=== PATIENT | male | born 1970 | race Caucasian/White ===

== ENCOUNTER 2020-01-05 16:53 | Emergency (ER) | payer OTHER, SELFPAY ==
[2020-01-05 17:39] VITALS: BP 151/90; PULSE 88; RESP 16; TEMP 36.8; O2SAT 100
[2020-01-05 17:59] VITALS: BP 151/90; PULSE 88; RESP 16; TEMP 36.8; O2SAT 100; BMI 43.7
--- NOTE | 2020-01-05 19:03 | XR_ITS ---
EXAMINATION: XR KNEE, RIGHT CLINICAL INFORMATION: Fall. COMPARISON: Right knee 05/31/2018 TECHNIQUE: Two views of the right knee. FINDINGS: No fracture. No dislocation. There is fullness in the suprapatellar area suggestive of a joint effusion. There is tricompartment degenerative change of joint narrowing and marginal bone spurs similar in severity to prior study of 05/31/2018. XR/XR knee RT 2V IMPRESSION: 1. No acute osseous abnormality. 2. Tricompartment degenerative joint disease. 3. Probable Joint effusion.
--- NOTE | 2020-01-05 19:03 | XR_ITS ---
EXAMINATION: XR ANKLE, RIGHT CLINICAL INFORMATION: Pain status post fall COMPARISON: None TECHNIQUE: AP, lateral, and mortise views of the right ankle. FINDINGS: The ankle mortise is intact. On the mortise view, there is a tiny triangular osseous fragment along the inferior aspect of the medial malleolus which may represent a tiny avulsion fracture, correlate with physical exam. No joint effusion. Small plantar calcaneal spur. XR/XR ankle RT min 3V IMPRESSION: Along the inferior aspect of the medial malleolus there is a tiny triangular osseous fragment which may be acute avulsion fragment versus a chronic change. Correlate with physical exam.
--- NOTE | 2020-01-05 19:03 | XR_ITS ---
EXAMINATION: XR KNEE, LEFT CLINICAL INFORMATION: Pain status post fall COMPARISON: 05/31/2018 TECHNIQUE: Two views of the left knee. FINDINGS: No displaced fracture. There aren't moderate to severe degenerative changes in the left knee. Severe cartilage space loss in the medial tibiofemoral compartment. Large bulky osteophytes in the patellofemoral compartment and medial compartment. There is tibial spine spurring. Suspect a suprapatellar effusion. XR/XR knee LT 2V IMPRESSION: Moderate to severe degenerative change in the left knee. No acute process.
--- NOTE | 2020-01-05 20:01 | ED.LOWEXIN ---
HPI - Extremity Injury (Lower) General Chief Complaint: Extremity Injury, Lower Stated Complaint: LEG SWELLING Time Seen by Provider: 01/05/20 19:03 Source: patient Mode of arrival: ambulatory Limitations: no limitations History of Present Illness HPI Narrative: states he had a mechanical fall about 1 week ago where he landed on both of his knees and since then he has had slightly more knee pain which he has chronic knee pain from arthritis as well he also has right ankle pain with slight swelling as well. States he has been walking on it but hurts to put weight on the right ankle. He otherwise denies any injury. States fall occurred due to a slip and fall. MD complaint: knee injury and ankle injury Onset (ago): day(s) Injury: Right: knee and ankle Place: home Severity: mild Relieving factors: immobilization Exacerbating factors: weight bearing and movement Context: fall Other symptoms: none Related Data Previous Rx's Medication Instructions Recorded lisinopril 30 mg tablet 30 mg PO DAILY 30 Days #30 tab 12/18/19 Allergies Allergy/AdvReac Type Severity Reaction Status Date / Time penicillamine Allergy Unknown Verified 10/22/19 00:00 penicillin V Allergy Unknown Verified 08/21/19 00:00 Penicillins [PENICILLINS] Allergy Unknown RASH Unverified 11/27/19 19:37 Review of Systems Review of Systems: Constitutional: No Weight loss, No Fever, No Chills, No Night Sweats, No Fatigue, No Malaise ENT/Mouth: No Hearing loss, No Ear Pain, No Nasal Congestion, No Sinus Pain, No Hoarseness, No sore throat, No Rhinorrhea, No Swallowing Difficulty Eyes: No Eye Pain, No Swelling, No Redness, No Foreign Body, No Discharge, No Vision Changes Cardiovascular: No Chest Pain, No SOB, No Dyspnea on Exertion, No Orthopnea, No Edema Respiratory: No Cough, No Sputum, No Wheezing, No Smoke Exposure, No Dyspnea Musculoskeletal: as noted Skin: No Skin Lesions, No rash Neuro: No Weakness, No Numbness, No Paresthesias, No Loss of Consciousness, No Dizziness, No Headache Psych: No Anxiety/Panic Heme/Lymph: No Bruising, No Bleeding,No Lymphadenopathy Endocrine: No Polyuria, No Polydipsia, No Temperature Intolerance Yes all other systems are reviewed and are negative PMFSH Past Medical History Attestation statement: The following information was validated with the patient. Medical History (Updated 10/26/20 @ 20:42 by Perry Alicia NP) BMI 40.0-44.9, adult Essential hypertension Morbid obesity due to excess calories Type 2 diabetes mellitus with hyperglycemia Social History Social History Smoking Status: Current some day smoker Substance Use Type: Marijuana Advance Directives: No Advance Directives Information Provided: No Physical Exam Vital Signs: Vital Signs: Vital Signs Temp Pulse Resp BP Pulse Ox 01/05/20 17:59 98.3 F 88 16 151/90 H 100 01/05/20 17:39 98.3 F 88 16 151/90 H 100 Body Mass Index 43.7 reviewed Const: General: cooperative and healthy appearing; No acute distress or intoxicated appearing Nutritional Appearance: average body habitus Orientation/consciousness: patient oriented x3 HENMT: Head: Yes normal to inspection Ears: hearing grossly normal bilaterally Eyes: General: appearance normal, both eyes and all related structures Visual Roblero: normal visual roblero by confrontation Neck: Neck: Yes normal visual inspection and No tender Thyroid: Thyroid normal Chest: Chest palpation & inspection: normal inspection of the chest Resp: Effort & Inspection: normal respiratory effort : General: Yes no CVA tenderness Back/Spine/Pelvis: Back: no CVA tenderness Skin: General skin exam: no rashes or lesions noted Neuro: General: patient oriented x3 Extrem: General: Yes normal to inspection Ankle/foot/toe images: 1. Slight tender palpation/swelling Course Course Course Narrative: has crutches at home declined agreeable to orthopedic boot will follow-up with orthopedics/ PCP for repeat x-ray of the right ankle. Discharge Plan Discharge Clinical Impression: Fall, Ankle fracture Patient Disposition: Home, Self-Care Additional Instructions: partial weight-bearing as tolerated Wear supportive boot as provided have repeat x-ray 3 primary care doctor or Orthopedics in 1 week of right ankle Follow-up with orthopedic as discussed Follow up with primary care doctor as discussed Return if any concerns or worsening symptoms Thank you Prescriptions: No Action lisinopril 30 mg tablet 30 mg PO DAILY 30 Days Qty: 30 RF: 0 Referrals: Marcelo Arroyo MD [Physician] - 1 week
== END 2020-01-05 20:56 | disposition home or self-care (01) ==
PROVIDERS: Emergency Provider Internal Medicine; PCP Internal Medicine
DX: S82.891A Other fracture of right lower leg, initial encounter for closed fracture (principal); M25.571 Pain in right ankle and joints of right foot; R60.0 Localized edema; W01.0XXA Fall on same level from slipping, tripping and stumbling without subsequent striking against object, initial encounter; Y93.9 Activity, unspecified; Y92.009 Unspecified place in unspecified non-institutional (private) residence as the place of occurrence of the external cause; Y99.9 Unspecified external cause status; Z79.899 Other long term (current) drug therapy; F17.200 Nicotine dependence, unspecified, uncomplicated; Z71.6 Tobacco abuse counseling; F12.90 Cannabis use, unspecified, uncomplicated
CPT/HCPCS: 73560; 73610; 99283

== ENCOUNTER → 2020-01-09 14:13 | Outpatient (BNVA) | payer OTHER, SELFPAY | PROVIDERS: PCP Internal Medicine; Referring Provider Internal Medicine; Visit Provider Nurse Practitioner Gerontology | DX: E11.65 Type 2 diabetes mellitus with hyperglycemia (principal); I10 Essential (primary) hypertension; E66.01 Morbid (severe) obesity due to excess calories; Z68.41 Body mass index [BMI] 40.0-44.9, adult; Z79.4 Long term (current) use of insulin | CPT/HCPCS: 99212 ==

== ENCOUNTER 2020-03-15 20:42 | Emergency (ER) | payer OTHER, SELFPAY ==
[2020-03-15 21:12] VITALS: BP 183/76; PULSE 95; RESP 18; TEMP 36.3; O2SAT 97
[2020-03-15 21:17] LABS: Glucose, Whole Blood 275 mg/dL (60-115)
[2020-03-15 21:24] VITALS: BP 183/76; PULSE 95; RESP 18; TEMP 36.3; O2SAT 97; BMI 41.8
[2020-03-15 21:39] LABS: Appearance Urine CLEAR; Color Urine YELLOW; Glucose Urine UA 500 MG/DL (NEG); Leukocyte Esterase Urine NEG (NEG); Nitrite Urine NEG (NEG); PH 7.5 (5.0-8.0); Urine Blood NEG (NEG); Urine Ketones NEG (NEG); Urine Protein NEG (NEG-TRACE)
--- NOTE | 2020-03-15 21:42 | ED_ITS ---
HPI - Psych General Chief Complaint: Psychiatric Symptoms Stated Complaint: crisis Time Seen by Provider: 03/15/20 21:24 Source: patient History of Present Illness HPI Narrative: This is a 49-year-old male who states that he has been living with his girlfriend for couple of years and she intermittently kicks him out. The last time she came out was today and he states that he does not want to live and states that he is suicidal and his plan would be to jump off of a bridge. Otherwise, he denies any, chills, GI symptoms, symptoms. Related Data Home Medications Medication Instructions Recorded Confirmed amlodipine 5 mg tablet 5 mg PO DAILY 01/09/20 03/15/20 atorvastatin 40 mg tablet 40 mg PO BEDTIME 01/09/20 03/15/20 escitalopram oxalate 20 mg tablet 20 mg PO DAILY 01/09/20 03/15/20 insulin glargine 100 unit/mL (3 30 unit SUBCUT DAILY ml 01/09/20 03/15/20 mL) subcutaneous pen lancets 28 gauge #100 ea 01/09/20 01/28/20 oxybutynin chloride 15 mg 15 mg PO DAILY 01/09/20 03/15/20 tablet,extended release 24 hr pen needle, diabetic 31 gauge x #50 ea 01/09/20 01/28/2005/25 Previous Rx's Medication Instructions Recorded blood sugar diagnostic #100 ea 01/09/20 dulaglutide 0.75 mg/0.5 mL 0.75 mg SUBCUT QWEEK #2 ml 01/09/20 subcutaneous pen injector metformin 1,000 mg tablet 1,000 mg PO BID #60 tab 01/09/20 hydroxyzine HCl 25 mg tablet 25 mg PO TID #90 tab 01/24/20 lisinopril 30 mg tablet 30 mg PO DAILY #30 tab 01/24/20 albuterol sulfate 90 mcg/actuation 2 puff INHALATION Q8H PRN 30 Days 01/28/20 aerosol inhaler #8.5 g tamsulosin 0.4 mg capsule 0.4 mg PO DAILY #30 cap 01/29/20 diclofenac sodium 1 % topical gel 2 g TOPICAL QID #100 g 02/17/20 lidocaine 5 % topical patch 2 patch TOPICAL Q12H PRN 30 Days 02/27/20 #60 ea tramadol 50 mg tablet 50 mg PO TID PRN 30 Days #90 tab 02/27/20 zolpidem 10 mg tablet 10 mg PO BEDTIME PRN 30 Days #30 02/27/20 tab Allergies Allergy/AdvReac Type Severity Reaction Status Date / Time Penicillins [PENICILLINS] Allergy Unknown RASH Verified 02/27/20 18:03 Review of Systems Review of Systems: Pertinent positives and negatives stated in HPI 10 point review of systems otherwise negative. [facility] Past Medical History Source: nursing notes reviewed Medical History Anxiety Arthritis Asthma Benign essential hypertension BPH (benign prostatic hyperplasia) Family history of thyroid disorder Insomnia Morbid obesity with BMI of 40.0-44.9, adult Overactive bladder Primary osteoarthritis of both knees Seizure Type 2 diabetes mellitus with hyperglycemia Surgical History No history of previous surgery Family History Family History Father ETOH abuse Mother Diabetes Arthritis of knee Hypertension Social History Social History Household Members: Significant Other Alcohol intake: former Smoking Status: Former smoker Smoked in Last 30 Days: No Use of substances other than those prescribed or required for medical reasons: Yes Substance Use Type: Marijuana Substance Use Frequency: Occasionally Advance Directives: No Physical Exam Vital Signs: Vital Signs: Last Vital Signs Temp 98.1 F 03/16/20 00:00 Pulse 83 03/16/20 00:00 Resp 18 03/16/20 06:00 BP 151/64 H 03/16/20 00:00 Pulse Ox 96 03/16/20 00:00 Body Mass Index 41.8 VITAL SIGNS: Reviewed. GENERAL: Well developed, well nourished, in no acute distress. LUNGS: Normal breath sounds. No adventitious sounds or accessory muscle use. SpO2<96> CARDIOVASCULAR: Regular rate and rhythm without noted murmurs, no JVD or lower extremity edema. ABDOMEN: Soft, non-tender, non-distended with bowel sounds. No rigidity. No guarding. No palpable masses or hernias noted NEUROLOGIC: Alert and oriented x 4. PSYCH: Normal affect, logical process Course Course Course Narrative: This is a 49-year-old male with history and clinical presentation consistent mild depression and thoughts suicidal ideation but felt that this might be situational. He is noted to be hyperglycemic and will evaluate for evidence of DKA or underlying infection. On review of all investigations there is no evidence of infection, DKA, or HHS. Patient is medically clear for further evaluation by the behavioral team. Behavioral health states that patient denying suicidal ideation if he is able to go to respite care. In addition, they plan to provide him with outpatient referrals to assist him in obtaining SSI. He has made no suicidal attempts in the past. Sign out to GHULAM Chauhan. MDM - Psych Restraints Face to Face Assessment: Face to Face Assessment: Current Situation: After assessment of the patient, a review of the pertinent medical record and a discussion with nursing staff, I feel the patient requires a restrain intervention. Reaction To: [] Medical Condition: [] Behavioral State: [] Continued Need: [] Lab Data Result diagrams: 03/15/20 22:38 03/15/20 22:38 Labs: Lab Results 03/15/20 03/15/20 03/15/20 Range/Units 21:08 21:19 21:33 WBC (4.8-10.8) X10*3/uL RBC (4.60-5.80) X10*6/uL Hgb (14.0-18.0) g/dl Hct (42-52) % MCV (80-98) fL MCH (27.0-33.0) pg MCHC (31.0-36.0) g/dl RDW (11.0-16.0) % Plt Count (160-400) X10*3/uL MPV (9.4-12.4) fL Immature Gran % (Auto) (0.0-0.4) % Neut % (Auto) (45-73) % Lymph % (Auto) (20-40) % [place] % (Auto) (2-11) % Eos % (Auto) (0-4) % Baso % (Auto) (0-2) % Lymph # (Auto) (1.2-4.9) X10*3/uL [place] # (Auto) (0.1-1.2) X10*3/uL Eos # (Auto) (0.0-0.4) X10*3/uL Baso # (Auto) (0.0-0.2) X10*3/uL Abs Immat Gran (auto) (0.00-0.03) X10*3/uL Absolute Neuts (auto) (2.0-8.3) X10*3/uL Absolute Nucleated RBC (0.0-0.012) X10*3/uL Nucleated RBC % (auto) (0.0-0.2) /100WBC Sodium (135-145) mmol/L Potassium (3.3-5.1) mmol/l Chloride (96-108) mmol/L Carbon Dioxide (22-29) mmol/L Anion Gap (12-20) BUN (9-16) mg/dL Creatinine (0.5-1.4) mg/dL Estim Creat Clear Calc Estimated GFR POC Glucose 275 H (60-115) mg/dL Random Glucose (60-115) mg/dL Calcium (8.4-10.2) mg/dL Total Bilirubin (0.0-1.0) mg/dL AST (5-37) U/L ALT (0-40) U/L Alkaline Phosphatase (39-117) U/L Total Protein (6.5-8.0) g/dL Albumin (3.5-5.0) g/dL Urine Color YELLOW Urine Appearance CLEAR Urine pH 7.5 (5.0-8.0) Ur Specific [place] 1.020 (1.005-1.025) Urine Protein NEG (NEG-TRACE) MG/DL Urine Glucose (UA) 500 H (NEG) MG/DL Urine Ketones NEG (NEG) MG/DL Urine Blood NEG (NEG) Urine Nitrite NEG (NEG) Ur Leukocyte Esterase NEG (NEG) Urine Opiates Screen Not Detected (Not Detect) Ur Barbiturates Screen Not Detected (Not Detect) Ur Phencyclidine Scrn Not Detected (Not Detect) Ur Amphetamines Screen Not Detected (Not Detect) U Benzodiazepines Scrn Not Detected (Not Detect) Urine Cocaine Screen Not Detected (Not Detect) U Marijuana (THC) Screen POSITIVE H (Not Detect) Acetone, Qual (Negative) COVID-19 (DG) (Negative) COVID-19 Clin Com 03/15/20 03/15/20 03/16/20 Range/Units 22:38 22:38 04:14 WBC 7.9 (4.8-10.8) X10*3/uL RBC 4.50 L (4.60-5.80) X10*6/uL Hgb 13.6 L (14.0-18.0) g/dl Hct 40.1 L (42-52) % MCV 89.1 (80-98) fL MCH 30.2 (27.0-33.0) pg MCHC 33.9 (31.0-36.0) g/dl RDW 11.9 (11.0-16.0) % Plt Count 276 (160-400) X10*3/uL MPV 10.2 (9.4-12.4) fL Immature Gran % (Auto) 0.4 (0.0-0.4) % Neut % (Auto) 81.3 H (45-73) % Lymph % (Auto) 11.9 L (20-40) % [place] % (Auto) 5.8 (2-11) % Eos % (Auto) 0.3 (0-4) % Baso % (Auto) 0.3 (0-2) % Lymph # (Auto) 0.9 L (1.2-4.9) X10*3/uL [place] # (Auto) 0.5 (0.1-1.2) X10*3/uL Eos # (Auto) 0.0 (0.0-0.4) X10*3/uL Baso # (Auto) 0.0 (0.0-0.2) X10*3/uL Abs Immat Gran (auto) 0.03 (0.00-0.03) X10*3/uL Absolute Neuts (auto) 6.4 (2.0-8.3) X10*3/uL Absolute Nucleated RBC 0.000 (0.0-0.012) X10*3/uL Nucleated RBC % (auto) 0.0 (0.0-0.2) /100WBC Sodium 135 (135-145) mmol/L Potassium 4.5 (3.3-5.1) mmol/l Chloride 101 (96-108) mmol/L Carbon Dioxide 29 (22-29) mmol/L Anion Gap 10 L (12-20) BUN 14 (9-16) mg/dL Creatinine 1.04 (0.5-1.4) mg/dL Estim Creat Clear Calc 123.7 Estimated GFR > 60 POC Glucose (60-115) mg/dL Random Glucose 270 H (60-115) mg/dL Calcium 9.2 (8.4-10.2) mg/dL Total Bilirubin 0.2 (0.0-1.0) mg/dL AST 39 H (5-37) U/L ALT 59 H (0-40) U/L Alkaline Phosphatase 84 (39-117) U/L Total Protein 6.9 (6.5-8.0) g/dL Albumin 4.0 (3.5-5.0) g/dL Urine Color Urine Appearance Urine pH (5.0-8.0) Ur Specific [place] (1.005-1.025) Urine Protein (NEG-TRACE) MG/DL Urine Glucose (UA) (NEG) MG/DL Urine Ketones (NEG) MG/DL Urine Blood (NEG) Urine Nitrite (NEG) Ur Leukocyte Esterase (NEG) Urine Opiates Screen (Not Detect) Ur Barbiturates Screen (Not Detect) Ur Phencyclidine Scrn (Not Detect) Ur Amphetamines Screen (Not Detect) U Benzodiazepines Scrn (Not Detect) Urine Cocaine Screen (Not Detect) U Marijuana (THC) Screen (Not Detect) Acetone, Qual Negative (Negative) COVID-19 (DG) Negative (Negative) COVID-19 Clin Com See Note Discharge Plan Discharge Prescriptions: No Action hydroxyzine HCl 25 mg tablet 25 mg PO TID Qty: 90 RF: 2 lisinopril 30 mg tablet 30 mg PO DAILY Qty: 30 RF: 2 tamsulosin 0.4 mg capsule 0.4 mg PO DAILY Qty: 30 RF: 3 diclofenac sodium [Arthritis Pain (diclofenac)] 1 % gel 2 g topical QID Qty: 100 RF: 3 albuterol sulfate 90 mcg/actuation HFA aerosol inhaler 2 puff inhalation Q8H PRN (Reason: bronchospasm) 30 Days Qty: 8.5 RF: 0 tramadol 50 mg tablet 50 mg PO TID PRN (Reason: pain) 30 Days Qty: 90 RF: 2 zolpidem 10 mg tablet 10 mg PO BEDTIME PRN (Reason: insomnia) 30 Days Qty: 30 RF: 2 lidocaine 5 % adhesive patch,medicated 2 patch topical Q12H PRN (Reason: pain) 30 Days Qty: 60 RF: 2 escitalopram oxalate 20 mg tablet 20 mg PO DAILY RF: 0 oxybutynin chloride 15 mg tablet extended release 24hr 15 mg PO DAILY RF: 0 (DME) lancets 28 gauge misc See Rx Instructions lancet topical TID Qty: 100 RF: 0 (DME) pen needle, diabetic 31 gauge x 3/16 needle See Rx Instructions ea subcut .MEDSUPPLY Qty: 50 RF: 0 atorvastatin 40 mg tablet 40 mg PO BEDTIME RF: 0 amlodipine 5 mg tablet 5 mg PO DAILY RF: 0 insulin glargine 100 unit/mL (3 mL) insulin pen 30 unit subcut DAILY RF: 0 dulaglutide 0.75 mg/0.5 mL pen injector 0.75 mg subcut QWEEK Qty: 2 RF: 3 (DME) FreeStyle Lite Strips Strip See Rx Instructions .ROUTE .MEDSUPPLY Qty: 100 RF: 11 metformin 1,000 mg tablet 1,000 mg PO BID Qty: 60 RF: 3
[2020-03-15 22:20] LABS: Amphetamine Screen Urine Not Detected (Not Detect); Barbiturates, Urine Not Detected (Not Detect); Benzodiazepines Screen Urine Not Detected (Not Detect); Cannabinoid Screen Urine POSITIVE (Not Detect); Cocaine Screen Urine Not Detected (Not Detect); Opiate Screen Urine Not Detected (Not Detect); Phencyclidine Screen Urine Not Detected (Not Detect)
[2020-03-15 22:51] LABS: Basophils Percent Auto 0.3 % (0-2); Eosinophils Percent Auto 0.3 % (0-4); Hematocrit 40.1 % (42-52); Hemoglobin 13.6 g/dl (14.0-18.0); Imm Gran Abs Auto 0.03 X10*3/uL (0.00-0.03); Imm Gran Pct Auto 0.4 % (0.0-0.4); Lymphocytes Absolute Auto 0.9 X10*3/uL (1.2-4.9); Lymphocytes Percent Auto 11.9 % (20-40); MANUAL DIFF FLAG NO; Mean Corpuscular HGB Conc 33.9 g/dl (31.0-36.0); Mean Corpuscular Hemoglobin 30.2 pg (27.0-33.0); Mean Corpuscular Volume 89.1 fL (80-98); Mean Platelet Volume 10.2 fL (9.4-12.4); Monocytes Absolute Auto 0.5 X10*3/uL (0.1-1.2); Monocytes Percent Auto 5.8 % (2-11); Neutrophils Absolute Auto 6.4 X10*3/uL (2.0-8.3); Neutrophils Percent Auto 81.3 % (45-73); Platelet Count 276 X10*3/uL (160-400); Red Cell Distribution Width 11.9 % (11.0-16.0); White Blood Count 7.9 X10*3/uL (4.8-10.8)
[2020-03-15 23:27] LABS: Alanine Aminotransferase 59 U/L (0-40); Alkaline Phosphatase 84 U/L (39-117); Anion Gap 10 (12-20); Aspartate Amino Transferase 39 U/L (5-37); Bilirubin Total 0.2 mg/dL (0.0-1.0); Blood Urea Nitrogen 14 mg/dL (9-16); Calcium 9.2 mg/dL (8.4-10.2); Carbon Dioxide 29 mmol/L (22-29); Chloride 101 mmol/L (96-108); Creatinine Clr Calc Pharmacy 123.7; Estimated Glomerular Filt Rate > 60; Glucose Random 270 mg/dL (60-115); Potassium 4.5 mmol/l (3.3-5.1); Sodium 135 mmol/L (135-145); Total Protein 6.9 g/dL (6.5-8.0)
--- NOTE | 2020-03-15 23:29 | PC.NURSE ---
MARIANNE faxed and called.
[2020-03-16] VITALS: BP 151/64; PULSE 83; RESP 18; TEMP 36.7; O2SAT 96
[2020-03-16 00:15] LABS: Acetone, serum QL Negative (Negative)
--- NOTE | 2020-03-16 02:22 | PC.NURSE ---
PT seen by MARIANNE. MARIANNE determined that this PT would be a good candidate for respite level of care. 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
[2020-03-16 04:35] LABS: COVID-19 Test Negative (Negative); IDNOW Serial# 9DD0AD1C
[2020-03-16 06:00] VITALS: RESP 18
--- NOTE | 2020-03-16 07:14 | PC.NURSE ---
Report recieved. PT currently sleeping, respirations even and unlabored, in no apparent distress. Pt to go to respite this morning.
[2020-03-16 09:05] LABS: Glucose, Whole Blood 245 mg/dL (60-115)
[2020-03-16 09:10] VITALS: BP 123/50; PULSE 77; RESP 18; TEMP 36.6; O2SAT 97
[2020-03-16] MEDS: Insulin Glargine,Hum.rec.anlog 100 UNIT/ML 10 ML VIAL 30 UNIT SUBCUT (09:22)
--- NOTE | 2020-03-16 09:50 | PC.NURSE ---
Per [facility] respite will not accept PT so PT will need to be re-assessed by [facility]. She also stated [place] and [place] been exposed to covid positive people.
[2020-03-16 09:55] VITALS: BP 123/50; PULSE 77
[2020-03-16] MEDS: lisinopriL 10 MG TABLET 30 MG PO (09:55)
[2020-03-16 09:56] VITALS: BP 123/50; PULSE 77
[2020-03-16] MEDS: amLODIPine Besylate 5 MG TABLET PO (09:56)
[2020-03-16] MEDS: metFORMIN HCl 1,000 MG TABLET 1000 MG PO (09:56)
[2020-03-16] MEDS: Escitalopram Oxalate 20 MG TABLET PO (09:56)
[2020-03-16] MEDS: hydrOXYzine HCL 25 MG TABLET PO (09:56)
[2020-03-16] MEDS: Tamsulosin HCL 0.4 MG CAPSULE PO (09:56)
== END 2020-03-16 15:41 | disposition home or self-care (01) ==
PROVIDERS: Emergency Provider Student in an Organized Health Care Education/Training Program
DX: F43.21 Adjustment disorder with depressed mood (principal); E11.65 Type 2 diabetes mellitus with hyperglycemia; Z20.828 Contact with and (suspected) exposure to other viral communicable diseases; I10 Essential (primary) hypertension; Z79.4 Long term (current) use of insulin; Z79.899 Other long term (current) drug therapy
CPT/HCPCS: 36415; 80053; 80307; 81003; 82009; 82947; 85025; 87635; 99285

== ENCOUNTER 2020-04-28 13:26 | Inpatient (IN) | payer OTHER, SELFPAY ==
[2020-04-28] VITALS (14 sets, daily range): BP systolic 133–197; BP diastolic 84–112; PULSE 95–176; RESP 12–20; TEMP 36.7–37.2; O2SAT 88–99; BMI 41.3
--- NOTE | 2020-04-28 | ECG_ITS ---
Test Reason : TACHYCARDIA Blood Pressure : / mmHG Vent. Rate : 159 BPM Atrial Rate : 174 BPM P-R Int : 000 ms QRS Dur : 088 ms QT Int : 294 ms P-R-T Axes : 000 070 -69 degrees QTc Int : 478 ms Atrial fibrillation with rapid ventricular response Possible Inferior infarct (cited on or before 10-NOV-2018) Abnormal ECG When compared with ECG of 28-APR-2020 13:53, Atrial fibrillation has replaced Sinus rhythm Vent. rate has increased BY [address] now depressed in Anterior leads Referred By: Alan Enriquez Electronically Signed By:Dwain Joseph
--- NOTE | ~2020-04-28 | XR_ITS ---
EXAMINATION: XR CHEST CLINICAL INFORMATION: Hyperglycemia COMPARISON: July 12, 2019 TECHNIQUE: 2 views of the chest were obtained. FINDINGS: No significant abnormality is noted involving the heart, lungs, mediastinum, bony thorax or soft tissues. XR/XR chest 2V IMPRESSION: No acute disease.
--- NOTE | 2020-04-28 13:44 | ECG_ITS ---
Test Reason : WEAKNESS Blood Pressure : / mmHG Vent. Rate : 098 BPM Atrial Rate : 098 BPM P-R Int : 136 ms QRS Dur : 098 ms QT Int : 336 ms P-R-T Axes : 009 047 -20 degrees QTc Int : 428 ms Normal sinus rhythm Cannot rule out Inferior infarct (cited on or before 10-NOV-2018) Abnormal ECG When compared with ECG of 12-JUL-2019 11:11, Sinus rhythm has replaced Atrial fibrillation ST no longer elevated in Lateral leads Referred By: Generic ED Physician Electronically Signed By:Dwain Joseph
[2020-04-28 13:59] LABS: Glucose, Whole Blood 595 mg/dL (60-115)
[2020-04-28] MEDS: 0.9 % Sodium Chloride 1,000 ML 999 ML IVCONT ×3 (14:11→17:25)
--- NOTE | 2020-04-28 14:16 | PC.NURSE ---
iv inserted, labs drawn, urine obtained, ekg performed, poc obtained, ivf hanging per order, monitor tech applied, pt nsr 90s, will continue to monitor.
[2020-04-28 14:20] LABS: Basophils Percent Auto 0.2 % (0-2); Hematocrit 43.8 % (42-52); Imm Gran Pct Auto 0.7 % (0.0-0.4); MANUAL DIFF FLAG SCAN; Mean Corpuscular HGB Conc 34.2 g/dl (31.0-36.0); Mean Corpuscular Hemoglobin 29.9 pg (27.0-33.0); Mean Corpuscular Volume 87.4 fL (80-98); Mean Platelet Volume 10.2 fL (9.4-12.4); Monocytes Absolute Auto 1.6 X10*3/uL (0.1-1.2); Monocytes Percent Auto 10.2 % (2-11); Neutrophils Absolute Auto 11.7 X10*3/uL (2.0-8.3); Neutrophils Percent Auto 75.9 % (45-73); Platelet Count 358 X10*3/uL (160-400); Red Blood Count 5.01 X10*6/uL (4.60-5.80); Red Cell Distribution Width 12.2 % (11.0-16.0); SCAN SMEAR FLAG 1; White Blood Count 15.4 X10*3/uL (4.8-10.8)
[2020-04-28 14:22] LABS: Glucose Urine UA >=1000 MG/DL (NEG); Leukocyte Esterase Urine NEG (NEG); Nitrite Urine NEG (NEG); PH 5.5 (5.0-8.0); Specific Gravity - Urine 1.015 (1.005-1.025); Urine Blood 2+ (NEG); Urine Ketones NEG (NEG); Urine Protein NEG (NEG-TRACE)
[2020-04-28 14:27] LABS: Appearance Urine CLEAR; Color Urine STRAW
[2020-04-28 14:35] LABS: RBC Urine 0-2 /HPF (0); WBC Urine 0-2 /HPF (0-4)
[2020-04-28 14:41] LABS: SLIDE REVIEW VERIFIED
[2020-04-28 14:48] LABS: Acetone, serum QL Negative (Negative); Ethanol < 10 mg/dL
[2020-04-28 14:50] LABS: Amphetamine Screen Urine Not Detected (Not Detect); Anion Gap 19 (12-20); Barbiturates, Urine Not Detected (Not Detect); Benzodiazepines Screen Urine Not Detected (Not Detect); Blood Urea Nitrogen 32 mg/dL (9-16); Calcium 9.6 mg/dL (8.4-10.2); Cannabinoid Screen Urine Not Detected (Not Detect); Carbon Dioxide 21 mmol/L (22-29); Chloride 92 mmol/L (96-108); Cocaine Screen Urine Not Detected (Not Detect); Creatinine Clr Calc Pharmacy 61.1; Estimated Glomerular Filt Rate 34; Glucose Random 607 mg/dL (60-115); Opiate Screen Urine POSITIVE (Not Detect); Phencyclidine Screen Urine Not Detected (Not Detect); Potassium 5.5 mmol/L (3.3-5.1); Sodium 126 mmol/L (135-145)
[2020-04-28 14:55] LABS: Troponin-I High Sensitivity 34.2 ng/L (<3.5-35.0)
[2020-04-28 14:56] LABS: Alanine Aminotransferase 54 U/L (0-40); Albumin Level 4.6 g/dL (3.5-5.0); Alkaline Phosphatase 101 U/L (39-117); Aspartate Amino Transferase 50 U/L (5-37); Bilirubin Direct 0.3 mg/dL (0.0-0.5); Bilirubin Total 0.8 mg/dL (0.0-1.0); Magnesium 2.4 mg/dL (1.6-2.6); Total Protein 7.8 g/dL (6.5-8.0)
[2020-04-28] MEDS: Insulin Regular, Human 100 UNIT/ML 3 ML VIAL 10 UNIT IVPUSH (15:13)
--- NOTE | 2020-04-28 15:19 | PC.NURSE ---
patient medicated per order, pt requesting food, will ask provider, vss, pt nsr on cardiac rehab nurse, will continue to monitor.
--- NOTE | 2020-04-28 15:42 | ED_ITS ---
HPI - Recheck/Abnormal Lab/Rx General Chief Complaint: General Medical <GHULAM Roa - Last Filed: 04/28/20 21:11> Stated Complaint: HIGH BLOOD SUGAR <GHULAM Roa - Last Filed: 04/28/20 21:11> Time Seen by Provider: 04/28/20 13:50 <GHULAM Roa - Last Filed: 04/28/20 21:11> Source: patient and EMS <GHULAM Roa Last Filed: 04/28/20 21:11> Mode of arrival: EMS <GHULAM Roa Last Filed: 04/28/20 21:11> Limitations: other (Poor historian and somnolence although easily arousable) <GHULAM Roa Last Filed: 04/28/20 21:11> History of Present Illness HPI narrative: 49-year-old male with a past medical history of diabetes type 2 currently on metformin b.i.d. and insulin, hypertension, seizure disorder, morbid obesity, asthma, insomnia, overactive bladder and arthritis presenting to the ED via EMS with complaints of generalized not feeling well with diaphoresis and excessive thirst today. Reports that he is currently homeless and he was waiting for a friend at the [facility] and they noticed that he was diaphoretic and c alled EMS. When EMS arrived they obtained a POC which was 503 and brought him here for further evaluation treatment. On exam patient is noted to be diaphoretic and somnolent although easily arousable. Reports that he has not slept in over 4 days and that is why he is so somnolent. Denies head injury or loss of consciousness. Denies any dizziness, headaches, nausea/vomiting, jaw pain, cough, sore throat, chest pain, shortness of breath, palpitations, paresthesias, abdominal pain, diarrhea, constipation, dysuria or hematuria or or any other symptoms complaints or concerns at this time. <GHULAM Roa - Last Filed: 04/28/20 21:11> MD complaint: abnormal lab (glucose ) <GHULAM Roa Last Filed: 04/28/20 21:11> Initial visit (ago): hour(s) (blade boner ) <GHULAM Roa Last Filed: 04/28/20 21:11> Related Data Home Medications: Home Medications Medication Instructions Recorded Confirmed amlodipine 5 mg tablet 5 mg PO DAILY 01/09/20 04/28/20 escitalopram oxalate 20 mg tablet 20 mg PO DAILY 01/09/20 04/28/20 insulin glargine 100 unit/mL (3 30 unit SUBCUT DAILY ml 01/09/20 04/28/20 mL) subcutaneous pen lancets 28 gauge #100 ea 01/09/20 01/28/20 pen needle, diabetic 31 gauge x #50 ea 01/09/20 01/28/2005/25 apixaban [Eliquis] 5 mg PO BID 04/28/20 04/28/20 buspirone 30 mg PO TID 04/28/20 04/28/20 diclofenac sodium 2 ea TOPICAL BID PRN 04/28/20 04/28/20 hydroxyzine HCl 25 mg PO TID PRN 04/28/20 04/28/20 lidocaine 2 patch TOPICAL DAILY PRN 04/28/20 04/28/20 metoprolol tartrate 50 mg PO BID 04/28/20 04/28/20 quetiapine 50 mg PO BEDTIME 04/28/20 04/28/20 Previous Rx's Medication Instructions Recorded blood sugar diagnostic #100 ea 01/09/20 dulaglutide 0.75 mg/0.5 mL 0.75 mg SUBCUT QWEEK #2 ml 01/09/20 subcutaneous pen injector metformin 1,000 mg tablet 1,000 mg PO BID #60 tab 01/09/20 lisinopril 30 mg tablet 30 mg PO DAILY #30 tab 01/24/20 tamsulosin 0.4 mg capsule 0.4 mg PO DAILY #30 cap 01/29/20 tramadol 50 mg tablet 50 mg PO TID PRN 30 Days #90 tab 02/27/20 albuterol sulfate 90 mcg/actuation 2 puff PO Q8H PRN 30 Days #8.5 g 03/19/20 aerosol inhaler zolpidem 10 mg tablet 10 mg PO BEDTIME PRN 30 Days #30 04/07/20 tab <GHULAM Roa - Last Filed: 04/28/20 21:11> Allergies/Adverse Reactions: Allergies Allergy/AdvReac Type Severity Reaction Status Date / Time Penicillins [PENICILLINS] Allergy Unknown RASH Verified 04/07/20 15:31 <GHULAM Roa - Last Filed: 04/28/20 21:11> Review of Systems Review of Systems: Constitutional : + diaphoresis, No Weight loss, No Fever, No Chills, No Night Sweats, No Fatigue, No Malaise ENT/Mouth : No Hearing loss, No Ear Pain, No Nasal Congestion, No Sinus Pain, No Hoarseness, No sore throat, No Rhinorrhea, No Swallowing Difficulty Eyes: No Eye Pain, No Swelling, No Redness, No Foreign Body, No Discharge, No Vision Changes Cardiovascular : No Chest Pain, No SOB, No Dyspnea on Exertion, No Orthopnea, No Edema, No Palpitations Respiratory : No Cough, No Sputum, No Wheezing, No Smoke Exposure, No Dyspnea Gastrointestinal : No Nausea, No Vomiting, No Diarrhea, No Constipation, No abdominal Pain, No Hematochezia, No Melena Genitourinary : + Urinary Frequency/urgency, no irregular bleeding, No Dysuria, No Hematuria, No Urinary Incontinence, No Flank Pain, No Urinary Flow Changes, No Hesitancy Musculoskeletal : No joint pain, No Myalgias, No Joint Swelling Skin : No Skin Lesions, No rash Neuro : + Gen Weakness, No Focal weakness, No Numbness, No Paresthesias, No Loss of Consciousness, No Dizziness, No Headache Psych : No Anxiety/Panic, No Depression, No SI/HI/AH/VH, No Social Issues, Heme/Lymph: No Bruising, No Bleeding,No Lymphadenopathy Endocrine : + Polyuria, + Polydipsia, No Temperature Intolerance <GHULAM Roa - Last Filed: 04/28/20 21:11> Yes all other systems are reviewed and are negative <GHULAM Roa - Last Filed: 04/28/20 21:11> [facility] Past Medical History Attestation statement: The following information was validated with the patient. <GHULAM Roa - Last Filed: 04/28/20 21:11> Medical History: Medical History Anxiety Arthritis Asthma Benign essential hypertension BPH (benign prostatic hyperplasia) Depression Diabetes Family history of thyroid disorder Insomnia Morbid obesity with BMI of 40.0-44.9, adult Overactive bladder Primary osteoarthritis of both knees Seizure Type 2 diabetes mellitus with hyperglycemia <GHULAM Roa - Last Filed: 04/28/20 21:11> Surgical History: Surgical History No history of previous surgery <GHULAM Roa - Last Filed: 04/28/20 21:11> Family History Family History: Family History Father ETOH abuse Mother Diabetes Arthritis of knee Hypertension <GHULAM Roa - Last Filed: 04/28/20 21:11> Social History Social History: Social History Household Members: Significant Other Alcohol intake: never Smoking Status: Never smoker Use of substances other than those prescribed or required for medical reasons: Yes Substance Use Type: Marijuana Last Used Substance: Days (ago) Advance Directives: No Advance Directives Information Provided: No service: No Current occupational status: unemployed <GHULAM Roa - Last Filed: 04/28/20 21:11> Physical Exam Vital Signs: Vital Signs: Last Vital Signs Temp 99.0 F 04/28/20 21:21 Pulse 176 H 04/28/20 22:24 Resp 18 04/28/20 22:24 BP 186/112 H 04/28/20 22:24 Pulse Ox 88 L 04/28/20 22:24 Body Mass Index 41.3 Vital signs have been reviewed as normal and appeared to be correct. Blood pressure hypertensive at 152/91. Heart rate tachycardic. Respiration rate normal. Temperature normal. Oxygen saturation normal. <GHULAM Roa - Last Filed: 04/28/20 21:11> Vital Signs: Last Vital Signs Temp 99.0 F 04/28/20 21:21 Pulse 176 H 04/28/20 22:24 Resp 18 04/28/20 22:24 BP 186/112 H 04/28/20 22:24 Pulse Ox 88 L 04/28/20 22:24 Body Mass Index 41.3 <Yemi Moody MD - Last Filed: 04/28/20 22:25> Appearance: Somnolence although easily arousable. Oriented X3. No acute distress. Head: Normal external exam. Normocephalic. Atraumatic. Able to rotate head bilaterally. Eyes: PERRLA. EOMI. No nystagmus noted. Conjunctiva and sclera normal. Eyelids normal. Corneal reflex normal. ENT: EAC normal. TM's Normal. Hearing normal. Pharynx normal. Uvula midline. tongue midline. Moist mucous membranes. No trismus noted. No drooling noted. No muffled voice noted. No nystagmus noted. Neck: Normal inspection. Neck supple. FROM. No adenopathy. Trachea midline. Thyroid Normal. No meningeal signs. No neck mass noted. CVS: Normal heart rate and rhythm. Heart sound normal. No murmurs noted. Pulses normal throughout. Respiratory: No respiratory distress. Painless inspiration. Breath sounds normal. No wheezes/rales/rhonchi noted. Chest nontender. No accessory muscle usage noted or decreased air movement noted. Abdomen: Soft and nontender. Bowel sounds normal in all 4 quadrants. No distention noted. No organomegaly noted. No visible injury noted. Back: No CVA tenderness. Full range of motion noted. Skin: Skin warm and dry. Normal skin color. Normal skin turgor. No rashes/lesions/lacerations noted. Extremities: No lower extremity edema. Extremities exhibit normal range of motion. Extremities nontender. Able to shrug shoulders bilaterally and keep up against resistance. Neuro: Oriented X 3. No motor deficit. No sensory deficit. Reflexes normal. Moving all extremities. No focal motor deficits. Cranial nerves II-XI intact bilaterally. Facial strength normal. Normal cognition. Speech normal. Gait normal. Strength 5/5 throughout. No pronator drift. No tremor noted. No fasciculations noted. No rigidity noted. Muscle tone normal throughout. No asterixis noted. [id number]-[id number] test normal. Heel to castro test normal. Tandem gait normal. Does not sway with eyes open. Romberg test negative. Rapid alternating movement upper extremity normal. Rapid alternating movement lower extremity normal. Hand drop from overhead Misses face. NIHSS score 0. <GHULAM Roa - Last Filed: 04/28/20 21:11> Course Course Course Narrative: 14pm - 49-year-old male with a past medical history of diabetes type 2 currently on metformin b.i.d. and insulin, hypertension, seizure disorder, morbid obesity, asthma, insomnia, overactive bladder and arthritis who is currently homeless presenting to the ED via EMS with complaints of generalized not feeling well wit h diaphoresis, excessive thirst and hyperglycemia at 05:03. - on exam patient is somnolent although easily arousable and otherwise alert and oriented x3. Not in any acute distress. Patient is hypertensive and tachycardic at 152/91 and 102 for a pulse. Otherwise all other vitals are within normal limits. Nontoxic appearing. - Concern for DKA vs HHS vs hyperglycemia vs electrolyte abnormality vs dehydration Plan: Labs, CXR, EKG, blood cultures, lactic acid. Provide a L of IV fluids and re-evaluate. <GHULAM Roa - Last Filed: 04/28/20 21:11> Reevaluation(s) Reevaluation #1: - Lab reveals leukocytosis/lactic acidosis secondary to anti diabetics (Metformin) meds as well as acute kidney injury and findings consistent with dehydration with rhabdo. I do not suspect infection at this time. - UA within normal limits no evidence of UTI. - chest x-ray within normal limits no evidence of pneumonia or any other acute processes noted. - EKG normal sinus rhythm no acute ischemic changes noted and similar when compared to prior EKGs on 07/12/2019 and 04/18/2019. - patient receiving 3 L of IV fluids, 10 mg of insulin plan is to admit for hyperglycemia/dehydration/MIRANDA. I discussed this patient with Cheryl Garduno the hospitalist and she is sepsis admission. Patient understands agrees the plan. - patient also requesting for case management/social work to help with housing when he is discharged. Therefore case management consult placed at this time. <GHULAM Roa - Last Filed: 04/28/20 21:11> Patient lunchroom monitor showed heart rate of 159 beats per minute EKG done showed AFib will give IV Cardizem 20 mg and and started on Cardizem drip hospitalist informed <Yemi Moody MD - Last Filed: 04/28/20 22:25> Time: 17:15 <GHULAM Roa - Last Filed: 04/28/20 21:11> 22:24 <Yemi Moody MD - Last Filed: 04/28/20 22:25> Reevaluation #2: - repeat chemistry all improved including sodium/BUN/creatinine/glucose and lactic acid - patient is positive for COVID. <GHULAM Roa - Last Filed: 04/28/20 21:11> Time: 20:38 <GHULAM Roa - Last Filed: 04/28/20 21:11> MDM - Recheck/Abnormal Lab/Rx Medical Records Attestation: I reviewed the patient's medical records. <GHULAM Roa - Last Filed: 04/28/20 21:11> Lab Data Attestation: I reviewed the patient's lab results. <GHULAM Roa - Last Filed: 04/28/20 21:11> Result diagrams: : 04/28/20 14:10 04/28/20 18:56 <GHULAM Roa - Last Filed: 04/28/20 21:11> Labs: Lab Results 04/28/20 04/28/20 04/28/20 Range/Units 13:51 14:10 14:10 WBC 15.4 H (4.8-10.8) X10*3/uL RBC 5.01 (4.60-5.80) X10*6/uL Hgb 15.0 (14.0-18.0) g/dl Hct 43.8 (42-52) % MCV 87.4 (80-98) fL MCH 29.9 (27.0-33.0) pg MCHC 34.2 (31.0-36.0) g/dl RDW 12.2 (11.0-16.0) % Plt Count 358 D (160-400) X10*3/uL MPV 10.2 (9.4-12.4) fL Immature Gran % (Auto) 0.7 H (0.0-0.4) % Neut % (Auto) 75.9 H (45-73) % Lymph % (Auto) 13.0 L (20-40) % Floyd % (Auto) 10.2 (2-11) % Eos % (Auto) 0.0 (0-4) % Baso % (Auto) 0.2 (0-2) % Lymph # (Auto) 2.0 (1.2-4.9) X10*3/uL Floyd # (Auto) 1.6 H (0.1-1.2) X10*3/uL Eos # (Auto) 0.0 (0.0-0.4) X10*3/uL Baso # (Auto) 0.0 (0.0-0.2) X10*3/uL Abs Immat Gran (auto) 0.10 H (0.00-0.03) X10*3/uL Absolute Neuts (auto) 11.7 H (2.0-8.3) X10*3/uL Absolute Nucleated RBC 0.000 (0.0-0.012) X10*3/uL Nucleated RBC % (auto) 0.0 (0.0-0.2) /100WBC Smear Tech's Comments VERIFIED PT (10.8-13.0) SEC INR (0.9-1.1) D-Dimer NG/ML Hold Blue Top Sodium 126 L (135-145) mmol/L Potassium 5.5 H (3.3-5.1) mmol/L Chloride 92 L (96-108) mmol/L Carbon Dioxide 21 L (22-29) mmol/L Anion Gap 19 (12-20) BUN 32 H D (9-16) mg/dL Creatinine 2.09 H (0.5-1.4) mg/dL Estim Creat Clear Calc 61.1 Estimated GFR 34 POC Glucose 595 H* (60-115) mg/dL Random Glucose 607 H* (60-115) mg/dL Lactic Acid (0.5-2.0) mmol/L Lactic Acid Fup @ 2Hr (0.5-2.0) mmol/L Calcium 9.6 (8.4-10.2) mg/dL Magnesium Total Bilirubin Direct Bilirubin AST ALT Alkaline Phosphatase Total Creatine Kinase (38-174) U/L Troponin I High Sens (<3.5-35.0) ng/L Total Protein Albumin Urine Color Urine Appearance Urine pH (5.0-8.0) Ur Specific [place] (1.005-1.025) Urine Protein (NEG-TRACE) MG/DL Urine Glucose (UA) (NEG) MG/DL Urine Ketones (NEG) MG/DL Urine Blood (NEG) Urine Nitrite (NEG) Ur Leukocyte Esterase (NEG) Urine RBC (0) /HPF Urine WBC (0-4) /HPF Ur Squamous Epith Cells /LPF Urine Bacteria /LPF Urine Opiates Screen (Not Detect) Ur Barbiturates Screen (Not Detect) Ur Phencyclidine Scrn (Not Detect) Ur Amphetamines Screen (Not Detect) U Benzodiazepines Scrn (Not Detect) Urine Cocaine Screen (Not Detect) U Marijuana (THC) Screen (Not Detect) Ethyl Alcohol mg/dL Acetone, Qual Coronavirus (PCR) (Negative) Influenza Type A (PCR) (Negative) Influenza Type B (PCR) (Negative) RSV RNA Qual (PCR) (Negative) 04/28/20 04/28/20 04/28/20 Range/Units 14:10 14:10 14:10 WBC (4.8-10.8) X10*3/uL RBC (4.60-5.80) X10*6/uL Hgb (14.0-18.0) g/dl Hct (42-52) % MCV (80-98) fL MCH (27.0-33.0) pg MCHC (31.0-36.0) g/dl RDW (11.0-16.0) % Plt Count (160-400) X10*3/uL MPV (9.4-12.4) fL Immature Gran % (Auto) (0.0-0.4) % Neut % (Auto) (45-73) % Lymph % (Auto) (20-40) % Floyd % (Auto) (2-11) % Eos % (Auto) (0-4) % Baso % (Auto) (0-2) % Lymph # (Auto) (1.2-4.9) X10*3/uL [place] # (Auto) (0.1-1.2) X10*3/uL Eos # (Auto) (0.0-0.4) X10*3/uL Baso # (Auto) (0.0-0.2) X10*3/uL Abs Immat Gran (auto) (0.00-0.03) X10*3/uL Absolute Neuts (auto) (2.0-8.3) X10*3/uL Absolute Nucleated RBC (0.0-0.012) X10*3/uL Nucleated RBC % (auto) (0.0-0.2) /100WBC Smear Tech's Comments PT (10.8-13.0) SEC INR (0.9-1.1) D-Dimer NG/ML Hold Blue Top Sodium (135-145) mmol/L Potassium (3.3-5.1) mmol/L Chloride (96-108) mmol/L Carbon Dioxide (22-29) mmol/L Anion Gap (12-20) BUN (9-16) mg/dL Creatinine (0.5-1.4) mg/dL Estim Creat Clear Calc Estimated GFR POC Glucose (60-115) mg/dL Random Glucose (60-115) mg/dL Lactic Acid (0.5-2.0) mmol/L Lactic Acid Fup @ 2Hr (0.5-2.0) mmol/L Calcium (8.4-10.2) mg/dL Magnesium Cancelled 2.4 Total Bilirubin Cancelled 0.8 Direct Bilirubin Cancelled 0.3 AST Cancelled 50 H ALT Cancelled 54 H Alkaline Phosphatase Cancelled 101 D Total Creatine Kinase 2713 H (38-174) U/L Troponin I High Sens 34.2 (<3.5-35.0) ng/L Total Protein Cancelled 7.8 Albumin Cancelled 4.6 Urine Color Urine Appearance Urine pH (5.0-8.0) Ur Specific [place] (1.005-1.025) Urine Protein (NEG-TRACE) MG/DL Urine Glucose (UA) (NEG) MG/DL Urine Ketones (NEG) MG/DL Urine Blood (NEG) Urine Nitrite (NEG) Ur Leukocyte Esterase (NEG) Urine RBC (0) /HPF Urine WBC (0-4) /HPF Ur Squamous Epith Cells /LPF Urine Bacteria /LPF Urine Opiates Screen (Not Detect) Ur Barbiturates Screen (Not Detect) Ur Phencyclidine Scrn (Not Detect) Ur Amphetamines Screen (Not Detect) U Benzodiazepines Scrn (Not Detect) Urine Cocaine Screen (Not Detect) U Marijuana (THC) Screen (Not Detect) Ethyl Alcohol mg/dL Acetone, Qual Cancelled Negative Coronavirus (PCR) (Negative) Influenza Type A (PCR) (Negative) Influenza Type B (PCR) (Negative) RSV RNA Qual (PCR) (Negative) 04/28/20 04/28/20 04/28/20 Range/Units 14:10 14:10 14:10 WBC (4.8-10.8) X10*3/uL RBC (4.60-5.80) X10*6/uL Hgb (14.0-18.0) g/dl Hct (42-52) % MCV (80-98) fL MCH (27.0-33.0) pg MCHC (31.0-36.0) g/dl RDW (11.0-16.0) % Plt Count (160-400) X10*3/uL MPV (9.4-12.4) fL Immature Gran % (Auto) (0.0-0.4) % Neut % (Auto) (45-73) % Lymph % (Auto) (20-40) % Floyd % (Auto) (2-11) % Eos % (Auto) (0-4) % Baso % (Auto) (0-2) % Lymph # (Auto) (1.2-4.9) X10*3/uL Floyd # (Auto) (0.1-1.2) X10*3/uL Eos # (Auto) (0.0-0.4) X10*3/uL Baso # (Auto) (0.0-0.2) X10*3/uL Abs Immat Gran (auto) (0.00-0.03) X10*3/uL Absolute Neuts (auto) (2.0-8.3) X10*3/uL Absolute Nucleated RBC (0.0-0.012) X10*3/uL Nucleated RBC % (auto) (0.0-0.2) /100WBC Smear Tech's Comments PT (10.8-13.0) SEC INR (0.9-1.1) D-Dimer NG/ML Hold Blue Top Sodium (135-145) mmol/L Potassium (3.3-5.1) mmol/L Chloride (96-108) mmol/L Carbon Dioxide (22-29) mmol/L Anion Gap (12-20) BUN (9-16) mg/dL Creatinine (0.5-1.4) mg/dL Estim Creat Clear Calc Estimated GFR POC Glucose (60-115) mg/dL Random Glucose (60-115) mg/dL Lactic Acid (0.5-2.0) mmol/L Lactic Acid Fup @ 2Hr (0.5-2.0) mmol/L Calcium (8.4-10.2) mg/dL Magnesium Total Bilirubin Direct Bilirubin AST ALT Alkaline Phosphatase Total Creatine Kinase (38-174) U/L Troponin I High Sens (<3.5-35.0) ng/L Total Protein Albumin Urine Color STRAW Urine Appearance CLEAR Urine pH 5.5 (5.0-8.0) Ur Specific [place] 1.015 (1.005-1.025) Urine Protein NEG (NEG-TRACE) MG/DL Urine Glucose (UA) >=1000 H (NEG) MG/DL Urine Ketones NEG (NEG) MG/DL Urine Blood 2+ H (NEG) Urine Nitrite NEG (NEG) Ur Leukocyte Esterase NEG (NEG) Urine RBC 0-2 (0) /HPF Urine WBC 0-2 (0-4) /HPF Ur Squamous Epith Cells NONE /LPF Urine Bacteria NONE /LPF Urine Opiates Screen POSITIVE H (Not Detect) Ur Barbiturates Screen Not Detected (Not Detect) Ur Phencyclidine Scrn Not Detected (Not Detect) Ur Amphetamines Screen Not Detected (Not Detect) U Benzodiazepines Scrn Not Detected (Not Detect) Urine Cocaine Screen Not Detected (Not Detect) U Marijuana (THC) Screen Not Detected (Not Detect) Ethyl Alcohol < 10 mg/dL Acetone, Qual Coronavirus (PCR) (Negative) Influenza Type A (PCR) (Negative) Influenza Type B (PCR) (Negative) RSV RNA Qual (PCR) (Negative) 04/28/20 04/28/20 04/28/20 Range/Units 15:55 15:55 15:55 WBC (4.8-10.8) X10*3/uL RBC (4.60-5.80) X10*6/uL Hgb (14.0-18.0) g/dl Hct (42-52) % MCV (80-98) fL MCH (27.0-33.0) pg MCHC (31.0-36.0) g/dl RDW (11.0-16.0) % Plt Count (160-400) X10*3/uL MPV (9.4-12.4) fL Immature Gran % (Auto) (0.0-0.4) % Neut % (Auto) (45-73) % Lymph % (Auto) (20-40) % [place] % (Auto) (2-11) % Eos % (Auto) (0-4) % Baso % (Auto) (0-2) % Lymph # (Auto) (1.2-4.9) X10*3/uL [place] # (Auto) (0.1-1.2) X10*3/uL Eos # (Auto) (0.0-0.4) X10*3/uL Baso # (Auto) (0.0-0.2) X10*3/uL Abs Immat Gran (auto) (0.00-0.03) X10*3/uL Absolute Neuts (auto) (2.0-8.3) X10*3/uL Absolute Nucleated RBC (0.0-0.012) X10*3/uL Nucleated RBC % (auto) (0.0-0.2) /100WBC Smear Tech's Comments PT (10.8-13.0) SEC INR (0.9-1.1) D-Dimer NG/ML Hold Blue Top Sodium (135-145) mmol/L Potassium (3.3-5.1) mmol/L Chloride (96-108) mmol/L Carbon Dioxide (22-29) mmol/L Anion Gap (12-20) BUN (9-16) mg/dL Creatinine (0.5-1.4) mg/dL Estim Creat Clear Calc Estimated GFR POC Glucose (60-115) mg/dL Random Glucose (60-115) mg/dL Lactic Acid 3.4 H* (0.5-2.0) mmol/L Lactic Acid Fup @ 2Hr (0.5-2.0) mmol/L Calcium (8.4-10.2) mg/dL Magnesium Total Bilirubin Direct Bilirubin AST ALT Alkaline Phosphatase Total Creatine Kinase (38-174) U/L Troponin I High Sens 33.7 (<3.5-35.0) ng/L Total Protein Albumin Urine Color Urine Appearance Urine pH (5.0-8.0) Ur Specific [place] (1.005-1.025) Urine Protein (NEG-TRACE) MG/DL Urine Glucose (UA) (NEG) MG/DL Urine Ketones (NEG) MG/DL Urine Blood (NEG) Urine Nitrite (NEG) Ur Leukocyte Esterase (NEG) Urine RBC (0) /HPF Urine WBC (0-4) /HPF Ur Squamous Epith Cells /LPF Urine Bacteria /LPF Urine Opiates Screen (Not Detect) Ur Barbiturates Screen (Not Detect) Ur Phencyclidine Scrn (Not Detect) Ur Amphetamines Screen (Not Detect) U Benzodiazepines Scrn (Not Detect) Urine Cocaine Screen (Not Detect) U Marijuana (THC) Screen (Not Detect) Ethyl Alcohol mg/dL Acetone, Qual Coronavirus (PCR) POSITIVE A (Negative) Influenza Type A (PCR) NEGATIVE (Negative) Influenza Type B (PCR) NEGATIVE (Negative) RSV RNA Qual (PCR) NEGATIVE (Negative) 04/28/20 04/28/20 04/28/20 Range/Units 17:24 18:56 18:56 WBC (4.8-10.8) X10*3/uL RBC (4.60-5.80) X10*6/uL Hgb (14.0-18.0) g/dl Hct (42-52) % MCV (80-98) fL MCH (27.0-33.0) pg MCHC (31.0-36.0) g/dl RDW (11.0-16.0) % Plt Count (160-400) X10*3/uL MPV (9.4-12.4) fL Immature Gran % (Auto) (0.0-0.4) % Neut % (Auto) (45-73) % Lymph % (Auto) (20-40) % [place] % (Auto) (2-11) % Eos % (Auto) (0-4) % Baso % (Auto) (0-2) % Lymph # (Auto) (1.2-4.9) X10*3/uL [place] # (Auto) (0.1-1.2) X10*3/uL Eos # (Auto) (0.0-0.4) X10*3/uL Baso # (Auto) (0.0-0.2) X10*3/uL Abs Immat Gran (auto) (0.00-0.03) X10*3/uL Absolute Neuts (auto) (2.0-8.3) X10*3/uL Absolute Nucleated RBC (0.0-0.012) X10*3/uL Nucleated RBC % (auto) (0.0-0.2) /100WBC Smear Tech's Comments PT (10.8-13.0) SEC INR (0.9-1.1) D-Dimer NG/ML Hold Blue Top Sodium 132 L (135-145) mmol/L Potassium 4.4 (3.3-5.1) mmol/L Chloride 99 (96-108) mmol/L Carbon Dioxide 23 (22-29) mmol/L Anion Gap 14 (12-20) BUN 25 H (9-16) mg/dL Creatinine 1.39 (0.5-1.4) mg/dL Estim Creat Clear Calc 91.8 Estimated GFR 55 POC Glucose 252 H (60-115) mg/dL Random Glucose 258 H D (60-115) mg/dL Lactic Acid (0.5-2.0) mmol/L Lactic Acid Fup @ 2Hr 1.8 (0.5-2.0) mmol/L Calcium 8.8 D (8.4-10.2) mg/dL Magnesium Total Bilirubin Direct Bilirubin AST ALT Alkaline Phosphatase Total Creatine Kinase (38-174) U/L Troponin I High Sens (<3.5-35.0) ng/L Total Protein Albumin Urine Color Urine Appearance Urine pH (5.0-8.0) Ur Specific [place] (1.005-1.025) Urine Protein (NEG-TRACE) MG/DL Urine Glucose (UA) (NEG) MG/DL Urine Ketones (NEG) MG/DL Urine Blood (NEG) Urine Nitrite (NEG) Ur Leukocyte Esterase (NEG) Urine RBC (0) /HPF Urine WBC (0-4) /HPF Ur Squamous Epith Cells /LPF Urine Bacteria /LPF Urine Opiates Screen (Not Detect) Ur Barbiturates Screen (Not Detect) Ur Phencyclidine Scrn (Not Detect) Ur Amphetamines Screen (Not Detect) U Benzodiazepines Scrn (Not Detect) Urine Cocaine Screen (Not Detect) U Marijuana (THC) Screen (Not Detect) Ethyl Alcohol mg/dL Acetone, Qual Coronavirus (PCR) (Negative) Influenza Type A (PCR) (Negative) Influenza Type B (PCR) (Negative) RSV RNA Qual (PCR) (Negative) 04/28/20 Range/Units 20:01 WBC (4.8-10.8) X10*3/uL RBC (4.60-5.80) X10*6/uL Hgb (14.0-18.0) g/dl Hct (42-52) % MCV (80-98) fL MCH (27.0-33.0) pg MCHC (31.0-36.0) g/dl RDW (11.0-16.0) % Plt Count (160-400) X10*3/uL MPV (9.4-12.4) fL Immature Gran % (Auto) (0.0-0.4) % Neut % (Auto) (45-73) % Lymph % (Auto) (20-40) % [place] % (Auto) (2-11) % Eos % (Auto) (0-4) % Baso % (Auto) (0-2) % Lymph # (Auto) (1.2-4.9) X10*3/uL [place] # (Auto) (0.1-1.2) X10*3/uL Eos # (Auto) (0.0-0.4) X10*3/uL Baso # (Auto) (0.0-0.2) X10*3/uL Abs Immat Gran (auto) (0.00-0.03) X10*3/uL Absolute Neuts (auto) (2.0-8.3) X10*3/uL Absolute Nucleated RBC (0.0-0.012) X10*3/uL Nucleated RBC % (auto) (0.0-0.2) /100WBC Smear Tech's Comments PT 12.4 (10.8-13.0) SEC INR 1.0 (0.9-1.1) D-Dimer < 200 NG/ML Hold Blue Top Cancelled Sodium (135-145) mmol/L Potassium (3.3-5.1) mmol/L Chloride (96-108) mmol/L Carbon Dioxide (22-29) mmol/L Anion Gap (12-20) BUN (9-16) mg/dL Creatinine (0.5-1.4) mg/dL Estim Creat Clear Calc Estimated GFR POC Glucose (60-115) mg/dL Random Glucose (60-115) mg/dL Lactic Acid (0.5-2.0) mmol/L Lactic Acid Fup @ 2Hr (0.5-2.0) mmol/L Calcium (8.4-10.2) mg/dL Magnesium Total Bilirubin Direct Bilirubin AST ALT Alkaline Phosphatase Total Creatine Kinase (38-174) U/L Troponin I High Sens (<3.5-35.0) ng/L Total Protein Albumin Urine Color Urine Appearance Urine pH (5.0-8.0) Ur Specific [place] (1.005-1.025) Urine Protein (NEG-TRACE) MG/DL Urine Glucose (UA) (NEG) MG/DL Urine Ketones (NEG) MG/DL Urine Blood (NEG) Urine Nitrite (NEG) Ur Leukocyte Esterase (NEG) Urine RBC (0) /HPF Urine WBC (0-4) /HPF Ur Squamous Epith Cells /LPF Urine Bacteria /LPF Urine Opiates Screen (Not Detect) Ur Barbiturates Screen (Not Detect) Ur Phencyclidine Scrn (Not Detect) Ur Amphetamines Screen (Not Detect) U Benzodiazepines Scrn (Not Detect) Urine Cocaine Screen (Not Detect) U Marijuana (THC) Screen (Not Detect) Ethyl Alcohol mg/dL Acetone, Qual Coronavirus (PCR) (Negative) Influenza Type A (PCR) (Negative) Influenza Type B (PCR) (Negative) RSV RNA Qual (PCR) (Negative) <GHULAM Roa - Last Filed: 04/28/20 21:11> Lab Results 04/28/20 04/28/20 04/28/20 Range/Units 13:51 14:10 14:10 WBC 15.4 H (4.8-10.8) X10*3/uL RBC 5.01 (4.60-5.80) X10*6/uL Hgb 15.0 (14.0-18.0) g/dl Hct 43.8 (42-52) % MCV 87.4 (80-98) fL MCH 29.9 (27.0-33.0) pg MCHC 34.2 (31.0-36.0) g/dl RDW 12.2 (11.0-16.0) % Plt Count 358 D (160-400) X10*3/uL MPV 10.2 (9.4-12.4) fL Immature Gran % (Auto) 0.7 H (0.0-0.4) % Neut % (Auto) 75.9 H (45-73) % Lymph % (Auto) 13.0 L (20-40) % [place] % (Auto) 10.2 (2-11) % Eos % (Auto) 0.0 (0-4) % Baso % (Auto) 0.2 (0-2) % Lymph # (Auto) 2.0 (1.2-4.9) X10*3/uL [place] # (Auto) 1.6 H (0.1-1.2) X10*3/uL Eos # (Auto) 0.0 (0.0-0.4) X10*3/uL Baso # (Auto) 0.0 (0.0-0.2) X10*3/uL Abs Immat Gran (auto) 0.10 H (0.00-0.03) X10*3/uL Absolute Neuts (auto) 11.7 H (2.0-8.3) X10*3/uL Absolute Nucleated RBC 0.000 (0.0-0.012) X10*3/uL Nucleated RBC % (auto) 0.0 (0.0-0.2) /100WBC Smear Tech's Comments VERIFIED PT (10.8-13.0) SEC INR (0.9-1.1) D-Dimer NG/ML Hold Blue Top Sodium 126 L (135-145) mmol/L Potassium 5.5 H (3.3-5.1) mmol/L Chloride 92 L (96-108) mmol/L Carbon Dioxide 21 L (22-29) mmol/L Anion Gap 19 (12-20) BUN 32 H D (9-16) mg/dL Creatinine 2.09 H (0.5-1.4) mg/dL Estim Creat Clear Calc 61.1 Estimated GFR 34 POC Glucose 595 H* (60-115) mg/dL Random Glucose 607 H* (60-115) mg/dL Lactic Acid (0.5-2.0) mmol/L Lactic Acid Fup @ 2Hr (0.5-2.0) mmol/L Calcium 9.6 (8.4-10.2) mg/dL Magnesium Total Bilirubin Direct Bilirubin AST ALT Alkaline Phosphatase Total Creatine Kinase (38-174) U/L Troponin I High Sens (<3.5-35.0) ng/L Total Protein Albumin Urine Color Urine Appearance Urine pH (5.0-8.0) Ur Specific [place] (1.005-1.025) Urine Protein (NEG-TRACE) MG/DL Urine Glucose (UA) (NEG) MG/DL Urine Ketones (NEG) MG/DL Urine Blood (NEG) Urine Nitrite (NEG) Ur Leukocyte Esterase (NEG) Urine RBC (0) /HPF Urine WBC (0-4) /HPF Ur Squamous Epith Cells /LPF Urine Bacteria /LPF Urine Opiates Screen (Not Detect) Ur Barbiturates Screen (Not Detect) Ur Phencyclidine Scrn (Not Detect) Ur Amphetamines Screen (Not Detect) U Benzodiazepines Scrn (Not Detect) Urine Cocaine Screen (Not Detect) U Marijuana (THC) Screen (Not Detect) Ethyl Alcohol mg/dL Acetone, Qual Coronavirus (PCR) (Negative) Influenza Type A (PCR) (Negative) Influenza Type B (PCR) (Negative) RSV RNA Qual (PCR) (Negative) 04/28/20 04/28/20 04/28/20 Range/Units 14:10 14:10 14:10 WBC (4.8-10.8) X10*3/uL RBC (4.60-5.80) X10*6/uL Hgb (14.0-18.0) g/dl Hct (42-52) % MCV (80-98) fL MCH (27.0-33.0) pg MCHC (31.0-36.0) g/dl RDW (11.0-16.0) % Plt Count (160-400) X10*3/uL MPV (9.4-12.4) fL Immature Gran % (Auto) (0.0-0.4) % Neut % (Auto) (45-73) % Lymph % (Auto) (20-40) % [place] % (Auto) (2-11) % Eos % (Auto) (0-4) % Baso % (Auto) (0-2) % Lymph # (Auto) (1.2-4.9) X10*3/uL [place] # (Auto) (0.1-1.2) X10*3/uL Eos # (Auto) (0.0-0.4) X10*3/uL Baso # (Auto) (0.0-0.2) X10*3/uL Abs Immat Gran (auto) (0.00-0.03) X10*3/uL Absolute Neuts (auto) (2.0-8.3) X10*3/uL Absolute Nucleated RBC (0.0-0.012) X10*3/uL Nucleated RBC % (auto) (0.0-0.2) /100WBC Smear Tech's Comments PT (10.8-13.0) SEC INR (0.9-1.1) D-Dimer NG/ML Hold Blue Top Sodium (135-145) mmol/L Potassium (3.3-5.1) mmol/L Chloride (96-108) mmol/L Carbon Dioxide (22-29) mmol/L Anion Gap (12-20) BUN (9-16) mg/dL Creatinine (0.5-1.4) mg/dL Estim Creat Clear Calc Estimated GFR POC Glucose (60-115) mg/dL Random Glucose (60-115) mg/dL Lactic Acid (0.5-2.0) mmol/L Lactic Acid Fup @ 2Hr (0.5-2.0) mmol/L Calcium (8.4-10.2) mg/dL Magnesium Cancelled 2.4 Total Bilirubin Cancelled 0.8 Direct Bilirubin Cancelled 0.3 AST Cancelled 50 H ALT Cancelled 54 H Alkaline Phosphatase Cancelled 101 D Total Creatine Kinase 2713 H (38-174) U/L Troponin I High Sens 34.2 (<3.5-35.0) ng/L Total Protein Cancelled 7.8 Albumin Cancelled 4.6 Urine Color Urine Appearance Urine pH (5.0-8.0) Ur Specific [place] (1.005-1.025) Urine Protein (NEG-TRACE) MG/DL Urine Glucose (UA) (NEG) MG/DL Urine Ketones (NEG) MG/DL Urine Blood (NEG) Urine Nitrite (NEG) Ur Leukocyte Esterase (NEG) Urine RBC (0) /HPF Urine WBC (0-4) /HPF Ur Squamous Epith Cells /LPF Urine Bacteria /LPF Urine Opiates Screen (Not Detect) Ur Barbiturates Screen (Not Detect) Ur Phencyclidine Scrn (Not Detect) Ur Amphetamines Screen (Not Detect) U Benzodiazepines Scrn (Not Detect) Urine Cocaine Screen (Not Detect) U Marijuana (THC) Screen (Not Detect) Ethyl Alcohol mg/dL Acetone, Qual Cancelled Negative Coronavirus (PCR) (Negative) Influenza Type A (PCR) (Negative) Influenza Type B (PCR) (Negative) RSV RNA Qual (PCR) (Negative) 04/28/20 04/28/20 04/28/20 Range/Units 14:10 14:10 14:10 WBC (4.8-10.8) X10*3/uL RBC (4.60-5.80) X10*6/uL Hgb (14.0-18.0) g/dl Hct (42-52) % MCV (80-98) fL MCH (27.0-33.0) pg MCHC (31.0-36.0) g/dl RDW (11.0-16.0) % Plt Count (160-400) X10*3/uL MPV (9.4-12.4) fL Immature Gran % (Auto) (0.0-0.4) % Neut % (Auto) (45-73) % Lymph % (Auto) (20-40) % [place] % (Auto) (2-11) % Eos % (Auto) (0-4) % Baso % (Auto) (0-2) % Lymph # (Auto) (1.2-4.9) X10*3/uL [place] # (Auto) (0.1-1.2) X10*3/uL Eos # (Auto) (0.0-0.4) X10*3/uL Baso # (Auto) (0.0-0.2) X10*3/uL Abs Immat Gran (auto) (0.00-0.03) X10*3/uL Absolute Neuts (auto) (2.0-8.3) X10*3/uL Absolute Nucleated RBC (0.0-0.012) X10*3/uL Nucleated RBC % (auto) (0.0-0.2) /100WBC Smear Tech's Comments PT (10.8-13.0) SEC INR (0.9-1.1) D-Dimer NG/ML Hold Blue Top Sodium (135-145) mmol/L Potassium (3.3-5.1) mmol/L Chloride (96-108) mmol/L Carbon Dioxide (22-29) mmol/L Anion Gap (12-20) BUN (9-16) mg/dL Creatinine (0.5-1.4) mg/dL Estim Creat Clear Calc Estimated GFR POC Glucose (60-115) mg/dL Random Glucose (60-115) mg/dL Lactic Acid (0.5-2.0) mmol/L Lactic Acid Fup @ 2Hr (0.5-2.0) mmol/L Calcium (8.4-10.2) mg/dL Magnesium Total Bilirubin Direct Bilirubin AST ALT Alkaline Phosphatase Total Creatine Kinase (38-174) U/L Troponin I High Sens (<3.5-35.0) ng/L Total Protein Albumin Urine Color STRAW Urine Appearance CLEAR Urine pH 5.5 (5.0-8.0) Ur Specific [place] 1.015 (1.005-1.025) Urine Protein NEG (NEG-TRACE) MG/DL Urine Glucose (UA) >=1000 H (NEG) MG/DL Urine Ketones NEG (NEG) MG/DL Urine Blood 2+ H (NEG) Urine Nitrite NEG (NEG) Ur Leukocyte Esterase NEG (NEG) Urine RBC 0-2 (0) /HPF Urine WBC 0-2 (0-4) /HPF Ur Squamous Epith Cells NONE /LPF Urine Bacteria NONE /LPF Urine Opiates Screen POSITIVE H (Not Detect) Ur Barbiturates Screen Not Detected (Not Detect) Ur Phencyclidine Scrn Not Detected (Not Detect) Ur Amphetamines Screen Not Detected (Not Detect) U Benzodiazepines Scrn Not Detected (Not Detect) Urine Cocaine Screen Not Detected (Not Detect) U Marijuana (THC) Screen Not Detected (Not Detect) Ethyl Alcohol < 10 mg/dL Acetone, Qual Coronavirus (PCR) (Negative) Influenza Type A (PCR) (Negative) Influenza Type B (PCR) (Negative) RSV RNA Qual (PCR) (Negative) 04/28/20 04/28/20 04/28/20 Range/Units 15:55 15:55 15:55 WBC (4.8-10.8) X10*3/uL RBC (4.60-5.80) X10*6/uL Hgb (14.0-18.0) g/dl Hct (42-52) % MCV (80-98) fL MCH (27.0-33.0) pg MCHC (31.0-36.0) g/dl RDW (11.0-16.0) % Plt Count (160-400) X10*3/uL MPV (9.4-12.4) fL Immature Gran % (Auto) (0.0-0.4) % Neut % (Auto) (45-73) % Lymph % (Auto) (20-40) % [place] % (Auto) (2-11) % Eos % (Auto) (0-4) % Baso % (Auto) (0-2) % Lymph # (Auto) (1.2-4.9) X10*3/uL [place] # (Auto) (0.1-1.2) X10*3/uL Eos # (Auto) (0.0-0.4) X10*3/uL Baso # (Auto) (0.0-0.2) X10*3/uL Abs Immat Gran (auto) (0.00-0.03) X10*3/uL Absolute Neuts (auto) (2.0-8.3) X10*3/uL Absolute Nucleated RBC (0.0-0.012) X10*3/uL Nucleated RBC % (auto) (0.0-0.2) /100WBC Smear Tech's Comments PT (10.8-13.0) SEC INR (0.9-1.1) D-Dimer NG/ML Hold Blue Top Sodium (135-145) mmol/L Potassium (3.3-5.1) mmol/L Chloride (96-108) mmol/L Carbon Dioxide (22-29) mmol/L Anion Gap (12-20) BUN (9-16) mg/dL Creatinine (0.5-1.4) mg/dL Estim Creat Clear Calc Estimated GFR POC Glucose (60-115) mg/dL Random Glucose (60-115) mg/dL Lactic Acid 3.4 H* (0.5-2.0) mmol/L Lactic Acid Fup @ 2Hr (0.5-2.0) mmol/L Calcium (8.4-10.2) mg/dL Magnesium Total Bilirubin Direct Bilirubin AST ALT Alkaline Phosphatase Total Creatine Kinase (38-174) U/L Troponin I High Sens 33.7 (<3.5-35.0) ng/L Total Protein Albumin Urine Color Urine Appearance Urine pH (5.0-8.0) Ur Specific [place] (1.005-1.025) Urine Protein (NEG-TRACE) MG/DL Urine Glucose (UA) (NEG) MG/DL Urine Ketones (NEG) MG/DL Urine Blood (NEG) Urine Nitrite (NEG) Ur Leukocyte Esterase (NEG) Urine RBC (0) /HPF Urine WBC (0-4) /HPF Ur Squamous Epith Cells /LPF Urine Bacteria /LPF Urine Opiates Screen (Not Detect) Ur Barbiturates Screen (Not Detect) Ur Phencyclidine Scrn (Not Detect) Ur Amphetamines Screen (Not Detect) U Benzodiazepines Scrn (Not Detect) Urine Cocaine Screen (Not Detect) U Marijuana (THC) Screen (Not Detect) Ethyl Alcohol mg/dL Acetone, Qual Coronavirus (PCR) POSITIVE A (Negative) Influenza Type A (PCR) NEGATIVE (Negative) Influenza Type B (PCR) NEGATIVE (Negative) RSV RNA Qual (PCR) NEGATIVE (Negative) 04/28/20 04/28/20 04/28/20 Range/Units 17:24 18:56 18:56 WBC (4.8-10.8) X10*3/uL RBC (4.60-5.80) X10*6/uL Hgb (14.0-18.0) g/dl Hct (42-52) % MCV (80-98) fL MCH (27.0-33.0) pg MCHC (31.0-36.0) g/dl RDW (11.0-16.0) % Plt Count (160-400) X10*3/uL MPV (9.4-12.4) fL Immature Gran % (Auto) (0.0-0.4) % Neut % (Auto) (45-73) % Lymph % (Auto) (20-40) % [place] % (Auto) (2-11) % Eos % (Auto) (0-4) % Baso % (Auto) (0-2) % Lymph # (Auto) (1.2-4.9) X10*3/uL [place] # (Auto) (0.1-1.2) X10*3/uL Eos # (Auto) (0.0-0.4) X10*3/uL Baso # (Auto) (0.0-0.2) X10*3/uL Abs Immat Gran (auto) (0.00-0.03) X10*3/uL Absolute Neuts (auto) (2.0-8.3) X10*3/uL Absolute Nucleated RBC (0.0-0.012) X10*3/uL Nucleated RBC % (auto) (0.0-0.2) /100WBC Smear Tech's Comments PT (10.8-13.0) SEC INR (0.9-1.1) D-Dimer NG/ML Hold Blue Top Sodium 132 L (135-145) mmol/L Potassium 4.4 (3.3-5.1) mmol/L Chloride 99 (96-108) mmol/L Carbon Dioxide 23 (22-29) mmol/L Anion Gap 14 (12-20) BUN 25 H (9-16) mg/dL Creatinine 1.39 (0.5-1.4) mg/dL Estim Creat Clear Calc 91.8 Estimated GFR 55 POC Glucose 252 H (60-115) mg/dL Random Glucose 258 H D (60-115) mg/dL Lactic Acid (0.5-2.0) mmol/L Lactic Acid Fup @ 2Hr 1.8 (0.5-2.0) mmol/L Calcium 8.8 D (8.4-10.2) mg/dL Magnesium Total Bilirubin Direct Bilirubin AST ALT Alkaline Phosphatase Total Creatine Kinase (38-174) U/L Troponin I High Sens (<3.5-35.0) ng/L Total Protein Albumin Urine Color Urine Appearance Urine pH (5.0-8.0) Ur Specific [place] (1.005-1.025) Urine Protein (NEG-TRACE) MG/DL Urine Glucose (UA) (NEG) MG/DL Urine Ketones (NEG) MG/DL Urine Blood (NEG) Urine Nitrite (NEG) Ur Leukocyte Esterase (NEG) Urine RBC (0) /HPF Urine WBC (0-4) /HPF Ur Squamous Epith Cells /LPF Urine Bacteria /LPF Urine Opiates Screen (Not Detect) Ur Barbiturates Screen (Not Detect) Ur Phencyclidine Scrn (Not Detect) Ur Amphetamines Screen (Not Detect) U Benzodiazepines Scrn (Not Detect) Urine Cocaine Screen (Not Detect) U Marijuana (THC) Screen (Not Detect) Ethyl Alcohol mg/dL Acetone, Qual Coronavirus (PCR) (Negative) Influenza Type A (PCR) (Negative) Influenza Type B (PCR) (Negative) RSV RNA Qual (PCR) (Negative) 04/28/20 Range/Units 20:01 WBC (4.8-10.8) X10*3/uL RBC (4.60-5.80) X10*6/uL Hgb (14.0-18.0) g/dl Hct (42-52) % MCV (80-98) fL MCH (27.0-33.0) pg MCHC (31.0-36.0) g/dl RDW (11.0-16.0) % Plt Count (160-400) X10*3/uL MPV (9.4-12.4) fL Immature Gran % (Auto) (0.0-0.4) % Neut % (Auto) (45-73) % Lymph % (Auto) (20-40) % [place] % (Auto) (2-11) % Eos % (Auto) (0-4) % Baso % (Auto) (0-2) % Lymph # (Auto) (1.2-4.9) X10*3/uL [place] # (Auto) (0.1-1.2) X10*3/uL Eos # (Auto) (0.0-0.4) X10*3/uL Baso # (Auto) (0.0-0.2) X10*3/uL Abs Immat Gran (auto) (0.00-0.03) X10*3/uL Absolute Neuts (auto) (2.0-8.3) X10*3/uL Absolute Nucleated RBC (0.0-0.012) X10*3/uL Nucleated RBC % (auto) (0.0-0.2) /100WBC Smear Tech's Comments PT 12.4 (10.8-13.0) SEC INR 1.0 (0.9-1.1) D-Dimer < 200 NG/ML Hold Blue Top Cancelled Sodium (135-145) mmol/L Potassium (3.3-5.1) mmol/L Chloride (96-108) mmol/L Carbon Dioxide (22-29) mmol/L Anion Gap (12-20) BUN (9-16) mg/dL Creatinine (0.5-1.4) mg/dL Estim Creat Clear Calc Estimated GFR POC Glucose (60-115) mg/dL Random Glucose (60-115) mg/dL Lactic Acid (0.5-2.0) mmol/L Lactic Acid Fup @ 2Hr (0.5-2.0) mmol/L Calcium (8.4-10.2) mg/dL Magnesium Total Bilirubin Direct Bilirubin AST ALT Alkaline Phosphatase Total Creatine Kinase (38-174) U/L Troponin I High Sens (<3.5-35.0) ng/L Total Protein Albumin Urine Color Urine Appearance Urine pH (5.0-8.0) Ur Specific [place] (1.005-1.025) Urine Protein (NEG-TRACE) MG/DL Urine Glucose (UA) (NEG) MG/DL Urine Ketones (NEG) MG/DL Urine Blood (NEG) Urine Nitrite (NEG) Ur Leukocyte Esterase (NEG) Urine RBC (0) /HPF Urine WBC (0-4) /HPF Ur Squamous Epith Cells /LPF Urine Bacteria /LPF Urine Opiates Screen (Not Detect) Ur Barbiturates Screen (Not Detect) Ur Phencyclidine Scrn (Not Detect) Ur Amphetamines Screen (Not Detect) U Benzodiazepines Scrn (Not Detect) Urine Cocaine Screen (Not Detect) U Marijuana (THC) Screen (Not Detect) Ethyl Alcohol mg/dL Acetone, Qual Coronavirus (PCR) (Negative) Influenza Type A (PCR) (Negative) Influenza Type B (PCR) (Negative) RSV RNA Qual (PCR) (Negative) <Yemi Moody MD - Last Filed: 04/28/20 22:25> Imaging Data Chest x-ray: Attestation: I personally reviewed and interpreted this imaging study as follows: <GHULAM Roa - Last Filed: 04/28/20 21:11> Radiologist's impression: FINDINGS: No significant abnormality is noted involving the heart, lungs, mediastinum, bony thorax or soft tissues. XR/XR chest 2V IMPRESSION: No acute disease. <GHULAM Roa - Last Filed: 04/28/20 21:11> ECG Data Attestation: I personally reviewed and interpreted this ECG as follows: <GHULAM Roa - Last Filed: 04/28/20 21:11> ECG interpretation date: 04/28/20 <GHULAM Roa - Last Filed: 04/28/20 21:11> ECG interpretation time: 13:53 <GHULAM Roa - Last Filed: 04/28/20 21:11> Interpretation: Normal sinus rhythm with ventricular rate of [address] changes similar compared to prior EKG on 07/12/2019 and 09/29/2019 no acute ischemic changes noted today. <GHULAM Roa - Last Filed: 04/28/20 21:11> Critical Care Time Critical Care Time Critical Care Time: Yes <GHULAM Roa - Last Filed: 04/28/20 21:11> Total Critical Care Time: 60 <GHULAM Roa - Last Filed: 04/28/20 21:11> Attestation: I personally attest to this time spent taking care of the patient <GHULAM Roa - Last Filed: 04/28/20 21:11> Discharge Plan Discharge Clinical Impression: Dehydration, Acute renal failure due to rhabdomyolysis, COVID-19 <GHULAM Roa - Last Filed: 04/28/20 21:11> Patient Disposition: Admitted As Inpatient <GHULAM Roa Last Filed: 04/28/20 21:11>
--- NOTE | 2020-04-28 16:01 | PC.NURSE ---
patient a&ox3, speaking in algerian on phone-tearful while speaking on phone, labs drawn, covid swab performed, pt given po with provider ok, will continue to monitor.
[2020-04-28 16:33] LABS: Lactic Acid 3.4 mmol/L (0.5-2.0)
[2020-04-28 16:34] LABS: Troponin-I High Sensitivity 33.7 ng/L (<3.5-35.0)
--- NOTE | 2020-04-28 17:32 | PC.NURSE ---
patient a&ox3, poc obtained, vitals stable, pt sinus tach low 100s on long term care pharmacist- occasional pvcs, ivf hung per order, will continue to monitor.
[2020-04-28 17:37] LABS: Glucose, Whole Blood 252 mg/dL (60-115)
[2020-04-28 18:02] LABS: Reflex Lactate? Lactic Acid Added
[2020-04-28 18:23] LABS: Influenza A PCR NEGATIVE (Negative); Influenza B PCR NEGATIVE (Negative); Resp Syncy Virus RNA Qual PCR NEGATIVE (Negative); SARS COV2 PCR INHOUSE POSITIVE (Negative)
--- NOTE | 2020-04-28 18:57 | PC.NURSE ---
labs drawn per order, pt currently eating dinner and watching tv, will continue to monitor.
[2020-04-28 19:27] LABS: ~Lactic Acid-LAB USE ONLY 1.8 mmol/L (0.5-2.0)
[2020-04-28 19:31] LABS: Anion Gap 14 (12-20); Blood Urea Nitrogen 25 mg/dL (9-16); Calcium 8.8 mg/dL (8.4-10.2); Carbon Dioxide 23 mmol/L (22-29); Chloride 99 mmol/L (96-108); Creatinine Clr Calc Pharmacy 91.8; Estimated Glomerular Filt Rate 55; Glucose Random 258 mg/dL (60-115); Potassium 4.4 mmol/L (3.3-5.1); Sodium 132 mmol/L (135-145)
--- NOTE | 2020-04-28 20:02 | PC.NURSE ---
patient a&ox3, lab obtained, vss, nsr 90s on telemetry monitor, pt currently watching tv, pt refuses hospital attire at this time, will continue to monitor.
[2020-04-28 20:21] LABS: Prothrombin Time 12.4 SEC (10.8-13.0)
--- NOTE | 2020-04-28 20:22 | P.HPHOSP_ITS ---
History of Present Illness Date of Service: 04/28/20 Chief Complaint: Generalized weakness 49-year-old male with a past medical history of hypertension, hyperlipidemia, diabetes, anxiety, depression, asthma, BPH, osteoarthritis, AFib on Eliquis presented to the hospital with a chief complaint of generalized weakness. Patient is a poor historian heparin most of the history obtained from the ER staff and records. Reportedly patient appeared somnolent and was sweaty while waiting for his friend at the urgent care; patient was noted to be diaphoretic and noted somnolent; subsequently sent to the hospital for further evaluation. Patient denied any chest pain palpitations lightheadedness dizziness. Denies Fever chills cough; mentions that he uses cannabis. ER course: Per ER team patient noted to have hyponatremia, hyperkalemia, MIRANDA. COVID-19 positive but not hypoxic chest x-ray showed no acute findings. Patient fingerstick glucose was elevated to 6 100s. Patient was given couple L of normal saline. Patient's sodium improved from 126-132 in the ER. Reportedly patient is also homeless-admitted to the hospital for further management. [facility] Medical History Anxiety Arthritis Asthma Benign essential hypertension BPH (benign prostatic hyperplasia) Depression Diabetes Family history of thyroid disorder Insomnia Morbid obesity with BMI of 40.0-44.9, adult Overactive bladder Primary osteoarthritis of both knees Seizure Type 2 diabetes mellitus with hyperglycemia Family History Father ETOH abuse Mother Diabetes Arthritis of knee Hypertension Surgical History No history of previous surgery Social History Household Members: Significant Other Alcohol intake: never Smoking Status: Never smoker Use of substances other than those prescribed or required for medical reasons: Yes Substance Use Type: Marijuana Last Used Substance: Days (ago) Advance Directives: No Advance Directives Information Provided: No service: No Current occupational status: unemployed Meds Allergies Allergy/AdvReac Type Severity Reaction Status Date / Time Penicillins [PENICILLINS] Allergy Unknown RASH Verified 04/07/20 15:31 Active Medications: Current Medications Generic Name Dose Route Start Last Admin Trade Name Freq PRN Reason Stop Dose Admin Acetaminophen 650 mg 04/28/20 20:15 Acetaminophen Supp 650 Mg Supp.Rect OH Q6H PRN Pain, Mild (Pain Scale 1-3) Amlodipine Besylate 5 mg 04/29/20 09:00 Amlodipine Besylate 5 Mg Tablet PO DAILY [facility] Protocol Apixaban 5 mg 04/28/20 21:00 Apixaban 5 Mg Tablet PO BID [facility] Buspirone HCl 30 mg 04/28/20 21:00 Buspirone Hcl 10 Mg Tablet PO BID [facility] Docusate Sodium 100 mg 04/28/20 20:15 Docusate Sodium 100 Mg Capsule PO DAILY PRN Constipation Escitalopram Oxalate 20 mg 04/29/20 09:00 Escitalopram Oxalate 20 Mg Tablet PO DAILY [facility] Sodium Chloride 1,000 mls @ 100 mls/hr 04/28/20 20:15 Ns IVCONT .Q10H [facility] Insulin Human Lispro 0 unit 04/28/20 21:00 Insulin Lispro 100 Unit/Ml 3 Ml Vial SUBCUT QIDACHS [facility] Metoprolol Tartrate 50 mg 04/28/20 21:00 Metoprolol Tartrate 50 Mg Tablet PO BID [facility] Protocol Pharmacy Consult 1 each 04/28/20 15:19 Consult Rx Perform Med Rec MISCELLANE ONCE PRN Consult order Quetiapine Fumarate 50 mg 04/28/20 21:00 Quetiapine Fumarate 50 Mg Tablet PO BEDTIME [facility] Sodium Chloride 3 ml 04/29/20 00:00 0.9 % Sodium Chloride Flush 3 Ml Syringe IVFLUSH QSHIFT [facility] Tamsulosin HCl 0.4 mg 04/29/20 09:00 Tamsulosin Hcl 0.4 Mg Capsule PO DAILY [facility] Zolpidem Tartrate 5 mg 04/28/20 20:15 Zolpidem Tartrate 5 Mg Tablet PO BEDTIME PRN Insomnia Home Medications Medication Instructions Recorded Confirmed Last Taken Type amlodipine 5 mg tablet 5 mg PO DAILY 01/09/20 04/28/20 Unknown History escitalopram oxalate 20 mg tablet 20 mg PO DAILY 01/09/20 04/28/20 Unknown History insulin glargine 100 unit/mL (3 30 unit SUBCUT DAILY ml 01/09/20 04/28/20 Unknown History mL) subcutaneous pen lancets 28 gauge #100 ea 01/09/20 01/28/20 Unknown History pen needle, diabetic 31 gauge x #50 ea 01/09/20 01/28/20 Unknown History 05/25 apixaban [Eliquis] 5 mg PO BID 04/28/20 04/28/20 Unknown History buspirone 30 mg PO TID 04/28/20 04/28/20 Unknown History diclofenac sodium 2 ea TOPICAL BID PRN 04/28/20 04/28/20 Unknown History hydroxyzine HCl 25 mg PO TID PRN 04/28/20 04/28/20 Unknown History lidocaine 2 patch TOPICAL DAILY PRN 04/28/20 04/28/20 Unknown History metoprolol tartrate 50 mg PO BID 04/28/20 04/28/20 Unknown History quetiapine 50 mg PO BEDTIME 04/28/20 04/28/20 Unknown History Physical Exam Vital Signs and Narrative: Vital Signs: Last Vital Signs Temp 98.2 F 04/28/20 20:02 Pulse 95 04/28/20 20:02 Resp 18 04/28/20 20:02 BP 138/85 04/28/20 20:02 Pulse Ox 97 04/28/20 20:02 Body Mass Index 41.3 Gen: Appears be in no acute distress HEENT: NCAT, Moist mucosa. Pulmonary: Vesicular breath sounds, fair air entry CVS: Normal S1-S2 Abdomen: BS+, Soft, Nontender Extremities: Warm well perfused Neuro: Alert and awake. Results Labs CBC and Chem 7: 04/28/20 14:10 04/28/20 18:56 Labs: Laboratory Results - last 24 hr 04/28/20 04/28/20 04/28/20 13:51 14:10 14:10 MCV 87.4 MCH 29.9 MCHC 34.2 RDW 12.2 Plt Count 358 D MPV 10.2 Immature Gran % (Auto) 0.7 H Neut % (Auto) 75.9 H Lymph % (Auto) 13.0 L [place] % (Auto) 10.2 Eos % (Auto) 0.0 Baso % (Auto) 0.2 Lymph # (Auto) 2.0 [place] # (Auto) 1.6 H Eos # (Auto) 0.0 Baso # (Auto) 0.0 Abs Immat Gran (auto) 0.10 H Absolute Neuts (auto) 11.7 H Absolute Nucleated RBC 0.000 Nucleated RBC % (auto) 0.0 Smear Tech's Comments VERIFIED Hold Blue Top Cancelled Anion Gap Estim Creat Clear Calc Estimated GFR POC Glucose 595 H* Random Glucose Lactic Acid Lactic Acid Fup @ 2Hr Calcium Magnesium Total Bilirubin Direct Bilirubin AST ALT Alkaline Phosphatase Total Creatine Kinase Troponin I High Sens Total Protein Albumin Urine Color Urine Appearance Urine pH Ur Specific [place] Urine Protein Urine Glucose (UA) Urine Ketones Urine Blood Urine Nitrite Ur Leukocyte Esterase Urine RBC Urine WBC Ur Squamous Epith Cells Urine Bacteria Urine Opiates Screen Ur Barbiturates Screen Ur Phencyclidine Scrn Ur Amphetamines Screen U Benzodiazepines Scrn Urine Cocaine Screen U Marijuana (THC) Screen Ethyl Alcohol Acetone, Qual Coronavirus (PCR) Influenza Type A (PCR) Influenza Type B (PCR) RSV RNA Qual (PCR) 04/28/20 04/28/20 04/28/20 14:10 14:10 14:10 MCV MCH MCHC RDW Plt Count MPV Immature Gran % (Auto) Neut % (Auto) Lymph % (Auto) [place] % (Auto) Eos % (Auto) Baso % (Auto) Lymph # (Auto) [place] # (Auto) Eos # (Auto) Baso # (Auto) Abs Immat Gran (auto) Absolute Neuts (auto) Absolute Nucleated RBC Nucleated RBC % (auto) Smear Tech's Comments Hold Blue Top Anion Gap 19 Estim Creat Clear Calc 61.1 Estimated GFR 34 POC Glucose Random Glucose 607 H* Lactic Acid Lactic Acid Fup @ 2Hr Calcium 9.6 Magnesium Cancelled Total Bilirubin Cancelled Direct Bilirubin Cancelled AST Cancelled ALT Cancelled Alkaline Phosphatase Cancelled Total Creatine Kinase Troponin I High Sens 34.2 Total Protein Cancelled Albumin Cancelled Urine Color Urine Appearance Urine pH Ur Specific [place] Urine Protein Urine Glucose (UA) Urine Ketones Urine Blood Urine Nitrite Ur Leukocyte Esterase Urine RBC Urine WBC Ur Squamous Epith Cells Urine Bacteria Urine Opiates Screen Ur Barbiturates Screen Ur Phencyclidine Scrn Ur Amphetamines Screen U Benzodiazepines Scrn Urine Cocaine Screen U Marijuana (THC) Screen Ethyl Alcohol Acetone, Qual Cancelled Coronavirus (PCR) Influenza Type A (PCR) Influenza Type B (PCR) RSV RNA Qual (PCR) 04/28/20 04/28/20 04/28/20 14:10 14:10 14:10 MCV MCH MCHC RDW Plt Count MPV Immature Gran % (Auto) Neut % (Auto) Lymph % (Auto) [place] % (Auto) Eos % (Auto) Baso % (Auto) Lymph # (Auto) [place] # (Auto) Eos # (Auto) Baso # (Auto) Abs Immat Gran (auto) Absolute Neuts (auto) Absolute Nucleated RBC Nucleated RBC % (auto) Smear Tech's Comments Hold Blue Top Anion Gap Estim Creat Clear Calc Estimated GFR POC Glucose Random Glucose Lactic Acid Lactic Acid Fup @ 2Hr Calcium Magnesium 2.4 Total Bilirubin 0.8 Direct Bilirubin 0.3 AST 50 H ALT 54 H Alkaline Phosphatase 101 D Total Creatine Kinase 2713 H Troponin I High Sens Total Protein 7.8 Albumin 4.6 Urine Color Urine Appearance Urine pH Ur Specific [place] Urine Protein Urine Glucose (UA) Urine Ketones Urine Blood Urine Nitrite Ur Leukocyte Esterase Urine RBC Urine WBC Ur Squamous Epith Cells Urine Bacteria Urine Opiates Screen POSITIVE H Ur Barbiturates Screen Not Detected Ur Phencyclidine Scrn Not Detected Ur Amphetamines Screen Not Detected U Benzodiazepines Scrn Not Detected Urine Cocaine Screen Not Detected U Marijuana (THC) Screen Not Detected Ethyl Alcohol < 10 Acetone, Qual Negative Coronavirus (PCR) Influenza Type A (PCR) Influenza Type B (PCR) RSV RNA Qual (PCR) 04/28/20 04/28/20 04/28/20 14:10 15:55 15:55 MCV MCH MCHC RDW Plt Count MPV Immature Gran % (Auto) Neut % (Auto) Lymph % (Auto) [place] % (Auto) Eos % (Auto) Baso % (Auto) Lymph # (Auto) [place] # (Auto) Eos # (Auto) Baso # (Auto) Abs Immat Gran (auto) Absolute Neuts (auto) Absolute Nucleated RBC Nucleated RBC % (auto) Smear Tech's Comments Hold Blue Top Anion Gap Estim Creat Clear Calc Estimated GFR POC Glucose Random Glucose Lactic Acid 3.4 H* Lactic Acid Fup @ 2Hr Calcium Magnesium Total Bilirubin Direct Bilirubin AST ALT Alkaline Phosphatase Total Creatine Kinase Troponin I High Sens 33.7 Total Protein Albumin Urine Color STRAW Urine Appearance CLEAR Urine pH 5.5 Ur Specific [place] 1.015 Urine Protein NEG Urine Glucose (UA) >=1000 H Urine Ketones NEG Urine Blood 2+ H Urine Nitrite NEG Ur Leukocyte Esterase NEG Urine RBC 0-2 Urine WBC 0-2 Ur Squamous Epith Cells NONE Urine Bacteria NONE Urine Opiates Screen Ur Barbiturates Screen Ur Phencyclidine Scrn Ur Amphetamines Screen U Benzodiazepines Scrn Urine Cocaine Screen U Marijuana (THC) Screen Ethyl Alcohol Acetone, Qual Coronavirus (PCR) Influenza Type A (PCR) Influenza Type B (PCR) RSV RNA Qual (PCR) 04/28/20 04/28/20 04/28/20 15:55 17:24 18:56 MCV MCH MCHC RDW Plt Count MPV Immature Gran % (Auto) Neut % (Auto) Lymph % (Auto) [place] % (Auto) Eos % (Auto) Baso % (Auto) Lymph # (Auto) [place] # (Auto) Eos # (Auto) Baso # (Auto) Abs Immat Gran (auto) Absolute Neuts (auto) Absolute Nucleated RBC Nucleated RBC % (auto) Smear Tech's Comments Hold Blue Top Anion Gap 14 Estim Creat Clear Calc 91.8 Estimated GFR 55 POC Glucose 252 H Random Glucose 258 H D Lactic Acid Lactic Acid Fup @ 2Hr Calcium 8.8 D Magnesium Total Bilirubin Direct Bilirubin AST ALT Alkaline Phosphatase Total Creatine Kinase Troponin I High Sens Total Protein Albumin Urine Color Urine Appearance Urine pH Ur Specific [place] Urine Protein Urine Glucose (UA) Urine Ketones Urine Blood Urine Nitrite Ur Leukocyte Esterase Urine RBC Urine WBC Ur Squamous Epith Cells Urine Bacteria Urine Opiates Screen Ur Barbiturates Screen Ur Phencyclidine Scrn Ur Amphetamines Screen U Benzodiazepines Scrn Urine Cocaine Screen U Marijuana (THC) Screen Ethyl Alcohol Acetone, Qual Coronavirus (PCR) POSITIVE A Influenza Type A (PCR) NEGATIVE Influenza Type B (PCR) NEGATIVE RSV RNA Qual (PCR) NEGATIVE 04/28/20 18:56 MCV MCH MCHC RDW Plt Count MPV Immature Gran % (Auto) Neut % (Auto) Lymph % (Auto) [place] % (Auto) Eos % (Auto) Baso % (Auto) Lymph # (Auto) [place] # (Auto) Eos # (Auto) Baso # (Auto) Abs Immat Gran (auto) Absolute Neuts (auto) Absolute Nucleated RBC Nucleated RBC % (auto) Smear Tech's Comments Hold Blue Top Anion Gap Estim Creat Clear Calc Estimated GFR POC Glucose Random Glucose Lactic Acid Lactic Acid Fup @ 2Hr 1.8 Calcium Magnesium Total Bilirubin Direct Bilirubin AST ALT Alkaline Phosphatase Total Creatine Kinase Troponin I High Sens Total Protein Albumin Urine Color Urine Appearance Urine pH Ur Specific [place] Urine Protein Urine Glucose (UA) Urine Ketones Urine Blood Urine Nitrite Ur Leukocyte Esterase Urine RBC Urine WBC Ur Squamous Epith Cells Urine Bacteria Urine Opiates Screen Ur Barbiturates Screen Ur Phencyclidine Scrn Ur Amphetamines Screen U Benzodiazepines Scrn Urine Cocaine Screen U Marijuana (THC) Screen Ethyl Alcohol Acetone, Qual Coronavirus (PCR) Influenza Type A (PCR) Influenza Type B (PCR) RSV RNA Qual (PCR) Imaging Radiologist's Impressions: Impressions Chest X-Ray 04/28/20 15:20 IMPRESSION: No acute disease. Assessment and Plan (1) Acute renal failure due to rhabdomyolysis: Status: Acute 49-year-old male with a past medical history of hypertension, hyperl ipidemia, diabetes, anxiety, depression, AFib on Eliquis, arthritis, polysubstance abuse presented to the hospital with a chief complaint of generalized weakness. Generalized weakness: Likely in the setting of drug use. Patient U tox positive for opiates. Patient noted to be somnolent on presentation. Gradually improving. Supportive care. Chest x-ray negative for pneumonia. Urinalysis patient is not hypoxic Negative for infection. COVID-19 positive: Patient is not hypoxic. Chest x-ray showed no acute findings. Supportive care. Isolation precautions. Hyponatremia: Pseudo hyponatremia in the setting of hyperglycemia. Improved. MIRANDA: Improved with IV fluids. Lactic acidosis: Resolved Opiate dependence: COWS protocol, ativan p.r.n.. Zofran p.r.n.. AFib with RVR: Patient became tachycardic after he went to the bathroom; as heart rate was not improving patient was started on diltiazem IV push followed by diltiazem drip. Also given p.r.n. metoprolol. Continued on home metoprolol. Cardiology consult Continued on home Eliquis Diabetes with hyperglycemia: Unclear if patient is compliant with his home medications. Existing lupus improving. Continue insulin sliding scale and Lantus. DVT prophylaxis: Patient on Eliquis Full code
[2020-04-28 20:26] LABS: D Dimer < 200 NG/ML
--- NOTE | 2020-04-28 21:45 | MHC.CM.PN ---
Addendum entered by Reyna Ford 04/28/20 22:02: Pt reported didn't want to live when he thought he was discharged. Provider spoke to CM regarding BHN consult, but order not placed. Being admitted for hyperglycemia. Original Note: CM met with pt at request of Keisha PARMAR. Pt is homeless. Admitted: hyperglycemia, COVID, suicidal ideation. Pt was weepy and requesting help with a place to stay. Understands that he will be admitted tonight to get his blood sugars under control. Pt tox screen positive for opiates. Pt admits to snorting heroin. Pt needs consult to CARE team/project coach. BHN consult placed by provider. Pt. has no family in area and his S.O. is not longer involved with him. Theodora Mike ([phone]). D/C plan is unknown at this time. Pt is homeless and may need treatment program for substance use disorder. CM to follow for d/c planning.
[2020-04-28 21:49] LABS: Glucose, Whole Blood 306 mg/dL (60-115)
[2020-04-28] MEDS: Insulin Glargine,Hum.rec.anlog 100 UNIT/ML 10 ML VIAL 10 UNIT SUBCUT (22:08)
[2020-04-28] MEDS: busPIRone HCl 10 MG TABLET 30 MG PO (22:09)
[2020-04-28] MEDS: Insulin Lispro 100 UNIT/ML 3 ML VIAL SUBCUT (22:09)
[2020-04-28] MEDS: QUEtiapine Fumarate 50 MG TABLET PO (22:10)
[2020-04-28] MEDS: Apixaban 5 MG TABLET PO (22:10)
--- NOTE | 2020-04-28 22:10 | PC.NURSE ---
MESSAGE SENT TO DR SIU REGARDING PATIENTS HR.
[2020-04-28] MEDS: 0.9 % Sodium Chloride 1,000 ML 100 ML IVCONT (22:19)
--- NOTE | 2020-04-28 22:25 | PC.NURSE ---
Pt requesting to use the bathroom, ambulating to and from the bathroom with a steady gait. Upon return from the bathroom, pt reattached to bus driver/monitor and found to be in a rapid Afib @ 170-180. Pt denies CP/SOB. Pt denies drug use while in the bathroom. Pt noted to be drowsy with snoring respirations, decreased O2 sat of 88% on RA. Pt unable to stay awake without constant prompting. O2 applied via NC @ 2 lpm. can top setter contacting hospitalist regarding pt condition. Awaiting orders.
[2020-04-28] MEDS: dilTIAZem HCL 50 MG/10 ML VIAL 20 MG IVPUSH (22:29)
[2020-04-28] MEDS: dilTIAZem HCL 125 MG in 0.9 % Sodium Chloride 100 ML 10 MG IVCONT (22:38)
--- NOTE | 2020-04-28 22:42 | PC.NURSE ---
Pt medicated with Diltiazem bolus. Diltiazem drip infusing per MAR, starting @ 10 mg/hr.
--- NOTE | 2020-04-28 22:48 | PC.NURSE ---
Pt continues denying complaints. Pt remains drowsy, unable to stay awake, diaphoretic, pupils pinpoint. IVF infusing per MAR. VSS however pt remains tachycardic and hypertensive at this time.
[2020-04-28 22:49] LABS: Glucose, Whole Blood 307 mg/dL (60-115)
--- NOTE | 2020-04-28 22:52 | PC.NURSE ---
Addendum entered by Crystal Arroyo 04/28/20 22:55: 15 mg/hr. Original Note: Diltiazem infusion increased to 15 mng/hr.
--- NOTE | 2020-04-28 22:55 | PC.NURSE ---
2100 PO Metoprolol held due to s/o of rapid Afib. 2211 Morphine due to decreased respiratory rate and decreased O2 sat upon return from the bathroom.
--- NOTE | 2020-04-28 23:04 | PC.NURSE ---
Hospitalist at bedside. This RN discussing Narcan with MD due to decreased respiratory rate and O2 sat. Per MD, no narcan until HR is within normal limits.
--- NOTE | 2020-04-28 23:10 | PC.NURSE ---
Pt maxed on Dilt drip @ 15 mg/hr, remains tachycardiac @ 130-140 bpm at this time.
--- NOTE | 2020-04-28 23:29 | PC.NURSE ---
This RN contacting hospitalist regarding persistent rapid Afib despite Dilt infusion. Plan for IV Metoprolol.
--- NOTE | 2020-04-28 23:36 | PC.NURSE ---
This RN contacting night pharmacy regarding IV Lopressor for pt that remains unverified for 20 minutes now. Pharmacy to verify order, awaiting verification.
[2020-04-28] MEDS: Metoprolol Tartrate 5 MG/5 ML VIAL IVPUSH (23:43)
--- NOTE | 2020-04-28 23:53 | PC.NURSE ---
Pt medicated with IV Lopressor per MAR.
[2020-04-29] VITALS (19 sets, daily range): BP systolic 107–135; BP diastolic 61–94; PULSE 69–125; RESP 12–20; TEMP 36.1–37.1; O2SAT 95–97
[2020-04-29] MEDS: 0.9 % Sodium Chloride Flush 3 ML SYRINGE IVFLUSH ×3 (00:13→17:15)
--- NOTE | 2020-04-29 01:05 | PC.NURSE ---
Pt resting in bed, watching TV on Dilt infusion @ 15 mg/hr, HR 113 bpm at this time. Call casas within reach, continue to monitor.
[2020-04-29] MEDS: LORazepam 0.5 MG TABLET PO ×2 (02:03→22:11)
--- NOTE | 2020-04-29 02:16 | PC.NURSE ---
Pt resting in bed, unable to sleep, requesting something for anxiety, pt medicated with Ativan for restlessness. Dilt infusing @ 15 mg/hr.
--- NOTE | 2020-04-29 04:45 | PC.NURSE ---
Dilt infusion paused at this time as HR was noted to be <90. Hospitalist aware. Pt sleeping in bed in NAD. Continue to monitor.
--- NOTE | 2020-04-29 08:44 | PC.NURSE ---
REPORT FROM YOUSIF. PT AWAITNG BED ASSIGNMENT. VITALS UPDATED. CARDIZEM CONTINUES AT 15 MG/HOUR AND NS AT 100 CC/HOUR
[2020-04-29] MEDS: amLODIPine Besylate 5 MG TABLET PO (08:53)
[2020-04-29] MEDS: Tamsulosin HCL 0.4 MG CAPSULE PO (08:53)
[2020-04-29] MEDS: Apixaban 5 MG TABLET PO ×2 (08:53→21:41)
[2020-04-29] MEDS: Metoprolol Tartrate 50 MG TABLET PO ×3 (08:54→17:16)
[2020-04-29] MEDS: Escitalopram Oxalate 20 MG TABLET PO (08:54)
[2020-04-29] MEDS: busPIRone HCl 10 MG TABLET 30 MG PO ×2 (08:54→21:41)
[2020-04-29] MEDS: Insulin Lispro 100 UNIT/ML 3 ML VIAL SUBCUT ×4 (08:55→21:52)
[2020-04-29 09:06] LABS: Glucose, Whole Blood 293 mg/dL (60-115)
[2020-04-29 09:13] LABS: MANUAL DIFF FLAG NO
[2020-04-29 09:26] LABS: Basophils Percent Auto 0.3 % (0-2); Eosinophils Absolute Auto 0.1 X10*3/uL (0.0-0.4); Eosinophils Percent Auto 0.7 % (0-4); Hematocrit 39.6 % (42-52); Hemoglobin 13.3 g/dl (14.0-18.0); Imm Gran Abs Auto 0.03 X10*3/uL (0.00-0.03); Imm Gran Pct Auto 0.4 % (0.0-0.4); Lymphocytes Absolute Auto 2.5 X10*3/uL (1.2-4.9); Lymphocytes Percent Auto 32.6 % (20-40); Mean Corpuscular HGB Conc 33.6 g/dl (31.0-36.0); Mean Corpuscular Volume 89.2 fL (80-98); Mean Platelet Volume 10.1 fL (9.4-12.4); Monocytes Absolute Auto 0.8 X10*3/uL (0.1-1.2); Monocytes Percent Auto 10.5 % (2-11); Neutrophils Absolute Auto 4.2 X10*3/uL (2.0-8.3); Neutrophils Percent Auto 55.5 % (45-73); Platelet Count 275 X10*3/uL (160-400); Red Blood Count 4.44 X10*6/uL (4.60-5.80); Red Cell Distribution Width 12.1 % (11.0-16.0); White Blood Count 7.5 X10*3/uL (4.8-10.8)
[2020-04-29 09:49] LABS: Anion Gap 10 (12-20); Blood Urea Nitrogen 17 mg/dL (9-16); Calcium 8.2 mg/dL (8.4-10.2); Carbon Dioxide 29 mmol/L (22-29); Chloride 98 mmol/L (96-108); Creatinine Clr Calc Pharmacy 119.3; Estimated Glomerular Filt Rate > 60; Glucose Random 356 mg/dL (60-115); Potassium 4.1 mmol/L (3.3-5.1); Sodium 133 mmol/L (135-145)
--- NOTE | 2020-04-29 11:51 | PM.CNCAR ---
History of Present Illness History of Present Illness Date of Service: 04/29/20 Requesting physician: Marcelo Berry Consult reason: atrial fibrillation Chief complaint: AFIB Narrative: 49-year-old gentleman with background history of hypertension, hyperlipidemia, diabetes, atrial fibrillation for which she has been on Eliquis and background of polysubstance abuse. He presented to us yesterday because of somnolence and hyperglycemia. He tested positive for COVID-19 infection. It appears he was snorting heroin which probably led to somnolence. He is saying he has been using his insulin and metformin regularly but was quite hyperglycemic when he came. Was noted to be in atrial fibrillation with rapid ventricular response. He is on Eliquis and say is that he takes it here and there and is not very compliant with medications. Denies any chest pain or shortness of breath. He has noticed to have elevated CPKs with some kidney issues and has been diagnosed with rhabdomyolysis. [facility] Past Medical History Medical History Anxiety Arthritis Asthma Benign essential hypertension BPH (benign prostatic hyperplasia) Depression Diabetes Family history of thyroid disorder Insomnia Morbid obesity with BMI of 40.0-44.9, adult Overactive bladder Primary osteoarthritis of both knees Seizure Type 2 diabetes mellitus with hyperglycemia Family History Family History Father ETOH abuse Mother Diabetes Arthritis of knee Hypertension Surgical History Surgical History No history of previous surgery Social History Social History Household Members: Significant Other Alcohol intake: never Smoking Status: Never smoker Use of substances other than those prescribed or required for medical reasons: Yes Substance Use Type: Marijuana Last Used Substance: Days (ago) Advance Directives: No Advance Directives Information Provided: No service: No Current occupational status: unemployed Meds Allergies Allergy/AdvReac Type Severity Reaction Status Date / Time Penicillins [PENICILLINS] Allergy Unknown RASH Verified 04/07/20 15:31 Active Medications: Current Medications Generic Name Dose Route Start Last Admin Trade Name Freq PRN Reason Stop Dose Admin Acetaminophen 650 mg 04/28/20 20:15 Acetaminophen Supp 650 Mg Supp.Rect [place] Q6H PRN Pain, Mild (Pain Scale 1-3) Amlodipine Besylate 5 mg 04/29/20 09:00 04/29/20 08:53 Amlodipine Besylate 5 Mg Tablet PO 5 mg DAILY SCOTTY Administration Protocol Apixaban 5 mg 04/28/20 21:00 04/29/20 08:53 Apixaban 5 Mg Tablet PO 5 mg BID SCOTTY Administration Buspirone HCl 30 mg 04/28/20 21:00 04/29/20 08:54 Buspirone Hcl 10 Mg Tablet PO 30 mg BID SCOTTY Administration Docusate Sodium 100 mg 04/28/20 20:15 Docusate Sodium 100 Mg Capsule PO DAILY PRN Constipation Escitalopram Oxalate 20 mg 04/29/20 09:00 04/29/20 08:54 Escitalopram Oxalate 20 Mg Tablet PO 20 mg DAILY SCOTTY Administration Diltiazem HCl 125 mg/ Sodium 125 mls @ 0 mls/hr 04/28/20 22:30 04/29/20 04:13 Chloride IVCONT 0 mg/hr .Q0M SCOTTY 0 mls/hr Titration Protocol Per Protocol Insulin Glargine 10 unit 04/28/20 21:00 04/28/20 22:08 Insulin Glargine,Hum.Rec.Anlog 100 Unit/Ml 10 Ml Vial SUBCUT 10 unit BEDTIME SCOTTY Administration Insulin Human Lispro 0 unit 04/28/20 21:00 04/29/20 08:55 Insulin Lispro 100 Unit/Ml 3 Ml Vial SUBCUT 6 unit QIDACHS [facility] Administration Protocol Lorazepam 0.5 mg 04/28/20 23:28 04/29/20 02:03 Lorazepam 0.5 Mg Tablet PO 0.5 mg Q8H PRN Administration anxiety/restlessness Metoprolol Tartrate 5 mg 04/28/20 23:23 04/28/20 23:43 Metoprolol Tartrate 5 Mg/5 Ml Vial IVPUSH 5 mg Q6H PRN Administration HR>130 Metoprolol Tartrate 50 mg 04/29/20 12:00 Metoprolol Tartrate 50 Mg Tablet PO RQ6H [facility] Protocol Ondansetron HCl 4 mg 04/28/20 23:27 Ondansetron Hcl 4 Mg/2 Ml Vial IVPUSH Q6H PRN Nausea and Vomiting Pharmacy Consult 1 each 04/28/20 15:19 Consult Rx Perform Med Rec MISCELLANE ONCE PRN Consult order Quetiapine Fumarate 50 mg 04/28/20 21:00 04/28/20 22:10 Quetiapine Fumarate 50 Mg Tablet PO 50 mg BEDTIME SCOTTY Administration Sodium Chloride 3 ml 04/29/20 00:00 04/29/20 08:54 0.9 % Sodium Chloride Flush 3 Ml Syringe IVFLUSH 3 ml QSHIFT SCOTTY Administration Tamsulosin HCl 0.4 mg 04/29/20 09:00 04/29/20 08:53 Tamsulosin Hcl 0.4 Mg Capsule PO 0.4 mg DAILY SCOTTY Administration Zolpidem Tartrate 5 mg 04/28/20 20:15 Zolpidem Tartrate 5 Mg Tablet PO BEDTIME PRN Insomnia Home Medications Medication Instructions Recorded Confirmed Last Taken Type amlodipine 5 mg tablet 5 mg PO DAILY 01/09/20 04/28/20 Unknown History escitalopram oxalate 20 mg tablet 20 mg PO DAILY 01/09/20 04/28/20 Unknown History insulin glargine 100 unit/mL (3 30 unit SUBCUT DAILY ml 01/09/20 04/28/20 Unknown History mL) subcutaneous pen lancets 28 gauge #100 ea 01/09/20 01/28/20 Unknown History pen needle, diabetic 31 gauge x #50 ea 01/09/20 01/28/20 Unknown History 05/25 apixaban [Eliquis] 5 mg PO BID 04/28/20 04/28/20 Unknown History buspirone 30 mg PO TID 04/28/20 04/28/20 Unknown History diclofenac sodium 2 ea TOPICAL BID PRN 04/28/20 04/28/20 Unknown History hydroxyzine HCl 25 mg PO TID PRN 04/28/20 04/28/20 Unknown History lidocaine 2 patch TOPICAL DAILY PRN 04/28/20 04/28/20 Unknown History metoprolol tartrate 50 mg PO BID 04/28/20 04/28/20 Unknown History quetiapine 50 mg PO BEDTIME 04/28/20 04/28/20 Unknown History Physical Exam Vital Signs: Vital Signs: Last Vital Signs Temp 97.8 F 04/29/20 08:43 Pulse 120 H 04/29/20 08:54 Resp 20 04/29/20 08:43 BP 133/83 04/29/20 08:54 Pulse Ox 97 04/29/20 08:43 Body Mass Index 41.3 GENERAL APPEARANCE: in no acute distress, overweight. HEENT: unremarkable. HEAD: normocephalic, atraumatic. NECK/THYROID: no carotid bruit, no jugular venous distention. SKIN: no suspicious lesions, warm and dry. HEART: no murmurs, irregular rate and rhythm, S1, S2 normal. LUNGS: clear to auscultation bilaterally. ABDOMEN: normal, bowel sounds present, soft, nontender, nondistended. EXTREMITIES: no clubbing, cyanosis, or edema. PERIPHERAL PULSES: equal. NEUROLOGIC: nonfocal, alert and oriented. PSYCH: mood/affect full range. Results Labs and Meds Result diagrams: 04/29/20 08:58 04/29/20 08:58 Lab results: Laboratory Results - last 24 hr 04/28/20 04/28/20 04/28/20 13:51 14:10 14:10 WBC 15.4 H RBC 5.01 Hgb 15.0 Hct 43.8 MCV 87.4 MCH 29.9 MCHC 34.2 RDW 12.2 Plt Count 358 D MPV 10.2 Immature Gran % (Auto) 0.7 H Neut % (Auto) 75.9 H Lymph % (Auto) 13.0 L [place] % (Auto) 10.2 Eos % (Auto) 0.0 Baso % (Auto) 0.2 Lymph # (Auto) 2.0 [place] # (Auto) 1.6 H Eos # (Auto) 0.0 Baso # (Auto) 0.0 Abs Immat Gran (auto) 0.10 H Absolute Neuts (auto) 11.7 H Absolute Nucleated RBC 0.000 Nucleated RBC % (auto) 0.0 Smear Tech's Comments VERIFIED PT INR D-Dimer Hold Blue Top Sodium 126 L Potassium 5.5 H Chloride 92 L Carbon Dioxide 21 L Anion Gap 19 BUN 32 H D Creatinine 2.09 H Estim Creat Clear Calc 61.1 Estimated GFR 34 POC Glucose 595 H* Random Glucose 607 H* Lactic Acid Lactic Acid Fup @ 2Hr Calcium 9.6 Magnesium Total Bilirubin Direct Bilirubin AST ALT Alkaline Phosphatase Total Creatine Kinase Troponin I High Sens Total Protein Albumin Urine Color Urine Appearance Urine pH Ur Specific [place] Urine Protein Urine Glucose (UA) Urine Ketones Urine Blood Urine Nitrite Ur Leukocyte Esterase Urine RBC Urine WBC Ur Squamous Epith Cells Urine Bacteria Urine Opiates Screen Ur Barbiturates Screen Ur Phencyclidine Scrn Ur Amphetamines Screen U Benzodiazepines Scrn Urine Cocaine Screen U Marijuana (THC) Screen Ethyl Alcohol Acetone, Qual Coronavirus (PCR) Influenza Type A (PCR) Influenza Type B (PCR) RSV RNA Qual (PCR) 04/28/20 04/28/20 04/28/20 14:10 14:10 14:10 WBC RBC Hgb Hct MCV MCH MCHC RDW Plt Count MPV Immature Gran % (Auto) Neut % (Auto) Lymph % (Auto) [place] % (Auto) Eos % (Auto) Baso % (Auto) Lymph # (Auto) [place] # (Auto) Eos # (Auto) Baso # (Auto) Abs Immat Gran (auto) Absolute Neuts (auto) Absolute Nucleated RBC Nucleated RBC % (auto) Smear Tech's Comments PT INR D-Dimer Hold Blue Top Sodium Potassium Chloride Carbon Dioxide Anion Gap BUN Creatinine Estim Creat Clear Calc Estimated GFR POC Glucose Random Glucose Lactic Acid Lactic Acid Fup @ 2Hr Calcium Magnesium Cancelled 2.4 Total Bilirubin Cancelled 0.8 Direct Bilirubin Cancelled 0.3 AST Cancelled 50 H ALT Cancelled 54 H Alkaline Phosphatase Cancelled 101 D Total Creatine Kinase 2713 H Troponin I High Sens 34.2 Total Protein Cancelled 7.8 Albumin Cancelled 4.6 Urine Color Urine Appearance Urine pH Ur Specific [place] Urine Protein Urine Glucose (UA) Urine Ketones Urine Blood Urine Nitrite Ur Leukocyte Esterase Urine RBC Urine WBC Ur Squamous Epith Cells Urine Bacteria Urine Opiates Screen Ur Barbiturates Screen Ur Phencyclidine Scrn Ur Amphetamines Screen U Benzodiazepines Scrn Urine Cocaine Screen U Marijuana (THC) Screen Ethyl Alcohol Acetone, Qual Cancelled Negative Coronavirus (PCR) Influenza Type A (PCR) Influenza Type B (PCR) RSV RNA Qual (PCR) 04/28/20 04/28/20 04/28/20 14:10 14:10 14:10 WBC RBC Hgb Hct MCV MCH MCHC RDW Plt Count MPV Immature Gran % (Auto) Neut % (Auto) Lymph % (Auto) [place] % (Auto) Eos % (Auto) Baso % (Auto) Lymph # (Auto) [place] # (Auto) Eos # (Auto) Baso # (Auto) Abs Immat Gran (auto) Absolute Neuts (auto) Absolute Nucleated RBC Nucleated RBC % (auto) Smear Tech's Comments PT INR D-Dimer Hold Blue Top Sodium Potassium Chloride Carbon Dioxide Anion Gap BUN Creatinine Estim Creat Clear Calc Estimated GFR POC Glucose Random Glucose Lactic Acid Lactic Acid Fup @ 2Hr Calcium Magnesium Total Bilirubin Direct Bilirubin AST ALT Alkaline Phosphatase Total Creatine Kinase Troponin I High Sens Total Protein Albumin Urine Color STRAW Urine Appearance CLEAR Urine pH 5.5 Ur Specific [place] 1.015 Urine Protein NEG Urine Glucose (UA) >=1000 H Urine Ketones NEG Urine Blood 2+ H Urine Nitrite NEG Ur Leukocyte Esterase NEG Urine RBC 0-2 Urine WBC 0-2 Ur Squamous Epith Cells NONE Urine Bacteria NONE Urine Opiates Screen POSITIVE H Ur Barbiturates Screen Not Detected Ur Phencyclidine Scrn Not Detected Ur Amphetamines Screen Not Detected U Benzodiazepines Scrn Not Detected Urine Cocaine Screen Not Detected U Marijuana (THC) Screen Not Detected Ethyl Alcohol < 10 Acetone, Qual Coronavirus (PCR) Influenza Type A (PCR) Influenza Type B (PCR) RSV RNA Qual (PCR) 04/28/20 04/28/20 04/28/20 15:55 15:55 15:55 WBC RBC Hgb Hct MCV MCH MCHC RDW Plt Count MPV Immature Gran % (Auto) Neut % (Auto) Lymph % (Auto) [place] % (Auto) Eos % (Auto) Baso % (Auto) Lymph # (Auto) [place] # (Auto) Eos # (Auto) Baso # (Auto) Abs Immat Gran (auto) Absolute Neuts (auto) Absolute Nucleated RBC Nucleated RBC % (auto) Smear Tech's Comments PT INR D-Dimer Hold Blue Top Sodium Potassium Chloride Carbon Dioxide Anion Gap BUN Creatinine Estim Creat Clear Calc Estimated GFR POC Glucose Random Glucose Lactic Acid 3.4 H* Lactic Acid Fup @ 2Hr Calcium Magnesium Total Bilirubin Direct Bilirubin AST ALT Alkaline Phosphatase Total Creatine Kinase Troponin I High Sens 33.7 Total Protein Albumin Urine Color Urine Appearance Urine pH Ur Specific [place] Urine Protein Urine Glucose (UA) Urine Ketones Urine Blood Urine Nitrite Ur Leukocyte Esterase Urine RBC Urine WBC Ur Squamous Epith Cells Urine Bacteria Urine Opiates Screen Ur Barbiturates Screen Ur Phencyclidine Scrn Ur Amphetamines Screen U Benzodiazepines Scrn Urine Cocaine Screen U Marijuana (THC) Screen Ethyl Alcohol Acetone, Qual Coronavirus (PCR) POSITIVE A Influenza Type A (PCR) NEGATIVE Influenza Type B (PCR) NEGATIVE RSV RNA Qual (PCR) NEGATIVE 04/28/20 04/28/20 04/28/20 17:24 18:56 18:56 WBC RBC Hgb Hct MCV MCH MCHC RDW Plt Count MPV Immature Gran % (Auto) Neut % (Auto) Lymph % (Auto) [place] % (Auto) Eos % (Auto) Baso % (Auto) Lymph # (Auto) [place] # (Auto) Eos # (Auto) Baso # (Auto) Abs Immat Gran (auto) Absolute Neuts (auto) Absolute Nucleated RBC Nucleated RBC % (auto) Smear Tech's Comments PT INR D-Dimer Hold Blue Top Sodium 132 L Potassium 4.4 Chloride 99 Carbon Dioxide 23 Anion Gap 14 BUN 25 H Creatinine 1.39 Estim Creat Clear Calc 91.8 Estimated GFR 55 POC Glucose 252 H Random Glucose 258 H D Lactic Acid Lactic Acid Fup @ 2Hr 1.8 Calcium 8.8 D Magnesium Total Bilirubin Direct Bilirubin AST ALT Alkaline Phosphatase Total Creatine Kinase Troponin I High Sens Total Protein Albumin Urine Color Urine Appearance Urine pH Ur Specific [place] Urine Protein Urine Glucose (UA) Urine Ketones Urine Blood Urine Nitrite Ur Leukocyte Esterase Urine RBC Urine WBC Ur Squamous Epith Cells Urine Bacteria Urine Opiates Screen Ur Barbiturates Screen Ur Phencyclidine Scrn Ur Amphetamines Screen U Benzodiazepines Scrn Urine Cocaine Screen U Marijuana (THC) Screen Ethyl Alcohol Acetone, Qual Coronavirus (PCR) Influenza Type A (PCR) Influenza Type B (PCR) RSV RNA Qual (PCR) 04/28/20 04/28/20 04/28/20 20:01 21:35 22:40 WBC RBC Hgb Hct MCV MCH MCHC RDW Plt Count MPV Immature Gran % (Auto) Neut % (Auto) Lymph % (Auto) [place] % (Auto) Eos % (Auto) Baso % (Auto) Lymph # (Auto) [place] # (Auto) Eos # (Auto) Baso # (Auto) Abs Immat Gran (auto) Absolute Neuts (auto) Absolute Nucleated RBC Nucleated RBC % (auto) Smear Tech's Comments PT 12.4 INR 1.0 D-Dimer < 200 Hold Blue Top Cancelled Sodium Potassium Chloride Carbon Dioxide Anion Gap BUN Creatinine Estim Creat Clear Calc Estimated GFR POC Glucose 306 H 307 H Random Glucose Lactic Acid Lactic Acid Fup @ 2Hr Calcium Magnesium Total Bilirubin Direct Bilirubin AST ALT Alkaline Phosphatase Total Creatine Kinase Troponin I High Sens Total Protein Albumin Urine Color Urine Appearance Urine pH Ur Specific [place] Urine Protein Urine Glucose (UA) Urine Ketones Urine Blood Urine Nitrite Ur Leukocyte Esterase Urine RBC Urine WBC Ur Squamous Epith Cells Urine Bacteria Urine Opiates Screen Ur Barbiturates Screen Ur Phencyclidine Scrn Ur Amphetamines Screen U Benzodiazepines Scrn Urine Cocaine Screen U Marijuana (THC) Screen Ethyl Alcohol Acetone, Qual Coronavirus (PCR) Influenza Type A (PCR) Influenza Type B (PCR) RSV RNA Qual (PCR) 04/29/20 04/29/20 04/29/20 08:41 08:58 08:58 WBC 7.5 RBC 4.44 L Hgb 13.3 L Hct 39.6 L MCV 89.2 MCH 30.0 MCHC 33.6 RDW 12.1 Plt Count 275 MPV 10.1 Immature Gran % (Auto) 0.4 Neut % (Auto) 55.5 Lymph % (Auto) 32.6 [place] % (Auto) 10.5 Eos % (Auto) 0.7 Baso % (Auto) 0.3 Lymph # (Auto) 2.5 [place] # (Auto) 0.8 Eos # (Auto) 0.1 Baso # (Auto) 0.0 Abs Immat Gran (auto) 0.03 Absolute Neuts (auto) 4.2 Absolute Nucleated RBC 0.000 Nucleated RBC % (auto) 0.0 Smear Tech's Comments PT INR D-Dimer Hold Blue Top Sodium 133 L Potassium 4.1 Chloride 98 Carbon Dioxide 29 Anion Gap 10 L BUN 17 H Creatinine 1.07 Estim Creat Clear Calc 119.3 Estimated GFR > 60 POC Glucose 293 H Random Glucose 356 H* Lactic Acid Lactic Acid Fup @ 2Hr Calcium 8.2 L D Magnesium Total Bilirubin Direct Bilirubin AST ALT Alkaline Phosphatase Total Creatine Kinase Troponin I High Sens Total Protein Albumin Urine Color Urine Appearance Urine pH Ur Specific [place] Urine Protein Urine Glucose (UA) Urine Ketones Urine Blood Urine Nitrite Ur Leukocyte Esterase Urine RBC Urine WBC Ur Squamous Epith Cells Urine Bacteria Urine Opiates Screen Ur Barbiturates Screen Ur Phencyclidine Scrn Ur Amphetamines Screen U Benzodiazepines Scrn Urine Cocaine Screen U Marijuana (THC) Screen Ethyl Alcohol Acetone, Qual Coronavirus (PCR) Influenza Type A (PCR) Influenza Type B (PCR) RSV RNA Qual (PCR) Imaging Radiologist's impression: Impressions Chest X-Ray 04/28/20 15:20 IMPRESSION: No acute disease. Assessment and Plan (1) COVID-19: Status: Acute (2) Acute renal failure due to rhabdomyolysis: Status: Acute (3) Atrial fibrillation: Status: Acute [age] gentleman background of polysubstance abuse who is presenting with somnolence after using heroin and hyperglycemia. He has tested positive for COVID-19 infection. He also has been noticed to have rhabdomyolysis. He is in atrial fibrillation with rapid ventricular response. He was started on Cardizem drip. He was on metoprolol and Eliquis before. Difficult to say whether he has been taking medications, he is saying he does not use Eliquis regularly. In any case right now continue Cardizem is the right thing to do. He is clinically not in heart failure. Continue Eliquis. The hope is that he will revert back to sinus rhythm. Thank you for allowing me to participate in the care of your patient. Please feel free to contact me if you have any questions.
[2020-04-29 12:59] LABS: Glucose, Whole Blood 310 mg/dL (60-115)
--- NOTE | 2020-04-29 14:26 | HO.PM.IMPN ---
Subjective Subjective Date of Service: 04/29/20 Interval History: the patient was seen and evaluated this morning Laying in bed, feels a little bit short of breath and tired but no chest pain Denies any fever, chills or chest pain No reported other overnight events. Systemic review: No fever, chills but reports increased weakness No chest pain, feels palpitation Exertion and shortness of breath or coughing No abdominal pain, nausea or vomiting No urinary symptoms No any rash or wounds Physical Exam Vital Signs: Vital Signs: Last Vital Signs Temp 97.8 F 04/29/20 08:43 Pulse 70 04/29/20 12:58 Resp 20 04/29/20 12:41 BP 107/66 04/29/20 12:58 Pulse Ox 97 04/29/20 08:43 Body Mass Index 41.3 Const: Other: Constitutional : Alert, oriented, not in distress Neck : Normal inspection, Supple Cardiovascular : Irregular irregular, S1 S2, no lower extremity edema Respiratory : Fair bilateral air entry, bilateral fine basal crackles, wheezes or rhonchi Gastrointestinal: soft, lax, Normal bowel sounds, Non tender Skin : Warm/Dry, No rash Neurological : Alert & oriented x3, No focal deficit Objective Data Current Medications Generic Name Dose Route Start Last Admin Trade Name Freq PRN Reason Stop Dose Admin Acetaminophen 650 mg 04/28/20 20:15 Acetaminophen Supp 650 Mg Supp.Rect [place] Q6H PRN Pain, Mild (Pain Scale 1-3) Amlodipine Besylate 5 mg 04/29/20 09:00 04/29/20 08:53 Amlodipine Besylate 5 Mg Tablet PO 5 mg DAILY SCOTTY Administration Protocol Apixaban 5 mg 04/28/20 21:00 04/29/20 08:53 Apixaban 5 Mg Tablet PO 5 mg BID SCOTTY Administration Buspirone HCl 30 mg 04/28/20 21:00 04/29/20 08:54 Buspirone Hcl 10 Mg Tablet PO 30 mg BID SCOTTY Administration Docusate Sodium 100 mg 04/28/20 20:15 Docusate Sodium 100 Mg Capsule PO DAILY PRN Constipation Escitalopram Oxalate 20 mg 04/29/20 09:00 04/29/20 08:54 Escitalopram Oxalate 20 Mg Tablet PO 20 mg DAILY SCOTTY Administration Diltiazem HCl 125 mg/ Sodium 125 mls @ 0 mls/hr 04/28/20 22:30 04/29/20 12:03 Chloride IVCONT 0 mg/hr .Q0M SCOTTY 0 mls/hr Titration Protocol Per Protocol Insulin Glargine 10 unit 04/28/20 21:00 04/28/20 22:08 Insulin Glargine,Hum.Rec.Anlog 100 Unit/Ml 10 Ml Vial SUBCUT 10 unit BEDTIME SCOTTY Administration Insulin Human Lispro 0 unit 04/28/20 21:00 04/29/20 12:57 Insulin Lispro 100 Unit/Ml 3 Ml Vial SUBCUT 8 unit QIDACHS SCOTTY Administration Protocol Lorazepam 0.5 mg 04/28/20 23:28 04/29/20 02:03 Lorazepam 0.5 Mg Tablet PO 0.5 mg Q8H PRN Administration anxiety/restlessness Metoprolol Tartrate 5 mg 04/28/20 23:23 04/28/20 23:43 Metoprolol Tartrate 5 Mg/5 Ml Vial IVPUSH 5 mg Q6H PRN Administration HR>130 Metoprolol Tartrate 50 mg 04/29/20 12:00 04/29/20 12:58 Metoprolol Tartrate 50 Mg Tablet PO 50 mg RQ6H SCOTTY Administration Protocol Ondansetron HCl 4 mg 04/28/20 23:27 Ondansetron Hcl 4 Mg/2 Ml Vial IVPUSH Q6H PRN Nausea and Vomiting Pharmacy Consult 1 each 04/28/20 15:19 Consult Rx Perform Med Rec MISCELLANE ONCE PRN Consult order Quetiapine Fumarate 50 mg 04/28/20 21:00 04/28/20 22:10 Quetiapine Fumarate 50 Mg Tablet PO 50 mg BEDTIME SCOTTY Administration Sodium Chloride 3 ml 04/29/20 00:00 04/29/20 08:54 0.9 % Sodium Chloride Flush 3 Ml Syringe IVFLUSH 3 ml QSHIFT SCOTTY Administration Tamsulosin HCl 0.4 mg 04/29/20 09:00 04/29/20 08:53 Tamsulosin Hcl 0.4 Mg Capsule PO 0.4 mg DAILY SCOTTY Administration Zolpidem Tartrate 5 mg 04/28/20 20:15 Zolpidem Tartrate 5 Mg Tablet PO BEDTIME PRN Insomnia Labs CBC & Chem 7: 04/29/20 08:58 04/29/20 08:58 Assessment and Plan (1) Acute renal failure due to rhabdomyolysis: Status: Acute Assessment and Plan: 49-year-old male with a past medical history of hypertension, hyperlipidemia, diabetes, anxiety, depression, AFib on Eliquis, arthritis, polysubstance abuse presented to the hospital with a chief complaint of generalized weakness. Generalized weakness In setting of COVID 19 infection, AFib with RVR Chest x-ray negative for pneumonia Control underlying causes COVID-19 positive not hypoxic. Chest x-ray showed no acute findings Supportive care. Isolation precautions. Hyponatremia Pseudo hyponatremia in the setting of hyperglycemia MIRANDA Creatinine of 1.3 at this point Improved with IV fluids. Continue IVF, monitor BMP Intake and output Lactic acidosis Resolved Opiate dependence COWS protocol, ativan p.r.n.. Zofran p.r.n.. AFib with RVR The diltiazem drip. To stoma heart rate dropped to 80s Increase metoprolol does to 50 mg q.6 Cardiology evaluation Continued on home Eliquis Diabetes with hyperglycemia Continue insulin sliding scale and Lantus. DVT prophylaxis Eliquis you do
[2020-04-29 16:57] LABS: Glucose, Whole Blood 364 mg/dL (60-115)
--- NOTE | 2020-04-29 18:14 | PC.NURSE ---
WATCHING TV W/O COMPLAINTS. AWAITING DINNER. VITALS UPDATED
--- NOTE | 2020-04-29 19:14 | PC.NURSE ---
Report attempted x 1
--- NOTE | 2020-04-29 19:32 | PC.NURSE ---
Report called to ALTAGRACIA Multani. Per Nerissa, room is not cleaned yet but she will call this RN when room is ready for pt.
--- NOTE | 2020-04-29 21:19 | PC.NURSE ---
FLOOR CALLED BACK TO LET US KNOW ROOM WAS READY AT 20:55, REPORT HAD BEEN GIVEN BY AMBROSIO FRIAS. PT READY FOR TRANSPORT.
[2020-04-29] MEDS: QUEtiapine Fumarate 50 MG TABLET PO (21:41)
[2020-04-29] MEDS: Insulin Glargine,Hum.rec.anlog 100 UNIT/ML 10 ML VIAL 10 UNIT SUBCUT (21:41)
[2020-04-29] MEDS: Zolpidem Tartrate 5 MG TABLET PO (22:11)
[2020-04-30] VITALS (9 sets, daily range): BP systolic 134–148; BP diastolic 70–88; PULSE 75–88; RESP 16–20; TEMP 36.1–37.1; O2SAT 97–98; BMI 41.3
[2020-04-30] MEDS: 0.9 % Sodium Chloride Flush 3 ML SYRINGE IVFLUSH ×3 (00:21→15:59)
[2020-04-30] MEDS: Metoprolol Tartrate 50 MG TABLET PO ×3 (00:22→11:41)
[2020-04-30 00:50] LABS: Glucose, Whole Blood 177 mg/dL (60-115)
--- NOTE | 2020-04-30 04:19 | PC.NURSE ---
CARE ASSUMED 23;15...AWAKE..ALERT..ORIENTED X3..VSS...RESPIRATIONS EASY ON ROOM AIR...OOB AD-SAUL WITH STEADY GAIT...NON-COMPLIANT WITH DIABETIC DIET RESTRICTIONS...DENIES/OFFERS NO COMPLAINTS
[2020-04-30 06:44] LABS: Anion Gap 11 (12-20); Blood Urea Nitrogen 24 mg/dL (9-16); Calcium 8.9 mg/dL (8.4-10.2); Carbon Dioxide 31 mmol/L (22-29); Chloride 98 mmol/L (96-108); Creatinine Clr Calc Pharmacy 118.2; Estimated Glomerular Filt Rate > 60; Glucose Random 277 mg/dL (60-115); Potassium 4.8 mmol/L (3.3-5.1); Sodium 135 mmol/L (135-145)
[2020-04-30 07:08] LABS: Hematocrit 39.4 % (42-52); Hemoglobin 13.1 g/dl (14.0-18.0); Mean Corpuscular HGB Conc 33.2 g/dl (31.0-36.0); Mean Corpuscular Hemoglobin 29.8 pg (27.0-33.0); Mean Corpuscular Volume 89.5 fL (80-98); Mean Platelet Volume 10.5 fL (9.4-12.4); Platelet Count 295 X10*3/uL (160-400); Red Cell Distribution Width 11.9 % (11.0-16.0); White Blood Count 8.5 X10*3/uL (4.8-10.8)
[2020-04-30 07:56] LABS: Glucose, Whole Blood 279 mg/dL (60-115)
[2020-04-30] MEDS: Insulin Lispro 100 UNIT/ML 3 ML VIAL SUBCUT ×4 (08:01→20:19)
[2020-04-30] MEDS: Escitalopram Oxalate 20 MG TABLET PO (08:02)
[2020-04-30] MEDS: Tamsulosin HCL 0.4 MG CAPSULE PO (08:02)
[2020-04-30] MEDS: busPIRone HCl 10 MG TABLET 30 MG PO ×2 (08:02→20:20)
[2020-04-30] MEDS: Apixaban 5 MG TABLET PO ×2 (08:02→20:20)
[2020-04-30] MEDS: amLODIPine Besylate 5 MG TABLET PO (08:02)
[2020-04-30 11:25] LABS: Glucose, Whole Blood 332 mg/dL (60-115)
--- NOTE | 2020-04-30 12:49 | HO.PM.IMPN ---
Subjective Subjective Date of Service: 04/30/20 Interval History: The patient was seen and evaluated this morning Laying in bed, feels a little bit short of breath and tired but no chest pain converted back to sinus rhythm Denies any fever, chills or chest pain No reported other overnight events. Systemic review: No fever, chills but reports increased weakness No chest pain, feels palpitation Exertion and shortness of breath or coughing No abdominal pain, nausea or vomiting No urinary symptoms No any rash or wounds Physical Exam Vital Signs: Vital Signs: Last Vital Signs Temp 98.7 F 04/30/20 11:28 Pulse 78 04/30/20 11:28 Resp 20 04/30/20 11:28 BP 138/70 04/30/20 11:28 Pulse Ox 97 04/30/20 11:28 Body Mass Index 41.3 Const: Other: Constitutional : Alert, oriented, not in distress Neck : Normal inspection, Supple Cardiovascular : Irregular irregular, S1 S2, no lower extremity edema Respiratory : Fair bilateral air entry, bilateral fine basal crackles, wheezes or rhonchi Gastrointestinal: soft, lax, Normal bowel sounds, Non tender Skin : Warm/Dry, No rash Neurological : Alert & oriented x3, No focal deficit Objective Data Current Medications Generic Name Dose Route Start Last Admin Trade Name Freq PRN Reason Stop Dose Admin Acetaminophen 650 mg 04/28/20 20:15 Acetaminophen Supp 650 Mg Supp.Rect OR Q6H PRN Pain, Mild (Pain Scale 1-3) Amlodipine Besylate 5 mg 04/29/20 09:00 04/30/20 08:02 Amlodipine Besylate 5 Mg Tablet PO 5 mg DAILY SCOTTY Administration Protocol Apixaban 5 mg 04/28/20 21:00 04/30/20 08:02 Apixaban 5 Mg Tablet PO 5 mg BID SCOTTY Administration Buspirone HCl 30 mg 04/28/20 21:00 04/30/20 08:02 Buspirone Hcl 10 Mg Tablet PO 30 mg BID SCOTTY Administration Docusate Sodium 100 mg 04/28/20 20:15 Docusate Sodium 100 Mg Capsule PO DAILY PRN Constipation Escitalopram Oxalate 20 mg 04/29/20 09:00 04/30/20 08:02 Escitalopram Oxalate 20 Mg Tablet PO 20 mg DAILY SCOTTY Administration Diltiazem HCl 125 mg/ Sodium 125 mls @ 0 mls/hr 04/28/20 22:30 04/29/20 15:10 Chloride IVCONT Infused .Q0M SCOTTY Titration Protocol Per Protocol Insulin Glargine 10 unit 04/28/20 21:00 04/29/20 21:41 Insulin Glargine,Hum.Rec.Anlog 100 Unit/Ml 10 Ml Vial SUBCUT 10 unit BEDTIME SCOTTY Administration Insulin Human Lispro 0 unit 04/28/20 21:00 04/30/20 11:38 Insulin Lispro 100 Unit/Ml 3 Ml Vial SUBCUT 8 unit QIDACHS SCOTTY Administration Protocol Lorazepam 0.5 mg 04/28/20 23:28 04/29/20 22:11 Lorazepam 0.5 Mg Tablet PO 0.5 mg Q8H PRN Administration anxiety/restlessness Metoprolol Tartrate 5 mg 04/28/20 23:23 04/28/20 23:43 Metoprolol Tartrate 5 Mg/5 Ml Vial IVPUSH 5 mg Q6H PRN Administration HR>130 Metoprolol Tartrate 50 mg 04/29/20 12:00 04/30/20 11:41 Metoprolol Tartrate 50 Mg Tablet PO 50 mg RQ6H SCOTTY Administration Protocol Ondansetron HCl 4 mg 04/28/20 23:27 Ondansetron Hcl 4 Mg/2 Ml Vial IVPUSH Q6H PRN Nausea and Vomiting Pharmacy Consult 1 each 04/28/20 15:19 Consult Rx Perform Med Rec MISCELLANE ONCE PRN Consult order Quetiapine Fumarate 50 mg 04/28/20 21:00 04/29/20 21:41 Quetiapine Fumarate 50 Mg Tablet PO 50 mg BEDTIME SCOTTY Administration Sodium Chloride 3 ml 04/29/20 00:00 04/30/20 08:02 0.9 % Sodium Chloride Flush 3 Ml Syringe IVFLUSH 3 ml QSHIFT SCOTTY Administration Tamsulosin HCl 0.4 mg 04/29/20 09:00 04/30/20 08:02 Tamsulosin Hcl 0.4 Mg Capsule PO 0.4 mg DAILY SCOTTY Administration Zolpidem Tartrate 5 mg 04/28/20 20:15 04/29/20 22:11 Zolpidem Tartrate 5 Mg Tablet PO 5 mg BEDTIME PRN Administration Insomnia Labs CBC & Chem 7: 04/30/20 05:49 04/30/20 05:49 Microbiology Microbiology Results: Microbiology 04/28/20 15:55 Blood - Venous Blood Culture - Preliminary No growth after 24 hours. 04/28/20 15:55 Blood - Venous Blood Culture - Preliminary No growth after 24 hours. Assessment and Plan (1) Acute renal failure due to rhabdomyolysis: Status: Acute Assessment and Plan: 49-year-old male with a past medical history of hypertension, hyperlipidemia, diabetes, anxiety, depression, AFib on Eliquis, arthritis, polysubstance abuse presented to the hospital with a chief complaint of generalized weakness. AFib with RVR converted back to sinus rhythm dc diltiazem drip Increase MEtoprolol to 100 bid continue Eliquis Cardiology input appreciated COVID-19 positive not hypoxic. Chest x-ray showed no acute findings Supportive care. Isolation precautions. MIRANDA resolved dc IVF Intake and output Hyponatremia Pseudo hyponatremia in the setting of hyperglycemia Lactic acidosis Resolved Opiate dependence COWS protocol, ativan p.r.n.. Zofran p.r.n.. Diabetes with hyperglycemia Continue insulin sliding scale and Lantus. DVT prophylaxis Eliquis Dispo: Homeless pending care team eval and placement if possible (given +ve covid)
--- NOTE | 2020-04-30 12:49 | MHC.CM.PN ---
Addendum entered by Kimber Plata RN 04/30/20 16:10: Patient called to [facility] at [phone] for quarantine placement. They have a hotel in [place] available and will provide transportation to and from hotel as well as 3 meals per day while he is there. They also have a nurse checking symptoms daily. Patient needs his belongings from friend?s house. He will call friend to bring to him his belongings today. Provided patient with housing assistance and homeless group home list for placement once quarantine is complete. Discussed with hospitalistgreg tomorrow since patient not able to go to hotel this evening. Sent message to CARE team requesting they meet with patient regarding substance abuse. Original Note: Discussed with hospitalist, patient is reday for dc. Homeless and diagnosis of substance abuse. Hospitalist will enter order for CARE consult for for assistance with group home placement and substance abuse treatment
--- NOTE | 2020-04-30 15:59 | MHC.RECOVSUP ---
Recovery Support note: Patient is a 49 year old Polish speaking male who presented to [facility] due to not feeling well. Patient tested positive for COVID while in the hospital. This sql report writer and the Recovery Support Nurse met with patient to discuss his substance use and treatment options. Patient reports he uses heroin from time to time and that he does not plan to use anymore going forward. Patient reports he has previously tried Suboxone but he was not able to tolerate the taste. Discussed the danger inherent in opiate use and patient acknowledged, again repeating that he does not plan to use anymore and that he only used when he felt depressed. Patient reports he has tried therapy and medication for his depression but nothing works. Encouraged patient to be honest with his providers that he does not find the interventions helpful so that they can try other options and for him to keep an open mind regarding treatment. Patient acknowledged. Patient was concerned regarding his homelessness and discharge plan. Patient asked about possible rehab placement and this sql report writer explained that he has already gone through the detox process while in the hospital and that he would not be able to get into a CSS with the recent COVID positive test unless he can obtain the first test from 04/15. In addition, there are no CSS beds available at this time and he would likely have to follow up with the facility after discharge for placement. Patient reports he is not comfortable going to [place] for quarantine as it is far away and he is not from this area and he has no family in this area. Explained to patient that while it may not be what he had hoped, it is still a good option to keep safe and warm and patient acknowledged. Patient reports he has a friend in [place] who talks on the radio and has connections to make moves and that he would prefer going to her after discharge. Patient reports she may be able to pick him up. Explained to patient that if he tested positive for COVID on 04/15/20 and he has not had any symptoms, that there is likely a small risk that he is still contagious and that he should still wear a mask and avoid close contact with other people and that if he does decide he does not want to go to the senior care, he would have to inform whoever he stays with of his COVID status and to take precautions. Patient acknowledged. Discussed case with patient's Kimber FLORES.
[2020-04-30 16:17] LABS: Glucose, Whole Blood 224 mg/dL (60-115)
[2020-04-30 20:18] LABS: Glucose, Whole Blood 254 mg/dL (60-115)
[2020-04-30] MEDS: QUEtiapine Fumarate 50 MG TABLET PO (20:20)
[2020-04-30] MEDS: Insulin Glargine,Hum.rec.anlog 100 UNIT/ML 10 ML VIAL 18 UNIT SUBCUT (20:20)
[2020-04-30] MEDS: Metoprolol Tartrate 50 MG TABLET 100 MG PO (20:20)
[2020-05-01] VITALS (8 sets, daily range): BP systolic 131–144; BP diastolic 61–78; PULSE 69–84; RESP 16–20; TEMP 36.1–36.8; O2SAT 95–97
[2020-05-01] MEDS: 0.9 % Sodium Chloride Flush 3 ML SYRINGE IVFLUSH ×2 (00:08→08:18)
[2020-05-01 07:54] LABS: Glucose, Whole Blood 240 mg/dL (60-115)
[2020-05-01] MEDS: Insulin Lispro 100 UNIT/ML 3 ML VIAL SUBCUT ×4 (08:17→21:09)
[2020-05-01] MEDS: Apixaban 5 MG TABLET PO ×2 (09:02→21:15)
[2020-05-01] MEDS: busPIRone HCl 10 MG TABLET 30 MG PO ×2 (09:02→21:10)
[2020-05-01] MEDS: Tamsulosin HCL 0.4 MG CAPSULE PO (09:02)
[2020-05-01] MEDS: Escitalopram Oxalate 20 MG TABLET PO (09:02)
[2020-05-01] MEDS: amLODIPine Besylate 5 MG TABLET PO (09:02)
[2020-05-01] MEDS: Metoprolol Tartrate 50 MG TABLET 100 MG PO ×2 (09:03→21:10)
[2020-05-01 11:20] LABS: Glucose, Whole Blood 290 mg/dL (60-115)
--- NOTE | 2020-05-01 15:34 | MHC.CM.PN ---
Per MD discussion regarding dc planning, (see Previous CM note for dc plan that involved a hotel in [facility] that provides a room, transportation and meals) Patient does not want to go to [place]; he wants to stay with a friend in [place]. There is a concern for this Friend's wellbeing if Patient does not reveal his Covid positive status. MARK spoke with Luis at [phone], from [facility] in [place]. Luis stated that there are Quarantine rooms (unsure of availability at this time) for people who have not been tested in the past 7 days, but with this Patient known to be positive, the [place] [facility] appears to be the correct option for dc, not appropriate fora Quarantine room in a [facility]p, knowing that the Patient is currently positive. MARK will roselia.
--- NOTE | 2020-05-01 15:49 | MHC.CM.PN ---
CM met with pt to discuss his DC plan. Pt reports a plan to go to the [facility] [address] emergency residential in [place]. Pt states he needs to go to a friends house to cotton picker his belongings before he can go. CM reminds him that he asked the [facility] [address] hotline staff member about this yesterday and they clearly informed him they would not be making any stops. Pt asks if he could DC with a plan to walk to his friends home and then have the residential staff pick him up later. CM reminds him he is COVID-19 positive and would potentially be putting others in harms way. CM explained multiple times that he cannot be discharged to a place that would potentially expose others to COVID-19. Pt asked if he could walk to his friends apartment real quick and then come back to the hospital. CM reiterated the reasons pt would not be able to walk to his friends home or be discharged without an appropriate plan. Pt reports he is going to contact the [facility] [address] hotline and see if they would be able to bring him [facility]. CM reminded pt if they were able to transport him this evening, he would still have the same barriers to getting the items he reports needing from his friends. CM explained since they likely would not be able to arrange pick upfo9r today, pt should focus on finding someone to bring the things he needs here and plan to be picked up tomorrow morning for transport to [place]. Pt reports he is going to check with them anyway and dialed the hotline. Current DC plan is for pt to go to the emergency [facility] [address] residential [facility]. [facility] will arrange transportation from the hospital to the residential.
[2020-05-01 16:27] LABS: Glucose, Whole Blood 294 mg/dL (60-115)
--- NOTE | 2020-05-01 17:18 | PC.NURSE ---
pt planned to be d/c this evening - was being picked up by a frie. Pt very anxious to leave - tele monitor off, Rn told pt she had to wait to take IV ut - pt took his own IV out in room, Iv was sitting on bedside when RN went to room to discuss d.c plans, was already out- no bleeding at this time. Md requested RN to call pt ride to ensure they were aware he had COVID as he implied he was staying with them. Pt wouldnt give RN #, stating multiple times that she knew. MD to room - discussed reasoning of wanting to talk to ride, pt said it probably wont happen, they only speak Bulgarian anyways [employer] to room to see what pt friend said - at that time pt ride on the phone stated she was unaware of the COVID and that she could no longer pick him up. Case management working with pt for a placement for pt - pt stating he needs to oyster picker belongings first- explained to pt not possible at this time as has COVID and would need to go directly to where d/c to. Pt stating he will go there in the morning now. aware. aware and ok that IV and monitor off at this time. Pt being compliant otherwise at this time.
--- NOTE | 2020-05-01 18:54 | P.PNIM_ITS ---
Subjective Subjective Date of Service: 05/01/20 Interval History: Seen in f/u for AF, covid assymptomatic, AF is controlled, Review of Systems Gen: no fever Resp: no sob, no cough CV: no chest, no FISCHER, no leg edema GI: No n/v, no abd pain Neuro: No confusion Physical Exam 2 Vital Signs: Vital Signs: Last Vital Signs Temp 97.0 F 05/01/20 11:25 Pulse 69 05/01/20 11:25 Resp 16 05/01/20 11:25 BP 144/78 H 05/01/20 11:25 Pulse Ox 97 05/01/20 11:25 Body Mass Index 41.3 Const: Other: Constitutional : Alert, oriented, not in distress Neck : Normal inspection, Supple Cardiovascular : Irregular irregular, S1 S2, no lower extremity edema Respiratory : Fair bilateral air entry, bilateral fine basal crackles, wheezes or rhonchi Gastrointestinal: soft, lax, Normal bowel sounds, Non tender Skin : Warm/Dry, No rash Neurological : Alert & oriented x3, No focal deficit Objective Data Current Medications Generic Name Dose Route Start Last Admin Trade Name Freq PRN Reason Stop Dose Admin Acetaminophen 650 mg 04/28/20 20:15 Acetaminophen Supp 650 Mg Supp.Rect SD Q6H PRN Pain, Mild (Pain Scale 1-3) Amlodipine Besylate 5 mg 04/29/20 09:00 05/01/20 09:02 Amlodipine Besylate 5 Mg Tablet PO 5 mg DAILY SCOTTY Administration Protocol Apixaban 5 mg 04/28/20 21:00 05/01/20 09:02 Apixaban 5 Mg Tablet PO 5 mg BID SCOTTY Administration Buspirone HCl 30 mg 04/28/20 21:00 05/01/20 09:02 Buspirone Hcl 10 Mg Tablet PO 30 mg BID SCOTTY Administration Docusate Sodium 100 mg 04/28/20 20:15 Docusate Sodium 100 Mg Capsule PO DAILY PRN Constipation Escitalopram Oxalate 20 mg 04/29/20 09:00 05/01/20 09:02 Escitalopram Oxalate 20 Mg Tablet PO 20 mg DAILY SCOTTY Administration Diltiazem HCl 125 mg/ Sodium 125 mls @ 0 mls/hr 04/28/20 22:30 04/29/20 15:10 Chloride IVCONT Infused .Q0M SCOTTY Titration Protocol Per Protocol Insulin Glargine 18 unit 04/30/20 21:00 04/30/20 20:20 Insulin Glargine,Hum.Rec.Anlog 100 Unit/Ml 10 Ml Vial SUBCUT 18 unit BEDTIME SCOTTY Administration Insulin Human Lispro 0 unit 04/28/20 21:00 05/01/20 16:52 Insulin Lispro 100 Unit/Ml 3 Ml Vial SUBCUT 6 unit QIDACHS SCOTTY Administration Protocol Lorazepam 0.5 mg 04/28/20 23:28 04/29/20 22:11 Lorazepam 0.5 Mg Tablet PO 0.5 mg Q8H PRN Administration anxiety/restlessness Metoprolol Tartrate 5 mg 04/28/20 23:23 04/28/20 23:43 Metoprolol Tartrate 5 Mg/5 Ml Vial IVPUSH 5 mg Q6H PRN Administration HR>130 Metoprolol Tartrate 100 mg 04/30/20 21:00 05/01/20 09:03 Metoprolol Tartrate 50 Mg Tablet PO 100 mg BID SCOTTY Administration Protocol Ondansetron HCl 4 mg 04/28/20 23:27 Ondansetron Hcl 4 Mg/2 Ml Vial IVPUSH Q6H PRN Nausea and Vomiting Pharmacy Consult 1 each 04/28/20 15:19 Consult Rx Perform Med Rec MISCELLANE ONCE PRN Consult order Quetiapine Fumarate 50 mg 04/28/20 21:00 04/30/20 20:20 Quetiapine Fumarate 50 Mg Tablet PO 50 mg BEDTIME SCOTTY Administration Sodium Chloride 3 ml 04/29/20 00:00 05/01/20 16:00 0.9 % Sodium Chloride Flush 3 Ml Syringe IVFLUSH Not [facility] Tamsulosin HCl 0.4 mg 04/29/20 09:00 05/01/20 09:02 Tamsulosin Hcl 0.4 Mg Capsule PO 0.4 mg DAILY [facility] Administration Zolpidem Tartrate 5 mg 04/28/20 20:15 04/29/20 22:11 Zolpidem Tartrate 5 Mg Tablet PO 5 mg BEDTIME PRN Administration Insomnia Labs CBC & Chem 7: 04/30/20 05:49 04/30/20 05:49 Microbiology Microbiology Results: Microbiology 04/28/20 15:55 Blood - Venous Blood Culture - Preliminary No growth after 48 hours. 04/28/20 15:55 Blood - Venous Blood Culture - Preliminary No growth after 48 hours. Assessment and Plan (1) Acute renal failure due to rhabdomyolysis: Status: Acute Assessment and Plan: 49-year-old male with a past medical history of hypertension, hyperlipidemia, diabetes, anxiety, depression, AFib on Eliquis, arthritis, polysubstance abuse presented to the hospital with a chief complaint of generalized weakness. AFib with RVR converted back to sinus rhythm dc diltiazem drip Increase MEtoprolol to 100 bid continue Eliquis Cardiology input appreciated COVID-19 positive not hypoxic. Chest x-ray showed no acute findings Supportive care. Isolation precautions. MIRANDA resolved dc IVF Intake and output Hyponatremia Pseudo hyponatremia in the setting of hyperglycemia Lactic acidosis Resolved Opiate dependence COWS protocol, ativan p.r.n.. Zofran p.r.n.. Diabetes with hyperglycemia Continue insulin sliding scale and Lantus. DVT prophylaxis Eliquis Dispo: Homeless , will be discharged to [facility] in the morning
[2020-05-01 21:10] LABS: Glucose, Whole Blood 305 mg/dL (60-115)
[2020-05-01] MEDS: Insulin Glargine,Hum.rec.anlog 100 UNIT/ML 10 ML VIAL 18 UNIT SUBCUT (21:10)
[2020-05-01] MEDS: QUEtiapine Fumarate 50 MG TABLET PO (21:10)
[2020-05-02] VITALS (7 sets, daily range): BP systolic 131–150; BP diastolic 61–90; PULSE 70–78; RESP 18–20; TEMP 36.6–36.9; O2SAT 97–98
[2020-05-02 07:40] LABS: Glucose, Whole Blood 238 mg/dL (60-115)
[2020-05-02] MEDS: Insulin Lispro 100 UNIT/ML 3 ML VIAL SUBCUT ×2 (08:01→11:55)
[2020-05-02] MEDS: amLODIPine Besylate 5 MG TABLET PO (09:00)
[2020-05-02] MEDS: busPIRone HCl 10 MG TABLET 30 MG PO (09:00)
[2020-05-02] MEDS: Apixaban 5 MG TABLET PO (09:00)
[2020-05-02] MEDS: Escitalopram Oxalate 20 MG TABLET PO (09:01)
[2020-05-02] MEDS: Metoprolol Tartrate 50 MG TABLET 100 MG PO (09:01)
[2020-05-02] MEDS: Tamsulosin HCL 0.4 MG CAPSULE PO (09:01)
[2020-05-02 11:32] LABS: Glucose, Whole Blood 283 mg/dL (60-115)
--- NOTE | 2020-05-02 12:47 | P.DS_ITS ---
DS: Providers Provider Date of Service: 07/10/20 Date of admission: 04/28/20 20:15 Primary care physician: Julio Carter MD Consults: 04/28/20 23:24 Consult to Cardiology Routine Consulting Provider: Dwain Joseph Reason for consultation: afib with rvr 04/30/20 12:48 Consult to Care Team Routine Comment: Reason for consultation: Homeless for accomadation. DS: Diagnosis Discharge Diagnosis (1) Acute renal failure due to rhabdomyolysis: Status: Resolved DS: Medications Discharge Medications Home Medications: Previous Rx's Medication Instructions Recorded Eliquis 5 mg PO BID #60 tab 05/02/20 albuterol sulfate 2 puff PO Q8H PRN 30 Days #8.5 g 05/02/20 amlodipine 5 mg PO DAILY #30 tab 05/02/20 blood sugar diagnostic [FreeStyle #100 ea 05/02/20 Lite Strips] buspirone 30 mg PO TID #30 tab 05/02/20 diclofenac sodium 2 ea TOPICAL BID PRN #30 g 05/02/20 dulaglutide 0.75 mg SUBCUT QWEEK #2 ml 05/02/20 escitalopram oxalate 20 mg PO DAILY #30 tab 05/02/20 hydroxyzine HCl 25 mg PO TID PRN #30 tab 05/02/20 insulin glargine 30 unit SUBCUT DAILY #30 ml 05/02/20 lancets #100 ea 05/02/20 lidocaine 2 patch TOPICAL DAILY PRN #30 ea 05/02/20 lisinopril 30 mg PO DAILY #30 tab 05/02/20 metformin 1,000 mg PO BID #60 tab 05/02/20 metoprolol tartrate 100 mg PO BID #60 tab 05/02/20 pen needle, diabetic #50 ea 05/02/20 quetiapine 50 mg PO BEDTIME #30 tab 05/02/20 tamsulosin 0.4 mg PO DAILY #30 cap 05/02/20 zolpidem 10 mg PO BEDTIME PRN 30 Days #30 05/02/20 tab DS: Summary Hospital Course Hospital Course: Chief Complaint: Generalized weakness 49-year-old male with a past medical history of hypertension, hyperlipidemia, diabetes, anxiety, depression, asthma, BPH, osteoarthritis, AFib on Eliquis presented to the hospital with a chief complaint of generalized weakness. Patient is a poor historian heparin most of the history obtained from the ER staff and records. Reportedly patient appeared somnolent and was sweaty while waiting for his friend at the urgent care; patient was noted to be diaphoretic and noted somnolent; subsequently sent to the hospital for further evaluation. Patient denied any chest pain palpitations lightheadedness dizziness. Denies Fever chills cough; mentions that he uses cannabis. ER course:Per ER team patient noted to have hyponatremia, hyperkalemia, MIRANDA. COVID-19 positive but not hypoxic chest x-ray showed no acute findings. Patient fingerstick glucose was elevated to 6 100s. Patient was given couple L of normal saline. Patient's sodium improved from 126-132 in the ER. Reportedly patient is also homeless-admitted to the hospital for further management. Hospital course: 49-year-old male with a past medical history of hypertension, hyperlipidemia, diabetes, anxiety, depression, AFib on Eliquis, arthritis, polysubstance abuse presented to the hospital with a chief complaint of generalized weakness. AFib with RVR--He is probably not compliant. He was on IV cardizem and has been restarted on Metoprolol with dose increased to 100 bid. To continue Eliquis 5 bid. COVID-19 positive--Assymptomatic and just needs isolation MIRANDA--Resolved with IVF Hyponatremia Pseudo hyponatremia in the setting of hyperglycemia Lactic acidosis Resolved Opiate dependence COWS protocol, ativan p.r.n.. Zofran p.r.n.. Diabetes with hyperglycemia Continue insulin sliding scale and Lantus. DVT prophylaxis Eliquis Dispo: Homeless , will be discharged to [facility] in the morning Time Spent with Patient Time attestation: Total time spent providing and/or coordinating discharge services: Discharge coordination time: Greater than 30 minutes Physical Exam Vital Signs: Vital Signs: Last Vital Signs Temp 98.2 F 05/02/20 11:00 Pulse 75 05/02/20 11:00 Resp 18 05/02/20 11:00 BP 150/90 H 05/02/20 11:00 Pulse Ox 98 05/02/20 11:00 Body Mass Index 41.3 General: AO X 3, no acute distress Resp: CTA bilateral CVS: S1,S2,RRR GI: +BS, NT, no distention Skin: No rash Neuro: motor grossly intact Psych: appropriate affect DS: Data Data Completed and Pending Labs on day of discharge: Laboratory Results - last 24 hr 05/01/20 05/01/20 05/02/20 16:22 20:58 07:30 POC Glucose 294 H 305 H 238 H 05/02/20 11:26 POC Glucose 283 H Preliminary micro results at discharge 04/28/20 15:55 Blood Culture - Preliminary Blood - Venous No growth after 48 hours. 04/28/20 15:55 Blood Culture - Preliminary Blood - Venous No growth after 48 hours. Discharge Plan Discharge Anticipated Discharge Date/Time: 05/02/20 12:06 Patient Disposition: Home, Self-Care Discharge Diagnosis: covid Referrals: Julio Caretr MD [Primary Care Provider] - Discharge Medications: New (DME) FreeStyle Lite Strips Strip See Rx Instructions .ROUTE .MEDSUPPLY Qty: 100 RF: 11 zolpidem 10 mg tablet 10 mg PO BEDTIME PRN (Reason: insomnia) 30 Days Qty: 30 RF: 0 (DME) pen needle, diabetic 31 gauge x 3/16 needle See Rx Instructions ea subcut .MEDSUPPLY Qty: 50 RF: 0 (DME) lancets 28 gauge misc See Rx Instructions lancet topical TID Qty: 100 RF: 0 Continued amlodipine 5 mg tablet 5 mg PO DAILY Qty: 30 RF: 0 tamsulosin 0.4 mg capsule 0.4 mg PO DAILY Qty: 30 RF: 3 buspirone 30 mg tablet 30 mg PO TID Qty: 30 RF: 0 metformin 1,000 mg tablet 1,000 mg PO BID Qty: 60 RF: 3 lisinopril 30 mg tablet 30 mg PO DAILY Qty: 30 RF: 2 albuterol sulfate 90 mcg/actuation HFA aerosol inhaler 2 puff PO Q8H PRN (Reason: for muscle spasm) 30 Days Qty: 8.5 RF: 0 escitalopram oxalate 20 mg tablet 20 mg PO DAILY Qty: 30 RF: 0 quetiapine 50 mg tablet 50 mg PO BEDTIME Qty: 30 RF: 0 diclofenac sodium 1 % gel 2 ea topical BID PRN (Reason: Pain) Qty: 30 RF: 0 Eliquis 5 mg tablet 5 mg PO BID Qty: 60 RF: 0 dulaglutide 0.75 mg/0.5 mL pen injector 0.75 mg subcut QWEEK Qty: 2 RF: 3 insulin glargine 100 unit/mL (3 mL) insulin pen 30 unit subcut DAILY Qty: 30 RF: 0 Changed lidocaine 5 % adhesive patch,medicated 2 patch topical DAILY PRN (Reason: pain) Qty: 30 RF: 0 metoprolol tartrate 50 mg tablet 100 mg PO BID Qty: 60 RF: 0 hydroxyzine HCl 25 mg tablet 25 mg PO TID PRN (Reason: Anxiety) Qty: 30 RF: 0 Discontinued tramadol 50 mg tablet 50 mg PO TID PRN (Reason: pain) 30 Days Qty: 90 RF: 2 No Action tramadol 50 mg tablet 50 mg PO TID PRN (Reason: pain) RF: 0 (DME) pen needle, diabetic 31 gauge x 5/16 needle See Rx Instructions ea subcut .MEDSUPPLY Qty: 1200 RF: 0 Discharge Orders: Discharge Order (Routine); Ordered 05/01/20 Ordered By: Preston Lloyd Diet: advance to usual diet Activity on Discharge: As tolerated Stand Alone Forms: Patient Portal Discharge page Care Plan Goals: recovery from covid Health Concerns: atrial fibrilation, covid Plan of Treatment: Please stay in islation per CDC guideline for at least 10 days, wear mask all the time Assessment: covid 19 Discharge Date/Time: 05/02/20 14:29
--- NOTE | 2020-05-02 14:39 | MHC.CM.PN ---
MARK confirmed this morning that pt planned to go to the [address] in [facility]. Pt reported the intake person from the [facility] response team needed to speak to CM. CM called the number provided [phone] and spoke to Sara who obtained some information and then indicated the intake nurse for the longterm would be calling and want to speak to both this sql report writer and the pts nurse before the pt would be approved. MARK later received a call from Sherry, the nurse coordinator for the longterm. She asked several questions and then reported she would need to speak to the pt and the pts nurse before they could make a final decision. She reports the pt will need all of this medications with him. MARK explained he does not have them and there is no way to get the meds to him prior to DC. Sherry explained if prescriptions were sent to the [facility], she would be able to send someone to pick them up. CM messaged hospitalist who agreed to provide needed prescriptions. Sherry called MARK again following her conversations with the pt and his nurse, and indicated the pt would be approved for longterm admission. She reports the [facility]'s Dept provides transportation and will pick the pt up. She reports being unable to provide an exact time but says it would be before 1800 hours. The officer will call when they arrive for pt to be brought down. Pt will DC today to the [address] longterm in [facility]. Transportation will be provided by the [facility].
== END 2020-05-02 14:29 | disposition home or self-care (01) | DRG 137 ==
LOC: HO.ED 20:41 → HO.EDOVER 20:57 → HO.IMC 04-29 18:53
PROVIDERS: Physician Assistant Medical; Student in an Organized Health Care Education/Training Program; Admitting Provider Hospitalist; Emergency Provider Emergency Medicine; PCP Internal Medicine; Visit Provider Internal Medicine
DX: U07.1 COVID-19 (principal); N17.9 Acute kidney failure, unspecified; E87.2 Acidosis; E66.01 Morbid (severe) obesity due to excess calories; E11.65 Type 2 diabetes mellitus with hyperglycemia; E87.1 Hypo-osmolality and hyponatremia; F11.20 Opioid dependence, uncomplicated; M62.82 Rhabdomyolysis; G40.909 Epilepsy, unspecified, not intractable, without status epilepticus; D72.829 Elevated white blood cell count, unspecified; E86.0 Dehydration; F19.10 Other psychoactive substance abuse, uncomplicated; F32.9 Major depressive disorder, single episode, unspecified; F41.9 Anxiety disorder, unspecified; E78.5 Hyperlipidemia, unspecified; N32.81 Overactive bladder; Z59.0 Homelessness; Z88.0 Allergy status to penicillin; Z68.41 Body mass index [BMI] 40.0-44.9, adult; Z79.4 Long term (current) use of insulin; Z79.01 Long term (current) use of anticoagulants; Z79.899 Other long term (current) drug therapy
CPT/HCPCS: 0241U; 36415; 71046; 80048; 80076; 80307; 80320; 81001; 82009; 82550; 82947; 83605; 83735; 84484; 85025; 85027; 85379; 85610; 87040; 93005; 96361; 96374; 96375; 99284; 99291

== ENCOUNTER 2020-05-09 14:37 | Emergency (ER) | payer OTHER, SELFPAY ==
[2020-05-09 15:24] VITALS: BP 148/82; BP 158/90; PULSE 110; PULSE 150; RESP 20; TEMP 37.2; O2SAT 95; O2SAT 98; BMI 40.7
--- NOTE | 2020-05-09 15:30 | ED.OVERDOSE ---
HPI - Overdose General Chief Complaint: Overdose Stated Complaint: od Time Seen by Provider: 05/09/20 15:07 Source: patient and EMS Mode of arrival: EMS Limitations: no limitations History of Present Illness HPI Narrative: 49 y/o male with multiple medical problems presenting via EMS after an unintentional heroin overdose. He states he sniffed 5 bags of heroin today due chronic pain issues and increased life stressors. His him 2 months ago and he was due to go over to her house to say goodbye today. He used the heroin and then went to her house. The last thing he remembers is his ex- yelling at him that he seemed off. EMS was called and he wsa given 6 mg IN Narcan. He states he uses heroin a few times a week, not daily. He did not use to try to hurt himself or attempt suicide today. He does admit to increased depression. He has both a therapist and a psychiatrist in the community and has an appointment on [facility]. Of note patient's glucose 360 for EMS. He reports compliance with his nightly Lantus but misplaced his metformin prescription. He is not complaint with diabetic diet. He denies polyuria or polydipsia. MD complaint: accidental overdose Onset (ago): hour(s) Timing confirmed by: family member Intent: other (pain, stress) How Overdose Was Discovered: family/friend present at time Context: Intentional Overdose: relationship problems, financial issues and recent loss Context: Accidental Overdose: wanted to get high Associated symptoms: depression Treatments Prior to Arrival: narcan Related Data Previous Rx's Medication Instructions Recorded Eliquis 5 mg PO BID #60 tab 05/02/20 albuterol sulfate 2 puff PO Q8H PRN 30 Days #8.5 g 05/02/20 amlodipine 5 mg PO DAILY #30 tab 05/02/20 blood sugar diagnostic [FreeStyle #100 ea 05/02/20 Lite Strips] buspirone 30 mg PO TID #30 tab 05/02/20 diclofenac sodium 2 ea TOPICAL BID PRN #30 g 05/02/20 dulaglutide 0.75 mg SUBCUT QWEEK #2 ml 05/02/20 escitalopram oxalate 20 mg PO DAILY #30 tab 05/02/20 hydroxyzine HCl 25 mg PO TID PRN #30 tab 05/02/20 insulin glargine 30 unit SUBCUT DAILY #30 ml 05/02/20 lancets #100 ea 05/02/20 lidocaine 2 patch TOPICAL DAILY PRN #30 ea 05/02/20 lisinopril 30 mg PO DAILY #30 tab 05/02/20 metformin 1,000 mg PO BID #60 tab 05/02/20 metoprolol tartrate 100 mg PO BID #60 tab 05/02/20 pen needle, diabetic #50 ea 05/02/20 quetiapine 50 mg PO BEDTIME #30 tab 05/02/20 tamsulosin 0.4 mg PO DAILY #30 cap 05/02/20 zolpidem 10 mg PO BEDTIME PRN 30 Days #30 05/02/20 tab Allergies Allergy/AdvReac Type Severity Reaction Status Date / Time Penicillins [PENICILLINS] Allergy Unknown RASH Verified 04/07/20 15:31 Review of Systems Review of Systems: Constitutional: No Fever, No Chills Cardiovascular: No Chest Pain, + SOB (when anxious), No Orthopnea, No Edema Respiratory: No Cough, No Sputum, No Wheezing, No dyspnea Gastrointestinal: No Nausea, No Vomiting, No Diarrhea, No abdominal Pain Musculoskeletal: + joint pain (chronic), No Myalgias Skin: No Skin Lesions, No rash Neuro: No Weakness, No Numbness, No Dizziness, No Headache Psych: + Anxiety/Panic, + Depression, No SI Heme/Lymph: No Bruising, No Lymphadenopathy Endocrine: No Polyuria, No Polydipsia PMFSH Past Medical History Attestation statement: The following information was validated with the patient. Medical History Anxiety Arthritis Asthma Benign essential hypertension BPH (benign prostatic hyperplasia) Depression Diabetes Family history of thyroid disorder Insomnia Morbid obesity with BMI of 40.0-44.9, adult Overactive bladder Primary osteoarthritis of both knees Seizure Type 2 diabetes mellitus with hyperglycemia Surgical History No history of previous surgery Family History Family History Father ETOH abuse Mother Diabetes Arthritis of knee Hypertension Social History Social History Household Members: Other Housing: Homeless Alcohol intake: never Smoking Status: Never smoker Substance Use Type: Heroin Advance Directives: No Advance Directives Information Provided: Yes service: No Current occupational status: unemployed Physical Exam Vital Signs: Vital Signs: Last Vital Signs Temp 99.0 F 05/09/20 15:24 Pulse 110 H 05/09/20 15:24 Resp 20 05/09/20 15:24 BP 158/90 H 05/09/20 15:24 Pulse Ox 98 05/09/20 15:24 Body Mass Index 40.7 Appearance: Alert. Oriented X3. Tearful. Eyes: Pupils equal, round and reactive to light. ENT: Pharynx normal. Neck: Normal inspection. Neck supple. CVS: Normal heart rate and rhythm. Pulses normal. Respiratory: No respiratory distress. Breath sounds normal. Abdomen: Obese, Soft and nontender. +BS x4 Skin: Skin warm and dry. Normal skin color. Normal skin turgor. No rashes. Extremities: No lower extremity edema. Neuro: Oriented X 3. Speaks in clear full sentences, ambulatory with steady gait. Course Course Course Narrative: 49 y/o male presenting after unintentional heroin OD. s/p 6 mg IN narcan. AAO x4, depressed and crying stating, I really messed up. Adamantly denying SI. Will repeat POC and monitor in the ER for 2+ hours given Narcan administration. Reevaluation(s) Reevaluation #1: POC 500's after eating a sandwich on arrival. Will get lab work up to r/o DKA. IVF started. Reevaluation #2: Labs showing glucose 612 with pseudohyponatremia. No anion gap, negative ketones. No evidence of DKA. WBC 16.5 without fever or signs of infection. Patient given IVF and 10 units SQ lispro. Will reassess POC. He continues to be awake and alert, steady on his feet. Denying SI. Glucose improved to 300s after 1L IVF. Will give another and plan for d/c once improved. MDM - Overdose Lab Data Result diagrams: 05/09/20 16:07 05/09/20 16:07 Labs: Lab Results 05/09/20 05/09/20 05/09/20 Range/Units 15:53 16:07 16:07 WBC 16.5 H (4.8-10.8) X10*3/uL RBC 4.89 (4.60-5.80) X10*6/uL Hgb 14.6 (14.0-18.0) g/dl Hct 43.4 (42-52) % MCV 88.8 (80-98) fL MCH 29.9 (27.0-33.0) pg MCHC 33.6 (31.0-36.0) g/dl RDW 12.7 (11.0-16.0) % Plt Count 241 (160-400) X10*3/uL MPV 10.3 (9.4-12.4) fL Immature Gran % (Auto) 0.7 H (0.0-0.4) % Neut % (Auto) 88.3 H (45-73) % Lymph % (Auto) 5.1 L (20-40) % Archuleta % (Auto) 5.7 (2-11) % Eos % (Auto) 0.1 (0-4) % Baso % (Auto) 0.1 (0-2) % Lymph # (Auto) 0.8 L (1.2-4.9) X10*3/uL Archuleta # (Auto) 0.9 (0.1-1.2) X10*3/uL Eos # (Auto) 0.0 (0.0-0.4) X10*3/uL Baso # (Auto) 0.0 (0.0-0.2) X10*3/uL Abs Immat Gran (auto) 0.11 H (0.00-0.03) X10*3/uL Absolute Neuts (auto) 14.6 H (2.0-8.3) X10*3/uL Absolute Nucleated RBC 0.000 (0.0-0.012) X10*3/uL Nucleated RBC % (auto) 0.0 (0.0-0.2) /100WBC Sodium 129 L (135-145) mmol/L Potassium 4.4 (3.3-5.1) mmol/L Chloride 98 (96-108) mmol/L Carbon Dioxide 19 L (22-29) mmol/L Anion Gap 16 (12-20) BUN 15 (9-16) mg/dL Creatinine 1.43 H (0.5-1.4) mg/dL Estim Creat Clear Calc 88.6 Estimated GFR 53 POC Glucose 585 H* (60-115) mg/dL Random Glucose 612 H* (60-115) mg/dL Calcium 8.5 (8.4-10.2) mg/dL Acetone, Qual Negative (Negative) Discharge Plan Discharge Clinical Impression: Hyperglycemia Accidental heroin overdose Qualifiers: Encounter type: initial encounter Qualified Code(s): T40.1X1A - Poisoning by heroin, accidental (unintentional), initial encounter Patient Disposition: Home, Self-Care Instructions: Diabetic Hyperglycemia (ED), Opioid Use Disorder (ED) Additional Instructions: DO NOT USE HEROIN - IT CAN KILL YOU Recommend detox Recommend following up with your therapist and psychologist BENITO Your glucose was elevated in the 600's. You need to restart your metformin BENITO Recommend following up with your doctor this week. Your Lantus may need to be increased. Stick to a low carb and low sugar diet Monitor your glucose before meals and before bed Prescriptions: No Action (DME) FreeStyle Lite Strips Strip See Rx Instructions .ROUTE .MEDSUPPLY Qty: 100 RF: 11 amlodipine 5 mg tablet 5 mg PO DAILY Qty: 30 RF: 0 tamsulosin 0.4 mg capsule 0.4 mg PO DAILY Qty: 30 RF: 3 buspirone 30 mg tablet 30 mg PO TID Qty: 30 RF: 0 metformin 1,000 mg tablet 1,000 mg PO BID Qty: 60 RF: 3 lidocaine 5 % adhesive patch,medicated 2 patch topical DAILY PRN (Reason: pain) Qty: 30 RF: 0 metoprolol tartrate 50 mg tablet 100 mg PO BID Qty: 60 RF: 0 lisinopril 30 mg tablet 30 mg PO DAILY Qty: 30 RF: 2 hydroxyzine HCl 25 mg tablet 25 mg PO TID PRN (Reason: Anxiety) Qty: 30 RF: 0 zolpidem 10 mg tablet 10 mg PO BEDTIME PRN (Reason: insomnia) 30 Days Qty: 30 RF: 0 albuterol sulfate 90 mcg/actuation HFA aerosol inhaler 2 puff PO Q8H PRN (Reason: for muscle spasm) 30 Days Qty: 8.5 RF: 0 escitalopram oxalate 20 mg tablet 20 mg PO DAILY Qty: 30 RF: 0 quetiapine 50 mg tablet 50 mg PO BEDTIME Qty: 30 RF: 0 (DME) pen needle, diabetic 31 gauge x 3/16 needle See Rx Instructions ea subcut .MEDSUPPLY Qty: 50 RF: 0 diclofenac sodium 1 % gel 2 ea topical BID PRN (Reason: Pain) Qty: 30 RF: 0 (DME) lancets 28 gauge misc See Rx Instructions lancet topical TID Qty: 100 RF: 0 Eliquis 5 mg tablet 5 mg PO BID Qty: 60 RF: 0 dulaglutide 0.75 mg/0.5 mL pen injector 0.75 mg subcut QWEEK Qty: 2 RF: 3 insulin glargine 100 unit/mL (3 mL) insulin pen 30 unit subcut DAILY Qty: 30 RF: 0
[2020-05-09 15:58] LABS: Glucose, Whole Blood 585 mg/dL (60-115)
[2020-05-09] MEDS: 0.9 % Sodium Chloride 1,000 ML 999 ML IVCONT ×2 (15:59→17:00)
[2020-05-09 16:11] LABS: MANUAL DIFF FLAG NO
[2020-05-09 16:14] LABS: Basophils Percent Auto 0.1 % (0-2); Eosinophils Percent Auto 0.1 % (0-4); Hematocrit 43.4 % (42-52); Hemoglobin 14.6 g/dl (14.0-18.0); Imm Gran Abs Auto 0.11 X10*3/uL (0.00-0.03); Imm Gran Pct Auto 0.7 % (0.0-0.4); Lymphocytes Absolute Auto 0.8 X10*3/uL (1.2-4.9); Lymphocytes Percent Auto 5.1 % (20-40); Mean Corpuscular HGB Conc 33.6 g/dl (31.0-36.0); Mean Corpuscular Hemoglobin 29.9 pg (27.0-33.0); Mean Corpuscular Volume 88.8 fL (80-98); Mean Platelet Volume 10.3 fL (9.4-12.4); Monocytes Absolute Auto 0.9 X10*3/uL (0.1-1.2); Monocytes Percent Auto 5.7 % (2-11); Neutrophils Absolute Auto 14.6 X10*3/uL (2.0-8.3); Neutrophils Percent Auto 88.3 % (45-73); Platelet Count 241 X10*3/uL (160-400); Red Blood Count 4.89 X10*6/uL (4.60-5.80); Red Cell Distribution Width 12.7 % (11.0-16.0); White Blood Count 16.5 X10*3/uL (4.8-10.8)
[2020-05-09] MEDS: metFORMIN HCl 1,000 MG TABLET 1000 MG PO (16:40)
[2020-05-09 16:44] LABS: Acetone, serum QL Negative (Negative)
[2020-05-09 16:51] LABS: Anion Gap 16 (12-20); Blood Urea Nitrogen 15 mg/dL (9-16); Calcium 8.5 mg/dL (8.4-10.2); Carbon Dioxide 19 mmol/L (22-29); Chloride 98 mmol/L (96-108); Creatinine Clr Calc Pharmacy 88.6; Estimated Glomerular Filt Rate 53; Glucose Random 612 mg/dL (60-115); Potassium 4.4 mmol/L (3.3-5.1); Sodium 129 mmol/L (135-145)
[2020-05-09] MEDS: Insulin Lispro 100 UNIT/ML 3 ML VIAL 10 UNIT SUBCUT (17:21)
--- NOTE | 2020-05-09 17:46 | MHC.RECOVSUP ---
? Reason for consult Overdose o Current location: ED17H o Identified substance use concern: Heroin - Overdose - Support ? Intervention: o Community resources provided o Harm reduction discussion ? Plan: to follow up with a peer recovery center in [place] ([facility]) where patient is moving to ? Additional information:Patient refuse services Stated that the overdose was a mistake and that patient will be moving to [place]. I provided patient with resources in [place].
[2020-05-09 18:02] LABS: Glucose, Whole Blood 377 mg/dL (60-115)
--- NOTE | 2020-05-09 19:39 | PC.NURSE ---
PT CONTINUES TO BE A&OX3, SPEAKING IN CLEAR FULL SENTENCES. RESP EVEN AND NONLABOURED. AMBULATING STEADILY WITH WALKER TO BATHROOM NUMEROUS TIMES. POC LOWERED, HAS EATEN DELI MEATS, JELLO.
[2020-05-09 19:43] LABS: Glucose, Whole Blood 298 mg/dL (60-115)
[2020-05-09 19:44] VITALS: BP 155/67; PULSE 103; RESP 16; TEMP 36.4; O2SAT 94
== END 2020-05-09 20:40 | disposition home or self-care (01) ==
PROVIDERS: Physician Assistant; Emergency Provider Emergency Medicine Emergency Medical Services
DX: T40.1X1A Poisoning by heroin, accidental (unintentional), initial encounter (principal); Y92.9 Unspecified place or not applicable; G89.29 Other chronic pain; E11.65 Type 2 diabetes mellitus with hyperglycemia; F11.19 Opioid abuse with unspecified opioid-induced disorder; Z63.5 Disruption of family by separation and divorce; Z71.89 Other specified counseling; Z79.899 Other long term (current) drug therapy
CPT/HCPCS: 36415; 80048; 82009; 82947; 85025; 96360; 96361; 99284

== ENCOUNTER 2020-05-10 13:31 | Emergency (ER) | payer OTHER, SELFPAY ==
[2020-05-10 13:47] VITALS: BP 142/64; BP 150/86; PULSE 120; RESP 16; TEMP 36.1; O2SAT 95; O2SAT 98; BMI 42.3
--- NOTE | 2020-05-10 13:54 | ED.GENADULT ---
HPI - General Adult General Chief complaint: ETOH/Substance Use Stated complaint: USED 1 BAG OF HEROIN 3 HOURS AGO, VITALS STABLE Time Seen by Provider: 05/10/20 13:54 Source: EMS Mode of arrival: EMS Limitations: no limitations History of Present Illness HPI narrative: 49-year-old male here complaining of feeling generally unwell after using 1 bag of heroin 2 hours prior to arrival. Tells me that he started the bag of heroin. No cocaine use. No additional substance use. Tells me he occasionally uses heroin. No SI or HI. Did not require Narcan in the field. On arrival patient is alert and oriented. No physical complaints except general malaise. Not interested in detox. Not interested in Suboxone. Related Data Previous Rx's Medication Instructions Recorded Eliquis 5 mg PO BID #60 tab 05/02/20 albuterol sulfate 2 puff PO Q8H PRN 30 Days #8.5 g 05/02/20 amlodipine 5 mg PO DAILY #30 tab 05/02/20 blood sugar diagnostic [FreeStyle #100 ea 05/02/20 Lite Strips] buspirone 30 mg PO TID #30 tab 05/02/20 diclofenac sodium 2 ea TOPICAL BID PRN #30 g 05/02/20 dulaglutide 0.75 mg SUBCUT QWEEK #2 ml 05/02/20 escitalopram oxalate 20 mg PO DAILY #30 tab 05/02/20 hydroxyzine HCl 25 mg PO TID PRN #30 tab 05/02/20 insulin glargine 30 unit SUBCUT DAILY #30 ml 05/02/20 lancets #100 ea 05/02/20 lidocaine 2 patch TOPICAL DAILY PRN #30 ea 05/02/20 lisinopril 30 mg PO DAILY #30 tab 05/02/20 metformin 1,000 mg PO BID #60 tab 05/02/20 metoprolol tartrate 100 mg PO BID #60 tab 05/02/20 pen needle, diabetic #50 ea 05/02/20 quetiapine 50 mg PO BEDTIME #30 tab 05/02/20 tamsulosin 0.4 mg PO DAILY #30 cap 05/02/20 zolpidem 10 mg PO BEDTIME PRN 30 Days #30 05/02/20 tab Allergies Allergy/AdvReac Type Severity Reaction Status Date / Time Penicillins [PENICILLINS] Allergy Unknown RASH Verified 04/07/20 15:31 Review of Systems Review of Systems: Yes all other systems are reviewed and are negative Constitutional: Constitutional: Reports no additional constitutional complaints, Denies body ache(s), Denies chills, Denies fever(s), Denies headache(s), Reports malaise and Denies weakness Eyes: Eyes: Reports no additional eye complaints and Denies change in vision ENT: Reports system reviewed and no additional complaints, except as documented, Denies dizziness, Denies headache(s), Denies nasal congestion, Denies nasal discharge and Denies neck pain Cardiovascular: Cardiovascular: Reports no additional cardiovascular complaints, Denies chest pain, Denies leg edema and Denies dyspnea Respiratory: Respiratory: Reports no additional respiratory complaints, Denies cough and Denies dyspnea Gastrointestinal: Gastrointestinal: Reports no additional gastrointestinal complaints, Denies abdominal pain, Denies diarrhea, Denies nausea and Denies vomiting Genitourinary: Genitourinary: Denies urinary incontinence Musculoskeletal: Musculoskeletal: Reports no additional musculoskeletal complaints, Denies back pain, Denies arthralgias, Denies joint swelling, Denies neck pain, Denies numbness and Denies tingling Integumentary/Breasts: Skin/Breast: Reports system reviewed and no additional complaints, except as docu and Denies rash Neurologic: Reports system reviewed and no additional complaints, except as documented, Denies Abnormal speech present, Denies dizziness, Denies headache(s), Denies numbness, Denies tingling and Denies weakness PMFSH Past Medical History Attestation statement: The following information was validated with the patient. Source: old records reviewed and nursing notes reviewed Medical History Anxiety Arthritis Asthma Benign essential hypertension BPH (benign prostatic hyperplasia) Depression Diabetes Family history of thyroid disorder Insomnia Morbid obesity with BMI of 40.0-44.9, adult Overactive bladder Primary osteoarthritis of both knees Seizure Type 2 diabetes mellitus with hyperglycemia Surgical History No history of previous surgery Family History Family History Father ETOH abuse Mother Diabetes Arthritis of knee Hypertension Social History Social History Household Members: Other Housing: Homeless Alcohol intake: never Smoking Status: Never smoker Substance Use Type: Heroin Advance Directives: No Advance Directives Information Provided: No service: No Current occupational status: unemployed Physical Exam Vital Signs: Vital Signs: Last Vital Signs Temp 97 F 05/10/20 13:47 Pulse 120 H 05/10/20 13:47 Resp 16 05/10/20 13:47 BP 150/86 H 05/10/20 13:47 Pulse Ox 95 05/10/20 13:47 Body Mass Index 42.3 Const: General: cooperative, healthy appearing, comfortable and no acute distress Orientation/consciousness: patient oriented x3 Limitations: no limitations HENMT: Head: Yes normal to inspection Ears: hearing grossly normal bilaterally General nose exam: Normal external nose present Face and sinus: Yes normal facial exam Mouth: Normal oral and palatal mucosa present Throat: Yes posterior oropharynx normal Eyes: General: appearance normal, both eyes and all related structures Pupils: Equal, round and reactive pupils present Neck: Neck: Yes normal visual inspection Chest: Chest palpation & inspection: normal inspection of the chest Resp: Effort & Inspection: normal respiratory effort Auscultation: clear to auscultation bilaterally Cardio: Rate: tachycardic Rhythm: regular rhythm Peripheral pulses: Peripheral pulses 2+ throughout GI: Inspection: Yes normal to inspection Palpation (GI): Soft to palpation and nontender Auscultation: normal bowel sounds Back/Spine/Pelvis: Thoracic/Lumbar Spine: thoracic and lumbar spine normal to inspection Skin: General skin exam: no rashes or lesions noted Neuro: General: patient oriented x3, no focal motor deficits and normal sensation to monofilament Cranial nerves: Yes Equal, round and reactive pupils present Cognition (Neuro): normal cognition Speech: No Abnormal speech present Gait exam (Neuro): Normal gait present Motor exam (neuro): 5/5 motor strength present throughout Extrem: General: Yes normal to inspection Course Course Course Narrative: 49-year-old male here with malaise after using heroin afternoon. No physical complaints besides some malaise. No SI or HI. Does not want detox or substance use assistance. No Narcan required the field. On arrival alert and oriented with some mild diaphoresis. He does have some mild tachycardia and hypertension likely secondary to substance use. Met with control and recovery combat rescue in ED. Reviewed worrisome signs/symptoms with patient and when to return to ED. Comfortable with discharge home. Discharge Plan Discharge Clinical Impression: Heroin use Patient Disposition: Home, Self-Care Instructions: Opioid Safety (ED), Opioid Use Disorder (ED) Prescriptions: No Action (DME) FreeStyle Lite Strips Strip See Rx Instructions .ROUTE .MEDSUPPLY Qty: 100 RF: 11 amlodipine 5 mg tablet 5 mg PO DAILY Qty: 30 RF: 0 tamsulosin 0.4 mg capsule 0.4 mg PO DAILY Qty: 30 RF: 3 buspirone 30 mg tablet 30 mg PO TID Qty: 30 RF: 0 metformin 1,000 mg tablet 1,000 mg PO BID Qty: 60 RF: 3 lidocaine 5 % adhesive patch,medicated 2 patch topical DAILY PRN (Reason: pain) Qty: 30 RF: 0 metoprolol tartrate 50 mg tablet 100 mg PO BID Qty: 60 RF: 0 lisinopril 30 mg tablet 30 mg PO DAILY Qty: 30 RF: 2 hydroxyzine HCl 25 mg tablet 25 mg PO TID PRN (Reason: Anxiety) Qty: 30 RF: 0 zolpidem 10 mg tablet 10 mg PO BEDTIME PRN (Reason: insomnia) 30 Days Qty: 30 RF: 0 albuterol sulfate 90 mcg/actuation HFA aerosol inhaler 2 puff PO Q8H PRN (Reason: for muscle spasm) 30 Days Qty: 8.5 RF: 0 escitalopram oxalate 20 mg tablet 20 mg PO DAILY Qty: 30 RF: 0 quetiapine 50 mg tablet 50 mg PO BEDTIME Qty: 30 RF: 0 (DME) pen needle, diabetic 31 gauge x 3/16 needle See Rx Instructions ea subcut .MEDSUPPLY Qty: 50 RF: 0 diclofenac sodium 1 % gel 2 ea topical BID PRN (Reason: Pain) Qty: 30 RF: 0 (DME) lancets 28 gauge misc See Rx Instructions lancet topical TID Qty: 100 RF: 0 Eliquis 5 mg tablet 5 mg PO BID Qty: 60 RF: 0 dulaglutide 0.75 mg/0.5 mL pen injector 0.75 mg subcut QWEEK Qty: 2 RF: 3 insulin glargine 100 unit/mL (3 mL) insulin pen 30 unit subcut DAILY Qty: 30 RF: 0 Referrals: Julio Carter MD [Primary Care Provider] - 2 days Interventions: ED Discharge Assessment Last Done: 05/10/20 15:07 Discharge Date/Time: 05/10/20 15:08
--- NOTE | 2020-05-10 14:03 | MHC.RECOVSUP ---
? Reason for consult:Continuity of care o Current location: Bed 22H o Identified substance use concern: Heroin - Overdose - Support ? Intervention: o Community resources provided o Harm reduction discussion ? Plan: o Patient to follow up with [facility] after discharge ? Additional information:Pt refuses detox or MAT.
== END 2020-05-10 15:08 | disposition home or self-care (01) ==
PROVIDERS: Emergency Provider Emergency Medicine; PCP Internal Medicine
DX: F11.90 Opioid use, unspecified, uncomplicated (principal); R00.0 Tachycardia, unspecified; I10 Essential (primary) hypertension; E11.9 Type 2 diabetes mellitus without complications; F12.90 Cannabis use, unspecified, uncomplicated; Z79.01 Long term (current) use of anticoagulants; Z79.4 Long term (current) use of insulin
CPT/HCPCS: 99283

== ENCOUNTER 2020-05-15 17:43 | Emergency (ER) | payer OTHER, SELFPAY ==
--- NOTE | ~2020-05-15 | XR_ITS ---
EXAMINATION: LEFT KNEE 4 VIEWS RIGHT KNEE 4 VIEWS CLINICAL INFORMATION: Pain and swelling COMPARISON: None TECHNIQUE: As above nonweightbearing FINDINGS: Moderate size joint effusion bilaterally. There is symmetrical moderate degenerativechanges with marginal spurring. Early narrowing of joint spaces. There is no focal bony lesion or deformity. No subluxation. XR/XR knee LT 4V IMPRESSION: Nonspecific joint effusions. Symmetrical osteoarthritis of moderate severity. No focal lesion.
--- NOTE | ~2020-05-15 | XR_ITS ---
EXAMINATION: LEFT KNEE 4 VIEWS RIGHT KNEE 4 VIEWS CLINICAL INFORMATION: Pain and swelling COMPARISON: None TECHNIQUE: As above nonweightbearing FINDINGS: Moderate size joint effusion bilaterally. There is symmetrical moderate degenerativechanges with marginal spurring. Early narrowing of joint spaces. There is no focal bony lesion or deformity. No subluxation. XR/XR knee RT 4V IMPRESSION: Nonspecific joint effusions. Symmetrical osteoarthritis of moderate severity. No focal lesion.
[2020-05-15 17:49] VITALS: BP 163/86; PULSE 98; RESP 18; TEMP 36.6; O2SAT 90; BMI 39.6
[2020-05-15 18:42] LABS: Glucose, Whole Blood 317 mg/dL (60-115)
[2020-05-15 18:52] LABS: MANUAL DIFF FLAG NO
[2020-05-15 18:54] LABS: Basophils Percent Auto 0.3 % (0-2); Eosinophils Absolute Auto 0.1 X10*3/uL (0.0-0.4); Hematocrit 40.4 % (42-52); Hemoglobin 13.3 g/dl (14.0-18.0); Imm Gran Abs Auto 0.01 X10*3/uL (0.00-0.03); Imm Gran Pct Auto 0.1 % (0.0-0.4); Lymphocytes Absolute Auto 1.4 X10*3/uL (1.2-4.9); Lymphocytes Percent Auto 19.6 % (20-40); Mean Corpuscular HGB Conc 32.9 g/dl (31.0-36.0); Mean Corpuscular Hemoglobin 30.1 pg (27.0-33.0); Mean Corpuscular Volume 91.4 fL (80-98); Monocytes Absolute Auto 0.7 X10*3/uL (0.1-1.2); Monocytes Percent Auto 9.1 % (2-11); Neutrophils Percent Auto 69.9 % (45-73); Platelet Count 255 X10*3/uL (160-400); Red Blood Count 4.42 X10*6/uL (4.60-5.80); Red Cell Distribution Width 12.7 % (11.0-16.0); White Blood Count 7.2 X10*3/uL (4.8-10.8)
[2020-05-15 19:09] LABS: Ethanol < 10 mg/dL
[2020-05-15 19:14] LABS: Glucose Urine UA >=1000 MG/DL (NEG); Leukocyte Esterase Urine NEG (NEG); Nitrite Urine NEG (NEG); Urine Blood NEG (NEG); Urine Ketones NEG (NEG); Urine Protein NEG (NEG-TRACE)
--- NOTE | 2020-05-15 19:16 | ED_ITS ---
HPI - General Adult General Chief complaint: General Medical Stated complaint: knee pain Time Seen by Provider: 05/15/20 18:06 Source: patient and EMS Mode of arrival: EMS History of Present Illness HPI narrative: 49 y/o male with multiple medical issues and active polysubstance abuse (had 2 ED visits here for OD/use this week) who presents after he was found wandering. Police were on scene. Patient admitted to smoking marijuana just [employer]ACH[employer]. He states his last IN heroin use was yesterday. He is homeless and has a lot of psychosocial stressors. He suffers from chronic pain. He had pin point pupils in triage and was falling asleep. He reports bilateral knee pain which is acute on chronic due to his known arthritis. He denies trauma, warmth or redness. He states they are chronically swollen and he has seen orthopedics in the past who will not perform knee replacement on him. MD complaint: bilateral knee pain Onset (ago): month(s) Location: lower extremity Radiation: non-radiation Severity: moderate Quality: aching Pain Consistency: constant Relieving factors: none Exacerbating factors: movement Associated symptoms: denies other symptoms Treatments prior to arrival: none Related Data Previous Rx's Medication Instructions Recorded Eliquis 5 mg PO BID #60 tab 05/02/20 albuterol sulfate 2 puff PO Q8H PRN 30 Days #8.5 g 05/02/20 amlodipine 5 mg PO DAILY #30 tab 05/02/20 blood sugar diagnostic [FreeStyle #100 ea 05/02/20 Lite Strips] buspirone 30 mg PO TID #30 tab 05/02/20 diclofenac sodium 2 ea TOPICAL BID PRN #30 g 05/02/20 dulaglutide 0.75 mg SUBCUT QWEEK #2 ml 05/02/20 escitalopram oxalate 20 mg PO DAILY #30 tab 05/02/20 hydroxyzine HCl 25 mg PO TID PRN #30 tab 05/02/20 insulin glargine 30 unit SUBCUT DAILY #30 ml 05/02/20 lancets #100 ea 05/02/20 lidocaine 2 patch TOPICAL DAILY PRN #30 ea 05/02/20 lisinopril 30 mg PO DAILY #30 tab 05/02/20 metformin 1,000 mg PO BID #60 tab 05/02/20 metoprolol tartrate 100 mg PO BID #60 tab 05/02/20 pen needle, diabetic #50 ea 05/02/20 quetiapine 50 mg PO BEDTIME #30 tab 05/02/20 tamsulosin 0.4 mg PO DAILY #30 cap 05/02/20 zolpidem 10 mg PO BEDTIME PRN 30 Days #30 05/02/20 tab Allergies Allergy/AdvReac Type Severity Reaction Status Date / Time Penicillins [PENICILLINS] Allergy Unknown RASH Verified 04/07/20 15:31 Review of Systems Review of Systems: Constitutional: No Fever, No Chills Cardiovascular: No Chest Pain, No SOB Respiratory: No Cough, No Sputum Gastrointestinal: No Nausea, No Vomiting, No Diarrhea, No abdominal Pain Musculoskeletal: + joint pain, + Myalgias Skin: No Skin Lesions, No rash Neuro: No Weakness, No Numbness, No Dizziness, No Headache Psych: No Anxiety/Panic, + Depression, No SI Heme/Lymph: No Bruising, No Lymphadenopathy Endocrine: No Polyuria, No Polydipsia PMFSH Past Medical History Attestation statement: The following information was validated with the patient. Medical History Anxiety Arthritis Asthma Benign essential hypertension BPH (benign prostatic hyperplasia) Depression Diabetes Family history of thyroid disorder Insomnia Morbid obesity with BMI of 40.0-44.9, adult Overactive bladder Primary osteoarthritis of both knees Seizure Type 2 diabetes mellitus with hyperglycemia Surgical History No history of previous surgery Family History Family History Father ETOH abuse Mother Diabetes Arthritis of knee Hypertension Social History Social History Household Members: Other Housing: Homeless Alcohol intake: current Alcohol intake frequency: a few times a month Smoking Status: Never smoker Smoked in Last 30 Days: No Use of substances other than those prescribed or required for medical reasons: Yes Substance Use Type: Heroin and Marijuana Substance Use Frequency: Chronic Longstanding Last Used Substance: Just Prior to Admission Advance Directives: No Advance Directives Information Provided: Yes service: No Current occupational status: unemployed Physical Exam Vital Signs: Vital Signs: Last Vital Signs Temp 98.3 F 05/15/20 20:28 Pulse 109 H 05/15/20 20:28 Resp 13 05/15/20 20:28 BP 169/94 H 05/15/20 20:28 Pulse Ox 98 05/15/20 20:28 Body Mass Index 39.6 Appearance: Alert. Oriented X3. No acute distress. Eyes: Pupils 3mm and reactive bilaterally. ENT: Pharynx normal. Neck: Normal inspection. Neck supple. CVS: Normal heart rate and rhythm. Pulses normal. Respiratory: No respiratory distress. Breath sounds normal. Abdomen: Obese, Softly distended and nontender. +BS x4 Skin: Skin warm and dry. Normal skin color. Normal skin turgor. No rashes. Extremities: mild bilateral knee tenderness throughout with mild swelling suprapatellar area bilaterally. no erythema, warmth, point tenderness Neuro: Oriented X 3. Conversant, non-focal. Appears under the influence of drugs Course Course Course Narrative: 49 y/o male presenting with knee pain after he was found wandering. He admits to marijuana use but denies heroin use today. Conversant and awake now, no need for narcan at this time. He admits to not taking his medications this week. Will get basic labs and POC as well as bilateral knee XR' s, ?effusions. No evidence of infection. Reevaluation(s) Reevaluation #1: POC 300's. XR's show nonspecific joint effusions, symmetrical osteoarthritis of moderate severity, no focal lesions. Will place in RENUKA wraps for comfort. Reevaluation #2: At 8:10 PM patient found in the sitting position with his head on the trash can in the bathroom. Extremely diaphoretic and lethargic. 2 security guards and nurse assisted patient into a wheelchair and he was brought into a room - patient with respiratory depression, pinpoint pupils. IN Narcan administered with good effect. Tachycardic 120s and hypertensive. Tearful and crying. All possessitions to decon and patient changed over. Will monitor respiratory status closely, may require additional Narcan. Reevaluation #3: 8:55 pm - patient sleeping but arouses to voice. no hypoxia. will continue to monitor. Signed out to Niki HERNANDEZ who will assume care. Medical Decision Making Lab Data Result diagrams: 05/15/20 18:46 05/15/20 19:18 Labs: Lab Results 05/15/20 05/15/20 05/15/20 Range/Units 18:38 18:46 18:46 WBC 7.2 (4.8-10.8) X10*3/uL RBC 4.42 L (4.60-5.80) X10*6/uL Hgb 13.3 L (14.0-18.0) g/dl Hct 40.4 L (42-52) % MCV 91.4 (80-98) fL MCH 30.1 (27.0-33.0) pg MCHC 32.9 (31.0-36.0) g/dl RDW 12.7 (11.0-16.0) % Plt Count 255 (160-400) X10*3/uL MPV 10.0 (9.4-12.4) fL Immature Gran % (Auto) 0.1 (0.0-0.4) % Neut % (Auto) 69.9 (45-73) % Lymph % (Auto) 19.6 L (20-40) % Teller % (Auto) 9.1 (2-11) % Eos % (Auto) 1.0 (0-4) % Baso % (Auto) 0.3 (0-2) % Lymph # (Auto) 1.4 (1.2-4.9) X10*3/uL Teller # (Auto) 0.7 (0.1-1.2) X10*3/uL Eos # (Auto) 0.1 (0.0-0.4) X10*3/uL Baso # (Auto) 0.0 (0.0-0.2) X10*3/uL Abs Immat Gran (auto) 0.01 (0.00-0.03) X10*3/uL Absolute Neuts (auto) 5.0 (2.0-8.3) X10*3/uL Absolute Nucleated RBC 0.000 (0.0-0.012) X10*3/uL Nucleated RBC % (auto) 0.0 (0.0-0.2) /100WBC Hold Blue Top SEE NOTE Sodium (135-145) mmol/L Potassium (3.3-5.1) mmol/L Chloride (96-108) mmol/L Carbon Dioxide (22-29) mmol/L Anion Gap (12-20) BUN (9-16) mg/dL Creatinine (0.5-1.4) mg/dL Estim Creat Clear Calc Estimated GFR POC Glucose 317 H (60-115) mg/dL Random Glucose (60-115) mg/dL Calcium (8.4-10.2) mg/dL Magnesium (1.6-2.6) mg/dL Urine Color Urine Appearance Urine pH (5.0-8.0) Ur Specific [place] (1.005-1.025) Urine Protein (NEG-TRACE) MG/DL Urine Glucose (UA) (NEG) MG/DL Urine Ketones (NEG) MG/DL Urine Blood (NEG) Urine Nitrite (NEG) Ur Leukocyte Esterase (NEG) Urine RBC (0) /HPF Urine WBC (0-4) /HPF Ur Squamous Epith Cells /LPF Urine Bacteria /LPF Urine Mucus /LPF Urine Opiates Screen (Not Detect) Ur Barbiturates Screen (Not Detect) Ur Phencyclidine Scrn (Not Detect) Ur Amphetamines Screen (Not Detect) U Benzodiazepines Scrn (Not Detect) Urine Cocaine Screen (Not Detect) U Marijuana (THC) Screen (Not Detect) Ethyl Alcohol mg/dL 05/15/20 05/15/20 05/15/20 Range/Units 18:46 18:46 18:47 WBC (4.8-10.8) X10*3/uL RBC (4.60-5.80) X10*6/uL Hgb (14.0-18.0) g/dl Hct (42-52) % MCV (80-98) fL MCH (27.0-33.0) pg MCHC (31.0-36.0) g/dl RDW (11.0-16.0) % Plt Count (160-400) X10*3/uL MPV (9.4-12.4) fL Immature Gran % (Auto) (0.0-0.4) % Neut % (Auto) (45-73) % Lymph % (Auto) (20-40) % Teller % (Auto) (2-11) % Eos % (Auto) (0-4) % Baso % (Auto) (0-2) % Lymph # (Auto) (1.2-4.9) X10*3/uL Teller # (Auto) (0.1-1.2) X10*3/uL Eos # (Auto) (0.0-0.4) X10*3/uL Baso # (Auto) (0.0-0.2) X10*3/uL Abs Immat Gran (auto) (0.00-0.03) X10*3/uL Absolute Neuts (auto) (2.0-8.3) X10*3/uL Absolute Nucleated RBC (0.0-0.012) X10*3/uL Nucleated RBC % (auto) (0.0-0.2) /100WBC Hold Blue Top Sodium (135-145) mmol/L Potassium (3.3-5.1) mmol/L Chloride (96-108) mmol/L Carbon Dioxide (22-29) mmol/L Anion Gap (12-20) BUN (9-16) mg/dL Creatinine (0.5-1.4) mg/dL Estim Creat Clear Calc Estimated GFR POC Glucose (60-115) mg/dL Random Glucose (60-115) mg/dL Calcium (8.4-10.2) mg/dL Magnesium (1.6-2.6) mg/dL Urine Color YELLOW Urine Appearance CLEAR Urine pH 6.0 (5.0-8.0) Ur Specific [place] 1.020 (1.005-1.025) Urine Protein NEG (NEG-TRACE) MG/DL Urine Glucose (UA) >=1000 H (NEG) MG/DL Urine Ketones NEG (NEG) MG/DL Urine Blood NEG (NEG) Urine Nitrite NEG (NEG) Ur Leukocyte Esterase NEG (NEG) Urine RBC 0-2 (0) /HPF Urine WBC 0-2 (0-4) /HPF Ur Squamous Epith Cells TRACE /LPF Urine Bacteria NONE /LPF Urine Mucus TRACE /LPF Urine Opiates Screen POSITIVE H (Not Detect) Ur Barbiturates Screen Not Detected (Not Detect) Ur Phencyclidine Scrn Not Detected (Not Detect) Ur Amphetamines Screen Not Detected (Not Detect) U Benzodiazepines Scrn Not Detected (Not Detect) Urine Cocaine Screen Not Detected (Not Detect) U Marijuana (THC) Screen POSITIVE H (Not Detect) Ethyl Alcohol < 10 mg/dL 03/06/21 03/06/21 Range/Units 19:18 20:16 WBC (4.8-10.8) X10*3/uL RBC (4.60-5.80) X10*6/uL Hgb (14.0-18.0) g/dl Hct (42-52) % MCV (80-98) fL MCH (27.0-33.0) pg MCHC (31.0-36.0) g/dl RDW (11.0-16.0) % Plt Count (160-400) X10*3/uL MPV (9.4-12.4) fL Immature Gran % (Auto) (0.0-0.4) % Neut % (Auto) (45-73) % Lymph % (Auto) (20-40) % Teller % (Auto) (2-11) % Eos % (Auto) (0-4) % Baso % (Auto) (0-2) % Lymph # (Auto) (1.2-4.9) X10*3/uL Teller # (Auto) (0.1-1.2) X10*3/uL Eos # (Auto) (0.0-0.4) X10*3/uL Baso # (Auto) (0.0-0.2) X10*3/uL Abs Immat Gran (auto) (0.00-0.03) X10*3/uL Absolute Neuts (auto) (2.0-8.3) X10*3/uL Absolute Nucleated RBC (0.0-0.012) X10*3/uL Nucleated RBC % (auto) (0.0-0.2) /100WBC Hold Blue Top Sodium 136 (135-145) mmol/L Potassium 4.5 (3.3-5.1) mmol/L Chloride 99 (96-108) mmol/L Carbon Dioxide 30 H (22-29) mmol/L Anion Gap 12 (12-20) BUN 10 (9-16) mg/dL Creatinine 1.03 (0.5-1.4) mg/dL Estim Creat Clear Calc 124.8 Estimated GFR > 60 POC Glucose 252 H (60-115) mg/dL Random Glucose 337 H D (60-115) mg/dL Calcium 8.9 (8.4-10.2) mg/dL Magnesium 1.9 (1.6-2.6) mg/dL Urine Color Urine Appearance Urine pH (5.0-8.0) Ur Specific [place] (1.005-1.025) Urine Protein (NEG-TRACE) MG/DL Urine Glucose (UA) (NEG) MG/DL Urine Ketones (NEG) MG/DL Urine Blood (NEG) Urine Nitrite (NEG) Ur Leukocyte Esterase (NEG) Urine RBC (0) /HPF Urine WBC (0-4) /HPF Ur Squamous Epith Cells /LPF Urine Bacteria /LPF Urine Mucus /LPF Urine Opiates Screen (Not Detect) Ur Barbiturates Screen (Not Detect) Ur Phencyclidine Scrn (Not Detect) Ur Amphetamines Screen (Not Detect) U Benzodiazepines Scrn (Not Detect) Urine Cocaine Screen (Not Detect) U Marijuana (THC) Screen (Not Detect) Ethyl Alcohol mg/dL Critical Care Time Critical Care Time Critical Care Time: Yes Total Critical Care Time: 35 Attestation: I attest to critical care time spent caring for this patient with acute heroin overdose leading to respiratory depression, requiring IN narcan and close monitoring and frequent bedside reassessments. Discharge Plan Discharge Clinical Impression: Osteoarthritis Qualifiers: Osteoarthritis location: knee Osteoarthritis type: unspecified Laterality: bilateral Qualified Code(s): M17.0 - Bilateral primary osteoarthritis of knee Heroin overdose Qualifiers: Encounter type: initial encounter Injury intent: accidental or unintentional Qualified Code(s): T40.1X1A - Poisoning by heroin, accidental (unintentional), initial encounter Patient Disposition: Home, Self-Care Instructions: Osteoarthritis (ED), Self-Care Measures with a Chronic Disease (ED), Opioid Use Disorder (ED) Additional Instructions: TAKE ALL OF YOUR MEDICATIONS PRESCRIBED. DO NOT USE HEROIN, IT CAN KILL YOU RECOMMEND DETOX Take Tylenol 975 mg every 6 hours, do not exceed 4,000 mg in 1 day. Use ice several times per day to your knees. Wear RENUKA wraps for comfort. Your x-rays show arthritis and fluid on the knee. Recommend follow up with orthopedics. Prescriptions: No Action (DME) FreeStyle Lite Strips Strip See Rx Instructions .ROUTE .MEDSUPPLY Qty: 100 RF: 11 amlodipine 5 mg tablet 5 mg PO DAILY Qty: 30 RF: 0 tamsulosin 0.4 mg capsule 0.4 mg PO DAILY Qty: 30 RF: 3 buspirone 30 mg tablet 30 mg PO TID Qty: 30 RF: 0 metformin 1,000 mg tablet 1,000 mg PO BID Qty: 60 RF: 3 lidocaine 5 % adhesive patch,medicated 2 patch topical DAILY PRN (Reason: pain) Qty: 30 RF: 0 metoprolol tartrate 50 mg tablet 100 mg PO BID Qty: 60 RF: 0 lisinopril 30 mg tablet 30 mg PO DAILY Qty: 30 RF: 2 hydroxyzine HCl 25 mg tablet 25 mg PO TID PRN (Reason: Anxiety) Qty: 30 RF: 0 zolpidem 10 mg tablet 10 mg PO BEDTIME PRN (Reason: insomnia) 30 Days Qty: 30 RF: 0 albuterol sulfate 90 mcg/actuation HFA aerosol inhaler 2 puff PO Q8H PRN (Reason: for muscle spasm) 30 Days Qty: 8.5 RF: 0 escitalopram oxalate 20 mg tablet 20 mg PO DAILY Qty: 30 RF: 0 quetiapine 50 mg tablet 50 mg PO BEDTIME Qty: 30 RF: 0 (DME) pen needle, diabetic 31 gauge x 3/16 needle See Rx Instructions ea subcut .MEDSUPPLY Qty: 50 RF: 0 diclofenac sodium 1 % gel 2 ea topical BID PRN (Reason: Pain) Qty: 30 RF: 0 (DME) lancets 28 gauge misc See Rx Instructions lancet topical TID Qty: 100 RF: 0 Eliquis 5 mg tablet 5 mg PO BID Qty: 60 RF: 0 dulaglutide 0.75 mg/0.5 mL pen injector 0.75 mg subcut QWEEK Qty: 2 RF: 3 insulin glargine 100 unit/mL (3 mL) insulin pen 30 unit subcut DAILY Qty: 30 RF: 0 Referrals: Marcelo Arroyo MD [Physician] - 2 days (osteoarthritis of bilateral knees with joint effusions)
[2020-05-15 19:17] LABS: Appearance Urine CLEAR; Color Urine YELLOW
[2020-05-15 19:23] LABS: Amphetamine Screen Urine Not Detected (Not Detect); Barbiturates, Urine Not Detected (Not Detect); Benzodiazepines Screen Urine Not Detected (Not Detect); Cannabinoid Screen Urine POSITIVE (Not Detect); Cocaine Screen Urine Not Detected (Not Detect); Opiate Screen Urine POSITIVE (Not Detect); Phencyclidine Screen Urine Not Detected (Not Detect)
[2020-05-15 19:25] LABS: Mucus Urine TRACE /LPF; RBC Urine 0-2 /HPF (0); Squamous Epithelial Cell Urine TRACE /LPF; WBC Urine 0-2 /HPF (0-4)
[2020-05-15 19:50] LABS: Anion Gap 12 (12-20); Blood Urea Nitrogen 10 mg/dL (9-16); Calcium 8.9 mg/dL (8.4-10.2); Carbon Dioxide 30 mmol/L (22-29); Chloride 99 mmol/L (96-108); Creatinine Clr Calc Pharmacy 124.8; Estimated Glomerular Filt Rate > 60; Glucose Random 337 mg/dL (60-115); Magnesium 1.9 mg/dL (1.6-2.6); Potassium 4.5 mmol/L (3.3-5.1); Sodium 136 mmol/L (135-145)
[2020-05-15 20:22] LABS: Glucose, Whole Blood 252 mg/dL (60-115)
[2020-05-15 20:28] VITALS: BP 169/94; PULSE 109; RESP 13; TEMP 36.8; O2SAT 98
--- NOTE | 2020-05-15 20:40 | PC.NURSE ---
pt was not in stretcher in the beginning of shift when this rn assess and introduce. pt was found on bathroom by clinical staff rn on the floor across from bed 19h. Moved to bed 22 for cardiac monitoring. report given to pauline.
--- NOTE | 2020-05-15 20:46 | PC.NURSE ---
THIS RN WAS WORKING WITH ANOTHER PATIENT NEAR ROOM 18H WHERE [facility] WAS LOCATED, THIS RN NOTED PT HAD BEEN GONE FROM BED FOR AN EXTENDED PERIOD OF TIME AND PT'S BELONGINGS WERE STILL ON BED, THIS RN WENT TO CLOSEST BATHROOM TO FIND THE DOOR LOCKED, THIS RN KNOCKED ON DOOR W/ NO RESPONSE, THROUGH CRACK OF DOOR THIS RN ABLE TO VISUALIZE A BODY CLEARLY NOT IN STANDING POSITION. THIS CALLED SECURITY AND WAS ABLE TO UNLOCK DOOR, PT FOUND TO SEMI FOWLERS POSITION SITTING ON FLOOR, HEAD RESTING ON EDGE OF TRASHCAN, PT NOTABLY DIAPHORETIC, RESPONSIVE TO STRONG TACTILE STIMULI. PT AWOKE, STS HE HAD JUST FALLEN ASLEEP, MULTIPLE FULL AND EMPTY HEROIN BAGS NOTED ON FLOOD NEXT TO PT WHICH HE DENIED USING. PT UNABLE TO STAND W/OUT ASSISTANCE, ONCE IN STANDING POSITION APPEARED TO BE FALLING ASLEEP AGAIN, WHEELCHAIR BROUGHT TO BATHROOM, PROVIDER DANIELITO NOTIFIED. PT BROUGHT TO RM 22 FOR CARDIAC MONITORING, 4MG IN NARCAN ADMINISTERED, PT QUICKLY BECAME AWAKE AND RESPONSIVE, CONTINUED TO DENY HEROIN USE, STS IT WAS HIS DIABETES, BLOOD GLUCOSE CHECKED FOUND TO BE 252. PT ST ON TELE, PT BEGAN YAWNING, SHIVERING, STATING HE DID NOT FEEL WELL. ALL PT'S CLOTHING REMOVED W/ SECURITY AT BEDSIDE, PT CHANGED INTO HOSPITAL ATTIRE. PT RESTING IN S/F POSITION BREATHING WITH EASE.
[2020-05-15] MEDS: Naloxone HCl Nasal 4 MG SPRAY NOSTRILALT (20:56)
[2020-05-15 21:47] VITALS: BP 150/82; PULSE 100; RESP 14; O2SAT 98
[2020-05-15 23:30] VITALS: BP 153/90; PULSE 101; RESP 12; O2SAT 97
--- NOTE | 2020-05-15 23:43 | PC.NURSE ---
Pt a&o, no sob or chest pain. pt able to answer questions appropriately. pt given something to drink and call casas within reach.
--- NOTE | 2020-05-16 00:21 | PC.NURSE ---
pt tolerating po fluids and snack. awaiting discharge aware and in agreeance with plan of care.
--- NOTE | 2020-05-16 00:22 | PC.NURSE ---
pt is clam and sleeping.
[2020-05-16 00:36] VITALS: BP 151/82; PULSE 103; RESP 17; O2SAT 98
--- NOTE | 2020-05-16 00:37 | PC.NURSE ---
pt given joie taj . vitals signs taken and call casas in reach.
[2020-05-16 04:00] VITALS: RESP 16
[2020-05-16 06:49] VITALS: BP 150/75; PULSE 91; RESP 18; TEMP 36.7; O2SAT 97
--- NOTE | 2020-05-16 07:02 | MHC.CARE ---
CARE Team spoke with patient denies SI/HI, he is homeless and seeking for skilled nursing a list of information of providers and shelters were provided for him.
[2020-05-16 07:58] LABS: Glucose, Whole Blood 352 mg/dL (60-115)
--- NOTE | 2020-05-16 08:10 | PC.NURSE ---
PT REQUESTED TO SEE CARE TEAM AGAIN. HE STATES HE IS HOMELESS AND WANTS MORE RESOURCES. SHE IS AT THE BEDSIDE OFFERING PT THE OPTIONS OF CARE.
--- NOTE | 2020-05-16 08:20 | PC.NURSE ---
CARE TEAM OFFERED PT SEVERAL OPTIONS FOR FOLLOW UP CARE INCLUDING CAB TO N FOR ASSESSMENT HE IS AGITATED AND NARROW FOCUSED ON REMAINING IN THE ED
--- NOTE | 2020-05-16 09:31 | PC.NURSE ---
Addendum entered by Rajesh Lundberg 05/16/20 09:33: HE STATES HE HAS BELONGINGS HERE IN [place] AND DOES NOT WANT TO LEAVE THEM BEHIND. HE ASKED FOR TRANSPORTATION TO LEFT HAND Original Note: PT CONTINUED TO REFUSE TRANSPORTATION TO [facility] FOR FURTHER EVALUATION OFFERED BY CARE TEAM. HE WAS PROVIDED DETOX LIST AND LONG-TERM LIST FOR POST DISCHARGE CARE PLAN.
== END 2020-05-16 09:39 | disposition home or self-care (01) ==
PROVIDERS: Physician Assistant; Emergency Provider Internal Medicine; PCP Internal Medicine
DX: M17.0 Bilateral primary osteoarthritis of knee (principal); T40.1X1A Poisoning by heroin, accidental (unintentional), initial encounter; R06.03 Acute respiratory distress; F11.10 Opioid abuse, uncomplicated; Y92.238 Other place in hospital as the place of occurrence of the external cause; I10 Essential (primary) hypertension; E11.9 Type 2 diabetes mellitus without complications; J45.909 Unspecified asthma, uncomplicated; Z91.14 Patient's other noncompliance with medication regimen; R00.0 Tachycardia, unspecified
CPT/HCPCS: 36415; 73564; 80048; 80307; 80320; 81001; 81003; 82947; 83735; 85025; 99284; 99291

== ENCOUNTER 2020-12-07 13:33 | Outpatient (REF) | payer OTHER, SELFPAY | END 2020-12-07 13:34 | disposition home or self-care (01) | LOC: HO.LAB 13:33 | PROVIDERS: PCP Internal Medicine; Visit Provider Internal Medicine | DX: Z20.822 Contact with and (suspected) exposure to COVID-19 (principal) | CPT/HCPCS: C9803; U0003; U0005 ==

== ENCOUNTER 2020-12-07 15:04 | Emergency (ER) | payer OTHER, SELFPAY ==
[2020-12-07 15:30] VITALS: BP 116/80; PULSE 86; RESP 16; TEMP 37.2; O2SAT 97; BMI 37.5
--- NOTE | 2020-12-07 16:16 | ED_ITS ---
HPI - Skin/Abscess/Foreign Bdy General Chief complaint: Skin/Abscess/Foreign Body Stated complaint: RASH Time Seen by Provider: 12/07/20 15:45 Source: patient Mode of arrival: ambulatory Limitations: no limitations History of Present Illness HPI narrative: 50-year-old male here with multiple complaints. Patient tells me that he recently is homeless and got kicked out of the house that he was living in. Because of this he lost some of his medications. He is requesting refills for his tramadol, Ambien and lidoderm patches. He tells me that he did try to call today but was on the phone for too long so decided to come here instead. Patient also complaining of a rash under his left breast. He tells me it was very itchy and after he scratched it it opened up and now he has larger rash there. No fevers or chills. When asked about his blood sugars he tells me he has not checked his blood sugar in a while and is intermittently compliant with his diabetes medications. He ran out of his strips. Patient is also complaining of rash and swelling to his penis. He tells me that he has a history of balanitis and was using a topical steroid which seemed to help and he is requesting a refill for this. Also complaining of chronic bilateral knee pain with no new injury or trauma.. Related Data Previous Rx's Medication Instructions Recorded albuterol sulfate 90 mcg/actuation 2 puff PO Q8H PRN 30 Days #8.5 g 05/02/20 aerosol inhaler amlodipine 5 mg tablet 5 mg PO DAILY #30 tab 05/02/20 apixaban 5 mg tablet (Eliquis) 5 mg PO BID #60 tab 05/02/20 buspirone 30 mg tablet 30 mg PO TID #30 tab 05/02/20 diclofenac sodium 1 % topical gel 2 ea TOPICAL BID PRN #30 g 05/02/20 escitalopram oxalate 20 mg tablet 20 mg PO DAILY #30 tab 05/02/20 hydroxyzine HCl 25 mg tablet 25 mg PO TID PRN #30 tab 05/02/20 lancets 28 gauge #100 ea 05/02/20 lidocaine 5 % topical patch 2 patch TOPICAL DAILY PRN #30 ea 05/02/20 metoprolol tartrate 50 mg tablet 100 mg PO BID #60 tab 05/02/20 quetiapine 50 mg tablet 50 mg PO BEDTIME #30 tab 05/02/20 tamsulosin 0.4 mg capsule 0.4 mg PO DAILY #30 cap 05/02/20 blood sugar diagnostic (FreeStyle #100 ea 07/16/20 Lite Strips) dulaglutide 0.75 mg/0.5 mL 0.75 mg SUBCUT QWEEK #2 ml 07/16/20 subcutaneous pen injector insulin glargine 100 unit/mL (3 30 unit SUBCUT QPM 30 Days #15 ml 07/16/20 mL) subcutaneous pen (Lantus Solostar U-100 Insulin) metformin 1,000 mg tablet 1,000 mg PO BID #60 tab 07/16/20 pen needle, diabetic 31 gauge x #50 ea 07/16/2005/25 tramadol 50 mg tablet 50 mg PO TID PRN 30 Days #90 tab 09/27/20 lisinopril 30 mg tablet 30 mg PO DAILY #30 tab 11/17/20 zolpidem 10 mg tablet 10 mg PO BEDTIME PRN 30 Days #30 11/17/20 tab blood sugar diagnostic (FreeStyle #100 ea 12/07/20 Test) clotrimazole 1 % topical cream 1 appl TOPICAL TID #30 g 12/07/20 lidocaine 5 % topical patch 1 patch TOPICAL DAILY #15 ea 12/07/20 (Lidoderm) mupirocin 2 % topical ointment 1 appl TOPICAL TID #22 g 12/07/20 triamcinolone acetonide 0.1 % 1 appl TOPICAL DAILY #30 g 12/07/20 topical ointment Allergies Allergy/AdvReac Type Severity Reaction Status Date / Time Penicillins [PENICILLINS] Allergy Unknown RASH Verified 06/16/20 11:58 Review of Systems Review of Systems: Yes all other systems are reviewed and are negative Constitutional: Constitutional: Reports no additional constitutional complaints, Denies body ache(s), Denies chills, Denies fever(s), Denies headache(s) and Denies weakness Eyes: Eyes: Reports no additional eye complaints and Denies change in vision ENT: Reports system reviewed and no additional complaints, except as documented, Denies dizziness, Denies headache(s), Denies nasal congestion, Denies nasal discharge and Denies neck pain Cardiovascular: Cardiovascular: Reports no additional cardiovascular compla ints, Denies chest pain, Denies leg edema and Denies dyspnea Respiratory: Respiratory: Reports no additional respiratory complaints, Denies cough and Denies dyspnea Gastrointestinal: Gastrointestinal: Reports no additional gastrointestinal complaints, Denies abdominal pain, Denies diarrhea, Denies nausea and Denies vomiting Genitourinary: Genitourinary: Denies urinary incontinence Musculoskeletal: Musculoskeletal: Reports no additional musculoskeletal complaints, Denies back pain, Reports arthralgias, Denies joint swelling, Denies neck pain, Denies numbness and Denies tingling Integumentary/Breasts: Skin/Breast: Reports system reviewed and no additional complaints, except as docu and Reports rash Neurologic: Reports system reviewed and no additional complaints, except as documented, Denies Abnormal speech present, Denies dizziness, Denies headache(s), Denies numbness, Denies tingling and Denies weakness PMFSH Past Medical History Attestation statement: The following information was validated with the patient. Source: old records reviewed and nursing notes reviewed Medical History Anxiety Arthritis Asthma Benign essential hypertension BPH (benign prostatic hyperplasia) Depression Diabetes Family history of thyroid disorder Insomnia Morbid obesity with BMI of 40.0-44.9, adult Overactive bladder Primary osteoarthritis of both knees Seizure Type 2 diabetes mellitus with hyperglycemia Surgical History No history of previous surgery Family History Family History Father ETOH abuse Mother Diabetes Arthritis of knee Hypertension Social History Social History Household Members: Other Household Members Other:: homeless Housing: Homeless Do you presently have visiting nurse or other home services: No Alcohol intake: current Alcohol intake frequency: a few times a month Substance Use Type: Heroin and Marijuana Advance Directives: No Advance Directives Information Provided: No service: No Current occupational status: unemployed Physical Exam Vital Signs: Vital Signs: Last Vital Signs Temp 99.0 F 12/07/20 15:30 Pulse 86 12/07/20 15:30 Resp 16 12/07/20 15:30 BP 116/80 12/07/20 15:30 Pulse Ox 97 12/07/20 15:30 Body Mass Index 37.5 Const: General: cooperative, healthy appearing, comfortable and no acute distress Orientation/consciousness: patient oriented x3 Limitations: no limitations HENMT: Head: Yes normal to inspection Ears: hearing grossly normal bilaterally and TM's normal bilaterally General nose exam: Normal external nose present Face and sinus: Yes normal facial exam Mouth: Normal oral and palatal mucosa present Throat: Yes posterior oropharynx normal, Yes tonsils normal and Yes uvula midline Eyes: General: appearance normal, both eyes and all related structures Pupils: Equal, round and reactive pupils present Neck: Neck: Yes normal visual inspection Chest: Chest palpation & inspection: normal inspection of the chest Chest/axillae images: 1. Small area of erythema and excoriation underneath breast fold Resp: Effort & Inspection: normal respiratory effort Auscultation: clear to auscultation bilaterally Cardio: Rate: regular rate Rhythm: regular rhythm Peripheral pulses: Peripheral pulses 2+ throughout GI: Inspection: Yes normal to inspection Palpation (GI): Soft to palpation and nontender Auscultation: normal bowel sounds : Other: Deferred exam Back/Spine/Pelvis: Thoracic/Lumbar Spine: thoracic and lumbar spine normal to inspection Skin: General skin exam: no rashes or lesions noted Neuro: General: patient oriented x3, no focal motor deficits and normal sensation to monofilament Cranial nerves: Yes Equal, round and reactive pupils present Cognition (Neuro): normal cognition Speech: No Abnormal speech present Gait exam (Neuro): Normal gait present Motor exam (neuro): 5/5 motor strength present throughout Extrem: General: Yes normal to inspection, Yes no pedal edema and Yes no calf tenderness Course Course Course Narrative: 50 yo male here with multiple requests after being kicked out of his place of living and losing some of his medications and diabetes supplies. Requesting refills for ambien and tramadol. I explained to the patient he needs to speak to his PCP about this and I will not be refilling these medications. He does have a PCP and he will call tomorrow. He hung up on them today due to waiting on the phone for to long. Also requesting diabetes strips for glucometer. I will send this to the pharmacy. Requesting lidoderm patches for chronic knee pain. Will give small supply. Requesting refill for topical steroid for his balanitis. Deferred exam. On review of chart patient was on triamcinolone which he tells me helps. Rash under left breast likely tinea but superimposed mild infection d/t patient itching the site. Will have patient use mixture clotrimazole and mupirocin on site. I explained to the patient at length that he needs to follow up with his PCP for his multiple complaints. Reviewed worrisome signs and symptoms of when to return to the emergency department. Comfortable discharge home. MDM - Skin/Abscess/Foreign Bdy Medical Records Attestation: I reviewed the patient's medical records. Lab Data Attestation: I reviewed the patient's lab results. Discharge Plan Discharge Clinical Impression: Tinea, Balanitis, Bilateral chronic knee pain, Diabetes Patient Disposition: Home, Self-Care Instructions: Balanitis (ED), Knee Pain (ED), Skin Yeast Infection (ED), Type 2 Diabetes Management for Adults (ED) Additional Instructions: Mix the clotrimazole and mupirocin together and apply to under the left breast area Use the triamcinolone on the genital region Follow-up with your PCP tomorrow for your additional concerns Prescriptions: New mupirocin 2 % ointment 1 appl topical TID Qty: 22 RF: 0 clotrimazole 1 % cream 1 appl topical TID Qty: 30 RF: 0 triamcinolone acetonide 0.1 % ointment 1 appl topical DAILY Qty: 30 RF: 0 lidocaine [Lidoderm] 5 % adhesive patch,medicated 1 patch topical DAILY Qty: 15 RF: 0 (DME) FreeStyle Test Strip See Rx Instructions .Route Qty: 100 RF: 0 No Action Lantus Solostar U-100 Insulin 100 unit/mL (3 mL) insulin pen 30 unit subcut QPM 30 Days Qty: 15 RF: 1 dulaglutide 0.75 mg/0.5 mL pen injector 0.75 mg subcut QWEEK Qty: 2 RF: 1 (DME) FreeStyle Lite Strips Strip See Rx Instructions .ROUTE .MEDSUPPLY Qty: 100 RF: 11 metformin 1,000 mg tablet 1,000 mg PO BID Qty: 60 RF: 1 (DME) pen needle, diabetic 31 gauge x 3/16 needle See Rx Instructions ea subcut .MEDSUPPLY Qty: 50 RF: 3 tramadol 50 mg tablet 50 mg PO TID PRN (Reason: pain) 30 Days Qty: 90 RF: 0 lisinopril 30 mg tablet 30 mg PO DAILY Qty: 30 RF: 2 zolpidem 10 mg tablet 10 mg PO BEDTIME PRN (Reason: insomnia) 30 Days Qty: 30 RF: 1 amlodipine 5 mg tablet 5 mg PO DAILY Qty: 30 RF: 0 tamsulosin 0.4 mg capsule 0.4 mg PO DAILY Qty: 30 RF: 3 buspirone 30 mg tablet 30 mg PO TID Qty: 30 RF: 0 lidocaine 5 % adhesive patch,medicated 2 patch topical DAILY PRN (Reason: pain) Qty: 30 RF: 0 metoprolol tartrate 50 mg tablet 100 mg PO BID Qty: 60 RF: 0 hydroxyzine HCl 25 mg tablet 25 mg PO TID PRN (Reason: Anxiety) Qty: 30 RF: 0 albuterol sulfate 90 mcg/actuation HFA aerosol inhaler 2 puff PO Q8H PRN (Reason: for muscle spasm) 30 Days Qty: 8.5 RF: 0 escitalopram oxalate 20 mg tablet 20 mg PO DAILY Qty: 30 RF: 0 quetiapine 50 mg tablet 50 mg PO BEDTIME Qty: 30 RF: 0 diclofenac sodium 1 % gel 2 ea topical BID PRN (Reason: Pain) Qty: 30 RF: 0 (DME) lancets 28 gauge misc See Rx Instructions lancet topical TID Qty: 100 RF: 0 Eliquis 5 mg tablet 5 mg PO BID Qty: 60 RF: 0 Referrals: Julio Carter MD [Primary Care Provider] - 2 days Interventions: ED Discharge Assessment Last Done: 12/07/20 16:03 Discharge Date/Time: 12/07/20 16:04
== END 2020-12-07 16:04 | disposition home or self-care (01) ==
PROVIDERS: Emergency Provider Emergency Medicine; PCP Internal Medicine
DX: N48.1 Balanitis (principal); B35.9 Dermatophytosis, unspecified; M25.562 Pain in left knee; M25.561 Pain in right knee; F11.90 Opioid use, unspecified, uncomplicated; E11.9 Type 2 diabetes mellitus without complications; F12.90 Cannabis use, unspecified, uncomplicated; Z79.899 Other long term (current) drug therapy
CPT/HCPCS: 99283

== ENCOUNTER 2021-03-03 00:40 | Emergency (ER) | payer OTHER, SELFPAY ==
[2021-03-03 00:53] VITALS: BP 153/83; PULSE 104; RESP 18; TEMP 36.9; O2SAT 96; BMI 40.7
[2021-03-03 02:45] LABS: MANUAL DIFF FLAG NO
[2021-03-03 02:46] LABS: Basophils Percent Auto 0.5 % (0-2); Eosinophils Absolute Auto 0.2 X10*3/uL (0.0-0.4); Eosinophils Percent Auto 2.1 % (0-4); Hemoglobin 13.4 g/dl (14.0-18.0); Imm Gran Abs Auto 0.02 X10*3/uL (0.00-0.03); Imm Gran Pct Auto 0.3 % (0.0-0.4); Lymphocytes Absolute Auto 1.8 X10*3/uL (1.2-4.9); Lymphocytes Percent Auto 22.6 % (20-40); Mean Corpuscular HGB Conc 32.7 g/dl (31.0-36.0); Mean Corpuscular Hemoglobin 29.6 pg (27.0-33.0); Mean Corpuscular Volume 90.5 fL (80.0-98.0); Mean Platelet Volume 9.4 fL (9.4-12.4); Monocytes Absolute Auto 0.6 X10*3/uL (0.1-1.2); Monocytes Percent Auto 7.2 % (2-11); Neutrophils Absolute Auto 5.2 x10*3/uL (2.0-8.3); Neutrophils Percent Auto 67.3 % (45-73); Platelet Count 310 X10*3/uL (160-400); Red Blood Count 4.53 X10*6/uL (4.60-5.80); Red Cell Distribution Width 12.2 % (11.0-16.0); White Blood Count 7.7 X10*3/uL (4.8-10.8)
--- NOTE | 2021-03-03 02:52 | ED.GENADULT ---
HPI - General Adult General Chief complaint: General Medical Stated complaint: Leg swelling Time Seen by Provider: 03/03/21 01:29 Source: patient Mode of arrival: ambulatory History of Present Illness HPI narrative: 50-year-old male with multiple medical conditions presents with complaints bilateral toe pain as well as foot and bilateral lower leg discomfort with reported redness and swelling but denies any shortness of breath, chest pain/palpitations, recent travel, fevers/chills. Related Data Previous Rx's Medication Instructions Recorded clotrimazole 1 % topical cream 1 appl TOPICAL TID #30 g 12/07/20 mupirocin 2 % topical ointment 1 appl TOPICAL TID #22 g 12/07/20 triamcinolone acetonide 0.1 % 1 appl TOPICAL DAILY #30 g 12/07/20 topical ointment albuterol sulfate 90 mcg/actuation 2 puff PO Q8H PRN 30 Days #8.5 g 12/08/20 aerosol inhaler diclofenac sodium 1 % topical gel 2 ea TOPICAL BID PRN #30 g 12/08/20 metformin 1,000 mg tablet 1,000 mg PO BID #60 tab 12/08/20 tamsulosin 0.4 mg capsule 0.4 mg PO DAILY #30 cap 12/10/20 buspirone 30 mg tablet 30 mg PO TID #90 tab 01/12/21 amlodipine 5 mg tablet 5 mg PO DAILY #30 tab 02/07/21 blood sugar diagnostic (FreeStyle #100 ea 02/07/21 Lite Strips) blood sugar diagnostic (FreeStyle #100 ea 02/07/21 Test) dulaglutide 0.75 mg/0.5 mL 0.75 mg (0.5 mL) SUBCUT QWEEK #2 ml 02/07/21 subcutaneous pen injector insulin glargine 100 unit/mL (3 30 unit (0.3 mL) SUBCUT QPM 30 02/07/21 mL) subcutaneous pen (Lantus Days #15 ml Solostar U-100 Insulin) lancets 28 gauge #100 ea 02/07/21 lidocaine 5 % topical patch 1 patch TOPICAL DAILY #15 ea 02/07/21 (Lidoderm) lisinopril 30 mg tablet 30 mg PO DAILY #30 tab 02/07/21 metoprolol tartrate 50 mg tablet 100 mg PO BID #60 tab 02/07/21 pen needle, diabetic 31 gauge x #50 ea 02/07/21 3/16 tramadol 50 mg tablet 50 mg PO TID PRN 30 Days #90 tab 02/07/21 zolpidem 10 mg tablet 10 mg PO BEDTIME PRN 30 Days #30 02/07/21 tab apixaban 5 mg tablet (Eliquis) 5 mg PO BID #60 tab 02/09/21 escitalopram oxalate 20 mg tablet 20 mg PO DAILY #30 tab 02/09/21 hydroxyzine HCl 25 mg tablet 25 mg PO TID PRN #90 tab 02/09/21 quetiapine 50 mg tablet 50 mg PO BEDTIME #30 tab 02/09/21 cetirizine 10 mg tablet 10 mg PO DAILY PRN 90 Days #90 tab 02/14/21 lidocaine 5 % topical patch 2 patch TOPICAL DAILY PRN #60 ea 02/14/21 doxycycline hyclate 100 mg tablet 100 mg PO BID 5 Days #10 tab 03/03/21 Allergies Allergy/AdvReac Type Severity Reaction Status Date / Time Penicillins [PENICILLINS] Allergy Unknown RASH Verified 02/21/21 02:22 Review of Systems Review of Systems: Pertinent positives and negatives as stated in HPI 10 point review of systems is otherwise negative. ON LICENSE OF [facility] Past Medical History Source: nursing notes reviewed Medical History Anxiety Arthritis Asthma Benign essential hypertension BPH (benign prostatic hyperplasia) Depression Diabetes Family history of thyroid disorder Insomnia Morbid obesity with BMI of 40.0-44.9, adult Overactive bladder Primary osteoarthritis of both knees Seizure Substance abuse Type 2 diabetes mellitus with hyperglycemia Surgical History No history of previous surgery Family History Family History Father ETOH abuse Mother Diabetes Arthritis of knee Hypertension Other Mental health problem Substance abuse Social History Social History Household Members: Other Household Members Other:: room Housing: Other Housing Other:: Room Do you presently have visiting nurse or other home services: No Alcohol intake: current Alcohol intake frequency: holidays/special occasions only Patient Tobacco Use Status: Former Tobacco user Second Hand Smoke Exposure: Yes Substance Use Type: Heroin and Marijuana Advance Directives: No service: No Current occupational status: unemployed Physical Exam Vital Signs: Vital Signs: Last Vital Signs Temp 98.5 F 03/03/21 00:53 Pulse 104 H 03/03/21 00:53 Resp 18 03/03/21 00:53 BP 153/83 H 03/03/21 00:53 Pulse Ox 96 03/03/21 00:53 BMI result Body Mass Index 40.7 VITAL SIGNS: Reviewed. GENERAL: Well developed, well nourished, in no acute distress. HEAD: Normocephalic/atraumatic EYES: PERRLA, EOMI LUNGS: Normal breath sounds. No adventitious sounds or accessory muscle use. SpO2<96> CARDIOVASCULAR: Regular rate and rhythm without noted murmurs, no JVD or lower extremity edema. ABDOMEN: Soft, non-tender, non-distended with bowel sounds MUSCULOSKELETAL: No tenderness, deformities, or effusions noted on gross inspection. EXTREMITIES: No cyanosis, clubbing or edema, but noted erythema to bilateral lower extremities with warmth but no induration and appears to have a component of chronicity. Toes of bilateral feet appear to have been striking the ends of his shoes but no evidence of abscess/erythema/induration and patient has onychomycosis to all toes SKIN: Inspection of the skin reveals no rashes NEUROLOGIC: Alert and oriented x 4. Strength and sensation to light touch were grossly intact x 4. Course Course Course Narrative: 50-year-old male with history and clinical presentation consistent with mild case of cellulitis, D-dimer is less than 150, otherwise review of all investigations negative for acute findings. Patient was empirically started on doxycycline, but the cephalexin was held due to patient's penicillin allergy and he was given all results and instructed to follow-up with his primary care provider. In addition, patient was instructed to get larger shoes to allow more room for his toes. Medical Decision Making Lab Data Result diagrams: 03/03/21 02:39 03/03/21 02:40 Labs: Lab Results 03/03/21 03/03/21 03/03/21 Range/Units 02:39 02:39 02:39 WBC 7.7 (4.8-10.8) X10*3/uL RBC 4.53 L (4.60-5.80) X10*6/uL Hgb 13.4 L (14.0-18.0) g/dl Hct 41.0 L (42.0-52.0) % MCV 90.5 (80.0-98.0) fL MCH 29.6 (27.0-33.0) pg MCHC 32.7 (31.0-36.0) g/dl RDW 12.2 (11.0-16.0) % Plt Count 310 (160-400) X10*3/uL MPV 9.4 (9.4-12.4) fL Immature Gran % (Auto) 0.3 (0.0-0.4) % Neut % (Auto) 67.3 (45-73) % Lymph % (Auto) 22.6 (20-40) % [place] % (Auto) 7.2 (2-11) % Eos % (Auto) 2.1 (0-4) % Baso % (Auto) 0.5 (0-2) % Lymph # (Auto) 1.8 (1.2-4.9) X10*3/uL [place] # (Auto) 0.6 (0.1-1.2) X10*3/uL Eos # (Auto) 0.2 (0.0-0.4) X10*3/uL Baso # (Auto) 0.0 (0.0-0.2) X10*3/uL Abs Immat Gran (auto) 0.02 (0.00-0.03) X10*3/uL Absolute Neuts (auto) 5.2 (2.0-8.3) x10*3/uL Absolute Nucleated RBC 0.000 (0.0-0.012) X10*3/uL Nucleated RBC % (auto) 0.0 (0.0-0.2) /100WBC D-Dimer High Sensitivty < 150 NG/ML Sodium (135-145) mmol/L Potassium (3.3-5.1) mmol/L Chloride (96-108) mmol/L Carbon Dioxide (22-29) mmol/L Anion Gap (12-20) BUN (9-16) mg/dL Creatinine (0.5-1.4) mg/dL Estim Creat Clear Calc Estimated GFR Random Glucose (60-115) mg/dL Calcium (8.4-10.2) mg/dL Total Bilirubin (0.0-1.0) mg/dL AST (5-37) U/L ALT (0-40) U/L Alkaline Phosphatase (39-117) U/L Total Protein (6.5-8.0) g/dL Albumin (3.5-5.0) g/dL Urine Color DK YELLOW Urine Appearance CLEAR Urine pH 6.0 (5.0-8.0) Ur Specific [place] >= 1.030 H (1.005-1.025) Urine Protein TRACE (NEG-TRACE) MG/DL Urine Glucose (UA) NEG (NEG) MG/DL Urine Ketones NEG (NEG) MG/DL Urine Blood NEG (NEG) Urine Nitrite NEG (NEG) Ur Leukocyte Esterase NEG (NEG) 03/03/21 Range/Units 02:40 WBC (4.8-10.8) X10*3/uL RBC (4.60-5.80) X10*6/uL Hgb (14.0-18.0) g/dl Hct (42.0-52.0) % MCV (80.0-98.0) fL MCH (27.0-33.0) pg MCHC (31.0-36.0) g/dl RDW (11.0-16.0) % Plt Count (160-400) X10*3/uL MPV (9.4-12.4) fL Immature Gran % (Auto) (0.0-0.4) % Neut % (Auto) (45-73) % Lymph % (Auto) (20-40) % [place] % (Auto) (2-11) % Eos % (Auto) (0-4) % Baso % (Auto) (0-2) % Lymph # (Auto) (1.2-4.9) X10*3/uL [place] # (Auto) (0.1-1.2) X10*3/uL Eos # (Auto) (0.0-0.4) X10*3/uL Baso # (Auto) (0.0-0.2) X10*3/uL Abs Immat Gran (auto) (0.00-0.03) X10*3/uL Absolute Neuts (auto) (2.0-8.3) x10*3/uL Absolute Nucleated RBC (0.0-0.012) X10*3/uL Nucleated RBC % (auto) (0.0-0.2) /100WBC D-Dimer High Sensitivty NG/ML Sodium 140 (135-145) mmol/L Potassium 4.0 (3.3-5.1) mmol/L Chloride 106 (96-108) mmol/L Carbon Dioxide 24 (22-29) mmol/L Anion Gap 14 (12-20) BUN 13 (9-16) mg/dL Creatinine 0.99 (0.5-1.4) mg/dL Estim Creat Clear Calc 126.6 Estimated GFR > 60 Random Glucose 205 H D (60-115) mg/dL Calcium 9.2 (8.4-10.2) mg/dL Total Bilirubin 0.3 (0.0-1.0) mg/dL AST 24 D (5-37) U/L ALT 34 (0-40) U/L Alkaline Phosphatase 75 D (39-117) U/L Total Protein 6.4 L (6.5-8.0) g/dL Albumin 3.7 (3.5-5.0) g/dL Urine Color Urine Appearance Urine pH (5.0-8.0) Ur Specific [place] (1.005-1.025) Urine Protein (NEG-TRACE) MG/DL Urine Glucose (UA) (NEG) MG/DL Urine Ketones (NEG) MG/DL Urine Blood (NEG) Urine Nitrite (NEG) Ur Leukocyte Esterase (NEG) Discharge Plan Discharge Clinical Impression: Pain of toes of both feet, Cellulitis Patient Disposition: Home, Self-Care Instructions: Cellulitis (ED), Metatarsalgia (DC) Additional Instructions: 1. Recommend [id number] Tylenol/ibuprofen as needed for pain control. 2. Resume all home medications as prescribed. 3. Recommend obtaining larger shoes to prevent toe trauma. 4. Complete the entire course of antibiotics that you have been prescribed. 5. Follow-up with your primary care provider in the next 1-2 days. Return to the ER for worsening symptoms. Prescriptions: New doxycycline hyclate 100 mg tablet 100 mg PO BID 5 Days Qty: 10 RF: 0 No Action metformin 1,000 mg tablet 1,000 mg PO BID Qty: 60 RF: 0 diclofenac sodium 1 % gel 2 ea topical BID PRN (Reason: Pain) Qty: 30 RF: 0 albuterol sulfate 90 mcg/actuation HFA aerosol inhaler 2 puff PO Q8H PRN (Reason: shortness of breath or wheezing) 30 Days Qty: 8.5 RF: 3 tamsulosin 0.4 mg capsule 0.4 mg PO DAILY Qty: 30 RF: 1 buspirone 30 mg tablet 30 mg PO TID Qty: 90 RF: 1 zolpidem 10 mg tablet 10 mg PO BEDTIME PRN (Reason: insomnia) 30 Days Qty: 30 RF: 1 tramadol 50 mg tablet 50 mg PO TID PRN (Reason: pain) 30 Days Qty: 90 RF: 0 lidocaine [Lidoderm] 5 % adhesive patch,medicated 1 patch topical DAILY Qty: 15 RF: 0 Lantus Solostar U-100 Insulin 100 unit/mL (3 mL) insulin pen 30 unit subcut QPM 30 Days Qty: 15 RF: 1 (DME) lancets 28 gauge misc See Rx Instructions lancet topical TID Qty: 100 RF: 0 lisinopril 30 mg tablet 30 mg PO DAILY Qty: 30 RF: 2 metoprolol tartrate 50 mg tablet 100 mg PO BID Qty: 60 RF: 0 dulaglutide 0.75 mg/0.5 mL pen injector 0.75 mg subcut QWEEK Qty: 2 RF: 1 amlodipine 5 mg tablet 5 mg PO DAILY Qty: 30 RF: 1 (DME) pen needle, diabetic 31 gauge x 3/16 needle See Rx Instructions ea subcut .MEDSUPPLY Qty: 50 RF: 3 (DME) FreeStyle Lite Strips Strip See Rx Instructions .ROUTE .MEDSUPPLY Qty: 100 RF: 11 (DME) FreeStyle Test Strip See Rx Instructions .Route Qty: 100 RF: 0 hydroxyzine HCl 25 mg tablet 25 mg PO TID PRN (Reason: for anxiety) Qty: 90 RF: 1 quetiapine 50 mg tablet 50 mg PO BEDTIME Qty: 30 RF: 1 Eliquis 5 mg tablet 5 mg PO BID Qty: 60 RF: 1 escitalopram oxalate 20 mg tablet 20 mg PO DAILY Qty: 30 RF: 1 mupirocin 2 % ointment 1 appl topical TID Qty: 22 RF: 0 clotrimazole 1 % cream 1 appl topical TID Qty: 30 RF: 0 triamcinolone acetonide 0.1 % ointment 1 appl topical DAILY Qty: 30 RF: 0 lidocaine 5 % adhesive patch,medicated 2 patch topical DAILY PRN (Reason: pain) Qty: 60 RF: 0 cetirizine 10 mg tablet 10 mg PO DAILY PRN (Reason: allergy symptoms) 90 Days Qty: 90 RF: 3 Referrals: Julio Carter MD [Primary Care Provider] - 2 days
[2021-03-03 03:04] LABS: Alanine Aminotransferase 34 U/L (0-40); Albumin Level 3.7 g/dL (3.5-5.0); Alkaline Phosphatase 75 U/L (39-117); Anion Gap 14 (12-20); Aspartate Amino Transferase 24 U/L (5-37); Bilirubin Total 0.3 mg/dL (0.0-1.0); Blood Urea Nitrogen 13 mg/dL (9-16); Calcium 9.2 mg/dL (8.4-10.2); Carbon Dioxide 24 mmol/L (22-29); Chloride 106 mmol/L (96-108); Creatinine Clr Calc Pharmacy 126.6; Estimated Glomerular Filt Rate > 60; Glucose Random 205 mg/dL (60-115); Sodium 140 mmol/L (135-145); Total Protein 6.4 g/dL (6.5-8.0)
[2021-03-03 03:13] LABS: Appearance Urine CLEAR; Color Urine DK YELLOW; Glucose Urine UA NEG (NEG); Leukocyte Esterase Urine NEG (NEG); Nitrite Urine NEG (NEG); Specific Gravity - Urine >= 1.030 (1.005-1.025); Urine Blood NEG (NEG); Urine Ketones NEG (NEG); Urine Protein TRACE MG/DL (NEG-TRACE)
[2021-03-03 03:18] LABS: D Dimer High Sensitivity < 150 NG/ML
== END 2021-03-03 04:29 | disposition home or self-care (01) ==
PROVIDERS: Emergency Provider Student in an Organized Health Care Education/Training Program; PCP Internal Medicine
DX: L03.116 Cellulitis of left lower limb (principal); L03.115 Cellulitis of right lower limb; M79.675 Pain in left toe(s); M79.674 Pain in right toe(s); I10 Essential (primary) hypertension; E11.9 Type 2 diabetes mellitus without complications; Z88.0 Allergy status to penicillin
CPT/HCPCS: 36415; 80053; 81003; 85025; 85379; 99283; 99284

== ENCOUNTER 2021-04-08 23:00 | Emergency (ER) | payer OTHER, SELFPAY ==
--- NOTE | ~2021-04-08 | XR_ITS ---
EXAMINATION: XR LUMBOSACRAL SPINE CLINICAL INFORMATION: Fall COMPARISON: 06/29/2018 TECHNIQUE: Three views of the lumbosacral spine. FINDINGS: No acute fracture or subluxation. Grade 1 anterolisthesis of L4 on L5 with disc space narrowing at this level. This has progressed since 2019. Remaining alignment maintained. Small multilevel endplate osteophytes. Facet arthropathy at the lower lumbar spine. The sacroiliac joints are symmetric. The visualized sacrum is intact. XR/XR lumbar spine 2-3V IMPRESSION: No acute fracture or malalignment. Degenerative changes throughout the lumbar spine. This has progressed from prior.
[2021-04-08 23:32] VITALS: BP 173/85; PULSE 105; RESP 18; TEMP 38.1; O2SAT 95; BMI 41.4
--- NOTE | 2021-04-08 23:35 | ED_ITS ---
HPI - Fall General Chief Complaint: General Medical Stated Complaint: fall Time Seen by Provider: 04/08/21 23:35 Source: patient Mode of arrival: ambulatory Limitations: no limitations History of Present Illness HPI Narrative: Patient is a 50 year old male presenting to the emergency department today with low back pain after fall. Patient states that he slipped and fell on the ice, 3 days ago. patient states were bothersome now is his back pain. Patient denies any loss of consciousness with the incident. Patient states he would like a lidocaine patch for the pain, so that he does not have to use one of his own. Patient denies any dizziness, lightheadedness, abdominal pain, nausea, vomiting, fever, chills, blurry vision, double vision, loss of vision, chest pain, difficulty breathing, shortness of breath, night sweats, pain with urination, increased urinary frequency, increased urinary urgency, blood in his urine or stool, syncope or a near syncopal episode, recent trauma or falls, bowel incontinence, bladder incontinence, bowel retention, bladder retention, or any other complaints at this time. MD complaint: fall Onset (ago): day(s) Fall from: standing Fall witnessed: no Place fall occurred: home Loss of consciousness: none Prolonged down time: no Symptoms prior to fall: none Context: tripped/slipped Location of injury: back Related Data Previous Rx's Medication Instructions Recorded clotrimazole 1 % topical cream 1 appl TOPICAL TID #30 g 12/07/20 mupirocin 2 % topical ointment 1 appl TOPICAL TID #22 g 12/07/20 triamcinolone acetonide 0.1 % 1 appl TOPICAL DAILY #30 g 12/07/20 topical ointment albuterol sulfate 90 mcg/actuation 2 puff PO Q8H PRN 30 Days #8.5 g 12/08/20 aerosol inhaler diclofenac sodium 1 % topical gel 2 ea TOPICAL BID PRN #30 g 12/08/20 metformin 1,000 mg tablet 1,000 mg PO BID #60 tab 12/08/20 tamsulosin 0.4 mg capsule 0.4 mg PO DAILY #30 cap 12/10/20 buspirone 30 mg tablet 30 mg PO TID #90 tab 01/12/21 amlodipine 5 mg tablet 5 mg PO DAILY #30 tab 02/07/21 blood sugar diagnostic (FreeStyle #100 ea 02/07/21 Lite Strips) blood sugar diagnostic (FreeStyle #100 ea 02/07/21 Test) dulaglutide 0.75 mg/0.5 mL 0.75 mg (0.5 mL) SUBCUT QWEEK #2 02/07/21 ml subcutaneous pen injector insulin glargine 100 unit/mL (3 30 unit (0.3 mL) SUBCUT QPM 30 02/07/21 mL) subcutaneous pen ( #15 ml Solostar U-100 Insulin) lancets 28 gauge #100 ea 02/07/21 lidocaine 5 % topical patch 1 patch TOPICAL DAILY #15 ea 02/07/21 (Lidoderm) lisinopril 30 mg tablet 30 mg PO DAILY #30 tab 02/07/21 metoprolol tartrate 50 mg tablet 100 mg PO BID #60 tab 02/07/21 pen needle, diabetic 31 gauge x #50 ea 02/07/21 3/16 zolpidem 10 mg tablet 10 mg PO BEDTIME PRN 30 Days #30 02/07/21 tab cetirizine 10 mg tablet 10 mg PO DAILY PRN 90 Days #90 02/14/21 tab lidocaine 5 % topical patch 2 patch TOPICAL DAILY PRN #60 ea 02/14/21 doxycycline hyclate 100 mg tablet 100 mg PO BID 5 Days #10 tab 03/03/21 tramadol 50 mg tablet 50 mg PO TID PRN 30 Days #90 tab 03/18/21 escitalopram oxalate 20 mg tablet 20 mg PO DAILY #30 tab 03/30/21 hydroxyzine HCl 25 mg tablet 25 mg PO TID PRN #90 tab 03/30/21 quetiapine 50 mg tablet 50 mg PO BEDTIME #30 tab 03/30/21 apixaban 5 mg tablet (Eliquis) 5 mg PO BID #60 tab 04/07/21 efinaconazole 10 % topical 1 appl TOPICAL BEDTIME 336 Days 04/09/21 ml solution with applicator Allergies Allergy/AdvReac Type Severity Reaction Status Date / Time Penicillins [PENICILLINS] Allergy Unknown RASH Verified 02/21/21 02:22 Review of Systems Verdana 4l Constitutional: Verdana 4d Verdana 4d Constitutional: Verdana 4d Reports no additional constitutional complaints, Denies chills, Denies fever(s) and Denies night sweats Verdana 4l Eyes: Verdana 4d Verdana 4d Eyes: Verdana 4d Reports no additional eye complaints, Denies blurry vision, Denies change in vision, Denies diplopia, Denies eye discharge, Denies loss of vision and Denies eye pain Verdana 4l ENT: Verdana 4d Denies dizziness Verdana 4l Cardiovascular: Verdana 4d Verdana 4d Cardiovascular: Verdana 4d Reports no additional cardiovascular complaints, Denies chest pain, Denies lightheadedness, Denies Loss of Consciousness and Denies dyspnea Verdana 4l Respiratory: Verdana 4d Verdana 4d Respiratory: Verdana 4d Reports no additional respiratory complaints and Denies dyspnea Verdana 4l Gastrointestinal: Verdana 4d Verdana 4d Gastrointestinal: Verdana 4d Reports no additional gastrointestinal complaints, Denies abdominal pain, Denies melena, Denies hematochezia, Denies change in bowel habits and Denies change in stool character Verdana 4l Genitourinary: Verdana 4d Verdana 4d Genitourinary: Verdana 4d Reports no additional male genitourinary complaints, Denies hematuria, Denies oliguria, Denies difficulty urinating, Denies dysuria, Denies urinary frequency, Denies urinary hesitancy, Denies urinary incontinenceincontinence and Denies urinary urgency Musculoskeletal: Musculoskeletal: Reports no additional musculoskeletal complaints, Reports back pain, Denies numbness and Denies tingling Neurologic: Denies dizziness, Denies loss of vision, Denies numbness and Denies tingling Psychiatric: Psychiatric: Reports no additional psychiatric complaints Endocrine: Endocrine: Reports no additional endocrine complaints Hematologic/Lymphatic: Hematologic/Lymphatic: Reports no additional hematologic/lymphatic complaints Allergic/Immunologic: Allergic/Immunologic: Reports no additional allergic/immunologic complaints PMFSH Past Medical History Attestation statement: The following information was validated with the patient. Source: old records reviewed Medical History Anxiety Arthritis Asthma Benign essential hypertension BPH (benign prostatic hyperplasia) Depression Diabetes Family history of thyroid disorder Insomnia Morbid obesity with BMI of 40.0-44.9, adult Overactive bladder Primary osteoarthritis of both knees Seizure Substance abuse Type 2 diabetes mellitus with hyperglycemia Surgical History No history of previous surgery Family History Family History Father ETOH abuse Mother Diabetes Arthritis of knee Hypertension Other Mental health problem Substance abuse Social History Social History Household Members: Other Household Members Other:: room Housing: Other Housing Other:: Room Do you presently have visiting nurse or other home services: No Alcohol intake: current Alcohol intake frequency: holidays/special occasions only Patient Tobacco Use Status: Former Tobacco user Second Hand Smoke Exposure: Yes Substance Use Type: Heroin and Marijuana Advance Directives: No service: No Current occupational status: unemployed Physical Exam Verdana 4l Vital Signs: Verdana 4d Verdana 4d Vital Signs: Verdana 4d Verdana 4Bd Last Vital Signs Verdana 4d Meal Attendant New 4d Meal Attendant New 4d Temp 97.9 F 04/09/21 00:31 Meal Attendant New 4d Pulse 105 H 04/08/21 23:32 Meal Attendant New 4d Resp 18 04/08/21 23:32 BP 173/85 H 04/08/21 23:32 Pulse Ox 95 04/08/21 23:32 BMI result Body Mass Index 41.4 Const: General: cooperative, no acute distress, alert and awake Nutritional Appearance: well nourished Orientation/consciousness: patient oriented x3 Limitations: no limitations HENMT: Head: Yes normal to inspection and Yes atraumatic Ears: hearing grossly normal bilaterally and external ears normal General nose exam: Normal external nose present, no nasal discharge noted and no epistaxis Face and sinus: Yes normal facial exam, No abrasion and No laceration Mouth: Normal oral and palatal mucosa present, no drooling and no muffled voice Eyes: General: appearance normal, both eyes and all related structures Periorbital: periorbital findings normal Eyelids: Yes eyelids normal Conjunctivae: conjunctivae normal Pupils: Equal, round and reactive pupils present EOM: EOMs intact bilaterally Neck: Neck: Yes normal visual inspection, Yes full ROM and Yes no lymphadenopathy Chest: Chest palpation & inspection: normal inspection of the chest Resp: Effort & Inspection: normal respiratory effort and able to speak in complete sentences GI: Inspection: Yes normal to inspection Skin: Nails: yellow and thickened Neuro: General: patient oriented x3 and moves all extremities Cranial nerves: Yes Equal, round and reactive pupils present Cognition (Neuro): normal cognition Motor exam (neuro): 5/5 motor strength present throughout Sensory Exam: Normal double simultaneous stimulation for sensation Coordination: [id number] test normal Extrem: General: Yes normal to inspection, Yes full ROM and Yes capillary refill normal Psych: Appearance: grossly normal Mental Status: mental status grossly normal Affect: normal affect Attitude: cooperative Thought process: Normal thought process present Thought content: Normal thought content present Insight: Good insight present (Psych) Course Course Course Narrative: Patient's lumbar XR was interpreted by the radiologist as negative for any acute fracture. MDM - Fall MDM Narrative Medical decision making narrative: Patient is a 50 year old male presenting to the emergency department today with back pain after a slip and fall. Patient's physical exam was unremarkable. Patient's blood work was unremarkable. Patient's lumbar x-ray showed no acute process. I explained my physical exam findings as well as all test results to the patient. I answered all questions asked by the patient. I stressed the importance of the patient taking his medication as prescribed. I stressed the importance of the patient following up with his primary care provider. I stressed the importance of the patient returning to the emergency department immediately if his symptoms were to worsen or if he were to develop any dizziness, shortness of breath, difficulty breathing, chest pain, blurry vision, loss of vision, nausea, vomiting, abdominal pain, fever, chills, back pain, or any other complaints. Patient verbalized agreement and understanding with this treatment plan and discharge. Differential Diagnosis Differential diagnosis: Likely fracture (back pain) and compression fracture Medical Records Attestation: I reviewed the patient's medical records. Lab Data Attestation: I reviewed the patient's lab results. Labs: Lab Results 04/09/21 Range/Units 00:33 COVID-19 (DG) Negative (Negative) COVID-19 Clin Com See Note Discharge Plan Discharge Clinical Impression: Back pain, Onychomycosis Patient Disposition: Home, Self-Care Instructions: Back Pain (ED) Additional Instructions: Call to discuss finding and establishing with a primary care provider. Prescriptions: New efinaconazole 10 % solution with applicator 1 appl topical BEDTIME 336 Days 0RF No Action metformin 1,000 mg tablet 1,000 mg PO BID Qty: 60 0RF diclofenac sodium 1 % gel 2 ea topical BID PRN (Reason: Pain) Qty: 30 0RF Rx Instructions: apply to bilaterial knees albuterol sulfate 90 mcg/actuation HFA aerosol inhaler 2 puff PO Q8H PRN (Reason: shortness of breath or wheezing) 30 Days Qty: 8.5 3RF tamsulosin 0.4 mg capsule 0.4 mg PO DAILY Qty: 30 1RF buspirone 30 mg tablet 30 mg PO TID Qty: 90 1RF zolpidem 10 mg tablet 10 mg PO BEDTIME PRN (Reason: insomnia) 30 Days Qty: 30 1RF lidocaine [Lidoderm] 5 % adhesive patch,medicated 1 patch topical DAILY Qty: 15 0RF Rx Instructions: leave on most painful area for up to 12 hrs Lantus Solostar U-100 Insulin 100 unit/mL (3 mL) insulin pen 30 unit subcut QPM 30 Days Qty: 15 1RF (DME) lancets 28 gauge misc See Rx Instructions lancet topical TID Qty: 100 0RF Rx Instructions: As directed lisinopril 30 mg tablet 30 mg PO DAILY Qty: 30 2RF metoprolol tartrate 50 mg tablet 100 mg PO BID Qty: 60 0RF dulaglutide 0.75 mg/0.5 mL pen injector 0.75 mg subcut QWEEK Qty: 2 1RF amlodipine 5 mg tablet 5 mg PO DAILY Qty: 30 1RF (DME) pen needle, diabetic 31 gauge x 3/16 needle See Rx Instructions ea subcut .MEDSUPPLY Qty: 50 3RF Rx Instructions: One daily (DME) FreeStyle Lite Strips Strip See Rx Instructions .ROUTE .MEDSUPPLY Qty: 100 11RF Rx Instructions: As directed three times a day (DME) FreeStyle Test Strip See Rx Instructions .Route Qty: 100 0RF Rx Instructions: TID tramadol 50 mg tablet 50 mg PO TID PRN (Reason: pain) 30 Days Qty: 90 0RF escitalopram oxalate 20 mg tablet 20 mg PO DAILY Qty: 30 1RF hydroxyzine HCl 25 mg tablet 25 mg PO TID PRN (Reason: for anxiety) Qty: 90 1RF quetiapine 50 mg tablet 50 mg PO BEDTIME Qty: 30 1RF Eliquis 5 mg tablet 5 mg PO BID Qty: 60 1RF mupirocin 2 % ointment 1 appl topical TID Qty: 22 0RF clotrimazole 1 % cream 1 appl topical TID Qty: 30 0RF triamcinolone acetonide 0.1 % ointment 1 appl topical DAILY Qty: 30 0RF doxycycline hyclate 100 mg tablet 100 mg PO BID 5 Days Qty: 10 0RF lidocaine 5 % adhesive patch,medicated 2 patch topical DAILY PRN (Reason: pain) Qty: 60 0RF Rx Instructions: leave on most painful area for up to 12 hrs. keep off for 12 hrs cetirizine 10 mg tablet 10 mg PO DAILY PRN (Reason: allergy symptoms) 90 Days Qty: 90 3RF Print Language: Setswana
[2021-04-09] MEDS: Lidocaine 4 % Patch ADH..PATCH 1 PATCH TRANSDERMA (00:30)
[2021-04-09 00:31] VITALS: TEMP 36.6
[2021-04-09 00:57] LABS: COVID-19 Test Negative (Negative)
== END 2021-04-09 01:22 | disposition home or self-care (01) ==
LOC: HO.ED 04-09 00:42
PROVIDERS: Physician Assistant Medical; Emergency Provider Emergency Medicine
DX: Z04.3 Encounter for examination and observation following other accident (principal); M54.50 Low back pain, unspecified; B35.1 Tinea unguium; Z20.822 Contact with and (suspected) exposure to COVID-19; E11.9 Type 2 diabetes mellitus without complications; Z79.4 Long term (current) use of insulin
CPT/HCPCS: 72100; 87635; 99283

== ENCOUNTER 2021-05-25 17:06 | Outpatient (RCR) | payer OTHER, SELFPAY ==
[2021-05-25 17:08] VITALS: BP 144/67; PULSE 99; O2SAT 96
--- NOTE | 2021-05-26 11:53 | MHC.PT.EP ---
[facility] [place] [facility] [place] [facility] [place] [facility] [address] Geni Borden [address] [phone] F: [phone] F: [phone] F: [phone] F: [phone] Physical Therapy Plan of Care Date of Evaluation: Date of Surgery: N/A Diagnosis: Strain of muscle, fascia and tendon of lower back Assessment: Pt is a 51yo M who presents to PT with acute on chronic low back s/p slipping on ice in March. Xrays negative for fracture. He presents to PT with current impairments in pain, decreased lumbar ROM, decreased core stab, soft tissue restrictions, and impaired gait. He is TTP throughout R lumbar PS and QL. He is limited functionally by prolonged standing, sleeping, walking, and bending. He is a fair candidate for PT 2* chronicity of low back pain, age, and comorbidities. Pt reports he is only able to attend 1x/week. He will be seen 1x/week for 4 weeks and will be reassessed at that time. Frequency and Duration: The patient will be seen 1x/week for 4 weeks Short Term Goals: Pt will be I with HEP to promote self mangement of symptoms Pt will improve B hamstring length to WFL Senior Living Goals: Pt will demonstrate full ROM throughout lumbar spine Pt will tolerate standing > 30 min with pain < 6 / 10 Treatment Plan: Modalities to reduce pain, spasms and effusion. Manual therapy to restore motion and function. Therapeutic exercise to improve strength and flexibility. Neuromuscular re-education for posture and balance. Therapeutic activities to return to functional activities of daily living. Electronically signed by: Re Pretty, PT, DPT Please sign and return to therapist. Thank you for your referral.
--- NOTE | 2021-06-10 14:00 | MHC.PT.DC ---
[facility] [place] Office [place] Office [place] Office [address] Geni Borden [address] [phone] F: [phone] F: [phone] F: [phone] F: [phone] Physical Therapy Discharge Report Diagnosis: Strain of muscle, fascia and tendon of lower back Date of Surgery: N/A Date of Evaluation: 05/25/21 Date of Discharge: 06/10/21 Treatments to Date: 1 Cancellations to Date: No Shows to Date: 2 Discharge Status: Patient Elected to Stop Discharge Summary: Pt attended initial PT evaluation and then had 2 no-shows for his next two scheduled appointments. Pt is being D/C from skilled PT per [facility] attendance policy and visit non-compliance. Pt is being D/C from skilled at this time. Pt current level of function unknown. Electronically signed by: Re Pretty, PT, DPT Please sign and return to therapist. Thank you for your referral.
== END 2021-06-10 14:00 | disposition home or self-care (01) ==
LOC: HO.PT 17:06
PROVIDERS: PCP Internal Medicine; Visit Provider Internal Medicine
DX: S39.012D Strain of muscle, fascia and tendon of lower back, subsequent encounter (principal)
CPT/HCPCS: 97162

== ENCOUNTER 2021-06-06 17:01 | Outpatient (REF) | payer OTHER, SELFPAY ==
[2021-06-06 17:17] LABS: MANUAL DIFF FLAG NO
[2021-06-06 17:53] LABS: Basophils Percent Auto 0.2 % (0-2); Eosinophils Absolute Auto 0.1 X10*3/uL (0.0-0.4); Eosinophils Percent Auto 0.6 % (0-4); Hematocrit 42.2 % (42.0-52.0); Imm Gran Abs Auto 0.04 X10*3/uL (0.00-0.03); Imm Gran Pct Auto 0.3 % (0.0-0.4); Lymphocytes Absolute Auto 2.6 X10*3/uL (1.2-4.9); Lymphocytes Percent Auto 21.7 % (20-40); Mean Corpuscular HGB Conc 33.2 g/dl (31.0-36.0); Mean Corpuscular Hemoglobin 29.3 pg (27.0-33.0); Mean Corpuscular Volume 88.3 fL (80.0-98.0); Mean Platelet Volume 10.7 fL (9.4-12.4); Monocytes Absolute Auto 0.6 X10*3/uL (0.1-1.2); Monocytes Percent Auto 5.3 % (2-11); Neutrophils Absolute Auto 8.8 x10*3/uL (2.0-8.3); Neutrophils Percent Auto 71.9 % (45-73); Platelet Count 328 X10*3/uL (160-400); Red Blood Count 4.78 X10*6/uL (4.60-5.80); Red Cell Distribution Width 12.4 % (11.0-16.0); White Blood Count 12.2 X10*3/uL (4.8-10.8)
[2021-06-06 17:57] LABS: Estimated Average Glucose 235 mg/dL; Hemoglobin A1c % 9.8 %
[2021-06-06 18:01] LABS: Appearance Urine CLEAR; Color Urine YELLOW; Glucose Urine UA >=1000 MG/DL (NEG); Leukocyte Esterase Urine NEG (NEG); Nitrite Urine NEG (NEG); PH 5.5 (5.0-8.0); Specific Gravity - Urine <= 1.005 (1.005-1.025); Urine Blood NEG (NEG); Urine Ketones NEG (NEG); Urine Protein NEG (NEG-TRACE)
[2021-06-06 18:13] LABS: RBC Urine 0 /HPF (0); WBC Urine 0-2 /HPF (0-4)
[2021-06-06 18:20] LABS: Creatinine Urine 29.36 mg/dL; Microalbumin Urine < 5.0 mg/L
[2021-06-06 18:27] LABS: Erythrocyte Sedimentation Rate 7 MM/HR (0-15)
[2021-06-06 18:34] LABS: TSH reflex Free T4 3.61 uIU/mL (0.32-4.0); Vitamin D 25-OH Total 15.2 ng/mL (>30)
== END 2021-06-06 17:02 | disposition home or self-care (01) ==
LOC: HO.LAB 17:01
PROVIDERS: PCP Internal Medicine; Visit Provider Internal Medicine
DX: I10 Essential (primary) hypertension (principal); M17.0 Bilateral primary osteoarthritis of knee; E66.01 Morbid (severe) obesity due to excess calories; E11.9 Type 2 diabetes mellitus without complications; E55.9 Vitamin D deficiency, unspecified; Z68.41 Body mass index [BMI] 40.0-44.9, adult
CPT/HCPCS: 36415; 81001; 82043; 82306; 83036; 84443; 85025; 85652

== ENCOUNTER 2021-06-20 12:03 | Outpatient (REF) | payer OTHER, SELFPAY | END 2021-06-20 12:04 | disposition home or self-care (01) | LOC: HO.HOSX 12:03 | PROVIDERS: Visit Provider Orthopaedic Surgery | DX: Z13.89 Encounter for screening for other disorder (principal) ==

== ENCOUNTER 2021-07-05 02:55 | Emergency (ER) | payer OTHER, SELFPAY ==
--- NOTE | 2021-07-05 03:32 | ED_ITS ---
HPI - Male Genitourinary General Chief complaint: General Medical Stated complaint: Genital swelling/Hand pain Time Seen by Provider: 07/05/21 03:32 Source: patient Mode of arrival: ambulatory Limitations: no limitations History of Present Illness HPI Narrative: swelling of genitalia with glucose out of control. This has been going on for weeks. Penile pain with problems with foreskin. Onset (ago): week(s) Duration: intermittent Location: penis Severity: moderate Related Data Previous Rx's Medication Instructions Recorded clotrimazole 1 % topical cream 1 appl TOPICAL TID #30 g 12/07/20 mupirocin 2 % topical ointment 1 appl TOPICAL TID #22 g 12/07/20 triamcinolone acetonide 0.1 % 1 appl TOPICAL DAILY #30 g 12/07/20 topical ointment diclofenac sodium 1 % topical gel 2 ea TOPICAL BID PRN #30 g 12/08/20 metformin 1,000 mg tablet 1,000 mg PO BID #60 tab 12/08/20 amlodipine 5 mg tablet 5 mg PO DAILY #30 tab 02/07/21 blood sugar diagnostic (FreeStyle #100 ea 02/07/21 Test) lancets 28 gauge #100 ea 02/07/21 metoprolol tartrate 50 mg tablet 100 mg PO BID #60 tab 02/07/21 pen needle, diabetic 31 gauge x #50 ea 02/07/2105/25 cetirizine 10 mg tablet 10 mg PO DAILY PRN 90 Days #90 tab 02/14/21 doxycycline hyclate 100 mg tablet 100 mg PO BID 5 Days #10 tab 03/03/21 efinaconazole 10 % topical 1 appl TOPICAL BEDTIME 336 Days ml 04/09/21 solution with applicator BACK BRACE #1 ea 04/29/21 tizanidine 4 mg tablet 4 mg PO Q8H PRN 10 Days #30 tab 04/29/21 buspirone 30 mg tablet 30 mg PO TID #90 tab 05/22/21 clobetasol 0.05 % topical ointment 1 appl TOPICAL BID 7 Days #45 g 06/08/21 lidocaine 5 % topical patch 2 patch TOPICAL DAILY PRN #60 ea 06/08/21 fluconazole 150 mg tablet 150 mg PO DAILY #1 tab 07/05/21 (Diflucan) lidocaine 5 % topical patch 1 patch TOPICAL .twice a day #60 ea 07/11/21 (Lidoderm) zolpidem 10 mg tablet 10 mg PO BEDTIME PRN 30 Days #30 07/11/21 tab escitalopram oxalate 20 mg tablet 20 mg PO DAILY #30 tab 07/13/21 insulin glargine 100 unit/mL (3 30 unit (0.3 mL) SUBCUT BEDTIME 07/15/21 mL) subcutaneous pen (Lantus #15 ml Solostar U-100 Insulin) albuterol sulfate 90 mcg/actuation 2 puff PO Q8H PRN 30 Days #8.5 g 07/25/21 aerosol inhaler hydroxyzine HCl 25 mg tablet 25 mg PO TID PRN #90 tab 07/25/21 clotrimazole 1 % topical cream 1 appl TOPICAL BID #30 g 07/27/21 tamsulosin 0.4 mg capsule 0.4 mg PO DAILY #30 cap 07/27/21 blood sugar diagnostic (FreeStyle #100 ea 07/28/21 Lite Strips) apixaban 5 mg tablet (Eliquis) 5 mg PO BID #60 tab 08/01/21 lisinopril 30 mg tablet 30 mg PO DAILY #90 tab 08/01/21 quetiapine 50 mg tablet 50 mg PO BEDTIME #30 tab 08/01/21 dulaglutide 0.75 mg/0.5 mL 0.75 mg (0.5 mL) SUBCUT QWEEK #2 ml 08/02/21 subcutaneous pen injector tramadol 50 mg tablet 50 mg PO TID PRN 30 Days #90 tab 08/09/21 Allergies Allergy/AdvReac Type Severity Reaction Status Date / Time Penicillins [PENICILLINS] Allergy Unknown RASH Verified 06/08/21 12:01 Review of Systems Constitutional: Constitutional: Reports no additional constitutional complaints Eyes: Eyes: Reports no additional eye complaints ENT: Denies dizziness Cardiovascular: Cardiovascular: Reports no additional cardiovascular complaints Respiratory: Respiratory: Reports as per HPI Gastrointestinal: Gastrointestinal: Reports no additional gastrointestinal complaints Musculoskeletal: Musculoskeletal: Reports no additional musculoskeletal complaints Integumentary/Breasts: Skin/Breast: Denies rash Neurologic: Reports system reviewed and no additional complaints, except as documented, Denies dizziness and Denies Sensory deficit (Neuro) Psychiatric: Psychiatric: Denies anxiety PMFSH Past Medical History Medical History Anxiety Arthritis Asthma Benign essential hypertension BPH (benign prostatic hyperplasia) Depression Diabetes Family history of thyroid disorder Insomnia Lumbar degenerative disc disease Morbid obesity with BMI of 40.0-44.9, adult Overactive bladder Primary osteoarthritis of both knees Seizure Substance abuse Type 2 diabetes mellitus with hyperglycemia Surgical History No history of previous surgery Family History Family History Father ETOH abuse Mother Diabetes Arthritis of knee Hypertension Other Mental health problem Substance abuse Social History Social History Household Members: Other Household Members Other:: room Housing: Other Housing Other:: Room Do you presently have visiting nurse or other home services: No Alcohol intake: unknown Patient Tobacco Use Status: Former Tobacco user Second Hand Smoke Exposure: Yes Substance Use Type: Heroin and Marijuana Advance Directives: No Advance Directives Information Provided: No service: No Current occupational status: unemployed Cognitive needs: No Hearing needs: No Vision needs: No Physical Exam Vital Signs: Vital Signs: Last Vital Signs Temp 98.1 F 07/05/21 03:58 Pulse 110 H 07/05/21 03:58 Resp 14 07/05/21 03:58 BP 157/72 H 07/05/21 03:58 Pulse Ox 97 07/05/21 03:58 BMI result Body Mass Index 43.3 Const: General: healthy appearing Nutritional Appearance: average body habitus Orientation/consciousness: oriented to person and patient oriented x3 Limitations: no limitations HEENT: Head: Yes normal to inspection Ears: external ears normal General nose exam: Normal external nose present Mouth: Normal oral and palatal mucosa present and oropharynx normal Throat: Yes posterior oropharynx normal Eyes: General: appearance normal, both eyes and all related structures Neck: Other: supple Neck: Yes normal visual inspection Chest: Chest palpation & inspection: normal inspection of the chest Resp: Auscultation: clear to auscultation bilaterally Cardio: Jugular venous distension: no JVD Rate: regular rate Rhythm: regular rhythm Heart sounds: S1 normal heart sound present and S2 normal heart sound present GI: Inspection: Yes normal to inspection Palpation (GI): Soft to palpation, nontender and No hepatosplenomegaly present Auscultation: normal bowel sounds : Other: candidiasis to foreskin and penis Skin: General skin exam: no rashes or lesions noted Neuro: General: oriented to person and patient oriented x3 Cranial nerves: Yes CN's II-XII intact bilaterally Motor exam (neuro): 5/5 motor strength present throughout Sensory Exam: No Sensory deficit (Neuro) Extrem: General: Yes normal to inspection Psych: Appearance: grossly normal Course Reevaluation(s) Reevaluation #1: Patient with diabetes and candididal balanitis will dc on diflucan x 1 in one week Time: 05:34 MDM - Male Genitourinary Lab Data Result diagrams: 07/05/21 03:48 07/05/21 03:48 Labs: Lab Results 07/05/21 07/05/21 07/05/21 Range/Units 03:48 03:48 03:48 WBC 7.3 (4.8-10.8) X10*3/uL RBC 4.46 L (4.60-5.80) X10*6/uL Hgb 13.3 L (14.0-18.0) g/dl Hct 39.9 L (42.0-52.0) % MCV 89.5 (80.0-98.0) fL MCH 29.8 (27.0-33.0) pg MCHC 33.3 (31.0-36.0) g/dl RDW 12.5 (11.0-16.0) % Plt Count 267 (160-400) X10*3/uL MPV 9.4 (9.4-12.4) fL Immature Gran % (Auto) 0.7 H (0.0-0.4) % Neut % (Auto) 64.7 (45-73) % Lymph % (Auto) 26.0 (20-40) % [place] % (Auto) 6.8 (2-11) % Eos % (Auto) 1.5 (0-4) % Baso % (Auto) 0.3 (0-2) % Lymph # (Auto) 1.9 (1.2-4.9) X10*3/uL [place] # (Auto) 0.5 (0.1-1.2) X10*3/uL Eos # (Auto) 0.1 (0.0-0.4) X10*3/uL Baso # (Auto) 0.0 (0.0-0.2) X10*3/uL Abs Immat Gran (auto) 0.05 H (0.00-0.03) X10*3/uL Absolute Neuts (auto) 4.7 (2.0-8.3) x10*3/uL Absolute Nucleated RBC 0.000 (0.0-0.012) X10*3/uL Nucleated RBC % (auto) 0.0 (0.0-0.2) /100WBC Sodium 136 (135-145) mmol/L Potassium 4.4 (3.3-5.1) mmol/L Chloride 102 (96-108) mmol/L Carbon Dioxide 29 (22-29) mmol/L Anion Gap 9 L (12-20) BUN 15 (9-16) mg/dL Creatinine 0.96 (0.5-1.4) mg/dL Estim Creat Clear Calc 133.7 Estimated GFR > 60 POC Glucose 264 H (60-115) mg/dL Random Glucose 281 H D (60-115) mg/dL Calcium 9.5 (8.4-10.2) mg/dL Urine Color Urine Appearance Urine pH (5.0-8.0) Ur Specific [place] (1.005-1.025) Urine Protein (NEG-TRACE) MG/DL Urine Glucose (UA) (NEG) MG/DL Urine Ketones (NEG) MG/DL Urine Blood (NEG) Urine Nitrite (NEG) Ur Leukocyte Esterase (NEG) Urine RBC (0) /HPF Urine WBC (0-4) /HPF Ur Squamous Epith Cells /LPF Urine Bacteria /LPF 07/05/21 Range/Units 04:43 WBC (4.8-10.8) X10*3/uL RBC (4.60-5.80) X10*6/uL Hgb (14.0-18.0) g/dl Hct (42.0-52.0) % MCV (80.0-98.0) fL MCH (27.0-33.0) pg MCHC (31.0-36.0) g/dl RDW (11.0-16.0) % Plt Count (160-400) X10*3/uL MPV (9.4-12.4) fL Immature Gran % (Auto) (0.0-0.4) % Neut % (Auto) (45-73) % Lymph % (Auto) (20-40) % [place] % (Auto) (2-11) % Eos % (Auto) (0-4) % Baso % (Auto) (0-2) % Lymph # (Auto) (1.2-4.9) X10*3/uL [place] # (Auto) (0.1-1.2) X10*3/uL Eos # (Auto) (0.0-0.4) X10*3/uL Baso # (Auto) (0.0-0.2) X10*3/uL Abs Immat Gran (auto) (0.00-0.03) X10*3/uL Absolute Neuts (auto) (2.0-8.3) x10*3/uL Absolute Nucleated RBC (0.0-0.012) X10*3/uL Nucleated RBC % (auto) (0.0-0.2) /100WBC Sodium (135-145) mmol/L Potassium (3.3-5.1) mmol/L Chloride (96-108) mmol/L Carbon Dioxide (22-29) mmol/L Anion Gap (12-20) BUN (9-16) mg/dL Creatinine (0.5-1.4) mg/dL Estim Creat Clear Calc Estimated GFR POC Glucose (60-115) mg/dL Random Glucose (60-115) mg/dL Calcium (8.4-10.2) mg/dL Urine Color YELLOW Urine Appearance CLEAR Urine pH 6.5 (5.0-8.0) Ur Specific [place] 1.020 (1.005-1.025) Urine Protein NEG (NEG-TRACE) MG/DL Urine Glucose (UA) >=1000 H (NEG) MG/DL Urine Ketones NEG (NEG) MG/DL Urine Blood NEG (NEG) Urine Nitrite NEG (NEG) Ur Leukocyte Esterase NEG (NEG) Urine RBC 0-2 (0) /HPF Urine WBC 1-4 (0-4) /HPF Ur Squamous Epith Cells 1+ /LPF Urine Bacteria 1+ /LPF Discharge Plan Discharge Clinical Impression: Balanitis, Sunitha infection Patient Disposition: Home, Self-Care Instructions: Balanitis (ED), Skin Yeast Infection (ED) Prescriptions: New fluconazole [Diflucan] 150 mg tablet 150 mg PO DAILY Qty: 1 0RF Rx Instructions: take in one week No Action metformin 1,000 mg tablet 1,000 mg PO BID Qty: 60 0RF diclofenac sodium 1 % gel 2 ea topical BID PRN (Reason: Pain) Qty: 30 0RF Rx Instructions: apply to bilaterial knees (DME) lancets 28 gauge misc See Rx Instructions lancet topical TID Qty: 100 0RF Rx Instructions: As directed metoprolol tartrate 50 mg tablet 100 mg PO BID Qty: 60 0RF amlodipine 5 mg tablet 5 mg PO DAILY Qty: 30 1RF (DME) pen needle, diabetic 31 gauge x 3/16 needle See Rx Instructions ea subcut .MEDSUPPLY Qty: 50 3RF Rx Instructions: One daily (DME) FreeStyle Test Strip See Rx Instructions .Route Qty: 100 0RF Rx Instructions: TID buspirone 30 mg tablet 30 mg PO TID Qty: 90 1RF lidocaine [Lidoderm] 5 % adhesive patch,medicated 1 patch topical .twice a day Qty: 60 0RF Rx Instructions: use one patch on affected area twice a day zolpidem 10 mg tablet 10 mg PO BEDTIME PRN (Reason: insomnia) 30 Days Qty: 30 1RF escitalopram oxalate 20 mg tablet 20 mg PO DAILY Qty: 30 1RF Lantus Solostar U-100 Insulin 100 unit/mL (3 mL) insulin pen 30 unit subcut BEDTIME Qty: 15 2RF albuterol sulfate 90 mcg/actuation HFA aerosol inhaler 2 puff PO Q8H PRN (Reason: shortness of breath or wheezing) 30 Days Qty: 8.5 3RF hydroxyzine HCl 25 mg tablet 25 mg PO TID PRN (Reason: for anxiety) Qty: 90 0RF tamsulosin 0.4 mg capsule 0.4 mg PO DAILY Qty: 30 1RF (DME) FreeStyle Lite Strips Strip See Rx Instructions .ROUTE .MEDSUPPLY Qty: 100 12RF Rx Instructions: As directed three times a day Eliquis 5 mg tablet 5 mg PO BID Qty: 60 1RF lisinopril 30 mg tablet 30 mg PO DAILY Qty: 90 0RF quetiapine 50 mg tablet 50 mg PO BEDTIME Qty: 30 1RF dulaglutide 0.75 mg/0.5 mL pen injector 0.75 mg subcut QWEEK Qty: 2 1RF tramadol 50 mg tablet 50 mg PO TID PRN (Reason: pain) 30 Days Qty: 90 0RF efinaconazole 10 % solution with applicator 1 appl topical BEDTIME 336 Days 0RF mupirocin 2 % ointment 1 appl topical TID Qty: 22 0RF clotrimazole 1 % cream 1 appl topical TID Qty: 30 0RF triamcinolone acetonide 0.1 % ointment 1 appl topical DAILY Qty: 30 0RF doxycycline hyclate 100 mg tablet 100 mg PO BID 5 Days Qty: 10 0RF clotrimazole 1 % cream 1 appl topical BID Qty: 30 3RF tizanidine 4 mg tablet 4 mg PO Q8H PRN (Reason: muscle spasticity) 10 Days Qty: 30 2RF (DME) BACK BRACE XL See Rx Instructions .Route .MEDSUPPLY Qty: 1 0RF Rx Instructions: As directed cetirizine 10 mg tablet 10 mg PO DAILY PRN (Reason: allergy symptoms) 90 Days Qty: 90 3RF clobetasol 0.05 % ointment 1 appl topical BID 7 Days Qty: 45 0RF lidocaine 5 % adhesive patch,medicated 2 patch topical DAILY PRN (Reason: pain) Qty: 60 5RF Rx Instructions: leave on most painful area for up to 12 hrs. keep off for 12 hrs Interventions: ED Discharge Assessment Last Done: 07/05/21 06:07 Discharge Date/Time: 07/05/21 06:08
[2021-07-05 03:53] LABS: Basophils Percent Auto 0.3 % (0-2); Eosinophils Absolute Auto 0.1 X10*3/uL (0.0-0.4); Eosinophils Percent Auto 1.5 % (0-4); Glucose, Whole Blood 264 mg/dL (60-115); Hematocrit 39.9 % (42.0-52.0); Hemoglobin 13.3 g/dl (14.0-18.0); Imm Gran Abs Auto 0.05 X10*3/uL (0.00-0.03); Imm Gran Pct Auto 0.7 % (0.0-0.4); Lymphocytes Absolute Auto 1.9 X10*3/uL (1.2-4.9); MANUAL DIFF FLAG NO; Mean Corpuscular HGB Conc 33.3 g/dl (31.0-36.0); Mean Corpuscular Hemoglobin 29.8 pg (27.0-33.0); Mean Corpuscular Volume 89.5 fL (80.0-98.0); Mean Platelet Volume 9.4 fL (9.4-12.4); Monocytes Absolute Auto 0.5 X10*3/uL (0.1-1.2); Monocytes Percent Auto 6.8 % (2-11); Neutrophils Absolute Auto 4.7 x10*3/uL (2.0-8.3); Neutrophils Percent Auto 64.7 % (45-73); Platelet Count 267 X10*3/uL (160-400); Red Blood Count 4.46 X10*6/uL (4.60-5.80); Red Cell Distribution Width 12.5 % (11.0-16.0); White Blood Count 7.3 X10*3/uL (4.8-10.8)
[2021-07-05] MEDS: Fluconazole 150 MG TABLET PO (03:53)
[2021-07-05 03:58] VITALS: BP 157/72; PULSE 110; RESP 14; TEMP 36.7; O2SAT 97; BMI 43.3
[2021-07-05 04:11] LABS: Anion Gap 9 (12-20); Blood Urea Nitrogen 15 mg/dL (9-16); Calcium 9.5 mg/dL (8.4-10.2); Carbon Dioxide 29 mmol/L (22-29); Chloride 102 mmol/L (96-108); Creatinine Clr Calc Pharmacy 133.7; Estimated Glomerular Filt Rate > 60; Glucose Random 281 mg/dL (60-115); Potassium 4.4 mmol/L (3.3-5.1); Sodium 136 mmol/L (135-145)
[2021-07-05] MEDS: Insulin Lispro 100 UNIT/ML 3 ML VIAL SUBCUT (04:18)
[2021-07-05 04:48] LABS: Appearance Urine CLEAR; Color Urine YELLOW; Glucose Urine UA >=1000 MG/DL (NEG); Leukocyte Esterase Urine NEG (NEG); Nitrite Urine NEG (NEG); PH 6.5 (5.0-8.0); Urine Blood NEG (NEG); Urine Ketones NEG (NEG); Urine Protein NEG (NEG-TRACE)
[2021-07-05 04:51] LABS: Bacteria Urine 1+ /LPF; RBC Urine 0-2 /HPF (0); Squamous Epithelial Cell Urine 1+ /LPF
== END 2021-07-05 06:08 | disposition home or self-care (01) ==
PROVIDERS: Emergency Provider Emergency Medicine; PCP Internal Medicine
DX: B37.42 Candidal balanitis (principal); E11.9 Type 2 diabetes mellitus without complications; I10 Essential (primary) hypertension; J45.909 Unspecified asthma, uncomplicated
CPT/HCPCS: 36415; 80048; 81001; 82947; 85025; 99284

== ENCOUNTER 2021-07-27 19:01 | Emergency (ER) | payer OTHER, SELFPAY ==
[2021-07-27 19:05] VITALS: BP 152/77; PULSE 94; RESP 18; TEMP 36.3; O2SAT 97; BMI 43.2
[2021-07-27 22:30] LABS: COVID-19 Test Negative (Negative)
[2021-07-27 22:36] LABS: IDNOW Serial# 55D5AD1C; Influenza A Negative (Negative); Influenza B2 Negative (Negative)
--- NOTE | 2021-07-27 22:57 | ED.MALEGU ---
HPI - Male Genitourinary General Chief complaint: Urogenital-Male Stated complaint: genital pain Time Seen by Provider: 07/27/21 22:56 Source: patient Mode of arrival: ambulatory Limitations: no limitations History of Present Illness HPI Narrative: Patient diabetic with frequent balanitis been here multiple times for same comes here for redness of glans for last few days POC on arrival was 260 Related Data Previous Rx's Medication Instructions Recorded clotrimazole 1 % topical cream 1 appl TOPICAL TID #30 g 12/07/20 mupirocin 2 % topical ointment 1 appl TOPICAL TID #22 g 12/07/20 triamcinolone acetonide 0.1 % 1 appl TOPICAL DAILY #30 g 12/07/20 topical ointment diclofenac sodium 1 % topical gel 2 ea TOPICAL BID PRN #30 g 12/08/20 metformin 1,000 mg tablet 1,000 mg PO BID #60 tab 12/08/20 amlodipine 5 mg tablet 5 mg PO DAILY #30 tab 02/07/21 blood sugar diagnostic (FreeStyle #100 ea 02/07/21 Test) lancets 28 gauge #100 ea 02/07/21 metoprolol tartrate 50 mg tablet 100 mg PO BID #60 tab 02/07/21 pen needle, diabetic 31 gauge x #50 ea 02/07/21 3/16 cetirizine 10 mg tablet 10 mg PO DAILY PRN 90 Days #90 tab 02/14/21 doxycycline hyclate 100 mg tablet 100 mg PO BID 5 Days #10 tab 03/03/21 efinaconazole 10 % topical 1 appl TOPICAL BEDTIME 336 Days ml 04/09/21 solution with applicator blood sugar diagnostic (FreeStyle #100 ea 04/18/21 Lite Strips) BACK BRACE #1 ea 04/29/21 tizanidine 4 mg tablet 4 mg PO Q8H PRN 10 Days #30 tab 04/29/21 dulaglutide 0.75 mg/0.5 mL 0.75 mg (0.5 mL) SUBCUT QWEEK #2 ml 05/01/21 subcutaneous pen injector lisinopril 30 mg tablet 30 mg PO DAILY #90 tab 05/03/21 buspirone 30 mg tablet 30 mg PO TID #90 tab 05/22/21 apixaban 5 mg tablet (Eliquis) 5 mg PO BID #60 tab 06/02/21 quetiapine 50 mg tablet 50 mg PO BEDTIME #30 tab 06/03/21 clobetasol 0.05 % topical ointment 1 appl TOPICAL BID 7 Days #45 g 06/08/21 lidocaine 5 % topical patch 2 patch TOPICAL DAILY PRN #60 ea 06/08/21 fluconazole 150 mg tablet 150 mg PO DAILY #1 tab 07/05/21 (Diflucan) lidocaine 5 % topical patch 1 patch TOPICAL .twice a day #60 ea 07/11/21 (Lidoderm) zolpidem 10 mg tablet 10 mg PO BEDTIME PRN 30 Days #30 07/11/21 tab escitalopram oxalate 20 mg tablet 20 mg PO DAILY #30 tab 07/13/21 insulin glargine 100 unit/mL (3 30 unit (0.3 mL) SUBCUT BEDTIME 07/15/21 mL) subcutaneous pen (Lantus #15 ml Solostar U-100 Insulin) tramadol 50 mg tablet 50 mg PO TID PRN 30 Days #90 tab 07/15/21 albuterol sulfate 90 mcg/actuation 2 puff PO Q8H PRN 30 Days #8.5 g 07/25/21 aerosol inhaler hydroxyzine HCl 25 mg tablet 25 mg PO TID PRN #90 tab 07/25/21 clotrimazole 1 % topical cream 1 appl TOPICAL BID #30 g 07/27/21 tamsulosin 0.4 mg capsule 0.4 mg PO DAILY #30 cap 07/27/21 Allergies Allergy/AdvReac Type Severity Reaction Status Date / Time Penicillins [PENICILLINS] Allergy Unknown RASH Verified 06/08/21 12:01 Review of Systems Review of Systems: Yes all other systems are reviewed and are negative PMF Past Medical History Medical History Anxiety Arthritis Asthma Benign essential hypertension BPH (benign prostatic hyperplasia) Depression Diabetes Family history of thyroid disorder Insomnia Lumbar degenerative disc disease Morbid obesity with BMI of 40.0-44.9, adult Overactive bladder Primary osteoarthritis of both knees Seizure Substance abuse Type 2 diabetes mellitus with hyperglycemia Surgical History No history of previous surgery Family History Family History Father ETOH abuse Mother Diabetes Arthritis of knee Hypertension Other Mental health problem Substance abuse Social History Social History Household Members: Other Household Members Other:: room Housing: Other Housing Other:: Room Do you presently have visiting nurse or other home services: No Alcohol intake: unknown Patient Tobacco Use Status: Former Tobacco user Second Hand Smoke Exposure: Yes Substance Use Type: Heroin and Marijuana Advance Directives: No Advance Directives Information Provided: No service: No Current occupational status: unemployed Cognitive needs: No Hearing needs: No Vision needs: No Physical Exam Vital Signs: Vital Signs: Last Vital Signs Temp 98.5 F 07/27/21 23:12 Pulse 88 07/27/21 23:12 Resp 18 07/27/21 19:05 BP 168/73 H 07/27/21 23:12 Pulse Ox 98 07/27/21 23:12 BMI result Body Mass Index 43.2 Appearance: Alert. Oriented X3. No acute distress. ENT: Pharynx normal. Oral Mucosa moist no oral thrush Neck: Normal inspection. Neck supple. CVS: Normal heart rate and rhythm. Pulses normal. Respiratory: No respiratory distress. Equal air entry bilateral, no wheezing/rales/rhonchi Abdomen: Soft and nontender. Bowel sounds are present, : Slight erythema of penis glans with whitish discharge suggestive of candidiasis Skin: Skin warm and dry. Normal skin color. Normal skin turgor. Extremities: No lower extremity edema. No calf tenderness Neuro: Oriented X 3. MDM - Male Genitourinary Lab Data Labs: Lab Results 07/27/21 07/27/21 Range/Units 21:49 21:49 COVID-19 ([facility]) Negative (Negative) COVID-19 Clin Com See Note Influenza Type A ([facility]) Negative (Negative) Influenza Type B ([facility]) Negative (Negative) Influenza A & B Note See Note Discharge Plan Discharge Clinical Impression: Balanitis Patient Disposition: Home, Self-Care Instructions: Kunal (ED) Additional Instructions: Apply ointment as prescribed and follow-up with urology Prescriptions: New clotrimazole 1 % cream 1 appl topical BID Qty: 30 3RF No Action metformin 1,000 mg tablet 1,000 mg PO BID Qty: 60 0RF diclofenac sodium 1 % gel 2 ea topical BID PRN (Reason: Pain) Qty: 30 0RF Rx Instructions: apply to bilaterial knees (DME) lancets 28 gauge misc See Rx Instructions lancet topical TID Qty: 100 0RF Rx Instructions: As directed metoprolol tartrate 50 mg tablet 100 mg PO BID Qty: 60 0RF amlodipine 5 mg tablet 5 mg PO DAILY Qty: 30 1RF (DME) pen needle, diabetic 31 gauge x 3/16 needle See Rx Instructions ea subcut .MEDSUPPLY Qty: 50 3RF Rx Instructions: One daily (DME) FreeStyle Test Strip See Rx Instructions .Route Qty: 100 0RF Rx Instructions: TID (DME) FreeStyle Lite Strips Strip See Rx Instructions .ROUTE .MEDSUPPLY Qty: 100 12RF Rx Instructions: As directed three times a day lisinopril 30 mg tablet 30 mg PO DAILY Qty: 90 0RF buspirone 30 mg tablet 30 mg PO TID Qty: 90 1RF Eliquis 5 mg tablet 5 mg PO BID Qty: 60 1RF quetiapine 50 mg tablet 50 mg PO BEDTIME Qty: 30 1RF lidocaine [Lidoderm] 5 % adhesive patch,medicated 1 patch topical .twice a day Qty: 60 0RF Rx Instructions: use one patch on affected area twice a day zolpidem 10 mg tablet 10 mg PO BEDTIME PRN (Reason: insomnia) 30 Days Qty: 30 1RF escitalopram oxalate 20 mg tablet 20 mg PO DAILY Qty: 30 1RF Lantus Solostar U-100 Insulin 100 unit/mL (3 mL) insulin pen 30 unit subcut BEDTIME Qty: 15 2RF tramadol 50 mg tablet 50 mg PO TID PRN (Reason: pain) 30 Days Qty: 90 0RF albuterol sulfate 90 mcg/actuation HFA aerosol inhaler 2 puff PO Q8H PRN (Reason: shortness of breath or wheezing) 30 Days Qty: 8.5 3RF hydroxyzine HCl 25 mg tablet 25 mg PO TID PRN (Reason: for anxiety) Qty: 90 0RF tamsulosin 0.4 mg capsule 0.4 mg PO DAILY Qty: 30 1RF efinaconazole 10 % solution with applicator 1 appl topical BEDTIME 336 Days 0RF mupirocin 2 % ointment 1 appl topical TID Qty: 22 0RF clotrimazole 1 % cream 1 appl topical TID Qty: 30 0RF triamcinolone acetonide 0.1 % ointment 1 appl topical DAILY Qty: 30 0RF doxycycline hyclate 100 mg tablet 100 mg PO BID 5 Days Qty: 10 0RF fluconazole [Diflucan] 150 mg tablet 150 mg PO DAILY Qty: 1 0RF Rx Instructions: take in one week tizanidine 4 mg tablet 4 mg PO Q8H PRN (Reason: muscle spasticity) 10 Days Qty: 30 2RF (DME) BACK BRACE XL See Rx Instructions .Route .MEDSUPPLY Qty: 1 0RF Rx Instructions: As directed dulaglutide 0.75 mg/0.5 mL pen injector 0.75 mg subcut QWEEK Qty: 2 1RF cetirizine 10 mg tablet 10 mg PO DAILY PRN (Reason: allergy symptoms) 90 Days Qty: 90 3RF clobetasol 0.05 % ointment 1 appl topical BID 7 Days Qty: 45 0RF lidocaine 5 % adhesive patch,medicated 2 patch topical DAILY PRN (Reason: pain) Qty: 60 5RF Rx Instructions: leave on most painful area for up to 12 hrs. keep off for 12 hrs Referrals: Oimd Cramer MD [Physician] - 2 weeks Interventions: ED Discharge Assessment Last Done: 07/28/21 00:09 Discharge Date/Time: 07/28/21 00:10
[2021-07-27 23:12] VITALS: BP 168/73; PULSE 88; TEMP 36.9; O2SAT 98
== END 2021-07-28 00:10 | disposition home or self-care (01) ==
PROVIDERS: Emergency Provider Internal Medicine; PCP Internal Medicine
DX: N48.1 Balanitis (principal); Z20.822 Contact with and (suspected) exposure to COVID-19; E11.9 Type 2 diabetes mellitus without complications; I10 Essential (primary) hypertension
CPT/HCPCS: 87502; 87635; 99281; 99283

== ENCOUNTER 2021-11-05 16:45 | Inpatient (IN) | payer OTHER, SELFPAY ==
[2021-11-05] VITALS (8 sets, daily range): BP systolic 116–160; BP diastolic 38–104; PULSE 104–162; RESP 15–22; TEMP 37.1; O2SAT 96–99; BMI 42.1
--- NOTE | ~2021-11-05 | XR_ITS ---
EXAMINATION: XR chest 1V CLINICAL INFORMATION: Chest pain COMPARISON: 2020 TECHNIQUE: XR chest 1V Tubes and lines: None Lungs and pleura: Both lungs are clear. Heart and mediastinum: The mediastinum is within normal limits.. Bones/soft tissue: Skeletal structures included are normal for patient's age. XR/XR chest 1V IMPRESSION: No radiographic evidence of acute cardiopulmonary disease.
--- NOTE | 2021-11-05 17:00 | ECG_ITS ---
Test Reason : CP Blood Pressure : / mmHG Vent. Rate : 158 BPM Atrial Rate : 000 BPM P-R Int : 000 ms QRS Dur : 086 ms QT Int : 294 ms P-R-T Axes : 000 065 -36 degrees QTc Int : 476 ms Atrial fibrillation with rapid ventricular response Cannot rule out Inferior infarct , age undetermined Abnormal ECG When compared with ECG of 28-APR-2020 22:15, No significant change was found Referred By: Georgina Laboy Electronically Signed By:JOSE CRUZ PONCE
--- NOTE | 2021-11-05 17:10 | ED.CHESTPAIN ---
HPI - Chest Pain General Chief Complaint: Chest Pain Stated Complaint: Right sided chest pain Related Data Previous Rx's Medication Instructions Recorded clotrimazole 1 % topical cream 1 appl topical TID #30 grams 12/07/20 mupirocin 2 % topical ointment 1 appl topical TID #22 grams 12/07/20 triamcinolone acetonide 0.1 % 1 appl topical DAILY #30 grams 12/07/20 topical ointment diclofenac sodium 1 % topical gel 2 ea topical BID PRN Pain #30 grams 12/08/20 blood sugar diagnostic (FreeStyle #100 ea 02/07/21 Test strips) lancets 28 gauge #100 ea 02/07/21 metoprolol tartrate 50 mg tablet 100 mg PO BID #60 tabs 02/07/21 pen needle, diabetic 31 gauge x #50 ea 02/07/21 3 cetirizine 10 mg tablet 10 mg PO DAILY PRN allergy 02/14/21 symptoms 90 days #90 tabs doxycycline hyclate 100 mg tablet 100 mg PO BID 5 days #10 tabs 03/03/21 efinaconazole 10 % topical 1 appl topical BEDTIME 48 weeks 04/09/21 solution with applicator BACK BRACE #1 ea 04/29/21 tizanidine 4 mg tablet 4 mg PO Q8H PRN muscle spasticity 04/29/21 10 days #30 tabs clobetasol 0.05 % topical ointment 1 appl topical BID 1 week #45 grams 06/08/21 lidocaine 5 % topical patch 2 patch topical DAILY PRN pain #60 06/08/21 ea fluconazole 150 mg tablet 150 mg PO DAILY #1 tab 07/05/21 (Diflucan) lidocaine 5 % topical patch 1 patch topical .twice a day pain 07/11/21 (Lidoderm) #60 ea insulin glargine 100 unit/mL (3 30 unit (0.3 mL) subcut BEDTIME 07/15/21 mL) subcutaneous pen (Lantus #15 mL Solostar U-100 Insulin) albuterol sulfate 90 mcg/actuation 2 puff PO Q8H PRN shortness of 07/25/21 aerosol inhaler breath or wheezing 30 days #8.5 grams clotrimazole 1 % topical cream 1 appl topical BID #30 grams 07/27/21 blood sugar diagnostic (FreeStyle #100 ea 07/28/21 Lite Strips) zolpidem 10 mg tablet 10 mg PO BEDTIME PRN insomnia 30 08/31/21 days #30 tabs metformin 1,000 mg tablet 1,000 mg PO BID #60 tabs 09/07/21 buspirone 30 mg tablet 30 mg PO TID #90 tabs 09/13/21 dulaglutide 0.75 mg/0.5 mL 0.75 mg (0.5 mL) subcut QWEEK #2 mL 09/16/21 subcutaneous pen injector tamsulosin 0.4 mg capsule 0.4 mg PO DAILY #30 caps 10/10/21 amlodipine 5 mg tablet 5 mg PO DAILY #30 tabs 10/17/21 quetiapine 50 mg tablet 50 mg PO BEDTIME #30 tabs 10/17/21 lisinopril 30 mg tablet 30 mg PO DAILY #90 tabs 10/27/21 escitalopram oxalate 20 mg tablet 20 mg PO DAILY #30 tabs 10/30/21 hydroxyzine HCl 25 mg tablet 25 mg PO TID PRN for anxiety #90 11/01/21 tabs apixaban 5 mg tablet (Eliquis) 5 mg PO BID #60 tabs 11/03/21 tramadol 50 mg tablet 50 mg PO TID PRN pain 30 days #90 11/04/21 tabs Allergies Allergy/AdvReac Type Severity Reaction Status Date / Time Penicillins [PENICILLINS] Allergy Unknown RASH Verified 11/05/21 16:55 [facility] Past Medical History Attestation statement: The following information was validated with the patient. Source: old records reviewed Medical History Anxiety Arthritis Asthma Benign essential hypertension BPH (benign prostatic hyperplasia) Depression Diabetes Family history of thyroid disorder Insomnia Lumbar degenerative disc disease Morbid obesity with BMI of 40.0-44.9, adult Overactive bladder Primary osteoarthritis of both knees Seizure Substance abuse Type 2 diabetes mellitus with hyperglycemia Surgical History No history of previous surgery Family History Family History Father ETOH abuse Mother Diabetes Arthritis of knee Hypertension Other Mental health problem Substance abuse Social History Social History Household Members: Other Household Members Other:: room Housing: Other Housing Other:: Room Do you presently have visiting nurse or other home services: No Alcohol intake: unknown Patient Tobacco Use Status: Former Tobacco user Second Hand Smoke Exposure: Yes Substance Use Type: Heroin and Marijuana service: No Current occupational status: unemployed Cognitive needs: No Hearing needs: No Vision needs: No Physical Exam Vital Signs: Vital Signs: Last Vital Signs Temp 98.7 F 11/05/21 16:55 Pulse 104 H 11/05/21 16:55 Resp 20 11/05/21 16:55 BP 153/104 H 11/05/21 16:55 Pulse Ox 96 11/05/21 16:55 O2 Del Method 11/05/21 16:55 BMI result Body Mass Index 42.1 Discharge Plan Discharge Prescriptions: No Action diclofenac sodium 1 % gel 2 ea topical BID PRN (Reason: Pain) Qty: 30 0RF Rx Instructions: apply to bilaterial knees (DME) lancets 28 gauge misc See Rx Instructions topical TID Qty: 100 0RF Rx Instructions: As directed metoprolol tartrate 50 mg tablet 100 mg PO BID Qty: 60 0RF (DME) pen needle, diabetic 31 gauge x 3/16 needle See Rx Instructions subcut .MEDSUPPLY Qty: 50 3RF Rx Instructions: One daily (DME) FreeStyle Test Strip See Rx Instructions .Route Qty: 100 0RF Rx Instructions: TID lidocaine [Lidoderm] 5 % adhesive patch,medicated 1 patch topical .twice a day Qty: 60 0RF Rx Instructions: use one patch on affected area twice a day Lantus Solostar U-100 Insulin 100 unit/mL (3 mL) insulin pen 30 unit subcut BEDTIME Qty: 15 2RF albuterol sulfate 90 mcg/actuation HFA aerosol inhaler 2 puff PO Q8H PRN (Reason: shortness of breath or wheezing) 30 Days Qty: 8.5 3RF (DME) FreeStyle Lite Strips Strip See Rx Instructions .ROUTE .MEDSUPPLY Qty: 100 12RF Rx Instructions: As directed three times a day zolpidem 10 mg tablet 10 mg PO BEDTIME PRN (Reason: insomnia) 30 Days Qty: 30 1RF metformin 1,000 mg tablet 1,000 mg PO BID Qty: 60 0RF buspirone 30 mg tablet 30 mg PO TID Qty: 90 1RF dulaglutide 0.75 mg/0.5 mL pen injector 0.75 mg subcut QWEEK Qty: 2 1RF tamsulosin 0.4 mg capsule 0.4 mg PO DAILY Qty: 30 1RF amlodipine 5 mg tablet 5 mg PO DAILY Qty: 30 1RF quetiapine 50 mg tablet 50 mg PO BEDTIME Qty: 30 0RF lisinopril 30 mg tablet 30 mg PO DAILY Qty: 90 0RF escitalopram oxalate 20 mg tablet 20 mg PO DAILY Qty: 30 1RF hydroxyzine HCl 25 mg tablet 25 mg PO TID PRN (Reason: for anxiety) Qty: 90 0RF Eliquis 5 mg tablet 5 mg PO BID Qty: 60 0RF tramadol 50 mg tablet 50 mg PO TID PRN (Reason: pain) 30 Days Qty: 90 0RF efinaconazole 10 % solution with applicator 1 appl topical BEDTIME 336 Days 0RF mupirocin 2 % ointment 1 appl topical TID Qty: 22 0RF clotrimazole 1 % cream 1 appl topical TID Qty: 30 0RF triamcinolone acetonide 0.1 % ointment 1 appl topical DAILY Qty: 30 0RF doxycycline hyclate 100 mg tablet 100 mg PO BID 5 Days Qty: 10 0RF fluconazole [Diflucan] 150 mg tablet 150 mg PO DAILY Qty: 1 0RF Rx Instructions: take in one week clotrimazole 1 % cream 1 appl topical BID Qty: 30 3RF tizanidine 4 mg tablet 4 mg PO Q8H PRN (Reason: muscle spasticity) 10 Days Qty: 30 2RF (DME) BACK BRACE XL See Rx Instructions .Route .MEDSUPPLY Qty: 1 0RF Rx Instructions: As directed cetirizine 10 mg tablet 10 mg PO DAILY PRN (Reason: allergy symptoms) 90 Days Qty: 90 3RF clobetasol 0.05 % ointment 1 appl topical BID 7 Days Qty: 45 0RF lidocaine 5 % adhesive patch,medicated 2 patch topical DAILY PRN (Reason: pain) Qty: 60 5RF Rx Instructions: leave on most painful area for up to 12 hrs. keep off for 12 hrs
--- NOTE | 2021-11-05 17:17 | ED_ITS ---
HPI - Chest Pain General Chief Complaint: Chest Pain Stated Complaint: Right sided chest pain Time Seen by Provider: 11/05/21 17:15 Source: patient Mode of arrival: ambulatory Limitations: no limitations History of Present Illness HPI narrative: Patient comes to the emergency room complaining of chest pain, palpitation or tingling of her about 4 hours. Patient complaining of palpitations, no shortness of breath, patient admits to using heroin prior to arrival and also smoking THC. Patient states he has no chest pain. Patient has history of atrial fibrillation, takes Eliquis. Patient states that for the last 10 days he has not taking any Eliquis, unclear reason. Patient states he takes too many medications and does not know which medications he has been taking, states he takes unknown medications and alternate some but he is sure that he has not had Eliquis for 10 days Related Data Previous Rx's Medication Instructions Recorded clotrimazole 1 % topical cream 1 appl topical TID #30 grams 12/07/20 mupirocin 2 % topical ointment 1 appl topical TID #22 grams 12/07/20 triamcinolone acetonide 0.1 % 1 appl topical DAILY #30 grams 12/07/20 topical ointment diclofenac sodium 1 % topical gel 2 ea topical BID PRN Pain #30 grams 12/08/20 blood sugar diagnostic (FreeStyle #100 ea 02/07/21 Test strips) lancets 28 gauge #100 ea 02/07/21 metoprolol tartrate 50 mg tablet 100 mg PO BID #60 tabs 02/07/21 pen needle, diabetic 31 gauge x #50 ea 02/07/21 3/16 cetirizine 10 mg tablet 10 mg PO DAILY PRN allergy 02/14/21 symptoms 90 days #90 tabs doxycycline hyclate 100 mg tablet 100 mg PO BID 5 days #10 tabs 03/03/21 efinaconazole 10 % topical 1 appl topical BEDTIME 48 weeks 04/09/21 solution with applicator BACK BRACE #1 ea 04/29/21 tizanidine 4 mg tablet 4 mg PO Q8H PRN muscle spasticity 04/29/21 10 days #30 tabs clobetasol 0.05 % topical ointment 1 appl topical BID 1 week #45 grams 06/08/21 lidocaine 5 % topical patch 2 patch topical DAILY PRN pain #60 06/08/21 ea fluconazole 150 mg tablet 150 mg PO DAILY #1 tab 07/05/21 (Diflucan) lidocaine 5 % topical patch 1 patch topical .twice a day pain 07/11/21 (Lidoderm) #60 ea insulin glargine 100 unit/mL (3 30 unit (0.3 mL) subcut BEDTIME 07/15/21 mL) subcutaneous pen (Lantus #15 mL Solostar U-100 Insulin) albuterol sulfate 90 mcg/actuation 2 puff PO Q8H PRN shortness of 07/25/21 aerosol inhaler breath or wheezing 30 days #8.5 grams clotrimazole 1 % topical cream 1 appl topical BID #30 grams 07/27/21 blood sugar diagnostic (FreeStyle #100 ea 07/28/21 Lite Strips) zolpidem 10 mg tablet 10 mg PO BEDTIME PRN insomnia 30 08/31/21 days #30 tabs metformin 1,000 mg tablet 1,000 mg PO BID #60 tabs 09/07/21 buspirone 30 mg tablet 30 mg PO TID #90 tabs 09/13/21 dulaglutide 0.75 mg/0.5 mL 0.75 mg (0.5 mL) subcut QWEEK #2 mL 09/16/21 subcutaneous pen injector tamsulosin 0.4 mg capsule 0.4 mg PO DAILY #30 caps 10/10/21 amlodipine 5 mg tablet 5 mg PO DAILY #30 tabs 10/17/21 quetiapine 50 mg tablet 50 mg PO BEDTIME #30 tabs 10/17/21 lisinopril 30 mg tablet 30 mg PO DAILY #90 tabs 10/27/21 escitalopram oxalate 20 mg tablet 20 mg PO DAILY #30 tabs 10/30/21 hydroxyzine HCl 25 mg tablet 25 mg PO TID PRN for anxiety #90 11/01/21 tabs apixaban 5 mg tablet (Eliquis) 5 mg PO BID #60 tabs 11/03/21 tramadol 50 mg tablet 50 mg PO TID PRN pain 30 days #90 11/04/21 tabs Allergies Allergy/AdvReac Type Severity Reaction Status Date / Time Penicillins [PENICILLINS] Allergy Unknown RASH Verified 11/05/21 16:55 Review of Systems Review of Systems: Constitutional : No Weight loss, No Fever, No Chills, No Night Sweats, No Fatigue, No Malaise ENT/Mouth : No Hearing loss, No Ear Pain, No Nasal Congestion, No Sinus Pain, No Hoarseness, No sore throat, No Rhinorrhea, No Swallowing Difficulty Eyes: No Eye Pain, No Swelling, No Redness, No Foreign Body, No Discharge, No Vision Changes Cardiovascular : Complaining of mild chest discomfort, complaining of palpitations Respiratory : No Cough, No Sputum, No Wheezing, No Smoke Exposure, No Dyspnea Gastrointestinal : No Nausea, No Vomiting, No Diarrhea, No Constipation, No abdominal Pain, No Hematochezia, No Melena Genitourinary : no irregular bleeding, No Dysuria, No Urinary Frequency, No Hematuria, No Urinary Incontinence, No Urgency, No Flank Pain, No Urinary Flow Changes, No Hesitancy Musculoskeletal : No joint pain, No Myalgias, No Joint Swelling Skin : No Skin Lesions, No rash Neuro : No Weakness, No Numbness, No Paresthesias, No Loss of Consciousness, No Dizziness, No Headache Psych : No Anxiety/Panic, No Depression, No SI/HI/AH/VH, No Social Issues, Heme/Lymph: No Bruising, No Bleeding,No Lymphadenopathy Endocrine : No Polyuria, No Polydipsia, No Temperature Intolerance PMFSH Past Medical History Medical History Anxiety Arthritis Asthma Benign essential hypertension BPH (benign prostatic hyperplasia) Depression Diabetes Family history of thyroid disorder Insomnia Lumbar degenerative disc disease Morbid obesity with BMI of 40.0-44.9, adult Overactive bladder Primary osteoarthritis of both knees Seizure Substance abuse Type 2 diabetes mellitus with hyperglycemia Surgical History No history of previous surgery Family History Family History Father ETOH abuse Mother Diabetes Arthritis of knee Hypertension Other Mental health problem Substance abuse Social History Social History Household Members: Other Household Members Other:: room Housing: Other Housing Other:: Room Do you presently have visiting nurse or other home services: No Alcohol intake: current Alcohol intake frequency: holidays/special occasions only Patient Tobacco Use Status: Never used Tobacco Second Hand Smoke Exposure: Yes Use of substances other than those prescribed or required for medical reasons: Yes Substance Use Type: Crack/Cocaine, Heroin and Marijuana Last Used Substance: Hours (ago) Advance Directives: No Advance Directives Information Provided: No service: No Current occupational status: unemployed Cognitive needs: No Hearing needs: No Vision needs: No Physical Exam Vital Signs: Vital Signs: Last Vital Signs Temp 98.7 F 11/05/21 16:55 Pulse 115 H 11/05/21 20:32 Resp 19 11/05/21 20:32 BP 120/61 11/05/21 20:32 Pulse Ox 97 11/05/21 20:32 O2 Del Method 11/05/21 20:32 BMI result Body Mass Index 42.1 Course Course Course Narrative: Patient received 20 mg of IV Cardizem, no significant improvement with a heart rate that was in the 160s, patient received a 2nd dose of 20 mg Cardizem, heart rate improved to the 120 is but shortly after that went back to the 140s. Patient received 1 additional dose of metoprolol 5 mg. Blood pressure 105 systolic, heart rate still in the 140s. Patient is now on a Cardizem drip. Patient's initial blood glucose is 524, patient received IV insulin 10 units, improved to 359. I discussed the patient with Dr. Ramos, patient being admitted. Patient states that the more in the morning, he would like to talk to the fitness coach is about starting Suboxone MDM - Chest Pain Lab Data Result diagrams: 11/05/21 17:19 11/05/21 17:19 Labs: Lab Results 11/05/21 11/05/21 11/05/21 Range/Units 17:19 17:19 17:19 WBC 12.8 H (4.8-10.8) X10*3/uL RBC 4.99 (4.60-5.80) X10*6/uL Hgb 14.7 (14.0-18.0) g/dl Hct 42.7 (42.0-52.0) % MCV 85.6 (80.0-98.0) fL MCH 29.5 (27.0-33.0) pg MCHC 34.4 (31.0-36.0) g/dl RDW 12.0 (11.0-16.0) % Plt Count 291 (160-400) X10*3/uL MPV 9.9 (9.4-12.4) fL Immature Gran % (Auto) 0.4 (0.0-0.4) % Neut % (Auto) 68.4 (45-73) % Lymph % (Auto) 22.7 (20-40) % [place] % (Auto) 7.4 (2-11) % Eos % (Auto) 0.9 (0-4) % Baso % (Auto) 0.2 (0-2) % Lymph # (Auto) 2.9 (1.2-4.9) X10*3/uL [place] # (Auto) 1.0 (0.1-1.2) X10*3/uL Eos # (Auto) 0.1 (0.0-0.4) X10*3/uL Baso # (Auto) 0.0 (0.0-0.2) X10*3/uL Abs Immat Gran (auto) 0.05 H (0.00-0.03) X10*3/uL Absolute Neuts (auto) 8.8 H (2.0-8.3) x10*3/uL Absolute Nucleated RBC 0.000 (0.0-0.012) X10*3/uL Nucleated RBC % (auto) 0.0 (0.0-0.2) /100WBC PT 10.1 (10.0-13.1) SEC INR 0.9 (0.9-1.1) APTT 28.0 (26.0-36.4) SEC Sodium 135 (135-145) mmol/L Potassium 4.9 (3.3-5.1) mmol/L Chloride 96 (96-108) mmol/L Carbon Dioxide 29 (22-29) mmol/L Anion Gap 15 (12-20) BUN 16 (9-16) mg/dL Creatinine 1.45 H (0.5-1.4) mg/dL Estim Creat Clear Calc 87.1 Estimated GFR 52 POC Glucose (60-115) mg/dL Random Glucose 524 H* (60-115) mg/dL Calcium 9.3 (8.4-10.2) mg/dL Magnesium (1.6-2.6) mg/dL Total Bilirubin (0.0-1.0) mg/dL Direct Bilirubin (0.0-0.5) mg/dL AST (5-37) U/L ALT (0-40) U/L Alkaline Phosphatase (39-117) U/L Troponin I High Sens (<3.5-35.0) ng/L B-Natriuretic Peptide (<100) pg/mL Total Protein (6.5-8.0) g/dL Albumin (3.5-5.0) g/dL Lipase (8-78) U/L Urine Color Urine Appearance Urine pH (5.0-8.0) Ur Specific [place] (1.005-1.025) Urine Protein (Neg-Trace) mg/dL Urine Glucose (UA) (Negative) mg/dL Urine Ketones (Negative) mg/dL Urine Blood (Negative) Urine Nitrite (Negative) Ur Leukocyte Esterase (Negative) Urine RBC (0-2) /HPF Urine WBC (0-5) /HPF Ur Squamous Epith Cells (0-2) /HPF Urine Bacteria (None Seen) Hyaline Casts (0-2) /LPF Urine Opiates Screen (Not Detect) Urine Fentanyl Screen (Not Detect) Ur Barbiturates Screen (Not Detect) Ur Phencyclidine Scrn (Not Detect) Ur Amphetamines Screen (Not Detect) U Benzodiazepines Scrn (Not Detect) Urine Cocaine Screen (Not Detect) U Marijuana (THC) Screen (Not Detect) COVID-19 (DG) (Negative) COVID-19 Clin Com 11/05/21 11/05/21 11/05/21 Range/Units 17:19 17:19 17:19 WBC (4.8-10.8) X10*3/uL RBC (4.60-5.80) X10*6/uL Hgb (14.0-18.0) g/dl Hct (42.0-52.0) % MCV (80.0-98.0) fL MCH (27.0-33.0) pg MCHC (31.0-36.0) g/dl RDW (11.0-16.0) % Plt Count (160-400) X10*3/uL MPV (9.4-12.4) fL Immature Gran % (Auto) (0.0-0.4) % Neut % (Auto) (45-73) % Lymph % (Auto) (20-40) % [place] % (Auto) (2-11) % Eos % (Auto) (0-4) % Baso % (Auto) (0-2) % Lymph # (Auto) (1.2-4.9) X10*3/uL [place] # (Auto) (0.1-1.2) X10*3/uL Eos # (Auto) (0.0-0.4) X10*3/uL Baso # (Auto) (0.0-0.2) X10*3/uL Abs Immat Gran (auto) (0.00-0.03) X10*3/uL Absolute Neuts (auto) (2.0-8.3) x10*3/uL Absolute Nucleated RBC (0.0-0.012) X10*3/uL Nucleated RBC % (auto) (0.0-0.2) /100WBC PT (10.0-13.1) SEC INR (0.9-1.1) APTT (26.0-36.4) SEC Sodium (135-145) mmol/L Potassium (3.3-5.1) mmol/L Chloride (96-108) mmol/L Carbon Dioxide (22-29) mmol/L Anion Gap (12-20) BUN (9-16) mg/dL Creatinine (0.5-1.4) mg/dL Estim Creat Clear Calc Estimated GFR POC Glucose (60-115) mg/dL Random Glucose (60-115) mg/dL Calcium (8.4-10.2) mg/dL Magnesium 2.0 (1.6-2.6) mg/dL Total Bilirubin 0.3 (0.0-1.0) mg/dL Direct Bilirubin < 0.2 (0.0-0.5) mg/dL AST 28 (5-37) U/L ALT 45 H (0-40) U/L Alkaline Phosphatase 131 H D (39-117) U/L Troponin I High Sens (<3.5-35.0) ng/L B-Natriuretic Peptide 13 (<100) pg/mL Total Protein 7.2 (6.5-8.0) g/dL Albumin 4.3 (3.5-5.0) g/dL Lipase 35 (8-78) U/L Urine Color Urine Appearance Urine pH (5.0-8.0) Ur Specific [place] (1.005-1.025) Urine Protein (Neg-Trace) mg/dL Urine Glucose (UA) (Negative) mg/dL Urine Ketones (Negative) mg/dL Urine Blood (Negative) Urine Nitrite (Negative) Ur Leukocyte Esterase (Negative) Urine RBC (0-2) /HPF Urine WBC (0-5) /HPF Ur Squamous Epith Cells (0-2) /HPF Urine Bacteria (None Seen) Hyaline Casts (0-2) /LPF Urine Opiates Screen (Not Detect) Urine Fentanyl Screen (Not Detect) Ur Barbiturates Screen (Not Detect) Ur Phencyclidine Scrn (Not Detect) Ur Amphetamines Screen (Not Detect) U Benzodiazepines Scrn (Not Detect) Urine Cocaine Screen (Not Detect) U Marijuana (THC) Screen (Not Detect) COVID-19 (DG) Negative (Negative) COVID-19 Clin Com See Note 11/05/21 11/05/21 11/05/21 Range/Units 17:22 17:46 17:46 WBC (4.8-10.8) X10*3/uL RBC (4.60-5.80) X10*6/uL Hgb (14.0-18.0) g/dl Hct (42.0-52.0) % MCV (80.0-98.0) fL MCH (27.0-33.0) pg MCHC (31.0-36.0) g/dl RDW (11.0-16.0) % Plt Count (160-400) X10*3/uL MPV (9.4-12.4) fL Immature Gran % (Auto) (0.0-0.4) % Neut % (Auto) (45-73) % Lymph % (Auto) (20-40) % [place] % (Auto) (2-11) % Eos % (Auto) (0-4) % Baso % (Auto) (0-2) % Lymph # (Auto) (1.2-4.9) X10*3/uL [place] # (Auto) (0.1-1.2) X10*3/uL Eos # (Auto) (0.0-0.4) X10*3/uL Baso # (Auto) (0.0-0.2) X10*3/uL Abs Immat Gran (auto) (0.00-0.03) X10*3/uL Absolute Neuts (auto) (2.0-8.3) x10*3/uL Absolute Nucleated RBC (0.0-0.012) X10*3/uL Nucleated RBC % (auto) (0.0-0.2) /100WBC PT (10.0-13.1) SEC INR (0.9-1.1) APTT (26.0-36.4) SEC Sodium (135-145) mmol/L Potassium (3.3-5.1) mmol/L Chloride (96-108) mmol/L Carbon Dioxide (22-29) mmol/L Anion Gap (12-20) BUN (9-16) mg/dL Creatinine (0.5-1.4) mg/dL Estim Creat Clear Calc Estimated GFR POC Glucose (60-115) mg/dL Random Glucose (60-115) mg/dL Calcium (8.4-10.2) mg/dL Magnesium (1.6-2.6) mg/dL Total Bilirubin (0.0-1.0) mg/dL Direct Bilirubin (0.0-0.5) mg/dL AST (5-37) U/L ALT (0-40) U/L Alkaline Phosphatase (39-117) U/L Troponin I High Sens 20.0 (<3.5-35.0) ng/L B-Natriuretic Peptide (<100) pg/mL Total Protein (6.5-8.0) g/dL Albumin (3.5-5.0) g/dL Lipase (8-78) U/L Urine Color Yellow Urine Appearance Clear Urine pH 5.5 (5.0-8.0) Ur Specific [place] >= 1.030 H (1.005-1.025) Urine Protein Negative (Neg-Trace) mg/dL Urine Glucose (UA) >=1000 H (Negative) mg/dL Urine Ketones Negative (Negative) mg/dL Urine Blood Negative (Negative) Urine Nitrite Negative (Negative) Ur Leukocyte Esterase Negative (Negative) Urine RBC 0-2 (0-2) /HPF Urine WBC 0-5 (0-5) /HPF Ur Squamous Epith Cells 0-2 (0-2) /HPF Urine Bacteria None Seen (None Seen) Hyaline Casts 0-2 (0-2) /LPF Urine Opiates Screen POSITIVE H (Not Detect) Urine Fentanyl Screen POSITIVE H (Not Detect) Ur Barbiturates Screen Not Detected (Not Detect) Ur Phencyclidine Scrn Not Detected (Not Detect) Ur Amphetamines Screen Not Detected (Not Detect) U Benzodiazepines Scrn Not Detected (Not Detect) Urine Cocaine Screen Not Detected (Not Detect) U Marijuana (THC) Screen POSITIVE H (Not Detect) COVID-19 (DG) (Negative) COVID-19 Clin Com 11/05/21 Range/Units 21:12 WBC (4.8-10.8) X10*3/uL RBC (4.60-5.80) X10*6/uL Hgb (14.0-18.0) g/dl Hct (42.0-52.0) % MCV (80.0-98.0) fL MCH (27.0-33.0) pg MCHC (31.0-36.0) g/dl RDW (11.0-16.0) % Plt Count (160-400) X10*3/uL MPV (9.4-12.4) fL Immature Gran % (Auto) (0.0-0.4) % Neut % (Auto) (45-73) % Lymph % (Auto) (20-40) % [place] % (Auto) (2-11) % Eos % (Auto) (0-4) % Baso % (Auto) (0-2) % Lymph # (Auto) (1.2-4.9) X10*3/uL [place] # (Auto) (0.1-1.2) X10*3/uL Eos # (Auto) (0.0-0.4) X10*3/uL Baso # (Auto) (0.0-0.2) X10*3/uL Abs Immat Gran (auto) (0.00-0.03) X10*3/uL Absolute Neuts (auto) (2.0-8.3) x10*3/uL Absolute Nucleated RBC (0.0-0.012) X10*3/uL Nucleated RBC % (auto) (0.0-0.2) /100WBC PT (10.0-13.1) SEC INR (0.9-1.1) APTT (26.0-36.4) SEC Sodium (135-145) mmol/L Potassium (3.3-5.1) mmol/L Chloride (96-108) mmol/L Carbon Dioxide (22-29) mmol/L Anion Gap (12-20) BUN (9-16) mg/dL Creatinine (0.5-1.4) mg/dL Estim Creat Clear Calc Estimated GFR POC Glucose 359 H* (60-115) mg/dL Random Glucose (60-115) mg/dL Calcium (8.4-10.2) mg/dL Magnesium (1.6-2.6) mg/dL Total Bilirubin (0.0-1.0) mg/dL Direct Bilirubin (0.0-0.5) mg/dL AST (5-37) U/L ALT (0-40) U/L Alkaline Phosphatase (39-117) U/L Troponin I High Sens (<3.5-35.0) ng/L B-Natriuretic Peptide (<100) pg/mL Total Protein (6.5-8.0) g/dL Albumin (3.5-5.0) g/dL Lipase (8-78) U/L Urine Color Urine Appearance Urine pH (5.0-8.0) Ur Specific [place] (1.005-1.025) Urine Protein (Neg-Trace) mg/dL Urine Glucose (UA) (Negative) mg/dL Urine Ketones (Negative) mg/dL Urine Blood (Negative) Urine Nitrite (Negative) Ur Leukocyte Esterase (Negative) Urine RBC (0-2) /HPF Urine WBC (0-5) /HPF Ur Squamous Epith Cells (0-2) /HPF Urine Bacteria (None Seen) Hyaline Casts (0-2) /LPF Urine Opiates Screen (Not Detect) Urine Fentanyl Screen (Not Detect) Ur Barbiturates Screen (Not Detect) Ur Phencyclidine Scrn (Not Detect) Ur Amphetamines Screen (Not Detect) U Benzodiazepines Scrn (Not Detect) Urine Cocaine Screen (Not Detect) U Marijuana (THC) Screen (Not Detect) COVID-19 (DG) (Negative) COVID-19 Clin Com Critical Care Time Critical Care Time Critical Care Time: Yes Total Critical Care Time: 60 Attestation: I have personally provided critical care time. Time includes review of lab data, radiology results, discussion with consultants, and monitoring for potential decompensation. Intervention performed as documented. Discharge Plan Discharge Clinical Impression: Atrial fibrillation with RVR, Substance abuse, Hyperglycemia Patient Disposition: Admitted As Inpatient Prescriptions: No Action diclofenac sodium 1 % gel 2 ea topical BID PRN (Reason: Pain) Qty: 30 0RF Rx Instructions: apply to bilaterial knees (DME) lancets 28 gauge misc See Rx Instructions topical TID Qty: 100 0RF Rx Instructions: As directed metoprolol tartrate 50 mg tablet 100 mg PO BID Qty: 60 0RF (DME) pen needle, diabetic 31 gauge x 3/16 needle See Rx Instructions subcut .MEDSUPPLY Qty: 50 3RF Rx Instructions: One daily (DME) FreeStyle Test Strip See Rx Instructions .Route Qty: 100 0RF Rx Instructions: TID lidocaine [Lidoderm] 5 % adhesive patch,medicated 1 patch topical .twice a day Qty: 60 0RF Rx Instructions: use one patch on affected area twice a day Lantus Solostar U-100 Insulin 100 unit/mL (3 mL) insulin pen 30 unit subcut BEDTIME Qty: 15 2RF albuterol sulfate 90 mcg/actuation HFA aerosol inhaler 2 puff PO Q8H PRN (Reason: shortness of breath or wheezing) 30 Days Qty: 8.5 3RF (DME) FreeStyle Lite Strips Strip See Rx Instructions .ROUTE .MEDSUPPLY Qty: 100 12RF Rx Instructions: As directed three times a day zolpidem 10 mg tablet 10 mg PO BEDTIME PRN (Reason: insomnia) 30 Days Qty: 30 1RF metformin 1,000 mg tablet 1,000 mg PO BID Qty: 60 0RF buspirone 30 mg tablet 30 mg PO TID Qty: 90 1RF dulaglutide 0.75 mg/0.5 mL pen injector 0.75 mg subcut QWEEK Qty: 2 1RF tamsulosin 0.4 mg capsule 0.4 mg PO DAILY Qty: 30 1RF amlodipine 5 mg tablet 5 mg PO DAILY Qty: 30 1RF quetiapine 50 mg tablet 50 mg PO BEDTIME Qty: 30 0RF lisinopril 30 mg tablet 30 mg PO DAILY Qty: 90 0RF escitalopram oxalate 20 mg tablet 20 mg PO DAILY Qty: 30 1RF hydroxyzine HCl 25 mg tablet 25 mg PO TID PRN (Reason: for anxiety) Qty: 90 0RF Eliquis 5 mg tablet 5 mg PO BID Qty: 60 0RF tramadol 50 mg tablet 50 mg PO TID PRN (Reason: pain) 30 Days Qty: 90 0RF efinaconazole 10 % solution with applicator 1 appl topical BEDTIME 336 Days 0RF mupirocin 2 % ointment 1 appl topical TID Qty: 22 0RF clotrimazole 1 % cream 1 appl topical TID Qty: 30 0RF triamcinolone acetonide 0.1 % ointment 1 appl topical DAILY Qty: 30 0RF doxycycline hyclate 100 mg tablet 100 mg PO BID 5 Days Qty: 10 0RF fluconazole [Diflucan] 150 mg tablet 150 mg PO DAILY Qty: 1 0RF Rx Instructions: take in one week clotrimazole 1 % cream 1 appl topical BID Qty: 30 3RF tizanidine 4 mg tablet 4 mg PO Q8H PRN (Reason: muscle spasticity) 10 Days Qty: 30 2RF (DME) BACK BRACE XL See Rx Instructions .Route .MEDSUPPLY Qty: 1 0RF Rx Instructions: As directed cetirizine 10 mg tablet 10 mg PO DAILY PRN (Reason: allergy symptoms) 90 Days Qty: 90 3RF clobetasol 0.05 % ointment 1 appl topical BID 7 Days Qty: 45 0RF lidocaine 5 % adhesive patch,medicated 2 patch topical DAILY PRN (Reason: pain) Qty: 60 5RF Rx Instructions: leave on most painful area for up to 12 hrs. keep off for 12 hrs
[2021-11-05 17:26] LABS: MANUAL DIFF FLAG NO
[2021-11-05 17:28] LABS: Basophils Percent Auto 0.2 % (0-2); Eosinophils Absolute Auto 0.1 X10*3/uL (0.0-0.4); Eosinophils Percent Auto 0.9 % (0-4); Hematocrit 42.7 % (42.0-52.0); Hemoglobin 14.7 g/dl (14.0-18.0); Imm Gran Abs Auto 0.05 X10*3/uL (0.00-0.03); Imm Gran Pct Auto 0.4 % (0.0-0.4); Lymphocytes Absolute Auto 2.9 X10*3/uL (1.2-4.9); Lymphocytes Percent Auto 22.7 % (20-40); Mean Corpuscular HGB Conc 34.4 g/dl (31.0-36.0); Mean Corpuscular Hemoglobin 29.5 pg (27.0-33.0); Mean Corpuscular Volume 85.6 fL (80.0-98.0); Mean Platelet Volume 9.9 fL (9.4-12.4); Monocytes Percent Auto 7.4 % (2-11); Neutrophils Absolute Auto 8.8 x10*3/uL (2.0-8.3); Neutrophils Percent Auto 68.4 % (45-73); Platelet Count 291 X10*3/uL (160-400); Red Blood Count 4.99 X10*6/uL (4.60-5.80); White Blood Count 12.8 X10*3/uL (4.8-10.8)
[2021-11-05] MEDS: dilTIAZem HCL 50 MG/10 ML VIAL 20 MG IVPUSH ×2 (17:30→18:10)
[2021-11-05] MEDS: 0.9 % Sodium Chloride 1,000 ML 999 ML IVCONT (17:31)
[2021-11-05 17:42] LABS: INTERNATIONAL NORM RATIO 0.9 (0.9-1.1); Prothrombin Time 10.1 SEC (10.0-13.1)
[2021-11-05 17:48] LABS: Alanine Aminotransferase 45 U/L (0-40); Albumin Level 4.3 g/dL (3.5-5.0); Alkaline Phosphatase 131 U/L (39-117); Aspartate Amino Transferase 28 U/L (5-37); Bilirubin Direct < 0.2 mg/dL (0.0-0.5); Bilirubin Total 0.3 mg/dL (0.0-1.0); Lipase 35 U/L (8-78); Total Protein 7.2 g/dL (6.5-8.0)
--- NOTE | 2021-11-05 17:48 | PC.NURSE ---
Pt came in with chest pain and feeling overwhelmingly fatigued and diaphoretic. Pt admits to have taken marijuana and heroin. HR at highest of 175. After administering diltiazem to pt, heart rate at 131 with a BP of 160/100, and RR 18.Pt is calm, watching television, and denies any chest pain.
[2021-11-05 17:55] LABS: B Type Natriuretic Peptide 13 pg/mL (<100)
[2021-11-05 17:59] LABS: Anion Gap 15 (12-20); Blood Urea Nitrogen 16 mg/dL (9-16); Calcium 9.3 mg/dL (8.4-10.2); Carbon Dioxide 29 mmol/L (22-29); Chloride 96 mmol/L (96-108); Creatinine Clr Calc Pharmacy 87.1; Estimated Glomerular Filt Rate 52; Glucose Random 524 mg/dL (60-115); Potassium 4.9 mmol/L (3.3-5.1); Sodium 135 mmol/L (135-145)
[2021-11-05 17:59] LABS: Appearance Urine Clear; Color Urine Yellow; Glucose Urine UA >=1000 mg/dL (Negative); Leukocyte Esterase Urine Negative (Negative); Nitrite Urine Negative (Negative); PH 5.5 (5.0-8.0); Specific Gravity - Urine >= 1.030 (1.005-1.025); Urine Blood Negative (Negative); Urine Ketones Negative (Negative); Urine Protein Negative (Neg-Trace)
[2021-11-05 18:04] LABS: Bacteria Urine None Seen (None Seen); Hyaline Casts Urine 0-2 /LPF (0-2); RBC Urine 0-2 /HPF (0-2); Squamous Epithelial Cell Urine 0-2 /HPF (0-2); WBC Urine 0-5 /HPF (0-5)
[2021-11-05] MEDS: Insulin Regular, Human 100 UNIT/ML 3 ML VIAL 10 UNIT IVPUSH (18:09)
[2021-11-05 18:12] LABS: COVID-19 Test Negative (Negative)
[2021-11-05 18:27] LABS: Amphetamine Screen Urine Not Detected (Not Detect); Barbiturates, Urine Not Detected (Not Detect); Benzodiazepines Screen Urine Not Detected (Not Detect); Cannabinoid Screen Urine POSITIVE (Not Detect); Cocaine Screen Urine Not Detected (Not Detect); Fentanyl, urine POSITIVE (Not Detect); Opiate Screen Urine POSITIVE (Not Detect); Phencyclidine Screen Urine Not Detected (Not Detect)
--- NOTE | 2021-11-05 20:12 | PC.NURSE ---
Pt given turkey sandwich per Pt request with diet gingerale, this RN continues to monitor, call light in reach.
[2021-11-05] MEDS: Metoprolol Tartrate 5 MG/5 ML VIAL IVPUSH (20:26)
[2021-11-05 21:17] LABS: Glucose, Whole Blood 359 mg/dL (60-115)
[2021-11-05] MEDS: dilTIAZem HCL 125 MG in 0.9 % Sodium Chloride 100 ML 10 MG IVCONT (22:25)
--- NOTE | 2021-11-05 23:49 | P.HPHOSP_ITS ---
History of Present Illness Date of Service: 11/05/21 Chief Complaint: chest pain This is a 51-year-old male with past medical history of AFib, asthma, diabetes, hypertension, anxiety, presents to the hospital with complaints of chest pain, discomfort in the chest area, patient reports symptoms started few hours prior to presentation, he was visiting his girlfriend in [facility] when he started having right-sided stabbing pain as well as a funny feeling in his chest. He denies any nausea, no vomiting, reports no headache or change in vision, no shortness of breath, no abdominal pain diarrhea. Patient reports a few days of diarrhea that started last week but resolved 2 days ago. He reports no fever or chills, no urinary symptoms and no lower extremity edema. On arrival to the ED patient was found in AFib with RVR, as well as hyperglycemic, when asked about medication compliance he reports that he has not been compliant with his Eliquis nor his metformin, he is a adamant that he has been taking the insulin. Clear that has not been taking any of his pills due to his living situation at this time. Labs are significant for WBC count of 12.8, INR of 0.9, creatinine of 1.45 with a baseline around 1, initial glucose of 500, UA negative, UDS positive for opioids, fentanyl, and marijuana. Troponin of 20, and BNP of 13 EKG shows AFib with RVR with a heart rate of 158 Multiple IV infusions of metoprolol, Cardizem with no affect, placed on Cardizem drip Review of Systems Review of Systems: Yes all other systems are reviewed and are negative [facility] Medical History Anxiety Arthritis Asthma Benign essential hypertension BPH (benign prostatic hyperplasia) Depression Diabetes Family history of thyroid disorder Insomnia Lumbar degenerative disc disease Morbid obesity with BMI of 40.0-44.9, adult Overactive bladder Primary osteoarthritis of both knees Seizure Substance abuse Type 2 diabetes mellitus with hyperglycemia Family History Father ETOH abuse Mother Diabetes Arthritis of knee Hypertension Other Mental health problem Substance abuse Surgical History No history of previous surgery Social History Household Members: Other Household Members Other:: room Housing: Other Housing Other:: Room Do you presently have visiting nurse or other home services: No Alcohol intake: current Alcohol intake frequency: holidays/special occasions o nly Patient Tobacco Use Status: Never used Tobacco Second Hand Smoke Exposure: Yes Use of substances other than those prescribed or required for medical reasons: Yes Substance Use Type: Crack/Cocaine, Heroin and Marijuana Last Used Substance: Hours (ago) Advance Directives: No Advance Directives Information Provided: No service: No Current occupational status: unemployed Cognitive needs: No Hearing needs: No Vision needs: No Meds Allergies Allergy/AdvReac Type Severity Reaction Status Date / Time Penicillins [PENICILLINS] Allergy Unknown RASH Verified 11/05/21 16:55 Active Medications: Current Medications Acetaminophen (Acetaminophen 325 Mg Tablet) 650 mg PO Q6H PRN PRN Reason: Pain, Mild (Pain Scale 1-3) Dextrose (Dextrose 50 % 25 Gm/50 Ml Syringe) 25 gm IVPUSH Q15M PRN; Protocol PRN Reason: per Hypoglycemia Standing Ord. Docusate Sodium (Docusate Sodium 100 Mg Capsule) 100 mg PO DAILY PRN PRN Reason: Constipation Glucose (Glucose Gel 15 Gm Gel..Gram.) 15 gm PO Q15M PRN; Protocol PRN Reason: per Hypoglycemia Standing Ord. Diltiazem HCl 125 mg/ Sodium (Chloride) 125 mls @ 0 mls/hr IVCONT .Q0M [facility]; Protocol Last Admin: 11/05/21 22:25 Dose: 10 mg/hr, 10 mls/hr Lactated Ringer's (Lr) 1,000 mls @ 999 mls/hr IV .Q1H1M [facility] Stop: 11/06/21 00:45 Insulin Human Lispro (Insulin Lispro 100 Unit/Ml 3 Ml Vial) 0 unit SUBCUT QIDACHS [facility]; Protocol Ondansetron HCl (Ondansetron Hcl 4 Mg/2 Ml Vial) 4 mg IVPUSH Q8H PRN PRN Reason: Nausea and Vomiting Pharmacy Consult (Consult Rx Perform Med Rec) 1 each MISCELLANE ONCE PRN PRN Reason: Consult order Sodium Chloride (0.9 % Sodium Chloride Flush 3 Ml Syringe) [address] [facility] Physical Exam Vital Signs and Narrative: Vital Signs: Last Vital Signs Temp 98.7 F 11/05/21 16:55 Pulse 115 H 11/05/21 20:32 Resp 19 11/05/21 20:32 BP 120/61 11/05/21 20:32 Pulse Ox 97 11/05/21 20:32 O2 Del Method 11/05/21 20:32 BMI result Body Mass Index 42.1 Const: General: cooperative and no acute distress Orientation/consciousness: patient oriented x3 Eyes: General: appearance normal, both eyes and all related structures Pupils: Equal, round and reactive pupils present Resp: Effort & Inspection: normal respiratory effort Auscultation: clear to auscultation bilaterally Cardio: Other: Irregular rhythm, tachycardic GI: Palpation (GI): Soft to palpation Auscultation: normal bowel sounds Skin: General skin exam: no rashes or lesions noted Neuro: General: patient oriented x3 Cranial nerves: Yes Equal, round and reactive pupils present Cognition (Neuro): normal cognition Extrem: General: Yes normal to inspection and Yes no pedal edema Results Labs CBC and Chem 7: 11/05/21 17:19 11/05/21 17:19 Labs: Laboratory Results - last 24 hr 11/05/21 11/05/21 11/05/21 17:19 17:19 17:19 MCV 85.6 MCH 29.5 MCHC 34.4 RDW 12.0 Plt Count 291 MPV 9.9 Immature Gran % (Auto) 0.4 Neut % (Auto) 68.4 Lymph % (Auto) 22.7 [place] % (Auto) 7.4 Eos % (Auto) 0.9 Baso % (Auto) 0.2 Lymph # (Auto) 2.9 [place] # (Auto) 1.0 Eos # (Auto) 0.1 Baso # (Auto) 0.0 Abs Immat Gran (auto) 0.05 H Absolute Neuts (auto) 8.8 H Absolute Nucleated RBC 0.000 Nucleated RBC % (auto) 0.0 PT 10.1 INR 0.9 APTT 28.0 Anion Gap 15 Estim Creat Clear Calc 87.1 Estimated GFR 52 POC Glucose Random Glucose 524 H* Calcium 9.3 Magnesium Total Bilirubin Direct Bilirubin AST ALT Alkaline Phosphatase B-Natriuretic Peptide Total Protein Albumin Lipase Urine Color Urine Appearance Urine pH Ur Specific [place] Urine Protein Urine Glucose (UA) Urine Ketones Urine Blood Urine Nitrite Ur Leukocyte Esterase Urine RBC Urine WBC Ur Squamous Epith Cells Urine Bacteria Hyaline Casts Urine Opiates Screen Urine Fentanyl Screen Ur Barbiturates Screen Ur Phencyclidine Scrn Ur Amphetamines Screen U Benzodiazepines Scrn Urine Cocaine Screen U Marijuana (THC) Screen COVID-19 (DG) COVID-19 Clin Com 11/05/21 11/05/21 11/05/21 17:19 17:19 17:19 MCV MCH MCHC RDW Plt Count MPV Immature Gran % (Auto) Neut % (Auto) Lymph % (Auto) [place] % (Auto) Eos % (Auto) Baso % (Auto) Lymph # (Auto) [place] # (Auto) Eos # (Auto) Baso # (Auto) Abs Immat Gran (auto) Absolute Neuts (auto) Absolute Nucleated RBC Nucleated RBC % (auto) PT INR APTT Anion Gap Estim Creat Clear Calc Estimated GFR POC Glucose Random Glucose Calcium Magnesium 2.0 Total Bilirubin 0.3 Direct Bilirubin < 0.2 AST 28 ALT 45 H Alkaline Phosphatase 131 H D B-Natriuretic Peptide 13 Total Protein 7.2 Albumin 4.3 Lipase 35 Urine Color Urine Appearance Urine pH Ur Specific [place] Urine Protein Urine Glucose (UA) Urine Ketones Urine Blood Urine Nitrite Ur Leukocyte Esterase Urine RBC Urine WBC Ur Squamous Epith Cells Urine Bacteria Hyaline Casts Urine Opiates Screen Urine Fentanyl Screen Ur Barbiturates Screen Ur Phencyclidine Scrn Ur Amphetamines Screen U Benzodiazepines Scrn Urine Cocaine Screen U Marijuana (THC) Screen COVID-19 (DG) Negative COVID-19 Clin Com See Note 11/05/21 11/05/21 11/05/21 17:46 17:46 21:12 MCV MCH MCHC RDW Plt Count MPV Immature Gran % (Auto) Neut % (Auto) Lymph % (Auto) [place] % (Auto) Eos % (Auto) Baso % (Auto) Lymph # (Auto) [place] # (Auto) Eos # (Auto) Baso # (Auto) Abs Immat Gran (auto) Absolute Neuts (auto) Absolute Nucleated RBC Nucleated RBC % (auto) PT INR APTT Anion Gap Estim Creat Clear Calc Estimated GFR POC Glucose 359 H* Random Glucose Calcium Magnesium Total Bilirubin Direct Bilirubin AST ALT Alkaline Phosphatase B-Natriuretic Peptide Total Protein Albumin Lipase Urine Color Yellow Urine Appearance Clear Urine pH 5.5 Ur Specific [place] >= 1.030 H Urine Protein Negative Urine Glucose (UA) >=1000 H Urine Ketones Negative Urine Blood Negative Urine Nitrite Negative Ur Leukocyte Esterase Negative Urine RBC 0-2 Urine WBC 0-5 Ur Squamous Epith Cells 0-2 Urine Bacteria None Seen Hyaline Casts 0-2 Urine Opiates Screen POSITIVE H Urine Fentanyl Screen POSITIVE H Ur Barbiturates Screen Not Detected Ur Phencyclidine Scrn Not Detected Ur Amphetamines Screen Not Detected U Benzodiazepines Scrn Not Detected Urine Cocaine Screen Not Detected U Marijuana (THC) Screen POSITIVE H COVID-19 (DG) COVID-19 Clin Com Imaging Radiologist's Impressions: Impressions Chest X-Ray 11/05/21 17:28 IMPRESSION: No radiographic evidence of acute cardiopulmonary disease. Assessment and Plan (1) Atrial fibrillation with RVR: Status: Acute (2) Substance abuse: Status: Acute (3) Hyperglycemia: Status: Acute (4) Noncompliance with medication regimen: Status: Acute Plan 51-year-old male with past medical history of AFib, hypertension, diabetes presents the hospital and found to have AFib with RVR # AFib with RVR - likely secondary to noncompliance - troponin 20, BNP negative - at this time will resume apixaban, metoprolol, - titrate Cardizem drip office tolerated - no evidence of infection at this time # hyperglycemia - secondary to diabetes - no DKA or HHS - noncompliant with pills including metformin - will resume his home insulin - place on low-dose sliding scale insulin - monitor glucose - diabetic diet # noncompliance of medication - this to being noncompliant with most of the pills he takes including apixaban as well as metformin - I discuss in detail the importance of taking his medication including and most importantly apixaban to reduce his chances of having a stroke and being debilitated lifelong - patient understands risk # hypertension - stable - continue home antihypertensives # chronic pain - continue home pain medications DVT prophylaxis: Apixaban Quality Stroke Does the patient have a stroke diagnosis?: No VTE Prior VTE?: No VTE Risk Level:: Medical - moderate - high VTE Device Contraindication: Treatment Not Indicated VTE Drug Contraindication: N/A - Med Ordered
[2021-11-06] VITALS (8 sets, daily range): BP systolic 111–167; BP diastolic 49–91; PULSE 67–111; RESP 14–20; TEMP 35.9–37.2; O2SAT 94–99
[2021-11-06] MEDS: Lactated Ringers 1,000 ML 999 ML IV (00:31)
[2021-11-06] MEDS: Insulin Glargine,Hum.rec.anlog 100 UNIT/ML 10 ML VIAL 30 UNIT SUBCUT ×2 (01:21→20:43)
[2021-11-06] MEDS: Apixaban 5 MG TABLET PO ×3 (01:23→20:42)
[2021-11-06 07:07] LABS: MANUAL DIFF FLAG NO
[2021-11-06 07:13] LABS: Basophils Percent Auto 0.4 % (0-2); Eosinophils Absolute Auto 0.1 X10*3/uL (0.0-0.4); Eosinophils Percent Auto 1.4 % (0-4); Hematocrit 40.2 % (42.0-52.0); Hemoglobin 13.7 g/dl (14.0-18.0); Imm Gran Abs Auto 0.04 X10*3/uL (0.00-0.03); Imm Gran Pct Auto 0.5 % (0.0-0.4); Lymphocytes Absolute Auto 2.9 X10*3/uL (1.2-4.9); Lymphocytes Percent Auto 35.9 % (20-40); Mean Corpuscular HGB Conc 34.1 g/dl (31.0-36.0); Mean Corpuscular Hemoglobin 29.5 pg (27.0-33.0); Mean Corpuscular Volume 86.6 fL (80.0-98.0); Mean Platelet Volume 10.1 fL (9.4-12.4); Monocytes Absolute Auto 0.6 X10*3/uL (0.1-1.2); Monocytes Percent Auto 7.8 % (2-11); Neutrophils Absolute Auto 4.4 x10*3/uL (2.0-8.3); Platelet Count 254 X10*3/uL (160-400); Red Blood Count 4.64 X10*6/uL (4.60-5.80); White Blood Count 8.1 X10*3/uL (4.8-10.8)
--- NOTE | 2021-11-06 07:32 | PHA.MEDREC ---
Pharmacy Consult ? Medication Reconciliation RN has completed the medication reconciliation, pharmacy reviewed.
[2021-11-06 07:37] LABS: Anion Gap 13 (12-20); Blood Urea Nitrogen 15 mg/dL (9-16); Carbon Dioxide 28 mmol/L (22-29); Chloride 99 mmol/L (96-108); Creatinine Clr Calc Pharmacy 128.9; Estimated Glomerular Filt Rate > 60; Glucose Random 342 mg/dL (60-115); Potassium 4.1 mmol/L (3.3-5.1); Sodium 136 mmol/L (135-145)
[2021-11-06 07:57] LABS: Thyroid Stimulating Hormone 1.34 uIU/mL (0.32-4.0)
[2021-11-06 07:57] LABS: Glucose, Whole Blood 359 mg/dL (60-115)
[2021-11-06 08:14] LABS: Estimated Average Glucose 237 mg/dL; Hemoglobin A1c % 9.9 %
[2021-11-06] MEDS: Insulin Lispro 100 UNIT/ML 3 ML VIAL SUBCUT ×4 (08:37→20:43)
[2021-11-06] MEDS: lisinopriL 10 MG TABLET 30 MG PO (08:51)
[2021-11-06] MEDS: 0.9 % Sodium Chloride Flush 3 ML SYRINGE IVFLUSH ×2 (08:51→15:07)
[2021-11-06] MEDS: Metoprolol Tartrate 100 MG TABLET PO ×2 (08:51→20:42)
[2021-11-06] MEDS: Tamsulosin HCL 0.4 MG CAPSULE PO (08:51)
[2021-11-06] MEDS: busPIRone HCl 10 MG TABLET 30 MG PO ×3 (08:51→20:42)
[2021-11-06] MEDS: Escitalopram Oxalate 20 MG TABLET PO (08:51)
[2021-11-06] MEDS: Clotrimazole 1 % Cream 15 GM TUBE 1 APPL TOPICAL ×3 (09:40→20:41)
--- NOTE | 2021-11-06 11:19 | P.PNIM_ITS ---
Subjective Subjective Date of Service: 11/06/21 Interval History: converted to NSR this AM, feels much better, chest pain + palpitations was scared to take various meds due to things he saw on TV- bleeding from Eliquis, etc.' interested in Suboxone Review of Systems Review of Systems: Yes all other systems are reviewed and are negative Physical Exam Vital Signs: Vital Signs: Last Vital Signs Temp 98.6 F 11/06/21 08:00 Pulse 103 H 11/06/21 08:00 Resp 20 11/06/21 08:00 BP 140/82 H 11/06/21 08:00 Pulse Ox 97 11/06/21 08:00 O2 Del Method 11/06/21 08:00 BMI result Body Mass Index 42.1 Gen: in no acute distress HEENT: sclera anicteric, moist mucus membranes Neck: supple Lungs: clear to auscultation bilaterally Heart: regular rate and rhythm, no murmurs Abd: soft, non-tender, non-distended, obese Ext: no edema Skin: warm/well-perfused Neuro: alert and oriented x3, no focal findings Psych: appropriate affect Objective Data Active Medications Acetaminophen (Acetaminophen 325 Mg Tablet) 650 mg PO Q6H PRN PRN Reason: Pain, Mild (Pain Scale 1-3) Albuterol Sulfate (Albuterol Sulfate 90 Mcg 8 Gm Inhaler) 2 puff INHALE Q8H PRN PRN Reason: shortness of breath or wheezing Apixaban (Apixaban 5 Mg Tablet) 5 mg PO BID [facility] Last Admin: 11/06/21 08:51 Dose: 5 mg Documented By: SABRINA Buspirone HCl (Buspirone Hcl 10 Mg Tablet) 30 mg PO TID [facility] Last Admin: 11/06/21 08:51 Dose: 30 mg Documented By: SABRINA Clotrimazole (Clotrimazole 1 % Cream 15 Gm Tube) 1 appl TOPICAL TID [facility]; Protocol Last Admin: 11/06/21 09:40 Dose: 1 appl Documented By: SABRINA Dextrose (Dextrose 50 % 25 Gm/50 Ml Syringe) 25 gm IVPUSH Q15M PRN; Protocol PRN Reason: per Hypoglycemia Standing Ord. Docusate Sodium (Docusate Sodium 100 Mg Capsule) 100 mg PO DAILY PRN PRN Reason: Constipation Escitalopram Oxalate (Escitalopram Oxalate 20 Mg Tablet) 20 mg PO DAILY [facility] Last Admin: 11/06/21 08:51 Dose: 20 mg Documented By: SABRINA Glucose (Glucose Gel 15 Gm Gel..Gram.) 15 gm PO Q15M PRN; Protocol PRN Reason: per Hypoglycemia Standing Ord. Hydroxyzine HCl (Hydroxyzine Hcl 25 Mg Tablet) 25 mg PO TID PRN PRN Reason: for anxiety Diltiazem HCl 125 mg/ Sodium (Chloride) 125 mls @ 0 mls/hr IVCONT .Q0M [facility]; Protocol Last Titration: 11/06/21 09:41 Dose: 0 mg/hr, 0 mls/hr Documented By: SABRINA Insulin Glargine (Insulin Glargine,Hum.Rec.Anlog 100 Unit/Ml 10 Ml Vial) 30 unit SUBCUT BEDTIME [facility] Insulin Human Lispro (Insulin Lispro 100 Unit/Ml 3 Ml Vial) 0 unit SUBCUT QIDACHS [facility]; Protocol Last Admin: 11/06/21 08:37 Dose: 10 unit Documented By: SABRINA Lidocaine (Lidocaine 4 % Patch Adh..Patch) 2 patch TRANSDERMA DAILY PRN PRN Reason: pain Lisinopril (Lisinopril 10 Mg Tablet) 30 mg PO DAILY [facility]; Protocol Last Admin: 11/06/21 08:51 Dose: 30 mg Documented By: SABRINA Loratadine (Loratadine 10 Mg Tablet) 10 mg PO DAILY PRN PRN Reason: allergy symptoms Metoprolol Tartrate (Metoprolol Tartrate 100 Mg Tablet) 100 mg PO BID [facility]; Protocol Last Admin: 11/06/21 08:51 Dose: 100 mg Documented By: SABRINA Ondansetron HCl (Ondansetron Hcl 4 Mg/2 Ml Vial) 4 mg IVPUSH Q8H PRN PRN Reason: Nausea and Vomiting Pharmacy Consult (Consult Rx Perform Med Rec) 1 each MISCELLANE ONCE PRN PRN Reason: Consult order Quetiapine Fumarate (Quetiapine Fumarate 50 Mg Tablet) 50 mg PO BEDTIME [facility] Sodium Chloride (0.9 % Sodium Chloride Flush 3 Ml Syringe) 3 ml IVFLUSH QSHIFT [facility] Last Admin: 11/06/21 08:51 Dose: 3 ml Documented By: SABRINA Tamsulosin HCl (Tamsulosin Hcl 0.4 Mg Capsule) 0.4 mg PO DAILY [facility] Last Admin: 11/06/21 08:51 Dose: 0.4 mg Documented By: SABRINA Tizanidine HCl (Tizanidine Hcl 4 Mg Tablet) 4 mg PO Q8H PRN PRN Reason: muscle spasticity Tramadol HCl (Tramadol Hcl 50 Mg Tablet) 50 mg PO TID PRN PRN Reason: Pain, Mild (Pain Scale 1-3) Zolpidem Tartrate (Zolpidem Tartrate 5 Mg Tablet) 5 mg PO BEDTIME PRN PRN Reason: insomnia Labs CBC & Chem 7: 11/06/21 06:58 11/06/21 06:58 Labs: Laboratory Results - last 24 hr 11/05/21 11/05/21 11/05/21 17:19 17:19 17:19 MCV 85.6 MCH 29.5 MCHC 34.4 RDW 12.0 Plt Count 291 MPV 9.9 Immature Gran % (Auto) 0.4 Neut % (Auto) 68.4 Lymph % (Auto) 22.7 [place] % (Auto) 7.4 Eos % (Auto) 0.9 Baso % (Auto) 0.2 Lymph # (Auto) 2.9 [place] # (Auto) 1.0 Eos # (Auto) 0.1 Baso # (Auto) 0.0 Abs Immat Gran (auto) 0.05 H Absolute Neuts (auto) 8.8 H Absolute Nucleated RBC 0.000 Nucleated RBC % (auto) 0.0 PT 10.1 INR 0.9 APTT 28.0 Anion Gap 15 Estim Creat Clear Calc 87.1 Estimated GFR 52 POC Glucose Random Glucose 524 H* Estimat Average Glucose Hemoglobin A1c % Calcium 9.3 Magnesium Total Bilirubin Direct Bilirubin AST ALT Alkaline Phosphatase B-Natriuretic Peptide Total Protein Albumin Lipase TSH Urine Color Urine Appearance Urine pH Ur Specific [place] Urine Protein Urine Glucose (UA) Urine Ketones Urine Blood Urine Nitrite Ur Leukocyte Esterase Urine RBC Urine WBC Ur Squamous Epith Cells Urine Bacteria Hyaline Casts Urine Opiates Screen Urine Fentanyl Screen Ur Barbiturates Screen Ur Phencyclidine Scrn Ur Amphetamines Screen U Benzodiazepines Scrn Urine Cocaine Screen U Marijuana (THC) Screen COVID-19 (DG) COVID-19 Clin Com 11/05/21 11/05/21 11/05/21 17:19 17:19 17:19 MCV MCH MCHC RDW Plt Count MPV Immature Gran % (Auto) Neut % (Auto) Lymph % (Auto) [place] % (Auto) Eos % (Auto) Baso % (Auto) Lymph # (Auto) [place] # (Auto) Eos # (Auto) Baso # (Auto) Abs Immat Gran (auto) Absolute Neuts (auto) Absolute Nucleated RBC Nucleated RBC % (auto) PT INR APTT Anion Gap Estim Creat Clear Calc Estimated GFR POC Glucose Random Glucose Estimat Average Glucose Hemoglobin A1c % Calcium Magnesium 2.0 Total Bilirubin 0.3 Direct Bilirubin < 0.2 AST 28 ALT 45 H Alkaline Phosphatase 131 H D B-Natriuretic Peptide 13 Total Protein 7.2 Albumin 4.3 Lipase 35 TSH Urine Color Urine Appearance Urine pH Ur Specific [place] Urine Protein Urine Glucose (UA) Urine Ketones Urine Blood Urine Nitrite Ur Leukocyte Esterase Urine RBC Urine WBC Ur Squamous Epith Cells Urine Bacteria Hyaline Casts Urine Opiates Screen Urine Fentanyl Screen Ur Barbiturates Screen Ur Phencyclidine Scrn Ur Amphetamines Screen U Benzodiazepines Scrn Urine Cocaine Screen U Marijuana (THC) Screen COVID-19 (DG) Negative COVID-19 Clin Com See Note 11/05/21 11/05/21 11/05/21 17:46 17:46 21:12 MCV MCH MCHC RDW Plt Count MPV Immature Gran % (Auto) Neut % (Auto) Lymph % (Auto) [place] % (Auto) Eos % (Auto) Baso % (Auto) Lymph # (Auto) [place] # (Auto) Eos # (Auto) Baso # (Auto) Abs Immat Gran (auto) Absolute Neuts (auto) Absolute Nucleated RBC Nucleated RBC % (auto) PT INR APTT Anion Gap Estim Creat Clear Calc Estimated GFR POC Glucose 359 H* Random Glucose Estimat Average Glucose Hemoglobin A1c % Calcium Magnesium Total Bilirubin Direct Bilirubin AST ALT Alkaline Phosphatase B-Natriuretic Peptide Total Protein Albumin Lipase TSH Urine Color Yellow Urine Appearance Clear Urine pH 5.5 Ur Specific [place] >= 1.030 H Urine Protein Negative Urine Glucose (UA) >=1000 H Urine Ketones Negative Urine Blood Negative Urine Nitrite Negative Ur Leukocyte Esterase Negative Urine RBC 0-2 Urine WBC 0-5 Ur Squamous Epith Cells 0-2 Urine Bacteria None Seen Hyaline Casts 0-2 Urine Opiates Screen POSITIVE H Urine Fentanyl Screen POSITIVE H Ur Barbiturates Screen Not Detected Ur Phencyclidine Scrn Not Detected Ur Amphetamines Screen Not Detected U Benzodiazepines Scrn Not Detected Urine Cocaine Screen Not Detected U Marijuana (THC) Screen POSITIVE H COVID-19 (DG) COVID-19 [place] Com 11/06/21 11/06/21 11/06/21 06:58 06:58 06:58 MCV 86.6 MCH 29.5 MCHC 34.1 RDW 12.0 Plt Count 254 MPV 10.1 Immature Gran % (Auto) 0.5 H Neut % (Auto) 54.0 Lymph % (Auto) 35.9 [place] % (Auto) 7.8 Eos % (Auto) 1.4 Baso % (Auto) 0.4 Lymph # (Auto) 2.9 [place] # (Auto) 0.6 Eos # (Auto) 0.1 Baso # (Auto) 0.0 Abs Immat Gran (auto) 0.04 H Absolute Neuts (auto) 4.4 Absolute Nucleated RBC 0.000 Nucleated RBC % (auto) 0.0 PT INR APTT Anion Gap 13 Estim Creat Clear Calc 128.9 Estimated GFR > 60 POC Glucose Random Glucose 342 H Estimat Average Glucose Hemoglobin A1c % Calcium 9.0 Magnesium 2.0 Total Bilirubin Direct Bilirubin AST ALT Alkaline Phosphatase B-Natriuretic Peptide Total Protein Albumin Lipase TSH 1.34 Urine Color Urine Appearance Urine pH Ur Specific [place] Urine Protein Urine Glucose (UA) Urine Ketones Urine Blood Urine Nitrite Ur Leukocyte Esterase Urine RBC Urine WBC Ur Squamous Epith Cells Urine Bacteria Hyaline Casts Urine Opiates Screen Urine Fentanyl Screen Ur Barbiturates Screen Ur Phencyclidine Scrn Ur Amphetamines Screen U Benzodiazepines Scrn Urine Cocaine Screen U Marijuana (THC) Screen COVID-19 (DG) COVID-19 [place] Com 11/06/21 11/06/21 06:58 07:47 MCV MCH MCHC RDW Plt Count MPV Immature Gran % (Auto) Neut % (Auto) Lymph % (Auto) [place] % (Auto) Eos % (Auto) Baso % (Auto) Lymph # (Auto) [place] # (Auto) Eos # (Auto) Baso # (Auto) Abs Immat Gran (auto) Absolute Neuts (auto) Absolute Nucleated RBC Nucleated RBC % (auto) PT INR APTT Anion Gap Estim Creat Clear Calc Estimated GFR POC Glucose 359 H* Random Glucose Estimat Average Glucose 237 Hemoglobin A1c % 9.9 Calcium Magnesium Total Bilirubin Direct Bilirubin AST ALT Alkaline Phosphatase B-Natriuretic Peptide Total Protein Albumin Lipase TSH Urine Color Urine Appearance Urine pH Ur Specific [place] Urine Protein Urine Glucose (UA) Urine Ketones Urine Blood Urine Nitrite Ur Leukocyte Esterase Urine RBC Urine WBC Ur Squamous Epith Cells Urine Bacteria Hyaline Casts Urine Opiates Screen Urine Fentanyl Screen Ur Barbiturates Screen Ur Phencyclidine Scrn Ur Amphetamines Screen U Benzodiazepines Scrn Urine Cocaine Screen U Marijuana (THC) Screen COVID-19 (DG) COVID-19 Clin Com Assessment and Plan (1) Atrial fibrillation with RVR: Status: Acute (2) Noncompliance with medication regimen: Status: Acute (3) Hyperglycemia: Status: Acute Plan hospital d#2 51yo M with AF, HTN, DM2, substance abuse, noncompliance admitted for AF/RVR # AF/RVR - due to noncompliance; just converted to NSR, turn off diltiazem gtt, continue metoprolol, continue apixaban, TTE # HTN - resume amlodipine, continue metoprolol + lisinopril # DM2 with hyperglycemia, A1c 9.9 - continue Lantus, increase Humalog # noncompliance - counseled # opioid use disorder - Addiction Medicine consultation # mood disorder - continue buspirone, escitalopram, hydroxyzine, quetiapine, zolpidem # VTE ppx: apixaban # dispo: possibly home tomorrow if heart rate controlled In my clinical judgment, the patient requires continued hospitalization for the following reasons: monitoring for recurrence of RVR Quality Stroke Does the patient have a stroke diagnosis?: No VTE Prior VTE?: No VTE Risk Level:: Medical - moderate - high VTE Device Contraindication: Treatment Not Indicated VTE Drug Contraindication: N/A - Med Ordered
--- NOTE | 2021-11-06 11:21 | P.CNPS_ITS ---
History of Present Illness Date of Service: 11/06/2021 Chief Complaint: A fib W RVR marijuana on opiate use Reason for Consult: Recommendations for opiate use Requesting physician: Neo Yepez Discussed with referring provider: Yes Sources of Information: patient interviewed and chart reviewed HPI Narrative: Herman is a 51-year-old, , self-employed ([place]), father of 5, possibly 7. Yesterday he states that he smokes some marijuana given to him by somebody which may have been laced with heroin or fentanyl while walking to visit his girlfriend on the behavioral health unit in this hospital. While there he started sweating and having a stabbing chest pain. He was evaluated and hospitalized on the intermediate care unit for atrial fibrillation. He does have multiple medical problems including diabetes, asthma, atrial fibrillation. He also has a psychiatric diagnosis and problems with anxiety and depression and is seen and followed at [facility]. Currently he is on BuSpar, Seroquel, Ambien. He states that he has history of marijuana use and and intermittent use of heroin. He states that when he has the money he may use a bundle every 2 or 3 days. He has been using up to recently. In 2014 while in [place] he was on Suboxone for 6 months and was able to stay opiate free. Since he moved to [place] in 2018 he has not been on Suboxone and has been using heroin intermittently and when able to financially. He does get some withdrawal symptoms when not using. He has had no hospitalizations because of this. In 2020 after a break-up with a girlfriend he was hospitalized psychiatrically for suicidal ideations. He denies any history of attempts. No other substance use or abuse. Past Psychiatric History: Outpatient and 1 inpatient hospitalization Medical Evaluation Reviewed: Yes Personal & Social History: Herman is the only child from his biological parents. His father is and his mother's living in [place]. He came to [facility] in 1996 and was in [place] until is moved to [place] in 2018. He has 5 children from 3 different women and possibly to others. Currently he lives alone and works as a [place]. Review of Systems Review of Systems Yes all other systems are reviewed and are negative [facility] Medical History Anxiety Arthritis Asthma Benign essential hypertension BPH (benign prostatic hyperplasia) Depression Diabetes Family history of thyroid disorder Insomnia Lumbar degenerative disc disease Morbid obesity with BMI of 40.0-44.9, adult Overactive bladder Primary osteoarthritis of both knees Seizure Substance abuse Type 2 diabetes mellitus with hyperglycemia Surgical History No history of previous surgery Substance History: Marijuana use daily and heroin use 1 to 3 times a week Trauma History: Denied Diagnostics Vital Signs (24Hr): Vital Signs - 24 hr 11/05/21 16:55 11/05/21 17:28 11/05/21 18:12 Temperature 98.7 F Pulse Rate 104 H 162 H 145 H Respiratory Rate 20 15 17 Blood Pressure 153/104 H 151/102 H 160/88 H Pulse Oximetry 96 99 Oxygen Delivery Method Room Air Room Air 11/05/21 18:37 11/05/21 18:41 11/05/21 18:37 Temperature Pulse Rate 143 H 135 H 143 H Respiratory Rate 22 H 16 15 Blood Pressure 134/74 116/38 L 134/74 Pulse Oximetry Oxygen Delivery Method 11/05/21 20:32 11/05/21 20:00 11/06/21 00:12 Temperature Pulse Rate 115 H 133 H 111 H Respiratory Rate 19 17 15 Blood Pressure 120/61 141/54 H 133/67 Pulse Oximetry 97 98 98 Oxygen Delivery Method Room Air Room Air Room Air 11/06/21 01:25 11/06/21 04:00 11/06/21 08:00 Temperature 97.8 F 98.6 F Pulse Rate 101 H 95 103 H Respiratory Rate 14 16 20 Blood Pressure 130/57 L 135/57 L 140/82 H Pulse Oximetry 99 98 97 Oxygen Delivery Method Room Air Room Air Room Air BMI result Body Mass Index 42.1 Labs Results: 11/06/21 06:58 11/06/21 06:58 Labs: Laboratory Results - last 48 hr 11/05/21 11/05/21 11/05/21 17:19 17:19 17:19 WBC 12.8 H RBC 4.99 Hgb 14.7 Hct 42.7 MCV 85.6 MCH 29.5 MCHC 34.4 RDW 12.0 Plt Count 291 MPV 9.9 Immature Gran % (Auto) 0.4 Neut % (Auto) 68.4 Lymph % (Auto) 22.7 Greenlee % (Auto) 7.4 Eos % (Auto) 0.9 Baso % (Auto) 0.2 Lymph # (Auto) 2.9 Greenlee # (Auto) 1.0 Eos # (Auto) 0.1 Baso # (Auto) 0.0 Abs Immat Gran (auto) 0.05 H Absolute Neuts (auto) 8.8 H Absolute Nucleated RBC 0.000 Nucleated RBC % (auto) 0.0 PT 10.1 INR 0.9 APTT 28.0 Sodium 135 Potassium 4.9 Chloride 96 Carbon Dioxide 29 Anion Gap 15 BUN 16 Creatinine 1.45 H Estim Creat Clear Calc 87.1 Estimated GFR 52 POC Glucose Random Glucose 524 H* Estimat Average Glucose Hemoglobin A1c % Calcium 9.3 Magnesium Total Bilirubin Direct Bilirubin AST ALT Alkaline Phosphatase Troponin I High Sens B-Natriuretic Peptide Total Protein Albumin Lipase TSH Urine Color Urine Appearance Urine pH Ur Specific Fernley Urine Protein Urine Glucose (UA) Urine Ketones Urine Blood Urine Nitrite Ur Leukocyte Esterase Urine RBC Urine WBC Ur Squamous Epith Cells Urine Bacteria Hyaline Casts Urine Opiates Screen Urine Fentanyl Screen Ur Barbiturates Screen Ur Phencyclidine Scrn Ur Amphetamines Screen U Benzodiazepines Scrn Urine Cocaine Screen U Marijuana (THC) Screen COVID-19 (DG) COVID-19 Clin Com 11/05/21 11/05/21 11/05/21 17:19 17:19 17:19 WBC RBC Hgb Hct MCV MCH MCHC RDW Plt Count MPV Immature Gran % (Auto) Neut % (Auto) Lymph % (Auto) Greenlee % (Auto) Eos % (Auto) Baso % (Auto) Lymph # (Auto) Greenlee # (Auto) Eos # (Auto) Baso # (Auto) Abs Immat Gran (auto) Absolute Neuts (auto) Absolute Nucleated RBC Nucleated RBC % (auto) PT INR APTT Sodium Potassium Chloride Carbon Dioxide Anion Gap BUN Creatinine Estim Creat Clear Calc Estimated GFR POC Glucose Random Glucose Estimat Average Glucose Hemoglobin A1c % Calcium Magnesium 2.0 Total Bilirubin 0.3 Direct Bilirubin < 0.2 AST 28 ALT 45 H Alkaline Phosphatase 131 H D Troponin I High Sens B-Natriuretic Peptide 13 Total Protein 7.2 Albumin 4.3 Lipase 35 TSH Urine Color Urine Appearance Urine pH Ur Specific Fernley Urine Protein Urine Glucose (UA) Urine Ketones Urine Blood Urine Nitrite Ur Leukocyte Esterase Urine RBC Urine WBC Ur Squamous Epith Cells Urine Bacteria Hyaline Casts Urine Opiates Screen Urine Fentanyl Screen Ur Barbiturates Screen Ur Phencyclidine Scrn Ur Amphetamines Screen U Benzodiazepines Scrn Urine Cocaine Screen U Marijuana (THC) Screen COVID-19 (DG) Negative COVID-19 ICONIC Com See Note 11/05/21 11/05/21 11/05/21 17:22 17:46 17:46 WBC RBC Hgb Hct MCV MCH MCHC RDW Plt Count MPV Immature Gran % (Auto) Neut % (Auto) Lymph % (Auto) Greenlee % (Auto) Eos % (Auto) Baso % (Auto) Lymph # (Auto) Greenlee # (Auto) Eos # (Auto) Baso # (Auto) Abs Immat Gran (auto) Absolute Neuts (auto) Absolute Nucleated RBC Nucleated RBC % (auto) PT INR APTT Sodium Potassium Chloride Carbon Dioxide Anion Gap BUN Creatinine Estim Creat Clear Calc Estimated GFR POC Glucose Random Glucose Estimat Average Glucose Hemoglobin A1c % Calcium Magnesium Total Bilirubin Direct Bilirubin AST ALT Alkaline Phosphatase Troponin I High Sens 20.0 B-Natriuretic Peptide Total Protein Albumin Lipase TSH Urine Color Yellow Urine Appearance Clear Urine pH 5.5 Ur Specific Fernley >= 1.030 H Urine Protein Negative Urine Glucose (UA) >=1000 H Urine Ketones Negative Urine Blood Negative Urine Nitrite Negative Ur Leukocyte Esterase Negative Urine RBC 0-2 Urine WBC 0-5 Ur Squamous Epith Cells 0-2 Urine Bacteria None Seen Hyaline Casts 0-2 Urine Opiates Screen POSITIVE H Urine Fentanyl Screen POSITIVE H Ur Barbiturates Screen Not Detected Ur Phencyclidine Scrn Not Detected Ur Amphetamines Screen Not Detected U Benzodiazepines Scrn Not Detected Urine Cocaine Screen Not Detected U Marijuana (THC) Screen POSITIVE H COVID-19 (DG) COVID-19 ICONIC Com 11/05/21 11/06/21 11/06/21 21:12 06:58 06:58 WBC 8.1 RBC 4.64 Hgb 13.7 L Hct 40.2 L MCV 86.6 MCH 29.5 MCHC 34.1 RDW 12.0 Plt Count 254 MPV 10.1 Immature Gran % (Auto) 0.5 H Neut % (Auto) 54.0 Lymph % (Auto) 35.9 Greenlee % (Auto) 7.8 Eos % (Auto) 1.4 Baso % (Auto) 0.4 Lymph # (Auto) 2.9 Greenlee # (Auto) 0.6 Eos # (Auto) 0.1 Baso # (Auto) 0.0 Abs Immat Gran (auto) 0.04 H Absolute Neuts (auto) 4.4 Absolute Nucleated RBC 0.000 Nucleated RBC % (auto) 0.0 PT INR APTT Sodium 136 Potassium 4.1 Chloride 99 Carbon Dioxide 28 Anion Gap 13 BUN 15 Creatinine 0.98 Estim Creat Clear Calc 128.9 Estimated GFR > 60 POC Glucose 359 H* Random Glucose 342 H Estimat Average Glucose Hemoglobin A1c % Calcium 9.0 Magnesium 2.0 Total Bilirubin Direct Bilirubin AST ALT Alkaline Phosphatase Troponin I High Sens B-Natriuretic Peptide Total Protein Albumin Lipase TSH Urine Color Urine Appearance Urine pH Ur Specific Fernley Urine Protein Urine Glucose (UA) Urine Ketones Urine Blood Urine Nitrite Ur Leukocyte Esterase Urine RBC Urine WBC Ur Squamous Epith Cells Urine Bacteria Hyaline Casts Urine Opiates Screen Urine Fentanyl Screen Ur Barbiturates Screen Ur Phencyclidine Scrn Ur Amphetamines Screen U Benzodiazepines Scrn Urine Cocaine Screen U Marijuana (THC) Screen COVID-19 (DG) COVID-19 ICONIC Com 11/06/21 11/06/21 11/06/21 06:58 06:58 07:47 WBC RBC Hgb Hct MCV MCH MCHC RDW Plt Count MPV Immature Gran % (Auto) Neut % (Auto) Lymph % (Auto) Greenlee % (Auto) Eos % (Auto) Baso % (Auto) Lymph # (Auto) Greenlee # (Auto) Eos # (Auto) Baso # (Auto) Abs Immat Gran (auto) Absolute Neuts (auto) Absolute Nucleated RBC Nucleated RBC % (auto) PT INR APTT Sodium Potassium Chloride Carbon Dioxide Anion Gap BUN Creatinine Estim Creat Clear Calc Estimated GFR POC Glucose 359 H* Random Glucose Estimat Average Glucose 237 Hemoglobin A1c % 9.9 Calcium Magnesium Total Bilirubin Direct Bilirubin AST ALT Alkaline Phosphatase Troponin I High Sens B-Natriuretic Peptide Total Protein Albumin Lipase TSH 1.34 Urine Color Urine Appearance Urine pH Ur Specific Fernley Urine Protein Urine Glucose (UA) Urine Ketones Urine Blood Urine Nitrite Ur Leukocyte Esterase Urine RBC Urine WBC Ur Squamous Epith Cells Urine Bacteria Hyaline Casts Urine Opiates Screen Urine Fentanyl Screen Ur Barbiturates Screen Ur Phencyclidine Scrn Ur Amphetamines Screen U Benzodiazepines Scrn Urine Cocaine Screen U Marijuana (THC) Screen COVID-19 (DG) COVID-19 Clin Com Imaging Radiology Impressions: ITS Impressions Chest X-Ray 11/05/21 17:28 IMPRESSION: No radiographic evidence of acute cardiopulmonary disease. Mental Status Exam Mental Status Exam Narrative: In today's visit he was seen in his room, sitting comfortably in a chair. Speech is normal. Moderate eye contact. Affect is appropriate and tense. Moderate anxiety present. No signs of depression. He denies any suicidal or homicidal ideations. No signs of psychosis. Cognitively is intact. Judgment is intact Medications Medications Current Medications Acetaminophen (Acetaminophen 325 Mg Tablet) 650 mg PO Q6H PRN PRN Reason: Pain, Mild (Pain Scale 1-3) Albuterol Sulfate (Albuterol Sulfate 90 Mcg 8 Gm Inhaler) 2 puff INHALE Q8H PRN PRN Reason: shortness of breath or wheezing Apixaban (Apixaban 5 Mg Tablet) 5 mg PO BID [facility] Last Admin: 11/06/21 08:51 Dose: 5 mg Buspirone HCl (Buspirone Hcl 10 Mg Tablet) 30 mg PO TID [facility] Last Admin: 11/06/21 08:51 Dose: 30 mg Clotrimazole (Clotrimazole 1 % Cream 15 Gm Tube) 1 appl TOPICAL TID [facility]; Protocol Last Admin: 11/06/21 09:40 Dose: 1 appl Dextrose (Dextrose 50 % 25 Gm/50 Ml Syringe) 25 gm IVPUSH Q15M PRN; Protocol PRN Reason: per Hypoglycemia Standing Ord. Docusate Sodium (Docusate Sodium 100 Mg Capsule) 100 mg PO DAILY PRN PRN Reason: Constipation Escitalopram Oxalate (Escitalopram Oxalate 20 Mg Tablet) 20 mg PO DAILY [facility] Last Admin: 11/06/21 08:51 Dose: 20 mg Glucose (Glucose Gel 15 Gm Gel..Gram.) 15 gm PO Q15M PRN; Protocol PRN Reason: per Hypoglycemia Standing Ord. Hydroxyzine HCl (Hydroxyzine Hcl 25 Mg Tablet) 25 mg PO TID PRN PRN Reason: for anxiety Diltiazem HCl 125 mg/ Sodium (Chloride) 125 mls @ 0 mls/hr IVCONT .Q0M [facility]; Protocol Last Titration: 11/06/21 09:41 Dose: 0 mg/hr, 0 mls/hr Insulin Glargine (Insulin Glargine,Hum.Rec.Anlog 100 Unit/Ml 10 Ml Vial) 30 unit SUBCUT BEDTIME [facility] Insulin Human Lispro (Insulin Lispro 100 Unit/Ml 3 Ml Vial) 0 unit SUBCUT QIDACHS [facility]; Protocol Last Admin: 11/06/21 08:37 Dose: 10 unit Lidocaine (Lidocaine 4 % Patch Adh..Patch) 2 patch TRANSDERMA DAILY PRN PRN Reason: pain Lisinopril (Lisinopril 10 Mg Tablet) 30 mg PO DAILY [facility]; Protocol Last Admin: 11/06/21 08:51 Dose: 30 mg Loratadine (Loratadine 10 Mg Tablet) 10 mg PO DAILY PRN PRN Reason: allergy symptoms Metoprolol Tartrate (Metoprolol Tartrate 100 Mg Tablet) 100 mg PO BID [facility]; Protocol Last Admin: 11/06/21 08:51 Dose: 100 mg Ondansetron HCl (Ondansetron Hcl 4 Mg/2 Ml Vial) 4 mg IVPUSH Q8H PRN PRN Reason: Nausea and Vomiting Pharmacy Consult (Consult Rx Perform Med Rec) 1 each MISCELLANE ONCE PRN PRN Reason: Consult order Quetiapine Fumarate (Quetiapine Fumarate 50 Mg Tablet) 50 mg PO BEDTIME [facility] Sodium Chloride (0.9 % Sodium Chloride Flush 3 Ml Syringe) 3 ml IVFLUSH QSHIFT [facility] Last Admin: 11/06/21 08:51 Dose: 3 ml Tamsulosin HCl (Tamsulosin Hcl 0.4 Mg Capsule) 0.4 mg PO DAILY [facility] Last Admin: 11/06/21 08:51 Dose: 0.4 mg Tizanidine HCl (Tizanidine Hcl 4 Mg Tablet) 4 mg PO Q8H PRN PRN Reason: muscle spasticity Tramadol HCl (Tramadol Hcl 50 Mg Tablet) 50 mg PO TID PRN PRN Reason: Pain, Mild (Pain Scale 1-3) Zolpidem Tartrate (Zolpidem Tartrate 5 Mg Tablet) 5 mg PO BEDTIME PRN PRN Reason: insomnia Allergies Allergies Allergy/AdvReac Type Severity Reaction Status Date / Time Penicillins [PENICILLINS] Allergy Unknown RASH Verified 11/05/21 16:55 Assessment & Plan Assessment & Plan (1) Substance abuse: Status: Acute Code(s): F19.10 - Other psychoactive substance abuse, uncomplicated Plan Based on the evaluation today and previous response to Suboxone I would suggest referring him to a Suboxone clinic after discharge to resume Suboxone, on which he did very well. He will continue his counseling at [facility] I spent minutes with the patient and/or on the patient floor today, great er than?50% of which was spent counseling/coordinating care. Patient educated on: diagnosis, medication risk/benefits, substance abuse and therapeutic strategies
[2021-11-06 11:50] LABS: Glucose, Whole Blood 291 mg/dL (60-115)
[2021-11-06] MEDS: amLODIPine Besylate 5 MG TABLET PO (12:30)
[2021-11-06 16:15] LABS: Glucose, Whole Blood 236 mg/dL (60-115)
[2021-11-06] MEDS: hydrOXYzine HCL 25 MG TABLET PO (17:03)
[2021-11-06] MEDS: cloNIDine HCL 0.1 MG TABLET PO ×2 (17:03→20:42)
--- NOTE | 2021-11-06 17:50 | PC.NURSE ---
Alert and oriented. Denies pain, VSS, afebrile, no acute resp. distress noted. Score 9 on the COWS. MD updated. Medicated with clonidine and atarax as ordered. Patient converted to NSR, cardizem gtt stopped per protocol. Will continue to monitor and treat per plan of care.
[2021-11-06 19:58] LABS: Glucose, Whole Blood 292 mg/dL (60-115)
[2021-11-06] MEDS: hydrOXYzine HCL 50 MG TABLET PO (20:42)
[2021-11-06] MEDS: QUEtiapine Fumarate 50 MG TABLET PO (20:42)
[2021-11-07] MEDS: 0.9 % Sodium Chloride Flush 3 ML SYRINGE IVFLUSH ×2 (00:01→07:55)
[2021-11-07 03:37] VITALS: BP 125/58; PULSE 74; RESP 16; TEMP 36.4; O2SAT 96
--- NOTE | 2021-11-07 07:00 | CA_ITS ---
Transthoracic Echocardiogram Patient (Last, First, Middle): Herman Nelson, Gender: Male Date of : 1970 Age: 51 Procedure Date: 11/07/2021 Procedure Type: Transthoracic Echocardiogram Location: [facility] [place] Height: 180.34 cm Weight: 136.99 kg BSA: 2.51 m2 Heart Rate: 75 bpm BP: 108 / 55 mmHg Agile Java Developer: SB Referring MD: Neo Yepez MD Watch Dial Maker: Mario Rivas MD Symptoms: af Study Quality: Adequate, Contrast used ECG Rhythm: Sinus Conclusions: - 1. Normal LV systolic function with mild LVH with LVEF of greater than 70% 2. Normal cardiac valvular Dopplers 3. Normal measured RV systolic pressure 4. No gross pericardial effusion Findings Procedure Information Contrast agent, definity, is being given per protocol without apparent complications. Left Ventricle Normal left ventricular cavity size. There is mildly increased left ventricular wall thickness. The left ventricular systolic function is hyperdynamic. The visually estimated ejection fraction is >70%. Spectral Doppler is indicative of a normal filling pattern. Right Ventricle Normal right ventricular cavity size. Atria The left atrium is likely dilated. There is lipomatous hypertrophy of the interatrial septum. Interatrial shunt cannot be excluded. The right atrium is normal in size. Aortic Valve The aortic valve structure and function is likely normal. There is no aortic valve stenosis. There is no aortic valve regurgitation. Mitral Valve There is mild anterior mitral leaflet thickening. There is mild mitral annular calcification. There is trace mitral valve regurgitation. There is no mitral valve stenosis. Pulmonic Valve The pulmonic valve was not well visualized. Tricuspid Valve Likely normal tricuspid valve structure and function. There is trace tricuspid valve regurgitation. The right ventricular systolic pressure is normal. The right ventricular systolic pressure is 19 mmHg. Normal right atrial pressure. There is no evidence of pulmonary hypertension. Great Vessels All visible segments of the aorta are normal in size. The pulmonary artery was not well visualized. Venous The inferior vena cava is normal in size and collapses greater than 50% with inspiration. Pericardium/Pleural There is no evidence of pericardial effusion. Prior Study Comparison No significant change compared to prior study. Right atrial pressures appear to be within normal limits on this study. Measurements 2D Linear Measurements IVSd: 1.40 0.6-0.9/0.6-1.0 cm LVIDd: 4.98 3.9-5.3/4.2-5.9 cm LVIDd Index: 1.98 2.4-3.2/2.2-3.1 cm/m2 LVIDs: 2.65 2.0-3.6 cm LVPWd: 1.30 0.7-1.1 cm LA Diam: 4.30 2.7-3.8/3.0-4.0 cm LAIDs Index: 1.71 1.5-2.3 cm/m2 LV Mass: 342.66 67-162/88-224 g LV Mass Index: 136.52 43-95/49-115 g/m2 LVOT Diam: 2.20 3.0+(-)1.3 cm 2D Systolic Function EF 4C: 75.70 >55% EF 2C: 74.60 >55% EF BiP: 74.20 >55% Mitral Valve MV Pk E: 0.99 MV PK A: 0.46 MV Decel Time: 168.00 E/A: 2.10 E'Lateral: 10.30 E'Medial: 11.20 E/E' Med: 8.90 E/E' Lat: 9.70 PHT: 49.00 MVA PHT: 4.49 Decel Meigs: 5.93 Aortic Valve AoV Pk Kane: 1.71 AoV Mn Kane: 1.21 AoV VTI: 0.29 AoV Pk Grad: 12.00 Aov Mn Grad: 7.00 LON Cont.VTI: 3.49 LVOT LVOT Pk Kane: 1.49 LVOT Mn Kane: 0.93 LVOT VTI: 0.27 LVOT Pk Grad: 9.00 LVOT Mn Grad: 4.00 LVOT Diam: 2.20 LVOT Area: 3.80 Diastolic Function MV Pk E: 0.99 MV Pk A: 0.46 E/A: 2.10 E'Medial: 11.20 E/E' Med: 8.90 E' Laterial: 10.30 E/E' Lat: 9.70 Right Ventricle TAPSE (mm): 26.00 TVS' Kane: 18.50 Tricuspid Valve TR Pk Kane: 2.02 TR Pk Grad: 16.00 RA Press: 3.00 RVSP: 19.00 Great Vessels Aorta Sinus of Valsalva: 3.00 2.0-3.5 cm Ao Asc: 2.70 2.1-3.4 cm Ao Arch: 2.40 Pulmonary Veins Pulm Vein S/D 1.40 Pulmonary Valve PV Pk Kane: 1.21 Peak PV Grad: 6.00 Updated in Other Vendor System with Status of Final Mario Rivas MD electronically signed on 11/07/2021 11:01:42 AM with status of Final
[2021-11-07 07:17] VITALS: BP 108/55; PULSE 71; RESP 20; TEMP 36.7; O2SAT 97
[2021-11-07 07:24] LABS: Glucose, Whole Blood 340 mg/dL (60-115)
[2021-11-07] MEDS: Insulin Lispro 100 UNIT/ML 3 ML VIAL SUBCUT ×2 (07:51→12:14)
[2021-11-07] MEDS: busPIRone HCl 10 MG TABLET 30 MG PO (07:52)
[2021-11-07] MEDS: Escitalopram Oxalate 20 MG TABLET PO (07:53)
[2021-11-07] MEDS: Metoprolol Tartrate 100 MG TABLET PO (07:53)
[2021-11-07] MEDS: lisinopriL 10 MG TABLET 30 MG PO (07:53)
[2021-11-07] MEDS: Apixaban 5 MG TABLET PO (07:54)
[2021-11-07] MEDS: amLODIPine Besylate 5 MG TABLET PO (07:54)
[2021-11-07] MEDS: Tamsulosin HCL 0.4 MG CAPSULE PO (07:54)
[2021-11-07 08:00] VITALS: PULSE 71
--- NOTE | 2021-11-07 09:37 | MHC.CM.PN ---
CM met with Patient at bedside and addressed WOODS with him, providing him with the yellow copy and placing the original on the chart. Patient rents a room and lives alone and he uses a cane to assist with mobility. Home/self care vs Care Team interventions r/t SA is the goal and CM has initiated and will follow for dc planning. Patient has received no Covid vax and his PCP is Dr. Julio Carter.
[2021-11-07 11:09] VITALS: BP 98/50; PULSE 71; RESP 20; TEMP 36.7; O2SAT 98
[2021-11-07 11:26] LABS: Glucose, Whole Blood 229 mg/dL (60-115)
--- NOTE | 2021-11-07 11:28 | MHC.CM.PN ---
Per ROUNDS discussion, Patient will be medically cleared for dc to home today, self care. CM will arrange [facility] [place] Patient home early afternoon.
[2021-11-07] MEDS: Clotrimazole 1 % Cream 15 GM TUBE 1 APPL TOPICAL (12:14)
--- NOTE | 2021-11-07 13:10 | PM.DS ---
DS: Providers Provider Date of Service: 11/07/21 Date of admission: 11/06/21 08:08 Primary care physician: Julio Carter MD Consults: 11/06/21 07:51 Addiction Medicine Routine Consulting Provider: Fang Iraheta Reason for consultation: fentanyl Consult to Care Team Routine Comment: Reason for consultation: fentanyl DS: Diagnosis Discharge Diagnosis (1) Substance abuse: Status: Acute DS: Summary Hospital Course Hospital Course: history of presenting illness Date of Service: 11/05/21 Chief Complaint: chest pain This is a 51-year-old male with past medical history of AFib, asthma, diabetes, hypertension, anxiety, presents to the hospital with complaints of chest pain, discomfort in the chest area, patient reports symptoms started few hours prior to presentation, he was visiting his girlfriend in [facility] when he started having right-sided stabbing pain as well as a funny feeling in his chest.? He denies any nausea, no vomiting, reports no headache or change in vision, no shortness of breath, no abdominal pain diarrhea.? Patient reports a few days of diarrhea that started last week but resolved 2 days ago.? He reports no fever or chills, no urinary symptoms and no lower extremity edema.? On arrival to the ED patient was found in AFib with RVR, as well as hyperglycemic, when asked about medication compliance he reports that he has not been compliant with his Eliquis nor his metformin, he is a adamant that he has been taking the insulin.? Clear that has not been taking any of his pills due to his living situation at this time. Labs are significant for WBC count of 12.8, INR of 0.9, creatinine of 1.45 with a baseline around 1, initial glucose of 500, UA negative, UDS positive for opioids, fentanyl, and marijuana.? Troponin of 20, and BNP of 13 EKG shows AFib with RVR with a heart rate of 158 Multiple IV infusions of metoprolol, Cardizem with no affect, placed on Cardizem drip. hospital course 51yo M with AF, HTN, DM2, substance abuse, noncompliance, admitted for AF/RVR, patient treated with IV Cardizem drip converted to normal sinus rhythm, patient remained hemodynamically stable overnight will continue metoprolol and apixaban echocardiogram showed normal filling patterns and stable EF therefore being discharged home with strong recommendation to continue home medications as prescribed. counseling done for noncompliance In regard to hypertension noted to have soft blood pressure therefore recommend to continue metoprolol and lisinopril amlodipine has been discontinued for diabetes mellitus hemoglobin A1c 9.9 recommend to follow diabetic diet increase resume home medication for active opioid use disorder Seen by Addiction Team patient will be followed by them as outpatient for Suboxone mood disorder continue buspirone, escitalopram, hydroxyzine, quetiapine, and zolpidem Time Spent with Patient Time attestation: Total time spent providing and/or coordinating discharge services: Discharge coordination time: Greater than 30 minutes Quality: Safe Use of Opioids Does Pt have an Active Cancer Diagnosis on the Problem List?: No Quality: Stroke Does the patient have a stroke diagnosis?: No Physical Exam Vital Signs: Vital Signs: Last Vital Signs Temp 98.0 F 11/07/21 11:09 Pulse 71 11/07/21 11:09 Resp 20 11/07/21 11:09 BP 98/50 L 11/07/21 11:09 Pulse Ox 98 11/07/21 11:09 O2 Del Method 11/07/21 11:09 BMI result Body Mass Index 42.1 Const: Other: Gen: in no acute distress HEENT: sclera anicteric, moist mucus membranes Neck: supple Lungs: clear to auscultation bilaterally Heart: regular rate and rhythm, no murmurs Abd: soft, non-tender, non-distended, obese Ext: no edema Skin: warm/well-perfused Neuro: alert and oriented x3, no focal findings Psych: appropriate affect DS: Data Data Completed and Pending Labs on day of discharge: Laboratory Results - last 24 hr 11/06/21 11/06/21 11/07/21 16:12 19:56 07:17 POC Glucose 236 H 292 H 340 H 11/07/21 11:12 POC Glucose 229 H Discharge Plan Discharge Patient Disposition: Home, Self-Care Discharge Diagnosis: atrial fibrillation with RVR hypertension opioid use disorder Referrals: Julio Carter MD [Primary Care Provider] - 1 Week Discharge Medications: Continued diclofenac sodium 1 % gel 2 ea topical BID PRN (Reason: Pain) Qty: 30 0RF Rx Instructions: apply to bilaterial knees (DME) lancets 28 gauge misc See Rx Instructions topical TID Qty: 100 0RF Rx Instructions: As directed metoprolol tartrate 50 mg tablet 100 mg PO BID Qty: 60 0RF (DME) pen needle, diabetic 31 gauge x 3/16 needle See Rx Instructions subcut .MEDSUPPLY Qty: 50 3RF Rx Instructions: One daily (DME) FreeStyle Test Strip See Rx Instructions .Route Qty: 100 0RF Rx Instructions: TID Lantus Solostar U-100 Insulin 100 unit/mL (3 mL) insulin pen 30 unit subcut BEDTIME Qty: 15 2RF albuterol sulfate 90 mcg/actuation HFA aerosol inhaler 2 puff PO Q8H PRN (Reason: shortness of breath or wheezing) 30 Days Qty: 8.5 3RF (DME) FreeStyle Lite Strips Strip See Rx Instructions .ROUTE .MEDSUPPLY Qty: 100 12RF Rx Instructions: As directed three times a day zolpidem 10 mg tablet 10 mg PO BEDTIME PRN (Reason: insomnia) 30 Days Qty: 30 1RF metformin 1,000 mg tablet 1,000 mg PO BID Qty: 60 0RF buspirone 30 mg tablet 30 mg PO TID Qty: 90 1RF dulaglutide 0.75 mg/0.5 mL pen injector 0.75 mg subcut QWEEK Qty: 2 1RF tamsulosin 0.4 mg capsule 0.4 mg PO DAILY Qty: 30 1RF quetiapine 50 mg tablet 50 mg PO BEDTIME Qty: 30 0RF lisinopril 30 mg tablet 30 mg PO DAILY Qty: 90 0RF escitalopram oxalate 20 mg tablet 20 mg PO DAILY Qty: 30 1RF hydroxyzine HCl 25 mg tablet 25 mg PO TID PRN (Reason: for anxiety) Qty: 90 0RF Eliquis 5 mg tablet 5 mg PO BID Qty: 60 0RF tramadol 50 mg tablet 50 mg PO TID PRN (Reason: pain) 30 Days Qty: 90 0RF efinaconazole 10 % solution with applicator 1 appl topical BEDTIME 336 Days 0RF clotrimazole 1 % cream 1 appl topical TID Qty: 30 0RF (DME) BACK BRACE XL See Rx Instructions .Route .MEDSUPPLY Qty: 1 0RF Rx Instructions: As directed cetirizine 10 mg tablet 10 mg PO DAILY PRN (Reason: allergy symptoms) 90 Days Qty: 90 3RF lidocaine 5 % adhesive patch,medicated 2 patch topical DAILY PRN (Reason: pain) Qty: 60 5RF Rx Instructions: leave on most painful area for up to 12 hrs. keep off for 12 hrs Discontinued amlodipine 5 mg tablet 5 mg PO DAILY Qty: 30 1RF Discharge Orders: Discharge Order (Routine); Ordered 11/07/21 Ordered By: Levar New Diet: Diabetic diet Activity on Discharge: As tolerated Stand Alone Forms: Patient Portal Discharge page Care Plan Goals: take all home medications as prescribed Health Concerns: uncontrolled blood sugars follow diabetic diet and continue home medication Plan of Treatment: follow-up with primary care physician in 1 week, call Cardiology for continued outpatient follow up, outpatient follow-up with Addiction Team for Suboxone Assessment: as per discharge summary
--- NOTE | 2021-11-07 13:15 | MHC.CM.PN ---
Patient will leave today at 2:45 PM, via [facility] Shuttle (last trip out). RN & MD aware and Voucher given to RN.
--- NOTE | 2021-11-07 13:18 | HO.ADDICT_ITS ---
History of Present Illness Date of Service: 11/07/2021 Chief Complaint: A fib W RVR marijuana on opiate use Reason for Consult: fentanyl +UDS Sources of Information: patient interviewed and chart reviewed [facility] Narrative: Patient is a 51 year old male currently medically admitted with AFIB with RVR. Consult requested as UDS +for fentanyl. Patient seen by this comic writer in room 472. Patient awake and alert, engaged in interview. Patient not initially forthcoming with substance use, and required multiple pr ompts and follow up questions to obtain clarity on answers to questions. He reports history of opioid use for many years. Has been prescribed suboxone in the past, most recent being 2014 per his report. Reports 2 ATS admissions in 2018 and 2020. Reports one overdose in 2018 Current use: unclear--patient initially reported using sometimes on the weekend, then reported using several days during the week as well. Last use reported as being on Sunday when he reports he unknowingly smoked it. Previous to that he reported using 10 bags throughout the day the previous Sunday. Minimizing use throughout interview. Denied any withdrawal sx during interview, ? if there was substance use prior to interview as it was noted that patients eye lids appeared heavy--patient denies this when asked directly. Patient denies any alcohol use. Denies any cocaine use. Reviewed options for addressing opioid use, patient reporting he would like to take suboxone again. Very familiar with this medication, aware of goals of treatment, side effects and dosing. Past Psychiatric History: Outpatient and 1 inpatient hospitalization Review of Systems Constitutional: Reports as per HPI and Reports no additional constitutional complaints Diagnostics Vital Signs (24Hr): Vital Signs - 24 hr 11/06/21 14:59 11/06/21 19:12 11/06/21 23:22 Temperature 99.0 F 97.1 F 97.6 F Pulse Rate 75 79 67 Respiratory Rate 18 18 16 Blood Pressure 126/73 167/91 H 111/49 L Pulse Oximetry 95 94 98 Oxygen Delivery Method Room Air Room Air Room Air 11/07/21 03:37 11/07/21 07:17 11/07/21 11:09 Temperature 97.6 F 98.1 F 98.0 F Pulse Rate 74 71 71 Respiratory Rate 16 20 20 Blood Pressure 125/58 L 108/55 L 98/50 L Pulse Oximetry 96 97 98 Oxygen Delivery Method Room Air Room Air Room Air BMI result Body Mass Index 42.1 Labs Results: 11/06/21 06:58 11/06/21 06:58 Labs: Laboratory Results - last 48 hr 11/05/21 11/05/21 11/05/21 17:19 17:19 17:19 WBC 12.8 H RBC 4.99 Hgb 14.7 Hct 42.7 MCV 85.6 MCH 29.5 MCHC 34.4 RDW 12.0 Plt Count 291 MPV 9.9 Immature Gran % (Auto) 0.4 Neut % (Auto) 68.4 Lymph % (Auto) 22.7 [place] % (Auto) 7.4 Eos % (Auto) 0.9 Baso % (Auto) 0.2 Lymph # (Auto) 2.9 [place] # (Auto) 1.0 Eos # (Auto) 0.1 Baso # (Auto) 0.0 Abs Immat Gran (auto) 0.05 H Absolute Neuts (auto) 8.8 H Absolute Nucleated RBC 0.000 Nucleated RBC % (auto) 0.0 PT 10.1 INR 0.9 APTT 28.0 Sodium 135 Potassium 4.9 Chloride 96 Carbon Dioxide 29 Anion Gap 15 BUN 16 Creatinine 1.45 H Estim Creat Clear Calc 87.1 Estimated GFR 52 POC Glucose Random Glucose 524 H* Estimat Average Glucose Hemoglobin A1c % Calcium 9.3 Magnesium Total Bilirubin Direct Bilirubin AST ALT Alkaline Phosphatase Troponin I High Sens B-Natriuretic Peptide Total Protein Albumin Lipase TSH Urine Color Urine Appearance Urine pH Ur Specific [place] Urine Protein Urine Glucose (UA) Urine Ketones Urine Blood Urine Nitrite Ur Leukocyte Esterase Urine RBC Urine WBC Ur Squamous Epith Cells Urine Bacteria Hyaline Casts Urine Opiates Screen Urine Fentanyl Screen Ur Barbiturates Screen Ur Phencyclidine Scrn Ur Amphetamines Screen U Benzodiazepines Scrn Urine Cocaine Screen U Marijuana (THC) Screen COVID-19 (DG) COVID-19 Clin Com 11/05/21 11/05/21 11/05/21 17:19 17:19 17:19 WBC RBC Hgb Hct MCV MCH MCHC RDW Plt Count MPV Immature Gran % (Auto) Neut % (Auto) Lymph % (Auto) [place] % (Auto) Eos % (Auto) Baso % (Auto) Lymph # (Auto) [place] # (Auto) Eos # (Auto) Baso # (Auto) Abs Immat Gran (auto) Absolute Neuts (auto) Absolute Nucleated RBC Nucleated RBC % (auto) PT INR APTT Sodium Potassium Chloride Carbon Dioxide Anion Gap BUN Creatinine Estim Creat Clear Calc Estimated GFR POC Glucose Random Glucose Estimat Average Glucose Hemoglobin A1c % Calcium Magnesium 2.0 Total Bilirubin 0.3 Direct Bilirubin < 0.2 AST 28 ALT 45 H Alkaline Phosphatase 131 H D Troponin I High Sens B-Natriuretic Peptide 13 Total Protein 7.2 Albumin 4.3 Lipase 35 TSH Urine Color Urine Appearance Urine pH Ur Specific [place] Urine Protein Urine Glucose (UA) Urine Ketones Urine Blood Urine Nitrite Ur Leukocyte Esterase Urine RBC Urine WBC Ur Squamous Epith Cells Urine Bacteria Hyaline Casts Urine Opiates Screen Urine Fentanyl Screen Ur Barbiturates Screen Ur Phencyclidine Scrn Ur Amphetamines Screen U Benzodiazepines Scrn Urine Cocaine Screen U Marijuana (THC) Screen COVID-19 (DG) Negative COVID-Hyperformix Com See Note 11/05/21 11/05/21 11/05/21 17:22 17:46 17:46 WBC RBC Hgb Hct MCV MCH MCHC RDW Plt Count MPV Immature Gran % (Auto) Neut % (Auto) Lymph % (Auto) [place] % (Auto) Eos % (Auto) Baso % (Auto) Lymph # (Auto) [place] # (Auto) Eos # (Auto) Baso # (Auto) Abs Immat Gran (auto) Absolute Neuts (auto) Absolute Nucleated RBC Nucleated RBC % (auto) PT INR APTT Sodium Potassium Chloride Carbon Dioxide Anion Gap BUN Creatinine Estim Creat Clear Calc Estimated GFR POC Glucose Random Glucose Estimat Average Glucose Hemoglobin A1c % Calcium Magnesium Total Bilirubin Direct Bilirubin AST ALT Alkaline Phosphatase Troponin I High Sens 20.0 B-Natriuretic Peptide Total Protein Albumin Lipase TSH Urine Color Yellow Urine Appearance Clear Urine pH 5.5 Ur Specific [place] >= 1.030 H Urine Protein Negative Urine Glucose (UA) >=1000 H Urine Ketones Negative Urine Blood Negative Urine Nitrite Negative Ur Leukocyte Esterase Negative Urine RBC 0-2 Urine WBC 0-5 Ur Squamous Epith Cells 0-2 Urine Bacteria None Seen Hyaline Casts 0-2 Urine Opiates Screen POSITIVE H Urine Fentanyl Screen POSITIVE H Ur Barbiturates Screen Not Detected Ur Phencyclidine Scrn Not Detected Ur Amphetamines Screen Not Detected U Benzodiazepines Scrn Not Detected Urine Cocaine Screen Not Detected U Marijuana (THC) Screen POSITIVE H COVID-19 (DG) COVID-19 Profig 11/05/21 11/06/21 11/06/21 21:12 06:58 06:58 WBC 8.1 RBC 4.64 Hgb 13.7 L Hct 40.2 L MCV 86.6 MCH 29.5 MCHC 34.1 RDW 12.0 Plt Count 254 MPV 10.1 Immature Gran % (Auto) 0.5 H Neut % (Auto) 54.0 Lymph % (Auto) 35.9 [place] % (Auto) 7.8 Eos % (Auto) 1.4 Baso % (Auto) 0.4 Lymph # (Auto) 2.9 [place] # (Auto) 0.6 Eos # (Auto) 0.1 Baso # (Auto) 0.0 Abs Immat Gran (auto) 0.04 H Absolute Neuts (auto) 4.4 Absolute Nucleated RBC 0.000 Nucleated RBC % (auto) 0.0 PT INR APTT Sodium 136 Potassium 4.1 Chloride 99 Carbon Dioxide 28 Anion Gap 13 BUN 15 Creatinine 0.98 Estim Creat Clear Calc 128.9 Estimated GFR > 60 POC Glucose 359 H* Random Glucose 342 H Estimat Average Glucose Hemoglobin A1c % Calcium 9.0 Magnesium 2.0 Total Bilirubin Direct Bilirubin AST ALT Alkaline Phosphatase Troponin I High Sens B-Natriuretic Peptide Total Protein Albumin Lipase TSH Urine Color Urine Appearance Urine pH Ur Specific [place] Urine Protein Urine Glucose (UA) Urine Ketones Urine Blood Urine Nitrite Ur Leukocyte Esterase Urine RBC Urine WBC Ur Squamous Epith Cells Urine Bacteria Hyaline Casts Urine Opiates Screen Urine Fentanyl Screen Ur Barbiturates Screen Ur Phencyclidine Scrn Ur Amphetamines Screen U Benzodiazepines Scrn Urine Cocaine Screen U Marijuana (THC) Screen COVID-19 (DG) COVID-19 Clin Com 11/06/21 11/06/21 11/06/21 06:58 06:58 07:47 WBC RBC Hgb Hct MCV MCH MCHC RDW Plt Count MPV Immature Gran % (Auto) Neut % (Auto) Lymph % (Auto) [place] % (Auto) Eos % (Auto) Baso % (Auto) Lymph # (Auto) [place] # (Auto) Eos # (Auto) Baso # (Auto) Abs Immat Gran (auto) Absolute Neuts (auto) Absolute Nucleated RBC Nucleated RBC % (auto) PT INR APTT Sodium Potassium Chloride Carbon Dioxide Anion Gap BUN Creatinine Estim Creat Clear Calc Estimated GFR POC Glucose 359 H* Random Glucose Estimat Average Glucose 237 Hemoglobin A1c % 9.9 Calcium Magnesium Total Bilirubin Direct Bilirubin AST ALT Alkaline Phosphatase Troponin I High Sens B-Natriuretic Peptide Total Protein Albumin Lipase TSH 1.34 Urine Color Urine Appearance Urine pH Ur Specific [place] Urine Protein Urine Glucose (UA) Urine Ketones Urine Blood Urine Nitrite Ur Leukocyte Esterase Urine RBC Urine WBC Ur Squamous Epith Cells Urine Bacteria Hyaline Casts Urine Opiates Screen Urine Fentanyl Screen Ur Barbiturates Screen Ur Phencyclidine Scrn Ur Amphetamines Screen U Benzodiazepines Scrn Urine Cocaine Screen U Marijuana (THC) Screen COVID-19 (DG) COVID-19 Clin Com 11/06/21 11/06/21 11/06/21 11:21 16:12 19:56 WBC RBC Hgb Hct MCV MCH MCHC RDW Plt Count MPV Immature Gran % (Auto) Neut % (Auto) Lymph % (Auto) [place] % (Auto) Eos % (Auto) Baso % (Auto) Lymph # (Auto) [place] # (Auto) Eos # (Auto) Baso # (Auto) Abs Immat Gran (auto) Absolute Neuts (auto) Absolute Nucleated RBC Nucleated RBC % (auto) PT INR APTT Sodium Potassium Chloride Carbon Dioxide Anion Gap BUN Creatinine Estim Creat Clear Calc Estimated GFR POC Glucose 291 H 236 H 292 H Random Glucose Estimat Average Glucose Hemoglobin A1c % Calcium Magnesium Total Bilirubin Direct Bilirubin AST ALT Alkaline Phosphatase Troponin I High Sens B-Natriuretic Peptide Total Protein Albumin Lipase TSH Urine Color Urine Appearance Urine pH Ur Specific [place] Urine Protein Urine Glucose (UA) Urine Ketones Urine Blood Urine Nitrite Ur Leukocyte Esterase Urine RBC Urine WBC Ur Squamous Epith Cells Urine Bacteria Hyaline Casts Urine Opiates Screen Urine Fentanyl Screen Ur Barbiturates Screen Ur Phencyclidine Scrn Ur Amphetamines Screen U Benzodiazepines Scrn Urine Cocaine Screen U Marijuana (THC) Screen COVID-19 (DG) COVID-19 Clin Com 11/07/21 11/07/21 07:17 11:12 WBC RBC Hgb Hct MCV MCH MCHC RDW Plt Count MPV Immature Gran % (Auto) Neut % (Auto) Lymph % (Auto) [place] % (Auto) Eos % (Auto) Baso % (Auto) Lymph # (Auto) [place] # (Auto) Eos # (Auto) Baso # (Auto) Abs Immat Gran (auto) Absolute Neuts (auto) Absolute Nucleated RBC Nucleated RBC % (auto) PT INR APTT Sodium Potassium Chloride Carbon Dioxide Anion Gap BUN Creatinine Estim Creat Clear Calc Estimated GFR POC Glucose 340 H 229 H Random Glucose Estimat Average Glucose Hemoglobin A1c % Calcium Magnesium Total Bilirubin Direct Bilirubin AST ALT Alkaline Phosphatase Troponin I High Sens B-Natriuretic Peptide Total Protein Albumin Lipase TSH Urine Color Urine Appearance Urine pH Ur Specific [place] Urine Protein Urine Glucose (UA) Urine Ketones Urine Blood Urine Nitrite Ur Leukocyte Esterase Urine RBC Urine WBC Ur Squamous Epith Cells Urine Bacteria Hyaline Casts Urine Opiates Screen Urine Fentanyl Screen Ur Barbiturates Screen Ur Phencyclidine Scrn Ur Amphetamines Screen U Benzodiazepines Scrn Urine Cocaine Screen U Marijuana (THC) Screen COVID-19 (DG) COVID-19 Clin Com Imaging Radiology Impressions: ITS Impressions Chest X-Ray 11/05/21 17:28 IMPRESSION: No radiographic evidence of acute cardiopulmonary disease. Mental Status Exam Mental Status Exam Patient Appearance: Appropriate Patient Orientation: Person, Place, Time and Situation Level of Consciousness: Awake Patient Behavior: Cooperative Thought Process: Goal Oriented Judgement: Fair (insight limited to poor ) Medications Medications Current Medications Acetaminophen (Acetaminophen 325 Mg Tablet) 650 mg PO Q6H PRN PRN Reason: Pain, Mild (Pain Scale 1-3) Albuterol Sulfate (Albuterol Sulfate 90 Mcg 8 Gm Inhaler) 2 puff INHALE Q8H PRN PRN Reason: shortness of breath or wheezing Amlodipine Besylate (Amlodipine Besylate 5 Mg Tablet) 5 mg PO DAILY [facility]; Protocol Last Admin: 11/07/21 07:54 Dose: 5 mg Apixaban (Apixaban 5 Mg Tablet) 5 mg PO BID [facility] Last Admin: 11/07/21 07:54 Dose: 5 mg Buspirone HCl (Buspirone Hcl 10 Mg Tablet) 30 mg PO TID [facility] Last Admin: 11/07/21 07:52 Dose: 30 mg Clonidine HCl (Clonidine Hcl 0.1 Mg Tablet) 0.1 mg PO Q4H PRN; Protocol PRN Reason: opioid withdrwa Last Admin: 11/06/21 20:42 Dose: 0.1 mg Clotrimazole (Clotrimazole 1 % Cream 15 Gm Tube) 1 appl TOPICAL TID [facility]; Protocol Last Admin: 11/07/21 12:14 Dose: 1 appl Dextrose (Dextrose 50 % 25 Gm/50 Ml Syringe) 25 gm IVPUSH Q15M PRN; Protocol PRN Reason: per Hypoglycemia Standing Ord. Docusate Sodium (Docusate Sodium 100 Mg Capsule) 100 mg PO DAILY PRN PRN Reason: Constipation Escitalopram Oxalate (Escitalopram Oxalate 20 Mg Tablet) 20 mg PO DAILY [facility] Last Admin: 11/07/21 07:53 Dose: 20 mg Glucose (Glucose Gel 15 Gm Gel..Gram.) 15 gm PO Q15M PRN; Protocol PRN Reason: per Hypoglycemia Standing Ord. Hydroxyzine HCl (Hydroxyzine Hcl 25 Mg Tablet) 25 mg PO TID PRN PRN Reason: for anxiety Last Admin: 11/06/21 17:03 Dose: 25 mg Hydroxyzine HCl (Hydroxyzine Hcl 50 Mg Tablet) 50 mg PO Q4H PRN PRN Reason: anxiety/agitation Last Admin: 11/06/21 20:42 Dose: 50 mg Insulin Glargine (Insulin Glargine,Hum.Rec.Anlog 100 Unit/Ml 10 Ml Vial) 30 unit SUBCUT BEDTIME [facility] Last Admin: 11/06/21 20:43 Dose: 30 unit Insulin Human Lispro (Insulin Lispro 100 Unit/Ml 3 Ml Vial) 0 unit SUBCUT QIDACHS [facility]; Protocol Last Admin: 11/07/21 12:14 Dose: 8 unit Lidocaine (Lidocaine 4 % Patch Adh..Patch) 2 patch TRANSDERMA DAILY PRN PRN Reason: pain Lisinopril (Lisinopril 10 Mg Tablet) 30 mg PO DAILY [facility]; Protocol Last Admin: 11/07/21 07:53 Dose: 30 mg Loperamide HCl (Loperamide Hcl 2 Mg Capsule) 4 mg PO Q6H PRN PRN Reason: abdomianl cramping Loratadine (Loratadine 10 Mg Tablet) 10 mg PO DAILY PRN PRN Reason: allergy symptoms Metoprolol Tartrate (Metoprolol Tartrate 100 Mg Tablet) 100 mg PO BID [facility]; Protocol Last Admin: 11/07/21 07:53 Dose: 100 mg Ondansetron HCl (Ondansetron Hcl 4 Mg/2 Ml Vial) 4 mg IVPUSH Q8H PRN PRN Reason: Nausea and Vomiting Pharmacy Consult (Consult Rx Perform Med Rec) 1 each MISCELLANE ONCE PRN PRN Reason: Consult order Prochlorperazine Maleate (Prochlorperazine Maleate 5 Mg Tablet) 10 mg PO Q4H PRN PRN Reason: nausea/vomivint Quetiapine Fumarate (Quetiapine Fumarate 50 Mg Tablet) 50 mg PO BEDTIME [facility] Last Admin: 11/06/21 20:42 Dose: 50 mg Sodium Chloride (0.9 % Sodium Chloride Flush 3 Ml Syringe) 3 ml IVFLUSH QSHIFT [facility] Last Admin: 11/07/21 07:55 Dose: 3 ml Tamsulosin HCl (Tamsulosin Hcl 0.4 Mg Capsule) 0.4 mg PO DAILY [facility] Last Admin: 11/07/21 07:54 Dose: 0.4 mg Tizanidine HCl (Tizanidine Hcl 4 Mg Tablet) 4 mg PO Q8H PRN PRN Reason: muscle spasticity Tramadol HCl (Tramadol Hcl 50 Mg Tablet) 50 mg PO TID PRN PRN Reason: Pain, Mild (Pain Scale 1-3) Zolpidem Tartrate (Zolpidem Tartrate 5 Mg Tablet) 5 mg PO BEDTIME PRN PRN Reason: insomnia Allergies Allergies Allergy/AdvReac Type Severity Reaction Status Date / Time Penicillins [PENICILLINS] Allergy Unknown RASH Verified 11/05/21 16:55 Assessment & Plan Assessment & Plan (1) Opioid use disorder: Status: Acute Code(s): F11.90 - Opioid use, unspecified, uncomplicated Assessment and Plan: * patient discharging shortly after interview. Seen by RSRN as well, offered intake appt this afternoon, patient declined requested to come in tomorrow * overdose and harm reduction discussion with patient * take home narcan ordered I spent __35____ minutes with the patient and/or on the patient floor today, greater than?50% of which was spent counseling/coordinating care. [facility] Past Medical History Medical History Anxiety Arthritis Asthma Benign essential hypertension BPH (benign prostatic hyperplasia) Depression Diabetes Family history of thyroid disorder Insomnia Lumbar degenerative disc disease Morbid obesity with BMI of 40.0-44.9, adult Overactive bladder Primary osteoarthritis of both knees Seizure Substance abuse Type 2 diabetes mellitus with hyperglycemia Family History Family History Father ETOH abuse Mother Diabetes Arthritis of knee Hypertension Other Mental health problem Substance abuse Surgical History Surgical History No history of previous surgery Social History Social History Household Members: Other Household Members Other:: room Housing: Other Housing Other:: Room Do you presently have visiting nurse or other home services: No Alcohol intake: current Alcohol intake frequency: holidays/special occasions only Patient Tobacco Use Status: Never used Tobacco Second Hand Smoke Exposure: Yes Substance Use Type: Crack/Cocaine, Heroin and Marijuana service: No Current occupational status: disabled Cognitive needs: No Hearing needs: No Vision needs: No
[2021-11-07] MEDS: Naloxone HCl Nasal TAKE HOME 4 MG SPRAY NOSTRILALT (14:44)
== END 2021-11-07 14:47 | disposition home or self-care (01) | DRG 201 ==
LOC: HO.ED 22:29 → HO.EDOVER 23:48 → HO.IMC 11-06 01:51
PROVIDERS: Family Medicine; Nurse Practitioner Family; Admitting Provider Internal Medicine; Emergency Provider Emergency Medicine; PCP Internal Medicine; Visit Provider Hospitalist
DX: I48.91 Unspecified atrial fibrillation (principal); E11.65 Type 2 diabetes mellitus with hyperglycemia; E66.01 Morbid (severe) obesity due to excess calories; G89.29 Other chronic pain; Z20.822 Contact with and (suspected) exposure to COVID-19; Z68.41 Body mass index [BMI] 40.0-44.9, adult; Z91.14 Patient's other noncompliance with medication regimen; F11.20 Opioid dependence, uncomplicated; F12.10 Cannabis abuse, uncomplicated; I10 Essential (primary) hypertension; Z88.0 Allergy status to penicillin; Z79.01 Long term (current) use of anticoagulants; Z79.4 Long term (current) use of insulin; Z79.84 Long term (current) use of oral hypoglycemic drugs; Z79.899 Other long term (current) drug therapy
CPT/HCPCS: 36415; 71045; 80048; 80076; 80307; 81001; 82947; 83036; 83690; 83735; 83880; 84443; 84484; 85025; 85610; 85730; 87635; 93005; 93306; 96365; 96375; 96376; 99285; Q9957

== ENCOUNTER 2021-11-13 01:36 | Emergency (ER) | payer OTHER, SELFPAY ==
--- NOTE | ~2021-11-13 | XR_ITS ---
EXAMINATION: XR CHEST CLINICAL INFORMATION: Chest pain COMPARISON: 11/05/2021 TECHNIQUE: Frontal view of the chest was obtained. FINDINGS: No significant abnormality is noted involving the heart, lungs, mediastinum, bony thorax or soft tissues. XR/XR chest 1V IMPRESSION: Unremarkable examination.
--- NOTE | 2021-11-13 01:41 | ECG_ITS ---
Test Reason : CP Blood Pressure : / mmHG Vent. Rate : 103 BPM Atrial Rate : 103 BPM P-R Int : 142 ms QRS Dur : 098 ms QT Int : 352 ms P-R-T Axes : 056 030 -12 degrees QTc Int : 461 ms Sinus tachycardia Inferior infarct (cited on or before 10-NOV-2018) Abnormal ECG When compared with ECG of 05-NOV-2021 17:04, Sinus rhythm has replaced Atrial fibrillation Vent. rate has decreased BY 55 BPM Serial changes of Inferior infarct Present Referred By: Generic ED Physician Electronically Signed By:JOSE CRUZ PONCE
[2021-11-13 01:56] VITALS: BP 136/69; PULSE 103; RESP 22; TEMP 37.1; O2SAT 96; BMI 42.4
[2021-11-13 01:58] LABS: MANUAL DIFF FLAG NO
[2021-11-13 01:59] LABS: Basophils Percent Auto 0.4 % (0-2); Eosinophils Absolute Auto 0.1 X10*3/uL (0.0-0.4); Eosinophils Percent Auto 0.9 % (0-4); Hematocrit 41.3 % (42.0-52.0); Hemoglobin 13.9 g/dl (14.0-18.0); Imm Gran Abs Auto 0.04 X10*3/uL (0.00-0.03); Imm Gran Pct Auto 0.4 % (0.0-0.4); Lymphocytes Absolute Auto 3.1 X10*3/uL (1.2-4.9); Lymphocytes Percent Auto 28.8 % (20-40); Mean Corpuscular HGB Conc 33.7 g/dl (31.0-36.0); Mean Corpuscular Hemoglobin 29.3 pg (27.0-33.0); Mean Corpuscular Volume 86.9 fL (80.0-98.0); Mean Platelet Volume 9.5 fL (9.4-12.4); Monocytes Percent Auto 9.3 % (2-11); Neutrophils Absolute Auto 6.6 x10*3/uL (2.0-8.3); Neutrophils Percent Auto 60.2 % (45-73); Platelet Count 290 X10*3/uL (160-400); Red Blood Count 4.75 X10*6/uL (4.60-5.80); Red Cell Distribution Width 12.1 % (11.0-16.0); White Blood Count 10.9 X10*3/uL (4.8-10.8)
[2021-11-13 02:12] LABS: Appearance Urine Clear; Color Urine Yellow; Glucose Urine UA 100 mg/dL (Negative); Leukocyte Esterase Urine Negative (Negative); Nitrite Urine Negative (Negative); Specific Gravity - Urine 1.025 (1.005-1.025); Urine Blood Negative (Negative); Urine Ketones Negative (Negative); Urine Protein Trace mg/dL (Neg-Trace)
[2021-11-13 02:17] LABS: Troponin-I High Sensitivity 6.4 ng/L (<3.5-35.0)
[2021-11-13 02:21] LABS: Anion Gap 16 (12-20); Blood Urea Nitrogen 19 mg/dL (9-16); Calcium 9.8 mg/dL (8.4-10.2); Carbon Dioxide 29 mmol/L (22-29); Chloride 100 mmol/L (96-108); Creatinine Clr Calc Pharmacy 99.8; Estimated Glomerular Filt Rate > 60; Glucose Random 240 mg/dL (60-115); Potassium 4.2 mmol/L (3.3-5.1); Sodium 141 mmol/L (135-145)
[2021-11-13 02:26] LABS: Amphetamine Screen Urine Not Detected (Not Detect); Barbiturates, Urine Not Detected (Not Detect); Benzodiazepines Screen Urine Not Detected (Not Detect); Cannabinoid Screen Urine POSITIVE (Not Detect); Cocaine Screen Urine POSITIVE (Not Detect); Fentanyl, urine POSITIVE (Not Detect); Opiate Screen Urine POSITIVE (Not Detect); Phencyclidine Screen Urine Not Detected (Not Detect)
[2021-11-13 03:05] LABS: Glucose, Whole Blood 221 mg/dL (60-115)
[2021-11-13 04:00] VITALS: BP 108/60; PULSE 87; RESP 16; TEMP 36.7; O2SAT 98
--- NOTE | 2021-11-13 07:06 | PC.NURSE ---
Pt requested water to drink and has been resting quietly. No apparent distress.
[2021-11-13 08:05] LABS: Troponin-I High Sensitivity 5.2 ng/L (<3.5-35.0)
--- NOTE | 2021-11-13 08:19 | ED_ITS ---
HPI - Chest Pain General Chief Complaint: Chest Pain Stated Complaint: chest pain, dizziness Time Seen by Provider: 11/13/21 01:51 Source: patient Mode of arrival: EMS Limitations: no limitations History of Present Illness HPI narrative: 51 yo male with hx of substance abuse, DM, chronic pain used what he thought was fentanyl yesterday (snorted) but it tasted different since then he felt off shaky and sick. He had chest pain as well. He presented with n/v/d. On my exam which was after he slept in the ED all night for about 7 hours waiting to be seen he stated he felt much better and wanted to eat. He was not aware he used cocaine. He feels fine now is asking for diflucan for chronic yeast infection and referral to suboxone clinic but does not want to go to detox. MD complaint: chest pain Onset (ago): hour(s) (24+) Timing of current episode: now resolved Prior episodes: No Onset: associated with drug use Pain location: substernal Pain radiation: left arm Severity: moderate Quality: tightness Relieving factors: nothing Exacerbating factors: stress Context: other (started after snorting heroing) Associated symptoms: nausea, vomiting and diaphoresis Treatment prior to arrival: none Related Data Previous Rx's Medication Instructions Recorded clotrimazole 1 % topical cream 1 appl topical TID #30 grams 12/07/20 diclofenac sodium 1 % topical gel 2 ea topical BID PRN Pain #30 grams 12/08/20 blood sugar diagnostic (FreeStyle #100 ea 02/07/21 Test strips) lancets 28 gauge #100 ea 02/07/21 metoprolol tartrate 50 mg tablet 100 mg PO BID #60 tabs 02/07/21 pen needle, diabetic 31 gauge x #50 ea 02/07/21 3/ cetirizine 10 mg tablet 10 mg PO DAILY PRN allergy 02/14/21 symptoms 90 days #90 tabs efinaconazole 10 % topical 1 appl topical BEDTIME 48 weeks 04/09/21 solution with applicator BACK BRACE #1 ea 04/29/21 lidocaine 5 % topical patch 2 patch topical DAILY PRN pain #60 06/08/21 ea insulin glargine 100 unit/mL (3 30 unit (0.3 mL) subcut BEDTIME 07/15/21 mL) subcutaneous pen (Lantus #15 mL Solostar U-100 Insulin) albuterol sulfate 90 mcg/actuation 2 puff PO Q8H PRN shortness of 07/25/21 aerosol inhaler breath or wheezing 30 days #8.5 grams blood sugar diagnostic (FreeStyle #100 ea 07/28/21 Lite Strips) metformin 1,000 mg tablet 1,000 mg PO BID #60 tabs 09/07/21 buspirone 30 mg tablet 30 mg PO TID #90 tabs 09/13/21 tamsulosin 0.4 mg capsule 0.4 mg PO DAILY #30 caps 10/10/21 quetiapine 50 mg tablet 50 mg PO BEDTIME #30 tabs 10/17/21 lisinopril 30 mg tablet 30 mg PO DAILY #90 tabs 10/27/21 escitalopram oxalate 20 mg tablet 20 mg PO DAILY #30 tabs 10/30/21 hydroxyzine HCl 25 mg tablet 25 mg PO TID PRN for anxiety #90 11/01/21 tabs apixaban 5 mg tablet (Eliquis) 5 mg PO BID #60 tabs 11/03/21 tramadol 50 mg tablet 50 mg PO TID PRN pain 30 days #90 11/04/21 tabs dulaglutide 0.75 mg/0.5 mL 0.75 mg (0.5 mL) subcut QWEEK #2 mL 11/07/21 subcutaneous pen injector zolpidem 10 mg tablet 10 mg PO BEDTIME PRN insomnia 30 11/07/21 days #30 tabs fluconazole 150 mg tablet 150 mg PO DAILY #1 tab 11/13/21 (Diflucan) lidocaine 5 % topical patch 1 patch topical DAILY #30 ea 11/13/21 Allergies Allergy/AdvReac Type Severity Reaction Status Date / Time Penicillins [PENICILLINS] Allergy Unknown RASH Verified 11/13/21 02:08 Review of Systems Review of Systems: Constitutional : No Weight loss, No Fever, No Chills ENT/Mouth : No sore throat, No Rhinorrhea Eyes: No Eye Pain, No Swelling Cardiovascular : pos Chest Pain, no SOB, no Dyspnea on Exertion, No Orthopnea, No Edema, No Palpitations Respiratory : No Cough, No Sputum Gastrointestinal : pos Nausea pos Vomiting, pos Diarrhea, No abdominal Pain, No Hematochezia, No Melena Genitourinary : No Dysuria, No Urinary Frequency Musculoskeletal : No joint pain, No Myalgias, No Joint Swelling Skin : No Skin Lesions, No rash Neuro : No Weakness, No Numbness, No Dizziness, No Headache Psych : pos Anxiety/Panic, No Depression Heme/Lymph: No Bruising, No Lymphadenopathy Endocrine : No Polyuria, No Polydipsia All other systems reviewed and are negative [facility] Past Medical History Attestation statement: The following information was validated with the patient. Medical History Anxiety Arthritis Asthma Benign essential hypertension BPH (benign prostatic hyperplasia) Depression Diabetes Family history of thyroid disorder Insomnia Lumbar degenerative disc disease Morbid obesity with BMI of 40.0-44.9, adult Overactive bladder Primary osteoarthritis of both knees Seizure Substance abuse Type 2 diabetes mellitus with hyperglycemia Surgical History No history of previous surgery Family History Family History Father ETOH abuse Mother Diabetes Arthritis of knee Hypertension Other Mental health problem Substance abuse Social History Social History Household Members: Other Household Members Other:: room Housing: Other Housing Other:: Room Do you presently have visiting nurse or other home services: No Alcohol intake: current Alcohol intake frequency: holidays/special occasions only Patient Tobacco Use Status: Never used Tobacco Second Hand Smoke Exposure: Yes Use of substances other than those prescribed or required for medical reasons: Yes Substance Use Type: Heroin and Marijuana Substance Use Frequency: Recent Binge Last Used Substance: Hours (ago) Advance Directives: No Advance Directives Information Provided: No service: No Current occupational status: disabled Cognitive needs: No Hearing needs: No Vision needs: No Physical Exam Vital Signs: Vital Signs: Last Vital Signs Temp 98.1 F 11/13/21 04:00 Pulse 87 11/13/21 04:00 Resp 16 11/13/21 04:00 BP 108/60 11/13/21 04:00 Pulse Ox 98 11/13/21 04:00 O2 Del Method 11/13/21 04:00 BMI result Body Mass Index 42.4 Appearance: Alert. Oriented X3. No acute distress. walking around asking f or food Eyes: Pupils equal, round and reactive to light. ENT: Pharynx normal. Neck: Normal inspection. Neck supple. CVS: Normal heart rate and rhythm. Pulses normal. Respiratory: No respiratory distress. Breath sounds normal. Abdomen: Soft and nontender. obese Skin: Skin warm and dry. Normal skin color. Normal skin turgor. Extremities: No lower extremity edema. No calf ttp Neuro: Oriented X 3. No motor deficit. No sensory deficit. MDM - Chest Pain MDM Narrative Medical decision making narrative: 51 yo male with hx of DM, substance abuse, here with c/o chest pain not feeling well that has resolved this AM. He is feeling fine now walking around asking for breakfast. He does not inject drugs this is due to cocaine abuse. Patient was not aware he was using cocaine. He plans to follow up with our suboxone clinic. At this time repeat troponin is flat. He can be discharged - does not want detox. He is asking for diflucan for chronic groin candidiasis and lidocaine patches as well as breakfast Lab Data Result diagrams: 11/13/21 01:54 11/13/21 01:54 Labs: Lab Results 11/13/21 11/13/21 11/13/21 Range/Units 01:54 01:54 01:55 WBC 10.9 H (4.8-10.8) X10*3/uL RBC 4.75 (4.60-5.80) X10*6/uL Hgb 13.9 L (14.0-18.0) g/dl Hct 41.3 L (42.0-52.0) % MCV 86.9 (80.0-98.0) fL MCH 29.3 (27.0-33.0) pg MCHC 33.7 (31.0-36.0) g/dl RDW 12.1 (11.0-16.0) % Plt Count 290 (160-400) X10*3/uL MPV 9.5 (9.4-12.4) fL Immature Gran % (Auto) 0.4 (0.0-0.4) % Neut % (Auto) 60.2 (45-73) % Lymph % (Auto) 28.8 (20-40) % [place] % (Auto) 9.3 (2-11) % Eos % (Auto) 0.9 (0-4) % Baso % (Auto) 0.4 (0-2) % Lymph # (Auto) 3.1 (1.2-4.9) X10*3/uL [place] # (Auto) 1.0 (0.1-1.2) X10*3/uL Eos # (Auto) 0.1 (0.0-0.4) X10*3/uL Baso # (Auto) 0.0 (0.0-0.2) X10*3/uL Abs Immat Gran (auto) 0.04 H (0.00-0.03) X10*3/uL Absolute Neuts (auto) 6.6 (2.0-8.3) x10*3/uL Absolute Nucleated RBC 0.000 (0.0-0.012) X10*3/uL Nucleated RBC % (auto) 0.0 (0.0-0.2) /100WBC Sodium 141 (135-145) mmol/L Potassium 4.2 (3.3-5.1) mmol/L Chloride 100 (96-108) mmol/L Carbon Dioxide 29 (22-29) mmol/L Anion Gap 16 (12-20) BUN 19 H (9-16) mg/dL Creatinine 1.27 (0.5-1.4) mg/dL Estim Creat Clear Calc 99.8 Estimated GFR > 60 POC Glucose (60-115) mg/dL Random Glucose 240 H (60-115) mg/dL Calcium 9.8 D (8.4-10.2) mg/dL Troponin I High Sens 6.4 D (<3.5-35.0) ng/L Urine Color Urine Appearance Urine pH (5.0-9.0) Ur Specific [place] (1.005-1.025) Urine Protein (Neg-Trace) mg/dL Urine Glucose (UA) (Negative) mg/dL Urine Ketones (Negative) mg/dL Urine Blood (Negative) Urine Nitrite (Negative) Ur Leukocyte Esterase (Negative) Urine Opiates Screen (Not Detect) Urine Fentanyl Screen (Not Detect) Ur Barbiturates Screen (Not Detect) Ur Phencyclidine Scrn (Not Detect) Ur Amphetamines Screen (Not Detect) U Benzodiazepines Scrn (Not Detect) Urine Cocaine Screen (Not Detect) U Marijuana (THC) Screen (Not Detect) 11/13/21 11/13/21 11/13/21 Range/Units 01:57 02:06 02:06 WBC (4.8-10.8) X10*3/uL RBC (4.60-5.80) X10*6/uL Hgb (14.0-18.0) g/dl Hct (42.0-52.0) % MCV (80.0-98.0) fL MCH (27.0-33.0) pg MCHC (31.0-36.0) g/dl RDW (11.0-16.0) % Plt Count (160-400) X10*3/uL MPV (9.4-12.4) fL Immature Gran % (Auto) (0.0-0.4) % Neut % (Auto) (45-73) % Lymph % (Auto) (20-40) % [place] % (Auto) (2-11) % Eos % (Auto) (0-4) % Baso % (Auto) (0-2) % Lymph # (Auto) (1.2-4.9) X10*3/uL [place] # (Auto) (0.1-1.2) X10*3/uL Eos # (Auto) (0.0-0.4) X10*3/uL Baso # (Auto) (0.0-0.2) X10*3/uL Abs Immat Gran (auto) (0.00-0.03) X10*3/uL Absolute Neuts (auto) (2.0-8.3) x10*3/uL Absolute Nucleated RBC (0.0-0.012) X10*3/uL Nucleated RBC % (auto) (0.0-0.2) /100WBC Sodium (135-145) mmol/L Potassium (3.3-5.1) mmol/L Chloride (96-108) mmol/L Carbon Dioxide (22-29) mmol/L Anion Gap (12-20) BUN (9-16) mg/dL Creatinine (0.5-1.4) mg/dL Estim Creat Clear Calc Estimated GFR POC Glucose 221 H (60-115) mg/dL Random Glucose (60-115) mg/dL Calcium (8.4-10.2) mg/dL Troponin I High Sens (<3.5-35.0) ng/L Urine Color Yellow Urine Appearance Clear Urine pH 6.0 (5.0-9.0) Ur Specific [place] 1.025 (1.005-1.025) Urine Protein Trace (Neg-Trace) mg/dL Urine Glucose (UA) 100 H (Negative) mg/dL Urine Ketones Negative (Negative) mg/dL Urine Blood Negative (Negative) Urine Nitrite Negative (Negative) Ur Leukocyte Esterase Negative (Negative) Urine Opiates Screen POSITIVE H (Not Detect) Urine Fentanyl Screen POSITIVE H (Not Detect) Ur Barbiturates Screen Not Detected (Not Detect) Ur Phencyclidine Scrn Not Detected (Not Detect) Ur Amphetamines Screen Not Detected (Not Detect) U Benzodiazepines Scrn Not Detected (Not Detect) Urine Cocaine Screen POSITIVE H (Not Detect) U Marijuana (THC) Screen POSITIVE H (Not Detect) 11/13/21 Range/Units 07:36 WBC (4.8-10.8) X10*3/uL RBC (4.60-5.80) X10*6/uL Hgb (14.0-18.0) g/dl Hct (42.0-52.0) % MCV (80.0-98.0) fL MCH (27.0-33.0) pg MCHC (31.0-36.0) g/dl RDW (11.0-16.0) % Plt Count (160-400) X10*3/uL MPV (9.4-12.4) fL Immature Gran % (Auto) (0.0-0.4) % Neut % (Auto) (45-73) % Lymph % (Auto) (20-40) % [place] % (Auto) (2-11) % Eos % (Auto) (0-4) % Baso % (Auto) (0-2) % Lymph # (Auto) (1.2-4.9) X10*3/uL [place] # (Auto) (0.1-1.2) X10*3/uL Eos # (Auto) (0.0-0.4) X10*3/uL Baso # (Auto) (0.0-0.2) X10*3/uL Abs Immat Gran (auto) (0.00-0.03) X10*3/uL Absolute Neuts (auto) (2.0-8.3) x10*3/uL Absolute Nucleated RBC (0.0-0.012) X10*3/uL Nucleated RBC % (auto) (0.0-0.2) /100WBC Sodium (135-145) mmol/L Potassium (3.3-5.1) mmol/L Chloride (96-108) mmol/L Carbon Dioxide (22-29) mmol/L Anion Gap (12-20) BUN (9-16) mg/dL Creatinine (0.5-1.4) mg/dL Estim Creat Clear Calc Estimated GFR POC Glucose (60-115) mg/dL Random Glucose (60-115) mg/dL Calcium (8.4-10.2) mg/dL Troponin I High Sens 5.2 (<3.5-35.0) ng/L Urine Color Urine Appearance Urine pH (5.0-9.0) Ur Specific [place] (1.005-1.025) Urine Protein (Neg-Trace) mg/dL Urine Glucose (UA) (Negative) mg/dL Urine Ketones (Negative) mg/dL Urine Blood (Negative) Urine Nitrite (Negative) Ur Leukocyte Esterase (Negative) Urine Opiates Screen (Not Detect) Urine Fentanyl Screen (Not Detect) Ur Barbiturates Screen (Not Detect) Ur Phencyclidine Scrn (Not Detect) Ur Amphetamines Screen (Not Detect) U Benzodiazepines Scrn (Not Detect) Urine Cocaine Screen (Not Detect) U Marijuana (THC) Screen (Not Detect) ECG Data ECG #1: Attestation: I personally reviewed and interpreted this ECG as follows: ECG interpretation date: 11/13/21 ECG interpretation time: 08:32 Interpretation: Rate: 103 Rhythm: sinus tachycardia Omro: normal Normal P waves. Normal VENUS. Normal QRS complex. ST T wave : no POP, inverted t waves inf leads qTC: normal prior studies: unchanged oct 2021 The study has been interpreted contemporaneously by me. . Discharge Plan Discharge Clinical Impression: Cocaine abuse, Atypical chest pain, Opiate abuse, continuous Patient Disposition: Home, Self-Care Instructions: Chest Pain (ED), Cocaine Abuse (ED), Opioid Use Disorder (ED) Additional Instructions: return to ED for any worsening symptoms or concerns follow up with the suboxone clinic here [facility] [phone] Prescriptions: New lidocaine 5 % adhesive patch,medicated 1 patch topical DAILY Qty: 30 0RF Rx Instructions: leave on most painful area for up to 12 hrs fluconazole [Diflucan] 150 mg tablet 150 mg PO DAILY Qty: 1 0RF Rx Instructions: take 11/16 No Action diclofenac sodium 1 % gel 2 ea topical BID PRN (Reason: Pain) Qty: 30 0RF Rx Instructions: apply to bilaterial knees (DME) lancets 28 gauge misc See Rx Instructions topical TID Qty: 100 0RF Rx Instructions: As directed metoprolol tartrate 50 mg tablet 100 mg PO BID Qty: 60 0RF (DME) pen needle, diabetic 31 gauge x 3/16 needle See Rx Instructions subcut .MEDSUPPLY Qty: 50 3RF Rx Instructions: One daily (DME) FreeStyle Test Strip See Rx Instructions .Route Qty: 100 0RF Rx Instructions: TID Lantus Solostar U-100 Insulin 100 unit/mL (3 mL) insulin pen 30 unit subcut BEDTIME Qty: 15 2RF albuterol sulfate 90 mcg/actuation HFA aerosol inhaler 2 puff PO Q8H PRN (Reason: shortness of breath or wheezing) 30 Days Qty: 8.5 3RF (DME) FreeStyle Lite Strips Strip See Rx Instructions .ROUTE .MEDSUPPLY Qty: 100 12RF Rx Instructions: As directed three times a day metformin 1,000 mg tablet 1,000 mg PO BID Qty: 60 0RF buspirone 30 mg tablet 30 mg PO TID Qty: 90 1RF tamsulosin 0.4 mg capsule 0.4 mg PO DAILY Qty: 30 1RF quetiapine 50 mg tablet 50 mg PO BEDTIME Qty: 30 0RF lisinopril 30 mg tablet 30 mg PO DAILY Qty: 90 0RF escitalopram oxalate 20 mg tablet 20 mg PO DAILY Qty: 30 1RF hydroxyzine HCl 25 mg tablet 25 mg PO TID PRN (Reason: for anxiety) Qty: 90 0RF Eliquis 5 mg tablet 5 mg PO BID Qty: 60 0RF tramadol 50 mg tablet 50 mg PO TID PRN (Reason: pain) 30 Days Qty: 90 0RF dulaglutide 0.75 mg/0.5 mL pen injector 0.75 mg subcut QWEEK Qty: 2 1RF zolpidem 10 mg tablet 10 mg PO BEDTIME PRN (Reason: insomnia) 30 Days Qty: 30 1RF efinaconazole 10 % solution with applicator 1 appl topical BEDTIME 336 Days 0RF clotrimazole 1 % cream 1 appl topical TID Qty: 30 0RF (DME) BACK BRACE XL See Rx Instructions .Route .MEDSUPPLY Qty: 1 0RF Rx Instructions: As directed cetirizine 10 mg tablet 10 mg PO DAILY PRN (Reason: allergy symptoms) 90 Days Qty: 90 3RF lidocaine 5 % adhesive patch,medicated 2 patch topical DAILY PRN (Reason: pain) Qty: 60 5RF Rx Instructions: leave on most painful area for up to 12 hrs. keep off for 12 hrs
[2021-11-13] MEDS: Fluconazole 150 MG TABLET PO (08:23)
== END 2021-11-13 08:52 | disposition home or self-care (01) ==
PROVIDERS: Emergency Provider Emergency Medicine
DX: F11.188 Opioid abuse with other opioid-induced disorder (principal); F14.10 Cocaine abuse, uncomplicated; R07.89 Other chest pain; R42 Dizziness and giddiness; Z79.899 Other long term (current) drug therapy
CPT/HCPCS: 36415; 71045; 80048; 80307; 81003; 82947; 84484; 85025; 93005; 99284

== ENCOUNTER 2021-12-07 18:33 | Emergency (ER) | payer OTHER, SELFPAY ==
--- NOTE | ~2021-12-07 | XR_ITS ---
EXAMINATION: XR CHEST CLINICAL INFORMATION: Edema COMPARISON: 11/13/2021 TECHNIQUE: Frontal view of the chest was obtained. FINDINGS: Normal symmetric lung volumes. No parenchymal consolidation. No pleural effusion. No pneumothorax. Cardiomediastinal silhouette and pulmonary vascularity are within normal limits. No acute osseous abnormalities. XR/XR chest 1V IMPRESSION: No acute findings.
--- NOTE | ~2021-12-07 | US_ITS ---
EXAMINATION: US VENOUS ULTRASOUND WITH DOPPLER LOWER EXTREMITY, BILATERAL CLINICAL INFORMATION: Bilateral lower extremity pain and swelling COMPARISON: None TECHNIQUE: Ultrasound of the deep veins is performed from the hip to the calf with compression sonography and color and pulse Doppler assessment. Spectral analysis with color-flow imaging is performed. FINDINGS: RIGHT: There is normal venous compression and respiratory variation and augmented flow. The visualized common femoral vein, superficial femoral vein, profunda femoral vein, popliteal vein, and the trifurcation region shows no evidence of deep venous thrombosis. Limited views of the peroneal veins secondary to body habitus. There is no significant popliteal fossa cyst. LEFT: There is normal venous compression and respiratory variation and augmented flow. The visualized common femoral vein, superficial femoral vein, profunda femoral vein, popliteal vein, and the trifurcation region shows no evidence of deep venous thrombosis. Limited views of the peroneal veins secondary to body habitus. There is no significant popliteal fossa cyst. If the patient's symptoms persist, followup ultrasound in 5 days 7 days might be of value to exclude proximal propagation from a non-visualized calf vein. US/US venous duplex LE IMPRESSION: No DVT demonstrated in either lower extremity.
[2021-12-07 21:42] VITALS: BP 132/66; PULSE 78; RESP 18; TEMP 36.1; O2SAT 98; BMI 43.9
[2021-12-07 22:17] LABS: MANUAL DIFF FLAG NO
[2021-12-07 22:18] LABS: Basophils Percent Auto 0.2 % (0-2); Eosinophils Absolute Auto 0.1 X10*3/uL (0.0-0.4); Eosinophils Percent Auto 1.1 % (0-4); Hematocrit 39.3 % (42.0-52.0); Hemoglobin 13.3 g/dl (14.0-18.0); Imm Gran Abs Auto 0.03 X10*3/uL (0.00-0.03); Imm Gran Pct Auto 0.4 % (0.0-0.4); Lymphocytes Absolute Auto 1.9 X10*3/uL (1.2-4.9); Lymphocytes Percent Auto 22.6 % (20-40); Mean Corpuscular HGB Conc 33.8 g/dl (31.0-36.0); Mean Corpuscular Volume 88.5 fL (80.0-98.0); Mean Platelet Volume 9.7 fL (9.4-12.4); Monocytes Absolute Auto 0.6 X10*3/uL (0.1-1.2); Monocytes Percent Auto 6.8 % (2-11); Neutrophils Absolute Auto 5.8 x10*3/uL (2.0-8.3); Neutrophils Percent Auto 68.9 % (45-73); Platelet Count 282 X10*3/uL (160-400); Red Blood Count 4.44 X10*6/uL (4.60-5.80); Red Cell Distribution Width 12.4 % (11.0-16.0); White Blood Count 8.4 X10*3/uL (4.8-10.8)
[2021-12-07 22:50] LABS: Alanine Aminotransferase 30 U/L (0-40); Alkaline Phosphatase 104 U/L (39-117); Anion Gap 15 (12-20); Aspartate Amino Transferase 20 U/L (5-37); Bilirubin Total < 0.2 mg/dL (0.0-1.0); Blood Urea Nitrogen 16 mg/dL (9-16); Calcium 8.9 mg/dL (8.4-10.2); Carbon Dioxide 28 mmol/L (22-29); Chloride 100 mmol/L (96-108); Creatinine Clr Calc Pharmacy 100.2; Estimated Glomerular Filt Rate 59; Glucose Random 326 mg/dL (60-115); Potassium 4.8 mmol/L (3.3-5.1); Sodium 138 mmol/L (135-145); Total Protein 6.7 g/dL (6.5-8.0)
[2021-12-08 01:18] VITALS: BP 157/66; PULSE 73; RESP 19; TEMP 37.1; O2SAT 98
--- OUTSIDE RECORDS SUMMARY | 2021-12-08 03:00 | XMS_ITS | Continuity of Care Document ---
:1970 Author Organization [facility] Address [address] [place] [address]- Care Team Providers Name Role Phone Julio Carter MD Primary Care Phys[place] [facility] [place]20 [facility] [address] [place], [place] [address] Attending Physician: Mansi Church Admitting Physician: Mansi Church Referring Physician: Admtr, Mansi Allergies, Adverse Reactions, Alerts Substance Reaction Severity Status penicillin Active Immunizations Not Given Vaccine Date Status Refusal Reason pneumococcal 23-valent vaccine 12/12/19 Not Given P atient Refuses Medications albuterol (OP) = 8.5 Gm, Inhalation, Every 6 hours, PRN Wheezing/Shortness of Breath, 0 Refills, Maintenance, 2 Start Date: 12/11/19 Status: OrderedamLODIPine 5 mg oral tablet 5 mg, 1, tablet, By Mouth, Daily, Refills 0, Maintenance, 12/11/19 22:33:00 EDT Start Date: 12/11/19 Status: Orderedaspirin 81 mg oral delayed release tablet 81 mg, 1, tablet, By Mouth, Daily, Refills 0, Maintenance, 12/11/19 22:29:00 EDT Start Date: 12/11/19 Status: Orderedatorvastatin 40 mg oral tablet 1 tablet = 40 mg, By Mouth, Daily at bedtime, 0 Refills, Maintenance, 12/11/19 22:29:00 EDT Start Date: 12/11/19 Status: OrderedBasaglar KwikPen 100 units/mL subcutaneous solution = 30 units, Subcutaneous Injection, Daily at bedtime, # 12 mL, 0 Refills, Maintenance, 07/29/20 16:26:00 EDT, Solution, [facility], Partial fill upon patient request if the prescription is for a schedule II opioid drug., 180, cm, 07/11... Start Date: 07/29/20 Status: Orderedescitalopram 20 mg oral tablet 1 tablet = 20 mg, By Mouth, Daily, 0 Refills, Maintenance, 12/11/19 22:34:00 EDT Start Date: 12/11/19 Status: OrderedInsulin Glargine = 30 units, Subcutaneous Infusion, Daily at bedtime, 0 Refills, Maintenance, 12/11/19 22:34:00 EDT Start Date: 12/11/19 Status: OrderedJanuvia 100 mg oral tablet 1 tablet = 100 mg, By Mouth, Daily, # 30 tablet, 0 Refills, Maintenance, 12/12/19 16:49:00 EDT, Tablet Start Date: 12/12/19 Status: OrderedLisinopril = 30 mg, By Mouth, Daily, 0 Refills, Maintenance, 12/11/19 22:35:00 EDT Start Date: 12/11/19 Status: OrderedMetformin = 1,000 mg, By Mouth, 2 times a day, 0 Refills, Maintenance, 12/11/19 22:35:00 EDT Start Date: 12/11/19 Status: OrderedMetoprolol Succinate ER 25 mg oral tablet, extended release 1 tablet = 25 mg, By Mouth, Daily, # 30 tablet, 0 Refills, Maintenance, 12/12/19 16:49:00 EDT, ER Tablet Start Date: 12/12/19 Status: Orderednaloxone 4 mg/0.1 mL nasal spray = 4 mg, Nares, Both, Once, 0 Refills, Maintenance, 12/11/19 22:48:00 EDT Start Date: 12/11/19 Status: Orderedtamsulosin 0.4 mg oral capsule 0.4 mg, 1, capsule, By Mouth, Daily at bedtime, Refills 0, Maintenance, 12/11/19 22:36:00 EDT Start Date: 12/11/19 Status: OrderedTrulicity Pen 0.75 mg/0.5 mL subcutaneous solution = 0.75 mg, Subcutaneous Injection, Every Sunday, 0 Refills, Maintenance, 12/11/19 22:50:00 EDT Start Date: 12/11/19 Status: Ordered
--- OUTSIDE RECORDS SUMMARY | 2021-12-08 03:00 | XMS_ITS | Continuity of Care Document ---
:1970 Author Organization [facility] Address [address] [place] [address]- Care Team Providers Name Role Phone Julio Carter MD Primary Care Physician Encounter [facility] [place] Date(s): 07/29/20 - 08/05/20 [facility] [address] [place] [address]- Encounter Diagnosis Balanoposthitis (Discharge Diagnosis) - 07/29/20 Diabetes (Discharge Diagnosis) - 07/29/20 Attending Physician: Serena Gomez MD Referring Physician: Julio Carter MD Allergies, Adverse Reactions, Alerts Substance Reaction Severity [...] Refills, Maintenance, 07/29/20 16:26:00 EDT, Solution, [facility], Partial fill upon patient request [...] 22:50:00 EDT Start Date: 12/11/19 Status: Ordered Problem List Diagnosis Diagnosis Type Effective Dates Health Status Clinical In formant Service Balanoposthitis Discharge 07/29/20 Diagnosis Diabetes Discharge 07/29/20 Diagnosis Vital Signs Most recent to oldest [Reference Range]: 1 Height 180 cm (07/29/20 4:12 PM) Oxygen Saturation [94-100 %] 100 % (07/29/20 4:12 PM) Pulse Rate [55-90 bpm] 102 bpm *H* (07/29/20 4:12 PM) Blood Pressure [90-138/55-84 mm Hg] 149/75 mm Hg *H* (07/29/20 4:12 PM) Respiratory Rate [16-30 br/min] 20 br/min (07/29/20 4:12 PM) Temperature [96.8-100.4 DegF] 97.6 DegF (07/29/20 4:12 PM) Mode of Delivery (Oxygen) Room air (07/29/20 4:12 PM) Blood pressure sites Arm, left (07/29/20 4:12 PM) Temperature Route Temporal (07/29/20 4:12 PM)
--- OUTSIDE RECORDS SUMMARY | 2021-12-08 03:00 | XMS_ITS | Continuity of Care Document ---
:1970 Author Organization [facility] Address [address] [place] [id number]- Care Team Providers Name Role Phone Julio Carter MD Primary Care Physician Encounter [facility] [place] Date(s): 12/11/19 - 12/12/[address] [address]- [facility] Encounter Diagnosis Chest pain (Final) - 12/11/19 History of diabetes mellitus (Final) - 12/11/19 Discharge Disposition: A-D/C Home Attending Physician: Anjali Freitas MDmad Admitting Physician: Linda Snyder DO Referring Physician: Not on Staff, Referring MD Allergies, Adverse Reactions, Alerts Substance Reaction [...] 12/11/19 22:29:00 EDT Start Date: 12/11/19 Status: Orderedescitalopram 20 mg oral tablet 1 [...] 22:50:00 EDT Start Date: 12/11/19 Status: Ordered Results Radiology Reports Exam Date Time Procedure Performing Provider Status 12/11/19 5:17 PM Chest 2 Views Frontal and Lat Kris Das; Au th (Verified) Notes:(Chest 2 Views Frontal and Lat) Reason For Exam: AnginaRESULT: Chest 2 Views Frontal and Lat Chest 2 Views Frontal and Lat Hx of Present Illness: sharp chest pain off and on for 2 days; Reason: Angina; Clinical Question(s):CHF COMPARISON: None. FINDINGS: LINES AND TUBES: None. LUNGS AND PLEURA: Low lung volumes with mild basilar atelectasis. Lungs are otherwise clear with no consolidation. No pleural effusion. No pneumothorax. HEART, MEDIASTINUM AND WILLIAM: Heart is normal in size. Normal mediastinal and hilar contour. BONES AND SOFT TISSUES: No acute abnormality. IMPRESSION: No acute abnormality. WSN: [id number] Ordering Physician: Devon Mattson Dictated By: Bin Solis MD Dictated Date/Time: 12/11/19 5:24 pm Reviewed By: Bin Solis MD Signed By: Bin Solis MD Signed Date/Time: 12/11/19 5:24 pm Transcribed By: NAKUL Transcribed Date/Time: 12/11/19 5:24 pm Vital Signs Most recent to oldest 1 2 3 4 [Reference Range]: Height 180 cm (12/12/19 11:36 AM) Weight 133.5 kg (12/12/19 11:36 AM) Oxygen Saturation 98 % 99 % 98 % [94-100 %] (12/12/19 11:22 AM) (12/12/19 8:21 AM) (12/12/19 4:25 AM) Pulse Rate [55-90 bpm] 69 bpm 64 bpm 64 bpm (12/12/19 11:22 AM) (12/12/19 9:19 AM) (12/12/19 8:21 AM) Blood Pressure 138/73 mm Hg 139/68 mm Hg 139/68 mm Hg 139/68 mm Hg [90-138/55-84 mm Hg] (12/12/19 11:22 AM) *H* *H* * H* (12/12/19 9:20 AM) (12/12/19 9:19 AM) (12/11 9:19 AM) Respiratory Rate [16-30 20 br/min 18 br/min 20 br/min br/min] (12/12/19 11:45 AM) (12/12/19 11:22 AM) (12/12/19 8:21 AM ) Temperature [96.8-100.4 98.4 DegF 98.2 DegF 97.7 DegF DegF] (12/12/19 11:22 AM) (12/12/19 8:21 AM) (12/12/19 4:25 AM) Mode of Delivery Room air Room air Room air (Oxygen) (12/12/19 11:22 AM) (12/12/19 8:21 AM) (12/12/19 4:25 AM) Blood pressure sites Arm, left Leg, right Arm, left (12/12/19 11:22 AM) (12/12/19 8:21 AM) (12/12/19 4:25 AM) Temperature Route Oral Oral Oral (12/12/19 11:22 AM) (12/12/19 8:21 AM) (12/12/19 4:25 AM)
[2021-12-08 03:05] LABS: Glucose, Whole Blood 263 mg/dL (60-115)
[2021-12-08 03:06] VITALS: BP 156/81; PULSE 76; RESP 20; O2SAT 99
[2021-12-08 05:55] VITALS: BP 148/63; PULSE 78; RESP 20; O2SAT 98
--- NOTE | 2021-12-08 06:38 | ED_ITS ---
HPI - Extremity Problem General Chief complaint: General Medical Stated complaint: knee pain, ankles swollen ,redness Time Seen by Provider: 12/08/21 06:38 Source: patient Mode of arrival: ambulatory Limitations: no limitations History of Present Illness HPI Narrative: 51yo male with hx of opioid use disorder, hyperglycemia, DM, BPH, depression, obesity, seizures - he also notes he used to be on eliquis but stopped taking and cannot tell me why notes he has been having worsening swelling of both legs with redness over the past couple of months - his girl told him to come get it checked out. MD Complaint: extremity pain and extremity swelling Onset (ago): month(s) (2+) Pain Consistency: constant Location: left, right and lower extremity Quality: aching Radiation: none Relieving factors: immobilization Exacerbating factors: walking Associated symptoms: other (LE edema, redness) Context: other (unsure if he had a blood clot was on eliquis) Related Data Previous Rx's Medication Instructions Recorded clotrimazole 1 % topical cream 1 appl topical TID #30 grams 12/07/20 diclofenac sodium 1 % topical gel 2 ea topical BID PRN Pain #30 grams 12/08/20 blood sugar diagnostic (FreeStyle #100 ea 02/07/21 Test strips) lancets 28 gauge #100 ea 02/07/21 metoprolol tartrate 50 mg tablet 100 mg PO BID #60 tabs 02/07/21 pen needle, diabetic 31 gauge x #50 ea 02/07/21/ cetirizine 10 mg tablet 10 mg PO DAILY PRN allergy 02/14/21 symptoms 90 days #90 tabs efinaconazole 10 % topical 1 appl topical BEDTIME 48 weeks 04/09/21 solution with applicator BACK BRACE #1 ea 04/29/21 lidocaine 5 % topical patch 2 patch topical DAILY PRN pain #60 06/08/21 ea insulin glargine 100 unit/mL (3 30 unit (0.3 mL) subcut BEDTIME 07/15/21 mL) subcutaneous pen (Lantus #15 mL Solostar U-100 Insulin) albuterol sulfate 90 mcg/actuation 2 puff PO Q8H PRN shortness of 07/25/21 aerosol inhaler breath or wheezing 30 days #8.5 grams blood sugar diagnostic (FreeStyle #100 ea 07/28/21 Lite Strips) metformin 1,000 mg tablet 1,000 mg PO BID #60 tabs 09/07/21 buspirone 30 mg tablet 30 mg PO TID #90 tabs 09/13/21 tamsulosin 0.4 mg capsule 0.4 mg PO DAILY #30 caps 10/10/21 lisinopril 30 mg tablet 30 mg PO DAILY #90 tabs 10/27/21 dulaglutide 0.75 mg/0.5 mL 0.75 mg (0.5 mL) subcut QWEEK #2 mL 11/07/21 subcutaneous pen injector zolpidem 10 mg tablet 10 mg PO BEDTIME PRN insomnia 30 11/07/21 days #30 tabs fluconazole 150 mg tablet 150 mg PO DAILY #1 tab 11/13/21 (Diflucan) lidocaine 5 % topical patch 1 patch topical DAILY #30 ea 11/13/21 tramadol 50 mg tablet 50 mg PO TID PRN pain 30 days #90 11/16/21 tabs hydroxyzine HCl 25 mg tablet 25 mg PO TID PRN for anxiety #90 11/28/21 tabs apixaban 5 mg tablet (Eliquis) 5 mg PO BID #60 tabs 12/04/21 escitalopram oxalate 20 mg tablet 20 mg PO DAILY #30 tabs 12/05/21 quetiapine 50 mg tablet 50 mg PO BEDTIME #30 tabs 12/07/21 cefuroxime axetil 500 mg tablet 500 mg PO TID 7 days #21 tabs 12/08/21 richard.stocking,knee,reg,xlrg #12 ea 12/08/21 furosemide 20 mg tablet (Lasix) 20 mg PO DAILY 4 days #4 tabs 12/08/21 Allergies Allergy/AdvReac Type Severity Reaction Status Date / Time Penicillins [PENICILLINS] Allergy Unknown RASH Verified 11/13/21 02:08 Review of Systems Review of Systems: Constitutional : No Fever, No Chills ENT/Mouth : No Ear Pain, No Hoarseness, No sore throat Eyes: No Eye Pain, No Swelling, No Redness, No Foreign Body Cardiovascular : No Chest Pain, No SOB, pos edema Respiratory : No Cough, No Dyspnea Gastrointestinal : No Nausea, No Vomiting, No Diarrhea, No abdominal Pain Genitourinary : No Dysuria, No Hematuria Musculoskeletal : positive joint pain, No Myalgias, No Joint Swelling Skin : No Skin lacerations, pos rash Neuro : No Weakness, No Numbness, No Loss of Consciousness, No Dizziness, No Headache Psych : No Anxiety/Panic, No Depression Heme/Lymph: no easy bruising, no Lymphadenopathy Endocrine : No Polyuria, No Polydipsia All other systems reviewed and are negative [facility] Past Medical History Attestation statement: The following information was validated with the patient. Medical History Anxiety Arthritis Asthma Benign essential hypertension BPH (benign prostatic hyperplasia) Depression Diabetes Family history of thyroid disorder Insomnia Lumbar degenerative disc disease Morbid obesity with BMI of 40.0-44.9, adult Overactive bladder Primary osteoarthritis of both knees Seizure Substance abuse Type 2 diabetes mellitus with hyperglycemia Surgical History No history of previous surgery Family History Family History Father ETOH abuse Mother Diabetes Arthritis of knee Hypertension Other Mental health problem Substance abuse Social History Social History Household Members: Other Household Members Other:: room Housing: Other Housing Other:: Room Do you presently have visiting nurse or other home services: No Alcohol intake: current Alcohol intake frequency: holidays/special occasions only Patient Tobacco Use Status: Never used Tobacco Second Hand Smoke Exposure: Yes Substance Use Type: Heroin and Marijuana Advance Directives: No Advance Directives Information Provided: No service: No Current occupational status: disabled Cognitive needs: No Hearing needs: No Vision needs: No Physical Exam Vital Signs: Vital Signs: Last Vital Signs Temp 98.7 F 12/08/21 01:18 Pulse 84 12/08/21 08:58 Resp 18 12/08/21 08:58 BP 158/66 H 12/08/21 08:58 Pulse Ox 98 12/08/21 08:58 O2 Del Method 12/08/21 08:58 BMI result Body Mass Index 43.9 Appearance: Alert. Oriented X3. No acute distress. Eyes: Pupils equal, round and reactive to light. ENT: Pharynx normal. Neck: Normal inspection. Neck supple. CVS: Normal heart rate and rhythm. Pulses normal. Respiratory: No respiratory distress. Breath sounds normal. Abdomen: Soft and nontender. Skin: Skin warm and dry. Normal skin color. Normal skin turgor. Extremities: 1+ pitting edeme bilateral LE redness on anterior bilateral shins mild warmth medial aspect 2+ DP pulses Neuro: Oriented X 3. No motor deficit. No sensory deficit. Course Course Course Narrative: will start on low dose lasix, cephalexin and compression stockings - trop negative, bnp negative, DVT negative, no fevers/no WBC count MDM - Extremity (Nontraumatic) MDM Narrative Medical decision making narrative: 51yo male with hx of opioid use disorder, hyperglycemia, DM, BPH, depression, obesity, seizures here with LE edema and redness - at this time will need labs, EKG, DVT study, he has no fevers or wbc count possibly able to star ton oral medications and diuretics. Lab Data Result diagrams: 12/07/21 22:12 12/07/21 22:12 Labs: Lab Results 12/07/21 12/07/21 12/08/21 Range/Units 22:12 22:12 03:00 WBC 8.4 (4.8-10.8) X10*3/uL RBC 4.44 L (4.60-5.80) X10*6/uL Hgb 13.3 L (14.0-18.0) g/dl Hct 39.3 L (42.0-52.0) % MCV 88.5 (80.0-98.0) fL MCH 30.0 (27.0-33.0) pg MCHC 33.8 (31.0-36.0) g/dl RDW 12.4 (11.0-16.0) % Plt Count 282 (160-400) X10*3/uL MPV 9.7 (9.4-12.4) fL Immature Gran % (Auto) 0.4 (0.0-0.4) % Neut % (Auto) 68.9 (45-73) % Lymph % (Auto) 22.6 (20-40) % Converse % (Auto) 6.8 (2-11) % Eos % (Auto) 1.1 (0-4) % Baso % (Auto) 0.2 (0-2) % Lymph # (Auto) 1.9 (1.2-4.9) X10*3/uL [place]verse # (Auto) 0.6 (0.1-1.2) X10*3/uL Eos # (Auto) 0.1 (0.0-0.4) X10*3/uL Baso # (Auto) 0.0 (0.0-0.2) X10*3/uL Abs Immat Gran (auto) 0.03 (0.00-0.03) X10*3/uL Absolute Neuts (auto) 5.8 (2.0-8.3) x10*3/uL Absolute Nucleated RBC 0.000 (0.0-0.012) X10*3/uL Nucleated RBC % (auto) 0.0 (0.0-0.2) /100WBC PT (10.0-13.1) SEC INR (0.9-1.1) Sodium 138 (135-145) mmol/L Potassium 4.8 (3.3-5.1) mmol/L Chloride 100 (96-108) mmol/L Carbon Dioxide 28 (22-29) mmol/L Anion Gap 15 (12-20) BUN 16 (9-16) mg/dL Creatinine 1.29 (0.5-1.4) mg/dL Estim Creat Clear Calc 100.2 Estimated GFR 59 POC Glucose 263 H (60-115) mg/dL Random Glucose 326 H D (60-115) mg/dL Lactic Acid (0.5-2.0) mmol/L Calcium 8.9 D (8.4-10.2) mg/dL Total Bilirubin < 0.2 (0.0-1.0) mg/dL AST 20 (5-37) U/L ALT 30 (0-40) U/L Alkaline Phosphatase 104 D (39-117) U/L Troponin I High Sens (<3.5-35.0) ng/L B-Natriuretic Peptide (<100) pg/mL Total Protein 6.7 (6.5-8.0) g/dL Albumin 4.0 (3.5-5.0) g/dL COVID-19 (DG) (Negative) COVID-19 Clin Com 12/08/21 12/08/21 12/08/21 Range/Units 08:08 08:08 08:08 WBC (4.8-10.8) X10*3/uL RBC (4.60-5.80) X10*6/uL Hgb (14.0-18.0) g/dl Hct (42.0-52.0) % MCV (80.0-98.0) fL MCH (27.0-33.0) pg MCHC (31.0-36.0) g/dl RDW (11.0-16.0) % Plt Count (160-400) X10*3/uL MPV (9.4-12.4) fL Immature Gran % (Auto) (0.0-0.4) % Neut % (Auto) (45-73) % Lymph % (Auto) (20-40) % Converse % (Auto) (2-11) % Eos % (Auto) (0-4) % Baso % (Auto) (0-2) % Lymph # (Auto) (1.2-4.9) X10*3/uL Converse # (Auto) (0.1-1.2) X10*3/uL Eos # (Auto) (0.0-0.4) X10*3/uL Baso # (Auto) (0.0-0.2) X10*3/uL Abs Immat Gran (auto) (0.00-0.03) X10*3/uL Absolute Neuts (auto) (2.0-8.3) x10*3/uL Absolute Nucleated RBC (0.0-0.012) X10*3/uL Nucleated RBC % (auto) (0.0-0.2) /100WBC PT 10.5 (10.0-13.1) SEC INR 0.9 (0.9-1.1) Sodium (135-145) mmol/L Potassium (3.3-5.1) mmol/L Chloride (96-108) mmol/L Carbon Dioxide (22-29) mmol/L Anion Gap (12-20) BUN (9-16) mg/dL Creatinine (0.5-1.4) mg/dL Estim Creat Clear Calc Estimated GFR POC Glucose (60-115) mg/dL Random Glucose (60-115) mg/dL Lactic Acid 1.7 (0.5-2.0) mmol/L Calcium (8.4-10.2) mg/dL Total Bilirubin (0.0-1.0) mg/dL AST (5-37) U/L ALT (0-40) U/L Alkaline Phosphatase (39-117) U/L Troponin I High Sens (<3.5-35.0) ng/L B-Natriuretic Peptide (<100) pg/mL Total Protein (6.5-8.0) g/dL Albumin (3.5-5.0) g/dL COVID-19 (DG) Negative (Negative) COVID-19 Clin Com See Note 12/08/21 12/08/21 Range/Units 08:08 09:04 WBC (4.8-10.8) X10*3/uL RBC (4.60-5.80) X10*6/uL Hgb (14.0-18.0) g/dl Hct (42.0-52.0) % MCV (80.0-98.0) fL MCH (27.0-33.0) pg MCHC (31.0-36.0) g/dl RDW (11.0-16.0) % Plt Count (160-400) X10*3/uL MPV (9.4-12.4) fL Immature Gran % (Auto) (0.0-0.4) % Neut % (Auto) (45-73) % Lymph % (Auto) (20-40) % Converse % (Auto) (2-11) % Eos % (Auto) (0-4) % Baso % (Auto) (0-2) % Lymph # (Auto) (1.2-4.9) X10*3/uL Converse # (Auto) (0.1-1.2) X10*3/uL Eos # (Auto) (0.0-0.4) X10*3/uL Baso # (Auto) (0.0-0.2) X10*3/uL Abs Immat Gran (auto) (0.00-0.03) X10*3/uL Absolute Neuts (auto) (2.0-8.3) x10*3/uL Absolute Nucleated RBC (0.0-0.012) X10*3/uL Nucleated RBC % (auto) (0.0-0.2) /100WBC PT (10.0-13.1) SEC INR (0.9-1.1) Sodium (135-145) mmol/L Potassium (3.3-5.1) mmol/L Chloride (96-108) mmol/L Carbon Dioxide (22-29) mmol/L Anion Gap (12-20) BUN (9-16) mg/dL Creatinine (0.5-1.4) mg/dL Estim Creat Clear Calc Estimated GFR POC Glucose 292 H (60-115) mg/dL Random Glucose (60-115) mg/dL Lactic Acid (0.5-2.0) mmol/L Calcium (8.4-10.2) mg/dL Total Bilirubin (0.0-1.0) mg/dL AST (5-37) U/L ALT (0-40) U/L Alkaline Phosphatase (39-117) U/L Troponin I High Sens < 3.5 (<3.5-35.0) ng/L B-Natriuretic Peptide 15 (<100) pg/mL Total Protein (6.5-8.0) g/dL Albumin (3.5-5.0) g/dL COVID-19 (DG) (Negative) COVID-19 Clin Com ECG Data Attestation EKG: I personally reviewed and interpreted this ECG as follows: ECG interpretation date: 12/08/21 ECG interpretation time: 07:57 Interpretation: Rate: 71 Rhythm: NSR [place]: normal Normal P waves. Normal VENUS. Normal QRS complex. ST T wave : inverted t waves in inf leads no POP qTC: normal prior studies: unchanged from prior The study has been interpreted contemporaneously by me. . Discharge Plan Discharge Clinical Impression: Pedal edema Cellulitis Qualifiers: Site of cellulitis: extremity Site of cellulitis of extremity: lower extremity Laterality: unspecified laterality Qualified Code(s): L03.119 - Cellulitis of unspecified part of limb Patient Disposition: Home, Self-Care Instructions: Cellulitis (ED), Leg Edema (ED) Additional Instructions: return to ED for any worsening symptoms or concerns keep legs elevated, wear soccer socks or compression stockings to help with swelling please follow up with your doctor in the next week no blood clot seen, normal liver/kidneys no signs of heart failure Prescriptions: New cefuroxime axetil 500 mg tablet 500 mg PO TID 7 Days Qty: 21 0RF furosemide [Lasix] 20 mg tablet 20 mg PO DAILY 4 Days Qty: 4 0RF (DME) richard.stocking,knee,reg,xlrg Misc See Rx Instructions .Route Qty: 12 0RF Rx Instructions: As directed No Action diclofenac sodium 1 % gel 2 ea topical BID PRN (Reason: Pain) Qty: 30 0RF Rx Instructions: apply to bilaterial knees (DME) lancets 28 gauge misc See Rx Instructions topical TID Qty: 100 0RF Rx Instructions: As directed metoprolol tartrate 50 mg tablet 100 mg PO BID Qty: 60 0RF (DME) pen needle, diabetic 31 gauge x 3/16 needle See Rx Instructions subcut .MEDSUPPLY Qty: 50 3RF Rx Instructions: One daily (DME) FreeStyle Test Strip See Rx Instructions .Route Qty: 100 0RF Rx Instructions: TID Lantus Solostar U-100 Insulin 100 unit/mL (3 mL) insulin pen 30 unit subcut BEDTIME Qty: 15 2RF albuterol sulfate 90 mcg/actuation HFA aerosol inhaler 2 puff PO Q8H PRN (Reason: shortness of breath or wheezing) 30 Days Qty: 8.5 3RF (DME) FreeStyle Lite Strips Strip See Rx Instructions .ROUTE .MEDSUPPLY Qty: 100 12RF Rx Instructions: As directed three times a day metformin 1,000 mg tablet 1,000 mg PO BID Qty: 60 0RF buspirone 30 mg tablet 30 mg PO TID Qty: 90 1RF tamsulosin 0.4 mg capsule 0.4 mg PO DAILY Qty: 30 1RF lisinopril 30 mg tablet 30 mg PO DAILY Qty: 90 0RF dulaglutide 0.75 mg/0.5 mL pen injector 0.75 mg subcut QWEEK Qty: 2 1RF zolpidem 10 mg tablet 10 mg PO BEDTIME PRN (Reason: insomnia) 30 Days Qty: 30 1RF tramadol 50 mg tablet 50 mg PO TID PRN (Reason: pain) 30 Days Qty: 90 0RF hydroxyzine HCl 25 mg tablet 25 mg PO TID PRN (Reason: for anxiety) Qty: 90 0RF Eliquis 5 mg tablet 5 mg PO BID Qty: 60 1RF escitalopram oxalate 20 mg tablet 20 mg PO DAILY Qty: 30 1RF quetiapine 50 mg tablet 50 mg PO BEDTIME Qty: 30 0RF efinaconazole 10 % solution with applicator 1 appl topical BEDTIME 336 Days 0RF clotrimazole 1 % cream 1 appl topical TID Qty: 30 0RF lidocaine 5 % adhesive patch,medicated 1 patch topical DAILY Qty: 30 0RF Rx Instructions: leave on most painful area for up to 12 hrs fluconazole [Diflucan] 150 mg tablet 150 mg PO DAILY Qty: 1 0RF Rx Instructions: take 11/16 (DME) BACK BRACE XL See Rx Instructions .Route .MEDSUPPLY Qty: 1 0RF Rx Instructions: As directed cetirizine 10 mg tablet 10 mg PO DAILY PRN (Reason: allergy symptoms) 90 Days Qty: 90 3RF lidocaine 5 % adhesive patch,medicated 2 patch topical DAILY PRN (Reason: pain) Qty: 60 5RF Rx Instructions: leave on most painful area for up to 12 hrs. keep off for 12 hrs Referrals: Julio Carter MD [Primary Care Provider] - 1 week Stand Alone Forms: Work/School Release
--- NOTE | 2021-12-08 06:48 | PC.NURSE ---
POC done 263.
--- NOTE | 2021-12-08 07:10 | ECG_ITS ---
Test Reason : LE EDEMA Blood Pressure : / mmHG Vent. Rate : 071 BPM Atrial Rate : 071 BPM P-R Int : 160 ms QRS Dur : 106 ms QT Int : 398 ms P-R-T Axes : -08 044 -18 degrees QTc Int : 432 ms Normal sinus rhythm Abnormal QRS-T angle, consider primary T wave abnormality Abnormal ECG When compared with ECG of 13-NOV-2021 01:46, Criteria for Inferior infarct are no longer Present Referred By: Chioma De León Electronically Signed By:JOSE CRUZ PONCE
[2021-12-08 08:23] LABS: INTERNATIONAL NORM RATIO 0.9 (0.9-1.1); Prothrombin Time 10.5 SEC (10.0-13.1)
[2021-12-08 08:46] LABS: COVID-19 Test Negative (Negative); IDNOW Serial# 9DB6401D
[2021-12-08 08:48] LABS: Lactic Acid 1.7 mmol/L (0.5-2.0)
[2021-12-08 08:58] VITALS: BP 158/66; PULSE 84; RESP 18; O2SAT 98
[2021-12-08 09:04] LABS: B Type Natriuretic Peptide 15 pg/mL (<100); Troponin-I High Sensitivity < 3.5 ng/L (<3.5-35.0)
[2021-12-08 09:08] LABS: Glucose, Whole Blood 292 mg/dL (60-115)
== END 2021-12-08 10:09 | disposition home or self-care (01) ==
PROVIDERS: Emergency Provider Emergency Medicine; PCP Internal Medicine
DX: R60.0 Localized edema (principal); L03.116 Cellulitis of left lower limb; L03.115 Cellulitis of right lower limb; Z20.822 Contact with and (suspected) exposure to COVID-19; M79.605 Pain in left leg; M79.604 Pain in right leg; E11.9 Type 2 diabetes mellitus without complications; I10 Essential (primary) hypertension; F11.10 Opioid abuse, uncomplicated; E66.01 Morbid (severe) obesity due to excess calories; Z68.41 Body mass index [BMI] 40.0-44.9, adult; Z79.4 Long term (current) use of insulin; Z79.899 Other long term (current) drug therapy
CPT/HCPCS: 36415; 71045; 80053; 82947; 83605; 83880; 84484; 85025; 85610; 87040; 87635; 93005; 93970; 99284

== ENCOUNTER 2021-12-20 17:56 | Emergency (ER) | payer OTHER, SELFPAY ==
[2021-12-20 17:58] VITALS: BP 199/84; PULSE 111; RESP 18; TEMP 36.7; O2SAT 97; BMI 43.6
[2021-12-20 18:35] LABS: Appearance Urine Clear; Color Urine Yellow; Glucose Urine UA >=1000 mg/dL (Negative); Leukocyte Esterase Urine Negative (Negative); Nitrite Urine Negative (Negative); PH 5.5 (5.0-9.0); Specific Gravity - Urine >= 1.030 (1.005-1.025); UMIC TRIGGER UACC YES; Urine Blood Trace (Negative); Urine Ketones Negative (Negative); Urine Protein Trace mg/dL (Neg-Trace)
[2021-12-20 18:39] LABS: Bacteria Urine None Seen (None Seen); Hyaline Casts Urine 0-2 /LPF (0-2); Squamous Epithelial Cell Urine 0-2 /HPF (0-2); WBC Urine 0-5 /HPF (0-5)
[2021-12-20 23:44] VITALS: BP 138/74; PULSE 89; RESP 18; TEMP 37; O2SAT 97
[2021-12-20 23:49] LABS: Glucose, Whole Blood 167 mg/dL (60-115)
--- NOTE | 2021-12-20 23:49 | PC.NURSE ---
Triage called patient in for re-eval. Pt A&Ox3, skin warm and dry, respirations even and unlabored without distress noted. Pt endorses continued penile pain adding that he is having difficulty pulling his foreskin back to void. Pt concerned about his blood sugar as he reports it was in the high 200s earlier today and how he has not eaten; repeat POC was 167. Pt provided with food and beverage per request as he reports not having funds to get anything from the vending machine. VSS at this time, pt aware to notify staff with any changes and/or concerns.
--- NOTE | 2021-12-21 00:30 | ED_ITS ---
HPI - Male Genitourinary General Chief complaint: Urogenital-Male Stated complaint: alex infection ? Time Seen by Provider: 12/21/21 00:01 History of Present Illness HPI Narrative: Patient is a 51-year-old male with a long history of diabetes. Long history of arthritis. Patient is worried about STDs as well. There is no penile discharge. But noticed his foreskin to be grossly swollen with a moist appearance. Patient claims it is extremely tender. Similar to previous bouts. He wants to be treated with a pill. He is from home. There is no fever no chills no cough no congestion or upper respiratory symptoms. Also complaining of chronic pain to his bilateral knee. He was given Voltaren gel previously and wants it again. Patient denies any bowel urinary incontinence denies any focal weakness. Related Data Previous Rx's Medication Instructions Recorded clotrimazole 1 % topical cream 1 appl topical TID #30 grams 12/07/20 diclofenac sodium 1 % topical gel 2 ea topical BID PRN Pain #30 grams 12/08/20 blood sugar diagnostic (FreeStyle #100 ea 02/07/21 Test strips) lancets 28 gauge #100 ea 02/07/21 metoprolol tartrate 50 mg tablet 100 mg PO BID #60 tabs 02/07/21 pen needle, diabetic 31 gauge x #50 ea 02/07/2105/25 cetirizine 10 mg tablet 10 mg PO DAILY PRN allergy 02/14/21 symptoms 90 days #90 tabs efinaconazole 10 % topical 1 appl topical BEDTIME 48 weeks 04/09/21 solution with applicator BACK BRACE #1 ea 04/29/21 lidocaine 5 % topical patch 2 patch topical DAILY PRN pain #60 06/08/21 ea insulin glargine 100 unit/mL (3 30 unit (0.3 mL) subcut BEDTIME 07/15/21 mL) subcutaneous pen (Lantus #15 mL Solostar U-100 Insulin) albuterol sulfate 90 mcg/actuation 2 puff PO Q8H PRN shortness of 07/25/21 aerosol inhaler breath or wheezing 30 days #8.5 grams blood sugar diagnostic (FreeStyle #100 ea 07/28/21 Lite Strips) metformin 1,000 mg tablet 1,000 mg PO BID #60 tabs 09/07/21 buspirone 30 mg tablet 30 mg PO TID #90 tabs 09/13/21 tamsulosin 0.4 mg capsule 0.4 mg PO DAILY #30 caps 10/10/21 lisinopril 30 mg tablet 30 mg PO DAILY #90 tabs 10/27/21 dulaglutide 0.75 mg/0.5 mL 0.75 mg (0.5 mL) subcut QWEEK #2 mL 11/07/21 subcutaneous pen injector zolpidem 10 mg tablet 10 mg PO BEDTIME PRN insomnia 30 11/07/21 days #30 tabs fluconazole 150 mg tablet 150 mg PO DAILY #1 tab 11/13/21 (Diflucan) lidocaine 5 % topical patch 1 patch topical DAILY #30 ea 11/13/21 tramadol 50 mg tablet 50 mg PO TID PRN pain 30 days #90 11/16/21 tabs hydroxyzine HCl 25 mg tablet 25 mg PO TID PRN for anxiety #90 11/28/21 tabs apixaban 5 mg tablet (Eliquis) 5 mg PO BID #60 tabs 12/04/21 escitalopram oxalate 20 mg tablet 20 mg PO DAILY #30 tabs 12/05/21 quetiapine 50 mg tablet 50 mg PO BEDTIME #30 tabs 12/07/21 cefuroxime axetil 500 mg tablet 500 mg PO TID 7 days #21 tabs 12/08/21 richard.stocking,knee,reg,xlrg #12 ea 12/08/21 furosemide 20 mg tablet (Lasix) 20 mg PO DAILY 4 days #4 tabs 12/08/21 clotrimazole 1 % topical cream 1 appl topical BID 21 weeks #15 12/21/21 grams diclofenac sodium 1 % topical gel 2 g topical QID #100 grams 12/21/21 (Voltaren Arthritis Pain) fluconazole 150 mg tablet 150 mg PO QWEEK yeast infection 2 12/21/21 (Diflucan) doses #2 tabs Allergies Allergy/AdvReac Type Severity Reaction Status Date / Time Penicillins [PENICILLINS] Allergy Unknown RASH Verified 11/13/21 02:08 Review of Systems Review of Systems: Positive pain to the penis patient is not circumcised Positive pain to bilateral knee. No bowel urinary incontinence no focal weakness. Yes all other systems are reviewed and are negative [facility] Past Medical History Attestation statement: The following information was validated with the patient. Medical History Anxiety Arthritis Asthma Benign essential hypertension BPH (benign prostatic hyperplasia) Depression Diabetes Family history of thyroid disorder Insomnia Lumbar degenerative disc disease Morbid obesity with BMI of 40.0-44.9, adult Overactive bladder Primary osteoarthritis of both knees Seizure Substance abuse Type 2 diabetes mellitus with hyperglycemia Surgical History No history of previous surgery Family History Family History Father ETOH abuse Mother Diabetes Arthritis of knee Hypertension Other Mental health problem Substance abuse Social History Social History Household Members: Other Household Members Other:: room Housing: Other Housing Other:: Room Do you presently have visiting nurse or other home services: No Alcohol intake: current Alcohol intake frequency: holidays/special occasions only Patient Tobacco Use Status: Never used Tobacco Second Hand Smoke Exposure: Yes Substance Use Type: Heroin and Marijuana Advance Directives: No Advance Directives Information Provided: No service: No Current occupational status: disabled Cognitive needs: No Hearing needs: No Vision needs: No Physical Exam Vital Signs: Vital Signs: Last Vital Signs Temp 98.6 F 12/20/21 23:44 Pulse 89 12/20/21 23:44 Resp 18 12/20/21 23:44 BP 138/74 12/20/21 23:44 Pulse Ox 97 12/20/21 23:44 O2 Del Method 12/20/21 23:44 BMI result Body Mass Index 43.6 Appearance: Alert. Oriented X3. No acute distress. Eyes: Pupils equal, round and reactive to light. ENT: Pharynx normal. Neck: Normal inspection. Neck supple. No lymph nodes noted. No crepitus CVS: Normal heart rate and rhythm. Pulses normal. Normal S1 and S2 Respiratory: No respiratory distress. Breath sounds normal. No Wheezing. No rales Abdomen: Soft and nontender. No rigidity. No distention. good BS x4 Examination of the genital area there is swelling of the foreskin. The foreskin appears to be moist. Is appear to be swollen. Mildly tender to touch. There is no discharge from the penis. There is no testicular tenderness elicited on palpation. Skin: Skin warm and dry. Normal skin color. Normal skin turgor. Extremities: No lower extremity edema. Neurovascular intact to all extremities. No Lacerations. No Rash Neuro: Oriented X 3. No motor deficit. No sensory deficit. Moving all extermities. No slurred speech MDM - Male Genitourinary MDM Narrative Medical decision making narrative: For the knee pain there is no bowel urinary incontinence is no focal weakness. Pain is chronic. Has a history of being on Voltaren gel. Will prescribe the same. In addition balantis. Will give a dose of Diflucan now and 1 dose in 1 week. Will also prescribe cream for the infection. In stable condition. Will discharge home. Medical Records Attestation: I reviewed the patient's medical records. Lab Data Attestation: I reviewed the patient's lab results. Labs: Lab Results 12/20/21 12/20/21 Range/Units 18:21 23:41 POC Glucose 167 H (60-115) mg/dL Urine Color Yellow Urine Appearance Clear Urine pH 5.5 (5.0-9.0) Ur Specific [place] >= 1.030 H (1.005-1.025) Urine Protein Trace (Neg-Trace) mg/dL Urine Glucose (UA) >=1000 H (Negative) mg/dL Urine Ketones Negative (Negative) mg/dL Urine Blood Trace H (Negative) Urine Nitrite Negative (Negative) Ur Leukocyte Esterase Negative (Negative) Urine RBC 6-10 H (0-2) /HPF Urine WBC 0-5 (0-5) /HPF Ur Squamous Epith Cells 0-2 (0-2) /HPF Urine Bacteria None Seen (None Seen) Hyaline Casts 0-2 (0-2) /LPF Discharge Plan Discharge Clinical Impression: Balanitis Patient Disposition: Home, Self-Care Instructions: Balanitis (ED) Prescriptions: New fluconazole [Diflucan] 150 mg tablet 150 mg PO QWEEK Qty: 2 0RF clotrimazole 1 % cream 1 appl topical BID 147 Days Qty: 15 0RF diclofenac sodium [Voltaren Arthritis Pain] 1 % gel 2 g topical QID Qty: 100 0RF Rx Instructions: apply to single elbow, wrist or hand; for hand includes palm/fingers/back of hand No Action diclofenac sodium 1 % gel 2 ea topical BID PRN (Reason: Pain) Qty: 30 0RF Rx Instructions: apply to bilaterial knees (DME) lancets 28 gauge misc See Rx Instructions topical TID Qty: 100 0RF Rx Instructions: As directed metoprolol tartrate 50 mg tablet 100 mg PO BID Qty: 60 0RF (DME) pen needle, diabetic 31 gauge x 3/16 needle See Rx Instructions subcut .MEDSUPPLY Qty: 50 3RF Rx Instructions: One daily (DME) FreeStyle Test Strip See Rx Instructions .Route Qty: 100 0RF Rx Instructions: TID Lantus Solostar U-100 Insulin 100 unit/mL (3 mL) insulin pen 30 unit subcut BEDTIME Qty: 15 2RF albuterol sulfate 90 mcg/actuation HFA aerosol inhaler 2 puff PO Q8H PRN (Reason: shortness of breath or wheezing) 30 Days Qty: 8.5 3RF (DME) FreeStyle Lite Strips Strip See Rx Instructions .ROUTE .MEDSUPPLY Qty: 100 12RF Rx Instructions: As directed three times a day metformin 1,000 mg tablet 1,000 mg PO BID Qty: 60 0RF buspirone 30 mg tablet 30 mg PO TID Qty: 90 1RF tamsulosin 0.4 mg capsule 0.4 mg PO DAILY Qty: 30 1RF lisinopril 30 mg tablet 30 mg PO DAILY Qty: 90 0RF dulaglutide 0.75 mg/0.5 mL pen injector 0.75 mg subcut QWEEK Qty: 2 1RF zolpidem 10 mg tablet 10 mg PO BEDTIME PRN (Reason: insomnia) 30 Days Qty: 30 1RF tramadol 50 mg tablet 50 mg PO TID PRN (Reason: pain) 30 Days Qty: 90 0RF hydroxyzine HCl 25 mg tablet 25 mg PO TID PRN (Reason: for anxiety) Qty: 90 0RF Eliquis 5 mg tablet 5 mg PO BID Qty: 60 1RF escitalopram oxalate 20 mg tablet 20 mg PO DAILY Qty: 30 1RF quetiapine 50 mg tablet 50 mg PO BEDTIME Qty: 30 0RF efinaconazole 10 % solution with applicator 1 appl topical BEDTIME 336 Days 0RF cefuroxime axetil 500 mg tablet 500 mg PO TID 7 Days Qty: 21 0RF furosemide [Lasix] 20 mg tablet 20 mg PO DAILY 4 Days Qty: 4 0RF (DME) richard.stocking,knee,reg,xlrg Misc See Rx Instructions .Route Qty: 12 0RF Rx Instructions: As directed clotrimazole 1 % cream 1 appl topical TID Qty: 30 0RF lidocaine 5 % adhesive patch,medicated 1 patch topical DAILY Qty: 30 0RF Rx Instructions: leave on most painful area for up to 12 hrs fluconazole [Diflucan] 150 mg tablet 150 mg PO DAILY Qty: 1 0RF Rx Instructions: take 11/16 (DME) BACK BRACE XL See Rx Instructions .Route .MEDSUPPLY Qty: 1 0RF Rx Instructions: As directed cetirizine 10 mg tablet 10 mg PO DAILY PRN (Reason: allergy symptoms) 90 Days Qty: 90 3RF lidocaine 5 % adhesive patch,medicated 2 patch topical DAILY PRN (Reason: pain) Qty: 60 5RF Rx Instructions: leave on most painful area for up to 12 hrs. keep off for 12 hrs Referrals: Julio Carter MD [Primary Care Provider] -
[2021-12-21 03:29] LABS: CT PCR NOT DETECTED (Not Detect.); NG PCR NOT DETECTED (Not Detect.)
== END 2021-12-21 00:56 | disposition home or self-care (01) ==
PROVIDERS: Emergency Provider Emergency Medicine Emergency Medical Services; PCP Internal Medicine
DX: N48.1 Balanitis (principal); Z79.899 Other long term (current) drug therapy; Z79.01 Long term (current) use of anticoagulants
CPT/HCPCS: 81001; 82947; 87491; 87591; 99283

== ENCOUNTER → 2022-01-13 13:09 | Outpatient (BNVA) | payer OTHER, SELFPAY | PROVIDERS: PCP Internal Medicine; Visit Provider Internal Medicine Endocrinology, Diabetes & Metabolism | DX: E11.65 Type 2 diabetes mellitus with hyperglycemia (principal); E11.01 Type 2 diabetes mellitus with hyperosmolarity with coma; I10 Essential (primary) hypertension; Z79.4 Long term (current) use of insulin | CPT/HCPCS: 82947; 83036; 96372; 99212; J1815 ==

== ENCOUNTER 2022-02-22 17:46 | Observation (INO) | payer OTHER, SELFPAY ==
[2022-02-22 18:10] VITALS: BP 177/88; PULSE 111; RESP 20; TEMP 36.6; O2SAT 95; BMI 42.1
--- NOTE | 2022-02-22 18:14 | ED_ITS ---
HPI - General Adult General Chief complaint: Skin/Abscess/Foreign Body <Niki Goodman NP - Last Filed: 02/22/22 18:18> Stated complaint: Infection?/ Knee pain/ Multiple complaints <Niki Goodman NP - Last Filed: 02/22/22 18:18> Time Seen by Provider: 02/22/22 19:56 <Niki Goodman NP - Last Filed: 02/22/22 18:18> Source: patient <Andria Aquino MD - Last Filed: 02/22/22 21:33> Mode of arrival: ambulatory <Andria Aquino MD - Last Filed: 02/22/22 21:33> Limitations: no limitations <Andria Aquino MD - Last Filed: 02/22/22 21:33> History of Present Illness HPI narrative: 51-year-old male history of poorly controlled type 2 diabetes, on Eliquis for atrial fibrillation with recurrent cellulitis and balanitis presented today with feeling generalized weakness and subjective fever been having swelling and redness to his uncircumcised penis for candidal infection. Patient also been having redness and hotness to both lower extremities around the ankle area right worse than left. <Andria Aquino MD - Last Filed: 02/22/22 21:33> Related Data Home medications: Previous Rx's Medication Instructions Recorded lancets 28 gauge #100 ea 02/07/21 metoprolol tartrate 50 mg tablet 100 mg PO BID #60 tabs 02/07/21 pen needle, diabetic 31 gauge x #50 ea 02/07/2105/25 cetirizine 10 mg tablet 10 mg PO DAILY PRN allergy 02/14/21 symptoms 90 days #90 tabs BACK BRACE #1 ea 04/29/21 albuterol sulfate 90 mcg/actuation 2 puff PO Q8H PRN shortness of 07/25/21 aerosol inhaler breath or wheezing 30 days #8.5 grams blood sugar diagnostic (FreeStyle #100 ea 07/28/21 Lite Strips) buspirone 30 mg tablet 30 mg PO TID #90 tabs 09/13/21 tamsulosin 0.4 mg capsule 0.4 mg PO DAILY #30 caps 10/10/21 escitalopram oxalate 20 mg tablet 20 mg PO DAILY #30 tabs 12/05/21 quetiapine 50 mg tablet 50 mg PO BEDTIME #30 tabs 12/07/21 clotrimazole 1 % topical cream 1 appl topical BID 21 weeks #15 12/21/21 grams diclofenac sodium 1 % topical gel 2 g topical QID #100 grams 12/21/21 (Voltaren Arthritis Pain) [email or web address],knee,reg,xlrg #12 ea 01/12/22 lidocaine 5 % topical patch 2 patch topical DAILY PRN pain #60 01/12/22 ea metformin 1,000 mg tablet 1,000 mg PO BID #60 tabs 01/12/22 blood-glucose meter (FreeStyle #1 ea 01/13/22 Edwards Lite kit) dulaglutide 1.5 mg/0.5 mL 1.5 mg (0.5 mL) subcut QWEEK #2 mL 01/13/22 subcutaneous pen injector (Trulicity) insulin glargine 100 unit/mL (3 30 unit (0.3 mL) subcut BEDTIME 01/13/22 mL) subcutaneous pen (Lantus #15 mL Solostar U-100 Insulin) lisinopril 30 mg tablet 30 mg PO DAILY #90 tabs 01/25/22 apixaban 5 mg tablet (Eliquis) 5 mg PO BID #60 tabs 01/28/22 tramadol 50 mg tablet 50 mg PO TID PRN pain 30 days #90 02/14/22 tabs zolpidem 10 mg tablet 10 mg PO BEDTIME PRN insomnia 30 02/14/22 days #30 tabs furosemide 20 mg tablet (Lasix) 20 mg PO DAILY 15 days #15 tabs 02/16/22 hydroxyzine HCl 25 mg tablet 25 mg PO TID PRN for anxiety #90 02/20/22 tabs <Niki Goodman NP - Last Filed: 02/22/22 18:18> Allergies/adverse reactions: Allergies Allergy/AdvReac Type Severity Reaction Status Date / Time Penicillins [PENICILLINS] Allergy Unknown RASH Verified 01/13/22 13:29 <Niki Goodman NP - Last Filed: 02/22/22 18:18> Review of Systems Review of Systems: All other systems are reviewed and are negative Constitutional: Reports as per HPI and Reports no additional constitutional complaints Eyes: Reports as per HPI and Reports no additional eye complaints Reports system reviewed and no additional complaints, except as documented Cardiovascular: Reports as per HPI and Reports no additional cardiovascular complaints Respiratory: Reports as per HPI and Reports no additional respiratory complaints Gastrointestinal: Reports as per HPI and Reports no additional gastrointestinal complaints Genitourinary: Reports no additional female genitourinary complaints Musculoskeletal: Reports no additional musculoskeletal complaints Skin/Breast: Reports system reviewed and no additional complaints, except as docu Psychiatric: Reports no additional psychiatric complaints Endocrine: Reports no additional endocrine complaints Hematologic/Lymphatic: Reports no additional hematologic/lymphatic complaints Allergic/Immunologic: Reports no additional allergic/immunologic complaints Reports system reviewed and no additional complaints, except as documented and Reports Abnormal speech present <Andria Aquino MD - Last Filed: 02/22/22 21:33> [facility] Past Medical History Medical History: Medical History Anxiety Arthritis Asthma Benign essential hypertension BPH (benign prostatic hyperplasia) Depression Diabetes Family history of thyroid disorder Insomnia Lumbar degenerative disc disease Morbid obesity with BMI of 40.0-44.9, adult Overactive bladder Paroxysmal atrial fibrillation with rapid ventricular response Polysubstance abuse Primary osteoarthritis of both knees Seizure Substance abuse Type 2 diabetes mellitus with hyperglycemia <Niki Goodman NP - Last Filed: 02/22/22 18:18> Surgical History: Surgical History No history of previous surgery <Niki Goodman NP - Last Filed: 02/22/22 18:18> Family History Family History: Family History Father ETOH abuse Mother Diabetes Arthritis of knee Hypertension Other Mental health problem Substance abuse <Niki Goodman NP - Last Filed: 02/22/22 18:18> Social History Social History: Social History Household Members: Other Household Members Other:: room Housing: Other Housing Other:: Room Do you presently have visiting nurse or other home services: No Alcohol intake: current Alcohol intake frequency: holidays/special occasions only Patient Tobacco Use Status: Never used Tobacco e-Cigarette/Vaping Use: Never Used Second Hand Smoke Exposure: Yes Substance Use Type: Heroin and Marijuana Advance Directives: No Advance Directives Information Provided: No service: No Current occupational status: disabled Cognitive needs: No Hearing needs: No Vision needs: No <Niki Goodman NP - Last Filed: 02/22/22 18:18> Physical Exam ED Vital Signs: Vital Signs - 24 hr 02/22/22 18:10 02/22/22 20:49 Temperature 97.8 F 98.3 F Pulse Rate 111 H 95 Respiratory Rate 20 14 Blood Pressure 177/88 H 185/72 H Pulse Oximetry 95 91 L Oxygen Delivery Method Room Air Room Air BMI result Body Mass Index 42.1 <Niki Goodman NP - Last Filed: 02/22/22 18:18> Vital Signs - 24 hr 02/22/22 18:10 02/22/22 20:49 Temperature 97.8 F 98.3 F Pulse Rate 111 H 95 Respiratory Rate 20 14 Blood Pressure 177/88 H 185/72 H Pulse Oximetry 95 91 L Oxygen Delivery Method Room Air Room Air BMI result Body Mass Index 42.1 Vital signs have been reviewed as appeared to be correct. Blood pressure normal. Heart rate elevated. Respiration rate normal. Temperature normal. Oxygen saturation normal. <Andria Aquino MD - Last Filed: 02/22/22 21:33> Appearance: Alert. Oriented X3. No acute distress. Head: Normal external exam. Normocephalic. Atraumatic. No Bañuelos signs noted. No raccoon eyes noted Eyes: PERRLA. EOMI. Conjunctiva and sclera normal. Eyelids normal. ENT: TM's Normal. Pharynx normal. Uvula midline. Moist mucous membranes. No trismus noted. No drooling noted. No muffled voice noted. Neck: Normal inspection. Neck supple. FROM. No adenopathy. Thyroid Normal. No meningeal signs. No neck mass noted. CVS: Normal heart rate and rhythm. Heart sound normal. No murmurs noted. Pulses normal throughout. Respiratory: No respiratory distress. Painless inspiration. Breath sounds normal. No wheezes/rales/rhonchi noted. Chest nontender. No accessory muscle usage noted or decreased air movement noted. Abdomen: Soft and nontender. Bowel sounds normal in all 4 quadrants. No distention noted. No organomegaly noted. No visible injury noted. exam: Uncircumcised, with redness hotness at the glans of penis area with white coating to the glans of penis. Back: No CVA tenderness. Full range of motion noted. Skin: Skin warm and dry. Normal skin color. Normal skin turgor. No rashes/lesions/lacerations noted. Extremities: No lower extremity edema. Area of redness, hotness, tenderness on the medial aspect of bilateral ankle, no apparent infection in the perineal area. Neuro: Oriented X 3. Cranial nerve exam: II-XII are grossly intact No motor deficit. No sensory deficit. Reflexes normal. <Andria Aquino MD - Last Filed: 02/22/22 21:33> Course Course Course Narrative: This is a rapid medical exam. Deferred ROS, PE, HPI to primary provider. 51yo male with hx of opioid use disorder, hyperglycemia, DM, BPH, depression, obesity, seizures, afib on eliquis here with multiple complaints here with complaints of bilateral knee pain, lower back pain, bilateral leg swelling, penis pain/redness/swelling. VSS. <Niki Goodman NP - Last Filed: 02/22/22 18:18> Reevaluation(s) Reevaluation #1: 51-year-old male with bilateral lower extremities cellulitis and candid balanitis patient meets criteria for sirs will start the patient on IV fluid and antibiotic will also start antifungal medication. Admit <Andria Auqino MD - Last Filed: 02/22/22 21:33> Time: 20:15 <Andria Aquino MD - Last Filed: 02/22/22 21:33> Medications Administered Discontinued Medications Generic Name Dose Route Start Last Admin Trade Name Freq PRN Reason Stop Dose Admin Sodium Chloride 1,000 mls @ 999 mls/hr 02/22/22 20:02 02/22/22 20:37 Ns IV 02/22/22 21:02 999 mls/hr .Q1H1M ONE Administration Doxycycline Hyclate 100 mg/ 250 mls @ 166.67 mls/hr 02/22/22 20:02 02/22/22 20:46 Sodium Chloride IV 02/22/22 21:31 166.67 mls/hr ONCE ONE Administration Nystatin 1 appl 02/22/22 20:02 02/22/22 21:26 Nystatin Cream 15 Gm Tube TOPICAL 02/22/22 20:03 1 appl ONCE ONE Administration Protocol <Niki Goodman NP - Last Filed: 02/22/22 18:18> Medications Administered Discontinued Medications Generic Name Dose Route Start Last Admin Trade Name Freq PRN Reason Stop Dose Admin Sodium Chloride 1,000 mls @ 999 mls/hr 02/22/22 20:02 02/22/22 20:37 Ns IV 02/22/22 21:02 999 mls/hr .Q1H1M ONE Administration Doxycycline Hyclate 100 mg/ 250 mls @ 166.67 mls/hr 02/22/22 20:02 02/22/22 20:46 Sodium Chloride IV 02/22/22 21:31 166.67 mls/hr ONCE ONE Administration Nystatin 1 appl 02/22/22 20:02 02/22/22 21:26 Nystatin Cream 15 Gm Tube TOPICAL 02/22/22 20:03 1 appl ONCE ONE Administration Protocol <Andria Aquino MD - Last Filed: 02/22/22 21:33> Medical Decision Making Differential Diagnosis Differential Diagnoses: The differential diagnosis associated with the presentation includes (Balanitis/cellulitis/sepsis/uncontrolled diabetes) <Andria Aquino MD - Last Filed: 02/22/22 21:33> Admission/Observation Consideration of admission/observation: Escalation of care including admission/observation considered <Andria Aquino MD - Last Filed: 02/22/22 21:33> Consult Healthcare Provider Management of the patient was discussed with: Hospitalist (juventino) <Andria Aquino MD - Last Filed: 02/22/22 21:33> Lab Data MDM Lab Attestation statement: I reviewed the patient's lab results. <Andria Aquino MD - Last Filed: 02/22/22 21:33> Result Diagrams: : 02/22/22 19:31 02/22/22 19:31 <Niki Goodman NP - Last Filed: 02/22/22 18:18> Labs: Lab Results 12/14/22 12/14/22 12/14/22 Range/Units 19:31 19:31 19:31 WBC 18.6 H (4.8-10.8) X10*3/uL RBC 4.98 (4.60-5.80) X10*6/uL Hgb 14.7 (14.0-18.0) g/dl Hct 42.7 (42.0-52.0) % MCV 85.7 (80.0-98.0) fL MCH 29.5 (27.0-33.0) pg MCHC 34.4 (31.0-36.0) g/dl RDW 11.9 (11.0-16.0) % Plt Count 316 (160-400) X10*3/uL MPV 9.5 (9.4-12.4) fL Immature Gran % (Auto) 0.4 (0.0-0.4) % Neut % (Auto) 77.9 H (45-73) % Lymph % (Auto) 15.7 L (20-40) % [place] % (Auto) 5.3 (2-11) % Eos % (Auto) 0.4 (0-4) % Baso % (Auto) 0.3 (0-2) % Lymph # (Auto) 2.9 (1.2-4.9) X10*3/uL [place] # (Auto) 1.0 (0.1-1.2) X10*3/uL Eos # (Auto) 0.1 (0.0-0.4) X10*3/uL Baso # (Auto) 0.1 (0.0-0.2) X10*3/uL Abs Immat Gran (auto) 0.07 H (0.00-0.03) X10*3/uL Absolute Neuts (auto) 14.5 H (2.0-8.3) x10*3/uL Absolute Nucleated RBC 0.000 (0.0-0.012) X10*3/uL Nucleated RBC % (auto) 0.0 (0.0-0.2) /100WBC Sodium 138 (135-145) mmol/L Potassium 4.6 (3.3-5.1) mmol/L Chloride 101 (96-108) mmol/L Carbon Dioxide 28 (22-29) mmol/L Anion Gap 14 (12-20) BUN 16 (9-16) mg/dL Creatinine 1.03 (0.5-1.4) mg/dL Estim Creat Clear Calc 122.6 Estimated GFR > 60 Random Glucose 276 H (60-115) mg/dL Lactic Acid (0.5-2.0) mmol/L Calcium 9.9 D (8.4-10.2) mg/dL Magnesium 2.0 (1.6-2.6) mg/dL Total Bilirubin 0.4 (0.0-1.0) mg/dL Direct Bilirubin 0.2 (0.0-0.5) mg/dL AST 15 (5-37) U/L ALT 24 (0-40) U/L Alkaline Phosphatase 105 (39-117) U/L B-Natriuretic Peptide 18 (<100) pg/mL Total Protein 7.2 (6.5-8.0) g/dL Albumin 4.4 (3.5-5.0) g/dL Urine Color Urine Appearance Urine pH (5.0-9.0) Ur Specific [place] (1.005-1.025) Urine Protein (Neg-Trace) mg/dL Urine Glucose (UA) (Negative) mg/dL Urine Ketones (Negative) mg/dL Urine Blood (Negative) Urine Nitrite (Negative) Ur Leukocyte Esterase (Negative) Urine RBC (0-2) /HPF Urine WBC (0-5) /HPF Ur Squamous Epith Cells (0-2) /HPF Urine Bacteria (None Seen) Hyaline Casts (0-2) /LPF Urine Opiates Screen (Not Detect) Urine Fentanyl Screen (Not Detect) Ur Barbiturates Screen (Not Detect) Ur Phencyclidine Scrn (Not Detect) Ur Amphetamines Screen (Not Detect) U Benzodiazepines Scrn (Not Detect) Urine Cocaine Screen (Not Detect) U Marijuana (THC) Screen (Not Detect) Influenza Type A (PCR) (Negative) Influenza Type B (PCR) (Negative) RSV RNA Qual (PCR) (Negative) SARS-CoV-2 RNA (RT-PCR) (Negative) 02/22/22 02/22/22 02/22/22 Range/Units 19:31 20:21 20:21 WBC (4.8-10.8) X10*3/uL RBC (4.60-5.80) X10*6/uL Hgb (14.0-18.0) g/dl Hct (42.0-52.0) % MCV (80.0-98.0) fL MCH (27.0-33.0) pg MCHC (31.0-36.0) g/dl RDW (11.0-16.0) % Plt Count (160-400) X10*3/uL MPV (9.4-12.4) fL Immature Gran % (Auto) (0.0-0.4) % Neut % (Auto) (45-73) % Lymph % (Auto) (20-40) % [place] % (Auto) (2-11) % Eos % (Auto) (0-4) % Baso % (Auto) (0-2) % Lymph # (Auto) (1.2-4.9) X10*3/uL [place] # (Auto) (0.1-1.2) X10*3/uL Eos # (Auto) (0.0-0.4) X10*3/uL Baso # (Auto) (0.0-0.2) X10*3/uL Abs Immat Gran (auto) (0.00-0.03) X10*3/uL Absolute Neuts (auto) (2.0-8.3) x10*3/uL Absolute Nucleated RBC (0.0-0.012) X10*3/uL Nucleated RBC % (auto) (0.0-0.2) /100WBC Sodium (135-145) mmol/L Potassium (3.3-5.1) mmol/L Chloride (96-108) mmol/L Carbon Dioxide (22-29) mmol/L Anion Gap (12-20) BUN (9-16) mg/dL Creatinine (0.5-1.4) mg/dL Estim Creat Clear Calc Estimated GFR Random Glucose (60-115) mg/dL Lactic Acid 1.3 (0.5-2.0) mmol/L Calcium (8.4-10.2) mg/dL Magnesium (1.6-2.6) mg/dL Total Bilirubin (0.0-1.0) mg/dL Direct Bilirubin (0.0-0.5) mg/dL AST (5-37) U/L ALT (0-40) U/L Alkaline Phosphatase (39-117) U/L B-Natriuretic Peptide (<100) pg/mL Total Protein (6.5-8.0) g/dL Albumin (3.5-5.0) g/dL Urine Color Yellow Urine Appearance Clear Urine pH 5.5 (5.0-9.0) Ur Specific [place] >= 1.030 H (1.005-1.025) Urine Protein 30 (1+) H (Neg-Trace) mg/dL Urine Glucose (UA) >=1000 H (Negative) mg/dL Urine Ketones Negative (Negative) mg/dL Urine Blood Negative (Negative) Urine Nitrite Negative (Negative) Ur Leukocyte Esterase Negative (Negative) Urine RBC 0-2 (0-2) /HPF Urine WBC 0-5 (0-5) /HPF Ur Squamous Epith Cells 0-2 (0-2) /HPF Urine Bacteria None Seen (None Seen) Hyaline Casts 0-2 (0-2) /LPF Urine Opiates Screen (Not Detect) Urine Fentanyl Screen (Not Detect) Ur Barbiturates Screen (Not Detect) Ur Phencyclidine Scrn (Not Detect) Ur Amphetamines Screen (Not Detect) U Benzodiazepines Scrn (Not Detect) Urine Cocaine Screen (Not Detect) U Marijuana (THC) Screen (Not Detect) Influenza Type A (PCR) NEGATIVE (Negative) Influenza Type B (PCR) NEGATIVE (Negative) RSV RNA Qual (PCR) NEGATIVE (Negative) SARS-CoV-2 RNA (RT-PCR) NEGATIVE (Negative) 02/22/22 Range/Units 20:34 WBC (4.8-10.8) X10*3/uL RBC (4.60-5.80) X10*6/uL Hgb (14.0-18.0) g/dl Hct (42.0-52.0) % MCV (80.0-98.0) fL MCH (27.0-33.0) pg MCHC (31.0-36.0) g/dl RDW (11.0-16.0) % Plt Count (160-400) X10*3/uL MPV (9.4-12.4) fL Immature Gran % (Auto) (0.0-0.4) % Neut % (Auto) (45-73) % Lymph % (Auto) (20-40) % [place] % (Auto) (2-11) % Eos % (Auto) (0-4) % Baso % (Auto) (0-2) % Lymph # (Auto) (1.2-4.9) X10*3/uL [place] # (Auto) (0.1-1.2) X10*3/uL Eos # (Auto) (0.0-0.4) X10*3/uL Baso # (Auto) (0.0-0.2) X10*3/uL Abs Immat Gran (auto) (0.00-0.03) X10*3/uL Absolute Neuts (auto) (2.0-8.3) x10*3/uL Absolute Nucleated RBC (0.0-0.012) X10*3/uL Nucleated RBC % (auto) (0.0-0.2) /100WBC Sodium (135-145) mmol/L Potassium (3.3-5.1) mmol/L Chloride (96-108) mmol/L Carbon Dioxide (22-29) mmol/L Anion Gap (12-20) BUN (9-16) mg/dL Creatinine (0.5-1.4) mg/dL Estim Creat Clear Calc Estimated GFR Random Glucose (60-115) mg/dL Lactic Acid (0.5-2.0) mmol/L Calcium (8.4-10.2) mg/dL Magnesium (1.6-2.6) mg/dL Total Bilirubin (0.0-1.0) mg/dL Direct Bilirubin (0.0-0.5) mg/dL AST (5-37) U/L ALT (0-40) U/L Alkaline Phosphatase (39-117) U/L B-Natriuretic Peptide (<100) pg/mL Total Protein (6.5-8.0) g/dL Albumin (3.5-5.0) g/dL Urine Color Urine Appearance Urine pH (5.0-9.0) Ur Specific [place] (1.005-1.025) Urine Protein (Neg-Trace) mg/dL Urine Glucose (UA) (Negative) mg/dL Urine Ketones (Negative) mg/dL Urine Blood (Negative) Urine Nitrite (Negative) Ur Leukocyte Esterase (Negative) Urine RBC (0-2) /HPF Urine WBC (0-5) /HPF Ur Squamous Epith Cells (0-2) /HPF Urine Bacteria (None Seen) Hyaline Casts (0-2) /LPF Urine Opiates Screen POSITIVE H (Not Detect) Urine Fentanyl Screen POSITIVE H (Not Detect) Ur Barbiturates Screen Not Detected (Not Detect) Ur Phencyclidine Scrn Not Detected (Not Detect) Ur Amphetamines Screen Not Detected (Not Detect) U Benzodiazepines Scrn Not Detected (Not Detect) Urine Cocaine Screen POSITIVE H (Not Detect) U Marijuana (THC) Screen POSITIVE H (Not Detect) Influenza Type A (PCR) (Negative) Influenza Type B (PCR) (Negative) RSV RNA Qual (PCR) (Negative) SARS-CoV-2 RNA (RT-PCR) (Negative) <Niki Goodman NP - Last Filed: 02/22/22 18:18> Lab Results 02/22/22 02/22/22 02/22/22 Range/Units 19:31 19:31 19:31 WBC 18.6 H (4.8-10.8) X10*3/uL RBC 4.98 (4.60-5.80) X10*6/uL Hgb 14.7 (14.0-18.0) g/dl Hct 42.7 (42.0-52.0) % MCV 85.7 (80.0-98.0) fL MCH 29.5 (27.0-33.0) pg MCHC 34.4 (31.0-36.0) g/dl RDW 11.9 (11.0-16.0) % Plt Count 316 (160-400) X10*3/uL MPV 9.5 (9.4-12.4) fL Immature Gran % (Auto) 0.4 (0.0-0.4) % Neut % (Auto) 77.9 H (45-73) % Lymph % (Auto) 15.7 L (20-40) % [place] % (Auto) 5.3 (2-11) % Eos % (Auto) 0.4 (0-4) % Baso % (Auto) 0.3 (0-2) % Lymph # (Auto) 2.9 (1.2-4.9) X10*3/uL [place] # (Auto) 1.0 (0.1-1.2) X10*3/uL Eos # (Auto) 0.1 (0.0-0.4) X10*3/uL Baso # (Auto) 0.1 (0.0-0.2) X10*3/uL Abs Immat Gran (auto) 0.07 H (0.00-0.03) X10*3/uL Absolute Neuts (auto) 14.5 H (2.0-8.3) x10*3/uL Absolute Nucleated RBC 0.000 (0.0-0.012) X10*3/uL Nucleated RBC % (auto) 0.0 (0.0-0.2) /100WBC Sodium 138 (135-145) mmol/L Potassium 4.6 (3.3-5.1) mmol/L Chloride 101 (96-108) mmol/L Carbon Dioxide 28 (22-29) mmol/L Anion Gap 14 (12-20) BUN 16 (9-16) mg/dL Creatinine 1.03 (0.5-1.4) mg/dL Estim Creat Clear Calc 122.6 Estimated GFR > 60 Random Glucose 276 H (60-115) mg/dL Lactic Acid (0.5-2.0) mmol/L Calcium 9.9 D (8.4-10.2) mg/dL Magnesium 2.0 (1.6-2.6) mg/dL Total Bilirubin 0.4 (0.0-1.0) mg/dL Direct Bilirubin 0.2 (0.0-0.5) mg/dL AST 15 (5-37) U/L ALT 24 (0-40) U/L Alkaline Phosphatase 105 (39-117) U/L B-Natriuretic Peptide 18 (<100) pg/mL Total Protein 7.2 (6.5-8.0) g/dL Albumin 4.4 (3.5-5.0) g/dL Urine Color Urine Appearance Urine pH (5.0-9.0) Ur Specific [place] (1.005-1.025) Urine Protein (Neg-Trace) mg/dL Urine Glucose (UA) (Negative) mg/dL Urine Ketones (Negative) mg/dL Urine Blood (Negative) Urine Nitrite (Negative) Ur Leukocyte Esterase (Negative) Urine RBC (0-2) /HPF Urine WBC (0-5) /HPF Ur Squamous Epith Cells (0-2) /HPF Urine Bacteria (None Seen) Hyaline Casts (0-2) /LPF Urine Opiates Screen (Not Detect) Urine Fentanyl Screen (Not Detect) Ur Barbiturates Screen (Not Detect) Ur Phencyclidine Scrn (Not Detect) Ur Amphetamines Screen (Not Detect) U Benzodiazepines Scrn (Not Detect) Urine Cocaine Screen (Not Detect) U Marijuana (THC) Screen (Not Detect) Influenza Type A (PCR) (Negative) Influenza Type B (PCR) (Negative) RSV RNA Qual (PCR) (Negative) SARS-CoV-2 RNA (RT-PCR) (Negative) 02/22/22 02/22/22 02/22/22 Range/Units 19:31 20:21 20:21 WBC (4.8-10.8) X10*3/uL RBC (4.60-5.80) X10*6/uL Hgb (14.0-18.0) g/dl Hct (42.0-52.0) % MCV (80.0-98.0) fL MCH (27.0-33.0) pg MCHC (31.0-36.0) g/dl RDW (11.0-16.0) % Plt Count (160-400) X10*3/uL MPV (9.4-12.4) fL Immature Gran % (Auto) (0.0-0.4) % Neut % (Auto) (45-73) % Lymph % (Auto) (20-40) % [place] % (Auto) (2-11) % Eos % (Auto) (0-4) % Baso % (Auto) (0-2) % Lymph # (Auto) (1.2-4.9) X10*3/uL [place] # (Auto) (0.1-1.2) X10*3/uL Eos # (Auto) (0.0-0.4) X10*3/uL Baso # (Auto) (0.0-0.2) X10*3/uL Abs Immat Gran (auto) (0.00-0.03) X10*3/uL Absolute Neuts (auto) (2.0-8.3) x10*3/uL Absolute Nucleated RBC (0.0-0.012) X10*3/uL Nucleated RBC % (auto) (0.0-0.2) /100WBC Sodium (135-145) mmol/L Potassium (3.3-5.1) mmol/L Chloride (96-108) mmol/L Carbon Dioxide (22-29) mmol/L Anion Gap (12-20) BUN (9-16) mg/dL Creatinine (0.5-1.4) mg/dL Estim Creat Clear Calc Estimated GFR Random Glucose (60-115) mg/dL Lactic Acid 1.3 (0.5-2.0) mmol/L Calcium (8.4-10.2) mg/dL Magnesium (1.6-2.6) mg/dL Total Bilirubin (0.0-1.0) mg/dL Direct Bilirubin (0.0-0.5) mg/dL AST (5-37) U/L ALT (0-40) U/L Alkaline Phosphatase (39-117) U/L B-Natriuretic Peptide (<100) pg/mL Total Protein (6.5-8.0) g/dL Albumin (3.5-5.0) g/dL Urine Color Yellow Urine Appearance Clear Urine pH 5.5 (5.0-9.0) Ur Specific [place] >= 1.030 H (1.005-1.025) Urine Protein 30 (1+) H (Neg-Trace) mg/dL Urine Glucose (UA) >=1000 H (Negative) mg/dL Urine Ketones Negative (Negative) mg/dL Urine Blood Negative (Negative) Urine Nitrite Negative (Negative) Ur Leukocyte Esterase Negative (Negative) Urine RBC 0-2 (0-2) /HPF Urine WBC 0-5 (0-5) /HPF Ur Squamous Epith Cells 0-2 (0-2) /HPF Urine Bacteria None Seen (None Seen) Hyaline Casts 0-2 (0-2) /LPF Urine Opiates Screen (Not Detect) Urine Fentanyl Screen (Not Detect) Ur Barbiturates Screen (Not Detect) Ur Phencyclidine Scrn (Not Detect) Ur Amphetamines Screen (Not Detect) U Benzodiazepines Scrn (Not Detect) Urine Cocaine Screen (Not Detect) U Marijuana (THC) Screen (Not Detect) Influenza Type A (PCR) NEGATIVE (Negative) Influenza Type B (PCR) NEGATIVE (Negative) RSV RNA Qual (PCR) NEGATIVE (Negative) SARS-CoV-2 RNA (RT-PCR) NEGATIVE (Negative) 02/22/22 Range/Units 20:34 WBC (4.8-10.8) X10*3/uL RBC (4.60-5.80) X10*6/uL Hgb (14.0-18.0) g/dl Hct (42.0-52.0) % MCV (80.0-98.0) fL MCH (27.0-33.0) pg MCHC (31.0-36.0) g/dl RDW (11.0-16.0) % Plt Count (160-400) X10*3/uL MPV (9.4-12.4) fL Immature Gran % (Auto) (0.0-0.4) % Neut % (Auto) (45-73) % Lymph % (Auto) (20-40) % [place] % (Auto) (2-11) % Eos % (Auto) (0-4) % Baso % (Auto) (0-2) % Lymph # (Auto) (1.2-4.9) X10*3/uL [place] # (Auto) (0.1-1.2) X10*3/uL Eos # (Auto) (0.0-0.4) X10*3/uL Baso # (Auto) (0.0-0.2) X10*3/uL Abs Immat Gran (auto) (0.00-0.03) X10*3/uL Absolute Neuts (auto) (2.0-8.3) x10*3/uL Absolute Nucleated RBC (0.0-0.012) X10*3/uL Nucleated RBC % (auto) (0.0-0.2) /100WBC Sodium (135-145) mmol/L Potassium (3.3-5.1) mmol/L Chloride (96-108) mmol/L Carbon Dioxide (22-29) mmol/L Anion Gap (12-20) BUN (9-16) mg/dL Creatinine (0.5-1.4) mg/dL Estim Creat Clear Calc Estimated GFR Random Glucose (60-115) mg/dL Lactic Acid (0.5-2.0) mmol/L Calcium (8.4-10.2) mg/dL Magnesium (1.6-2.6) mg/dL Total Bilirubin (0.0-1.0) mg/dL Direct Bilirubin (0.0-0.5) mg/dL AST (5-37) U/L ALT (0-40) U/L Alkaline Phosphatase (39-117) U/L B-Natriuretic Peptide (<100) pg/mL Total Protein (6.5-8.0) g/dL Albumin (3.5-5.0) g/dL Urine Color Urine Appearance Urine pH (5.0-9.0) Ur Specific [place] (1.005-1.025) Urine Protein (Neg-Trace) mg/dL Urine Glucose (UA) (Negative) mg/dL Urine Ketones (Negative) mg/dL Urine Blood (Negative) Urine Nitrite (Negative) Ur Leukocyte Esterase (Negative) Urine RBC (0-2) /HPF Urine WBC (0-5) /HPF Ur Squamous Epith Cells (0-2) /HPF Urine Bacteria (None Seen) Hyaline Casts (0-2) /LPF Urine Opiates Screen POSITIVE H (Not Detect) Urine Fentanyl Screen POSITIVE H (Not Detect) Ur Barbiturates Screen Not Detected (Not Detect) Ur Phencyclidine Scrn Not Detected (Not Detect) Ur Amphetamines Screen Not Detected (Not Detect) U Benzodiazepines Scrn Not Detected (Not Detect) Urine Cocaine Screen POSITIVE H (Not Detect) U Marijuana (THC) Screen POSITIVE H (Not Detect) Influenza Type A (PCR) (Negative) Influenza Type B (PCR) (Negative) RSV RNA Qual (PCR) (Negative) SARS-CoV-2 RNA (RT-PCR) (Negative) <Andria Aquino MD - Last Filed: 02/22/22 21:33> Discharge Plan Discharge Clinical Impression: SIRS (systemic inflammatory response syndrome), Bilateral cellulitis of lower leg, Balanitis <Niki Goodman NP - Last Filed: 02/22/22 18:18> Patient Disposition: Admitted As Inpatient <Niki Goodman NP - Last Filed: 02/22/22 18:18>
[2022-02-22 19:36] LABS: MANUAL DIFF FLAG NO
[2022-02-22 19:38] LABS: Basophils Absolute Auto 0.1 X10*3/uL (0.0-0.2); Basophils Percent Auto 0.3 % (0-2); Eosinophils Absolute Auto 0.1 X10*3/uL (0.0-0.4); Eosinophils Percent Auto 0.4 % (0-4); Hematocrit 42.7 % (42.0-52.0); Hemoglobin 14.7 g/dl (14.0-18.0); Imm Gran Abs Auto 0.07 X10*3/uL (0.00-0.03); Imm Gran Pct Auto 0.4 % (0.0-0.4); Lymphocytes Absolute Auto 2.9 X10*3/uL (1.2-4.9); Lymphocytes Percent Auto 15.7 % (20-40); Mean Corpuscular HGB Conc 34.4 g/dl (31.0-36.0); Mean Corpuscular Hemoglobin 29.5 pg (27.0-33.0); Mean Corpuscular Volume 85.7 fL (80.0-98.0); Mean Platelet Volume 9.5 fL (9.4-12.4); Monocytes Percent Auto 5.3 % (2-11); Neutrophils Absolute Auto 14.5 x10*3/uL (2.0-8.3); Neutrophils Percent Auto 77.9 % (45-73); Platelet Count 316 X10*3/uL (160-400); Red Blood Count 4.98 X10*6/uL (4.60-5.80); Red Cell Distribution Width 11.9 % (11.0-16.0); White Blood Count 18.6 X10*3/uL (4.8-10.8)
[2022-02-22 19:56] LABS: Alanine Aminotransferase 24 U/L (0-40); Albumin Level 4.4 g/dL (3.5-5.0); Alkaline Phosphatase 105 U/L (39-117); Anion Gap 14 (12-20); Aspartate Amino Transferase 15 U/L (5-37); Bilirubin Direct 0.2 mg/dL (0.0-0.5); Bilirubin Total 0.4 mg/dL (0.0-1.0); Blood Urea Nitrogen 16 mg/dL (9-16); Calcium 9.9 mg/dL (8.4-10.2); Carbon Dioxide 28 mmol/L (22-29); Chloride 101 mmol/L (96-108); Creatinine Clr Calc Pharmacy 122.6; Estimated Glomerular Filt Rate > 60; Glucose Random 276 mg/dL (60-115); Potassium 4.6 mmol/L (3.3-5.1); Sodium 138 mmol/L (135-145); Total Protein 7.2 g/dL (6.5-8.0)
[2022-02-22 19:59] LABS: B Type Natriuretic Peptide 18 pg/mL (<100)
[2022-02-22 20:16] LABS: Influenza A PCR NEGATIVE (Negative); Influenza B PCR NEGATIVE (Negative); Resp Syncy Virus RNA Qual PCR NEGATIVE (Negative); SARS COV2 PCR INHOUSE NEGATIVE (Negative)
[2022-02-22] MEDS: 0.9 % Sodium Chloride 1,000 ML 999 ML IV (20:37)
[2022-02-22 20:44] LABS: Appearance Urine Clear; Color Urine Yellow; Glucose Urine UA >=1000 mg/dL (Negative); Leukocyte Esterase Urine Negative (Negative); Nitrite Urine Negative (Negative); PH 5.5 (5.0-9.0); Specific Gravity - Urine >= 1.030 (1.005-1.025); UMIC TRIGGER UACC YES; Urine Blood Negative (Negative); Urine Ketones Negative (Negative); Urine Protein 30 (1+) mg/dL (Neg-Trace)
[2022-02-22] MEDS: Doxycycline Hyclate 100 MG in 0.9 % Sodium Chloride 250 ML 166.67 MG IV (20:46)
[2022-02-22 20:49] VITALS: BP 185/72; PULSE 95; RESP 14; TEMP 36.8; O2SAT 91
[2022-02-22 20:50] LABS: Bacteria Urine None Seen (None Seen); Hyaline Casts Urine 0-2 /LPF (0-2); RBC Urine 0-2 /HPF (0-2); Squamous Epithelial Cell Urine 0-2 /HPF (0-2); WBC Urine 0-5 /HPF (0-5)
[2022-02-22 21:09] LABS: Amphetamine Screen Urine Not Detected (Not Detect); Barbiturates, Urine Not Detected (Not Detect); Benzodiazepines Screen Urine Not Detected (Not Detect); Cannabinoid Screen Urine POSITIVE (Not Detect); Cocaine Screen Urine POSITIVE (Not Detect); Fentanyl, urine POSITIVE (Not Detect); Opiate Screen Urine POSITIVE (Not Detect); Phencyclidine Screen Urine Not Detected (Not Detect)
[2022-02-22 21:24] LABS: Lactic Acid 1.3 mmol/L (0.5-2.0)
[2022-02-22] MEDS: Nystatin Cream 15 GM TUBE 1 APPL TOPICAL (21:26)
[2022-02-22] MEDS: vancomycin HCL 1,500 MG in 0.9 % Sodium Chloride 500 ML 333.33 MG IV (21:52)
--- NOTE | 2022-02-22 23:02 | PC.NURSE ---
this RN is concerned that the pt may have illicit drugs in his belonging bags. Dr. Billingsley made aware, security brought to bedside to [facility] pt belongings
--- NOTE | 2022-02-23 00:22 | PM.IMHP ---
History of Present Illness Date of Service: 02/23/22 Chief Complaint: redness and pain of penis 51-year-old male with past medical history of Joey itis with recurrence, paroxysmal AFib, history of substance abuse, diabetes, BPH, asthma, HTN, depression, morbid obesity, osteoarthritis, presents the hospital with complaints of significant pain redness and swelling of his penis. Patient reports that he gets recurrent infection around that of his pain is where he becomes red, the skin starts tearing, he has significant pain when he pees and the urine touches the glans penis. Reports no fever or chills, denies any other review of system cleaning no chest pain, no shortness of breath, no palpitations no abdominal pain nausea or vomiting, no diarrhea or constipation, no urinary symptoms besides the mentioned and no lower extremity edema. on arrival to the ED patient hemodynamically stable with with a WBC count of 8.6, UA negative for acute infection, urine drug screen is positive for opioids, fentanyl, cocaine and marijuana gonorrhea negative, chlamydia negative, patient started on IV antibiotics will be admitted for further management Review of Systems Review of Systems: Yes all other systems are reviewed and are negative [facility] Medical History Anxiety Arthritis Asthma Benign essential hypertension BPH (benign prostatic hyperplasia) Depression Diabetes Family history of thyroid disorder Insomnia Lumbar degenerative disc disease Morbid obesity with BMI of 40.0-44.9, adult Overactive bladder Paroxysmal atrial fibrillation with rapid ventricular response Polysubstance abuse Primary osteoarthritis of both knees Seizure Substance abuse Type 2 diabetes mellitus with hyperglycemia Family History Father ETOH abuse Mother Diabetes Arthritis of knee Hypertension Other Mental health problem Substance abuse Surgical History No history of previous surgery Social History Household Members: Other Household Members Other:: room Housing: Other Housing Other:: Room Do you presently have visiting nurse or other home services: No Alcohol intake: current Alcohol intake frequency: holidays/special occasions only Patient Tobacco Use Status: Never used Tobacco Smoked in Last 30 Days: No e-Cigarette/Vaping Use: Never Used Second Hand Smoke Exposure: Yes Use of substances other than those prescribed or required for medical reasons: Yes Substance Use Type: Heroin and Marijuana Advance Directives: No Advance Directives Information Provided: No service: No Current occupational status: disabled Cognitive needs: No Hearing needs: No Vision needs: No Meds Allergies Allergy/AdvReac Type Severity Reaction Status Date / Time Penicillins [PENICILLINS] Allergy Unknown RASH Verified 01/13/22 13:29 Active Medications: Current Medications Acetaminophen (Acetaminophen 325 Mg Tablet) 650 mg PO Q6H PRN PRN Reason: Pain, Mild (Pain Scale 1-3) Clotrimazole (Clotrimazole 1 % Cream 15 Gm Tube) 1 appl TOPICAL BID [facility]OT[facility]; Protocol Docusate Sodium (Docusate Sodium 100 Mg Capsule) 100 mg PO DAILY PRN PRN Reason: Constipation Metronidazole (Metronidazole 500 Mg Tablet) 500 mg PO Q12H SCOT[facility] Ondansetron HCl (Ondansetron Hcl 4 Mg/2 Ml Vial) 4 mg IVPUSH Q8H PRN PRN Reason: Nausea and Vomiting Sodium Chloride (0.9 % Sodium Chloride Flush 3 Ml Syringe) 3 ml IVFLUSH QSHIFT [facility] Physical Exam Vital Signs and Narrative: Vital Signs: Last Vital Signs Temp 98.3 F 02/22/22 20:49 Pulse 95 02/22/22 20:49 Resp 14 02/22/22 20:49 BP 185/72 H 02/22/22 20:49 Pulse Ox 91 L 02/22/22 20:49 O2 Del Method 02/22/22 20:49 BMI result Body Mass Index 42.1 Const: General: cooperative and no acute distress Orientation/consciousness: patient oriented x3 Eyes: General: appearance normal, both eyes and all related structures Resp: Effort & Inspection: normal respiratory effort Auscultation: clear to auscultation bilaterally Cardio: Rate: regular rate Rhythm: regular rhythm GI: Palpation (GI): Soft to palpation Auscultation: normal bowel sounds : Other: as significant erythema, skin fissures on the glans penis, tender, warm, as well as edematous Skin: General skin exam: no rashes or lesions noted Neuro: General: patient oriented x3 Cognition (Neuro): normal cognition Extrem: General: Yes normal to inspection and Yes no pedal edema Results Labs CBC and Chem 7: 02/23/22 05:30 02/23/22 05:30 Labs: Laboratory Results - last 24 hr 02/22/22 02/22/22 02/22/22 19:31 19:31 19:31 MCV 85.7 MCH 29.5 MCHC 34.4 RDW 11.9 Plt Count 316 MPV 9.5 Immature Gran % (Auto) 0.4 Neut % (Auto) 77.9 H Lymph % (Auto) 15.7 L [place] % (Auto) 5.3 Eos % (Auto) 0.4 Baso % (Auto) 0.3 Lymph # (Auto) 2.9 [place] # (Auto) 1.0 Eos # (Auto) 0.1 Baso # (Auto) 0.1 Abs Immat Gran (auto) 0.07 H Absolute Neuts (auto) 14.5 H Absolute Nucleated RBC 0.000 Nucleated RBC % (auto) 0.0 Anion Gap 14 Estim Creat Clear Calc 122.6 Estimated GFR > 60 Random Glucose 276 H Lactic Acid Calcium 9.9 D Magnesium 2.0 Total Bilirubin 0.4 Direct Bilirubin 0.2 AST 15 ALT 24 Alkaline Phosphatase 105 B-Natriuretic Peptide 18 Total Protein 7.2 Albumin 4.4 Urine Color Urine Appearance Urine pH Ur Specific [place] Urine Protein Urine Glucose (UA) Urine Ketones Urine Blood Urine Nitrite Ur Leukocyte Esterase Urine RBC Urine WBC Ur Squamous Epith Cells Urine Bacteria Hyaline Casts Urine Opiates Screen Urine Fentanyl Screen Ur Barbiturates Screen Ur Phencyclidine Scrn Ur Amphetamines Screen U Benzodiazepines Scrn Urine Cocaine Screen U Marijuana (THC) Screen Influenza Type A (PCR) Influenza Type B (PCR) RSV RNA Qual (PCR) SARS-CoV-2 RNA (RT-PCR) 02/22/22 02/22/22 02/22/22 19:31 20:21 20:21 MCV MCH MCHC RDW Plt Count MPV Immature Gran % (Auto) Neut % (Auto) Lymph % (Auto) [place] % (Auto) Eos % (Auto) Baso % (Auto) Lymph # (Auto) [place] # (Auto) Eos # (Auto) Baso # (Auto) Abs Immat Gran (auto) Absolute Neuts (auto) Absolute Nucleated RBC Nucleated RBC % (auto) Anion Gap Estim Creat Clear Calc Estimated GFR Random Glucose Lactic Acid 1.3 Calcium Magnesium Total Bilirubin Direct Bilirubin AST ALT Alkaline Phosphatase B-Natriuretic Peptide Total Protein Albumin Urine Color Yellow Urine Appearance Clear Urine pH 5.5 Ur Specific [place] >= 1.030 H Urine Protein 30 (1+) H Urine Glucose (UA) >=1000 H Urine Ketones Negative Urine Blood Negative Urine Nitrite Negative Ur Leukocyte Esterase Negative Urine RBC 0-2 Urine WBC 0-5 Ur Squamous Epith Cells 0-2 Urine Bacteria None Seen Hyaline Casts 0-2 Urine Opiates Screen Urine Fentanyl Screen Ur Barbiturates Screen Ur Phencyclidine Scrn Ur Amphetamines Screen U Benzodiazepines Scrn Urine Cocaine Screen U Marijuana (THC) Screen Influenza Type A (PCR) NEGATIVE Influenza Type B (PCR) NEGATIVE RSV RNA Qual (PCR) NEGATIVE SARS-CoV-2 RNA (RT-PCR) NEGATIVE 02/22/22 20:34 MCV MCH MCHC RDW Plt Count MPV Immature Gran % (Auto) Neut % (Auto) Lymph % (Auto) [place] % (Auto) Eos % (Auto) Baso % (Auto) Lymph # (Auto) [place] # (Auto) Eos # (Auto) Baso # (Auto) Abs Immat Gran (auto) Absolute Neuts (auto) Absolute Nucleated RBC Nucleated RBC % (auto) Anion Gap Estim Creat Clear Calc Estimated GFR Random Glucose Lactic Acid Calcium Magnesium Total Bilirubin Direct Bilirubin AST ALT Alkaline Phosphatase B-Natriuretic Peptide Total Protein Albumin Urine Color Urine Appearance Urine pH Ur Specific [place] Urine Protein Urine Glucose (UA) Urine Ketones Urine Blood Urine Nitrite Ur Leukocyte Esterase Urine RBC Urine WBC Ur Squamous Epith Cells Urine Bacteria Hyaline Casts Urine Opiates Screen POSITIVE H Urine Fentanyl Screen POSITIVE H Ur Barbiturates Screen Not Detected Ur Phencyclidine Scrn Not Detected Ur Amphetamines Screen Not Detected U Benzodiazepines Scrn Not Detected Urine Cocaine Screen POSITIVE H U Marijuana (THC) Screen POSITIVE H Influenza Type A (PCR) Influenza Type B (PCR) RSV RNA Qual (PCR) SARS-CoV-2 RNA (RT-PCR) Assessment and Plan (1) Balanitis: Status: Acute (2) SIRS (systemic inflammatory response syndrome): Status: Acute Plan 51-year-old male with past medical history as mentioned above presents to the hospital with complaints of pain around the penis found to have acute balanitis # acute balanitis - recurrent, has had multiple episodes in the past - will treat with clotrimazole cream as well as p.o. Flagyl given his recurrence as well as the severity - patient has leukocytosis - afebrile # paroxysmal AFib - rate controlled - continue apixaban, as well as metoprolol # diabetes - continue home insulin - will add low-dose sliding scale insulin - diabetic diet # BP H - continue tamsulosin # mood disorder - continue with stabilizers DVT prophylaxis: Apixaban Time Spent With Patient Time: Total time managing care of this patient today ____ minutes. Quality Stroke Does the patient have a stroke diagnosis?: No VTE Prior VTE?: No VTE Risk Level:: Medical - low VTE Device Contraindication: Treatment Not Indicated VTE Drug Contraindication: N/A - Med Ordered
[2022-02-23] MEDS: metroNIDAZOLE 500 MG TABLET PO ×3 (01:17→17:08)
[2022-02-23 02:02] LABS: CT PCR NOT DETECTED (Not Detect.); NG PCR NOT DETECTED (Not Detect.)
--- NOTE | 2022-02-23 03:44 | PC.NURSE ---
Addendum entered by Lucy Blevins RN 02/23/22 04:24: report given to ALTAGRACIA Ruiz Original Note: pt is alert and oriented resting comfortably in bed no signs of acute distress notice breathing equally unlabored
[2022-02-23 04:14] VITALS: BP 138/63; PULSE 82; RESP 14; TEMP 36.9; O2SAT 96
--- NOTE | 2022-02-23 04:28 | PC.NURSE ---
Assumed care for pt. Pt aox4. No apparent distress noted. Pt able to ambulate with no difficulties. Reports penile pain, 12/19. Flagyl and nystatin cream previously administered as prescribed. Food and liquids provided as requested by pt. Pt awaiting bed assignment and aware of plan of care.
--- NOTE | 2022-02-23 04:58 | PC.NURSE ---
Pt noted ambulating to the restroom with no difficulty. Will continue to monitor.
[2022-02-23 05:51] LABS: Basophils Percent Auto 0.2 % (0-2); Eosinophils Absolute Auto 0.1 X10*3/uL (0.0-0.4); Eosinophils Percent Auto 1.1 % (0-4); Hematocrit 40.4 % (42.0-52.0); Hemoglobin 13.3 g/dl (14.0-18.0); Imm Gran Abs Auto 0.04 X10*3/uL (0.00-0.03); Imm Gran Pct Auto 0.3 % (0.0-0.4); Lymphocytes Absolute Auto 2.8 X10*3/uL (1.2-4.9); Lymphocytes Percent Auto 23.2 % (20-40); MANUAL DIFF FLAG NO; Mean Corpuscular HGB Conc 32.9 g/dl (31.0-36.0); Mean Corpuscular Hemoglobin 29.4 pg (27.0-33.0); Mean Corpuscular Volume 89.4 fL (80.0-98.0); Mean Platelet Volume 10.2 fL (9.4-12.4); Monocytes Absolute Auto 0.7 X10*3/uL (0.1-1.2); Monocytes Percent Auto 5.6 % (2-11); Neutrophils Absolute Auto 8.4 x10*3/uL (2.0-8.3); Neutrophils Percent Auto 69.6 % (45-73); Platelet Count 276 X10*3/uL (160-400); Red Blood Count 4.52 X10*6/uL (4.60-5.80); Red Cell Distribution Width 11.9 % (11.0-16.0)
[2022-02-23 06:11] LABS: Anion Gap 13 (12-20); Blood Urea Nitrogen 15 mg/dL (9-16); Calcium 9.3 mg/dL (8.4-10.2); Carbon Dioxide 27 mmol/L (22-29); Chloride 100 mmol/L (96-108); Creatinine Clr Calc Pharmacy 121.5; Estimated Glomerular Filt Rate > 60; Glucose Random 440 mg/dL (60-115); Potassium 4.3 mmol/L (3.3-5.1); Sodium 136 mmol/L (135-145)
--- NOTE | 2022-02-23 06:23 | PC.NURSE ---
Panchito text sent to Dr. Ramos regarding pts blood glucose level of 440. Awaiting doctors response.
[2022-02-23] MEDS: Insulin Lispro 100 UNIT/ML 3 ML VIAL SUBCUT ×4 (06:44→19:53)
--- NOTE | 2022-02-23 06:45 | PC.NURSE ---
10u of insulin administered as ordered by Dr. Medina. Pt aox4 in no apparent distress.
[2022-02-23 07:20] VITALS: BP 152/74; PULSE 98; RESP 20; TEMP 37; O2SAT 96
[2022-02-23 07:25] LABS: Glucose, Whole Blood 433 mg/dL (60-115)
[2022-02-23] MEDS: Furosemide 20 MG TABLET PO (08:24)
[2022-02-23] MEDS: busPIRone HCl 10 MG TABLET 30 MG PO ×3 (08:24→19:53)
[2022-02-23] MEDS: Escitalopram Oxalate 20 MG TABLET PO (08:24)
[2022-02-23] MEDS: Apixaban 5 MG TABLET PO ×2 (08:24→21:07)
--- NOTE | 2022-02-23 08:33 | PHA.MEDREC ---
Pharmacy Consult ? Medication Reconciliation Pharmacy has reviewed the medication reconciliation by Lucy. Spoke with patient about medications not filled recently; buspirone, escitalopram, metoprolol, quetiapine and tamsulosin. Patient reported he is taking all those medications. Reports he takes tramadol jonathan instead of PRN. Victoriano Barton
[2022-02-23] MEDS: lisinopriL 10 MG TABLET 30 MG PO (09:00)
[2022-02-23] MEDS: traMADoL HCL 50 MG TABLET PO ×3 (09:00→17:08)
[2022-02-23] MEDS: Tamsulosin HCL 0.4 MG CAPSULE PO (09:00)
[2022-02-23] MEDS: Metoprolol Tartrate 100 MG TABLET PO ×2 (09:00→19:53)
--- NOTE | 2022-02-23 10:25 | MHC.CM.PN ---
PT REPORTS HE LIVES ALONE AND RENTS A ROOM HE REPORTS HE IS INDEPENDENT WITH CARE BUT NEEDS A NITRATE OPERATOR PT REPORTS HE ALSO NEED A COMMUNITY AYDE PERSON TO ASSIST WITH COMMUNITY RESOURCES AND DR WALL PT WAS INFORMED HE SHOULD F/U WITH PCP REQUEST FOR PCP APT SENT P[T REPORTS HE IS SUPPOSED TO USE A CANE BUT LOST IT HE ALSO REPORTS CONCERN THAT HE MAY LOSE HIS HOUSING SOON HE WAS PROVIDED INFORMATION FOR [employer] PT IS NOT COVID [employer] PCP: RADHA PIKE NO HCP OBSERVATION NOTICE DELIVERED, COPY SENT TO [facility] CURRENT DC PLAN IS HOME HE WILL NEED THE SHUTTLE
[2022-02-23 11:33] VITALS: BP 124/71; PULSE 68; RESP 16; TEMP 36.8; O2SAT 98
[2022-02-23 11:41] LABS: Glucose, Whole Blood 305 mg/dL (60-115)
--- NOTE | 2022-02-23 12:12 | MHC.RECOVRN ---
Met with pt in ED11 to discuss substance use and assess for opioid withdrawal. Pt sitting on side of bed, awake, alert, easily engages in conversation. Pt reports using heroin, 2 bags-1 bundle every couple days, [place], on and off since 1996. Pt reports last use yesterday. Currently denies withdrawal symptoms. Pt has been to [facility] x 2. Pt has been incarcerated which were also significant periods of time of abstinence. Pt reports hx 2 overdoses. Pt has been on Suboxone in the past (2014) but discontinued due to taste. Pt has not been on methadone and is not interested in initiating. Pt reports having planned to begin tx at the [facility] but was unable to due to transportation. Pt is interested in initiating Suboxone now and utilizing [facility] for appts. Pt denies questions or concerns at this time. Discussed with Fang Iraheta APRN.
--- NOTE | 2022-02-23 12:17 | PM.EVENT ---
Event Note Date of Service: 02/23/22 Event Note: Chart reviewed patient examined. Agree with assessment and plan history and physical as outlined. Further plans as clinical course unfolds Time Spent With Patient Time: Total time managing care of this patient today ____ minutes.
[2022-02-23 17:01] LABS: Glucose, Whole Blood 273 mg/dL (60-115)
[2022-02-23] MEDS: 0.9 % Sodium Chloride Flush 3 ML SYRINGE IVFLUSH ×2 (17:10→19:58)
[2022-02-23 17:37] VITALS: BP 148/66; PULSE 82; RESP 17; TEMP 36.4; O2SAT 97
[2022-02-23 17:47] LABS: Glucose, Whole Blood 304 mg/dL (60-115)
[2022-02-23 19:31] VITALS: BP 165/92; PULSE 79; RESP 20; TEMP 36.1; O2SAT 96
[2022-02-23 19:37] LABS: Glucose, Whole Blood 281 mg/dL (60-115)
[2022-02-23] MEDS: Insulin Glargine,Hum.rec.anlog 100 UNIT/ML 10 ML VIAL 30 UNIT SUBCUT (19:52)
[2022-02-23] MEDS: QUEtiapine Fumarate 50 MG TABLET PO (19:53)
[2022-02-23] MEDS: Clotrimazole 1 % Cream 15 GM TUBE 1 APPL TOPICAL (21:37)
[2022-02-23 23:48] VITALS: BP 128/71; PULSE 74; RESP 14; TEMP 36.6; O2SAT 96
[2022-02-24] MEDS: metroNIDAZOLE 500 MG TABLET PO ×3 (00:02→16:31)
[2022-02-24 03:06] VITALS: BP 114/66; PULSE 74; RESP 14; TEMP 36; O2SAT 98
[2022-02-24] MEDS: traMADoL HCL 50 MG TABLET PO ×3 (05:56→17:18)
[2022-02-24 07:26] VITALS: BP 114/60; PULSE 74; RESP 19; TEMP 37.1; O2SAT 96
[2022-02-24 07:40] LABS: Glucose, Whole Blood 359 mg/dL (60-115)
[2022-02-24] MEDS: busPIRone HCl 10 MG TABLET 30 MG PO ×3 (07:45→20:48)
[2022-02-24] MEDS: Apixaban 5 MG TABLET PO ×2 (07:46→20:49)
[2022-02-24] MEDS: Insulin Lispro 100 UNIT/ML 3 ML VIAL SUBCUT ×4 (07:46→20:49)
[2022-02-24] MEDS: Tamsulosin HCL 0.4 MG CAPSULE PO (07:46)
[2022-02-24] MEDS: Escitalopram Oxalate 20 MG TABLET PO (07:46)
[2022-02-24] MEDS: Metoprolol Tartrate 100 MG TABLET PO ×2 (07:46→20:49)
[2022-02-24] MEDS: lisinopriL 10 MG TABLET 30 MG PO (07:46)
[2022-02-24] MEDS: Furosemide 20 MG TABLET PO (07:46)
[2022-02-24] MEDS: 0.9 % Sodium Chloride Flush 3 ML SYRINGE IVFLUSH ×3 (07:47→20:55)
[2022-02-24] MEDS: Clotrimazole 1 % Cream 15 GM TUBE 1 APPL TOPICAL ×2 (09:11→20:54)
--- NOTE | 2022-02-24 09:21 | MHC.RECOVRN ---
Met with pt in 372 to assess withdrawal symptoms. Pt laying in bed, eyes closed, wakes to voice. When asked about withdrawal, pt states Not yet, i'm just trying to rest. Kimber Fontaine NP aware.
--- NOTE | 2022-02-24 10:26 | P.PNIM_ITS ---
Subjective Subjective Date of Service: 02/24/22 Interval History: Admitted with balanitis/cellulitis of penis. Slowly responding to therapies Review of Systems Denies chest pain Denies shortness of breath Denies nausea vomiting diarrhea Denies fever chills Physical Exam Vital Signs: Vital Signs: Last Vital Signs Temp 98.7 F 02/24/22 07:26 Pulse 74 02/24/22 07:26 Resp 19 02/24/22 07:26 BP 114/60 02/24/22 07:26 Pulse Ox 96 02/24/22 07:26 O2 Del Method 02/24/22 07:26 BMI result Body Mass Index 42.1 Const: Other: Awake alert no acute distress Resp: Other: Clear to auscultation bilaterally no rales rhonchi or wheezes Cardio: Other: No S4; positive S1-S2; no S3 murmurs rubs or gallops : Other: Foreskin it cracked and erythematous over the glans no drainage noted Extrem: Other: No edema bilaterally Objective Data Active Medications Acetaminophen (Acetaminophen 325 Mg Tablet) 650 mg PO Q6H PRN PRN Reason: Pain, Mild (Pain Scale 1-3) Albuterol Sulfate (Albuterol Sulfate 90 Mcg 8 Gm Inhaler) 2 puff INHALE Q8H PRN PRN Reason: shortness of breath or wheezing Apixaban (Apixaban 5 Mg Tablet) 5 mg PO BID [facility] Last Admin: 02/24/22 07:46 Dose: 5 mg Documented By: YULISA Buspirone HCl (Buspirone Hcl 10 Mg Tablet) 30 mg PO TID [facility] Last Admin: 02/24/22 07:45 Dose: 30 mg Documented By: YULISA Clotrimazole (Clotrimazole 1 % Cream 15 Gm Tube) 1 appl TOPICAL BID [facility]; Protocol Last Admin: 02/24/22 09:11 Dose: 1 appl Documented By: YULISA Dextrose (Dextrose 50 % 25 Gm/50 Ml Syringe) 25 gm IVPUSH Q15M PRN; Protocol PRN Reason: per Hypoglycemia Standing Ord. Docusate Sodium (Docusate Sodium 100 Mg Capsule) 100 mg PO DAILY PRN PRN Reason: Constipation Escitalopram Oxalate (Escitalopram Oxalate 20 Mg Tablet) 20 mg PO DAILY [facility] Last Admin: 02/24/22 07:46 Dose: 20 mg Documented By: YULISA Furosemide (Furosemide 20 Mg Tablet) 20 mg PO DAILY [facility]; Protocol Last Admin: 02/24/22 07:46 Dose: 20 mg Documented By: YULISA Glucose (Glucose Gel 15 Gm Gel..Gram.) 15 gm PO Q15M PRN; Protocol PRN Reason: per Hypoglycemia Standing Ord. Hydroxyzine HCl (Hydroxyzine Hcl 25 Mg Tablet) 25 mg PO TID PRN PRN Reason: for anxiety Insulin Glargine (Insulin Glargine,Hum.Rec.Anlog 100 Unit/Ml 10 Ml Vial) 30 unit SUBCUT BEDTIME [facility] Last Admin: 02/23/22 19:52 Dose: 30 unit Documented By: BILL Insulin Human Lispro (Insulin Lispro 100 Unit/Ml 3 Ml Vial) 0 unit SUBCUT QIDACHS [facility]; Protocol Last Admin: 02/24/22 07:46 Dose: 10 unit Documented By: YULISA Comments: md man[place] Lidocaine (Lidocaine 4 % Patch Adh..Patch) 2 patch TRANSDERMA DAILY PRN PRN Reason: Pain, Severe (Pain Scale 7-10) Lisinopril (Lisinopril 10 Mg Tablet) 30 mg PO DAILY [facility]; Protocol Last Admin: 02/24/22 07:46 Dose: 30 mg Documented By: YULISA Loratadine (Loratadine 10 Mg Tablet) 10 mg PO DAILY PRN PRN Reason: allergy symptoms Methadone HCl (Methadone Hcl 20 Mg/2 Ml Oral.Conc) 10 mg PO ONCE PRN PRN Reason: opioid withdrawals Metoprolol Tartrate (Metoprolol Tartrate 100 Mg Tablet) 100 mg PO BID [facility]; Protocol Last Admin: 02/24/22 07:46 Dose: 100 mg Documented By: YULISA Metronidazole (Metronidazole 500 Mg Tablet) 500 mg PO Q8H [facility] Last Admin: 02/24/22 07:46 Dose: 500 mg Documented By: YULISA Ondansetron HCl (Ondansetron Hcl 4 Mg/2 Ml Vial) 4 mg IVPUSH Q8H PRN PRN Reason: Nausea and Vomiting Quetiapine Fumarate (Quetiapine Fumarate 50 Mg Tablet) 50 mg PO BEDTIME [facility] Last Admin: 02/23/22 19:53 Dose: 50 mg Documented By: BILL Sodium Chloride (0.9 % Sodium Chloride Flush 3 Ml Syringe) 3 ml IVFLUSH QSHIFT [facility] Last Admin: 02/24/22 07:47 Dose: 3 ml Documented By: YULISA Tamsulosin HCl (Tamsulosin Hcl 0.4 Mg Capsule) 0.4 mg PO DAILY [facility] Last Admin: 02/24/22 07:46 Dose: 0.4 mg Documented By: YULISA Tramadol HCl (Tramadol Hcl 50 Mg Tablet) 50 mg PO TID@0600,1200,1800 [facility] Last Admin: 02/24/22 05:56 Dose: 50 mg Documented By: BILL Zolpidem Tartrate (Zolpidem Tartrate 5 Mg Tablet) 5 mg PO BEDTIME PRN PRN Reason: insomnia Labs CBC & Chem 7: 02/23/22 05:30 02/23/22 05:30 Labs: Laboratory Results - last 24 hr 02/23/22 02/23/22 02/23/22 11:37 16:57 17:43 POC Glucose 305 H 273 H 304 H 02/23/22 02/24/22 19:33 07:23 POC Glucose 281 H 359 H* Microbiology Microbiology Results: Microbiology 02/22/22 20:21 Blood Culture - Preliminary Blood - Venous No growth after 24 hours. 02/22/22 20:21 Blood Culture - Preliminary Blood - Venous No growth after 24 hours. Assessment and Plan (1) Balanitis: Status: Acute (2) Paroxysmal atrial fibrillation with rapid ventricular response: Status: Acute Plan 51-year-old male with past medical history as mentioned above presents to the hospital with complaints of pain around the penis found to have acute balanitis 1.Acute balanitis - recurrent, has had multiple episodes in the past - anti fungal cream/Flagyl/IV doxycycline (cellulitis) - patient has leukocytosis - afebrile 2.Paroxysmal AFib - rate controlled - continue apixaban, as well as metoprolol 3.Diabetes - continue home insulin - will add low-dose sliding scale insulin - diabetic diet DVT prophylaxis: Apixaban Full code Patient will require ongoing hospitalization for IV antibiotics to treat balanitis/penis cellulitis Time Spent With Patient Time: Total time managing care of this patient today ____ minutes. Quality Stroke Does the patient have a stroke diagnosis?: No VTE Prior VTE?: No VTE Risk Level:: Medical - low VTE Device Contraindication: Treatment Not Indicated VTE Drug Contraindication: N/A - Med Ordered
[2022-02-24 13:17] LABS: Glucose, Whole Blood 267 mg/dL (60-115)
[2022-02-24 15:05] VITALS: BP 139/77; PULSE 82; RESP 18; TEMP 36.3; O2SAT 97
[2022-02-24 15:22] LABS: Glucose, Whole Blood 293 mg/dL (60-115)
[2022-02-24 19:20] VITALS: BP 128/80; PULSE 84; RESP 18; TEMP 36.4; O2SAT 97
[2022-02-24 19:31] LABS: Glucose, Whole Blood 283 mg/dL (60-115)
[2022-02-24] MEDS: QUEtiapine Fumarate 50 MG TABLET PO (20:48)
[2022-02-24] MEDS: Insulin Glargine,Hum.rec.anlog 100 UNIT/ML 10 ML VIAL 30 UNIT SUBCUT (20:49)
[2022-02-25] MEDS: metroNIDAZOLE 500 MG TABLET PO ×4 (00:05→23:07)
[2022-02-25 03:49] VITALS: BP 126/62; PULSE 74; RESP 14; TEMP 36.6; O2SAT 98
[2022-02-25] MEDS: traMADoL HCL 50 MG TABLET PO ×3 (06:06→16:20)
[2022-02-25 07:21] VITALS: BP 130/70; PULSE 94; RESP 17; TEMP 38.8; O2SAT 95
[2022-02-25 07:22] VITALS: BP 112/54; PULSE 75; RESP 18; TEMP 36.5; O2SAT 96
[2022-02-25 07:43] LABS: Glucose, Whole Blood 229 mg/dL (60-115)
[2022-02-25] MEDS: busPIRone HCl 10 MG TABLET 30 MG PO ×3 (07:47→19:58)
[2022-02-25] MEDS: Tamsulosin HCL 0.4 MG CAPSULE PO (07:48)
[2022-02-25] MEDS: lisinopriL 10 MG TABLET 30 MG PO (07:48)
[2022-02-25] MEDS: Escitalopram Oxalate 20 MG TABLET PO (07:48)
[2022-02-25] MEDS: Apixaban 5 MG TABLET PO ×2 (07:48→19:58)
[2022-02-25] MEDS: Metoprolol Tartrate 100 MG TABLET PO ×2 (07:48→19:58)
[2022-02-25] MEDS: Furosemide 20 MG TABLET PO (07:49)
[2022-02-25] MEDS: Clotrimazole 1 % Cream 15 GM TUBE 1 APPL TOPICAL ×2 (07:49→19:59)
[2022-02-25] MEDS: 0.9 % Sodium Chloride Flush 3 ML SYRINGE IVFLUSH ×3 (07:49→19:59)
[2022-02-25] MEDS: Insulin Lispro 100 UNIT/ML 3 ML VIAL SUBCUT ×4 (07:50→19:58)
[2022-02-25] MEDS: Doxycycline Hyclate 100 MG in 0.9 % Sodium Chloride 250 ML 166.67 MG IV (08:00)
[2022-02-25] MEDS: methADONE HCl 20 MG/2 ML ORAL.CONC 10 MG PO (08:01)
[2022-02-25 11:36] LABS: Glucose, Whole Blood 256 mg/dL (60-115)
--- NOTE | 2022-02-25 12:25 | HO.PM.IMPN ---
Subjective Subjective Date of Service: 02/25/22 Interval History: Admitted with balanitis/penile cellulitis; slowly responded to therapies Review of Systems Denies chest pain Denies shortness of breath Denies nausea vomiting diarrhea Denies fever chills Physical Exam Vital Signs: Vital Signs: Last Vital Signs Temp 97.7 F 02/25/22 07:22 Pulse 75 02/25/22 07:22 Resp 18 02/25/22 07:22 BP 112/54 L 02/25/22 07:22 Pulse Ox 96 02/25/22 07:22 O2 Del Method 02/25/22 07:22 BMI result Body Mass Index 42.1 Const: Other: Awake alert no acute distress Resp: Other: Clear to auscultation bilaterally no rales rhonchi or wheezes Cardio: Other: No S4; positive S1-S2; no S3 murmurs rubs or gallops : Other: Foreskin it cracked and erythematous over the glans no drainage noted Extrem: Other: No edema bilaterally Objective Data Active Medications Acetaminophen (Acetaminophen 325 Mg Tablet) 650 mg PO Q6H PRN PRN Reason: Pain, Mild (Pain Scale 1-3) Albuterol Sulfate (Albuterol Sulfate 90 Mcg 8 Gm Inhaler) 2 puff INHALE Q8H PRN PRN Reason: shortness of breath or wheezing Apixaban (Apixaban 5 Mg Tablet) 5 mg PO BID [facility] Last Admin: 02/25/22 07:48 Dose: 5 mg Documented By: MARTY Buspirone HCl (Buspirone Hcl 10 Mg Tablet) 30 mg PO TID [facility] Last Admin: 02/25/22 07:47 Dose: 30 mg Documented By: MARTY Clotrimazole (Clotrimazole 1 % Cream 15 Gm Tube) 1 appl TOPICAL BID [facility]; Protocol Last Admin: 02/25/22 07:49 Dose: 1 appl Documented By: MARTY Dextrose (Dextrose 50 % 25 Gm/50 Ml Syringe) 25 gm IVPUSH Q15M PRN; Protocol PRN Reason: per Hypoglycemia Standing Ord. Docusate Sodium (Docusate Sodium 100 Mg Capsule) 100 mg PO DAILY PRN PRN Reason: Constipation Escitalopram Oxalate (Escitalopram Oxalate 20 Mg Tablet) 20 mg PO DAILY [facility] Last Admin: 02/25/22 07:48 Dose: 20 mg Documented By: MARTY Furosemide (Furosemide 20 Mg Tablet) 20 mg PO DAILY [facility]; Protocol Last Admin: 02/25/22 07:49 Dose: 20 mg Documented By: MARTY Glucose (Glucose Gel 15 Gm Gel..Gram.) 15 gm PO Q15M PRN; Protocol PRN Reason: per Hypoglycemia Standing Ord. Hydroxyzine HCl (Hydroxyzine Hcl 25 Mg Tablet) 25 mg PO TID PRN PRN Reason: for anxiety Doxycycline Hyclate 100 mg/ (Sodium Chloride) 250 mls @ 166.67 mls/hr IV Q12H [facility] Last Infusion: 02/25/22 09:50 Dose: 0 mls/hr Documented By: MARTY Insulin Glargine (Insulin Glargine,Hum.Rec.Anlog 100 Unit/Ml 10 Ml Vial) 30 unit SUBCUT BEDTIME [facility] Last Admin: 02/24/22 20:49 Dose: 30 unit Documented By: BILL Insulin Human Lispro (Insulin Lispro 100 Unit/Ml 3 Ml Vial) 0 unit SUBCUT QIDACHS [facility]; Protocol Last Admin: 02/25/22 11:56 Dose: 6 unit Documented By: MARTY Lidocaine (Lidocaine 4 % Patch Adh..Patch) 2 patch TRANSDERMA DAILY PRN PRN Reason: Pain, Severe (Pain Scale 7-10) Lisinopril (Lisinopril 10 Mg Tablet) 30 mg PO DAILY [facility]; Protocol Last Admin: 02/25/22 07:48 Dose: 30 mg Documented By: MARTY Loratadine (Loratadine 10 Mg Tablet) 10 mg PO DAILY PRN PRN Reason: allergy symptoms Methadone HCl (Methadone Hcl 20 Mg/2 Ml Oral.Conc) 10 mg PO ONCE PRN PRN Reason: opioid withdrawals Last Admin: 02/25/22 08:01 Dose: 10 mg Documented By: MARTY Metoprolol Tartrate (Metoprolol Tartrate 100 Mg Tablet) 100 mg PO BID [facility]; Protocol Last Admin: 02/25/22 07:48 Dose: 100 mg Documented By: MARTY Metronidazole (Metronidazole 500 Mg Tablet) 500 mg PO Q8H [facility] Last Admin: 02/25/22 07:48 Dose: 500 mg Documented By: MARTY Ondansetron HCl (Ondansetron Hcl 4 Mg/2 Ml Vial) 4 mg IVPUSH Q8H PRN PRN Reason: Nausea and Vomiting Quetiapine Fumarate (Quetiapine Fumarate 50 Mg Tablet) 50 mg PO BEDTIME [facility] Last Admin: 02/24/22 20:48 Dose: 50 mg Documented By: BILL Sodium Chloride (0.9 % Sodium Chloride Flush 3 Ml Syringe) 3 ml IVFLUSH QSHIFT [facility] Last Admin: 02/25/22 07:49 Dose: 3 ml Documented By: MARTY Tamsulosin HCl (Tamsulosin Hcl 0.4 Mg Capsule) 0.4 mg PO DAILY [facility] Last Admin: 02/25/22 07:48 Dose: 0.4 mg Documented By: MARTY Tramadol HCl (Tramadol Hcl 50 Mg Tablet) 50 mg PO TID@0600,1200,1800 [facility] Last Admin: 02/25/22 11:56 Dose: 50 mg Documented By: MARTY Zolpidem Tartrate (Zolpidem Tartrate 5 Mg Tablet) 5 mg PO BEDTIME PRN PRN Reason: insomnia Labs CBC & Chem 7: 02/23/22 05:30 02/23/22 05:30 Labs: Laboratory Results - last 24 hr 02/24/22 02/24/22 02/24/22 11:32 15:09 19:23 POC Glucose 267 H 293 H 283 H 02/25/22 02/25/22 07:24 11:13 POC Glucose 229 H 256 H Microbiology Microbiology Results: Microbiology 02/22/22 20:21 Blood Culture - Preliminary Blood - Venous No growth after 48 hours. 02/22/22 20:21 Blood Culture - Preliminary Blood - Venous No growth after 48 hours. Assessment and Plan (1) Balanitis: Status: Acute (2) Paroxysmal atrial fibrillation with rapid ventricular response: Status: Acute (3) Type 2 diabetes mellitus with hyperglycemia: Status: Acute Plan 51-year-old male with past medical history as mentioned above presents to the hospital with complaints of pain around the penis found to have acute balanitis 1.Acute balanitis - recurrent, has had multiple episodes in the past - anti fungal cream/Flagyl/IV doxycycline (cellulitis) - 2.Paroxysmal AFib - rate controlled - continue apixaban, as well as metoprolol 3.Diabetes - continue home insulin - will add low-dose sliding scale insulin - diabetic diet DVT prophylaxis: Apixaban Full code Patient will require ongoing hospitalization for IV antibiotics to treat balanitis/penis cellulitis Time Spent With Patient Time: Total time managing care of this patient today ____ minutes. Quality Stroke Does the patient have a stroke diagnosis?: No VTE Prior VTE?: No VTE Risk Level:: Medical - low VTE Device Contraindication: Treatment Not Indicated VTE Drug Contraindication: N/A - Med Ordered
[2022-02-25 16:00] VITALS: BP 158/91; PULSE 77; RESP 16; TEMP 36.8; O2SAT 96
[2022-02-25 16:16] LABS: Glucose, Whole Blood 224 mg/dL (60-115)
[2022-02-25] MEDS: Doxycycline Hyclate 100 MG in 0.9 % Sodium Chloride 250 ML 166.7 MG IV (17:27)
[2022-02-25 19:48] LABS: Glucose, Whole Blood 264 mg/dL (60-115)
[2022-02-25] MEDS: QUEtiapine Fumarate 50 MG TABLET PO (19:58)
[2022-02-25] MEDS: Insulin Glargine,Hum.rec.anlog 100 UNIT/ML 10 ML VIAL 30 UNIT SUBCUT (19:59)
[2022-02-25 20:00] VITALS: BP 130/69; PULSE 81; RESP 16; TEMP 37; O2SAT 97
[2022-02-26 03:10] VITALS: BP 164/83; PULSE 79; RESP 16; TEMP 36.4; O2SAT 97
[2022-02-26] MEDS: traMADoL HCL 50 MG TABLET PO ×3 (06:21→20:20)
[2022-02-26 07:08] VITALS: BP 135/80; PULSE 78; RESP 19; TEMP 36.7; O2SAT 92
[2022-02-26 07:16] LABS: Glucose, Whole Blood 290 mg/dL (60-115)
[2022-02-26 07:39] LABS: MANUAL DIFF FLAG NO
[2022-02-26 07:43] LABS: Basophils Percent Auto 0.3 % (0-2); Eosinophils Absolute Auto 0.1 X10*3/uL (0.0-0.4); Hematocrit 45.6 % (42.0-52.0); Hemoglobin 15.3 g/dl (14.0-18.0); Imm Gran Pct Auto 1.1 % (0.0-0.4); Lymphocytes Absolute Auto 2.6 X10*3/uL (1.2-4.9); Lymphocytes Percent Auto 28.1 % (20-40); Mean Corpuscular HGB Conc 33.6 g/dl (31.0-36.0); Mean Corpuscular Hemoglobin 29.2 pg (27.0-33.0); Mean Platelet Volume 9.4 fL (9.4-12.4); Monocytes Absolute Auto 0.6 X10*3/uL (0.1-1.2); Monocytes Percent Auto 6.6 % (2-11); Neutrophils Absolute Auto 5.7 x10*3/uL (2.0-8.3); Neutrophils Percent Auto 62.9 % (45-73); Platelet Count 326 X10*3/uL (160-400); Red Blood Count 5.24 X10*6/uL (4.60-5.80); Red Cell Distribution Width 11.8 % (11.0-16.0); White Blood Count 9.1 X10*3/uL (4.8-10.8)
[2022-02-26] MEDS: 0.9 % Sodium Chloride Flush 3 ML SYRINGE IVFLUSH (08:15)
[2022-02-26] MEDS: Doxycycline Hyclate 100 MG in 0.9 % Sodium Chloride 250 ML 166.67 MG IV (08:15)
[2022-02-26] MEDS: Insulin Lispro 100 UNIT/ML 3 ML VIAL SUBCUT ×4 (08:15→20:17)
[2022-02-26] MEDS: lisinopriL 10 MG TABLET 30 MG PO (08:16)
[2022-02-26] MEDS: Metoprolol Tartrate 100 MG TABLET PO ×2 (08:16→20:16)
[2022-02-26] MEDS: Escitalopram Oxalate 20 MG TABLET PO (08:16)
[2022-02-26] MEDS: Tamsulosin HCL 0.4 MG CAPSULE PO (08:16)
[2022-02-26] MEDS: Furosemide 20 MG TABLET PO (08:16)
[2022-02-26] MEDS: metroNIDAZOLE 500 MG TABLET PO ×2 (08:16→17:07)
[2022-02-26] MEDS: busPIRone HCl 10 MG TABLET 30 MG PO ×2 (08:17→20:16)
[2022-02-26] MEDS: Clotrimazole 1 % Cream 15 GM TUBE 1 APPL TOPICAL ×2 (08:17→20:17)
[2022-02-26] MEDS: Apixaban 5 MG TABLET PO ×2 (08:17→20:17)
--- NOTE | 2022-02-26 10:40 | P.PNIM_ITS ---
Subjective Subjective Date of Service: 02/26/22 Interval History: Admitted with balanitis/cellulitis of penis. Slowly improving. No acute issues overnight Review of Systems Denies chest pain Denies shortness of breath Denies nausea vomiting diarrhea Denies fever chills Physical Exam Vital Signs: Vital Signs: Last Vital Signs Temp 98.1 F 02/26/22 07:08 Pulse 78 02/26/22 07:08 Resp 19 02/26/22 07:08 BP 135/80 02/26/22 07:08 Pulse Ox 92 02/26/22 07:08 O2 Del Method 02/26/22 07:08 BMI result Body Mass Index 42.1 Const: Other: Awake alert no acute distress Resp: Other: Clear to auscultation bilaterally no rales rhonchi or wheezes Cardio: Other: No S4; positive S1-S2; no S3 murmurs rubs or gallops : Other: Foreskin it cracked and erythematous over the glans no drainage noted Extrem: Other: No edema bilaterally Objective Data Active Medications Acetaminophen (Acetaminophen 325 Mg Tablet) 650 mg PO Q6H PRN PRN Reason: Pain, Mild (Pain Scale 1-3) Albuterol Sulfate (Albuterol Sulfate 90 Mcg 8 Gm Inhaler) 2 puff INHALE Q8H PRN PRN Reason: shortness of breath or wheezing Apixaban (Apixaban 5 Mg Tablet) 5 mg PO BID [facility] Last Admin: 02/26/22 08:17 Dose: 5 mg Documented By: SABRINA Buspirone HCl (Buspirone Hcl 10 Mg Tablet) 30 mg PO TID [facility] Last Admin: 02/26/22 08:17 Dose: 30 mg Documented By: SABRINA Clotrimazole (Clotrimazole 1 % Cream 15 Gm Tube) 1 appl TOPICAL BID [facility]; Protocol Last Admin: 02/26/22 08:17 Dose: 1 appl Documented By: SABRINA Dextrose (Dextrose 50 % 25 Gm/50 Ml Syringe) 25 gm IVPUSH Q15M PRN; Protocol PRN Reason: per Hypoglycemia Standing Ord. Docusate Sodium (Docusate Sodium 100 Mg Capsule) 100 mg PO DAILY PRN PRN Reason: Constipation Escitalopram Oxalate (Escitalopram Oxalate 20 Mg Tablet) 20 mg PO DAILY [facility] Last Admin: 02/26/22 08:16 Dose: 20 mg Documented By: SABRINA Furosemide (Furosemide 20 Mg Tablet) 20 mg PO DAILY [facility]; Protocol Last Admin: 02/26/22 08:16 Dose: 20 mg Documented By: SABRINA Glucose (Glucose Gel 15 Gm Gel..Gram.) 15 gm PO Q15M PRN; Protocol PRN Reason: per Hypoglycemia Standing Ord. Hydroxyzine HCl (Hydroxyzine Hcl 25 Mg Tablet) 25 mg PO TID PRN PRN Reason: for anxiety Doxycycline Hyclate 100 mg/ (Sodium Chloride) 250 mls @ 166.67 mls/hr IV Q12H [facility] Last Infusion: 02/26/22 10:13 Dose: 0 mls/hr Documented By: SABRINA Insulin Glargine (Insulin Glargine,Hum.Rec.Anlog 100 Unit/Ml 10 Ml Vial) 30 unit SUBCUT BEDTIME [facility] Last Admin: 02/25/22 19:59 Dose: 30 unit Documented By: HILARIA Insulin Human Lispro (Insulin Lispro 100 Unit/Ml 3 Ml Vial) 0 unit SUBCUT QIDACHS [facility]; Protocol Last Admin: 02/26/22 08:15 Dose: 6 unit Documented By: SABRINA Lidocaine (Lidocaine 4 % Patch Adh..Patch) 2 patch TRANSDERMA DAILY PRN PRN Reason: Pain, Severe (Pain Scale 7-10) Lisinopril (Lisinopril 10 Mg Tablet) 30 mg PO DAILY [facility]; Protocol Last Admin: 02/26/22 08:16 Dose: 30 mg Documented By: SABRINA Loratadine (Loratadine 10 Mg Tablet) 10 mg PO DAILY PRN PRN Reason: allergy symptoms Methadone HCl (Methadone Hcl 20 Mg/2 Ml Oral.Conc) 10 mg PO ONCE PRN PRN Reason: opioid withdrawals Last Admin: 02/25/22 08:01 Dose: 10 mg Documented By: MARTY Metoprolol Tartrate (Metoprolol Tartrate 100 Mg Tablet) 100 mg PO BID [facility]; Protocol Last Admin: 02/26/22 08:16 Dose: 100 mg Documented By: ASBRINA Metronidazole (Metronidazole 500 Mg Tablet) 500 mg PO Q8H [facility] Last Admin: 02/26/22 08:16 Dose: 500 mg Documented By: SABRINA Ondansetron HCl (Ondansetron Hcl 4 Mg/2 Ml Vial) 4 mg IVPUSH Q8H PRN PRN Reason: Nausea and Vomiting Quetiapine Fumarate (Quetiapine Fumarate 50 Mg Tablet) 50 mg PO BEDTIME [facility] Last Admin: 02/25/22 19:58 Dose: 50 mg Documented By: HILARIA Sodium Chloride (0.9 % Sodium Chloride Flush 3 Ml Syringe) 3 ml IVFLUSH QSHIFT [facility] Last Admin: 02/26/22 08:15 Dose: 3 ml Documented By: SABRINA Tamsulosin HCl (Tamsulosin Hcl 0.4 Mg Capsule) 0.4 mg PO DAILY [facility] Last Admin: 02/26/22 08:16 Dose: 0.4 mg Documented By: SABRINA Tramadol HCl (Tramadol Hcl 50 Mg Tablet) 50 mg PO TID@0600,1200,1800 [facility] Last Admin: 02/26/22 06:21 Dose: 50 mg Documented By: HILARIA Zolpidem Tartrate (Zolpidem Tartrate 5 Mg Tablet) 5 mg PO BEDTIME PRN PRN Reason: insomnia Labs CBC & Chem 7: 02/26/22 07:29 02/23/22 05:30 Labs: Laboratory Results - last 24 hr 02/25/22 02/25/22 02/25/22 11:13 16:12 19:22 MCV MCH MCHC RDW Plt Count MPV Immature Gran % (Auto) Neut % (Auto) Lymph % (Auto) [place] % (Auto) Eos % (Auto) Baso % (Auto) Lymph # (Auto) [place] # (Auto) Eos # (Auto) Baso # (Auto) Abs Immat Gran (auto) Absolute Neuts (auto) Absolute Nucleated RBC Nucleated RBC % (auto) POC Glucose 256 H 224 H 264 H 02/26/22 02/26/22 07:07 07:29 MCV 87.0 MCH 29.2 MCHC 33.6 RDW 11.8 Plt Count 326 MPV 9.4 Immature Gran % (Auto) 1.1 H Neut % (Auto) 62.9 Lymph % (Auto) 28.1 [place] % (Auto) 6.6 Eos % (Auto) 1.0 Baso % (Auto) 0.3 Lymph # (Auto) 2.6 [place] # (Auto) 0.6 Eos # (Auto) 0.1 Baso # (Auto) 0.0 Abs Immat Gran (auto) 0.10 H Absolute Neuts (auto) 5.7 Absolute Nucleated RBC 0.000 Nucleated RBC % (auto) 0.0 POC Glucose 290 H Assessment and Plan (1) Balanitis: Status: Acute (2) Type 2 diabetes mellitus with hyperglycemia: Status: Acute Plan 51-year-old male with past medical history as mentioned above presents to the hospital with complaints of pain around the penis found to have acute balanitis 1.Acute balanitis - recurrent, has had multiple episodes in the past... Slowly improving - anti fungal cream/Flagyl/IV doxycycline (cellulitis) - 2.Paroxysmal AFib - rate controlled - continue apixaban, as well as metoprolol 3.Diabetes - continue home insulin - will add low-dose sliding scale insulin - diabetic diet DVT prophylaxis: Apixaban Full code Patient will require ongoing hospitalization for IV antibiotics to treat balanitis/penis cellulitis Time Spent With Patient Time: Total time managing care of this patient today ____ minutes. Quality Stroke Does the patient have a stroke diagnosis?: No VTE Prior VTE?: No VTE Risk Level:: Medical - low VTE Device Contraindication: Treatment Not Indicated VTE Drug Contraindication: N/A - Med Ordered
[2022-02-26 11:26] LABS: Glucose, Whole Blood 339 mg/dL (60-115)
[2022-02-26 15:49] VITALS: BP 141/86; PULSE 83; RESP 20; TEMP 36.3; O2SAT 97
[2022-02-26 16:26] LABS: Glucose, Whole Blood 221 mg/dL (60-115)
[2022-02-26 20:00] VITALS: BP 137/74; PULSE 82; RESP 21; TEMP 37.2; O2SAT 97
[2022-02-26 20:13] LABS: Glucose, Whole Blood 282 mg/dL (60-115)
[2022-02-26] MEDS: Insulin Glargine,Hum.rec.anlog 100 UNIT/ML 10 ML VIAL 30 UNIT SUBCUT (20:17)
[2022-02-26] MEDS: QUEtiapine Fumarate 50 MG TABLET PO (20:17)
--- NOTE | 2022-02-26 22:35 | MHC.PIE ---
p; pt pulled out iv, refusing iv incertions per previous rn i; dr jauregui notified e; will cont to monitor
[2022-02-27 03:31] VITALS: BP 136/62; PULSE 83; RESP 20; TEMP 37.1; O2SAT 98
[2022-02-27 07:47] LABS: Glucose, Whole Blood 264 mg/dL (60-115)
[2022-02-27 08:00] VITALS: BP 158/94; PULSE 83; RESP 18; TEMP 36.3; O2SAT 97
[2022-02-27] MEDS: Insulin Lispro 100 UNIT/ML 3 ML VIAL SUBCUT ×2 (08:13→12:06)
[2022-02-27] MEDS: Doxycycline Monohydrate 100 MG CAPSULE PO (08:14)
[2022-02-27] MEDS: Metoprolol Tartrate 100 MG TABLET PO (08:15)
[2022-02-27] MEDS: metroNIDAZOLE 500 MG TABLET PO (08:15)
[2022-02-27] MEDS: lisinopriL 10 MG TABLET 30 MG PO (08:15)
--- NOTE | 2022-02-27 10:10 | PM.DS ---
DS: Providers Provider Date of Service: 02/27/22 Date of admission: 02/23/22 00:16 Date of discharge: 02/27/22 Primary care physician: Julio Carter MD DS: Diagnosis Discharge Diagnosis (1) Balanitis: Status: Acute (2) Type 2 diabetes mellitus with hyperglycemia: Status: Acute DS: Summary Hospital Course Hospital Course: 51-year-old male with past medical history of Joey itis with recurrence, paroxysmal AFib, history of substance abuse, diabetes, BPH, asthma, HTN, depression, morbid obesity, osteoarthritis, presents the hospital with complaints of significant pain redness and swelling of his penis.? Patient reports that he gets recurrent infection around that of his pain is where he becomes red, the skin starts tearing, he has significant pain when he pees and the urine touches the glans penis.? Reports no fever or chills, denies any other review of system cleaning no chest pain, no shortness of breath, no palpitations no abdominal pain nausea or vomiting, no diarrhea or constipation, no urinary symptoms besides the mentioned and no lower extremity edema.? ?on arrival to the ED patient hemodynamically stable with? with a WBC count of 8.6, UA negative for acute infection, urine drug screen is positive for opioids, fentanyl, cocaine and marijuana gonorrhea negative, chlamydia negative, Hospital Course Patient admitted started on doxycycline and Flagyl and slowly progressed over the next several days. At this point in time he has improved to the point where he can retract his foreskin and urinate without difficulty. He will be discharged home to complete a course of doxycycline and Flagyl and can follow-up with his PCP Time Spent with Patient Time attestation: Total time managing care of this patient today ____ minutes. Discharge coordination time: Greater than 30 minutes Quality: Safe Use of Opioids Does Pt have an Active Cancer Diagnosis on the Problem List?: No Quality: Stroke Does the patient have a stroke diagnosis?: No Physical Exam Vital Signs: Vital Signs: Last Vital Signs Temp 97.3 F 02/27/22 08:00 Pulse 83 02/27/22 08:00 Resp 18 02/27/22 08:00 BP 158/94 H 02/27/22 08:00 Pulse Ox 97 02/27/22 08:00 O2 Del Method 02/27/22 08:00 BMI result Body Mass Index 42.1 Const: Other: Awake alert no acute distress Resp: Other: Clear to auscultation bilaterally no rales rhonchi or wheezes Cardio: Other: No S4; positive S1-S2; no S3 murmurs rubs or gallops : Other: Foreskin it cracked and erythematous over the glans no drainage noted Extrem: Other: No edema bilaterally DS: Data Data Completed and Pending Labs on day of discharge: Laboratory Results - last 24 hr 02/26/22 02/26/22 02/26/22 11:09 16:15 20:10 POC Glucose 339 H 221 H 282 H 02/27/22 07:38 POC Glucose 264 H Preliminary micro results at discharge 02/22/22 20:21 Blood Culture - Preliminary Blood - Venous No growth after 48 hours. 02/22/22 20:21 Blood Culture - Preliminary Blood - Venous No growth after 48 hours. Discharge Plan Discharge Patient Disposition: Home, Self-Care Discharge Diagnosis: Balanitis Referrals: Julio Carter MD [Primary Care Provider] - 02/28/22 2:15 pm (you have a follow up appointment with pcp. call office if you need to reschedule ) Discharge Medications: New metronidazole 500 mg Tablet 500 mg PO Q8H Qty: 15 0RF doxycycline hyclate 100 mg tablet 100 mg PO BID Qty: 10 0RF Continued (DME) lancets 28 gauge misc See Rx Instructions topical TID Qty: 100 0RF Rx Instructions: As directed metoprolol tartrate 50 mg tablet 100 mg PO BID Qty: 60 0RF (DME) pen needle, diabetic 31 gauge x 3/16 needle See Rx Instructions subcut .MEDSUPPLY Qty: 50 3RF Rx Instructions: One daily albuterol sulfate 90 mcg/actuation HFA aerosol inhaler 2 puff PO Q8H PRN (Reason: shortness of breath or wheezing) 30 Days Qty: 8.5 3RF (DME) FreeStyle Lite Strips Strip See Rx Instructions .ROUTE .MEDSUPPLY Qty: 100 12RF Rx Instructions: As directed three times a day buspirone 30 mg tablet 30 mg PO TID Qty: 90 1RF tamsulosin 0.4 mg capsule 0.4 mg PO DAILY Qty: 30 1RF Label Comments: pt takes it sometimes escitalopram oxalate 20 mg tablet 20 mg PO DAILY Qty: 30 1RF quetiapine 50 mg tablet 50 mg PO BEDTIME Qty: 30 0RF lisinopril 30 mg tablet 30 mg PO DAILY Qty: 90 0RF zolpidem 10 mg tablet 10 mg PO BEDTIME PRN (Reason: insomnia) 30 Days Qty: 30 1RF furosemide [Lasix] 20 mg tablet 20 mg PO DAILY 15 Days Qty: 15 0RF Rx Instructions: pt report he takes it sometimes hydroxyzine HCl 25 mg tablet 25 mg PO TID PRN (Reason: for anxiety) Qty: 90 0RF Eliquis 5 mg tablet 5 mg PO BID 30 Days Qty: 60 2RF tramadol 50 mg tablet 50 mg PO TID PRN (Reason: pain) 30 Days Qty: 90 0RF clotrimazole 1 % cream 1 appl topical BID 147 Days Qty: 15 0RF diclofenac sodium [Voltaren Arthritis Pain] 1 % gel 2 g topical QID Qty: 100 0RF Rx Instructions: apply to single elbow, wrist or hand; for hand includes palm/fingers/back of hand tramadol 50 mg tablet 1 tab PO TID (DME) richard.[email or web address],knee,reg,xlrg Misc See Rx Instructions .Route Qty: 12 0RF Rx Instructions: As directed lidocaine 5 % adhesive patch,medicated 2 patch topical DAILY PRN (Reason: pain) Qty: 60 5RF Rx Instructions: leave on most painful area for up to 12 hrs. keep off for 12 hrs metformin 1,000 mg tablet 1,000 mg PO BID Qty: 60 3RF cetirizine 10 mg tablet 10 mg PO DAILY PRN (Reason: allergy symptoms) 90 Days Qty: 90 3RF (DME) blood-glucose meter [FreeStyle [place] Lite] Kit See Rx Instructions .Route Qty: 1 0RF Rx Instructions: As directed checks 4X day insulin glargine [Lantus Solostar U-100 Insulin] 100 unit/mL (3 mL) insulin pen 30 unit subcut BEDTIME Qty: 15 6RF Trulicity 1.5 mg/0.5 mL pen injector 1.5 mg subcut QWEEK Qty: 2 5RF Discharge Orders: Discharge Order (Routine); Ordered 02/27/22 Ordered By: Luis Mora Diet: Advance to usual diet Activity on Discharge: As tolerated Stand Alone Forms: Patient Portal Discharge page Care Plan Goals: Complete course of Flagyl 3 times a day for 5 days along with doxycycline twice a day for 5 days. No alcohol with Flagyl Health Concerns: Follow-up with PCP 2 weeks Plan of Treatment: Continue creams as ordered Assessment: See discharge summary
--- NOTE | 2022-02-27 10:19 | MHC.CM.PN ---
Addendum entered by Elise White 02/27/22 11:19: TRANSPORT ARRANGED VIA C SHUTTLE FOR 1330 HOURS Original Note: PT WILL DC HOME TODAY WITH NO SERVICES SHUTTLE TRANSPORT WILL BE ARRANGED
--- NOTE | 2022-02-27 10:27 | MHC.RECOVRN ---
Met with pt to f/u regarding withdrawal symptoms. Pt states This is the only time I haven't gotten sick. Pt received one 10 mg prn methadone on 02/25 am, no other medications for withdrawal. Pt reports feeling much better and will dc home today.
[2022-02-27 11:23] LABS: Glucose, Whole Blood 266 mg/dL (60-115)
== END 2022-02-27 13:05 | disposition home or self-care (01) ==
LOC: HO.ED 20:19 → HO.EDOVER 02-23 00:30 → HO.S3 02-23 16:45
PROVIDERS: Nurse Practitioner Family; Admitting Provider Internal Medicine; Emergency Provider Emergency Medicine; PCP Internal Medicine; Visit Provider Hospitalist
DX: N48.1 Balanitis (principal); R65.10 Systemic inflammatory response syndrome (SIRS) of non-infectious origin without acute organ dysfunction; E11.65 Type 2 diabetes mellitus with hyperglycemia; L03.116 Cellulitis of left lower limb; L03.115 Cellulitis of right lower limb; M25.562 Pain in left knee; M25.561 Pain in right knee; M54.50 Low back pain, unspecified; Z20.822 Contact with and (suspected) exposure to COVID-19; F11.20 Opioid dependence, uncomplicated; I10 Essential (primary) hypertension; I48.0 Paroxysmal atrial fibrillation; F19.10 Other psychoactive substance abuse, uncomplicated; E66.9 Obesity, unspecified; Z68.41 Body mass index [BMI] 40.0-44.9, adult; Z79.4 Long term (current) use of insulin; Z79.899 Other long term (current) drug therapy; Z79.01 Long term (current) use of anticoagulants
CPT/HCPCS: 0241U; 36415; 80048; 80076; 80307; 81001; 82947; 83605; 83735; 83880; 85025; 87040; 87491; 87591; 96365; 96366; 96367; 99218; 99285; J3370

== ENCOUNTER 2022-03-07 15:54 | Inpatient (IN) | payer OTHER, SELFPAY ==
[2022-03-07] VITALS (11 sets, daily range): BP systolic 109–152; BP diastolic 56–114; PULSE 105–180; RESP 16–25; TEMP 36.9–37.1; O2SAT 98–99; BMI 41.8
--- NOTE | ~2022-03-07 | XR_ITS ---
EXAMINATION: XR CHEST CLINICAL INFORMATION: Shortness of breath. Tachycardia. COMPARISON: Chest x-ray 12/08/2021 TECHNIQUE: Frontal portable view of the chest was obtained. 4:09 PM FINDINGS: No significant abnormality is noted involving the heart, lungs, mediastinum, bony thorax or soft tissues. XR/XR chest 1V IMPRESSION: Unremarkable examination.
--- NOTE | 2022-03-07 16:05 | ECG_ITS ---
Test Reason : HIGH HR Blood Pressure : / mmHG Vent. Rate : 176 BPM Atrial Rate : 176 BPM P-R Int : 098 ms QRS Dur : 086 ms QT Int : 288 ms P-R-T Axes : 000 067 -68 degrees QTc Int : 492 ms Possible aflultter with 2:[address] conduction [address]T Marked ST abnormality, possible inferior subendocardial injury Abnormal ECG When compared to the previous EKG of Supraventricular tachycardia / atrial flutter has replaced Normal sinus rhythm Referred By: Pete Jones Electronically Signed By:SAMIRA TAYLOR MD
--- NOTE | 2022-03-07 16:07 | ED.ARRPALP ---
HPI - Arrhythmia/Palpitations General Chief Complaint: Arrhythmia/Palpitations Stated Complaint: FAST HR 180,ADENOSINE GIVEN W/NO SUCCESS PER EMS Time Seen by Provider: 03/07/22 16:03 Source: patient and EMS Mode of arrival: EMS Limitations: no limitations History of Present Illness HPI narrative: 51-year-old male who presents emergency department complaining of weakness and palpitations. Patient states he started to feel bad yesterday (2 days prior to coming to emergency department). Patient states that he was feeling weak. He states he could feel like his heart was beating fast beating hard. He denied fever, chills, rhinorrhea, sore throat, cough, shortness of breath or dyspnea on exertion. Patient states he did use 2 bags of heroin intranasally on 03/05/2022 ( 3 days priorl). The patient was found to be in an SVT with a rate of 180. the paramedics gave a adenosine 6 mg, 12 mg and 12 mg and reports that the patient's rate slow down but the patient did not break. The patient did demonstrate flutter waves which is consistent with atrial flutter. In reviewing the patient's records, he does have a history of atrial fibrillation / flutter with rapid RVR. . The patient states that he is supposed to take medications, including metoprolol and Eliquis but he is not compliant with his medications. Related Data Home Medications Medication Instructions Recorded Confirmed diclofenac sodium 1 % topical gel 2 g topical QID PRN Pain 03/07/22 03/07/22 (Voltaren Arthritis Pain) Previous Rx's Medication Instructions Recorded lancets 28 gauge #100 ea 02/07/21 metoprolol tartrate 50 mg tablet 100 mg PO BID #60 tabs 02/07/21 pen needle, diabetic 31 gauge x #50 ea 02/07/2105/25 cetirizine 10 mg tablet 10 mg PO DAILY PRN allergy 02/14/21 symptoms 90 days #90 tabs albuterol sulfate 90 mcg/actuation 2 puff PO Q8H PRN shortness of 07/25/21 aerosol inhaler breath or wheezing 30 days #8.5 grams blood sugar diagnostic (FreeStyle #100 ea 07/28/21 Lite Strips) buspirone 30 mg tablet 30 mg PO TID #90 tabs 09/13/21 tamsulosin 0.4 mg capsule 0.4 mg PO DAILY #30 caps 10/10/21 escitalopram oxalate 20 mg tablet 20 mg PO DAILY #30 tabs 12/05/21 quetiapine 50 mg tablet 50 mg PO BEDTIME #30 tabs 12/07/21 [email or web address],reg,xlrg #12 ea 01/12/22 lidocaine 5 % topical patch 2 patch topical DAILY PRN pain #60 01/12/22 ea metformin 1,000 mg tablet 1,000 mg PO BID #60 tabs 01/12/22 blood-glucose meter (FreeStyle #1 ea 01/13/22 [place] Lite kit) dulaglutide 1.5 mg/0.5 mL 1.5 mg (0.5 mL) subcut QWEEK #2 mL 01/13/22 subcutaneous pen injector (Trulicity) insulin glargine 100 unit/mL (3 30 unit (0.3 mL) subcut BEDTIME 01/13/22 mL) subcutaneous pen (Lantus #15 mL Solostar U-100 Insulin) lisinopril 30 mg tablet 30 mg PO DAILY #90 tabs 01/25/22 zolpidem 10 mg tablet 10 mg PO BEDTIME PRN insomnia 30 02/14/22 days #30 tabs hydroxyzine HCl 25 mg tablet 25 mg PO TID PRN for anxiety #90 02/20/22 tabs apixaban 5 mg tablet (Eliquis) 5 mg PO BID 30 days #60 tabs 02/24/22 tramadol 50 mg tablet 50 mg PO TID PRN pain 30 days #90 02/24/22 tabs furosemide 20 mg tablet (Lasix) 20 mg PO DAILY 15 days #15 tabs 03/01/22 Allergies Allergy/AdvReac Type Severity Reaction Status Date / Time Penicillins [PENICILLINS] Allergy Unknown RASH Verified 01/13/22 13:29 Review of Systems Review of Systems: Yes all other systems are reviewed and are negative [facility] Past Medical History [facility] Narrative: social history: The patient denies tobacco use. He occasionally drinks alcohol. He does use intranasal opiates and last used intranasal heroin 3 days prior Medical History Anxiety Arthritis Asthma Benign essential hypertension BPH (benign prostatic hyperplasia) Depression Diabetes Family history of thyroid disorder Insomnia Lumbar degenerative disc disease Morbid obesity with BMI of 40.0-44.9, adult Overactive bladder Paroxysmal atrial fibrillation with rapid ventricular response Polysubstance abuse Primary osteoarthritis of both knees Seizure Substance abuse Type 2 diabetes mellitus with hyperglycemia Surgical History No history of previous surgery Family History Family History Father ETOH abuse Mother Diabetes Arthritis of knee Hypertension Other Mental health problem Substance abuse Social History Social History Household Members: None Household Members Other:: room Housing: House Housing Other:: Room Do you presently have visiting nurse or other home services: No Alcohol intake: current Alcohol intake frequency: does not drink Patient Tobacco Use Status: Never used Tobacco Smoked in Last 30 Days: No e-Cigarette/Vaping Use: Never Used Second Hand Smoke Exposure: Yes Use of substances other than those prescribed or required for medical reasons: Yes Substance Use Type: Heroin Substance Use Frequency: Weekly Last Used Substance: Days (ago) Advance Directives: No Advance Directives Information Provided: No service: No Current occupational status: unemployed and disabled Cognitive needs: No Hearing needs: No Vision needs: No Physical Exam Vital Signs: Vital Signs: Last Vital Signs Temp 98.4 F 03/07/22 22:24 Pulse 130 H 03/07/22 22:24 Resp 16 03/07/22 22:24 BP 109/56 L 03/07/22 22:24 Pulse Ox 98 03/07/22 22:24 O2 Del Method 03/07/22 22:24 BMI result Body Mass Index 41.8 Const: General: cooperative and no acute distress Orientation/consciousness: oriented to person and oriented to place Limitations: no limitations HEENT: Head: Yes normal to inspection, Yes normocephalic and Yes atraumatic Ears: external ears normal General nose exam: Normal external nose present Face and sinus: Yes normal facial exam Mouth: Normal oral and palatal mucosa present Throat: Yes posterior oropharynx normal Eyes: General: appearance normal, both eyes and all related structures Pupils: Equal, round and reactive pupils present Neck: Neck: Yes normal visual inspection, Yes no lymphadenopathy, Yes trachea midline and Yes supple Chest: Chest palpation & inspection: normal inspection of the chest and normal palpation of entire chest wall Resp: Effort & Inspection: normal respiratory effort and able to speak in complete sentences Auscultation: clear to auscultation bilaterally Cardio: Rate: regular rate and tachycardic Rhythm: abnormal rhythm irregularly irregular Heart sounds: S1 normal heart sound present, S2 normal heart sound present and no murmurs GI: Inspection: Yes normal to inspection Palpation (GI): Soft to palpation, nontender and no guarding Auscultation: normal bowel sounds : General: Yes no CVA tenderness Back/Spine/Pelvis: Back: no CVA tenderness Skin: General skin exam: no rashes or lesions noted Neuro: General: oriented to person and oriented to place Cranial nerves: Yes CN's II-XII intact bilaterally and Yes Equal, round and reactive pupils present Cognition (Neuro): normal cognition Motor exam (neuro): 5/5 motor strength present throughout Extrem: General: Yes normal to inspection Psych: Appearance: grossly normal Speech and movement: Normal speech and movement present Affect: normal affect Attitude: cooperative Thought process: Normal thought process present Thought content: Normal thought content present Course Course Course Narrative: 51-year-old male who presents emergency department for evaluation of weakness, palpitations, past heart x2 days. Patient also reports using intranasal heroin 3 days prior. patient has a known history of atrial fibrillation but has been noncompliant with his medications. He also has diabetes but he states he has been compliant with his diabetes medications. Patient was found to be in an SVT with heart rate of 180 and was given 3 doses of adenosine by the paramedics she revealed that he was in atrial flutter. 1847:Laboratory evaluation: WBC elevated 12,200. sodium low 132. Glucose elevated at 381. High sensitive troponin I detectable but not elevated at 14.4, will be repeated at 19:30 hours. BNP elevated 248. TSH was normal. COVID-19, influenza and RSV were negative. Radiology evaluation: Chest x-ray was negative. High the patient's required repeat boluses of diltiazem with some improvement of his rate. The patient was started on a diltiazem drip. I will discuss admission with the covering hospitalist. I will also discuss the patient with oral anti coagulants versus Lovenox subQ. 2252 : patient remained in atrial flutter with a rapid ventricular response. Patient was treated with digoxin 250 mcg x2, metoprolol 5 mg IV x1 with no improvement of his rate. Patient was given an amiodarone bolus 150 mg IV over 10 minutes and started on amiodarone drip with improvement of his rate. Patient was given Lovenox 135 mg subcutaneously ( 1 milligram/kilogram). His point of care glucose came back greater than 500 but the patient has been drinking cranberry juice. I ordered a 2 L of normal saline IV and regular insulin 10 units IV. I did discuss this treatment with the covering hospitalist, Dr. Ramos. Medications Administered Discontinued Medications Generic Name Dose Route Start Last Admin Trade Name Freq PRN Reason Stop Dose Admin Digoxin 0.25 mg 03/07/22 21:04 03/07/22 21:24 Digoxin 0.5 Mg/2 Ml Ampul IVPUSH 03/07/22 21:05 0.25 mg ONCE STA Administration Digoxin 0.25 mg 03/07/22 21:45 03/07/22 21:50 Digoxin 0.5 Mg/2 Ml Ampul IVPUSH 03/07/22 21:46 0.25 mg ONCE ONE Administration Diltiazem HCl 20 mg 03/07/22 16:05 03/07/22 16:14 Diltiazem Hcl 50 Mg/10 Ml Vial IVPUSH 03/07/22 16:06 20 mg STAT STA Administration Diltiazem HCl 25 mg 03/07/22 16:29 03/07/22 16:41 Diltiazem Hcl 50 Mg/10 Ml Vial IVPUSH 03/07/22 16:30 25 mg STAT STA Administration Diltiazem HCl 25 mg 03/07/22 18:01 03/07/22 18:36 Diltiazem Hcl 50 Mg/10 Ml Vial IVPUSH 03/07/22 18:02 25 mg STAT STA Administration Diltiazem HCl 25 mg 03/07/22 18:50 03/07/22 19:35 Diltiazem Hcl 50 Mg/10 Ml Vial IVPUSH 03/07/22 18:51 25 mg STAT STA Administration Sodium Chloride 1,000 mls @ 999 mls/hr 03/07/22 16:05 03/07/22 17:46 Ns IV 03/07/22 17:05 Infused .Q1H1M STA Infusion Diltiazem HCl 125 mg/ Sodium 125 mls @ 0 mls/hr 03/07/22 18:15 03/07/22 18:36 Chloride IVCONT 10 mg/hr .Q0M SCOTTY 10 mls/hr Administration Protocol Per Protocol Amiodarone HCl 150 mg in 100 mls @ 600 mls/hr 03/07/22 22:09 03/07/22 22:18 Nexterone IV 03/07/22 22:18 600 mls/hr ONCE ONE Administration Metoprolol Tartrate 5 mg 03/07/22 22:04 03/07/22 22:17 Metoprolol Tartrate 5 Mg/5 Ml Vial IVPUSH 03/07/22 22:05 5 mg ONCE STA Administration Medical Decision Making Lab Data Result Diagrams: 03/07/22 16:25 03/07/22 16:25 Labs: Lab Results 03/07/22 03/07/22 03/07/22 Range/Units 16:25 16:25 16:25 WBC 12.2 H (4.8-10.8) X10*3/uL RBC 5.75 (4.60-5.80) X10*6/uL Hgb 16.8 (14.0-18.0) g/dl Hct 48.5 (42.0-52.0) % MCV 84.3 (80.0-98.0) fL MCH 29.2 (27.0-33.0) pg MCHC 34.6 (31.0-36.0) g/dl RDW 11.9 (11.0-16.0) % Plt Count 359 (160-400) X10*3/uL MPV 10.1 (9.4-12.4) fL Immature Gran % (Auto) 1.1 H (0.0-0.4) % Neut % (Auto) 80.5 H (45-73) % Lymph % (Auto) 13.3 L (20-40) % [place] % (Auto) 4.8 (2-11) % Eos % (Auto) 0.1 (0-4) % Baso % (Auto) 0.2 (0-2) % Lymph # (Auto) 1.6 (1.2-4.9) X10*3/uL [place] # (Auto) 0.6 (0.1-1.2) X10*3/uL Eos # (Auto) 0.0 (0.0-0.4) X10*3/uL Baso # (Auto) 0.0 (0.0-0.2) X10*3/uL Abs Immat Gran (auto) 0.14 H (0.00-0.03) X10*3/uL Absolute Neuts (auto) 9.8 H (2.0-8.3) x10*3/uL Absolute Nucleated RBC 0.000 (0.0-0.012) X10*3/uL Nucleated RBC % (auto) 0.0 (0.0-0.2) /100WBC PT 10.7 (10.0-13.1) SEC INR 0.9 (0.9-1.1) APTT 27.8 (26.0-36.4) SEC Sodium 132 L (135-145) mmol/L Potassium 4.9 (3.3-5.1) mmol/L Chloride 98 (96-108) mmol/L Carbon Dioxide 24 (22-29) mmol/L Anion Gap 15 (12-20) BUN 15 (9-16) mg/dL Creatinine 1.29 (0.5-1.4) mg/dL Estim Creat Clear Calc 97.5 Estimated GFR 59 Random Glucose 381 H* (60-115) mg/dL Calcium 9.6 (8.4-10.2) mg/dL Total Bilirubin 0.6 (0.0-1.0) mg/dL AST 24 (5-37) U/L ALT 33 (0-40) U/L Alkaline Phosphatase 110 (39-117) U/L Troponin I High Sens (<3.5-35.0) ng/L B-Natriuretic Peptide (<100) pg/mL Total Protein 7.6 (6.5-8.0) g/dL Albumin 3.8 (3.5-5.0) g/dL Lipase 44 (8-78) U/L TSH 0.97 (0.32-4.0) uIU/mL Urine Opiates Screen (Not Detect) Urine Fentanyl Screen (Not Detect) Ur Barbiturates Screen (Not Detect) Ur Phencyclidine Scrn (Not Detect) Ur Amphetamines Screen (Not Detect) U Benzodiazepines Scrn (Not Detect) Urine Cocaine Screen (Not Detect) U Marijuana (THC) Screen (Not Detect) Influenza Type A (PCR) (Negative) Influenza Type B (PCR) (Negative) RSV RNA Qual (PCR) (Negative) SARS-CoV-2 RNA (RT-PCR) (Negative) 03/07/22 03/07/22 03/07/22 Range/Units 16:25 16:25 16:25 WBC (4.8-10.8) X10*3/uL RBC (4.60-5.80) X10*6/uL Hgb (14.0-18.0) g/dl Hct (42.0-52.0) % MCV (80.0-98.0) fL MCH (27.0-33.0) pg MCHC (31.0-36.0) g/dl RDW (11.0-16.0) % Plt Count (160-400) X10*3/uL MPV (9.4-12.4) fL Immature Gran % (Auto) (0.0-0.4) % Neut % (Auto) (45-73) % Lymph % (Auto) (20-40) % [place] % (Auto) (2-11) % Eos % (Auto) (0-4) % Baso % (Auto) (0-2) % Lymph # (Auto) (1.2-4.9) X10*3/uL [place] # (Auto) (0.1-1.2) X10*3/uL Eos # (Auto) (0.0-0.4) X10*3/uL Baso # (Auto) (0.0-0.2) X10*3/uL Abs Immat Gran (auto) (0.00-0.03) X10*3/uL Absolute Neuts (auto) (2.0-8.3) x10*3/uL Absolute Nucleated RBC (0.0-0.012) X10*3/uL Nucleated RBC % (auto) (0.0-0.2) /100WBC PT (10.0-13.1) SEC INR (0.9-1.1) APTT (26.0-36.4) SEC Sodium (135-145) mmol/L Potassium (3.3-5.1) mmol/L Chloride (96-108) mmol/L Carbon Dioxide (22-29) mmol/L Anion Gap (12-20) BUN (9-16) mg/dL Creatinine (0.5-1.4) mg/dL Estim Creat Clear Calc Estimated GFR Random Glucose (60-115) mg/dL Calcium (8.4-10.2) mg/dL Total Bilirubin (0.0-1.0) mg/dL AST (5-37) U/L ALT (0-40) U/L Alkaline Phosphatase (39-117) U/L Troponin I High Sens 14.4 (<3.5-35.0) ng/L B-Natriuretic Peptide 248 H (<100) pg/mL Total Protein (6.5-8.0) g/dL Albumin (3.5-5.0) g/dL Lipase (8-78) U/L TSH (0.32-4.0) uIU/mL Urine Opiates Screen (Not Detect) Urine Fentanyl Screen (Not Detect) Ur Barbiturates Screen (Not Detect) Ur Phencyclidine Scrn (Not Detect) Ur Amphetamines Screen (Not Detect) U Benzodiazepines Scrn (Not Detect) Urine Cocaine Screen (Not Detect) U Marijuana (THC) Screen (Not Detect) Influenza Type A (PCR) NEGATIVE (Negative) Influenza Type B (PCR) NEGATIVE (Negative) RSV RNA Qual (PCR) NEGATIVE (Negative) SARS-CoV-2 RNA (RT-PCR) NEGATIVE (Negative) 03/07/22 03/07/22 Range/Units 16:46 19:32 WBC (4.8-10.8) X10*3/uL RBC (4.60-5.80) X10*6/uL Hgb (14.0-18.0) g/dl Hct (42.0-52.0) % MCV (80.0-98.0) fL MCH (27.0-33.0) pg MCHC (31.0-36.0) g/dl RDW (11.0-16.0) % Plt Count (160-400) X10*3/uL MPV (9.4-12.4) fL Immature Gran % (Auto) (0.0-0.4) % Neut % (Auto) (45-73) % Lymph % (Auto) (20-40) % [place] % (Auto) (2-11) % Eos % (Auto) (0-4) % Baso % (Auto) (0-2) % Lymph # (Auto) (1.2-4.9) X10*3/uL [place] # (Auto) (0.1-1.2) X10*3/uL Eos # (Auto) (0.0-0.4) X10*3/uL Baso # (Auto) (0.0-0.2) X10*3/uL Abs Immat Gran (auto) (0.00-0.03) X10*3/uL Absolute Neuts (auto) (2.0-8.3) x10*3/uL Absolute Nucleated RBC (0.0-0.012) X10*3/uL Nucleated RBC % (auto) (0.0-0.2) /100WBC PT (10.0-13.1) SEC INR (0.9-1.1) APTT (26.0-36.4) SEC Sodium (135-145) mmol/L Potassium (3.3-5.1) mmol/L Chloride (96-108) mmol/L Carbon Dioxide (22-29) mmol/L Anion Gap (12-20) BUN (9-16) mg/dL Creatinine (0.5-1.4) mg/dL Estim Creat Clear Calc Estimated GFR Random Glucose (60-115) mg/dL Calcium (8.4-10.2) mg/dL Total Bilirubin (0.0-1.0) mg/dL AST (5-37) U/L ALT (0-40) U/L Alkaline Phosphatase (39-117) U/L Troponin I High Sens 22.3 D (<3.5-35.0) ng/L B-Natriuretic Peptide (<100) pg/mL Total Protein (6.5-8.0) g/dL Albumin (3.5-5.0) g/dL Lipase (8-78) U/L TSH (0.32-4.0) uIU/mL Urine Opiates Screen Not Detected (Not Detect) Urine Fentanyl Screen POSITIVE H (Not Detect) Ur Barbiturates Screen Not Detected (Not Detect) Ur Phencyclidine Scrn Not Detected (Not Detect) Ur Amphetamines Screen Not Detected (Not Detect) U Benzodiazepines Scrn Not Detected (Not Detect) Urine Cocaine Screen Not Detected (Not Detect) U Marijuana (THC) Screen Not Detected (Not Detect) Influenza Type A (PCR) (Negative) Influenza Type B (PCR) (Negative) RSV RNA Qual (PCR) (Negative) SARS-CoV-2 RNA (RT-PCR) (Negative) Critical Care Time Critical Care Time Critical Care Time: Yes Total Critical Care Time: 75 Attestation: Critical Care: The patient was critically ill with a high probability of imminent or life threatening deterioration. I spent greater than 30 minutes of discontinuous time evaluating the patient,delivering critical care at the bedside, discussing and evaluating pertinent data with consultants. Critical care time does not include time spent performing separately billable procedures or teaching. Total time spent performing critical care was 75 minutes. Discharge Plan Discharge Clinical Impression: Atrial flutter with rapid ventricular response, Opiate use, Medically noncompliant, Acute hyperglycemia Patient Disposition: Admitted As Inpatient
[2022-03-07] MEDS: dilTIAZem HCL 50 MG/10 ML VIAL 20 MG IVPUSH (16:14)
[2022-03-07] MEDS: 0.9 % Sodium Chloride 1,000 ML 999 ML IV ×2 (16:16→23:20)
[2022-03-07 16:31] LABS: MANUAL DIFF FLAG NO
--- NOTE | 2022-03-07 16:33 | PC.NURSE ---
Pt reports dizziness today, found to be in SVT on EMS arrival. HR 180s on arrival to ED, a flutter noted on EMS EKG when HR slowed briefly. Pt has H/O, not compliant with home meds or blood thinners. Pt denies SOB or fatigue, reports dizziness only. Medicated as charted. HR 140s at this time. Fluids infusing. Blood drawn/sent. Breathing even/unlabored. Skin pwd. Pacer pads inplace for precaution.
[2022-03-07 16:34] LABS: Basophils Percent Auto 0.2 % (0-2); Eosinophils Percent Auto 0.1 % (0-4); Hematocrit 48.5 % (42.0-52.0); Hemoglobin 16.8 g/dl (14.0-18.0); Imm Gran Abs Auto 0.14 X10*3/uL (0.00-0.03); Imm Gran Pct Auto 1.1 % (0.0-0.4); Lymphocytes Absolute Auto 1.6 X10*3/uL (1.2-4.9); Lymphocytes Percent Auto 13.3 % (20-40); Mean Corpuscular HGB Conc 34.6 g/dl (31.0-36.0); Mean Corpuscular Hemoglobin 29.2 pg (27.0-33.0); Mean Corpuscular Volume 84.3 fL (80.0-98.0); Mean Platelet Volume 10.1 fL (9.4-12.4); Monocytes Absolute Auto 0.6 X10*3/uL (0.1-1.2); Monocytes Percent Auto 4.8 % (2-11); Neutrophils Absolute Auto 9.8 x10*3/uL (2.0-8.3); Neutrophils Percent Auto 80.5 % (45-73); Platelet Count 359 X10*3/uL (160-400); Red Blood Count 5.75 X10*6/uL (4.60-5.80); Red Cell Distribution Width 11.9 % (11.0-16.0); White Blood Count 12.2 X10*3/uL (4.8-10.8)
[2022-03-07 16:38] LABS: INTERNATIONAL NORM RATIO 0.9 (0.9-1.1); Prothrombin Time 10.7 SEC (10.0-13.1)
[2022-03-07 16:41] LABS: Partial Thromboplastin Time 27.8 SEC (26.0-36.4)
[2022-03-07] MEDS: dilTIAZem HCL 50 MG/10 ML VIAL 25 MG IVPUSH ×3 (16:41→19:35)
[2022-03-07 17:01] LABS: B Type Natriuretic Peptide 248 pg/mL (<100)
[2022-03-07 17:03] LABS: Troponin-I High Sensitivity 14.4 ng/L (<3.5-35.0)
[2022-03-07 17:05] LABS: Amphetamine Screen Urine Not Detected (Not Detect); Barbiturates, Urine Not Detected (Not Detect); Benzodiazepines Screen Urine Not Detected (Not Detect); Cannabinoid Screen Urine Not Detected (Not Detect); Cocaine Screen Urine Not Detected (Not Detect); Fentanyl, urine POSITIVE (Not Detect); Opiate Screen Urine Not Detected (Not Detect); Phencyclidine Screen Urine Not Detected (Not Detect)
[2022-03-07 17:17] LABS: Influenza A PCR NEGATIVE (Negative); Influenza B PCR NEGATIVE (Negative); Resp Syncy Virus RNA Qual PCR NEGATIVE (Negative); SARS COV2 PCR INHOUSE NEGATIVE (Negative)
[2022-03-07 17:28] LABS: Alanine Aminotransferase 33 U/L (0-40); Albumin Level 3.8 g/dL (3.5-5.0); Alkaline Phosphatase 110 U/L (39-117); Anion Gap 15 (12-20); Aspartate Amino Transferase 24 U/L (5-37); Bilirubin Total 0.6 mg/dL (0.0-1.0); Blood Urea Nitrogen 15 mg/dL (9-16); Calcium 9.6 mg/dL (8.4-10.2); Carbon Dioxide 24 mmol/L (22-29); Chloride 98 mmol/L (96-108); Creatinine Clr Calc Pharmacy 97.5; Estimated Glomerular Filt Rate 59; Glucose Random 381 mg/dL (60-115); Lipase 44 U/L (8-78); Potassium 4.9 mmol/L (3.3-5.1); Sodium 132 mmol/L (135-145); TSH reflex Free T4 0.97 uIU/mL (0.32-4.0); Total Protein 7.6 g/dL (6.5-8.0)
--- NOTE | 2022-03-07 18:20 | PC.NURSE ---
HR has trended back to 170-180s after pt yelling for food. Dr Karen mancilla.
[2022-03-07] MEDS: dilTIAZem HCL 125 MG in 0.9 % Sodium Chloride 100 ML 10 MG IVCONT (18:36)
--- NOTE | 2022-03-07 19:45 | PHA.MEDREC ---
Pharmacy Consult ? Medication Reconciliation Pharmacy has completed the medication reconciliation.
[2022-03-07 20:23] LABS: Troponin-I High Sensitivity 22.3 ng/L (<3.5-35.0)
[2022-03-07] MEDS: Digoxin 0.5 MG/2 ML AMPUL 0.25 MG IVPUSH ×2 (21:24→21:50)
--- NOTE | 2022-03-07 21:39 | PM.IMHP ---
History of Present Illness Date of Service: 03/07/22 Chief Complaint: tachycardia,weakness 51-year-old male with past medical history of paroxysmal AFib, not on anticoagulation due to history of nasal bleed, opioid use disorder, diabetes, asthma, history of seizures, HTN, anxiety presents to the hospital with complaints of weakness and palpitations. Patient also reports that he has had high glucose readings for the past 2 days therefore she decided to come to the hospital. He reports that he used inter nasal heroin 2 days ago, denies using cocaine, reports no alcohol use. Patient reports tachycardia, with no dizziness, no shortness of breath, no chest pain, no fever or chills, no abdominal pain nausea or vomiting, no diarrhea constipation, no urinary symptoms and no lower extremity edema. On arrival to the ED patient found to have heart rate in the 140s to 170s. Patient started on Cardizem drip with minimal affect, discussed with Cardiology who recommended p.r.n. digoxin versus metoprolol, this was tried but patient did not respond continued to have tachycardia, Cardizem drip postop, patient was loaded with amiodarone and started on the amiodarone drip with control of heart rate. Labs are found to be significant for WBC count of 12.2, glucose of 381, BNP of 248, UDS positive for fentanyl, viral serology negative. Chest x-ray negative Review of Systems Review of Systems: Yes all other systems are reviewed and are negative [facility] Medical History Anxiety Arthritis Asthma Benign essential hypertension BPH (benign prostatic hyperplasia) Depression Diabetes Family history of thyroid disorder Insomnia Lumbar degenerative disc disease Morbid obesity with BMI of 40.0-44.9, adult Overactive bladder Paroxysmal atrial fibrillation with rapid ventricular response Polysubstance abuse Primary osteoarthritis of both knees Seizure Substance abuse Type 2 diabetes mellitus with hyperglycemia Family History Father ETOH abuse Mother Diabetes Arthritis of knee Hypertension Other Mental health problem Substance abuse Surgical History No history of previous surgery Social History Household Members: None Household Members Other:: room Housing: House Housing Other:: Room Do you presently have visiting nurse or other home services: No Alcohol intake: current Alcohol intake frequency: does not drink Patient Tobacco Use Status: Never used Tobacco Smoked in Last 30 Days: No e-Cigarette/Vaping Use: Never Used Second Hand Smoke Exposure: Yes Use of substances other than those prescribed or required for medical reasons: Yes Substance Use Type: Heroin Substance Use Frequency: Weekly Last Used Substance: Days (ago) Advance Directives: No Advance Directives Information Provided: No service: No Current occupational status: unemployed and disabled Cognitive needs: No Hearing needs: No Vision needs: No Meds Allergies Allergy/AdvReac Type Severity Reaction Status Date / Time Penicillins [PENICILLINS] Allergy Unknown RASH Verified 01/13/22 13:29 Active Medications: Current Medications Diltiazem HCl 125 mg/ Sodium (Chloride) 125 mls @ 0 mls/hr IVCONT .Q0M SCOTTY; Protocol Last Admin: 03/07/22 18:36 Dose: 10 mg/hr, 10 mls/hr Home Medications Medication Instructions Recorded Confirmed Last Taken Type diclofenac sodium 1 % topical gel 2 g topical QID PRN Pain 03/07/22 03/07/22 Unknown History (Voltaren Arthritis Pain) Physical Exam Vital Signs and Narrative: Vital Signs: Last Vital Signs Temp 98.6 F 03/07/22 20:46 Pulse 173 H 03/07/22 20:46 Resp 18 03/07/22 20:46 BP 137/113 H 03/07/22 20:46 Pulse Ox 98 03/07/22 20:46 O2 Del Method 03/07/22 20:46 BMI result Body Mass Index 41.8 Const: General: cooperative and no acute distress Orientation/consciousness: patient oriented x3 Eyes: General: appearance normal, both eyes and all related structures Pupils: Equal, round and reactive pupils present Resp: Effort & Inspection: normal respiratory effort Auscultation: clear to auscultation bilaterally Cardio: Other: Tachycardia, irregular rhythm GI: Palpation (GI): Soft to palpation Auscultation: normal bowel sounds Skin: General skin exam: no rashes or lesions noted Neuro: General: patient oriented x3 Cranial nerves: Yes Equal, round and reactive pupils present Cognition (Neuro): normal cognition Extrem: General: Yes normal to inspection and Yes no pedal edema Results Labs CBC and Chem 7: 03/07/22 16:25 03/07/22 16:25 Labs: Laboratory Results - last 24 hr 03/07/22 03/07/22 03/07/22 16:25 16:25 16:25 MCV 84.3 MCH 29.2 MCHC 34.6 RDW 11.9 Plt Count 359 MPV 10.1 Immature Gran % (Auto) 1.1 H Neut % (Auto) 80.5 H Lymph % (Auto) 13.3 L [place] % (Auto) 4.8 Eos % (Auto) 0.1 Baso % (Auto) 0.2 Lymph # (Auto) 1.6 [place] # (Auto) 0.6 Eos # (Auto) 0.0 Baso # (Auto) 0.0 Abs Immat Gran (auto) 0.14 H Absolute Neuts (auto) 9.8 H Absolute Nucleated RBC 0.000 Nucleated RBC % (auto) 0.0 PT 10.7 INR 0.9 APTT 27.8 Anion Gap 15 Estim Creat Clear Calc 97.5 Estimated GFR 59 Random Glucose 381 H* Calcium 9.6 Total Bilirubin 0.6 AST 24 ALT 33 Alkaline Phosphatase 110 Troponin I High Sens B-Natriuretic Peptide Total Protein 7.6 Albumin 3.8 Lipase 44 TSH 0.97 Urine Opiates Screen Urine Fentanyl Screen Ur Barbiturates Screen Ur Phencyclidine Scrn Ur Amphetamines Screen U Benzodiazepines Scrn Urine Cocaine Screen U Marijuana (THC) Screen Influenza Type A (PCR) Influenza Type B (PCR) RSV RNA Qual (PCR) SARS-CoV-2 RNA (RT-PCR) 03/07/22 03/07/22 03/07/22 16:25 16:25 16:25 MCV MCH MCHC RDW Plt Count MPV Immature Gran % (Auto) Neut % (Auto) Lymph % (Auto) [place] % (Auto) Eos % (Auto) Baso % (Auto) Lymph # (Auto) [place] # (Auto) Eos # (Auto) Baso # (Auto) Abs Immat Gran (auto) Absolute Neuts (auto) Absolute Nucleated RBC Nucleated RBC % (auto) PT INR APTT Anion Gap Estim Creat Clear Calc Estimated GFR Random Glucose Calcium Total Bilirubin AST ALT Alkaline Phosphatase Troponin I High Sens 14.4 B-Natriuretic Peptide 248 H Total Protein Albumin Lipase TSH Urine Opiates Screen Urine Fentanyl Screen Ur Barbiturates Screen Ur Phencyclidine Scrn Ur Amphetamines Screen U Benzodiazepines Scrn Urine Cocaine Screen U Marijuana (THC) Screen Influenza Type A (PCR) NEGATIVE Influenza Type B (PCR) NEGATIVE RSV RNA Qual (PCR) NEGATIVE SARS-CoV-2 RNA (RT-PCR) NEGATIVE 03/07/22 03/07/22 16:46 19:32 MCV MCH MCHC RDW Plt Count MPV Immature Gran % (Auto) Neut % (Auto) Lymph % (Auto) [place] % (Auto) Eos % (Auto) Baso % (Auto) Lymph # (Auto) [place] # (Auto) Eos # (Auto) Baso # (Auto) Abs Immat Gran (auto) Absolute Neuts (auto) Absolute Nucleated RBC Nucleated RBC % (auto) PT INR APTT Anion Gap Estim Creat Clear Calc Estimated GFR Random Glucose Calcium Total Bilirubin AST ALT Alkaline Phosphatase Troponin I High Sens 22.3 D B-Natriuretic Peptide Total Protein Albumin Lipase TSH Urine Opiates Screen Not Detected Urine Fentanyl Screen POSITIVE H Ur Barbiturates Screen Not Detected Ur Phencyclidine Scrn Not Detected Ur Amphetamines Screen Not Detected U Benzodiazepines Scrn Not Detected Urine Cocaine Screen Not Detected U Marijuana (THC) Screen Not Detected Influenza Type A (PCR) Influenza Type B (PCR) RSV RNA Qual (PCR) SARS-CoV-2 RNA (RT-PCR) Imaging Radiologist's Impressions: Impressions Chest X-Ray 03/07/22 16:13 IMPRESSION: Unremarkable examination. Assessment and Plan (1) Atrial flutter with rapid ventricular response: Status: Acute (2) Opiate use: Status: Acute (3) Medically noncompliant: Status: Acute (4) Hyperglycemia: Status: Acute Plan 51-year-old male with past medical history of paroxysmal AFib noncompliant with his medications including his anticoagulation, with previous similar episodes a presentation to the hospital presents the hospital with weakness, palpitation found to have tachycardia in the form of AFib with RVR # AFib with RVR - likely secondary to noncompliance, no evidence of acute infection at this time - resistant to Cardizem, as well as metoprolol IV pushes, started on amiodarone - resume Eliquis for anticoagulation - cardiology consulted # opioid use - patient with history of opioid use disorder - most recently abused heroin - monitor for withdrawals # hyperglycemia - secondary to poorly controlled diabetes - will resume his home insulin - add low-dose iron scale insulin - diabetic diet # hypertension - stable - continue home antihypertensive DVT prophylaxis: Eliquis Given patient's AFib with RVR, requiring amiodarone drip patient require minimum 2 nights inpatient hospital stay for further management and monitoring Time Spent With Patient Time: Total time managing care of this patient today ____ minutes. Quality Stroke Does the patient have a stroke diagnosis?: No VTE Prior VTE?: No VTE Risk Level:: Medical - low VTE Device Contraindication: Treatment Not Indicated VTE Drug Contraindication: N/A - Med Ordered
--- NOTE | 2022-03-07 21:45 | PC.NURSE ---
Pts hr 180's. Flutter noted on the monitor. Dr. Jones notified. New orders for digoxin and beta blockers.
--- NOTE | 2022-03-07 21:52 | PC.NURSE ---
Pt aox3. A-flutter on monitor with HR 176. Digoxin administered as ordered. Pt aware of plan of care.
[2022-03-07] MEDS: Metoprolol Tartrate 5 MG/5 ML VIAL IVPUSH (22:17)
[2022-03-07] MEDS: Amiodarone/Dextrose 150 MG/100 ML PLAST..BAG 600 MG IV (22:18)
--- NOTE | 2022-03-07 22:27 | PC.NURSE ---
Pt medicated as ordered with Metoprolol and Amiodarone. A-flutters on monitor with HR 130's. POC 516. aware.
[2022-03-07 22:32] LABS: Glucose, Whole Blood 516 mg/dL (60-115)
[2022-03-07] MEDS: Amiodarone HCL 900 MG in 0.9 % Sodium Chloride 500 ML 34.53 MG IVCONT (23:15)
[2022-03-07] MEDS: Insulin Regular, Human 100 UNIT/ML 3 ML VIAL 10 UNIT IVPUSH (23:26)
[2022-03-08] VITALS (7 sets, daily range): BP systolic 128–185; BP diastolic 65–108; PULSE 81–92; RESP 18–23; TEMP 36.3–37.3; O2SAT 96–100; BMI 39.3
[2022-03-08 00:27] LABS: Prothrombin Time 11.4 SEC (10.0-13.1)
[2022-03-08 00:35] LABS: Glucose, Whole Blood 409 mg/dL (60-115)
[2022-03-08] MEDS: Enoxaparin Sodium 40 MG/0.4 ML SYRINGE SUBCUT (00:44)
[2022-03-08] MEDS: Enoxaparin Sodium 100 MG/ML SYRINGE SUBCUT (00:44)
--- NOTE | 2022-03-08 00:49 | PC.NURSE ---
Pt aox3, resting/sleeping at the bedside. Amiodarone running at 34.53ml/hr on L AC. NSR on monitor with HR 90. Breaths are even and unlabored with RR 16. No apparent distress noted. Pt waiting for a bed and aware of plan of care.
[2022-03-08 07:08] LABS: Glucose, Whole Blood 316 mg/dL (60-115)
[2022-03-08] MEDS: Insulin Lispro 100 UNIT/ML 3 ML VIAL SUBCUT ×4 (07:37→20:50)
--- NOTE | 2022-03-08 07:43 | PC.NURSE ---
pt recieved in bed, alert and oriented. complains of numb left foot x 4 days. Foot is warm, with good distal pulses. Insulin administered for POC 316 to LUE. Pt remains in NSR 90s on amiodarone drip. Denies any SOB, GI complaints. States has alex infection to genital area. Skin otherwise intact. Plan is admission, will continue to monitor.
--- NOTE | 2022-03-08 08:19 | MHC.EDTECH ---
EKG was done
[2022-03-08] MEDS: Tamsulosin HCL 0.4 MG CAPSULE PO (08:57)
[2022-03-08] MEDS: Apixaban 5 MG TABLET PO ×2 (08:57→20:51)
[2022-03-08] MEDS: Furosemide 20 MG TABLET PO (08:57)
[2022-03-08] MEDS: Escitalopram Oxalate 20 MG TABLET PO (08:57)
[2022-03-08] MEDS: busPIRone HCl 10 MG TABLET 30 MG PO ×3 (08:57→20:51)
[2022-03-08] MEDS: Metoprolol Tartrate 100 MG TABLET PO (08:57)
[2022-03-08] MEDS: Insulin Glargine,Hum.rec.anlog 100 UNIT/ML 10 ML VIAL 10 UNIT SUBCUT (08:58)
--- NOTE | 2022-03-08 10:04 | P.CONCA_ITS ---
History of Present Illness History of Present Illness Date of Service: 03/08/22 Requesting physician: Pete Jones Consult reason: atrial fibrillation Chief complaint: A fib w RSV Narrative: I was consulted to see Herman in cardiology consultation today for atrial flutter with rapid ventricular response. Herman with prior history of diabetes uncontrolled, hypertension, drug abuse, noncompliant with medications in the past has has prior history of atrial fibrillation rapid ventricular response symptomatic. Was prescribed in the past Eliquis for oral anticoagulation to prevent stroke but stopped by himself about a year ago, he says because of nosebleeds. He came in yesterday with after having rapid heart rate not feeling well. In the ER was noted to have narrow complex tachycardia up to 180 beats per minute which initially appeared to be either SVT and was given adenosine. After slowing was noted to be in atrial flutter. Initially not responsive to multiple Cardizem boluses. Subsequently started on Cardizem drip and was given digoxin. He subsequently converted to sinus rhythm. Cardioversion was not attempted as he has not been taking his oral anticoagulation the past. He feels better now from cardiac perspective. Denies any chest pain, shortness of breath, palpitation at this point time. No lightheadedness. However he complains of fungal infection in his penis and having difficulty with urination. Denies any fever or chills. Cocaine was negative on the U tox. Positive for fentanyl. Review of Systems Constitutional: Constitutional: Reports no additional constitutional complaints Eyes: Eyes: Reports no additional eye complaints Cardiovascular: Cardiovascular: Denies chest pain, Denies lightheadedness, Denies Loss of Consciousness, Reports palpitations and Denies dyspnea Respiratory: Respiratory: Reports no additional respiratory complaints and Denies dyspnea Gastrointestinal: Gastrointestinal: Reports no additional gastrointestinal complaints Genitourinary: Genitourinary: Reports genital pain and Reports dysuria Musculoskeletal: Musculoskeletal: Reports no additional musculoskeletal complaints Integumentary/Breasts: Skin/Breast: Reports system reviewed and no additional complaints, except as docu Neurologic: Reports system reviewed and no additional complaints, except as documented Psychiatric: Psychiatric: Reports no additional psychiatric complaints Endocrine: Endocrine: Reports no additional endocrine complaints and Reports palpitations Hematologic/Lymphatic: Hematologic/Lymphatic: Reports no additional hematologic/lymphatic complaints Allergic/Immunologic: Allergic/Immunologic: Reports no additional allergic/immunologic complaints PMFSH Past Medical History Medical History Anxiety Arthritis Asthma Benign essential hypertension BPH (benign prostatic hyperplasia) Depression Diabetes Family history of thyroid disorder Insomnia Lumbar degenerative disc disease Morbid obesity with BMI of 40.0-44.9, adult Overactive bladder Paroxysmal atrial fibrillation with rapid ventricular response Polysubstance abuse Primary osteoarthritis of both knees Seizure Substance abuse Type 2 diabetes mellitus with hyperglycemia Family History Family History Father ETOH abuse Mother Diabetes Arthritis of knee Hypertension Other Mental health problem Substance abuse Surgical History Surgical History No history of previous surgery Social History Social History Household Members: None Household Members Other:: room Housing: House Housing Other:: Room Do you presently have visiting nurse or other home services: No Alcohol intake: current Alcohol intake frequency: does not drink Patient Tobacco Use Status: Never used Tobacco Smoked in Last 30 Days: No e-Cigarette/Vaping Use: Never Used Second Hand Smoke Exposure: Yes Use of substances other than those prescribed or required for medical reasons: Yes Substance Use Type: Heroin Substance Use Frequency: Weekly Last Used Substance: Days (ago) Advance Directives: No Advance Directives Information Provided: No service: No Current occupational status: unemployed and disabled Cognitive needs: No Hearing needs: No Vision needs: No Meds Allergies Allergy/AdvReac Type Severity Reaction Status Date / Time Penicillins [PENICILLINS] Allergy Unknown RASH Verified 01/13/22 13:29 Active Medications: Current Medications Acetaminophen (Acetaminophen 325 Mg Tablet) 650 mg PO Q6H PRN PRN Reason: Pain, Mild (Pain Scale 1-3) Albuterol Sulfate (Albuterol Sulfate 90 Mcg 8 Gm Inhaler) 2 puff INHALE Q8H PRN PRN Reason: shortness of breath or wheezing Apixaban (Apixaban 5 Mg Tablet) 5 mg PO BID [facility] Last Admin: 03/08/22 08:57 Dose: 5 mg Buspirone HCl (Buspirone Hcl 10 Mg Tablet) 30 mg PO TID [facility] Last Admin: 03/08/22 08:57 Dose: 30 mg Dextrose (Dextrose 50 % 25 Gm/50 Ml Syringe) 25 gm IVPUSH Q15M PRN; Protocol PRN Reason: per Hypoglycemia Standing Ord. Docusate Sodium (Docusate Sodium 100 Mg Capsule) 100 mg PO DAILY PRN PRN Reason: Constipation Enoxaparin Sodium (Enoxaparin Sodium 40 Mg/0.4 Ml Syringe) 40 mg SUBCUT ONCE [facility] Last Admin: 03/08/22 00:44 Dose: 40 mg Escitalopram Oxalate (Escitalopram Oxalate 20 Mg Tablet) 20 mg PO DAILY [facility] Last Admin: 03/08/22 08:57 Dose: 20 mg Furosemide (Furosemide 20 Mg Tablet) 20 mg PO DAILY [facility]; Protocol Last Admin: 03/08/22 08:57 Dose: 20 mg Glucose (Glucose Gel 15 Gm Gel..Gram.) 15 gm PO Q15M PRN; Protocol PRN Reason: per Hypoglycemia Standing Ord. Hydroxyzine HCl (Hydroxyzine Hcl 25 Mg Tablet) 25 mg PO TID PRN PRN Reason: for anxiety Amiodarone HCl 900 mg/ Sodium (Chloride) 518 mls @ 34.533 mls/hr IVCONT .Q15H1M [facility]; Protocol Last Admin: 03/07/22 23:15 Dose: 1 mg/min, 34.53 mls/hr Insulin Glargine (Insulin Glargine,Hum.Rec.Anlog 100 Unit/Ml 10 Ml Vial) 30 unit SUBCUT BEDTIME [facility] Insulin Glargine (Insulin Glargine,Hum.Rec.Anlog 100 Unit/Ml 10 Ml Vial) 10 unit SUBCUT DAILY [facility] Last Admin: 03/08/22 08:58 Dose: 10 unit Insulin Human Lispro (Insulin Lispro 100 Unit/Ml 3 Ml Vial) 0 unit SUBCUT QIDACHS [facility]; Protocol Last Admin: 03/08/22 07:37 Dose: 8 unit Lidocaine (Lidocaine 4 % Patch Adh..Patch) 2 patch TRANSDERMA DAILY PRN PRN Reason: Pain, Severe (Pain Scale 7-10) Loratadine (Loratadine 10 Mg Tablet) 10 mg PO DAILY PRN PRN Reason: allergy symptoms Metoprolol Tartrate (Metoprolol Tartrate 100 Mg Tablet) 100 mg PO BID [facility]; Protocol Last Admin: 03/08/22 08:57 Dose: 100 mg Ondansetron HCl (Ondansetron Hcl 4 Mg/2 Ml Vial) 4 mg IVPUSH Q8H PRN PRN Reason: Nausea and Vomiting Quetiapine Fumarate (Quetiapine Fumarate 50 Mg Tablet) 50 mg PO BEDTIME SCOTTY Sodium Chloride (0.9 % Sodium Chloride Flush 3 Ml Syringe) 3 ml IVFLUSH QSHIFT [facility] Last Admin: 03/08/22 00:47 Dose: Not Given Tamsulosin HCl (Tamsulosin Hcl 0.4 Mg Capsule) 0.4 mg PO DAILY [facility] Last Admin: 03/08/22 08:57 Dose: 0.4 mg Tramadol HCl (Tramadol Hcl 50 Mg Tablet) 50 mg PO TID PRN PRN Reason: Pain, Severe (Pain Scale 7-10) Zolpidem Tartrate (Zolpidem Tartrate 5 Mg Tablet) 10 mg PO BEDTIME PRN PRN Reason: insomnia Home Medications Medication Instructions Recorded Confirmed Last Taken Type diclofenac sodium 1 % topical gel 2 g topical QID PRN Pain 03/07/22 03/07/22 Unknown History (Voltaren Arthritis Pain) Physical Exam Vital Signs: Vital Signs: Last Vital Signs Temp 98.1 F 03/08/22 09:37 Pulse 83 03/08/22 09:37 Resp 20 03/08/22 09:37 BP 154/91 H 03/08/22 09:37 Pulse Ox 98 03/08/22 09:37 O2 Del Method 03/08/22 09:37 BMI result Body Mass Index 41.8 Const: General: cooperative, comfortable, no acute distress, alert and awake Nutritional Appearance: obese Orientation/consciousness: patient oriented x3 Limitations: no limitations HEENT: Head: Yes normocephalic and Yes atraumatic Neck: Neck: Yes trachea midline, Yes supple and Yes no JVD Chest: Chest palpation & inspection: normal inspection of the chest Resp: Effort & Inspection: normal respiratory effort Auscultation: clear to auscultation bilaterally Cardio: Jugular venous distension: no JVD Palpation: normal PMI Rate: regular rate Rhythm: regular rhythm Heart sounds: S1 normal heart sound present, S2 normal heart sound present, no click, no gallops, no murmurs and no rubs GI: Inspection: Yes obesity Auscultation: normal bowel sounds Skin: General skin exam: no rashes or lesions noted Neuro: General: patient oriented x3 and no focal motor deficits Extrem: General: Yes no clubbing, cyanosis or edema Psych: Appearance: grossly normal Objective Labs and Meds Result diagrams: 03/07/22 16:25 03/07/22 16:25 Lab results: Laboratory Results - last 24 hr 03/07/22 03/07/22 03/07/22 16:25 16:25 16:25 WBC 12.2 H RBC 5.75 Hgb 16.8 Hct 48.5 MCV 84.3 MCH 29.2 MCHC 34.6 RDW 11.9 Plt Count 359 MPV 10.1 Immature Gran % (Auto) 1.1 H Neut % (Auto) 80.5 H Lymph % (Auto) 13.3 L Mcmullen % (Auto) 4.8 Eos % (Auto) 0.1 Baso % (Auto) 0.2 Lymph # (Auto) 1.6 Mcmullen # (Auto) 0.6 Eos # (Auto) 0.0 Baso # (Auto) 0.0 Abs Immat Gran (auto) 0.14 H Absolute Neuts (auto) 9.8 H Absolute Nucleated RBC 0.000 Nucleated RBC % (auto) 0.0 PT 10.7 INR 0.9 APTT 27.8 Sodium 132 L Potassium 4.9 Chloride 98 Carbon Dioxide 24 Anion Gap 15 BUN 15 Creatinine 1.29 Estim Creat Clear Calc 97.5 Estimated GFR 59 POC Glucose Random Glucose 381 H* Calcium 9.6 Total Bilirubin 0.6 AST 24 ALT 33 Alkaline Phosphatase 110 Troponin I High Sens B-Natriuretic Peptide Total Protein 7.6 Albumin 3.8 Lipase 44 TSH 0.97 Urine Opiates Screen Urine Fentanyl Screen Ur Barbiturates Screen Ur Phencyclidine Scrn Ur Amphetamines Screen U Benzodiazepines Scrn Urine Cocaine Screen U Marijuana (THC) Screen Influenza Type A (PCR) Influenza Type B (PCR) RSV RNA Qual (PCR) SARS-CoV-2 RNA (RT-PCR) 03/07/22 03/07/22 03/07/22 16:25 16:25 16:25 WBC RBC Hgb Hct MCV MCH MCHC RDW Plt Count MPV Immature Gran % (Auto) Neut % (Auto) Lymph % (Auto) Mcmullen % (Auto) Eos % (Auto) Baso % (Auto) Lymph # (Auto) Mcmullen # (Auto) Eos # (Auto) Baso # (Auto) Abs Immat Gran (auto) Absolute Neuts (auto) Absolute Nucleated RBC Nucleated RBC % (auto) PT INR APTT Sodium Potassium Chloride Carbon Dioxide Anion Gap BUN Creatinine Estim Creat Clear Calc Estimated GFR POC Glucose Random Glucose Calcium Total Bilirubin AST ALT Alkaline Phosphatase Troponin I High Sens 14.4 B-Natriuretic Peptide 248 H Total Protein Albumin Lipase TSH Urine Opiates Screen Urine Fentanyl Screen Ur Barbiturates Screen Ur Phencyclidine Scrn Ur Amphetamines Screen U Benzodiazepines Scrn Urine Cocaine Screen U Marijuana (THC) Screen Influenza Type A (PCR) NEGATIVE Influenza Type B (PCR) NEGATIVE RSV RNA Qual (PCR) NEGATIVE SARS-CoV-2 RNA (RT-PCR) NEGATIVE 03/07/22 03/07/22 03/07/22 16:46 19:32 22:22 WBC RBC Hgb Hct MCV MCH MCHC RDW Plt Count MPV Immature Gran % (Auto) Neut % (Auto) Lymph % (Auto) Mcmullen % (Auto) Eos % (Auto) Baso % (Auto) Lymph # (Auto) Mcmullen # (Auto) Eos # (Auto) Baso # (Auto) Abs Immat Gran (auto) Absolute Neuts (auto) Absolute Nucleated RBC Nucleated RBC % (auto) PT INR APTT Sodium Potassium Chloride Carbon Dioxide Anion Gap BUN Creatinine Estim Creat Clear Calc Estimated GFR POC Glucose 516 H* Random Glucose Calcium Total Bilirubin AST ALT Alkaline Phosphatase Troponin I High Sens 22.3 D B-Natriuretic Peptide Total Protein Albumin Lipase TSH Urine Opiates Screen Not Detected Urine Fentanyl Screen POSITIVE H Ur Barbiturates Screen Not Detected Ur Phencyclidine Scrn Not Detected Ur Amphetamines Screen Not Detected U Benzodiazepines Scrn Not Detected Urine Cocaine Screen Not Detected U Marijuana (THC) Screen Not Detected Influenza Type A (PCR) Influenza Type B (PCR) RSV RNA Qual (PCR) SARS-CoV-2 RNA (RT-PCR) 03/07/22 03/08/22 03/08/22 23:48 00:30 07:02 WBC RBC Hgb Hct MCV MCH MCHC RDW Plt Count MPV Immature Gran % (Auto) Neut % (Auto) Lymph % (Auto) Mcmullen % (Auto) Eos % (Auto) Baso % (Auto) Lymph # (Auto) Mcmullen # (Auto) Eos # (Auto) Baso # (Auto) Abs Immat Gran (auto) Absolute Neuts (auto) Absolute Nucleated RBC Nucleated RBC % (auto) PT 11.4 INR 1.0 APTT Sodium Potassium Chloride Carbon Dioxide Anion Gap BUN Creatinine Estim Creat Clear Calc Estimated GFR POC Glucose 409 H* 316 H Random Glucose Calcium Total Bilirubin AST ALT Alkaline Phosphatase Troponin I High Sens B-Natriuretic Peptide Total Protein Albumin Lipase TSH Urine Opiates Screen Urine Fentanyl Screen Ur Barbiturates Screen Ur Phencyclidine Scrn Ur Amphetamines Screen U Benzodiazepines Scrn Urine Cocaine Screen U Marijuana (THC) Screen Influenza Type A (PCR) Influenza Type B (PCR) RSV RNA Qual (PCR) SARS-CoV-2 RNA (RT-PCR) EKG done yesterday showed a complex tachycardia atrial flutter with 2 is to 1 conduction versus SVT with ST T wave changes related to rate Imaging Radiologist's impression: Impressions Chest X-Ray 03/07/22 16:13 IMPRESSION: Unremarkable examination. Assessment and Plan (1) Atrial flutter with rapid ventricular response: Status: Acute Patient present with symptomatic atrial flutter with rapid ventricular response leading to hospitalization converted with rate control to sinus rhythm. He has a similar history in the past. Noncompliant to medications. I had a very long discussion with him what compliance and need for taking his medication to prevent worse clinical outcome such as stroke. CHADSVASc score of at least 2. Will start him on Eliquis 5 mg b.i.d. and importance of compliance with oral anticoagulation was discussed. Avoidance of all stimulants as well as drug abuse was discussed with him. He understands. Also needs better blood pressure control. Start him on Toprol XL 15 Cardizem CD 1 80 mg daily. This is both for treatment of atrial fibrillation as well as control of his blood pressure. If blood pressure remains elevated consider adding angiotensin receptor blockers to his regimen. Better control of diabetes was discussed also consider workup for sleep apnea as outpatient. From cardiac perspective patient can be discharged home. Will follow-up as outpatient if he complies. Thank you for allowing us to partake in his care Time Spent With Patient Time: Total time managing care of this patient today ____ minutes. Procedures Date of Service Date of Service: 03/08/22
--- NOTE | 2022-03-08 10:37 | P.PNIM_ITS ---
Subjective Subjective Date of Service: 03/08/22 Interval History: afib, possible balanitis Review of Systems Some whitish coating material in the opening or face of penis and some whitish fixation. Has some pain and swelling around penis(glans area) Denies any chest pain or fever or chills or cough or phlegm Physical Exam Vital Signs: Vital Signs: Last Vital Signs Temp 98.1 F 03/08/22 09:37 Pulse 83 03/08/22 09:37 Resp 20 03/08/22 09:37 BP 154/91 H 03/08/22 09:37 Pulse Ox 98 03/08/22 09:37 O2 Del Method 03/08/22 09:37 BMI result Body Mass Index 41.8 Appearance: Alert.? Oriented X3.? not in distress.? cvs: rrr, [id number] , no murmur res: clear to auscultation ,no rhonchii or wheezing abd: no rebound or guarding ,nt, bs present. ext pulses present , no cyanosis Gu-whitish coating in the front pain is or if face, also has home itis situation and some swelling of the glands area. neuro: axo3 , nonfocal. Objective Data Active Medications Acetaminophen (Acetaminophen 325 Mg Tablet) 650 mg PO Q6H PRN PRN Reason: Pain, Mild (Pain Scale 1-3) Albuterol Sulfate (Albuterol Sulfate 90 Mcg 8 Gm Inhaler) 2 puff INHALE Q8H PRN PRN Reason: shortness of breath or wheezing Apixaban (Apixaban 5 Mg Tablet) 5 mg PO BID [facility] Last Admin: 03/08/22 08:57 Dose: 5 mg Documented By: ARNOLD Buspirone HCl (Buspirone Hcl 10 Mg Tablet) 30 mg PO TID [facility] Last Admin: 03/08/22 08:57 Dose: 30 mg Documented By: ARNOLD Dextrose (Dextrose 50 % 25 Gm/50 Ml Syringe) 25 gm IVPUSH Q15M PRN; Protocol PRN Reason: per Hypoglycemia Standing Ord. Docusate Sodium (Docusate Sodium 100 Mg Capsule) 100 mg PO DAILY PRN PRN Reason: Constipation Enoxaparin Sodium (Enoxaparin Sodium 40 Mg/0.4 Ml Syringe) 40 mg SUBCUT ONCE [facility] Last Admin: 03/08/22 00:44 Dose: 40 mg Documented By: DREAD Escitalopram Oxalate (Escitalopram Oxalate 20 Mg Tablet) 20 mg PO DAILY [facility] Last Admin: 03/08/22 08:57 Dose: 20 mg Documented By: ARNOLD Furosemide (Furosemide 20 Mg Tablet) 20 mg PO DAILY [facility]; Protocol Last Admin: 03/08/22 08:57 Dose: 20 mg Documented By: ARNOLD Glucose (Glucose Gel 15 Gm Gel..Gram.) 15 gm PO Q15M PRN; Protocol PRN Reason: per Hypoglycemia Standing Ord. Hydroxyzine HCl (Hydroxyzine Hcl 25 Mg Tablet) 25 mg PO TID PRN PRN Reason: for anxiety Amiodarone HCl 900 mg/ Sodium (Chloride) 518 mls @ 34.533 mls/hr IVCONT .Q15H1M [facility]; Protocol Last Admin: 03/07/22 23:15 Dose: 1 mg/min, 34.53 mls/hr Documented By: DREAD Insulin Glargine (Insulin Glargine,Hum.Rec.Anlog 100 Unit/Ml 10 Ml Vial) 30 unit SUBCUT BEDTIME [facility] Insulin Glargine (Insulin Glargine,Hum.Rec.Anlog 100 Unit/Ml 10 Ml Vial) 10 unit SUBCUT DAILY [facility] Last Admin: 03/08/22 08:58 Dose: 10 unit Documented By: ARNOLD Insulin Human Lispro (Insulin Lispro 100 Unit/Ml 3 Ml Vial) 0 unit SUBCUT Q IDACHS [facility]; Protocol Last Admin: 03/08/22 07:37 Dose: 8 unit Documented By: ARNOLD Comments: poc 316 Lidocaine (Lidocaine 4 % Patch Adh..Patch) 2 patch TRANSDERMA DAILY PRN PRN Reason: Pain, Severe (Pain Scale 7-10) Loratadine (Loratadine 10 Mg Tablet) 10 mg PO DAILY PRN PRN Reason: allergy symptoms Metoprolol Tartrate (Metoprolol Tartrate 100 Mg Tablet) 100 mg PO BID [facility]; Protocol Last Admin: 03/08/22 08:57 Dose: 100 mg Documented By: ARNOLD Ondansetron HCl (Ondansetron Hcl 4 Mg/2 Ml Vial) 4 mg IVPUSH Q8H PRN PRN Reason: Nausea and Vomiting Quetiapine Fumarate (Quetiapine Fumarate 50 Mg Tablet) 50 mg PO BEDTIME [facility] Sodium Chloride (0.9 % Sodium Chloride Flush 3 Ml Syringe) 3 ml IVFLUSH QSHIFT [facility] Last Admin: 03/08/22 00:47 Dose: Not Given Documented By: DREAD Non-Admin Reason: IV Running Tamsulosin HCl (Tamsulosin Hcl 0.4 Mg Capsule) 0.4 mg PO DAILY [facility] Last Admin: 03/08/22 08:57 Dose: 0.4 mg Documented By: ARNOLD Tramadol HCl (Tramadol Hcl 50 Mg Tablet) 50 mg PO TID PRN PRN Reason: Pain, Severe (Pain Scale 7-10) Zolpidem Tartrate (Zolpidem Tartrate 5 Mg Tablet) 10 mg PO BEDTIME PRN PRN Reason: insomnia Labs CBC & Chem 7: 03/08/22 12:33 03/08/22 12:33 Labs: Laboratory Results - last 24 hr 03/07/22 03/07/22 03/07/22 16:25 16:25 16:25 MCV 84.3 MCH 29.2 MCHC 34.6 RDW 11.9 Plt Count 359 MPV 10.1 Immature Gran % (Auto) 1.1 H Neut % (Auto) 80.5 H Lymph % (Auto) 13.[address] [place] % (Auto) 4.8 Eos % (Auto) 0.1 Baso % (Auto) 0.2 Lymph # (Auto) 1.6 [place] # (Auto) 0.6 Eos # (Auto) 0.0 Baso # (Auto) 0.0 Abs Immat Gran (auto) 0.14 H Absolute Neuts (auto) 9.8 H Absolute Nucleated RBC 0.000 Nucleated RBC % (auto) 0.0 PT 10.7 INR 0.9 APTT 27.8 Anion Gap 15 Estim Creat Clear Calc 97.5 Estimated GFR 59 POC Glucose Random Glucose 381 H* Calcium 9.6 Total Bilirubin 0.6 AST 24 ALT 33 Alkaline Phosphatase 110 Troponin I High Sens B-Natriuretic Peptide Total Protein 7.6 Albumin 3.8 Lipase 44 TSH 0.97 Urine Opiates Screen Urine Fentanyl Screen Ur Barbiturates Screen Ur Phencyclidine Scrn Ur Amphetamines Screen U Benzodiazepines Scrn Urine Cocaine Screen U Marijuana (THC) Screen Influenza Type A (PCR) Influenza Type B (PCR) RSV RNA Qual (PCR) SARS-CoV-2 RNA (RT-PCR) 03/07/22 03/07/22 03/07/22 16:25 16:25 16:25 MCV MCH MCHC RDW Plt Count MPV Immature Gran % (Auto) Neut % (Auto) Lymph % (Auto) [place] % (Auto) Eos % (Auto) Baso % (Auto) Lymph # (Auto) [place] # (Auto) Eos # (Auto) Baso # (Auto) Abs Immat Gran (auto) Absolute Neuts (auto) Absolute Nucleated RBC Nucleated RBC % (auto) PT INR APTT Anion Gap Estim Creat Clear Calc Estimated GFR POC Glucose Random Glucose Calcium Total Bilirubin AST ALT Alkaline Phosphatase Troponin I High Sens 14.4 B-Natriuretic Peptide 248 H Total Protein Albumin Lipase TSH Urine Opiates Screen Urine Fentanyl Screen Ur Barbiturates Screen Ur Phencyclidine Scrn Ur Amphetamines Screen U Benzodiazepines Scrn Urine Cocaine Screen U Marijuana (THC) Screen Influenza Type A (PCR) NEGATIVE Influenza Type B (PCR) NEGATIVE RSV RNA Qual (PCR) NEGATIVE SARS-CoV-2 RNA (RT-PCR) NEGATIVE 03/07/22 03/07/22 03/07/22 16:46 19:32 22:22 MCV MCH MCHC RDW Plt Count MPV Immature Gran % (Auto) Neut % (Auto) Lymph % (Auto) [place] % (Auto) Eos % (Auto) Baso % (Auto) Lymph # (Auto) [place] # (Auto) Eos # (Auto) Baso # (Auto) Abs Immat Gran (auto) Absolute Neuts (auto) Absolute Nucleated RBC Nucleated RBC % (auto) PT INR APTT Anion Gap Estim Creat Clear Calc Estimated GFR POC Glucose 516 H* Random Glucose Calcium Total Bilirubin AST ALT Alkaline Phosphatase Troponin I High Sens 22.3 D B-Natriuretic Peptide Total Protein Albumin Lipase TSH Urine Opiates Screen Not Detected Urine Fentanyl Screen POSITIVE H Ur Barbiturates Screen Not Detected Ur Phencyclidine Scrn Not Detected Ur Amphetamines Screen Not Detected U Benzodiazepines Scrn Not Detected Urine Cocaine Screen Not Detected U Marijuana (THC) Screen Not Detected Influenza Type A (PCR) Influenza Type B (PCR) RSV RNA Qual (PCR) SARS-CoV-2 RNA (RT-PCR) 03/07/22 03/08/22 03/08/22 23:48 00:30 07:02 MCV MCH MCHC RDW Plt Count MPV Immature Gran % (Auto) Neut % (Auto) Lymph % (Auto) [place] % (Auto) Eos % (Auto) Baso % (Auto) Lymph # (Auto) [place] # (Auto) Eos # (Auto) Baso # (Auto) Abs Immat Gran (auto) Absolute Neuts (auto) Absolute Nucleated RBC Nucleated RBC % (auto) PT 11.4 INR 1.0 APTT Anion Gap Estim Creat Clear Calc Estimated GFR POC Glucose 409 H* 316 H Random Glucose Calcium Total Bilirubin AST ALT Alkaline Phosphatase Troponin I High Sens B-Natriuretic Peptide Total Protein Albumin Lipase TSH Urine Opiates Screen Urine Fentanyl Screen Ur Barbiturates Screen Ur Phencyclidine Scrn Ur Amphetamines Screen U Benzodiazepines Scrn Urine Cocaine Screen U Marijuana (THC) Screen Influenza Type A (PCR) Influenza Type B (PCR) RSV RNA Qual (PCR) SARS-CoV-2 RNA (RT-PCR) Assessment and Plan (1) Atrial flutter with rapid ventricular response: Status: Acute (2) Hyperglycemia: Status: Acute (3) Balanitis: Status: Acute (4) Pseudohyponatremia: Status: Acute (5) Morbid obesity: Status: Acute Plan 51-year-old male with past medical history of paroxysmal AFib noncompliant with his medications including his anticoagulation, with previous similar episodes a presentation to the hospital presents the hospital with weakness, palpitation found to have tachycardia in the form of AFib with RVR # AFib with RVR - likely secondary to noncompliance, no evidence of acute infection at this time - resistant to Cardizem, as well as metoprolol IV pushes, iv amiodarone - resume Eliquis for anticoagulation-switched to po cardizem,metorprolol - cardiology consulted-changes made as above. # opioid use - patient with history of opioid use disorder - most recently abused heroin - monitor for withdrawals #dm with hyperglycemia - secondary to poorly controlled diabetes - will resume his home insulin-adjusted lantus to 40 u qhs and adjusted sliding scale diabetic diet Hba1c levels in am # hypertension - stable - continue home antihypertensive Balanitis: ?fungal infection added gonorrhae and chlyamdia testing and culture,ua added fluconazole also urology eval Morbid obesity: Encouraged for losing weight DVT prophylaxis:? Eliquis Given patient's AFib with RVR-with med adjustment monitering ,Balanitis-possible fungal infection on iv fluconazole -further testing and urology eval pendin Time Spent With Patient Time: Total time managing care of this patient today ____ minutes. Quality Stroke Does the patient have a stroke diagnosis?: No VTE Prior VTE?: No VTE Risk Level:: Medical - low VTE Device Contraindication: Treatment Not Indicated VTE Drug Contraindication: N/A - Med Ordered
[2022-03-08] MEDS: dilTIAZem HCL CD 180 MG CAP.ER.24H PO (11:03)
[2022-03-08] MEDS: Metoprolol Succinate ER 50 MG TAB.ER.24H PO (11:04)
[2022-03-08 12:55] LABS: Hematocrit 42.1 % (42.0-52.0); Hemoglobin 14.1 g/dl (14.0-18.0); Mean Corpuscular HGB Conc 33.5 g/dl (31.0-36.0); Mean Corpuscular Hemoglobin 28.7 pg (27.0-33.0); Mean Corpuscular Volume 85.6 fL (80.0-98.0); Mean Platelet Volume 10.2 fL (9.4-12.4); Platelet Count 335 X10*3/uL (160-400); Red Blood Count 4.92 X10*6/uL (4.60-5.80); Red Cell Distribution Width 11.9 % (11.0-16.0); White Blood Count 12.6 X10*3/uL (4.8-10.8)
[2022-03-08 13:01] LABS: INTERNATIONAL NORM RATIO 1.1 (0.9-1.1); Prothrombin Time 12.3 SEC (10.0-13.1)
--- NOTE | 2022-03-08 13:09 | MHC.CM.PN ---
Attempted to meet with patient in regards to discharge planning. Patient currently sleeping. No family present. Will attempt to meet again. Continue to monitor for d/c needs.
[2022-03-08 13:18] LABS: Glucose, Whole Blood 404 mg/dL (60-115)
[2022-03-08 13:38] LABS: Alanine Aminotransferase 29 U/L (0-40); Albumin Level 3.4 g/dL (3.5-5.0); Alkaline Phosphatase 88 U/L (39-117); Anion Gap 11 (12-20); Aspartate Amino Transferase 24 U/L (5-37); Bilirubin Total 0.4 mg/dL (0.0-1.0); Blood Urea Nitrogen 13 mg/dL (9-16); Calcium 8.9 mg/dL (8.4-10.2); Carbon Dioxide 22 mmol/L (22-29); Chloride 100 mmol/L (96-108); Creatinine Clr Calc Pharmacy 109.4; Estimated Glomerular Filt Rate > 60; Glucose Random 463 mg/dL (60-115); Potassium 4.4 mmol/L (3.3-5.1); Sodium 129 mmol/L (135-145); Total Protein 5.8 g/dL (6.5-8.0)
[2022-03-08] MEDS: Fluconazole in NaCl,Iso-Osm 100 MG in Container,Empty 0 ML 50 MG IV (14:59)
--- NOTE | 2022-03-08 16:59 | PC.NURSE ---
RN-RN report given to [facility]
[2022-03-08] MEDS: 0.9 % Sodium Chloride Flush 3 ML SYRINGE IVFLUSH (17:16)
[2022-03-08 17:45] LABS: Glucose, Whole Blood 316 mg/dL (60-115)
[2022-03-08 19:32] LABS: Appearance Urine Clear; Color Urine Yellow; Glucose Urine UA >=1000 mg/dL (Negative); Leukocyte Esterase Urine Small (1+) (Negative); Nitrite Urine Negative (Negative); PH 5.5 (5.0-9.0); Specific Gravity - Urine >= 1.030 (1.005-1.025); UMIC TRIGGER UA YES; Urine Blood Negative (Negative); Urine Ketones Negative (Negative); Urine Protein Negative (Neg-Trace)
[2022-03-08 19:37] LABS: Bacteria Urine None Seen (None Seen); Hyaline Casts Urine 0-2 /LPF (0-2); RBC Urine 0-2 /HPF (0-2); Squamous Epithelial Cell Urine 0-2 /HPF (0-2); WBC Urine 21-50 /HPF (0-5)
[2022-03-08 20:17] LABS: Glucose, Whole Blood 524 mg/dL (60-115)
[2022-03-08] MEDS: Insulin Lispro 100 UNIT/ML 3 ML VIAL 15 UNIT SUBCUT (20:48)
[2022-03-08] MEDS: QUEtiapine Fumarate 50 MG TABLET PO (20:51)
[2022-03-08] MEDS: Insulin Glargine,Hum.rec.anlog 100 UNIT/ML 10 ML VIAL 40 UNIT SUBCUT (20:51)
[2022-03-09] VITALS (7 sets, daily range): BP systolic 135–189; BP diastolic 60–84; PULSE 81–103; RESP 18–20; TEMP 36.4–37.6; O2SAT 93–98
[2022-03-09] MEDS: 0.9 % Sodium Chloride Flush 3 ML SYRINGE IVFLUSH ×4 (00:06→19:54)
[2022-03-09 02:01] LABS: CT PCR NOT DETECTED (Not Detect.); NG PCR NOT DETECTED (Not Detect.)
[2022-03-09 07:35] LABS: Glucose, Whole Blood 272 mg/dL (60-115)
[2022-03-09] MEDS: Insulin Glargine,Hum.rec.anlog 100 UNIT/ML 10 ML VIAL 10 UNIT SUBCUT (08:35)
[2022-03-09] MEDS: Apixaban 5 MG TABLET PO ×2 (08:36→19:50)
[2022-03-09] MEDS: Furosemide 20 MG TABLET PO (08:36)
[2022-03-09] MEDS: dilTIAZem HCL CD 180 MG CAP.ER.24H PO (08:36)
[2022-03-09] MEDS: busPIRone HCl 10 MG TABLET 30 MG PO ×3 (08:36→19:49)
[2022-03-09] MEDS: Escitalopram Oxalate 20 MG TABLET PO (08:36)
[2022-03-09] MEDS: Insulin Lispro 100 UNIT/ML 3 ML VIAL SUBCUT ×4 (08:36→19:51)
[2022-03-09] MEDS: Metoprolol Succinate ER 100 MG TAB.ER.24H PO (08:37)
[2022-03-09] MEDS: traMADoL HCL 50 MG TABLET PO (08:42)
[2022-03-09] MEDS: Tamsulosin HCL 0.4 MG CAPSULE PO (08:53)
--- NOTE | 2022-03-09 08:59 | MHC.CM.PN ---
[facility] DELIVERED PT LIVES IN A ROOMING HOUSE. NO SERVICES OR DME PRIOR TO ADMISSION. INDEPENDENT AT BASELINE. NO HCP BUT WILL CONSIDER DOING ONE WHILE HERE. NO COVID VAX. PCP DR. PIKE DP: HOME, NO SERVICES ANTICIPATED. PT REQUESTS [facility] [place] [facility]UTTLE FOR TRANSPORT HOME. CM WILL CONTINUE TO FOLLOW FOR CHANGE IN PLAN.
[2022-03-09 09:09] LABS: Estimated Average Glucose 355 mg/dL
[2022-03-09 11:29] LABS: Glucose, Whole Blood 383 mg/dL (60-115)
--- NOTE | 2022-03-09 13:03 | P.CNUR_ITS ---
History of Present Illness Consult details Consult date: 03/09/22 Narrative: CC: Balanitis with phimosis 51-year-old male Poorly controlled diabetic Initial presentation to hospital with palpitations and weakness HbA1c 14, point of care sugars in 300-500 range Phimosis Inability to retract foreskin Question of balanitis Has been placed on topical antifungal Requires circumcision Cannot be performed until HbA1c under 8 Patient informed that needs to controlled diabetes before procedure can be performed on foreskin Review of Systems Constitutional: Constitutional: Reports as per HPI and Reports no additional constitutional complaints Cardiovascular: Cardiovascular: Reports as per HPI and Reports no additional cardiovascular complaints Respiratory: Respiratory: Reports as per HPI and Reports no additional respiratory complaints Gastrointestinal: Gastrointestinal: Reports as per HPI and Reports no arnaud tional gastrointestinal complaints Genitourinary: Genitourinary: Reports as per HPI Musculoskeletal: Musculoskeletal: Reports no additional musculoskeletal complaints and Reports as per HPI Neurologic: Reports system reviewed and no additional complaints, except as documented and Reports as per HPI PMFSH Past Medical History Medical History Anxiety Arthritis Asthma Benign essential hypertension BPH (benign prostatic hyperplasia) Depression Diabetes Family history of thyroid disorder Insomnia Lumbar degenerative disc disease Morbid obesity with BMI of 40.0-44.9, adult Overactive bladder Paroxysmal atrial fibrillation with rapid ventricular response Polysubstance abuse Primary osteoarthritis of both knees Seizure Substance abuse Type 2 diabetes mellitus with hyperglycemia Family History Family History Father ETOH abuse Mother Diabetes Arthritis of knee Hypertension Other Mental health problem Substance abuse Surgical History Surgical History No history of previous surgery Social History Social History Household Members: Family Household Members Other:: room Housing: House Housing Other:: Room Do you presently have visiting nurse or other home services: No Alcohol intake: current Alcohol intake frequency: does not drink Patient Tobacco Use Status: Never used Tobacco e-Cigarette/Vaping Use: Never Used Second Hand Smoke Exposure: No Substance Use Type: Heroin service: No Current occupational status: unemployed and disabled Cognitive needs: No Hearing needs: No Vision needs: No Meds Allergies Allergy/AdvReac Type Severity Reaction Status Date / Time Penicillins [PENICILLINS] Allergy Unknown RASH Verified 01/13/22 13:29 Active Medications: Current Medications Acetaminophen (Acetaminophen 325 Mg Tablet) 650 mg PO Q6H PRN PRN Reason: Pain, Mild (Pain Scale 1-3) Albuterol Sulfate (Albuterol Sulfate 90 Mcg 8 Gm Inhaler) 2 puff INHALE Q8H PRN PRN Reason: shortness of breath or wheezing Apixaban (Apixaban 5 Mg Tablet) 5 mg PO BID [facility] Last Admin: 03/09/22 08:36 Dose: 5 mg Buspirone HCl (Buspirone Hcl 10 Mg Tablet) 30 mg PO TID [facility] Last Admin: 03/09/22 08:36 Dose: 30 mg Dextrose (Dextrose 50 % 25 Gm/50 Ml Syringe) 25 gm IVPUSH Q15M PRN; Protocol PRN Reason: per Hypoglycemia Standing Ord. Diltiazem HCl (Diltiazem Hcl Cd 180 Mg Cap.Er.24h) 180 mg PO DAILY [facility]; Protocol Last Admin: 03/09/22 08:36 Dose: 180 mg Docusate Sodium (Docusate Sodium 100 Mg Capsule) 100 mg PO DAILY PRN PRN Reason: Constipation Enoxaparin Sodium (Enoxaparin Sodium 40 Mg/0.4 Ml Syringe) 40 mg SUBCUT ONCE [facility] Last Admin: 03/08/22 00:44 Dose: 40 mg Escitalopram Oxalate (Escitalopram Oxalate 20 Mg Tablet) 20 mg PO DAILY [facility] Last Admin: 03/09/22 08:36 Dose: 20 mg Furosemide (Furosemide 20 Mg Tablet) 20 mg PO DAILY [facility]; Protocol Last Admin: 03/09/22 08:36 Dose: 20 mg Glucose (Glucose Gel 15 Gm Gel..Gram.) 15 gm PO Q15M PRN; Protocol PRN Reason: per Hypoglycemia Standing Ord. Hydroxyzine HCl (Hydroxyzine Hcl 25 Mg Tablet) 25 mg PO TID PRN PRN Reason: for anxiety Fluconazole 100 mg/ IV (Miscellaneous Supplies) 50 mls @ 50 mls/hr IV Q24H [facility] Last Infusion: 03/08/22 17:11 Dose: Infused Insulin Glargine (Insulin Glargine,Hum.Rec.Anlog 100 Unit/Ml 10 Ml Vial) 10 unit SUBCUT DAILY [facility] Last Admin: 03/09/22 08:35 Dose: 10 unit Insulin Glargine (Insulin Glargine,Hum.Rec.Anlog 100 Unit/Ml 10 Ml Vial) 40 unit SUBCUT BEDTIME [facility] Last Admin: 03/08/22 20:51 Dose: 40 unit Insulin Human Lispro (Insulin Lispro 100 Unit/Ml 3 Ml Vial) 0 unit SUBCUT QIDACHS [facility]; Protocol Last Admin: 03/09/22 12:04 Dose: 14 unit Lidocaine (Lidocaine 4 % Patch Adh..Patch) 2 patch TRANSDERMA DAILY PRN PRN Reason: Pain, Severe (Pain Scale 7-10) Loratadine (Loratadine 10 Mg Tablet) 10 mg PO DAILY PRN PRN Reason: allergy symptoms Metoprolol Succinate (Metoprolol Succinate Er 100 Mg Tab.Er.24h) 100 mg PO DAILY [facility]; Protocol Last Admin: 03/09/22 08:37 Dose: 100 mg Ondansetron HCl (Ondansetron Hcl 4 Mg/2 Ml Vial) 4 mg IVPUSH Q8H PRN PRN Reason: Nausea and Vomiting Quetiapine Fumarate (Quetiapine Fumarate 50 Mg Tablet) 50 mg PO BEDTIME [facility] Last Admin: 03/08/22 20:51 Dose: 50 mg Sodium Chloride (0.9 % Sodium Chloride Flush 3 Ml Syringe) 3 ml IVFLUSH QSHIFT [facility] Last Admin: 03/09/22 08:37 Dose: 3 ml Tamsulosin HCl (Tamsulosin Hcl 0.4 Mg Capsule) 0.4 mg PO DAILY [facility] Last Admin: 03/09/22 08:53 Dose: 0.4 mg Tramadol HCl (Tramadol Hcl 50 Mg Tablet) 50 mg PO TID PRN PRN Reason: Pain, Severe (Pain Scale 7-10) Last Admin: 03/09/22 08:42 Dose: 50 mg Zolpidem Tartrate (Zolpidem Tartrate 5 Mg Tablet) 10 mg PO BEDTIME PRN PRN Reason: insomnia Home Medications Medication Instructions Recorded Confirmed Last Taken Type diclofenac sodium 1 % topical gel 2 g topical QID PRN Pain 03/07/22 03/07/22 Unknown History (Voltaren Arthritis Pain) Physical Exam Vital Signs: Vital Signs: Last Vital Signs Temp 97.9 F 03/09/22 11:44 Pulse 85 03/09/22 11:44 Resp 19 03/09/22 11:44 BP 148/74 H 03/09/22 11:44 Pulse Ox 98 03/09/22 11:44 O2 Del Method 03/09/22 11:44 BMI result Body Mass Index 39.3 Const: General: cooperative, healthy appearing, comfortable and no acute distress Orientation/consciousness: patient oriented x3 HEENT: Face and sinus: Yes normal facial exam Mouth: moist mucous membranes Neck: Neck: Yes normal visual inspection, Yes full ROM and Yes trachea midline Chest: Chest palpation & inspection: normal inspection of the chest Resp: Effort & Inspection: normal respiratory effort, able to speak in complete sentences and no respiratory distress GI: Inspection: Yes normal to inspection Back/Spine/Pelvis: Cervical Spine: normal cervical lordosis Thoracic/Lumbar Spine: thoracic and lumbar spine normal to inspection Skin: General skin exam: no rashes or lesions noted Neuro: General: patient oriented x3, tone normal and moves all extremities Extrem: General: Yes normal to inspection and Yes capillary refill normal Results Labs Result diagrams: 03/08/22 12:33 03/08/22 12:33 Labs: Abnormal lab results 03/08/22 03/08/22 03/08/22 Range/Units 12:33 13:14 17:41 Sodium 129 L (135-145) mmol/L Anion Gap 11 L (12-20) POC Glucose 404 H* 316 H (60-115) mg/dL Random Glucose 463 H* (60-115) mg/dL Total Protein 5.8 L (6.5-8.0) g/dL Albumin 3.4 L (3.5-5.0) g/dL Ur Specific [place] (1.005-1.025) Urine Glucose (UA) (Negative) mg/dL Ur Leukocyte Esterase (Negative) Urine WBC (0-5) /HPF 03/08/22 03/08/22 03/09/22 Range/Units 18:44 20:09 07:15 Sodium (135-145) mmol/L Anion Gap (12-20) POC Glucose 524 H* 272 H (60-115) mg/dL Random Glucose (60-115) mg/dL Total Protein (6.5-8.0) g/dL Albumin (3.5-5.0) g/dL Ur Specific [place] >= 1.030 H (1.005-1.025) Urine Glucose (UA) >=1000 H (Negative) mg/dL Ur Leukocyte Esterase Small (1+) H (Negative) Urine WBC 21-50 H (0-5) /HPF 03/09/22 Range/Units 10:58 Sodium (135-145) mmol/L Anion Gap (12-20) POC Glucose 383 H* (60-115) mg/dL Random Glucose (60-115) mg/dL Total Protein (6.5-8.0) g/dL Albumin (3.5-5.0) g/dL Ur Specific [place] (1.005-1.025) Urine Glucose (UA) (Negative) mg/dL Ur Leukocyte Esterase (Negative) Urine WBC (0-5) /HPF BMP 03/08/22 03/08/22 12:33 12:33 Sodium 129 L Cancelled Potassium 4.4 Cancelled Chloride 100 Cancelled Carbon Dioxide 22 Cancelled BUN 13 Cancelled Creatinine 1.15 Cancelled Calcium 8.9 D Cancelled Liver Function 03/08/22 Range/Units 12:33 Total Bilirubin 0.4 (0.0-1.0) mg/dL AST 24 (5-37) U/L ALT 29 (0-40) U/L Alkaline Phosphatase 88 (39-117) U/L Albumin 3.4 L (3.5-5.0) g/dL Urine 03/08/22 Range/Units 18:44 Urine Color Yellow Urine Appearance Clear Urine pH 5.5 (5.0-9.0) Ur Specific [place] >= 1.030 H (1.005-1.025) Urine Protein Negative (Neg-Trace) mg/dL Urine Glucose (UA) >=1000 H (Negative) mg/dL All other labs normal. Assessment and Plan (1) Phimosis: Status: Acute Plan Conservative management with topical anti fungal Outpatient follow-up once HbA1c control Time Spent With Patient Time: Total time managing care of this patient today ____ minutes. Procedures Date of Service Date of Service: 03/09/22
--- NOTE | 2022-03-09 14:26 | P.PNIM_ITS ---
Subjective Subjective Date of Service: 03/09/22 Interval History: afib, possible balanitis,dm with hyperglycemia Review of Systems Some whitish coating material in the opening or face of penis and some whitish fixation. Has some pain and swelling around penis(glans area) Denies any chest pain or fever or chills or cough or phleg Physical Exam Vital Signs: Vital Signs: Last Vital Signs Temp 97.9 F 03/09/22 11:44 Pulse 85 03/09/22 11:44 Resp 19 03/09/22 11:44 BP 148/74 H 03/09/22 11:44 Pulse Ox 98 03/09/22 11:44 O2 Del Method 03/09/22 11:44 BMI result Body Mass Index 39.3 Appearance: Alert.? Oriented X3.? not in distress.? cvs: rrr, [id number] , no murmur res: clear to auscultation ,no rhonchii or wheezing abd: no rebound or guarding ,nt, bs present. ext pulses present , no cyanosis Gu-whitish coating in the front pain penis, also has home itis situation and some swelling of the glands area. neuro: axo3 , nonfocal. ? Objective Data Active Medications Acetaminophen (Acetaminophen 325 Mg Tablet) 650 mg PO Q6H PRN PRN Reason: Pain, Mild (Pain Scale 1-3) Albuterol Sulfate (Albuterol Sulfate 90 Mcg 8 Gm Inhaler) 2 puff INHALE Q8H PRN PRN Reason: shortness of breath or wheezing Apixaban (Apixaban 5 Mg Tablet) 5 mg PO BID [facility] Last Admin: 03/09/22 08:36 Dose: 5 mg Documented By: REGINA Buspirone HCl (Buspirone Hcl 10 Mg Tablet) 30 mg PO TID [facility] Last Admin: 03/09/22 08:36 Dose: 30 mg Documented By: REGINA Dextrose (Dextrose 50 % 25 Gm/50 Ml Syringe) 25 gm IVPUSH Q15M PRN; Protocol PRN Reason: per Hypoglycemia Standing Ord. Diltiazem HCl (Diltiazem Hcl Cd 180 Mg Cap.Er.24h) 180 mg PO DAILY [facility]; Protocol Last Admin: 03/09/22 08:36 Dose: 180 mg Documented By: BROCandie Docusate Sodium (Docusate Sodium 100 Mg Capsule) 100 mg PO DAILY PRN PRN Reason: Constipation Enoxaparin Sodium (Enoxaparin Sodium 40 Mg/0.4 Ml Syringe) 40 mg SUBCUT ONCE [facility] Last Admin: 03/08/22 00:44 Dose: 40 mg Documented By: DREAD Escitalopram Oxalate (Escitalopram Oxalate 20 Mg Tablet) 20 mg PO DAILY [facility] Last Admin: 03/09/22 08:36 Dose: 20 mg Documented By: REGINA Furosemide (Furosemide 20 Mg Tablet) 20 mg PO DAILY [facility]; Protocol Last Admin: 03/09/22 08:36 Dose: 20 mg Documented By: REGINA Glucose (Glucose Gel 15 Gm Gel..Gram.) 15 gm PO Q15M PRN; Protocol PRN Reason: per Hypoglycemia Standing Ord. Hydroxyzine HCl (Hydroxyzine Hcl 25 Mg Tablet) 25 mg PO TID PRN PRN Reason: for anxiety Fluconazole 100 mg/ IV (Miscellaneous Supplies) 50 mls @ 50 mls/hr IV Q24H [facility] Last Infusion: 03/08/22 17:11 Dose: 0 mls/hr Documented By: MADDENCherelle Insulin Glargine (Insulin Glargine,Hum.Rec.Anlog 100 Unit/Ml 10 Ml Vial) 45 unit SUBCUT BEDTIME [facility] Insulin Glargine (Insulin Glargine,Hum.Rec.Anlog 100 Unit/Ml 10 Ml Vial) 15 unit SUBCUT DAILY [facility] Insulin Human Lispro (Insulin Lispro 100 Unit/Ml 3 Ml Vial) 0 unit SUBCUT QIDACHS [facility]; Protocol Last Admin: 03/09/22 12:04 Dose: 14 unit Documented By: REGINA Lidocaine (Lidocaine 4 % Patch Adh..Patch) 2 patch TRANSDERMA DAILY PRN PRN Reason: Pain, Severe (Pain Scale 7-10) Loratadine (Loratadine 10 Mg Tablet) 10 mg PO DAILY PRN PRN Reason: allergy symptoms Metoprolol Succinate (Metoprolol Succinate Er 100 Mg Tab.Er.24h) 100 mg PO DAILY [facility]; Protocol Last Admin: 03/09/22 08:37 Dose: 100 mg Documented By: REGINA Ondansetron HCl (Ondansetron Hcl 4 Mg/2 Ml Vial) 4 mg IVPUSH Q8H PRN PRN Reason: Nausea and Vomiting Quetiapine Fumarate (Quetiapine Fumarate 50 Mg Tablet) 50 mg PO BEDTIME [facility] Last Admin: 03/08/22 20:51 Dose: 50 mg Documented By: JELLY Sodium Chloride (0.9 % Sodium Chloride Flush 3 Ml Syringe) 3 ml IVFLUSH QSHIFT [facility] Last Admin: 03/09/22 08:37 Dose: 3 ml Documented By: REGINA Tamsulosin HCl (Tamsulosin Hcl 0.4 Mg Capsule) 0.4 mg PO DAILY [facility] Last Admin: 03/09/22 08:53 Dose: 0.4 mg Documented By: REGINA Tramadol HCl (Tramadol Hcl 50 Mg Tablet) 50 mg PO TID PRN PRN Reason: Pain, Severe (Pain Scale 7-10) Last Admin: 03/09/22 08:42 Dose: 50 mg Documented By: REGINA Zolpidem Tartrate (Zolpidem Tartrate 5 Mg Tablet) 10 mg PO BEDTIME PRN PRN Reason: insomnia Labs CBC & Chem 7: 03/08/22 12:33 03/08/22 12:33 Labs: Laboratory Results - last 24 hr 03/08/22 03/08/22 03/08/22 17:41 18:44 20:09 POC Glucose 316 H Estimat Average Glucose Hemoglobin A1c % Urine Color Yellow Urine Appearance Clear Urine pH 5.5 Ur Specific [place] >= 1.030 H Urine Protein Negative Urine Glucose (UA) >=1000 H Urine Ketones Negative Urine Blood Negative Urine Nitrite Negative Ur Leukocyte Esterase Small (1+) H Urine RBC 0-2 Urine WBC 21-50 H Ur Squamous Epith Cells 0-2 Urine Bacteria None Seen Hyaline Casts 0-2 Chlam trachomat DNA PCR NOT DETECTED N.gonorrhoeae DNA (PCR) NOT DETECTED 03/08/22 03/09/22 03/09/22 20:09 07:15 08:31 POC Glucose 524 H* 272 H Estimat Average Glucose 355 Hemoglobin A1c % 14.0 Urine Color Urine Appearance Urine pH Ur Specific [place] Urine Protein Urine Glucose (UA) Urine Ketones Urine Blood Urine Nitrite Ur Leukocyte Esterase Urine RBC Urine WBC Ur Squamous Epith Cells Urine Bacteria Hyaline Casts Chlam trachomat DNA PCR N.gonorrhoeae DNA (PCR) 03/09/22 10:58 POC Glucose 383 H* Estimat Average Glucose Hemoglobin A1c % Urine Color Urine Appearance Urine pH Ur Specific [place] Urine Protein Urine Glucose (UA) Urine Ketones Urine Blood Urine Nitrite Ur Leukocyte Esterase Urine RBC Urine WBC Ur Squamous Epith Cells Urine Bacteria Hyaline Casts Chlam trachomat DNA PCR N.gonorrhoeae DNA (PCR) Microbiology Microbiology Results: Microbiology 03/08/22 19:12 Gram Stain - Final Penis Assessment and Plan (1) Atrial flutter with rapid ventricular response: Status: Acute (2) Hyperglycemia: Status: Acute (3) Balanitis: Status: Acute (4) Pseudohyponatremia: Status: Acute (5) Morbid obesity: Status: Acute Plan 51-year-old male with past medical history of paroxysmal AFib noncompliant with his medications including his anticoagulation, with previous similar episodes a presentation to the hospital presents the hospital with weakness, palpitation found to have tachycardia in the form of AFib with RVR # AFib with RVR - likely secondary to noncompliance, no evidence of acute infection at this time - resistant to Cardizem, as well as metoprolol IV pushes, iv amiodarone - resume Eliquis for anticoagulation-switched to po cardizem,metorprolol - cardiology consulted-changes made as above. # opioid use - patient with history of opioid use disorder - most recently abused heroin - monitor for withdrawals #dm with hyperglycemia - secondary to poorly controlled diabetes - will resume his home insulin-adjusted lantus to 45 u qhs and adjusted sliding scale,added metformin diabetic diet Hba1c levels 14. # hypertension - stable - continue home antihypertensive Balanitis: ?fungal infection added gonorrhae and chlyamdia testing and culture,ua added fluconazole also urology eval Morbid obesity: Encouraged for losing weight DVT prophylaxis:? Eliquis Given patient's AFib with RVR-with med adjustment monitering ,Balanitis-possible fungal infection on iv fluconazole -further testing and urology eval pendin, dm with hyperglycemia Time Spent With Patient Time: Total time managing care of this patient today ____ minutes. Quality Stroke Does the patient have a stroke diagnosis?: No VTE Prior VTE?: No VTE Risk Level:: Medical - low VTE Device Contraindication: Treatment Not Indicated VTE Drug Contraindication: N/A - Med Ordered
[2022-03-09 15:26] LABS: Glucose, Whole Blood 391 mg/dL (60-115)
[2022-03-09] MEDS: Fluconazole in NaCl,Iso-Osm 100 MG in Container,Empty 0 ML 50 MG IV (16:39)
[2022-03-09] MEDS: metFORMIN HCl 500 MG TABLET PO (16:39)
[2022-03-09 19:27] LABS: Glucose, Whole Blood 553 mg/dL (60-115)
[2022-03-09] MEDS: Insulin Glargine,Hum.rec.anlog 100 UNIT/ML 10 ML VIAL 45 UNIT SUBCUT (19:50)
[2022-03-09] MEDS: QUEtiapine Fumarate 50 MG TABLET PO (19:50)
[2022-03-10 03:34] VITALS: BP 163/84; PULSE 93; RESP 20; TEMP 36.8; O2SAT 98
[2022-03-10 07:17] VITALS: BP 143/78; PULSE 88; RESP 20; TEMP 36.5; O2SAT 98
[2022-03-10 07:31] LABS: Glucose, Whole Blood 294 mg/dL (60-115)
[2022-03-10] MEDS: Insulin Glargine,Hum.rec.anlog 100 UNIT/ML 10 ML VIAL 20 UNIT SUBCUT (08:21)
[2022-03-10] MEDS: Insulin Lispro 100 UNIT/ML 3 ML VIAL SUBCUT ×4 (08:21→20:39)
[2022-03-10] MEDS: busPIRone HCl 10 MG TABLET 30 MG PO ×3 (08:22→20:38)
[2022-03-10] MEDS: Furosemide 20 MG TABLET PO (08:23)
[2022-03-10] MEDS: Metoprolol Succinate ER 100 MG TAB.ER.24H PO (08:23)
[2022-03-10] MEDS: metFORMIN HCl 500 MG TABLET PO ×2 (08:23→16:52)
[2022-03-10] MEDS: Escitalopram Oxalate 20 MG TABLET PO (08:23)
[2022-03-10] MEDS: dilTIAZem HCL CD 180 MG CAP.ER.24H PO (08:23)
[2022-03-10] MEDS: Apixaban 5 MG TABLET PO ×2 (08:23→20:38)
[2022-03-10] MEDS: Tamsulosin HCL 0.4 MG CAPSULE PO (08:23)
[2022-03-10] MEDS: traMADoL HCL 50 MG TABLET PO (08:30)
[2022-03-10] MEDS: 0.9 % Sodium Chloride Flush 3 ML SYRINGE IVFLUSH ×3 (08:33→20:38)
[2022-03-10 11:28] LABS: Glucose, Whole Blood 387 mg/dL (60-115)
[2022-03-10 11:34] VITALS: BP 145/75; PULSE 88; RESP 20; TEMP 36.3; O2SAT 98
--- NOTE | 2022-03-10 13:06 | P.PNIM_ITS ---
Subjective Subjective Date of Service: 03/10/22 Interval History: dm with hyperglycemia , penile ? fungal infection Review of Systems Denies any chest pain or shortness of breath or abdominal pain or fever or chills or cough or phlegm. Physical Exam Vital Signs: Vital Signs: Last Vital Signs Temp 97.4 F 03/10/22 11:34 Pulse 88 03/10/22 11:34 Resp 20 03/10/22 11:34 BP 145/75 H 03/10/22 11:34 Pulse Ox 98 03/10/22 11:34 O2 Del Method 03/10/22 11:34 BMI result Body Mass Index 39.3 Appearance: Alert.? Oriented X3.? not in distress.? cvs: rrr, [id number] , no murmur res: clear to auscultation ,no rhonchii or wheezing abd: no rebound or guarding ,nt, bs present. ext pulses present , no cyanosis Gu-whitish coating in the front pain penis, also has home itis situation and some swelling of the glands area. neuro: axo3 , nonfocal. Objective Data Active Medications Acetaminophen (Acetaminophen 325 Mg Tablet) 650 mg PO Q6H PRN PRN Reason: Pain, Mild (Pain Scale 1-3) Albuterol Sulfate (Albuterol Sulfate 90 Mcg 8 Gm Inhaler) 2 puff INHALE Q8H PRN PRN Reason: shortness of breath or wheezing Apixaban (Apixaban 5 Mg Tablet) 5 mg PO BID [facility] Last Admin: 03/10/22 08:23 Dose: 5 mg Documented By: REGINA Buspirone HCl (Buspirone Hcl 10 Mg Tablet) 30 mg PO TID [facility] Last Admin: 03/10/22 08:22 Dose: 30 mg Documented By: REGINA Clotrimazole (Clotrimazole 1 % Cream 15 Gm Tube) 1 appl TOPICAL BID [facility]; Protocol Dextrose (Dextrose 50 % 25 Gm/50 Ml Syringe) 25 gm IVPUSH Q15M PRN; Protocol PRN Reason: per Hypoglycemia Standing Ord. Diltiazem HCl (Diltiazem Hcl Cd 180 Mg Cap.Er.24h) 180 mg PO DAILY [facility]; Protocol Last Admin: 03/10/22 08:23 Dose: 180 mg Documented By: BROCandie Docusate Sodium (Docusate Sodium 100 Mg Capsule) 100 mg PO DAILY PRN PRN Reason: Constipation Enoxaparin Sodium (Enoxaparin Sodium 40 Mg/0.4 Ml Syringe) 40 mg SUBCUT ONCE [facility] Last Admin: 03/08/22 00:44 Dose: 40 mg Documented By: DREAD Escitalopram Oxalate (Escitalopram Oxalate 20 Mg Tablet) 20 mg PO DAILY [facility] Last Admin: 03/10/22 08:23 Dose: 20 mg Documented By: REGINA Furosemide (Furosemide 20 Mg Tablet) 20 mg PO DAILY [facility]; Protocol Last Admin: 03/10/22 08:23 Dose: 20 mg Documented By: REGINA Glucose (Glucose Gel 15 Gm Gel..Gram.) 15 gm PO Q15M PRN; Protocol PRN Reason: per Hypoglycemia Standing Ord. Hydroxyzine HCl (Hydroxyzine Hcl 25 Mg Tablet) 25 mg PO TID PRN PRN Reason: for anxiety Fluconazole 100 mg/ IV (Miscellaneous Supplies) 50 mls @ 50 mls/hr IV Q24H [facility] Last Infusion: 03/09/22 18:55 Dose: 0 mls/hr Documented By: REGINA Insulin Glargine (Insulin Glargine,Hum.Rec.Anlog 100 Unit/Ml 10 Ml Vial) 45 unit SUBCUT BEDTIME [facility] Last Admin: 03/09/22 19:50 Dose: 45 unit Documented By: LIZ Insulin Glargine (Insulin Glargine,Hum.Rec.Anlog 100 Unit/Ml 10 Ml Vial) 20 unit SUBCUT DAILY [facility] Last Admin: 03/10/22 08:21 Dose: 20 unit Documented By: REGINA Insulin Human Lispro (Insulin Lispro 100 Unit/Ml 3 Ml Vial) 0 unit SUBCUT QIDACHS [facility]; Protocol Last Admin: 03/10/22 11:52 Dose: 16 unit Documented By: REGINA Lidocaine (Lidocaine 4 % Patch Adh..Patch) 2 patch TRANSDERMA DAILY PRN PRN Reason: Pain, Severe (Pain Scale 7-10) Loratadine (Loratadine 10 Mg Tablet) 10 mg PO DAILY PRN PRN Reason: allergy symptoms Metformin HCl (Metformin Hcl 500 Mg Tablet) 500 mg PO BIDWM [facility] Last Admin: 03/10/22 08:23 Dose: 500 mg Documented By: REGINA Metoprolol Succinate (Metoprolol Succinate Er 100 Mg Tab.Er.24h) 100 mg PO DAILY [facility]; Protocol Last Admin: 03/10/22 08:23 Dose: 100 mg Documented By: REGINA Ondansetron HCl (Ondansetron Hcl 4 Mg/2 Ml Vial) 4 mg IVPUSH Q8H PRN PRN Reason: Nausea and Vomiting Quetiapine Fumarate (Quetiapine Fumarate 50 Mg Tablet) 50 mg PO BEDTIME [facility] Last Admin: 03/09/22 19:50 Dose: 50 mg Documented By: LIZ Sodium Chloride (0.9 % Sodium Chloride Flush 3 Ml Syringe) 3 ml IVFLUSH QSHIFT [facility] Last Admin: 03/10/22 08:33 Dose: 3 ml Documented By: REGINA Tamsulosin HCl (Tamsulosin Hcl 0.4 Mg Capsule) 0.4 mg PO DAILY [facility] Last Admin: 03/10/22 08:23 Dose: 0.4 mg Documented By: REGINA Tramadol HCl (Tramadol Hcl 50 Mg Tablet) 50 mg PO TID PRN PRN Reason: Pain, Severe (Pain Scale 7-10) Last Admin: 03/10/22 08:30 Dose: 50 mg Documented By: REGINA Zolpidem Tartrate (Zolpidem Tartrate 5 Mg Tablet) 10 mg PO BEDTIME PRN PRN Reason: insomnia Labs CBC & Chem 7: 03/08/22 12:33 03/08/22 12:33 Labs: Laboratory Results - last 24 hr 03/09/22 03/09/22 03/10/22 15:16 19:08 07:21 POC Glucose 391 H* 553 H* 294 H 03/10/22 11:21 POC Glucose 387 H* Microbiology Microbiology Results: Microbiology 03/08/22 19:12 Fungal Identification - Preliminary Penis Yeast 03/08/22 19:12 Gram Stain - Final Penis Routine Culture - Preliminary Culture in progress. Assessment and Plan (1) Atrial flutter with rapid ventricular response: Status: Acute (2) Hyperglycemia: Status: Acute (3) Balanitis: Status: Acute (4) Pseudohyponatremia: Status: Acute (5) Morbid obesity: Status: Acute Plan 51-year-old male with past medical history of paroxysmal AFib noncompliant with his medications including his anticoagulation, with previous similar episodes a presentation to the hospital presents the hospital with weakness, palpitation found to have tachycardia in the form of AFib with RVR # AFib with RVR - likely secondary to noncompliance, no evidence of acute infection at this time - resistant to Cardizem, as well as metoprolol IV pushes, iv amiodarone - resume Eliquis for anticoagulation-switched to po cardizem,metorprolol - cardiology consulted-changes made as above. # opioid use - patient with history of opioid use disorder - most recently abused heroin - monitor for withdrawals #dm with hyperglycemia-runnin 400's - secondary to poorly controlled diabetes - will resume his home insulin-adjusted lantus to 45 u qhs,added lantus 20 units . and adjusted sliding scale,added metformin diabetic diet Hba1c levels 14. # hypertension - stable - continue home antihypertensive Balanitis: ?fungal infection gonorrhae and chlyamdia testing neg penile culture -growin yeast added fluconazole ,also added topical antifungals urology eval Morbid obesity: Encouraged for losing weight DVT prophylaxis:? Eliquis Balanitis-possible fungal infection on iv fluconazole -further testing and urology eval pendin, dm with hyperglycemia-need insulin adjustment ,renal function and electrolytes . Time Spent With Patient Time: Total time managing care of this patient today ____ minutes. Quality Stroke Does the patient have a stroke diagnosis?: No VTE Prior VTE?: No VTE Risk Level:: Medical - low VTE Device Contraindication: Treatment Not Indicated VTE Drug Contraindication: N/A - Med Ordered
--- NOTE | 2022-03-10 14:20 | MHC.CM.PN ---
PER MD ROUNDS, PT NOT MEDICALLY CLEARED FOR DC (HIGH BLOOD SUGARS, POSSIBLE BALANITIS, MONITOR LABS) CM WILL CONTINUE TO FOLLOW.
[2022-03-10] MEDS: Fluconazole in NaCl,Iso-Osm 100 MG in Container,Empty 0 ML 50 MG IV (15:43)
[2022-03-10 16:00] VITALS: BP 117/65; PULSE 83; RESP 17; TEMP 36.7; O2SAT 97
[2022-03-10 16:33] LABS: Glucose, Whole Blood 314 mg/dL (60-115)
[2022-03-10 19:34] VITALS: BP 137/84; PULSE 87; RESP 16; TEMP 36.4; O2SAT 98
[2022-03-10 20:28] LABS: Glucose, Whole Blood 389 mg/dL (60-115)
[2022-03-10] MEDS: QUEtiapine Fumarate 50 MG TABLET PO (20:38)
[2022-03-10] MEDS: Insulin Glargine,Hum.rec.anlog 100 UNIT/ML 10 ML VIAL 45 UNIT SUBCUT (20:39)
[2022-03-10] MEDS: Clotrimazole 1 % Cream 15 GM TUBE 1 APPL TOPICAL (20:43)
[2022-03-11] VITALS: BP 141/91; PULSE 85; RESP 16; TEMP 36.6; O2SAT 98
[2022-03-11 07:21] VITALS: BP 157/80; PULSE 88; RESP 20; TEMP 36.5; O2SAT 98
[2022-03-11 07:22] LABS: Glucose, Whole Blood 316 mg/dL (60-115)
[2022-03-11] MEDS: Insulin Lispro 100 UNIT/ML 3 ML VIAL SUBCUT ×4 (08:02→20:30)
[2022-03-11] MEDS: Apixaban 5 MG TABLET PO ×2 (08:03→20:29)
[2022-03-11] MEDS: metFORMIN HCl 500 MG TABLET PO ×2 (08:03→16:28)
[2022-03-11] MEDS: Tamsulosin HCL 0.4 MG CAPSULE PO (08:03)
[2022-03-11] MEDS: busPIRone HCl 10 MG TABLET 30 MG PO ×3 (08:03→20:29)
[2022-03-11] MEDS: Insulin Glargine,Hum.rec.anlog 100 UNIT/ML 10 ML VIAL 20 UNIT SUBCUT (08:03)
[2022-03-11] MEDS: Furosemide 20 MG TABLET PO (08:03)
[2022-03-11] MEDS: dilTIAZem HCL CD 180 MG CAP.ER.24H PO (08:04)
[2022-03-11] MEDS: 0.9 % Sodium Chloride Flush 3 ML SYRINGE IVFLUSH ×3 (08:04→20:31)
[2022-03-11] MEDS: Metoprolol Succinate ER 100 MG TAB.ER.24H PO (08:04)
[2022-03-11] MEDS: Escitalopram Oxalate 20 MG TABLET PO (08:04)
[2022-03-11] MEDS: Clotrimazole 1 % Cream 15 GM TUBE 1 APPL TOPICAL ×2 (09:58→20:32)
[2022-03-11 11:24] VITALS: BP 139/87; PULSE 86; RESP 20; TEMP 36.6; O2SAT 97
[2022-03-11 11:29] LABS: Glucose, Whole Blood 336 mg/dL (60-115)
[2022-03-11] MEDS: Fluconazole in NaCl,Iso-Osm 100 MG in Container,Empty 0 ML 50 MG IV (14:57)
--- NOTE | 2022-03-11 15:04 | HO.PM.IMPN ---
Subjective Subjective Date of Service: 03/11/22 Interval History: dm with hyperglycemia , penile ? fungal infection Review of Systems still has penile pain, still significantly hyperglycemic. Denies any chest pain or shortness of breath or abdominal pain or fever or chills. Physical Exam Vital Signs: Vital Signs: Last Vital Signs Temp 97.8 F 03/11/22 11:24 Pulse 86 03/11/22 11:24 Resp 20 03/11/22 11:24 BP 139/87 03/11/22 11:24 Pulse Ox 97 03/11/22 11:24 O2 Del Method 03/11/22 11:24 BMI result Body Mass Index 39.3 Appearance: Alert.? Oriented X3.? not in distress.? cvs: [id number], [id number] , no murmur res: clear to auscultation ,no rhonchii or wheezing abd: no rebound or guarding ,nt, bs present. ext pulses present , no cyanosis Gu-whitish coating in the front pain penis, also has home itis situation and some swelling of the glands area. neuro: axo3 , nonfocal. Objective Data Active Medications Acetaminophen (Acetaminophen 325 Mg Tablet) 650 mg PO Q6H PRN PRN Reason: Pain, Mild (Pain Scale 1-3) Albuterol Sulfate (Albuterol Sulfate 90 Mcg 8 Gm Inhaler) 2 puff INHALE Q8H PRN PRN Reason: shortness of breath or wheezing Apixaban (Apixaban 5 Mg Tablet) 5 mg PO BID [facility] Last Admin: 03/11/22 08:03 Dose: 5 mg Documented By: TOMY Buspirone HCl (Buspirone Hcl 10 Mg Tablet) 30 mg PO TID [facility] Last Admin: 03/11/22 14:57 Dose: 30 mg Documented By: TOMY Clotrimazole (Clotrimazole 1 % Cream 15 Gm Tube) 1 appl TOPICAL BID [facility]; Protocol Last Admin: 03/11/22 09:58 Dose: 1 appl Documented By: TOMY Dextrose (Dextrose 50 % 25 Gm/50 Ml Syringe) 25 gm IVPUSH Q15M PRN; Protocol PRN Reason: per Hypoglycemia Standing Ord. Diltiazem HCl (Diltiazem Hcl Cd 180 Mg Cap.Er.24h) 180 mg PO DAILY [facility]; Protocol Last Admin: 03/11/22 08:04 Dose: 180 mg Documented By: TOMY Docusate Sodium (Docusate Sodium 100 Mg Capsule) 100 mg PO DAILY PRN PRN Reason: Constipation Enoxaparin Sodium (Enoxaparin Sodium 40 Mg/0.4 Ml Syringe) 40 mg SUBCUT ONCE [facility] Last Admin: 03/08/22 00:44 Dose: 40 mg Documented By: DREAD Escitalopram Oxalate (Escitalopram Oxalate 20 Mg Tablet) 20 mg PO DAILY [facility] Last Admin: 03/11/22 08:04 Dose: 20 mg Documented By: TOMY Furosemide (Furosemide 20 Mg Tablet) 20 mg PO DAILY [facility]; Protocol Last Admin: 03/11/22 08:03 Dose: 20 mg Documented By: TOMY Glucose (Glucose Gel 15 Gm Gel..Gram.) 15 gm PO Q15M PRN; Protocol PRN Reason: per Hypoglycemia Standing Ord. Hydroxyzine HCl (Hydroxyzine Hcl 25 Mg Tablet) 25 mg PO TID PRN PRN Reason: for anxiety Fluconazole 100 mg/ IV (Miscellaneous Supplies) 50 mls @ 50 mls/hr IV Q24H [facility] Last Admin: 03/11/22 14:57 Dose: 50 mls/hr Documented By: TOMY Insulin Glargine (Insulin Glargine,Hum.Rec.Anlog 100 Unit/Ml 10 Ml Vial) 25 unit SUBCUT DAILY [facility] Insulin Glargine (Insulin Glargine,Hum.Rec.Anlog 100 Unit/Ml 10 Ml Vial) 50 unit SUBCUT BEDTIME [facility] Insulin Human Lispro (Insulin Lispro 100 Unit/Ml 3 Ml Vial) 0 unit SUBCUT QIDACHS [facility]; Protocol Last Admin: 03/11/22 11:41 Dose: 12 unit Documented By: TOMY Lidocaine (Lidocaine 4 % Patch Adh..Patch) 2 patch TRANSDERMA DAILY PRN PRN Reason: Pain, Severe (Pain Scale 7-10) Loratadine (Loratadine 10 Mg Tablet) 10 mg PO DAILY PRN PRN Reason: allergy symptoms Metformin HCl (Metformin Hcl 500 Mg Tablet) 500 mg PO BIDWM [facility] Last Admin: 03/11/22 08:03 Dose: 500 mg Documented By: TOMY Metoprolol Succinate (Metoprolol Succinate Er 100 Mg Tab.Er.24h) 100 mg PO DAILY [facility]; Protocol Last Admin: 03/11/22 08:04 Dose: 100 mg Documented By: TOMY Ondansetron HCl (Ondansetron Hcl 4 Mg/2 Ml Vial) 4 mg IVPUSH Q8H PRN PRN Reason: Nausea and Vomiting Quetiapine Fumarate (Quetiapine Fumarate 50 Mg Tablet) 50 mg PO BEDTIME [facility] Last Admin: 03/10/22 20:38 Dose: 50 mg Documented By: LIZ Sodium Chloride (0.9 % Sodium Chloride Flush 3 Ml Syringe) 3 ml IVFLUSH QSHIFT [facility] Last Admin: 03/11/22 15:00 Dose: 3 ml Documented By: TOMY Tamsulosin HCl (Tamsulosin Hcl 0.4 Mg Capsule) 0.4 mg PO DAILY [facility] Last Admin: 03/11/22 08:03 Dose: 0.4 mg Documented By: TOMY Tramadol HCl (Tramadol Hcl 50 Mg Tablet) 50 mg PO TID PRN PRN Reason: Pain, Severe (Pain Scale 7-10) Last Admin: 03/10/22 08:30 Dose: 50 mg Documented By: DOBROCandie Zolpidem Tartrate (Zolpidem Tartrate 5 Mg Tablet) 10 mg PO BEDTIME PRN PRN Reason: insomnia Labs CBC & Chem 7: 03/08/22 12:33 03/08/22 12:33 Labs: Laboratory Results - last 24 hr 03/10/22 03/10/22 03/11/22 16:19 20:16 07:19 POC Glucose 314 H 389 H* 316 H 03/11/22 11:26 POC Glucose 336 H Microbiology Microbiology Results: Microbiology 03/08/22 19:12 Gram Stain - Final Penis Routine Culture - Final Strep agalactiae (Grp B) 03/08/22 19:12 Fungal Identification - Preliminary Penis Sunitha albicans Assessment and Plan (1) Atrial flutter with rapid ventricular response: Status: Acute (2) Hyperglycemia: Status: Acute (3) Balanitis: Status: Acute (4) Pseudohyponatremia: Status: Acute (5) Morbid obesity: Status: Acute Plan 51-year-old male with past medical history of paroxysmal AFib noncompliant with his medications including his anticoagulation, with previous similar episodes a presentation to the hospital presents the hospital with weakness, palpitation found to have tachycardia in the form of AFib with RVR # AFib with RVR - likely secondary to noncompliance, no evidence of acute infection at this time - resistant to Cardizem, as well as metoprolol IV pushes, iv amiodarone - resume Eliquis for anticoagulation-switched to po cardizem,metorprolol - cardiology consulted-changes made as above. # opioid use - patient with history of opioid use disorder - most recently abused heroin - monitor for withdrawals #dm with hyperglycemia-runnin 300-400 - secondary to poorly controlled diabetes adjusted lantus to 50 u qhs,added lantus 25 units . continue adjusted sliding scale, metformin diabetic diet Hba1c levels 14. # hypertension - stable - continue home antihypertensive Balanitis: ?fungal infection gonorrhae and chlyamdia testing neg penile culture -growin yeast added fluconazole ,also added topical antifungals urology eval-noted -topical/iv antifungal. ? if may benefit from circumcision. Morbid obesity: Encouraged for losing weight DVT prophylaxis:? Eliquis Balanitis-possible fungal infection on iv fluconazole -further testing and urology eval pendin, dm with hyperglycemia-need insulin adjustment ,renal function and electrolytes . Time Spent With Patient Time: Total time managing care of this patient today ____ minutes. Quality Stroke Does the patient have a stroke diagnosis?: No VTE Prior VTE?: No VTE Risk Level:: Medical - low VTE Device Contraindication: Treatment Not Indicated VTE Drug Contraindication: N/A - Med Ordered
[2022-03-11 15:09] VITALS: BP 128/74; PULSE 84; RESP 18; TEMP 36.7; O2SAT 97
[2022-03-11 15:49] LABS: Glucose, Whole Blood 331 mg/dL (60-115)
[2022-03-11 20:00] VITALS: BP 133/79; PULSE 86; RESP 16; TEMP 36.4; O2SAT 95
[2022-03-11 20:18] LABS: Glucose, Whole Blood 313 mg/dL (60-115)
[2022-03-11] MEDS: QUEtiapine Fumarate 50 MG TABLET PO (20:29)
[2022-03-11] MEDS: Insulin Glargine,Hum.rec.anlog 100 UNIT/ML 10 ML VIAL 50 UNIT SUBCUT (20:30)
[2022-03-11 23:57] VITALS: BP 142/79; PULSE 90; RESP 20; TEMP 36.8; O2SAT 98
[2022-03-12 03:50] VITALS: BP 130/61; PULSE 82; RESP 20; TEMP 37; O2SAT 96
[2022-03-12 07:16] LABS: Hematocrit 50.2 % (42.0-52.0); Hemoglobin 16.6 g/dl (14.0-18.0); Mean Corpuscular HGB Conc 33.1 g/dl (31.0-36.0); Mean Corpuscular Hemoglobin 28.7 pg (27.0-33.0); Mean Corpuscular Volume 86.7 fL (80.0-98.0); Platelet Count 436 X10*3/uL (160-400); Red Blood Count 5.79 X10*6/uL (4.60-5.80); Red Cell Distribution Width 12.5 % (11.0-16.0); White Blood Count 14.4 X10*3/uL (4.8-10.8)
[2022-03-12 07:23] VITALS: BP 138/60; PULSE 82; RESP 20; TEMP 36.9; O2SAT 96
[2022-03-12 07:43] LABS: Glucose, Whole Blood 418 mg/dL (60-115)
[2022-03-12] MEDS: Insulin Lispro 100 UNIT/ML 3 ML VIAL SUBCUT ×3 (08:07→11:36)
[2022-03-12] MEDS: metFORMIN HCl 500 MG TABLET PO (08:08)
[2022-03-12] MEDS: dilTIAZem HCL CD 180 MG CAP.ER.24H PO (08:08)
[2022-03-12] MEDS: Apixaban 5 MG TABLET PO (08:08)
[2022-03-12] MEDS: Escitalopram Oxalate 20 MG TABLET PO (08:08)
[2022-03-12] MEDS: Metoprolol Succinate ER 100 MG TAB.ER.24H PO (08:08)
[2022-03-12] MEDS: busPIRone HCl 10 MG TABLET 30 MG PO (08:08)
[2022-03-12] MEDS: 0.9 % Sodium Chloride Flush 3 ML SYRINGE IVFLUSH (08:09)
[2022-03-12] MEDS: Tamsulosin HCL 0.4 MG CAPSULE PO (08:09)
[2022-03-12] MEDS: Clotrimazole 1 % Cream 15 GM TUBE 1 APPL TOPICAL (08:09)
[2022-03-12] MEDS: Insulin Glargine,Hum.rec.anlog 100 UNIT/ML 10 ML VIAL 25 UNIT SUBCUT (08:11)
[2022-03-12] MEDS: metFORMIN HCl 1,000 MG TABLET 1000 MG PO (09:29)
[2022-03-12 09:35] LABS: Glucose, Whole Blood 410 mg/dL (60-115)
[2022-03-12 11:24] VITALS: BP 141/76; PULSE 88; RESP 16; TEMP 36.7; O2SAT 94
[2022-03-12 11:32] LABS: Glucose, Whole Blood 343 mg/dL (60-115)
[2022-03-12] MEDS: Doxycycline Monohydrate 100 MG CAPSULE PO (14:12)
--- NOTE | 2022-03-12 14:22 | PM.DS ---
DS: Providers Provider Date of Service: 03/12/22 Date of admission: 03/08/22 10:03 Date of discharge: 03/12/22 Primary care physician: Julio Carter MD Consults: 03/07/22 20:24 Consult to Cardiology Stat Consulting Provider: Mario Rivas Reason for consultation: atrial flutter with RVR Has provider been notified: Yes 03/08/22 13:44 Consult to Urology Routine Consulting Provider: Omid Cramer Reason for consultation: ballanitis/alex Has provider been notified: No DS: Diagnosis Discharge Diagnosis (1) Atrial flutter with rapid ventricular response: Status: Acute (2) Hyperglycemia: Status: Acute (3) Balanitis: Status: Acute (4) Pseudohyponatremia: Status: Acute (5) Morbid obesity: Status: Acute DS: Summary Hospital Course Hospital Course: 51-year-old male with past medical history of paroxysmal AFib, not on anticoagulation due to history of nasal bleed, opioid use disorder, diabetes, asthma, history of seizures, HTN, anxiety presents to the hospital with complaints of weakness and palpitations.? Patient also reports that he has had high glucose readings for the past 2 days therefore she decided to come to the hospital.? He reports that he used inter nasal heroin 2 days ago, denies using cocaine, reports no alcohol use.? Patient reports tachycardia, with no dizziness, no shortness of breath, no chest pain, no fever or chills, no abdominal pain nausea or vomiting, no diarrhea constipation, no urinary symptoms and no lower extremity edema.? On arrival to the ED patient found to have heart rate in the 140s to 170s.? Patient started on Cardizem drip with minimal affect, discussed with Cardiology who recommended p.r.n. digoxin versus metoprolol, this was tried but patient did not respond continued to have tachycardia, Cardizem drip postop, patient was loaded with amiodarone and started on the amiodarone drip with control of heart rate.? Labs are found to be significant for WBC count of 12.2, glucose of 381, BNP of 248, UDS positive for fentanyl, viral serology negative. Chest x-ray negative. Hospital course: Patient was admitted for AFib with RVR: Treated with IV metoprolol as well as amiodarone: Heart rate seems to improved-seen by Cardiology recommended to start p.o. Cardizem and metoprolol . Balanitis: Pain iron is culture and fungal culture reviewed: Discussed with infectious disease-going home with fluconazole and doxycycline. In addition antifungal topical cream also added at per urology: Patient says that the symptoms are improving. If patient has recurrent situation may consider outpatient follow-up with Urology. Diabetes with hyperglycemia: Patient claims that his sugars are better controlled at home, hemoglobin A1c was 14: Lantus adjusted, continue home regimen, monitor fingersticks closely. Further management outpatient with PCP, recommended to consider outpatient endocrinology evaluation. History of opioid use: Patient was strongly advised to abstain from opiates. Obesity: Encouraged to lose weight. Above management discussed with the patient in detail length including diabetic education and good diabetic control, consider outpatient endocrinology evaluation, follow-up with Urology out patiently. Assessment and plan coordination time spent 50 minute. Time Spent with Patient Time attestation: Total time managing care of this patient today ____ minutes. Discharge coordination time: Greater than 30 minutes Quality: Safe Use of Opioids Does Pt have an Active Cancer Diagnosis on the Problem List?: No Quality: Stroke Does the patient have a stroke diagnosis?: No Physical Exam Vital Signs: Vital Signs: Last Vital Signs Temp 98.0 F 03/12/22 11:24 Pulse 88 03/12/22 11:24 Resp 16 03/12/22 11:24 BP 141/76 H 03/12/22 11:24 Pulse Ox 94 03/12/22 11:24 O2 Del Method 03/12/22 11:24 BMI result Body Mass Index 39.3 Appearance: Alert.? Oriented X3.? not in distress.? cvs: rrr, [id number] , no murmur res: clear to auscultation ,no rhonchii or wheezing abd: no rebound or guarding ,nt, bs present. ext pulses present , no cyanosis Gu-foreskin is little tract but otherwise no erythema or discharge currently. neuro: axo3 , nonfocal. DS: Data Data Completed and Pending Labs on day of discharge: Laboratory Results - last 24 hr 03/11/22 03/11/22 03/12/22 15:12 20:14 06:16 WBC 14.4 H RBC 5.79 Hgb 16.6 Hct 50.2 MCV 86.7 MCH 28.7 MCHC 33.1 RDW 12.5 Plt Count 436 H D MPV 10.0 Absolute Nucleated RBC 0.000 Nucleated RBC % (auto) 0.0 POC Glucose 331 H 313 H 03/12/22 03/12/22 03/12/22 07:22 09:28 11:23 WBC RBC Hgb Hct MCV MCH MCHC RDW Plt Count MPV Absolute Nucleated RBC Nucleated RBC % (auto) POC Glucose 418 H* 410 H* 343 H Preliminary micro results at discharge 03/08/22 19:12 Fungal Identification - Preliminary Penis Alex albicans Imaging Chest x-ray: Radiologist's impression: ITS Impressions Chest X-Ray 03/07/22 16:13 IMPRESSION: Unremarkable examination. Discharge Plan Discharge Anticipated Discharge Date/Time: 03/12/22 12:49 Patient Disposition: Home, Self-Care Discharge Diagnosis: dm with hyperglycemia, balanitis ,dm with hyperglycemia Referrals: Julio Carter MD [Primary Care Provider] - 1 Week Discharge Medications: New fluconazole [Diflucan] 100 mg tablet 100 mg PO DAILY Qty: 5 0RF doxycycline hyclate 100 mg tablet 100 mg PO BID Qty: 19 0RF diltiazem HCl [Cardizem CD] 180 mg Capsule,Extended Release 24hr 180 mg PO DAILY Qty: 30 0RF Protocol: Hold for SBP/HR < HOLD for SBP < : 90 HOLD for HR < : 60 metoprolol succinate 100 mg Tablet Extended Release 24 Hr 100 mg PO DAILY Qty: 30 0RF Protocol: Hold for SBP/HR < HOLD for SBP < : 90 HOLD for HR < : 60 clotrimazole 1 % Cream 1 appl topical BID Qty: 1 0RF Protocol: Apply to: Apply to: penile area Continued (DME) lancets 28 gauge misc See Rx Instructions topical TID Qty: 100 0RF Rx Instructions: As directed (DME) pen needle, diabetic 31 gauge x 3/16 needle See Rx Instructions subcut .MEDSUPPLY Qty: 50 3RF Rx Instructions: One daily albuterol sulfate 90 mcg/actuation HFA aerosol inhaler 2 puff PO Q8H PRN (Reason: shortness of breath or wheezing) 30 Days Qty: 8.5 3RF (DME) FreeStyle Lite Strips Strip See Rx Instructions .ROUTE .MEDSUPPLY Qty: 100 12RF Rx Instructions: As directed three times a day buspirone 30 mg tablet 30 mg PO TID Qty: 90 1RF tamsulosin 0.4 mg capsule 0.4 mg PO DAILY Qty: 30 1RF Label Comments: pt takes it sometimes escitalopram oxalate 20 mg tablet 20 mg PO DAILY Qty: 30 1RF quetiapine 50 mg tablet 50 mg PO BEDTIME Qty: 30 0RF lisinopril 30 mg tablet 30 mg PO DAILY Qty: 90 0RF zolpidem 10 mg tablet 10 mg PO BEDTIME PRN (Reason: insomnia) 30 Days Qty: 30 1RF hydroxyzine HCl 25 mg tablet 25 mg PO TID PRN (Reason: for anxiety) Qty: 90 0RF Eliquis 5 mg tablet 5 mg PO BID 30 Days Qty: 60 2RF tramadol 50 mg tablet 50 mg PO TID PRN (Reason: pain) 30 Days Qty: 90 0RF furosemide [Lasix] 20 mg tablet 20 mg PO DAILY 15 Days Qty: 15 0RF Rx Instructions: pt report he takes it sometimes diclofenac sodium [Voltaren Arthritis Pain] 1 % gel 2 g topical QID PRN (Reason: Pain) Rx Instructions: apply to single elbow, wrist or hand; for hand includes palm/fingers/back of hand (DME) richard.stocking,knee,reg,xlrg Misc See Rx Instructions .Route Qty: 12 0RF Rx Instructions: As directed lidocaine 5 % adhesive patch,medicated 2 patch topical DAILY PRN (Reason: pain) Qty: 60 5RF Rx Instructions: leave on most painful area for up to 12 hrs. keep off for 12 hrs metformin 1,000 mg tablet 1,000 mg PO BID Qty: 60 3RF cetirizine 10 mg tablet 10 mg PO DAILY PRN (Reason: allergy symptoms) 90 Days Qty: 90 3RF (DME) blood-glucose meter [FreeStyle [place] Lite] Kit See Rx Instructions .Route Qty: 1 0RF Rx Instructions: As directed checks 4X day Trulicity 1.5 mg/0.5 mL pen injector 1.5 mg subcut QWEEK Qty: 2 5RF Changed insulin glargine 100 unit/mL (3 mL) insulin pen 50 unit subcut BEDTIME Qty: 15 6RF Discontinued metoprolol tartrate 50 mg tablet 100 mg PO BID Qty: 60 0RF Discharge Orders: Discharge Order (Routine); Ordered 03/12/22 Ordered By: Kassie Jerry Diet: Advance to usual diet Activity on Discharge: As tolerated Stand Alone Forms: Patient Portal Discharge page Care Plan Goals: Patient was admitted for AFib with RVR: Treated with IV metoprolol as well as amiodarone: Heart rate seems to improved-seen by Cardiology recommended to start p.o. Cardizem and metoprolol . Balanitis: Pain iron is culture and fungal culture reviewed: Discussed with infectious disease-going home with fluconazole and doxycycline. In addition antifungal topical cream also added at per urology: Patient says that the symptoms are improving. If patient has recurrent situation may consider outpatient follow-up with Urology. Diabetes with hyperglycemia: Patient claims that his sugars are better controlled at home, hemoglobin A1c was 14: Lantus adjusted, continue home regimen, monitor fingersticks closely. Further management outpatient with PCP, recommended to consider outpatient endocrinology evaluation. History of opioid use: Patient was strongly advised to abstain from opiates. Health Concerns: As above. Plan of Treatment: As above. Assessment: As above.
--- NOTE | 2022-03-12 14:48 | MHC.CM.PN ---
met with pt per dr olmstead request confirming that pt is not home bound thereforte doies not qualify for vna pt making own arrangements for ride home
== END 2022-03-12 15:45 | disposition home or self-care (01) | DRG 201 ==
LOC: HO.ED 18:58 → HO.EDOVER 21:42 → HO.IMC 03-08 16:35
PROVIDERS: Admitting Provider Internal Medicine; Emergency Provider Emergency Medicine Emergency Medical Services; PCP Internal Medicine; Visit Provider Internal Medicine
DX: I48.0 Paroxysmal atrial fibrillation (principal); B37.42 Candidal balanitis; E11.65 Type 2 diabetes mellitus with hyperglycemia; F11.10 Opioid abuse, uncomplicated; E66.01 Morbid (severe) obesity due to excess calories; N47.1 Phimosis; Z20.822 Contact with and (suspected) exposure to COVID-19; Z68.41 Body mass index [BMI] 40.0-44.9, adult; Z91.14 Patient's other noncompliance with medication regimen; Z79.4 Long term (current) use of insulin; Z79.01 Long term (current) use of anticoagulants; Z79.84 Long term (current) use of oral hypoglycemic drugs; Z79.899 Other long term (current) drug therapy
CPT/HCPCS: 0241U; 36415; 71045; 80048; 80053; 80307; 81001; 82947; 83036; 83690; 83880; 84443; 84484; 85025; 85027; 85610; 85730; 87070; 87102; 87106; 87147; 87205; 87491; 87591; 93005; 99285; J0282; J1160; J1450; J1650

== ENCOUNTER → 2022-04-20 14:26 | Outpatient (BNVA) | payer OTHER, SELFPAY | PROVIDERS: PCP Internal Medicine; Visit Provider Internal Medicine Endocrinology, Diabetes & Metabolism | DX: E11.65 Type 2 diabetes mellitus with hyperglycemia (principal); E11.01 Type 2 diabetes mellitus with hyperosmolarity with coma; E66.01 Morbid (severe) obesity due to excess calories; Z68.41 Body mass index [BMI] 40.0-44.9, adult; Z79.4 Long term (current) use of insulin | CPT/HCPCS: 82947; 99212 ==

== ENCOUNTER 2022-05-12 14:26 | Outpatient (REF) | payer OTHER, SELFPAY ==
[2022-05-12 15:02] LABS: MANUAL DIFF FLAG NO
[2022-05-12 15:38] LABS: Basophils Percent Auto 0.6 % (0-2); Eosinophils Absolute Auto 0.1 X10*3/uL (0.0-0.4); Eosinophils Percent Auto 0.9 % (0-4); Hematocrit 41.7 % (42.0-52.0); Hemoglobin 13.5 g/dl (14.0-18.0); Imm Gran Abs Auto 0.02 X10*3/uL (0.00-0.03); Imm Gran Pct Auto 0.3 % (0.0-0.4); Lymphocytes Absolute Auto 1.7 X10*3/uL (1.2-4.9); Mean Corpuscular HGB Conc 32.4 g/dl (31.0-36.0); Mean Corpuscular Volume 89.7 fL (80.0-98.0); Mean Platelet Volume 10.1 fL (9.4-12.4); Monocytes Absolute Auto 0.5 X10*3/uL (0.1-1.2); Neutrophils Absolute Auto 4.1 x10*3/uL (2.0-8.3); Neutrophils Percent Auto 64.2 % (45-73); Platelet Count 310 X10*3/uL (160-400); Red Blood Count 4.65 X10*6/uL (4.60-5.80); Red Cell Distribution Width 12.6 % (11.0-16.0); White Blood Count 6.4 X10*3/uL (4.8-10.8)
[2022-05-12 15:52] LABS: Estimated Average Glucose 263 mg/dL; Hemoglobin A1c % 10.8 %
[2022-05-12 16:06] LABS: Appearance Urine Clear; Color Urine Yellow; Glucose Urine UA >=1000 mg/dL (Negative); Leukocyte Esterase Urine Negative (Negative); Nitrite Urine Negative (Negative); Specific Gravity - Urine >= 1.030 (1.005-1.025); UMIC TRIGGER UACC YES; Urine Blood Negative (Negative); Urine Ketones Negative (Negative); Urine Protein Negative (Neg-Trace)
[2022-05-12 16:16] LABS: Bacteria Urine None Seen (None Seen); Hyaline Casts Urine 0-2 /LPF (0-2); RBC Urine 0-2 /HPF (0-2); Squamous Epithelial Cell Urine 0-2 /HPF (0-2); WBC Urine 0-5 /HPF (0-5)
[2022-05-12 16:16] LABS: Alanine Aminotransferase 71 U/L (0-40); Albumin Level 4.1 g/dL (3.5-5.0); Alkaline Phosphatase 123 U/L (39-117); Anion Gap 12 (12-20); Aspartate Amino Transferase 30 U/L (5-37); Bilirubin Total 0.6 mg/dL (0.0-1.0); Blood Urea Nitrogen 14 mg/dL (9-16); Calcium 9.4 mg/dL (8.4-10.2); Carbon Dioxide 28 mmol/L (22-29); Chloride 103 mmol/L (96-108); Cholesterol 160 mg/dL; Estimated Glomerular Filt Rate > 60; Glucose Fasting 265 mg/dL (60-99); HDL Cholesterol 52 mg/dL; LDL Cholesterol Calculated 92 mg/dl; Potassium 4.6 mmol/L (3.3-5.1); Sodium 138 mmol/L (135-145); Total Protein 7.1 g/dL (6.5-8.0); Triglycerides 84 mg/dL
[2022-05-12 16:22] LABS: TSH reflex Free T4 1.94 uIU/mL (0.32-4.0); Vitamin D 25-OH Total 16.8 ng/mL (>30)
[2022-05-12 16:48] LABS: Creatinine Urine 104.98 mg/dL
== END 2022-05-12 14:27 | disposition home or self-care (01) ==
LOC: HO.LAB 14:26
PROVIDERS: PCP Internal Medicine; Visit Provider Internal Medicine
DX: E55.9 Vitamin D deficiency, unspecified (principal); E11.9 Type 2 diabetes mellitus without complications; E78.00 Pure hypercholesterolemia, unspecified; I10 Essential (primary) hypertension
CPT/HCPCS: 36415; 80053; 80061; 81001; 81003; 82043; 82306; 83036; 84443; 85025

== ENCOUNTER 2022-08-16 16:52 | Outpatient (REF) | payer OTHER, SELFPAY ==
[2022-08-16 17:34] LABS: MANUAL DIFF FLAG NO
[2022-08-16 17:38] LABS: Basophils Percent Auto 0.2 % (0-2); Eosinophils Absolute Auto 0.1 X10*3/uL (0.0-0.4); Eosinophils Percent Auto 0.7 % (0-4); Hematocrit 38.1 % (42.0-52.0); Hemoglobin 12.8 g/dl (14.0-18.0); Imm Gran Abs Auto 0.03 X10*3/uL (0.00-0.03); Imm Gran Pct Auto 0.3 % (0.0-0.4); Lymphocytes Absolute Auto 1.9 X10*3/uL (1.2-4.9); Lymphocytes Percent Auto 19.4 % (20-40); Mean Corpuscular HGB Conc 33.6 g/dl (31.0-36.0); Mean Corpuscular Hemoglobin 29.6 pg (27.0-33.0); Mean Platelet Volume 9.5 fL (9.4-12.4); Monocytes Absolute Auto 0.8 X10*3/uL (0.1-1.2); Monocytes Percent Auto 8.3 % (2-11); Neutrophils Absolute Auto 6.8 x10*3/uL (2.0-8.3); Neutrophils Percent Auto 71.1 % (45-73); Platelet Count 286 X10*3/uL (160-400); Red Blood Count 4.33 X10*6/uL (4.60-5.80); Red Cell Distribution Width 13.2 % (11.0-16.0); White Blood Count 9.5 X10*3/uL (4.8-10.8)
[2022-08-16 18:11] LABS: Creatinine Urine 192.91 mg/dL; Microalbum/Creatinine Ratio Ur 23.8 ug/mg cr
[2022-08-16 18:22] LABS: Appearance Urine Clear; Color Urine Yellow; Glucose Urine UA 500 mg/dL (Negative); Leukocyte Esterase Urine Negative (Negative); Nitrite Urine Negative (Negative); Specific Gravity - Urine >= 1.030 (1.005-1.025); Urine Blood Negative (Negative); Urine Ketones Negative (Negative); Urine Protein Trace mg/dL (Neg-Trace)
[2022-08-16 18:50] LABS: Alanine Aminotransferase 55 U/L (0-40); Alkaline Phosphatase 105 U/L (39-117); Anion Gap 11 (12-20); Aspartate Amino Transferase 27 U/L (5-37); Bilirubin Total 0.6 mg/dL (0.0-1.0); Blood Urea Nitrogen 9 mg/dL (9-16); Calcium 9.6 mg/dL (8.4-10.2); Carbon Dioxide 29 mmol/L (22-29); Chloride 102 mmol/L (96-108); Cholesterol 185 mg/dL; Estimated Glomerular Filt Rate > 60; Glucose Fasting 217 mg/dL (60-99); HDL Cholesterol 52 mg/dL; LDL Cholesterol Calculated 105 mg/dl; Potassium 4.4 mmol/L (3.3-5.1); Sodium 138 mmol/L (135-145); Total Protein 6.8 g/dL (6.5-8.0); Triglycerides 144 mg/dL
[2022-08-16 18:51] LABS: B Type Natriuretic Peptide 35 pg/mL (<100)
[2022-08-16 19:00] LABS: TSH reflex Free T4 2.49 uIU/mL (0.32-4.0); Vitamin D 25-OH Total 21.1 ng/mL (>30)
[2022-08-17 05:27] LABS: Hemoglobin A1c % > 14.0 %
== END 2022-08-16 16:53 | disposition home or self-care (01) ==
LOC: HO.LAB 16:52
PROVIDERS: PCP Internal Medicine; Visit Provider Internal Medicine
DX: I11.0 Hypertensive heart disease with heart failure (principal); I50.9 Heart failure, unspecified; E55.9 Vitamin D deficiency, unspecified; R30.0 Dysuria; E11.9 Type 2 diabetes mellitus without complications; E78.00 Pure hypercholesterolemia, unspecified
CPT/HCPCS: 36415; 80053; 80061; 81003; 82043; 82306; 83036; 83880; 84443; 85025

== ENCOUNTER 2022-09-25 15:11 | Outpatient (AMB) | payer OTHER, SELFPAY ==
--- NOTE | 2022-09-25 15:25 | MHC.AMDMED ---
Intake Intake Visit Reasons: DM Wine Sales Representative Required: No Accompanied by: Self / Same As Patient Allergies Penicillins [PENICILLINS] Allergy (Unknown, Verified 08/16/22 16:15) RASH HPI Comprehensive Diabetes Asmnt Most Recent Diabetes Results: Microalb/Creat Ratio 23.8 ug/mg cr 08/16/22 Cholesterol 185 mg/dL 08/16/22 HDL Cholesterol 52 mg/dL 08/16/22 Triglycerides 144 mg/dL 08/16/22 Creatinine 0.88 mg/dL (0.5-1.4) 08/16/22 Blood Urea Nitrogen 9 mg/dL (9-16) 08/16/22 Sodium 138 mmol/L (135-145) 08/16/22 Potassium 4.4 mmol/L (3.3-5.1) 08/16/22 Chloride 102 mmol/L (96-108) 08/16/22 Carbon Dioxide 29 mmol/L (22-29) 08/16/22 Calcium 9.6 mg/dL (8.4-10.2) 08/16/22 AST 27 U/L (5-37) 08/16/22 ALT 55 U/L (0-40) H 08/16/22 Total Protein 6.8 g/dL (6.5-8.0) 08/16/22 Albumin 4.0 g/dL (3.5-5.0) 08/16/22 [facility] Medical History Anxiety Arthritis Asthma Benign essential hypertension BPH (benign prostatic hyperplasia) Depression Diabetes Family history of thyroid disorder Insomnia Lumbar degenerative disc disease Morbid obesity with BMI of 40.0-44.9, adult Overactive bladder Paroxysmal atrial fibrillation with rapid ventricular response Polysubstance abuse Primary osteoarthritis of both knees Seizure Substance abuse Type 2 diabetes mellitus with hyperglycemia Surgical History No history of previous surgery Family History Father ETOH abuse Mother Diabetes Arthritis of knee Hypertension Other Mental health problem Substance abuse Social History Household Members: Family Household Members Other:: room Housing: House Housing Other:: Room Do you presently have visiting nurse or other home services: No Alcohol intake: current Alcohol intake frequency: does not drink Patient Tobacco Use Status: Never used Tobacco e-Cigarette/Vaping Use: Never Used Second Hand Smoke Exposure: No Substance Use Type: Heroin service: No Current occupational status: unemployed and disabled Cognitive needs: No Hearing needs: No Vision needs: No Assessment & Plan Assessment & Plan (1) Type 2 diabetes mellitus with hyperglycemia: Comment: Admitted for [facility] in July 2019 Code(s): E11.65 - Type 2 diabetes mellitus with hyperglycemia Qualifiers: Diabetes mellitus correction insulin use: without radial arm saw operator use Qualified Code(s): E11.65 - Type 2 diabetes mellitus with hyperglycemia Plan: Diabetes self-management education and support participation record Assessment/scale: 1= needs instructed? 2= needs review? 3= comprehend keep point? 4= demonstrates understanding/ competent? NC= Not Covered Topics Learning Objective: Initial visit Initial or post srvc Initial or post srvc Initial or post srvc Initial or post srvc Initial or post srvc Post srvc Comments Pre Edu-assessment/plan Outcome or reassess Outcome or reassess Outcome or reassess Outcome or reassess Outcome or reassess Outcome or reassess Diabetes pathophysiology 1 Healthy eating 1 Being active 1 Taking medication Monitoring glucose 1 Acute complication Chronic complicated 1 Lifestyle and healthy coping Diabetes distress in support ?Diabetes pathophysiology: ?Defined diabetes med identify own type of diabetes; list 3 options for treating diabetes Healthy eating: ?Described effect of type, amount and ?timing of food on blood glucose; list 3 methods for planning meal Being active: ?State effect of exercise on blood glucose level Taking medication: ?State effect of diabetes medications on diabetes; name diabetes medications taking, action and side effects Monitoring glucose: ?Identify recommended blood glucose targets and personal target Acute complication: ?List symptoms and treatment of hyper and hypoglycemia, DKA, sick day guidelines and guidelines for severe weather or situations of crisis and diabetes supply manage Chronic complication: ?To find the relationship of blood glucose levels to long-term complications of diabetes in screening and preventative measures Lifestyle and healthy coping: ?Described lifestyle and healthy coping strategies to rule out diabetes self-management Diabetes to stress and support: ?Recognize Diabetes to stress and be able to identified support options Learning objectives: The patient was provided with verbal and written education on the following topics as outlined below. The patient met all learning objectives and was able to verbalize understanding and provide teach back of education topics discussed . The patient was provided with the opportunity to ask questions and all questions were answered. Patient Assessment Assess patient education level/literacy/barriers Patient questions/concerns, patient reports he was diagnosed with diabetes in 2018, did not bring meter to today's visit Last A1c 08/16/2022 14% Discussed with patient using snap benefits with HIP program. Instructed patient he can use hip benefit at [employer], on Saturdays between 10 30 in 14:00 at [employer] Patient is currently taking Lantus 50 units daily Trulicity 1.5 mg weekly Metformin 1000 mg b.i.d. What is Diabetes? Pathophysiology How the body produces and uses insulin Identify type of DM Risk factors Signs of Diabetes Brief overview of Diabetes Management Monitoring blood sugar Following a meal plan Regular exercise Maintaining a healthy weight Taking medication as needed Members of the care team (PCP, RN, MA, RD, CDE, rn access) Blood glucose monitoring When/how often to test Target blood sugar ranges Patient did not bring meter to today's visit, discussed with patient use CGM, patient is not interested at this time Introduction to Nutrition Importance of healthy diet in managing DM Diet is personalized to individual preference Review patient?s regular diet/food preferences Who prepares meals/does food shopping/ Dining out?/ Barriers? How diet effects glucose Eating 3 balanced meals a day with small, healthy snacks between meals Review food groups Carbohydrates: What is a carbohydrate/Which food/food groups are considered carbohydrates Effect of carbohydrates on blood glucose Portion sizes Reading food labels Basic carb counting (if applicable per nursing assessment) Plate method Meal planning Recommendations: Follow plate method, consistent carbs and read nutritional labels. Smart Goal: Educational Materials: The patient was provided with the following written educational materials: Planning Healthy Meals Handout Patient Response to instructions: Comprehension of Instructions: Fair Readiness to make changes: Contemplation How confident they feel about making changes: Positive Patient Instructions: Incluir actividad diaria regular. ADA recomienda 30 minutos de ejercicio 5 d?as a la semana. P?rdida de peso, hable con el PCP o el cardi?logo antes de comenzar un nuevo plan. Mida el nivel de az?car en la gwendolyn seg?n las indicaciones; Ayuno y comida m?s reny de 2hpp. Observe las tendencias en los resultados. Utilice los resultados y eval?e c?mo los alimentos, la actividad f?crys y los medicamentos afectan los resultados de az?car en la gwendolyn. Lleve el gluc?metro o CGM a la pr?xima visita. Conocer los medicamentos para la diabetes, davies acci?n, los efectos secundarios, la eficacia, la toxicidad, la dosis prescrita, el momento y la frecuencia de administraci?n apropiados, el efecto de las dosis olvidadas y retrasadas y las instrucciones de almacenamiento, viaje y seguridad. Coding Level of Care Code Est Pt Level 1 (48410) Diagnoses Type 2 diabetes mellitus with hyperglycemia E11.65 Diabetes mellitus radial arm saw operator insulin use: without correction use
== END 2022-09-25 15:57 | disposition home or self-care (01) ==
PROVIDERS: PCP Internal Medicine; Visit Provider Registered Nurse Diabetes Educator
DX: E11.65 Type 2 diabetes mellitus with hyperglycemia (principal)

== ENCOUNTER → 2022-09-25 15:11 | Outpatient (BNVA) | payer OTHER, SELFPAY | PROVIDERS: Visit Provider Registered Nurse Diabetes Educator | DX: E11.65 Type 2 diabetes mellitus with hyperglycemia (principal) | CPT/HCPCS: 99211 ==

== ENCOUNTER 2022-12-15 15:35 | Outpatient (AMB) | payer OTHER, SELFPAY ==
[2022-12-15 15:47] VITALS: BP 162/80; PULSE 102; O2SAT 97; BMI 42.3
--- NOTE | 2022-12-15 15:47 | MHC.PC.OV ---
Vital Signs 12/15/22 15:47 Height 5 ft 11 in Weight 303 lb BMI 42.3 BP 162/80 H Blood Pressure Location Lt brachial Position Sitting Pulse 102 H Pulse Source Pulse Oximeter Pulse Oximetry (%) 97 Oxygen Delivery Method Room Air Intake Visit Reasons: DM, edema Firer Retort Required: No Accompanied by: Self / Same As Patient Allergies Penicillins [PENICILLINS] Allergy (Unknown, Verified 12/15/22 16:19) RASH Medication List - Last Reconciled 12/15/22 by Julio Carter MD albuterol sulfate 90 mcg/actuation (Ventolin HFA) 2 puffs PO Q8H PRN amlodipine 5 mg PO DAILY apixaban (Eliquis) 5 mg PO BID 30 days blood sugar diagnostic (FreeStyle Lite Strips) DIRECTED THREE TIMES A DAY blood-glucose meter (FreeStyle [place] Lite kit) As directed checks 4X day buspirone 30 mg PO TID cetirizine 10 mg PO DAILY PRN 90 days clotrimazole 1% 1 appl See Protocol topical BID [email or web address] As directed diclofenac sodium 1% (Voltaren Arthritis Pain) 2 grams topical QID PRN diltiazem HCl (Cardizem CD) 180 mg See Protocol PO DAILY doxycycline monohydrate 100 mg PO BID 10 days dulaglutide (Trulicity) 1.5 mg (0.5 mL) subcut QWEEK escitalopram oxalate 20 mg PO DAILY fluconazole (Diflucan) 100 mg PO DAILY furosemide (Lasix) 20 mg PO DAILY 15 days hydroxyzine HCl 25 mg PO TID PRN insulin glargine 50 units (0.5 mL) subcut BEDTIME lancets As directed lidocaine 5% 2 patches topical DAILY PRN lisinopril 30 mg PO DAILY metformin 1,000 mg PO BID metoprolol succinate ER 100 mg See Protocol PO DAILY pen needle, diabetic (BD Ultra-Fine Mini Pen Needle) USE DIRECTED ONCE DAILY pen needle, diabetic (BD Ultra-Fine Mini Pen Needle) USE DIRECTED ONCE DAILY quetiapine 50 mg PO BEDTIME tamsulosin 0.4 mg PO DAILY tramadol 50 mg PO TID PRN 30 days zolpidem 10 mg PO BEDTIME PRN 30 days Tobacco use date assessed: 12/15/22 Dental Screening Dental Screen Date: 12/15/22 Did you have a dental visit in the last 12 months?: Yes Did you have a dental problem in the last 6 months where you did not have access to dental care?: No Was dental information given to patient?: Patient has dentist HPI DM, edema HPI Details Patient comes in today for his follow up visit Admits that he has not taken his blood pressure medications for the past couple of days - cannot really say or explain why he has not taken his medications States that he thinks one of them ( the pink one ) needs to be refilled States that he has been experiencing a lot of pain over one of his right lower molars and is currently waiting for his dentist to schedule him for a dental extraction, hopefully soon Would like to see if he can get something for this in the meantime He denies any fever; has noticed some on and off headaches lately but denies any dizziness Denies any chest pains; still has on and off SOB and FISCHER - mild/chronic No nausea/vomiting, no abdominal pain No change in bowel habits noted PFSH Medical History Polysubstance abuse Paroxysmal atrial fibrillation with rapid ventricular response Lumbar degenerative disc disease Substance abuse Diabetes Depression Overactive bladder Arthritis BPH (benign prostatic hyperplasia) Asthma Seizure Morbid obesity with BMI of 40.0-44.9, adult Benign essential hypertension Insomnia Primary osteoarthritis of both knees Anxiety Family history of thyroid disorder Type 2 diabetes mellitus with hyperglycemia Surgical History No history of previous surgery Family History Father ETOH abuse Mother Diabetes Arthritis of knee Hypertension Other Mental health problem Substance abuse Social History Household Members: Family Household Members Other:: room Housing: House Housing Other:: Room Do you presently have visiting nurse or other home services: No Alcohol intake: current Alcohol intake frequency: does not drink Patient Tobacco Use Status: Never used Tobacco e-Cigarette/Vaping Use: Never Used Second Hand Smoke Exposure: No Substance Use Type: Heroin service: No Current occupational status: unemployed and disabled Cognitive needs: No Hearing needs: No Vision needs: No Questionnaire PHQ-9 Over the last 2 weeks, how often have you been bothered by any of the following problems? 1. Little interest or pleasure in doing things: several days 2. Feeling down, depressed, or hopeless: several days 3. Trouble falling or staying asleep, or sleeping too much: several days 4. Feeling tired or having little energy: several days 5. Poor appetite or overeating: several days 6. Feeling bad about yourself - or that you are a failure or have let yourself or your family down: several days 7. Trouble concentrating on things, such as reading the newspaper or watching television: not at all 8. Moving or speaking so slowly that other people could have noticed. Or the opposite - being so fidgety or restless that you have been moving around a lot more than usual: not at all 9. Thoughts that you would be better off or of hurting yourself in some way: not at all Total score: 6 Depression Screening Interpretation: Positive Depression Screening Follow-up: Existing condition and In treatment Depression Screening Done: Yes 79114 - PHQ-9 Billing: Yes Source: Developed by Drs. Michael Mcmanus, Penelope Pope, oCrnell Snyder and colleagues, with an educational natty from [employer]. Thrive Questionnaire Date Thrive assessed: 12/15/22 I am a: Patient What is your living situation today?: I have a steady place to live Within the past 12 months, did the food you bought not last and you didn't have the money to get more?: Never true Within the past 12 months, did you worry whether your food would run out before you got money to buy more?: Never true Do you have trouble paying for medicines?: No Do you have trouble getting transportation to medical appointments?: No Do you have trouble paying your heating and electricity bill?: No Do you have trouble taking care of your child, family member or friend?: No Do you have trouble with day-to-day activities such as bathing, preparing meals, shopping, managing finances, etc.?: No Are you currently unemployed and looking for a job?: No Are you interested in more education?: No Please select the resources that you would like help with: None Currently or been in a relationship where the following occur: no concerns reported AUDIT C Alcohol Use Questionnaire (AUDIT-C) 1. How often do you have a drink containing alcohol?: Monthly or less 2. How many drinks containing alcohol do you have on a typical day when you are drinking?: 1 or 2 3. How often do you have six or more drinks on one occasion?: Never Total Score: 1 Score Reviewed/Action Taken: Yes TODD-7 AMB Questionnaire TODD-7 Date TODD - 7 assessed: 12/15/22 Feeling nervous, anxious, or on edge: 0 = Not at all Not being able to stop or control worryin = Not at all Worrying too much about different things: 0 = Not at all Trouble relaxin = Not at all Being so restless that it is hard to sit still: 0 = Not at all Becoming easily annoyed or irritable: 0 = Not at all Feeling afraid as if something awful might happen: 0 = Not at all Total TODD-7 score (0-4 normal; 5-9 mild; 10-14 moderate; 15-21 severe): 0 Source: Developed by Drs. Michael Mcmanus, Penelope Pope, Cornell Snyder and colleagues, with an educational natty from [employer]. Review of Systems Const Denies chills, Reports fatigue, Denies fever(s) and Reports headache(s) (occasional lately) ENT Reports dental pain (over one of his right lower molars - thinks he has a tooth infection), Denies dysphagia, Denies dizziness, Denies otalgia, Reports headache(s) (occasional lately), Denies nasal congestion, Denies odynophagia and Denies sore throat Card Denies chest pain, Reports pedal edema (bilateral), Reports leg edema (bilateral), Denies palpitations and Reports dyspnea on exertion (mild) Resp Denies chest congestion, Denies cough, Reports dyspnea on exertion (mild) and Denies wheezing GI Denies abdominal pain, Denies constipation, Denies dysphagia, Denies heartburn, Denies diarrhea, Denies nausea, Denies odynophagia and Denies vomiting Reports difficulty urinating (unable to completely retract his foreskin), Denies dysuria, Denies nocturia and Denies urinary frequency Musc Reports back pain Skin/Breast Reports erythema (over the distal lower legs bilaterally) Neuro Denies dizziness and Reports headache(s) (occasional lately) Endo Reports fatigue and Denies palpitations Jose/Lymph Details: increasing swelling of both lower legs and feet Aller/Immun Denies wheezing Physical exam (Primary Care) Vital Signs: Last Vital Signs Pulse 102 H 12/15/22 15:47 BP 162/80 H 12/15/22 15:47 Pulse Ox 97 12/15/22 15:47 Oxygen Delivery Method Room Air 12/15/22 15:47 BMI result Body Mass Index 42.3 Tobacco/Smoking Status: Tobacco use Status Tobacco use date assessed 12/15/22 12/15/22 15:55 Patient Tobacco Use Status Never used Tobacco 12/15/22 15:55 e-Cigarette/Vaping Use Never Used 12/15/22 15:55 PHQ-9: PHQ-9 Score PHQ-9: Total score 6 12/15/22 16:39 Depression Screening Interpretation: Positive Depression Screening Follow-up: Existing condition and In treatment Thrive Assessment: Date of Thrive Assessment Date Thrive assessed 12/15/22 12/15/22 15:55 Currently or been in a relationship where the following occur: no concerns reported Const General: no acute distress and alert HENMT Other: (+) tenderness over the right lower jaw, involving the gum around one of his right lower molar Ears: TM's normal bilaterally and EAC's normal Teeth and gingiva: abnormal tooth and associated gingiva Throat: Yes posterior oropharynx normal and Yes tonsils normal (no TP congestion) Neck Neck: Yes no lymphadenopathy and Yes supple Resp Auscultation: clear to auscultation bilaterally, no rales and no wheezes Cardio Rate: regular rate Rhythm: regular rhythm Heart sounds: no murmurs GI Palpation (GI): Soft to palpation and nontender Penis: uncircumcised, non retractile foreskin and phimosis Scrotum: no scrotal swelling Testes: no testicular swelling Back/Spine/Pelvis Thoracic/Lumbar Spine: lumbar spinal tenderness Skin Other: (+) erythema of the distal half of both lower legs; skin over the erythema is slightly warm to touch Rashes: no rashes Extrem General: Yes edema (2+ bipedal edema) Assessment and Plan Assessment & Plan (1) Benign essential hypertension: Code(s): I10 - Essential (primary) hypertension Plan: Patient is cautioned that his blood pressure is currently very high and is advised that irregardless of how many blood pressure medications we put him on, they are not going to help IF he does not take his medications as prescribed regularly Have advised him to start back on his BP medications [facility] Reinforced low sodium diet - goal is systolic BP of at least 120 to 130 mm or less Continue Lisinopril 30 mg QD; he is also on Furosemide 20 mg QD (for his edema) and Metoprolol 100 mg BID and Diltiazem CD 180 mg QD (for atrial fibrillation) and advised that all of these should also help lower his BP but he has to be taking them everyday As he currently does not even know the name of his meds that he is running out of and not taking, will go ahead and refill all of his BP meds today and advised him to picker and sorter load and unload his meds at his pharmacy [facility] (2) Type 2 diabetes mellitus with hyperglycemia: Comment: Admitted for HNKC in July 2019 Code(s): E11.65 - Type 2 diabetes mellitus with hyperglycemia Qualifiers: Diabetes mellitus custodial insulin use: without custodial use Qualified Code(s): E11.65 - Type 2 diabetes mellitus with hyperglycemia Plan: Will have patient again get some follow up labs done [facility]; will include HgbA1c to reassess his current diabetes control HgbA1c was >14.0% when last checked in August 2022; reminded that his HgbA1c goal is at least <7.0% and that at his current numbers, he is completely out of control and he risk having a repeat of his HNKC and hospitalization that he had back in 2019 Reinforced diabetic diet Continue Lantus 50 units daily at bedtime, Trulicity 1.5 mg SQ once a week and Metformin 1000 mg BID Was seen by Dr. Shaver a few months ago and was referred for diabetic teaching first but patient missed his appointment back then; it also looks like he missed a couple of appts with Dr. Shaver over the past few months and have cautioned him that if he gets discharged for noncompliance, there is absolutely nothing anyone else can do to help him since he does not appear interested in helping himself, and that referring him to endocrinology outside of [place] will be longer to schedule and harder for him to get to, considering his past issues with transportation He is reminded that he has an appointment coming up in a couple of weeks on 12/26/22 with the diabetes coordinator and should ask her to get him rescheduled with Dr. Shaver as well [facility] (3) Paroxysmal atrial fibrillation with rapid ventricular response: Code(s): I48.0 - Paroxysmal atrial fibrillation Plan: Currently remains in sinus rhythm - states that he's had no recurrence of his symptoms since his brief hospitalization in October 2021, which was most likely triggered by his multiple drug use at the time Continue Metoprolol 100 mg BID and Diltiazem CD 180 mg QD Continue Eliquis 5 mg BID for thromboembolism prophylaxis Has been advised to see Cardiology as an outpatient for follow-up and has been referred multiple times but he has not yet seen cardiology Patient keeps citing transportation as the main issue for him but he has been advised that [employer] provides transportation as he just has to call them to schedule picker and sorter load and unload ahead of time - he has been advised of this in the past but he either has completely no interest or motivation at all to get these done - unclear at this point what can be done with him as he has been completely non-compliant at all with everything that we have asked him to do except for when something is actually bothering him like his phimosis issue recently (4) Phimosis: Code(s): N47.1 - Phimosis Plan: He has been referred to and is reminded of his appointment with urology for this in a few weeks (5) Lymphedema: Code(s): I89.0 - Lymphedema, not elsewhere classified Plan: Is reminded to try to keep his leg elevated as often as he can to help minimize his edema, and that losing weight will help with his swelling although at this time, there appears to be no realistic expectations for this to happen (6) Seizure: Code(s): R56.9 - Unspecified convulsions Plan: No seizure recurrence since his hospitalization back in July 2019 - was most likely brought on by his hyperosmolar coma EEG done at [facility] in July 2019 showed borderline abnormal results and recommended a 24 hour ambulatory EEG for further evaluation Follow up with neurology as scheduled/as needed - it also appears that he has not seen neurology at all in the past couple of years (7) Dental abscess: Code(s): K04.7 - Periapical abscess without sinus Plan: States that he is currently waiting for his dentist to schedule him an appointment for dental extraction Have advised patient that even if his dentist can get him in soon, they are not going to be able to do anything for him IF his blood pressure is uncontrolled so he should make an effort to start back on his BP meds and take them regularly as prescribed Will start him empirically for now on Bactrim DS 1 tablet BID x 7 days Reminded that he already has his Tramadol to take for pain and we are not going to start him on anything stronger than that; he can additionally take some Tylenol 500 mg up to 4 times a day for pain (8) Lumbar degenerative disc disease: Code(s): M51.36 - Other intervertebral disc degeneration, lumbar region Plan: Reinforced activity and weight-lifting restrictions Continue Tramadol 50 mg TID and Lidocaine patches 5% apply 2 patches QD PRN for pain Have offered to refer him to pain management for his back pain and knee pain in the past but patient declined He has also been advised a few times in the past when he asked for Rx that we will not start him on anything other than what he is currently on for pain, especially any opioid Rx, due to his known history of polysubstance abuse (9) Primary osteoarthritis of both knees: Code(s): M17.0 - Bilateral primary osteoarthritis of knee Plan: Continue Tramadol 50 mg TID PRN, Voltaren gel 1% apply PRN and Lidocaine 5% patches 2 patches QD PRN Has received cortisone injections into his knees from [facility] in the past with only slight relief Has apparently not followed up with orthopedics or with rheumatology in a while now - encouraged to call and reschedule his appointments with these specialists [facility] (10) Asthma: Code(s): J45.909 - Unspecified asthma, uncomplicated Qualifiers: Asthma severity: mild Asthma persistence: intermittent Asthma complication type: uncomplicated Qualified Code(s): J45.20 - Mild intermittent asthma, uncomplicated Plan: Stable - continue Albuterol HFA 2 inhalations every 6 hours as needed (11) BPH (benign prostatic hyperplasia): Code(s): N40.0 - Benign prostatic hyperplasia without lower urinary tract symptoms Qualifiers: Lower urinary tract symptom presence: symptoms present Lower urinary tract symptom detail: urinary frequency Qualified Code(s): N40.1 - Benign prostatic hyperplasia with lower urinary tract symptoms; R35.0 - Frequency of micturition Plan: Continue Tamsulosin 0.4 mg QD (12) Polysubstance abuse: Code(s): F19.10 - Other psychoactive substance abuse, uncomplicated Plan: Admitted previously to using some heroin but his UDS tested positive for opiates, fentanyl, cocaine and marijuana multiple times last year, most recently in February 2022 Did indicate that he want to see addiction medicine at the time but no appointment has been scheduled yet; he was referred to Addiction Medicine for further management but he has not scheduled any appointments so far He has been advised that we are also not going to continue refilling his Tramadol if he continues with his recreational drug use - claims that he has been clean for months now (13) Insomnia: Code(s): G47.00 - Insomnia, unspecified Qualifiers: Insomnia type: unspecified Qualified Code(s): G47.00 - Insomnia, unspecified Plan: Sleep hygiene reinforced Continue Zolpidem 10 mg QD PRN (14) Anxiety: Code(s): F41.9 - Anxiety disorder, unspecified Plan: Continue Buspirone 30 mg TID, Escitalopram 20 mg QD and Hydroxyzine 25 mg TID PRN Follow up with psychiatry as scheduled Is again unclear as to how compliant he is with these when he does not even take his blood pressure medications regularly and cannot even name his medications (15) Depression: Code(s): F32.9 - Major depressive disorder, single episode, unspecified Qualifiers: Depression Type: major depressive disorder Major depression recurrence: recurrent Active/Remission status: currently active Major depression episode severity: unspecified Qualified Code(s): F33.9 - Major depressive disorder, recurrent, unspecified Plan: Continue Escitalopram 20 mg QD and Quetiapine 50 mg Q HS Follow up with psychiatry as scheduled (16) Morbid obesity with BMI of 40.0-44.9, adult: Code(s): E66.01 - Morbid (severe) obesity due to excess calories; Z68.41 - Body mass index [BMI] 40.0-44.9, adult Plan: Reinforced diet; exercise and weight loss are unrealistic expectations with this patient given his overall situation and motivation Plan Follow up in 3 months Orders: Orders Comprehensive Independence. Panel Fast 12/15/22 E78.00 - Pure hypercholesterolemia, unspecified Lipid Panel 12/15/22 E78.00 - Pure hypercholesterolemia, unspecified Microalbumin, Random (w Creat) 12/15/22 E11.9 - Type 2 diabetes mellitus without complications UA CC w/rflx Micro + Cult 12/15/22 R30.0 - Dysuria Complete Blood Count Auto Diff 12/15/22 I10 - Essential (primary) hypertension Hemoglobin A1c 12/15/22 E11.9 - Type 2 diabetes mellitus without complications Vitamin D 25-OH Total 12/15/22 E55.9 - Vitamin D deficiency, unspecified TSH reflex Free T4 12/15/22 E78.00 - Pure hypercholesterolemia, unspecified Medications: New sulfamethoxazole-trimethoprim 800-160 mg (Bactrim DS) 1 tab PO BID 7 days 14 tabs 0RF blood pressure monitor As directed 1 ea 0RF I10 - Essential (primary) hypertension Changed From amlodipine 5 mg PO DAILY To amlodipine 5 mg PO DAILY 30 days 30 tabs 3RF Refilled lisinopril 30 mg PO DAILY 90 tabs 1RF diltiazem HCl (Cardizem CD) 180 mg See Protocol PO DAILY 30 caps 3RF metoprolol succinate ER 100 mg See Protocol PO DAILY 30 tabs 3RF Coding Level of Care Code Est Pt Level 4 (14898) Diagnoses Benign essential hypertension I10 Type 2 diabetes mellitus with hyperglycemia, without long-term current use of insulin E11.65 Diabetes mellitus oil heaterman insulin use: without oil heaterman use Paroxysmal atrial fibrillation with rapid ventricular response I48.0 Phimosis N47.1 Lymphedema I89.0 Seizure R56.9 Dental abscess K04.7 Lumbar degenerative disc disease M51.36 Primary osteoarthritis of both knees M17.0 Mild intermittent asthma without complication J45.20 Asthma severity: mild Asthma persistence: intermittent Asthma complication type: uncomplicated Benign prostatic hyperplasia with urinary frequency N40.1; R35.0 Lower urinary tract symptom presence: symptoms present Lower urinary tract symptom detail: urinary frequency Polysubstance abuse F19.10 Insomnia, unspecified type G47.00 Insomnia type: unspecified Anxiety F41.9 Episode of recurrent major depressive disorder, unspecified depression episode severity F33.9 Depression Type: major depressive disorder Major depression recurrence: recurrent Active/Remission status: currently active Major depression episode severity: unspecified Morbid obesity with BMI of 40.0-44.9, adult E66.01; Z68.41
== END 2022-12-15 16:31 | disposition home or self-care (01) ==
PROVIDERS: PCP Internal Medicine; Visit Provider Internal Medicine
DX: E11.65 Type 2 diabetes mellitus with hyperglycemia (principal); I48.0 Paroxysmal atrial fibrillation; I10 Essential (primary) hypertension; F33.9 Major depressive disorder, recurrent, unspecified
CPT/HCPCS: 99214

== ENCOUNTER 2023-01-22 19:55 | Inpatient (IN) | payer OTHER, SELFPAY ==
--- NOTE | ~2023-01-22 | US_ITS ---
EXAMINATION: US VENOUS ULTRASOUND WITH DOPPLER LOWER EXTREMITY, BILATERAL CLINICAL INFORMATION: Bilateral lower extremity swelling. COMPARISON: None available. TECHNIQUE: Ultrasound of the deep veins is performed from the hip to the calf with compression sonography and color and pulse Doppler assessment. Spectral analysis with color-flow imaging is performed. FINDINGS: RIGHT: There is normal venous compression and respiratory variation and augmented flow. The visualized common femoral vein, superficial femoral vein, profunda femoral vein, popliteal vein, and the trifurcation region shows no evidence of deep venous thrombosis. There is no significant popliteal fossa cyst. Prominent right inguinal lymph nodes are noted. LEFT: There is normal venous compression and respiratory variation and augmented flow. The visualized common femoral vein, superficial femoral vein, profunda femoral vein, popliteal vein, and the trifurcation region shows no evidence of deep venous thrombosis. There is no significant popliteal fossa cyst. Prominent left inguinal lymph nodes are noted. If the patient's symptoms persist, followup ultrasound in 5 days 7 days might be of value to exclude proximal propagation from a non-visualized calf vein. US/US venous duplex LE BI IMPRESSION: No DVT demonstrated in the bilateral lower extremities.
--- NOTE | ~2023-01-22 | XR_ITS ---
EXAMINATION: BILATERAL KNEES, BILATERAL ANKLES CLINICAL INFORMATION: Pain after a fall COMPARISON: Bilateral knees 05/15/2020, right ankle 01/05/2020 TECHNIQUE: 4 views each knee, 3 views each ankle FINDINGS: Right knee: Tricompartmental degenerative changes are present with most narrowing seen in the medial and patellofemoral compartment. A small joint effusion is present. No chondrocalcinosis No fractures or dislocations seen. Left knee: Tricompartmental degenerative changes are seen most marked in the lateral and patellofemoral compartment. Rounded bony density seen just above and lateral to the patella could represent a intra-articular osseous loose body. No chondrocalcinosis. A tiny joint effusion is present. No fractures or dislocations. Right ankle: There is bilateral soft tissue swelling. The ankle mortise appears stable. Tiny bony density seen at the tip of the medial malleolus does not appear acute. Mild degenerative change seen at the talonavicular joint. No acute fracture. Left ankle: There is bilateral soft tissue swelling. No fractures or dislocations. The ankle mortise appears stable. XR/XR knee RT 3V IMPRESSION: 1. No evidence of an acute traumatic osseous injury. 2. Bilateral tricompartmental degenerative changes in the knees. 3. Bilateral soft tissue swelling both ankles.
--- NOTE | ~2023-01-22 | XR_ITS ---
EXAMINATION: BILATERAL KNEES, BILATERAL ANKLES CLINICAL INFORMATION: Pain after a fall COMPARISON: Bilateral knees 05/15/2020, right ankle 01/05/2020 TECHNIQUE: 4 views each knee, 3 views each ankle FINDINGS: Right knee: Tricompartmental degenerative changes are present with most narrowing seen in the medial and patellofemoral compartment. A small joint effusion is present. No chondrocalcinosis No fractures or dislocations seen. Left knee: Tricompartmental degenerative changes are seen most marked in the lateral and patellofemoral compartment. Rounded bony density seen just above and lateral to the patella could represent a intra-articular osseous loose body. No chondrocalcinosis. A tiny joint effusion is present. No fractures or dislocations. Right ankle: There is bilateral soft tissue swelling. The ankle mortise appears stable. Tiny bony density seen at the tip of the medial malleolus does not appear acute. Mild degenerative change seen at the talonavicular joint. No acute fracture. Left ankle: There is bilateral soft tissue swelling. No fractures or dislocations. The ankle mortise appears stable. XR/XR ankle RT min 3V IMPRESSION: 1. No evidence of an acute traumatic osseous injury. 2. Bilateral tricompartmental degenerative changes in the knees. 3. Bilateral soft tissue swelling both ankles.
--- NOTE | ~2023-01-22 | XR_ITS ---
EXAMINATION: BILATERAL KNEES, BILATERAL ANKLES CLINICAL INFORMATION: Pain after a fall COMPARISON: Bilateral knees 05/15/2020, right ankle 01/05/2020 TECHNIQUE: 4 views each knee, 3 views each ankle FINDINGS: Right knee: Tricompartmental degenerative changes are present with most narrowing seen in the medial and patellofemoral compartment. A small joint effusion is present. No chondrocalcinosis No fractures or dislocations seen. Left knee: Tricompartmental degenerative changes are seen most marked in the lateral and patellofemoral compartment. Rounded bony density seen just above and lateral to the patella could represent a intra-articular osseous loose body. No chondrocalcinosis. A tiny joint effusion is present. No fractures or dislocations. Right ankle: There is bilateral soft tissue swelling. The ankle mortise appears stable. Tiny bony density seen at the tip of the medial malleolus does not appear acute. Mild degenerative change seen at the talonavicular joint. No acute fracture. Left ankle: There is bilateral soft tissue swelling. No fractures or dislocations. The ankle mortise appears stable. XR/XR knee LT 3V IMPRESSION: 1. No evidence of an acute traumatic osseous injury. 2. Bilateral tricompartmental degenerative changes in the knees. 3. Bilateral soft tissue swelling both ankles.
--- NOTE | ~2023-01-22 | XR_ITS ---
EXAMINATION: BILATERAL KNEES, BILATERAL ANKLES CLINICAL INFORMATION: Pain after a fall COMPARISON: Bilateral knees 05/15/2020, right ankle 01/05/2020 TECHNIQUE: 4 views each knee, 3 views each ankle FINDINGS: Right knee: Tricompartmental degenerative changes are present with most narrowing seen in the medial and patellofemoral compartment. A small joint effusion is present. No chondrocalcinosis No fractures or dislocations seen. Left knee: Tricompartmental degenerative changes are seen most marked in the lateral and patellofemoral compartment. Rounded bony density seen just above and lateral to the patella could represent a intra-articular osseous loose body. No chondrocalcinosis. A tiny joint effusion is present. No fractures or dislocations. Right ankle: There is bilateral soft tissue swelling. The ankle mortise appears stable. Tiny bony density seen at the tip of the medial malleolus does not appear acute. Mild degenerative change seen at the talonavicular joint. No acute fracture. Left ankle: There is bilateral soft tissue swelling. No fractures or dislocations. The ankle mortise appears stable. XR/XR ankle LT min 3V IMPRESSION: 1. No evidence of an acute traumatic osseous injury. 2. Bilateral tricompartmental degenerative changes in the knees. 3. Bilateral soft tissue swelling both ankles.
[2023-01-22 20:04] VITALS: BP 179/70; BP 180/80; PULSE 117; PULSE 94; RESP 18; TEMP 38.2; O2SAT 96; O2SAT 97; BMI 47.8
--- NOTE | 2023-01-22 20:13 | ED.GENADULT ---
HPI - General Adult General Chief complaint: Extremity Injury, Lower Stated complaint: BILATERAL ANKLE PAIN Time Seen by Provider: 01/22/23 22:48 Source: patient Mode of arrival: ambulatory Limitations: no limitations History of Present Illness HPI narrative: 52-year-old male history of diabetes presents to ED for bilateral knee and bilateral leg pain patient states he fell onto his knees and legs today. Patient denies hitting head or loss of consciousness. Patient states also increased swelling of bilateral lower extremities. Patient states no chest pain or shortness of breath. Patient denies any loss of consciousness Related Data Previous Rx's Medication Instructions Recorded lancets 28 gauge #100 ea 02/07/21 buspirone 30 mg tablet 30 mg PO TID #90 tabs 09/13/21 escitalopram oxalate 20 mg tablet 20 mg PO DAILY #30 tabs 12/05/21 [email or web address],xlrg #12 ea 01/12/22 blood-glucose meter (FreeStyle #1 ea 01/13/22 Corona Lite kit) albuterol sulfate 90 mcg/actuation 2 puff PO Q8H PRN for wheezing #18 03/26/22 aerosol inhaler (Ventolin HFA) ea insulin glargine 100 unit/mL (3 50 unit (0.5 mL) subcut BEDTIME 04/21/22 mL) subcutaneous pen #15 mL metformin 1,000 mg tablet 1,000 mg PO BID #180 tabs 07/10/22 blood sugar diagnostic (FreeStyle #100 strips 07/16/22 Lite Strips) pen needle, diabetic 31 gauge x ##50 08/15/2205/25 (BD Ultra-Fine Mini Pen Needle) apixaban 5 mg tablet (Eliquis) 5 mg PO BID 30 days #60 tabs 12/06/22 dulaglutide 1.5 mg/0.5 mL 1.5 mg (0.5 mL) subcut QWEEK #2 mL 12/06/22 subcutaneous pen injector ([facility]) lidocaine 5 % topical patch 2 patch topical DAILY PRN pain #60 12/06/22 ea pen needle, diabetic 31 gauge x #100 ea 12/06/22 3/16 (BD Ultra-Fine Mini Pen Needle) zolpidem 10 mg tablet 10 mg PO BEDTIME PRN insomnia 30 12/06/22 days #30 tabs amlodipine 5 mg tablet 5 mg PO DAILY 30 days #30 tabs 12/15/22 blood pressure monitor #1 ea 12/15/22 diltiazem HCl 180 mg 180 mg PO DAILY #30 caps 12/15/22 capsule,extended release 24 hr (Cardizem CD) lisinopril 30 mg tablet 30 mg PO DAILY #90 tabs 12/15/22 metoprolol succinate 100 mg 100 mg PO DAILY #30 tabs 12/15/22 tablet,extended release 24 hr tramadol 50 mg tablet 50 mg PO TID PRN pain 30 days #90 01/03/23 tabs diclofenac sodium 1 % topical gel 2 g topical QID PRN Pain #100 grams 01/08/23 (Voltaren Arthritis Pain) Allergies Allergy/AdvReac Type Severity Reaction Status Date / Time Penicillins [PENICILLINS] Allergy Unknown RASH Verified 12/15/22 16:19 Review of Systems Review of Systems: bilateral lower extremity pain bilateral knee pain. Fall Yes all other systems are reviewed and are negative PMFSH Past Medical History Medical History Polysubstance abuse Paroxysmal atrial fibrillation with rapid ventricular response Lumbar degenerative disc disease Substance abuse Diabetes Depression Overactive bladder Arthritis BPH (benign prostatic hyperplasia) Asthma Seizure Morbid obesity with BMI of 40.0-44.9, adult Benign essential hypertension Insomnia Primary osteoarthritis of both knees Anxiety Family history of thyroid disorder Type 2 diabetes mellitus with hyperglycemia Surgical History No history of previous surgery Family History Family History Father ETOH abuse Mother Diabetes Arthritis of knee Hypertension Other Mental health problem Substance abuse Social History Social History Household Members: Family Household Members Other:: room Housing: House Housing Other:: Room Do you presently have visiting nurse or other home services: No Alcohol intake: never Patient Tobacco Use Status: Never used Tobacco Smoked in Last 30 Days: No e-Cigarette/Vaping Use: Never Used Second Hand Smoke Exposure: No Use of substances other than those prescribed or required for medical reasons: No Substance Use Type: Heroin Any prior treatment program specific to substance use: No Advance Directives: Yes Advance Directives on File: Yes Advance Directives Date on File: 02/23/22 Nutrition Risks: No Nutritional Risk service: No Current occupational status: unemployed and disabled Cognitive needs: No Hearing needs: No Vision needs: No Physical Exam ED Vital Signs: Vital Signs - 24 hr 01/23/23 03:14 Temperature 100.3 F Pulse Rate 102 H Respiratory Rate 18 Blood Pressure 144/72 H Pulse Oximetry 96 Oxygen Delivery Method Room Air BMI result Body Mass Index 47.8 Const General: cooperative, healthy appearing, comfortable, no acute distress, well developed, alert, awake and Physically active Orientation/consciousness: oriented to person, oriented to place, oriented to time and patient oriented x3 HENMT Head: Yes normal to inspection, Yes No palpable skull fracture present, Yes normocephalic and Yes atraumatic Eyes General: appearance normal, both eyes and all related structures Neck Neck: Yes normal visual inspection, Yes full ROM, Yes no lymphadenopathy, Yes no meningeal signs, Yes trachea midline, Yes supple, No anterior neck swelling and No tender Chest Chest palpation & inspection: normal inspection of the chest and normal palpation of entire chest wall Resp Effort & Inspection: normal respiratory effort and able to speak in complete sentences Auscultation: clear to auscultation bilaterally Cardio Jugular venous distension: no JVD Heart sounds: S1 normal heart sound present and S2 normal heart sound present GI Inspection: Yes normal to inspection and No abdominal wall ecchymosis Palpation (GI): Soft to palpation, not firm, nontender, no guarding and not rigid General: Yes no CVA tenderness Back/Spine/Pelvis Back: no CVA tenderness and No back tenderness Skin General skin exam: no rashes or lesions noted, elasticity normal and turgor normal Neuro General: oriented to person, oriented to place, oriented to time, patient oriented x3, gait normal, tone normal, moves all extremities, Normal light touch and pain sensation, no meningeal signs, no focal motor deficits, CN's II-XI intact bilaterally and normal sensation to monofilament Extrem Other: positive for bilateral lower extremity warmth tenderness, and pitting edema on palpation Psych Appearance: grossly normal, well kempt and not disheveled Course Course Course Narrative: RME performed by Randi Florence PA-C. Patient is a 52 year old assigned male at presenting to the emergency department with bilateral ankle and bilateral knee pain. Patient states that a few days ago he tripped and hurt both ankles and both knees. EMS gave the patient 1,000mg of tylenol. Imaging ordered. Patient placed back in the waiting room pending room availability and results. Medications Administered Generic Name Dose Route Start Last Admin Trade Name Freq PRN Reason Stop Dose Admin Acetaminophen 650 mg 01/23/23 03:33 01/23/23 14:40 Acetaminophen 325 Mg Tablet PO 650 mg Q6H PRN Administration Pain, Mild (Pain Scale 1-3) Vancomycin HCl 1,250 mg/ 250 mls @ 166.667 mls/hr 01/23/23 13:00 01/23/23 16:02 Sodium Chloride IV Infused Q12H SCOTTY Infusion Insulin Glargine 40 unit 01/23/23 03:35 01/23/23 03:59 Insulin Glargine,Hum.Rec.Anlog 100 Unit/Ml 10 Ml Vial SUBCUT 40 unit BEDTIME SCOTTY Administration Insulin Human Lispro 0 unit 01/23/23 07:30 01/23/23 17:32 Insulin Lispro 100 Unit/Ml 3 Ml Vial SUBCUT 8 unit QIDACHS [facility] Administration Protocol Sodium Chloride 3 ml 01/23/23 08:00 01/23/23 17:34 0.9 % Sodium Chloride Flush 3 Ml Syringe IVFLUSH 3 ml QSHIFT [facility] Administration Discontinued Medications Generic Name Dose Route Start Last Admin Trade Name Freq PRN Reason Stop Dose Admin Sodium Chloride 1,000 mls @ 999 mls/hr 01/23/23 00:19 01/23/23 07:10 Ns IV 01/23/23 01:19 Infused .Q1H1M STA Infusion Vancomycin HCl 2,000 mg in 500 mls @ 250 mls/hr 01/23/23 00:19 01/23/23 07:10 Vancomycin/Ns IV 01/23/23 02:18 Infused ONCE ONE Infusion Quetiapine Fumarate 50 mg 01/23/23 03:42 01/23/23 03:59 Quetiapine Fumarate 50 Mg Tablet PO 01/23/23 03:43 50 mg ONCE ONE Administration Medical Decision Making Medical Decision Making MDM Narrative: 52-year-old male history of diabetes, substance abuse, and depression presents to ED for fall reading is bilateral knee and leg. Patient denies any head injury or loss of consciousness. Patient states no chest pain or abdominal pain. Patient states fall occurred today. Upon vital signs. Patient found to be febrile tachycardic. On examination of lower extremities bilateral legs are red warm to touch with pitting edema. Indicates cellulitis. Antibiotics IV fluids blood culture lactic ordered. Spoke with [facility] and patient to be admitted for cellulitits. Accepted by Dr. Burger Differential Diagnosis Differential Diagnoses: The differential diagnosis associated with the presentation includes (cellulitis, DVT, osteomylitlis, ) Consult Healthcare Provider Management of the patient was discussed with: Hospitalist (Dr. Burger) Lab Data MDM Lab Attestation statement: I reviewed the patient's lab results. 01/23/23 05:05 01/23/23 05:05 Labs: Lab Results 01/23/23 01/23/23 Range/Units 01:02 03:01 WBC 15.6 H (4.8-10.8) X10*3/uL RBC 4.34 L (4.60-5.80) X10*6/uL Hgb 12.7 L (14.0-18.0) g/dl Hct 37.8 L (42.0-52.0) % MCV 87.1 (80.0-98.0) fL MCH 29.3 (27.0-33.0) pg MCHC 33.6 (31.0-36.0) g/dl RDW 12.6 (11.0-16.0) % Plt Count 252 (160-400) X10*3/uL MPV 10.5 (9.4-12.4) fL Immature Gran % (Auto) 0.4 (0.0-0.4) % Neut % (Auto) 79.0 H (45-73) % Lymph % (Auto) 12.1 L (20-40) % [place] % (Auto) 7.9 (2-11) % Eos % (Auto) 0.4 (0-4) % Baso % (Auto) 0.2 (0-2) % Lymph # (Auto) 1.9 (1.2-4.9) X10*3/uL [place] # (Auto) 1.2 (0.1-1.2) X10*3/uL Eos # (Auto) 0.1 (0.0-0.4) X10*3/uL Baso # (Auto) 0.0 (0.0-0.2) X10*3/uL Abs Immat Gran (auto) 0.07 H (0.00-0.03) X10*3/uL Absolute Neuts (auto) 12.3 H (2.0-8.3) x10*3/uL Absolute Nucleated RBC 0.000 (0.0-0.012) X10*3/uL Nucleated RBC % (auto) 0.0 (0.0-0.2) /100WBC ESR 54 H (0-15) MM/HR Sodium 137 (135-145) mmol/L Potassium 3.8 (3.3-5.1) mmol/L Chloride 103 (96-108) mmol/L Carbon Dioxide 26 (22-29) mmol/L Anion Gap 12 (12-20) BUN 11 (9-16) mg/dL Creatinine 0.95 (0.5-1.4) mg/dL Estim Creat Clear Calc 129.1 Estimated GFR > 60 Random Glucose 283 H (60-115) mg/dL Lactic Acid 1.6 (0.5-2.0) mmol/L Calcium 9.0 D (8.4-10.2) mg/dL Total Bilirubin 0.4 (0.0-1.0) mg/dL AST 16 (5-37) U/L ALT 14 (0-40) U/L Alkaline Phosphatase 84 (39-117) U/L C-Reactive Protein 25.55 H (< or = 0.50) mg/dL Total Protein 7.0 (6.5-8.0) g/dL Albumin 3.7 (3.5-5.0) g/dL Influenza Type A (PCR) NEGATIVE (Negative) Influenza Type B (PCR) NEGATIVE (Negative) RSV RNA Qual (PCR) NEGATIVE (Negative) SARS-CoV-2 RNA (RT-PCR) NEGATIVE (Negative) Independent Interpretation I performed an independent interpretation of an: Plain X-Ray Radiology Impression Discussion of test interpretation with radiology: I have reviewed the radiologist's reading. External Record Review External record reviewed: Other (Prior visits) Prescription Management I considered prescription management with: Antibiotic Chronic Conditions Patient?s care impacted by: Diabetes Discharge Plan Discharge Clinical Impression: Cellulitis Patient Disposition: Admitted As Inpatient
[2023-01-23] VITALS (9 sets, daily range): BP systolic 119–168; BP diastolic 69–76; PULSE 96–102; RESP 14–20; TEMP 37.2–37.9; O2SAT 95–100; BMI 47.8
[2023-01-23 01:08] LABS: MANUAL DIFF FLAG NO
[2023-01-23 01:09] LABS: Basophils Percent Auto 0.2 % (0-2); Eosinophils Absolute Auto 0.1 X10*3/uL (0.0-0.4); Eosinophils Percent Auto 0.4 % (0-4); Hematocrit 37.8 % (42.0-52.0); Hemoglobin 12.7 g/dl (14.0-18.0); Imm Gran Abs Auto 0.07 X10*3/uL (0.00-0.03); Imm Gran Pct Auto 0.4 % (0.0-0.4); Lymphocytes Absolute Auto 1.9 X10*3/uL (1.2-4.9); Lymphocytes Percent Auto 12.1 % (20-40); Mean Corpuscular HGB Conc 33.6 g/dl (31.0-36.0); Mean Corpuscular Hemoglobin 29.3 pg (27.0-33.0); Mean Corpuscular Volume 87.1 fL (80.0-98.0); Mean Platelet Volume 10.5 fL (9.4-12.4); Monocytes Absolute Auto 1.2 X10*3/uL (0.1-1.2); Monocytes Percent Auto 7.9 % (2-11); Neutrophils Absolute Auto 12.3 x10*3/uL (2.0-8.3); Platelet Count 252 X10*3/uL (160-400); Red Blood Count 4.34 X10*6/uL (4.60-5.80); Red Cell Distribution Width 12.6 % (11.0-16.0); White Blood Count 15.6 X10*3/uL (4.8-10.8)
[2023-01-23] MEDS: vancomycin/NS 2,000 MG/500 ML PLAST..BAG 250 MG IV (01:12)
[2023-01-23] MEDS: 0.9 % Sodium Chloride 1,000 ML 999 ML IV (01:12)
[2023-01-23 01:41] LABS: Erythrocyte Sedimentation Rate 54 MM/HR (0-15)
[2023-01-23 03:18] LABS: Lactic Acid 1.6 mmol/L (0.5-2.0)
[2023-01-23 03:23] LABS: Alanine Aminotransferase 14 U/L (0-40); Albumin Level 3.7 g/dL (3.5-5.0); Alkaline Phosphatase 84 U/L (39-117); Anion Gap 12 (12-20); Aspartate Amino Transferase 16 U/L (5-37); Bilirubin Total 0.4 mg/dL (0.0-1.0); Blood Urea Nitrogen 11 mg/dL (9-16); C Reactive Protein 25.55 mg/dL (< or = 0.50); Carbon Dioxide 26 mmol/L (22-29); Chloride 103 mmol/L (96-108); Creatinine Clr Calc Pharmacy 129.1; Estimated Glomerular Filt Rate > 60; Glucose Random 283 mg/dL (60-115); Potassium 3.8 mmol/L (3.3-5.1); Sodium 137 mmol/L (135-145)
--- NOTE | 2023-01-23 03:35 | PM.IMHP ---
History of Present Illness Date of Service: 01/23/23 Chief Complaint: Extremity infection This is a 52-year-old male with pertinent history of paroxysmal atrial fibrillation on Eliquis, essential hypertension, insulin-dependent diabetes mellitus, mood disorder who presents to the emergency department for evaluation of bilateral leg pain, warmth, swelling and redness. Patient states he had a mechanical fall about 2 days prior to presentation. He hurt both his ankles. Since the fall, patient states his legs have been progressively swollen, red and warm. He has been having pain with ambulation. Also admits fevers and chills. Does have a history of cellulitis. No chest discomfort, palpitations, cough, shortness of breath, nausea, vomiting, changes in urinary or bowel habits. Patient admits that he is not compliant with his home p.o. medications In the emergency department, patient was found to be septic and initiated on empiric IV antibiotics Review of Systems Constitutional: Constitutional: Reports chills, Reports fatigue, Reports fever(s) and Reports lethargy Cardiovascular: Cardiovascular: Reports no additional cardiovascular complaints Respiratory: Respiratory: Reports no additional respiratory complaints Gastrointestinal: Gastrointestinal: Reports no additional gastrointestinal complaints Genitourinary: Genitourinary: Reports no additional male genitourinary complaints Endocrine: Endocrine: Reports fatigue PMFSH Medical History Polysubstance abuse Paroxysmal atrial fibrillation with rapid ventricular response Lumbar degenerative disc disease Substance abuse Diabetes Depression Overactive bladder Arthritis BPH (benign prostatic hyperplasia) Asthma Seizure Morbid obesity with BMI of 40.0-44.9, adult Benign essential hypertension Insomnia Primary osteoarthritis of both knees Anxiety Family history of thyroid disorder Type 2 diabetes mellitus with hyperglycemia Family History Father ETOH abuse Mother Diabetes Arthritis of knee Hypertension Other Mental health problem Substance abuse Surgical History No history of previous surgery Social History Household Members: Family Household Members Other:: room Housing: House Housing Other:: Room Do you presently have visiting nurse or other home services: No Alcohol intake: current Alcohol intake frequency: does not drink Patient Tobacco Use Status: Never used Tobacco e-Cigarette/Vaping Use: Never Used Second Hand Smoke Exposure: No Substance Use Type: Heroin Advance Directives: Yes Advance Directives on File: Yes Advance Directives Date on File: 02/23/22 service: No Current occupational status: unemployed and disabled Cognitive needs: No Hearing needs: No Vision needs: No Meds Allergies Allergy/AdvReac Type Severity Reaction Status Date / Time Penicillins [PENICILLINS] Allergy Unknown RASH Verified 12/15/22 16:19 Active Medications: Current Medications Pharmacy Consult (Consult Rx Vancomycin Dosing) 1 each MISCELLANE DAILY PRN PRN Reason: Consult order Sodium Chloride (0.9 % Sodium Chloride Flush 3 Ml Syringe) 3 ml IVFLUSH QSHIFT [facility] Physical Exam Vital Signs and Narrative: Vital Signs: Last Vital Signs Temp 100.3 F 01/23/23 03:14 Pulse 102 H 01/23/23 03:14 Resp 18 01/23/23 03:14 BP 144/72 H 01/23/23 03:14 Pulse Ox 96 01/23/23 03:14 O2 Del Method Room Air 01/23/23 03:14 BMI result Body Mass Index 47.8 Middle-aged male lying in bed in no distress Neck supple, no JVD Irregularly irregular, S1-S2 heard Regular breath sounds bilaterally, no wheezing or crackles appreciated Abdomen soft nontender, no guarding, no rigidity Patient is awake, alert and oriented to self, place, time and person ; no focal motor deficit Musculoskeletal: Bilateral lower extremities with swelling, erythema and warmth Psych: Normal mood No pedal edema Results Labs 01/23/23 01:02 01/23/23 03:01 Labs: Laboratory Results - last 24 hr 01/23/23 01/23/23 01:02 03:01 MCV 87.1 MCH 29.3 MCHC 33.6 RDW 12.6 Plt Count 252 MPV 10.5 Immature Gran % (Auto) 0.4 Neut % (Auto) 79.0 H Lymph % (Auto) 12.1 L Hickman % (Auto) 7.9 Eos % (Auto) 0.4 Baso % (Auto) 0.2 Lymph # (Auto) 1.9 Hickman # (Auto) 1.2 Eos # (Auto) 0.1 Baso # (Auto) 0.0 Abs Immat Gran (auto) 0.07 H Absolute Neuts (auto) 12.3 H Absolute Nucleated RBC 0.000 Nucleated RBC % (auto) 0.0 ESR 54 H Anion Gap 12 Estim Creat Clear Calc 129.1 Estimated GFR > 60 Random Glucose 283 H Lactic Acid 1.6 Calcium 9.0 D Total Bilirubin 0.4 AST 16 ALT 14 Alkaline Phosphatase 84 C-Reactive Protein 25.55 H Total Protein 7.0 Albumin 3.7 Imaging Radiologist's Impressions: Impressions Ankle X-Ray 01/22/23 21:05 IMPRESSION: 1. No evidence of an acute traumatic osseous injury. 2. Bilateral tricompartmental degenerative changes in the knees. 3. Bilateral soft tissue swelling both ankles. Ankle X-Ray 01/22/23 21:05 IMPRESSION: 1. No evidence of an acute traumatic osseous injury. 2. Bilateral tricompartmental degenerative changes in the knees. 3. Bilateral soft tissue swelling both ankles. Knee X-Ray 01/22/23 21:05 IMPRESSION: 1. No evidence of an acute traumatic osseous injury. 2. Bilateral tricompartmental degenerative changes in the knees. 3. Bilateral soft tissue swelling both ankles. Knee X-Ray 01/22/23 21:05 IMPRESSION: 1. No evidence of an acute traumatic osseous injury. 2. Bilateral tricompartmental degenerative changes in the knees. 3. Bilateral soft tissue swelling both ankles. Venous Duplex 01/23/23 02:45 IMPRESSION: No DVT demonstrated in the bilateral lower extremities. Assessment and Plan (1) Cellulitis: Status: Acute Plan This is a 52-year-old male with pertinent history of paroxysmal atrial fibrillation on Eliquis, essential hypertension, insulin-dependent diabetes mellitus, mood disorder who presents to the emergency department for evaluation of bilateral leg pain, warmth, swelling and redness. #. Sepsis due to lower extremity cellulitis: Resuscitated with IV crystalloids. Initiating empiric IV antibiotics. Lactic acid and blood culture obtained #. Insulin-dependent diabetes mellitus with hyperglycemia: Initiating basal plus insulin regimen #. Paroxysmal atrial fibrillation: On Eliquis. Rate controlled the ER. #. Essential hypertension: Continue home antihypertensives #. Mood disorder: Continue home mood stabilizers #. History of poly substance use disorder: UDS pending Med rec pending DVT prophylaxis: Eliquis Admit as inpatient and will require two night minimum hospital stay for IV antibiotics (as above), which is not possible in a lesser acute setting. Quality Stroke Does the patient have a stroke diagnosis?: No VTE Prior VTE?: No VTE Risk Level:: Medical - moderate - high VTE Device Contraindication: Treatment Not Indicated VTE Drug Contraindication: N/A - Med Ordered
[2023-01-23 03:44] LABS: Influenza A PCR NEGATIVE (Negative); Influenza B PCR NEGATIVE (Negative); Resp Syncy Virus RNA Qual PCR NEGATIVE (Negative); SARS COV2 PCR INHOUSE NEGATIVE (Negative)
[2023-01-23] MEDS: Insulin Glargine,Hum.rec.anlog 100 UNIT/ML 10 ML VIAL 40 UNIT SUBCUT ×2 (03:59→21:40)
[2023-01-23] MEDS: QUEtiapine Fumarate 50 MG TABLET PO (03:59)
[2023-01-23 05:29] LABS: Amphetamine Screen Urine Not Detected (Not Detect); Barbiturates, Urine Not Detected (Not Detect); Benzodiazepines Screen Urine Not Detected (Not Detect); Cannabinoid Screen Urine POSITIVE (Not Detect); Cocaine Screen Urine Not Detected (Not Detect); Fentanyl, urine POSITIVE (Not Detect); Opiate Screen Urine POSITIVE (Not Detect); Phencyclidine Screen Urine Not Detected (Not Detect)
[2023-01-23 06:05] LABS: MANUAL DIFF FLAG NO
[2023-01-23 06:09] LABS: Basophils Percent Auto 0.2 % (0-2); Eosinophils Absolute Auto 0.1 X10*3/uL (0.0-0.4); Eosinophils Percent Auto 0.7 % (0-4); Hematocrit 32.7 % (42.0-52.0); Hemoglobin 10.9 g/dl (14.0-18.0); Imm Gran Abs Auto 0.05 X10*3/uL (0.00-0.03); Imm Gran Pct Auto 0.4 % (0.0-0.4); Lymphocytes Absolute Auto 1.4 X10*3/uL (1.2-4.9); Lymphocytes Percent Auto 11.8 % (20-40); Mean Corpuscular HGB Conc 33.3 g/dl (31.0-36.0); Mean Corpuscular Hemoglobin 29.5 pg (27.0-33.0); Mean Corpuscular Volume 88.6 fL (80.0-98.0); Mean Platelet Volume 11.1 fL (9.4-12.4); Monocytes Absolute Auto 0.9 X10*3/uL (0.1-1.2); Monocytes Percent Auto 7.9 % (2-11); Neutrophils Absolute Auto 9.2 x10*3/uL (2.0-8.3); Platelet Count 212 X10*3/uL (160-400); Red Blood Count 3.69 X10*6/uL (4.60-5.80); Red Cell Distribution Width 12.7 % (11.0-16.0); White Blood Count 11.6 X10*3/uL (4.8-10.8)
[2023-01-23 06:22] LABS: Anion Gap 11 (12-20); Blood Urea Nitrogen 11 mg/dL (9-16); Calcium 8.5 mg/dL (8.4-10.2); Carbon Dioxide 26 mmol/L (22-29); Chloride 103 mmol/L (96-108); Creatinine Clr Calc Pharmacy 123.8; Estimated Glomerular Filt Rate > 60; Glucose Random 327 mg/dL (60-115); Potassium 3.6 mmol/L (3.3-5.1); Sodium 136 mmol/L (135-145)
[2023-01-23 07:07] LABS: Glucose, Whole Blood 249 mg/dL (60-115)
[2023-01-23] MEDS: Insulin Lispro 100 UNIT/ML 3 ML VIAL SUBCUT ×4 (07:09→21:40)
[2023-01-23] MEDS: 0.9 % Sodium Chloride Flush 3 ML SYRINGE IVFLUSH ×3 (07:10→21:41)
--- NOTE | 2023-01-23 07:15 | PC.NURSE ---
pt is quite drowsy but awakens quickly, respirations even and unlabored, pt's pupils pin point, pt does admit to using heroin and marijuana but last use was on Sunday, pt bilateral lower extremities extremely swollen/red/glossy in appearance and tender swelling and redness almost all the way up to the knees, pain at 10/10. vs stable
--- NOTE | 2023-01-23 07:24 | PHA.PROG ---
Admission Date/Time: January 23, 2023 03:33 Indication: SEPSIS Weight in k.7 kg Adjusted body weight in K.12 [place] body weight in K.4 Obesity Dosing Indication % IBW: 47.8 Serum Creatinine - Last 168 Hours 01/23/23 01/23/23 03:01 05:05 Creatinine 0.95 0.99 Estimated CrCl and GFR - Last 168 Hours 01/23/23 01/23/23 03:01 05:05 Estim Creat Clear Calc 129.1 123.8 Estimated GFR > 60 > 60 Vancomycin Loading Dose: 2000 MG Current Vancomycin Dosing Regimen: 1250 Q12H Vancomycin Monitoring using AUC goal of 400 - 600 range with trough as surrogate marker: 477/14.2 Date and Time for next Vancomycin Level to be drawn: 01/24/23 @1100 Pharmacist Comments on Vancomycin Plan: PT IS MORBIDLY OBESE. USED REGULAR ADULT MODIFIED GOTI MODEL FOR INITIAL DOSING. CHANGE TO OBESE MODEL IN INSIGHT ONCE FIRST TROUGH COMES IN. Vancomycin dosing will take advantage of [facility] as a clinical decision support tool that uses Bayesian modeling to calculate individual patient's pharmacokinetic parameters and forecast the patient's drug concentration time course with the target goal AUC 24 range of 400 - 600 mg/L/hr.
--- NOTE | 2023-01-23 07:35 | PHA.MEDREC ---
Pharmacy Consult ? Medication Reconciliation Pharmacy has reviewed the medication reconciliation.
[2023-01-23 11:00] LABS: Glucose, Whole Blood 324 mg/dL (60-115)
--- NOTE | 2023-01-23 12:57 | PM.EVENT ---
Event Note Date of Service: 01/23/23 Event Note: This is a 52-year-old male with pertinent history of paroxysmal atrial fibrillation on Eliquis, essential hypertension, insulin-dependent diabetes mellitus, mood disorder who presents to the emergency department for evaluation of bilateral leg pain, warmth, swelling and redness. Sepsis due to lower extremity cellulitis Resuscitated with IV crystalloids. continue vancomycin ID consult pending neg venous doppler for DVT bilat Insulin-dependent diabetes mellitus with hyperglycemia ss, ada diet Paroxysmal atrial fibrillation On Eliquis. Rate controlled Essential hypertension Continue home antihypertensives Mood disorder Continue home mood stabilizers History of poly substance use disorder UDS pending DVT prophylaxis: Tamia Attending Dr. Mares Admit as inpatient and will require two night minimum hospital stay for IV antibiotics (as above), which is not possible in a lesser acute setting. Time Spent With Patient Time: Total time managing care of this patient today ____ minutes.
[2023-01-23] MEDS: vancomycin HCL 1,250 MG in 0.9 % Sodium Chloride 250 ML 166.67 MG IV (14:25)
[2023-01-23] MEDS: Acetaminophen 325 MG TABLET 650 MG PO ×2 (14:40→21:45)
--- NOTE | 2023-01-23 14:57 | MHC.CM.PN ---
Met with patient in regards to discharge planning. Patient rents a room, ambulates with a cane and had no services prior to coming to the hospital. No services anticiapted to be needed because patient is not homebound. PCP verified. Copy of HCP verified to be on file. Patient has not received any Covid vaccines. Patient may need the C shuttle at d/c. Continue to monitor for d/c needs.
--- NOTE | 2023-01-23 15:29 | MHC.EDTECH ---
Emptied patients urinal and brought a pudding and milk.
[2023-01-23 16:51] LABS: Glucose, Whole Blood 327 mg/dL (60-115)
[2023-01-23 18:57] LABS: Glucose, Whole Blood 307 mg/dL (60-115)
--- NOTE | 2023-01-23 19:33 | PC.NURSE ---
pt brought over from ED. it was reported from ED RN that pt consumed dinner. pt immediately asking for other pt's left overs to eat. pt was told no and it was also noted the pt's blood sugar to be elevated in the 300s at change of shift. will notify provider. pt also went over to OF Bed 9 while this RN was washing up OF Bed 8 and asked both the pt and the sitter for money. pt currently resting in bed watching tv. rr even/unlabored. plan of care ongoing. report given to ALTAGRACIA Ruiz.
[2023-01-23 21:04] LABS: Glucose, Whole Blood 315 mg/dL (60-115)
[2023-01-23] MEDS: Melatonin 3 MG TABLET 6 MG PO (21:41)
[2023-01-24] MEDS: vancomycin HCL 1,250 MG in 0.9 % Sodium Chloride 250 ML 166.67 MG IV (00:16)
[2023-01-24 00:30] LABS: Glucose, Whole Blood 253 mg/dL (60-115)
--- NOTE | 2023-01-24 03:43 | PC.NURSE ---
pt came up from ED overflow with starving. he requested many sandwiches and juices. provided one at a time. chicken sandwich with diet joie taj at 21:00 and turkey sandwich with water at 00:30. the POC was 315 at 21:00, 253 at 00:25. given insulin and lantus per MAR. throughout the night, afew times urinated in the urinal. most night slept. provided once tylenol 650 mg. per hourly rounding, pt comfortably sleeping. will cont. to monitor to any changes.
[2023-01-24 04:00] VITALS: BP 127/82; PULSE 95; RESP 16; TEMP 36.1; O2SAT 98
[2023-01-24 06:30] LABS: Creatinine Clr Calc Pharmacy 140.9; Estimated Glomerular Filt Rate > 60
[2023-01-24 07:31] LABS: Estimated Average Glucose 217 mg/dL; Hemoglobin A1c % 9.2 % (<6.0)
[2023-01-24 07:37] VITALS: BP 131/69; PULSE 86; RESP 17; TEMP 36; O2SAT 98
[2023-01-24 07:39] LABS: Glucose, Whole Blood 259 mg/dL (60-115)
[2023-01-24] MEDS: busPIRone HCl 10 MG TABLET 30 MG PO ×3 (08:05→22:49)
[2023-01-24] MEDS: lisinopriL 10 MG TABLET 30 MG PO (08:05)
[2023-01-24] MEDS: Apixaban 5 MG TABLET PO ×2 (08:06→22:50)
[2023-01-24] MEDS: Metoprolol Succinate ER 100 MG TAB.ER.24H PO (08:06)
[2023-01-24] MEDS: Escitalopram Oxalate 20 MG TABLET PO (08:06)
[2023-01-24] MEDS: Insulin Lispro 100 UNIT/ML 3 ML VIAL SUBCUT ×7 (08:06→22:52)
[2023-01-24] MEDS: amLODIPine Besylate 5 MG TABLET PO (08:06)
[2023-01-24] MEDS: dilTIAZem HCL CD 180 MG CAP.ER.24H PO (08:06)
[2023-01-24] MEDS: 0.9 % Sodium Chloride Flush 3 ML SYRINGE IVFLUSH ×3 (08:07→22:59)
--- NOTE | 2023-01-24 10:22 | HO.PM.IMPN ---
Subjective Subjective Date of Service: 01/24/23 Review of Systems Follow-up lower extremity cellulitis Patient feeling better but still with swelling Out of bed ambulating with walker Physical Exam Vital Signs: Vital Signs: Last Vital Signs Temp 96.8 F 01/24/23 07:37 Pulse 86 01/24/23 07:37 Resp 17 01/24/23 07:37 BP 131/69 01/24/23 07:37 Pulse Ox 98 01/24/23 07:37 O2 Del Method Room Air 01/24/23 07:37 BMI result Body Mass Index 47.8 Appearing in no acute distress lung sounds are clear to auscultation heart regular rate rhythm, clear S1, S2 positive bowel sounds, abdomen is soft, nontender neuro patient is alert x3, no focal deficits Bilateral lower extremity erythema, improving with edema 01/24/23 01/23/23 Objective Data Active Medications Acetaminophen (Acetaminophen 325 Mg Tablet) 650 mg PO Q6H PRN PRN Reason: Pain, Mild (Pain Scale 1-3) Last Admin: 01/23/23 21:45 Dose: 650 mg Documented By: BILL Albuterol Sulfate (Albuterol Sulfate 90 Mcg 8 Gm Inhaler) 2 puff INHALE Q8H PRN PRN Reason: for wheezing Amlodipine Besylate (Amlodipine Besylate 5 Mg Tablet) 5 mg PO DAILY [facility]; Protocol Last Admin: 01/24/23 08:06 Dose: 5 mg Documented By: DESIREE Apixaban (Apixaban 5 Mg Tablet) 5 mg PO BID [facility] Last Admin: 01/24/23 08:06 Dose: 5 mg Documented By: DESIREE Buspirone HCl (Buspirone Hcl 10 Mg Tablet) 30 mg PO TID [facility] Last Admin: 01/24/23 08:05 Dose: 30 mg Documented By: DESIREE Dextrose (Dextrose 50 % 25 Gm/50 Ml Syringe) 25 gm IVPUSH Q15M PRN; Protocol PRN Reason: per Hypoglycemia Standing Ord. Diltiazem HCl (Diltiazem Hcl Cd 180 Mg Cap.Er.24h) 180 mg PO DAILY [facility]; Protocol Last Admin: 01/24/23 08:06 Dose: 180 mg Documented By: DESIREE Escitalopram Oxalate (Escitalopram Oxalate 20 Mg Tablet) 20 mg PO DAILY [facility] Last Admin: 01/24/23 08:06 Dose: 20 mg Documented By: DESIREE Glucose (Glucose Gel 15 Gm Gel..Gram.) 15 gm PO Q15M PRN; Protocol PRN Reason: per Hypoglycemia Standing Ord. Vancomycin HCl 1,250 mg/ (Sodium Chloride) 250 mls @ 166.667 mls/hr IV Q12H [facility] Last Infusion: 01/24/23 01:50 Dose: Infused Documented By: BILL Insulin Glargine (Insulin Glargine,Hum.Rec.Anlog 100 Unit/Ml 10 Ml Vial) 40 unit SUBCUT BEDTIME [facility] Last Admin: 01/23/23 21:40 Dose: 40 unit Documented By: BILL Insulin Glargine (Insulin Glargine,Hum.Rec.Anlog 100 Unit/Ml 10 Ml Vial) 50 unit SUBCUT BEDTIME [facility] Insulin Human Lispro (Insulin Lispro 100 Unit/Ml 3 Ml Vial) 0 unit SUBCUT QIDACHS [facility]; Protocol Last Admin: 01/24/23 08:06 Dose: 6 unit Documented By: DESIREE Lisinopril (Lisinopril 10 Mg Tablet) 30 mg PO DAILY [facility]; Protocol Last Admin: 01/24/23 08:05 Dose: 30 mg Documented By: DESIREE Melatonin (Melatonin 3 Mg Tablet) 6 mg PO BEDTIME PRN PRN Reason: Insomnia Last Admin: 01/23/23 21:41 Dose: 6 mg Documented By: BILL Metoprolol Succinate (Metoprolol Succinate Er 100 Mg Tab.Er.24h) 100 mg PO DAILY [facility]; Protocol Last Admin: 01/24/23 08:06 Dose: 100 mg Documented By: DESIREE Ondansetron HCl (Ondansetron Hcl 4 Mg/2 Ml Vial) 4 mg IVPUSH Q8H PRN PRN Reason: Nausea and Vomiting Pharmacy Consult (Consult Rx Vancomycin Dosing) 1 each MISCELLANE DAILY PRN PRN Reason: Consult order Sodium Chloride (0.9 % Sodium Chloride Flush 3 Ml Syringe) 3 ml IVFLUSH QSHIFT [facility] Last Admin: 01/24/23 08:07 Dose: 3 ml Documented By: DESIREE Zolpidem Tartrate (Zolpidem Tartrate 5 Mg Tablet) 10 mg PO BEDTIME PRN PRN Reason: insomnia Labs 01/23/23 05:05 01/24/23 05:02 Labs: Laboratory Results - last 24 hr 01/23/23 01/23/23 01/23/23 10:54 16:47 18:54 Estim Creat Clear Calc Estimated GFR POC Glucose 324 H 327 H 307 H Estimat Average Glucose Hemoglobin A1c % 01/23/23 01/24/23 01/24/23 20:58 00:25 05:02 Estim Creat Clear Calc 140.9 Estimated GFR > 60 POC Glucose 315 H 253 H Estimat Average Glucose 217 Hemoglobin A1c % 9.2 H 01/24/23 07:33 Estim Creat Clear Calc Estimated GFR POC Glucose 259 H Estimat Average Glucose Hemoglobin A1c % Microbiology Microbiology Results: Microbiology 01/23/23 01:02 Blood Culture - Preliminary Blood - Venous No growth after 24 hours. 01/23/23 01:02 Blood Culture - Preliminary Blood - Venous No growth after 24 hours. Assessment and Plan (1) Cellulitis: Status: Acute Plan This is a 52-year-old male with pertinent history of paroxysmal atrial fibrillation on Eliquis, essential hypertension, insulin-dependent diabetes mellitus, mood disorder who presents to the emergency department for evaluation of bilateral leg pain, warmth, swelling and redness. Sepsis due to lower extremity cellulitis sepsis resolved continue vancomycin ID consult pending neg venous doppler for DVT bilat Cedric wraps for edema Blood cultures negative after 24 hours Insulin-dependent diabetes mellitus with hyperglycemia ss, ada diet Paroxysmal atrial fibrillation On Eliquis. Rate controlled Essential hypertension Continue home antihypertensives Mood disorder Continue home mood stabilizers History of poly substance use disorder opiates, fentanyl and marijuana positive DVT prophylaxis: Tamia Attending Dr. Mares Disposition. Discharge home when medically clear, with oral antibiotics continued hospital stay for IV antibiotics (as above), which is not possible in a lesser acute setting. Quality Stroke Does the patient have a stroke diagnosis?: No VTE Prior VTE?: No VTE Risk Level:: Medical - moderate - high VTE Device Contraindication: Treatment Not Indicated VTE Drug Contraindication: N/A - Med Ordered
[2023-01-24 10:46] LABS: Vancomycin Trough 4.6 mcg/mL (10.0-20.0)
--- NOTE | 2023-01-24 11:24 | HE.PHANOTE ---
RE: TOMASO On 01/24/23, trough came back as 4.6. With indication of sepsis, higher trough and AUC are desired. Dose is now increased to 1750mg q8h with predicted AUC of 521 and trough of 15. The concern of dose dumping was considered. Random trough was put in for 01/25/23 @1100, will evaluate for safety and efficacy and adjust dose accordingly.
[2023-01-24 11:26] LABS: Glucose, Whole Blood 425 mg/dL (60-115)
[2023-01-24] MEDS: vancomycin HCL 1,000 MG, vancomycin HCL 750 MG in 0.9 % Sodium Chloride 500 ML 267.5 MG IV ×2 (13:59→22:56)
[2023-01-24 15:36] VITALS: BP 107/55; PULSE 70; RESP 17; TEMP 37; O2SAT 98
--- NOTE | 2023-01-24 15:57 | W.PM.IDCN ---
History of Present Illness Data of Consult Service Date: 01/24/23 Requesting physician: Cheryl Garduno Primary Care Provider: MD TATI Sparks Reason for consult: leg inflammation He presents with redness bilateral legs redness after fall last week He has no other concerns Review of Systems Review of Systems: Yes all other systems are reviewed and are negative PMFSH Past Medical History Medical History Polysubstance abuse Paroxysmal atrial fibrillation with rapid ventricular response Lumbar degenerative disc disease Substance abuse Diabetes Depression Overactive bladder Arthritis BPH (benign prostatic hyperplasia) Asthma Seizure Morbid obesity with BMI of 40.0-44.9, adult Benign essential hypertension Insomnia Primary osteoarthritis of both knees Anxiety Family history of thyroid disorder Type 2 diabetes mellitus with hyperglycemia Family History Family History Father ETOH abuse Mother Diabetes Arthritis of knee Hypertension Other Mental health problem Substance abuse Family history: reviewed and not pertinent Surgical History Surgical History No history of previous surgery Social History Social History Household Members: Other Household Members Other:: 2 Housing: House Housing Other:: Room Do you presently have visiting nurse or other home services: No Alcohol intake: never Patient Tobacco Use Status: Never used Tobacco e-Cigarette/Vaping Use: Never Used Second Hand Smoke Exposure: No Substance Use Type: Heroin and Marijuana Advance Directives Date on File: 02/23/22 service: No Current occupational status: unemployed and disabled Cognitive needs: No Hearing needs: No Vision needs: No Meds Allergies Allergy/AdvReac Type Severity Reaction Status Date / Time Penicillins [PENICILLINS] Allergy Unknown RASH Verified 12/15/22 16:19 Active Medications: Current Medications Acetaminophen (Acetaminophen 325 Mg Tablet) 650 mg PO Q6H PRN PRN Reason: Pain, Mild (Pain Scale 1-3) Last Admin: 01/23/23 21:45 Dose: 650 mg Albuterol Sulfate (Albuterol Sulfate 90 Mcg 8 Gm Inhaler) 2 puff INHALE Q8H PRN PRN Reason: for wheezing Amlodipine Besylate (Amlodipine Besylate 5 Mg Tablet) 5 mg PO DAILY [facility]; Protocol Last Admin: 01/24/23 08:06 Dose: 5 mg Apixaban (Apixaban 5 Mg Tablet) 5 mg PO BID [facility] Last Admin: 01/24/23 08:06 Dose: 5 mg Buspirone HCl (Buspirone Hcl 10 Mg Tablet) 30 mg PO TID [facility] Last Admin: 01/24/23 14:09 Dose: 30 mg Dextrose (Dextrose 50 % 25 Gm/50 Ml Syringe) 25 gm IVPUSH Q15M PRN; Protocol PRN Reason: per Hypoglycemia Standing Ord. Diltiazem HCl (Diltiazem Hcl Cd 180 Mg Cap.Er.24h) 180 mg PO DAILY [facility]; Protocol Last Admin: 01/24/23 08:06 Dose: 180 mg Escitalopram Oxalate (Escitalopram Oxalate 20 Mg Tablet) 20 mg PO DAILY [facility] Last Admin: 01/24/23 08:06 Dose: 20 mg Glucose (Glucose Gel 15 Gm Gel..Gram.) 15 gm PO Q15M PRN; Protocol PRN Reason: per Hypoglycemia Standing Ord. Vancomycin HCl 1,000 mg/Vancomycin HCl 750 mg/ Sodium Chloride 535 mls @ 267.5 mls/hr IV Q8H [facility] Last Admin: 01/24/23 13:59 Dose: 267.5 mls/hr Insulin Glargine (Insulin Glargine,Hum.Rec.Anlog 100 Unit/Ml 10 Ml Vial) 40 unit SUBCUT BEDTIME [facility] Last Admin: 01/23/23 21:40 Dose: 40 unit Insulin Glargine (Insulin Glargine,Hum.Rec.Anlog 100 Unit/Ml 10 Ml Vial) 50 unit SUBCUT BEDTIME [facility] Insulin Human Lispro (Insulin Lispro 100 Unit/Ml 3 Ml Vial) 0 unit SUBCUT QIDACHS [facility]; Protocol Last Admin: 01/24/23 12:00 Dose: 10 unit Insulin Human Lispro (Insulin Lispro 100 Unit/Ml 3 Ml Vial) 5 unit SUBCUT QIDACHS [facility] Lisinopril (Lisinopril 10 Mg Tablet) 30 mg PO DAILY [facility]; Protocol Last Admin: 01/24/23 08:05 Dose: 30 mg Melatonin (Melatonin 3 Mg Tablet) 6 mg PO BEDTIME PRN PRN Reason: Insomnia Last Admin: 01/23/23 21:41 Dose: 6 mg Metoprolol Succinate (Metoprolol Succinate Er 100 Mg Tab.Er.24h) 100 mg PO DAILY [facility]; Protocol Last Admin: 01/24/23 08:06 Dose: 100 mg Ondansetron HCl (Ondansetron Hcl 4 Mg/2 Ml Vial) 4 mg IVPUSH Q8H PRN PRN Reason: Nausea and Vomiting Pharmacy Consult (Consult Rx Vancomycin Dosing) 1 each MISCELLANE DAILY PRN PRN Reason: Consult order Sodium Chloride (0.9 % Sodium Chloride Flush 3 Ml Syringe) 3 ml IVFLUSH QSHIFT [facility] Last Admin: 01/24/23 08:07 Dose: 3 ml Zolpidem Tartrate (Zolpidem Tartrate 5 Mg Tablet) 10 mg PO BEDTIME PRN PRN Reason: insomnia Physical Exam Vital Signs: Vital Signs: Last Vital Signs Temp 98.6 F 01/24/23 15:36 Pulse 70 01/24/23 15:36 Resp 17 01/24/23 15:36 BP 107/55 L 01/24/23 15:36 Pulse Ox 98 01/24/23 15:36 O2 Del Method Room Air 01/24/23 15:36 BMI result Body Mass Index 47.8 Const: General: cooperative HEENT: Head: Yes normal to inspection Face and sinus: Yes normal facial exam Mouth: Normal oral and palatal mucosa present Teeth and gingiva: dentition normal Eyes: General: appearance normal, both eyes and all related structures Pupils: Equal, round and reactive pupils present Resp: Effort & Inspection: normal respiratory effort Cardio: Rate: regular rate Rhythm: regular rhythm GI: Palpation (GI): Soft to palpation and nontender : General: Yes no CVA tenderness Back/Spine/Pelvis: Back: no CVA tenderness Skin: General skin exam: no rashes or lesions noted Neuro: General: moves all extremities Cranial nerves: Yes Equal, round and reactive pupils present Extrem: Other: erythema bilateral legs Psych: Appearance: grossly normal Results Labs 01/23/23 05:05 01/24/23 05:02 Labs: BMP 01/24/23 05:02 Creatinine 0.87 Microbiology Microbiology Results: Microbiology 01/23/23 01:02 Blood - Venous Blood Culture - Preliminary No growth after 24 hours. 01/23/23 01:02 Blood - Venous Blood Culture - Preliminary No growth after 24 hours. Assessment and Plan (1) Cellulitis: Status: Acute He has more venous stasis changes as bilateral leg redness There are no signs of OM Plan Would give po Doxycycline for 14 days 100 mg bid. Return if worsens.
[2023-01-24 16:27] LABS: Glucose, Whole Blood 239 mg/dL (60-115)
--- NOTE | 2023-01-24 16:55 | P.CDIM_ITS ---
PROVIDER RESPONSE TEXT: To clarify, the appropriate diagnosis supported by the clinical indicators: Clinically unable to determine (explain): unknown if related QUERY TEXT: PHYSICIAN'S DOCUMENTATION REQUEST Date of Query: 01/24/2023 10:07 AM EST Patient Name: Herman Nelson Admit Date: 01/23/2023 Dear Cheryl Garduno, A review of the medical record indicates additional documentation may be needed. Please review below and update the documentation accordingly. Clinical Indicators: Sepsis due to lower extremity cellulitis. Bilateral leg pain, warmth, swelling, redness. Insulin dependent Diabetes mellitus (subcutaneous pen 50 units Insulin glargine at home nighttime) Resuscitated with IV cystalloids. IV antibiotics, initiating basal plus Insulin regimen Please clarify the relationship between these conditions: Cellulitis is related to / associated with / due to Diabetes mellitus Cellulitis is not related to / associated with / due to the Diabetes mellitus Other (explain) Clinically unable to determine (explain) Thank you, Alexa Sosa, CCS, CDIS Use of terms such as suspected, likely, concern for, or probable (associated with a specific diagnosi s that is being evaluated, monitored, or treated as if it exists) are acceptable and can be coded in the inpatient se tting, when documented at the time of discharge. Please use your independent medical judgment in providing your response. THIS QUERY IS PART OF THE PERMANENT MEDICAL RECORD
[2023-01-24 19:42] VITALS: BP 120/55; PULSE 84; RESP 18; TEMP 36.6; O2SAT 98
[2023-01-24 21:25] LABS: Glucose, Whole Blood 323 mg/dL (60-115)
[2023-01-24] MEDS: Insulin Glargine,Hum.rec.anlog 100 UNIT/ML 10 ML VIAL 40 UNIT SUBCUT (22:51)
[2023-01-25 04:00] VITALS: BP 119/56; PULSE 71; RESP 16; TEMP 36.4; O2SAT 99
[2023-01-25] MEDS: vancomycin HCL 1,000 MG, vancomycin HCL 750 MG in 0.9 % Sodium Chloride 500 ML 267.5 MG IV (06:14)
[2023-01-25 06:27] LABS: Creatinine Clr Calc Pharmacy 149.5; Estimated Glomerular Filt Rate > 60
[2023-01-25 07:17] VITALS: BP 132/69; PULSE 75; RESP 17; TEMP 36.1; O2SAT 98
[2023-01-25 07:42] LABS: Glucose, Whole Blood 217 mg/dL (60-115)
[2023-01-25] MEDS: Apixaban 5 MG TABLET PO (07:54)
[2023-01-25] MEDS: Metoprolol Succinate ER 100 MG TAB.ER.24H PO (07:54)
[2023-01-25] MEDS: Insulin Lispro 100 UNIT/ML 3 ML VIAL SUBCUT ×4 (07:54→11:37)
[2023-01-25] MEDS: lisinopriL 10 MG TABLET 30 MG PO (07:54)
[2023-01-25] MEDS: Escitalopram Oxalate 20 MG TABLET PO (07:54)
[2023-01-25] MEDS: 0.9 % Sodium Chloride Flush 3 ML SYRINGE IVFLUSH (07:55)
[2023-01-25] MEDS: busPIRone HCl 10 MG TABLET 30 MG PO (07:55)
[2023-01-25] MEDS: dilTIAZem HCL CD 180 MG CAP.ER.24H PO (07:55)
[2023-01-25] MEDS: amLODIPine Besylate 5 MG TABLET PO (07:55)
[2023-01-25 11:22] LABS: Glucose, Whole Blood 257 mg/dL (60-115)
--- NOTE | 2023-01-25 11:56 | PM.DS ---
DS: Providers Provider Date of Service: 01/25/23 Date of admission: 01/23/23 03:33 Date of discharge: 01/25/23 Primary care physician: Julio Carter MD Consults: 01/23/23 13:08 Consult to Infectious Diseases Routine Consulting Provider: [facility] [place] Infectious Disease Reason for consultation: cellulitis bilateral LE Attending physician on discharge: Kunal Mares Discharging clinician: Shaista Santos DS: Diagnosis Discharge Diagnosis (1) Cellulitis: Status: Acute DS: Summary Hospital Course Hospital Course: From H&P on day of admission This is a 52-year-old male with pertinent history of paroxysmal atrial fibrillation on Eliquis, essential hypertension, insulin-dependent diabetes mellitus, mood disorder who presents to the emergency department for evaluation of bilateral leg pain, warmth, swelling and redness. Patient states he had a mechanical fall about 2 days prior to presentation. He hurt both his ankles. Since the fall, patient states his legs have been progressively swollen, red and warm. He has been having pain with ambulation. Also admits fevers and chills. Does have a history of cellulitis. No chest discomfort, palpitations, cough, shortness of breath, nausea, vomiting, changes in urinary or bowel habits. Patient admits that he is not compliant with his home p.o. medications In the emergency department, patient was found to be septic and initiated on empiric IV antibiotics Sepsis due to bilateral lower extremity cellulitis related to chronic venous stasis and diabetes. Patient was admitted and started on IV antibiotics, sepsis resolved. Bilateral doppler US of lower extremities were negative for DVT. He was seen in consultation by infectious disease who recommended 14 days of doxycycline. Leg edema may be related to high salt intake as he reports eating ramen daily for several days leading up to hospitalization. His legs were wrapped with Renuka wraps. Erythema and edema have improved. Blood cultures negative after 24 hours. Recommend to watch salt intake, keep legs elevated when at rest and continue to wrap legs. Outpatient follow up with PCP recommended. Time Attestation Discharge coordination time: Greater than 30 minutes Quality: Safe Use of Opioids Does Pt have an Active Cancer Diagnosis on the Problem List?: No Quality: Stroke Does the patient have a stroke diagnosis?: No Physical Exam Vital Signs: Vital Signs: Last Vital Signs Temp 97.0 F 01/25/23 07:17 Pulse 75 01/25/23 07:17 Resp 17 01/25/23 07:17 BP 132/69 01/25/23 07:17 Pulse Ox 98 01/25/23 07:17 O2 Del Method Room Air 01/25/23 07:17 BMI result Body Mass Index 47.8 Const: General: cooperative, comfortable, well developed, alert and awake Nutritional Appearance: obese Orientation/consciousness: patient oriented x3 Resp: Effort & Inspection: normal respiratory effort, able to speak in complete sentences, no respiratory distress and no use of accessory muscles Cardio: Rate: regular rate Heart sounds: S1 normal heart sound present and S2 normal heart sound present GI: Inspection: No distended Palpation (GI): Soft to palpation and nontender Neuro: General: patient oriented x3, moves all extremities and CN's II-XI intact bilaterally Extrem: Other: b/l lower extremities with improvement of edema and erythema. no tenderness to palpation DS: Data Data Completed and Pending Labs on day of discharge: Laboratory Results - last 24 hr 01/24/23 01/24/23 01/25/23 16:16 21:21 05:40 Creatinine 0.82 Estim Creat Clear Calc 149.5 Estimated GFR > 60 POC Glucose 239 H 323 H 01/25/23 01/25/23 07:23 11:11 Creatinine Estim Creat Clear Calc Estimated GFR POC Glucose 217 H 257 H Preliminary micro results at discharge 01/23/23 01:02 Blood Culture - Preliminary Blood - Venous No growth after 48 hours. 01/23/23 01:02 Blood Culture - Preliminary Blood - Venous No growth after 48 hours. Discharge Plan Discharge Anticipated Discharge Date/Time: 01/25/23 12:33 Patient Disposition: Home, Self-Care Discharge Diagnosis: bilateral leg cellulitis chronic venous stasis Referrals: Julio Carter MD [Primary Care Provider] - 1 Week Discharge Medications: New doxycycline hyclate 100 mg tablet 100 mg PO BID 14 Days Qty: 28 0RF Continued buspirone 30 mg tablet 30 mg PO TID Qty: 90 1RF escitalopram oxalate 20 mg tablet 20 mg PO DAILY Qty: 30 1RF albuterol sulfate [Ventolin HFA] 90 mcg/actuation HFA aerosol inhaler 2 puff PO Q8H PRN (Reason: for wheezing) Qty: 18 3RF insulin glargine 100 unit/mL (3 mL) insulin pen 50 unit subcut BEDTIME Qty: 15 6RF metformin 1,000 mg tablet 1,000 mg PO BID Qty: 180 3RF Eliquis 5 mg tablet 5 mg PO BID 30 Days Qty: 60 2RF Trulicity 1.5 mg/0.5 mL pen injector 1.5 mg subcut QWEEK Qty: 2 5RF lidocaine 5 % adhesive patch,medicated 2 patch topical DAILY PRN (Reason: pain) Qty: 60 5RF Rx Instructions: leave on most painful area for up to 12 hrs. keep off for 12 hrs zolpidem 10 mg tablet 10 mg PO BEDTIME PRN (Reason: insomnia) 30 Days Qty: 30 1RF tramadol 50 mg tablet 50 mg PO TID PRN (Reason: pain) 30 Days Qty: 90 0RF diclofenac sodium [Voltaren Arthritis Pain] 1 % gel 2 g topical QID PRN (Reason: Pain) Qty: 100 0RF Rx Instructions: apply to single elbow, wrist or hand; for hand includes palm/fingers/back of hand amlodipine 5 mg tablet 5 mg PO DAILY 30 Days Qty: 30 3RF metoprolol succinate 100 mg tablet extended release 24 hr 100 mg PO DAILY Qty: 30 3RF Protocol: Hold for SBP/HR < HOLD for SBP < : 90 HOLD for HR < : 60 lisinopril 30 mg tablet 30 mg PO DAILY Qty: 90 1RF diltiazem HCl [Cardizem CD] 180 mg capsule,extended release 24hr 180 mg PO DAILY Qty: 30 3RF Protocol: Hold for SBP/HR < HOLD for SBP < : 90 HOLD for HR < : 60 No Action (DME) lancets 28 gauge misc See Rx Instructions topical TID Qty: 100 0RF Rx Instructions: As directed (DME) FreeStyle Lite Strips Strip See Rx Instructions .ROUTE .COMPLEX Qty: 100 12RF Dose Instruction: DIRECTED THREE TIMES A DAY Rx Instructions: DIRECTED THREE TIMES A DAY (DME) pen needle, diabetic [BD Ultra-Fine Mini Pen Needle] 31 gauge x 3/16 needle See Rx Instructions .ROUTE .COMPLEX Qty: 50 3RF Dose Instruction: USE DIRECTED ONCE DAILY Rx Instructions: USE DIRECTED ONCE DAILY (DME) pen needle, diabetic [BD Ultra-Fine Mini Pen Needle] 31 gauge x 3/16 needle See Rx Instructions .ROUTE .COMPLEX Qty: 100 3RF Dose Instruction: USE DIRECTED ONCE DAILY Rx Instructions: USE DIRECTED ONCE DAILY (DME) richard.stocking,knee,reg,xlrg Misc See Rx Instructions .Route Qty: 12 0RF Rx Instructions: As directed (DME) blood pressure monitor Kit See Rx Instructions .Route Qty: 1 0RF Rx Instructions: As directed (DME) blood-glucose meter [FreeStyle [place] Lite] Kit See Rx Instructions .Route Qty: 1 0RF Rx Instructions: As directed checks 4X day Discharge Orders: Discharge Order (Routine); Ordered 01/25/23 Ordered By: Shaista Santos Activity on Discharge: As tolerated Stand Alone Forms: Patient Portal Discharge page Care Plan Goals: see below Health Concerns: bilateral leg cellulitis bilateral leg swelling chronic venous stasis Plan of Treatment: complete course of antibiotics as prescribed - 14 days of doxycycline keep legs elevated when at rest continue to wrap legs with RENUKA wraps if you have swelling recommend to follow a low salt diet call to schedule a follow up appointment with PCP Assessment: see discharge summary
--- NOTE | 2023-01-25 13:37 | MHC.CM.PN ---
DP: PT HAS BEEN MEDICALLY CLEARED FOR DC HOME, NO SERVICES. PT HAS OWN RIDE HOME.
== END 2023-01-25 14:21 | disposition home or self-care (01) | DRG 720 ==
LOC: HO.ED 01-23 03:14 → HO.EDOVER 01-23 03:37 → HO.S3 01-23 19:37
PROVIDERS: Nurse Practitioner Acute Care; Physician Assistant; Admitting Provider Student in an Organized Health Care Education/Training Program; Emergency Provider Internal Medicine; PCP Internal Medicine; Visit Provider Physician Assistant Medical
DX: A41.9 Sepsis, unspecified organism (principal); E11.628 Type 2 diabetes mellitus with other skin complications; L03.115 Cellulitis of right lower limb; E11.65 Type 2 diabetes mellitus with hyperglycemia; F39 Unspecified mood [affective] disorder; I87.323 Chronic venous hypertension (idiopathic) with inflammation of bilateral lower extremity; I10 Essential (primary) hypertension; F19.10 Other psychoactive substance abuse, uncomplicated; Z20.822 Contact with and (suspected) exposure to COVID-19; Z88.0 Allergy status to penicillin; Z79.01 Long term (current) use of anticoagulants; Z79.84 Long term (current) use of oral hypoglycemic drugs; Z79.899 Other long term (current) drug therapy; L03.116 Cellulitis of left lower limb
CPT/HCPCS: 0241U; 36415; 73562; 73610; 80048; 80053; 80202; 80307; 82565; 82947; 83036; 83605; 85025; 85652; 86140; 87040; 93970; 99285; J3370; J3371

== ENCOUNTER → 2023-01-23 03:33 | Outpatient (BNV) | payer OTHER, SELFPAY | PROVIDERS: Admitting Provider Student in an Organized Health Care Education/Training Program; Emergency Provider Internal Medicine; PCP Internal Medicine; Visit Provider Internal Medicine | DX: L03.90 Cellulitis, unspecified (principal) | CPT/HCPCS: 99222 ==

== ENCOUNTER → 2023-01-23 03:33 | Outpatient (BNV) | payer OTHER, SELFPAY | PROVIDERS: Admitting Provider Student in an Organized Health Care Education/Training Program; Emergency Provider Internal Medicine; PCP Internal Medicine; Visit Provider Student in an Organized Health Care Education/Training Program | DX: L03.115 Cellulitis of right lower limb (principal); L03.116 Cellulitis of left lower limb | CPT/HCPCS: 99222; 99232; 99239; 99499 ==

== ENCOUNTER 2023-01-29 14:03 | Outpatient (AMB) | payer OTHER, SELFPAY ==
--- NOTE | 2023-01-29 14:14 | A.OFFVIS_ITS ---
Intake Intake Visit Reasons: phimosis Intake Note: New Patient is Present for Phimosis (Previously seen Dr Cramer) Urology Medication: None Antibiotic Allergies: Pencillins Blood Thinners: Eliquis PVR: 0 Complaints: Patient states that he needs a circumcision and due to not having o ne he keeps getting yeast infections. He is aware that His sugar levels are not controlled. States his sugar level this morning was 275. He said that he does understand and was told previously that due to his uncontrolled diabetes he will not heal correctly. Allergies Penicillins [PENICILLINS] Allergy (Unknown, Verified 12/15/22 16:19) RASH HPI HPI Comments History of Present Illness Details Herman is here with complaints of irritation of foreskin, CoMorbidities DM. Obesity He denies hematuria. H/o polysubstance abuse exam- c/w balanitis Plan- pt states he is not interested in circumcision at this time Lotrisone cream prescribed [facility] Medical History Polysubstance abuse Paroxysmal atrial fibrillation with rapid ventricular response Lumbar degenerative disc disease Substance abuse Diabetes Depression Overactive bladder Arthritis BPH (benign prostatic hyperplasia) Asthma Seizure Morbid obesity with BMI of 40.0-44.9, adult Benign essential hypertension Insomnia Primary osteoarthritis of both knees Anxiety Family history of thyroid disorder Type 2 diabetes mellitus with hyperglycemia Surgical History No history of previous surgery Family History Father ETOH abuse Mother Diabetes Arthritis of knee Hypertension Other Mental health problem Substance abuse Social History Household Members: Other Household Members Other:: 2 Housing: House Housing Other:: Room Do you presently have visiting nurse or other home services: No Alcohol intake: never Comment: refused bed alarm Patient Tobacco Use Status: Never used Tobacco e-Cigarette/Vaping Use: Never Used Second Hand Smoke Exposure: No Substance Use Type: Heroin and Marijuana Advance Directives Date on File: 02/23/22 service: No Current occupational status: unemployed and disabled Cognitive needs: No Hearing needs: No Vision needs: No Review of Systems Const All systems reviewed & are unremarkable except as noted in HPI and below Reports no additional complaints Eyes Reports no additional complaints ENT Reports no additional complaints Card Denies dyspnea Resp Denies cough and Denies dyspnea GI Reports no additional complaints Musc Reports no additional complaints Skin/Breast Denies rash and Denies unusual bruising Neuro Reports no additional complaints Psych Reports no additional complaints Endo Reports no additional complaints Jose/Lymph Reports no additional complaints Aller/Immun Reports no additional complaints Physical Exam Const General: healthy appearing, no acute distress and well developed Nutritional Appearance: overweight Orientation/consciousness: patient oriented x3 HEENT Head: Yes normocephalic and Yes atraumatic Eyes Conjunctivae: conjunctivae normal Neck Neck: Yes normal visual inspection Chest Chest palpation & inspection: normal inspection of the chest Resp Effort & Inspection: normal respiratory effort Cardio Rate: regular rate GI Inspection: Yes normal to inspection Palpation (GI): Soft to palpation Penis: uncircumcised and erythematous Scrotum: scrotum normal Skin General skin exam: no rashes or lesions noted Neuro General: patient oriented x3 Extrem General: No pedal edema Psych Appearance: grossly normal Affect: normal affect Office Procedures Post Void Residual Post Residual Void Post Void Residual (PVR): 0 [id number] Void Residual by ultrasound Results AMB Urinalysis, Automated UA Leukoctes 0 Marlee/uL Last Edit by Valentine Pate [facility] on 01/29/23 14:39 UA Nitrite Negative Last Edit by Valentine Pate [facility] on 01/29/23 14:39 UA Urobilinogen 0.2 mg/dL Last Edit by Valentine Pate [facility] on 01/29/23 14:3 9 UA Protein 15 mg/dL Last Edit by Valentine Pate [facility] on 01/29/23 14:39 UA pH 6.5 Last Edit by Valentine Pate [facility] on 01/29/23 14:39 UA Blood 0 Krunal/uL Last Edit by Valentine Pate [facility] on 01/29/23 14:39 UA Specific Neligh 1.015 Last Edit by Valentine Pate [facility] on 01/29/23 14: 39 UA Ketone Negative Last Edit by Valentine Pate [facility] on 01/29/23 14:39 UA Bilirubin 0 mg/dL Last Edit by Valentine Pate [facility] on 01/29/23 14:39 UA Glucose 500 mg/dL Last Edit by CHINA Gilbert on 01/29/23 14:39 Results Reviewed Results Reviewed: Laboratory Last Values Urine pH (Auto) 6.5 01/29/23 14:38 Specific Neligh (Auto) 1.015 01/29/23 14:38 Urine Protein (Auto) 15 mg/dL 01/29/23 14:38 Glucose (UA)(Auto) 500 mg/dL 01/29/23 14:38 Urine Ketones (Auto) Negative 01/29/23 14:38 Urine Blood (Auto) 0 Krunal/uL 01/29/23 14:38 Urine Nitrite (Auto) Negative 01/29/23 14:38 Urine Bilirubin (Auto) 0 mg/dL 01/29/23 14:38 Urine Urobilinogen (Auto) 0.2 mg/dL 01/29/23 14:38 Leukocyte Esterase (Auto) 0 Marlee/uL 01/29/23 14:38 Assessment & Plan Assessment & Plan (1) Balanitis: Code(s): N48.1 - Balanitis (2) Phimosis: Code(s): N47.1 - Phimosis Plan clotrimazole-betamethasone 1-0.05 % apply to affected area bid for 7 days then bid Orders: Orders AMB Urinalysis Automated 01/29/23 Z13.9 - Encounter for screening, unspecified AMB Post Void Residual by ultrasound 01/29/23 N40.1 - Benign prostatic hyperplasia with lower urinary tract symptoms, R35.0 - Frequency of micturition Medications: New clotrimazole-betamethasone 1-0.05 % apply to affected area bid for 7 days then bid 1 appl topical BID PRN 45 grams 1RF balanitis Coding Level of Care Code New Pt Level 3 (47009) Diagnoses Balanitis N48.1 Phimosis N47.1 CPT Codes Post Residual Void - PVR CPT Code: 10396-Hiir Void Residual by ultrasound ([id number])
== END 2023-01-29 15:24 | disposition home or self-care (01) ==
PROVIDERS: PCP Internal Medicine; Visit Provider Urology
DX: N48.1 Balanitis (principal); N47.1 Phimosis
CPT/HCPCS: 99203

== ENCOUNTER → 2023-01-29 14:03 | Outpatient (BNVA) | payer OTHER, SELFPAY | PROVIDERS: PCP Internal Medicine; Visit Provider Urology | DX: N48.1 Balanitis (principal); N47.1 Phimosis | CPT/HCPCS: 51798; 81003; 99202 ==

== ENCOUNTER 2023-03-08 14:04 | Outpatient (AMB) | payer OTHER, SELFPAY ==
--- NOTE | 2023-03-08 14:20 | MHC.AMDMED ---
Intake Intake Visit Reasons: DM/CONIFRMED Guideman Required: No Accompanied by: Self / Same As Patient Allergies Penicillins [PENICILLINS] Allergy (Unknown, Verified 12/15/22 16:19) RASH HPI Comprehensive Diabetes Asmnt Most Recent Diabetes Results: Hemoglobin A1c 8.4 % 10/01/19 Microalb/Creat Ratio 23.8 ug/mg cr 08/16/22 Cholesterol 185 mg/dL 08/16/22 HDL Cholesterol 52 mg/dL 08/16/22 Triglycerides 144 mg/dL 08/16/22 Creatinine 0.82 mg/dL (0.5-1.4) 01/25/23 Blood Urea Nitrogen 11 mg/dL (9-16) 01/23/23 Sodium 136 mmol/L (135-145) 01/23/23 Potassium 3.6 mmol/L (3.3-5.1) 01/23/23 Chloride 103 mmol/L (96-108) 01/23/23 Carbon Dioxide 26 mmol/L (22-29) 01/23/23 Calcium 8.5 mg/dL (8.4-10.2) 01/23/23 AST 16 U/L (5-37) 01/23/23 ALT 14 U/L (0-40) 01/23/23 Total Protein 7.0 g/dL (6.5-8.0) 01/23/23 Albumin 3.7 g/dL (3.5-5.0) 01/23/23 [facility] Medical History Polysubstance abuse Paroxysmal atrial fibrillation with rapid ventricular response Lumbar degenerative disc disease Substance abuse Diabetes Depression Overactive bladder Arthritis BPH (benign prostatic hyperplasia) Asthma Seizure Morbid obesity with BMI of 40.0-44.9, adult Benign essential hypertension Insomnia Primary osteoarthritis of both knees Anxiety Family history of thyroid disorder Type 2 diabetes mellitus with hyperglycemia Surgical History No history of previous surgery Family History Father ETOH abuse Mother Diabetes Arthritis of knee Hypertension Other Mental health problem Substance abuse Social History Household Members: Other Household Members Other:: 2 Housing: House Housing Other:: Room Do you presently have visiting nurse or other home services: No Alcohol intake: never Comment: refused bed alarm Patient Tobacco Use Status: Never used Tobacco e-Cigarette/Vaping Use: Never Used Second Hand Smoke Exposure: No Substance Use Type: Heroin and Marijuana Advance Directives Date on File: 02/23/22 service: No Current occupational status: unemployed and disabled Cognitive needs: No Hearing needs: No Vision needs: No Assessment & Plan Assessment & Plan (1) Type 2 diabetes mellitus with hyperglycemia: Comment: Admitted for [facility] in July 2019 Code(s): E11.65 - Type 2 diabetes mellitus with hyperglycemia Qualifiers: Diabetes mellitus remote computer terminal operator insulin use: without remote computer terminal operator use Qualified Code(s): E11.65 - Type 2 diabetes mellitus with hyperglycemia Plan: Diabetes self-management education and support participation record Assessment/scale: 1= needs instructed? 2= needs review? 3= comprehend keep point? 4= demonstrates understanding/ competent? NC= Not Covered Topics Learning Objective: Initial visit Initial or post srvc Initial or post srvc Initial or post srvc Initial or post srvc Initial or post srvc Post srvc Comments Pre Edu-assessment/plan Outcome or reassess Outcome or reassess Outcome or reassess Outcome or reassess Outcome or reassess Outcome or reassess Diabetes pathophysiology 1 2 Healthy eating 1 2 Being active 1 2 Taking medication 1 Monitoring glucose 1 2 Acute complication 1 Chronic complicated 1 Lifestyle and healthy coping 1 Diabetes distress in support 1 ?Diabetes pathophysiology: ?Defined diabetes med identify own type of diabetes; list 3 options for treating diabetes Healthy eating: ?Described effect of type, amount and ?timing of food on blood glucose; list 3 methods for planning meal Being active: ?State effect of exercise on blood glucose level Taking medication: ?State effect of diabetes medications on diabetes; name diabetes medications taking, action and side effects Monitoring glucose: ?Identify recommended blood glucose targets and personal target Acute complication: ?List symptoms and treatment of hyper and hypoglycemia, DKA, sick day guidelines and guidelines for severe weather or situations of crisis and diabetes supply manage Chronic complication: ?To find the relationship of blood glucose levels to long-term complications of diabetes in screening and preventative measures Lifestyle and healthy coping: ?Described lifestyle and healthy coping strategies to rule out diabetes self-management Diabetes to stress and support: ?Recognize Diabetes to stress and be able to identified support options Learning objectives: The patient was provided with verbal and written education on the following topics as outlined below. Assess patient education level/literacy/barriers Patient questions/concerns, patient is overdue for A1c. PCP placed A1c orders in December 2022 patient has not had labs drawn. Patient is currently taking Trulicity 1.5 mg Metformin 1000 mg b.i.d. Lantus 30 units daily Patient denies missing diabetes medication, patient also denies missing blood pressure medications which was mentioned in PCPs last note Patient did not bring meter to today's visit Patient came to diabetes visit snacking on cookies and gummy bears, explained to patient the effects that does snacks will have on his glucose. During visit patient's it appeared to be having difficulty staying awake. The patient met all learning objectives and was able to verbalize understanding and provide teach back of education topics discussed . The patient was provided with the opportunity to ask questions and all questions were answered. Topics covered in today?s session included: Medications (If applicable) Name of medication? Dosing/administration instructions? Mechanism of action? Potential side effects? Potential adverse reaction and appropriate treatment? Review onset, peak, duration Assess for concerns re: insurance coverage, cost, barriers to compliance Insulin/Injectables (If applicable) Storage/care of insulin?? Injection sites? Site rotation? Onset, peak, duration Drawing up insulin? Injecting insulin/other injectables? Sharps disposal Continuous blood glucose monitoring (if applicable) Hypoglycemia and Hyperglycemia Signs and symptoms? Causes?? Treatment? Preventing hypoglycemia? When to seek medical attention Blood glucose targets and how you feel when your blood glucose is in and out of your target ranges. Monitoring and knowing your A1C. What can make blood glucose go up and down and preventing high and low blood glucose. Review of blood sugar targets in expected goal range and outside of expected goal range. Problem solving and preventing hyper/hypoglycemia. Sick day management of diabetes. Using blood sugar results in decision making process in managing diabetes. ?Patient was receptive to information provided and participated in the discussion. Asked?appropriate questions and demonstrated good understanding of the topics discussed.? ? Educational Materials: The patient was provided with the following written educational materials: Target Goal handout New Smart Goal: Get Alc drawn before next visit Patient Response to instructions: Comprehension of Instructions: poor Readiness to make changes:? pre contemplation How confident they feel about making changes:poor Patient Instructions: Bring you meter to every visit Follow up with Diabetes Education nurse in 1 month Coding Level of Care Code Est Pt Level 1 (99541) Diagnoses Type 2 diabetes mellitus with hyperglycemia, without long-term current use of insulin E11.65 Diabetes mellitus remote computer terminal operator insulin use: without fci use
== END 2023-03-08 14:51 | disposition home or self-care (01) ==
PROVIDERS: PCP Internal Medicine; Visit Provider Registered Nurse Diabetes Educator
DX: E11.65 Type 2 diabetes mellitus with hyperglycemia (principal)

== ENCOUNTER 2023-03-08 14:04 | Outpatient (REF) | payer OTHER, SELFPAY ==
[2023-03-08 15:26] LABS: MANUAL DIFF FLAG NO
[2023-03-08 15:41] LABS: Basophils Percent Auto 0.2 % (0-2); Eosinophils Percent Auto 0.2 % (0-4); Hematocrit 45.3 % (42.0-52.0); Hemoglobin 15.1 g/dl (14.0-18.0); Imm Gran Abs Auto 0.04 X10*3/uL (0.00-0.03); Imm Gran Pct Auto 0.4 % (0.0-0.4); Lymphocytes Absolute Auto 1.7 X10*3/uL (1.2-4.9); Lymphocytes Percent Auto 15.9 % (20-40); Mean Corpuscular HGB Conc 33.3 g/dl (31.0-36.0); Mean Corpuscular Hemoglobin 29.3 pg (27.0-33.0); Mean Platelet Volume 9.9 fL (9.4-12.4); Monocytes Absolute Auto 0.4 X10*3/uL (0.1-1.2); Monocytes Percent Auto 3.8 % (2-11); Neutrophils Absolute Auto 8.5 x10*3/uL (2.0-8.3); Neutrophils Percent Auto 79.5 % (45-73); Platelet Count 326 X10*3/uL (160-400); Red Blood Count 5.15 X10*6/uL (4.60-5.80); Red Cell Distribution Width 12.6 % (11.0-16.0); White Blood Count 10.6 X10*3/uL (4.8-10.8)
[2023-03-08 15:53] LABS: Estimated Average Glucose 194 mg/dL; Hemoglobin A1c % 8.4 % (<6.0)
[2023-03-08 16:32] LABS: Vitamin D 25-OH Total 15.8 ng/mL (>30)
[2023-03-08 17:21] LABS: Appearance Urine Clear; Color Urine Yellow; Glucose Urine UA 500 mg/dL (Negative); Leukocyte Esterase Urine Negative (Negative); Nitrite Urine Negative (Negative); PH 5.5 (5.0-9.0); Specific Gravity - Urine >= 1.030 (1.005-1.025); UMIC TRIGGER UACC YES; Urine Blood Negative (Negative); Urine Ketones Trace mg/dL (Negative); Urine Protein 100 (2+) mg/dL (Neg-Trace)
[2023-03-08 17:31] LABS: Microalbum/Creatinine Ratio Ur 57.5 ug/mg cr (<30)
[2023-03-08 17:34] LABS: Bacteria Urine None Seen (None Seen); RBC Urine 0-2 /HPF (0-2); Squamous Epithelial Cell Urine 0-2 /HPF (0-2); WBC Urine 0-5 /HPF (0-5)
== END 2023-03-08 14:05 | disposition home or self-care (01) ==
LOC: HO.LAB 14:04
PROVIDERS: Absent Provider Internal Medicine; PCP Internal Medicine; Visit Provider Registered Nurse Diabetes Educator
DX: E78.00 Pure hypercholesterolemia, unspecified (principal); I10 Essential (primary) hypertension; E55.9 Vitamin D deficiency, unspecified; E11.65 Type 2 diabetes mellitus with hyperglycemia; Z71.89 Other specified counseling
CPT/HCPCS: 36415; 81001; 82043; 82306; 82570; 83036; 84443; 85025; 99211

== ENCOUNTER 2023-03-19 14:10 | Outpatient (AMB) | payer OTHER, SELFPAY ==
--- NOTE | 2023-03-19 14:19 | MHC.PC.OV ---
Vital Signs 03/19/23 14:20 Height 5 ft 8 in Weight 295 lb BMI 44.8 BP 122/68 Blood Pressure Location Lt brachial Position Sitting Pulse 90 Pulse Source Pulse Oximeter Pulse Oximetry (%) 97 Oxygen Delivery Method Room Air Intake Visit Reasons: HTN, DM Flight Physician Required: No Accompanied by: Self / Same As Patient Allergies Penicillins [PENICILLINS] Allergy (Unknown, Verified 03/19/23 17:07) RASH Medication List - Last Reconciled 03/19/23 by Julio Carter MD albuterol sulfate 90 mcg/actuation (Ventolin HFA) 2 puffs PO Q8H PRN amlodipine 5 mg PO DAILY 30 days apixaban (Eliquis) 5 mg PO BID 30 days blood pressure monitor As directed blood sugar diagnostic (FreeStyle Lite Strips) DIRECTED THREE TIMES A DAY blood-glucose meter (FreeStyle [place] Lite kit) As directed checks 4X day buspirone 30 mg PO TID clotrimazole-betamethasone 1-0.05 % 1 appl topical BID PRN [email or web address] As directed diclofenac sodium 1% (Voltaren Arthritis Pain) 2 grams topical QID PRN diltiazem HCl (Cardizem CD) 180 mg See Protocol PO DAILY dulaglutide (Trulicity) 1.5 mg (0.5 mL) subcut QWEEK escitalopram oxalate 20 mg PO DAILY insulin glargine (Lantus Solostar U-100 Insulin) 30 units (0.3 mL) subcut BEDTIME lancets (FreeStyle Lancets) As directed checks 4 X/day lancets As directed lidocaine 5% 2 patches topical DAILY PRN lisinopril 30 mg PO DAILY metformin 1,000 mg PO BID metoprolol succinate ER 100 mg See Protocol PO DAILY pen needle, diabetic (BD Ultra-Fine Mini Pen Needle) USE DIRECTED ONCE DAILY pen needle, diabetic (BD Ultra-Fine Mini Pen Needle) USE DIRECTED ONCE DAILY tramadol 50 mg PO TID PRN 30 days zolpidem 10 mg PO BEDTIME PRN 30 days Tobacco use date assessed: 03/19/23 Dental Screening Dental Screen Date: 03/19/23 Did you have a dental visit in the last 12 months?: Yes Did you have a dental problem in the last 6 months where you did not have access to dental care?: No Was dental information given to patient?: Patient has dentist HPI HTN, DM HPI Details Patient comes in today for his follow up visit States that he feels okay He denies any headaches or dizziness Denies any chest pains, no increased SOB No nausea/vomiting, no abdominal pain No change in bowel habits noted Needs a few of his Rx refilled Adds that he has been having problems with ED for a while now and is requesting for some Rx to help with this - has taken Viagra in the past States that he had some labs done a couple of weeks ago but these were non-fasting labs [facility] Medical History (Updated 03/20/23 @ 04:46 by Julio Carter MD) Erectile dysfunction Polysubstance abuse Paroxysmal atrial fibrillation with rapid ventricular response Lumbar degenerative disc disease Substance abuse Diabetes Depression Overactive bladder Arthritis BPH (benign prostatic hyperplasia) Asthma Seizure Morbid obesity with BMI of 40.0-44.9, adult Benign essential hypertension Insomnia Primary osteoarthritis of both knees Anxiety Family history of thyroid disorder Type 2 diabetes mellitus with hyperglycemia Surgical History No history of previous surgery Family History Father ETOH abuse Mother Diabetes Arthritis of knee Hypertension Other Mental health problem Substance abuse Social History Household Members: Other Household Members Other:: 2 Housing: House Housing Other:: Room Do you presently have visiting nurse or other home services: No Alcohol intake: never Comment: refused bed alarm Patient Tobacco Use Status: Never used Tobacco e-Cigarette/Vaping Use: Never Used Second Hand Smoke Exposure: No Substance Use Type: Heroin and Marijuana Advance Directives Date on File: 02/23/22 service: No Current occupational status: unemployed and disabled Cognitive needs: No Hearing needs: No Vision needs: No Questionnaire PHQ-9 Over the last 2 weeks, how often have you been bothered by any of the following problems? 1. Little interest or pleasure in doing things: several days 2. Feeling down, depressed, or hopeless: several days 3. Trouble falling or staying asleep, or sleeping too much: several days 4. Feeling tired or having little energy: several days 5. Poor appetite or overeating: several days 6. Feeling bad about yourself - or that you are a failure or have let yourself or your family down: several days 7. Trouble concentrating on things, such as reading the newspaper or watching television: not at all 8. Moving or speaking so slowly that other people could have noticed. Or the opposite - being so fidgety or restless that you have been moving around a lot more than usual: not at all 9. Thoughts that you would be better off or of hurting yourself in some way: not at all Total score: 6 Depression Screening Interpretation: Positive Depression Screening Follow-up: Existing condition and In treatment Depression Screening Done: Yes 30519 - PHQ-9 Billing: Yes Source: Developed by Drs. Michael Mcmanus, Penelope Pope, Cornell Snyder and colleagues, with an educational natty from [employer]. Thrive Questionnaire Date Thrive assessed: 03/19/23 I am a: Patient What is your living situation today?: I have a steady place to live Within the past 12 months, did the food you bought not last and you didn't have the money to get more?: Never true Within the past 12 months, did you worry whether your food would run out before you got money to buy more?: Never true Do you have trouble paying for medicines?: No Do you have trouble getting transportation to medical appointments?: No Do you have trouble paying your heating and electricity bill?: No Do you have trouble taking care of your child, family member or friend?: No Do you have trouble with day-to-day activities such as bathing, preparing meals, shopping, managing finances, etc.?: No Are you currently unemployed and looking for a job?: No Are you interested in more education?: No Please select the resources that you would like help with: None Currently or been in a relationship where the following occur: no concerns reported AUDIT C Alcohol Use Questionnaire (AUDIT-C) 1. How often do you have a drink containing alcohol?: Monthly or less 2. How many drinks containing alcohol do you have on a typical day when you are drinking?: 1 or 2 3. How often do you have six or more drinks on one occasion?: Never Total Score: 1 Score Reviewed/Action Taken: Yes TODD-7 AMB Questionnaire TODD-7 Date TODD - 7 assessed: 03/19/23 Feeling nervous, anxious, or on edge: 0 = Not at all Not being able to stop or control worryin = Not at all Worrying too much about different things: 0 = Not at all Trouble relaxin = Not at all Being so restless that it is hard to sit still: 0 = Not at all Becoming easily annoyed or irritable: 0 = Not at all Feeling afraid as if something awful might happen: 0 = Not at all Total TODD-7 score (0-4 normal; 5-9 mild; 10-14 moderate; 15-21 severe): 0 Source: Developed by Drs. Michael Mcmanus, Penelope Pope, Cornell Snyder and colleagues, with an educational natty from [employer]. Review of Systems Const Denies chills, Reports fatigue, Denies fever(s) and Denies headache(s) ENT Denies dysphagia, Denies dizziness, Denies otalgia, Denies headache(s), Denies nasal congestion, Denies odynophagia and Denies sore throat Card Denies chest pain, Reports pedal edema (bilateral, recurrent), Reports leg edema (bilateral, recurrent), Denies palpitations and Reports dyspnea on exertion (mild) Resp Denies cough, Reports dyspnea on exertion (mild) and Denies wheezing GI Denies abdominal pain, Denies constipation, Denies dysphagia, Denies heartburn, Denies diarrhea, Denies nausea, Denies odynophagia and Denies vomiting Denies difficulty urinating, Reports erectile dysfunction, Denies dysuria, Denies nocturia and Denies urinary frequency Musc Reports back pain Skin/Breast Denies rash Neuro Denies dizziness and Denies headache(s) Endo Reports fatigue and Denies palpitations Jose/Lymph Details: increasing swelling of both lower legs and feet Aller/Immun Denies wheezing Physical exam (Primary Care) Vital Signs: Last Vital Signs Pulse 90 03/19/23 14:20 BP 122/68 03/19/23 14:20 Pulse Ox 97 03/19/23 14:20 Oxygen Delivery Method Room Air 03/19/23 14:20 BMI result Body Mass Index 44.8 Tobacco/Smoking Status: Tobacco use Status Tobacco use date assessed 03/19/23 03/19/23 14:21 Patient Tobacco Use Status Never used Tobacco 03/19/23 14:21 e-Cigarette/Vaping Use Never Used 03/19/23 14:21 PHQ-9: PHQ-9 Score PHQ-9: Total score 6 03/19/23 17:15 Depression Screening Interpretation: Positive Depression Screening Follow-up: Existing condition and In treatment Thrive Assessment: Date of Thrive Assessment Date Thrive assessed 03/19/23 03/19/23 14:21 Currently or been in a relationship where the following occur: no concerns reported Const General: no acute distress and alert HENMT Ears: TM's normal bilaterally and EAC's normal Throat: Yes posterior oropharynx normal and Yes tonsils normal (no TP congestion) Neck Neck: Yes no lymphadenopathy and Yes supple Resp Auscultation: clear to auscultation bilaterally, no rales and no wheezes Cardio Rate: regular rate Rhythm: regular rhythm Heart sounds: no murmurs GI Palpation (GI): Soft to palpation and nontender Auscultation: normal bowel sounds Back/Spine/Pelvis Thoracic/Lumbar Spine: lumbar spinal tenderness Skin Other: (+) mild erythema of the distal half of both lower legs Rashes: no rashes Extrem General: No clubbing and Yes edema (2+ bipedal edema) Results Reviewed Results Reviewed: Laboratory Tests 03/08/23 03/08/23 15:25 15:30 WBC 10.6 Hgb 15.1 D Hct 45.3 D Plt Count 326 D 25-OH Vitamin D Total 15.8 L TSH 1.90 Ur Specific [place] >= 1.030 H Urine Protein 100 (2+) H Urine Glucose (UA) 500 H Urine Blood Negative Urine Nitrite Negative Ur Leukocyte Esterase Negative Microalb/Creat Ratio 57.5 H Assessment and Plan Assessment & Plan (1) Benign essential hypertension: Code(s): I10 - Essential (primary) hypertension Plan: Reinforced low sodium diet - goal is systolic BP of at least 120 to 130 mm or less Continue Lisinopril 30 mg QD and Amlodipine 5 mg QD He is also on Metoprolol ER 100 mg QD and Diltiazem CD 180 mg QD for atrial fibrillation but these should also help/impact his blood pressure (2) Type 2 diabetes mellitus with hyperglycemia: Comment: Admitted for [facility] in July 2019 Code(s): E11.65 - Type 2 diabetes mellitus with hyperglycemia Qualifiers: Diabetes mellitus provisioning analyst insulin use: without residential use Qualified Code(s): E11.65 - Type 2 diabetes mellitus with hyperglycemia Plan: HgbA1c was at 8.4% when last checked a couple of weeks ago on 03/08/2023 (HgbA1c was at 9.2% back in January 2023 and >14.0% in August 2022) - goal is at least <7.0% Reinforced diabetic diet Continue Lantus 30 units daily at bedtime and Metformin 1000 mg BID; will increase his Trulicity now from 1.5 mg to 3 mg SQ once a week He was seen for diabetic teaching recently and will continue to follow up with diabetes educators, aromatherapist and with endocrinology (Dr. Shaver) as scehduled (3) Paroxysmal atrial fibrillation with rapid ventricular response: Code(s): I48.0 - Paroxysmal atrial fibrillation Plan: Patient currently remains in sinus rhythm - states that he's had no recurrence of his symptoms since his brief hospitalization in October 2021, which was most likely triggered by his multiple drug use at the time Continue Metoprolol 100 mg BID and Diltiazem CD 180 mg QD Continue Eliquis 5 mg BID for thromboembolism prophylaxis Follow up with cardiology as scheduled (4) Lymphedema: Code(s): I89.0 - Lymphedema, not elsewhere classified Plan: Patient is again reminded to try to keep his legs elevated as often as he can to help minimize his edema Losing weight should also help with his swelling although at this time, there appears to be no realistic expectation for this to happen (5) Seizure: Code(s): R56.9 - Unspecified convulsions Plan: No seizure recurrence since his hospitalization back in July 2019 - was most likely brought on by his hyperosmolar coma EEG done at [facility] in July 2019 showed borderline abnormal results and recommended a 24 hour ambulatory EEG for further evaluation Follow up with neurology as scheduled/as needed - it also appears that he has not seen neurology at all in the past couple of years (6) Lumbar degenerative disc disease: Code(s): M51.36 - Other intervertebral disc degeneration, lumbar region Plan: Reinforced activity and weight-lifting restrictions Continue Tramadol 50 mg TID and Lidocaine patches 5% apply 2 patches QD PRN for pain Have offered to refer him to pain management for his back pain and knee pain in the past but patient declined He has also been advised a few times in the past when he asked for Rx that we will not start him on anything other than what he is currently on for pain, especially any opioid Rx, due to his known history of polysubstance abuse (7) Primary osteoarthritis of both knees: Code(s): M17.0 - Bilateral primary osteoarthritis of knee Plan: Continue Tramadol 50 mg TID PRN, Voltaren gel 1% apply PRN and Lidocaine 5% patches 2 patches QD PRN Has received cortisone injections into his knees from [facility] in the past with only slight relief Has apparently not followed up with orthopedics or with rheumatology in a while now and he is encouraged to try to schedule his follow ups with them [facility] (8) Asthma: Code(s): J45.909 - Unspecified asthma, uncomplicated Qualifiers: Asthma severity: mild Asthma persistence: intermittent Asthma complication type: uncomplicated Qualified Code(s): J45.20 - Mild intermittent asthma, uncomplicated Plan: Stable - continue Albuterol HFA 2 inhalations every 6 hours as needed (9) BPH (benign prostatic hyperplasia): Code(s): N40.0 - Benign prostatic hyperplasia without lower urinary tract symptoms Qualifiers: Lower urinary tract symptom presence: symptoms present Lower urinary tract symptom detail: urinary frequency Qualified Code(s): N40.1 - Benign prostatic hyperplasia with lower urinary tract symptoms; R35.0 - Frequency of micturition Plan: Continue Tamsulosin 0.4 mg QD (10) Erectile dysfunction: Code(s): N52.9 - Male erectile dysfunction, unspecified Qualifiers: Erectile dysfunction type: unspecified Qualified Code(s): N52.9 - Male erectile dysfunction, unspecified Plan: Per request, will start him on Sildenafil 50 mg PRN (11) Polysubstance abuse: Code(s): F19.10 - Other psychoactive substance abuse, uncomplicated Plan: Admitted previously to using some heroin but his UDS tested positive for opiates, fentanyl, cocaine and marijuana multiple times last year, most recently in January 2023 - UDS was again positive for opiates, fentanyl and marijuana He was referred to Addiction Medicine for further management at his last visit He has been advised that we are also not going to continue refilling his Tramadol Rx if he continues with his recreational drug use (12) Insomnia: Code(s): G47.00 - Insomnia, unspecified Qualifiers: Insomnia type: unspecified Qualified Code(s): G47.00 - Insomnia, unspecified Plan: Sleep hygiene reinforced Continue Zolpidem 10 mg QD PRN (13) Anxiety: Code(s): F41.9 - Anxiety disorder, unspecified Plan: Continue Buspirone 30 mg TID, Escitalopram 20 mg QD and Hydroxyzine 25 mg TID PRN Follow up with psychiatry as scheduled (14) Depression: Code(s): F32.9 - Major depressive disorder, single episode, unspecified Qualifiers: Depression Type: major depressive disorder Major depression recurrence: recurrent Active/Remission status: currently active Major depression episode severity: unspecified Qualified Code(s): F33.9 - Major depressive disorder, recurrent, unspecified Plan: Continue Escitalopram 20 mg QD and Quetiapine 50 mg Q HS Follow up with psychiatry as scheduled (15) Morbid obesity with BMI of 40.0-44.9, adult: Code(s): E66.01 - Morbid (severe) obesity due to excess calories; Z68.41 - Body mass index [BMI] 40.0-44.9, adult Plan: Reinforced diet; exercise and weight loss are unrealistic expectations with this patient given his overall situation and motivation Plan Follow up in 3 months Orders: Orders Hemoglobin A1c 3 Months E11.9 - Type 2 diabetes mellitus without complications Comprehensive [place]. Panel Fast 3 Months E78.00 - Pure hypercholesterolemia, unspecified TSH reflex Free T4 3 Months E78.00 - Pure hypercholesterolemia, unspecified UA CC w/rflx Micro + Cult 3 Months R30.0 - Dysuria Vitamin D 25-OH Total 3 Months E55.9 - Vitamin D deficiency, unspecified Complete Blood Count Auto Diff 3 Months I10 - Essential (primary) hypertension Lipid Panel 3 Months E78.00 - Pure hypercholesterolemia, unspecified Microalbumin, Random (w Creat) 3 Months E11.9 - Type 2 diabetes mellitus without complications Vitamin B12 and Folate 3 Months E53.8 - Deficiency of other specified B group vitamins Medications: New sildenafil administer 30 minutes to 4 hours before activity 50 mg PO DAILY PRN 10 tabs 0RF sexual activity Changed From dulaglutide (Trulicity) 1.5 mg (0.5 mL) subcut QWEEK 2 mL 5RF To dulaglutide 3 mg (0.5 mL) subcut QWEEK 2 mL 5RF Refilled apixaban (Eliquis) 5 mg PO BID 30 days 60 tabs 2RF lisinopril 30 mg PO DAILY 90 tabs 1RF amlodipine 5 mg PO DAILY 30 days 30 tabs 3RF metoprolol succinate ER 100 mg See Protocol PO DAILY 30 tabs 3RF Coding Level of Care Code Est Pt Level 4 (75502) Diagnoses Benign essential hypertension I10 Type 2 diabetes mellitus with hyperglycemia, without long-term current use of insulin E11.65 Diabetes mellitus residential insulin use: without residential use Paroxysmal atrial fibrillation with rapid ventricular response I48.0 Lymphedema I89.0 Seizure R56.9 Lumbar degenerative disc disease M51.36 Primary osteoarthritis of both knees M17.0 Mild intermittent asthma without complication J45.20 Asthma severity: mild Asthma persistence: intermittent Asthma complication type: uncomplicated Benign prostatic hyperplasia with urinary frequency N40.1; R35.0 Lower urinary tract symptom presence: symptoms present Lower urinary tract symptom detail: urinary frequency Erectile dysfunction, unspecified erectile dysfunction type N52.9 Erectile dysfunction type: unspecified Polysubstance abuse F19.10 Insomnia, unspecified type G47.00 Insomnia type: unspecified Anxiety F41.9 Episode of recurrent major depressive disorder, unspecified depression episode severity F33.9 Depression Type: major depressive disorder Major depression recurrence: recurrent Active/Remission status: currently active Major depression episode severity: unspecified Morbid obesity with BMI of 40.0-44.9, adult E66.01; Z68.41
[2023-03-19 14:20] VITALS: BP 122/68; PULSE 90; O2SAT 97; BMI 44.8
== END 2023-03-19 17:15 | disposition home or self-care (01) ==
PROVIDERS: PCP Internal Medicine; Visit Provider Internal Medicine
DX: E11.65 Type 2 diabetes mellitus with hyperglycemia (principal); I48.0 Paroxysmal atrial fibrillation; R56.9 Unspecified convulsions; F19.10 Other psychoactive substance abuse, uncomplicated; F33.9 Major depressive disorder, recurrent, unspecified; E66.01 Morbid (severe) obesity due to excess calories; Z68.41 Body mass index [BMI] 40.0-44.9, adult; I10 Essential (primary) hypertension; M51.36 Other intervertebral disc degeneration, lumbar region; I89.0 Lymphedema, not elsewhere classified; M17.0 Bilateral primary osteoarthritis of knee; J45.20 Mild intermittent asthma, uncomplicated
CPT/HCPCS: 99214

== ENCOUNTER 2023-04-09 14:07 | Outpatient (AMB) | payer OTHER, SELFPAY ==
--- NOTE | 2023-04-09 14:21 | A.OFFVIS_ITS ---
Intake Intake Visit Reasons: DM/CONFIRMED Behavioral Intervention Specialist Required: No Allergies Penicillins [PENICILLINS] Allergy (Unknown, Verified 03/19/23 17:07) RASH HPI Comprehensive Diabetes Asmnt Most Recent Diabetes Results: Hemoglobin A1c 8.4 % 10/01/19 Microalb/Creat Ratio 57.5 ug/mg cr (<30) H 03/08/23 Cholesterol 185 mg/dL 08/16/22 HDL Cholesterol 52 mg/dL 08/16/22 Triglycerides 144 mg/dL 08/16/22 Creatinine 0.82 mg/dL (0.5-1.4) 01/25/23 Blood Urea Nitrogen 11 mg/dL (9-16) 01/23/23 Sodium 136 mmol/L (135-145) 01/23/23 Potassium 3.6 mmol/L (3.3-5.1) 01/23/23 Chloride 103 mmol/L (96-108) 01/23/23 Carbon Dioxide 26 mmol/L (22-29) 01/23/23 Calcium 8.5 mg/dL (8.4-10.2) 01/23/23 AST 16 U/L (5-37) 01/23/23 ALT 14 U/L (0-40) 01/23/23 Total Protein 7.0 g/dL (6.5-8.0) 01/23/23 Albumin 3.7 g/dL (3.5-5.0) 01/23/23 [facility] Medical History (Updated 03/20/23 @ 04:46 by Julio Carter MD) Erectile dysfunction Polysubstance abuse Paroxysmal atrial fibrillation with rapid ventricular response Lumbar degenerative disc disease Substance abuse Diabetes Depression Overactive bladder Arthritis BPH (benign prostatic hyperplasia) Asthma Seizure Morbid obesity with BMI of 40.0-44.9, adult Benign essential hypertension Insomnia Primary osteoarthritis of both knees Anxiety Family history of thyroid disorder Type 2 diabetes mellitus with hyperglycemia Surgical History No history of previous surgery Family History Father ETOH abuse Mother Diabetes Arthritis of knee Hypertension Other Mental health problem Substance abuse Social History Household Members: Other Household Members Other:: 2 Housing: House Housing Other:: Room Do you presently have visiting nurse or other home services: No Alcohol intake: never Comment: refused bed alarm Patient Tobacco Use Status: Never used Tobacco e-Cigarette/Vaping Use: Never Used Second Hand Smoke Exposure: No Substance Use Type: Heroin and Marijuana Advance Directives Date on File: 02/23/22 service: No Current occupational status: unemployed and disabled Cognitive needs: No Hearing needs: No Vision needs: No Assessment & Plan Assessment & Plan (1) Diabetes: Code(s): E11.9 - Type 2 diabetes mellitus without complications Plan: Learning objectives: The patient was provided with verbal and written education on the following topics as outlined below. Assess patient education level/literacy/barriers Patient questions/concerns, there is a discrepancy in Lantus dose, patient does not know whether to take 30 units or 50 units. Reviewed provider notes, PCP has discrepancy in dose message sent to PCP to clarify. Were unable to review patient's blood glucose meter due to incorrect date and time. The patient met all learning objectives and was able to verbalize understanding and provide teach back of education topics discussed . The patient was provided with the opportunity to ask questions and all questions were answered. Topics covered in today?s session included: Medications (If applicable) * Name of medication? * Dosing/administration instructions? * Mechanism of action? * Potential side effects? * Potential adverse reaction and appropriate treatment? * Review onset, peak, duration Assess for concerns re: insurance coverage, cost, barriers to compliance Insulin/Injectables (If applicable) * Storage/care of insulin?? * Injection sites? * Site rotation? * Onset, peak, duration * Drawing up insulin? * Injecting insulin/other injectables? * Sharps disposal Continuous blood glucose monitoring (if applicable) Hypoglycemia and Hyperglycemia * Signs and symptoms? * Causes?? * Treatment? * Preventing hypoglycemia? * When to seek medical attention * Blood glucose targets and how you feel when your blood glucose is in and out of your target ranges. * Monitoring and knowing your A1C. * What can make blood glucose go up and down and preventing high and low blood glucose. * Review of blood sugar targets in expected goal range and outside of expected g oal range. * Problem solving and preventing hyper/hypoglycemia. * Sick day management of diabetes. * Using blood sugar results in decision making process in managing diabetes. ?Patient was receptive to information provided and participated in the discussion. Asked?appropriate questions and demonstrated good understanding of the topics discussed.? ? Comprehension of Instructions: Fair Readiness to make changes:? Contemplation How confident they feel about making changes: Poor Patient Instructions: I will contact patient when receive clarification on Lantus order Patient will follow-up with fur scraper in 1 month Coding Level of Care Code Est Pt Level 1 (07183) Diagnoses Diabetes E11.9
== END 2023-04-09 14:51 | disposition home or self-care (01) ==
PROVIDERS: PCP Internal Medicine; Visit Provider Registered Nurse Diabetes Educator
DX: E11.9 Type 2 diabetes mellitus without complications (principal)

== ENCOUNTER → 2023-04-09 14:07 | Outpatient (BNVA) | payer OTHER, SELFPAY | PROVIDERS: PCP Internal Medicine; Visit Provider Registered Nurse Diabetes Educator | DX: E11.9 Type 2 diabetes mellitus without complications (principal) | CPT/HCPCS: 99211 ==

== ENCOUNTER 2023-05-10 14:58 | Outpatient (AMB) | payer OTHER, SELFPAY ==
--- NOTE | 2023-05-10 15:14 | A.OFFVIS_ITS ---
Intake Intake Visit Reasons: DM Allergies Penicillins [PENICILLINS] Allergy (Unknown, Verified 03/19/23 17:07) RASH HPI Comprehensive Diabetes Asmnt Most Recent Diabetes Results: Hemoglobin A1c 8.4 % 10/01/19 Microalb/Creat Ratio 57.5 ug/mg cr (<30) H 03/08/23 Cholesterol 185 mg/dL 08/16/22 HDL Cholesterol 52 mg/dL 08/16/22 Triglycerides 144 mg/dL 08/16/22 Creatinine 0.82 mg/dL (0.5-1.4) 01/25/23 Blood Urea Nitrogen 11 mg/dL (9-16) 01/23/23 Sodium 136 mmol/L (135-145) 01/23/23 Potassium 3.6 mmol/L (3.3-5.1) 01/23/23 Chloride 103 mmol/L (96-108) 01/23/23 Carbon Dioxide 26 mmol/L (22-29) 01/23/23 Calcium 8.5 mg/dL (8.4-10.2) 01/23/23 AST 16 U/L (5-37) 01/23/23 ALT 14 U/L (0-40) 01/23/23 Total Protein 7.0 g/dL (6.5-8.0) 01/23/23 Albumin 3.7 g/dL (3.5-5.0) 01/23/23 [facility] Medical History (Updated 03/20/23 @ 04:46 by Julio Carter MD) Erectile dysfunction Polysubstance abuse Paroxysmal atrial fibrillation with rapid ventricular response Lumbar degenerative disc disease Substance abuse Diabetes Depression Overactive bladder Arthritis BPH (benign prostatic hyperplasia) Asthma Seizure Morbid obesity with BMI of 40.0-44.9, adult Benign essential hypertension Insomnia Primary osteoarthritis of both knees Anxiety Family history of thyroid disorder Type 2 diabetes mellitus with hyperglycemia Surgical History No history of previous surgery Family History Father ETOH abuse Mother Diabetes Arthritis of knee Hypertension Other Mental health problem Substance abuse Social History Household Members: Other Household Members Other:: 2 Housing: House Housing Other:: Room Do you presently have visiting nurse or other home services: No Alcohol intake: never Comment: refused bed alarm Patient Tobacco Use Status: Never used Tobacco e-Cigarette/Vaping Use: Never Used Second Hand Smoke Exposure: No Substance Use Type: Heroin and Marijuana Advance Directives Date on File: 02/23/22 service: No Current occupational status: unemployed and disabled Cognitive needs: No Hearing needs: No Vision needs: No Assessment & Plan Assessment & Plan (1) Type 2 diabetes mellitus with hyperglycemia: Comment: Admitted for [facility] in July 2019 Code(s): E11.65 - Type 2 diabetes mellitus with hyperglycemia Qualifiers: Diabetes mellitus terminal worker insulin use: without terminal worker use Qualified Code(s): E11.65 - Type 2 diabetes mellitus with hyperglycemia Plan: Diabetes self-management education and support participation record Assessment/scale: 1= needs instructed? 2= needs review? 3= comprehend keep point? 4= demonstrates understanding/ competent? NC= Not Covered Topics Learning Objective: Initial visit Initial or post srvc Initial or post srvc Initial or post srvc Initial or post srvc Initial or post srvc Post srvc Comments Pre Edu-assessment/plan Outcome or reassess Outcome or reassess Outcome or reassess Outcome or reassess Outcome or reassess Outcome or reassess Diabetes pathophysiology 1 2 Healthy eating 1 2 Being active 1 2 Taking medication 1 Monitoring glucose 1 2 3 Acute complication 1 2 Chronic complicated 1 2 Lifestyle and healthy coping 1 2 Diabetes distress in support 1 2 ?Diabetes pathophysiology: ?Defined diabetes med identify own type of diabetes; list 3 options for treating diabetes Healthy eating: ?Described effect of type, amount and ?timing of food on blood glucose; list 3 methods for planning meal Being active: ?State effect of exercise on blood glucose level Taking medication: ?State effect of diabetes medications on diabetes; name diabetes medications taking, action and side effects Monitoring glucose: ?Identify recommended blood glucose targets and personal target Acute complication: ?List symptoms and treatment of hyper and hypoglycemia, DKA, sick day guidelines and guidelines for severe weather or situations of crisis and diabetes supply manage Chronic complication: ?To find the relationship of blood glucose levels to long- term complications of diabetes in screening and preventative measures Lifestyle and healthy coping: ?Described lifestyle and healthy coping strategies to rule out diabetes self-management Diabetes to stress and support: ?Recognize Diabetes to stress and be able to identified support options Learning objectives: The patient was provided with verbal and written education on the following topics as outlined below. The patient met all learning objectives and was able to verbalize understanding and provide teach back of education topics discussed . The patient was provided with the opportunity to ask questions and all questions were answered. Patient Assessment Assess patient education level/literacy/barriers Patient questions/concerns, patient reports he is taking Lantus 50 units daily. Patient is not interested continuous glucose sensor. Patient brought meter to visit, but there were no glucose numbers on meter. Patient is overdue for eye exam, he also requested information regarding podiatry Patient given list insulation worker furnace installer's and podiatrists in the [facility] Medications (If applicable) * Name of medication * Dosing/administration instructions * Mechanism of action * Potential side effects * Potential adverse reaction and appropriate treatment * Review onset, peak, duration Assess for concerns re: insurance coverage, cost, barriers to compliance Insulin/Injectables (If applicable) * Storage/care of insulin * Injection sites * Site rotation * Onset, peak, duration * Drawing up insulin * Injecting insulin/other injectables * Sharps disposal Continuous blood glucose monitoring (if applicable) Hypoglycemia and Hyperglycemia * Signs and symptoms * Causes * Treatment * Preventing hypoglycemia * When to seek medical attention Medical alert bracelet Lifestyle * Work * Travel * Stress management * Problem solving Know your goals * A1C * Blood sugar targets * Blood pressure * Cholesterol/LDL Urine microalbumin New Goal:? Schedule diabetes eye appointment Educational Materials: The patient was provided with the following written educational materials: ADCES 7 self-care behaviors reducing risks handout Patient Response to instructions: Comprehension of Instructions: fair Readiness to make changes: Contemplation How confident they feel about making changes: poor Patient Instructions: Include regular daily activity. ADA recommends 30 minutes of exercise 5 days a week. Weight loss talk to PCP or Metal Window Screen Assembler before starting new plan. Test blood sugar as directed; Fasting and 2hpp largest meal. Watch trends in results. Utilize results and to assess how food, physical activity and medications affect blood sugar results. Bring glucometer or CGM to next visit. Be knowledgeable about diabetes medication, its action, side effects, efficacy, toxicity, prescribed dosage, appropriate timing and frequency of administration, effect of missed and delayed doses and instructions for storage, travel and safety. Problem solving techniques to monitor hypo/hyperglycemia episodes and treatments. Reduce risk reduction behaviors, smoking cessation, regular eye, foot and dental examinations. Patient instructed to follow-up with Diabetes Education nurse in 3 months Coding Level of Care Code Est Pt Level 1 (01622) Diagnoses Type 2 diabetes mellitus with hyperglycemia, without long-term current use of insulin E11.65 Diabetes mellitus correction insulin use: without correction use
== END 2023-05-10 15:38 | disposition home or self-care (01) ==
PROVIDERS: PCP Internal Medicine; Visit Provider Registered Nurse Diabetes Educator
DX: E11.65 Type 2 diabetes mellitus with hyperglycemia (principal)

== ENCOUNTER → 2023-05-10 14:58 | Outpatient (BNVA) | payer OTHER, SELFPAY | PROVIDERS: PCP Internal Medicine; Visit Provider Registered Nurse Diabetes Educator | DX: E11.65 Type 2 diabetes mellitus with hyperglycemia (principal); Z79.4 Long term (current) use of insulin | CPT/HCPCS: 99211 ==

== ENCOUNTER 2023-06-12 16:11 | Inpatient (IN) | payer OTHER, SELFPAY ==
[2023-06-12 16:21] VITALS: BP 150/98; BP 153/92; PULSE 92; PULSE 96; RESP 16; TEMP 36.6; O2SAT 100; O2SAT 97; BMI 33.0
[2023-06-12 16:41] VITALS: RESP 16
[2023-06-12 16:56] LABS: MANUAL DIFF FLAG NO
[2023-06-12 16:58] LABS: Basophils Percent Auto 0.1 % (0-2); Eosinophils Percent Auto 0.2 % (0-4); Hematocrit 47.3 % (42.0-52.0); Hemoglobin 16.3 g/dl (14.0-18.0); Imm Gran Abs Auto 0.04 X10*3/uL (0.00-0.03); Imm Gran Pct Auto 0.4 % (0.0-0.4); Lymphocytes Absolute Auto 1.4 X10*3/uL (1.2-4.9); Mean Corpuscular HGB Conc 34.5 g/dl (31.0-36.0); Mean Corpuscular Hemoglobin 29.3 pg (27.0-33.0); Mean Corpuscular Volume 85.1 fL (80.0-98.0); Mean Platelet Volume 9.9 fL (9.4-12.4); Monocytes Absolute Auto 0.5 X10*3/uL (0.1-1.2); Monocytes Percent Auto 4.3 % (2-11); Neutrophils Absolute Auto 8.7 x10*3/uL (2.0-8.3); Platelet Count 334 X10*3/uL (160-400); Red Blood Count 5.56 X10*6/uL (4.60-5.80); Red Cell Distribution Width 12.6 % (11.0-16.0); White Blood Count 10.6 X10*3/uL (4.8-10.8)
[2023-06-12 17:02] LABS: Appearance Urine Clear; Color Urine Yellow; Glucose Urine UA >=1000 mg/dL (Negative); Leukocyte Esterase Urine Negative (Negative); Nitrite Urine Negative (Negative); PH 5.5 (5.0-9.0); Specific Gravity - Urine >= 1.030 (1.005-1.025); UMIC TRIGGER UACC YES; Urine Blood Negative (Negative); Urine Ketones Negative (Negative); Urine Protein Negative (Neg-Trace)
[2023-06-12 17:07] LABS: Amphetamine Screen Urine Not Detected (Not Detect); Barbiturates, Urine Not Detected (Not Detect); Benzodiazepines Screen Urine Not Detected (Not Detect); Cannabinoid Screen Urine POSITIVE (Not Detect); Cocaine Screen Urine POSITIVE (Not Detect); Fentanyl, urine POSITIVE (Not Detect); Opiate Screen Urine POSITIVE (Not Detect); Phencyclidine Screen Urine Not Detected (Not Detect)
[2023-06-12 17:20] LABS: COVID-19 Test Negative (Negative); IDNOW Serial# 152EDE1D
--- NOTE | 2023-06-12 17:27 | ED_ITS ---
HPI - Psych General Chief Complaint: Psychiatric Symptoms Stated Complaint: crisis, audible hallucinations Time Seen by Provider: 06/12/23 16:16 History of Present Illness HPI Narrative: Patient is a 53-year-old male has a history of bipolar is currently on BuSpar. Claims compliance with medications. Patient used cocaine, heroin, marijuana then have hallucination telling him to jump off the bridge. Patient did not act on these messages. Was sent to the emergency department for further evaluation. He stated that he does not want to kill himself. He use all 3 drugs throughout the day today. Related Data Home Medications Medication Instructions Recorded Confirmed buspirone 30 mg tablet 30 mg PO BID 06/12/23 06/12/23 dulaglutide 3 mg/0.5 mL 3 mg subcut QWEEK 06/12/23 06/12/23 subcutaneous pen injector Previous Rx's Medication Instructions Recorded escitalopram oxalate 20 mg tablet 20 mg PO DAILY #30 tabs 12/05/21 lidocaine 5 % topical patch 2 patch topical DAILY PRN pain #60 01/29/23 ea apixaban 5 mg tablet (Eliquis) 5 mg PO BID 30 days #60 tabs 03/19/23 lisinopril 30 mg tablet 30 mg PO DAILY #90 tabs 03/19/23 albuterol sulfate 90 mcg/actuation 2 puff PO Q8H PRN for wheezing #18 05/04/23 aerosol inhaler (Ventolin HFA) ea tramadol 50 mg tablet 50 mg PO TID PRN pain 30 days #90 06/04/23 tabs zolpidem 10 mg tablet 10 mg PO BEDTIME PRN insomnia 30 06/04/23 days #30 tabs Allergies Allergy/AdvReac Type Severity Reaction Status Date / Time Penicillins [PENICILLINS] Allergy Unknown RASH Verified 06/12/23 17:27 Review of Systems 2 Review of Systems: No fever no chills no chest pain or shortness of breath Yes all other systems are reviewed and are negative [facility] Past Medical History Attestation statement: The following information was validated with the patient. Medical History Erectile dysfunction Polysubstance abuse Paroxysmal atrial fibrillation with rapid ventricular response Lumbar degenerative disc disease Substance abuse Diabetes Depression Overactive bladder Arthritis BPH (benign prostatic hyperplasia) Asthma Seizure Morbid obesity with BMI of 40.0-44.9, adult Benign essential hypertension Insomnia Primary osteoarthritis of both knees Anxiety Family history of thyroid disorder Type 2 diabetes mellitus with hyperglycemia Surgical History No history of previous surgery Family History Family History Father ETOH abuse Mother Diabetes Arthritis of knee Hypertension Other Mental health problem Substance abuse Social History Social History Household Members: Other Household Members Other:: 2 Housing: House Housing Other:: Room Do you presently have visiting nurse or other home services: No Alcohol intake: current Alcohol intake frequency: a few times a month Comment: refused bed alarm Patient Tobacco Use Status: Never used Tobacco Smoked in Last 30 Days: Yes e-Cigarette/Vaping Use: Never Used Second Hand Smoke Exposure: No Use of substances other than those prescribed or required for medical reasons: Yes Substance Use Type: Heroin Substance Use Frequency Other:: once every few months Last Used Substance: Days (ago) Any prior treatment program specific to substance use: No Advance Directives: Yes Advance Directives on File: Yes Advance Directives Date on File: 02/23/22 service: No Current occupational status: unemployed and disabled Cognitive needs: No Hearing needs: No Vision needs: No Physical Exam 2 Vital Signs: Vital Signs: Last Vital Signs Temp 97.9 F 06/12/23 16:21 Pulse 92 06/12/23 16:21 Resp 16 06/12/23 16:41 BP 153/92 H 06/12/23 16:21 Pulse Ox 97 06/12/23 16:21 O2 Del Method Room Air 06/12/23 16:21 BMI result Body Mass Index 33.0 Appearance: Alert. Oriented X3. No acute distress. Eyes: Pupils equal, round and reactive to light. ENT: Pharynx normal. Neck: Normal inspection. Neck supple. No lymph nodes noted. No crepitus CVS: Normal heart rate and rhythm. Pulses normal. Normal S1 and S2 Respiratory: No respiratory distress. Breath sounds normal. No Wheezing. No rales Abdomen: Soft and nontender. No rigidity. No distention. good BS x4 Skin: Skin warm and dry. Normal skin color. Normal skin turgor. Extremities: No lower extremity edema. Neurovascular intact to all extremities. No Lacerations. No Rash Neuro: Oriented X 3. No motor deficit. No sensory deficit. Moving all extermities. No slurred speech. Cranial nerves grossly intact Medications Administered Generic Name Dose Route Start Last Admin Trade Name Freq PRN Reason Stop Dose Admin Apixaban 5 mg 06/12/23 21:00 06/12/23 21:41 Apixaban 5 Mg Tablet PO 5 mg BID SCOTTY Administration Buspirone HCl 30 mg 06/12/23 21:00 06/12/23 21:41 Buspirone Hcl 10 Mg Tablet PO 30 mg BID SCOTTY Administration Lidocaine 2 patch 06/12/23 21:32 06/12/23 21:41 Lidocaine 4 % Patch Adh..Patch TRANSDERMA 2 patch DAILY PRN Administration pain Zolpidem Tartrate 10 mg 06/12/23 20:45 06/12/23 21:42 Zolpidem Tartrate 5 Mg Tablet PO 10 mg BEDTIME PRN Administration insomnia Discontinued Medications Generic Name Dose Route Start Last Admin Trade Name Freq PRN Reason Stop Dose Admin Insulin Human Lispro 5 unit 06/12/23 17:36 06/12/23 18:46 Insulin Lispro 100 Unit/Ml 3 Ml Vial SUBCUT 06/12/23 17:37 5 unit ONCE ONE Administration Insulin Human Lispro 5 unit 06/12/23 21:16 06/12/23 21:27 Insulin Lispro 100 Unit/Ml 3 Ml Vial SUBCUT 06/12/23 21:17 5 unit ONCE ONE Administration Insulin Human Lispro 5 unit 06/12/23 21:25 06/12/23 21:27 Insulin Lispro 100 Unit/Ml 3 Ml Vial SUBCUT 06/12/23 21:26 5 unit ONCE ONE Administration Medical Decision Making Medical Decision Making [facility] Narrative: Patient is 53 years old presented today with having suicidal ideation after using multiple recreational drugs having a history of bipolar. Will get crisis evaluate patient. Positive polysubstance abuse. Patient's sugar has been elevated. Will give doses lispro insulin. After the 1st dose patient unfortunately had some dinner that included joie taj. It was subsequently recorded is over 300 again. Given additional insulin. Sugars down again. Will monitor carefully. No distress. Differential Diagnosis Differential Diagnoses: The differential diagnosis associated with the presentation includes Polysubstance abuse, diabetes Admission/Observation Consideration of admission/observation: Escalation of care including admission/observation considered Consult Healthcare Provider Management of the patient was discussed with: Behavioral Health Provider (Crisis consulted) Lab Data MDM Lab Attestation statement: I reviewed the patient's lab results. 06/12/23 16:47 06/12/23 16:47 Labs: Lab Results 06/12/23 06/12/23 06/12/23 Range/Units 16:47 21:07 21:11 WBC 10.6 (4.8-10.8) X10*3/uL RBC 5.56 (4.60-5.80) X10*6/uL Hgb 16.3 (14.0-18.0) g/dl Hct 47.3 (42.0-52.0) % MCV 85.1 (80.0-98.0) fL MCH 29.3 (27.0-33.0) pg MCHC 34.5 (31.0-36.0) g/dl RDW 12.6 (11.0-16.0) % Plt Count 334 (160-400) X10*3/uL MPV 9.9 (9.4-12.4) fL Immature Gran % (Auto) 0.4 (0.0-0.4) % Neut % (Auto) 82.0 H (45-73) % Lymph % (Auto) 13.0 L (20-40) % [place] % (Auto) 4.3 (2-11) % Eos % (Auto) 0.2 (0-4) % Baso % (Auto) 0.1 (0-2) % Lymph # (Auto) 1.4 (1.2-4.9) X10*3/uL [place] # (Auto) 0.5 (0.1-1.2) X10*3/uL Eos # (Auto) 0.0 (0.0-0.4) X10*3/uL Baso # (Auto) 0.0 (0.0-0.2) X10*3/uL Abs Immat Gran (auto) 0.04 H (0.00-0.03) X10*3/uL Absolute Neuts (auto) 8.7 H (2.0-8.3) x10*3/uL Absolute Nucleated RBC 0.000 (0.0-0.012) X10*3/uL Nucleated RBC % (auto) 0.0 (0.0-0.2) /100WBC Sodium 137 (135-145) mmol/L Potassium 4.3 (3.3-5.1) mmol/L Chloride 105 (96-108) mmol/L Carbon Dioxide 24 (22-29) mmol/L Anion Gap 12 (12-20) BUN 18 H (9-16) mg/dL Creatinine 1.31 (0.5-1.4) mg/dL Estim Creat Clear Calc 73.5 Estimated GFR 58 POC Glucose 449 H* 432 H* (60-115) mg/dL Random Glucose 377 H* (60-115) mg/dL Calcium 9.9 D (8.4-10.2) mg/dL Total Bilirubin 0.5 (0.0-1.0) mg/dL AST 30 (5-37) U/L ALT 56 H (0-40) U/L Alkaline Phosphatase 114 (39-117) U/L Total Protein 8.0 (6.5-8.0) g/dL Albumin 4.3 (3.5-5.0) g/dL Urine Color Yellow Urine Appearance Clear Urine pH 5.5 (5.0-9.0) Ur Specific Sheldon >= 1.030 H (1.005-1.025) Urine Protein Negative (Neg-Trace) mg/dL Urine Glucose (UA) >=1000 H (Negative) mg/dL Urine Ketones Negative (Negative) mg/dL Urine Blood Negative (Negative) Urine Nitrite Negative (Negative) Ur Leukocyte Esterase Negative (Negative) Urine RBC 0-2 (0-2) /HPF Urine WBC 0-5 (0-5) /HPF Ur Squamous Epith Cells 0-2 (0-2) /HPF Urine Bacteria None Seen (None Seen) Hyaline Casts 0-2 (0-2) /LPF Urine Opiates Screen POSITIVE H (Not Detect) Urine Fentanyl Screen POSITIVE H (Not Detect) Ur Barbiturates Screen Not Detected (Not Detect) Ur Phencyclidine Scrn Not Detected (Not Detect) Ur Amphetamines Screen Not Detected (Not Detect) U Benzodiazepines Scrn Not Detected (Not Detect) Urine Cocaine Screen POSITIVE H (Not Detect) U Marijuana (THC) Screen POSITIVE H (Not Detect) Ethyl Alcohol < 10 mg/dL COVID-19 (DG) Negative (Negative) COVID-19 Clin Com See Note 06/12/23 Range/Units 22:11 WBC (4.8-10.8) X10*3/uL RBC (4.60-5.80) X10*6/uL Hgb (14.0-18.0) g/dl Hct (42.0-52.0) % MCV (80.0-98.0) fL MCH (27.0-33.0) pg MCHC (31.0-36.0) g/dl RDW (11.0-16.0) % Plt Count (160-400) X10*3/uL MPV (9.4-12.4) fL Immature Gran % (Auto) (0.0-0.4) % Neut % (Auto) (45-73) % Lymph % (Auto) (20-40) % Jun[place] % (Auto) (2-11) % Eos % (Auto) (0-4) % Baso % (Auto) (0-2) % Lymph # (Auto) (1.2-4.9) X10*3/uL [place] # (Auto) (0.1-1.2) X10*3/uL Eos # (Auto) (0.0-0.4) X10*3/uL Baso # (Auto) (0.0-0.2) X10*3/uL Abs Immat Gran (auto) (0.00-0.03) X10*3/uL Absolute Neuts (auto) (2.0-8.3) x10*3/uL Absolute Nucleated RBC (0.0-0.012) X10*3/uL Nucleated RBC % (auto) (0.0-0.2) /100WBC Sodium (135-145) mmol/L Potassium (3.3-5.1) mmol/L Chloride (96-108) mmol/L Carbon Dioxide (22-29) mmol/L Anion Gap (12-20) BUN (9-16) mg/dL Creatinine (0.5-1.4) mg/dL Estim Creat Clear Calc Estimated GFR POC Glucose 381 H* (60-115) mg/dL Random Glucose (60-115) mg/dL Calcium (8.4-10.2) mg/dL Total Bilirubin (0.0-1.0) mg/dL AST (5-37) U/L ALT (0-40) U/L Alkaline Phosphatase (39-117) U/L Total Protein (6.5-8.0) g/dL Albumin (3.5-5.0) g/dL Urine Color Urine Appearance Urine pH (5.0-9.0) Ur Specific Sheldon (1.005-1.025) Urine Protein (Neg-Trace) mg/dL Urine Glucose (UA) (Negative) mg/dL Urine Ketones (Negative) mg/dL Urine Blood (Negative) Urine Nitrite (Negative) Ur Leukocyte Esterase (Negative) Urine RBC (0-2) /HPF Urine WBC (0-5) /HPF Ur Squamous Epith Cells (0-2) /HPF Urine Bacteria (None Seen) Hyaline Casts (0-2) /LPF Urine Opiates Screen (Not Detect) Urine Fentanyl Screen (Not Detect) Ur Barbiturates Screen (Not Detect) Ur Phencyclidine Scrn (Not Detect) Ur Amphetamines Screen (Not Detect) U Benzodiazepines Scrn (Not Detect) Urine Cocaine Screen (Not Detect) U Marijuana (THC) Screen (Not Detect) Ethyl Alcohol mg/dL COVID-19 (DG) (Negative) COVID-19 Clin Com Independent Historian Clinical information obtained from an independent historian. History obtained from or confirmed by: EMS External Record Review External record reviewed: Inpatient record and Prior outpatient labs Chronic Conditions Patient?s care impacted by: Diabetes Social Determinants Patient?s care significantly limited by Social Determinants of Health including: Alcoholism and drug addiction in family Discharge Plan Discharge Clinical Impression: Polysubstance abuse Patient Disposition: Still a Patient Prescriptions: No Action escitalopram oxalate 20 mg tablet 20 mg PO DAILY Qty: 30 1RF lidocaine 5 % adhesive patch,medicated 2 patch topical DAILY PRN (Reason: pain) Qty: 60 5RF Rx Instructions: leave on most painful area for up to 12 hrs. keep off for 12 hrs albuterol sulfate [Ventolin HFA] 90 mcg/actuation HFA aerosol inhaler 2 puff PO Q8H PRN (Reason: for wheezing) Qty: 18 3RF tramadol 50 mg tablet 50 mg PO TID PRN (Reason: pain) 30 Days Qty: 90 0RF zolpidem 10 mg tablet 10 mg PO BEDTIME PRN (Reason: insomnia) 30 Days Qty: 30 1RF buspirone 30 mg tablet 30 mg PO BID Trulicity 3 mg/0.5 mL pen injector 3 mg subcut QWEEK Rx Instructions: QMONDAY Eliquis 5 mg tablet 5 mg PO BID 30 Days Qty: 60 2RF Rx Instructions: x30 dats lisinopril 30 mg tablet 30 mg PO DAILY Qty: 90 1RF Interventions: Maybee-Suicide Risk Severity Scale Last Done: 06/12/23 16:37
[2023-06-12 17:30] LABS: Alanine Aminotransferase 56 U/L (0-40); Albumin Level 4.3 g/dL (3.5-5.0); Alkaline Phosphatase 114 U/L (39-117); Anion Gap 12 (12-20); Aspartate Amino Transferase 30 U/L (5-37); Bilirubin Total 0.5 mg/dL (0.0-1.0); Blood Urea Nitrogen 18 mg/dL (9-16); Calcium 9.9 mg/dL (8.4-10.2); Carbon Dioxide 24 mmol/L (22-29); Chloride 105 mmol/L (96-108); Creatinine Clr Calc Pharmacy 73.5; Estimated Glomerular Filt Rate 58; Ethanol < 10 mg/dL; Glucose Random 377 mg/dL (60-115); Potassium 4.3 mmol/L (3.3-5.1); Sodium 137 mmol/L (135-145)
[2023-06-12 17:43] LABS: Bacteria Urine None Seen (None Seen); Hyaline Casts Urine 0-2 /LPF (0-2); RBC Urine 0-2 /HPF (0-2); Squamous Epithelial Cell Urine 0-2 /HPF (0-2); WBC Urine 0-5 /HPF (0-5)
[2023-06-12] MEDS: Insulin Lispro 100 UNIT/ML 3 ML VIAL SUBCUT ×3 (18:46→21:27)
[2023-06-12 21:15] LABS: Glucose, Whole Blood 432 mg/dL (60-115)
[2023-06-12 21:15] LABS: Glucose, Whole Blood 449 mg/dL (60-115)
[2023-06-12] MEDS: Apixaban 5 MG TABLET PO (21:41)
[2023-06-12] MEDS: Lidocaine 4 % Patch ADH..PATCH 2 PATCH TRANSDERMA (21:41)
[2023-06-12] MEDS: busPIRone HCl 10 MG TABLET 30 MG PO (21:41)
[2023-06-12] MEDS: Zolpidem Tartrate 5 MG TABLET 10 MG PO (21:42)
[2023-06-12 22:20] LABS: Glucose, Whole Blood 381 mg/dL (60-115)
--- NOTE | 2023-06-13 | ECG_ITS ---
Test Reason : QTC Interval Blood Pressure : / mmHG Vent. Rate : 089 BPM Atrial Rate : 089 BPM P-R Int : 164 ms QRS Dur : 114 ms QT Int : 372 ms P-R-T Axes : 065 059 -21 degrees QTc Int : 452 ms Normal sinus rhythm with sinus arrhythmia T wave abnormality, consider inferior ischemia Abnormal ECG When compared with ECG of 07-MAR-2022 15:59, Vent. rate has decreased BY [address] no longer depressed in Inferior leads ST no longer depressed in Anterolateral leads T wave inversion no longer evident in Anterolateral leads Referred By: Yasir Pagan Electronically Signed By:SAMIRA TAYLOR MD
[2023-06-13 00:23] LABS: Glucose, Whole Blood 294 mg/dL (60-115)
[2023-06-13 00:23] LABS: Glucose, Whole Blood 270 mg/dL (60-115)
[2023-06-13 01:24] LABS: Glucose, Whole Blood 251 mg/dL (60-115)
[2023-06-13 06:26] VITALS: BP 148/82; PULSE 84; RESP 18; TEMP 36.9; O2SAT 98
[2023-06-13 06:26] LABS: Glucose, Whole Blood 270 mg/dL (60-115)
--- NOTE | 2023-06-13 06:41 | PC.NURSE ---
Addendum entered by Lona Scruggs 06/13/23 06:43: Pt also noted that he does take lantus qbedtime although no recent order and it appears pt had other medication refilled. PT adamant with script so added to his med rec. Original Note: Late entry. PT found to be hyperglycemic, notified [facility]. administered medications as per may. PT report his poc is never under 180 and refused q1 poc checks after midnight. Pt on trulicity at home but has not refilled script so he does not have access to have it brought in. Per Dr. Springer Plan to is to check pt QACHS, and to provide insulin coverage as needed but is not putting in sliding scale insulin. PT endorsing si thought states he feels like he doesnt want to live. Notes that 14 year old daughter has been depressed and this is caused him anxiety and depression. . Awaiting care team consult
--- NOTE | 2023-06-13 06:50 | PC.NURSE ---
incidentally noticed that care team consult was not ordered for pt. Placed order as per protocol
[2023-06-13] MEDS: Insulin Lispro 100 UNIT/ML 3 ML VIAL SUBCUT ×3 (07:17→20:53)
[2023-06-13 08:29] VITALS: BP 171/89; PULSE 92; RESP 20; TEMP 37.3; O2SAT 97
[2023-06-13] MEDS: busPIRone HCl 10 MG TABLET 30 MG PO (08:30)
[2023-06-13] MEDS: Escitalopram Oxalate 20 MG TABLET PO (08:30)
[2023-06-13] MEDS: lisinopriL 10 MG TABLET 30 MG PO (08:30)
[2023-06-13] MEDS: Apixaban 5 MG TABLET PO (08:31)
[2023-06-13] MEDS: LORazepam 1 MG TABLET 2 MG PO (11:38)
--- NOTE | 2023-06-13 11:44 | PC.NURSE ---
pt has been pacing around pod, reports claustrophobia and anxiety. Randi PARMAR Ordered ativan, given per order
[2023-06-13 13:10] LABS: Glucose, Whole Blood 324 mg/dL (60-115)
[2023-06-13] MEDS: Insulin Lispro 100 UNIT/ML 3 ML VIAL 8 UNIT SUBCUT (13:52)
[2023-06-13 14:20] VITALS: BP 124/64; PULSE 103; RESP 20; TEMP 36.6; O2SAT 97
[2023-06-13 14:30] VITALS: BP 143/94; PULSE 102; RESP 20; TEMP 36.8; O2SAT 97
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
[2023-06-13 17:49] LABS: Glucose, Whole Blood 429 mg/dL (60-115)
[2023-06-13 19:27] VITALS: BMI 44.5
[2023-06-13 20:25] VITALS: BP 145/71; PULSE 109; RESP 18; TEMP 36.8; O2SAT 96
[2023-06-13] MEDS: Insulin Glargine,Hum.rec.anlog 100 UNIT/ML 10 ML VIAL 50 UNIT SUBCUT (20:52)
[2023-06-13] MEDS: Zolpidem Tartrate 5 MG TABLET 10 MG PO (20:54)
[2023-06-13 21:11] LABS: Glucose, Whole Blood 402 mg/dL (60-115)
[2023-06-14 06:00] VITALS: BP 168/82; PULSE 93; RESP 16; TEMP 36.9; O2SAT 96
[2023-06-14 08:28] LABS: Glucose, Whole Blood 369 mg/dL (60-115)
[2023-06-14] MEDS: Insulin Lispro 100 UNIT/ML 3 ML VIAL SUBCUT ×4 (08:40→20:47)
[2023-06-14] MEDS: Apixaban 5 MG TABLET PO (08:50)
[2023-06-14] MEDS: lisinopriL 10 MG TABLET 30 MG PO (08:50)
[2023-06-14] MEDS: Escitalopram Oxalate 20 MG TABLET PO (08:50)
[2023-06-14 09:06] LABS: Ammonia 25 umol/L (13-55)
[2023-06-14 09:17] LABS: Alanine Aminotransferase 47 U/L (0-40); Albumin Level 4.2 g/dL (3.5-5.0); Alkaline Phosphatase 109 U/L (39-117); Anion Gap 12 (12-20); Aspartate Amino Transferase 25 U/L (5-37); Bilirubin Total 0.6 mg/dL (0.0-1.0); Blood Urea Nitrogen 16 mg/dL (9-16); Calcium 10.1 mg/dL (8.4-10.2); Carbon Dioxide 25 mmol/L (22-29); Chloride 103 mmol/L (96-108); Cholesterol 185 mg/dL (<200); Creatinine Clr Calc Pharmacy 110.5; Estimated Glomerular Filt Rate > 60; HDL Cholesterol 42 mg/dL (>40); LDL Cholesterol Calculated 99 mg/dL (<100); Potassium 4.5 mmol/L (3.3-5.1); Sodium 135 mmol/L (135-145); Total Protein 7.7 g/dL (6.5-8.0); Triglycerides 223 mg/dL (<150)
[2023-06-14 09:19] LABS: Glucose Fasting 386 mg/dL (60-99)
--- NOTE | 2023-06-14 10:46 | MHC.RECOVRN ---
T/W attempted to meet with pt to provide ACS eval along with assessment of W/D and need for tx. Pt was resting in bed comfortably. When I introduced myself he replied it has already been 3 days . I informed him that there were other services we could discuss outside of W/D if he felt he no longer needed that. He requested I return in the afternoon. Report to pt's nurse Cr.
[2023-06-14] MEDS: Ondansetron ODT 4 MG TAB.RAPDIS TRANSLINGU (11:21)
[2023-06-14] MEDS: risperiDONE 1 MG TABLET PO ×2 (11:21→20:55)
[2023-06-14] MEDS: traMADoL HCL 50 MG TABLET PO (11:21)
[2023-06-14 11:23] VITALS: BP 138/88; PULSE 97; RESP 18; TEMP 36.9; O2SAT 96
--- NOTE | 2023-06-14 12:47 | HO.PSYADMNOT ---
HPI Date of Service: 06/14/23 Chief Complaint: Crisis Sources of Information: patient interviewed, chart reviewed and crisis/core team assessment reviewed HPI Subjective Notes: [place] Warning and Conditional Voluntary Narrative: Patient is a 53 year old male with reported hx of Bipolar d/o, opiate use d/o and cocaine use d/o who was assessed by crisis d/t suicidal ideation with no plan secondary to increased life stressors. Per crisis report, pt endorsed increased panic, vague suicidal ideation and auditory hallucinations. Patient reported his ex- recently , which has taken a toll on him and his daughter. He reported feeling anxious and depressed d/t his daughter recently endorsing SI following the of her mother. Patient has outpatient providers through [facility]. UTOX positive for opiates, fentanyl, cocaine and marijuana. During admission assessment, patient presents calm and cooperative. He reports feeling depressed and anxious today; pt stated, I came to the hospital because I'm having bad thoughts of suicide. I'm having too many problems. My ex- , I'm having financial problems and I think it's going to be the end of the world because of the eclipse . Pt reports suicidal ideation with plan to jump off the bridge ; pt denies any hx of SIB/SA. Pt reports auditory hallucinations that are telling him to harm himself; pt stated, I sometimes get voices that come and go for the past couple years . Pt denies HI/VH. Pt reports he has been using heroin (10 bags) and cocaine (unspecified amount), whenever I have money . Pt reports he would like help in getting rid of the voices and the racing thoughts . Pt reports being medication compliant; he denies any hx of antipsychotics or mood stabilizers. Addiction consult placed; pt reports he doesn't want to be on methadone because I'll be fine in a day or two . Past Psychiatric History: hx of inpatient hospitalization: [facility] (2019) pt denies any hx of CSS or PHP. Prescriber: Dr. Bhakti Kenny- [facility] Pt denies hx of SIB/SA. Medical Evaluation Reviewed: Hospitalist Coral Pending [facility] Medical History (Updated 06/14/23 @ 15:31 by Goldie Putnam NP) Cocaine abuse Erectile dysfunction Polysubstance abuse Paroxysmal atrial fibrillation with rapid ventricular response Lumbar degenerative disc disease Substance abuse Diabetes Depression Overactive bladder Arthritis BPH (benign prostatic hyperplasia) Asthma Seizure Morbid obesity with BMI of 40.0-44.9, adult Benign essential hypertension Insomnia Primary osteoarthritis of both knees Anxiety Family history of thyroid disorder Type 2 diabetes mellitus with hyperglycemia Surgical History No history of previous surgery Family History: unknown Social History: Rents a room in [place], , 5 children (all but 1 are adults, the minor lives with another sibling), unemployed. Substance History: UTOX positive for cocaine, opiates, fentanyl and marijuana. Pt reports using 10 bags of heroin whenever I have money . Trauma History: yes Diagnostics Vital Signs (24Hr): Vital Signs - 24 hr 06/13/23 14:20 06/13/23 14:30 06/13/23 20:25 Temperature 98 F 98.2 F 98.2 F Pulse Rate 103 H 102 H 109 H Respiratory Rate 20 20 18 Blood Pressure 124/64 143/94 H 145/71 H Pulse Oximetry 97 97 96 Oxygen Delivery Method Room Air Room Air Room Air 06/14/23 06:00 06/14/23 11:23 Temperature 98.4 F 98.4 F Pulse Rate 93 97 Respiratory Rate 16 18 Blood Pressure 168/82 H 138/88 Pulse Oximetry 96 96 Oxygen Delivery Method Room Air Room Air BMI result Body Mass Index 44.5 Labs 06/12/23 16:47 06/14/23 08:47 Labs: Laboratory Results - last 48 hr 06/12/23 06/12/23 06/12/23 16:47 21:07 21:11 WBC 10.6 RBC 5.56 Hgb 16.3 Hct 47.3 MCV 85.1 MCH 29.3 MCHC 34.5 RDW 12.6 Plt Count 334 MPV 9.9 Immature Gran % (Auto) 0.4 Neut % (Auto) 82.0 H Lymph % (Auto) 13.0 L Quay % (Auto) 4.3 Eos % (Auto) 0.2 Baso % (Auto) 0.1 Lymph # (Auto) 1.4 Quay # (Auto) 0.5 Eos # (Auto) 0.0 Baso # (Auto) 0.0 Abs Immat Gran (auto) 0.04 H Absolute Neuts (auto) 8.7 H Absolute Nucleated RBC 0.000 Nucleated RBC % (auto) 0.0 Sodium 137 Potassium 4.3 Chloride 105 Carbon Dioxide 24 Anion Gap 12 BUN 18 H Creatinine 1.31 Estim Creat Clear Calc 73.5 Estimated GFR 58 POC Glucose 449 H* 432 H* Random Glucose 377 H* Fasting Glucose Calcium 9.9 D Total Bilirubin 0.5 AST 30 ALT 56 H Alkaline Phosphatase 114 Ammonia Total Protein 8.0 Albumin 4.3 Triglycerides Cholesterol LDL Cholesterol, Calc HDL Cholesterol Urine Color Yellow Urine Appearance Clear Urine pH 5.5 Ur Specific Stafford >= 1.030 H Urine Protein Negative Urine Glucose (UA) >=1000 H Urine Ketones Negative Urine Blood Negative Urine Nitrite Negative Ur Leukocyte Esterase Negative Urine RBC 0-2 Urine WBC 0-5 Ur Squamous Epith Cells 0-2 Urine Bacteria None Seen Hyaline Casts 0-2 Urine Opiates Screen POSITIVE H Urine Fentanyl Screen POSITIVE H Ur Barbiturates Screen Not Detected Ur Phencyclidine Scrn Not Detected Ur Amphetamines Screen Not Detected U Benzodiazepines Scrn Not Detected Urine Cocaine Screen POSITIVE H U Marijuana (THC) Screen POSITIVE H Ethyl Alcohol < 10 COVID-19 (DG) Negative COVID-19 [employer] See Note 06/12/23 06/12/23 06/13/23 22:11 23:14 00:17 WBC RBC Hgb Hct MCV MCH MCHC RDW Plt Count MPV Immature Gran % (Auto) Neut % (Auto) Lymph % (Auto) Quay % (Auto) Eos % (Auto) Baso % (Auto) Lymph # (Auto) Quay # (Auto) Eos # (Auto) Baso # (Auto) Abs Immat Gran (auto) Absolute Neuts (auto) Absolute Nucleated RBC Nucleated RBC % (auto) Sodium Potassium Chloride Carbon Dioxide Anion Gap BUN Creatinine Estim Creat Clear Calc Estimated GFR POC Glucose 381 H* 294 H 270 H Random Glucose Fasting Glucose Calcium Total Bilirubin AST ALT Alkaline Phosphatase Ammonia Total Protein Albumin Triglycerides Cholesterol LDL Cholesterol, Calc HDL Cholesterol Urine Color Urine Appearance Urine pH Ur Specific [place] Urine Protein Urine Glucose (UA) Urine Ketones Urine Blood Urine Nitrite Ur Leukocyte Esterase Urine RBC Urine WBC Ur Squamous Epith Cells Urine Bacteria Hyaline Casts Urine Opiates Screen Urine Fentanyl Screen Ur Barbiturates Screen Ur Phencyclidine Scrn Ur Amphetamines Screen U Benzodiazepines Scrn Urine Cocaine Screen U Marijuana (THC) Screen Ethyl Alcohol COVID-19 (DG) COVID-19 [employer] 04/06/0206/13/23 06/13/23 01:20 06:22 13:03 WBC RBC Hgb Hct MCV MCH MCHC RDW Plt Count MPV Immature Gran % (Auto) Neut % (Auto) Lymph % (Auto) Quay % (Auto) Eos % (Auto) Baso % (Auto) Lymph # (Auto) Quay # (Auto) Eos # (Auto) Baso # (Auto) Abs Immat Gran (auto) Absolute Neuts (auto) Absolute Nucleated RBC Nucleated RBC % (auto) Sodium Potassium Chloride Carbon Dioxide Anion Gap BUN Creatinine Estim Creat Clear Calc Estimated GFR POC Glucose 251 H 270 H 324 H Random Glucose Fasting Glucose Calcium Total Bilirubin AST ALT Alkaline Phosphatase Ammonia Total Protein Albumin Triglycerides Cholesterol LDL Cholesterol, Calc HDL Cholesterol Urine Color Urine Appearance Urine pH Ur Specific Stafford Urine Protein Urine Glucose (UA) Urine Ketones Urine Blood Urine Nitrite Ur Leukocyte Esterase Urine RBC Urine WBC Ur Squamous Epith Cells Urine Bacteria Hyaline Casts Urine Opiates Screen Urine Fentanyl Screen Ur Barbiturates Screen Ur Phencyclidine Scrn Ur Amphetamines Screen U Benzodiazepines Scrn Urine Cocaine Screen U Marijuana (THC) Screen Ethyl Alcohol COVID-19 (DG) COVIDShopping Buddy 06/13/23 06/13/23 06/14/23 17:44 20:51 08:23 WBC RBC Hgb Hct MCV MCH MCHC RDW Plt Count MPV Immature Gran % (Auto) Neut % (Auto) Lymph % (Auto) Quay % (Auto) Eos % (Auto) Baso % (Auto) Lymph # (Auto) Quay # (Auto) Eos # (Auto) Baso # (Auto) Abs Immat Gran (auto) Absolute Neuts (auto) Absolute Nucleated RBC Nucleated RBC % (auto) Sodium Potassium Chloride Carbon Dioxide Anion Gap BUN Creatinine Estim Creat Clear Calc Estimated GFR POC Glucose 429 H* 402 H* 369 H* Random Glucose Fasting Glucose Calcium Total Bilirubin AST ALT Alkaline Phosphatase Ammonia Total Protein Albumin Triglycerides Cholesterol LDL Cholesterol, Calc HDL Cholesterol Urine Color Urine Appearance Urine pH Ur Specific [place] Urine Protein Urine Glucose (UA) Urine Ketones Urine Blood Urine Nitrite Ur Leukocyte Esterase Urine RBC Urine WBC Ur Squamous Epith Cells Urine Bacteria Hyaline Casts Urine Opiates Screen Urine Fentanyl Screen Ur Barbiturates Screen Ur Phencyclidine Scrn Ur Amphetamines Screen U Benzodiazepines Scrn Urine Cocaine Screen U Marijuana (THC) Screen Ethyl Alcohol COVID-19 (DG) COVIDShopping Buddy 06/14/23 08:47 WBC RBC Hgb Hct MCV MCH MCHC RDW Plt Count MPV Immature Gran % (Auto) Neut % (Auto) Lymph % (Auto) Quay % (Auto) Eos % (Auto) Baso % (Auto) Lymph # (Auto) Quay # (Auto) Eos # (Auto) Baso # (Auto) Abs Immat Gran (auto) Absolute Neuts (auto) Absolute Nucleated RBC Nucleated RBC % (auto) Sodium 135 Potassium 4.5 Chloride 103 Carbon Dioxide 25 Anion Gap 12 BUN 16 Creatinine 1.02 Estim Creat Clear Calc 110.5 Estimated GFR > 60 POC Glucose Random Glucose Fasting Glucose 386 H* Calcium 10.1 Total Bilirubin 0.6 AST 25 ALT 47 H Alkaline Phosphatase 109 Ammonia 25 Total Protein 7.7 Albumin 4.2 Triglycerides 223 H Cholesterol 185 LDL Cholesterol, Calc 99 HDL Cholesterol 42 Urine Color Urine Appearance Urine pH Ur Specific [place] Urine Protein Urine Glucose (UA) Urine Ketones Urine Blood Urine Nitrite Ur Leukocyte Esterase Urine RBC Urine WBC Ur Squamous Epith Cells Urine Bacteria Hyaline Casts Urine Opiates Screen Urine Fentanyl Screen Ur Barbiturates Screen Ur Phencyclidine Scrn Ur Amphetamines Screen U Benzodiazepines Scrn Urine Cocaine Screen U Marijuana (THC) Screen Ethyl Alcohol COVID-19 (DG) COVID-19 Clin Com Meds/Allergies Meds Home Medications ?Medication ?Instructions ?Recorded ?Confirmed ?Type buspirone 30 mg tablet 30 mg PO BID 06/12/23 06/12/23 History dulaglutide 3 mg/0.5 mL 3 mg subcut QWEEK 06/12/23 06/12/23 History subcutaneous pen injector insulin glargine-yfgn 100 unit/mL 50 unit subcut BEDTIME 06/13/23 06/13/23 History (3 mL) subcutaneous pen Allergies Allergies Allergy/AdvReac Type Severity Reaction Status Date / Time Penicillins [PENICILLINS] Allergy Unknown RASH Verified 06/12/23 17:27 Mental Status Exam Mental Status Exam Narrative: Pt is alert and oriented; behavior is cooperative and calm; dressed in hospital attire; mood is described as depressed and anxious ; eye contact appropriate; Speech is normal rate, volume and prosody and not pressured; thought process is organized and goal directed; paranoid; Pt reports suicidal ideation with plan to jump off bridge. +AH telling him to harm himself. denies HI/VH. Assessment & Plan Assessment & Plan (1) MDD (major depressive disorder), recurrent, severe, with psychosis: Status: Acute Code(s): F33.3 - Major depressive disorder, recurrent, severe with psychotic symptoms (2) PTSD (post-traumatic stress disorder): Status: Acute Code(s): F43.10 - Post-traumatic stress disorder, unspecified (3) Opioid use disorder: Status: Acute Code(s): F11.90 - Opioid use, unspecified, uncomplicated (4) Cocaine abuse: Status: Inactive Code(s): F14.10 - Cocaine abuse, uncomplicated Plan Patient is a 53 year old male with reported hx of Bipolar d/o, opiate use d/o and cocaine use d/o who was assessed by crisis d/t suicidal ideation with no plan secondary to increased life stressors. Plan: CV 15 minute safety checks continue home medications addiction medicine consult obtain collateral Start: risperidal 1mg PO BID;risk/benefits discussed Patient educated on: diagnosis, medication risk/benefits and substance abuse Informed Consent: understands and further education needed Reason for continued inpatient stay Substantial Risk for: harm to self and med/psych decompensation Statement Statement: I have reviewed the history and physical and performed a pertinent examination on my patient. No changes have occurred unless specified. If the History and Physical was not performed prior to admission, the Hospitalist's service will be consulted for completing the admission physical. Time Spent With Patient Time: Total time managing care of this patient today _60___ minutes.
[2023-06-14 13:32] LABS: Glucose, Whole Blood 435 mg/dL (60-115)
[2023-06-14] MEDS: cloNIDine HCL 0.1 MG TABLET PO (15:36)
[2023-06-14 15:38] VITALS: BP 142/86; PULSE 88
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
[2023-06-14 17:23] LABS: Glucose, Whole Blood 401 mg/dL (60-115)
[2023-06-14 20:10] VITALS: BP 150/72; PULSE 96; RESP 18; TEMP 36.9; O2SAT 96
[2023-06-14] MEDS: Insulin Glargine,Hum.rec.anlog 100 UNIT/ML 10 ML VIAL 50 UNIT SUBCUT (20:46)
[2023-06-14] MEDS: Zolpidem Tartrate 5 MG TABLET 10 MG PO (20:48)
[2023-06-14 21:07] LABS: Glucose, Whole Blood 483 mg/dL (60-115)
[2023-06-15] MEDS: hydrOXYzine HCL 25 MG TABLET PO (02:29)
[2023-06-15] MEDS: cloNIDine HCL 0.1 MG TABLET PO (02:29)
[2023-06-15 06:00] VITALS: BP 150/90; PULSE 102; RESP 16; TEMP 37.2; O2SAT 97
[2023-06-15 08:43] LABS: Glucose, Whole Blood 452 mg/dL (60-115)
[2023-06-15] MEDS: Insulin Lispro 100 UNIT/ML 3 ML VIAL SUBCUT ×3 (09:11→21:38)
[2023-06-15] MEDS: Apixaban 5 MG TABLET PO (09:12)
[2023-06-15] MEDS: risperiDONE 1 MG TABLET PO ×2 (09:12→21:38)
[2023-06-15] MEDS: lisinopriL 10 MG TABLET 30 MG PO (09:12)
[2023-06-15] MEDS: Escitalopram Oxalate 20 MG TABLET PO (09:12)
[2023-06-15] MEDS: busPIRone HCl 10 MG TABLET 30 MG PO (09:12)
--- NOTE | 2023-06-15 09:22 | HO.PSYCHPN ---
Subjective Subjective Date of Service: 06/15/23 Reason For Visit: Crisis Subjective Notes: Conditional Voluntary Interim History: Reviewed with Dr. Brumfield. keeping to self. Pt reports feeling okay today; pt stated, I think I'm done withdrawing because the last time I used was on Sunday. I'm still worried about what will happen with the eclipse because I go to a [employer] [facility] and they say a lot of things are going to happen . Pt reports having suicidal ideation that comes and goes because I don't know what will happen during the eclipse . Pt reports he is no longer having auditory hallucinations. pt denies HI/VH/AH. Medication Compliance: Yes Side effects from medications: No Attending Groups: No Review of Systems Constitutional: Reports as per HPI Eyes: Reports as per HPI Reports as per HPI Cardiovascular: Reports as per HPI Respiratory: Reports as per HPI Gastrointestinal: Reports as per HPI Genitourinary: Reports as per HPI Musculoskeletal: Reports as per HPI Skin/Breast: Reports as per HPI Reports as per HPI Psychiatric: Reports as per HPI Endocrine: Reports as per HPI Hematologic/Lymphatic: Reports as per HPI Allergic/Immunologic: Reports as per HPI Mental Status Exam Mental Status Exam Narrative: Pt is alert and oriented; behavior is cooperative and calm; dressed in hospital attire; mood is described as depressed and anxious ; eye contact appropriate; Speech is normal rate, volume and prosody and not pressured; thought process is organized and goal directed; paranoid; Pt reports suicidal ideation with plan to jump off bridge. denies HI/VH/AH. Diagnostics Vital Signs (24Hr): Vital Signs - 24 hr 06/14/23 11:23 06/14/23 15:38 06/14/23 20:10 Temperature 98.4 F 98.5 F Pulse Rate 97 88 96 Respiratory Rate 18 18 Blood Pressure 138/88 142/86 H 150/72 H Pulse Oximetry 96 96 Oxygen Delivery Method Room Air Room Air 06/15/23 06:00 Temperature 98.9 F Pulse Rate 102 H Respiratory Rate 16 Blood Pressure 150/90 H Pulse Oximetry 97 Oxygen Delivery Method Room Air BMI result Body Mass Index 44.5 Labs 06/12/23 16:47 06/14/23 08:47 Labs: Laboratory Results - last 48 hr 06/13/23 06/13/23 06/13/23 13:03 17:44 20:51 Sodium Potassium Chloride Carbon Dioxide Anion Gap BUN Creatinine Estim Creat Clear Calc Estimated GFR POC Glucose 324 H 429 H* 402 H* Fasting Glucose Calcium Total Bilirubin AST ALT Alkaline Phosphatase Ammonia Total Protein Albumin Triglycerides Cholesterol LDL Cholesterol, Calc HDL Cholesterol 06/14/23 06/14/23 06/14/23 08:23 08:47 13:29 Sodium 135 Potassium 4.5 Chloride 103 Carbon Dioxide 25 Anion Gap 12 BUN 16 Creatinine 1.02 Estim Creat Clear Calc 110.5 Estimated GFR > 60 POC Glucose 369 H* 435 H* Fasting Glucose 386 H* Calcium 10.1 Total Bilirubin 0.6 AST 25 ALT 47 H Alkaline Phosphatase 109 Ammonia 25 Total Protein 7.7 Albumin 4.2 Triglycerides 223 H Cholesterol 185 LDL Cholesterol, Calc 99 HDL Cholesterol 42 06/14/23 06/14/23 06/15/23 17:17 20:51 08:38 Sodium Potassium Chloride Carbon Dioxide Anion Gap BUN Creatinine Estim Creat Clear Calc Estimated GFR POC Glucose 401 H* 483 H* 452 H* Fasting Glucose Calcium Total Bilirubin AST ALT Alkaline Phosphatase Ammonia Total Protein Albumin Triglycerides Cholesterol LDL Cholesterol, Calc HDL Cholesterol Medications Medications Current Medications Acetaminophen (Acetaminophen 325 Mg Tablet) 650 mg PO Q6H PRN PRN Reason: Headache/Pain Mild Scale (1-3) Al Hydroxide/Mg Hydroxide (Magnesium Hydrox/Alum Hydrox 30 Ml Oral.Susp) 30 ml PO Q6H PRN PRN Reason: Heartburn/Nausea Albuterol Sulfate (Albuterol Sulfate 90 Mcg 8 Gm Inhaler) 2 puff INHALE Q8H PRN PRN Reason: for wheezing Apixaban (Apixaban 5 Mg Tablet) 5 mg PO BID [facility] Last Admin: 06/15/23 09:12 Dose: 5 mg Buspirone HCl (Buspirone Hcl 10 Mg Tablet) 30 mg PO BID [facility] Last Admin: 06/15/23 09:12 Dose: 30 mg Clonidine HCl (Clonidine Hcl 0.1 Mg Tablet) 0.1 mg PO TID PRN; Protocol PRN Reason: anxiety/restlessness Last Admin: 06/15/23 02:29 Dose: 0.1 mg Escitalopram Oxalate (Escitalopram Oxalate 20 Mg Tablet) 20 mg PO DAILY [facility] Last Admin: 06/15/23 09:12 Dose: 20 mg Hydroxyzine HCl (Hydroxyzine Hcl 25 Mg Tablet) 25 mg PO Q6H PRN PRN Reason: Anxiety Last Admin: 06/15/23 02:29 Dose: 25 mg Insulin Glargine (Insulin Glargine,Hum.Rec.Anlog 100 Unit/Ml 10 Ml Vial) 50 unit SUBCUT BEDTIME SCOTTY Last Admin: 06/14/23 20:46 Dose: 50 unit Insulin Human Lispro (Insulin Lispro 100 Unit/Ml 3 Ml Vial) 0 unit SUBCUT QIDACHS [facility]; Protocol Last Admin: 06/15/23 09:11 Dose: 10 unit Lidocaine (Lidocaine 4 % Patch Adh..Patch) 2 patch TRANSDERMA DAILY PRN PRN Reason: pain Last Admin: 06/12/23 21:41 Dose: 2 patch Lisinopril (Lisinopril 10 Mg Tablet) 30 mg PO DAILY [facility]; Protocol Last Admin: 06/15/23 09:12 Dose: 30 mg Magnesium Hydroxide (Milk Of Magnesia 30 Ml Oral.Susp) 30 ml PO DAILY PRN PRN Reason: Constipation Non-Formulary Medication (Dulaglutide) 3 mg SUBCUT QWEEK SCOTTY Ondansetron HCl (Ondansetron Odt 4 Mg Tab.Rapdis) 4 mg TRANSLINGU Q8H PRN PRN Reason: Nausea and Vomiting Last Admin: 06/14/23 11:21 Dose: 4 mg Risperidone (Risperidone 1 Mg Tablet) 1 mg PO BID SCOTTY Last Admin: 06/15/23 09:12 Dose: 1 mg Tramadol HCl (Tramadol Hcl 50 Mg Tablet) 50 mg PO TID PRN PRN Reason: Pain, Severe (Pain Scale 7-10) Last Admin: 06/14/23 11:21 Dose: 50 mg Trazodone HCl (Trazodone Hcl 50 Mg Tablet) 50 mg PO BEDTIME MRX1 PRN PRN Reason: Insomnia Zolpidem Tartrate (Zolpidem Tartrate 5 Mg Tablet) 10 mg PO BEDTIME PRN PRN Reason: insomnia Last Admin: 06/14/23 20:48 Dose: 10 mg Allergies Allergies Allergy/AdvReac Type Severity Reaction Status Date / Time Penicillins [PENICILLINS] Allergy Unknown RASH Verified 06/12/23 17:27 Assessment & Plan Assessment & Plan (1) MDD (major depressive disorder), recurrent, severe, with psychosis: Status: Acute Code(s): F33.3 - Major depressive disorder, recurrent, severe with psychotic symptoms (2) PTSD (post-traumatic stress disorder): Status: Acute Code(s): F43.10 - Post-traumatic stress disorder, unspecified (3) Opioid use disorder: Status: Acute Code(s): F11.90 - Opioid use, unspecified, uncomplicated (4) Cocaine abuse: Status: Inactive Code(s): F14.10 - Cocaine abuse, uncomplicated Plan Patient is a 53 year old male with reported hx of Bipolar d/o, opiate use d/o and cocaine use d/o who was assessed by crisis d/t suicidal ideation with no plan secondary to increased life stressors. Plan: CV 15 minute safety checks continue home medications addiction medicine consult obtain collateral Start: risperidal 1mg PO BID;risk/benefits discussed 06/14: keeping to self. Pt reports feeling okay today; pt stated, I think I'm done withdrawing because the last time I used was on Sunday. I'm still worried about what will happen with the eclipse because I go to [facility] [employer] [facility] and they say a lot of things are going to happen . Pt reports having suicidal ideation that comes and goes because I don't know what will happen during the eclipse . Pt reports he is no longer having auditory hallucinations. pt denies HI/VH/AH. Patient educated on: diagnosis, medication risk/benefits and substance abuse Informed Consent: understands Reason for continued inpatient stay Substantial Risk for: harm to self and med/psych decompensation Time Spent With Patient Time: Total time managing care of this patient today _20___ minutes.
[2023-06-15 12:41] LABS: Glucose, Whole Blood 409 mg/dL (60-115)
[2023-06-15 17:21] LABS: Glucose, Whole Blood 514 mg/dL (60-115)
[2023-06-15] MEDS: Insulin Lispro 100 UNIT/ML 3 ML VIAL 15 UNIT SUBCUT (17:49)
--- NOTE | 2023-06-15 18:08 | PM.EVENT ---
Documented by User: Arabella Guido APRN 06/15/23 18:09 Event Note Date of Service: 06/15/23 Event Note: POC 514 after pt reportedly had a snack and before dinner. Pt is on sliding scale. Lispro 15u X1 with recheck of scan at 2000 Time Spent With Patient Time: Total time managing care of this patient today ____ minutes. Documented by User: Chris Brumfield MD 06/16/23 21:13 Event Note Date of Service: 06/16/23
[2023-06-15 20:10] VITALS: BP 140/70; PULSE 110; RESP 18; TEMP 36.8; O2SAT 97
[2023-06-15 21:15] LABS: Glucose, Whole Blood 408 mg/dL (60-115)
[2023-06-15] MEDS: Insulin Glargine,Hum.rec.anlog 100 UNIT/ML 10 ML VIAL 50 UNIT SUBCUT (21:37)
[2023-06-15] MEDS: Lidocaine 4 % Patch ADH..PATCH 2 PATCH TRANSDERMA (21:40)
[2023-06-16 07:45] VITALS: BP 147/81; PULSE 101; RESP 16; TEMP 36.9; O2SAT 97
[2023-06-16 08:48] LABS: Glucose, Whole Blood 435 mg/dL (60-115)
[2023-06-16] MEDS: Insulin Lispro 100 UNIT/ML 3 ML VIAL SUBCUT ×7 (08:58→23:10)
--- NOTE | 2023-06-16 11:33 | P.PNPSI_ITS ---
Subjective Subjective Date of Service: 06/16/23 Reason For Visit: Crisis Subjective Notes: Conditional Voluntary Interim History: met with patient. Discussed with Nursing. Seen in the milieu engaging well with others. Noted significantly elevated blood sugars and patient's reluctance to manage diet were around same. Overall reports that his mood is okay. Sleep was broken last night. Reports trazodone causes sedation. Reports Seroquel is helpful at 50 mg. aware of potential issues with blood sugars, but also risks and balance of low-dose, verses poor sleep and impact on mental state taken into account. No SI. No agitation or psychosis. Medication Compliance: Yes Side effects from medications: No Attending Groups: Intermittent Review of Systems Elevated blood sugars, is accepting insulin, but not adherent to diet Review of Systems Review of Systems nothing acute Mental Status Exam Mental Status Exam Narrative: pleasant. Engaged. Casually dressed and presented. Organized. Utilizes walking frame when needed. Less depressed. No SI or HI. No psychosis. insight and judgment fair around Mental Health, but less so around blood sugar management Diagnostics Vital Signs (24Hr): Vital Signs - 24 hr 06/15/23 20:10 06/16/23 07:45 Temperature 98.2 F 98.5 F Pulse Rate 110 H 101 H Respiratory Rate 18 16 Blood Pressure 140/70 H 147/81 H Pulse Oximetry 97 97 Oxygen Delivery Method Room Air Room Air BMI result Body Mass Index 44.5 Labs 06/12/23 16:47 06/14/23 08:47 Labs: Laboratory Results - last 48 hr 06/14/23 06/14/23 06/14/23 13:29 17:17 20:51 POC Glucose 435 H* 401 H* 483 H* 06/15/23 06/15/23 06/15/23 08:38 12:36 17:18 POC Glucose 452 H* 409 H* 514 H* 06/15/23 06/16/23 21:10 08:43 POC Glucose 408 H* 435 H* Medications Medications Current Medications Acetaminophen (Acetaminophen 325 Mg Tablet) 650 mg PO Q6H PRN PRN Reason: Headache/Pain Mild Scale (1-3) Al Hydroxide/Mg Hydroxide (Magnesium Hydrox/Alum Hydrox 30 Ml Oral.Susp) 30 ml PO Q6H PRN PRN Reason: Heartburn/Nausea Albuterol Sulfate (Albuterol Sulfate 90 Mcg 8 Gm Inhaler) 2 puff INHALE Q8H PRN PRN Reason: for wheezing Apixaban (Apixaban 5 Mg Tablet) 5 mg PO BID [facility] Last Admin: 06/16/23 09:01 Dose: Not Given Buspirone HCl (Buspirone Hcl 10 Mg Tablet) 30 mg PO BID [facility] Last Admin: 06/16/23 09:01 Dose: Not Given Clonidine HCl (Clonidine Hcl 0.1 Mg Tablet) 0.1 mg PO TID PRN; Protocol PRN Reason: anxiety/restlessness Last Admin: 06/15/23 02:29 Dose: 0.1 mg Escitalopram Oxalate (Escitalopram Oxalate 20 Mg Tablet) 20 mg PO DAILY [facility] Last Admin: 06/16/23 09:01 Dose: Not Given Hydroxyzine HCl (Hydroxyzine Hcl 25 Mg Tablet) 25 mg PO Q6H PRN PRN Reason: Anxiety Last Admin: 06/15/23 02:29 Dose: 25 mg Insulin Glargine (Insulin Glargine,Hum.Rec.Anlog 100 Unit/Ml 10 Ml Vial) 50 unit SUBCUT BEDTIME [facility] Last Admin: 06/15/23 21:37 Dose: 50 unit Insulin Human Lispro (Insulin Lispro 100 Unit/Ml 3 Ml Vial) 0 unit SUBCUT QIDACHS [facility]; Protocol Last Admin: 06/16/23 08:58 Dose: 10 unit Lidocaine (Lidocaine 4 % Patch Adh..Patch) 2 patch TRANSDERMA DAILY PRN PRN Reason: pain Last Admin: 06/15/23 21:40 Dose: 2 patch Lidocaine (Lidocaine 4 % Patch Adh..Patch) 1 patch TRANSDERMA BID [facility]; Protocol Last Admin: 06/16/23 09:01 Dose: Not Given Lisinopril (Lisinopril 10 Mg Tablet) 30 mg PO DAILY [facility]; Protocol Last Admin: 06/16/23 09:02 Dose: Not Given Magnesium Hydroxide (Milk Of Magnesia 30 Ml Oral.Susp) 30 ml PO DAILY PRN PRN Reason: Constipation Non-Formulary Medication (Dulaglutide) 3 mg SUBCUT QWEEK [facility] Ondansetron HCl (Ondansetron Odt 4 Mg Tab.Rapdis) 4 mg TRANSLINGU Q8H PRN PRN Reason: Nausea and Vomiting Last Admin: 06/14/23 11:21 Dose: 4 mg Risperidone (Risperidone 1 Mg Tablet) 1 mg PO BID [facility] Last Admin: 06/16/23 09:02 Dose: Not Given Tramadol HCl (Tramadol Hcl 50 Mg Tablet) 50 mg PO TID PRN PRN Reason: Pain, Severe (Pain Scale 7-10) Last Admin: 06/14/23 11:21 Dose: 50 mg Trazodone HCl (Trazodone Hcl 50 Mg Tablet) 50 mg PO BEDTIME MRX1 PRN PRN Reason: Insomnia Zolpidem Tartrate (Zolpidem Tartrate 5 Mg Tablet) 10 mg PO BEDTIME PRN PRN Reason: insomnia Last Admin: 06/14/23 20:48 Dose: 10 mg Allergies Allergies Allergy/AdvReac Type Severity Reaction Status Date / Time Penicillins [PENICILLINS] Allergy Unknown RASH Verified 06/12/23 17:27 Assessment & Plan Assessment & Plan (1) MDD (major depressive disorder), recurrent, severe, with psychosis: Status: Acute Code(s): F33.3 - Major depressive disorder, recurrent, severe with psychotic symptoms (2) PTSD (post-traumatic stress disorder): Status: Acute Code(s): F43.10 - Post-traumatic stress disorder, unspecified (3) Opioid use disorder: Status: Acute Code(s): F11.90 - Opioid use, unspecified, uncomplicated Plan Patient is a 53 year old male with reported hx of Bipolar d/o, opiate use d/o and cocaine use d/o who was assessed by crisis d/t suicidal ideation with no plan secondary to increased life stressors. Plan: CV 15 minute safety checks continue home medications addiction medicine consult obtain collateral Start: risperidal 1mg PO BID;risk/benefits discussed 06/14: keeping to self. Pt reports feeling okay today; pt stated, I think I'm done withdrawing because the last time I used was on Sunday. I'm still worried about what will happen with the eclipse because I go to a [employer] [facility] and they say a lot of things are going to happen . Pt reports having suicidal ideation that comes and goes because I don't know what will happen during the eclipse . Pt reports he is no longer having auditory hallucinations. pt denies HI/VH/AH. 06/15: insomnia- Reports Seroquel is helpful at 50 mg. aware of potential issues with blood sugars, but also risks and balance of low-dose, verses poor sleep and impact on mental state taken into account Reason for continued inpatient stay Substantial Risk for: inability to function and rapid decompensation Time Spent With Patient Time: Total time managing care of this patient today ____ minutes.
[2023-06-16 12:39] LABS: Glucose, Whole Blood 532 mg/dL (60-115)
[2023-06-16] MEDS: Loperamide HCl 2 MG CAPSULE 4 MG PO (12:50)
[2023-06-16 14:02] LABS: Glucose, Whole Blood 540 mg/dL (60-115)
[2023-06-16 17:46] LABS: Glucose, Whole Blood 369 mg/dL (60-115)
[2023-06-16 20:00] VITALS: BP 170/84; PULSE 104; RESP 16; TEMP 36.8; O2SAT 99
[2023-06-16 20:50] LABS: Glucose, Whole Blood 490 mg/dL (60-115)
[2023-06-16 21:00] VITALS: BP 148/88
[2023-06-16] MEDS: Insulin Glargine,Hum.rec.anlog 100 UNIT/ML 10 ML VIAL 60 UNIT SUBCUT (21:59)
[2023-06-16] MEDS: Lidocaine 4 % Patch ADH..PATCH 2 PATCH TRANSDERMA (22:01)
[2023-06-16] MEDS: QUEtiapine Fumarate 50 MG TABLET PO (23:07)
[2023-06-17 07:50] VITALS: BP 170/87; PULSE 98; RESP 18; TEMP 36.9; O2SAT 99
[2023-06-17 08:31] LABS: Glucose, Whole Blood 335 mg/dL (60-115)
[2023-06-17] MEDS: Insulin Lispro 100 UNIT/ML 3 ML VIAL SUBCUT ×4 (08:49→20:55)
[2023-06-17] MEDS: lisinopriL 10 MG TABLET 30 MG PO (08:54)
[2023-06-17] MEDS: Loperamide HCl 2 MG CAPSULE 4 MG PO (08:54)
--- NOTE | 2023-06-17 12:08 | P.PNPSI_ITS ---
Subjective Subjective Date of Service: 06/17/23 Reason For Visit: Crisis Interim History: met with patient. Discussed with Nursing. Ongoing significantly elevated blood sugars and patient's reluctance to manage diet were around same. no significant changes from yesterday. Mood stable. Sleep good with low-dose Seroquel. No SI. No agitation or psychosis. Hopeful that he can be discharged by the end of this coming week. Medication Compliance: Intermittent Side effects from medications: No Attending Groups: No Review of Systems Acute medical concerns: No chronically elevated blood sugar levels with poor compliance around diet Review of Systems Review of Systems nothing acute Mental Status Exam Mental Status Exam Narrative: pleasant. Engaged. Casually dressed and presented. Organized. Utilizes walking frame when needed. Brighter affect. No SI or HI. No psychosis. insight and judgment fair around Mental Health, but less so around blood sugar management Diagnostics Vital Signs (24Hr): Vital Signs - 24 hr 06/16/23 20:00 06/16/23 21:00 06/17/23 07:50 Temperature 98.3 F 98.4 F Pulse Rate 104 H 98 Respiratory Rate 16 18 Blood Pressure 170/84 H 148/88 H 170/87 H Pulse Oximetry 99 99 Oxygen Delivery Method Room Air Room Air BMI result Body Mass Index 44.5 Labs 06/12/23 16:47 06/14/23 08:47 Labs: Laboratory Results - last 48 hr 06/15/23 06/15/23 06/15/23 12:36 17:18 21:10 POC Glucose 409 H* 514 H* 408 H* 06/16/23 06/16/23 06/16/23 08:43 12:35 13:57 POC Glucose 435 H* 532 H* 540 H* 06/16/23 06/16/23 06/17/23 17:40 20:46 08:26 POC Glucose 369 H* 490 H* 335 H Medications Medications Current Medications Acetaminophen (Acetaminophen 325 Mg Tablet) 650 mg PO Q6H PRN PRN Reason: Headache/Pain Mild Scale (1-3) Al Hydroxide/Mg Hydroxide (Magnesium Hydrox/Alum Hydrox 30 Ml Oral.Susp) 30 ml PO Q6H PRN PRN Reason: Heartburn/Nausea Albuterol Sulfate (Albuterol Sulfate 90 Mcg 8 Gm Inhaler) 2 puff INHALE Q8H PRN PRN Reason: for wheezing Apixaban (Apixaban 5 Mg Tablet) 5 mg PO BID [facility] Last Admin: 06/17/23 08:28 Dose: Not Given Buspirone HCl (Buspirone Hcl 10 Mg Tablet) 30 mg PO BID [facility] Last Admin: 06/17/23 08:28 Dose: Not Given Clonidine HCl (Clonidine Hcl 0.1 Mg Tablet) 0.1 mg PO TID PRN; Protocol PRN Reason: anxiety/restlessness Last Admin: 06/15/23 02:29 Dose: 0.1 mg Escitalopram Oxalate (Escitalopram Oxalate 20 Mg Tablet) 20 mg PO DAILY [facility] Last Admin: 06/17/23 08:28 Dose: Not Given Hydroxyzine HCl (Hydroxyzine Hcl 25 Mg Tablet) 25 mg PO Q6H PRN PRN Reason: Anxiety Last Admin: 06/15/23 02:29 Dose: 25 mg Insulin Glargine (Insulin Glargine,Hum.Rec.Anlog 100 Unit/Ml 10 Ml Vial) 60 unit SUBCUT BEDTIME [facility] Last Admin: 06/16/23 21:59 Dose: 60 unit Insulin Human Lispro (Insulin Lispro 100 Unit/Ml 3 Ml Vial) 0 unit SUBCUT QIDACHS [facility]; Protocol Last Admin: 06/17/23 08:49 Dose: 10 unit Lidocaine (Lidocaine 4 % Patch Adh..Patch) 2 patch TRANSDERMA DAILY PRN PRN Reason: pain Last Admin: 06/16/23 22:01 Dose: 2 patch Lidocaine (Lidocaine 4 % Patch Adh..Patch) 1 patch TRANSDERMA BID [facility]; Protocol Last Admin: 06/17/23 08:28 Dose: Not Given Lisinopril (Lisinopril 10 Mg Tablet) 30 mg PO DAILY [facility]; Protocol Last Admin: 06/17/23 08:54 Dose: 30 mg Loperamide HCl (Loperamide Hcl 2 Mg Capsule) 4 mg PO Q4H PRN PRN Reason: Diarrhea Last Admin: 06/17/23 08:54 Dose: 4 mg Magnesium Hydroxide (Milk Of Magnesia 30 Ml Oral.Susp) 30 ml PO DAILY PRN PRN Reason: Constipation Non-Formulary Medication (Dulaglutide) 3 mg SUBCUT QWEEK [facility] Ondansetron HCl (Ondansetron Odt 4 Mg Tab.Rapdis) 4 mg TRANSLINGU Q8H PRN PRN Reason: Nausea and Vomiting Last Admin: 06/14/23 11:21 Dose: 4 mg Quetiapine Fumarate (Quetiapine Fumarate 50 Mg Tablet) 50 mg PO BEDTIME [facility] Last Admin: 06/16/23 23:07 Dose: 50 mg Risperidone (Risperidone 1 Mg Tablet) 1 mg PO BID [facility] Last Admin: 06/17/23 08:29 Dose: Not Given Tramadol HCl (Tramadol Hcl 50 Mg Tablet) 50 mg PO TID PRN PRN Reason: Pain, Severe (Pain Scale 7-10) Last Admin: 06/14/23 11:21 Dose: 50 mg Trazodone HCl (Trazodone Hcl 50 Mg Tablet) 50 mg PO BEDTIME MRX1 PRN PRN Reason: Insomnia Zolpidem Tartrate (Zolpidem Tartrate 5 Mg Tablet) 10 mg PO BEDTIME PRN PRN Reason: insomnia Last Admin: 06/14/23 20:48 Dose: 10 mg Allergies Allergies Allergy/AdvReac Type Severity Reaction Status Date / Time Penicillins [PENICILLINS] Allergy Unknown RASH Verified 06/12/23 17:27 Assessment & Plan Assessment & Plan (1) MDD (major depressive disorder), recurrent, severe, with psychosis: Status: Acute Code(s): F33.3 - Major depressive disorder, recurrent, severe with psychotic symptoms (2) PTSD (post-traumatic stress disorder): Status: Acute Code(s): F43.10 - Post-traumatic stress disorder, unspecified (3) Opioid use disorder: Status: Acute Code(s): F11.90 - Opioid use, unspecified, uncomplicated Plan Patient is a 53 year old male with reported hx of Bipolar d/o, opiate use d/o and cocaine use d/o who was assessed by crisis d/t suicidal ideation with no plan secondary to increased life stressors. Plan: CV 15 minute safety checks continue home medications addiction medicine consult obtain collateral Start: risperidal 1mg PO BID;risk/benefits discussed 06/14: keeping to self. Pt reports feeling okay today; pt stated, I think I'm done withdrawing because the last time I used was on Sunday. I'm still worried about what will happen with the eclipse because I go to a [employer] [facility] and they say a lot of things are going to happen . Pt reports having suicidal ideation that comes and goes because I don't know what will happen during the eclipse . Pt reports he is no longer having auditory hallucinations. pt denies HI/VH/AH. 06/15: insomnia- Reports Seroquel is helpful at 50 mg. aware of potential issues with blood sugars, but also risks and balance of low-dose, verses poor sleep and impact on mental state taken into account 06/16: no changes Reason for continued inpatient stay Substantial Risk for: rapid decompensation Time Spent With Patient Time: Total time managing care of this patient today ____ minutes.
[2023-06-17 12:21] LABS: Glucose, Whole Blood 372 mg/dL (60-115)
[2023-06-17 17:41] LABS: Glucose, Whole Blood 403 mg/dL (60-115)
[2023-06-17 19:40] VITALS: BP 163/89; PULSE 102; RESP 18; TEMP 36.8; O2SAT 97
[2023-06-17 20:37] LABS: Glucose, Whole Blood 389 mg/dL (60-115)
[2023-06-17] MEDS: Insulin Glargine,Hum.rec.anlog 100 UNIT/ML 10 ML VIAL 60 UNIT SUBCUT (20:54)
[2023-06-17] MEDS: QUEtiapine Fumarate 50 MG TABLET PO (22:34)
[2023-06-18] MEDS: Lidocaine 4 % Patch ADH..PATCH 2 PATCH TRANSDERMA (00:17)
[2023-06-18 06:00] VITALS: BP 145/87; PULSE 102; RESP 16; TEMP 37.1; O2SAT 97
[2023-06-18 08:07] LABS: Glucose, Whole Blood 379 mg/dL (60-115)
--- NOTE | 2023-06-18 08:52 | HO.PSYCHPN ---
Subjective Subjective Date of Service: 06/18/23 Reason For Visit: Crisis Subjective Notes: Conditional Voluntary Interim History: Reviewed with Dr. Brumfeild. Social with peers. Pt reports feeling good today; Pt reports he continues anxious regarding solar eclipse today d/t his yazidism beliefs. denies SI/HI/VH/AH. He would like to be discharged home soon. Ongoing significantly elevated blood sugars; pt educated regarding diet and blood sugar management. Medication Compliance: Intermittent Side effects from medications: No Attending Groups: Intermittent Review of Systems Constitutional: Reports as per HPI Eyes: Reports as per HPI Reports as per HPI Cardiovascular: Reports as per HPI Respiratory: Reports as per HPI Gastrointestinal: Reports as per HPI Genitourinary: Reports as per HPI Musculoskeletal: Reports as per HPI Skin/Breast: Reports as per HPI Reports as per HPI Psychiatric: Reports as per HPI Endocrine: Reports as per HPI Hematologic/Lymphatic: Reports as per HPI Allergic/Immunologic: Reports as per HPI Mental Status Exam Mental Status Exam Narrative: Pt is alert and oriented; behavior is cooperative, friendly and calm; dressed in casual attire; mood is described as good ; eye contact appropriate; Speech is normal rate, volume and prosody and not pressured; thought process is organized; Thought content is on discharge; denies SI/HI/VH/AH. Pt reports he continues anxious regarding solar eclipse today d/t his yazidism beliefs. Diagnostics Vital Signs (24Hr): Vital Signs - 24 hr 06/17/23 19:40 06/18/23 06:00 Temperature 98.2 F 98.7 F Pulse Rate 102 H 102 H Respiratory Rate 18 16 Blood Pressure 163/89 H 145/87 H Pulse Oximetry 97 97 Oxygen Delivery Method Room Air Room Air BMI result Body Mass Index 44.5 Labs 06/12/23 16:47 06/14/23 08:47 Labs: Laboratory Results - last 48 hr 06/16/23 06/16/23 06/16/23 12:35 13:57 17:40 POC Glucose 532 H* 540 H* 369 H* 06/16/23 06/17/23 06/17/23 20:46 08:26 12:17 POC Glucose 490 H* 335 H 372 H* 06/17/23 06/17/23 06/18/23 17:37 20:33 08:02 POC Glucose 403 H* 389 H* 379 H* Medications Medications Current Medications Acetaminophen (Acetaminophen 325 Mg Tablet) 650 mg PO Q6H PRN PRN Reason: Headache/Pain Mild Scale (1-3) Al Hydroxide/Mg Hydroxide (Magnesium Hydrox/Alum Hydrox 30 Ml Oral.Susp) 30 ml PO Q6H PRN PRN Reason: Heartburn/Nausea Albuterol Sulfate (Albuterol Sulfate 90 Mcg 8 Gm Inhaler) 2 puff INHALE Q8H PRN PRN Reason: for wheezing Apixaban (Apixaban 5 Mg Tablet) 5 mg PO BID [facility] Last Admin: 06/17/23 22:36 Dose: Not Given Buspirone HCl (Buspirone Hcl 10 Mg Tablet) 30 mg PO BID [facility] Last Admin: 06/17/23 22:40 Dose: Not Given Clonidine HCl (Clonidine Hcl 0.1 Mg Tablet) 0.1 mg PO TID PRN; Protocol PRN Reason: anxiety/restlessness Last Admin: 06/15/23 02:29 Dose: 0.1 mg Escitalopram Oxalate (Escitalopram Oxalate 20 Mg Tablet) 20 mg PO DAILY [facility] Last Admin: 06/17/23 08:28 Dose: Not Given Hydroxyzine HCl (Hydroxyzine Hcl 25 Mg Tablet) 25 mg PO Q6H PRN PRN Reason: Anxiety Last Admin: 06/15/23 02:29 Dose: 25 mg Insulin Glargine (Insulin Glargine,Hum.Rec.Anlog 100 Unit/Ml 10 Ml Vial) 60 unit SUBCUT BEDTIME [facility] Last Admin: 06/17/23 20:54 Dose: 60 unit Insulin Human Lispro (Insulin Lispro 100 Unit/Ml 3 Ml Vial) 0 unit SUBCUT QIDACHS [facility]; Protocol Last Admin: 06/17/23 20:55 Dose: 12 unit Lidocaine (Lidocaine 4 % Patch Adh..Patch) 2 patch TRANSDERMA DAILY PRN PRN Reason: pain Last Admin: 06/18/23 00:17 Dose: 2 patch Lidocaine (Lidocaine 4 % Patch Adh..Patch) 1 patch TRANSDERMA BID [facility]; Protocol Last Admin: 06/18/23 00:30 Dose: Not Given Lisinopril (Lisinopril 10 Mg Tablet) 30 mg PO DAILY [facility]; Protocol Last Admin: 06/17/23 08:54 Dose: 30 mg Loperamide HCl (Loperamide Hcl 2 Mg Capsule) 4 mg PO Q4H PRN PRN Reason: Diarrhea Last Admin: 06/17/23 08:54 Dose: 4 mg Magnesium Hydroxide (Milk Of Magnesia 30 Ml Oral.Susp) 30 ml PO DAILY PRN PRN Reason: Constipation Non-Formulary Medication (Dulaglutide) 3 mg SUBCUT QWEEK [facility] Ondansetron HCl (Ondansetron Odt 4 Mg Tab.Rapdis) 4 mg TRANSLINGU Q8H PRN PRN Reason: Nausea and Vomiting Last Admin: 06/14/23 11:21 Dose: 4 mg Quetiapine Fumarate (Quetiapine Fumarate 50 Mg Tablet) 50 mg PO BEDTIME [facility] Last Admin: 06/17/23 22:34 Dose: 50 mg Risperidone (Risperidone 1 Mg Tablet) 1 mg PO BID [facility] Last Admin: 06/17/23 22:42 Dose: Not Given Tramadol HCl (Tramadol Hcl 50 Mg Tablet) 50 mg PO TID PRN PRN Reason: Pain, Severe (Pain Scale 7-10) Last Admin: 06/14/23 11:21 Dose: 50 mg Trazodone HCl (Trazodone Hcl 50 Mg Tablet) 50 mg PO BEDTIME MRX1 PRN PRN Reason: Insomnia Zolpidem Tartrate (Zolpidem Tartrate 5 Mg Tablet) 10 mg PO BEDTIME PRN PRN Reason: insomnia Last Admin: 06/14/23 20:48 Dose: 10 mg Allergies Allergies Allergy/AdvReac Type Severity Reaction Status Date / Time Penicillins [PENICILLINS] Allergy Unknown RASH Verified 06/12/23 17:27 Assessment & Plan Assessment & Plan (1) MDD (major depressive disorder), recurrent, severe, with psychosis: Status: Acute Code(s): F33.3 - Major depressive disorder, recurrent, severe with psychotic symptoms (2) PTSD (post-traumatic stress disorder): Status: Acute Code(s): F43.10 - Post-traumatic stress disorder, unspecified (3) Opioid use disorder: Status: Acute Code(s): F11.90 - Opioid use, unspecified, uncomplicated Plan Patient is a 53 year old male with reported hx of Bipolar d/o, opiate use d/o and cocaine use d/o who was assessed by crisis d/t suicidal ideation with no plan secondary to increased life stressors. Plan: CV 15 minute safety checks continue home medications addiction medicine consult obtain collateral Start: risperidal 1mg PO BID;risk/benefits discussed 06/14: keeping to self. Pt reports feeling okay today; pt stated, I think I'm done withdrawing because the last time I used was on Sunday. I'm still worried about what will happen with the eclipse because I go to a [employer] and they say a lot of things are going to happen . Pt reports having suicidal ideation that comes and goes because I don't know what will happen during the eclipse . Pt reports he is no longer having auditory hallucinations. pt denies HI/VH/AH. 06/15: insomnia- Reports Seroquel is helpful at 50 mg. aware of potential issues with blood sugars, but also risks and balance of low-dose, verses poor sleep and impact on mental state taken into account 06/16: no changes 06/17: Social with peers. Pt reports feeling good today; Pt reports he continues anxious regarding solar eclipse today d/t his yazidism beliefs. denies SI/HI/VH/AH. He would like to be discharged home soon. Medication compliant intermittently. Ongoing significantly elevated blood sugars; pt educated regarding diet and blood sugar management. Patient educated on: diagnosis, medication risk/benefits, substance abuse and medical condition Informed Consent: understands Reason for continued inpatient stay Substantial Risk for: med/psych decompensation Time Spent With Patient Time: Total time managing care of this patient today _30___ minutes.
[2023-06-18] MEDS: Insulin Lispro 100 UNIT/ML 3 ML VIAL SUBCUT ×5 (09:08→22:58)
[2023-06-18 10:17] LABS: Glucose, Whole Blood 470 mg/dL (60-115)
[2023-06-18] MEDS: Insulin Glargine,Hum.rec.anlog 100 UNIT/ML 10 ML VIAL 10 UNIT SUBCUT (10:38)
[2023-06-18 11:56] LABS: Glucose, Whole Blood 344 mg/dL (60-115)
[2023-06-18 12:58] VITALS: BP 145/87; PULSE 102; O2SAT 97
[2023-06-18] MEDS: metFORMIN HCl ER 500 MG TAB.ER.24H PO ×2 (13:35→18:08)
[2023-06-18 14:47] LABS: Anion Gap 14 (12-20); Blood Urea Nitrogen 21 mg/dL (9-16); Calcium 9.5 mg/dL (8.4-10.2); Carbon Dioxide 23 mmol/L (22-29); Chloride 100 mmol/L (96-108); Creatinine Clr Calc Pharmacy 102.4; Estimated Glomerular Filt Rate > 60; Glucose Random 489 mg/dL (60-115); Potassium 4.4 mmol/L (3.3-5.1); Sodium 133 mmol/L (135-145)
--- NOTE | 2023-06-18 14:57 | PM.EVENT ---
Event Note Date of Service: 06/18/23 Event Note: Pt with uncontrolled type 2 diabetes. Hospitalist service notified this morning of uncontrolled glucose levels. Since admission 06/11, glucose levels have been elevated above 300 nearly consistently. BMP checked this am with glucose 489. AG closed at 14. No acidosis. Has a pseudohyponatremia of 133. No acidosis or DKA. Hgb A1c is pending. Plan: Continue increased dose lantus 60 units nightly Give 10 units admelog now Add 5 units standing lispo QIDACHS AND continue SSI Add metformin 500mg ER BID Encourage diabetic diet and diabetic snacking Will continue following Time Spent With Patient Time: Total time managing care of this patient today ____ minutes.
[2023-06-18] MEDS: Insulin Lispro 100 UNIT/ML 3 ML VIAL 10 UNIT SUBCUT ×3 (15:05→22:57)
[2023-06-18 16:16] LABS: Glucose, Whole Blood 371 mg/dL (60-115)
[2023-06-18 20:20] VITALS: BP 150/78; PULSE 107; RESP 18; TEMP 37.3; O2SAT 97
[2023-06-18] MEDS: hydrOXYzine HCL 25 MG TABLET PO (20:35)
[2023-06-18 21:29] LABS: Glucose, Whole Blood 275 mg/dL (60-115)
[2023-06-18] MEDS: Insulin Glargine,Hum.rec.anlog 100 UNIT/ML 10 ML VIAL 60 UNIT SUBCUT (22:57)
[2023-06-18] MEDS: QUEtiapine Fumarate 50 MG TABLET PO (22:59)
[2023-06-19 06:00] VITALS: BP 164/105; PULSE 99; RESP 24; TEMP 36.4; O2SAT 96
--- NOTE | 2023-06-19 09:18 | HO.PSYCHPN ---
Subjective Subjective Date of Service: 06/19/23 Reason For Visit: Crisis Subjective Notes: Conditional Voluntary Interim History: Reviewed with Dr. Brumfield. Pt reports feeling good today; pt stated, being here helped me clear my thoughts. I'm glad nothing happened during the eclipse . denies SI/HI/VH/AH. Pt reports he is looking forward to returning home. Plan to discharge on . Medication Compliance: Yes Side effects from medications: No Attending Groups: Intermittent Review of Systems Constitutional: Reports as per HPI Eyes: Reports as per HPI Reports as per HPI Cardiovascular: Reports as per HPI Respiratory: Reports as per HPI Gastrointestinal: Reports as per HPI Genitourinary: Reports as per HPI Musculoskeletal: Reports as per HPI Skin/Breast: Reports as per HPI Reports as per HPI Psychiatric: Reports as per HPI Endocrine: Reports as per HPI Hematologic/Lymphatic: Reports as per HPI Allergic/Immunologic: Reports as per HPI Mental Status Exam Mental Status Exam Narrative: Pt is alert and oriented; behavior is cooperative, friendly and calm; dressed in casual attire; mood is described as good ; eye contact appropriate; Speech is normal rate, volume and prosody and not pressured; thought process is organized; Thought content is on discharge; denies SI/HI/VH/AH. Diagnostics Vital Signs (24Hr): Vital Signs - 24 hr 06/18/23 12:58 06/18/23 20:20 06/19/23 06:00 Temperature 99.1 F 97.6 F Pulse Rate 102 H 107 H 99 Respiratory Rate 18 24 H Blood Pressure 145/87 H 150/78 H 164/105 H Pulse Oximetry 97 97 96 Oxygen Delivery Method Room Air Room Air BMI result Body Mass Index 44.5 Labs 06/12/23 16:47 06/18/23 13:51 Labs: Laboratory Results - last 48 hr 06/17/23 06/17/23 06/17/23 12:17 17:37 20:33 Sodium Potassium Chloride Carbon Dioxide Anion Gap BUN Creatinine Estim Creat Clear Calc Estimated GFR POC Glucose 372 H* 403 H* 389 H* Random Glucose Calcium 06/18/23 06/18/23 06/18/23 08:02 10:13 11:52 Sodium Potassium Chloride Carbon Dioxide Anion Gap BUN Creatinine Estim Creat Clear Calc Estimated GFR POC Glucose 379 H* 470 H* 344 H Random Glucose Calcium 06/18/23 06/18/23 06/18/23 13:51 16:12 21:24 Sodium 133 L Potassium 4.4 Chloride 100 Carbon Dioxide 23 Anion Gap 14 BUN 21 H Creatinine 1.10 Estim Creat Clear Calc 102.4 Estimated GFR > 60 POC Glucose 371 H* 275 H Random Glucose 489 H* Calcium 9.5 Medications Medications Current Medications Acetaminophen (Acetaminophen 325 Mg Tablet) 650 mg PO Q6H PRN PRN Reason: Headache/Pain Mild Scale (1-3) Al Hydroxide/Mg Hydroxide (Magnesium Hydrox/Alum Hydrox 30 Ml Oral.Susp) 30 ml PO Q6H PRN PRN Reason: Heartburn/Nausea Albuterol Sulfate (Albuterol Sulfate 90 Mcg 8 Gm Inhaler) 2 puff INHALE Q8H PRN PRN Reason: for wheezing Apixaban (Apixaban 5 Mg Tablet) 5 mg PO BID [facility] Last Admin: 06/19/23 09:16 Dose: Not Given Buspirone HCl (Buspirone Hcl 10 Mg Tablet) 30 mg PO BID [facility] Last Admin: 06/19/23 09:16 Dose: Not Given Clonidine HCl (Clonidine Hcl 0.1 Mg Tablet) 0.1 mg PO TID PRN; Protocol PRN Reason: anxiety/restlessness Last Admin: 06/15/23 02:29 Dose: 0.1 mg Escitalopram Oxalate (Escitalopram Oxalate 20 Mg Tablet) 20 mg PO DAILY [facility] Last Admin: 06/19/23 09:16 Dose: Not Given Hydroxyzine HCl (Hydroxyzine Hcl 25 Mg Tablet) 25 mg PO Q6H PRN PRN Reason: Anxiety Last Admin: 06/18/23 20:35 Dose: 25 mg Insulin Glargine (Insulin Glargine,Hum.Rec.Anlog 100 Unit/Ml 10 Ml Vial) 60 unit SUBCUT BEDTIME [facility] Last Admin: 06/18/23 22:57 Dose: 60 unit Insulin Human Lispro (Insulin Lispro 100 Unit/Ml 3 Ml Vial) 0 unit SUBCUT QIDACHS [facility]; Protocol Last Admin: 06/19/23 09:15 Dose: Not Given Insulin Human Lispro (Insulin Lispro 100 Unit/Ml 3 Ml Vial) 10 unit SUBCUT QIDACHS [facility] Last Admin: 06/19/23 09:16 Dose: Not Given Lidocaine (Lidocaine 4 % Patch Adh..Patch) 2 patch TRANSDERMA DAILY PRN PRN Reason: pain Last Admin: 06/18/23 00:17 Dose: 2 patch Lidocaine (Lidocaine 4 % Patch Adh..Patch) 1 patch TRANSDERMA BID [facility]; Protocol Last Admin: 06/19/23 09:16 Dose: Not Given Lisinopril (Lisinopril 10 Mg Tablet) 30 mg PO DAILY [facility]; Protocol Last Admin: 06/19/23 09:16 Dose: Not Given Loperamide HCl (Loperamide Hcl 2 Mg Capsule) 4 mg PO Q4H PRN PRN Reason: Diarrhea Last Admin: 06/17/23 08:54 Dose: 4 mg Magnesium Hydroxide (Milk Of Magnesia 30 Ml Oral.Susp) 30 ml PO DAILY PRN PRN Reason: Constipation Metformin HCl (Metformin Hcl Er 500 Mg Tab.Er.24h) 500 mg PO BIDWM [facility] Last Admin: 06/19/23 09:16 Dose: Not Given Ondansetron HCl (Ondansetron Odt 4 Mg Tab.Rapdis) 4 mg TRANSLINGU Q8H PRN PRN Reason: Nausea and Vomiting Last Admin: 06/14/23 11:21 Dose: 4 mg Quetiapine Fumarate (Quetiapine Fumarate 50 Mg Tablet) 50 mg PO BEDTIME [facility] Last Admin: 06/18/23 22:59 Dose: 50 mg Risperidone (Risperidone 1 Mg Tablet) 1 mg PO BID [facility] Last Admin: 06/19/23 09:16 Dose: Not Given Tramadol HCl (Tramadol Hcl 50 Mg Tablet) 50 mg PO TID PRN PRN Reason: Pain, Severe (Pain Scale 7-10) Last Admin: 06/14/23 11:21 Dose: 50 mg Trazodone HCl (Trazodone Hcl 50 Mg Tablet) 50 mg PO BEDTIME MRX1 PRN PRN Reason: Insomnia Zolpidem Tartrate (Zolpidem Tartrate 5 Mg Tablet) 10 mg PO BEDTIME PRN PRN Reason: insomnia Last Admin: 06/14/23 20:48 Dose: 10 mg Allergies Allergies Allergy/AdvReac Type Severity Reaction Status Date / Time Penicillins [PENICILLINS] Allergy Unknown RASH Verified 06/12/23 17:27 Assessment & Plan Assessment & Plan (1) MDD (major depressive disorder), recurrent, severe, with psychosis: Status: Acute Code(s): F33.3 - Major depressive disorder, recurrent, severe with psychotic symptoms (2) PTSD (post-traumatic stress disorder): Status: Acute Code(s): F43.10 - Post-traumatic stress disorder, unspecified (3) Opioid use disorder: Status: Acute Code(s): F11.90 - Opioid use, unspecified, uncomplicated Plan Patient is a 53 year old male with reported hx of Bipolar d/o, opiate use d/o and cocaine use d/o who was assessed by crisis d/t suicidal ideation with no plan secondary to increased life stressors. Plan: CV 15 minute safety checks continue home medications addiction medicine consult obtain collateral Start: risperidal 1mg PO BID;risk/benefits discussed 06/14: keeping to self. Pt reports feeling okay today; pt stated, I think I'm done withdrawing because the last time I used was on Sunday. I'm still worried about what will happen with the eclipse because I go to a [employer] and they say a lot of things are going to happen . Pt reports having suicidal ideation that comes and goes because I don't know what will happen during the eclipse . Pt reports he is no longer having auditory hallucinations. pt denies HI/VH/AH. 06/15: insomnia- Reports Seroquel is helpful at 50 mg. aware of potential issues with blood sugars, but also risks and balance of low-dose, verses poor sleep and impact on mental state taken into account 06/16: no changes 06/17: Social with peers. Pt reports feeling good today; Pt reports he continues anxious regarding solar eclipse today d/t his restorationist beliefs. denies SI/HI/VH/AH. He would like to be discharged home soon. Medication compliant intermittently. Ongoing significantly elevated blood sugars; pt educated regarding diet and blood sugar management. 06/18: Pt reports feeling good today; pt stated, being here helped me clear my thoughts. I'm glad nothing happened during the eclipse . denies SI/HI/VH/AH. Pt reports he is looking forward to returning home. Plan to discharge on . Patient educated on: diagnosis, medication risk/benefits and therapeutic strategies Informed Consent: understands Reason for continued inpatient stay Substantial Risk for: med/psych decompensation Time Spent With Patient Time: Total time managing care of this patient today _20___ minutes.
[2023-06-19 09:21] LABS: Glucose, Whole Blood 367 mg/dL (60-115)
--- NOTE | 2023-06-19 09:25 | PC.NURSE ---
Pt blood glucose is 367 and he refused all of his morning medications, including insulin. All of the aforementioned information was reported to Ernestina Putnam NP, via [employer].
[2023-06-19 12:47] LABS: Glucose, Whole Blood 336 mg/dL (60-115)
[2023-06-19] MEDS: Insulin Lispro 100 UNIT/ML 3 ML VIAL SUBCUT ×3 (12:54→21:04)
[2023-06-19] MEDS: Insulin Lispro 100 UNIT/ML 3 ML VIAL 10 UNIT SUBCUT ×3 (12:54→21:04)
[2023-06-19 17:53] LABS: Glucose, Whole Blood 314 mg/dL (60-115)
[2023-06-19] MEDS: metFORMIN HCl ER 500 MG TAB.ER.24H PO (18:14)
[2023-06-19] MEDS: hydrOXYzine HCL 25 MG TABLET PO (19:30)
[2023-06-19] MEDS: cloNIDine HCL 0.1 MG TABLET PO (19:30)
[2023-06-19 20:44] LABS: Glucose, Whole Blood 468 mg/dL (60-115)
[2023-06-19 21:00] VITALS: BP 159/79; PULSE 106; RESP 20; TEMP 36.8; O2SAT 98
[2023-06-19] MEDS: Insulin Glargine,Hum.rec.anlog 100 UNIT/ML 10 ML VIAL 60 UNIT SUBCUT (21:02)
[2023-06-19] MEDS: busPIRone HCl 10 MG TABLET 30 MG PO (22:36)
[2023-06-19] MEDS: QUEtiapine Fumarate 50 MG TABLET PO (22:36)
[2023-06-19] MEDS: risperiDONE 1 MG TABLET PO (22:37)
[2023-06-20 06:00] VITALS: BP 144/72; PULSE 91; RESP 16; TEMP 36.5; O2SAT 97
--- NOTE | 2023-06-20 06:48 | PC.NURSE ---
Herman was upset with his roommate this am at 0630. Patient upset that patient could not sleep because his roommate was making noise throughout the night. Herman postured toward his roommate when his roommate replied with a negative comment. Patient was able to remain in behavioral control. Patient was placed in the anteroom for safety and to get some sleep. Patient placed on 5 minute checks.
[2023-06-20] MEDS: Loperamide HCl 2 MG CAPSULE 4 MG PO (07:09)
--- NOTE | 2023-06-20 07:55 | HO.PSYCHPN ---
Subjective Subjective Date of Service: 06/20/23 Reason For Visit: Crisis Subjective Notes: Conditional Voluntary Interim History: Reviewed with Dr. Brumfield. Pt reports feeling good today; pt stated, I'm feeling a lot better than when I came in here. Yesterday I had a visit with my girlfriend. It was nice. We're going to keep going to buddhism and gym together to help me stay sober . denies SI/HI/VH/AH. Medication Compliance: Yes Side effects from medications: No Attending Groups: Intermittent Review of Systems Constitutional: Reports as per HPI Eyes: Reports as per HPI Reports as per HPI Cardiovascular: Reports as per HPI Respiratory: Reports as per HPI Gastrointestinal: Reports as per HPI Genitourinary: Reports as per HPI Musculoskeletal: Reports as per HPI Skin/Breast: Reports as per HPI Reports as per HPI Psychiatric: Reports as per HPI Endocrine: Reports as per HPI Hematologic/Lymphatic: Reports as per HPI Allergic/Immunologic: Reports as per HPI Mental Status Exam Mental Status Exam Narrative: Pt is alert and oriented; behavior is cooperative, friendly and calm; dressed in casual attire; mood is described as good ; eye contact appropriate; Speech is normal rate, volume and prosody and not pressured; thought process is organized; Thought content is on discharge; denies SI/HI/VH/AH. Diagnostics Vital Signs (24Hr): Vital Signs - 24 hr 06/19/23 21:00 06/20/23 06:00 Temperature 98.3 F 97.7 F Pulse Rate 106 H 91 Respiratory Rate 20 16 Blood Pressure 159/79 H 144/72 H Pulse Oximetry 98 97 Oxygen Delivery Method Room Air Room Air BMI result Body Mass Index 44.5 Labs 06/12/23 16:47 06/18/23 13:51 Labs: Laboratory Results - last 48 hr 06/18/23 06/18/23 06/18/23 08:02 10:13 11:52 Sodium Potassium Chloride Carbon Dioxide Anion Gap BUN Creatinine Estim Creat Clear Calc Estimated GFR POC Glucose 379 H* 470 H* 344 H Random Glucose Calcium 06/18/23 06/18/23 06/18/23 13:51 16:12 21:24 Sodium 133 L Potassium 4.4 Chloride 100 Carbon Dioxide 23 Anion Gap 14 BUN 21 H Creatinine 1.10 Estim Creat Clear Calc 102.4 Estimated GFR > 60 POC Glucose 371 H* 275 H Random Glucose 489 H* Calcium 9.5 06/19/23 06/19/23 06/19/23 09:16 12:44 17:48 Sodium Potassium Chloride Carbon Dioxide Anion Gap BUN Creatinine Estim Creat Clear Calc Estimated GFR POC Glucose 367 H* 336 H 314 H Random Glucose Calcium 06/19/23 20:39 Sodium Potassium Chloride Carbon Dioxide Anion Gap BUN Creatinine Estim Creat Clear Calc Estimated GFR POC Glucose 468 H* Random Glucose Calcium Medications Medications Current Medications Acetaminophen (Acetaminophen 325 Mg Tablet) 650 mg PO Q6H PRN PRN Reason: Headache/Pain Mild Scale (1-3) Al Hydroxide/Mg Hydroxide (Magnesium Hydrox/Alum Hydrox 30 Ml Oral.Susp) 30 ml PO Q6H PRN PRN Reason: Heartburn/Nausea Albuterol Sulfate (Albuterol Sulfate 90 Mcg 8 Gm Inhaler) 2 puff INHALE Q8H PRN PRN Reason: for wheezing Apixaban (Apixaban 5 Mg Tablet) 5 mg PO BID [facility] Last Admin: 06/19/23 22:36 Dose: Not Given Buspirone HCl (Buspirone Hcl 10 Mg Tablet) 30 mg PO BID [facility] Last Admin: 06/19/23 22:36 Dose: 30 mg Clonidine HCl (Clonidine Hcl 0.1 Mg Tablet) 0.1 mg PO TID PRN; Protocol PRN Reason: anxiety/restlessness Last Admin: 06/19/23 19:30 Dose: 0.1 mg Escitalopram Oxalate (Escitalopram Oxalate 20 Mg Tablet) 20 mg PO DAILY [facility] Last Admin: 06/19/23 09:16 Dose: Not Given Hydroxyzine HCl (Hydroxyzine Hcl 25 Mg Tablet) 25 mg PO Q6H PRN PRN Reason: Anxiety Last Admin: 06/19/23 19:30 Dose: 25 mg Insulin Glargine (Insulin Glargine,Hum.Rec.Anlog 100 Unit/Ml 10 Ml Vial) 60 unit SUBCUT BEDTIME [facility] Last Admin: 06/19/23 21:02 Dose: 60 unit Insulin Glargine (Insulin Glargine,Hum.Rec.Anlog 100 Unit/Ml 10 Ml Vial) 20 unit SUBCUT DAILY [facility] Insulin Human Lispro (Insulin Lispro 100 Unit/Ml 3 Ml Vial) 0 unit SUBCUT QIDACHS [facility]; Protocol Last Admin: 06/19/23 21:04 Dose: 16 unit Insulin Human Lispro (Insulin Lispro 100 Unit/Ml 3 Ml Vial) 10 unit SUBCUT QIDACHS [facility] Last Admin: 06/19/23 21:04 Dose: 10 unit Lidocaine (Lidocaine 4 % Patch Adh..Patch) 2 patch TRANSDERMA DAILY PRN PRN Reason: pain Last Admin: 06/18/23 00:17 Dose: 2 patch Lidocaine (Lidocaine 4 % Patch Adh..Patch) 1 patch TRANSDERMA BID [facility]; Protocol Last Admin: 06/19/23 22:38 Dose: Not Given Lisinopril (Lisinopril 10 Mg Tablet) 30 mg PO DAILY [facility]; Protocol Last Admin: 06/19/23 09:16 Dose: Not Given Loperamide HCl (Loperamide Hcl 2 Mg Capsule) 4 mg PO Q4H PRN PRN Reason: Diarrhea Last Admin: 06/20/23 07:09 Dose: 4 mg Magnesium Hydroxide (Milk Of Magnesia 30 Ml Oral.Susp) 30 ml PO DAILY PRN PRN Reason: Constipation Metformin HCl (Metformin Hcl Er 500 Mg Tab.Er.24h) 1,000 mg PO BIDWM [facility] Ondansetron HCl (Ondansetron Odt 4 Mg Tab.Rapdis) 4 mg TRANSLINGU Q8H PRN PRN Reason: Nausea and Vomiting Last Admin: 06/14/23 11:21 Dose: 4 mg Quetiapine Fumarate (Quetiapine Fumarate 50 Mg Tablet) 50 mg PO BEDTIME [facility] Last Admin: 06/19/23 22:36 Dose: 50 mg Risperidone (Risperidone 1 Mg Tablet) 1 mg PO BID [facility] Last Admin: 06/19/23 22:37 Dose: 1 mg Tramadol HCl (Tramadol Hcl 50 Mg Tablet) 50 mg PO TID PRN PRN Reason: Pain, Severe (Pain Scale 7-10) Last Admin: 06/14/23 11:21 Dose: 50 mg Trazodone HCl (Trazodone Hcl 50 Mg Tablet) 50 mg PO BEDTIME MRX1 PRN PRN Reason: Insomnia Zolpidem Tartrate (Zolpidem Tartrate 5 Mg Tablet) 10 mg PO BEDTIME PRN PRN Reason: insomnia Last Admin: 06/14/23 20:48 Dose: 10 mg Allergies Allergies Allergy/AdvReac Type Severity Reaction Status Date / Time Penicillins [PENICILLINS] Allergy Unknown RASH Verified 06/12/23 17:27 Assessment & Plan Assessment & Plan (1) MDD (major depressive disorder), recurrent, severe, with psychosis: Status: Acute Code(s): F33.3 - Major depressive disorder, recurrent, severe with psychotic symptoms (2) PTSD (post-traumatic stress disorder): Status: Acute Code(s): F43.10 - Post-traumatic stress disorder, unspecified (3) Opioid use disorder: Status: Acute Code(s): F11.90 - Opioid use, unspecified, uncomplicated Plan Patient is a 53 year old male with reported hx of Bipolar d/o, opiate use d/o and cocaine use d/o who was assessed by crisis d/t suicidal ideation with no plan secondary to increased life stressors. Plan: CV 15 minute safety checks continue home medications addiction medicine consult obtain collateral Start: risperidal 1mg PO BID;risk/benefits discussed 06/14: keeping to self. Pt reports feeling okay today; pt stated, I think I'm done withdrawing because the last time I used was on Sunday. I'm still worried about what will happen with the eclipse because I go to a [employer] bud[employer] and they say a lot of things are going to happen . Pt reports having suicidal ideation that comes and goes because I don't know what will happen during the eclipse . Pt reports he is no longer having auditory hallucinations. pt denies HI/VH/AH. 06/15: insomnia- Reports Seroquel is helpful at 50 mg. aware of potential issues with blood sugars, but also risks and balance of low-dose, verses poor sleep and impact on mental state taken into account 06/16: no changes 06/17: Social with peers. Pt reports feeling good today; Pt reports he continues anxious regarding solar eclipse today d/t his [employer]al beliefs. denies SI/HI/VH/AH. He would like to be discharged home soon. Medication compliant intermittently. Ongoing significantly elevated blood sugars; pt educated regarding diet and blood sugar management. 06/18: Pt reports feeling good today; pt stated, being here helped me clear my thoughts. I'm glad nothing happened during the eclipse . denies SI/HI/VH/AH. Pt reports he is looking forward to returning home. Plan to discharge on . 06/19: Pt reports feeling good today; pt stated, I'm feeling a lot better than when I came in here. Yesterday I had a visit with my girlfriend. It was nice. We're going to keep going to buddhism and gym together to help me stay sober . denies SI/HI/VH/AH. Patient educated on: diagnosis, medication risk/benefits, substance abuse and therapeutic strategies Informed Consent: understands Reason for continued inpatient stay Substantial Risk for: stable for discharge Time Spent With Patient Time: Total time managing care of this patient today 20____ minutes.
[2023-06-20 08:18] LABS: Glucose, Whole Blood 282 mg/dL (60-115)
[2023-06-20] MEDS: Insulin Lispro 100 UNIT/ML 3 ML VIAL SUBCUT ×4 (08:26→21:11)
[2023-06-20] MEDS: Insulin Lispro 100 UNIT/ML 3 ML VIAL 10 UNIT SUBCUT ×3 (08:26→17:58)
[2023-06-20] MEDS: Insulin Glargine,Hum.rec.anlog 100 UNIT/ML 10 ML VIAL 20 UNIT SUBCUT (08:26)
[2023-06-20 12:26] LABS: Glucose, Whole Blood 366 mg/dL (60-115)
[2023-06-20 17:38] LABS: Glucose, Whole Blood 332 mg/dL (60-115)
[2023-06-20] MEDS: metFORMIN HCl ER 500 MG TAB.ER.24H 1000 MG PO (17:57)
[2023-06-20 19:50] VITALS: BP 137/93; PULSE 82; RESP 20; TEMP 36.4; O2SAT 97
[2023-06-20 20:58] LABS: Glucose, Whole Blood 373 mg/dL (60-115)
[2023-06-20] MEDS: traMADoL HCL 50 MG TABLET PO (20:58)
[2023-06-20] MEDS: QUEtiapine Fumarate 50 MG TABLET PO (20:58)
[2023-06-20] MEDS: Insulin Glargine,Hum.rec.anlog 100 UNIT/ML 10 ML VIAL 60 UNIT SUBCUT (21:09)
[2023-06-20] MEDS: Lidocaine 4 % Patch ADH..PATCH 2 PATCH TRANSDERMA (21:20)
[2023-06-21 08:08] LABS: Glucose, Whole Blood 447 mg/dL (60-115)
[2023-06-21 08:44] VITALS: BP 136/94; PULSE 107; RESP 18; TEMP 36.4; O2SAT 97
[2023-06-21] MEDS: Insulin Glargine,Hum.rec.anlog 100 UNIT/ML 10 ML VIAL 24 UNIT SUBCUT (09:05)
[2023-06-21] MEDS: Insulin Lispro 100 UNIT/ML 3 ML VIAL 12 UNIT SUBCUT ×2 (09:07→12:18)
[2023-06-21] MEDS: Insulin Lispro 100 UNIT/ML 3 ML VIAL SUBCUT ×2 (09:08→12:17)
[2023-06-21] MEDS: metFORMIN HCl ER 500 MG TAB.ER.24H 1000 MG PO (09:09)
[2023-06-21 09:16] LABS: Venous Blood Gas Refer to POC result
[2023-06-21 09:16] LABS: VBG Base Excess 0.9 mmol/L; VBG HCO3 27 mmol/L (22-26); VBG pCO2 48 mmHg; VBG pH 7.35 (7.32-7.43); VBG pO2 38 mmHg
[2023-06-21 09:27] LABS: Beta-Hydroxybutyrate 0.13 mmol/L (0.02-0.27)
[2023-06-21 09:30] LABS: Anion Gap 11 (12-20); Blood Urea Nitrogen 26 mg/dL (9-16); Calcium 9.7 mg/dL (8.4-10.2); Carbon Dioxide 27 mmol/L (22-29); Chloride 103 mmol/L (96-108); Creatinine Clr Calc Pharmacy 83.4; Estimated Glomerular Filt Rate 56; Glucose Random 372 mg/dL (60-115); Potassium 4.7 mmol/L (3.3-5.1); Sodium 136 mmol/L (135-145)
--- NOTE | 2023-06-21 09:33 | P.DS_ITS ---
DS: Providers Provider Date of Service: 06/21/23 Date of admission: 06/13/23 12:49 Date of discharge: 06/21/23 Primary care physician: Julio Carter MD Admitting clinician: Goldie Putnam Attending physician on admission: Chris Brumfield Consults: 06/13/23 15:22 Addiction Medicine Routine Consulting Provider: Addiction Covering Reason for consultation: withdrawal opioids, fentanyl, and cocaine 06/18/23 17:49 Consult to Hospitalist Routine Comment: Consulting Provider: Hospitalist Reason For Exam: hyperglycemia Attending physician on discharge: Chris Brumfield Discharging clinician: Goldie Putnam DS: Diagnosis Discharge Diagnosis (1) MDD (major depressive disorder), recurrent, severe, with psychosis: Status: Acute (2) PTSD (post-traumatic stress disorder): Status: Acute (3) Opioid use disorder: Status: Acute DS: Medications Discharge Medications Home Medications: Home Medications ?Medication ?Instructions ?Recorded ?Confirmed buspirone 30 mg tablet 30 mg PO BID 06/12/23 06/12/23 dulaglutide 3 mg/0.5 mL 3 mg subcut QWEEK 06/12/23 06/12/23 subcutaneous pen injector insulin glargine-yfgn 100 unit/mL 50 unit subcut BEDTIME 06/13/23 06/13/23 (3 mL) subcutaneous pen Previous Rx's ?Medication ?Instructions ?Recorded escitalopram oxalate 20 mg tablet 20 mg PO DAILY #30 tabs 12/05/21 lidocaine 5 % topical patch 2 patch topical DAILY PRN pain #60 01/29/23 ea apixaban 5 mg tablet (Eliquis) 5 mg PO BID 30 days #60 tabs 03/19/23 lisinopril 30 mg tablet 30 mg PO DAILY #90 tabs 03/19/23 albuterol sulfate 90 mcg/actuation 2 puff PO Q8H PRN for wheezing #18 05/04/23 aerosol inhaler (Ventolin HFA) ea tramadol 50 mg tablet 50 mg PO TID PRN pain 30 days #90 06/04/23 tabs zolpidem 10 mg tablet 10 mg PO BEDTIME PRN insomnia 30 06/04/23 days #30 tabs Mental Status Exam Mental Status Exam Narrative: Pt is alert and oriented; behavior is cooperative, friendly and calm; dressed in casual attire; mood is described as good ; eye contact appropriate; Speech is normal rate, volume and prosody and not pressured; thought process is organized; Thought content is on discharge; denies SI/HI/VH/AH. Data Data Completed and Pending Completed studies during hospitalization [Text1]: 06/14/23 06/14/23 06/14/23 13:29 17:17 20:51 Hold Purple Top VBG pH VBG pCO2 VBG pO2 VBG HCO3 VBG O2 Saturation VBG Base Excess Sodium Potassium Chloride Carbon Dioxide Anion Gap BUN Creatinine Estim Creat Clear Calc Estimated GFR POC Glucose 435 H* 401 H* 483 H* Random Glucose Calcium Beta-Hydroxybutyrate 06/15/23 06/15/23 06/15/23 08:38 12:36 17:18 Hold Purple Top VBG pH VBG pCO2 VBG pO2 VBG HCO3 VBG O2 Saturation VBG Base Excess Sodium Potassium Chloride Carbon Dioxide Anion Gap BUN Creatinine Estim Creat Clear Calc Estimated GFR POC Glucose 452 H* 409 H* 514 H* Random Glucose Calcium Beta-Hydroxybutyrate 06/15/23 06/16/23 06/16/23 21:10 08:43 12:35 Hold Purple Top VBG pH VBG pCO2 VBG pO2 VBG HCO3 VBG O2 Saturation VBG Base Excess Sodium Potassium Chloride Carbon Dioxide Anion Gap BUN Creatinine Estim Creat Clear Calc Estimated GFR POC Glucose 408 H* 435 H* 532 H* Random Glucose Calcium Beta-Hydroxybutyrate 06/16/23 06/16/23 06/16/23 13:57 17:40 20:46 Hold Purple Top VBG pH VBG pCO2 VBG pO2 VBG HCO3 VBG O2 Saturation VBG Base Excess Sodium Potassium Chloride Carbon Dioxide Anion Gap BUN Creatinine Estim Creat Clear Calc Estimated GFR POC Glucose 540 H* 369 H* 490 H* Random Glucose Calcium Beta-Hydroxybutyrate 06/17/23 06/17/23 06/17/23 08:26 12:17 17:37 Hold Purple Top VBG pH VBG pCO2 VBG pO2 VBG HCO3 VBG O2 Saturation VBG Base Excess Sodium Potassium Chloride Carbon Dioxide Anion Gap BUN Creatinine Estim Creat Clear Calc Estimated GFR POC Glucose 335 H 372 H* 403 H* Random Glucose Calcium Beta-Hydroxybutyrate 06/17/23 06/18/23 06/18/23 20:33 08:02 10:13 Hold Purple Top VBG pH VBG pCO2 VBG pO2 VBG HCO3 VBG O2 Saturation VBG Base Excess Sodium Potassium Chloride Carbon Dioxide Anion Gap BUN Creatinine Estim Creat Clear Calc Estimated GFR POC Glucose 389 H* 379 H* 470 H* Random Glucose Calcium Beta-Hydroxybutyrate 06/18/23 06/18/23 06/18/23 11:52 13:51 16:12 Hold Purple Top VBG pH VBG pCO2 VBG pO2 VBG HCO3 VBG O2 Saturation VBG Base Excess Sodium 133 L Potassium 4.4 Chloride 100 Carbon Dioxide 23 Anion Gap 14 BUN 21 H Creatinine 1.10 Estim Creat Clear Calc 102.4 Estimated GFR > 60 POC Glucose 344 H 371 H* Random Glucose 489 H* Calcium 9.5 Beta-Hydroxybutyrate 06/18/23 06/19/23 06/19/23 21:24 09:16 12:44 Hold Purple Top VBG pH VBG pCO2 VBG pO2 VBG HCO3 VBG O2 Saturation VBG Base Excess Sodium Potassium Chloride Carbon Dioxide Anion Gap BUN Creatinine Estim Creat Clear Calc Estimated GFR POC Glucose 275 H 367 H* 336 H Random Glucose Calcium Beta-Hydroxybutyrate 06/19/23 06/19/23 06/20/23 17:48 20:39 08:00 Hold Purple Top VBG pH VBG pCO2 VBG pO2 VBG HCO3 VBG O2 Saturation VBG Base Excess Sodium Potassium Chloride Carbon Dioxide Anion Gap BUN Creatinine Estim Creat Clear Calc Estimated GFR POC Glucose 314 H 468 H* 282 H Random Glucose Calcium Beta-Hydroxybutyrate 06/20/23 06/20/23 06/20/23 12:22 17:27 20:47 Hold Purple Top VBG pH VBG pCO2 VBG pO2 VBG HCO3 VBG O2 Saturation VBG Base Excess Sodium Potassium Chloride Carbon Dioxide Anion Gap BUN Creatinine Estim Creat Clear Calc Estimated GFR POC Glucose 366 H* 332 H 373 H* Random Glucose Calcium Beta-Hydroxybutyrate 06/21/23 06/21/23 06/21/23 08:02 09:02 09:10 Hold Purple Top SEE NOTE VBG pH 7.35 VBG pCO2 48 VBG pO2 38 VBG HCO3 27 H VBG O2 Saturation 54.0 VBG Base Excess 0.9 Sodium 136 Potassium 4.7 Chloride 103 Carbon Dioxide 27 Anion Gap 11 L BUN 26 H Creatinine 1.35 Estim Creat Clear Calc 83.4 Estimated GFR 56 POC Glucose 447 H* Random Glucose 372 H* Calcium 9.7 Beta-Hydroxybutyrate 0.13 DS: Summary Hospital Course Hospital Course: Patient is a 53 year old male with reported hx of Bipolar d/o, opiate use d/o and cocaine use d/o who was assessed by crisis d/t suicidal ideation with no plan secondary to increased life stressors. Per crisis report, pt endorsed increased panic, vague suicidal ideation and auditory hallucinations. Patient reported his ex- recently , which has taken a toll on him and his daughter. He reported feeling anxious and depressed d/t his daughter recently endorsing SI following the of her mother. Patient has outpatient providers through [facility]. UTOX positive for opiates, fentanyl, cocaine and marijuana. During admission assessment, patient presents calm and cooperative. He reports feeling depressed and anxious today; pt stated, I came to the hospital because I'm having bad thoughts of suicide. I'm having too many problems. My ex- , I'm having financial problems and I think it's going to be the end of the world because of the eclipse . Pt reports suicidal ideation with plan to jump off the bridge ; pt denies any hx of SIB/SA. Pt reports auditory hallucinations that are telling him to harm himself; pt stated, I sometimes get voices that come and go for the past couple years . Pt denies HI/VH. Pt reports he has been using heroin (10 bags) and cocaine (unspecified amount), whenever I have money . Pt reports he would like help in getting rid of the voices and the racing thoughts . Pt reports being medication compliant; he denies any hx of antipsychotics or mood stabilizers. Addiction consult placed; pt reports he doesn't want to be on methadone because I'll be fine in a day or two . During hospital course, CV 15 minute safety checks continue home medications addiction medicine consult obtain collateral Start: risperidal 1mg PO BID;risk/benefits discussed keeping to self. Pt reports feeling okay today; pt stated, I think I'm done withdrawing because the last time I used was on Sunday. I'm still worried about what will happen with the eclipse because I go to a [employer] and they say a lot of things are going to happen . Pt reports having suicidal ideation that comes and goes because I don't know what will happen during the eclipse . Pt reports he is no longer having auditory hallucinations. pt denies HI/VH/AH. insomnia- Reports Seroquel is helpful at 50 mg. aware of potential issues with blood sugars, but also risks and balance of low-dose, verses poor sleep and impact on mental state taken into account Social with peers. Pt reports feeling good today; Pt reports he continues anxious regarding solar eclipse today d/t his church beliefs. denies SI/HI/VH/AH. He would like to be discharged home soon. Medication compliant intermittently. Ongoing significantly elevated blood sugars; pt educated regarding diet and blood sugar management. Pt reports feeling good today; pt stated, being here helped me clear my thoughts. I'm glad nothing happened during the eclipse . denies SI/HI/VH/AH. Pt reports he is looking forward to returning home. Plan to discharge on . Pt reports feeling good today; pt stated, I'm feeling a lot better than when I came in here. Yesterday I had a visit with my girlfriend. It was nice. We're going to keep going to [employer] and gym together to help me stay sober . Pt reports he plans on following up with his outpatient providers. denies SI/HI/VH/AH. Time spent discussing smoking cessation with patient: 3 to 10 minutes Status at Discharge Cognitive/behavioral status at discharge: Patient was interviewed prior to discharge and found to be fully oriented and without any SI or HI. Patient has insight and demonstrates good judgment in terms of wanting to pursue treatment. Patient has a safety plan that includes presenting to the closest ER or calling 911 if feeling unsafe. Functional status at discharge: independent ambulation Overall status at discharge: patient is back to baseline Time Spent with Patient Time attestation: Total time managing care of this patient today _30___ minutes. Time spent: Less than 30 minutes Discharge Plan Discharge Anticipated Discharge Date/Time: 06/21/23 11:30 Patient Disposition: Home, Self-Care Discharge Diagnosis: MDD, PTSD, Opioid use d/o, cocaine use d/o. Referrals: Therapy: Darwin Zhao ([facility]) [Other] - 07/03/23 3:00 pm (Telehealth ) Psych: Bhakti Kenny ([facility]) [Other] - 07/11/23 4:00 pm (Telehealth) CSP Referral: [facility] ([facility]) [Other] - 1 Week (Once assigned a worker, the worker will call you to schedule an appointment. If you have not heard from the worker by 06/26, please call [facility] at the above number to follow up) Julio Carter MD [Primary Care Provider] - 1 Week (PCP Dr. Carter office will contact patient with follow up appt.) Discharge Medications: Continued escitalopram oxalate 20 mg tablet 20 mg PO DAILY Qty: 30 1RF lidocaine 5 % adhesive patch,medicated 2 patch topical DAILY PRN (Reason: pain) Qty: 60 5RF Rx Instructions: leave on most painful area for up to 12 hrs. keep off for 12 hrs albuterol sulfate [Ventolin HFA] 90 mcg/actuation HFA aerosol inhaler 2 puff PO Q8H PRN (Reason: for wheezing) Qty: 18 3RF tramadol 50 mg tablet 50 mg PO TID PRN (Reason: pain) 30 Days Qty: 90 0RF zolpidem 10 mg tablet 10 mg PO BEDTIME PRN (Reason: insomnia) 30 Days Qty: 30 1RF buspirone 30 mg tablet 30 mg PO BID dulaglutide 3 mg/0.5 mL pen injector 3 mg subcut QWEEK Rx Instructions: QMONDAY insulin glargine-yfgn 100 unit/mL (3 mL) insulin pen 50 unit subcut BEDTIME Eliquis 5 mg tablet 5 mg PO BID 30 Days Qty: 60 2RF Rx Instructions: x30 dats lisinopril 30 mg tablet 30 mg PO DAILY Qty: 90 1RF Discharge Orders: Discharge Order (Routine); Ordered 06/21/23 Ordered By: Goldie Putnam Diet: Regular diet Activity on Discharge: As tolerated Stand Alone Forms: Patient Portal Discharge page, Community Support Print Language: Bengali Care Plan Goals: Maintain mood and safe behaviors Take medications as prescribed Continue to pursue sobriety Practice coping skills Continue with outpatient providers and reach out to them as needed Health Concerns: Mood stability and behaviors Sobriety Follow up with outpatient providers regarding blood sugars and diabetes. Plan of Treatment: Follow up with your PCP, psychiatric provider and other outpatient providers regarding above concerns Take medications as prescribed Assessment: Patient was interviewed prior to discharge and found to be fully oriented and without any SI or HI. Patient has insight and demonstrates good judgment in terms of wanting to pursue treatment. Patient has a safety plan that includes presenting to the closest ER or calling 911 if feeling unsafe. Discharge Date/Time: 06/21/23 12:30
[2023-06-21] MEDS: Naloxone HCl Nasal TAKE HOME 4 MG SPRAY 8 MG NOSTRILALT (12:01)
[2023-06-21 12:14] LABS: Glucose, Whole Blood 313 mg/dL (60-115)
== END 2023-06-21 12:30 | disposition home or self-care (01) | DRG 751 ==
LOC: HO.ED 06-13 00:15 → HO.PADLT16 06-13 12:56
PROVIDERS: Family Medicine; Physician Assistant; Admitting Provider Registered Nurse; Emergency Provider Emergency Medicine Emergency Medical Services; PCP Internal Medicine; Responsible Provider Registered Nurse; Visit Provider Psychiatry & Neurology Psychiatry
DX: F33.3 Major depressive disorder, recurrent, severe with psychotic symptoms (principal); R45.851 Suicidal ideations; F43.10 Post-traumatic stress disorder, unspecified; F14.10 Cocaine abuse, uncomplicated; F11.90 Opioid use, unspecified, uncomplicated; F19.10 Other psychoactive substance abuse, uncomplicated; Z20.822 Contact with and (suspected) exposure to COVID-19; Z79.01 Long term (current) use of anticoagulants; Z79.4 Long term (current) use of insulin; Z79.85 Long-term (current) use of injectable non-insulin antidiabetic drugs; Z79.899 Other long term (current) drug therapy
CPT/HCPCS: 36415; 80048; 80053; 80061; 80307; 81001; 81003; 82010; 82140; 82803; 82947; 85025; 87635; 93005; 97116; 97162; 99285

== ENCOUNTER → 2023-06-13 08:10 | Outpatient (BNV) | payer OTHER, SELFPAY | PROVIDERS: Emergency Provider Emergency Medicine Emergency Medical Services; PCP Internal Medicine; Visit Provider Internal Medicine Cardiovascular Disease | DX: R94.31 Abnormal electrocardiogram [ECG] [EKG] (principal) | CPT/HCPCS: 93010 ==

== ENCOUNTER → 2023-06-13 12:49 | Outpatient (BNV) | payer OTHER, SELFPAY | PROVIDERS: Admitting Provider Registered Nurse; Emergency Provider Emergency Medicine Emergency Medical Services; PCP Internal Medicine; Responsible Provider Registered Nurse; Visit Provider Registered Nurse | DX: F33.3 Major depressive disorder, recurrent, severe with psychotic symptoms (principal); F43.11 Post-traumatic stress disorder, acute; F11.90 Opioid use, unspecified, uncomplicated | CPT/HCPCS: 90792; 99231; 99232; 99238; 99499 ==

== ENCOUNTER 2023-06-27 14:03 | Emergency (ER) | payer OTHER, SELFPAY ==
[2023-06-27 14:24] VITALS: BP 129/52; PULSE 110; RESP 14; TEMP 37.4; O2SAT 94; BMI 45.6
--- NOTE | 2023-06-27 14:26 | ED.GENADULT ---
HPI - General Adult General Chief complaint: Extremity Problem Stated complaint: knee problems? inflammed leg Time Seen by Provider: 06/27/23 14:41 Source: patient Mode of arrival: ambulatory Limitations: no limitations History of Present Illness HPI narrative: Patient comes to the emergency room complaining of bilateral lower extremity erythema and swelling. Patient states that the swelling has been present for 3+ years. However, patient noted that the erythema has been getting worse over the last few years. Patient denies fever or chills. No lower extremity pain, patient takes Eliquis for DVTs. Patient admits that prior to arrival patient used what he thought was heroin, but suspects that there was something else in it. Patient denies chest pain or shortness of breath. Related Data Home Medications ?Medication ?Instructions ?Recorded ?Confirmed buspirone 30 mg tablet 30 mg PO BID 06/12/23 06/12/23 dulaglutide 3 mg/0.5 mL 3 mg subcut QWEEK 06/12/23 06/12/23 subcutaneous pen injector insulin glargine-yfgn 100 unit/mL 50 unit subcut BEDTIME 06/13/23 06/13/23 (3 mL) subcutaneous pen Previous Rx's ?Medication ?Instructions ?Recorded escitalopram oxalate 20 mg tablet 20 mg PO DAILY #30 tabs 12/05/21 lidocaine 5 % topical patch 2 patch topical DAILY PRN pain #60 01/29/23 ea apixaban 5 mg tablet (Eliquis) 5 mg PO BID 30 days #60 tabs 03/19/23 lisinopril 30 mg tablet 30 mg PO DAILY #90 tabs 03/19/23 albuterol sulfate 90 mcg/actuation 2 puff PO Q8H PRN for wheezing #18 05/04/23 aerosol inhaler (Ventolin HFA) ea zolpidem 10 mg tablet 10 mg PO BEDTIME PRN insomnia 30 06/04/23 days #30 tabs tramadol 50 mg tablet 50 mg PO TID PRN pain 30 days #90 06/22/23 tabs Allergies Allergy/AdvReac Type Severity Reaction Status Date / Time Penicillins [PENICILLINS] Allergy Unknown RASH Verified 06/27/23 14:33 Review of Systems Review of Systems: Constitutional : No Weight loss, No Fever, No Chills, No Night Sweats, No Fatigue, No Malaise ENT/Mouth : No Hearing loss, No Ear Pain, No Nasal Congestion, No Sinus Pain, No Hoarseness, No sore throat, No Rhinorrhea, No Swallowing Difficulty Eyes: No Eye Pain, No Swelling, No Redness, No Foreign Body, No Discharge, No Vision Changes Cardiovascular : No Chest Pain, No SOB, No Dyspnea on Exertion, No Orthopnea, No Edema, No Palpitations Respiratory : No Cough, No Sputum, No Wheezing, No Smoke Exposure, No Dyspnea Gastrointestinal : No Nausea, No Vomiting, No Diarrhea, No Constipation, No abdominal Pain, No Hematochezia, No Melena Genitourinary : no irregular bleeding, No Dysuria, No Urinary Frequency, No Hematuria, No Urinary Incontinence, No Urgency, No Flank Pain, No Urinary Flow Changes, No Hesitancy Musculoskeletal : No joint pain, No Myalgias, No Joint Swelling Skin : Bilateral lower extremity acute on chronic erythema Neuro : No Weakness, No Numbness, No Paresthesias, No Loss of Consciousness, No Dizziness, No Headache Psych : No Anxiety/Panic, No Depression, No SI/HI/AH/VH, No Social Issues, Heme/Lymph: No Bruising, No Bleeding,No Lymphadenopathy Endocrine : No Polyuria, No Polydipsia, No Temperature Intolerance PMFSH Past Medical History Medical History Cocaine abuse Erectile dysfunction Polysubstance abuse Paroxysmal atrial fibrillation with rapid ventricular response Lumbar degenerative disc disease Substance abuse Diabetes Depression Overactive bladder Arthritis BPH (benign prostatic hyperplasia) Asthma Seizure Morbid obesity with BMI of 40.0-44.9, adult Benign essential hypertension Insomnia Primary osteoarthritis of both knees Anxiety Family history of thyroid disorder Type 2 diabetes mellitus with hyperglycemia Surgical History No history of previous surgery Family History Family History Father ETOH abuse Mother Diabetes Arthritis of knee Hypertension Other Mental health problem Substance abuse Social History Social History Household Members: None Household Members Other:: 2 Housing: Apartment Housing Other:: rents a room Do you presently have visiting nurse or other home services: No Alcohol intake: current Alcohol intake frequency: a few times a month Comment: refused bed alarm Patient Tobacco Use Status: Never used Tobacco e-Cigarette/Vaping Use: Never Used Second Hand Smoke Exposure: No Substance Use Type: Crack/Cocaine, Heroin and Marijuana Advance Directives: Yes Advance Directives on File: Yes Advance Directives Date on File: 02/23/22 service: No Current occupational status: unemployed and disabled Sexual orientation: Straight/Heterosexual Cognitive needs: No Hearing needs: No Vision needs: No Physical Exam ED Vital Signs: Vital Signs - 24 hr 06/27/23 14:24 Temperature 99.4 F Pulse Rate 110 H Respiratory Rate 14 Blood Pressure 129/52 L Pulse Oximetry 94 Oxygen Delivery Method Room Air BMI result Body Mass Index 45.6 Const Other: Appearance: Alert. Oriented X3. No acute distress. Eyes: Pupils equal, round and reactive to light. ENT: Pharynx normal. Neck: Normal inspection. Neck supple. No lymph nodes noted. No crepitus CVS: Normal heart rate and rhythm. Pulses normal. Normal S1 and S2 Respiratory: No respiratory distress. Breath sounds normal. No Wheezing. No rales Abdomen: Soft and nontender. No rigidity. No distention. Skin: Skin warm and clammy. Normal skin color. Normal skin turgor. Extremities: Bilateral lower extremity nonpitting edema, chronic venous stasis, erythema, see pictures below Neuro: Oriented X 3. No motor deficit. No sensory deficit. Moving all extremities. No slurred speech. CN 2 through 12 grossly intact Psych: calm, cooperative, normal affect Course Course Course Narrative: RME:?53 yo male hx of bipolar disorder, PTSD, polysubstance use, MDD, T2DM, morbid obesity, OA of both knees, depression, HTN, asthma, afib w/ RVR, lymphedema here w/ swelling to both lower legs. history limited due to patient's mental status. admits to smoking marijuana before arrival. denying other ilicit substances. acutely intoxicated on unknown substance. unable to answer questions appropriately. drowsy in triage. nodding off. erythema and edema noted to bilateral lower extremities. exam limited in triage as pt is completely dressed. Full HPI, ROS and PE to be performed by the primary ED provider. Medical Decision Making Medical Decision Making MDM Narrative: My interpretation of labs: White blood cell count slightly elevated, lactic acid normal. Patient's glucose elevated -patient received IV fluids and insulin for hyperglycemia -patient has significant erythema of the lower extremities bilaterally. -patient unlikely to benefit of only p.o. antibiotics, IV antibiotics would be best for the patient. -I discussed the patient with Dr. Mora, patient being admitted -patient does not have calf pain. Patient has had ultrasounds in the past for similar looking extremities, ultrasound for DVTs have been negative - Differential Diagnosis Differential Diagnoses: The differential diagnosis associated with the presentation includes (Cellulitis, hyperglycemia) Admission/Observation Consideration of admission/observation: Escalation of care including admission/observation considered Consult Healthcare Provider Management of the patient was discussed with: Hospitalist Lab Data [facility] Lab Attestation statement: I reviewed the patient's lab results. 06/27/23 15:40 06/27/23 15:40 Labs: Lab Results 06/27/23 06/27/23 Range/Units 15:40 15:41 WBC 12.2 H (4.8-10.8) X10*3/uL RBC 4.09 L D (4.60-5.80) X10*6/uL Hgb 12.3 L D (14.0-18.0) g/dl Hct 35.5 L D (42.0-52.0) % MCV 86.8 (80.0-98.0) fL MCH 30.1 (27.0-33.0) pg MCHC 34.6 (31.0-36.0) g/dl RDW 12.5 (11.0-16.0) % Plt Count 228 D (160-400) X10*3/uL MPV 10.1 (9.4-12.4) fL Immature Gran % (Auto) 0.3 (0.0-0.4) % Neut % (Auto) 86.0 H (45-73) % Lymph % (Auto) 7.4 L (20-40) % [place] % (Auto) 5.9 (2-11) % Eos % (Auto) 0.2 (0-4) % Baso % (Auto) 0.2 (0-2) % Lymph # (Auto) 0.9 L (1.2-4.9) X10*3/uL [place] # (Auto) 0.7 (0.1-1.2) X10*3/uL Eos # (Auto) 0.0 (0.0-0.4) X10*3/uL Baso # (Auto) 0.0 (0.0-0.2) X10*3/uL Abs Immat Gran (auto) 0.04 H (0.00-0.03) X10*3/uL Absolute Neuts (auto) 10.5 H (2.0-8.3) x10*3/uL Absolute Nucleated RBC 0.000 (0.0-0.012) X10*3/uL Nucleated RBC % (auto) 0.0 (0.0-0.2) /100WBC PT 12.7 (11.1-13.3) SEC INR 1.0 (0.9-1.1) Sodium 133 L (135-145) mmol/L Potassium 4.2 (3.3-5.1) mmol/L Chloride 100 (96-108) mmol/L Carbon Dioxide 27 (22-29) mmol/L Anion Gap 10 L (12-20) BUN 13 (9-16) mg/dL Creatinine 1.12 (0.5-1.4) mg/dL Estim Creat Clear Calc 105.3 Estimated GFR > 60 Random Glucose 424 H* (60-115) mg/dL Lactic Acid 1.2 (0.5-2.0) mmol/L Calcium 9.8 (8.4-10.2) mg/dL Magnesium 2.0 (1.6-2.6) mg/dL Total Bilirubin 0.5 (0.0-1.0) mg/dL AST 22 (5-37) U/L ALT 25 (0-40) U/L Alkaline Phosphatase 94 (39-117) U/L Total Creatine Kinase 213 H (38-174) U/L B-Natriuretic Peptide 68 (<100) pg/mL Total Protein 7.3 (6.5-8.0) g/dL Albumin 3.6 (3.5-5.0) g/dL Lipase 16 (8-78) U/L Ethyl Alcohol < 10 mg/dL Critical Care Time Critical Care Time Critical Care Time: Yes Total Critical Care Time: 60 Attestation: I have personally provided critical care time. Time includes review of lab data, radiology results, discussion with consultants, and monitoring for potential decompensation. Intervention performed as documented. Discharge Plan Discharge Clinical Impression: Bilateral cellulitis of lower leg, Acute hyperglycemia Patient Disposition: Admitted As Inpatient Prescriptions: No Action escitalopram oxalate 20 mg tablet 20 mg PO DAILY Qty: 30 1RF lidocaine 5 % adhesive patch,medicated 2 patch topical DAILY PRN (Reason: pain) Qty: 60 5RF Rx Instructions: leave on most painful area for up to 12 hrs. keep off for 12 hrs albuterol sulfate [Ventolin HFA] 90 mcg/actuation HFA aerosol inhaler 2 puff PO Q8H PRN (Reason: for wheezing) Qty: 18 3RF zolpidem 10 mg tablet 10 mg PO BEDTIME PRN (Reason: insomnia) 30 Days Qty: 30 1RF tramadol 50 mg tablet 50 mg PO TID PRN (Reason: pain) 30 Days Qty: 90 0RF buspirone 30 mg tablet 30 mg PO BID dulaglutide 3 mg/0.5 mL pen injector 3 mg subcut QWEEK Rx Instructions: QMONDAY insulin glargine-yfgn 100 unit/mL (3 mL) insulin pen 50 unit subcut BEDTIME Eliquis 5 mg tablet 5 mg PO BID 30 Days Qty: 60 2RF Rx Instructions: x30 dats lisinopril 30 mg tablet 30 mg PO DAILY Qty: 90 1RF Print Language: Ukrainian
[2023-06-27 15:53] LABS: MANUAL DIFF FLAG NO
[2023-06-27 15:55] LABS: Basophils Percent Auto 0.2 % (0-2); Eosinophils Percent Auto 0.2 % (0-4); Hematocrit 35.5 % (42.0-52.0); Hemoglobin 12.3 g/dl (14.0-18.0); Imm Gran Abs Auto 0.04 X10*3/uL (0.00-0.03); Imm Gran Pct Auto 0.3 % (0.0-0.4); Lymphocytes Absolute Auto 0.9 X10*3/uL (1.2-4.9); Lymphocytes Percent Auto 7.4 % (20-40); Mean Corpuscular HGB Conc 34.6 g/dl (31.0-36.0); Mean Corpuscular Hemoglobin 30.1 pg (27.0-33.0); Mean Corpuscular Volume 86.8 fL (80.0-98.0); Mean Platelet Volume 10.1 fL (9.4-12.4); Monocytes Absolute Auto 0.7 X10*3/uL (0.1-1.2); Monocytes Percent Auto 5.9 % (2-11); Neutrophils Absolute Auto 10.5 x10*3/uL (2.0-8.3); Platelet Count 228 X10*3/uL (160-400); Red Blood Count 4.09 X10*6/uL (4.60-5.80); Red Cell Distribution Width 12.5 % (11.0-16.0); White Blood Count 12.2 X10*3/uL (4.8-10.8)
[2023-06-27 16:04] LABS: Prothrombin Time 12.7 SEC (11.1-13.3)
[2023-06-27 16:09] LABS: Lactic Acid 1.2 mmol/L (0.5-2.0)
[2023-06-27 16:16] LABS: B Type Natriuretic Peptide 68 pg/mL (<100)
[2023-06-27 16:28] LABS: Alanine Aminotransferase 25 U/L (0-40); Albumin Level 3.6 g/dL (3.5-5.0); Alkaline Phosphatase 94 U/L (39-117); Anion Gap 10 (12-20); Aspartate Amino Transferase 22 U/L (5-37); Bilirubin Total 0.5 mg/dL (0.0-1.0); Blood Urea Nitrogen 13 mg/dL (9-16); Calcium 9.8 mg/dL (8.4-10.2); Carbon Dioxide 27 mmol/L (22-29); Chloride 100 mmol/L (96-108); Creatinine Clr Calc Pharmacy 105.3; Estimated Glomerular Filt Rate > 60; Ethanol < 10 mg/dL; Glucose Random 424 mg/dL (60-115); Lipase 16 U/L (8-78); Potassium 4.2 mmol/L (3.3-5.1); Sodium 133 mmol/L (135-145); Total Protein 7.3 g/dL (6.5-8.0)
[2023-06-27] MEDS: vancomycin/NS 2,000 MG/500 ML PLAST..BAG 250 MG IV (18:03)
--- NOTE | 2023-06-27 18:17 | P.HPHOSP_ITS ---
History of Present Illness Date of Service: 06/27/23 Chief Complaint: bilat leg pain 53-year-old male with known history of venous stasis cellulitis presents with approximately 4 days of worsening redness and warmth of both his legs. States prior to this he was not having such pain when he walked. He denies fever chills. He also notes that he used opiates prior to coming in; initially thought to be an overdose. Review of Systems 2 Review of Systems: Denies chest pain Denies shortness of breath Denies nausea vomiting diarrhea Denies fever chills [facility] Medical History Cocaine abuse Erectile dysfunction Polysubstance abuse Paroxysmal atrial fibrillation with rapid ventricular response Lumbar degenerative disc disease Substance abuse Diabetes Depression Overactive bladder Arthritis BPH (benign prostatic hyperplasia) Asthma Seizure Morbid obesity with BMI of 40.0-44.9, adult Benign essential hypertension Insomnia Primary osteoarthritis of both knees Anxiety Family history of thyroid disorder Type 2 diabetes mellitus with hyperglycemia Family History Father ETOH abuse Mother Diabetes Arthritis of knee Hypertension Other Mental health problem Substance abuse Surgical History No history of previous surgery Social History Household Members: None Household Members Other:: 2 Housing: Apartment Housing Other:: rents a room Do you presently have visiting nurse or other home services: No Alcohol intake: current Alcohol intake frequency: a few times a month Comment: refused bed alarm Patient Tobacco Use Status: Never used Tobacco e-Cigarette/Vaping Use: Never Used Second Hand Smoke Exposure: No Substance Use Type: Crack/Cocaine, Heroin and Marijuana Advance Directives: Yes Advance Directives on File: Yes Advance Directives Date on File: 02/23/22 service: No Current occupational status: unemployed and disabled Sexual orientation: Straight/Heterosexual Cognitive needs: No Hearing needs: No Vision needs: No Meds Allergies Allergy/AdvReac Type Severity Reaction Status Date / Time Penicillins [PENICILLINS] Allergy Unknown RASH Verified 06/27/23 14:33 Active Medications: Current Medications Amlodipine Besylate (Amlodipine Besylate 5 Mg Tablet) 5 mg PO DAILY SCOTTY; Protocol Apixaban (Apixaban 5 Mg Tablet) 5 mg PO BID [facility] Diltiazem HCl (Diltiazem Hcl Cd 180 Mg Cap.Er.24h) 180 mg PO DAILY [facility]; Protocol Glucose (Glucose Gel 15 Gm Gel..Gram.) 15 gm PO Q15M PRN; Protocol PRN Reason: per Hypoglycemia Standing Ord. Vancomycin HCl (Vancomycin/Ns) 2,000 mg in 500 mls @ 250 mls/hr IV ONCE ONE Stop: 06/27/23 18:42 Last Admin: 06/27/23 18:03 Dose: 250 mls/hr Doxycycline Hyclate 100 mg/ (Sodium Chloride) 250 mls @ 166.67 mls/hr IV ONCE ONE Stop: 06/27/23 18:42 Doxycycline Hyclate 100 mg/ (Sodium Chloride) 250 mls @ 166.67 mls/hr IV Q12H [facility] Dextrose (D10) 250 mls @ 750 mls/hr IV Q15M PRN; Protocol PRN Reason: per Hypoglycemia Standing Ord. Vancomycin HCl 1,000 mg/ (Sodium Chloride) 270 mls @ 270 mls/hr IV Q12H [facility] Insulin Glargine (Insulin Glargine,Hum.Rec.Anlog 100 Unit/Ml 10 Ml Vial) 50 unit SUBCUT BEDTIME [facility] Insulin Human Lispro (Insulin Lispro 100 Unit/Ml 3 Ml Vial) 0 unit SUBCUT QIDACHS [facility]; Protocol Metformin HCl (Metformin Hcl 1,000 Mg Tablet) 1,000 mg PO BIDWM [facility] Pharmacy Consult (Consult Rx Vancomycin Dosing) 1 each MISCELLANE DAILY PRN PRN Reason: Consult order Sodium Chloride (0.9 % Sodium Chloride Flush 3 Ml Syringe) 3 ml IVFLUSH QSHIFT [facility] Home Medications ?Medication ?Instructions ?Recorded ?Confirmed ?Last Taken ?Type buspirone 30 mg tablet 30 mg PO BID 06/12/23 06/12/23 Unknown History dulaglutide 3 mg/0.5 mL 3 mg subcut QWEEK 06/12/23 06/12/23 06/04/23 08:00 History subcutaneous pen injector insulin glargine-yfgn 100 unit/mL 50 unit subcut BEDTIME 06/13/23 06/13/23 Unknown History (3 mL) subcutaneous pen amlodipine 5 mg tablet 5 mg PO DAILY 06/27/23 Unknown History diclofenac sodium 1 % topical gel topical 06/27/23 Unknown History diltiazem HCl 180 mg 180 mg PO DAILY 06/27/23 Unknown History capsule,extended release 24 hr insulin glargine 100 unit/mL (3 30 unit subcut 06/27/23 Unknown History mL) subcutaneous pen (Lantus Solostar U-100 Insulin) metformin 1,000 mg tablet 1,000 mg PO BID 06/27/23 Unknown History metoprolol succinate 100 mg 100 mg PO DAILY 06/27/23 Unknown History tablet,extended release 24 hr Physical Exam 2 Vital Signs and Narrative: Vital Signs: Last Vital Signs Temp 99.4 F 06/27/23 14:24 Pulse 110 H 06/27/23 14:24 Resp 14 06/27/23 14:24 BP 129/52 L 06/27/23 14:24 Pulse Ox 94 06/27/23 14:24 O2 Del Method Room Air 06/27/23 14:24 BMI result Body Mass Index 45.6 Const: Other: Awake alert oriented x3 no acute distress Resp: Other: Clear to auscultation bilaterally no rales rhonchi or wheezes Cardio: Other: No S4; positive S1-S2; no S3 murmurs rubs or gallops GI: Other: Soft nontender nondistended normoactive bowel sounds Extrem: Other: Bilateral lower extremity edema with erythema from tibial plateau distally. Warm to touch Results Labs 06/27/23 15:40 06/27/23 15:40 Labs: Laboratory Results - last 24 hr 06/27/23 06/27/23 15:40 15:41 MCV 86.8 MCH 30.1 MCHC 34.6 RDW 12.5 Plt Count 228 D MPV 10.1 Immature Gran % (Auto) 0.3 Neut % (Auto) 86.0 H Lymph % (Auto) 7.4 L [place] % (Auto) 5.9 Eos % (Auto) 0.2 Baso % (Auto) 0.2 Lymph # (Auto) 0.9 L [place] # (Auto) 0.7 Eos # (Auto) 0.0 Baso # (Auto) 0.0 Abs Immat Gran (auto) 0.04 H Absolute Neuts (auto) 10.5 H Absolute Nucleated RBC 0.000 Nucleated RBC % (auto) 0.0 PT 12.7 INR 1.0 Anion Gap 10 L Estim Creat Clear Calc 105.3 Estimated GFR > 60 Random Glucose 424 H* Lactic Acid 1.2 Calcium 9.8 Magnesium 2.0 Total Bilirubin 0.5 AST 22 ALT 25 Alkaline Phosphatase 94 Total Creatine Kinase 213 H B-Natriuretic Peptide 68 Total Protein 7.3 Albumin 3.6 Lipase 16 Ethyl Alcohol < 10 Assessment and Plan (1) Bilateral cellulitis of lower leg: Status: Acute (2) Type 2 diabetes mellitus with hyperglycemia: Qualifiers: Diabetes mellitus [employer] insulin use: without [employer] use Q ualified Code(s): E11.65 - Type 2 diabetes mellitus with hyperglycemia Status: Acute (3) Paroxysmal atrial fibrillation: Status: Acute Plan 53-year-old male with history of chronic venous stasis disease presents with 4 days of worsening pain erythema now on warmth consistent with cellulitis. 1. Venous stasis cellulitis bilateral lower extremities -vancomycin/doxycycline (1) -encourage elevation -await cultures 2. Diabetes type 2 insulin-dependent -acceptable control on current therapies -lispro correctional scale -adjust as indicated 3. Paroxysmal atrial fibrillation -continue Eliquis 5 mg b.i.d. -continue current therapies as ordered -adjust as indicated Full code Eliquis Patient requires at least 2 midnights of inpatient stay going forward for IV antibiotics to treat lower extremity cellulitis. This can not be achieved a lesser acute setting Quality Stroke Does the patient have a stroke diagnosis?: No VTE Prior VTE?: No VTE Risk Level:: Medical - moderate - high VTE Device Contraindication: Treatment Not Indicated VTE Drug Contraindication: N/A - Med Ordered
[2023-06-27 18:55] LABS: Glucose, Whole Blood 312 mg/dL (60-115)
[2023-06-27 19:07] LABS: Amphetamine Screen Urine Not Detected (Not Detect); Barbiturates, Urine Not Detected (Not Detect); Benzodiazepines Screen Urine Not Detected (Not Detect); Buprenorphine Scr Not Detected (Not Detect); Cannabinoid Screen Urine POSITIVE (Not Detect); Cocaine Screen Urine Not Detected (Not Detect); Fentanyl, urine POSITIVE (Not Detect); Methadone Screen, Urine Not Detected (Not Detect); Opiate Screen Urine POSITIVE (Not Detect); Oxycodone Screen Urine Not Detected (Not Detect); Phencyclidine Screen Urine Not Detected (Not Detect)
--- NOTE | 2023-06-27 19:45 | PHA.MEDREC ---
Pharmacy Consult ? Medication Reconciliation Pharmacy has completed the medication reconciliation with patient, also spoke to patient's pharmacy to confirm last pecan picker dates. Pt confirmed he was switched from lantus solostar to the cheaper version and confirmed 50 units.
[2023-06-27 20:06] VITALS: BP 127/44; PULSE 107; RESP 18; TEMP 38.5; O2SAT 94
[2023-06-27] MEDS: Insulin Glargine,Hum.rec.anlog 100 UNIT/ML 10 ML VIAL 50 UNIT SUBCUT (20:28)
[2023-06-27] MEDS: Doxycycline Hyclate 100 MG in 0.9 % Sodium Chloride 250 ML 166.67 MG IV (20:28)
[2023-06-27] MEDS: Apixaban 5 MG TABLET PO (20:28)
[2023-06-27] MEDS: Acetaminophen 325 MG TABLET 650 MG PO (20:28)
[2023-06-27 20:40] LABS: Glucose, Whole Blood 428 mg/dL (60-115)
--- NOTE | 2023-06-27 21:00 | PC.NURSE ---
POC 428. [place] text sent to Dr. Qureshi. New orders to give Insulin Lispro 10u.
--- NOTE | 2023-06-27 21:50 | PC.NURSE ---
Called pharmacy regarding missing insulin Lispro in the pyxis.
--- NOTE | 2023-06-27 21:52 | MHC.EDTECH ---
belongings in [place]
[2023-06-27] MEDS: Insulin Lispro 100 UNIT/ML 3 ML VIAL SUBCUT (22:36)
[2023-06-27 22:38] VITALS: TEMP 37.3
--- NOTE | 2023-06-28 01:50 | PC.NURSE ---
Pt refusing to stay. Pt spoke with hospitalist and has signed out ama. Pt walked over to security to obtained belongings.
--- NOTE | 2023-06-28 07:20 | PM.EVENT ---
Event Note Date of Service: 06/30/23 Event Note: 1:10 AM patient decided to leave AMA and signed paperwork. Time Spent With Patient Time: Total time managing care of this patient today ____ minutes.
== END 2023-06-28 01:50 | disposition left against medical advice (07) | DRG 383 ==
LOC: HO.ED 17:57 → HO.EDOVER 06-28 03:56
PROVIDERS: Physician Assistant Medical; Emergency Provider Emergency Medicine; PCP Internal Medicine; Visit Provider Hospitalist
DX: L03.116 Cellulitis of left lower limb (principal); L03.115 Cellulitis of right lower limb; E11.9 Type 2 diabetes mellitus without complications; E66.01 Morbid (severe) obesity due to excess calories; I48.0 Paroxysmal atrial fibrillation; F43.10 Post-traumatic stress disorder, unspecified; R06.02 Shortness of breath; Z68.42 Body mass index [BMI] 45.0-49.9, adult; Z79.01 Long term (current) use of anticoagulants; Z79.85 Long-term (current) use of injectable non-insulin antidiabetic drugs; Z79.899 Other long term (current) drug therapy; Z79.4 Long term (current) use of insulin
CPT/HCPCS: 36415; 80053; 80307; 82550; 82947; 83605; 83690; 83735; 83880; 85025; 85610; 87040; 99284; J3370

== ENCOUNTER → 2023-06-27 17:20 | Outpatient (BNV) | payer OTHER, SELFPAY | PROVIDERS: Admitting Provider Hospitalist; Emergency Provider Emergency Medicine; PCP Internal Medicine; Visit Provider Hospitalist | DX: L03.116 Cellulitis of left lower limb (principal); L03.115 Cellulitis of right lower limb; E11.65 Type 2 diabetes mellitus with hyperglycemia; I48.0 Paroxysmal atrial fibrillation | CPT/HCPCS: 99223; 99499 ==

== ENCOUNTER 2023-06-28 16:15 | Inpatient (IN) | payer OTHER, SELFPAY ==
[2023-06-28 17:13] VITALS: BP 150/79; PULSE 108; RESP 18; TEMP 37.4; O2SAT 98; BMI 39.3
--- NOTE | 2023-06-28 17:13 | ED_ITS ---
HPI - General Adult General Chief complaint: Skin/Abscess/Foreign Body Stated complaint: bilateral leg swelling pain seen 06/26 Time Seen by Provider: 06/28/23 22:36 Source: patient Mode of arrival: ambulatory Limitations: no limitations History of Present Illness HPI narrative: patient comes to the emergency room complaining of worsening bilateral lower extremity erythema and pain. Patient was admitted yesterday and this morning he left against medical advice. Patient is back, requesting to be admitted and willing to stay for the whole treatment. Related Data Home Medications ?Medication ?Instructions ?Recorded ?Confirmed buspirone 30 mg tablet 30 mg PO BID 06/12/23 06/27/23 dulaglutide 3 mg/0.5 mL 3 mg subcut QWEEK 06/12/23 06/27/23 subcutaneous pen injector insulin glargine-yfgn 100 unit/mL 50 unit subcut BEDTIME 06/13/23 06/27/23 (3 mL) subcutaneous pen amlodipine 5 mg tablet 5 mg PO DAILY 06/27/23 06/27/23 diclofenac sodium 1 % topical gel 4 g topical QID PRN knee pain 06/27/23 06/27/23 diltiazem HCl 180 mg 180 mg PO DAILY 06/27/23 06/27/23 capsule,extended release 24 hr metoprolol succinate 100 mg 100 mg PO DAILY 06/27/23 06/27/23 tablet,extended release 24 hr Previous Rx's ?Medication ?Instructions ?Recorded escitalopram oxalate 20 mg tablet 20 mg PO DAILY #30 tabs 12/05/21 lidocaine 5 % topical patch 2 patch topical DAILY PRN pain #60 01/29/23 ea apixaban 5 mg tablet (Eliquis) 5 mg PO BID 30 days #60 tabs 03/19/23 lisinopril 30 mg tablet 30 mg PO DAILY #90 tabs 03/19/23 albuterol sulfate 90 mcg/actuation 2 puff PO Q8H PRN for wheezing #18 05/04/23 aerosol inhaler (Ventolin HFA) ea zolpidem 10 mg tablet 10 mg PO BEDTIME PRN insomnia 30 06/04/23 days #30 tabs tramadol 50 mg tablet 50 mg PO TID PRN pain 30 days #90 06/22/23 tabs metformin 1,000 mg tablet 1,000 mg PO BID #180 tabs 06/28/23 Allergies Allergy/AdvReac Type Severity Reaction Status Date / Time Penicillins [PENICILLINS] Allergy Unknown RASH Verified 06/28/23 17:14 Review of Systems Review of Systems: Constitutional : No Weight loss, No Fever, No Chills, No Night Sweats, No Fatigue, No Malaise ENT/Mouth : No Hearing loss, No Ear Pain, No Nasal Congestion, No Sinus Pain, No Hoarseness, No sore throat, No Rhinorrhea, No Swallowing Difficulty Eyes: No Eye Pain, No Swelling, No Redness, No Foreign Body, No Discharge, No Vision Changes Cardiovascular : No Chest Pain, No SOB, No Dyspnea on Exertion, No Orthopnea, No Edema, No Palpitations Respiratory : No Cough, No Sputum, No Wheezing, No Smoke Exposure, No Dyspnea Gastrointestinal : No Nausea, No Vomiting, No Diarrhea, No Constipation, No abdominal Pain, No Hematochezia, No Melena Genitourinary : no irregular bleeding, No Dysuria, No Urinary Frequency, No Hematuria, No Urinary Incontinence, No Urgency, No Flank Pain, No Urinary Flow Changes, No Hesitancy Musculoskeletal : No joint pain, No Myalgias, No Joint Swelling Skin : Bilateral lower extremity erythema and swelling Neuro : No Weakness, No Numbness, No Paresthesias, No Loss of Consciousness, No Dizziness, No Headache Psych : No Anxiety/Panic, No Depression, No SI/HI/AH/VH, No Social Issues, Heme/Lymph: No Bruising, No Bleeding,No Lymphadenopathy Endocrine : No Polyuria, No Polydipsia, No Temperature Intolerance PMFSH Past Medical History Medical History Cocaine abuse Erectile dysfunction Polysubstance abuse Paroxysmal atrial fibrillation with rapid ventricular response Lumbar degenerative disc disease Substance abuse Diabetes Depression Overactive bladder Arthritis BPH (benign prostatic hyperplasia) Asthma Seizure Morbid obesity with BMI of 40.0-44.9, adult Benign essential hypertension Insomnia Primary osteoarthritis of both knees Anxiety Family history of thyroid disorder Type 2 diabetes mellitus with hyperglycemia Surgical History No history of previous surgery Family History Family History Father ETOH abuse Mother Diabetes Arthritis of knee Hypertension Other Mental health problem Substance abuse Social History Social History Household Members: None Household Members Other:: 2 Housing: Apartment Housing Other:: rents a room Do you presently have visiting nurse or other home services: No Alcohol intake: current Alcohol intake frequency: does not drink Comment: refused bed alarm Patient Tobacco Use Status: Never used Tobacco Smoked in Last 30 Days: No e-Cigarette/Vaping Use: Never Used Second Hand Smoke Exposure: No Use of substances other than those prescribed or required for medical reasons: Yes Substance Use Type: Heroin Substance Use Frequency: Occasionally Last Used Substance: Days (ago) Any prior treatment program specific to substance use: No Advance Directives: Yes Advance Directives on File: Yes Advance Directives Date on File: 02/23/22 service: No Current occupational status: unemployed and disabled Sexual orientation: Straight/Heterosexual Cognitive needs: No Hearing needs: No Vision needs: No Physical Exam ED Vital Signs: Vital Signs - 24 hr 06/28/23 17:13 06/28/23 21:26 Temperature 99.4 F 98.3 F Pulse Rate 108 H 99 Respiratory Rate 18 16 Blood Pressure 150/79 H 141/65 H Pulse Oximetry 98 97 Oxygen Delivery Method Room Air Room Air BMI result Body Mass Index 39.3 Const Other: Appearance: Alert. Oriented X3. No acute distress. Eyes: Pupils equal, round and reactive to light. ENT: Pharynx normal. Neck: Normal inspection. Neck supple. No lymph nodes noted. No crepitus CVS: Normal heart rate and rhythm. Pulses normal. Normal S1 and S2 Respiratory: No respiratory distress. Breath sounds normal. No Wheezing. No rales Abdomen: Soft and nontender. No rigidity. No distention. Skin: Skin warm and dry. Normal skin color. Normal skin turgor. Extremities: +1 nonpitting edema bilaterally , bilateral lower extremity erythema on top of chronic venous stasis, pain to palpation, warm extremities. Neuro: Oriented X 3. No motor deficit. No sensory deficit. Moving all extremities. No slurred speech. CN 2 through 12 grossly intact Psych: calm, cooperative, normal affect Course Course Course Narrative: This is an RME: Additional HPI, ROS, PE not included below will be deferred to primary provider. 53 yo m presents with b/l leg rash. Was seen yesterday and left AMA. Difficulty walking due to pain. States he left because he had to sleep. Recent drug use yesterday. Medical Decision Making Medical Decision Making [facility] Narrative: - all of patient's labs pending. Patient willing to be readmitted - I discussed the patient with Dr. Qureshi from the Medicine team, patient being readmitted Differential Diagnosis Differential Diagnoses: The differential diagnosis associated with the presentation includes ( cellulitis) Lab Data [facility] Lab Attestation statement: I reviewed the patient's lab results. Labs: Lab Results 06/28/23 Range/Units 21:48 POC Glucose 404 H* (60-115) mg/dL Critical Care Time Critical Care Time Critical Care Time: Yes Total Critical Care Time: 35 Attestation: I have personally provided critical care time. Time includes review of lab data, radiology results, discussion with consultants, and monitoring for potential decompensation. Intervention performed as documented. Discharge Plan Discharge Clinical Impression: Bilateral lower leg cellulitis Patient Disposition: Admitted As Inpatient Prescriptions: No Action escitalopram oxalate 20 mg tablet 20 mg PO DAILY Qty: 30 1RF lidocaine 5 % adhesive patch,medicated 2 patch topical DAILY PRN (Reason: pain) Qty: 60 5RF Rx Instructions: leave on most painful area for up to 12 hrs. keep off for 12 hrs albuterol sulfate [Ventolin HFA] 90 mcg/actuation HFA aerosol inhaler 2 puff PO Q8H PRN (Reason: for wheezing) Qty: 18 3RF zolpidem 10 mg tablet 10 mg PO BEDTIME PRN (Reason: insomnia) 30 Days Qty: 30 1RF tramadol 50 mg tablet 50 mg PO TID PRN (Reason: pain) 30 Days Qty: 90 0RF metformin 1,000 mg tablet 1,000 mg PO BID Qty: 180 3RF buspirone 30 mg tablet 30 mg PO BID dulaglutide 3 mg/0.5 mL pen injector 3 mg subcut QWEEK Rx Instructions: QMONDAY insulin glargine-yfgn 100 unit/mL (3 mL) insulin pen 50 unit subcut BEDTIME diltiazem HCl 180 mg capsule,extended release 24hr 180 mg PO DAILY metoprolol succinate 100 mg tablet extended release 24 hr 100 mg PO DAILY amlodipine 5 mg tablet 5 mg PO DAILY diclofenac sodium 1 % gel 4 g TOPICAL QID PRN (Reason: knee pain) Eliquis 5 mg tablet 5 mg PO BID 30 Days Qty: 60 2RF Rx Instructions: x30 dats lisinopril 30 mg tablet 30 mg PO DAILY Qty: 90 1RF Print Language: Slovak
[2023-06-28 21:26] VITALS: BP 141/65; PULSE 99; RESP 16; TEMP 36.8; O2SAT 97
[2023-06-28 21:52] LABS: Glucose, Whole Blood 404 mg/dL (60-115)
[2023-06-28 22:49] VITALS: BP 166/88; PULSE 102; RESP 16; TEMP 37.2; O2SAT 96
[2023-06-28 23:08] LABS: MANUAL DIFF FLAG NO
[2023-06-28 23:09] LABS: Basophils Percent Auto 0.1 % (0-2); Eosinophils Absolute Auto 0.1 X10*3/uL (0.0-0.4); Eosinophils Percent Auto 0.9 % (0-4); Hematocrit 35.8 % (42.0-52.0); Hemoglobin 11.6 g/dl (14.0-18.0); Imm Gran Abs Auto 0.03 X10*3/uL (0.00-0.03); Imm Gran Pct Auto 0.4 % (0.0-0.4); Lymphocytes Absolute Auto 1.6 X10*3/uL (1.2-4.9); Mean Corpuscular HGB Conc 32.4 g/dl (31.0-36.0); Mean Corpuscular Hemoglobin 29.4 pg (27.0-33.0); Mean Corpuscular Volume 90.9 fL (80.0-98.0); Mean Platelet Volume 10.1 fL (9.4-12.4); Monocytes Absolute Auto 0.8 X10*3/uL (0.1-1.2); Monocytes Percent Auto 10.2 % (2-11); Neutrophils Percent Auto 67.4 % (45-73); Platelet Count 258 X10*3/uL (160-400); Red Blood Count 3.94 X10*6/uL (4.60-5.80); Red Cell Distribution Width 12.8 % (11.0-16.0); White Blood Count 7.4 X10*3/uL (4.8-10.8)
[2023-06-28 23:17] LABS: Lactic Acid 1.1 mmol/L (0.5-2.0)
[2023-06-28] MEDS: Piperacillin Sodium/Tazobactam 3.375 GM in 0.9 % Sodium Chloride 50 ML IV (23:18)
--- NOTE | 2023-06-28 23:22 | P.HPHOSP_ITS ---
History of Present Illness Date of Service: 06/28/23 Attending physician on admission: Lamar Brownlee Chief Complaint: Legs swelling Herman Garduno is a very pleasant 53 years old man with past medical history significant for lower extremities venous stasis, type 2 diabetes mellitus on insulin, paroxysmal atrial fibrillation on Eliquis, depression/bipolar disorder, insomnia and essential hypertension presents to the emergency department complaining of several day history worsening edema to the lower extremity associated with redness. She did report fever but denies chills. Did not report headache, palpitations or dizziness. He also denied any acute cardiopulmonary, gastrointestinal or genitourinary symptoms. He admits occasional use of cocaine and marijuana. Denied alcohol abuse or tobacco smoking. He was hospitalized yesterday with diagnosis of lower extremity cellulitis but decided to leave AMA as he was waiting for a long time in the emergency department. He also wanted to sleep in his own bed. He was treated with vancomycin and doxycycline in the emergency department. In the ED, he was found to have stable vital signs. Last blood pressure 166/86 and there is mild tachycardia. Yesterday he has a spike of fever, 101.3. O2 sats are normal on RA. We will workup today showed resolution leukocytosis. There is no lactic acidosis. LFTs are normal. There is anemia of 11.6. Platelets are normal. There is marked hyperglycemia, last blood glucose is 390. Creatinine is 1.02 BUN 19. CO2 is elevated. Urine drug screen yesterday showed positive for opiates, fentanyl and marijuana. ED tx: Zosyn 3.375 g IV, vancomycin 2 g IV Review of Systems 2 Review of Systems: All 12 systems were reviewed and normal except as noted in HPI. [facility] Medical History Cocaine abuse Erectile dysfunction Polysubstance abuse Paroxysmal atrial fibrillation with rapid ventricular response Lumbar degenerative disc disease Substance abuse Diabetes Depression Overactive bladder Arthritis BPH (benign prostatic hyperplasia) Asthma Seizure Morbid obesity with BMI of 40.0-44.9, adult Benign essential hypertension Insomnia Primary osteoarthritis of both knees Anxiety Family history of thyroid disorder Type 2 diabetes mellitus with hyperglycemia Family History Father ETOH abuse Mother Diabetes Arthritis of knee Hypertension Other Mental health problem Substance abuse Surgical History No history of previous surgery Social History Household Members: None Household Members Other:: 2 Housing: Apartment Housing Other:: rents a room Do you presently have visiting nurse or other home services: No Alcohol intake: current Alcohol intake frequency: does not drink Comment: refused bed alarm Patient Tobacco Use Status: Never used Tobacco Smoked in Last 30 Days: No e-Cigarette/Vaping Use: Never Used Second Hand Smoke Exposure: No Use of substances other than those prescribed or required for medical reasons: Yes Substance Use Type: Heroin Substance Use Frequency: Occasionally Last Used Substance: Days (ago) Any prior treatment program specific to substance use: No Advance Directives: Yes Advance Directives on File: Yes Advance Directives Date on File: 02/23/22 Nutrition Risks: No Nutritional Risk service: No Current occupational status: unemployed and disabled Sexual orientation: Straight/Heterosexual Cognitive needs: No Hearing needs: No Vision needs: No Meds Allergies Allergy/AdvReac Type Severity Reaction Status Date / Time Penicillins [PENICILLINS] Allergy Unknown RASH Verified 06/28/23 17:14 Active Medications: Current Medications Acetaminophen (Acetaminophen 325 Mg Tablet) 975 mg PO Q6H PRN PRN Reason: mild pain and fever Albuterol Sulfate (Albuterol Sulfate 90 Mcg 8 Gm Inhaler) 2 puff INHALE Q4H PRN PRN Reason: wheezing and/or shortness of breath Apixaban (Apixaban 5 Mg Tablet) 5 mg PO BID [facility] Buspirone HCl (Buspirone Hcl 10 Mg Tablet) 30 mg PO BID [facility] Diltiazem HCl (Diltiazem Hcl Cd 180 Mg Cap.Er.24h) 180 mg PO DAILY [facility]; Protocol Escitalopram Oxalate (Escitalopram Oxalate 20 Mg Tablet) 20 mg PO DAILY [facility] Glucose (Glucose Gel 15 Gm Gel..Gram.) 15 gm PO Q15M PRN; Protocol PRN Reason: per Hypoglycemia Standing Ord. Vancomycin HCl (Vancomycin/Ns) 2,000 mg in 500 mls @ 250 mls/hr IV ONCE ONE Stop: 06/29/23 00:37 Dextrose (D10) 250 mls @ 750 mls/hr IV Q15M PRN; Protocol PRN Reason: per Hypoglycemia Standing Ord. Ceftriaxone Sodium 1 gm/ (Sodium Chloride) 50 mls @ 100 mls/hr IV Q24H [facility] Insulin Glargine (Insulin Glargine,Hum.Rec.Anlog 100 Unit/Ml 10 Ml Vial) 50 unit SUBCUT BEDTIME [facility] Insulin Human Lispro (Insulin Lispro 100 Unit/Ml 3 Ml Vial) 0 unit SUBCUT QIDACHS [facility]; Protocol Metformin HCl (Metformin Hcl 1,000 Mg Tablet) 1,000 mg PO BIDWM [facility] Metoprolol Succinate (Metoprolol Succinate Er 100 Mg Tab.Er.24h) 100 mg PO DAILY [facility]; Protocol Oxycodone HCl (Oxycodone Hcl Immed Release 5 Mg Tablet) 5 mg PO Q6H PRN PRN Reason: Pain, Severe (Pain Scale 7-10) Pharmacy Consult (Consult Rx Vancomycin Dosing) 1 each MISCELLANE DAILY PRN PRN Reason: Consult order Sodium Chloride (0.9 % Sodium Chloride Flush 3 Ml Syringe) [facility] Medications ?Medication ?Instructions ?Recorded ?Confirmed ?Last Taken ?Type buspirone 30 mg tablet 30 mg PO BID 06/12/23 06/28/23 Unknown History dulaglutide 3 mg/0.5 mL 3 mg subcut QWEEK 06/12/23 06/27/23 06/04/23 08:00 History subcutaneous pen injector insulin glargine-yfgn 100 unit/mL 50 unit subcut BEDTIME 06/13/23 06/27/23 Unknown History (3 mL) subcutaneous pen amlodipine 5 mg tablet 5 mg PO DAILY 06/27/23 06/27/23 Unknown History diclofenac sodium 1 % topical gel 4 g topical QID PRN knee pain 06/27/23 06/27/23 Unknown History diltiazem HCl 180 mg 180 mg PO DAILY 06/27/23 06/28/23 Unknown History capsule,extended release 24 hr metoprolol succinate 100 mg 100 mg PO DAILY 06/27/23 06/27/23 Unknown History tablet,extended release 24 hr albuterol sulfate 90 mcg/actuation 2 puff inhalation Q4-6H PRN 06/28/23 06/28/23 Unknown History aerosol inhaler (Ventolin HFA) wheezing and/or shortness of breath dulaglutide 3 mg/0.5 mL 3 mg subcut QWEEK 06/28/23 06/28/23 Unknown History subcutaneous pen injector (Trulicity) escitalopram oxalate 20 mg tablet 20 mg PO DAILY 06/28/23 06/28/23 Unknown History insulin glargine 100 unit/mL (3 30 unit subcut 06/28/23 Unknown History mL) subcutaneous pen (Lantus Solostar U-100 Insulin) metformin 1,000 mg tablet 1,000 mg PO BID 06/28/23 06/28/23 Unknown History metoprolol succinate 100 mg 100 mg PO DAILY 06/28/23 06/28/23 Unknown History tablet,extended release 24 hr zolpidem 10 mg tablet 10 mg PO insomnia 06/28/23 Unknown History Physical Exam 2 Vital Signs and Narrative: Vital Signs: Last Vital Signs Temp 98.9 F 06/28/23 22:49 Pulse 102 H 06/28/23 22:49 Resp 16 06/28/23 22:49 BP 166/88 H 06/28/23 22:49 Pulse Ox 96 06/28/23 22:49 O2 Del Method Room Air 06/28/23 22:49 BMI result Body Mass Index 39.3 Constitutional - Awake and Alert, No apparent distress. Cooperative. Obese. Afebrile. HEENT - Pupils equally round. Normal sclerae. Heart - S1S2, RRR. Lungs - Normal lung expansion, Normal respiratory effort, No respiratory distress, CTA bilaterally Gastrointestinal - NT / ND; +BS; No rebound or guarding Extremities - bilateral lower extremity edema, marked redness or hyperpigmentation. No discharges. Musculoskeletal - Normal inspection, normal ROM Skin - Warm/Dry. No pallor. No jaundice. Neurological - Alert & oriented x3. No focal weakness. Normal speech. Psychological - Appropriate affect Results Labs 06/28/23 23:02 06/28/23 23:02 Labs: Laboratory Results - last 24 hr 06/28/23 06/28/23 21:48 23:02 MCV 90.9 MCH 29.4 MCHC 32.4 RDW 12.8 Plt Count 258 MPV 10.1 Immature Gran % (Auto) 0.4 Neut % (Auto) 67.4 Lymph % (Auto) 21.0 [place] % (Auto) 10.2 Eos % (Auto) 0.9 Baso % (Auto) 0.1 Lymph # (Auto) 1.6 [place] # (Auto) 0.8 Eos # (Auto) 0.1 Baso # (Auto) 0.0 Abs Immat Gran (auto) 0.03 Absolute Neuts (auto) 5.0 Absolute Nucleated RBC 0.000 Nucleated RBC % (auto) 0.0 POC Glucose 404 H* Lactic Acid 1.1 Assessment and Plan (1) Bilateral lower leg cellulitis: Status: Acute (2) Morbid obesity: Status: Acute (3) Substance abuse: Status: Acute (4) Type 2 diabetes mellitus with hyperglycemia: Qualifiers: Diabetes mellitus terminal superintendent insulin use: without mcfp use Q ualified Code(s): E11.65 - Type 2 diabetes mellitus with hyperglycemia Status: Acute (5) Essential hypertension: Status: Acute Plan Herman Garduno is a 53 years old man admitted with * Bilateral lower extremity cellulitis in the setting of underlying venous stasis. SIRS criteria, but no severe sepsis. Recent LE venous US (June 23) - No DVT. Admit to hospitalist service. Continue empiric IV antibiotic therapy with Zosyn (pt is allergic to penicillin however, tolerating it well) and vancomycin. Blood cultures obtained -will follow results. * Type 2 diabetes mellitus, uncontrolled. IV fluids. Lantus and insulin sliding scale. Continue to monitor glucose before meals at bedtime. * Paroxysmal atrial fibrillation, rate-controlled. Continue metoprolol, diltiazem and Eliquis. * Depression/bipolar disorder. Continue buspirone and escitalopram. * Essential hypertension. Continue metoprolol and diltiazem. * Chronic anemia. Continue to monitor. * Obesity. BMI 39.3 kg/m2. Weight loss. * History of polysubstance abuse. Urine drug screen: Fentanyl, marijuana, opiates. He admitted recent use of cocaine. DVT prophylaxis: Eliquis Code status: Full Patient will need hospitalization for at least 2 midnights for bilateral lower extremity cellulitis (immunocompromised patient -type 2 DM) with IV antibiotic therapy. Quality Stroke Does the patient have a stroke diagnosis?: No VTE Prior VTE?: No VTE Risk Level:: Medical - moderate - high VTE Device Contraindication: Treatment Not Indicated VTE Drug Contraindication: N/A - Med Ordered
[2023-06-28 23:28] LABS: Alanine Aminotransferase 30 U/L (0-40); Albumin Level 3.4 g/dL (3.5-5.0); Alkaline Phosphatase 86 U/L (39-117); Anion Gap 14 (12-20); Aspartate Amino Transferase 30 U/L (5-37); Bilirubin Direct 0.1 mg/dL (0.0-0.5); Bilirubin Total 0.3 mg/dL (0.0-1.0); Blood Urea Nitrogen 19 mg/dL (9-16); Calcium 9.4 mg/dL (8.4-10.2); Carbon Dioxide 30 mmol/L (22-29); Chloride 98 mmol/L (96-108); Creatinine Clr Calc Pharmacy 116.6; Estimated Glomerular Filt Rate > 60; Glucose Random 390 mg/dL (60-115); Potassium 4.6 mmol/L (3.3-5.1); Sodium 137 mmol/L (135-145); Total Protein 7.1 g/dL (6.5-8.0)
[2023-06-28] MEDS: vancomycin/NS 2,000 MG/500 ML PLAST..BAG 250 MG IV (23:55)
[2023-06-28] MEDS: Apixaban 5 MG TABLET PO (23:56)
[2023-06-28] MEDS: busPIRone HCl 10 MG TABLET 30 MG PO (23:56)
[2023-06-28] MEDS: Insulin Lispro 100 UNIT/ML 3 ML VIAL SUBCUT (23:57)
[2023-06-28] MEDS: Insulin Glargine,Hum.rec.anlog 100 UNIT/ML 10 ML VIAL 50 UNIT SUBCUT (23:57)
[2023-06-28] MEDS: 0.9 % Sodium Chloride Flush 3 ML SYRINGE IVFLUSH (23:58)
[2023-06-29] VITALS (7 sets, daily range): BP systolic 143–173; BP diastolic 71–86; PULSE 81–98; RESP 16–20; TEMP 36.4–37.1; O2SAT 97–100; BMI 39.2
[2023-06-29] MEDS: 0.9 % Sodium Chloride 1,000 ML 999 ML IV (01:08)
[2023-06-29 02:00] LABS: Glucose, Whole Blood 257 mg/dL (60-115)
--- NOTE | 2023-06-29 03:45 | PC.NURSE ---
Pt aox4 reporting lower extremity pain. Pt repositioned to elevate lower extremities.
[2023-06-29 05:27] LABS: MANUAL DIFF FLAG NO
[2023-06-29 05:30] LABS: Basophils Percent Auto 0.1 % (0-2); Eosinophils Absolute Auto 0.2 X10*3/uL (0.0-0.4); Eosinophils Percent Auto 2.1 % (0-4); Hematocrit 32.8 % (42.0-52.0); Hemoglobin 10.7 g/dl (14.0-18.0); Imm Gran Abs Auto 0.03 X10*3/uL (0.00-0.03); Imm Gran Pct Auto 0.4 % (0.0-0.4); Lymphocytes Absolute Auto 1.7 X10*3/uL (1.2-4.9); Lymphocytes Percent Auto 24.3 % (20-40); Mean Corpuscular HGB Conc 32.6 g/dl (31.0-36.0); Mean Corpuscular Hemoglobin 29.6 pg (27.0-33.0); Mean Corpuscular Volume 90.9 fL (80.0-98.0); Mean Platelet Volume 9.8 fL (9.4-12.4); Monocytes Absolute Auto 0.8 X10*3/uL (0.1-1.2); Monocytes Percent Auto 11.5 % (2-11); Neutrophils Absolute Auto 4.4 x10*3/uL (2.0-8.3); Neutrophils Percent Auto 61.6 % (45-73); Platelet Count 230 X10*3/uL (160-400); Red Blood Count 3.61 X10*6/uL (4.60-5.80); Red Cell Distribution Width 12.7 % (11.0-16.0); White Blood Count 7.2 X10*3/uL (4.8-10.8)
[2023-06-29 05:42] LABS: Anion Gap 9 (12-20); Blood Urea Nitrogen 17 mg/dL (9-16); Calcium 8.9 mg/dL (8.4-10.2); Carbon Dioxide 29 mmol/L (22-29); Chloride 105 mmol/L (96-108); Creatinine Clr Calc Pharmacy 141.6; Estimated Glomerular Filt Rate > 60; Glucose Random 243 mg/dL (60-115); Potassium 3.8 mmol/L (3.3-5.1); Sodium 139 mmol/L (135-145)
[2023-06-29] MEDS: Insulin Lispro 100 UNIT/ML 3 ML VIAL SUBCUT ×4 (07:19→22:25)
[2023-06-29 07:20] LABS: Glucose, Whole Blood 212 mg/dL (60-115)
--- NOTE | 2023-06-29 07:37 | PHA.PROG ---
Admission Date/Time: June 28, 2023 22:43 Indication: Skin Weight in k.732 kg Adjusted body weight in K.273 Obesity Dosing Indication % IBW: OBESE Serum Creatinine - Last 168 Hours 06/28/23 06/29/23 23:02 05:11 Creatinine 1.02 0.84 Estimated CrCl and GFR - Last 168 Hours 06/28/23 06/29/23 23:02 05:11 Estim Creat Clear Calc 116.6 141.6 Estimated GFR > 60 > 60 Vancomycin Loading Dose: [id number] Current Vancomycin Dosing Regimen: 1250 Q12H Vancomycin Monitoring using AUC goal of 400 - 600 range with trough as surrogate marker: 458 Date and Time for next Vancomycin Level to be drawn: 06/29 @1000 Pharmacist Comments on Vancomycin Plan: Vancomycin dosing will take advantage of [employer] as a clinical decision support tool that uses Bayesian modeling to calculate individual patient's pharmacokinetic parameters and forecast the patient's drug concentration time course with the target goal AUC 24 range of 400 - 600 mg/L/hr.
[2023-06-29] MEDS: Apixaban 5 MG TABLET PO ×2 (08:31→22:25)
[2023-06-29] MEDS: Metoprolol Succinate ER 100 MG TAB.ER.24H PO (08:31)
[2023-06-29] MEDS: dilTIAZem HCL CD 180 MG CAP.ER.24H PO (08:31)
[2023-06-29] MEDS: Escitalopram Oxalate 20 MG TABLET PO (08:31)
[2023-06-29] MEDS: metFORMIN HCl 1,000 MG TABLET 1000 MG PO ×2 (08:31→16:55)
[2023-06-29] MEDS: Piperacillin Sodium/Tazobactam 3.375 GM in 0.9 % Sodium Chloride 50 ML IV ×3 (08:32→22:27)
--- NOTE | 2023-06-29 09:30 | PC.NURSE ---
patient is awake and alert x4, patient was moved into ED 16 from [facility] to get some rest and cofmort. patient medicated per MAR refused his buspirone. patient has iv access, skin dry and intact, bilat lower leg cellulitis patient lower legs are red, warm and swollen.
[2023-06-29] MEDS: vancomycin HCL 1,250 MG in 0.9 % Sodium Chloride 250 ML 166.67 MG IV (11:47)
[2023-06-29 13:24] LABS: Glucose, Whole Blood 238 mg/dL (60-115)
--- NOTE | 2023-06-29 14:12 | MHC.CM.PN ---
pt lives wirhth son and s/o has own ride home is independent dc plan home no serves
--- NOTE | 2023-06-29 14:48 | P.PNIM_ITS ---
Subjective Subjective Date of Service: 06/29/23 Interval History: No acute issues overnight. Remains tolerant of therapies Review of Systems Denies chest pain Denies shortness of breath Denies nausea vomiting diarrhea Denies fever chills Physical Exam 2 Vital Signs: Vital Signs: Last Vital Signs Temp 98.6 F 06/29/23 11:20 Pulse 82 06/29/23 11:20 Resp 17 06/29/23 11:20 BP 151/77 H 06/29/23 11:20 Pulse Ox 98 06/29/23 11:20 O2 Del Method Room Air 06/29/23 11:20 BMI result Body Mass Index 39.3 Const: Other: Awake alert no acute distress Resp: Other: Clear to auscultation bilaterally. No rales rhonchi or wheezes Cardio: Other: No S4; positive S1-S2; no S3 murmurs rubs or gallops GI: Other: Soft nontender nondistended normoactive bowel sounds Extrem: Other: No edema bilaterally Objective Data Active Medications Acetaminophen (Acetaminophen 325 Mg Tablet) 975 mg PO Q6H PRN PRN Reason: mild pain and fever Albuterol Sulfate (Albuterol Sulfate 90 Mcg 8 Gm Inhaler) 2 puff INHALE Q4H PRN PRN Reason: wheezing and/or shortness of breath Apixaban (Apixaban 5 Mg Tablet) 5 mg PO BID [facility] Last Admin: 06/29/23 08:31 Dose: 5 mg Documented By: SAM Buspirone HCl (Buspirone Hcl 10 Mg Tablet) 30 mg PO BID [facility] Last Admin: 06/29/23 08:47 Dose: Not Given Documented By: SAM Non-Admin Reason: Patient Refused Diltiazem HCl (Diltiazem Hcl Cd 180 Mg Cap.Er.24h) 180 mg PO DAILY [facility]; Protocol Last Admin: 06/29/23 08:31 Dose: 180 mg Documented By: SAM Escitalopram Oxalate (Escitalopram Oxalate 20 Mg Tablet) 20 mg PO DAILY [facility] Last Admin: 06/29/23 08:31 Dose: 20 mg Documented By: SAM Glucose (Glucose Gel 15 Gm Gel..Gram.) 15 gm PO Q15M PRN; Protocol PRN Reason: per Hypoglycemia Standing Ord. Dextrose (D10) 250 mls @ 750 mls/hr IV Q15M PRN; Protocol PRN Reason: per Hypoglycemia Standing Ord. Piperacillin Sod/Tazobactam (Sod 3.375 gm/ Sodium Chloride) 50 mls @ 100 mls/hr IV Q6H [facility] Last Infusion: 06/29/23 09:15 Dose: Infused Documented By: SAM Vancomycin HCl 1,250 mg/ (Sodium Chloride) 250 mls @ 166.667 mls/hr IV Q12H [facility] Last Infusion: 06/29/23 13:42 Dose: Infused Documented By: SAM Insulin Glargine (Insulin Glargine,Hum.Rec.Anlog 100 Unit/Ml 10 Ml Vial) 50 unit SUBCUT BEDTIME [facility] Last Admin: 06/28/23 23:57 Dose: 50 unit Documented By: DREAD Insulin Human Lispro (Insulin Lispro 100 Unit/Ml 3 Ml Vial) 0 unit SUBCUT QIDACHS [facility]; Protocol Last Admin: 06/29/23 13:32 Dose: 6 unit Documented By: SAM Metformin HCl (Metformin Hcl 1,000 Mg Tablet) 1,000 mg PO BIDWM [facility] Last Admin: 06/29/23 08:31 Dose: 1,000 mg Documented By: SAM Metoprolol Succinate (Metoprolol Succinate Er 100 Mg Tab.Er.24h) 100 mg PO DAILY [facility]; Protocol Last Admin: 06/29/23 08:31 Dose: 100 mg Documented By: SAM Oxycodone HCl (Oxycodone Hcl Immed Release 5 Mg Tablet) 5 mg PO Q6H PRN PRN Reason: Pain, Severe (Pain Scale 7-10) Pharmacy Consult (Consult Rx Vancomycin Dosing) 1 each MISCELLANE DAILY PRN PRN Reason: Consult order Sodium Chloride (0.9 % Sodium Chloride Flush 3 Ml Syringe) 3 ml IVFLUSH QSHIFT [facility] Last Admin: 06/29/23 08:47 Dose: Not Given Documented By: SAM Non-Admin Reason: IV Running Labs 06/29/23 05:11 06/29/23 05:11 Labs: Laboratory Results - last 24 hr 06/28/23 06/28/23 06/29/23 21:48 23:02 01:55 MCV 90.9 MCH 29.4 MCHC 32.4 RDW 12.8 Plt Count 258 MPV 10.1 Immature Gran % (Auto) 0.4 Neut % (Auto) 67.4 Lymph % (Auto) 21.0 [place] % (Auto) 10.2 Eos % (Auto) 0.9 Baso % (Auto) 0.1 Lymph # (Auto) 1.6 [place] # (Auto) 0.8 Eos # (Auto) 0.1 Baso # (Auto) 0.0 Abs Immat Gran (auto) 0.03 Absolute Neuts (auto) 5.0 Absolute Nucleated RBC 0.000 Nucleated RBC % (auto) 0.0 Anion Gap 14 Estim Creat Clear Calc 116.6 Estimated GFR > 60 POC Glucose 404 H* 257 H Random Glucose 390 H* Lactic Acid 1.1 Calcium 9.4 Total Bilirubin 0.3 Direct Bilirubin 0.1 AST 30 ALT 30 Alkaline Phosphatase 86 Total Protein 7.1 Albumin 3.4 L 06/29/23 06/29/23 06/29/23 05:11 07:14 13:20 MCV 90.9 MCH 29.6 MCHC 32.6 RDW 12.7 Plt Count 230 MPV 9.8 Immature Gran % (Auto) 0.4 Neut % (Auto) 61.6 Lymph % (Auto) 24.3 [place] % (Auto) 11.5 H Eos % (Auto) 2.1 Baso % (Auto) 0.1 Lymph # (Auto) 1.7 [place] # (Auto) 0.8 Eos # (Auto) 0.2 Baso # (Auto) 0.0 Abs Immat Gran (auto) 0.03 Absolute Neuts (auto) 4.4 Absolute Nucleated RBC 0.000 Nucleated RBC % (auto) 0.0 Anion Gap 9 L Estim Creat Clear Calc 141.6 Estimated GFR > 60 POC Glucose 212 H 238 H Random Glucose 243 H Lactic Acid Calcium 8.9 Total Bilirubin Direct Bilirubin AST ALT Alkaline Phosphatase Total Protein Albumin Assessment and Plan (1) Bilateral lower leg cellulitis: Status: Acute Plan 53-year-old male with history of chronic venous stasis disease presents with 4 days of worsening pain erythema now on warmth consistent with cellulitis; was admitted for 17 however signed out AMA. Returned overnight with same 1. Venous stasis cellulitis bilateral lower extremities -vancomycin/zosyn (1) -encourage elevation -await cultures 2. Diabetes type 2 insulin-dependent -acceptable control on current therapies -lispro correctional scale -adjust as indicated 3. Paroxysmal atrial fibrillation -continue Eliquis 5 mg b.i.d. -continue current therapies as ordered -adjust as indicated Full code Eliquis Patient requires ongoing hospitalization for IV antibiotics to treat recurrent cellulitis Quality Stroke Does the patient have a stroke diagnosis?: No VTE Prior VTE?: No VTE Risk Level:: Medical - moderate - high VTE Device Contraindication: Treatment Not Indicated VTE Drug Contraindication: N/A - Med Ordered
[2023-06-29] MEDS: 0.9 % Sodium Chloride Flush 3 ML SYRINGE IVFLUSH ×2 (16:14→22:25)
[2023-06-29 16:28] LABS: Glucose, Whole Blood 176 mg/dL (60-115)
[2023-06-29] MEDS: Acetaminophen 325 MG TABLET 975 MG PO (17:22)
[2023-06-29 20:51] LABS: Glucose, Whole Blood 174 mg/dL (60-115)
[2023-06-29] MEDS: oxyCODONE HCl Immed Release 5 MG TABLET PO (22:25)
[2023-06-29] MEDS: Insulin Glargine,Hum.rec.anlog 100 UNIT/ML 10 ML VIAL 50 UNIT SUBCUT (22:26)
[2023-06-30] MEDS: vancomycin HCL 1,250 MG in 0.9 % Sodium Chloride 250 ML 166.7 MG IV (01:22)
[2023-06-30 01:33] LABS: Glucose, Whole Blood 159 mg/dL (60-115)
[2023-06-30 03:05] VITALS: BP 123/60; PULSE 81; RESP 18; TEMP 36.4; O2SAT 98
[2023-06-30] MEDS: oxyCODONE HCl Immed Release 5 MG TABLET PO ×2 (04:20→19:32)
[2023-06-30] MEDS: Piperacillin Sodium/Tazobactam 3.375 GM in 0.9 % Sodium Chloride 50 ML IV ×4 (06:38→23:35)
[2023-06-30 07:17] LABS: Creatinine Clr Calc Pharmacy 158.5; Estimated Glomerular Filt Rate > 60
[2023-06-30 07:33] LABS: Glucose, Whole Blood 142 mg/dL (60-115)
[2023-06-30 07:36] VITALS: BP 119/59; PULSE 82; RESP 18; TEMP 36.3; O2SAT 97
[2023-06-30 08:04] VITALS: BP 119/59; PULSE 82
[2023-06-30] MEDS: dilTIAZem HCL CD 180 MG CAP.ER.24H PO (08:04)
[2023-06-30] MEDS: Metoprolol Succinate ER 100 MG TAB.ER.24H PO (08:04)
[2023-06-30] MEDS: Escitalopram Oxalate 20 MG TABLET PO (08:04)
[2023-06-30] MEDS: Apixaban 5 MG TABLET PO ×2 (08:04→19:24)
[2023-06-30] MEDS: metFORMIN HCl 1,000 MG TABLET 1000 MG PO ×2 (08:05→17:00)
[2023-06-30] MEDS: 0.9 % Sodium Chloride Flush 3 ML SYRINGE IVFLUSH ×3 (08:05→19:23)
[2023-06-30 10:41] LABS: Vancomycin Random 6.9 mcg/mL (15-20)
--- NOTE | 2023-06-30 10:56 | HE.PHANOTE ---
CONCETTA Increased dose to 1250 mg Q8H per subtherapeutic trough of 6.9. Next trough to be drawn on 06/30 @1000. Predicted AUC 430, predicted trough 11.9.
[2023-06-30 11:01] LABS: Glucose, Whole Blood 237 mg/dL (60-115)
[2023-06-30] MEDS: Insulin Lispro 100 UNIT/ML 3 ML VIAL SUBCUT ×3 (11:56→20:07)
[2023-06-30] MEDS: vancomycin HCL 1,250 MG in 0.9 % Sodium Chloride 250 ML 166.67 MG IV ×2 (11:57→19:22)
--- NOTE | 2023-06-30 13:46 | HO.PM.IMPN ---
Subjective Subjective Date of Service: 06/30/23 Interval History: Leg slowly improving. Less pain per patient; less warmth Review of Systems Denies chest pain Denies shortness of breath Denies nausea vomiting diarrhea Denies fever chills Physical Exam Vital Signs: Vital Signs: Last Vital Signs Temp 97.4 F 06/30/23 07:36 Pulse 82 06/30/23 08:04 Resp 18 06/30/23 07:36 BP 119/59 L 06/30/23 08:04 Pulse Ox 97 06/30/23 07:36 O2 Del Method Room Air 06/30/23 07:36 BMI result Body Mass Index 39.2 Const: Other: Awake alert no acute distress Resp: Other: Clear to auscultation bilaterally. No rales rhonchi or wheezes Cardio: Other: No S4; positive S1-S2; no S3 murmurs rubs or gallops GI: Other: Soft nontender nondistended normoactive bowel sounds Extrem: Other: No edema bilaterally Objective Data Active Medications Acetaminophen (Acetaminophen 325 Mg Tablet) 975 mg PO Q6H PRN PRN Reason: mild pain and fever Last Admin: 06/29/23 17:22 Dose: 975 mg Documented By: JASON Albuterol Sulfate (Albuterol Sulfate 90 Mcg 8 Gm Inhaler) 2 puff INHALE Q4H PRN PRN Reason: wheezing and/or shortness of breath Apixaban (Apixaban 5 Mg Tablet) 5 mg PO BID [facility] Last Admin: 06/30/23 08:04 Dose: 5 mg Documented By: ADELIA Buspirone HCl (Buspirone Hcl 10 Mg Tablet) 30 mg PO BID [facility] Last Admin: 06/30/23 08:05 Dose: Not Given Documented By: ADELIA Non-Admin Reason: Patient Refused Diltiazem HCl (Diltiazem Hcl Cd 180 Mg Cap.Er.24h) 180 mg PO DAILY [facility]; Protocol Last Admin: 06/30/23 08:04 Dose: 180 mg Documented By: ADELIA Escitalopram Oxalate (Escitalopram Oxalate 20 Mg Tablet) 20 mg PO DAILY [facility] Last Admin: 06/30/23 08:04 Dose: 20 mg Documented By: ADELIA Glucose (Glucose Gel 15 Gm Gel..Gram.) 15 gm PO Q15M PRN; Protocol PRN Reason: per Hypoglycemia Standing Ord. Dextrose (D10) 250 mls @ 750 mls/hr IV Q15M PRN; Protocol PRN Reason: per Hypoglycemia Standing Ord. Piperacillin Sod/Tazobactam (Sod 3.375 gm/ Sodium Chloride) 50 mls @ 100 mls/hr IV Q6H [facility] Last Infusion: 06/30/23 11:48 Dose: Infused Documented By: ADELIA Vancomycin HCl 1,250 mg/ (Sodium Chloride) 250 mls @ 166.667 mls/hr IV Q8H [facility] Last Admin: 06/30/23 11:57 Dose: 166.67 mls/hr Documented By: ADELIA Insulin Glargine (Insulin Glargine,Hum.Rec.Anlog 100 Unit/Ml 10 Ml Vial) 50 unit SUBCUT BEDTIME [facility] Last Admin: 06/29/23 22:26 Dose: 50 unit Documented By: BRADLEY Insulin Human Lispro (Insulin Lispro 100 Unit/Ml 3 Ml Vial) 0 unit SUBCUT QIDACHS [facility]; Protocol Last Admin: 06/30/23 11:56 Dose: 6 unit Documented By: ADELIA Metformin HCl (Metformin Hcl 1,000 Mg Tablet) 1,000 mg PO BIDWM [facility] Last Admin: 06/30/23 08:05 Dose: 1,000 mg Documented By: ADELIA Metoprolol Succinate (Metoprolol Succinate Er 100 Mg Tab.Er.24h) 100 mg PO DAILY [facility]; Protocol Last Admin: 06/30/23 08:04 Dose: 100 mg Documented By: ADELIA Oxycodone HCl (Oxycodone Hcl Immed Release 5 Mg Tablet) 5 mg PO Q6H PRN PRN Reason: Pain, Severe (Pain Scale 7-10) Last Admin: 06/30/23 04:20 Dose: 5 mg Documented By: BRADLEY Pharmacy Consult (Consult Rx Vancomycin Dosing) 1 each MISCELLANE DAILY PRN PRN Reason: Consult order Sodium Chloride (0.9 % Sodium Chloride Flush 3 Ml Syringe) 3 ml IVFLUSH QSHIFT [facility] Last Admin: 06/30/23 08:05 Dose: 3 ml Documented By: ADELIA Labs 06/29/23 05:11 06/30/23 05:27 Labs: Laboratory Results - last 24 hr 0406/29/23 06/30/23 16:24 20:20 01:29 Hold Purple Top Estim Creat Clear Calc Estimated GFR POC Glucose 176 H 174 H 159 H Random Vancomycin 06/30/23 06/30/23 06/30/23 05:27 07:30 10:06 Hold Purple Top SEE NOTE Estim Creat Clear Calc 158.5 Estimated GFR > 60 POC Glucose 142 H Random Vancomycin 6.9 L 06/30/23 10:56 Hold Purple Top Estim Creat Clear Calc Estimated GFR POC Glucose 237 H Random Vancomycin Microbiology Microbiology Results: Microbiology 06/28/23 23:02 Blood Culture - Preliminary Blood - Venous No growth after 24 hours. 06/28/23 23:02 Blood Culture - Preliminary Blood - Venous No growth after 24 hours. Assessment and Plan (1) Bilateral lower leg cellulitis: Status: Acute (2) Paroxysmal atrial fibrillation: Status: Acute Plan 53-year-old male with history of chronic venous stasis disease presents with 4 days of worsening pain erythema now on warmth consistent with cellulitis; was admitted for 17 however signed out AMA. Returned overnight with same... Slowly improving 1. Venous stasis cellulitis bilateral lower extremities -vancomycin/zosyn (2) -encourage elevation -await cultures 2. Diabetes type 2 insulin-dependent -acceptable control on current therapies -lispro correctional scale -adjust as indicated 3. Paroxysmal atrial fibrillation -continue Eliquis 5 mg b.i.d. -continue current therapies as ordered -adjust as indicated Full code Eliquis Patient requires ongoing hospitalization for IV antibiotics to treat recurrent cellulitis Quality Stroke Does the patient have a stroke diagnosis?: No VTE Prior VTE?: No VTE Risk Level:: Medical - moderate - high VTE Device Contraindication: Treatment Not Indicated VTE Drug Contraindication: N/A - Med Ordered
[2023-06-30 15:33] VITALS: BP 135/62; PULSE 85; RESP 18; TEMP 36.4; O2SAT 96
[2023-06-30 16:12] LABS: Glucose, Whole Blood 180 mg/dL (60-115)
[2023-06-30 19:12] VITALS: BP 140/65; PULSE 82; RESP 18; TEMP 36.8; O2SAT 98
[2023-06-30] MEDS: Insulin Glargine,Hum.rec.anlog 100 UNIT/ML 10 ML VIAL 50 UNIT SUBCUT (20:07)
[2023-06-30 20:11] LABS: Glucose, Whole Blood 177 mg/dL (60-115)
[2023-06-30] MEDS: Loperamide HCl 2 MG CAPSULE PO (21:50)
--- NOTE | 2023-07-01 01:18 | PC.NURSE ---
Pt seen on bed at the start of shift, c/o abdl cramps and loose stool x1, asking if any med for that, Dr. Qureshi was made aware, Immodium 1 cap ordered and given, so far no loose stool after med.
[2023-07-01 04:00] VITALS: BP 140/63; PULSE 76; RESP 18; TEMP 36.3; O2SAT 96
[2023-07-01] MEDS: vancomycin HCL 1,250 MG in 0.9 % Sodium Chloride 250 ML 166.67 MG IV (04:00)
[2023-07-01] MEDS: Piperacillin Sodium/Tazobactam 3.375 GM in 0.9 % Sodium Chloride 50 ML IV (05:49)
[2023-07-01 06:47] LABS: Creatinine Clr Calc Pharmacy 152.4; Estimated Glomerular Filt Rate > 60
[2023-07-01 07:43] LABS: Glucose, Whole Blood 121 mg/dL (60-115)
[2023-07-01 07:50] VITALS: BP 169/67; PULSE 81; RESP 16; TEMP 36; O2SAT 97
[2023-07-01 08:02] VITALS: BP 169/67; PULSE 81
[2023-07-01] MEDS: dilTIAZem HCL CD 180 MG CAP.ER.24H PO (08:02)
[2023-07-01 08:03] VITALS: BP 169/67; PULSE 81
[2023-07-01] MEDS: metFORMIN HCl 1,000 MG TABLET 1000 MG PO (08:03)
[2023-07-01] MEDS: 0.9 % Sodium Chloride Flush 3 ML SYRINGE IVFLUSH (08:03)
[2023-07-01] MEDS: Metoprolol Succinate ER 100 MG TAB.ER.24H PO (08:03)
[2023-07-01] MEDS: Escitalopram Oxalate 20 MG TABLET PO (08:03)
[2023-07-01] MEDS: Apixaban 5 MG TABLET PO (08:03)
[2023-07-01 11:12] LABS: Glucose, Whole Blood 252 mg/dL (60-115)
--- NOTE | 2023-07-01 11:31 | P.DS_ITS ---
DS: Providers Provider Date of Service: 07/01/23 Date of admission: 06/28/23 22:43 Date of discharge: 07/01/23 Primary care physician: Julio Carter MD DS: Diagnosis Discharge Diagnosis (1) Bilateral lower leg cellulitis: Status: Acute (2) Paroxysmal atrial fibrillation: Status: Acute DS: Summary Hospital Course Hospital Course: Herman Garduno is a very pleasant 53 years old man with past medical history significant for lower extremities venous stasis, type 2 diabetes mellitus on insulin, paroxysmal atrial fibrillation on Eliquis, depression/bipolar disorder, insomnia and essential hypertension presents to the emergency department complaining of several day history worsening edema to the lower extremity associated with redness. She did report fever but denies chills. Did not report headache, palpitations or dizziness. He also denied any acute cardiopulmonary, gastrointestinal or genitourinary symptoms. He admits occasional use of cocaine and marijuana. Denied alcohol abuse or tobacco smoking. He was hospitalized yesterday with diagnosis of lower extremity cellulitis but decided to leave AMA as he was waiting for a long time in the emergency department. He also wanted to sleep in his own bed. He was treated with vancomycin and doxycycline in the emergency department. In the ED, he was found to have stable vital signs. Last blood pressure 166/86 and there is mild tachycardia. Yesterday he has a spike of fever, 101.3. O2 sats are normal on RA. We will workup today showed resolution leukocytosis. There is no lactic acidosis. LFTs are normal. There is anemia of 11.6. Platelets are normal. There is marked hyperglycemia, last blood glucose is 390. Creatinine is 1.02 BUN 19. CO2 is elevated. Urine drug screen yesterday showed positive for opiates, fentanyl and marijuana. Hospital Course Patient was admitted to the general medical floor maintained on Zosyn and vancomycin without issue. Over the next 48 hours he progressed to the point of being able to ambulate with minimal pain and redness and warmth had resolved. At this point in time he is medically acceptable for discharge home with follow up with PCP Time Attestation Discharge Coordination Time (in mins): 35 Quality: Safe Use of Opioids Does Pt have an Active Cancer Diagnosis on the Problem List?: No Quality: Stroke Does the patient have a stroke diagnosis?: No Physical Exam Vital Signs: Vital Signs: Last Vital Signs Temp 96.8 F 07/01/23 07:50 Pulse 81 07/01/23 08:03 Resp 16 07/01/23 07:50 BP 169/67 H 07/01/23 08:03 Pulse Ox 97 07/01/23 07:50 O2 Del Method Room Air 07/01/23 07:50 BMI result Body Mass Index 39.2 Const: Other: Awake alert no acute distress Resp: Other: Clear to auscultation bilaterally. No rales rhonchi or wheezes Cardio: Other: No S4; positive S1-S2; no S3 murmurs rubs or gallops GI: Other: Soft nontender nondistended normoactive bowel sounds Extrem: Other: No edema bilaterally DS: Data Data Completed and Pending Labs on day of discharge: Laboratory Results - last 24 hr 06/30/23 06/30/23 07/01/23 16:03 19:55 05:38 Hold Purple Top SEE NOTE Creatinine 0.78 Estim Creat Clear Calc 152.4 Estimated GFR > 60 POC Glucose 180 H 177 H 07/01/23 07/01/23 07:38 11:09 Hold Purple Top Creatinine Estim Creat Clear Calc Estimated GFR POC Glucose 121 H 252 H Preliminary micro results at discharge 06/28/23 23:02 Blood Culture - Preliminary Blood - Venous No growth after 48 hours. 06/28/23 23:02 Blood Culture - Preliminary Blood - Venous No growth after 48 hours. Discharge Plan Discharge Anticipated Discharge Date/Time: 07/01/23 11:26 Patient Disposition: Home, Self-Care Discharge Diagnosis: Bilateral lower extremity cellulitis Referrals: Julio Carter MD [Primary Care Provider] - 1 Week Discharge Medications: New oxycodone 5 mg Tablet 5 mg PO Q6H PRN (Reason: Pain, Severe (Pain Scale 7-10)) Qty: 20 0RF Rx Instructions: Partial Fill upon patient request. doxycycline hyclate 100 mg tablet 100 mg PO BID Qty: 14 0RF Continued buspirone 30 mg tablet 30 mg PO BID diltiazem HCl 180 mg capsule,extended release 24hr 180 mg PO DAILY amlodipine 5 mg tablet 5 mg PO DAILY escitalopram oxalate 20 mg tablet 20 mg PO DAILY metformin 1,000 mg tablet 1,000 mg PO BID metoprolol succinate 100 mg tablet extended release 24 hr 100 mg PO DAILY Trulicity 3 mg/0.5 mL pen injector 3 mg subcut QWEEK albuterol sulfate [Ventolin HFA] 90 mcg/actuation HFA aerosol inhaler 2 puff inhalation Q4-6H PRN (Reason: wheezing and/or shortness of breath) zolpidem 10 mg tablet 10 mg PO BEDTIME insulin glargine [Lantus Solostar U-100 Insulin] 100 unit/mL (3 mL) insulin pen 30 unit subcut DAILY Eliquis 5 mg tablet 5 mg PO BID 30 Days Qty: 60 2RF Rx Instructions: x30 dats lisinopril 30 mg tablet 30 mg PO DAILY Qty: 90 1RF Discharge Orders: Discharge Order (Routine); Ordered 07/01/23 Ordered By: Luis Mora Diet: Advance to usual diet Activity on Discharge: As tolerated Stand Alone Forms: Patient Portal Discharge page Print Language: [place] Care Plan Goals: Continue all medicines as taken prior to hospital Health Concerns: Complete course of doxycycline 1 pill twice a day for 7 days. Oxycodone has been sent to your pharmacy to use as needed for pain Plan of Treatment: Follow-up with your PCP next available appointment Assessment: See discharge summary
[2023-07-01] MEDS: Insulin Lispro 100 UNIT/ML 3 ML VIAL SUBCUT (11:32)
[2023-07-01] MEDS: oxyCODONE HCl Immed Release 5 MG TABLET PO (11:35)
--- NOTE | 2023-07-01 11:40 | MHC.CM.PN ---
PATIENT IS DC HOME - NO SERVICES. RN AWARE OF PLAN.
== END 2023-07-01 12:33 | disposition home or self-care (01) | DRG 383 ==
LOC: HO.ED 22:42 → HO.EDOVER 22:47 → HO.S3 06-29 14:31
PROVIDERS: Admitting Provider Internal Medicine; Emergency Provider Emergency Medicine; PCP Internal Medicine; Visit Provider Hospitalist
DX: L03.116 Cellulitis of left lower limb (principal); D64.9 Anemia, unspecified; F31.9 Bipolar disorder, unspecified; F19.10 Other psychoactive substance abuse, uncomplicated; E11.65 Type 2 diabetes mellitus with hyperglycemia; I48.0 Paroxysmal atrial fibrillation; L03.115 Cellulitis of right lower limb; I87.8 Other specified disorders of veins; Z79.4 Long term (current) use of insulin; Z79.01 Long term (current) use of anticoagulants; Z79.84 Long term (current) use of oral hypoglycemic drugs; Z79.85 Long-term (current) use of injectable non-insulin antidiabetic drugs; Z79.899 Other long term (current) drug therapy
CPT/HCPCS: 36415; 80048; 80076; 80202; 82565; 82947; 83605; 85025; 87040; 99285; J0696; J2543; J3370; J3371

== ENCOUNTER → 2023-06-28 22:43 | Outpatient (BNV) | payer OTHER, SELFPAY | PROVIDERS: Admitting Provider Internal Medicine; Emergency Provider Emergency Medicine; PCP Internal Medicine; Visit Provider Internal Medicine | DX: L03.116 Cellulitis of left lower limb (principal); L03.115 Cellulitis of right lower limb; I48.0 Paroxysmal atrial fibrillation | CPT/HCPCS: 99232; 99233; 99239 ==

== ENCOUNTER 2023-07-30 15:06 | Outpatient (AMB) | payer OTHER, SELFPAY ==
--- NOTE | 2023-07-30 15:25 | A.OFFVIS_ITS ---
Intake Visit Reasons: 6m follow up Intake Note: Patient is Present for a 6mo follow-up on [facility] Medication: None Antibiotic Allergies: Pencillins Blood Thinners: Eliquis Dust Operator Required: No Accompanied by: Self / Same As Patient Allergies Penicillins [PENICILLINS] Allergy (Unknown, Verified 07/30/23 15:26) RASH Medication List - Last Reconciled 07/30/23 by Peyman Bhatti MD albuterol sulfate 90 mcg/actuation (Ventolin HFA) 2 puffs inhalation Q4-6H PRN amlodipine 5 mg PO DAILY apixaban (Eliquis) 5 mg PO BID 30 days blood sugar diagnostic (FreeStyle Lite Strips) DIRECTED THREE TIMES A DAY buspirone 30 mg PO BID clotrimazole-betamethasone 1-0.05 % 1 appl topical BID PRN diltiazem HCl CD 180 mg PO DAILY doxycycline hyclate 100 mg PO BID dulaglutide (Trulicity) 3 mg subcut QWEEK escitalopram oxalate 20 mg PO DAILY insulin glargine (Lantus Solostar U-100 Insulin) 30 units subcut DAILY lisinopril 30 mg PO DAILY metformin 1,000 mg PO BID metoprolol succinate ER 100 mg PO DAILY oxycodone 5 mg PO Q6H PRN zolpidem 10 mg PO BEDTIME HPI Comments Details: 07/30/23--Herman is here for 6 month fu, he states the the cream is working well and he does not need a circumcision. He denies FH prostate cancer, discussed PSA screening, Cont Lotrisone cream prn for balanitis. Review of chart: 01/29/23--Herman is here with complaints of irritation of foreskin, CoMorbidities DM. Obesity He denies hematuria. H/o polysubstance abuse exam- c/w balanitis Plan- pt states he is not interested in circumcision at this time Lotrisone cream prescribed [facility] Medical History Paroxysmal atrial fibrillation Morbid obesity Substance abuse Essential hypertension Cocaine abuse Erectile dysfunction Polysubstance abuse Paroxysmal atrial fibrillation with rapid ventricular response Lumbar degenerative disc disease Substance abuse Diabetes Depression Overactive bladder Arthritis BPH (benign prostatic hyperplasia) Asthma Seizure Morbid obesity with BMI of 40.0-44.9, adult Benign essential hypertension Insomnia Primary osteoarthritis of both knees Anxiety Family history of thyroid disorder Type 2 diabetes mellitus with hyperglycemia Surgical History No history of previous surgery Family History Father ETOH abuse Mother Diabetes Arthritis of knee Hypertension Other Mental health problem Substance abuse Social History Household Members: None Household Members Other:: 2 Housing: Apartment Housing Other:: rents a room Do you presently have visiting nurse or other home services: No Alcohol intake: current Alcohol intake frequency: does not drink Comment: refused bed alarm Patient Tobacco Use Status: Never used Tobacco e-Cigarette/Vaping Use: Never Used Second Hand Smoke Exposure: No Substance Use Type: Marijuana Advance Directives Date on File: 02/23/22 service: No Current occupational status: unemployed and disabled Sexual orientation: Straight/Heterosexual Cognitive needs: No Hearing needs: No Vision needs: No Results AMB Urinalysis, Automated UA Leukoctes 0 Marlee/uL Last Edit by CHINA Woo on 07/30/23 15:29 UA Nitrite Negative Last Edit by CHINA Woo on 07/30/23 15:29 UA Urobilinogen 0.2 mg/dL Last Edit by CHINA Woo on 07/30/23 15:2 9 UA Protein 0 mg/dL Last Edit by CHINA Woo on 07/30/23 15:29 UA pH 7.0 Last Edit by CHINA Woo on 07/30/23 15:29 UA Blood 0 Krunal/uL Last Edit by CHINA Woo on 07/30/23 15:29 UA Specific [place]at[place] 1.010 Last Edit by CHINA Woo on 07/30/23 15: 29 UA Ketone Negative Last Edit by CHINA Woo on 07/30/23 15:29 UA Bilirubin 0 mg/dL Last Edit by CHINA Woo on 07/30/23 15:29 UA Glucose 1000 mg/dL Last Edit by CHINA Woo on 07/30/23 15:29 3+ Levar Yang 07/30/23 15:29 Results Reviewed Results Reviewed: Laboratory Last Values Urine pH (Auto) 7.0 07/30/23 15: Specific [place]at[place] (Auto) 1.010 07/30/23 15:26 Urine Protein (Auto) 0 mg/dL 07/30/23 15:26 Glucose (UA)(Auto) 1000 mg/dL 07/30/23 15:26 Urine Ketones (Auto) Negative 07/30/23 15:26 Urine Blood (Auto) 0 Krunal/uL 07/30/23 15:26 Urine Nitrite (Auto) Negative 07/30/23 15:26 Urine Bilirubin (Auto) 0 mg/dL 07/30/23 15:26 Urine Urobilinogen (Auto) 0.2 mg/dL 07/30/23 15:26 Leukocyte Esterase (Auto) 0 Marlee/uL 07/30/23 15:26 Assessment & Plan Assessment & Plan (1) Balanitis: Code(s): N48.1 - Balanitis Category: Medical (2) Screening PSA (prostate specific antigen): Code(s): Z12.5 - Encounter for screening for malignant neoplasm of prostate Category: Medical (3) Redundant foreskin: Code(s): N47.8 - Other disorders of prepuce Category: Medical Plan clotrimazole-betamethasone 1-0.05 % apply to affected area bid for 7 days then bid PSA screening Orders: Orders 2 AMB Urinalysis Automated 07/30/23 Z13.9 - Encounter for screening, unspecified Medications: Refilled 2 clotrimazole-betamethasone 1-0.05 % apply to affected area bid for 7 days then bid 1 appl topical BID PRN 45 grams 2RF balanitis Patient Instructions: The patient had an opportunity to ask questions regarding treatment plan. The patient expressed understanding and agreement with the above treatment plan. The patient is aware they should contact our office by phone for worsening of their current condition or the appearance of new symptoms. Compliance is encouraged with any medications and followup testing that is ordered. It is a privilege to be allowed the opportunity to participate in the urologic care of your patient. If you have any questions or concerns regarding treatment for the above conditions please do not hesitate to contact me. The office telephone contact is [phone]. This note is constructed in part using voice recognition software. While every effort has been made to ensure accuracy fuel technician errors may have been included. Yours sincerely, Peyman Bhatti MD Coding Level of Care Code Est Pt Level 3 (48814) Diagnoses Balanitis N48.1 Screening PSA (prostate specific antigen) Z12.5 Redundant foreskin N47.8
== END 2023-07-30 15:59 | disposition home or self-care (01) ==
PROVIDERS: PCP Internal Medicine; Visit Provider Urology
DX: N48.1 Balanitis (principal); Z12.5 Encounter for screening for malignant neoplasm of prostate; N47.8 Other disorders of prepuce
CPT/HCPCS: 99213

== ENCOUNTER → 2023-07-30 15:06 | Outpatient (BNVA) | payer OTHER, SELFPAY | PROVIDERS: PCP Internal Medicine; Visit Provider Urology | DX: N48.1 Balanitis (principal); N47.8 Other disorders of prepuce; Z12.5 Encounter for screening for malignant neoplasm of prostate; Z79.01 Long term (current) use of anticoagulants | CPT/HCPCS: 81003; 99212 ==

== ENCOUNTER 2023-08-08 15:12 | Outpatient (AMB) | payer OTHER, SELFPAY ==
--- NOTE | 2023-08-08 15:34 | MHC.AMDMED ---
Intake Intake Visit Reasons: DM 30 min/CONFIRMED Cost Estimating Engineer Required: No Accompanied by: Self / Same As Patient Allergies Penicillins [PENICILLINS] Allergy (Unknown, Verified 07/30/23 15:26) RASH HPI Comprehensive Diabetes Asmnt Most Recent Diabetes Results: Hemoglobin A1c 8.4 % 10/01/19 Microalb/Creat Ratio 57.5 ug/mg cr (<30) H 03/08/23 Cholesterol 185 mg/dL (<200) 06/14/23 HDL Cholesterol 42 mg/dL (>40) 06/14/23 Triglycerides 223 mg/dL (<150) H 06/14/23 Creatinine 0.78 mg/dL (0.5-1.4) 07/01/23 Blood Urea Nitrogen 17 mg/dL (9-16) H 06/29/23 Sodium 139 mmol/L (135-145) 06/29/23 Potassium 3.8 mmol/L (3.3-5.1) 06/29/23 Chloride 105 mmol/L (96-108) 06/29/23 Carbon Dioxide 29 mmol/L (22-29) 06/29/23 Calcium 8.9 mg/dL (8.4-10.2) 06/29/23 AST 30 U/L (5-37) 06/28/23 ALT 30 U/L (0-40) 06/28/23 Total Protein 7.1 g/dL (6.5-8.0) 06/28/23 Albumin 3.4 g/dL (3.5-5.0) L 06/28/23 PFSH Medical History Paroxysmal atrial fibrillation Morbid obesity Substance abuse Essential hypertension Cocaine abuse Erectile dysfunction Polysubstance abuse Paroxysmal atrial fibrillation with rapid ventricular response Lumbar degenerative disc disease Substance abuse Diabetes Depression Overactive bladder Arthritis BPH (benign prostatic hyperplasia) Asthma Seizure Morbid obesity with BMI of 40.0-44.9, adult Benign essential hypertension Insomnia Primary osteoarthritis of both knees Anxiety Family history of thyroid disorder Type 2 diabetes mellitus with hyperglycemia Surgical History No history of previous surgery Family History Father ETOH abuse Mother Diabetes Arthritis of knee Hypertension Other Mental health problem Substance abuse Social History Household Members: None Household Members Other:: 2 Housing: Apartment Housing Other:: rents a room Do you presently have visiting nurse or other home services: No Alcohol intake: current Alcohol intake frequency: does not drink Comment: refused bed alarm Patient Tobacco Use Status: Never used Tobacco e-Cigarette/Vaping Use: Never Used Second Hand Smoke Exposure: No Substance Use Type: Marijuana Advance Directives Date on File: 02/23/22 service: No Current occupational status: unemployed and disabled Sexual orientation: Straight/Heterosexual Cognitive needs: No Hearing needs: No Vision needs: No Assessment & Plan Assessment & Plan (1) Diabetes: Code(s): E11.9 - Type 2 diabetes mellitus without complications Plan: Learning objectives: The patient was provided with verbal and written education on the following topics as outlined below. The patient met all learning objectives and was able to verbalize understanding and provide teach back of education topics discussed . The patient was provided with the opportunity to ask questions and all questions were answered. Patient Assessment Assess patient education level/literacy/barriers, patient is currently on snap benefits, his neighbor takes him shopping. Discussed with patient Healthy incentive program that provides patient an extra 40 dollars a month for fruit and vegetables Gave patient location of [place] and date and times of [place] [facility] [place] Patient questions/concerns, patient did not bring meter to today's visit reports last time he was in the hospital it was lost. Patient has not seen Dr. Shaver since April 2022, patient has appointment with Dr. Shaver coming up on 08/16/2023 Patient reports he does not remember the last time he had an eye exam, discussed with patient the importance of seeing an agricultural technical officer every year to be screened for retinopathy. List of ophthalmologists in the area given to patient at today's visit. Medications (If applicable) Name of medication Dosing/administration instructions Mechanism of action Potential side effects Potential adverse reaction and appropriate treatment Review onset, peak, duration Assess for concerns re: insurance coverage, cost, barriers to compliance Insulin/Injectables (If applicable) Storage/care of insulin Injection sites Site rotation Onset, peak, duration Drawing up insulin Injecting insulin/other injectables Sharps disposal Continuous blood glucose monitoring (if applicable) Know your goals New Goal:? Patient will have A1c drawn at next appointment with Dr. Shaver on 08/16/2023 Patient Response to instructions: Comprehension of Instructions: poor Readiness to make changes: Contemplation How confident they feel about making changes: Poor Portions of this note were created using voice recognition software, please excuse any words or phrases that may have been misinterpreted. Patient Instructions: Include regular daily activity. ADA recommends 30 minutes of exercise 5 days a week. Weight loss talk to PCP or Printing Machine Mechanic before starting new plan. Test blood sugar as directed; Fasting and 2hpp largest meal. Watch trends in results. Utilize results and to assess how food, physical activity and medications affect blood sugar results. Bring glucometer or CGM to next visit. Be knowledgeable about diabetes medication, its action, side effects, efficacy, toxicity, prescribed dosage, appropriate timing and frequency of administration, effect of missed and delayed doses and instructions for storage, travel and safety. Problem solving techniques to monitor hypo/hyperglycemia episodes and treatments. Reduce risk reduction behaviors, smoking cessation, regular eye, foot and dental examinations. Patient will follow-up with Diabetes Education nurse in 6 weeks' Coding Level of Care Code Est Pt Level 1 (31939) Diagnoses Diabetes E11.9
== END 2023-08-08 15:38 | disposition home or self-care (01) ==
PROVIDERS: PCP Internal Medicine; Visit Provider Registered Nurse Diabetes Educator
DX: E11.9 Type 2 diabetes mellitus without complications (principal)

== ENCOUNTER → 2023-08-08 15:12 | Outpatient (BNVA) | payer OTHER, SELFPAY | PROVIDERS: PCP Internal Medicine; Visit Provider Registered Nurse Diabetes Educator | DX: E11.9 Type 2 diabetes mellitus without complications (principal) | CPT/HCPCS: 99211 ==

== ENCOUNTER 2023-08-16 13:59 | Outpatient (AMB) | payer OTHER, SELFPAY ==
[2023-08-16 14:07] VITALS: BP 134/82; PULSE 70; BMI 41.1
--- NOTE | 2023-08-16 14:07 | A.OFFVIS_ITS ---
Vital Signs 08/16/23 14:07 Height 5 ft 11 in Weight 294 lb 15.656 oz BMI 41.1 BP 134/82 Blood Pressure Location Lt brachial Position Sitting Pulse 70 Pulse Source Pulse Oximeter Intake Visit Reasons: f/u Type 2 DM-confirmed Intake Note: Patient presents today to follow up on D2MT. Last Diabetic Eye exam: 3 year ago Last Podiatry Visit: Doesn't have one Random Glucose: 178 mg/dl HgA1c: 11.0% Clinical Nurse Specialist Required: No Accompanied by: Self / Same As Patient Allergies Penicillins [PENICILLINS] Allergy (Unknown, Verified 08/16/23 14:13) RASH Medication List - Last Reconciled 08/16/23 by Michael Shaver MD albuterol sulfate 90 mcg/actuation (Ventolin HFA) 2 puffs inhalation Q4-6H PRN amlodipine 5 mg PO DAILY apixaban (Eliquis) 5 mg PO BID 30 days blood sugar diagnostic (FreeStyle Lite Strips) DIRECTED THREE TIMES A DAY blood-glucose meter (FreeStyle Lite Meter kit) As directed buspirone 30 mg PO BID clotrimazole-betamethasone 1-0.05 % 1 appl topical BID PRN diltiazem HCl CD 180 mg PO DAILY doxycycline hyclate 100 mg PO BID dulaglutide (Trulicity) 1.5 mg (0.5 mL) subcut QWEEK escitalopram oxalate 20 mg PO DAILY insulin glargine (Lantus Solostar U-100 Insulin) 30 units subcut DAILY lisinopril 30 mg PO DAILY metformin 1,000 mg PO BID metoprolol succinate ER 100 mg PO DAILY oxycodone 5 mg PO Q6H PRN semaglutide (Ozempic) 1 mg (0.75 mL) subcut QWEEK 4 weeks tramadol 50 mg PO TID PRN 30 days zolpidem 10 mg PO BEDTIME PRN HPI Comments Details: Patient is 53 yo male with DM type 2 diagnosed 2014 who presents for management of diabetes. Last year had signed up for bariatric program but missed a class and was not able to continue. Was hoping to start this year but with covid has not been able to and is frustrated. Past medical history: DM2, HTN, history of non-ketodic hyperosmolar coma in 07/2019 Micro and macrovascular complications: none known Diabetes medications: Trulicity 1.5 mg/dl, metformin 1000mg BID , Glargine 50 units HS Symptoms reported: + numbness, tingling, cramping in lower extremities Hypoglycemia: denies Blood glucose monitoring: Unfortunately, patient did not bring glucometer, log book to follow-up appointment Last ophthalmology evaluation: 3 yrs ago no retinopathy. Laboratory Tests 10/01/19 10/01/19 10/01/19 10:16 10:25 10:25 Creatinine 1.03 Est GFR (Non-Af Amer) > 60 Hemoglobin A1c 8.4 Triglycerides 238 D LDL Cholesterol, Calc 86 HDL Cholesterol 37 D Total PSA TSH 3rd Generation 2.35 FSH Luteinizing Hormone Prolactin Total Testosterone Free Testosterone Bioavail Testosterone Sex Hormone Bind Glob Microalb/Creat Ratio 15.0 10/01/19 10/01/19 10:25 10:25 Creatinine Est GFR (Non-Af Amer) Hemoglobin A1c Triglycerides LDL Cholesterol, Calc HDL Cholesterol Total PSA 0.79 TSH 3rd Generation FSH 9.5 H Luteinizing Hormone 6.1 Prolactin 16.1 Total Testosterone 335, TNP Free Testosterone 72.9, 73.0 Bioavail Testosterone 137.2 Sex Hormone Bind Glob 17, TNP Microalb/Creat Ratio PFSH Medical History Paroxysmal atrial fibrillation Morbid obesity Substance abuse Essential hypertension Cocaine abuse Erectile dysfunction Polysubstance abuse Paroxysmal atrial fibrillation with rapid ventricular response Lumbar degenerative disc disease Substance abuse Diabetes Depression Overactive bladder Arthritis BPH (benign prostatic hyperplasia) Asthma Seizure Morbid obesity with BMI of 40.0-44.9, adult Benign essential hypertension Insomnia Primary osteoarthritis of both knees Anxiety Family history of thyroid disorder Type 2 diabetes mellitus with hyperglycemia Surgical History No history of previous surgery Family History Father ETOH abuse Mother Diabetes Arthritis of knee Hypertension Other Mental health problem Substance abuse Social History Household Members: None Household Members Other:: 2 Housing: Apartment Housing Other:: rents a room Do you presently have visiting nurse or other home services: No Alcohol intake: current Alcohol intake frequency: does not drink Comment: refused bed alarm Patient Tobacco Use Status: Never used Tobacco e-Cigarette/Vaping Use: Never Used Second Hand Smoke Exposure: No Substance Use Type: Marijuana Advance Directives Date on File: 02/23/22 service: No Current occupational status: unemployed and disabled Sexual orientation: Straight/Heterosexual Cognitive needs: No Hearing needs: No Vision needs: No Physical Exam Vital Signs: Last Vital Signs Pulse 70 08/16/23 14:07 BP 134/82 08/16/23 14:07 BMI result Body Mass Index 41.1 Absence of Cushingoid features. Absence of acromegalic features. Neck exam reveals nl size thyroid about 15 gms. No thyroid nodules palpable. No carotid bruits present. Lungs CTA. Heart S1 S2, Reg R/R. No M/R/ G. Skin exam reveals absence of vitiligo or acanthosis nigricans. Abdominal exam reveals Soft NT/ND with NA BS. No organomegaly present. Neck Other: . Extrem Other: Visual exam of foot performed. No ulcerations or open lesions. No onchomycosis, no callouses.Pulses 2 + distally Sensation intact to monofilament exam. Vibratory sensation sensed is decreased with 128 Hz tuning fork. Thre is 2+ edemal B/L Results AMB Hemoglobin A1c AMB Hemoglobin A1c 11.0 % Last Edit by CHINA Kaplan on 08/16/23 14:33 Results Reviewed Results Reviewed: Laboratory Last Values Glucose (Clinic) 178 mg/dL (60-115) H 08/16/23 14:16 Assessment & Plan Assessment & Plan (1) Type 2 diabetes mellitus with hyperglycemia: Comment: Admitted for [facility] in July 2019 Code(s): E11.65 - Type 2 diabetes mellitus with hyperglycemia Category: Medical Qualifiers: Diabetes mellitus rn long term care insulin use: without rn long term care use Qualified Code(s): E11.65 - Type 2 diabetes mellitus with hyperglycemia Plan: This is a 53-year-old male with a history of type 2 diabetes being treated with metformin, Trulicity and basal insulin with poor glycemic control and no known microvascular or macrovascular complication. Plan is to have the patient check his point cares pre and post meals. I had him meet with the special education paraeducator today to initiate Dexcom G7. I was unable to make changes to his regimen due to lack of data. . I also explained the relationship poor glycemic control to development of complications. . He was also told to go for his lipid profile ordered by the primary care provider. Orders: Orders AMB Hemoglobin A1c Today R73.9 - Hyperglycemia, unspecified, Z13.9 - Encounter for screening, unspecified Coding Level of Care Code Est Pt Level 4 (50966) Diagnoses Type 2 diabetes mellitus with hyperglycemia, without long-term current use of insulin E11.65 Diabetes mellitus rn long term care insulin use: without rn long term care use
[2023-08-16 14:20] LABS: Glucose, Whole Blood 178 mg/dL (60-115)
== END 2023-08-16 14:56 | disposition home or self-care (01) ==
PROVIDERS: PCP Internal Medicine; Visit Provider Internal Medicine Endocrinology, Diabetes & Metabolism
DX: Z13.9 Encounter for screening, unspecified (principal); R73.9 Hyperglycemia, unspecified; E11.65 Type 2 diabetes mellitus with hyperglycemia
CPT/HCPCS: 99214

== ENCOUNTER 2023-08-16 13:59 | Outpatient (REF) | payer OTHER, SELFPAY ==
[2023-08-16 15:24] LABS: MANUAL DIFF FLAG NO
[2023-08-16 16:16] LABS: Basophils Percent Auto 0.3 % (0-2); Eosinophils Absolute Auto 0.1 X10*3/uL (0.0-0.4); Eosinophils Percent Auto 0.7 % (0-4); Hematocrit 44.7 % (42.0-52.0); Hemoglobin 14.8 g/dl (14.0-18.0); Imm Gran Abs Auto 0.02 X10*3/uL (0.00-0.03); Imm Gran Pct Auto 0.3 % (0.0-0.4); Lymphocytes Absolute Auto 1.3 X10*3/uL (1.2-4.9); Lymphocytes Percent Auto 18.4 % (20-40); Mean Corpuscular HGB Conc 33.1 g/dl (31.0-36.0); Mean Corpuscular Hemoglobin 29.4 pg (27.0-33.0); Mean Corpuscular Volume 88.7 fL (80.0-98.0); Mean Platelet Volume 10.8 fL (9.4-12.4); Monocytes Absolute Auto 0.5 X10*3/uL (0.1-1.2); Monocytes Percent Auto 6.5 % (2-11); Neutrophils Absolute Auto 5.3 x10*3/uL (2.0-8.3); Neutrophils Percent Auto 73.8 % (45-73); Platelet Count 271 X10*3/uL (160-400); Red Blood Count 5.04 X10*6/uL (4.60-5.80); Red Cell Distribution Width 12.6 % (11.0-16.0); White Blood Count 7.2 X10*3/uL (4.8-10.8)
[2023-08-16 16:33] LABS: Appearance Urine Clear; Color Urine Yellow; Glucose Urine UA Negative (Negative); Leukocyte Esterase Urine Negative (Negative); Nitrite Urine Negative (Negative); Specific Gravity - Urine 1.025 (1.005-1.025); Urine Blood Negative (Negative); Urine Ketones Negative (Negative); Urine Protein Trace mg/dL (Neg-Trace)
[2023-08-16 16:37] LABS: Alanine Aminotransferase 14 U/L (0-40); Albumin Level 4.3 g/dL (3.5-5.0); Alkaline Phosphatase 107 U/L (39-117); Anion Gap 10 (12-20); Aspartate Amino Transferase 21 U/L (5-37); Bilirubin Total 0.7 mg/dL (0.0-1.0); Blood Urea Nitrogen 11 mg/dL (9-16); Calcium 9.8 mg/dL (8.4-10.2); Carbon Dioxide 27 mmol/L (22-29); Chloride 108 mmol/L (96-108); Cholesterol 150 mg/dL (<200); Estimated Glomerular Filt Rate > 60; Glucose Fasting 152 mg/dL (60-99); HDL Cholesterol 48 mg/dL (>40); LDL Cholesterol Calculated 84 mg/dL (<100); Potassium 4.3 mmol/L (3.3-5.1); Sodium 141 mmol/L (135-145); Total Protein 7.6 g/dL (6.5-8.0); Triglycerides 93 mg/dL (<150)
[2023-08-16 16:42] LABS: Creatinine Urine 180.21 mg/dL; Microalbum/Creatinine Ratio Ur 25.5 ug/mg cr (<30)
[2023-08-16 16:42] LABS: Estimated Average Glucose 237 mg/dL; Hemoglobin A1c % 9.9 % (<6.0)
[2023-08-16 16:57] LABS: TSH reflex Free T4 1.79 uIU/mL (0.32-4.0); Vitamin D 25-OH Total 25.4 ng/mL (>30)
[2023-08-16 17:09] LABS: Folate 11.3 ng/mL (> or = 4.0); Vitamin B12 626 pg/mL (200-900)
== END 2023-08-16 14:00 | disposition home or self-care (01) ==
LOC: HO.LAB 13:59
PROVIDERS: Urology; Absent Provider Internal Medicine; PCP Internal Medicine; Visit Provider Internal Medicine Endocrinology, Diabetes & Metabolism
DX: E11.65 Type 2 diabetes mellitus with hyperglycemia (principal); E78.00 Pure hypercholesterolemia, unspecified; R30.0 Dysuria; E55.9 Vitamin D deficiency, unspecified; E53.8 Deficiency of other specified B group vitamins; I10 Essential (primary) hypertension; Z12.5 Encounter for screening for malignant neoplasm of prostate; Z71.89 Other specified counseling
CPT/HCPCS: 36415; 80053; 80061; 81003; 82043; 82306; 82570; 82607; 82746; 82947; 83036; 84153; 84443; 85025; 99211; 99212

== ENCOUNTER 2023-08-16 14:56 | Outpatient (AMB) | payer OTHER, SELFPAY ==
--- NOTE | 2023-08-16 15:46 | MHC.AMDMED ---
Intake Intake Visit Reasons: Type 2 DM Accounts Payable Clerk Required: No Accompanied by: Self / Same As Patient Allergies Penicillins [PENICILLINS] Allergy (Unknown, Verified 08/16/23 14:13) RASH HPI Comprehensive Diabetes Asmnt Most Recent Diabetes Results: Cholesterol 185 mg/dL (<200) 06/14/23 HDL Cholesterol 42 mg/dL (>40) 06/14/23 Triglycerides 223 mg/dL (<150) H 06/14/23 Creatinine 0.78 mg/dL (0.5-1.4) 07/01/23 Blood Urea Nitrogen 17 mg/dL (9-16) H 06/29/23 Sodium 139 mmol/L (135-145) 06/29/23 Potassium 3.8 mmol/L (3.3-5.1) 06/29/23 Chloride 105 mmol/L (96-108) 06/29/23 Carbon Dioxide 29 mmol/L (22-29) 06/29/23 Calcium 8.9 mg/dL (8.4-10.2) 06/29/23 AST 30 U/L (5-37) 06/28/23 ALT 30 U/L (0-40) 06/28/23 Total Protein 7.1 g/dL (6.5-8.0) 06/28/23 Albumin 3.4 g/dL (3.5-5.0) L 06/28/23 REPLACED BY [facility] Medical History Paroxysmal atrial fibrillation Morbid obesity Substance abuse Essential hypertension Cocaine abuse Erectile dysfunction Polysubstance abuse Paroxysmal atrial fibrillation with rapid ventricular response Lumbar degenerative disc disease Substance abuse Diabetes Depression Overactive bladder Arthritis BPH (benign prostatic hyperplasia) Asthma Seizure Morbid obesity with BMI of 40.0-44.9, adult Benign essential hypertension Insomnia Primary osteoarthritis of both knees Anxiety Family history of thyroid disorder Type 2 diabetes mellitus with hyperglycemia Surgical History No history of previous surgery Family History Father ETOH abuse Mother Diabetes Arthritis of knee Hypertension Other Mental health problem Substance abuse Social History Household Members: None Household Members Other:: 2 Housing: Apartment Housing Other:: rents a room Do you presently have visiting nurse or other home services: No Alcohol intake: current Alcohol intake frequency: does not drink Comment: refused bed alarm Patient Tobacco Use Status: Never used Tobacco e-Cigarette/Vaping Use: Never Used Second Hand Smoke Exposure: No Substance Use Type: Marijuana Advance Directives Date on File: 02/23/22 service: No Current occupational status: unemployed and disabled Sexual orientation: Straight/Heterosexual Cognitive needs: No Hearing needs: No Vision needs: No Assessment & Plan Assessment & Plan (1) Diabetes: Code(s): E11.9 - Type 2 diabetes mellitus without complications Plan: Patient at visit to set up an insert Dexcom G7 Instructed patient sensors water proof you can shower, or swim do not submerge sensor in water for over 30 minutes Is sensor falls off cannot put back in you need to replace sensor, customer service number given to patient for sensor replacement Sensor placed on the R arm Patient left visit with sensor in warmup Reviewed how to interpret trend arrows Reminded patient that to check finger sticks if symptoms do not match sensor reading. Discussed lag time between finger stick and sensor data.? Instructed patient she should always keep blood glucometer for backup testing if needed Reviewed delay of CGM from fingersticks Reminded pt that if symptoms do not match sensor still needs to check fingersticks. Portions of this note were created using voice recognition software, please excuse any words or phrases that may have been misinterpreted. Coding Level of Care Code Est Pt Level 1 (65196) Diagnoses Diabetes E11.9 Results AMB Hemoglobin A1c AMB Hemoglobin A1c 11.0 % Last Edit by CHINA Kaplan on 08/16/23 14:33
== END 2023-08-16 14:57 | disposition home or self-care (01) ==
LOC: HO.ENCR 14:56
PROVIDERS: PCP Internal Medicine; Visit Provider Registered Nurse Diabetes Educator
DX: E11.9 Type 2 diabetes mellitus without complications (principal)

== ENCOUNTER 2023-08-24 16:08 | Outpatient (AMB) | payer OTHER, SELFPAY ==
--- NOTE | 2023-08-24 16:23 | A.OFFPC_ITS ---
Vital Signs 08/24/23 16:41 Height 5 ft 11 in Weight 299 lb 4 oz BMI 41.7 BP 160/86 H Blood Pressure Location Lt brachial Position Sitting Pulse 102 H Pulse Source Pulse Oximeter Pulse Oximetry (%) 98 Oxygen Delivery Method Room Air Intake Visit Reasons: ED FUP - NEEDS A1C Forklift Supervisor Required: No Accompanied by: Self / Same As Patient Allergies Penicillins [PENICILLINS] Allergy (Unknown, Verified 08/24/23 17:03) RASH Medication List - Last Reconciled 08/24/23 by Julio Carter MD albuterol sulfate 90 mcg/actuation (Ventolin HFA) 2 puffs inhalation Q4-6H PRN amlodipine 5 mg PO DAILY apixaban (Eliquis) 5 mg PO BID 30 days blood sugar diagnostic (FreeStyle Lite Strips) DIRECTED THREE TIMES A DAY blood-glucose meter (FreeStyle Lite Meter kit) As directed buspirone 30 mg PO BID clotrimazole-betamethasone 1-0.05 % 1 appl topical BID PRN clotrimazole-betamethasone 1-0.05 % 1 appl topical BID PRN diltiazem HCl CD 180 mg PO DAILY doxycycline hyclate 100 mg PO BID dulaglutide (Trulicity) 1.5 mg (0.5 mL) subcut QWEEK escitalopram oxalate 20 mg PO DAILY insulin glargine (Lantus Solostar U-100 Insulin) 30 units subcut DAILY lidocaine 5% 2 patches topical DAILY lisinopril 30 mg PO DAILY metformin 1,000 mg PO BID metoprolol succinate ER 100 mg PO DAILY oxycodone 5 mg PO Q6H PRN tramadol 50 mg PO TID PRN 30 days zolpidem 10 mg PO BEDTIME PRN Tobacco use date assessed: 03/19/23 Dental Screening Dental Screen Date: 03/19/23 HPI ED FUP - NEEDS A1C HPI Details Patient comes in today for his follow up visit States that he currently feels okay He has not been back since March 2023 - states that he spent some time in the hospital here at [facility] a couple of months ago for cellulitis of his legs and also separately at the psychiatry unit for increasing depression and relapse of his drug use - was experiencing increasing withdrawal symptoms at the time He presently denies any headaches or dizziness Denies any chest pains, no increased SOB No nausea/vomiting, no abdominal pain No change in bowel habits noted He is now following up with Dr. Shaver and with a diabetic field artillery operations specialist for his diabetes Needs a few of his Rx refilled He would also like to get a referral to see ophthalmology for his eye exam and podiatry for his foot exam as he is a diabetic He had his follow up labs done last week - to discuss his results [facility] Medical History (Updated 08/24/23 @ 17:10 by Julio Carter MD) Type 2 diabetes mellitus with hyperglycemia Paroxysmal atrial fibrillation Morbid obesity Substance abuse Essential hypertension Cocaine abuse Erectile dysfunction Polysubstance abuse Paroxysmal atrial fibrillation with rapid ventricular response Lumbar degenerative disc disease Substance abuse Diabetes Depression Overactive bladder Arthritis BPH (benign prostatic hyperplasia) Asthma Seizure Morbid obesity with BMI of 40.0-44.9, adult Benign essential hypertension Insomnia Primary osteoarthritis of both knees Anxiety Family history of thyroid disorder Surgical History No history of previous surgery Family History Father ETOH abuse Mother Diabetes Arthritis of knee Hypertension Other Mental health problem Substance abuse Social History Household Members: None Household Members Other:: 2 Housing: Apartment Housing Other:: rents a room Do you presently have visiting nurse or other home services: No Alcohol intake: current Alcohol intake frequency: does not drink Comment: refused bed alarm Patient Tobacco Use Status: Never used Tobacco e-Cigarette/Vaping Use: Never Used Second Hand Smoke Exposure: No Substance Use Type: Marijuana Advance Directives Date on File: 02/23/22 service: No Current occupational status: unemployed and disabled Sexual orientation: Straight/Heterosexual Cognitive needs: No Hearing needs: No Vision needs: No Questionnaire Thrive Questionnaire Date Thrive assessed: 06/29/23 TODD-7 AMB Questionnaire TODD-7 Date TODD - 7 assessed: 03/19/23 Source: Developed by Drs. Michael Mcmanus, Penelope Pope, Cornell Snyder and colleagues, with an educational natty from [employer] Review of Systems Const Denies chills, Reports fatigue, Denies fever(s) and Denies headache(s) Eyes Reports blurry vision ENT Denies dysphagia, Denies dizziness, Denies otalgia, Denies headache(s), Denies neck pain, Denies odynophagia and Denies sore throat Card Denies chest pain, Reports pedal edema (bilateral, on and off), Reports leg edema (bilateral, on and off), Denies palpitations and Reports dyspnea on exertion (mild) Resp Denies cough, Reports dyspnea on exertion (mild) and Denies wheezing GI Denies abdominal pain, Denies constipation, Denies dysphagia, Denies heartburn, Denies diarrhea, Denies nausea, Denies odynophagia and Denies vomiting Denies difficulty urinating, Reports erectile dysfunction, Denies dysuria, Denies nocturia and Denies urinary frequency Musc Reports back pain and Denies neck pain Skin/Breast Denies rash Neuro Denies dizziness and Denies headache(s) Endo Reports fatigue and Denies palpitations Jose/Lymph Details: increasing swelling of both lower legs and feet Aller/Immun Denies wheezing Physical exam (Primary Care) Vital Signs: Last Vital Signs Pulse 102 H 08/24/23 16:41 BP 160/86 H 08/24/23 16:41 Pulse Ox 98 08/24/23 16:41 Oxygen Delivery Method Room Air 08/24/23 16:41 BMI result Body Mass Index 41.7 Tobacco/Smoking Status: Tobacco use Status Tobacco use date assessed 03/19/23 08/24/23 16:23 Patient Tobacco Use Status Never used Tobacco 08/24/23 16:23 e-Cigarette/Vaping Use Never Used 08/24/23 16:23 Thrive Assessment: Date of Thrive Assessment Date Thrive assessed 06/29/23 08/24/23 16:23 Const General: no acute distress and alert HENMT Ears: TM's normal bilaterally and EAC's normal Throat: Yes posterior oropharynx normal and Yes tonsils normal (no TP congestion) Neck Neck: Yes no lymphadenopathy and Yes supple Thyroid: Thyroid normal Resp Auscultation: clear to auscultation bilaterally, no rales and no wheezes Cardio Rate: regular rate Rhythm: regular rhythm Heart sounds: no murmurs GI Palpation (GI): Soft to palpation and nontender Auscultation: normal bowel sounds General: Yes no CVA tenderness Back/Spine/Pelvis Back: no CVA tenderness Thoracic/Lumbar Spine: lumbar spinal tenderness Skin Other: (+) mild erythema of the distal half of both lower legs Rashes: no rashes Extrem General: No clubbing and Yes edema (2+ bipedal edema) Results Reviewed Results Reviewed: Laboratory Tests 08/16/23 08/16/23 08/16/23 14:16 14:18 15:23 WBC 7.2 Hgb 14.8 D Hct 44.7 D Plt Count 271 Sodium 141 Potassium 4.3 Creatinine 0.81 Estimated GFR > 60 Glucose (Clinic) 178 H Fasting Glucose 152 H Hgb A1c (Clinic) 11.0 H Hemoglobin A1c % 9.9 H Calcium 9.8 D AST 21 ALT 14 Triglycerides 93 Cholesterol 150 LDL Cholesterol, Calc 84 HDL Cholesterol 48 Total PSA 0.50 Vitamin B12 626 25-OH Vitamin D Total 25.4 L TSH 1.79 Urine pH Ur Specific [place] Urine Protein Urine Glucose (UA) Urine Blood Urine Nitrite Ur Leukocyte Esterase Microalb/Creat Ratio 08/16/23 16:15 WBC Hgb Hct Plt Count Sodium Potassium Creatinine Estimated GFR Glucose (Clinic) Fasting Glucose Hgb A1c (Clinic) Hemoglobin A1c % Calcium AST ALT Triglycerides Cholesterol LDL Cholesterol, Calc HDL Cholesterol Total PSA Vitamin B12 25-OH Vitamin D Total TSH Urine pH 7.0 Ur Specific [place] 1.025 Urine Protein Trace Urine Glucose (UA) Negative Urine Blood Negative Urine Nitrite Negative Ur Leukocyte Esterase Negative Microalb/Creat Ratio 25.5 Assessment and Plan Assessment & Plan (1) Benign essential hypertension: Code(s): I10 - Essential (primary) hypertension Plan: Reinforced low sodium diet - goal is systolic BP of at least 120 to 130 mm or less Continue Lisinopril 30 mg QD and Amlodipine 5 mg QD He is also on Metoprolol ER 100 mg QD and Diltiazem CD 180 mg QD for atrial fibrillation but these should also help/impact his blood pressure (2) Type 2 diabetes mellitus with hyperglycemia: Comment: Admitted for [facility] in July 2019 Code(s): E11.65 - Type 2 diabetes mellitus with hyperglycemia Qualifiers: Diabetes mellitus terminal make up operator insulin use: without half-way use Sriram lified Code(s): E11.65 - Type 2 diabetes mellitus with hyperglycemia Plan: His HgbA1c was at 9.9% on his labs done last week but was at 11.0% when checked at the endocrinology office on the same day last week (it was previously at 8.4% back on 03/08/2023, at 9.2% back in January 2023 and >14.0% in August 2022) - goal is at least <7.0% Reinforced diabetic diet Continue Lantus 30 units daily at bedtime, Metformin 1000 mg BID and Trulicity 1.5 mg SQ once a week (we tried increasing this to 3 mg back in March 2023 but it looks like he never changed his dose since) He was seen for diabetic teaching recently and will continue to follow up with diabetes educators, crew member and with endocrinology (Dr. Shaver) as scheduled - has appt with diabetic field artillery operations specialist again next Sunday Podiatry and Ophthalmology referral are placed, per request (3) Paroxysmal atrial fibrillation with rapid ventricular response: Code(s): I48.0 - Paroxysmal atrial fibrillation Plan: Patient currently remains in sinus rhythm - states that he's had no recurrence of his symptoms since his hospitalization in October 2021, which was most likely triggered by his multiple drug use at the time Continue Metoprolol 100 mg BID and Diltiazem CD 180 mg QD Continue Eliquis 5 mg BID for thromboembolism prophylaxis Follow up with cardiology as scheduled (4) Lymphedema: Code(s): I89.0 - Lymphedema, not elsewhere classified Plan: Patient is again reminded to try to keep his legs elevated as often as he can to help minimize his edema He was hospitalized for a period of time a couple of months ago (June 2023) for cellulitis of the lower extremities, which is now resolved Losing weight should also help with his swelling although at this time, there appears to be no realistic expectation for this to happen (5) Seizure: Code(s): R56.9 - Unspecified convulsions Plan: No seizure recurrence since his hospitalization back in July 2019 - this was most likely brought on by his hyperosmolar coma EEG done at [facility] in July 2019 showed borderline abnormal results and recommended a 24 hour ambulatory EEG for further evaluation Follow up with neurology as scheduled/as needed - it also appears that he has not seen neurology at all in the past couple of years (6) Lumbar degenerative disc disease: Code(s): M51.36 - Other intervertebral disc degeneration, lumbar region Plan: Reinforced activity and weight-lifting restrictions Continue Tramadol 50 mg TID and Lidocaine patches 5% apply 2 patches QD PRN for pain Have offered to refer him to pain management for his back pain and knee pain in the past but patient declined He has also been advised a few times in the past when he asked for Rx that we will not start him on anything other than what he is currently on for pain, especially any opioid Rx, due to his known history of polysubstance abuse (7) Primary osteoarthritis of both knees: Code(s): M17.0 - Bilateral primary osteoarthritis of knee Plan: Continue Tramadol 50 mg TID PRN, Voltaren gel 1% apply PRN and Lidocaine 5% patches 2 patches QD PRN He has received cortisone injections into his knees from [facility] in the past with only slight relief Has apparently not followed up with orthopedics or with rheumatology in a while now and he is encouraged to try to schedule his follow ups with them [facility] He is currently requesting for Rx for a Rollator to help with his mobility - Rx printed and handed to patient (8) Asthma: Code(s): J45.909 - Unspecified asthma, uncomplicated Qualifiers: Asthma severity: mild Asthma persistence: intermittent Asthma complication type: uncomplicated Qualified Code(s): J45.20 - Mild intermittent asthma, uncomplicated Plan: Stable - continue Albuterol HFA 2 inhalations every 6 hours as needed (9) BPH (benign prostatic hyperplasia): Code(s): N40.0 - Benign prostatic hyperplasia without lower urinary tract symptoms Qualifiers: Lower urinary tract symptom presence: symptoms present Lower urinary tract symptom detail: urinary frequency Qualified Code(s): N40.1 - Benign prostatic hyperplasia with lower urinary tract symptoms; R35.0 - Frequency of micturition Plan: Continue Tamsulosin 0.4 mg QD (10) Polysubstance abuse: Code(s): F19.10 - Other psychoactive substance abuse, uncomplicated Plan: Admitted previously to using some heroin but his UDS tested positive for opiates, fentanyl, cocaine and marijuana multiple times last year, most recently in June 2023, when his UDS was again positive for opiates, fentanyl and marijuana He was referred to Addiction Medicine for further management at his last visit He has been advised again that we are not going to continue refilling his Tramadol Rx if he continues with his recreational drug use (11) Insomnia: Code(s): G47.00 - Insomnia, unspecified Qualifiers: Insomnia type: unspecified Qualified Code(s): G47.00 - Insomnia, unspecified Plan: Sleep hygiene reinforced Continue Zolpidem 10 mg QD PRN (12) Anxiety: Code(s): F41.9 - Anxiety disorder, unspecified Plan: Continue Buspirone 30 mg BID and Escitalopram 20 mg QD Follow up with psychiatry as scheduled (13) Depression: Code(s): F32.9 - Major depressive disorder, single episode, unspecified Qualifiers: Depression Type: major depressive disorder Major depression recurrence: recurrent Active/Remission status: currently active Major depression episode severity: unspecified Qualified Code(s): F33.9 - Major depressive disorder, recurrent, unspecified Plan: Continue Escitalopram 20 mg QD Follow up with psychiatry as scheduled (14) Morbid obesity with BMI of 40.0-44.9, adult: Code(s): E66.01 - Morbid (severe) obesity due to excess calories; Z68.41 - Body mass index [BMI] 40.0-44.9, adult Plan: Reinforced diet; exercise and weight loss are unrealistic expectations with this patient given his overall situation and motivation Plan Follow up in 3 months Orders: Referrals Podiatry Referral E11.65 - Type 2 diabetes mellitus with hyperglycemia Ophthalmology Referral E11.65 - Type 2 diabetes mellitus with hyperglycemia Medications: New [ROLLATOR] As directed 1 ea 0RF E66.01 - Morbid (severe) obesity due to excess calories, M17.0 - Bilateral primary osteoarthritis of knee, M51.36 - Other intervertebral disc degeneration, lumbar region, Z68.41 - Body mass index [BMI] 40.0-44.9, adult Refilled tramadol 50 mg PO TID 30 days PRN 90 tabs 0RF pain clotrimazole-betamethasone 1-0.05 % apply to affected area bid for 7 days then bid 1 appl topical BID PRN 45 grams 2RF balanitis zolpidem 10 mg PO BEDTIME PRN 30 tabs 0RF insomnia Discontinued oxycodone Partial Fill upon patient request. Discontinued Reason: Patient Completed Course 5 mg PO Q6H PRN 20 tabs 0RF Pain, Severe (Pain Scale 7-10) Coding Level of Care Code Est Pt Level 4 (78778) Complex EM visit Add On G2211 Diagnoses Benign essential hypertension I10 Type 2 diabetes mellitus with hyperglycemia, without long-term current use of insulin E11.65 Diabetes mellitus terminal make up operator insulin use: without terminal make up operator use Paroxysmal atrial fibrillation with rapid ventricular response I48.0 Lymphedema I89.0 Seizure R56.9 Lumbar degenerative disc disease M51.36 Primary osteoarthritis of both knees M17.0 Mild intermittent asthma without complication J45.20 Asthma severity: mild Asthma persistence: intermittent Asthma complication type: uncomplicated Benign prostatic hyperplasia with urinary frequency N40.1; R35.0 Lower urinary tract symptom presence: symptoms present Lower urinary tract symptom detail: urinary frequency Polysubstance abuse F19.10 Insomnia, unspecified type G47.00 Insomnia type: unspecified Anxiety F41.9 Episode of recurrent major depressive disorder, unspecified depression episode severity F33.9 Depression Type: major depressive disorder Major depression recurrence: recurrent Active/Remission status: currently active Major depression episode severity: unspecified Morbid obesity with BMI of 40.0-44.9, adult E66.01; Z68.41
[2023-08-24 16:41] VITALS: BP 160/86; PULSE 102; O2SAT 98; BMI 41.7
== END 2023-08-24 17:12 | disposition home or self-care (01) ==
PROVIDERS: PCP Internal Medicine; Visit Provider Internal Medicine
DX: E11.65 Type 2 diabetes mellitus with hyperglycemia (principal); I48.0 Paroxysmal atrial fibrillation; R56.9 Unspecified convulsions; F33.9 Major depressive disorder, recurrent, unspecified; F19.10 Other psychoactive substance abuse, uncomplicated; Z68.41 Body mass index [BMI] 40.0-44.9, adult; E66.01 Morbid (severe) obesity due to excess calories; I10 Essential (primary) hypertension; M51.36 Other intervertebral disc degeneration, lumbar region; I89.0 Lymphedema, not elsewhere classified; M17.0 Bilateral primary osteoarthritis of knee; J45.20 Mild intermittent asthma, uncomplicated
CPT/HCPCS: 99214; G2211

== ENCOUNTER 2023-08-27 13:03 | Outpatient (AMB) | payer OTHER, SELFPAY ==
--- NOTE | 2023-08-27 13:38 | A.OFFVIS_ITS ---
Intake Intake Visit Reasons: T2DM/CONFIRMED Machine Cementer Required: No Accompanied by: Self / Same As Patient Allergies Penicillins [PENICILLINS] Allergy (Unknown, Verified 08/24/23 17:03) RASH HPI Comprehensive Diabetes Asmnt Most Recent Diabetes Results: Microalb/Creat Ratio 25.5 ug/mg cr (<30) 08/16/23 Cholesterol 150 mg/dL (<200) 08/16/23 HDL Cholesterol 48 mg/dL (>40) 08/16/23 Triglycerides 93 mg/dL (<150) 08/16/23 Creatinine 0.81 mg/dL (0.5-1.4) 08/16/23 Blood Urea Nitrogen 11 mg/dL (9-16) 08/16/23 Sodium 141 mmol/L (135-145) 08/16/23 Potassium 4.3 mmol/L (3.3-5.1) 08/16/23 Chloride 108 mmol/L (96-108) 08/16/23 Carbon Dioxide 27 mmol/L (22-29) 08/16/23 Calcium 9.8 mg/dL (8.4-10.2) 08/16/23 AST 21 U/L (5-37) 08/16/23 ALT 14 U/L (0-40) 08/16/23 Total Protein 7.6 g/dL (6.5-8.0) 08/16/23 Albumin 4.3 g/dL (3.5-5.0) 08/16/23 [facility] Medical History (Updated 08/24/23 @ 17:10 by Julio Carter MD) Type 2 diabetes mellitus with hyperglycemia Paroxysmal atrial fibrillation Morbid obesity Substance abuse Essential hypertension Cocaine abuse Erectile dysfunction Polysubstance abuse Paroxysmal atrial fibrillation with rapid ventricular response Lumbar degenerative disc disease Substance abuse Diabetes Depression Overactive bladder Arthritis BPH (benign prostatic hyperplasia) Asthma Seizure Morbid obesity with BMI of 40.0-44.9, adult Benign essential hypertension Insomnia Primary osteoarthritis of both knees Anxiety Family history of thyroid disorder Surgical History No history of previous surgery Family History Father ETOH abuse Mother Diabetes Arthritis of knee Hypertension Other Mental health problem Substance abuse Social History Household Members: None Household Members Other:: 2 Housing: Apartment Housing Other:: rents a room Do you presently have visiting nurse or other home services: No Alcohol intake: current Alcohol intake frequency: does not drink Comment: refused bed alarm Patient Tobacco Use Status: Never used Tobacco e-Cigarette/Vaping Use: Never Used Second Hand Smoke Exposure: No Substance Use Type: Marijuana Advance Directives Date on File: 02/23/22 service: No Current occupational status: unemployed and disabled Sexual orientation: Straight/Heterosexual Cognitive needs: No Hearing needs: No Vision needs: No Assessment & Plan Assessment & Plan (1) Type 2 diabetes mellitus with hyperglycemia: Comment: Admitted for [facility] in July 2019 Code(s): E11.65 - Type 2 diabetes mellitus with hyperglycemia Qualifiers: Diabetes mellitus shelter insulin use: without extermination inspector use Qualified Code(s): E11.65 - Type 2 diabetes mellitus with hyperglycemia Plan: Patient at visit to set up an reinsertion for Dexcom G7 sensor Instructed patient sensors water proof you can shower, or swim do not submerge sensor in water for over 30 minutes Is sensor falls off cannot put back in you need to replace sensor, customer service number given to patient for sensor replacement Patient only had 12 hours worth of data on sensor that was inserted at last visit. Reviewed with patient options such as kinesthesia tape, or stronger overlay patch for Dexcom sensor to stay adhered. New Sensor placed on the back of R arm Patient left visit with sensor in warmup Reviewed how to interpret trend arrows Reminded patient that to check finger sticks if symptoms do not match sensor reading. Discussed lag time between finger stick and sensor data.? Instructed patient she should always keep blood glucometer for backup testing if needed Reviewed delay of CGM from fingersticks Reminded pt that if symptoms do not match sensor still needs to check fingersticks. Patient has agreed to start using Dexcom G7 sensor, message will be sent to Dr. Shaver to send prescription to patient's pharmacy Portions of this note were created using voice recognition software, please excuse any words or phrases that may have been misinterpreted. Coding Level of Care Code Est Pt Level 1 (27193) Diagnoses Type 2 diabetes mellitus with hyperglycemia, without long-term current use of insulin E11.65 Diabetes mellitus shelter insulin use: without shelter use
== END 2023-08-27 13:45 | disposition home or self-care (01) ==
PROVIDERS: PCP Internal Medicine; Visit Provider Registered Nurse Diabetes Educator
DX: E11.65 Type 2 diabetes mellitus with hyperglycemia (principal)

== ENCOUNTER → 2023-08-27 13:03 | Outpatient (BNVA) | payer OTHER, SELFPAY | PROVIDERS: PCP Internal Medicine; Visit Provider Registered Nurse Diabetes Educator | DX: E11.65 Type 2 diabetes mellitus with hyperglycemia (principal) | CPT/HCPCS: 99211 ==

== ENCOUNTER 2023-09-06 12:06 | Outpatient (AMB) | payer OTHER, SELFPAY ==
--- NOTE | 2023-09-06 12:16 | MHC.AMDMED ---
Intake Intake Visit Reasons: T2DM Bat Person Required: No Accompanied by: Self / Same As Patient Allergies Penicillins [PENICILLINS] Allergy (Unknown, Verified 08/24/23 17:03) RASH HPI Comprehensive Diabetes Asmnt Most Recent Diabetes Results: Microalb/Creat Ratio 25.5 ug/mg cr (<30) 08/16/23 Cholesterol 150 mg/dL (<200) 08/16/23 HDL Cholesterol 48 mg/dL (>40) 08/16/23 Triglycerides 93 mg/dL (<150) 08/16/23 Creatinine 0.81 mg/dL (0.5-1.4) 08/16/23 Blood Urea Nitrogen 11 mg/dL (9-16) 08/16/23 Sodium 141 mmol/L (135-145) 08/16/23 Potassium 4.3 mmol/L (3.3-5.1) 08/16/23 Chloride 108 mmol/L (96-108) 08/16/23 Carbon Dioxide 27 mmol/L (22-29) 08/16/23 Calcium 9.8 mg/dL (8.4-10.2) 08/16/23 AST 21 U/L (5-37) 08/16/23 ALT 14 U/L (0-40) 08/16/23 Total Protein 7.6 g/dL (6.5-8.0) 08/16/23 Albumin 4.3 g/dL (3.5-5.0) 08/16/23 [facility] Medical History (Updated 08/24/23 @ 17:10 by Julio Carter MD) Type 2 diabetes mellitus with hyperglycemia Paroxysmal atrial fibrillation Morbid obesity Substance abuse Essential hypertension Cocaine abuse Erectile dysfunction Polysubstance abuse Paroxysmal atrial fibrillation with rapid ventricular response Lumbar degenerative disc disease Substance abuse Diabetes Depression Overactive bladder Arthritis BPH (benign prostatic hyperplasia) Asthma Seizure Morbid obesity with BMI of 40.0-44.9, adult Benign essential hypertension Insomnia Primary osteoarthritis of both knees Anxiety Family history of thyroid disorder Surgical History No history of previous surgery Family History Father ETOH abuse Mother Diabetes Arthritis of knee Hypertension Other Mental health problem Substance abuse Social History Household Members: None Household Members Other:: 2 Housing: Apartment Housing Other:: rents a room Do you presently have visiting nurse or other home services: No Alcohol intake: current Alcohol intake frequency: does not drink Comment: refused bed alarm Patient Tobacco Use Status: Never used Tobacco e-Cigarette/Vaping Use: Never Used Second Hand Smoke Exposure: No Substance Use Type: Marijuana Advance Directives Date on File: 02/23/22 service: No Current occupational status: unemployed and disabled Sexual orientation: Straight/Heterosexual Cognitive needs: No Hearing needs: No Vision needs: No Assessment & Plan Assessment & Plan (1) Type 2 diabetes mellitus with hyperglycemia: Comment: Admitted for [facility] in July 2019 Code(s): E11.65 - Type 2 diabetes mellitus with hyperglycemia Qualifiers: Diabetes mellitus processing technician insulin use: without skilled nursing use Qualified Code(s): E11.65 - Type 2 diabetes mellitus with hyperglycemia Plan: Patient did not bring meter or sensor information to today's visit Called patient's pharmacy to see if he can bead picker Dexcom G7 sensors which he was approved for on 08/29/2023 patient will bead picker Dexcom G7 sensors, patient feels he can independently insert sensor and sensor code. Then he will return in 2 weeks for review of glucose data Coding Level of Care Code Est Pt Level 1 (59152) Diagnoses Type 2 diabetes mellitus with hyperglycemia, without long-term current use of insulin E11.65 Diabetes mellitus skilled nursing insulin use: without processing technician use
== END 2023-09-06 12:18 | disposition home or self-care (01) ==
PROVIDERS: PCP Internal Medicine; Visit Provider Registered Nurse Diabetes Educator
DX: E11.65 Type 2 diabetes mellitus with hyperglycemia (principal)

== ENCOUNTER → 2023-09-06 12:06 | Outpatient (BNVA) | payer OTHER, SELFPAY | PROVIDERS: PCP Internal Medicine; Visit Provider Registered Nurse Diabetes Educator | DX: E11.65 Type 2 diabetes mellitus with hyperglycemia (principal) | CPT/HCPCS: 99211 ==

== ENCOUNTER 2023-09-18 12:19 | Outpatient (AMB) | payer OTHER, SELFPAY ==
--- NOTE | 2023-09-18 12:45 | A.OFFVIS_ITS ---
Intake Intake Visit Reasons: 30 min-confirmed Project Accountant Required: No Accompanied by: Self / Same As Patient Allergies Penicillins [PENICILLINS] Allergy (Unknown, Verified 08/24/23 17:03) RASH HPI Comprehensive Diabetes Asmnt Most Recent Diabetes Results: Microalb/Creat Ratio 25.5 ug/mg cr (<30) 08/16/23 Cholesterol 150 mg/dL (<200) 08/16/23 HDL Cholesterol 48 mg/dL (>40) 08/16/23 Triglycerides 93 mg/dL (<150) 08/16/23 Creatinine 0.81 mg/dL (0.5-1.4) 08/16/23 Blood Urea Nitrogen 11 mg/dL (9-16) 08/16/23 Sodium 141 mmol/L (135-145) 08/16/23 Potassium 4.3 mmol/L (3.3-5.1) 08/16/23 Chloride 108 mmol/L (96-108) 08/16/23 Carbon Dioxide 27 mmol/L (22-29) 08/16/23 Calcium 9.8 mg/dL (8.4-10.2) 08/16/23 AST 21 U/L (5-37) 08/16/23 ALT 14 U/L (0-40) 08/16/23 Total Protein 7.6 g/dL (6.5-8.0) 08/16/23 Albumin 4.3 g/dL (3.5-5.0) 08/16/23 [facility] Medical History (Updated 08/24/23 @ 17:10 by Julio Carter MD) Type 2 diabetes mellitus with hyperglycemia Paroxysmal atrial fibrillation Morbid obesity Substance abuse Essential hypertension Cocaine abuse Erectile dysfunction Polysubstance abuse Paroxysmal atrial fibrillation with rapid ventricular response Lumbar degenerative disc disease Substance abuse Diabetes Depression Overactive bladder Arthritis BPH (benign prostatic hyperplasia) Asthma Seizure Morbid obesity with BMI of 40.0-44.9, adult Benign essential hypertension Insomnia Primary osteoarthritis of both knees Anxiety Family history of thyroid disorder Surgical History No history of previous surgery Family History Father ETOH abuse Mother Diabetes Arthritis of knee Hypertension Other Mental health problem Substance abuse Social History Household Members: None Household Members Other:: 2 Housing: Apartment Housing Other:: rents a room Do you presently have visiting nurse or other home services: No Alcohol intake: current Alcohol intake frequency: does not drink Comment: refused bed alarm Patient Tobacco Use Status: Never used Tobacco e-Cigarette/Vaping Use: Never Used Second Hand Smoke Exposure: No Substance Use Type: Marijuana Advance Directives Date on File: 02/23/22 service: No Current occupational status: unemployed and disabled Sexual orientation: Straight/Heterosexual Cognitive needs: No Hearing needs: No Vision needs: No Assessment & Plan Assessment & Plan (1) Type 2 diabetes mellitus with hyperglycemia: Comment: Admitted for [facility] in July 2019 Code(s): E11.65 - Type 2 diabetes mellitus with hyperglycemia Qualifiers: Diabetes mellitus technician terminal and repeater insulin use: without technician terminal and repeater use Qualified Code(s): E11.65 - Type 2 diabetes mellitus with hyperglycemia Plan: Patient at visit for follow-up blood glucose check, and diabetes education Patient reports blood sugars below: Date Breakfast/Fasting Pre-Lunch Pre-Supper Bedtime Notes 09/17 48 Patient reported he had fight with his girlfriend and ate 11 donuts 09/16 216 / 247 /6 226 09/13 197 The patient met all learning objectives and was able to verbalize understanding and provide teach back of education topics discussed . The patient was provided with the opportunity to ask questions and all questions were answered. Topics covered in today?s session included: Medications (If applicable) * Name of medication? * Dosing/administration instructions? * Mechanism of action? * Potential side effects? * Potential adverse reaction and appropriate treatment? * Review onset, peak, duration Assess for concerns re: insurance coverage, cost, barriers to compliance Insulin/Injectables (If applicable) * Storage/care of insulin?? * Injection sites? * Site rotation? * Onset, peak, duration * Drawing up insulin? * Injecting insulin/other injectables? * Sharps disposalContinuous blood glucose monitoring (if applicable) Plan/Goal: Patient will insert Dexcom G6 sensor follow-up with natural resources extension educator in 2 weeks Portions of this note were created using voice recognition software, please excuse any words or phrases that may have been misinterpreted. Patient Instructions: Follow-up with natural resources extension educator in 2 weeks Coding Level of Care Code Est Pt Level 1 (18000) Diagnoses Type 2 diabetes mellitus with hyperglycemia, without long-term current use of insulin E11.65 Diabetes mellitus technician terminal and repeater insulin use: without halfway use
== END 2023-09-18 13:10 | disposition home or self-care (01) ==
PROVIDERS: PCP Internal Medicine; Visit Provider Registered Nurse Diabetes Educator
DX: E11.65 Type 2 diabetes mellitus with hyperglycemia (principal)

== ENCOUNTER → 2023-09-18 12:19 | Outpatient (BNVA) | payer OTHER, SELFPAY | PROVIDERS: PCP Internal Medicine; Visit Provider Registered Nurse Diabetes Educator | DX: E11.65 Type 2 diabetes mellitus with hyperglycemia (principal) | CPT/HCPCS: 99211 ==

== ENCOUNTER 2023-10-31 14:02 | Outpatient (AMB) | payer OTHER, SELFPAY ==
--- NOTE | 2023-10-31 14:09 | MHC.AMDMED ---
Intake Intake Visit Reasons: 60 min-confirmed Ring Stamper Required: No Accompanied by: Self / Same As Patient Allergies Penicillins [PENICILLINS] Allergy (Unknown, Verified 08/24/23 17:03) RASH HPI Comprehensive Diabetes Asmnt Most Recent Diabetes Results: Hemoglobin A1c 8.4 % 10/01/19 Microalb/Creat Ratio 25.5 ug/mg cr (<30) 08/16/23 Cholesterol 150 mg/dL (<200) 08/16/23 HDL Cholesterol 48 mg/dL (>40) 08/16/23 Triglycerides 93 mg/dL (<150) 08/16/23 Creatinine 0.81 mg/dL (0.5-1.4) 08/16/23 Blood Urea Nitrogen 11 mg/dL (9-16) 08/16/23 Sodium 141 mmol/L (135-145) 08/16/23 Potassium 4.3 mmol/L (3.3-5.1) 08/16/23 Chloride 108 mmol/L (96-108) 08/16/23 Carbon Dioxide 27 mmol/L (22-29) 08/16/23 Calcium 9.8 mg/dL (8.4-10.2) 08/16/23 AST 21 U/L (5-37) 08/16/23 ALT 14 U/L (0-40) 08/16/23 Total Protein 7.6 g/dL (6.5-8.0) 08/16/23 Albumin 4.3 g/dL (3.5-5.0) 08/16/23 [facility] Medical History (Updated 08/24/23 @ 17:10 by Julio Carter MD) Type 2 diabetes mellitus with hyperglycemia Paroxysmal atrial fibrillation Morbid obesity Substance abuse Essential hypertension Cocaine abuse Erectile dysfunction Polysubstance abuse Paroxysmal atrial fibrillation with rapid ventricular response Lumbar degenerative disc disease Substance abuse Diabetes Depression Overactive bladder Arthritis BPH (benign prostatic hyperplasia) Asthma Seizure Morbid obesity with BMI of 40.0-44.9, adult Benign essential hypertension Insomnia Primary osteoarthritis of both knees Anxiety Family history of thyroid disorder Surgical History No history of previous surgery Family History Father ETOH abuse Mother Diabetes Arthritis of knee Hypertension Other Mental health problem Substance abuse Social History Household Members: None Household Members Other:: 2 Housing: Apartment Housing Other:: rents a room Do you presently have visiting nurse or other home services: No Alcohol intake: current Alcohol intake frequency: does not drink Comment: refused bed alarm Patient Tobacco Use Status: Never used Tobacco e-Cigarette/Vaping Use: Never Used Second Hand Smoke Exposure: No Substance Use Type: Marijuana Advance Directives Date on File: 02/23/22 service: No Current occupational status: unemployed and disabled Sexual orientation: Straight/Heterosexual Cognitive needs: No Hearing needs: No Vision needs: No Assessment & Plan Assessment & Plan (1) Type 2 diabetes mellitus with hyperglycemia: Comment: Admitted for [facility] in July 2019 Code(s): E11.65 - Type 2 diabetes mellitus with hyperglycemia Qualifiers: Diabetes mellitus termite treater insulin use: without termite treater use Qualified Code(s): E11.65 - Type 2 diabetes mellitus with hyperglycemia Plan: Patient at visit for follow-up blood glucose check, and diabetes education Patient reports blood sugars below: Date Breakfast/Fasting Pre-Lunch Pre-Supper Bedtime Notes 10/30 465 449 10/28 430 488 Patient reports that his girlfriend was cleaning his room and throughout his Dexcom [id number] and his breeding manager. At today's visit I told patient I will give him 1 more Dexcom G7 breeding manager, and some sample sensors let from now on he needs to make sure he keeps track of the sensors he picks up at the pharmacy. In addition patient has requested a prescription for Ozempic [address] of his Trulicity 1.5 mg Message sent to Dr. Shaver to advise if he is willing to switch patient back to Ozempic 1 mg Frankly, discussed with patient how his high blood sugars could be putting him in danger of DKA or HHNK. Does important that he continue only take his medication as prescribed And monitor his blood glucose more frequently Reviewed with patient foods that contain carbohydrates Patient instructed to set up Dexcom G7 sensor Follow-up with lay up operator in 1 month Portions of this note were created using voice recognition software, please excuse any words or phrases that may have been misinterpreted. Medications: Discontinued dulaglutide (Trulicity) Discontinued Reason: Doctor's Order 1.5 mg (0.5 mL) subcut QWEEK 2 mL 4RF Coding Level of Care Code Est Pt Level 1 (83001) Diagnoses Type 2 diabetes mellitus with hyperglycemia, without long-term current use of insulin E11.65 Diabetes mellitus snf insulin use: without snf use
== END 2023-10-31 14:45 | disposition home or self-care (01) ==
PROVIDERS: PCP Internal Medicine; Visit Provider Registered Nurse Diabetes Educator
DX: E11.65 Type 2 diabetes mellitus with hyperglycemia (principal)

== ENCOUNTER → 2023-10-31 14:02 | Outpatient (BNVA) | payer OTHER, SELFPAY | PROVIDERS: PCP Internal Medicine; Visit Provider Registered Nurse Diabetes Educator | DX: E11.65 Type 2 diabetes mellitus with hyperglycemia (principal) | CPT/HCPCS: 99211 ==

== ENCOUNTER 2023-12-11 13:46 | Outpatient (AMB) | payer OTHER, SELFPAY ==
[2023-12-11 13:51] VITALS: BP 152/78; PULSE 112; O2SAT 96; BMI 43.3
--- NOTE | 2023-12-11 13:51 | MHC.PC.OV ---
Vital Signs 12/11/23 13:51 Height 5 ft 11 in Weight 310 lb 4 oz BMI 43.3 BP 152/78 H Blood Pressure Location Lt brachial Position Sitting Pulse 112 H Pulse Source Pulse Oximeter Pulse Oximetry (%) 96 Oxygen Delivery Method Room Air Intake Visit Reasons: DM Survey And Mapping Technician Required: No Accompanied by: Self / Same As Patient Allergies Penicillins [PENICILLINS] Allergy (Unknown, Verified 12/17/23 00:18) RASH Medication List - Last Reconciled 12/17/23 by Julio Carter MD albuterol sulfate 90 mcg/actuation (Ventolin HFA) 2 puffs inhalation Q4-6H PRN amlodipine 5 mg PO DAILY apixaban (Eliquis) 5 mg PO BID 30 days blood-glucose meter,continuous ([employer] G7 Automotive Painter) As directed blood-glucose sensor ([employer] G7 Sensor device) As directed change every 10 days buspirone 30 mg PO BID clotrimazole-betamethasone 1-0.05 % 1 appl topical BID PRN diltiazem HCl CD 180 mg PO DAILY doxycycline hyclate 100 mg PO BID escitalopram oxalate 20 mg PO DAILY insulin glargine (Lantus Solostar U-100 Insulin) 50 units (0.5 mL) subcut DAILY 30 days lidocaine 5% 2 patches topical DAILY lisinopril 30 mg PO DAILY metformin 1,000 mg PO BID metoprolol succinate ER 100 mg PO DAILY pen needle, diabetic (BD Ultra-Fine Mini Pen Needle) USE DIRECTED ONCE DAILY [ROLLATOR As directed] semaglutide (Ozempic) 1 mg (0.75 mL) subcut QWEEK sodium chloride 0.65% (Saline Nasal) 2 sprays intranasal QID PRN tramadol 50 mg PO TID PRN 30 days zolpidem 10 mg PO BEDTIME PRN Tobacco use date assessed: 12/11/23 Dental Screening Dental Screen Date: 12/11/23 Did you have a dental visit in the last 12 months?: Yes Did you have a dental problem in the last 6 months where you did not have access to dental care?: No Was dental information given to patient?: Patient has dentist HPI DM HPI Details Patient comes in today for his follow up visit States that he currently feels okay except for increased dryness in his nasal mucosa lately, which he states can get very irritated He denies any headaches or dizziness Denies any chest pains, no increased SOB No nausea/vomiting, no abdominal pain No change in bowel habits noted Needs his Tramadol Rx refilled He has no follow up labs done recently [facility] Medical History Type 2 diabetes mellitus with hyperglycemia Paroxysmal atrial fibrillation Morbid obesity Substance abuse Essential hypertension Cocaine abuse Erectile dysfunction Polysubstance abuse Paroxysmal atrial fibrillation with rapid ventricular response Lumbar degenerative disc disease Substance abuse Diabetes Depression Overactive bladder Arthritis BPH (benign prostatic hyperplasia) Asthma Seizure Morbid obesity with BMI of 40.0-44.9, adult Benign essential hypertension Insomnia Primary osteoarthritis of both knees Anxiety Family history of thyroid disorder Surgical History No history of previous surgery Family History Father ETOH abuse Mother Diabetes Arthritis of knee Hypertension Other Mental health problem Substance abuse Social History Household Members: None Household Members Other:: 2 Housing: Apartment Housing Other:: rents a room Do you presently have visiting nurse or other home services: No Alcohol intake: current Alcohol intake frequency: does not drink Comment: refused bed alarm Patient Tobacco Use Status: Never used Tobacco e-Cigarette/Vaping Use: Never Used Second Hand Smoke Exposure: No Substance Use Type: Marijuana Advance Directives Date on File: 02/23/22 service: No Current occupational status: unemployed and disabled Sexual orientation: Straight/Heterosexual Cognitive needs: No Hearing needs: No Vision needs: No Questionnaire PHQ-9 Over the last 2 weeks, how often have you been bothered by any of the following problems? 1. Little interest or pleasure in doing things: several days 2. Feeling down, depressed, or hopeless: several days 3. Trouble falling or staying asleep, or sleeping too much: several days 4. Feeling tired or having little energy: several days 5. Poor appetite or overeating: several days 6. Feeling bad about yourself - or that you are a failure or have let yourself or your family down: several days 7. Trouble concentrating on things, such as reading the newspaper or watching television: not at all 8. Moving or speaking so slowly that other people could have noticed. Or the opposite - being so fidgety or restless that you have been moving around a lot more than usual: not at all 9. Thoughts that you would be better off or of hurting yourself in some way: not at all Total score: 6 Depression Screening Interpretation: Positive Depression Screening Follow-up: Existing condition and In treatment Depression Screening Done: Yes 07812 - PHQ-9 Billing: Yes Source: Developed by Drs. Michael Mcmanus, Penelope Pope, Cornell Snyder and colleagues, with an educational natty from [employer]. Thrive Questionnaire Date Thrive assessed: 12/11/23 I am a: Patient What is your living situation today?: I have a steady place to live Within the past 12 months, did the food you bought not last and you didn't have the money to get more?: Never true Within the past 12 months, did you worry whether your food would run out before you got money to buy more?: Never true Do you have trouble paying for medicines?: No Do you have trouble getting transportation to medical appointments?: No Do you have trouble paying your heating and electricity bill?: No Do you have trouble taking care of your child, family member or friend?: No Do you have trouble with day-to-day activities such as bathing, preparing meals, shopping, managing finances, etc.?: No Are you currently unemployed and looking for a job?: No Are you interested in more education?: No Please select the resources that you would like help with: None Currently or been in a relationship where the following occur: No concerns reported THRIVE Score: 0 AUDIT C Alcohol Use Questionnaire (AUDIT-C) 1. How often do you have a drink containing alcohol?: Monthly or less 2. How many drinks containing alcohol do you have on a typical day when you are drinking?: 1 or 2 3. How often do you have six or more drinks on one occasion?: Never Total Score: 1 Score Reviewed/Action Taken: Yes TODD-7 AMB Questionnaire TODD-7 Date TODD - 7 assessed: 12/11/23 Feeling nervous, anxious, or on edge: 0 = Not at all Not being able to stop or control worryin = Not at all Worrying too much about different things: 0 = Not at all Trouble relaxin = Not at all Being so restless that it is hard to sit still: 0 = Not at all Becoming easily annoyed or irritable: 0 = Not at all Feeling afraid as if something awful might happen: 0 = Not at all Total TODD-7 score (0-4 normal; 5-9 mild; 10-14 moderate; 15-21 severe): 0 Source: Developed by Drs. Michael Mcmanus, Penelope Pope, Cornell Snyder and colleagues, with an educational natty from [employer]. Review of Systems Const Denies chills, Reports fatigue, Denies fever(s) and Denies headache(s) Eyes Reports blurry vision ENT Denies dysphagia, Denies dizziness, Denies otalgia, Denies headache(s), Denies neck pain, Denies odynophagia and Denies sore throat Card Denies chest pain, Reports pedal edema (bilateral, on and off), Reports leg edema (bilateral, on and off), Denies palpitations and Reports dyspnea on exertion (mild) Resp Denies cough, Reports dyspnea on exertion (mild) and Denies wheezing GI Denies abdominal pain, Denies constipation, Denies dysphagia, Denies heartburn, Denies diarrhea, Denies nausea, Denies odynophagia and Denies vomiting Denies difficulty urinating, Reports erectile dysfunction, Denies dysuria, Denies nocturia and Denies urinary frequency Musc Reports back pain and Denies neck pain Skin/Breast Denies rash Neuro Denies dizziness and Denies headache(s) Endo Reports fatigue and Denies palpitations Jose/Lymph Details: increasing swelling of both lower legs and feet Aller/Immun Denies wheezing Physical exam (Primary Care) Vital Signs: Last Vital Signs Pulse 112 H 12/11/23 13:51 BP 152/78 H 12/11/23 13:51 Pulse Ox 96 12/11/23 13:51 Oxygen Delivery Method Room Air 12/11/23 13:51 BMI result Body Mass Index 43.3 Tobacco/Smoking Status: Tobacco use Status Tobacco use date assessed 12/11/23 12/11/23 13:53 Patient Tobacco Use Status Never used Tobacco 12/11/23 13:53 e-Cigarette/Vaping Use Never Used 12/11/23 13:53 PHQ-9: PHQ-9 Score PHQ-9: Total score 6 12/11/23 14:32 Depression Screening Interpretation: Positive Depression Screening Follow-up: Existing condition and In treatment Thrive Assessment: Date of Thrive Assessment Date Thrive assessed 12/11/23 12/11/23 13:53 Currently or been in a relationship where the following occur: No concerns reported Const General: no acute distress and alert HENMT Ears: TM's normal bilaterally and EAC's normal Throat: Yes posterior oropharynx normal and Yes tonsils normal (no TP congestion) Neck Neck: Yes no lymphadenopathy and Yes supple Thyroid: Thyroid normal Resp Auscultation: clear to auscultation bilaterally, no rales and no wheezes Cardio Rate: regular rate Rhythm: regular rhythm Heart sounds: no murmurs GI Palpation (GI): Soft to palpation and nontender Auscultation: normal bowel sounds General: Yes no CVA tenderness Back/Spine/Pelvis Back: no CVA tenderness Thoracic/Lumbar Spine: lumbar spinal tenderness Skin Other: (+) mild erythema of the distal half of both lower legs Rashes: no rashes Extrem General: No clubbing and Yes edema (2+ bipedal edema) Office Procedures Flu Questionnaire Does the patient have a severe egg allergy?: No Does the patient have severe life threatening allergies?: No Does the patient have a fever or illness today?: No Has the patient ever had Guillain-[place] Syndrome?: No Has the patient ever had any past reaction to a flu shot?: No Results AMB Hemoglobin A1c AMB Hemoglobin A1c 12.4 % Last Edit by CHINA Pollard on 12/11/23 14:06 Immunizations Fluarix Triv [id number] (PF) 45 mcg (15 mcg x 3)/0.5 mL IM syringe Performing Provider: Julio Carter MD [facility] Documented (not given) by: CHINA Pollard on 12/11/23 14:02 Reason Not Given: Patient Refused Results Reviewed Results Reviewed: Laboratory Last Values Hgb A1c (Clinic) 12.4 % (4.0-6.0) H 12/11/23 13:54 Coding Level of Care Code Est Pt Level 4 (98080) Diagnoses Type 2 diabetes mellitus with hyperglycemia, without long-term current use of insulin E11.65 Diabetes mellitus longterm insulin use: without bed bug exterminator use Benign essential hypertension I10 Paroxysmal atrial fibrillation with rapid ventricular response I48.0 Lymphedema I89.0 Seizure R56.9 Mild intermittent asthma without complication J45.20 Asthma severity: mild Asthma persistence: intermittent Asthma complication type: uncomplicated Degeneration of intervertebral disc of lumbar region with discogenic back pain M51.360 Disc-related pain type: discogenic back pain only Primary osteoarthritis of both knees M17.0 Benign prostatic hyperplasia with urinary frequency N40.1; R35.0 Lower urinary tract symptom presence: symptoms present Lower urinary tract symptom detail: urinary frequency Polysubstance abuse F19.10 Insomnia, unspecified type G47.00 Insomnia type: unspecified Anxiety F41.9 Episode of recurrent major depressive disorder, unspecified depression episode severity F33.9 Depression Type: major depressive disorder Major depression recurrence: recurrent Active/Remission status: currently active Major depression episode severity: unspecified Morbid obesity with BMI of 40.0-44.9, adult E66.01; Z68.41 Assessment & Plan Assessment & Plan (1) Type 2 diabetes mellitus with hyperglycemia: Comment: Admitted for [facility] in July 2019 Code(s): E11.65 - Type 2 diabetes mellitus with hyperglycemia Category: Medical Qualifiers: Diabetes mellitus longterm insulin use: without bed bug exterminator use Qualified Code(s): E11.65 - Type 2 diabetes mellitus with hyperglycemia Plan: His in-office HgbA1c today is at 12.4% (HgbA1c was at 9.9% back in August 2023) - goal is at least <7.0% Will have patient get some follow up labs done BENITO Reinforced diabetic diet Continue Lantus 30 units daily at bedtime, Metformin 1000 mg BID and Trulicity 1.5 mg SQ once a week He is being seen regularly now for diabetic teaching and he will continue to follow up with diabetes educators, dual hose cementer and with endocrinology (Dr. Shaver) as scheduled - has endocrinology appt on 01/18/2024 (2) Benign essential hypertension: Code(s): I10 - Essential (primary) hypertension Category: Medical Plan: Reinforced low sodium diet - goal is systolic BP of at least 120 to 130 mm or less Continue Lisinopril 30 mg QD and Amlodipine 5 mg QD He is also on Metoprolol ER 100 mg QD and Diltiazem CD 180 mg QD for atrial fibrillation but these should also help/impact his blood pressure (3) Paroxysmal atrial fibrillation with rapid ventricular response: Code(s): I48.0 - Paroxysmal atrial fibrillation Category: Medical Plan: Patient currently remains in sinus rhythm - states that he's had no recurrence of his symptoms since his hospitalization in October 2021, which was most likely triggered by his multiple drug use at the time Continue Metoprolol 100 mg BID and Diltiazem CD 180 mg QD Continue Eliquis 5 mg BID for thromboembolism prophylaxis Follow up with cardiology as scheduled (4) Lymphedema: Code(s): I89.0 - Lymphedema, not elsewhere classified Category: Medical Plan: Patient is again reminded to try to keep his legs elevated as often as he can to help minimize his edema He was hospitalized for a period of time back in June 2023 for cellulitis of the lower extremities Losing weight should also help with his swelling although at this time, there appears to be no realistic expectation for this to happen (5) Seizure: Code(s): R56.9 - Unspecified convulsions Category: Medical Plan: No seizure recurrence since his hospitalization back in July 2019 - this was most likely brought on by his hyperosmolar coma EEG done at [facility] in July 2019 showed borderline abnormal results and recommended a 24 hour ambulatory EEG for further evaluation Follow up with neurology as scheduled/as needed - it also appears that he has not seen neurology at all in the past couple of years (6) Asthma: Code(s): J45.909 - Unspecified asthma, uncomplicated Category: Medical Qualifiers: Asthma severity: mild Asthma persistence: intermittent Asthma complication type: uncomplicated Qualified Code(s): J45.20 - Mild intermittent asthma, uncomplicated Plan: Stable - continue Albuterol HFA 2 inhalations every 6 hours as needed (7) Lumbar degenerative disc disease: Code(s): M51.36 - Other intervertebral disc degeneration, lumbar region Category: Medical Qualifiers: Disc-related pain type: discogenic back pain only Qualified Code(s): M51.360 - Other intervertebral disc degeneration, lumbar region with discogenic back pain only Plan: Reinforced activity and weight-lifting restrictions Continue Tramadol 50 mg TID and Lidocaine patches 5% apply 2 patches QD PRN for pain Have offered to refer him to pain management for his back pain and knee pain in the past but patient declined He has also been advised a few times in the past when he asked for Rx that we will not start him on anything other than what he is currently on for pain, especially any opioid Rx, due to his known history of polysubstance abuse (8) Primary osteoarthritis of both knees: Code(s): M17.0 - Bilateral primary osteoarthritis of knee Category: Medical Plan: Continue Tramadol 50 mg TID PRN, Voltaren gel 1% apply PRN and Lidocaine 5% patches 2 patches QD PRN He has received cortisone injections into his knees from [facility] in the past with only slight relief Has apparently not followed up with orthopedics or with rheumatology in a while now and he is encouraged to try to schedule his follow ups with them BENIT[facility] He is currently requesting for Rx for a Rollator to help with his mobility - Rx printed and handed to patient (9) BPH (benign prostatic hyperplasia): Code(s): N40.0 - Benign prostatic hyperplasia without lower urinary tract symptoms Category: Medical Qualifiers: Lower urinary tract symptom presence: symptoms present Lower urinary tract symptom detail: urinary frequency Qualified Code(s): N40.1 - Benign prostatic hyperplasia with lower urinary tract symptoms; R35.0 - Frequency of micturition Plan: Continue Tamsulosin 0.4 mg QD (10) Polysubstance abuse: Code(s): F19.10 - Other psychoactive substance abuse, uncomplicated Category: Medical Plan: He was admitted previously to using some heroin but his UDS tested positive for opiates, fentanyl, cocaine and marijuana multiple times last year, most recently in June 2023, when his UDS was again positive for opiates, fentanyl and marijuana He was referred to Addiction Medicine for further management at his last visit He has been advised again that we are not going to continue refilling his Tramadol Rx if he continues with his recreational drug use (11) Insomnia: Code(s): G47.00 - Insomnia, unspecified Category: Medical Qualifiers: Insomnia type: unspecified Qualified Code(s): G47.00 - Insomnia, unspecified Plan: Sleep hygiene reinforced Continue Zolpidem 10 mg QD PRN (12) Anxiety: Code(s): F41.9 - Anxiety disorder, unspecified Category: Medical Plan: Continue Buspirone 30 mg BID and Escitalopram 20 mg QD Follow up with psychiatry as scheduled (13) Depression: Code(s): F32.9 - Major depressive disorder, single episode, unspecified Category: Medical Qualifiers: Depression Type: major depressive disorder Major depression recurrence: recurrent Active/Remission status: currently active Major depression episode severity: unspecified Qualified Code(s): F33.9 - Major depressive disorder, recurrent, unspecified Plan: Continue Escitalopram 20 mg QD Follow up with psychiatry as scheduled (14) Morbid obesity with BMI of 40.0-44.9, adult: Code(s): E66.01 - Morbid (severe) obesity due to excess calories; Z68.41 - Body mass index [BMI] 40.0-44.9, adult Category: Medical Plan: Reinforced diet; exercise and weight loss are unrealistic expectations with this patient given his overall situation and motivation Plan Follow up in 3 months Orders: Orders AMB Hemoglobin A1c 12/11/23 Z13.9 - Encounter for screening, unspecified Complete Blood Count Auto Diff 12/11/23 D64.9 - Anemia, unspecified Comprehensive [place]. Panel Fast 12/11/23 E78.00 - Pure hypercholesterolemia, unspecified Lipid Panel 12/11/23 E78.00 - Pure hypercholesterolemia, unspecified Comprehensive [place]. Panel Fast 3 Months E78.00 - Pure hypercholesterolemia, unspecified UA CC w/rflx Micro + Cult 3 Months R30.0 - Dysuria Vitamin D 25-OH Total 3 Months E55.9 - Vitamin D deficiency, unspecified Influenza [id number] Immunization 12/11/23 Z23 - Encounter for immunization Complete Blood Count Auto Diff 3 Months D64.9 - Anemia, unspecified Lipid Panel 3 Months E78.00 - Pure hypercholesterolemia, unspecified Hemoglobin A1c 3 Months E11.9 - Type 2 diabetes mellitus without complications Microalbumin, Random (w Creat) 3 Months E11.9 - Type 2 diabetes mellitus without complications TSH reflex Free T4 3 Months E78.00 - Pure hypercholesterolemia, unspecified Medications: New sodium chloride 0.65% (Saline Nasal) 2 sprays intranasal QID PRN 44 mL 5RF dry nasal passages Refilled tramadol 50 mg PO TID 30 days PRN 90 tabs 0RF pain [ROLLATOR] As directed 1 ea 0RF E66.01 - Morbid (severe) obesity due to excess calories, M17.0 - Bilateral primary osteoarthritis of knee, M51.36 - Other intervertebral disc degeneration, lumbar region, Z68.41 - Body mass index [BMI] 40.0-44.9, adult
== END 2023-12-11 14:44 | disposition home or self-care (01) ==
PROVIDERS: PCP Internal Medicine; Visit Provider Internal Medicine
DX: E11.65 Type 2 diabetes mellitus with hyperglycemia (principal); I48.0 Paroxysmal atrial fibrillation; R56.9 Unspecified convulsions; F19.10 Other psychoactive substance abuse, uncomplicated; F33.9 Major depressive disorder, recurrent, unspecified; Z68.41 Body mass index [BMI] 40.0-44.9, adult; E66.813 Obesity, class 3; I10 Essential (primary) hypertension; I89.0 Lymphedema, not elsewhere classified; J45.20 Mild intermittent asthma, uncomplicated; M51.360 Other intervertebral disc degeneration, lumbar region with discogenic back pain only; M17.0 Bilateral primary osteoarthritis of knee

== ENCOUNTER → 2023-12-11 13:46 | Outpatient (BNVA) | payer OTHER, SELFPAY | PROVIDERS: PCP Internal Medicine; Visit Provider Internal Medicine | DX: Z23 Encounter for immunization (principal); E11.65 Type 2 diabetes mellitus with hyperglycemia; E78.00 Pure hypercholesterolemia, unspecified; D64.9 Anemia, unspecified; E55.9 Vitamin D deficiency, unspecified; R30.0 Dysuria | CPT/HCPCS: 83036; 90471; 99212 ==

== ENCOUNTER 2024-01-21 21:24 | Emergency (ER) | payer OTHER, SELFPAY ==
--- NOTE | 2024-01-21 22:20 | PC.NURSE ---
Pt called for triage with no answer x 3 @ 0982
== END 2024-01-21 22:21 | disposition left against medical advice (07) ==
PROVIDERS: Emergency Provider Emergency Medicine; PCP Internal Medicine
DX: M25.571 Pain in right ankle and joints of right foot (principal)

== ENCOUNTER 2024-01-21 22:43 | Inpatient (IN) | payer OTHER, SELFPAY ==
--- NOTE | 2024-01-21 | ECG_ITS ---
Test Reason : tachycardia Blood Pressure : / mmHG Vent. Rate : 151 BPM Atrial Rate : 302 BPM P-R Int : 000 ms QRS Dur : 090 ms QT Int : 260 ms P-R-T Axes : -59 121 215 degrees QTc Int : 412 ms Atrial flutter with 2:1 A-V conduction Lateral infarct , age undetermined Abnormal ECG When compared with ECG of 13-JUN-2023 08:10, Lateral infarct present, atrial flutter present Referred By: Generic ED Physician Electronically Signed By:Dwain Joseph
--- NOTE | ~2024-01-21 | XR_ITS ---
EXAMINATION: XR CHEST CLINICAL INFORMATION: Cough. COMPARISON: Chest Radiograph 03/07/2022. TECHNIQUE: Frontal view of the chest was obtained. FINDINGS: Normal appearance of the cardiomediastinal structures. Pleura normal pattern of pulmonary vasculature. No focal pulmonary consolidation. XR/XR chest 1V IMPRESSION: No acute cardiopulmonary abnormalities. Electronically signed by: Yayo Tellez MD 01/22/2024 01:29 AM [facility]
--- NOTE | ~2024-01-21 | XR_ITS ---
EXAMINATION: XR ANKLE, RIGHT CLINICAL INFORMATION: Pain. Fall. COMPARISON: Craniocaudal radiographs 01/22/2023. TECHNIQUE: AP, lateral, and mortise views of the right ankle. FINDINGS: The talar dome is intact. A 2 mm well-corticated ossific body is present adjacent to the medial malleolus similar findings present on 01/22/2023. Soft tissue prominence is present adjacent to the lateral malleolus. Chronic enthesopathic changes are noted along the medial malleolus similar findings present on 01/22/2023. Subtalar joints are grossly normal in appearance. No ankle effusion visualized. XR/XR ankle RT min 3V IMPRESSION: *Soft tissue prominence adjacent to the lateral malleolus which may represent acute soft tissue inflammatory changes. *No acute fractures or subluxations identified. *Chronic 2 mm ossific body adjacent to the medial malleolus unchanged compared with 01/22/2023 which may represent the sequela of remote injury. Electronically signed by: Yayo Tellez MD 01/22/2024 01:28 AM [facility]
[2024-01-21 22:44] VITALS: BP 128/76; PULSE 152; RESP 18; TEMP 36.8; O2SAT 96; BMI 44.5
[2024-01-21 23:12] LABS: Appearance Urine Clear; Color Urine Yellow; Glucose Urine UA >=1000 mg/dL (Negative); Leukocyte Esterase Urine Negative (Negative); Nitrite Urine Negative (Negative); Specific Gravity - Urine >= 1.030 (1.005-1.025); UMIC TRIGGER UACC YES; Urine Blood Negative (Negative); Urine Ketones Negative (Negative); Urine Protein Negative (Neg-Trace)
[2024-01-21 23:26] LABS: Bacteria Urine None Seen (None Seen); Hyaline Casts Urine 0-2 /LPF (0-2); RBC Urine 0-2 /HPF (0-2); Squamous Epithelial Cell Urine 0-2 /HPF (0-2); WBC Urine 0-5 /HPF (0-5)
--- NOTE | 2024-01-21 23:31 | ED_ITS ---
HPI - General Adult General Chief complaint: General Medical Stated complaint: multiple complaints Time Seen by Provider: 01/21/24 23:18 Source: patient, EMS and old records reviewed Mode of arrival: EMS Limitations: no limitations History of Present Illness ED Provider: BYRON DUFFY narrative: 53 yo male with PMH of PTSD, polysubstance abuse, DM2, aflutter on eliquis, seizures, anxiety who has multiple complaints 1. R ankle bothering him and rolling for 1 month - caused him to fall yesterday 2. sore throat for one day denies fevers or travel 3. Small bump felt L inner thigh but no other GI or symptoms no testicle pain 4 Drug use states his HR is so high in 150s because he smoked a lot of THC before arrival denies cocaine abuse - denies CP/SOB MD complaint: multiple complaints Onset (ago): day(s) (1) Location: mouth, right and lower extremity Radiation: non-radiation Severity: mild Quality: dull Pain Consistency: intermittent Relieving factors: none Exacerbating factors: other (walking and swallowing) Associated symptoms: denies other symptoms Treatments prior to arrival: none Related Data Home Medications ?Medication ?Instructions ?Recorded ?Confirmed buspirone 30 mg tablet 30 mg PO BID 06/12/23 12/17/23 amlodipine 5 mg tablet 5 mg PO DAILY 06/27/23 12/17/23 escitalopram oxalate 20 mg tablet 20 mg PO DAILY 06/28/23 12/17/23 metformin 1,000 mg tablet 1,000 mg PO BID 06/28/23 12/17/23 metoprolol succinate 100 mg 100 mg PO DAILY 06/28/23 12/17/23 tablet,extended release 24 hr Previous Rx's ?Medication ?Instructions ?Recorded lisinopril 30 mg tablet 30 mg PO DAILY #90 tabs 03/19/23 doxycycline hyclate 100 mg tablet 100 mg PO BID #14 tabs 07/01/23 clotrimazole-betamethasone 1 1 appl topical BID PRN balanitis 08/24/23 %-0.05 % topical cream #45 grams blood-glucose meter,continuous #1 ea 08/27/23 (Dexcom G7 Electric Repair Supervisor) pen needle, diabetic 31 gauge x #100 ea 09/18/2305/25 (BD Ultra-Fine Mini Pen Needle) insulin glargine 100 unit/mL (3 50 unit (0.5 mL) subcut DAILY 30 10/22/23 mL) subcutaneous pen (Lantus days #15 mL Solostar U-100 Insulin) semaglutide 1 mg/dose (4 mg/3 mL) 1 mg (0.75 mL) subcut QWEEK #3 mL 10/31/23 subcutaneous pen injector (Ozempic) lidocaine 5 % topical patch 2 patch topical DAILY #30 ea 11/15/23 albuterol sulfate 90 mcg/actuation 2 puff inhalation Q4-6H PRN 11/22/23 aerosol inhaler (Ventolin HFA) wheezing and/or shortness of breath #8.5 grams ROLLATOR #1 ea 12/11/23 sodium chloride 0.65 % nasal spray 2 spray intranasal QID PRN dry 12/11/23 aerosol (Saline Nasal) nasal passages #44 mL diltiazem HCl 180 mg 180 mg PO DAILY #90 caps 12/31/23 capsule,extended release 24 hr apixaban 5 mg tablet (Eliquis) 5 mg PO BID 30 days #60 tabs 01/14/24 blood-glucose sensor (Dexcom G7 #3 ea 01/14/24 Sensor device) tramadol 50 mg tablet 50 mg PO TID PRN pain 30 days #90 01/14/24 tabs zolpidem 10 mg tablet 10 mg PO BEDTIME PRN insomnia #30 01/14/24 tabs Allergies Allergy/AdvReac Type Severity Reaction Status Date / Time Penicillins [PENICILLINS] Allergy Unknown RASH Verified 01/21/24 22:49 Review of Systems 2 Review of Systems: Constitutional : No Fever, No Chills ENT/Mouth : No Ear Pain, No Hoarseness, pos sore throat Eyes: No Eye Pain, No Swelling, No Redness, No Foreign Body Cardiovascular : No Chest Pain, No SOB Respiratory : No Cough, No Dyspnea Gastrointestinal : No Nausea, No Vomiting, No Diarrhea, No abdominal Pain Genitourinary : No Dysuria, No Hematuria Musculoskeletal : positive joint pain, No Myalgias, No Joint Swelling Skin : No Skin lacerations, No rash Neuro : No Weakness, No Numbness, No Loss of Consciousness, No Dizziness, No Headache Psych : No Anxiety/Panic, No Depression Heme/Lymph: no easy bruising, no Lymphadenopathy Endocrine : No Polyuria, No Polydipsia All other systems reviewed and are negative [facility] Past Medical History Attestation statement: The following information was validated with the patient. Source: old records reviewed Medical History Type 2 diabetes mellitus with hyperglycemia Paroxysmal atrial fibrillation Morbid obesity Substance abuse Essential hypertension Cocaine abuse Erectile dysfunction Polysubstance abuse Paroxysmal atrial fibrillation with rapid ventricular response Lumbar degenerative disc disease Substance abuse Diabetes Depression Overactive bladder Arthritis BPH (benign prostatic hyperplasia) Asthma Seizure Morbid obesity with BMI of 40.0-44.9, adult Benign essential hypertension Insomnia Primary osteoarthritis of both knees Anxiety Family history of thyroid disorder Surgical History No history of previous surgery Family History Family History Father ETOH abuse Mother Diabetes Arthritis of knee Hypertension Other Mental health problem Substance abuse Social History Social History Household Members: None Household Members Other:: 2 Housing: Apartment Housing Other:: rents a room Do you presently have visiting nurse or other home services: No Alcohol intake: current Alcohol intake frequency: holidays/special occasions only Comment: refused bed alarm Patient Tobacco Use Status: Never used Tobacco Smoked in Last 30 Days: No e-Cigarette/Vaping Use: Never Used Second Hand Smoke Exposure: No Use of substances other than those prescribed or required for medical reasons: Yes Substance Use Type: Marijuana Substance Use Frequency: Daily Advance Directives: Yes Advance Directives on File: Yes Advance Directives Date on File: 02/23/22 Do you have a plan to hurt others: No Plan service: No Current occupational status: unemployed and disabled Sexual orientation: Straight/Heterosexual Cognitive needs: No Hearing needs: No Vision needs: No Physical Exam ED Vital Signs: Vital Signs - 24 hr 01/21/24 22:44 01/22/24 00:04 01/22/24 00:06 Temperature 98.2 F Pulse Rate 152 H 154 H 154 H Respiratory Rate 18 18 Blood Pressure 128/76 129/73 Pulse Oximetry 96 97 Oxygen Delivery Method Room Air 01/22/24 00:21 01/22/24 00:42 Temperature Pulse Rate 142 H 140 H Respiratory Rate Blood Pressure 121/75 Pulse Oximetry Oxygen Delivery Method BMI result Body Mass Index 44.5 Appearance: Alert. Oriented X3. No acute distress. Eyes: Pupils equal, round and reactive to light. ENT: Pharynx red with mild tonsilar swelling no exudates noted Neck: Normal inspection. Neck supple. CVS: tachycardic heart rate and rhythm. Pulses normal. Respiratory: No respiratory distress. Breath sounds normal. Abdomen: Soft and non-tender. : L inner thigh small less than 1cm ahrd lump felt but no fluctuance, ttp, redness, drainage there is no extension to scrotum or perineal area, no crepitus noted it appears old Skin: Skin warm and dry. Normal skin color. Normal skin turgor. Extremities: No lower extremity edema. dark hyperpigmented skin changes both shins but no signs of cellulitis Neuro: Oriented X 3. No motor deficit. No sensory deficit. Course Course Course Narrative: repeat IV dilt x 1 on IV dilt gtt not in DKA Medications Administered Generic Name Dose Route Start Last Admin Trade Name Freq PRN Reason Stop Dose Admin Diltiazem HCl 125 mg/ Sodium 125 mls @ 0 mls/hr 01/22/24 00:30 01/22/24 00:42 Chloride IVCONT 10 mg/hr .Q0M SCOTTY 10 mls/hr Administration Protocol Per Protocol Discontinued Medications Generic Name Dose Route Start Last Admin Trade Name Freq PRN Reason Stop Dose Admin Acetaminophen 650 mg 01/21/24 23:29 01/22/24 00:06 Acetaminophen 325 Mg Tablet PO 01/21/24 23:30 650 mg ONCE ONE Administration Diltiazem HCl 10 mg 01/21/24 23:40 01/22/24 00:04 Diltiazem Hcl 50 Mg/10 Ml Vial IVPUSH 01/21/24 23:41 10 mg STAT STA Administration Diltiazem HCl 10 mg 01/22/24 00:15 01/22/24 00:21 Diltiazem Hcl 50 Mg/10 Ml Vial IVPUSH 01/22/24 00:16 10 mg STAT STA Administration Insulin Human Regular 10 unit 01/22/24 00:15 01/22/24 00:40 Insulin Regular, Human 100 Unit/Ml 10 Ml Vial IVPUSH 01/22/24 00:16 10 unit ONCE ONE Administration Medical Decision Making Medical Decision Making MDM Narrative: 53 yo male with PMH of PTSD, polysubstance abuse, DM2, aflutter on eliquis, seizures, anxiety here with c/o R ankle giving out x 1 month. He has no signs of infection. He also has tachycardia and is positive for cocaine denies CP/SOB suspect aflutter in setting of drug use - he states he takes his medications, IV dilt ordered, he also c/o sore throat - viral panel and strep swabs ordered. Lump in L thigh area does not appear infected or consistent with abscess - no concern for fourniers. He admits to drinking juice and eating sugar SWIMMER expect hyperglycemia Differential Diagnosis Differential Diagnoses: The differential diagnosis associated with the presentation includes strep throat, drug use, aflutter, ankle strain Admission/Observation Consideration of admission/observation: Escalation of care including admission/observation considered admit given aflutter and dilt gtt Consult Healthcare Provider Management of the patient was discussed with: Hospitalist (will admit) Lab Data MDM Lab Attestation statement: I reviewed the patient's lab results. 01/21/24 23:46 01/21/24 23:46 Labs: Lab Results 01/21/24 01/21/24 Range/Units 23:05 23:46 WBC 8.7 (4.8-10.8) X10*3/uL RBC 4.47 L (4.60-5.80) X10*6/uL Hgb 13.6 L (14.0-18.0) g/dl Hct 39.1 L (42.0-52.0) % MCV 87.5 (80.0-98.0) fL MCH 30.4 (27.0-33.0) pg MCHC 34.8 (31.0-36.0) g/dl RDW 12.0 (11.0-16.0) % Plt Count 251 (160-400) X10*3/uL MPV 10.3 (9.4-12.4) fL Immature Gran % (Auto) 0.6 H (0.0-0.4) % Neut % (Auto) 71.2 (45-73) % Lymph % (Auto) 21.5 (20-40) % [place] % (Auto) 5.5 (2-11) % Eos % (Auto) 0.9 (0-4) % Baso % (Auto) 0.3 (0-2) % Lymph # (Auto) 1.9 (1.2-4.9) X10*3/uL [place] # (Auto) 0.5 (0.1-1.2) X10*3/uL Eos # (Auto) 0.1 (0.0-0.4) X10*3/uL Baso # (Auto) 0.0 (0.0-0.2) X10*3/uL Abs Immat Gran (auto) 0.05 H (0.00-0.03) X10*3/uL Absolute Neuts (auto) 6.2 (2.0-8.3) x10*3/uL Absolute Nucleated RBC 0.000 (0.0-0.012) X10*3/uL Nucleated RBC % (auto) 0.0 (0.0-0.2) /100WBC Sodium 131 L (135-145) mmol/L Potassium 4.6 (3.3-5.1) mmol/L Chloride 96 (96-108) mmol/L Carbon Dioxide 23 (22-29) mmol/L Anion Gap 17 (12-20) BUN 24 H (9-16) mg/dL Creatinine 1.39 (0.5-1.4) mg/dL Estim Creat Clear Calc 88.9 Estimated GFR 54 Random Glucose 729 H* (60-115) mg/dL Calcium 9.3 (8.4-10.2) mg/dL Total Bilirubin 0.2 (0.0-1.0) mg/dL AST 37 (5-37) U/L ALT 86 H (0-40) U/L Alkaline Phosphatase 126 H (39-117) U/L Troponin I High Sens 11.0 D (<3.5-35.0) ng/L B-Natriuretic Peptide 11 (<100) pg/mL Total Protein 6.8 (6.5-8.0) g/dL Albumin 3.7 (3.5-5.0) g/dL Urine Color Yellow Urine Appearance Clear Urine pH 6.0 (5.0-9.0) Ur Specific [place] >= 1.030 H (1.005-1.025) Urine Protein Negative (Neg-Trace) mg/dL Urine Glucose (UA) >=1000 H (Negative) mg/dL Urine Ketones Negative (Negative) mg/dL Urine Blood Negative (Negative) Urine Nitrite Negative (Negative) Ur Leukocyte Esterase Negative (Negative) Urine RBC 0-2 (0-2) /HPF Urine WBC 0-5 (0-5) /HPF Ur Squamous Epith Cells 0-2 (0-2) /HPF Urine Bacteria None Seen (None Seen) Hyaline Casts 0-2 (0-2) /LPF Urine Opiates Screen POSITIVE H (Not Detect) Ur Buprenorphine Scrn Not Detected (Not Detect) ng/mL Ur Oxycodone Screen Not Detected (Not Detect) ng/mL Urine Methadone Screen Not Detected (Not Detect) ng/mL Urine Fentanyl Screen POSITIVE H (Not Detect) Ur Barbiturates Screen Not Detected (Not Detect) Ur Phencyclidine Scrn Not Detected (Not Detect) Ur Amphetamines Screen Not Detected (Not Detect) U Benzodiazepines Scrn Not Detected (Not Detect) Urine Cocaine Screen POSITIVE H (Not Detect) U Marijuana (THC) Screen POSITIVE H (Not Detect) Influenza Type A (PCR) NEGATIVE (Negative) Influenza Type B (PCR) NEGATIVE (Negative) RSV RNA Qual (PCR) NEGATIVE (Negative) SARS-CoV-2 RNA (RT-PCR) NEGATIVE (Negative) S. pyogenes GrpA [place] Negative (Negative) Independent Interpretation I performed an independent interpretation of an: EKG and Plain X-Ray (no ankle fracture) Interpretation: Rate: 151 Rhythm: aflutter 2:1 [place]: normal Normal QRS complex. ST T wave : no POP, artifact noted qTC: 412 prior studies: in aflutter The study has been interpreted contemporaneously by me. . Radiology Impression Discussion of test interpretation with radiology: I have reviewed the radiologist's reading. Independent Historian Clinical information obtained from an independent historian. History obtained from or confirmed by: EMS External Record Review External record reviewed: Inpatient record and Outpatient record Critical Care Time Critical Care Time Critical Care Time: Yes Total Critical Care Time: 45 Attestation: review of records, repeat IV dilt, dilt gtt I attest to this time spent taking care of the patient Discharge Plan Discharge Clinical Impression: Polysubstance abuse, Atrial flutter, Acute hyperglycemia Patient Disposition: Admitted As Inpatient Prescriptions: No Action (DME) Dexcom G7 Electric Repair Supervisor Misc See Rx Instructions .Route Qty: 1 0RF Rx Instructions: As directed (DME) pen needle, diabetic [BD Ultra-Fine Mini Pen Needle] 31 gauge x 3/16 needle See Rx Instructions .ROUTE .COMPLEX Qty: 100 3RF Dose Instruction: USE DIRECTED ONCE DAILY Rx Instructions: USE DIRECTED ONCE DAILY insulin glargine [Lantus Solostar U-100 Insulin] 100 unit/mL (3 mL) insulin pen 50 unit subcut DAILY 30 Days Qty: 15 1RF Ozempic 1 mg/dose (4 mg/3 mL) pen injector 1 mg subcut QWEEK Qty: 3 4RF lidocaine 5 % adhesive patch,medicated 2 patch topical DAILY Qty: 30 1RF albuterol sulfate [Ventolin HFA] 90 mcg/actuation HFA aerosol inhaler 2 puff inhalation Q4-6H PRN (Reason: wheezing and/or shortness of breath) Qty: 8.5 2RF diltiazem HCl 180 mg capsule,extended release 24hr 180 mg PO DAILY Qty: 90 1RF Eliquis 5 mg tablet 5 mg PO BID 30 Days Qty: 60 2RF Rx Instructions: x30 dats (DME) [employer] G7 Sensor Device See Rx Instructions .Route Qty: 3 4RF Rx Instructions: As directed change every 10 days zolpidem 10 mg tablet 10 mg PO BEDTIME PRN (Reason: insomnia) Qty: 30 1RF tramadol 50 mg tablet 50 mg PO TID PRN (Reason: pain) 30 Days Qty: 90 0RF buspirone 30 mg tablet 30 mg PO BID amlodipine 5 mg tablet 5 mg PO DAILY escitalopram oxalate 20 mg tablet 20 mg PO DAILY metformin 1,000 mg tablet 1,000 mg PO BID metoprolol succinate 100 mg tablet extended release 24 hr 100 mg PO DAILY doxycycline hyclate 100 mg tablet 100 mg PO BID Qty: 14 0RF lisinopril 30 mg tablet 30 mg PO DAILY Qty: 90 1RF clotrimazole-betamethasone 1-0.05 % cream 1 appl topical BID PRN (Reason: balanitis) Qty: 45 2RF Rx Instructions: apply to affected area bid for 7 days then bid (DME) ROLLATOR See Rx Instructions .Route .MEDSUPPLY Qty: 1 0RF Rx Instructions: As directed Saline Nasal 0.65 % aerosol,spray 2 spray intranasal QID PRN (Reason: dry nasal passages) Qty: 44 5RF Print Language: Khmer
[2024-01-21 23:36] LABS: Amphetamine Screen Urine Not Detected (Not Detect); Barbiturates, Urine Not Detected (Not Detect); Benzodiazepines Screen Urine Not Detected (Not Detect); Buprenorphine Scr Not Detected (Not Detect); Cannabinoid Screen Urine POSITIVE (Not Detect); Cocaine Screen Urine POSITIVE (Not Detect); Fentanyl, urine POSITIVE (Not Detect); Methadone Screen, Urine Not Detected (Not Detect); Opiate Screen Urine POSITIVE (Not Detect); Oxycodone Screen Urine Not Detected (Not Detect); Phencyclidine Screen Urine Not Detected (Not Detect)
[2024-01-21 23:53] LABS: Basophils Percent Auto 0.3 % (0-2); Eosinophils Absolute Auto 0.1 X10*3/uL (0.0-0.4); Eosinophils Percent Auto 0.9 % (0-4); Hematocrit 39.1 % (42.0-52.0); Hemoglobin 13.6 g/dl (14.0-18.0); Imm Gran Abs Auto 0.05 X10*3/uL (0.00-0.03); Imm Gran Pct Auto 0.6 % (0.0-0.4); Lymphocytes Absolute Auto 1.9 X10*3/uL (1.2-4.9); Lymphocytes Percent Auto 21.5 % (20-40); MANUAL DIFF FLAG NO; Mean Corpuscular HGB Conc 34.8 g/dl (31.0-36.0); Mean Corpuscular Hemoglobin 30.4 pg (27.0-33.0); Mean Corpuscular Volume 87.5 fL (80.0-98.0); Mean Platelet Volume 10.3 fL (9.4-12.4); Monocytes Absolute Auto 0.5 X10*3/uL (0.1-1.2); Monocytes Percent Auto 5.5 % (2-11); Neutrophils Absolute Auto 6.2 x10*3/uL (2.0-8.3); Neutrophils Percent Auto 71.2 % (45-73); Platelet Count 251 X10*3/uL (160-400); Red Blood Count 4.47 X10*6/uL (4.60-5.80); White Blood Count 8.7 X10*3/uL (4.8-10.8)
[2024-01-22] VITALS (11 sets, daily range): BP systolic 113–155; BP diastolic 52–93; PULSE 94–154; RESP 12–24; TEMP 36.5–36.8; O2SAT 96–99; BMI 44.5
[2024-01-22] MEDS: dilTIAZem HCL 50 MG/10 ML VIAL 10 MG IVPUSH ×2 (00:04→00:21)
[2024-01-22] MEDS: Acetaminophen 325 MG TABLET 650 MG PO (00:06)
[2024-01-22 00:10] LABS: IDNOW Serial# 08D9AD1C; Strep A Nucleic Acid Negative (Negative)
--- NOTE | 2024-01-22 00:10 | PC.NURSE ---
20 G IV line established in R AC, patient medicated per MAY. Patient denies chest pain/SOB at present. Cardiac monitoring per MD order, hr 419-152, sinus tachy. Call casas within patient's reach, plan of care ongoing.
[2024-01-22 00:16] LABS: Alanine Aminotransferase 86 U/L (0-40); Albumin Level 3.7 g/dL (3.5-5.0); Alkaline Phosphatase 126 U/L (39-117); Anion Gap 17 (12-20); Aspartate Amino Transferase 37 U/L (5-37); Bilirubin Total 0.2 mg/dL (0.0-1.0); Blood Urea Nitrogen 24 mg/dL (9-16); Calcium 9.3 mg/dL (8.4-10.2); Carbon Dioxide 23 mmol/L (22-29); Chloride 96 mmol/L (96-108); Creatinine Clr Calc Pharmacy 88.9; Estimated Glomerular Filt Rate 54; Glucose Random 729 mg/dL (60-115); Potassium 4.6 mmol/L (3.3-5.1); Sodium 131 mmol/L (135-145); Total Protein 6.8 g/dL (6.5-8.0)
[2024-01-22 00:21] LABS: B Type Natriuretic Peptide 11 pg/mL (<100)
[2024-01-22 00:39] LABS: Influenza A PCR NEGATIVE (Negative); Influenza B PCR NEGATIVE (Negative); Resp Syncy Virus RNA Qual PCR NEGATIVE (Negative); SARS COV2 PCR INHOUSE NEGATIVE (Negative)
[2024-01-22] MEDS: Insulin Regular, Human 100 UNIT/ML 10 ML VIAL 10 UNIT IVPUSH (00:40)
[2024-01-22] MEDS: dilTIAZem HCL 125 MG in 0.9 % Sodium Chloride 100 ML 10 MG IVCONT ×2 (00:42→11:42)
--- NOTE | 2024-01-22 00:55 | P.HPHOSP_ITS ---
History of Present Illness Date of Service: 01/22/24 Chief Complaint: Feeling unwell This is a 53-year-old male with pertinent history of polysubstance use disorder, insulin-dependent diabetes mellitus, paroxysmal atrial fibrillation on Eliquis, bipolar disorder, hypertension who presents to the emergency department for evaluation of feeling unwell. Patient has multiple complaints at the time of presentation. States he has bilateral ankle discomfort and had a fall due to the same. Unclear if ankle pain started before or after the fall. Also has been having sore throat that started 2 days prior to presentation. Patient admits that he has not been taking his medications and admits to using drugs prior to ER visit. Denies fever, chills, palpitations, chest pain, shortness of breath, abdominal pain, changes in urinary or bowel habits. In the emergency department, patient was found to be in a flutter with RVR and initiated on IV diltiazem drip. Also blood sugar found to be in the 700s and given IV insulin. Review of Systems 2 Constitutional: Constitutional: Reports fatigue and Reports malaise Cardiovascular: Cardiovascular: Reports no additional cardiovascular complaints Respiratory: Respiratory: Reports no additional respiratory complaints Gastrointestinal: Gastrointestinal: Reports no additional gastrointestinal complaints Genitourinary: Genitourinary: Reports no additional male genitourinary complaints Endocrine: Endocrine: Reports fatigue PMFSH Medical History Type 2 diabetes mellitus with hyperglycemia Paroxysmal atrial fibrillation Morbid obesity Substance abuse Essential hypertension Cocaine abuse Erectile dysfunction Polysubstance abuse Paroxysmal atrial fibrillation with rapid ventricular response Lumbar degenerative disc disease Substance abuse Diabetes Depression Overactive bladder Arthritis BPH (benign prostatic hyperplasia) Asthma Seizure Morbid obesity with BMI of 40.0-44.9, adult Benign essential hypertension Insomnia Primary osteoarthritis of both knees Anxiety Family history of thyroid disorder Family History Father ETOH abuse Mother Diabetes Arthritis of knee Hypertension Other Mental health problem Substance abuse Surgical History No history of previous surgery Social History Household Members: None Household Members Other:: 2 Housing: Apartment Housing Other:: rents a room Do you presently have visiting nurse or other home services: No Alcohol intake: current Alcohol intake frequency: holidays/special occasions only Comment: refused bed alarm Patient Tobacco Use Status: Never used Tobacco Smoked in Last 30 Days: No e-Cigarette/Vaping Use: Never Used Second Hand Smoke Exposure: No Use of substances other than those prescribed or required for medical reasons: Yes Substance Use Type: Marijuana Substance Use Frequency: Daily Advance Directives: Yes Advance Directives on File: Yes Advance Directives Date on File: 02/23/22 Do you have a plan to hurt others: No Plan service: No Current occupational status: unemployed and disabled Sexual orientation: Straight/Heterosexual Cognitive needs: No Hearing needs: No Vision needs: No Meds Allergies Allergy/AdvReac Type Severity Reaction Status Date / Time Penicillins [PENICILLINS] Allergy Unknown RASH Verified 01/21/24 22:49 Active Medications: Current Medications Glucose (Glucose Gel 15 Gm Gel..Gram.) 15 gm PO Q15M PRN; Protocol PRN Reason: per Hypoglycemia Standing Ord. Diltiazem HCl 125 mg/ Sodium (Chloride) 125 mls @ 0 mls/hr IVCONT .Q0M [facility], [facility]; Protocol Last Admin: 01/22/24 00:42 Dose: 10 mg/hr, 10 mls/hr Dextrose (D10) 250 mls @ 750 mls/hr IV Q15M PRN; Protocol PRN Reason: per Hypoglycemia Standing Ord. Insulin Glargine (Insulin Glargine,Hum.Rec.Anlog 100 Unit/Ml 10 Ml Vial) 28 unit SUBCUT ONCE ONE Stop: 01/22/24 00:48 Insulin Human Lispro (Insulin Lispro 100 Unit/Ml 3 Ml Vial) 0 unit SUBCUT Q4H [facility]; Protocol Home Medications ?Medication ?Instructions ?Recorded ?Confirmed ?Last Taken ?Type buspirone 30 mg tablet 30 mg PO BID 06/12/23 12/17/23 Unknown History amlodipine 5 mg tablet 5 mg PO DAILY 06/27/23 12/17/23 Unknown History escitalopram oxalate 20 mg tablet 20 mg PO DAILY 06/28/23 12/17/23 Unknown History metformin 1,000 mg tablet 1,000 mg PO BID 06/28/23 12/17/23 Unknown History metoprolol succinate 100 mg 100 mg PO DAILY 06/28/23 12/17/23 Unknown History tablet,extended release 24 hr Physical Exam 2 Vital Signs and Narrative: Vital Signs: Last Vital Signs Temp 98.2 F 01/21/24 22:44 Pulse 140 H 01/22/24 00:42 Resp 18 01/22/24 00:06 BP 121/75 01/22/24 00:42 Pulse Ox 97 01/22/24 00:06 O2 Del Method Room Air 01/21/24 22:44 BMI result Body Mass Index 44.5 Middle-aged male lying in bed in no distress Neck supple, no JVD Regular rate and rhythm, S1-S2 heard Regular breath sounds bilaterally, no wheezing or crackles appreciated Abdomen soft nontender, no guarding, no rigidity Patient is awake, alert and oriented to self, place, time and person ; no focal motor deficit Psych: Normal mood No pedal edema, no ankle tenderness Results Labs 01/21/24 23:46 01/21/24 23:46 Labs: Laboratory Results - last 24 hr 01/21/24 01/21/24 23:05 23:46 MCV 87.5 MCH 30.4 MCHC 34.8 RDW 12.0 Plt Count 251 MPV 10.3 Immature Gran % (Auto) 0.6 H Neut % (Auto) 71.2 Lymph % (Auto) 21.5 [place] % (Auto) 5.5 Eos % (Auto) 0.9 Baso % (Auto) 0.3 Lymph # (Auto) 1.9 [place] # (Auto) 0.5 Eos # (Auto) 0.1 Baso # (Auto) 0.0 Abs Immat Gran (auto) 0.05 H Absolute Neuts (auto) 6.2 Absolute Nucleated RBC 0.000 Nucleated RBC % (auto) 0.0 Anion Gap 17 Estim Creat Clear Calc 88.9 Estimated GFR 54 Random Glucose 729 H* Calcium 9.3 Total Bilirubin 0.2 AST 37 ALT 86 H Alkaline Phosphatase 126 H Troponin I High Sens 11.0 D B-Natriuretic Peptide 11 Total Protein 6.8 Albumin 3.7 Urine Color Yellow Urine Appearance Clear Urine pH 6.0 Ur Specific [place] >= 1.030 H Urine Protein Negative Urine Glucose (UA) >=1000 H Urine Ketones Negative Urine Blood Negative Urine Nitrite Negative Ur Leukocyte Esterase Negative Urine RBC 0-2 Urine WBC 0-5 Ur Squamous Epith Cells 0-2 Urine Bacteria None Seen Hyaline Casts 0-2 Urine Opiates Screen POSITIVE H Ur Buprenorphine Scrn Not Detected Ur Oxycodone Screen Not Detected Urine Methadone Screen Not Detected Urine Fentanyl Screen POSITIVE H Ur Barbiturates Screen Not Detected Ur Phencyclidine Scrn Not Detected Ur Amphetamines Screen Not Detected U Benzodiazepines Scrn Not Detected Urine Cocaine Screen POSITIVE H U Marijuana (THC) Screen POSITIVE H Influenza Type A (PCR) NEGATIVE Influenza Type B (PCR) NEGATIVE RSV RNA Qual (PCR) NEGATIVE SARS-CoV-2 RNA (RT-PCR) NEGATIVE S. pyogenes GrpA [place] Negative Assessment and Plan (1) Atrial flutter with rapid ventricular response: Status: Acute (2) Acute hyperglycemia: Status: Acute Plan This is a 53-year-old male with pertinent history of polysubstance use disorder, insulin-dependent diabetes mellitus, paroxysmal atrial fibrillation on Eliquis, bipolar disorder, hypertension who presents to the emergency department for evaluation of feeling unwell. #. Atrial flutter with RVR: Likely in the setting of polysubstance drug use and medication noncompliance. Will admit patient with cardiac monitoring. Initiated on IV diltiazem drip in the ER. Will resume home Eliquis and home rate-controlling agents #. Uncontrolled Insulin-dependent diabetes mellitus with hyperglycemia: Due to medication noncompliance. Initiated basal plus insulin regimen #. Pharyngitis, viral: Group a strep negative. Supportive treatment #. Bilateral ankle discomfort: Ankle imaging pending #. Obesity: Counseled regarding diet and exercise #. Hypertension: Continue home antihypertensives #. Mood disorder: Continue home mood stabilizers #. Polysubstance use disorder: UDS positive for cocaine, fentanyl, opiates and marijuana. Consulted Addiction Team Med rec pending DVT prophylaxis: Tamia Full code Admit as inpatient and will require two night minimum hospital stay for monitoring of heart rate, blood glucose (as above), which is not possible in a lesser acute setting. Specialist consult pending Quality Stroke Does the patient have a stroke diagnosis?: No VTE Prior VTE?: No VTE Risk Level:: Medical - moderate - high VTE Device Contraindication: Treatment Not Indicated VTE Drug Contraindication: N/A - Med Ordered
[2024-01-22] MEDS: Insulin Glargine,Hum.rec.anlog 100 UNIT/ML 10 ML VIAL 28 UNIT SUBCUT (02:04)
[2024-01-22] MEDS: Insulin Lispro 100 UNIT/ML 3 ML VIAL SUBCUT ×6 (02:05→20:14)
[2024-01-22] MEDS: Lactated Ringers 1,000 ML 999 ML IV (02:25)
--- NOTE | 2024-01-22 02:56 | PC.NURSE ---
Dr Burger notified of hr running 120-138 on Cardiazem drip at 15 mg/hr, no new orders at this time.
[2024-01-22 04:57] LABS: Hematocrit 38.1 % (42.0-52.0); Mean Corpuscular HGB Conc 34.1 g/dl (31.0-36.0); Mean Corpuscular Hemoglobin 29.9 pg (27.0-33.0); Mean Corpuscular Volume 87.6 fL (80.0-98.0); Mean Platelet Volume 10.2 fL (9.4-12.4); Platelet Count 239 X10*3/uL (160-400); Red Blood Count 4.35 X10*6/uL (4.60-5.80); Red Cell Distribution Width 11.9 % (11.0-16.0); White Blood Count 9.5 X10*3/uL (4.8-10.8)
[2024-01-22 05:00] LABS: Glucose, Whole Blood 281 mg/dL (60-115)
--- NOTE | 2024-01-22 05:10 | PC.NURSE ---
HR 99-110, diltiazem drip titrated to 10 mg/hr.
[2024-01-22 05:16] LABS: Anion Gap 13 (12-20); Blood Urea Nitrogen 23 mg/dL (9-16); Calcium 9.4 mg/dL (8.4-10.2); Carbon Dioxide 26 mmol/L (22-29); Chloride 100 mmol/L (96-108); Creatinine Clr Calc Pharmacy 131.5; Estimated Glomerular Filt Rate > 60; Glucose Random 298 mg/dL (60-115); Potassium 3.5 mmol/L (3.3-5.1); Sodium 135 mmol/L (135-145)
[2024-01-22 05:55] LABS: Glucose, Whole Blood 282 mg/dL (60-115)
[2024-01-22 07:22] LABS: Hemoglobin A1C 579.5865 umol/L; Hemoglobin A1c % > 14.0 % (<6.0); Total Hemoglobin (HGBA1C) 3485.0424 umol/L
[2024-01-22 07:42] LABS: Glucose, Whole Blood 271 mg/dL (60-115)
[2024-01-22] MEDS: Apixaban 5 MG TABLET PO ×2 (07:59→19:38)
[2024-01-22] MEDS: 0.9 % Sodium Chloride Flush 3 ML SYRINGE IVFLUSH ×3 (08:00→19:38)
--- NOTE | 2024-01-22 09:29 | PHA.MEDREC ---
Addendum entered by Daksha Meredith RPh 01/22/24 09:40: Reviewed by [facility] Original Note: Pharmacy Consult ? Medication Reconciliation Pharmacy has completed the medication reconciliation. Spoke to patient to confirm med list. patient states he is no longer on Diltiazem 180 mg. patient confirmed Lantus is 50 units daily, claim history has 30 units at bedtime. Ozempic 1 mg is every Sunday, last dose 01/21/24.
--- NOTE | 2024-01-22 10:30 | PC.NURSE ---
MD New contacted, pt rate controlled on diltiazem at 10mg/hr but does not have any oral rate control meds orders. Stated she will be down to see patient.
--- NOTE | 2024-01-22 11:29 | MHC.RECOVRN ---
Met with pt in ED7 after Addiction Medicine consult received for polysubstance use. Pt had presented to the ED for multiple complaints including abscess between L leg/testicle, pain in R jaw (had extraction in Apr), throat sore, abdominal pain, R ankle pain, and heart rate in the 150s. Upon evaluation, pt admitted for atrial flutter with RVR. Pt sitting in bed, awake, alert, easily engages in conversation. Pt reports heroin/fentanyl use, IN, 3-4x weekly, 10 bags each day. Pt reports cocaine use once in awhile, denies recent use, believes it was in the heroin/fentanyl he had used. Pt reports he has been using in this pattern for years, will sometimes go three days in between opioid use. Pt reports he feels withdrawal sometimes. Denies withdrawal symptoms currently. States I don't use like that so it doesn't really happen to me. Pt reports history of 2 overdoses. Reports mom is currently in the hospital in [place]. Pt reports his mom is a source of support. Reports recent relationship break up. Discussed recovery resources and supports, pt is interested in [facility]. Has never been but would like to see what they're all about. Discussed some of the things [facility] offers. Pt is not interested in [facility]. Reports hx Suboxone, dislikes the taste. Pt encouraged to notify RN if withdrawal symptoms emerge. Denies questions or concerns at this time. Discussed with Fang Iraheta APRN.
[2024-01-22] MEDS: Metoprolol Succinate ER 100 MG TAB.ER.24H PO (11:38)
--- NOTE | 2024-01-22 11:55 | MHC.CM.PN ---
Pt. lives in a rented room, HCP on file and confirmed: Theodora PCP confirmed: Julio Youngblood. For DME, pt has a cane and is getting a walker. DCP is home, self care. Pt. will need assistance with transport home. CM to follow for DC needs.
[2024-01-22 12:41] LABS: Glucose, Whole Blood 356 mg/dL (60-115)
--- NOTE | 2024-01-22 12:43 | PC.NURSE ---
Patient's POC 356, due for 10 units per sliding scale. Dr. New made aware, okay'd 10 units no additional ordered.
--- NOTE | 2024-01-22 13:13 | PM.CNCAR ---
History of Present Illness History of Present Illness Date of Service: 01/22/24 Requesting physician: Levar New Chief complaint: Atrial flutter Narrative: [age] year gentleman with past medical history significant for diabetes, polysubstance abuse and history of atrial fibrillation for which he has been on Eliquis. He is presenting with right foot pain and was noticed to be in atrial flutter. Heart rates are little difficult to control and he is currently on metoprolol succinate 100 mg daily and apparently was on Cardizem drip also. He is denying any significant symptoms otherwise. No chest pain or shortness of breath. He is noncompliant with medicines and has not been taking Eliquis in the last week and missed some doses. [facility] Past Medical History Medical History Type 2 diabetes mellitus with hyperglycemia Paroxysmal atrial fibrillation Morbid obesity Substance abuse Essential hypertension Cocaine abuse Erectile dysfunction Polysubstance abuse Paroxysmal atrial fibrillation with rapid ventricular response Lumbar degenerative disc disease Substance abuse Diabetes Depression Overactive bladder Arthritis BPH (benign prostatic hyperplasia) Asthma Seizure Morbid obesity with BMI of 40.0-44.9, adult Benign essential hypertension Insomnia Primary osteoarthritis of both knees Anxiety Family history of thyroid disorder Family History Family History Father ETOH abuse Mother Diabetes Arthritis of knee Hypertension Other Mental health problem Substance abuse Surgical History Surgical History No history of previous surgery Social History Social History Household Members: None Household Members Other:: 2 Housing: Apartment Housing Other:: rents a room Do you presently have visiting nurse or other home services: No Alcohol intake: current Alcohol intake frequency: holidays/special occasions only Comment: refused bed alarm Patient Tobacco Use Status: Never used Tobacco Smoked in Last 30 Days: No e-Cigarette/Vaping Use: Never Used Second Hand Smoke Exposure: No Use of substances other than those prescribed or required for medical reasons: Yes Substance Use Type: Marijuana Substance Use Frequency: Daily Advance Directives: Yes Advance Directives on File: Yes Advance Directives Date on File: 02/23/22 Do you have a plan to hurt others: No Plan Nutrition Risks: No Nutritional Risk service: No Current occupational status: unemployed and disabled Sexual orientation: Straight/Heterosexual Cognitive needs: No Hearing needs: No Vision needs: No Meds Allergies Allergy/AdvReac Type Severity Reaction Status Date / Time Penicillins [PENICILLINS] Allergy Unknown RASH Verified 01/21/24 22:49 Active Medications: Current Medications Acetaminophen (Acetaminophen 325 Mg Tablet) 650 mg PO Q6H PRN PRN Reason: Pain, Mild (Pain Scale 1-3), fever or headache Albuterol Sulfate (Albuterol Sulfate 90 Mcg 8 Gm Inhaler) 2 puff INHALE Q4H PRN PRN Reason: wheezing and/or shortness of breath Apixaban (Apixaban 5 Mg Tablet) 5 mg PO BID [facility] Last Admin: 01/22/24 07:59 Dose: 5 mg Benzocaine (Throat Lozenge, Medicated Lozenge) 1 lozenge MUCOUS MEM Q2H PRN PRN Reason: Sore Throat Buspirone HCl (Buspirone Hcl 10 Mg Tablet) 30 mg PO BID [facility] Calcium Carbonate (Calcium Carbonate 750 Mg Tab.Chew) 750 mg PO Q4H PRN PRN Reason: Heartburn Clotrimazole (Clotrimazole 1 % Cream 15 Gm Tube) 1 appl TOPICAL BID PRN PRN Reason: balanitis Escitalopram Oxalate (Escitalopram Oxalate 20 Mg Tablet) 20 mg PO DAILY [facility] Glucose (Glucose Gel 15 Gm Gel..Gram.) 15 gm PO Q15M PRN; Protocol PRN Reason: per Hypoglycemia Standing Ord. Dextrose (D10) 250 mls @ 750 mls/hr IV Q15M PRN; Protocol PRN Reason: per Hypoglycemia Standing Ord. Insulin Glargine (Insulin Glargine,Hum.Rec.Anlog 100 Unit/Ml 10 Ml Vial) 50 unit SUBCUT DAILY [facility] Insulin Human Lispro (Insulin Lispro 100 Unit/Ml 3 Ml Vial) 0 unit SUBCUT Q4H [facility]; Protocol Last Admin: 01/22/24 12:43 Dose: 10 unit Magnesium Hydroxide (Milk Of Magnesia 30 Ml Oral.Susp) 30 ml PO DAILY PRN PRN Reason: Constipation Melatonin (Melatonin 3 Mg Tablet) 6 mg PO BEDTIME PRN PRN Reason: Insomnia Metoprolol Succinate (Metoprolol Succinate Er 100 Mg Tab.Er.24h) 100 mg PO DAILY [facility]; Protocol Last Admin: 01/22/24 11:38 Dose: 100 mg Multi-Ingred Medicated Throat Jackson (Throat [place], Medicated 177 Ml Bottle) 1 spray MUCOUS MEM Q2H PRN PRN Reason: Sore Throat Mupirocin (Mupirocin 2 % Oint 22 Gm Tube) 1 appl TOPICAL TID SCOTTY; Protocol Last Admin: 01/22/24 11:44 Dose: Not Given Ondansetron HCl (Ondansetron Hcl 4 Mg/2 Ml Vial) 4 mg IVPUSH Q8H PRN PRN Reason: Nausea and Vomiting Sodium Chloride (0.9 % Sodium Chloride Flush 3 Ml Syringe) 3 ml IVFLUSH QSHIFT SCOTTY Last Admin: 01/22/24 08:00 Dose: 3 ml Sodium Chloride (Sodium Chloride 0.65 % Nasal 44 Ml Sprbtl) 2 spray NOSTRIL-B QID PRN PRN Reason: dry nasal passages Triamcinolone Acetonide (Triamcinolone Acet 0.5 % Cream 15 Gm Tube) 1 appl TOPICAL BID PRN PRN Reason: BALANITIS Zolpidem Tartrate (Zolpidem Tartrate 5 Mg Tablet) 10 mg PO BEDTIME PRN PRN Reason: insomnia Home Medications ?Medication ?Instructions ?Recorded ?Confirmed ?Last Taken ?Type buspirone 30 mg tablet 30 mg PO BID 06/12/23 01/22/24 01/21/24 History escitalopram oxalate 20 mg tablet 20 mg PO DAILY 06/28/23 01/22/24 01/21/24 History metformin 1,000 mg tablet 1,000 mg PO BID 06/28/23 01/22/24 01/21/24 History metoprolol succinate 100 mg 100 mg PO DAILY 06/28/23 01/22/24 01/21/24 History tablet,extended release 24 hr semaglutide 1 mg/dose (4 mg/3 mL) 1 mg subcut MO 01/22/24 01/22/24 01/21/24 History subcutaneous pen injector (Ozempic) Physical Exam Vital Signs: Vital Signs: Last Vital Signs Temp 98.0 F 01/22/24 07:48 Pulse 125 H 01/22/24 11:38 Resp 12 01/22/24 07:48 BP 114/80 01/22/24 11:38 Pulse Ox 99 01/22/24 07:48 O2 Del Method Room Air 01/22/24 07:48 BMI result Body Mass Index 44.5 GENERAL APPEARANCE: in no acute distress, pleasant. NECK: no carotid bruit, no jugular venous distention. SKIN: no suspicious lesions, warm and dry. HEART: no murmurs, irregular rate and rhythm. Tachycardic. LUNGS: clear to auscultation bilaterally. ABDOMEN: soft, nontender. EXTREMITIES: no edema. PERIPHERAL PULSES: equal. NEUROLOGIC: No gross deficits, AAO X 3 Objective Labs and Meds 01/22/24 04:45 01/22/24 04:45 Lab results: Laboratory Results - last 24 hr 01/21/24 01/21/24 01/22/24 23:05 23:46 01:44 WBC 8.7 RBC 4.47 L Hgb 13.6 L Hct 39.1 L MCV 87.5 MCH 30.4 MCHC 34.8 RDW 12.0 Plt Count 251 MPV 10.3 Immature Gran % (Auto) 0.6 H Neut % (Auto) 71.2 Lymph % (Auto) 21.5 [place] % (Auto) 5.5 Eos % (Auto) 0.9 Baso % (Auto) 0.3 Lymph # (Auto) 1.9 [place] # (Auto) 0.5 Eos # (Auto) 0.1 Baso # (Auto) 0.0 Abs Immat Gran (auto) 0.05 H Absolute Neuts (auto) 6.2 Absolute Nucleated RBC 0.000 Nucleated RBC % (auto) 0.0 Sodium 131 L Potassium 4.6 Chloride 96 Carbon Dioxide 23 Anion Gap 17 BUN 24 H Creatinine 1.39 Estim Creat Clear Calc 88.9 Estimated GFR 54 POC Glucose 282 H Random Glucose 729 H* Estimat Average Glucose Hemoglobin A1c % Calcium 9.3 Total Bilirubin 0.2 AST 37 ALT 86 H Alkaline Phosphatase 126 H Troponin I High Sens 11.0 D B-Natriuretic Peptide 11 Total Protein 6.8 Albumin 3.7 Urine Color Yellow Urine Appearance Clear Urine pH 6.0 Ur Specific [place] >= 1.030 H Urine Protein Negative Urine Glucose (UA) >=1000 H Urine Ketones Negative Urine Blood Negative Urine Nitrite Negative Ur Leukocyte Esterase Negative Urine RBC 0-2 Urine WBC 0-5 Ur Squamous Epith Cells 0-2 Urine Bacteria None Seen Hyaline Casts 0-2 Urine Opiates Screen POSITIVE H Ur Buprenorphine Scrn Not Detected Ur Oxycodone Screen Not Detected Urine Methadone Screen Not Detected Urine Fentanyl Screen POSITIVE H Ur Barbiturates Screen Not Detected Ur Phencyclidine Scrn Not Detected Ur Amphetamines Screen Not Detected U Benzodiazepines Scrn Not Detected Urine Cocaine Screen POSITIVE H U Marijuana (THC) Screen POSITIVE H Influenza Type A (PCR) NEGATIVE Influenza Type B (PCR) NEGATIVE RSV RNA Qual (PCR) NEGATIVE SARS-CoV-2 RNA (RT-PCR) NEGATIVE S. pyogenes GrpA [place] Negative 01/22/24 01/22/24 01/22/24 04:45 04:54 07:39 WBC 9.5 RBC 4.35 L Hgb 13.0 L Hct 38.1 L MCV 87.6 MCH 29.9 MCHC 34.1 RDW 11.9 Plt Count 239 MPV 10.2 Immature Gran % (Auto) Neut % (Auto) Lymph % (Auto) [place] % (Auto) Eos % (Auto) Baso % (Auto) Lymph # (Auto) [place] # (Auto) Eos # (Auto) Baso # (Auto) Abs Immat Gran (auto) Absolute Neuts (auto) Absolute Nucleated RBC 0.000 Nucleated RBC % (auto) 0.0 Sodium 135 Potassium 3.5 D Chloride 100 Carbon Dioxide 26 Anion Gap 13 BUN 23 H Creatinine 0.94 Estim Creat Clear Calc 131.5 Estimated GFR > 60 POC Glucose 281 H 271 H Random Glucose 298 H Estimat Average Glucose TNP Hemoglobin A1c % > 14.0 H Calcium 9.4 Total Bilirubin AST ALT Alkaline Phosphatase Troponin I High Sens B-Natriuretic Peptide Total Protein Albumin Urine Color Urine Appearance Urine pH Ur Specific [place] Urine Protein Urine Glucose (UA) Urine Ketones Urine Blood Urine Nitrite Ur Leukocyte Esterase Urine RBC Urine WBC Ur Squamous Epith Cells Urine Bacteria Hyaline Casts Urine Opiates Screen Ur Buprenorphine Scrn Ur Oxycodone Screen Urine Methadone Screen Urine Fentanyl Screen Ur Barbiturates Screen Ur Phencyclidine Scrn Ur Amphetamines Screen U Benzodiazepines Scrn Urine Cocaine Screen U Marijuana (THC) Screen Influenza Type A (PCR) Influenza Type B (PCR) RSV RNA Qual (PCR) SARS-CoV-2 RNA (RT-PCR) S. pyogenes GrpA [place] 01/22/24 12:34 WBC RBC Hgb Hct MCV MCH MCHC RDW Plt Count MPV Immature Gran % (Auto) Neut % (Auto) Lymph % (Auto) [place] % (Auto) Eos % (Auto) Baso % (Auto) Lymph # (Auto) [place] # (Auto) Eos # (Auto) Baso # (Auto) Abs Immat Gran (auto) Absolute Neuts (auto) Absolute Nucleated RBC Nucleated RBC % (auto) Sodium Potassium Chloride Carbon Dioxide Anion Gap BUN Creatinine Estim Creat Clear Calc Estimated GFR POC Glucose 356 H* Random Glucose Estimat Average Glucose Hemoglobin A1c % Calcium Total Bilirubin AST ALT Alkaline Phosphatase Troponin I High Sens B-Natriuretic Peptide Total Protein Albumin Urine Color Urine Appearance Urine pH Ur Specific [place] Urine Protein Urine Glucose (UA) Urine Ketones Urine Blood Urine Nitrite Ur Leukocyte Esterase Urine RBC Urine WBC Ur Squamous Epith Cells Urine Bacteria Hyaline Casts Urine Opiates Screen Ur Buprenorphine Scrn Ur Oxycodone Screen Urine Methadone Screen Urine Fentanyl Screen Ur Barbiturates Screen Ur Phencyclidine Scrn Ur Amphetamines Screen U Benzodiazepines Scrn Urine Cocaine Screen U Marijuana (THC) Screen Influenza Type A (PCR) Influenza Type B (PCR) RSV RNA Qual (PCR) SARS-CoV-2 RNA (RT-PCR) S. pyogenes GrpA [place] Imaging Radiologist's impression: Impressions Ankle X-Ray 01/22/24 00:00 IMPRESSION: *Soft tissue prominence adjacent to the lateral malleolus which may represent acute soft tissue inflammatory changes. *No acute fractures or subluxations identified. *Chronic 2 mm ossific body adjacent to the medial malleolus unchanged compared with 01/22/2023 which may represent the sequela of remote injury. Electronically signed by: Yayo Tellez MD 01/22/2024 01:28 AM [email or web address] RP Chest X-Ray 01/22/24 00:00 IMPRESSION: No acute cardiopulmonary abnormalities. Electronically signed by: Yayo Tellez MD 01/22/2024 01:29 AM [email or web address] Assessment and Plan (1) Atrial flutter with rapid ventricular response: Status: Acute Plan [age] year gentleman background history of atrial fibrillation on apixaban presenting with right foot pain due to injury and atrial flutter. He is positive for multiple drugs on drug screen including cocaine. We discussed about abstinence from drugs. On metoprolol succinate 100 mg daily. Add Cardizem 120 mg daily. Continue apixaban 5 mg twice a day. Strategy will be rate controlled due to noncompliance issues. And his heart rate improves he can be discharged back home and can follow with his hollow ware maker as outpatient. Thank you for allowing me to participate in the care of your patient. Please feel free to contact me if you have any questions. Procedures Date of Service Date of Service: 01/22/24
[2024-01-22] MEDS: dilTIAZem HCL CD 120 MG CAP.ER.DEG PO (13:30)
--- NOTE | 2024-01-22 16:12 | P.EN_ITS ---
Event Note Date of Service: 01/22/24 Event Note: atrial flutter with rapid heart rate At present feeling better denies chest pain, no shortness of breath or palpitations Assessment plan 53-year-old male with pertinent history of polysubstance use disorder, insulin- dependent diabetes mellitus, paroxysmal atrial fibrillation on Eliquis, bipolar disorder, hypertension presented to ED for not feeling well. #. Atrial flutter with RVR: Likely in the setting of polysubstance drug use and medication noncompliance. Will resume metoprolol XL 100 mg daily, continue Eliquis 5 mg b.i.d. Strongly recommend compliance with home medication Seen by cardiology they recommended Cardizem CD 120 mg daily #. Uncontrolled Insulin-dependent diabetes mellitus with hyperglycemia: Due to medication noncompliance. Continue insulin sliding scale and Lantus 50 units #. Pharyngitis, viral: Group a strep negative. Supportive treatment #. Bilateral ankle discomfort: Ankle x-ray showed no acute fractures or subluxation, soft tissue prominence adjacent to lateral malleolus likely due to acute soft tissue inflammatory changes. #. Class 3 Obesity: Counseled regarding diet and exercise #. Hypertension: Continue home antihypertensives #. Mood disorder: Continue home medications. #. Polysubstance use disorder: UDS positive for cocaine, fentanyl, opiates and marijuana. Addiction Team consult DVT prophylaxis: Tamia Full code Admit as inpatient and will require two night minimum hospital stay for monitoring of heart rate, blood glucose (as above), which is not possible in a lesser acute setting. Specialist consult pending Time Spent With Patient Time: Total time managing care of this patient today ____ minutes.
[2024-01-22] MEDS: Mupirocin 2 % Oint 22 GM TUBE 1 APPL TOPICAL ×2 (16:13→20:14)
[2024-01-22 16:36] LABS: Glucose, Whole Blood 378 mg/dL (60-115)
[2024-01-22 19:59] LABS: Glucose, Whole Blood 275 mg/dL (60-115)
[2024-01-23 00:43] LABS: Glucose, Whole Blood 235 mg/dL (60-115)
[2024-01-23] MEDS: Insulin Lispro 100 UNIT/ML 3 ML VIAL SUBCUT ×4 (00:48→14:08)
[2024-01-23 04:00] VITALS: BP 110/62; PULSE 66; RESP 22; TEMP 36.2; O2SAT 98
[2024-01-23 05:16] LABS: Glucose, Whole Blood 214 mg/dL (60-115)
[2024-01-23 06:58] VITALS: BP 148/99; PULSE 71; RESP 18; TEMP 36.7; O2SAT 99
[2024-01-23 07:48] LABS: Glucose, Whole Blood 190 mg/dL (60-115)
[2024-01-23] MEDS: Metoprolol Succinate ER 100 MG TAB.ER.24H PO (09:21)
[2024-01-23] MEDS: dilTIAZem HCL CD 120 MG CAP.ER.DEG PO (09:21)
[2024-01-23] MEDS: Insulin Glargine,Hum.rec.anlog 100 UNIT/ML 10 ML VIAL 50 UNIT SUBCUT (09:23)
[2024-01-23] MEDS: Mupirocin 2 % Oint 22 GM TUBE 1 APPL TOPICAL (09:24)
[2024-01-23] MEDS: 0.9 % Sodium Chloride Flush 3 ML SYRINGE IVFLUSH (09:26)
--- NOTE | 2024-01-23 10:15 | P.PNADD_ITS ---
Subjective Subjective Date of Service: 01/23/24 Reason For Visit: Atrial flutter Interim History: Patient medically admitted with aflutter with RVR UDS +at time of admission for fentnayl and cocaine Seen by acid wash operator on 01/21 and at that time patient not reporting or displaying any withdrawal sx. Seen this morning (01/22) in follow up by t/w and patient was noted to be restless, anxious and reporting nausea. He reports using 10 bags of fentanyl daily IN along with cocaine. Last use prior to presenting to ED. Discussed medications for OUD, and patient requesting methadone. Declines Buprenorphine-- I've read too many bad things about it . Denies any history of being methadone He states he does not wish to remain on methadone jail. Encouraged patient to discuss this OTP in the community Discussed current chronic and acute health issues and impact from ongoing use. Discussed risks associated with adulterants in drug supply Review of Systems Acute medical concerns: Yes Review of Systems Constitutional: Reports as per HPI, Reports body ache(s), Reports chills, Reports fatigue and Reports malaise Endocrine: Reports fatigue Mental Status Exam Mental Status Exam Level of Consciousness: Awake, Appropriate, Restless and Alert Patient Behavior: Appropriate and Anxious Mood Description: Anxious Diagnostics Vital Signs (24Hr): Vital Signs - 24 hr 01/22/24 11:38 01/22/24 13:15 01/22/24 16:00 Temperature 98.3 F 97.7 F Pulse Rate 125 H 108 H 99 Respiratory Rate 16 12 Blood Pressure 114/80 126/73 113/75 Pulse Oximetry 96 96 Oxygen Delivery Method Room Air Room Air 01/22/24 20:00 01/22/24 23:18 01/23/24 04:00 Temperature 97.9 F 97.8 F 97.2 F Pulse Rate 110 H 94 66 Respiratory Rate 24 H 21 H 22 H Blood Pressure 155/93 H 123/69 110/62 Pulse Oximetry 96 98 98 Oxygen Delivery Method Room Air Room Air Room Air 01/23/24 06:58 Temperature 98.0 F Pulse Rate 71 Respiratory Rate 18 Blood Pressure 148/99 H Pulse Oximetry 99 Oxygen Delivery Method Room Air BMI result Body Mass Index 44.5 Labs 01/22/24 04:45 01/22/24 04:45 Labs: Laboratory Results - last 48 hr 01/21/24 01/21/24 01/22/24 23:05 23:46 01:44 WBC 8.7 RBC 4.47 L Hgb 13.6 L Hct 39.1 L MCV 87.5 MCH 30.4 MCHC 34.8 RDW 12.0 Plt Count 251 MPV 10.3 Immature Gran % (Auto) 0.6 H Neut % (Auto) 71.2 Lymph % (Auto) 21.5 Brown % (Auto) 5.5 Eos % (Auto) 0.9 Baso % (Auto) 0.3 Lymph # (Auto) 1.9 Brown # (Auto) 0.5 Eos # (Auto) 0.1 Baso # (Auto) 0.0 Abs Immat Gran (auto) 0.05 H Absolute Neuts (auto) 6.2 Absolute Nucleated RBC 0.000 Nucleated RBC % (auto) 0.0 Sodium 131 L Potassium 4.6 Chloride 96 Carbon Dioxide 23 Anion Gap 17 BUN 24 H Creatinine 1.39 Estim Creat Clear Calc 88.9 Estimated GFR 54 POC Glucose 282 H Random Glucose 729 H* Estimat Average Glucose Hemoglobin A1c % Calcium 9.3 Total Bilirubin 0.2 AST 37 ALT 86 H Alkaline Phosphatase 126 H Troponin I High Sens 11.0 D B-Natriuretic Peptide 11 Total Protein 6.8 Albumin 3.7 Urine Color Yellow Urine Appearance Clear Urine pH 6.0 Ur Specific [place] >= 1.030 H Urine Protein Negative Urine Glucose (UA) >=1000 H Urine Ketones Negative Urine Blood Negative Urine Nitrite Negative Ur Leukocyte Esterase Negative Urine RBC 0-2 Urine WBC 0-5 Ur Squamous Epith Cells 0-2 Urine Bacteria None Seen Hyaline Casts 0-2 Urine Opiates Screen POSITIVE H Ur Buprenorphine Scrn Not Detected Ur Oxycodone Screen Not Detected Urine Methadone Screen Not Detected Urine Fentanyl Screen POSITIVE H Ur Barbiturates Screen Not Detected Ur Phencyclidine Scrn Not Detected Ur Amphetamines Screen Not Detected U Benzodiazepines Scrn Not Detected Urine Cocaine Screen POSITIVE H U Marijuana (THC) Screen POSITIVE H Influenza Type A (PCR) NEGATIVE Influenza Type B (PCR) NEGATIVE RSV RNA Qual (PCR) NEGATIVE SARS-CoV-2 RNA (RT-PCR) NEGATIVE S. pyogenes GrpA [place] Negative 01/22/24 01/22/24 01/22/24 04:45 04:54 07:39 WBC 9.5 RBC 4.35 L Hgb 13.0 L Hct 38.1 L MCV 87.6 MCH 29.9 MCHC 34.1 RDW 11.9 Plt Count 239 MPV 10.2 Immature Gran % (Auto) Neut % (Auto) Lymph % (Auto) Brown % (Auto) Eos % (Auto) Baso % (Auto) Lymph # (Auto) Brown # (Auto) Eos # (Auto) Baso # (Auto) Abs Immat Gran (auto) Absolute Neuts (auto) Absolute Nucleated RBC 0.000 Nucleated RBC % (auto) 0.0 Sodium 135 Potassium 3.5 D Chloride 100 Carbon Dioxide 26 Anion Gap 13 BUN 23 H Creatinine 0.94 Estim Creat Clear Calc 131.5 Estimated GFR > 60 POC Glucose 281 H 271 H Random Glucose 298 H Estimat Average Glucose TNP Hemoglobin A1c % > 14.0 H Calcium 9.4 Total Bilirubin AST ALT Alkaline Phosphatase Troponin I High Sens B-Natriuretic Peptide Total Protein Albumin Urine Color Urine Appearance Urine pH Ur Specific [place] Urine Protein Urine Glucose (UA) Urine Ketones Urine Blood Urine Nitrite Ur Leukocyte Esterase Urine RBC Urine WBC Ur Squamous Epith Cells Urine Bacteria Hyaline Casts Urine Opiates Screen Ur Buprenorphine Scrn Ur Oxycodone Screen Urine Methadone Screen Urine Fentanyl Screen Ur Barbiturates Screen Ur Phencyclidine Scrn Ur Amphetamines Screen U Benzodiazepines Scrn Urine Cocaine Screen U Marijuana (THC) Screen Influenza Type A (PCR) Influenza Type B (PCR) RSV RNA Qual (PCR) SARS-CoV-2 RNA (RT-PCR) S. pyogenes GrpA [place] 01/22/24 01/22/24 01/22/24 12:34 16:23 19:56 WBC RBC Hgb Hct MCV MCH MCHC RDW Plt Count MPV Immature Gran % (Auto) Neut % (Auto) Lymph % (Auto) Brown % (Auto) Eos % (Auto) Baso % (Auto) Lymph # (Auto) Brown # (Auto) Eos # (Auto) Baso # (Auto) Abs Immat Gran (auto) Absolute Neuts (auto) Absolute Nucleated RBC Nucleated RBC % (auto) Sodium Potassium Chloride Carbon Dioxide Anion Gap BUN Creatinine Estim Creat Clear Calc Estimated GFR POC Glucose 356 H* 378 H* 275 H Random Glucose Estimat Average Glucose Hemoglobin A1c % Calcium Total Bilirubin AST ALT Alkaline Phosphatase Troponin I High Sens B-Natriuretic Peptide Total Protein Albumin Urine Color Urine Appearance Urine pH Ur Specific [place] Urine Protein Urine Glucose (UA) Urine Ketones Urine Blood Urine Nitrite Ur Leukocyte Esterase Urine RBC Urine WBC Ur Squamous Epith Cells Urine Bacteria Hyaline Casts Urine Opiates Screen Ur Buprenorphine Scrn Ur Oxycodone Screen Urine Methadone Screen Urine Fentanyl Screen Ur Barbiturates Screen Ur Phencyclidine Scrn Ur Amphetamines Screen U Benzodiazepines Scrn Urine Cocaine Screen U Marijuana (THC) Screen Influenza Type A (PCR) Influenza Type B (PCR) RSV RNA Qual (PCR) SARS-CoV-2 RNA (RT-PCR) S. pyogenes GrpA [place] 01/23/24 01/23/24 01/23/24 00:39 05:11 07:02 WBC RBC Hgb Hct MCV MCH MCHC RDW Plt Count MPV Immature Gran % (Auto) Neut % (Auto) Lymph % (Auto) Brown % (Auto) Eos % (Auto) Baso % (Auto) Lymph # (Auto) Brown # (Auto) Eos # (Auto) Baso # (Auto) Abs Immat Gran (auto) Absolute Neuts (auto) Absolute Nucleated RBC Nucleated RBC % (auto) Sodium Potassium Chloride Carbon Dioxide Anion Gap BUN Creatinine Estim Creat Clear Calc Estimated GFR POC Glucose 235 H 214 H 190 H Random Glucose Estimat Average Glucose Hemoglobin A1c % Calcium Total Bilirubin AST ALT Alkaline Phosphatase Troponin I High Sens B-Natriuretic Peptide Total Protein Albumin Urine Color Urine Appearance Urine pH Ur Specific [place] Urine Protein Urine Glucose (UA) Urine Ketones Urine Blood Urine Nitrite Ur Leukocyte Esterase Urine RBC Urine WBC Ur Squamous Epith Cells Urine Bacteria Hyaline Casts Urine Opiates Screen Ur Buprenorphine Scrn Ur Oxycodone Screen Urine Methadone Screen Urine Fentanyl Screen Ur Barbiturates Screen Ur Phencyclidine Scrn Ur Amphetamines Screen U Benzodiazepines Scrn Urine Cocaine Screen U Marijuana (THC) Screen Influenza Type A (PCR) Influenza Type B (PCR) RSV RNA Qual (PCR) SARS-CoV-2 RNA (RT-PCR) S. pyogenes GrpA [place] Imaging Radiology Impressions: ITS Impressions Ankle X-Ray 01/22/24 00:00 IMPRESSION: *Soft tissue prominence adjacent to the lateral malleolus which may represent acute soft tissue inflammatory changes. *No acute fractures or subluxations identified. *Chronic 2 mm ossific body adjacent to the medial malleolus unchanged compared with 01/22/2023 which may represent the sequela of remote injury. Electronically signed by: Yayo Tellez MD 01/22/2024 01:28 AM [facility] Chest X-Ray 01/22/24 00:00 IMPRESSION: No acute cardiopulmonary abnormalities. Electronically signed by: Yayo Tellez MD 01/22/2024 01:29 AM [facility] Medications Medications Current Medications Acetaminophen (Acetaminophen 325 Mg Tablet) 650 mg PO Q6H PRN PRN Reason: Pain, Mild (Pain Scale 1-3), fever or headache Albuterol Sulfate (Albuterol Sulfate 90 Mcg 8 Gm Inhaler) 2 puff INHALE Q4H PRN PRN Reason: wheezing and/or shortness of breath Apixaban (Apixaban 5 Mg Tablet) 5 mg PO BID [facility] Last Admin: 01/23/24 09:26 Dose: Not Given Benzocaine (Throat Lozenge, Medicated Lozenge) 1 lozenge MUCOUS MEM Q2H PRN PRN Reason: Sore Throat Buspirone HCl (Buspirone Hcl 10 Mg Tablet) 30 mg PO BID [facility] Last Admin: 01/23/24 09:26 Dose: Not Given Calcium Carbonate (Calcium Carbonate 750 Mg Tab.Chew) 750 mg PO Q4H PRN PRN Reason: Heartburn Clotrimazole (Clotrimazole 1 % Cream 15 Gm Tube) 1 appl TOPICAL BID PRN PRN Reason: balanitis Diltiazem HCl (Diltiazem Hcl Cd 120 Mg Cap.Er.Deg) 120 mg PO DAILY [facility]; Protocol Last Admin: 01/23/24 09:21 Dose: 120 mg Escitalopram Oxalate (Escitalopram Oxalate 20 Mg Tablet) 20 mg PO DAILY [facility] Last Admin: 01/23/24 09:26 Dose: Not Given Glucose (Glucose Gel 15 Gm Gel..Gram.) 15 gm PO Q15M PRN; Protocol PRN Reason: per Hypoglycemia Standing Ord. Dextrose (D10) 250 mls @ 750 mls/hr IV Q15M PRN; Protocol PRN Reason: per Hypoglycemia Standing Ord. Insulin Glargine (Insulin Glargine,Hum.Rec.Anlog 100 Unit/Ml 10 Ml Vial) 50 unit SUBCUT DAILY [facility] Last Admin: 01/23/24 09:23 Dose: 50 unit Insulin Human Lispro (Insulin Lispro 100 Unit/Ml 3 Ml Vial) 0 unit SUBCUT Q4H [facility]; Protocol Last Admin: 01/23/24 09:26 Dose: 4 unit Magnesium Hydroxide (Milk Of Magnesia 30 Ml Oral.Susp) 30 ml PO DAILY PRN PRN Reason: Constipation Melatonin (Melatonin 3 Mg Tablet) 6 mg PO BEDTIME PRN PRN Reason: Insomnia Metoprolol Succinate (Metoprolol Succinate Er 100 Mg Tab.Er.24h) 100 mg PO DAILY [facility]; Protocol Last Admin: 01/23/24 09:21 Dose: 100 mg Multi-Ingred Medicated Throat [place] (Throat [place], Medicated 177 Ml Bottle) 1 spray MUCOUS MEM Q2H PRN PRN Reason: Sore Throat Mupirocin (Mupirocin 2 % Oint 22 Gm Tube) 1 appl TOPICAL TID [facility]; Protocol Last Admin: 01/23/24 09:24 Dose: 1 appl Ondansetron HCl (Ondansetron Hcl 4 Mg/2 Ml Vial) 4 mg IVPUSH Q8H PRN PRN Reason: Nausea and Vomiting Sodium Chloride (0.9 % Sodium Chloride Flush 3 Ml Syringe) 3 ml IVFLUSH QSHIFT [place]OT[place] Last Admin: 01/23/24 09:26 Dose: 3 ml Sodium Chloride (Sodium Chloride 0.65 % Nasal 44 Ml Sprbtl) 2 spray NOSTRIL-B QID PRN PRN Reason: dry nasal passages Triamcinolone Acetonide (Triamcinolone Acet 0.5 % Cream 15 Gm Tube) 1 appl TOPICAL BID PRN PRN Reason: BALANITIS Zolpidem Tartrate (Zolpidem Tartrate 5 Mg Tablet) 10 mg PO BEDTIME PRN PRN Reason: insomnia Allergies Allergies Allergy/AdvReac Type Severity Reaction Status Date / Time Penicillins [PENICILLINS] Allergy Unknown RASH Verified 01/21/24 22:49 Assessment & Plan Assessment & Plan (1) Opioid use disorder: Status: Acute Code(s): F11.90 - Opioid use, unspecified, uncomplicated Assessment and Plan: * methadone 20mg X1--will add additional 10mg if warranted after administration * oxycodone 5-10mg q4-6H PRN may be added if needed to manage withdrawal sx while methadone is being titrated * acid wash operator to send referral to [facility]. --patient aware that he has to present to to continue methadone treatment * risk reduction discussion and overdose prevention discussion Total time managing care of this patient today __30__ minutes.
[2024-01-23] MEDS: Throat Lozenge, Medicated LOZENGE 1 LOZENGE MUCOUS MEM (10:36)
[2024-01-23] MEDS: methADONE HCl 20 MG/2 ML ORAL.CONC PO (10:36)
[2024-01-23 11:13] VITALS: BP 134/79; PULSE 126; RESP 20; TEMP 36.9; O2SAT 97
[2024-01-23 11:31] LABS: Glucose, Whole Blood 339 mg/dL (60-115)
--- NOTE | 2024-01-23 11:58 | PM.PNCARD ---
Subjective Subjective Date of Service: 01/23/24 Interval history: Seen examined at bedside. He is going through heroin withdrawal. He is tachycardic. Physical Exam Vital Signs: Last Vital Signs Temp 98.5 F 01/23/24 11:13 Pulse 126 H 01/23/24 11:13 Resp 20 01/23/24 11:13 BP 134/79 01/23/24 11:13 Pulse Ox 97 01/23/24 11:13 O2 Del Method Room Air 01/23/24 11:13 BMI result Body Mass Index 44.5 GENERAL APPEARANCE: Anxious appearing. Going through withdrawal. NECK: no carotid bruit, no jugular venous distention. SKIN: no suspicious lesions, warm and dry. HEART: no murmurs, irregular rate and rhythm. Tachycardic. LUNGS: clear to auscultation bilaterally. ABDOMEN: soft, nontender. EXTREMITIES: no edema. PERIPHERAL PULSES: equal. NEUROLOGIC: No gross deficits, AAO X 3 Objective Labs and Meds 01/22/24 04:45 01/22/24 04:45 Lab results: Laboratory Results - last 24 hr 01/22/24 01/22/24 01/22/24 12:34 16:23 19:56 POC Glucose 356 H* 378 H* 275 H 01/23/24 01/23/24 01/23/24 00:39 05:11 07:02 POC Glucose 235 H 214 H 190 H 01/23/24 11:18 POC Glucose 339 H Progress Note: A&P Assessment and plan (1) Atrial flutter with rapid ventricular response: Status: Acute Plan Atrial flutter in a 53-year-old gentleman with polysubstance abuse. Heart rates were better controlled for this morning he is going through heroin withdrawal and he is tachycardic. He has been started on methadone. Continue Toprol-XL and diltiazem at the same dose. As methadone fixes his heroin withdrawal, we will reassess the heart rate and titrate medicines if required. He has been on Eliquis 5 mg twice a day for anticoagulation in the past for atrial fibrillation. This should be continued. Thank you for allowing me to participate in the care of your patient. Please feel free to contact me if you have any questions. Time Spent With Patient Time: Total time managing care of this patient today ____ minutes. Progress Note: Quality Stroke Does the patient have a stroke diagnosis?: No Procedures Date of Service Date of Service: 01/23/24
--- NOTE | 2024-01-23 13:45 | P.PNIM_ITS ---
Subjective Subjective Date of Service: 01/23/24 Interval History: Complaining of sweating, nauseous, feels like withdrawing, denies palpitation but noted to be in atrial flutter in 120 to 130s, denies chest pain, no lightheadedness or dizziness, no acute events overnight. Review of Systems All other symptoms reviewed and are negative. Physical Exam 2 Vital Signs: Vital Signs: Last Vital Signs Temp 98.5 F 01/23/24 11:13 Pulse 126 H 01/23/24 11:13 Resp 20 01/23/24 11:13 BP 134/79 01/23/24 11:13 Pulse Ox 97 01/23/24 11:13 O2 Del Method Room Air 01/23/24 11:13 BMI result Body Mass Index 44.5 Const: Other: General awake alert x3, restless, flushed, in no acute distress. Anicteric sclera Neck supple no JVD. CVS iregular rate rhythm, Respiratory lungs clear to auscultation, no respiratory distress Gastrointestinal abdomen soft, nontender, bowel sounds audible, no guarding , no rigidity. Extremities no edema. Neuro non focal . Skin flushed Psych anxious Objective Data Active Medications Acetaminophen (Acetaminophen 325 Mg Tablet) 650 mg PO Q6H PRN PRN Reason: Pain, Mild (Pain Scale 1-3), fever or headache Albuterol Sulfate (Albuterol Sulfate 90 Mcg 8 Gm Inhaler) 2 puff INHALE Q4H PRN PRN Reason: wheezing and/or shortness of breath Apixaban (Apixaban 5 Mg Tablet) 5 mg PO BID [facility] Last Admin: 01/23/24 09:26 Dose: Not Given Documented By: GIGI Non-Admin Reason: Patient Refused Benzocaine (Throat Lozenge, Medicated Lozenge) 1 lozenge MUCOUS MEM Q2H PRN PRN Reason: Sore Throat Last Admin: 01/23/24 10:36 Dose: 1 lozenge Documented By: GIGI Buspirone HCl (Buspirone Hcl 10 Mg Tablet) 30 mg PO BID [facility] Last Admin: 01/23/24 09:26 Dose: Not Given Documented By: GIGI Non-Admin Reason: Patient Refused Calcium Carbonate (Calcium Carbonate 750 Mg Tab.Chew) 750 mg PO Q4H PRN PRN Reason: Heartburn Clotrimazole (Clotrimazole 1 % Cream 15 Gm Tube) 1 appl TOPICAL BID PRN PRN Reason: balanitis Diltiazem HCl (Diltiazem Hcl Cd 120 Mg Cap.Er.Deg) 120 mg PO DAILY [facility]; Protocol Last Admin: 01/23/24 09:21 Dose: 120 mg Documented By: GIGI Escitalopram Oxalate (Escitalopram Oxalate 20 Mg Tablet) 20 mg PO DAILY [facility] Last Admin: 01/23/24 09:26 Dose: Not Given Documented By: GIGI Non-Admin Reason: Patient Refused Glucose (Glucose Gel 15 Gm Gel..Gram.) 15 gm PO Q15M PRN; Protocol PRN Reason: per Hypoglycemia Standing Ord. Dextrose (D10) 250 mls @ 750 mls/hr IV Q15M PRN; Protocol PRN Reason: per Hypoglycemia Standing Ord. Insulin Glargine (Insulin Glargine,Hum.Rec.Anlog 100 Unit/Ml 10 Ml Vial) 50 unit SUBCUT DAILY [facility] Last Admin: 01/23/24 09:23 Dose: 50 unit Documented By: GIGI Insulin Human Lispro (Insulin Lispro 100 Unit/Ml 3 Ml Vial) 0 unit SUBCUT Q4H [facility]; Protocol Last Admin: 01/23/24 09:26 Dose: 4 unit Documented By: GIGI Magnesium Hydroxide (Milk Of Magnesia 30 Ml Oral.Susp) 30 ml PO DAILY PRN PRN Reason: Constipation Melatonin (Melatonin 3 Mg Tablet) 6 mg PO BEDTIME PRN PRN Reason: Insomnia Metoprolol Succinate (Metoprolol Succinate Er 100 Mg Tab.Er.24h) 100 mg PO DAILY [facility]; Protocol Last Admin: 01/23/24 09:21 Dose: 100 mg Documented By: GIGI Multi-Ingred Medicated Throat [place] (Throat [place], Medicated 177 Ml Bottle) 1 spray MUCOUS MEM Q2H PRN PRN Reason: Sore Throat Mupirocin (Mupirocin 2 % Oint 22 Gm Tube) 1 appl TOPICAL TID [facility]; Protocol Last Admin: 01/23/24 09:24 Dose: 1 appl Documented By: GIGI Ondansetron HCl (Ondansetron Hcl 4 Mg/2 Ml Vial) 4 mg IVPUSH Q8H PRN PRN Reason: Nausea and Vomiting Sodium Chloride (0.9 % Sodium Chloride Flush 3 Ml Syringe) 3 ml IVFLUSH QSHIFT [place]OT[place] Last Admin: 01/23/24 09:26 Dose: 3 ml Documented By: GIGI Sodium Chloride (Sodium Chloride 0.65 % Nasal 44 Ml Sprbtl) 2 spray NOSTRIL-B QID PRN PRN Reason: dry nasal passages Triamcinolone Acetonide (Triamcinolone Acet 0.5 % Cream 15 Gm Tube) 1 appl TOPICAL BID PRN PRN Reason: BALANITIS Zolpidem Tartrate (Zolpidem Tartrate 5 Mg Tablet) 10 mg PO BEDTIME PRN PRN Reason: insomnia Labs 01/22/24 04:45 01/22/24 04:45 Labs: Laboratory Results - last 24 hr 01/22/24 01/22/24 01/23/24 16:23 19:56 00:39 POC Glucose 378 H* 275 H 235 H 01/23/24 01/23/24 01/23/24 05:11 07:02 11:18 POC Glucose 214 H 190 H 339 H Assessment and Plan (1) Atrial flutter with rapid ventricular response: Status: Acute (2) Acute hyperglycemia: Status: Acute (3) Polysubstance abuse: Status: Acute Plan 53-year-old male with pertinent history of polysubstance use disorder, insulin- dependent diabetes mellitus, paroxysmal atrial fibrillation on Eliquis, bipolar disorder, hypertension presented to ED for not feeling well. #. Atrial flutter with RVR: Likely in the setting of polysubstance drug use and medication noncompliance. Continue metoprolol XL 100 mg daily, diltiazem CD 120 mg daily and Eliquis 5 mg b.i.d. Noted to be in atrial flutter with RVR likely due to opiate withdrawal Seen by Cardiology they recommend to continue above treatment and follow closely post withdrawal to see if any further med adjustment needed #. Uncontrolled Insulin-dependent diabetes mellitus with hyperglycemia: Due to medication noncompliance. Blood sugar in 200-300 range, hold metformin and Ozempic, Continue insulin sliding scale and Lantus 50 units Will adjust ISS. #. Pharyngitis, viral: Group a strep negative. Supportive treatment #. Bilateral ankle discomfort: Ankle x-ray showed no acute fractures or subluxation, soft tissue prominence adjacent to lateral malleolus likely due to acute soft tissue inflammatory changes. #. Class 3 Obesity: Counseled regarding diet and exercise #. Hypertension: Continue metoprolol and started on Cardizem, will hold lisinopril #. Mood disorder: Continue home medications. #. Polysubstance use disorder: UDS positive for cocaine, fentanyl, opiates and marijuana. Seen by Addiction Team started on methadone, since noted to be withdrawing from opiates with nausea anxiety and tachycardia DVT prophylaxis: Eliquis Full code Patient will require continued inpatient hospital stay for monitoring of heart rate, blood glucose (as above), and opiate withdrawal which is not possible in a lesser acute setting. Quality Stroke Does the patient have a stroke diagnosis?: No VTE Prior VTE?: No VTE Risk Level:: Medical - moderate - high VTE Device Contraindication: Treatment Not Indicated VTE Drug Contraindication: N/A - Med Ordered
[2024-01-23] MEDS: methADONE HCl 20 MG/2 ML ORAL.CONC 10 MG PO (14:08)
--- NOTE | 2024-01-23 14:29 | MHC.RECOVRN ---
Met with pt in 487 after receiving 20 mg methadone earlier today. Pt laying in bed, awake, alert, easily engages in conversation. Pt reports feeling tired and hungry. In regards to methadone, pt feels maybe a little better, unable to elaborate. Pt reports his stomach is in knots, unsure if it is hunger or upset. Pt does not appear restless or diaphoretic. Denies questions or concerns for t/w. Discussed with Fang Iraheta APRN. Plan to administer additional methadone.
--- NOTE | 2024-01-23 15:15 | MHC.CM.PN ---
Pt has been medically cleared for DC. Plan is self care, and for pt to follow up at [facility] for Methadone.
--- NOTE | 2024-01-23 15:30 | P.DS_ITS ---
DS: Providers Provider Date of Service: 01/23/24 Date of admission: 01/22/24 00:54 Date of discharge: 01/23/24 Primary care physician: Julio Carter MD Consults: 01/22/24 00:48 Addiction Medicine Routine Consulting Provider: Addiction Covering Reason for consultation: polysusbtance use disorder Consult to Cardiology Routine Consulting Provider: [facility] Reason for consultation: atrial flutter with rvr Has provider been notified: Yes DS: Diagnosis Discharge Diagnosis (1) Opioid use disorder: Status: Acute DS: Summary Hospital Course Hospital Course: Date of Service: 01/22/24 Chief Complaint: Feeling unwell This is a 53-year-old male with pertinent history of polysubstance use disorder, insulin-dependent diabetes mellitus, paroxysmal atrial fibrillation on Eliquis, bipolar disorder, hypertension who presents to the emergency department for evaluation of feeling unwell. Patient has multiple complaints at the time of presentation. States he has bilateral ankle discomfort and had a fall due to the same. Unclear if ankle pain started before or after the fall. Also has been having sore throat that started 2 days prior to presentation. Patient admits that he has not been taking his medications and admits to using drugs prior to ER visit. Denies fever, chills, palpitations, chest pain, shortness of breath, abdominal pain, changes in urinary or bowel habits. In the emergency department, patient was found to be in a flutter with RVR and initiated on IV diltiazem drip. Also blood sugar found to be in the 700s and given IV insulin. Hospital course 53-year-old male with pertinent history of polysubstance use disorder, insulin- dependent diabetes mellitus, paroxysmal atrial fibrillation on Eliquis, bipolar disorder, hypertension presented to ED for not feeling well. #. Atrial flutter with RVR: Likely in the setting of polysubstance drug use and medication noncompliance, treated with metoprolol XL 100 mg daily and diltiazem 120 mg daily, Eliquis was continued patient Heart rate improved but noted to have recurrent episode of atrial flutter with rapid ventricular rate patient was noted to be withdrawing from opiates with flushing, nausea, anxiety seen by Addiction Team started on methadone patient started feeling better and then decided to leave hospital against medical is twice due to family emergency patient made aware of risk of worsening tachycardia syncope chest pain and possible He showed understanding of complications but still wishes to leave therefore will discharge on metoprolol XL 100 mg dose of Cardizem CD 240 mg sent to pharmacy he is recommended to continue Eliquis and show compliance with home medications, he is recommended to follow-up at outpatient clinic for continued use of methadone and strongly recommended to avoid illicit drug use. Patient was evaluated by Addiction Team as has been given Outpatient Clinic follow-up for methadone. #. Uncontrolled Insulin-dependent diabetes mellitus with hyperglycemia: Due to medication noncompliance. Blood sugar in 200-300 range, recommend to continue home medications and follow diabetic diet #. Pharyngitis, viral: Group a strep negative, recommend lozenges. #. Bilateral ankle discomfort: Ankle x-ray showed no acute fractures or subluxation, soft tissue prominence adjacent to lateral malleolus likely due to acute soft tissue inflammatory changes. #. Class 3 Obesity: Counseled regarding diet and exercise #. Hypertension: Continue metoprolol and started on Cardizem, recommend to di scontinue lisinopril #. Mood disorder: Continue home medications. #. Polysubstance use disorder: UDS positive for cocaine, fentanyl, opiates and marijuana. Seen by Addiction Team started on methadone, recommend outpatient follow-up at methadone clinic Time Attestation Discharge Coordination Time (in mins): 40 Quality: Safe Use of Opioids Does Pt have an Active Cancer Diagnosis on the Problem List?: No Quality: Stroke Does the patient have a stroke diagnosis?: No Physical Exam Vital Signs: Vital Signs: Last Vital Signs Temp 98.5 F 01/23/24 11:13 Pulse 126 H 01/23/24 11:13 Resp 20 01/23/24 11:13 BP 134/79 01/23/24 11:13 Pulse Ox 97 01/23/24 11:13 O2 Del Method Room Air 01/23/24 11:13 BMI result Body Mass Index 44.5 Const: Other: General awake alert x3, in no acute distress. Anicteric sclera Neck supple no JVD. CVS tachy iregular rate rhythm, Respiratory lungs clear to auscultation, no respiratory distress Gastrointestinal abdomen soft, non tender, bowel sounds audible, no guarding , no rigidity. Extremities no edema. Neuro non focal . Skin warm and dry Psych appropriate affect DS: Data Data Completed and Pending Labs on day of discharge: Laboratory Results - last 24 hr 01/22/24 01/22/24 01/23/24 16:23 19:56 00:39 POC Glucose 378 H* 275 H 235 H 01/23/24 01/23/24 01/23/24 05:11 07:02 11:18 POC Glucose 214 H 190 H 339 H Discharge Plan Discharge Anticipated Discharge Date/Time: 01/23/24 15:05 Patient Disposition: Left Against Medical Advice Discharge Diagnosis: Atrial flutter with RVR Opiate use disorder with withdrawal Referrals: Julio Carter MD [Primary Care Provider] - 1 Week Discharge Medications: New diltiazem HCl [Cardizem CD] 240 mg capsule,extended release 24hr 240 mg PO DAILY Qty: 30 0RF Continued (DME) Dexcom G7 Still Operator Whiskey Misc See Rx Instructions .Route Qty: 1 0RF Rx Instructions: As directed (DME) pen needle, diabetic [BD Ultra-Fine Mini Pen Needle] 31 gauge x 3/16 needle See Rx Instructions .ROUTE .COMPLEX Qty: 100 3RF Dose Instruction: USE DIRECTED ONCE DAILY Rx Instructions: USE DIRECTED ONCE DAILY insulin glargine [Lantus Solostar U-100 Insulin] 100 unit/mL (3 mL) insulin pen 50 unit subcut DAILY 30 Days Qty: 15 1RF lidocaine 5 % adhesive patch,medicated 2 patch topical DAILY Qty: 30 1RF albuterol sulfate [Ventolin HFA] 90 mcg/actuation HFA aerosol inhaler 2 puff inhalation Q4-6H PRN (Reason: wheezing and/or shortness of breath) Qty: 8.5 2RF Eliquis 5 mg tablet 5 mg PO BID 30 Days Qty: 60 2RF Rx Instructions: x30 dats (DME) Dexcom G7 Sensor Device See Rx Instructions .Route Qty: 3 4RF Rx Instructions: As directed change every 10 days zolpidem 10 mg tablet 10 mg PO BEDTIME PRN (Reason: insomnia) Qty: 30 1RF tramadol 50 mg tablet 50 mg PO TID PRN (Reason: pain) 30 Days Qty: 90 0RF buspirone 30 mg tablet 30 mg PO BID Ozempic 1 mg/dose (4 mg/3 mL) pen injector 1 mg subcut MO escitalopram oxalate 20 mg tablet 20 mg PO DAILY metformin 1,000 mg tablet 1,000 mg PO BID metoprolol succinate 100 mg tablet extended release 24 hr 100 mg PO DAILY clotrimazole-betamethasone 1-0.05 % cream 1 appl topical BID PRN (Reason: balanitis) Qty: 45 2RF Rx Instructions: apply to affected area bid for 7 days then bid (DME) ROLLATOR See Rx Instructions .Route .MEDSUPPLY Qty: 1 0RF Rx Instructions: As directed Saline Nasal 0.65 % aerosol,spray 2 spray intranasal QID PRN (Reason: dry nasal passages) Qty: 44 5RF Discontinued lisinopril 30 mg tablet 30 mg PO DAILY Qty: 90 1RF Discharge Orders: Discharge Order (Routine); Ordered 01/23/24 Ordered By: Levar New Diet: Low fat, low cholesterol Activity on Discharge: As tolerated Stand Alone Forms: Patient Portal Discharge page Print Language: Russian Care Plan Goals: Leaving against medical advice due to family emergency patient aware of risk of worsening tachycardia, syncope, fall and heart attack, he shows understanding of his condition Strongly recommend follow-up outpatient for methadone as discussed with Addiction Team Continue metoprolol 100 mg daily Take Cardizem CD 240mg daily Returned to check with symptoms of lightheadedness dizziness palpitations chest pain or passing out. Health Concerns: Diabetes mellitus recommend to follow diabetic diet and take all medications on time as prescribed Plan of Treatment: Outpatient follow-up with Cardiology Dr. Joseph call for appointment Assessment: As above
[2024-01-23] MEDS: Metoprolol Tartrate 25 MG TABLET PO (15:33)
== END 2024-01-23 15:30 | disposition left against medical advice (07) | DRG 201 ==
LOC: HO.ED 01-22 00:48 → HO.EDOVER 01-22 00:58 → HO.IMC 01-22 13:47
PROVIDERS: Admitting Provider Student in an Organized Health Care Education/Training Program; Emergency Provider Emergency Medicine; PCP Internal Medicine; Visit Provider Hospitalist
DX: I48.92 Unspecified atrial flutter (principal); E11.65 Type 2 diabetes mellitus with hyperglycemia; J02.8 Acute pharyngitis due to other specified organisms; F19.10 Other psychoactive substance abuse, uncomplicated; E66.813 Obesity, class 3; Z68.41 Body mass index [BMI] 40.0-44.9, adult; Z71.3 Dietary counseling and surveillance; F11.93 Opioid use, unspecified with withdrawal; M25.572 Pain in left ankle and joints of left foot; M25.571 Pain in right ankle and joints of right foot; I10 Essential (primary) hypertension; F31.9 Bipolar disorder, unspecified; F43.10 Post-traumatic stress disorder, unspecified; Z20.822 Contact with and (suspected) exposure to COVID-19; Z91.148 Patient's other noncompliance with medication regimen for other reason; Z88.0 Allergy status to penicillin; Z79.01 Long term (current) use of anticoagulants; Z79.84 Long term (current) use of oral hypoglycemic drugs; Z79.899 Other long term (current) drug therapy
CPT/HCPCS: 0241U; 36415; 71045; 73610; 80048; 80053; 80307; 81001; 82947; 83036; 83880; 84484; 85025; 85027; 87651; 93005; 99285; J7120

== ENCOUNTER → 2024-01-21 22:54 | Outpatient (BNV) | payer OTHER, SELFPAY | PROVIDERS: Admitting Provider Student in an Organized Health Care Education/Training Program; Emergency Provider Emergency Medicine; PCP Internal Medicine; Visit Provider Internal Medicine Cardiovascular Disease | DX: R94.31 Abnormal electrocardiogram [ECG] [EKG] (principal) | CPT/HCPCS: 93010 ==

== ENCOUNTER → 2024-01-22 00:54 | Outpatient (BNV) | payer OTHER, SELFPAY | PROVIDERS: Admitting Provider Student in an Organized Health Care Education/Training Program; Emergency Provider Emergency Medicine; PCP Internal Medicine; Visit Provider Nurse Practitioner Psychiatric/Mental Health | DX: F11.90 Opioid use, unspecified, uncomplicated (principal) | CPT/HCPCS: 99232 ==

== ENCOUNTER → 2024-01-22 00:54 | Outpatient (BNV) | payer OTHER, SELFPAY | PROVIDERS: Admitting Provider Student in an Organized Health Care Education/Training Program; Emergency Provider Emergency Medicine; PCP Internal Medicine; Visit Provider Student in an Organized Health Care Education/Training Program | DX: I48.92 Unspecified atrial flutter (principal); E11.65 Type 2 diabetes mellitus with hyperglycemia; F19.10 Other psychoactive substance abuse, uncomplicated; F11.90 Opioid use, unspecified, uncomplicated | CPT/HCPCS: 99223; 99239; 99499 ==

== ENCOUNTER → 2024-01-22 00:54 | Outpatient (BNV) | payer OTHER, SELFPAY | PROVIDERS: Admitting Provider Student in an Organized Health Care Education/Training Program; Emergency Provider Emergency Medicine; PCP Internal Medicine; Visit Provider Internal Medicine Cardiovascular Disease | DX: I48.92 Unspecified atrial flutter (principal) | CPT/HCPCS: 99223; 99233 ==

== ENCOUNTER 2024-01-29 13:00 | Outpatient (AMB) | payer OTHER, SELFPAY ==
--- NOTE | 2024-01-29 13:35 | MHC.AMDMED ---
Intake Intake Visit Reasons: 60 min-confirmed Allergies Penicillins [PENICILLINS] Allergy (Unknown, Verified 01/21/24 22:49) RASH HPI Comprehensive Diabetes Asmnt Most Recent Diabetes Results: Hemoglobin A1c 8.4 % 10/01/19 Microalb/Creat Ratio 25.5 ug/mg cr (<30) 08/16/23 Cholesterol 150 mg/dL (<200) 08/16/23 HDL Cholesterol 48 mg/dL (>40) 08/16/23 Triglycerides 93 mg/dL (<150) 08/16/23 Creatinine 0.94 mg/dL (0.5-1.4) 01/22/24 Blood Urea Nitrogen 23 mg/dL (9-16) H 01/22/24 Sodium 135 mmol/L (135-145) 01/22/24 Potassium 3.5 mmol/L (3.3-5.1) 01/22/24 Chloride 100 mmol/L (96-108) 01/22/24 Carbon Dioxide 26 mmol/L (22-29) 01/22/24 Calcium 9.4 mg/dL (8.4-10.2) 01/22/24 AST 37 U/L (5-37) 01/21/24 ALT 86 U/L (0-40) H 01/21/24 Total Protein 6.8 g/dL (6.5-8.0) 01/21/24 Albumin 3.7 g/dL (3.5-5.0) 01/21/24 [facility] Medical History Type 2 diabetes mellitus with hyperglycemia Paroxysmal atrial fibrillation Morbid obesity Substance abuse Essential hypertension Cocaine abuse Erectile dysfunction Polysubstance abuse Paroxysmal atrial fibrillation with rapid ventricular response Lumbar degenerative disc disease Substance abuse Diabetes Depression Overactive bladder Arthritis BPH (benign prostatic hyperplasia) Asthma Seizure Morbid obesity with BMI of 40.0-44.9, adult Benign essential hypertension Insomnia Primary osteoarthritis of both knees Anxiety Family history of thyroid disorder Surgical History No history of previous surgery Family History Father ETOH abuse Mother Diabetes Arthritis of knee Hypertension Other Mental health problem Substance abuse Social History Household Members: None Household Members Other:: rents a room in a house Housing: House Housing Other:: rents a room Alcohol intake: current Alcohol intake frequency: holidays/special occasions only Comment: refused bed alarm Patient Tobacco Use Status: Never used Tobacco e-Cigarette/Vaping Use: Never Used Second Hand Smoke Exposure: No Substance Use Type: Marijuana Advance Directives Date on File: 02/23/22 service: No Current occupational status: unemployed and disabled Sexual orientation: Straight/Heterosexual Cognitive needs: No Hearing needs: No Vision needs: No Assessment & Plan Assessment & Plan (1) Type 2 diabetes mellitus with hyperglycemia: Comment: Admitted for [facility] in July 2019 Code(s): E11.65 - Type 2 diabetes mellitus with hyperglycemia Qualifiers: Diabetes mellitus intermediate insulin use: without intermediate use Qualified Code(s): E11.65 - Type 2 diabetes mellitus with hyperglycemia Plan: Patient at visit to set up an insert [id number], setup G7 sonny on Pt's phone Dexcom User Name:[email or web address] Password:[email or web address] Instructed patient sensors water proof you can shower, or swim do not submerge sensor in water for over 30 minutes Is sensor falls off cannot put back in you need to replace sensor, customer service number given to patient for sensor replacement Sensor placed on the Back of R arm Patient left visit with sensor in warmup Reviewed how to interpret trend arrows Reminded patient that to check finger sticks if symptoms do not match sensor reading. Discussed lag time between finger stick and sensor data.? Instructed patient she should always keep blood glucometer for backup testing if needed Reviewed delay of CGM from fingersticks Reminded pt that if symptoms do not match sensor still needs to check fingersticks. Patient will return in 10 days for Dexcom review Portions of this note were created using voice recognition software, please excuse any words or phrases that may have been misinterpreted. Patient Instructions: Patient instruction: CGM provides information on blood glucose control throughout the day, including hyperglycemia and hypoglycemia. ? Continue to monitor blood glucose as instructed. Follow nutrition guidelines provided. Report any discomfort promptly to health care provider. ?Stay well-hydrated. You can bathe ,shower, swim and exercise while wearing the glucose sensor. Do not submerge glucose sensor in water for more than 30 minutes. Instrucciones para el paciente: CGM proporciona informaci?n sobre el control de la glucosa en gwendolyn a lo alia del d?a, incluidas la hiperglucemia y la hipoglucemia. Contin?e controlando la glucosa en gwendolyn seg?n las instrucciones. Siga las pautas de nutrici?n proporcionadas. Informe cualquier molestia de inmediato al proveedor de atenci?n m?dica. Mantente americo hidratado. Puede ba?arse, ducharse, nadar y hacer ejercicio mientras usa el sensor de glucosa. No sumerja el sensor de glucosa en agua carmen m?s de 30 minutos. Retire el sensor para deepali resonancia magn?ayan o deepali tomograf?a computarizada. Evite la m?quina de osbaldo X en los aeropuertos: retire el sensor o solicite la varita Coding Level of Care Code Est Pt Level 1 (61563) Diagnoses Type 2 diabetes mellitus with hyperglycemia, without long-term current use of insulin E11.65 Diabetes mellitus intermediate insulin use: without termination clerk use
== END 2024-01-29 13:44 | disposition home or self-care (01) ==
PROVIDERS: PCP Internal Medicine; Visit Provider Registered Nurse Diabetes Educator
DX: E11.65 Type 2 diabetes mellitus with hyperglycemia (principal)

== ENCOUNTER → 2024-01-29 13:00 | Outpatient (BNVA) | payer OTHER, SELFPAY | PROVIDERS: PCP Internal Medicine; Visit Provider Registered Nurse Diabetes Educator | DX: E11.65 Type 2 diabetes mellitus with hyperglycemia (principal) | CPT/HCPCS: 99211 ==

== ENCOUNTER 2024-02-15 14:13 | Outpatient (AMB) | payer OTHER, SELFPAY ==
--- NOTE | 2024-02-15 14:21 | MHC.OFFVIS ---
Vital Signs 02/15/24 14:27 02/15/24 15:28 02/15/24 15:42 Height 5 ft 10 in Weight 307 lb 15.772 oz BMI 44.2 BP 112/92 H Blood Pressure Location Lt brachial Position Sitting Pulse 148 H 150 H Pulse Source Pulse Oximeter Pulse Oximetry (%) 99 Intake Visit Reasons: T2DM/CONF Intake Note: Patient present today to follow up on Type 2 Diabetes Mellitus. Patient reports he is feeling anxious today due to not being able to find his ID. Last Diabetic Eye exam: Due Last Podiatry Visit: Does not see a Official Greeter Random Glucose: 340 mg/dl HgA1C: >14.0% 01/22/24 Ditch Rider Required: No Accompanied by: Self / Same As Patient Allergies Penicillins [PENICILLINS] Allergy (Unknown, Verified 02/15/24 14:29) RASH HPI Comments Details: This is a 53-year-old male with a past medical history of polysubstance abuse, uncontrolled type 2 diabetes, depression, atrial flutter with RVR, PTSD presenting for diabetic management. The patient's heart rate today is 148 in his blood pressure is 122/92. In reviewing it is chart it looks like he was admitted to the hospital January 20 to January 22 for atrial flutter with RVR and severe hyperglycemia due to noncompliance with medication regimen. POC today is three hundred forty. It also looks like he left early against medical advice. He was discharged on diltiazem 240 mg. He is not sure he has been taking it. He says he is taking metoprolol succinate ER 100 mg daily. Patient reports he has been under a lot of stress. He smoked marijuana today, but he denies drug or alcohol use since leaving the hospital other than this. In the hospital notes it looks like he was withdrawing from opioids and saw addiction Medicine. He reports yesterday he was dizzy and had to sit down, but today he denies dizziness, near-syncope, chest pain, shortness of breath or feeling palpitations. He is anticoagulated on Eliquis. He has not had follow up with Cardiology or primary care since discharge from the hospital. He admits to some swelling in his legs that looks a little worse today than yesterday, but he says this is chronic. Patient endorses compliance with Ozempic 1 mg weekly, Metformin 1000 mg BID and Lantus 50 units nightly since being in the hospital. His hemoglobin A1c was over 14% 01/22/2024. Patient uses CGM, but he says he deleted the sonny office phone so he has not been using it. We reviewed his glucometer download which shows persistent hyperglycemia. ROS: Constitutional: No fevers or chills. Eyes: No vision changes, blurry vision, double vision Respiratory: No shortness of breath, cough or sputum production. Cardiovascular: No chest pain, chest pressure, palpitations. See HPI. Gastrointestinal: No nausea, vomiting, diarrhea and abdominal pain. Endorses occasional constipation. Neurologic: No headache, seizure, syncope, see HPI. No difficulty speaking. Denies weakness in extremities. Endocrine: Endorses polyuria and polydipsia. Psychiatric: Endorses depression and anxiety. Denies SI/HI. Physical exam: Constitutional: Alert, in no distress. Eyes: Pupils are equal, round and reactive to light Neck: Supple, Full range of motion. No lymphadenopathy. Respiratory: Clear to auscultation. Cardiovascular: Tachycardic. Regular rhythm. No murmur. Neurologic: No focal neurological deficits. Moves all extremities spontaneously. Normal speech. Skin: Diaphoretic Extremities: Warm and well perfused. 1+ bilateral lower extremity edema. Psychiatric: Very anxious [facility] Medical History (Updated 02/15/24 @ 15:45 by GHULAM Jean) Tachycardia Type 2 diabetes mellitus with hyperglycemia Paroxysmal atrial fibrillation Morbid obesity Substance abuse Essential hypertension Cocaine abuse Erectile dysfunction Polysubstance abuse Paroxysmal atrial fibrillation with rapid ventricular response Lumbar degenerative disc disease Substance abuse Diabetes Depression Overactive bladder Arthritis BPH (benign prostatic hyperplasia) Asthma Seizure Morbid obesity with BMI of 40.0-44.9, adult Benign essential hypertension Insomnia Primary osteoarthritis of both knees Anxiety Family history of thyroid disorder Surgical History No history of previous surgery Family History Father ETOH abuse Mother Diabetes Arthritis of knee Hypertension Other Mental health problem Substance abuse Social History Household Members: None Household Members Other:: rents a room in a house Housing: House Housing Other:: rents a room Alcohol intake: current Alcohol intake frequency: holidays/special occasions only Comment: refused bed alarm Patient Tobacco Use Status: Never used Tobacco e-Cigarette/Vaping Use: Never Used Second Hand Smoke Exposure: No Substance Use Type: Marijuana Advance Directives Date on File: 02/23/22 service: No Current occupational status: unemployed and disabled Sexual orientation: Straight/Heterosexual Cognitive needs: No Hearing needs: No Vision needs: No Physical Exam Vital Signs: Last Vital Signs Pulse 148 H 02/15/24 14:27 BP 112/92 H 02/15/24 14:27 BMI result Body Mass Index 44.2 Results Reviewed Results Reviewed: Laboratory Last Values Glucose (Clinic) 340 mg/dL (60-115) H 02/15/24 14:38 Laboratory Tests 08/16/23 08/16/23 01/22/24 15:23 16:15 04:45 Creatinine 0.94 Estimated GFR > 60 Triglycerides 93 LDL Cholesterol, Calc 84 HDL Cholesterol 48 Urine Creatinine 180.21 Urine Microalbumin 46.0 Microalb/Creat Ratio 25.5 Assessment & Plan Assessment & Plan (1) Type 2 diabetes mellitus with hyperglycemia: Comment: Admitted for [facility] in July 2019 Code(s): E11.65 - Type 2 diabetes mellitus with hyperglycemia Category: Medical Qualifiers: Diabetes mellitus correction insulin use: without equipment operator intermodal yard use Qualified Code(s): E11.65 - Type 2 diabetes mellitus with hyperglycemia (2) Atrial flutter with rapid ventricular response: Code(s): I48.92 - Unspecified atrial flutter Category: Medical (3) Tachycardia: Code(s): R00.0 - Tachycardia, unspecified Category: Medical Plan In summary this is a 53-year-old male with a complex past medical history who presents today for diabetic management who has tachycardia today. Explained to patient he is likely back in atrial flutter or atrial fibrillation with RVR and possibilities of other arrhythmias with the patient and potential causes for these symptoms. Patient says he does not have symptoms related to it today but yesterday was dizzy and had to sit down due to dizziness. Advised patient he needs to return to the ED. He refused for the office to call 911 for transport multiple times. He refused to be taken over to the ED by staff. Patient insistent he is going to go home 1st and gather his things because he knows he will be admitted again. I strongly advised against this explaining that he could decompensate after leaving the office, fall and harm himself and/or lose consciousness and . Reviewed risk of morbidity and mortality multiple times with him. He continued to refuse going to the ED until he goes home 1st to get his belongings. Patient stated ?I know my body, and I will call 911 if I need to do that. ? Advised him to increase Lantus to 60 units daily and continue Ozempic 1 mg weekly and metformin 1000 mg twice a day. Recommended short term follow up in office in 2 weeks. He has an appointment with the community nutrition educator next week. Medications: Changed From insulin glargine (Lantus Solostar U-100 Insulin) 50 units (0.5 mL) subcut DAILY 30 days 15 mL 1RF To insulin glargine (Lantus Solostar U-100 Insulin) 60 units (0.6 mL) subcut DAILY 30 days 30 mL 3RF Coding Level of Care Code Est Pt Level 5 (23348) Complex EM visit Add On G2211 Diagnoses Type 2 diabetes mellitus with hyperglycemia, without long-term current use of insulin E11.65 Diabetes mellitus equipment operator intermodal yard insulin use: without equipment operator intermodal yard use Atrial flutter with rapid ventricular response I48.92 Tachycardia R00.0 Time Spent (min) 60 Comment Chart review, direct patient care, completing documentation
[2024-02-15 14:27] VITALS: BP 112/92; PULSE 148; BMI 44.2
[2024-02-15 14:43] LABS: Glucose, Whole Blood 340 mg/dL (60-115)
[2024-02-15 15:28] VITALS: PULSE 150
[2024-02-15 15:42] VITALS: O2SAT 99
== END 2024-02-15 15:45 | disposition home or self-care (01) ==
PROVIDERS: PCP Internal Medicine; Visit Provider Physician Assistant Medical
DX: I48.92 Unspecified atrial flutter (principal); E11.65 Type 2 diabetes mellitus with hyperglycemia; R00.0 Tachycardia, unspecified

== ENCOUNTER → 2024-02-15 14:13 | Outpatient (BNVA) | payer OTHER, SELFPAY | PROVIDERS: PCP Internal Medicine; Visit Provider Physician Assistant Medical | DX: E11.65 Type 2 diabetes mellitus with hyperglycemia (principal); I48.92 Unspecified atrial flutter; R00.0 Tachycardia, unspecified; Z79.4 Long term (current) use of insulin | CPT/HCPCS: 82947; 99212 ==

== ENCOUNTER 2024-02-18 13:11 | Inpatient (IN) | payer OTHER, SELFPAY ==
--- NOTE | ~2024-02-18 | XR_ITS ---
EXAMINATION: XR CHEST 2:16 PM CLINICAL INFORMATION: chest pain COMPARISON: 01/22/2024 TECHNIQUE: Frontal view of the chest was obtained. FINDINGS: There are low lung volumes. The cardiac silhouette is magnified by the AP position. The lungs are grossly clear. XR/XR chest 1V IMPRESSION: Grossly clear portable AP chest x-ray. Electronically signed by: Jason Radford MD 02/18/2024 02:46 PM [facility] [place]
--- NOTE | 2024-02-18 13:18 | ECG_ITS ---
Test Reason : chest pain Blood Pressure : / mmHG Vent. Rate : 099 BPM Atrial Rate : 099 BPM P-R Int : 156 ms QRS Dur : 102 ms QT Int : 362 ms P-R-T Axes : 067 069 -17 degrees QTc Int : 464 ms Sinus rhythm with Premature atrial complexes T wave abnormality, consider inferior ischemia Prolonged QT Abnormal ECG When compared with ECG of 21-JAN-2024 22:54, Significant changes have occurred Referred By: Curtis Covington Electronically Signed By:SAMIRA TAYLOR MD
[2024-02-18 13:20] VITALS: BP 111/83; BP 119/68; PULSE 118; PULSE 97; RESP 22; TEMP 36.7; O2SAT 96; O2SAT 98; BMI 46.4
[2024-02-18] MEDS: Amiodarone HCL 900 MG in 0.9 % Sodium Chloride 500 ML 34.53 MG IVCONT (13:41)
[2024-02-18 13:42] LABS: MANUAL DIFF FLAG NO
[2024-02-18 13:44] LABS: Basophils Percent Auto 0.4 % (0-2); Eosinophils Absolute Auto 0.1 X10*3/uL (0.0-0.4); Eosinophils Percent Auto 0.9 % (0-4); Hemoglobin 13.6 g/dl (14.0-18.0); Imm Gran Abs Auto 0.04 X10*3/uL (0.00-0.03); Imm Gran Pct Auto 0.5 % (0.0-0.4); Lymphocytes Absolute Auto 1.4 X10*3/uL (1.2-4.9); Lymphocytes Percent Auto 16.9 % (20-40); Mean Corpuscular HGB Conc 33.2 g/dl (31.0-36.0); Mean Corpuscular Hemoglobin 30.4 pg (27.0-33.0); Mean Corpuscular Volume 91.5 fL (80.0-98.0); Monocytes Absolute Auto 0.5 X10*3/uL (0.1-1.2); Monocytes Percent Auto 5.5 % (2-11); Neutrophils Absolute Auto 6.4 x10*3/uL (2.0-8.3); Neutrophils Percent Auto 75.8 % (45-73); Platelet Count 279 X10*3/uL (160-400); Red Blood Count 4.48 X10*6/uL (4.60-5.80); Red Cell Distribution Width 12.3 % (11.0-16.0); White Blood Count 8.5 X10*3/uL (4.8-10.8)
--- NOTE | 2024-02-18 13:46 | ED.ARRPALP ---
HPI - Arrhythmia/Palpitations General Chief Complaint: Arrhythmia/Palpitations Stated Complaint: RESP DISTRESS,VTACH [id number] NOW PER EMS Time Seen by Provider: 02/18/24 13:38 Source: EMS Mode of arrival: EMS History of Present Illness HPI narrative: Pt state was feeling dizzy with near syncopal symptoms flagged an ambulance ,he was in V tach was defibrillated to NSR got 150 of amiodarone prehospital now in sinus rythm . He has hx of DM and substance abuse MD complaint: palpitations Onset (ago): hour(s) (1) Duration: now resolved Severity: severe Context: occurred during rest Arrhythmia history: atrial fibrillation Associated symptoms: shortness of breath Treatments prior to arrival: other (amiodarone and cardioversion) Related Data Home Medications ?Medication ?Instructions ?Recorded ?Confirmed buspirone 30 mg tablet 30 mg PO BID 06/12/23 01/22/24 escitalopram oxalate 20 mg tablet 20 mg PO DAILY 06/28/23 01/22/24 metformin 1,000 mg tablet 1,000 mg PO BID 06/28/23 01/22/24 metoprolol succinate 100 mg 100 mg PO DAILY 06/28/23 01/22/24 tablet,extended release 24 hr semaglutide 1 mg/dose (4 mg/3 mL) 1 mg subcut MO 01/22/24 01/22/24 subcutaneous pen injector (Ozempic) blood sugar diagnostic (FreeStyle #10 ea 02/15/24 Lite Strips) Previous Rx's ?Medication ?Instructions ?Recorded clotrimazole-betamethasone 1 1 appl topical BID PRN balanitis 08/24/23 %-0.05 % topical cream #45 grams blood-glucose meter,continuous #1 ea 08/27/23 (Dexcom G7 Consumer Loan Manager) pen needle, diabetic 31 gauge x #100 ea 09/18/23 3/16 (BD Ultra-Fine Mini Pen Needle) lidocaine 5 % topical patch 2 patch topical DAILY #30 ea 11/15/23 albuterol sulfate 90 mcg/actuation 2 puff inhalation Q4-6H PRN 11/22/23 aerosol inhaler (Ventolin HFA) wheezing and/or shortness of breath #8.5 grams ROLLATOR #1 ea 12/11/23 sodium chloride 0.65 % nasal spray 2 spray intranasal QID PRN dry 12/11/23 aerosol (Saline Nasal) nasal passages #44 mL apixaban 5 mg tablet (Eliquis) 5 mg PO BID 30 days #60 tabs 01/14/24 blood-glucose sensor (Dexcom G7 #3 ea 01/14/24 Sensor device) zolpidem 10 mg tablet 10 mg PO BEDTIME PRN insomnia #30 01/14/24 tabs diltiazem HCl 240 mg 240 mg PO DAILY #30 caps 01/23/24 capsule,extended release 24 hr (Cardizem CD) insulin glargine 100 unit/mL (3 60 unit (0.6 mL) subcut DAILY 30 02/15/24 mL) subcutaneous pen (Lantus days #30 mL Solostar U-100 Insulin) tramadol 50 mg tablet 50 mg PO TID PRN pain 30 days #90 02/18/24 tabs Allergies Allergy/AdvReac Type Severity Reaction Status Date / Time Penicillins [PENICILLINS] Allergy Unknown RASH Verified 02/18/24 13:23 Review of Systems Constitutional: Constitutional: Reports no additional constitutional complaints Cardiovascular: Cardiovascular: Reports as per [facility] Past Medical History Attestation statement: The following information was validated with the patient. Source: unable to obtain Medical History Tachycardia Type 2 diabetes mellitus with hyperglycemia Paroxysmal atrial fibrillation Morbid obesity Substance abuse Essential hypertension Cocaine abuse Erectile dysfunction Polysubstance abuse Paroxysmal atrial fibrillation with rapid ventricular response Lumbar degenerative disc disease Substance abuse Diabetes Depression Overactive bladder Arthritis BPH (benign prostatic hyperplasia) Asthma Seizure Morbid obesity with BMI of 40.0-44.9, adult Benign essential hypertension Insomnia Primary osteoarthritis of both knees Anxiety Family history of thyroid disorder Surgical History No history of previous surgery Family History Family History Father ETOH abuse Mother Diabetes Arthritis of knee Hypertension Other Mental health problem Substance abuse Social History Social History Household Members: None Household Members Other:: rents a room in a house Housing: House Housing Other:: rents a room Alcohol intake: current Alcohol intake frequency: does not drink Comment: refused bed alarm Patient Tobacco Use Status: Never used Tobacco Smoked in Last 30 Days: No e-Cigarette/Vaping Use: Never Used Second Hand Smoke Exposure: No Use of substances other than those prescribed or required for medical reasons: Yes Substance Use Type: Heroin Substance Use Frequency: Daily Advance Directives: Yes Advance Directives on File: Yes Advance Directives Date on File: 02/23/22 service: No Current occupational status: unemployed and disabled Sexual orientation: Straight/Heterosexual Cognitive needs: No Hearing needs: No Vision needs: No Physical Exam Vital Signs: Vital Signs: Last Vital Signs Temp 98.0 F 02/18/24 13:20 Pulse 102 H 02/18/24 14:05 Resp 22 H 02/18/24 14:05 BP 102/67 02/18/24 14:05 Pulse Ox 96 02/18/24 14:05 O2 Del Method Room Air 02/18/24 14:05 Oxygen Flow Rate 2 02/18/24 13:20 BMI result Body Mass Index 46.4 Const: General: comfortable and no acute distress Nutritional Appearance: well nourished HEENT: Head: Yes normal to inspection Face and sinus: Yes normal facial exam Neck: Neck: Yes normal visual inspection Chest: Chest palpation & inspection: normal inspection of the chest Resp: Effort & Inspection: normal respiratory effort Cardio: Jugular venous distension: no JVD Rate: regular rate Rhythm: regular rhythm GI: Inspection: Yes normal to inspection Palpation (GI): Soft to palpation, not firm, nontender and no guarding Auscultation: normal bowel sounds Skin: General skin exam: no rashes or lesions noted Lesions: no lesions Rashes: no rashes Extrem: General: Yes normal to inspection and Yes full ROM Course Reevaluation(s) Reevaluation #1: case d/w syrup shed supervisor Dr Rivas will see pt in ED,per syrup shed supervisor does not need to be transferred to [facility].Can be admited to [facility] [place] [facility] Time: 15:02 Reevaluation #2: Spoke with Dr Gunter hospitalist can not accept pt till seen by syrup shed supervisor Time: 15:03 Reevaluation #3: seen by syrup shed supervisor in ED he thinks that rhythm was aflutter with aberrancy Time: 16:09 Medications Administered Generic Name Dose Route Start Last Admin Trade Name Freq PRN Reason Stop Dose Admin Amiodarone HCl 900 mg/ Sodium 518 mls @ 34.533 mls/hr 02/18/24 13:30 02/18/24 13:41 Chloride IVCONT 1 mg/min .Q15H1M SCOTTY 34.53 mls/hr Administration Protocol 1 MG/MIN Discontinued Medications Generic Name Dose Route Start Last Admin Trade Name Freq PRN Reason Stop Dose Admin Insulin Human Lispro 10 unit 02/18/24 14:10 02/18/24 14:25 Insulin Lispro 100 Unit/Ml 3 Ml Vial SUBCUT 02/18/24 14:11 10 unit ONCE ONE Administration Medical Decision Making Medical Decision Making [facility] Narrative: patient presented via V-tach he was cardioverted in the field, will check labs EKG Differential Diagnosis Differential Diagnoses: The differential diagnosis associated with the presentation includes hypokalemia / hypomagnesemia/ marisol Admission/Observation Consideration of admission/observation: Escalation of care including admission/observation considered Consult Healthcare Provider Management of the patient was discussed with: Airplane Dispatcher Forensic Economist Dr Rivas Lab Data MDM Lab Attestation statement: I reviewed the patient's lab results. 02/18/24 13:38 02/18/24 13:38 Labs: Lab Results 02/18/24 02/18/24 02/18/24 Range/Units 13:38 13:57 15:30 WBC 8.5 (4.8-10.8) X10*3/uL RBC 4.48 L (4.60-5.80) X10*6/uL Hgb 13.6 L (14.0-18.0) g/dl Hct 41.0 L (42.0-52.0) % MCV 91.5 (80.0-98.0) fL MCH 30.4 (27.0-33.0) pg MCHC 33.2 (31.0-36.0) g/dl RDW 12.3 (11.0-16.0) % Plt Count 279 (160-400) X10*3/uL MPV 10.0 (9.4-12.4) fL Immature Gran % (Auto) 0.5 H (0.0-0.4) % Neut % (Auto) 75.8 H (45-73) % Lymph % (Auto) 16.9 L (20-40) % [place] % (Auto) 5.5 (2-11) % Eos % (Auto) 0.9 (0-4) % Baso % (Auto) 0.4 (0-2) % Lymph # (Auto) 1.4 (1.2-4.9) X10*3/uL [place] # (Auto) 0.5 (0.1-1.2) X10*3/uL Eos # (Auto) 0.1 (0.0-0.4) X10*3/uL Baso # (Auto) 0.0 (0.0-0.2) X10*3/uL Abs Immat Gran (auto) 0.04 H (0.00-0.03) X10*3/uL Absolute Neuts (auto) 6.4 (2.0-8.3) x10*3/uL Absolute Nucleated RBC 0.000 (0.0-0.012) X10*3/uL Nucleated RBC % (auto) 0.0 (0.0-0.2) /100WBC Sodium 133 L (135-145) mmol/L Potassium 4.0 (3.3-5.1) mmol/L Chloride 103 (96-108) mmol/L Carbon Dioxide 23 (22-29) mmol/L Anion Gap 11 L (12-20) BUN 12 (9-16) mg/dL Creatinine 0.86 (0.5-1.4) mg/dL Estim Creat Clear Calc 151.7 Estimated GFR > 60 POC Glucose 347 H (60-115) mg/dL Random Glucose 436 H* (60-115) mg/dL Calcium 9.0 (8.4-10.2) mg/dL Magnesium 1.9 (1.6-2.6) mg/dL Total Bilirubin 0.6 (0.0-1.0) mg/dL AST 134 H (5-37) U/L ALT 134 H (0-40) U/L Alkaline Phosphatase 115 (39-117) U/L Troponin I High Sens < 2.7 D (<3.5-35.0) ng/L Total Protein 6.4 L (6.5-8.0) g/dL Albumin 3.6 (3.5-5.0) g/dL Urine Opiates Screen POSITIVE H (Not Detect) Ur Buprenorphine Scrn Not Detected (Not Detect) ng/mL Ur Oxycodone Screen Not Detected (Not Detect) ng/mL Urine Methadone Screen Not Detected (Not Detect) ng/mL Urine Fentanyl Screen POSITIVE H (Not Detect) Ur Barbiturates Screen Not Detected (Not Detect) Ur Phencyclidine Scrn Not Detected (Not Detect) Ur Amphetamines Screen Not Detected (Not Detect) U Benzodiazepines Scrn Not Detected (Not Detect) Urine Cocaine Screen Not Detected (Not Detect) U Marijuana (THC) Screen POSITIVE H (Not Detect) Independent Interpretation I performed an independent interpretation of an: EKG Interpretation: NSR 99 no ischemia Radiology Impression Discussion of test interpretation with radiology: I have reviewed the radiologist's reading. Radiologist Impression: I reviewed interpreted the chest x-ray as an not acute disease Independent Historian Clinical information obtained from an independent historian. History obtained from or confirmed by: EMS EMS External Record Review External record reviewed: Inpatient record Chronic Conditions Patient?s care impacted by: Diabetes Social Determinants drug abuse Critical Care Time Critical Care Time Critical Care Time: Yes Total Critical Care Time: 60 Attestation: vtach ,iv amiodarone Discharge Plan Discharge Clinical Impression: Near syncope, Atrial flutter with rapid ventricular response Patient Disposition: Admitted As Inpatient Print Language: Israeli
[2024-02-18 14:05] VITALS: BP 102/67; PULSE 102; RESP 22; O2SAT 96
[2024-02-18 14:07] LABS: Alanine Aminotransferase 134 U/L (0-40); Albumin Level 3.6 g/dL (3.5-5.0); Alkaline Phosphatase 115 U/L (39-117); Anion Gap 11 (12-20); Aspartate Amino Transferase 134 U/L (5-37); Bilirubin Total 0.6 mg/dL (0.0-1.0); Blood Urea Nitrogen 12 mg/dL (9-16); Carbon Dioxide 23 mmol/L (22-29); Chloride 103 mmol/L (96-108); Creatinine Clr Calc Pharmacy 151.7; Estimated Glomerular Filt Rate > 60; Magnesium 1.9 mg/dL (1.6-2.6); Sodium 133 mmol/L (135-145); Total Protein 6.4 g/dL (6.5-8.0)
--- NOTE | 2024-02-18 14:08 | PC.NURSE ---
Amio gtt started at 1mg/min per protocol. Pt denies any associated sx at this time. Breathing even and unlabored. Skin pink warm and dry. NSR on tele at times tachy in low 100s. Pt declines second IV access at this time, will re attempt. Pt on pacer pads for precaution. VSS
[2024-02-18 14:10] LABS: Glucose Random 436 mg/dL (60-115)
[2024-02-18 14:14] LABS: Troponin-I High Sensitivity < 2.7 ng/L (<3.5-35.0)
[2024-02-18 14:18] LABS: Amphetamine Screen Urine Not Detected (Not Detect); Barbiturates, Urine Not Detected (Not Detect); Benzodiazepines Screen Urine Not Detected (Not Detect); Buprenorphine Scr Not Detected (Not Detect); Cannabinoid Screen Urine POSITIVE (Not Detect); Cocaine Screen Urine Not Detected (Not Detect); Fentanyl, urine POSITIVE (Not Detect); Methadone Screen, Urine Not Detected (Not Detect); Opiate Screen Urine POSITIVE (Not Detect); Oxycodone Screen Urine Not Detected (Not Detect); Phencyclidine Screen Urine Not Detected (Not Detect)
[2024-02-18] MEDS: Insulin Lispro 100 UNIT/ML 3 ML VIAL 10 UNIT SUBCUT (14:25)
[2024-02-18 15:34] LABS: Glucose, Whole Blood 347 mg/dL (60-115)
--- NOTE | 2024-02-18 16:10 | PM.CNCAR ---
History of Present Illness History of Present Illness Date of Service: 02/18/24 Requesting physician: Curtis Covington Consult reason: other (Wide complex tachycardia) Chief complaint: RESP DISTRESS,VTACH 280-300,118 NOW PER EMS Narrative: I was consulted to see Herman in cardiology consultation today for wide complex tachycardia treated in the feel with synchronized cardioversion. Patient was 53-year-old male with prior history of diabetes, not well controlled, PTSD, hypertension, obesity, atrial flutter with rapid ventricular response, admitted in January with not feeling well and at that time was noted to be atrial flutter with rapid ventricular response. Treated with Cardizem and metoprolol subsequently discharged home. No echocardiogram has seen in the system no ischemic workup. Patient says since then he has been taking his medication but does not recall the names. Although he recalls taking Eliquis twice a day. He has prior history of polysubstance abuse although currently says he is not using cocaine but using marijuana. He was because of his psychiatric illness put on methadone which she is currently taking. Today he was coming into the clinic and was not feeling well, feeling lightheaded and felt like he was not going to make it and felt very short of breath he then flat down the EMS who got to him and noted him to be in wide complex tachycardia going at about 280 beats per minute. He was subsequently given synchronized cardioversion in the ambulance without sedation. Converted back to sinus rhythm and immediately started feeling well. It was a single lead rhythm strip and therefore unclear whether this represents VT or atrial flutter with aberrancy. He says that he has been taking all his medication although does not know his medications. No changes in health. He said over the last couple months he has been feeling lightheaded and dizzy. No obvious chest pain. Syncopal episode although he felt near syncopal today. Review of Systems Constitutional: Constitutional: Reports no additional constitutional complaints Cardiovascular: Cardiovascular: Denies chest pain, Reports lightheadedness, Denies palpitations, Reports dyspnea and Reports dyspnea on exertion Respiratory: Respiratory: Reports no additional respiratory complaints, Reports dyspnea and Reports dyspnea on exertion Genitourinary: Genitourinary: Reports no additional male genitourinary complaints Musculoskeletal: Musculoskeletal: Reports no additional musculoskeletal complaints Neurologic: Reports system reviewed and no additional complaints, except as documented Psychiatric: Psychiatric: Reports no additional psychiatric complaints Endocrine: Endocrine: Reports no additional endocrine complaints and Denies palpitations PMFSH Past Medical History Medical History Tachycardia Type 2 diabetes mellitus with hyperglycemia Paroxysmal atrial fibrillation Morbid obesity Substance abuse Essential hypertension Cocaine abuse Erectile dysfunction Polysubstance abuse Paroxysmal atrial fibrillation with rapid ventricular response Lumbar degenerative disc disease Substance abuse Diabetes Depression Overactive bladder Arthritis BPH (benign prostatic hyperplasia) Asthma Seizure Morbid obesity with BMI of 40.0-44.9, adult Benign essential hypertension Insomnia Primary osteoarthritis of both knees Anxiety Family history of thyroid disorder Family History Family History Father ETOH abuse Mother Diabetes Arthritis of knee Hypertension Other Mental health problem Substance abuse Surgical History Surgical History No history of previous surgery Social History Social History Household Members: None Household Members Other:: rents a room in a house Housing: House Housing Other:: rents a room Alcohol intake: current Alcohol intake frequency: does not drink Comment: refused bed alarm Patient Tobacco Use Status: Never used Tobacco Smoked in Last 30 Days: No e-Cigarette/Vaping Use: Never Used Second Hand Smoke Exposure: No Use of substances other than those prescribed or required for medical reasons: Yes Substance Use Type: Heroin Substance Use Frequency: Daily Advance Directives: Yes Advance Directives on File: Yes Advance Directives Date on File: 02/23/22 service: No Current occupational status: unemployed and disabled Sexual orientation: Straight/Heterosexual Cognitive needs: No Hearing needs: No Vision needs: No Meds Allergies Allergy/AdvReac Type Severity Reaction Status Date / Time Penicillins [PENICILLINS] Allergy Unknown RASH Verified 02/18/24 13:23 Active Medications: Current Medications Amiodarone HCl 900 mg/ Sodium (Chloride) 518 mls @ 34.533 mls/hr IVCONT .Q15H1M [facility]; Protocol Last Admin: 02/18/24 13:41 Dose: 1 mg/min, 34.53 mls/hr Home Medications ?Medication ?Instructions ?Recorded ?Confirmed ?Last Taken ?Type buspirone 30 mg tablet 30 mg PO BID 06/12/23 01/22/24 01/21/24 History escitalopram oxalate 20 mg tablet 20 mg PO DAILY 06/28/23 01/22/24 01/21/24 History metformin 1,000 mg tablet 1,000 mg PO BID 06/28/23 01/22/24 01/21/24 History metoprolol succinate 100 mg 100 mg PO DAILY 06/28/23 01/22/24 01/21/24 History tablet,extended release 24 hr semaglutide 1 mg/dose (4 mg/3 mL) 1 mg subcut MO 01/22/24 01/22/24 01/21/24 History subcutaneous pen injector (Ozempic) blood sugar diagnostic (FreeStyle #10 ea 02/15/24 Unknown History Lite Strips) Physical Exam Vital Signs: Vital Signs: Last Vital Signs Temp 98.0 F 02/18/24 13:20 Pulse 102 H 02/18/24 14:05 Resp 22 H 02/18/24 14:05 BP 102/67 02/18/24 14:05 Pulse Ox 96 02/18/24 14:05 O2 Del Method Room Air 02/18/24 14:05 Oxygen Flow Rate 2 02/18/24 13:20 BMI result Body Mass Index 46.4 Const: General: cooperative, comfortable, no acute distress, alert and awake Nutritional Appearance: obese Orientation/consciousness: patient oriented x3 Limitations: no limitations HEENT: Head: Yes normocephalic and Yes atraumatic Neck: Neck: Yes trachea midline, Yes supple and Yes no JVD Resp: Effort & Inspection: normal respiratory effort Auscultation: clear to auscultation bilaterally Cardio: Jugular venous distension: no JVD Palpation: normal PMI Rate: regular rate Rhythm: regular rhythm Heart sounds: S1 normal heart sound present, S2 normal heart sound present, no click, no gallops, no murmurs and no rubs GI: Inspection: Yes obesity Auscultation: normal bowel sounds Skin: General skin exam: no rashes or lesions noted Neuro: General: patient oriented x3 and no focal motor deficits Extrem: General: Yes no clubbing, cyanosis or edema Psych: Appearance: grossly normal Objective Labs and Meds 02/18/24 13:38 02/18/24 13:38 Lab results: Laboratory Results - last 24 hr 02/18/24 02/18/24 02/18/24 13:38 13:57 15:30 WBC 8.5 RBC 4.48 L Hgb 13.6 L Hct 41.0 L MCV 91.5 MCH 30.4 MCHC 33.2 RDW 12.3 Plt Count 279 MPV 10.0 Immature Gran % (Auto) 0.5 H Neut % (Auto) 75.8 H Lymph % (Auto) 16.9 L [place] % (Auto) 5.5 Eos % (Auto) 0.9 Baso % (Auto) 0.4 Lymph # (Auto) 1.4 [place] # (Auto) 0.5 Eos # (Auto) 0.1 Baso # (Auto) 0.0 Abs Immat Gran (auto) 0.04 H Absolute Neuts (auto) 6.4 Absolute Nucleated RBC 0.000 Nucleated RBC % (auto) 0.0 Sodium 133 L Potassium 4.0 Chloride 103 Carbon Dioxide 23 Anion Gap 11 L BUN 12 Creatinine 0.86 Estim Creat Clear Calc 151.7 Estimated GFR > 60 POC Glucose 347 H Random Glucose 436 H* Calcium 9.0 Magnesium 1.9 Total Bilirubin 0.6 AST 134 H ALT 134 H Alkaline Phosphatase 115 Troponin I High Sens < 2.7 D Total Protein 6.4 L Albumin 3.6 Urine Opiates Screen POSITIVE H Ur Buprenorphine Scrn Not Detected Ur Oxycodone Screen Not Detected Urine Methadone Screen Not Detected Urine Fentanyl Screen POSITIVE H Ur Barbiturates Screen Not Detected Ur Phencyclidine Scrn Not Detected Ur Amphetamines Screen Not Detected U Benzodiazepines Scrn Not Detected Urine Cocaine Screen Not Detected U Marijuana (THC) Screen POSITIVE H Imaging Radiologist's impression: Impressions Chest X-Ray 02/18/24 14:20 IMPRESSION: Grossly clear portable AP chest x-ray. Electronically signed by: Jason Radford MD 02/18/2024 02:46 PM [facility] Assessment and Plan (1) Wide-complex tachycardia: Status: Acute Wide [facility] symptoms of near-syncope with fast heart rate and shortness of breath with synchronized cardioversion converted quickly to sinus rhythm. Clinically doing well. No ischemic symptoms prior to that and subsequent EKG does not show any acute ischemia with troponin being within normal limits. Wide complex tachycardia could represent monomorphic ventricular tachycardia versus atrial flutter with rapid ventricular response with aberrancy. Unclear based on a single lead EKG. At this point time I would continue with amiodarone drip. Patient can be admitted to cardiac telemetry IMC floor. Patient is not having any acute ischemia at this point time. Will need however workup for structural heart disease as an inpatient. This was discussed with him. Importance of compliance with treatment plan was discussed. Request an echocardiogram to assess for LV systolic and diastolic function. I would also suggest him to undergo a myocardial perfusion imaging while inpatient. Continue aggressive risk factor modification. Importance of lifestyle modification was discussed. Diabetes and blood pressure management as per the hospitalist team. Will continue metoprolol therapy and hold off on Cardizem therapy for now. Continue full oral anticoagulation with Eliquis. Will follow with you Procedures Date of Service Date of Service: 02/18/24
--- NOTE | 2024-02-18 16:29 | PM.IMHP ---
History of Present Illness Date of Service: 02/18/24 Chief Complaint: presyncope 53M PMH pafib, dm, morbid obesity, polysubstance dependence, mood idosrder, HTN, presented with presyncope. Patient states he was walking uphill outside and started becoming short of breath, diaphoretic, dizzy felt like he was going to pass out raised his hand for help and some called EMS. EMS arrived and found patient to be in wide complex tachycardia and shocked patient who converted to sinus rhythm. Patient never lost consciousness. Feels close to baseline now. In ED was initiated on amiodarone drip. Review of Systems Review of Systems: Yes all other systems are reviewed and are negative [facility] Medical History Tachycardia Type 2 diabetes mellitus with hyperglycemia Paroxysmal atrial fibrillation Morbid obesity Substance abuse Essential hypertension Cocaine abuse Erectile dysfunction Polysubstance abuse Paroxysmal atrial fibrillation with rapid ventricular response Lumbar degenerative disc disease Substance abuse Diabetes Depression Overactive bladder Arthritis BPH (benign prostatic hyperplasia) Asthma Seizure Morbid obesity with BMI of 40.0-44.9, adult Benign essential hypertension Insomnia Primary osteoarthritis of both knees Anxiety Family history of thyroid disorder Family History Father ETOH abuse Mother Diabetes Arthritis of knee Hypertension Other Mental health problem Substance abuse Surgical History No history of previous surgery Social History Household Members: None Household Members Other:: rents a room in a house Housing: House Housing Other:: rents a room Alcohol intake: current Alcohol intake frequency: does not drink Comment: refused bed alarm Patient Tobacco Use Status: Never used Tobacco Smoked in Last 30 Days: No e-Cigarette/Vaping Use: Never Used Second Hand Smoke Exposure: No Use of substances other than those prescribed or required for medical reasons: Yes Substance Use Type: Heroin Substance Use Frequency: Daily Advance Directives: Yes Advance Directives on File: Yes Advance Directives Date on File: 02/23/22 service: No Current occupational status: unemployed and disabled Sexual orientation: Straight/Heterosexual Cognitive needs: No Hearing needs: No Vision needs: No Meds Allergies Allergy/AdvReac Type Severity Reaction Status Date / Time Penicillins [PENICILLINS] Allergy Unknown RASH Verified 02/18/24 13:23 Active Medications: Current Medications Amiodarone HCl 900 mg/ Sodium (Chloride) 518 mls @ 34.533 mls/hr IVCONT .Q15H1M SCOTTY; Protocol Last Admin: 02/18/24 13:41 Dose: 1 mg/min, 34.53 mls/hr Home Medications ?Medication ?Instructions ?Recorded ?Confirmed ?Last Taken ?Type buspirone 30 mg tablet 30 mg PO BID 06/12/23 02/18/24 02/17/24 History escitalopram oxalate 20 mg tablet 20 mg PO DAILY 06/28/23 02/18/24 02/17/24 History metformin 1,000 mg tablet 1,000 mg PO BID 06/28/23 02/18/24 02/17/24 History semaglutide 1 mg/dose (4 mg/3 mL) 1 mg subcut PINTO 01/22/24 02/18/24 02/17/24 History subcutaneous pen injector (Ozempic) blood sugar diagnostic (FreeStyle #10 ea 02/15/24 Unknown History Lite Strips) insulin glargine 100 unit/mL (3 60 unit subcut BEDTIME 02/18/24 02/18/24 02/17/24 History mL) subcutaneous pen (Lantus Solostar U-100 Insulin) lidocaine 5 % topical patch 2 patch topical DAILY PRN Pain 02/18/24 02/18/24 Unknown History Physical Exam Vital Signs and Narrative: Vital Signs: Last Vital Signs Temp 98.0 F 02/18/24 13:20 Pulse 102 H 02/18/24 14:05 Resp 22 H 02/18/24 14:05 BP 102/67 02/18/24 14:05 Pulse Ox 96 02/18/24 14:05 O2 Del Method Room Air 02/18/24 14:05 Oxygen Flow Rate 2 02/18/24 13:20 BMI result Body Mass Index 46.4 General: AO X 3, no acute distress Resp: CTA bilateral, no accessory muscles used CVS: S1,S2,RRR GI: soft, non tender, non distended Neuro: motor grossly intact, alert Psych: appropriate affect, appropriate insight Results Labs 02/18/24 13:38 02/18/24 13:38 Labs: Laboratory Results - last 24 hr 02/18/24 02/18/24 02/18/24 13:38 13:57 15:30 MCV 91.5 MCH 30.4 MCHC 33.2 RDW 12.3 Plt Count 279 MPV 10.0 Immature Gran % (Auto) 0.5 H Neut % (Auto) 75.8 H Lymph % (Auto) 16.9 L [place] % (Auto) 5.5 Eos % (Auto) 0.9 Baso % (Auto) 0.4 Lymph # (Auto) 1.4 [place] # (Auto) 0.5 Eos # (Auto) 0.1 Baso # (Auto) 0.0 Abs Immat Gran (auto) 0.04 H Absolute Neuts (auto) 6.4 Absolute Nucleated RBC 0.000 Nucleated RBC % (auto) 0.0 Anion Gap 11 L Estim Creat Clear Calc 151.7 Estimated GFR > 60 POC Glucose 347 H Random Glucose 436 H* Calcium 9.0 Magnesium 1.9 Total Bilirubin 0.6 AST 134 H ALT 134 H Alkaline Phosphatase 115 Troponin I High Sens < 2.7 D Total Protein 6.4 L Albumin 3.6 Urine Opiates Screen POSITIVE H Ur Buprenorphine Scrn Not Detected Ur Oxycodone Screen Not Detected Urine Methadone Screen Not Detected Urine Fentanyl Screen POSITIVE H Ur Barbiturates Screen Not Detected Ur Phencyclidine Scrn Not Detected Ur Amphetamines Screen Not Detected U Benzodiazepines Scrn Not Detected Urine Cocaine Screen Not Detected U Marijuana (THC) Screen POSITIVE H Imaging Radiologist's Impressions: Impressions Chest X-Ray 02/18/24 14:20 IMPRESSION: Grossly clear portable AP chest x-ray. Electronically signed by: Jason Radford MD 02/18/2024 02:46 PM [facility] [place] Assessment and Plan (1) Wide-complex tachycardia: Status: Acute Plan 53M PMH pafib, dm, morbid obesity, polysubstance dependence, mood idosrder, HTN, presented with presyncope Presyncope due to wide complex tachycardia Cardiology appreciated, monomorphic VT versus AFib with aberrancy Continue amiodarone, Eliquis, check echo Diabetes with hyperglycemia Basal bolus insulin Morbid obesity Weight loss recommended Mood disorder buspirone DVT prophylaxis with Eliquis Full Code Patient with possible high-risk arrhythmia therefore expected require at least 2 midnights inpatient Quality Stroke Does the patient have a stroke diagnosis?: No VTE Prior VTE?: No VTE Risk Level:: Medical - moderate - high VTE Device Contraindication: Treatment Not Indicated VTE Drug Contraindication: N/A - Med Ordered
[2024-02-18 16:43] VITALS: BP 117/74; PULSE 86; RESP 14; O2SAT 96
[2024-02-18 17:23] LABS: Glucose, Whole Blood 346 mg/dL (60-115)
--- NOTE | 2024-02-18 17:31 | PHA.MEDREC ---
Addendum entered by Danna Houston shahla 02/18/24 17:47: REVIEWED Original Note: Pharmacy Consult ? Medication Reconciliation Pharmacy has completed the medication reconciliation. Spoke with patient to confirm medications. He confirmed his Eliquis 5mg tab 1 BID. He confirmed he is taking the Insulin Lispro and confirmed he is injecting 60 units at bedtime. He confirmed he is still using Ozempic once a week and confirmed he takes it on Sundays and confirmed he took it Friday 02/16. He confirmed he took all his medications yesterday.
[2024-02-18] MEDS: Insulin Lispro 100 UNIT/ML 3 ML VIAL SUBCUT ×2 (17:56→22:22)
[2024-02-18 18:00] VITALS: BP 141/72; PULSE 85; RESP 14; O2SAT 98
[2024-02-18 20:19] VITALS: BP 126/73; PULSE 79; RESP 15; TEMP 36.4; O2SAT 97
[2024-02-18 21:57] LABS: Glucose, Whole Blood 275 mg/dL (60-115)
[2024-02-18] MEDS: Apixaban 5 MG TABLET PO (22:21)
[2024-02-18] MEDS: Insulin Glargine,Hum.rec.anlog 100 UNIT/ML 10 ML VIAL 30 UNIT SUBCUT (22:22)
--- NOTE | 2024-02-19 | ECG_ITS ---
Test Reason : On amiodarone Blood Pressure : / mmHG Vent. Rate : 073 BPM Atrial Rate : 073 BPM P-R Int : 170 ms QRS Dur : 100 ms QT Int : 406 ms P-R-T Axes : 063 054 -09 degrees QTc Int : 447 ms Normal sinus rhythm Abnormal QRS-T angle, consider primary T wave abnormality Abnormal ECG When compared with ECG of 18-FEB-2024 13:25, Premature atrial complexes are no longer Present Referred By: Mario Rivas Electronically Signed By:MARIO RIVAS MD
[2024-02-19 05:02] LABS: Glucose, Whole Blood 169 mg/dL (60-115)
--- NOTE | 2024-02-19 07:00 | CA_ITS ---
Transthoracic Echocardiogram Patient (Last, First, Middle): Herman Nelson, Gender: Male Date of : 1970 Age: 53 Procedure Date: 02/19/2024 Procedure Type: Transthoracic Echocardiogram Location: [facility] [place] Height: 180.34 cm Weight: 139.26 kg BSA: 2.53 m2 Heart Rate: bpm BP: 126 / 73 mmHg Civil Service Worker: Referring MD: Kaden Gunter MD Clamp Remover: Mario Rivas MD Symptoms: wide complex tach Study Quality: Fair, Contrast used ECG Rhythm: Sinus Conclusions: - 1. Normal LV ejection fraction 55-60% with mild LVH with pseudonormal filling pattern 2. Mildly dilated right ventricle 3. Mildly dilated left atrium 4. Normal cardiac valvular Dopplers 5. Normal RV systolic pressure with elevated right atrial pressures Findings Procedure Information Contrast agent, definity, is being given per protocol without apparent complications. Left Ventricle Normal left ventricular size and systolic function. There is mildly increased left ventricular wall thickness. The visually estimated ejection fraction is between 55-60%. Spectral Doppler is indicative of a pseudonormal filling pattern. E/E prime ratio is between 8 and 15 consistent with indeterminate filling pressures. Right Ventricle Mildly increased right ventricular cavity size. There is normal right ventricular systolic function. Atria The left atrium is mildly dilated. Interatrial shunt cannot be excluded. The right atrium was not well visualized. Aortic Valve The aortic valve was not well visualized. There is no aortic valve stenosis. There is no aortic valve regurgitation. Mitral Valve Likely normal mitral valve structure and function. There is trace mitral valve regurgitation. There is no mitral valve stenosis. Pulmonic Valve The pulmonic valve was not well visualized. Tricuspid Valve Likely normal tricuspid valve structure and function. There is mild tricuspid valve regurgitation. The right ventricular systolic pressure is 28 mmHg. Mildly elevated right atrial pressure. There is no evidence of pulmonary hypertension. Great Vessels The aorta was not well visualized. The pulmonary artery was not well visualized. There is no dilatation of the ascending aorta. Venous The inferior vena cava is moderately dilated and collapses less than 50% with inspiration. Pericardium/Pleural The pericardium was not well visualized. Measurements 2D Linear Measurements IVSd: 1.32 0.6-0.9/0.6-1.0 cm LVIDd: 5.19 3.9-5.3/4.2-5.9 cm LVIDd Index: 2.05 2.4-3.2/2.2-3.1 cm/m2 LVIDs: 3.37 2.0-3.6 cm LVPWd: 1.33 0.7-1.1 cm Ao Root: 2.90 2.1-3.5 cm LA Diam: 4.60 2.7-3.8/3.0-4.0 cm LAIDs Index: 1.82 1.5-2.3 cm/m2 LV Mass: 355.78 67-162/88-224 g LV Mass Index: 140.62 43-95/49-115 g/m2 LVOT Diam: 2.50 3.0+(-)1.3 cm Mitral Valve MV Pk E: 1.10 MV PK A: 0.44 MV Decel Time: 135.00 E/A: 2.50 E'Lateral: 12.00 E'Medial: 10.70 E/E' Med: 10.30 E/E' Lat: 9.20 PHT: 40.00 MVA PHT: 5.50 Decel [place]: 8.14 Aortic Valve AoV Pk Kane: 1.32 AoV Mn Kane: 0.84 AoV VTI: 0.28 AoV Pk Grad: 7.00 Aov Mn Grad: 4.00 LON Cont.VTI: 2.40 LVOT LVOT Pk Kane: 0.69 LVOT Mn Kane: 0.46 LVOT VTI: 0.14 LVOT Pk Grad: 2.00 LVOT Mn Grad: 1.00 LVOT Diam: 2.50 LVOT Area: 4.91 Diastolic Function MV Pk E: 1.10 MV Pk A: 0.44 E/A: 2.50 E'Medial: 10.70 E/E' Med: 10.30 E' Laterial: 12.00 E/E' Lat: 9.20 Right Ventricle TAPSE (mm): 27.00 TVS' Kane: 11.00 Tricuspid Valve TR Pk Kane: 2.24 TR Pk Grad: 20.00 RA Press: 8.00 RVSP: 28.00 Great Vessels Aorta Ao Root-2D: 2.90 2.0-3.7 cm Ao Asc: 2.90 2.1-3.4 cm Pulmonary Valve PV Pk Kane: 1.05 Peak PV Grad: 4.00 Updated in Other Vendor System with Status of Final Mario Rivas MD electronically signed on 02/19/2024 12:20:50 PM with status of Final
[2024-02-19 08:00] VITALS: BP 140/86; PULSE 69; RESP 20; TEMP 36.4; O2SAT 95
[2024-02-19 08:01] LABS: Hematocrit 41.5 % (42.0-52.0); Hemoglobin 13.7 g/dl (14.0-18.0); Mean Corpuscular Hemoglobin 30.3 pg (27.0-33.0); Mean Corpuscular Volume 91.8 fL (80.0-98.0); Mean Platelet Volume 10.5 fL (9.4-12.4); Platelet Count 255 X10*3/uL (160-400); Red Blood Count 4.52 X10*6/uL (4.60-5.80); Red Cell Distribution Width 12.6 % (11.0-16.0); White Blood Count 8.6 X10*3/uL (4.8-10.8)
[2024-02-19 08:11] LABS: Glucose, Whole Blood 254 mg/dL (60-115)
[2024-02-19 08:29] LABS: Anion Gap 13 (12-20); Blood Urea Nitrogen 17 mg/dL (9-16); Calcium 8.9 mg/dL (8.4-10.2); Carbon Dioxide 24 mmol/L (22-29); Chloride 103 mmol/L (96-108); Creatinine Clr Calc Pharmacy 130.5; Estimated Glomerular Filt Rate > 60; Glucose Random 223 mg/dL (60-115); Potassium 3.9 mmol/L (3.3-5.1); Sodium 136 mmol/L (135-145)
[2024-02-19] MEDS: Insulin Lispro 100 UNIT/ML 3 ML VIAL SUBCUT ×4 (08:59→20:17)
[2024-02-19] MEDS: 0.9 % Sodium Chloride Flush 3 ML SYRINGE IVFLUSH ×3 (09:00→20:17)
[2024-02-19] MEDS: Apixaban 5 MG TABLET PO ×2 (09:02→20:16)
[2024-02-19] MEDS: busPIRone HCl 10 MG TABLET 30 MG PO (09:02)
[2024-02-19] MEDS: Escitalopram Oxalate 20 MG TABLET PO (09:02)
[2024-02-19] MEDS: Insulin Glargine,Hum.rec.anlog 100 UNIT/ML 10 ML VIAL 30 UNIT SUBCUT ×2 (09:09→20:16)
--- NOTE | 2024-02-19 09:35 | PM.PNCARD ---
Subjective Subjective Date of Service: 02/19/24 Principal diagnosis: Wide complex tachycardia Interval history: Patient was feeling well. No overt cardiac symptoms. Rhythm has remained stable with no overnight arrhythmias on amiodarone drip. Blood pressure remains elevated. Patient admits today that he did use some heroin yesterday could have been mixed with other substances that he does not know. U tox was negative for cocaine but not evaluating all stimulants Review of Systems Review of Systems Yes all other systems are reviewed and are negative Physical Exam Vital Signs: Last Vital Signs Temp 97.6 F 02/19/24 08:00 Pulse 69 02/19/24 08:00 Resp 20 02/19/24 08:00 BP 140/86 H 02/19/24 08:00 Pulse Ox 95 02/19/24 08:00 O2 Del Method Room Air 02/19/24 08:00 Oxygen Flow Rate 2 02/18/24 13:20 BMI result Body Mass Index 46.4 Const General: cooperative, comfortable, no acute distress, alert and awake Nutritional Appearance: obese Orientation/consciousness: patient oriented x3 Limitations: no limitations HEENT Head: Yes normocephalic and Yes atraumatic Neck Neck: Yes trachea midline, Yes supple and Yes no JVD Resp Effort & Inspection: normal respiratory effort Auscultation: clear to auscultation bilaterally Cardio Jugular venous distension: no JVD Palpation: normal PMI Rate: regular rate Rhythm: regular rhythm Heart sounds: S1 normal heart sound present, S2 normal heart sound present, no click, no gallops, no murmurs and no rubs GI Inspection: Yes obesity Auscultation: normal bowel sounds Skin General skin exam: no rashes or lesions noted Neuro General: patient oriented x3 and no focal motor deficits Extrem General: Yes no clubbing, cyanosis or edema Psych Appearance: grossly normal Objective Labs and Meds 02/19/24 07:15 02/19/24 07:15 Lab results: Laboratory Results - last 24 hr 02/18/24 02/18/24 02/18/24 13:38 13:57 15:30 WBC 8.5 RBC 4.48 L Hgb 13.6 L Hct 41.0 L MCV 91.5 MCH 30.4 MCHC 33.2 RDW 12.3 Plt Count 279 MPV 10.0 Immature Gran % (Auto) 0.5 H Neut % (Auto) 75.8 H Lymph % (Auto) 16.9 L [place] % (Auto) 5.5 Eos % (Auto) 0.9 Baso % (Auto) 0.4 Lymph # (Auto) 1.4 [place] # (Auto) 0.5 Eos # (Auto) 0.1 Baso # (Auto) 0.0 Abs Immat Gran (auto) 0.04 H Absolute Neuts (auto) 6.4 Absolute Nucleated RBC 0.000 Nucleated RBC % (auto) 0.0 Sodium 133 L Potassium 4.0 Chloride 103 Carbon Dioxide 23 Anion Gap 11 L BUN 12 Creatinine 0.86 Estim Creat Clear Calc 151.7 Estimated GFR > 60 POC Glucose 347 H Random Glucose 436 H* Calcium 9.0 Magnesium 1.9 Total Bilirubin 0.6 AST 134 H ALT 134 H Alkaline Phosphatase 115 Troponin I High Sens < 2.7 D Total Protein 6.4 L Albumin 3.6 Urine Opiates Screen POSITIVE H Ur Buprenorphine Scrn Not Detected Ur Oxycodone Screen Not Detected Urine Methadone Screen Not Detected Urine Fentanyl Screen POSITIVE H Ur Barbiturates Screen Not Detected Ur Phencyclidine Scrn Not Detected Ur Amphetamines Screen Not Detected U Benzodiazepines Scrn Not Detected Urine Cocaine Screen Not Detected U Marijuana (THC) Screen POSITIVE H 02/18/24 02/18/24 02/19/24 17:18 21:51 04:52 WBC RBC Hgb Hct MCV MCH MCHC RDW Plt Count MPV Immature Gran % (Auto) Neut % (Auto) Lymph % (Auto) [place] % (Auto) Eos % (Auto) Baso % (Auto) Lymph # (Auto) [place] # (Auto) Eos # (Auto) Baso # (Auto) Abs Immat Gran (auto) Absolute Neuts (auto) Absolute Nucleated RBC Nucleated RBC % (auto) Sodium Potassium Chloride Carbon Dioxide Anion Gap BUN Creatinine Estim Creat Clear Calc Estimated GFR POC Glucose 346 H 275 H 169 H Random Glucose Calcium Magnesium Total Bilirubin AST ALT Alkaline Phosphatase Troponin I High Sens Total Protein Albumin Urine Opiates Screen Ur Buprenorphine Scrn Ur Oxycodone Screen Urine Methadone Screen Urine Fentanyl Screen Ur Barbiturates Screen Ur Phencyclidine Scrn Ur Amphetamines Screen U Benzodiazepines Scrn Urine Cocaine Screen U Marijuana (THC) Screen 02/19/24 02/19/24 07:15 07:47 WBC 8.6 RBC 4.52 L Hgb 13.7 L Hct 41.5 L MCV 91.8 MCH 30.3 MCHC 33.0 RDW 12.6 Plt Count 255 MPV 10.5 Immature Gran % (Auto) Neut % (Auto) Lymph % (Auto) [place] % (Auto) Eos % (Auto) Baso % (Auto) Lymph # (Auto) [place] # (Auto) Eos # (Auto) Baso # (Auto) Abs Immat Gran (auto) Absolute Neuts (auto) Absolute Nucleated RBC 0.000 Nucleated RBC % (auto) 0.0 Sodium 136 Potassium 3.9 Chloride 103 Carbon Dioxide 24 Anion Gap 13 BUN 17 H Creatinine 1.00 Estim Creat Clear Calc 130.5 Estimated GFR > 60 POC Glucose 254 H Random Glucose 223 H Calcium 8.9 Magnesium 2.0 Total Bilirubin AST ALT Alkaline Phosphatase Troponin I High Sens Total Protein Albumin Urine Opiates Screen Ur Buprenorphine Scrn Ur Oxycodone Screen Urine Methadone Screen Urine Fentanyl Screen Ur Barbiturates Screen Ur Phencyclidine Scrn Ur Amphetamines Screen U Benzodiazepines Scrn Urine Cocaine Screen U Marijuana (THC) Screen Imaging Radiologist's impression: Impressions Chest X-Ray 02/18/24 14:20 IMPRESSION: Grossly clear portable AP chest x-ray. Electronically signed by: Jason Radford MD 02/18/2024 02:46 PM [facility] Progress Note: A&P Assessment and plan (1) Wide-complex tachycardia: Status: Acute Assessment and Plan: Wide complex tachycardia in this middle-aged man after using heroin question mixed with another stimulant unclear based on 1 lead strip could be atrial flutter with aberrant conduction versus monomorphic ventricular tachycardia. This was life-threatening require immediate synchronized cardioversion in field. That led to imaging it resolution of rhythm. Since yesterday on amiodarone he has not had any recurrent arrhythmias. Needs further evaluation of structural heart disease. Echocardiogram and myocardial perfusion imaging will be done over the next 2 days. This was discussed with the patient. I would switch him to p.o. amiodarone loading today. Need to preserve all his rhythm strips from the EMS as well as this may be important in pursuing further treatment including ablation. I would also request an addiction counseling given his use of drugs and he was willing to give up drug abuse. Would also start him on metoprolol 25 mg b.i.d.. Further treatment based on the findings of the test results. Twelve lead EKG today Will follow with you. Time Spent With Patient Time: Total time managing care of this patient today ____ minutes. Progress Note: Quality Stroke Does the patient have a stroke diagnosis?: No Procedures Date of Service Date of Service: 02/19/24
--- NOTE | 2024-02-19 11:18 | MHC.RECOVRN ---
Attempted to meet with pt in 469 after receiving Addiction Consult for substance use. Pt had presented to the ED after flagging down EMS. Pt had been SOB, diaphoretic, pale and was found to be in Vtach with pulse rate 290-300. Was shocked x1 and converted. Pt admitted with wide-complex tachycardia. Pt currently being brought downstairs for imaging. Does not appear in distress, denies current withdrawal symptoms. Pt reports using substances IN and they get stuck in my mucous and I blow it right out. Pt reports he is unsure how much he is actually using due to this and reports he will likely not feel withdrawal symptoms. Pt denies questions or concerns at this time. Will follow up later today.
[2024-02-19] MEDS: Metoprolol Tartrate 25 MG TABLET PO ×2 (11:40→20:16)
[2024-02-19] MEDS: Amiodarone HCL 200 MG TABLET 400 MG PO ×2 (11:40→20:16)
[2024-02-19] MEDS: ALPRAZolam 0.5 MG TABLET PO (11:52)
[2024-02-19 12:06] LABS: Glucose, Whole Blood 252 mg/dL (60-115)
--- NOTE | 2024-02-19 13:08 | HO.PM.IMPN ---
Subjective Subjective Date of Service: 02/19/24 Interval History: presyncope. Review of Systems denies any chest pain or sob Physical Exam Vital Signs: Vital Signs: Last Vital Signs Temp 97.6 F 02/19/24 08:00 Pulse 69 02/19/24 08:00 Resp 20 02/19/24 08:00 BP 140/86 H 02/19/24 08:00 Pulse Ox 95 02/19/24 08:00 O2 Del Method Room Air 02/19/24 08:00 Oxygen Flow Rate 2 02/18/24 13:20 BMI result Body Mass Index 46.4 General: AO X 3. Resp: CTA bilateral. CVS: S1,S2,RRR GI: soft, non tender, non distended Neuro: motor grossly intact, alert Psych: appropriate affect, appropriate insight Objective Data Active Medications Acetaminophen (Acetaminophen 325 Mg Tablet) 650 mg PO Q6H PRN PRN Reason: Pain, Mild (Pain Scale 1-3), fever or headache Albuterol Sulfate (Albuterol Sulfate 90 Mcg 8 Gm Inhaler) 2 puff INHALE Q4H PRN PRN Reason: wheezing and/or shortness of breath Amiodarone HCl (Amiodarone Hcl 200 Mg Tablet) 400 mg PO BID [facility] Last Admin: 02/19/24 11:40 Dose: 400 mg Documented By: JELLY Apixaban (Apixaban 5 Mg Tablet) 5 mg PO BID [facility] Last Admin: 02/19/24 09:02 Dose: 5 mg Documented By: JELLY Buspirone HCl (Buspirone Hcl 10 Mg Tablet) 30 mg PO BID [facility] Last Admin: 02/19/24 09:02 Dose: 30 mg Documented By: JELLY Calcium Carbonate (Calcium Carbonate 750 Mg Tab.Chew) 750 mg PO Q4H PRN PRN Reason: Heartburn Escitalopram Oxalate (Escitalopram Oxalate 20 Mg Tablet) 20 mg PO DAILY [facility] Last Admin: 02/19/24 09:02 Dose: 20 mg Documented By: JELLY Glucose (Glucose Gel 15 Gm Gel..Gram.) 15 gm PO Q15M PRN; Protocol PRN Reason: per Hypoglycemia Standing Ord. Dextrose (D10) 250 mls @ 750 mls/hr IV Q15M PRN; Protocol PRN Reason: per Hypoglycemia Standing Ord. Insulin Glargine (Insulin Glargine,Hum.Rec.Anlog 100 Unit/Ml 10 Ml Vial) 30 unit SUBCUT BID [facility] Last Admin: 02/19/24 09:09 Dose: 30 unit Documented By: JELLY Insulin Human Lispro (Insulin Lispro 100 Unit/Ml 3 Ml Vial) 0 unit SUBCUT QIDACHS [facility]; Protocol Last Admin: 02/19/24 12:08 Dose: 6 unit Documented By: JELLY Magnesium Hydroxide (Milk Of Magnesia 30 Ml Oral.Susp) 30 ml PO DAILY PRN PRN Reason: Constipation Melatonin (Melatonin 3 Mg Tablet) 6 mg PO BEDTIME PRN PRN Reason: Insomnia Metoprolol Tartrate (Metoprolol Tartrate 25 Mg Tablet) 25 mg PO BID [facility]; Protocol Last Admin: 02/19/24 11:40 Dose: 25 mg Documented By: JELLY Sodium Chloride (0.9 % Sodium Chloride Flush 3 Ml Syringe) [facility] Last Admin: 02/19/24 09:00 Dose: 3 ml Documented By: JELLY Tramadol HCl (Tramadol Hcl 50 Mg Tablet) 50 mg PO TID PRN PRN Reason: Pain, Moderate(Pain Scale 4-6) Zolpidem Tartrate (Zolpidem Tartrate 5 Mg Tablet) 10 mg PO BEDTIME PRN PRN Reason: insomnia Labs 02/19/24 07:15 02/19/24 07:15 Labs: Laboratory Results - last 24 hr 02/18/24 02/18/24 02/18/24 13:38 13:57 15:30 MCV 91.5 MCH 30.4 MCHC 33.2 RDW 12.3 Plt Count 279 MPV 10.0 Immature Gran % (Auto) 0.5 H Neut % (Auto) 75.8 H Lymph % (Auto) 16.9 L Gem % (Auto) 5.5 Eos % (Auto) 0.9 Baso % (Auto) 0.4 Lymph # (Auto) 1.4 Gem # (Auto) 0.5 Eos # (Auto) 0.1 Baso # (Auto) 0.0 Abs Immat Gran (auto) 0.04 H Absolute Neuts (auto) 6.4 Absolute Nucleated RBC 0.000 Nucleated RBC % (auto) 0.0 Anion Gap 11 L Estim Creat Clear Calc 151.7 Estimated GFR > 60 POC Glucose 347 H Random Glucose 436 H* Calcium 9.0 Magnesium 1.9 Total Bilirubin 0.6 AST 134 H ALT 134 H Alkaline Phosphatase 115 Troponin I High Sens < 2.7 D Total Protein 6.4 L Albumin 3.6 Urine Opiates Screen POSITIVE H Ur Buprenorphine Scrn Not Detected Ur Oxycodone Screen Not Detected Urine Methadone Screen Not Detected Urine Fentanyl Screen POSITIVE H Ur Barbiturates Screen Not Detected Ur Phencyclidine Scrn Not Detected Ur Amphetamines Screen Not Detected U Benzodiazepines Scrn Not Detected Urine Cocaine Screen Not Detected U Marijuana (THC) Screen POSITIVE H 02/18/24 02/18/24 02/19/24 17:18 21:51 04:52 MCV MCH MCHC RDW Plt Count MPV Immature Gran % (Auto) Neut % (Auto) Lymph % (Auto) Gem % (Auto) Eos % (Auto) Baso % (Auto) Lymph # (Auto) Gem # (Auto) Eos # (Auto) Baso # (Auto) Abs Immat Gran (auto) Absolute Neuts (auto) Absolute Nucleated RBC Nucleated RBC % (auto) Anion Gap Estim Creat Clear Calc Estimated GFR POC Glucose 346 H 275 H 169 H Random Glucose Calcium Magnesium Total Bilirubin AST ALT Alkaline Phosphatase Troponin I High Sens Total Protein Albumin Urine Opiates Screen Ur Buprenorphine Scrn Ur Oxycodone Screen Urine Methadone Screen Urine Fentanyl Screen Ur Barbiturates Screen Ur Phencyclidine Scrn Ur Amphetamines Screen U Benzodiazepines Scrn Urine Cocaine Screen U Marijuana (THC) Screen 02/19/24 02/19/24 02/19/24 07:15 07:47 12:02 MCV 91.8 MCH 30.3 MCHC 33.0 RDW 12.6 Plt Count 255 MPV 10.5 Immature Gran % (Auto) Neut % (Auto) Lymph % (Auto) Gem % (Auto) Eos % (Auto) Baso % (Auto) Lymph # (Auto) Gem # (Auto) Eos # (Auto) Baso # (Auto) Abs Immat Gran (auto) Absolute Neuts (auto) Absolute Nucleated RBC 0.000 Nucleated RBC % (auto) 0.0 Anion Gap 13 Estim Creat Clear Calc 130.5 Estimated GFR > 60 POC Glucose 254 H 252 H Random Glucose 223 H Calcium 8.9 Magnesium 2.0 Total Bilirubin AST ALT Alkaline Phosphatase Troponin I High Sens Total Protein Albumin Urine Opiates Screen Ur Buprenorphine Scrn Ur Oxycodone Screen Urine Methadone Screen Urine Fentanyl Screen Ur Barbiturates Screen Ur Phencyclidine Scrn Ur Amphetamines Screen U Benzodiazepines Scrn Urine Cocaine Screen U Marijuana (THC) Screen Assessment and Plan (1) Wide-complex tachycardia: Status: Acute (2) Atrial flutter with rapid ventricular response: Status: Acute Assessment and Plan: 53M PMH pafib, dm, morbid obesity, polysubstance dependence, mood idosrder, HTN, presented with presyncope Presyncope due to wide complex tachycardia Cardiology appreciated, monomorphic VT versus AFib with aberrancy switched to amiodarone, Eliquis, check echo Diabetes with hyperglycemia Basal bolus insulin Morbid obesity Weight loss recommended Mood disorder buspirone DVT prophylaxis with Eliquis Full Code ongoing possible atrial flutter with aberrant conduction versus monomorphic ventricular tachycardia- need tele monitering and further stress test for eval inpatient. Quality Stroke Does the patient have a stroke diagnosis?: No VTE Prior VTE?: No VTE Risk Level:: Medical - moderate - high VTE Device Contraindication: Treatment Not Indicated VTE Drug Contraindication: N/A - Med Ordered
--- NOTE | 2024-02-19 13:10 | MHC.CM.PN ---
Pt self-care, lives at home in a rented room with roommates. Pt uses a cane. Pt will need assistance with transportation home at discharge. HCP on file and verified. PCP: Dr. Julio Carter
[2024-02-19 15:25] VITALS: BP 156/94; PULSE 70; RESP 20; TEMP 36.4; O2SAT 98
[2024-02-19 16:36] LABS: Glucose, Whole Blood 262 mg/dL (60-115)
--- NOTE | 2024-02-19 16:57 | HO.ADDICTPRO ---
Subjective Subjective Date of Service: 02/19/24 Reason For Visit: Wide Complex Tach Interim History: Patient medically admitted admitted with wide complex tachycardia History of OUD, known to t/w and ACS via previous medical admissions Seen by ict help desk officer earlier in the day and note reviewed Patient reports btwn 5-10 bags of fentanyl IN daily -denies any IVDU He reports using prior to cardiac episode Discussed most recent admission where OUD was treated with methadone and patient had planned to continue treatment in the community --he reports feeling like MOUD is trading one opiate for another Education provided on medication and impact on opiate use, including reducing risk of overdose and overall use He states that he does not wish to remain on MOUD, recognizes the risks with ongoing use, including He has limited supports, but states that he is planning to visit [facility], the [facility], after discharge Denies any withdrawal sx when seen by this health science writer and none were observed. He appeared comfortable and towards end of interview was preparing to eat dinner Review of Systems Constitutional: Reports as per HPI and Reports no additional constitutional complaints Mental Status Exam Mental Status Exam Patient Appearance: Appropriate Patient Orientation: Person, Place, Time and Situation Level of Consciousness: Awake, Appropriate and Alert Patient Behavior: Appropriate and Talkative Mood Description: Calm Speech Pattern: Clear Thought Process: Intact Judgement: Fair Diagnostics Vital Signs (24Hr): Vital Signs - 24 hr 02/18/24 18:00 02/18/24 20:19 02/19/24 08:00 Temperature 97.6 F 97.6 F Pulse Rate 85 79 69 Respiratory Rate 14 15 20 Blood Pressure 141/72 H 126/73 140/86 H Pulse Oximetry 98 97 95 Oxygen Delivery Method Room Air Room Air Room Air 02/19/24 15:25 Temperature 97.6 F Pulse Rate 70 Respiratory Rate 20 Blood Pressure 156/94 H Pulse Oximetry 98 Oxygen Delivery Method Room Air BMI result Body Mass Index 46.4 Labs 02/19/24 07:15 02/19/24 07:15 Labs: Laboratory Results - last 48 hr 02/18/24 02/18/24 02/18/24 13:38 13:57 15:30 WBC 8.5 RBC 4.48 L Hgb 13.6 L Hct 41.0 L MCV 91.5 MCH 30.4 MCHC 33.2 RDW 12.3 Plt Count 279 MPV 10.0 Immature Gran % (Auto) 0.5 H Neut % (Auto) 75.8 H Lymph % (Auto) 16.9 L Dolores % (Auto) 5.5 Eos % (Auto) 0.9 Baso % (Auto) 0.4 Lymph # (Auto) 1.4 Dolores # (Auto) 0.5 Eos # (Auto) 0.1 Baso # (Auto) 0.0 Abs Immat Gran (auto) 0.04 H Absolute Neuts (auto) 6.4 Absolute Nucleated RBC 0.000 Nucleated RBC % (auto) 0.0 Sodium 133 L Potassium 4.0 Chloride 103 Carbon Dioxide 23 Anion Gap 11 L BUN 12 Creatinine 0.86 Estim Creat Clear Calc 151.7 Estimated GFR > 60 POC Glucose 347 H Random Glucose 436 H* Calcium 9.0 Magnesium 1.9 Total Bilirubin 0.6 AST 134 H ALT 134 H Alkaline Phosphatase 115 Troponin I High Sens < 2.7 D Total Protein 6.4 L Albumin 3.6 Urine Opiates Screen POSITIVE H Ur Buprenorphine Scrn Not Detected Ur Oxycodone Screen Not Detected Urine Methadone Screen Not Detected Urine Fentanyl Screen POSITIVE H Ur Barbiturates Screen Not Detected Ur Phencyclidine Scrn Not Detected Ur Amphetamines Screen Not Detected U Benzodiazepines Scrn Not Detected Urine Cocaine Screen Not Detected U Marijuana (THC) Screen POSITIVE H 02/18/24 02/18/24 02/19/24 17:18 21:51 04:52 WBC RBC Hgb Hct MCV MCH MCHC RDW Plt Count MPV Immature Gran % (Auto) Neut % (Auto) Lymph % (Auto) Dolores % (Auto) Eos % (Auto) Baso % (Auto) Lymph # (Auto) Dolores # (Auto) Eos # (Auto) Baso # (Auto) Abs Immat Gran (auto) Absolute Neuts (auto) Absolute Nucleated RBC Nucleated RBC % (auto) Sodium Potassium Chloride Carbon Dioxide Anion Gap BUN Creatinine Estim Creat Clear Calc Estimated GFR POC Glucose 346 H 275 H 169 H Random Glucose Calcium Magnesium Total Bilirubin AST ALT Alkaline Phosphatase Troponin I High Sens Total Protein Albumin Urine Opiates Screen Ur Buprenorphine Scrn Ur Oxycodone Screen Urine Methadone Screen Urine Fentanyl Screen Ur Barbiturates Screen Ur Phencyclidine Scrn Ur Amphetamines Screen U Benzodiazepines Scrn Urine Cocaine Screen U Marijuana (THC) Screen 02/19/24 02/19/24 02/19/24 07:15 07:47 12:02 WBC 8.6 RBC 4.52 L Hgb 13.7 L Hct 41.5 L MCV 91.8 MCH 30.3 MCHC 33.0 RDW 12.6 Plt Count 255 MPV 10.5 Immature Gran % (Auto) Neut % (Auto) Lymph % (Auto) Dolores % (Auto) Eos % (Auto) Baso % (Auto) Lymph # (Auto) Dolores # (Auto) Eos # (Auto) Baso # (Auto) Abs Immat Gran (auto) Absolute Neuts (auto) Absolute Nucleated RBC 0.000 Nucleated RBC % (auto) 0.0 Sodium 136 Potassium 3.9 Chloride 103 Carbon Dioxide 24 Anion Gap 13 BUN 17 H Creatinine 1.00 Estim Creat Clear Calc 130.5 Estimated GFR > 60 POC Glucose 254 H 252 H Random Glucose 223 H Calcium 8.9 Magnesium 2.0 Total Bilirubin AST ALT Alkaline Phosphatase Troponin I High Sens Total Protein Albumin Urine Opiates Screen Ur Buprenorphine Scrn Ur Oxycodone Screen Urine Methadone Screen Urine Fentanyl Screen Ur Barbiturates Screen Ur Phencyclidine Scrn Ur Amphetamines Screen U Benzodiazepines Scrn Urine Cocaine Screen U Marijuana (THC) Screen 02/19/24 16:33 WBC RBC Hgb Hct MCV MCH MCHC RDW Plt Count MPV Immature Gran % (Auto) Neut % (Auto) Lymph % (Auto) Dolores % (Auto) Eos % (Auto) Baso % (Auto) Lymph # (Auto) Dolores # (Auto) Eos # (Auto) Baso # (Auto) Abs Immat Gran (auto) Absolute Neuts (auto) Absolute Nucleated RBC Nucleated RBC % (auto) Sodium Potassium Chloride Carbon Dioxide Anion Gap BUN Creatinine Estim Creat Clear Calc Estimated GFR POC Glucose 262 H Random Glucose Calcium Magnesium Total Bilirubin AST ALT Alkaline Phosphatase Troponin I High Sens Total Protein Albumin Urine Opiates Screen Ur Buprenorphine Scrn Ur Oxycodone Screen Urine Methadone Screen Urine Fentanyl Screen Ur Barbiturates Screen Ur Phencyclidine Scrn Ur Amphetamines Screen U Benzodiazepines Scrn Urine Cocaine Screen U Marijuana (THC) Screen Imaging Radiology Impressions: ITS Impressions Chest X-Ray 02/18/24 14:20 IMPRESSION: Grossly clear portable AP chest x-ray. Electronically signed by: Jason Radford MD 02/18/2024 02:46 PM [facility] Medications Medications Current Medications Acetaminophen (Acetaminophen 325 Mg Tablet) 650 mg PO Q6H PRN PRN Reason: Pain, Mild (Pain Scale 1-3), fever or headache Albuterol Sulfate (Albuterol Sulfate 90 Mcg 8 Gm Inhaler) 2 puff INHALE Q4H PRN PRN Reason: wheezing and/or shortness of breath Amiodarone HCl (Amiodarone Hcl 200 Mg Tablet) 400 mg PO BID [facility] Last Admin: 02/19/24 11:40 Dose: 400 mg Apixaban (Apixaban 5 Mg Tablet) 5 mg PO BID [facility] Last Admin: 02/19/24 09:02 Dose: 5 mg Buspirone HCl (Buspirone Hcl 10 Mg Tablet) 30 mg PO BID [facility] Last Admin: 02/19/24 09:02 Dose: 30 mg Calcium Carbonate (Calcium Carbonate 750 Mg Tab.Chew) 750 mg PO Q4H PRN PRN Reason: Heartburn Escitalopram Oxalate (Escitalopram Oxalate 20 Mg Tablet) 20 mg PO DAILY [facility] Last Admin: 02/19/24 09:02 Dose: 20 mg Glucose (Glucose Gel 15 Gm Gel..Gram.) 15 gm PO Q15M PRN; Protocol PRN Reason: per Hypoglycemia Standing Ord. Dextrose (D10) 250 mls @ 750 mls/hr IV Q15M PRN; Protocol PRN Reason: per Hypoglycemia Standing Ord. Insulin Glargine (Insulin Glargine,Hum.Rec.Anlog 100 Unit/Ml 10 Ml Vial) 30 unit SUBCUT BID [facility] Last Admin: 02/19/24 09:09 Dose: 30 unit Insulin Human Lispro (Insulin Lispro 100 Unit/Ml 3 Ml Vial) 0 unit SUBCUT QIDACHS [facility]; Protocol Last Admin: 02/19/24 12:08 Dose: 6 unit Magnesium Hydroxide (Milk Of Magnesia 30 Ml Oral.Susp) 30 ml PO DAILY PRN PRN Reason: Constipation Melatonin (Melatonin 3 Mg Tablet) 6 mg PO BEDTIME PRN PRN Reason: Insomnia Methadone HCl (Methadone Hcl 20 Mg/2 Ml Oral.Conc) 10 mg PO Q3H PRN PRN Reason: Opiate Withdrawal Metoprolol Tartrate (Metoprolol Tartrate 25 Mg Tablet) 25 mg PO BID [facility]; Protocol Last Admin: 02/19/24 11:40 Dose: 25 mg Sodium Chloride (0.9 % Sodium Chloride Flush 3 Ml Syringe) 3 ml IVFLUSH QSHIFT [facility] Last Admin: 02/19/24 09:00 Dose: 3 ml Tramadol HCl (Tramadol Hcl 50 Mg Tablet) 50 mg PO TID PRN PRN Reason: Pain, Moderate(Pain Scale 4-6) Zolpidem Tartrate (Zolpidem Tartrate 5 Mg Tablet) 10 mg PO BEDTIME PRN PRN Reason: insomnia Allergies Allergies Allergy/AdvReac Type Severity Reaction Status Date / Time Penicillins [PENICILLINS] Allergy Unknown RASH Verified 02/18/24 13:23 Assessment & Plan Assessment & Plan (1) Opioid use disorder: Status: Acute Code(s): F11.90 - Opioid use, unspecified, uncomplicated Assessment and Plan: not yet experiencing withdrawal sx--methadone 10mg Q3H PRN, max 3 doses \ will follow up in AM as patient is still unsure regarding ongoing treatment with MOUD Total time managing care of this patient today ___ minutes.
[2024-02-19 19:34] VITALS: BP 139/82; PULSE 74; RESP 16; TEMP 37.1; O2SAT 98
[2024-02-19 20:09] LABS: Glucose, Whole Blood 309 mg/dL (60-115)
[2024-02-19 23:45] VITALS: BP 126/76; PULSE 70; RESP 16; TEMP 36.9; O2SAT 94
[2024-02-20 03:31] VITALS: BP 130/73; PULSE 76; RESP 16; TEMP 36.3; O2SAT 94
[2024-02-20 03:40] VITALS: RESP 16; O2SAT 100
[2024-02-20 07:30] VITALS: BP 130/76; PULSE 71; RESP 16; TEMP 36.9; O2SAT 97
[2024-02-20 07:50] LABS: Glucose, Whole Blood 175 mg/dL (60-115)
[2024-02-20] MEDS: Insulin Lispro 100 UNIT/ML 3 ML VIAL SUBCUT ×4 (08:08→20:33)
[2024-02-20] MEDS: Insulin Glargine,Hum.rec.anlog 100 UNIT/ML 10 ML VIAL 30 UNIT SUBCUT ×2 (08:08→20:32)
[2024-02-20] MEDS: methADONE HCl 20 MG/2 ML ORAL.CONC 10 MG PO ×3 (08:08→20:33)
[2024-02-20] MEDS: 0.9 % Sodium Chloride Flush 3 ML SYRINGE IVFLUSH ×2 (08:09→20:34)
[2024-02-20] MEDS: Amiodarone HCL 200 MG TABLET 400 MG PO (08:19)
[2024-02-20] MEDS: Apixaban 5 MG TABLET PO (08:20)
[2024-02-20] MEDS: Metoprolol Tartrate 25 MG TABLET PO (08:20)
[2024-02-20] MEDS: Escitalopram Oxalate 20 MG TABLET PO (08:20)
--- NOTE | 2024-02-20 09:39 | PM.PNCARD ---
Subjective Subjective Date of Service: 02/20/24 Principal diagnosis: Wide complex tachycardia Interval history: Patient with no overnight arrhythmias. No other cardiovascular symptoms. He denied to undergo nuclear imaging as he was significantly claustrophobic because of the machine. He had echocardiogram yesterday which showed preserved LV systolic function with pseudonormal filling pattern with mildly dilated left atrium. Review of Systems Review of Systems Yes all other systems are reviewed and are negative Physical Exam Vital Signs: Last Vital Signs Temp 98.4 F 02/20/24 07:30 Pulse 71 02/20/24 07:30 Resp 16 02/20/24 07:30 BP 130/76 02/20/24 07:30 Pulse Ox 97 02/20/24 07:30 O2 Del Method Room Air 02/20/24 07:30 Oxygen Flow Rate 2 02/18/24 13:20 BMI result Body Mass Index 46.4 Const General: cooperative, comfortable, no acute distress, alert and awake Nutritional Appearance: obese Orientation/consciousness: patient oriented x3 Limitations: no limitations HEENT Head: Yes normocephalic and Yes atraumatic Neck Neck: Yes trachea midline, Yes supple and Yes no JVD Resp Effort & Inspection: normal respiratory effort Auscultation: clear to auscultation bilaterally Cardio Jugular venous distension: no JVD Palpation: normal PMI Rate: regular rate Rhythm: regular rhythm Heart sounds: S1 normal heart sound present, S2 normal heart sound present, no click, no gallops, no murmurs and no rubs GI Inspection: Yes obesity Auscultation: normal bowel sounds Skin General skin exam: no rashes or lesions noted Neuro General: patient oriented x3 and no focal motor deficits Extrem General: Yes no clubbing, cyanosis or edema Psych Appearance: grossly normal Objective Labs and Meds 02/19/24 07:15 02/19/24 07:15 Lab results: Laboratory Results - last 24 hr 02/19/24 02/19/24 02/19/24 12:02 16:33 20:06 POC Glucose 252 H 262 H 309 H 02/20/24 07:30 POC Glucose 175 H Progress Note: A&P Assessment and plan (1) Wide-complex tachycardia: Status: Acute Assessment and Plan: By complex tachycardia in this middle-aged man most likely atrial flutter with rapid conduction with aberrancy. Monomorphic VT can not be ruled out entirely. Echocardiogram shows preserved LV ejection fraction. Will pursue ischemic workup with a dobutamine stress echocardiogram tomorrow. Hold metoprolol overnight. Continue amiodarone to suppress his arrhythmias at this point time. If stress testing is within normal limits will potentially discharge him for an outpatient workup for cardiac MRI. Complete cessation of drug abuse including use of stimulants was discussed with him. Will eventually need EP consultation to consider ablation. Continue full oral anticoagulation. Will follow with you Time Spent With Patient Time: Total time managing care of this patient today ____ minutes. Progress Note: Quality Stroke Does the patient have a stroke diagnosis?: No Procedures Date of Service Date of Service: 02/20/24
--- NOTE | 2024-02-20 10:46 | MHC.CM.PN ---
EMR REVIEWED, PER CARDIO PLAN FOR STRESS TEST TOMORROW 02/20, PLAN REMAINS HOME W/ASSISTANCE W/TRANSPORT, CM WILL CONT TO FOLLOW DC NEEDS.
[2024-02-20 11:02] LABS: Glucose, Whole Blood 245 mg/dL (60-115)
[2024-02-20 11:30] VITALS: BP 153/79; PULSE 71; RESP 16; TEMP 36.6; O2SAT 98
--- NOTE | 2024-02-20 11:44 | MHC.RECOVRN ---
Met with pt to follow up after receiving 10 mg methadone this morning. Pt sitting in bed, awake, alert, easily engages in conversation. Pt reprots prior to methadone administration he was vomiting due to withdrawal. Vomiting has since stopped. Pt reports slight upset stomach and body aches. Would like to continue with prn methadone. Denies other questions or concerns. Spoke with RN, additional methadone will be administered. Discussed with Fang Iraheta APRN.
--- NOTE | 2024-02-20 13:23 | P.PNIM_ITS ---
Subjective Subjective Date of Service: 02/20/24 Interval History: vomiting x1 , anxious. Review of Systems denies any chest pain or sob Physical Exam 2 Vital Signs: Vital Signs: Last Vital Signs Temp 97.8 F 02/20/24 11:30 Pulse 71 02/20/24 11:30 Resp 16 02/20/24 11:30 BP 153/79 H 02/20/24 11:30 Pulse Ox 98 02/20/24 11:30 O2 Del Method Room Air 02/20/24 11:30 Oxygen Flow Rate 2 02/18/24 13:20 BMI result Body Mass Index 46.4 General: AO X 3. Resp: CTA bilateral. CVS: S1,S2,RRR GI: soft, non tender, non distended Neuro: motor grossly intact, alert Psych: appropriate affect, appropriate insight Objective Data Active Medications Acetaminophen (Acetaminophen 325 Mg Tablet) 650 mg PO Q6H PRN PRN Reason: Pain, Mild (Pain Scale 1-3), fever or headache Albuterol Sulfate (Albuterol Sulfate 90 Mcg 8 Gm Inhaler) 2 puff INHALE Q4H PRN PRN Reason: wheezing and/or shortness of breath Amiodarone HCl (Amiodarone Hcl 200 Mg Tablet) 400 mg PO BID [facility] Last Admin: 02/20/24 08:19 Dose: 400 mg Documented By: MICHEL Apixaban (Apixaban 5 Mg Tablet) 5 mg PO BID [facility] Last Admin: 02/20/24 08:20 Dose: 5 mg Documented By: MICHEL Buspirone HCl (Buspirone Hcl 10 Mg Tablet) 30 mg PO BID [facility] Last Admin: 02/20/24 08:19 Dose: Not Given Documented By: MICHEL Non-Admin Reason: Patient Refused Calcium Carbonate (Calcium Carbonate 750 Mg Tab.Chew) 750 mg PO Q4H PRN PRN Reason: Heartburn Escitalopram Oxalate (Escitalopram Oxalate 20 Mg Tablet) 20 mg PO DAILY [facility] Last Admin: 02/20/24 08:20 Dose: 20 mg Documented By: MICHEL Glucose (Glucose Gel 15 Gm Gel..Gram.) 15 gm PO Q15M PRN; Protocol PRN Reason: per Hypoglycemia Standing Ord. Dextrose (D10) 250 mls @ 750 mls/hr IV Q15M PRN; Protocol PRN Reason: per Hypoglycemia Standing Ord. Insulin Glargine (Insulin Glargine,Hum.Rec.Anlog 100 Unit/Ml 10 Ml Vial) 30 unit SUBCUT BID [facility] Last Admin: 02/20/24 08:08 Dose: 30 unit Documented By: MICHEL Insulin Human Lispro (Insulin Lispro 100 Unit/Ml 3 Ml Vial) 0 unit SUBCUT QIDACHS [facility]; Protocol Last Admin: 02/20/24 11:50 Dose: 4 unit Documented By: MICHEL Magnesium Hydroxide (Milk Of Magnesia 30 Ml Oral.Susp) 30 ml PO DAILY PRN PRN Reason: Constipation Melatonin (Melatonin 3 Mg Tablet) 6 mg PO BEDTIME PRN PRN Reason: Insomnia Methadone HCl (Methadone Hcl 20 Mg/2 Ml Oral.Conc) 10 mg PO Q3H PRN PRN Reason: Opiate Withdrawal Last Admin: 02/20/24 11:50 Dose: 10 mg Documented By: MICHEL Co-signed By: KALYAN Metoprolol Tartrate (Metoprolol Tartrate 25 Mg Tablet) 25 mg PO BID [facility]; Protocol Last Admin: 02/20/24 08:20 Dose: 25 mg Documented By: MICHEL Sodium Chloride (0.9 % Sodium Chloride Flush 3 Ml Syringe) [facility] Last Admin: 02/20/24 08:09 Dose: 3 ml Documented By: MICHEL Tramadol HCl (Tramadol Hcl 50 Mg Tablet) 50 mg PO TID PRN PRN Reason: Pain, Moderate(Pain Scale 4-6) Zolpidem Tartrate (Zolpidem Tartrate 5 Mg Tablet) 10 mg PO BEDTIME PRN PRN Reason: insomnia Labs 02/19/24 07:15 02/19/24 07:15 Labs: Laboratory Results - last 24 hr 02/19/24 02/19/24 02/20/24 16:33 20:06 07:30 POC Glucose 262 H 309 H 175 H 02/20/24 10:57 POC Glucose 245 H Assessment and Plan (1) Wide-complex tachycardia: Status: Acute (2) Atrial flutter with rapid ventricular response: Status: Acute Assessment and Plan: 53M PMH pafib, dm, morbid obesity, polysubstance dependence, mood idosrder, HTN, presented with presyncope Presyncope due to wide complex tachycardia Cardiology appreciated-likely AFib with aberrancy Monomorphic VT can not be ruled out entirely. echo-preserved LV ejection fraction. continue amiodarone, Eliquis,hold metoprolol overnight in anticipation of stress test in am(Will pursue ischemic workup with a dobutamine stress echocardiogram tomorrow). Diabetes with hyperglycemia Basal bolus insulin Morbid obesity Weight loss recommended Mood disorder buspirone drug use:Complete cessation of drug abuse including use of stimulants was discussed with him. addiction team nancy, currently methodone 10 mg po q3h prn DVT prophylaxis with Eliquis Full Code ongoing possible atrial flutter with aberrant conduction - need tele monitering and further stress test for eval inpatient. Quality Stroke Does the patient have a stroke diagnosis?: No VTE Prior VTE?: No VTE Risk Level:: Medical - moderate - high VTE Device Contraindication: Treatment Not Indicated VTE Drug Contraindication: N/A - Med Ordered
[2024-02-20 15:42] VITALS: BP 149/75; PULSE 71; RESP 20; TEMP 36.9; O2SAT 97
[2024-02-20 16:05] LABS: Glucose, Whole Blood 234 mg/dL (60-115)
--- NOTE | 2024-02-20 16:33 | P.PNADD_ITS ---
Subjective Subjective Date of Service: 02/20/24 Reason For Visit: Wide Complex Tach Interim History: Patient seen in follow up for OUD At time of interview, patient had received (2) 10mg doses of methadone He appeared calm and comfortable He denied any withdrawal sx and requested to stay on this dose He verbalized that he does not wish to continue methadone outpt at this time Review of Systems Constitutional: Reports as per HPI Mental Status Exam Mental Status Exam Patient Appearance: Appropriate Level of Consciousness: Awake, Appropriate and Alert Patient Behavior: Appropriate Mood Description: Calm Affect Description: Calm Speech Pattern: Clear Diagnostics Vital Signs (24Hr): Vital Signs - 24 hr 02/19/24 19:34 02/19/24 23:45 02/20/24 03:31 Temperature 98.7 F 98.5 F 97.4 F Pulse Rate 74 70 76 Respiratory Rate 16 16 16 Blood Pressure 139/82 126/76 130/73 Pulse Oximetry 98 94 94 Oxygen Delivery Method Room Air Room Air Room Air 02/20/24 03:40 02/20/24 07:30 02/20/24 11:30 Temperature 98.4 F 97.8 F Pulse Rate 71 71 Respiratory Rate 16 16 16 Blood Pressure 130/76 153/79 H Pulse Oximetry 100 97 98 Oxygen Delivery Method Room Air Room Air Room Air 02/20/24 15:42 Temperature 98.5 F Pulse Rate 71 Respiratory Rate 20 Blood Pressure 149/75 H Pulse Oximetry 97 Oxygen Delivery Method Room Air BMI result Body Mass Index 46.4 Labs 02/19/24 07:15 02/19/24 07:15 Labs: Laboratory Results - last 48 hr 02/18/24 02/18/24 02/19/24 17:18 21:51 04:52 WBC RBC Hgb Hct MCV MCH MCHC RDW Plt Count MPV Absolute Nucleated RBC Nucleated RBC % (auto) Sodium Potassium Chloride Carbon Dioxide Anion Gap BUN Creatinine Estim Creat Clear Calc Estimated GFR POC Glucose 346 H 275 H 169 H Random Glucose Calcium Magnesium 02/19/24 02/19/24 02/19/24 07:15 07:47 12:02 WBC 8.6 RBC 4.52 L Hgb 13.7 L Hct 41.5 L MCV 91.8 MCH 30.3 MCHC 33.0 RDW 12.6 Plt Count 255 MPV 10.5 Absolute Nucleated RBC 0.000 Nucleated RBC % (auto) 0.0 Sodium 136 Potassium 3.9 Chloride 103 Carbon Dioxide 24 Anion Gap 13 BUN 17 H Creatinine 1.00 Estim Creat Clear Calc 130.5 Estimated GFR > 60 POC Glucose 254 H 252 H Random Glucose 223 H Calcium 8.9 Magnesium 2.0 02/19/24 02/19/24 02/20/24 16:33 20:06 07:30 WBC RBC Hgb Hct MCV MCH MCHC RDW Plt Count MPV Absolute Nucleated RBC Nucleated RBC % (auto) Sodium Potassium Chloride Carbon Dioxide Anion Gap BUN Creatinine Estim Creat Clear Calc Estimated GFR POC Glucose 262 H 309 H 175 H Random Glucose Calcium Magnesium 02/20/24 02/20/24 10:57 15:57 WBC RBC Hgb Hct MCV MCH MCHC RDW Plt Count MPV Absolute Nucleated RBC Nucleated RBC % (auto) Sodium Potassium Chloride Carbon Dioxide Anion Gap BUN Creatinine Estim Creat Clear Calc Estimated GFR POC Glucose 245 H 234 H Random Glucose Calcium Magnesium Imaging Radiology Impressions: ITS Impressions Chest X-Ray 02/18/24 14:20 IMPRESSION: Grossly clear portable AP chest x-ray. Electronically signed by: Jason Radford MD 02/18/2024 02:46 PM [facility] Medications Medications Current Medications Acetaminophen (Acetaminophen 325 Mg Tablet) 650 mg PO Q6H PRN PRN Reason: Pain, Mild (Pain Scale 1-3), fever or headache Albuterol Sulfate (Albuterol Sulfate 90 Mcg 8 Gm Inhaler) 2 puff INHALE Q4H PRN PRN Reason: wheezing and/or shortness of breath Amiodarone HCl (Amiodarone Hcl 200 Mg Tablet) 400 mg PO BID [facility] Last Admin: 02/20/24 08:19 Dose: 400 mg Apixaban (Apixaban 5 Mg Tablet) 5 mg PO BID [facility] Last Admin: 02/20/24 08:20 Dose: 5 mg Buspirone HCl (Buspirone Hcl 10 Mg Tablet) 30 mg PO BID [facility] Last Admin: 02/20/24 08:19 Dose: Not Given Calcium Carbonate (Calcium Carbonate 750 Mg Tab.Chew) 750 mg PO Q4H PRN PRN Reason: Heartburn Escitalopram Oxalate (Escitalopram Oxalate 20 Mg Tablet) 20 mg PO DAILY [facility] Last Admin: 02/20/24 08:20 Dose: 20 mg Glucose (Glucose Gel 15 Gm Gel..Gram.) 15 gm PO Q15M PRN; Protocol PRN Reason: per Hypoglycemia Standing Ord. Dextrose (D10) 250 mls @ 750 mls/hr IV Q15M PRN; Protocol PRN Reason: per Hypoglycemia Standing Ord. Insulin Glargine (Insulin Glargine,Hum.Rec.Anlog 100 Unit/Ml 10 Ml Vial) 30 unit SUBCUT BID [facility] Last Admin: 02/20/24 08:08 Dose: 30 unit Insulin Human Lispro (Insulin Lispro 100 Unit/Ml 3 Ml Vial) 0 unit SUBCUT QIDACHS [facility]; Protocol Last Admin: 02/20/24 16:12 Dose: 4 unit Magnesium Hydroxide (Milk Of Magnesia 30 Ml Oral.Susp) 30 ml PO DAILY PRN PRN Reason: Constipation Melatonin (Melatonin 3 Mg Tablet) 6 mg PO BEDTIME PRN PRN Reason: Insomnia Methadone HCl (Methadone Hcl 20 Mg/2 Ml Oral.Conc) 10 mg PO Q3H PRN PRN Reason: Opiate Withdrawal Last Admin: 02/20/24 11:50 Dose: 10 mg Methadone HCl (Methadone Hcl 20 Mg/2 Ml Oral.Conc) 20 mg PO DAILY@0800 [facility] Metoprolol Tartrate (Metoprolol Tartrate 25 Mg Tablet) 25 mg PO BID [facility]; Protocol Last Admin: 02/20/24 08:20 Dose: 25 mg Sodium Chloride (0.9 % Sodium Chloride Flush 3 Ml Syringe) 3 ml IVFLUSH QSHIFT [facility] Last Admin: 02/20/24 15:22 Dose: Not Given Tramadol HCl (Tramadol Hcl 50 Mg Tablet) 50 mg PO TID PRN PRN Reason: Pain, Moderate(Pain Scale 4-6) Zolpidem Tartrate (Zolpidem Tartrate 5 Mg Tablet) 10 mg PO BEDTIME PRN PRN Reason: insomnia Allergies Allergies Allergy/AdvReac Type Severity Reaction Status Date / Time Penicillins [PENICILLINS] Allergy Unknown RASH Verified 02/18/24 13:23 Assessment & Plan Assessment & Plan (1) Opioid use disorder: Status: Acute Code(s): F11.90 - Opioid use, unspecified, uncomplicated Assessment and Plan: * methadone 20mg QD * patient currently stating that he does not wish to continue with methadone dose titration or oupt referrals * mental health assistant to check in in AM Total time managing care of this patient today __15__ minutes.
[2024-02-20 19:46] VITALS: BP 172/92; PULSE 76; RESP 16; TEMP 36.7; O2SAT 97
[2024-02-20 20:26] LABS: Glucose, Whole Blood 225 mg/dL (60-115)
[2024-02-21] VITALS: BP 157/82; PULSE 78; RESP 20; TEMP 36.1; O2SAT 97
--- NOTE | 2024-02-21 | ECG_ITS ---
Test Reason : ?rythem check Blood Pressure : / mmHG Vent. Rate : 085 BPM Atrial Rate : 085 BPM P-R Int : 170 ms QRS Dur : 100 ms QT Int : 394 ms P-R-T Axes : 075 074 -14 degrees QTc Int : 468 ms Normal sinus rhythm Abnormal QRS-T angle, consider primary T wave abnormality Abnormal ECG When compared with ECG of 19-FEB-2024 09:28, No significant change was found Referred By: Kassie Jerry Electronically Signed By:SAMIRA TAYLOR MD
[2024-02-21 03:48] VITALS: BP 166/85; PULSE 77; RESP 20; TEMP 36.9; O2SAT 96
[2024-02-21] MEDS: ondansetron HCL 4 MG/2 ML VIAL IVPUSH (06:09)
[2024-02-21 07:30] LABS: Glucose, Whole Blood 152 mg/dL (60-115)
--- NOTE | 2024-02-21 09:54 | PM.PNCARD ---
Subjective Subjective Date of Service: 02/21/24 Principal diagnosis: Wide complex tachycardia Interval history: Patient having no arrhythmias overnight. Hemodynamically stable. Having issues as he did not sleep well due to the bed. Review of Systems Review of Systems Yes all other systems are reviewed and are negative Physical Exam Vital Signs: Last Vital Signs Temp 98.4 F 02/21/24 03:48 Pulse 77 02/21/24 03:48 Resp 20 02/21/24 03:48 BP 166/85 H 02/21/24 03:48 Pulse Ox 96 02/21/24 03:48 O2 Del Method Room Air 02/21/24 03:48 Oxygen Flow Rate 2 02/18/24 13:20 BMI result Body Mass Index 46.4 Const General: cooperative, comfortable, no acute distress, alert and awake Nutritional Appearance: obese Orientation/consciousness: patient oriented x3 Limitations: no limitations HEENT Head: Yes normocephalic and Yes atraumatic Neck Neck: Yes trachea midline, Yes supple and Yes no JVD Resp Effort & Inspection: normal respiratory effort Auscultation: clear to auscultation bilaterally Cardio Jugular venous distension: no JVD Palpation: normal PMI Rate: regular rate Rhythm: regular rhythm Heart sounds: S1 normal heart sound present, S2 normal heart sound present, no click, no gallops, no murmurs and no rubs GI Inspection: Yes obesity Auscultation: normal bowel sounds Skin General skin exam: no rashes or lesions noted Neuro General: patient oriented x3 and no focal motor deficits Extrem General: Yes no clubbing, cyanosis or edema Psych Appearance: grossly normal Objective Labs and Meds 02/19/24 07:15 02/19/24 07:15 Lab results: Laboratory Results - last 24 hr 02/20/24 02/20/24 02/20/24 10:57 15:57 20:22 POC Glucose 245 H 234 H 225 H 02/21/24 07:06 POC Glucose 152 H Progress Note: A&P Assessment and plan (1) Wide-complex tachycardia: Status: Acute Assessment and Plan: Wide complex tachycardia to me appears to be most likely atrial flutter with aberrant conduction although monomorphic VT can not be ruled out. Echocardiogram shows normal LV ejection fraction. Will rule out myocardial ischemia. I think he will benefit from possible ablation therapy as outpatient for his atrial flutter. He is strongly recommended to avoid all drugs including stimulants and cocaine. Continue amiodarone therapy for now. Continue full oral anticoagulation with Eliquis. Once stress test is within normal limits will most likely plan for discharge. Will follow-up as outpatient. Time Spent With Patient Time: Total time managing care of this patient today ____ minutes. Progress Note: Quality Stroke Does the patient have a stroke diagnosis?: No Procedures Date of Service Date of Service: 02/21/24
--- NOTE | 2024-02-21 10:52 | MHC.RECOVSUP ---
Steel Inspector Note Attempted to see patient, but he claimed he had not gotten much sleep and was expecting staff to come in for testing soon. Asked me to come back another time after a brief conversation.
--- NOTE | 2024-02-21 11:30 | CA_ITS ---
Acquisition Time: 2024-02-21 10:43:02 Total Exercise Time: 00:17:12 Test Indications: Screening for CAD Medications: SEE EMAR Protocol: DOBUTAMINE Max HR: 184 BPM 108% of Pred: 169 BPM Max BP: 180/076 mmHG Max Work Load: 1.0 METS Pharmacological stress test with Dobutamine infusion to max of 30mcq/kg/min achieving 75% MPHR, with complaints of 10/10 chest pain that improved gradually in recovery, with frequent PACs and PVCs, then bursts of AF RVR, then wide complex tachycardias rate 180s, followed by Afib RVR rate 140s-160s, with normotensive response. Nondiagnostic EKG for ischemia due to baseline abnormlaities. In recovery, treated with IV Metoprolol 5 mg x2, HR remained elevated in 130s. Dr Rivas evaluated pt and ordered IV bolus Amiodarone 150mg. Pt stable with no chest pain, BP in normal range, HR still in the 120s. Echo images were obtained by tech at rest, low dose, peak, and post infusion. Definity contrast used. Following completion of Amiodarone bolus, he was reevaluated and note to still have afib RVR rates 120-140. He was assisted onto transport [facility] and moved to his room on [facility]. Report was called to hospitalist Dr Jerry with recommendation for Diltiazem drip. Pts nurse was notified of the events that occurred during his stress test. Full events reviewed with Dr Rivas. Referred By: Mario Rivas Overread By: ISELA ULLOA
--- NOTE | 2024-02-21 11:57 | MHC.RECOVRN ---
Attempted to meet with pt. Pt not available due to being off the floor for testing.
[2024-02-21 12:00] VITALS: BP 145/76; PULSE 80; RESP 20; TEMP 36.7; O2SAT 95
--- NOTE | 2024-02-21 13:01 | HO.PM.IMPN ---
Subjective Subjective Date of Service: 02/21/24 Interval History: paf with rvr Review of Systems went for stress test -he had a lot of rythem changes had some wide complex tachycardia and then went into afib with rapid RVR denies nay chest pain or sob. Physical Exam Vital Signs: Vital Signs: Last Vital Signs Temp 98.4 F 02/21/24 03:48 Pulse 77 02/21/24 03:48 Resp 20 02/21/24 03:48 BP 166/85 H 02/21/24 03:48 Pulse Ox 96 02/21/24 03:48 O2 Del Method Room Air 02/21/24 03:48 Oxygen Flow Rate 2 02/18/24 13:20 BMI result Body Mass Index 46.4 General: AO X 3. Resp: CTA bilateral. CVS: irrgeular rythem,S1,S2 GI: soft, non tender, non distended Neuro: motor grossly intact, alert Psych: appropriate affect, appropriate insight Objective Data Active Medications Acetaminophen (Acetaminophen 325 Mg Tablet) 650 mg PO Q6H PRN PRN Reason: Pain, Mild (Pain Scale 1-3), fever or headache Albuterol Sulfate (Albuterol Sulfate 90 Mcg 8 Gm Inhaler) 2 puff INHALE Q4H PRN PRN Reason: wheezing and/or shortness of breath Amiodarone HCl (Amiodarone Hcl 200 Mg Tablet) 400 mg PO BID [facility] Last Admin: 02/21/24 08:11 Dose: Not Given Documented By: RAQUEL Non-Admin Reason: Patient Refused Apixaban (Apixaban 5 Mg Tablet) 5 mg PO BID [facility] Last Admin: 02/21/24 08:11 Dose: Not Given Documented By: RAQUEL Non-Admin Reason: Patient Refused Buspirone HCl (Buspirone Hcl 10 Mg Tablet) 30 mg PO BID [facility] Last Admin: 02/21/24 08:12 Dose: Not Given Documented By: RAQUEL Non-Admin Reason: Patient Refused Calcium Carbonate (Calcium Carbonate 750 Mg Tab.Chew) 750 mg PO Q4H PRN PRN Reason: Heartburn Escitalopram Oxalate (Escitalopram Oxalate 20 Mg Tablet) 20 mg PO DAILY [facility] Last Admin: 02/21/24 08:12 Dose: Not Given Documented By: RAQUEL Non-Admin Reason: Patient Refused Glucose (Glucose Gel 15 Gm Gel..Gram.) 15 gm PO Q15M PRN; Protocol PRN Reason: per Hypoglycemia Standing Ord. Dextrose (D10) 250 mls @ 750 mls/hr IV Q15M PRN; Protocol PRN Reason: per Hypoglycemia Standing Ord. Diltiazem HCl 125 mg/ Sodium (Chloride) 125 mls @ 0 mls/hr IVCONT .Q0M [facility]; Protocol Insulin Glargine (Insulin Glargine,Hum.Rec.Anlog 100 Unit/Ml 10 Ml Vial) 30 unit SUBCUT BID [facility] Last Admin: 02/21/24 08:12 Dose: Not Given Documented By: RAQUEL Non-Admin Reason: Patient Refused Insulin Human Lispro (Insulin Lispro 100 Unit/Ml 3 Ml Vial) 0 unit SUBCUT QIDACHS [facility]; Protocol Last Admin: 02/21/24 08:11 Dose: Not Given Documented By: RAQUEL Non-Admin Reason: Patient Refused Magnesium Hydroxide (Milk Of Magnesia 30 Ml Oral.Susp) 30 ml PO DAILY PRN PRN Reason: Constipation Melatonin (Melatonin 3 Mg Tablet) 6 mg PO BEDTIME PRN PRN Reason: Insomnia Methadone HCl (Methadone Hcl 20 Mg/2 Ml Oral.Conc) 20 mg PO DAILY@0800 [facility] Last Admin: 02/21/24 08:11 Dose: Not Given Documented By: RAQUEL Non-Admin Reason: Patient Refused Metoprolol Tartrate (Metoprolol Tartrate 25 Mg Tablet) 25 mg PO BID [facility]; Protocol Ondansetron HCl (Ondansetron Hcl 4 Mg/2 Ml Vial) 4 mg IVPUSH Q6H PRN PRN Reason: Nausea and Vomiting Last Admin: 02/21/24 06:09 Dose: 4 mg Documented By: CALVIN Sodium Chloride (0.9 % Sodium Chloride Flush 3 Ml Syringe) 3 ml IVFLUSH QSHIFT [facility] Last Admin: 02/21/24 08:11 Dose: Not Given Documented By: RAQUEL Non-Admin Reason: Patient Refused Tramadol HCl (Tramadol Hcl 50 Mg Tablet) 50 mg PO TID PRN PRN Reason: Pain, Moderate(Pain Scale 4-6) Zolpidem Tartrate (Zolpidem Tartrate 5 Mg Tablet) 10 mg PO BEDTIME PRN PRN Reason: insomnia Labs 12/10/24 07:15 02/19/24 07:15 Labs: Laboratory Results - last 24 hr 02/20/24 02/20/24 02/21/24 15:57 20:22 07:06 POC Glucose 234 H 225 H 152 H Assessment and Plan (1) Wide-complex tachycardia: Status: Acute (2) Atrial flutter with rapid ventricular response: Status: Acute Assessment and Plan: 53M PMH pafib, dm, morbid obesity, polysubstance dependence, mood idosrder, HTN, presented with presyncope Presyncope due to wide complex tachycardia intialy:AFib with aberrancyvs Monomorphic VT can not be ruled out entirely. echo-preserved LV ejection fraction. went for stress test today-found to have afib/rvr -was given metoprolol 5mg IV x2 and a loading 150mg bolus of amidorone. cardiology rec-start diltiazem drip and conitnue amiodarone and metorpolol. Diabetes with hyperglycemia Basal bolus insulin Morbid obesity Weight loss recommended Mood disorder buspirone drug use:Complete cessation of drug abuse including use of stimulants was discussed with him. addiction team nancy, currently methodone 10 mg po q3h prn DVT prophylaxis with Eliquis Full Code ongoing possible atrial flutter with aberrant conduction - need tele monitering and further stress test for eval inpatient. Quality Stroke Does the patient have a stroke diagnosis?: No VTE Prior VTE?: No VTE Risk Level:: Medical - moderate - high VTE Device Contraindication: Treatment Not Indicated VTE Drug Contraindication: N/A - Med Ordered
[2024-02-21 13:15] LABS: Glucose, Whole Blood 262 mg/dL (60-115)
[2024-02-21] MEDS: Insulin Lispro 100 UNIT/ML 3 ML VIAL SUBCUT (13:22)
[2024-02-21] MEDS: methADONE HCl 20 MG/2 ML ORAL.CONC PO (13:47)
--- NOTE | 2024-02-21 15:17 | MHC.RECOVRN ---
Met with pt in 469 to follow up and provide support. Pt conducting self directed discharge. Pt tearful, reporting he just wants to go home. Discussed risks with leaving the hospital, including , pt verbalizes understanding. Pt would like to continue methadone after discharge with [facility]. Denies other questions or concerns for t/w. Referral sent to [facility].
--- NOTE | 2024-02-21 15:30 | P.DS_ITS ---
DS: Providers Provider Date of Service: 02/21/24 Date of admission: 02/18/24 16:28 Date of discharge: 02/21/24 Primary care physician: Julio Carter MD Consults: 02/18/24 13:22 Consult to Cardiology Stat Consulting Provider: [facility] Reason for consultation: Dakota Woodward Has provider been notified: No 02/19/24 09:38 Addiction Medicine Routine Consulting Provider: Addiction Covering Reason for consultation: Drug use Attending physician on discharge: Kassie Jerry Discharging clinician: Kassie Jerry DS: Diagnosis Discharge Diagnosis (1) Wide-complex tachycardia: Status: Acute (2) Atrial flutter with rapid ventricular response: Status: Acute DS: Summary Hospital Course Hospital Course: HPI:53M PMH pafib, dm, morbid obesity, polysubstance dependence, mood idosrder, HTN, presented with presyncope. Patient states he was walking uphill outside and started becoming short of breath, diaphoretic, dizzy felt like he was going to pass out raised his hand for help and some called EMS. EMS arrived and found patient to be in wide complex tachycardia and shocked patient who converted to sinus rhythm. Patient never lost consciousness. Feels close to baseline now. In ED was initiated on amiodarone drip. hospital course: Patient was admitted for wide complex tachycardia which was thought to be AFib with aberrancy vs monomorphic ventricular tachycardia can not be ruled out entirely- patient was started amiodarone drip and also received metoprolol, echo was done-preserved LV ejection fraction. Patient was also seen by Cardiology and followed during this admission-patient went to stress test today-where patient went into AFib with RVR(received beta-haydee and amiodarone IV)-patient converted to sinus rhythm after that, Cardiology strongly recommended to monitor on tele for few hours but patient does not want to stay. He says I just want to go home. Risk of leaving against medical advice discussed with him in detail including life-threatening arrhythmias and even . He understand and could replicate back. Patient was strongly advised to go to nearest emergency room for further management. In addition patient was given amiodarone and metoprolol prescription, continue Eliquis. cardiology may arrange their own appointment. plan: Time Attestation Discharge Coordination Time (in mins): 40min Quality: Safe Use of Opioids Does Pt have an Active Cancer Diagnosis on the Problem List?: No Quality: Stroke Does the patient have a stroke diagnosis?: No Physical Exam Vital Signs: Vital Signs: Last Vital Signs Temp 98.0 F 02/21/24 12:00 Pulse 80 02/21/24 12:00 Resp 20 02/21/24 12:00 BP 145/76 H 02/21/24 12:00 Pulse Ox 95 02/21/24 12:00 O2 Del Method Room Air 02/21/24 12:00 Oxygen Flow Rate 2 02/18/24 13:20 BMI result Body Mass Index 46.4 refused . DS: Data Data Completed and Pending Labs on day of discharge: Laboratory Results - last 24 hr 02/20/24 02/20/24 02/21/24 15:57 20:22 07:06 POC Glucose 234 H 225 H 152 H 02/21/24 13:09 POC Glucose 262 H Discharge Plan Discharge Anticipated Discharge Date/Time: 02/21/24 15:19 Patient Disposition: Left Against Medical Advice Discharge Diagnosis: wide complex tachycardia Referrals: Julio Carter MD [Primary Care Provider] - 1 Week Discharge Medications: New amiodarone 200 mg Tablet 400 mg PO BID Qty: 120 0RF Rx Instructions: take amiodarone 400 mg(2 tabs) po bid ( until 03/04/24) ,then switch to amiodarone 200mg (1 tab)daily on 03/05/24 . metoprolol tartrate 25 mg tablet 25 mg PO BID Qty: 120 0RF methadone [Methadose] 10 mg/mL Concentrate 20 mg PO DAILY@0800 Qty: 1 0RF Rx Instructions: Partial Fill upon patient request. Continued (DME) Dexcom G7 Shipping Room Helper Misc See Rx Instructions .Route Qty: 1 0RF Rx Instructions: As directed (DME) pen needle, diabetic [BD Ultra-Fine Mini Pen Needle] 31 gauge x 3/16 needle See Rx Instructions .ROUTE .COMPLEX Qty: 100 3RF Dose Instruction: USE DIRECTED ONCE DAILY Rx Instructions: USE DIRECTED ONCE DAILY albuterol sulfate [Ventolin HFA] 90 mcg/actuation HFA aerosol inhaler 2 puff inhalation Q4-6H PRN (Reason: wheezing and/or shortness of breath) Qty: 8.5 2RF Eliquis 5 mg tablet 5 mg PO BID 30 Days Qty: 60 2RF Rx Instructions: x30 dats (DME) Dexcom G7 Sensor Device See Rx Instructions .Route Qty: 3 4RF Rx Instructions: As directed change every 10 days zolpidem 10 mg tablet 10 mg PO BEDTIME PRN (Reason: insomnia) Qty: 30 1RF tramadol 50 mg tablet 50 mg PO TID PRN (Reason: pain) 30 Days Qty: 90 0RF buspirone 30 mg tablet 30 mg PO BID Ozempic 1 mg/dose (4 mg/3 mL) pen injector 1 mg subcut PINTO lidocaine 5 % adhesive patch,medicated 2 patch topical DAILY PRN (Reason: Pain) insulin glargine [Lantus Solostar U-100 Insulin] 100 unit/mL (3 mL) insulin pen 60 unit subcut BEDTIME escitalopram oxalate 20 mg tablet 20 mg PO DAILY metformin 1,000 mg tablet 1,000 mg PO BID clotrimazole-betamethasone 1-0.05 % cream 1 appl topical BID PRN (Reason: balanitis) Qty: 45 2RF Rx Instructions: apply to affected area bid for 7 days then bid (DME) ROLLATOR See Rx Instructions .Route .MEDSUPPLY Qty: 1 0RF Rx Instructions: As directed Saline Nasal 0.65 % aerosol,spray 2 spray intranasal QID PRN (Reason: dry nasal passages) Qty: 44 5RF (DME) FreeStyle Lite Strips Strip See Rx Instructions .ROUTE TID Qty: 10 Rx Instructions: As directed Discontinued diltiazem HCl [Cardizem CD] 240 mg capsule,extended release 24hr 240 mg PO DAILY Qty: 30 0RF Discharge Orders: Discharge Order (Routine); Ordered 02/21/24 Ordered By: Kassie Jerry Diet: Advance to usual diet Activity on Discharge: As tolerated Stand Alone Forms: Patient Portal Discharge page Print Language: Singaporean Care Plan Goals: Patient was admitted for wide complex tachycardia which was thought to be AFib with aberrancy vs monomorphic ventricular tachycardia can not be ruled out entirely- patient was started amiodarone drip and also received metoprolol, echo was done-preserved LV ejection fraction. Patient was also seen by Cardiology and followed during this admission-patient went to stress test today-where patient went into AFib with RVR(received beta-haydee and amiodarone IV)-patient converted to sinus rhythm after that, Cardiology strongly recommended to monitor on tele for few hours but patient does not want to stay. He says I just want to go home. Risk of leaving against medical advice discussed with him in detail including life-threatening arrhythmias and even . He understand and could replicate back. Patient was strongly advised to go to nearest emergency room for further management. In addition patient was given amiodarone and metoprolol prescription, continue Eliquis. cardiology may arrange their own appointment. Health Concerns: as above. Plan of Treatment: Patient was strongly advised to abstain from recreational drug use. patient says he is to follow with [facility] tomorrow. Amiodarone 400 mg b.i.d. until 03/04/24 , return switched to amiodarone 200 mg daily on03/05/24. Metoprolol 25 mg b.i.d. Assessment: as above.
== END 2024-02-21 15:59 | disposition left against medical advice (07) | DRG 201 ==
LOC: HO.ED 16:08 → HO.EDOVER 16:41 → HO.IMC 02-19 02:21
PROVIDERS: Admitting Provider Internal Medicine; Emergency Provider Emergency Medicine; PCP Internal Medicine; Visit Provider Internal Medicine
DX: I47.20 Ventricular tachycardia, unspecified (principal); I48.92 Unspecified atrial flutter; E11.65 Type 2 diabetes mellitus with hyperglycemia; E66.01 Morbid (severe) obesity due to excess calories; I48.0 Paroxysmal atrial fibrillation; F19.20 Other psychoactive substance dependence, uncomplicated; F39 Unspecified mood [affective] disorder; Z68.42 Body mass index [BMI] 45.0-49.9, adult; Z79.4 Long term (current) use of insulin; Z79.01 Long term (current) use of anticoagulants; Z79.85 Long-term (current) use of injectable non-insulin antidiabetic drugs; Z79.899 Other long term (current) drug therapy
CPT/HCPCS: 36415; 71045; 80048; 80053; 80307; 82947; 83735; 84484; 85025; 85027; 93005; 93306; 93351; 99285; J0282; J1250; J2405; Q9957; S9485

== ENCOUNTER → 2024-02-18 13:59 | Outpatient (BNV) | payer OTHER, SELFPAY | PROVIDERS: Emergency Provider Emergency Medicine; PCP Internal Medicine; Visit Provider Internal Medicine Cardiovascular Disease | DX: R00.0 Tachycardia, unspecified (principal) | CPT/HCPCS: 99222; 99233 ==

== ENCOUNTER 2024-02-18 16:28 | Outpatient (BNV) | payer OTHER, SELFPAY | END 2024-02-21 13:35 | PROVIDERS: Admitting Provider Internal Medicine; Emergency Provider Emergency Medicine; PCP Internal Medicine; Visit Provider Internal Medicine Cardiovascular Disease | DX: R94.31 Abnormal electrocardiogram [ECG] [EKG] (principal) | CPT/HCPCS: 93010 ==

== ENCOUNTER 2024-02-18 16:28 | Outpatient (BNV) | payer OTHER, SELFPAY | END 2024-02-19 07:00 | PROVIDERS: Admitting Provider Internal Medicine; Emergency Provider Emergency Medicine; PCP Internal Medicine; Visit Provider Internal Medicine Cardiovascular Disease | DX: I36.1 Nonrheumatic tricuspid (valve) insufficiency (principal) | CPT/HCPCS: 93010; 93306 ==

== ENCOUNTER → 2024-02-18 16:28 | Outpatient (BNV) | payer OTHER, SELFPAY | PROVIDERS: Admitting Provider Internal Medicine; Emergency Provider Emergency Medicine; PCP Internal Medicine; Visit Provider Internal Medicine | DX: R00.0 Tachycardia, unspecified (principal); I48.92 Unspecified atrial flutter | CPT/HCPCS: 99223; 99232 ==

== ENCOUNTER → 2024-02-18 16:28 | Outpatient (BNV) | payer OTHER, SELFPAY | PROVIDERS: Admitting Provider Internal Medicine; Emergency Provider Emergency Medicine; PCP Internal Medicine; Visit Provider Nurse Practitioner Psychiatric/Mental Health | DX: F11.90 Opioid use, unspecified, uncomplicated (principal) | CPT/HCPCS: 99231; 99232 ==

== ENCOUNTER 2024-02-29 14:00 | Outpatient (AMB) | payer OTHER, SELFPAY ==
--- NOTE | 2024-02-29 14:02 | MHC.OFFVIS ---
Vital Signs 02/29/24 14:06 Height 5 ft 10 in Weight 304 lb 14.389 oz BMI 43.7 BP 128/70 Blood Pressure Location Rt brachial Position Sitting Pulse 91 Pulse Source Pulse Oximeter Intake Visit Reasons: T2DM/CONF Intake Note: Patient present today to follow up on Type 2 Diabetes Mellitus. Last Diabetic Eye exam: Due Last Podiatry Visit: Does not see a Single Pointed Operator Random Glucose: 387 mg/dl HgA1C: >14.0% 01/22/24 Fuel Management Handler Required: No Accompanied by: Self / Same As Patient Allergies Penicillins [PENICILLINS] Allergy (Unknown, Verified 02/29/24 14:09) RASH HPI Comments Details: This is a 53-year-old male with a past medical history of polysubstance abuse, uncontrolled type 2 diabetes, depression, atrial flutter with RVR, PTSD presenting for diabetic management. The last time the patient was here he refused to go to the ED for tachycardia. The patient had a near syncopal episode the following Sunday while trying to get to his appointment with the nursing educator. He was defibrillated in the field by EMS for possible V-tach versus atrial fibrillation with RVR and aberrant conduction. Patient says he has been compliant with medications since then. Patient says he is not going to addiction medicine/methadone clinic. He is using heroin. Patient endorses compliance with Ozempic 1 mg weekly, Metformin 1000 mg BID and Lantus 60 units nightly since being in the hospital. His hemoglobin A1c was over 14% 01/22/2024. Patient lost his CGM reader, deleted the sonny office phone, and he misplaced his sensors for the month. We reviewed his glucometer download, but there is a paucity of data. All readings are high. Denies hypoglycemia. Endorses polyuria, polydipsia and dry lips with high sugars. He is overdue for an eye exam. ROS: Constitutional: No fevers or chills. Eyes: No vision changes, blurry vision, double vision Respiratory: No shortness of breath, cough or sputum production. Cardiovascular: No chest pain, chest pressure, palpitations. Endocrine: Endorses polyuria and polydipsia. Psychiatric: Endorses depression and anxiety. Denies SI/HI. Physical exam: Constitutional: Alert, in no distress. Respiratory: Clear to auscultation. Cardiovascular: S1 S2 regular. No murmurs. Extremities: Warm and well perfused. No clubbing, cyanosis or edema. 1+ lower extremity edema bilaterally. Psychiatric: Normal mood and affect [facility] Medical History (Updated 02/29/24 @ 14:51 by GHULAM Jean) Uncontrolled type 2 diabetes mellitus with hyperglycemia Tachycardia Type 2 diabetes mellitus with hyperglycemia Paroxysmal atrial fibrillation Morbid obesity Substance abuse Essential hypertension Cocaine abuse Erectile dysfunction Polysubstance abuse Paroxysmal atrial fibrillation with rapid ventricular response Lumbar degenerative disc disease Substance abuse Diabetes Depression Overactive bladder Arthritis BPH (benign prostatic hyperplasia) Asthma Seizure Morbid obesity with BMI of 40.0-44.9, adult Benign essential hypertension Insomnia Primary osteoarthritis of both knees Anxiety Family history of thyroid disorder Surgical History No history of previous surgery Family History Father ETOH abuse Mother Diabetes Arthritis of knee Hypertension Other Mental health problem Substance abuse Social History Household Members: Friend(s) Household Members Other:: rents a room in a house Housing: House Housing Other:: rents a room Alcohol intake: current Alcohol intake frequency: does not drink Comment: patient refused Patient Tobacco Use Status: Never used Tobacco e-Cigarette/Vaping Use: Never Used Second Hand Smoke Exposure: No Substance Use Type: Marijuana and Opiates Advance Directives Date on File: 02/23/22 service: No Current occupational status: unemployed and disabled Sexual orientation: Straight/Heterosexual Cognitive needs: No Hearing needs: No Vision needs: No Physical Exam Vital Signs: Last Vital Signs Pulse 91 02/29/24 14:06 BP 128/70 02/29/24 14:06 BMI result Body Mass Index 43.7 Results Reviewed Results Reviewed: Laboratory Last Values Glucose (Clinic) 387 mg/dL (60-115) H* 02/29/24 14:15 Assessment & Plan Assessment & Plan (1) Uncontrolled type 2 diabetes mellitus with hyperglycemia: Code(s): E11.65 - Type 2 diabetes mellitus with hyperglycemia Category: Medical Plan In summary this is a 53-year-old male with uncontrolled type 2 diabetes. Treatment complicated by polysubstance abuse and noncompliance. Increase Ozempic to 2 mg once weekly. Continue metformin 1000 mg twice a day. Continue Lantus 60 units daily. Reassess insulin requirement once more data is available from CGM. Provided patient was sample reader and sensors today. I started the discussion about prandial insulin, but patient says he will not be compliant with this. Referred for diabetic eye exam. Patient followed by nursing educator. Follow up in 2 weeks. Medications: New semaglutide (Ozempic) 2 mg (0.75 mL) subcut QWEEK 3 mL 5RF Coding Level of Care Code Est Pt Level 4 (38819) Complex EM visit Add On G2211 Diagnoses Uncontrolled type 2 diabetes mellitus with hyperglycemia E11.65
[2024-02-29 14:06] VITALS: BP 128/70; PULSE 91; BMI 43.7
[2024-02-29 14:20] LABS: Glucose, Whole Blood 387 mg/dL (60-115)
== END 2024-02-29 14:48 | disposition home or self-care (01) ==
PROVIDERS: PCP Internal Medicine; Visit Provider Physician Assistant Medical
DX: E11.65 Type 2 diabetes mellitus with hyperglycemia (principal)

== ENCOUNTER → 2024-02-29 14:00 | Outpatient (BNVA) | payer OTHER, SELFPAY | PROVIDERS: PCP Internal Medicine; Visit Provider Physician Assistant Medical | DX: E11.65 Type 2 diabetes mellitus with hyperglycemia (principal) | CPT/HCPCS: 82947; 99212 ==

== ENCOUNTER 2024-03-13 13:34 | Outpatient (AMB) | payer OTHER, SELFPAY ==
[2024-03-13 13:44] VITALS: BP 118/60; PULSE 97; BMI 43.0
--- NOTE | 2024-03-13 13:44 | MHC.OFFVIS ---
Vital Signs 03/13/24 13:44 Height 5 ft 10 in Weight 299 lb 13.259 oz BMI 43.0 BP 118/60 Blood Pressure Location Lt brachial Position Sitting Pulse 97 Pulse Source Monitor Intake Visit Reasons: f/[place]- [facility] [place] Allergies Penicillins [PENICILLINS] Allergy (Unknown, Verified 03/13/24 14:36) RASH Medication List - Last Reconciled 03/13/24 by Duc Hays NP albuterol sulfate 90 mcg/actuation (Ventolin HFA) 2 puffs inhalation Q4-6H PRN amiodarone 400 mg (2 x 200 mg) PO BID apixaban (Eliquis) 5 mg PO BID 30 days blood sugar diagnostic (FreeStyle Lite Strips) As directed blood-glucose meter,continuous (DexPairy G7 Extension Forester) As directed blood-glucose sensor (Dexcom G7 Sensor device) As directed change every 10 days buspirone 30 mg PO BID clotrimazole-betamethasone 1-0.05 % 1 appl topical BID PRN diltiazem HCl CD (Cardizem CD) 240 mg PO DAILY escitalopram oxalate 20 mg PO DAILY insulin glargine (Lantus Solostar U-100 Insulin) 60 units (0.6 mL) subcut BEDTIME lidocaine 5% 2 patches topical DAILY PRN metformin 1,000 mg PO BID methadone (Methadose) 20 mg (2 mL) PO DAILY@0800 metoprolol tartrate 25 mg PO BID pen needle, diabetic (BD Ultra-Fine Mini Pen Needle) USE DIRECTED ONCE DAILY [ROLLATOR As directed] semaglutide (Ozempic) 2 mg (0.75 mL) subcut QWEEK sodium chloride 0.65% (Saline Nasal) 2 sprays intranasal QID PRN tramadol 50 mg PO TID PRN 30 days zolpidem 10 mg PO BEDTIME PRN HPI Comments Details: This is a 53-year-old male patient presenting for hospital discharge follow-up. He has history of diabetes, obesity, atrial flutter with RVR on Eliquis, and polysubstance abuse. Patient was previously seen in the hospital for A flutter with RVR was treated with Cardizem and metoprolol and was discharged home. Patient was admitted this time for the same issue but this time patient experienced lightheadedness, shortness of breath and overall not feeling well prompting him to fly down EMS. EMS noted a wide complex tachycardia to 80 beats per minute (unclear due to single lead EKG). Patient underwent synchronized cardioversion without sedation in the ambulance and was successfully converted back to sinus rhythm. During his hospital stay, patient was started on amiodarone drip which was later transitioned to oral amiodarone. Patient ended up leaving against medical advice, states he was uncomfortable with the hospital with his back issues and was anxious. Patient states he has been compliant on his medication regimen. Patient is a little teary today, as he just learned from his sister that his mother has been hospitalized due to heart attack. Otherwise, today the patient denies any cardiac symptoms including chest pain, palpitations, shortness of breath, lightheadedness, presyncope, or syncope. [facility] Medical History Uncontrolled type 2 diabetes mellitus with hyperglycemia Tachycardia Type 2 diabetes mellitus with hyperglycemia Paroxysmal atrial fibrillation Morbid obesity Substance abuse Essential hypertension Cocaine abuse Erectile dysfunction Polysubstance abuse Paroxysmal atrial fibrillation with rapid ventricular response Lumbar degenerative disc disease Substance abuse Diabetes Depression Overactive bladder Arthritis BPH (benign prostatic hyperplasia) Asthma Seizure Morbid obesity with BMI of 40.0-44.9, adult Benign essential hypertension Insomnia Primary osteoarthritis of both knees Anxiety Family history of thyroid disorder Surgical History No history of previous surgery Family History Father ETOH abuse Mother Diabetes Arthritis of knee Hypertension Other Mental health problem Substance abuse Social History Household Members: Friend(s) Household Members Other:: rents a room in a house Housing: House Housing Other:: rents a room Alcohol intake: current Alcohol intake frequency: does not drink Comment: patient refused Patient Tobacco Use Status: Never used Tobacco e-Cigarette/Vaping Use: Never Used Second Hand Smoke Exposure: No Substance Use Type: Marijuana and Opiates Advance Directives Date on File: 02/23/22 service: No Current occupational status: unemployed and disabled Sexual orientation: Straight/Heterosexual Cognitive needs: No Hearing needs: No Vision needs: No Review of Systems Const Denies weakness ENT Denies dizziness Card Denies chest pain, Denies chest pain with activity, Denies syncope, Denies rapid heart rate, Denies pedal edema, Denies edema, Denies leg edema, Denies lightheadedness, Denies palpitations, Denies dyspnea, Denies dyspnea on exertion and Denies orthopnea Resp Denies cough, Denies dyspnea and Denies dyspnea on exertion GI Denies hematochezia and Denies change in stool character Musc Denies abnormal gait, Denies muscle cramps, Denies muscle weakness, Denies numbness, Denies radiating pain into limb and Denies tingling Neuro Denies abnormal gait, Denies dizziness, Denies syncope, Denies numbness, Denies tingling and Denies weakness Endo Denies palpitations Physical Exam Vital Signs: Last Vital Signs Pulse 97 03/13/24 13:44 BP 118/60 03/13/24 13:44 BMI result Body Mass Index 43.0 Const General: cooperative, healthy appearing, comfortable and no acute distress Orientation/consciousness: patient oriented x3 HEENT Head: Yes normal to inspection Neck Neck: Yes normal visual inspection, Yes trachea midline and Yes supple Chest Chest palpation & inspection: normal inspection of the chest Resp Effort & Inspection: normal respiratory effort Auscultation: clear to auscultation bilaterally, no crackles, no rales, no rhonchi and no wheezes Cardio Jugular venous distension: no JVD Palpation: normal PMI Rate: regular rate Rhythm: regular rhythm Heart sounds: S1 normal heart sound present, S2 normal heart sound present, no click, no gallops, no murmurs and no rubs Peripheral pulses: Peripheral pulses 2+ throughout GI Inspection: Yes normal to inspection Palpation (GI): Soft to palpation Auscultation: normal bowel sounds Skin General skin exam: no rashes or lesions noted Neuro General: patient oriented x3 Extrem General: Yes normal to inspection, No no pedal edema and No calf tenderness Psych Appearance: grossly normal Mental Status: mental status grossly normal Speech and movement: Normal speech and movement present Affect: Sad affect present Office Procedures EKG Details: EKG today shows underlying normal sinus rhythm 97 beats per minute, rightward axis, nonspecific ST-T wave abnormalities normal ME, normal QTC at 477 milliseconds. [id number], Complete Assessment & Plan Assessment & Plan (1) Paroxysmal atrial fibrillation with rapid ventricular response: Code(s): I48.0 - Paroxysmal atrial fibrillation Category: Medical (2) Hospital discharge follow-up: Code(s): Z09 - Encounter for follow-up examination after completed treatment for conditions other than malignant neoplasm Plan EKG today was normal sinus rhythm. 02/19/2024- echo showed normal EF 55-60% with mild LVH with pseudo normal filling pattern, mildly dilator RV, mildly dilated LA, normal RV systolic pressure with elevated right atrial pressures, normal cardiac valvular Dopplers. 02/21/2024- dobutamine stress ECHO, eventful. During the test patient chest pain, had bursts of AFib with RVR, then wide complex tachycardia rate of 180s then followed by AFib RVR in the 160s, had to be treated with IV metoprolol 5 mg x2 with no effect, required IV bolus amiodarone 150 mg. However, stress echo was negative for ischemia. Patient converted back to sinus rhythm but decided to leave against medical advice. Discussed the importance of adhering to Amiodarone and Metoprolol therapy. We will get a Holter to assess for any potential episodes of arrhythmia. Continue with Eliquis 5 mg b.i.d.. Discussed benefits from possible ablation therapy for his a flutter, agreeable to see an EP. Explained in detail the procedure, its risks and benefits. All questions answered. Referral placed to [facility] [place] [facility]. Recommended heart healthy diet, exercise, weight management, smoking cessation, and to absolutely avoid using any street drugs including cocaine or heroin. Verbalizes understanding. We will follow-up in 4 months. In the interim, patient will call us with any concerns. Orders: Orders AMB EKG-In Office Today I48.0 - Paroxysmal atrial fibrillation ECG 3 day holter monitor Today I48.0 - Paroxysmal atrial fibrillation Referrals Cardiac Electrophysiology Referral I48.92 - Unspecified atrial flutter, R00.0 - Tachycardia, unspecified Coding Level of Care Code Est Pt Level 4 (90667) Diagnoses Paroxysmal atrial fibrillation with rapid ventricular response I48.0 Hospital discharge follow-up Z09 CPT Codes EKG - CPT: 98221-[id number], Complete ([id number]) Time Spent (min) 31 Comment Time spent in reviewing the chart, test results, assessment, counseling and documentation.
== END 2024-03-13 14:36 | disposition home or self-care (01) ==
PROVIDERS: PCP Internal Medicine
DX: I48.0 Paroxysmal atrial fibrillation (principal); Z09 Encounter for follow-up examination after completed treatment for conditions other than malignant neoplasm
CPT/HCPCS: 93010; 99214

== ENCOUNTER 2024-03-13 15:32 | Outpatient (REF) | payer OTHER, SELFPAY ==
[2024-03-13 15:50] LABS: MANUAL DIFF FLAG NO
[2024-03-13 16:20] LABS: Basophils Percent Auto 0.3 % (0-2); Eosinophils Absolute Auto 0.1 X10*3/uL (0.0-0.4); Eosinophils Percent Auto 1.5 % (0-4); Hematocrit 43.4 % (42.0-52.0); Hemoglobin 14.3 g/dl (14.0-18.0); Imm Gran Abs Auto 0.01 X10*3/uL (0.00-0.03); Imm Gran Pct Auto 0.1 % (0.0-0.4); Lymphocytes Absolute Auto 1.5 X10*3/uL (1.2-4.9); Lymphocytes Percent Auto 22.5 % (20-40); Mean Corpuscular HGB Conc 32.9 g/dl (31.0-36.0); Mean Corpuscular Volume 91.2 fL (80.0-98.0); Mean Platelet Volume 10.6 fL (9.4-12.4); Monocytes Absolute Auto 0.4 X10*3/uL (0.1-1.2); Monocytes Percent Auto 5.4 % (2-11); Neutrophils Absolute Auto 4.8 x10*3/uL (2.0-8.3); Neutrophils Percent Auto 70.2 % (45-73); Platelet Count 300 X10*3/uL (160-400); Red Blood Count 4.76 X10*6/uL (4.60-5.80); Red Cell Distribution Width 12.2 % (11.0-16.0); White Blood Count 6.9 X10*3/uL (4.8-10.8)
[2024-03-13 16:29] LABS: Estimated Average Glucose 352 mg/dL; Hemoglobin A1C 475.8681 umol/L; Hemoglobin A1c % 13.9 % (<6.0); Total Hemoglobin (HGBA1C) 3711.4266 umol/L
[2024-03-13 16:41] LABS: Appearance Urine Clear; Color Urine Yellow; Glucose Urine UA >=1000 mg/dL (Negative); Leukocyte Esterase Urine Negative (Negative); Nitrite Urine Negative (Negative); PH 5.5 (5.0-9.0); Specific Gravity - Urine >= 1.030 (1.005-1.025); UMIC TRIGGER UACC YES; Urine Blood Negative (Negative); Urine Ketones Negative (Negative); Urine Protein Negative (Neg-Trace)
[2024-03-13 16:46] LABS: Bacteria Urine None Seen (None Seen); Hyaline Casts Urine 0-2 /LPF (0-2); RBC Urine 0-2 /HPF (0-2); Squamous Epithelial Cell Urine 0-2 /HPF (0-2); WBC Urine 0-5 /HPF (0-5)
[2024-03-13 16:58] LABS: Alanine Aminotransferase 35 U/L (0-40); Alkaline Phosphatase 99 U/L (39-117); Anion Gap 11 (12-20); Aspartate Amino Transferase 24 U/L (5-37); Bilirubin Total 0.5 mg/dL (0.0-1.0); Blood Urea Nitrogen 18 mg/dL (9-16); Carbon Dioxide 28 mmol/L (22-29); Chloride 104 mmol/L (96-108); Cholesterol 150 mg/dL (<200); Estimated Glomerular Filt Rate > 60; Glucose Fasting 311 mg/dL (60-99); HDL Cholesterol 41 mg/dL (>40); LDL Cholesterol Calculated 69 mg/dL (<100); Potassium 4.4 mmol/L (3.3-5.1); Sodium 139 mmol/L (135-145); Total Protein 7.1 g/dL (6.5-8.0); Triglycerides 200 mg/dL (<150)
[2024-03-13 17:01] LABS: Creatinine Urine 103.05 mg/dL; Microalbum/Creatinine Ratio Ur 26.2 ug/mg cr (<30)
[2024-03-13 17:14] LABS: TSH reflex Free T4 1.14 uIU/mL (0.32-4.0); Vitamin D 25-OH Total 18.7 ng/mL (>30)
== END 2024-03-13 15:33 | disposition home or self-care (01) ==
LOC: HO.LAB 15:32
PROVIDERS: PCP Internal Medicine; Visit Provider Internal Medicine
DX: E78.00 Pure hypercholesterolemia, unspecified (principal); E55.9 Vitamin D deficiency, unspecified; D64.9 Anemia, unspecified; E11.9 Type 2 diabetes mellitus without complications; I48.0 Paroxysmal atrial fibrillation; Z09 Encounter for follow-up examination after completed treatment for conditions other than malignant neoplasm
CPT/HCPCS: 36415; 80053; 80061; 81001; 82043; 82306; 82570; 83036; 84443; 85025; 93005; 99212

== ENCOUNTER 2024-03-25 12:29 | Outpatient (AMB) | payer OTHER, SELFPAY ==
--- NOTE | 2024-03-25 13:07 | A.OFFVIS_ITS ---
Vital Signs 03/25/24 13:41 Height 5 ft 10 in Weight 300 lb BMI 43.0 BP 132/74 Blood Pressure Location Lt brachial Position Sitting Pulse 93 Pulse Source Pulse Oximeter Intake Visit Reasons: DM Intake Note: Patient present today to follow up on Type 2 Diabetes Mellitus. Last Diabetic Eye exam: Due Last Podiatry Visit: Does not see a Sterilisation Technician Random Glucose: 287 mg/dl HgA1C: 13.9% 03/13/2024 Internal Medicine Doctor Required: No Accompanied by: Self / Same As Patient Allergies Penicillins [PENICILLINS] Allergy (Unknown, Verified 03/25/24 13:41) RASH HPI Comments Details: This is a 53-year-old male with a past medical history of polysubstance abuse, uncontrolled type 2 diabetes, depression, atrial flutter with RVR, PTSD presenting for diabetic management. His diabetic management has been complicated by polysubstance abuse and recent hospitalizations. He had a recent appointment with Cardiology and was referred to EP. He denies palpitations, chest pain and shortness of breath. Patient reports that his mother is currently hospitalized following a heart attack. Patient admits to some noncompliance with his medications. He did not take metformin or Lantus last night. He is prescribed Ozempic 1 mg weekly, Metformin 1000 mg BID and Lantus 60 units nightly. I provided patient with Dexcom G7 sensors less than a month ago. He is requesting additional samples again today. We also confirmed with the pharmacy that he picked up his sensors 2 days ago. Patient says that he missed placed some or that his sister accidentally took them in a bag. He does not have a glucometer with him today. Endorses polyuria, polydipsia and dry lips with high sugars. Denies hypoglycemia. He is overdue for an eye exam. ROS: Constitutional: No fevers or chills. Eyes: No vision changes, blurry vision, double vision Respiratory: No shortness of breath, cough or sputum production. Cardiovascular: No chest pain, chest pressure, palpitations. Endocrine: Endorses polyuria and polydipsia. Psychiatric: Endorses depression and anxiety. Denies SI/HI. Physical exam: Constitutional: Alert, in no distress. Respiratory: Clear to auscultation. Cardiovascular: S1 S2 regular. No murmurs. Extremities: Warm and well perfused. No clubbing, cyanosis or edema. 1+ lower extremity edema bilaterally. Psychiatric: Normal mood and affect [facility] Medical History Uncontrolled type 2 diabetes mellitus with hyperglycemia Tachycardia Type 2 diabetes mellitus with hyperglycemia Paroxysmal atrial fibrillation Morbid obesity Substance abuse Essential hypertension Cocaine abuse Erectile dysfunction Polysubstance abuse Paroxysmal atrial fibrillation with rapid ventricular response Lumbar degenerative disc disease Substance abuse Diabetes Depression Overactive bladder Arthritis BPH (benign prostatic hyperplasia) Asthma Seizure Morbid obesity with BMI of 40.0-44.9, adult Benign essential hypertension Insomnia Primary osteoarthritis of both knees Anxiety Family history of thyroid disorder Surgical History No history of previous surgery Family History Father ETOH abuse Mother Diabetes Arthritis of knee Hypertension Other Mental health problem Substance abuse Social History Household Members: Friend(s) Household Members Other:: rents a room in a house Housing: House Housing Other:: rents a room Alcohol intake: current Alcohol intake frequency: does not drink Comment: patient refused Patient Tobacco Use Status: Never used Tobacco e-Cigarette/Vaping Use: Never Used Second Hand Smoke Exposure: No Substance Use Type: Marijuana and Opiates Advance Directives Date on File: 02/23/22 service: No Current occupational status: unemployed and disabled Sexual orientation: Straight/Heterosexual Cognitive needs: No Hearing needs: No Vision needs: No Physical Exam Vital Signs: Last Vital Signs Pulse 93 03/25/24 13:41 BP 132/74 03/25/24 13:41 BMI result Body Mass Index 43.0 Results Reviewed Results Reviewed: Laboratory Last Values Glucose (Clinic) 287 mg/dL (60-115) H 03/25/24 13:53 Assessment & Plan Assessment & Plan (1) Uncontrolled type 2 diabetes mellitus with hyperglycemia: Code(s): E11.65 - Type 2 diabetes mellitus with hyperglycemia Category: Medical Plan In summary this is a 53-year-old male with uncontrolled type 2 diabetes. Treatment complicated by polysubstance abuse and noncompliance. Continue Ozempic 2 mg once weekly. Continue metformin 1000 mg twice a day. Continue Lantus 60 units daily. I explained that we need him to bring his glucometer and check his blood sugars in order to make adjustments to his medication regimen. We also need to see how his blood sugars are when he is compliant with his medications. I explained that I am not able to provide him with additional samples today. He has been given samples by the office on multiple occasions, and despite this the last Dexcom download available was at the beginning of the summer in 2023. I have a concern that he is not the one using the sensors. He has been referred for a diabetic eye exam. Patient followed by inclusion paraeducator. Follow up in 2 weeks. Medications: New blood-glucose meter (FreeStyle Lite Meter kit) Use as directed to check glucose twice daily. 1 ea 0RF E11.9 - Type 2 diabetes mellitus without complications, Z79.4 - assisted (current) use of insulin Coding Level of Care Code Est Pt Level 4 (18191) Complex EM visit Add On G2211 Diagnoses Uncontrolled type 2 diabetes mellitus with hyperglycemia E11.65
[2024-03-25 13:41] VITALS: BP 132/74; PULSE 93; BMI 43.0
[2024-03-25 13:59] LABS: Glucose, Whole Blood 287 mg/dL (60-115)
== END 2024-03-25 14:47 | disposition home or self-care (01) ==
PROVIDERS: PCP Internal Medicine; Visit Provider Physician Assistant Medical
DX: E11.65 Type 2 diabetes mellitus with hyperglycemia (principal)

== ENCOUNTER 2024-03-25 12:29 | Outpatient (AMB) | payer OTHER, SELFPAY ==
--- NOTE | 2024-03-25 12:49 | A.OFFVIS_ITS ---
Intake Intake Visit Reasons: DM Swimming Pool Attendant Required: No Accompanied by: Self / Same As Patient Allergies Penicillins [PENICILLINS] Allergy (Unknown, Verified 03/13/24 14:36) RASH HPI Comprehensive Diabetes Asmnt Most Recent Diabetes Results: Hemoglobin A1c 8.4 % 10/01/19 Microalb/Creat Ratio 26.2 ug/mg cr (<30) 03/13/24 Cholesterol 150 mg/dL (<200) 03/13/24 HDL Cholesterol 41 mg/dL (>40) 03/13/24 Triglycerides 200 mg/dL (<150) H 03/13/24 Creatinine 1.07 mg/dL (0.5-1.4) 03/13/24 Blood Urea Nitrogen 18 mg/dL (9-16) H 03/13/24 Sodium 139 mmol/L (135-145) 03/13/24 Potassium 4.4 mmol/L (3.3-5.1) 03/13/24 Chloride 104 mmol/L (96-108) 03/13/24 Carbon Dioxide 28 mmol/L (22-29) 03/13/24 Calcium 9.0 mg/dL (8.4-10.2) 03/13/24 AST 24 U/L (5-37) 03/13/24 ALT 35 U/L (0-40) 03/13/24 Total Protein 7.1 g/dL (6.5-8.0) 03/13/24 Albumin 4.0 g/dL (3.5-5.0) 03/13/24 [facility] Medical History Uncontrolled type 2 diabetes mellitus with hyperglycemia Tachycardia Type 2 diabetes mellitus with hyperglycemia Paroxysmal atrial fibrillation Morbid obesity Substance abuse Essential hypertension Cocaine abuse Erectile dysfunction Polysubstance abuse Paroxysmal atrial fibrillation with rapid ventricular response Lumbar degenerative disc disease Substance abuse Diabetes Depression Overactive bladder Arthritis BPH (benign prostatic hyperplasia) Asthma Seizure Morbid obesity with BMI of 40.0-44.9, adult Benign essential hypertension Insomnia Primary osteoarthritis of both knees Anxiety Family history of thyroid disorder Surgical History No history of previous surgery Family History Father ETOH abuse Mother Diabetes Arthritis of knee Hypertension Other Mental health problem Substance abuse Social History Household Members: Friend(s) Household Members Other:: rents a room in a house Housing: House Housing Other:: rents a room Alcohol intake: current Alcohol intake frequency: does not drink Comment: patient refused Patient Tobacco Use Status: Never used Tobacco e-Cigarette/Vaping Use: Never Used Second Hand Smoke Exposure: No Substance Use Type: Marijuana and Opiates Advance Directives Date on File: 02/23/22 service: No Current occupational status: unemployed and disabled Sexual orientation: Straight/Heterosexual Cognitive needs: No Hearing needs: No Vision needs: No Assessment & Plan Assessment & Plan (1) Type 2 diabetes mellitus with hyperglycemia: Comment: Admitted for [facility] in July 2019 Code(s): E11.65 - Type 2 diabetes mellitus with hyperglycemia Qualifiers: Diabetes mellitus senior care insulin use: without senior care use Qualified Code(s): E11.65 - Type 2 diabetes mellitus with hyperglycemia Plan: Personal Continuous Glucose Monitor: Patients CGM information reviewed, Pt uses Dexcom G7 Pt did not take Metformin or Lantus last night Has no glucose data at today's visit Inserted Dexcom G7 sensor at today's visit, patient has follow-up with PA at 14:00 today Patient's last A1c 13.9% Discussed with patient the importance of taking medications, and controlling glucose. High glucose levels can cause damage to the blood vessels in your body Patient reports he is upset today because his mother has been hospitalized after having an [place] Patient able to insert sensor independently at home without issue.? Portions of this note were created using voice recognition software, please excuse any words or phrases that may have been misinterpreted. Patient Instructions: Follow up with DM educator in 10 days Coding Level of Care Code Est Pt Level 1 (13698) Diagnoses Type 2 diabetes mellitus with hyperglycemia, without long-term current use of insulin E11.65 Diabetes mellitus senior care insulin use: without laborer marine terminal use
== END 2024-03-25 14:47 | disposition home or self-care (01) ==
PROVIDERS: PCP Internal Medicine; Visit Provider Registered Nurse Diabetes Educator
DX: E11.65 Type 2 diabetes mellitus with hyperglycemia (principal)

== ENCOUNTER → 2024-03-25 12:29 | Outpatient (BNVA) | payer OTHER, SELFPAY | PROVIDERS: PCP Internal Medicine; Visit Provider Physician Assistant Medical | DX: E11.65 Type 2 diabetes mellitus with hyperglycemia (principal); Z79.4 Long term (current) use of insulin | CPT/HCPCS: 82947; 99211; 99212 ==

== ENCOUNTER 2024-03-31 13:47 | Outpatient (AMB) | payer OTHER, SELFPAY ==
[2024-03-31 14:07] VITALS: BP 120/82; PULSE 95; O2SAT 96; BMI 43.2
--- NOTE | 2024-03-31 14:07 | MHC.PC.OV ---
Vital Signs 03/31/24 14:07 Height 5 ft 10 in Weight 301 lb BMI 43.2 BP 120/82 Blood Pressure Location Lt brachial Position Sitting Pulse 95 Pulse Source Pulse Oximeter Pulse Oximetry (%) 96 Oxygen Delivery Method Room Air Intake Visit Reasons: 3 Months f/u Child Welfare Specialist Required: No Accompanied by: Self / Same As Patient Allergies Penicillins [PENICILLINS] Allergy (Unknown, Verified 03/31/24 14:43) RASH Medication List - Last Reconciled 03/31/24 by Julio Carter MD albuterol sulfate 90 mcg/actuation (Ventolin HFA) 2 puffs inhalation Q4-6H PRN amiodarone 400 mg (2 x 200 mg) PO BID apixaban (Eliquis) 5 mg PO BID 30 days blood sugar diagnostic (FreeStyle Lite Strips) As directed blood-glucose meter (FreeStyle Lite Meter kit) Use as directed to check glucose twice daily. blood-glucose meter,continuous ([employer] G7 Senior Technical Editor) As directed blood-glucose sensor (DexTaKaDu G7 Sensor device) As directed change every 10 days buspirone 30 mg PO BID clotrimazole-betamethasone 1-0.05 % 1 appl topical BID PRN diltiazem HCl CD (Cardizem CD) 240 mg PO DAILY escitalopram oxalate 20 mg PO DAILY insulin glargine (Lantus Solostar U-100 Insulin) 60 units (0.6 mL) subcut BEDTIME lidocaine 5% 2 patches topical DAILY PRN metformin 1,000 mg PO BID methadone (Methadose) 20 mg (2 mL) PO DAILY@0800 metoprolol tartrate 25 mg PO BID pen needle, diabetic (BD Ultra-Fine Mini Pen Needle) USE DIRECTED ONCE DAILY [ROLLATOR As directed] semaglutide (Ozempic) 2 mg (0.75 mL) subcut QWEEK sodium chloride 0.65% (Saline Nasal) 2 sprays intranasal QID PRN tramadol 50 mg PO TID PRN 30 days zolpidem 10 mg PO BEDTIME PRN Tobacco use date assessed: 03/31/24 Dental Screening Dental Screen Date: 03/31/24 Did you have a dental visit in the last 12 months?: Yes Did you have a dental problem in the last 6 months where you did not have access to dental care?: No Was dental information given to patient?: Patient has dentist HPI 3 Months f/u HPI Details Patient comes in today for his follow-up visit States that he feels okay He denies any headaches or dizziness Denies any chest pains, no increased shortness of breath No nausea/vomiting, no abdominal pain No change in bowel habits noted Needs a couple of his Rx refilled He had his follow-up labs done a couple of weeks ago - to discuss his results [facility] Medical History Uncontrolled type 2 diabetes mellitus with hyperglycemia Tachycardia Type 2 diabetes mellitus with hyperglycemia Paroxysmal atrial fibrillation Morbid obesity Substance abuse Essential hypertension Cocaine abuse Erectile dysfunction Polysubstance abuse Paroxysmal atrial fibrillation with rapid ventricular response Lumbar degenerative disc disease Substance abuse Diabetes Depression Overactive bladder Arthritis BPH (benign prostatic hyperplasia) Asthma Seizure Morbid obesity with BMI of 40.0-44.9, adult Benign essential hypertension Insomnia Primary osteoarthritis of both knees Anxiety Family history of thyroid disorder Surgical History No history of previous surgery Family History Father ETOH abuse Mother Diabetes Arthritis of knee Hypertension Other Mental health problem Substance abuse Social History Household Members: Friend(s) Household Members Other:: rents a room in a house Housing: House Housing Other:: rents a room Alcohol intake: current Alcohol intake frequency: does not drink Comment: patient refused Patient Tobacco Use Status: Never used Tobacco e-Cigarette/Vaping Use: Never Used Second Hand Smoke Exposure: No Substance Use Type: Marijuana and Opiates Advance Directives Date on File: 02/23/22 service: No Current occupational status: unemployed and disabled Sexual orientation: Straight/Heterosexual Cognitive needs: No Hearing needs: No Vision needs: No Questionnaire PHQ-9 Over the last 2 weeks, how often have you been bothered by any of the following problems? 1. Little interest or pleasure in doing things: several days 2. Feeling down, depressed, or hopeless: several days 3. Trouble falling or staying asleep, or sleeping too much: several days 4. Feeling tired or having little energy: several days 5. Poor appetite or overeating: several days 6. Feeling bad about yourself - or that you are a failure or have let yourself or your family down: several days 7. Trouble concentrating on things, such as reading the newspaper or watching television: not at all 8. Moving or speaking so slowly that other people could have noticed. Or the opposite - being so fidgety or restless that you have been moving around a lot more than usual: not at all 9. Thoughts that you would be better off or of hurting yourself in some way: not at all Total score: 6 Depression Screening Interpretation: Positive Depression Screening Follow-up: Existing condition and In treatment Depression Screening Done: Yes 90949 - PHQ-9 Billing: Yes Source: Developed by Drs. Michael Mcmanus, Penelope Pope, Cornell Snyder and colleagues, with an educational natty from [employer]. Thrive Questionnaire Date Thrive assessed: 03/31/24 I am a: Patient What is your living situation today?: I have a steady place to live Within the past 12 months, did the food you bought not last and you didn't have the money to get more?: Never true Within the past 12 months, did you worry whether your food would run out before you got money to buy more?: Never true Do you have trouble paying for medicines?: No Do you have trouble getting transportation to medical appointments?: No Do you have trouble paying your heating and electricity bill?: No Do you have trouble taking care of your child, family member or friend?: No Do you have trouble with day-to-day activities such as bathing, preparing meals, shopping, managing finances, etc.?: No Are you currently unemployed and looking for a job?: No Are you interested in more education?: No Please select the resources that you would like help with: None Currently or been in a relationship where the following occur: No concerns reported THRIVE Score: 0 AUDIT C Alcohol Use Questionnaire (AUDIT-C) 1. How often do you have a drink containing alcohol?: Monthly or less 2. How many drinks containing alcohol do you have on a typical day when you are drinking?: 1 or 2 3. How often do you have six or more drinks on one occasion?: Never Total Score: 1 Score Reviewed/Action Taken: Yes TODD-7 AMB Questionnaire TODD-7 Date TODD - 7 assessed: 03/31/24 Feeling nervous, anxious, or on edge: 0 = Not at all Not being able to stop or control worryin = Not at all Worrying too much about different things: 0 = Not at all Trouble relaxin = Not at all Being so restless that it is hard to sit still: 0 = Not at all Becoming easily annoyed or irritable: 0 = Not at all Feeling afraid as if something awful might happen: 0 = Not at all Total TODD-7 score (0-4 normal; 5-9 mild; 10-14 moderate; 15-21 severe): 0 Source: Developed by Drs. Michael Mcmanus, Penelope Pope, Cornell Snyder and colleagues, with an educational natty from [employer]. Review of Systems Const Denies chills, Reports fatigue, Denies fever(s) and Denies headache(s) ENT Denies dysphagia, Denies dizziness, Denies otalgia, Denies headache(s), Denies neck pain, Denies odynophagia and Denies sore throat Card Denies chest pain, Reports pedal edema (bilateral, on and off), Reports leg edema (bilateral, on and off), Denies palpitations and Reports dyspnea on exertion (mild) Resp Denies cough, Reports dyspnea on exertion (mild) and Denies wheezing GI Denies abdominal pain, Denies constipation, Denies dysphagia, Denies heartburn, Denies diarrhea, Denies nausea, Denies odynophagia and Denies vomiting Denies difficulty urinating, Reports erectile dysfunction, Denies dysuria, Denies nocturia and Denies urinary frequency Musc Reports back pain and Denies neck pain Skin/Breast Denies rash Neuro Denies dizziness and Denies headache(s) Endo Reports fatigue and Denies palpitations Jose/Lymph Details: increasing swelling of both lower legs and feet Aller/Immun Denies wheezing Physical exam (Primary Care) Vital Signs: Last Vital Signs Pulse 95 03/31/24 14:07 BP 120/82 03/31/24 14:07 Pulse Ox 96 03/31/24 14:07 Oxygen Delivery Method Room Air 03/31/24 14:07 BMI result Body Mass Index 43.2 Tobacco/Smoking Status: Tobacco use Status Tobacco use date assessed 03/31/24 03/31/24 14:14 Patient Tobacco Use Status Never used Tobacco 03/31/24 14:09 e-Cigarette/Vaping Use Never Used 03/31/24 14:09 PHQ-9: PHQ-9 Score PHQ-9: Total score 6 03/31/24 14:43 Depression Screening Interpretation: Positive Depression Screening Follow-up: Existing condition and In treatment Thrive Assessment: Date of Thrive Assessment Date Thrive assessed 03/31/24 03/31/24 14:14 Currently or been in a relationship where the following occur: No concerns reported Const General: no acute distress and alert HENMT Ears: TM's normal bilaterally and EAC's normal Throat: Yes posterior oropharynx normal and Yes tonsils normal (no TP congestion) Neck Neck: Yes no lymphadenopathy and Yes supple Thyroid: Thyroid normal Resp Auscultation: clear to auscultation bilaterally, no rales and no wheezes Cardio Rate: regular rate Rhythm: regular rhythm Heart sounds: no murmurs GI Palpation (GI): Soft to palpation and nontender Auscultation: normal bowel sounds General: Yes no CVA tenderness Back/Spine/Pelvis Back: no CVA tenderness Thoracic/Lumbar Spine: lumbar spinal tenderness Skin Other: (+) mild erythema of the distal half of both lower legs Rashes: no rashes Extrem General: No clubbing and Yes edema (2+ bipedal edema) Results Reviewed Results Reviewed: Laboratory Tests 03/13/24 03/13/24 15:41 15:49 WBC 6.9 Hgb 14.3 Hct 43.4 Plt Count 300 Sodium 139 Potassium 4.4 Creatinine 1.07 Estimated GFR > 60 Fasting Glucose 311 H Hemoglobin A1c % 13.9 H Calcium 9.0 AST 24 ALT 35 Triglycerides 200 H Cholesterol 150 LDL Cholesterol, Calc 69 HDL Cholesterol 41 25-OH Vitamin D Total 18.7 L TSH 1.14 Urine pH 5.5 Ur Specific [place] >= 1.030 H Urine Protein Negative Urine Glucose (UA) >=1000 H Urine Blood Negative Urine Nitrite Negative Ur Leukocyte Esterase Negative Microalb/Creat Ratio 26.2 Coding Level of Care Code Est Pt Level 4 (82731) Diagnoses Type 2 diabetes mellitus with hyperglycemia, without long-term current use of insulin E11.65 Diabetes mellitus penitentiary insulin use: without termite helper use Benign essential hypertension I10 Paroxysmal atrial fibrillation with rapid ventricular response I48.0 Lymphedema I89.0 Seizure R56.9 Mild intermittent asthma without complication J45.20 Asthma severity: mild Asthma persistence: intermittent Asthma complication type: uncomplicated Degeneration of intervertebral disc of lumbar region with discogenic back pain M51.360 Disc-related pain type: discogenic back pain only Primary osteoarthritis of both knees M17.0 Benign prostatic hyperplasia with urinary frequency N40.1; R35.0 Lower urinary tract symptom presence: symptoms present Lower urinary tract symptom detail: urinary frequency Polysubstance abuse F19.10 Insomnia, unspecified type G47.00 Insomnia type: unspecified Anxiety F41.9 Episode of recurrent major depressive disorder, unspecified depression episode severity F33.9 Depression Type: major depressive disorder Major depression recurrence: recurrent Active/Remission status: currently active Major depression episode severity: unspecified Morbid obesity with BMI of 40.0-44.9, adult E66.01; Z68.41 Additional Codes PHQ-9 - 45091 - PHQ-9 Billing: Yes ([id number]) Assessment & Plan Assessment & Plan (1) Type 2 diabetes mellitus with hyperglycemia: Comment: Admitted for [facility] in July 2019 Code(s): E11.65 - Type 2 diabetes mellitus with hyperglycemia Category: Medical Qualifiers: Diabetes mellitus penitentiary insulin use: without penitentiary use Qualified Code(s): E11.65 - Type 2 diabetes mellitus with hyperglycemia Plan: His HgbA1c was at 13.9% on his labs done a couple of weeks ago (in-office HgbA1c was at 12.4% back in December 2023) - goal is at least <7.0% Reinforced diabetic diet Continue Lantus 60 units daily at bedtime, Metformin 1000 mg BID and Ozempic 2 mg SQ once a week He is being seen regularly now for diabetic teaching and he will continue to follow up with diabetes educators, process specialist and with endocrinology (Dr. Shaver) as scheduled (2) Benign essential hypertension: Code(s): I10 - Essential (primary) hypertension Category: Medical Plan: Reinforced low sodium diet - goal is systolic BP of at least 120 to 130 mm or less Continue Lisinopril 30 mg QD and Amlodipine 5 mg QD He is also on Metoprolol ER 100 mg QD and Diltiazem CD 180 mg QD for atrial fibrillation but these should also help/impact his blood pressure (3) Paroxysmal atrial fibrillation with rapid ventricular response: Code(s): I48.0 - Paroxysmal atrial fibrillation Category: Medical Plan: Patient currently remains in sinus rhythm - states that he's had no recurrence of his symptoms since his hospitalization in October 2021, which was most likely triggered by his multiple drug use at the time Continue Metoprolol 100 mg BID and Diltiazem CD 180 mg QD Continue Eliquis 5 mg BID for thromboembolism prophylaxis Follow up with cardiology as scheduled (4) Lymphedema: Code(s): I89.0 - Lymphedema, not elsewhere classified Category: Medical Plan: Patient is again reminded to try to keep his legs elevated as often as he can to help minimize his edema He was hospitalized for a period of time back in June 2023 for cellulitis of the lower extremities Losing weight should also help with his swelling although at this time, there appears to be no realistic expectation for this to happen (5) Seizure: Code(s): R56.9 - Unspecified convulsions Category: Medical Plan: No seizure recurrence since his hospitalization back in July 2019 - this was most likely brought on by his hyperosmolar coma EEG done at [facility] in July 2019 showed borderline abnormal results and recommended a 24 hour ambulatory EEG for further evaluation Follow up with neurology as scheduled/as needed - it also appears that he has not seen neurology at all in the past couple of years (6) Asthma: Code(s): J45.909 - Unspecified asthma, uncomplicated Category: Medical Qualifiers: Asthma severity: mild Asthma persistence: intermittent Asthma complication type: uncomplicated Qualified Code(s): J45.20 - Mild intermittent asthma, uncomplicated Plan: Stable - continue Albuterol HFA 2 inhalations every 6 hours as needed (7) Lumbar degenerative disc disease: Code(s): M51.36 - Other intervertebral disc degeneration, lumbar region Category: Medical Qualifiers: Disc-related pain type: discogenic back pain only Qualified Code(s): M51.360 - Other intervertebral disc degeneration, lumbar region with discogenic back pain only Plan: Reinforced activity and weight-lifting restrictions Continue Tramadol 50 mg TID and Lidocaine patches 5% apply 2 patches QD PRN for pain Have offered to refer him to pain management for his back pain and knee pain in the past but patient declined He has also been advised a few times in the past when he asked for Rx that we will not start him on anything other than what he is currently on for pain, especially any opioid Rx, due to his known history of polysubstance abuse (8) Primary osteoarthritis of both knees: Code(s): M17.0 - Bilateral primary osteoarthritis of knee Category: Medical Plan: Continue Tramadol 50 mg TID PRN, Voltaren gel 1% apply PRN and Lidocaine 5% patches 2 patches QD PRN He has received cortisone injections into his knees from [facility] in the past with only slight relief Has apparently not followed up with orthopedics or with rheumatology in a while now and he is encouraged to try to schedule his follow ups with them [facility] He is currently requesting for Rx for a Rollator to help with his mobility - Rx printed and handed to patient (9) BPH (benign prostatic hyperplasia): Code(s): N40.0 - Benign prostatic hyperplasia without lower urinary tract symptoms Category: Medical Qualifiers: Lower urinary tract symptom presence: symptoms present Lower urinary tract symptom detail: urinary frequency Qualified Code(s): N40.1 - Benign prostatic hyperplasia with lower urinary tract symptoms; R35.0 - Frequency of micturition Plan: Continue Tamsulosin 0.4 mg QD (10) Polysubstance abuse: Code(s): F19.10 - Other psychoactive substance abuse, uncomplicated Category: Medical Plan: He was admitted previously to using some heroin but his UDS tested positive for opiates, fentanyl, cocaine and marijuana multiple times last year, most recently in June 2023, when his UDS was again positive for opiates, fentanyl and marijuana He was referred to Addiction Medicine for further management at his last visit He has been advised again that we are not going to continue refilling his Tramadol Rx if he continues with his recreational drug use (11) Insomnia: Code(s): G47.00 - Insomnia, unspecified Category: Medical Qualifiers: Insomnia type: unspecified Qualified Code(s): G47.00 - Insomnia, unspecified Plan: Sleep hygiene reinforced Continue Zolpidem 10 mg QD PRN (12) Anxiety: Code(s): F41.9 - Anxiety disorder, unspecified Category: Medical Plan: Continue Buspirone 30 mg BID and Escitalopram 20 mg QD Follow up with psychiatry as scheduled (13) Depression: Code(s): F32.9 - Major depressive disorder, single episode, unspecified Category: Medical Qualifiers: Depression Type: major depressive disorder Major depression recurrence: recurrent Active/Remission status: currently active Major depression episode severity: unspecified Qualified Code(s): F33.9 - Major depressive disorder, recurrent, unspecified Plan: Continue Escitalopram 20 mg QD Follow up with psychiatry as scheduled (14) Morbid obesity with BMI of 40.0-44.9, adult: Code(s): E66.01 - Morbid (severe) obesity due to excess calories; Z68.41 - Body mass index [BMI] 40.0-44.9, adult Category: Medical Plan: Reinforced diet; exercise and weight loss are unrealistic expectations with this patient given his overall situation and motivation Plan Follow up in 3 months Orders: Orders Comprehensive [place]. Panel Fast 3 Months E78.00 - Pure hypercholesterolemia, unspecified UA CC w/rflx Micro + Cult 3 Months R30.0 - Dysuria Vitamin D 25-OH Total 3 Months E55.9 - Vitamin D deficiency, unspecified Hemoglobin A1c 3 Months E11.9 - Type 2 diabetes mellitus without complications Complete Blood Count Auto Diff 3 Months D64.9 - Anemia, unspecified Lipid Panel 3 Months E78.00 - Pure hypercholesterolemia, unspecified Microalbumin, Random (w Creat) 3 Months E11.9 - Type 2 diabetes mellitus without complications TSH reflex Free T4 3 Months E78.00 - Pure hypercholesterolemia, unspecified Vitamin B12 and Folate 3 Months E53.8 - Deficiency of other specified B group vitamins Medications: Changed From albuterol sulfate 90 mcg/actuation 2 puffs inhalation Q4-6H PRN 8.5 grams 2RF wheezing and/or shortness of breath J45.20 - Mild intermittent asthma, uncomplicated To Ventolin HFA 90 mcg/actuation (albuterol sulfate) 2 puffs inhalation Q4-6H PRN 18 grams 5RF wheezing and/or shortness of breath NS J45.20 - Mild intermittent asthma, uncomplicated From lidocaine 5% 2 patches topical DAILY PRN Pain To lidocaine 5% 2 patches topical DAILY 30 days PRN 60 ea 0RF Pain
== END 2024-03-31 14:54 | disposition home or self-care (01) ==
PROVIDERS: PCP Internal Medicine; Visit Provider Internal Medicine
DX: E11.65 Type 2 diabetes mellitus with hyperglycemia (principal); I48.0 Paroxysmal atrial fibrillation; R56.9 Unspecified convulsions; F19.10 Other psychoactive substance abuse, uncomplicated; F33.9 Major depressive disorder, recurrent, unspecified; E66.01 Morbid (severe) obesity due to excess calories; Z68.41 Body mass index [BMI] 40.0-44.9, adult; I10 Essential (primary) hypertension; I89.0 Lymphedema, not elsewhere classified; J45.20 Mild intermittent asthma, uncomplicated; M51.360 Other intervertebral disc degeneration, lumbar region with discogenic back pain only; M17.0 Bilateral primary osteoarthritis of knee

== ENCOUNTER → 2024-03-31 13:47 | Outpatient (BNVA) | payer OTHER, SELFPAY | PROVIDERS: PCP Internal Medicine; Visit Provider Internal Medicine | DX: E11.65 Type 2 diabetes mellitus with hyperglycemia (principal); I10 Essential (primary) hypertension; I48.0 Paroxysmal atrial fibrillation; I89.0 Lymphedema, not elsewhere classified; R56.9 Unspecified convulsions; J45.20 Mild intermittent asthma, uncomplicated; M51.360 Other intervertebral disc degeneration, lumbar region with discogenic back pain only; M17.0 Bilateral primary osteoarthritis of knee; N40.1 Benign prostatic hyperplasia with lower urinary tract symptoms; R35.0 Frequency of micturition; F19.10 Other psychoactive substance abuse, uncomplicated; F41.9 Anxiety disorder, unspecified; F33.9 Major depressive disorder, recurrent, unspecified; E66.01 Morbid (severe) obesity due to excess calories; Z68.41 Body mass index [BMI] 40.0-44.9, adult; Z71.3 Dietary counseling and surveillance | CPT/HCPCS: 96127; 99212 ==

== ENCOUNTER 2024-04-03 12:32 | Outpatient (AMB) | payer OTHER, SELFPAY ==
--- NOTE | 2024-04-03 12:52 | A.OFFVIS_ITS ---
Intake Intake Visit Reasons: 30 min Allergies Penicillins [PENICILLINS] Allergy (Unknown, Verified 03/31/24 14:43) RASH HPI Comprehensive Diabetes Asmnt Most Recent Diabetes Results: Hemoglobin A1c 8.4 % 10/01/19 Microalb/Creat Ratio 26.2 ug/mg cr (<30) 03/13/24 Cholesterol 150 mg/dL (<200) 03/13/24 HDL Cholesterol 41 mg/dL (>40) 03/13/24 Triglycerides 200 mg/dL (<150) H 03/13/24 Creatinine 1.07 mg/dL (0.5-1.4) 03/13/24 Blood Urea Nitrogen 18 mg/dL (9-16) H 03/13/24 Sodium 139 mmol/L (135-145) 03/13/24 Potassium 4.4 mmol/L (3.3-5.1) 03/13/24 Chloride 104 mmol/L (96-108) 03/13/24 Carbon Dioxide 28 mmol/L (22-29) 03/13/24 Calcium 9.0 mg/dL (8.4-10.2) 03/13/24 AST 24 U/L (5-37) 03/13/24 ALT 35 U/L (0-40) 03/13/24 Total Protein 7.1 g/dL (6.5-8.0) 03/13/24 Albumin 4.0 g/dL (3.5-5.0) 03/13/24 [facility] Medical History Uncontrolled type 2 diabetes mellitus with hyperglycemia Tachycardia Type 2 diabetes mellitus with hyperglycemia Paroxysmal atrial fibrillation Morbid obesity Substance abuse Essential hypertension Cocaine abuse Erectile dysfunction Polysubstance abuse Paroxysmal atrial fibrillation with rapid ventricular response Lumbar degenerative disc disease Substance abuse Diabetes Depression Overactive bladder Arthritis BPH (benign prostatic hyperplasia) Asthma Seizure Morbid obesity with BMI of 40.0-44.9, adult Benign essential hypertension Insomnia Primary osteoarthritis of both knees Anxiety Family history of thyroid disorder Surgical History No history of previous surgery Family History Father ETOH abuse Mother Diabetes Arthritis of knee Hypertension Other Mental health problem Substance abuse Social History Household Members: Friend(s) Household Members Other:: rents a room in a house Housing: House Housing Other:: rents a room Alcohol intake: current Alcohol intake frequency: does not drink Comment: patient refused Patient Tobacco Use Status: Never used Tobacco e-Cigarette/Vaping Use: Never Used Second Hand Smoke Exposure: No Substance Use Type: Marijuana and Opiates Advance Directives Date on File: 02/23/22 service: No Current occupational status: unemployed and disabled Sexual orientation: Straight/Heterosexual Cognitive needs: No Hearing needs: No Vision needs: No Assessment & Plan Assessment & Plan (1) Type 2 diabetes mellitus with hyperglycemia: Comment: Admitted for [facility] in July 2019 Code(s): E11.65 - Type 2 diabetes mellitus with hyperglycemia Qualifiers: Diabetes mellitus assisted insulin use: without assisted use Qualified Code(s): E11.65 - Type 2 diabetes mellitus with hyperglycemia Plan: Personal Continuous Glucose Monitor: Patients CGM information reviewed, Pt uses [employer] G7 with otr flatbed driver Patient had approximately 16 hours worth of data, on March 27 and - average glucose 368 mg/dL Sensor data: Hypoglycemia: ? 0% Hyperglycemia:? 100% Time in Range:? 0% Patient also brought blood glucose meter. Patient testing sporadically throughout the day, numbers range from 205 mg/dL to HI Reinforced the importance controlling carbohydrates at mealtime, patient reports he eats 3-4 cups of rice with meals. Suggested to patient to try and reduce portion to 2 cups over the next 2 weeks. In addition recommended patient increase Lantus from 60 units daily to 70 units daily, continue other diabetes medications as prescribed Patient agreed to plan Patient able to insert sensor independently at office visit without issue.? Portions of this note were created using voice recognition software, please excuse any words or phrases that may have been misinterpreted. Patient Instructions: Start Lantus 70 units tonight Follow up with PA in 2 weeks With Guest Relations Associate in 1 month Coding Level of Care Code Est Pt Level 1 (75421) Diagnoses Type 2 diabetes mellitus with hyperglycemia, without long-term current use of insulin E11.65 Diabetes mellitus city driver insulin use: without city driver use
--- OUTSIDE RECORDS SUMMARY | 2024-04-03 14:52 | XMS_ITS | Clinical Summary ---
Author Organization [employer] [facility] Address [address] [place] [address] Care Team Providers Care Miter Grinder Operator Name Role Phone Unavailable Primary Care Provider Unavailabl e Allergies Active Allergy Reactions Criticality Noted Date Comments Penicillins Rash Low 06/22/2022 Medications apixaban (Eliquis) 5 MG tablet Take 5 mg by mouth 2 times daily. 04/06/2020 Active albuterol 108 (90 Base) MCG/ACT inhaler Inhale 2 puffs every 6 (six) hours if needed. 04/06/2020 Active amLODIPine (Norvasc) 5 MG tablet Take 5 mg by mouth in the morning. 04/06/2020 Active Active Problems Problem Noted Date Diagnosed Date Periodontal disease 06/22/2022 Social History Tobacco Use Types Packs/Day Years Used Date Smoking Tobacco: Former Cigarettes Smokeless Tobacco: Never Tobacco Cessation:Counseling Given: Not Answered Alcohol Use Standard Drinks/Week Comments Not Currently 0 (1 standard drink = 0.6 oz pur e alcohol) Sex and Gender Information Value Date Recorded Sex Assigned at Male 01/09/2022 10:37 AM EDT Legal Sex Male 10:37 AM EDT Gender Identity Male 01/09/2022 10:37 AM EDT Sexual Orientation Straight 01/09/2022 10 :37 AM EDT Last Filed Vital Signs Vital Sign Reading Time Taken Comments Blood Pressure 138/82 03/23/2023 2:58 PM EST Pulse 125 04/28/2020 12:02 AM EST Temperature - - Respiratory Rate - - Oxygen Saturation - - Inhaled Oxygen Concentration - - Weight 135 kg (296 lb 12.7 oz) 04/28/2020 12:02 AM EST Height 180.3 cm (5' 11 ) 04/28/2020 12:02 AM EST Body Mass Index 41.39 04/28/2020 12:02 AM EST Plan of Treatment Health Maintenance Due Date Last Done Comments CT Colonography 1972 Colonoscopy 1972 Colorectal Cancer Screening 1972 Dental Oral Exam 1972 Dental Prophylaxis 1972 Dental X-Ray: Bitewings 1972 Dental X-Ray: Full Mouth 1972 Depression Screening 1972 FIT DNA/Cologuard 1972 FIT 1972 FOBT 1972 HIV Screening 1972 Lipid Panel 1972 SDOH Screening 1972 Sigmoidoscopy 1972 Pneumococcal Vaccine: Pediat rics (0 to 5 Years) and At-Risk Patients (6 to 64 Years) (1 of 2 - PCV) 1978 Alcohol/Substance Use Screening 1984 Family Planning (PISQ) 05/27/1987 Hepatitis C Screening 1990 DTaP/Tdap/Td Vaccines (1 - Tdap) 05/27/1991 Hepatitis B Vaccines (1 of 3 - 19+ 3-dose series) 05/27/1991 Zoster Vaccines (1 of 2) 2022 COVID-19 Vaccine (1 - 2023-2 5 season) 2023 Influenza Vaccine (#1) 2023 Tobacco Screening 03/23/2024 03/23/2023 RSV Patients and Pa tients Aged 60 years or older (1 - 1-dose 75+ series) 05/27/2047 HIB Vaccines Aged Out No longer eligi ble based on patient's age to complete this topic HPV Vaccines Aged Out No longer eligi ble based on patient's age to complete this topic Hepatitis A Vaccines Aged Out No long er eligible based on patient's age to complete this topic IPV Vaccines Aged Out No longer eligi ble based on patient's age to complete this topic Meningococcal Vaccine Aged Out No robert ni eligible based on patient's age to complete this topic RSV under 20 months Aged Out No longe r eligible based on patient's age to complete this topic Rotavirus Vaccines Aged Out No longer eligible based on patient's age to complete this topic Insurance [place] AD[place] * Guarantor: Herman Mcintosh Account Type Relation to Patient Date of Phone Billing Address Personal/Family Self [facility] [place] [id number] * Guarantor: Herman Mcintosh Account Type Relation to Patient Date of Phone Billing Address Personal/Family Self [facility] [place] [id number] * Guarantor: Herman Mcintosh Account Type Relation to Patient Date of Phone Billing Address Personal/Family Self [facility] [place] [address] * Guarantor: Herman Mcintosh Account Type Relation to Patient Date of Phone Billing Address Personal/Family Self [facility] [place] [address]
--- OUTSIDE RECORDS SUMMARY | 2024-04-03 14:52 | XMS_ITS | Clinical Summary ---
Author Organization [facility] Address [address] [place] [address] Care Team Providers Care Tight Barrel Inspector Name Role Phone Unavailable Primary Care Provider Unavailabl e Social History Tobacco Use Types Packs/Day Years Used Date Smoking Tobacco: Never Assessed Sex and Gender Information Value Date Recorded Sex Assigned at Not on file Gender Identity Not on file Sexual Orientation Not on file Plan of Treatment Health Maintenance Due Date Last Done Comments DTaP,Tdap,and Td Vaccines (1 - Tdap) 05/27/1991 Hepatitis B Vaccines (1 of 3 - 19+ 3-dose series) 05/27/1991 Zoster Vaccines (1 of 2) 2022 COVID-19 Vaccine ( - 2023-2 5 season) 2023 Influenza Vaccine (#1) 2023 HIB Vaccines Aged Out No longer eligi [...] on patient's age to complete this topic MMR Vaccines Aged Out No longer eligi ble based on patient's age to complete this topic Meningococcal ACWY Vaccine Aged Out N o longer eligible based on patient's age to complete this topic Pneumococcal Vaccine: Pediat rics (0 to 5 Years) and At-Risk Patients (6 to 64 Years) Aged Out No longer eligible b ased on patient's age to complete this topic RSV Immunization Patients Un vinicius 20 months Aged Out No longer eligible b ased on patient's age to complete this topic Varicella Vaccines Aged Out No longer eligible based on patient's age to complete this topic
--- OUTSIDE RECORDS SUMMARY | 2024-04-03 14:52 | XMS_ITS | Clinical Summary ---
Author Organization [facility] Address [address] [place] [id number] Care Team Providers Care Radiation Protection Engineer Name Role Phone Julio Carter MD Primary Care Provider [phone] Allergies No known active allergies Medications Medication Sig Dispensed Refills Start Date End Date Status insulin glargine, BASAGLAR KWIKPEN, 100 UNIT/ML pen injectionIndication s:Type 2 diabetes mellitus without complication, with long-term current use of insulin ([facility]) Inject 30 Units under the skin nightly. 15 mL 04/06/2020 Active metFORMIN (GLUCOPHAGE) 1000 MG tabletIndications:T ype 2 diabetes mellitus without complication, with long-term current use of insulin ([facility]) Take 1 tablet (1,000 mg total) by mouth 2 (two) times a day. 60 tablet 04/06/2020 Active Trulicity 0.75 MG/0.5ML subcutaneous injectionIndication s:Type 2 diabetes mellitus without complication, with long-term current use of insulin ([facility]) Inject 0.75 mg under the skin once a week. Every sunday 2 mL 04/06/2020 Active amLODIPine (NORVASC) 5 MG tabletIndications:T ype 2 diabetes mellitus without complication, with long-term current use of insulin ([facility]),Essential hypertension Take 1 tablet (5 mg total) by mouth daily. 30 tablet 04/06/2020 Active lisinopril (PRINIVIL,ZeSTRIL) 30 MG tabletIndications:T ype 2 diabetes mellitus without complication, with long-term current use of insulin ([facility]),Essential hypertension Take 1 tablet (30 mg total) by mouth daily. 30 tablet 04/06/2020 Active metoPROLOL TARTRATE (LOPRESSOR) 50 MG tabletIndications:P aroxysmal atrial fibrillation (HCC),Type 2 diabetes mellitus without complication, with long-term current use of insulin ([facility]),Essential hypertension Take 1 tablet (50 mg total) by mouth every 12 (twelve) hours around the clock. 60 tablet 04/06/2020 Active busPIRone (BUSPAR) 30 MG tabletIndications:S uicidal behavior without attempted self-injury,Type 2 diabetes mellitus without complication, with long-term current use of insulin ([facility]) Take 1 tablet (30 mg total) by mouth 3 (three) times a day. 90 tablet 04/06/2020 Active traMADol (ULTRAM) 50 MG tabletIndications:T ype 2 diabetes mellitus without complication, with long-term current use of insulin ([facility]) Take 1 tablet (50 mg total) by mouth 3 (three) times a day as needed for moderate pain or severe pain. For pain 15 tablet 04/06/2020 Active albuterol (PROVENTIL HFA; VENTOLIN HFA) 108 (90 Base) MCG/ACT inhalerIndications: Type 2 diabetes mellitus without complication, with long-term current use of insulin ([facility]) Inhale 2 puffs 4 times daily (every 6 hours) as needed for wheezing or shortness of breath. 1 Inhaler 04/06/2020 Active hydrOXYzine HCl (ATARAX) 25 MG tabletIndications:T ype 2 diabetes mellitus without complication, with long-term current use of insulin ([facility]) Take 1 tablet (25 mg total) by mouth 3 (three) times a day as needed for itching or anxiety. 30 tablet 04/06/2020 Active escitalopram (LEXAPRO) 20 MG tabletIndications:T ype 2 diabetes mellitus without complication, with long-term current use of insulin ([facility]) Take 1 tablet (20 mg total) by mouth daily. 30 tablet 04/06/2020 Active apixaban (ELIQUIS) 5 MG tabletIndications:P aroxysmal atrial fibrillation (HCC),Type 2 diabetes mellitus without complication, with long-term current use of insulin ([facility]) Take 1 tablet (5 mg total) by mouth every 12 (twelve) hours around the clock. 60 tablet 04/06/2020 Active ALPRAZolam (XANAX) 2 MG tabletIndications:S uicidal behavior without attempted self-injury,Type 2 diabetes mellitus without complication, with long-term current use of insulin ([facility]) Take 1 tablet (2 mg total) by mouth nightly as needed for anxiety. 5 tablet 04/06/2020 Active lidocaine (LIDODERM) 5 % patchIndications:Ty pe 2 diabetes mellitus without complication, with long-term current use of insulin ([facility]) Place 1 patch on the skin daily. Apply patch and leave on for 12 hours then remove. Patch may remain on skin for 12 hours per day. 30 patch 04/06/2020 Active diclofenac (VOLTAREN) 1 % gelIndications:Type 2 diabetes mellitus without complication, with long-term current use of insulin ([facility]) Apply 2 g topically 2 (two) times a day as needed for pain or muscle/joint pain. 100 g 04/06/2020 Active FREESTYLE LITE stripIndications:Ty pe 2 diabetes mellitus without complication, with long-term current use of insulin ([facility]) 100 test strips by Other (specify) route 3 (three) times a day before meals. Use as instructed 100 test strip 04/06/2020 Active tamsulosin (FLOMAX) 0.4 MG capsuleIndications: Type 2 diabetes mellitus without complication, with long-term current use of insulin ([facility]) Take 1 capsule (0.4 mg total) by mouth daily. 30 capsule 04/06/2020 Active B-D ULTRAFINE III SHORT PEN 31G X 8 MM MiscIndications:Typ e 2 diabetes mellitus without complication, with long-term current use of insulin ([facility]) Check blood glucose at least 3 times daily and once in the morning fasting. For diabetes mellitus ICD E 11.9 50 pen needle 04/06/2020 Active Insulin Pen Needle 31G X 8 MM MiscIndications:Typ e 2 diabetes mellitus without complication, with long-term current use of insulin ([facility]) Check blood glucose at least 3 times daily and once in the morning fasting. For diabetes mellitus ICD E 11.9 50 pen needle 04/06/2020 Active Blood Glucose Monitoring Suppl (FreeStyle Lite) DeviceIndications:T ype 2 diabetes mellitus without complication, with long-term current use of insulin ([facility]) Check blood glucose at least 3 times daily and once in the morning fasting. For diabetes mellitus ICD E 11.9 1 Device 04/06/2020 Active FREESTYLE LITE stripIndications:Ty pe 2 diabetes mellitus without complication, with long-term current use of insulin ([facility]) Check blood glucose at least 3 times daily and once in the morning fasting. For diabetes mellitus ICD E 11.9 100 test strip 04/06/2020 Active FreeStyle Lancets lancetIndications:T ype 2 diabetes mellitus without complication, with long-term current use of insulin ([facility]) Check blood glucose at least 3 times daily and once in the morning fasting. For diabetes mellitus ICD E 11.9 100 lancet 04/06/2020 Active QUEtiapine (SEROquel) 50 MG tabletIndications:S uicidal behavior without attempted self-injury,Depress ion, unspecified depression type Take 1 tablet (50 mg total) by mouth nightly. 30 tablet 04/06/2020 Active Active Problems Problem Noted Date Diagnosed Date LOC (loss of consciousness) 04/02/2020 Substance abuse 04/02/2020 Depression 04/02/2020 Suicidal behavior without attempted self-injury 04/02/2020 Type 2 diabetes mellitus wit hout complication, with long-term current use of insulin 04/02/2020 Essential hypertension 04/02/2020 Asthma 04/02/2020 Family History Medical History Relation Name Comments Stroke Father Anxiety disorder Mother Depression Mother Thyroid disease Mother Relation Name Status Comments Father Mother Social History Tobacco Use Types Packs/Day Years Used Date Smoking Tobacco: Never Smokeless Tobacco: Never Alcohol Use Standard Drinks/Week Comments Yes 0 (1 standard drink = 0.6 oz pur e alcohol) AUDIT-C Answer Date Recorded Q1: How often do you have a drink containing alc ohol? 2-4 times a month 04/02/2020 Q2: How many drinks containi ng alcohol do you have on a typical day when you are drinking? 1 or 2 04/02/2020 Q3: How often do you have si x or more drinks on one occasion? Not asked 04/02/2020 Sex and Gender Information Value Date Recorded Sex Assigned at Not on file Gender Identity Not on file Sexual Orientation Not on file Last Filed Vital Signs Vital Sign Reading Time Taken Comments Blood Pressure 157/76 04/07/2020 8:07 AM EST Pulse 73 04/07/2020 8:07 AM EST Temperature 36.3 ??C (97.3 ??F) 04/07/2020 2:30 AM ES T Respiratory Rate 18 04/07/2020 2:30 AM EST Oxygen Saturation 96% 04/07/2020 2:30 AM EST Inhaled Oxygen Concentration - - Weight 139 kg (307 lb) 04/06/2020 8:47 AM EST Height 180.3 cm (5' 11 ) 04/02/2020 10:00 PM EST Body Mass Index 42.82 04/02/2020 10:00 PM EST Plan of Treatment Health Maintenance Due Date Last Done Comments Hepatitis C Virus Screening 1972 Pneumococcal Vaccine: Pediat dixie (0-5 Years) and At-Risk Patients (6 to 49 Years) (1 of 2 - PCV) 1978 Foot Exam 1982 Hemoglobin A1C 1982 Lipid Panel 1982 Ophthalmology Exam 1982 HIV Screening 1985 Microalbumin/Creatinine Rati o Urine 1990 DTaP/Tdap/Td Vaccines (1 - Tdap) 05/27/1991 Hepatitis B Vaccines (1 of 3 - 19+ 3-dose series) 05/27/1991 Pneumococcal Vaccines 50+ (1 of 2 - PCV) 05/27/1991 Colonoscopy 2017 Creatinine with GFR 04/07/2021 04/07/2020, 04/06/2020, 04/05/2020, Additional history exists Zoster (Shingles) Vaccine (1 of 2) 2022 Influenza Vaccine 10/11/2023 COVID-19 Vaccine ( - 2023-2 5 season) 2023 Procedures Procedure Name Priority Date/Time Associated Diagnosis Comments BASIC METABOLIC PANEL Routine 04/07/2020 6:28 AM EST from Last 3 Months or Most Recently Relevant to Health Maintenance Results * (ABNORMAL) Basic Metabolic Panel (04/07/2020 6:28 AM EST) Glucose 192(H) 65 - 99 mg/dL [facility] Comment:Fasting: <100 mg/dL, Non-Fasting: <200 mg/dL (ADA 2005) Blood Urea Nitrogen (BUN) 15 8 - 21 mg/dL [facility] Creatinine 1.1 0.5 - 1.3 mg/dL [facility] eGFR >60 >59 [facility] Comment:MDRD in mL/min/1.73 sq meters. GFR - >60 >59 [facility] Comment:MDRD in mL/min/1.73 sq meters. Sodium 138 136 - 145 mmol/L [facility] Potassium 3.9 3.4 - 5.3 mmol/L [facility] Chloride 101 98 - 107 mmol/L [facility] CO2 27 22 - 33 mmol/L [facility] Anion Gap 10 7 - 17 [facility] Calcium 9.8 8.7 - 10.5 mg/dL [facility] BUN/Creatinine Ratio 14 10.0 - 25.0 Ratio [facility] Blood specimen (specimen) Heel structure / Unknown 04/07/2020 6:28 AM EST 04/07/2020 7:13 AM EST Jc Ayers MD LAB BLOOD ORDERABLES [facility] from Last 3 Months or Most Recently Relevant to Health Maintenance Advance Directives * Full Code (Latest Code Status on File) Date Activated Date Inactivated Comments 04/02/2020 7:54 PM Healthcare Agents on File Name Relationship Healthcare Agent Relationshi p Communication Fang Garduno Parent 4. Next of Kin ( Spouse, Adult Child, Parent, Adult Sibling, Grandparent) Care Teams Radiation Protection Engineer Relationship Specialty Start Date End Date Julio Carter MD [address] [place] [address] [address] [place] [address] PCP - General Internal Medicine 04/02/20
--- OUTSIDE RECORDS SUMMARY | 2024-04-03 14:52 | XMS_ITS | Encounter Summary ---
Author Organization [employer] Address [address] [facility] [address] [place] [address] Care Team Providers Care Hand Embroiderer Name Role Phone Unavailable Primary Care Provider Unavailabl e Reason for Visit * Reason Onset Date Comments medication 07/12/2022 Appointment 07/12/2022 Encounter Details Date Type Department Care Team ([facility] st Contact Info) Description 07/12/2022 Telephone [facility] [address] [place] [address] Storm Maciel DDS [address] [place] [address] medication; Appointment Social History Tobacco Use Types Packs/Day Years Used Date Smoking Tobacco: Former Cigarettes Smokeless Tobacco: Never Alcohol Use Standard Drinks/Week Comments Not Currently 0 (1 standard drink = 0.6 oz pur e alcohol) Sex and Gender Information Value Date Recorded Sex Assigned at Male 01/09/2022 10:37 AM EDT Legal Sex Male 10:37 AM EDT Gender Identity Male 01/09/2022 10:37 AM EDT Sexual Orientation Straight 01/09/2022 10 :37 AM EDT COVID-19 Exposure Response Date Recorded In the last 10 days, have yo u been in contact with someone who was confirmed or suspected to have Coronavirus/COVID-19? No / Unsure 06/22/2022 11:40 AM EDT documented as of this encounter Miscellaneous Notes * Telephone Encounter - Sharda Kellogg - 07/12/2022 4:17 PM EDT Patient came in 06/22 and states that medication scripted he jsut started taking it because he had misplaced them and just found them. He is having continued increasing pain and not having any relief. I do not see what was scripted on my end. He stated he is going to call back tomorrow morning to see if he can come back in. He states that anbesol and oragel are also not working. DR documented in this encounter Plan of Treatment Not on file documented as of this encounter Visit Diagnoses Not on filedocumented in this encounter
== END 2024-04-03 12:56 | disposition home or self-care (01) ==
PROVIDERS: PCP Internal Medicine; Visit Provider Registered Nurse Diabetes Educator
DX: E11.65 Type 2 diabetes mellitus with hyperglycemia (principal)

== ENCOUNTER → 2024-04-03 12:32 | Outpatient (BNVA) | payer OTHER, SELFPAY | PROVIDERS: PCP Internal Medicine; Visit Provider Registered Nurse Diabetes Educator | DX: E11.65 Type 2 diabetes mellitus with hyperglycemia (principal) | CPT/HCPCS: 99211 ==

== ENCOUNTER 2024-04-15 13:28 | Outpatient (AMB) | payer OTHER, SELFPAY ==
[2024-04-15 13:39] VITALS: BP 166/82; PULSE 73; O2SAT 94; BMI 44.5
--- NOTE | 2024-04-15 13:39 | A.OFFVIS_ITS ---
Vital Signs 04/15/24 13:39 Height 5 ft 10 in Weight 309 lb 15.519 oz BMI 44.5 BP 166/82 H Blood Pressure Location Lt brachial Position Sitting Pulse 73 Pulse Source Pulse Oximeter Pulse Oximetry (%) 94 Oxygen Delivery Method Room Air Intake Visit Reasons: Type II diabetes Intake Note: Patient present today to follow up on Type 2 Diabetes Mellitus. Last Diabetic Eye exam: Over 4 years ago Last Podiatry Visit: Does not see a Tafe Registrar Random Glucose: 200 mg/dl HgA1C: 13.9% 03/13/2024 Airfield Operations Specialist Required: No Accompanied by: Self / Same As Patient Allergies Penicillins [PENICILLINS] Allergy (Unknown, Verified 04/15/24 13:45) RASH Medication List - Last Reconciled 04/15/24 by GHULAM Jean amiodarone 400 mg (2 x 200 mg) PO BID apixaban (Eliquis) 5 mg PO BID 30 days blood sugar diagnostic (FreeStyle Lite Strips) As directed blood-glucose meter (FreeStyle Lite Meter kit) Use as directed to check glucose twice daily. blood-glucose meter,continuous (Dexcom G7 Internal Grinder Tender) As directed blood-glucose sensor (Dexcom G7 Sensor device) As directed change every 10 days buspirone 30 mg PO BID clotrimazole-betamethasone 1-0.05 % 1 appl topical BID PRN diltiazem HCl CD (Cardizem CD) 240 mg PO DAILY escitalopram oxalate 20 mg PO DAILY insulin degludec (Tresiba FlexTouch U-200 insulin) 80 units (0.4 mL) subcut BEDTIME lidocaine 5% 2 patches topical DAILY PRN 30 days metformin ER 2,000 mg (4 x 500 mg) PO DAILY methadone (Methadose) 20 mg (2 mL) PO DAILY@0800 metoprolol tartrate 25 mg PO BID pen needle, diabetic (BD Ultra-Fine Mini Pen Needle) USE DIRECTED ONCE DAILY [ROLLATOR As directed] semaglutide (Ozempic) 2 mg (0.75 mL) subcut QWEEK sodium chloride 0.65% (Saline Nasal) 2 sprays intranasal QID PRN tramadol 50 mg PO TID PRN 30 days Ventolin HFA 90 mcg/actuation (albuterol sulfate) 2 puffs inhalation Q4-6H PRN NS zolpidem 10 mg PO BEDTIME PRN HPI Comments Details: This is a 53-year-old male with a past medical history of polysubstance abuse, uncontrolled type 2 diabetes, depression, atrial flutter with RVR, PTSD presenting for diabetic management. His diabetic management has been complicated by polysubstance abuse and recent hospitalizations. He had a recent appointment with Cardiology and was referred to EP. He denies palpitations, chest pain and shortness of breath. Hemoglobin A1c 13.9% 03/13/2024. Reviewed Dexcom download GMI 9.6% Standard deviation 70 mg/dL Average glucose 262 17% in range High 22% 61% very high 0% hypoglycemia. He has a pattern of daytime and nighttime hyperglycemia. Patient admits to some noncompliance with his medications. He is only taking 1 dose of metformin 1000 mg a day. He is prescribed Ozempic 2 mg weekly, Metformin 1000 mg BID and Lantus 70 units nightly (increased at diabetic education appointment). . SGLT2 not prescribed-history of balanitis Endorses polyuria, polydipsia and dry lips with high sugars. Denies hypoglycemia. The patient's blood pressure is elevated today. He denies dizziness, vision changes, headache. He says he did not take diltiazem or metoprolol today. ROS: Constitutional: No fevers or chills. Eyes: No vision changes, blurry vision, double vision Respiratory: No shortness of breath, cough or sputum production. Cardiovascular: No chest pain, chest pressure, palpitations. Endocrine: See HPI Psychiatric: Endorses depression and anxiety. Denies SI/HI. Physical exam: Constitutional: Alert, in no distress. Respiratory: Clear to auscultation. Cardiovascular: S1 S2 regular. No murmurs. Extremities: Warm and well perfused. No clubbing, cyanosis or edema. 1+ lower extremity edema bilaterally. Psychiatric: Normal mood and affect [facility] Medical History Uncontrolled type 2 diabetes mellitus with hyperglycemia Tachycardia Type 2 diabetes mellitus with hyperglycemia Paroxysmal atrial fibrillation Morbid obesity Substance abuse Essential hypertension Cocaine abuse Erectile dysfunction Polysubstance abuse Paroxysmal atrial fibrillation with rapid ventricular response Lumbar degenerative disc disease Substance abuse Diabetes Depression Overactive bladder Arthritis BPH (benign prostatic hyperplasia) Asthma Seizure Morbid obesity with BMI of 40.0-44.9, adult Benign essential hypertension Insomnia Primary osteoarthritis of both knees Anxiety Family history of thyroid disorder Surgical History No history of previous surgery Family History Father ETOH abuse Mother Diabetes Arthritis of knee Hypertension Other Mental health problem Substance abuse Social History Household Members: Friend(s) Household Members Other:: rents a room in a house Housing: House Housing Other:: rents a room Alcohol intake: current Alcohol intake frequency: does not drink Comment: patient refused Patient Tobacco Use Status: Never used Tobacco e-Cigarette/Vaping Use: Never Used Second Hand Smoke Exposure: No Substance Use Type: Marijuana and Opiates Advance Directives Date on File: 02/23/22 service: No Current occupational status: unemployed and disabled Sexual orientation: Straight/Heterosexual Cognitive needs: No Hearing needs: No Vision needs: No Physical Exam Vital Signs: Last Vital Signs Pulse 73 04/15/24 13:39 BP 166/82 H 04/15/24 13:39 Pulse Ox 94 04/15/24 13:39 Oxygen Delivery Method Room Air 04/15/24 13:39 BMI result Body Mass Index 44.5 Office Procedures Glucose Monitoring Details Details: See HPI 21553 - Glucose monitoring, continuous-physician I&R Procedure code (CPT) selection complete Results Reviewed Results Reviewed: Laboratory Last Values Glucose (Clinic) 200 mg/dL (60-115) H 04/15/24 13:46 Laboratory Tests 03/13/24 03/13/24 15:41 15:49 Creatinine 1.07 Estimated GFR > 60 Hemoglobin A1c % 13.9 H AST 24 ALT 35 Triglycerides 200 H Cholesterol 150 LDL Cholesterol, Calc 69 HDL Cholesterol 41 TSH 1.14 Urine Creatinine 103.05 Urine Microalbumin 27.0 Microalb/Creat Ratio 26.2 Assessment & Plan Assessment & Plan (1) Uncontrolled type 2 diabetes mellitus with hyperglycemia: Code(s): E11.65 - Type 2 diabetes mellitus with hyperglycemia Category: Medical Plan In summary this is a 53-year-old male with uncontrolled type 2 diabetes. Treatment complicated by polysubstance abuse and noncompliance. Continue Ozempic 2 mg once weekly. Switch metformin to extended release and take 2000 mg once daily to improve compliance. Switch Lantus to Tresiba and increase to 80 units nightly. We discussed that he may need prandial insulin to get his diabetes under control, but he is resistant to the idea of taking multiple injections per day, and I do worry about his compliance with this. Re-evaluate at next visit. Dexcom data does show glucose readings are improving, and he is compliant with glucose monitoring now. Continue to bring CGM to all appointments. He has a backup fingerstick glucometer. If you experience low blood sugar, treat this by eating a chewable fruit candy like skittles or jelly beans (about 8 pieces), 4 ounces (1/2 cup) of fruit juice (not diet), 1 tablespoon of honey or 4 glucose tablets. If your blood sugar is under 55, take double the amount of one of the above. Recheck your blood sugar in 15 minutes. He has been referred for a diabetic eye exam. Patient followed by prosthodontist/educator. Follow up in 4 weeks for type 2 diabetes. Orders: Orders AMB Glucose Monitoring Today E11.9 - Type 2 diabetes mellitus without complications Medications: New insulin degludec (Tresiba FlexTouch U-200 insulin) Replaces Lantus 70 units daily. 80 units (0.4 mL) subcut BEDTIME 9 mL 8RF metformin ER Replaces Metformin 1000 mg twice daily. 2,000 mg (4 x 500 mg) PO DAILY 360 tabs 1RF Patient Instructions: Continue Ozempic 2 mg weekly. Stop Lantus and switch to Tresiba and increase to 80 units nightly. Switch Metformin to extended release and take 2000 mg (4 tablets) once daily. If you experience low blood sugar, treat this by eating a chewable fruit candy like skittles or jelly beans (about 8 pieces), 4 ounces (1/2 cup) of fruit juice (not diet), 1 tablespoon of honey or 4 glucose tablets. If your blood sugar is under 55, take double the amount of one of the above. Recheck your blood sugar in 15 minutes. Coding Level of Care Code Est Pt Level 4 (32451) Diagnoses Uncontrolled type 2 diabetes mellitus with hyperglycemia E11.65 CPT Codes Details - CPT: 63145 - Glucose monitoring, continuous-physician I&R ([id number])
--- OUTSIDE RECORDS SUMMARY | 2024-04-15 13:42 | XMS_ITS | Clinical Summary ---
Author Organization [facility] Address [address] [place] [id number] Care Team Providers Care Prepress Supervisor Name Role Phone Julio Carter MD Primary Care Provider [phone] Allergies No known active allergies Medications Medication Sig Dispensed Refills Start Date End Date Status insulin glargine, BASAGLAR KWIKPEN, 100 UNIT/ML pen injectionIndication s:Type 2 diabetes mellitus without complication, with long-term current use of insulin ([facility]) Inject 30 Units under the skin nightly. 15 mL 04/06/2020 Active metFORMIN (GLUCOPHAGE) 1000 MG tabletIndications:T ype 2 diabetes mellitus without complication, with long-term current use of insulin ([facility]) Take 1 tablet (1,000 mg total) by mouth 2 (two) times a day. 60 tablet 04/06/2020 Active Trulicity 0.75 MG/0.5ML subcutaneous injectionIndication s:Type 2 diabetes mellitus without complication, with long-term current use of insulin ([facility]) Inject 0.75 mg under the skin once a week. Every sunday 2 mL 04/06/2020 Active amLODIPine (NORVASC) 5 MG tabletIndications:T ype 2 diabetes mellitus without complication, with long-term current use of insulin ([facility]),Essential hypertension Take 1 tablet (5 mg total) by mouth daily. 30 tablet 04/06/2020 Active lisinopril (PRINIVIL,ZeSTRIL) 30 MG tabletIndications:T ype 2 diabetes mellitus without complication, with long-term current use of insulin ([facility]),Essential hypertension Take 1 tablet (30 mg total) by mouth daily. 30 tablet 04/06/2020 Active metoPROLOL TARTRATE (LOPRESSOR) 50 MG tabletIndications:P aroxysmal atrial fibrillation (HCC),Type 2 diabetes mellitus without complication, with long-term current use of insulin ([facility]),Essential hypertension Take 1 tablet (50 mg total) by mouth every 12 (twelve) hours around the clock. 60 tablet 04/06/2020 Active busPIRone (BUSPAR) 30 MG tabletIndications:S uicidal behavior without attempted self-injury,Type 2 diabetes mellitus without complication, with long-term current use of insulin ([facility]) Take 1 tablet (30 mg total) by mouth 3 (three) times a day. 90 tablet 04/06/2020 Active traMADol (ULTRAM) 50 MG tabletIndications:T ype 2 diabetes mellitus without complication, with long-term current use of insulin ([facility]) Take 1 tablet (50 mg total) by mouth 3 (three) times a day as needed for moderate pain or severe pain. For pain 15 tablet 04/06/2020 Active albuterol (PROVENTIL HFA; VENTOLIN HFA) 108 (90 Base) MCG/ACT inhalerIndications: Type 2 diabetes mellitus without complication, with long-term current use of insulin ([facility]) Inhale 2 puffs 4 times daily (every 6 hours) as needed for wheezing or shortness of breath. 1 Inhaler 04/06/2020 Active hydrOXYzine HCl (ATARAX) 25 MG tabletIndications:T ype 2 diabetes mellitus without complication, with long-term current use of insulin ([facility]) Take 1 tablet (25 mg total) by mouth 3 (three) times a day as needed for itching or anxiety. 30 tablet 04/06/2020 Active escitalopram (LEXAPRO) 20 MG tabletIndications:T ype 2 diabetes mellitus without complication, with long-term current use of insulin ([facility]) Take 1 tablet (20 mg total) by mouth daily. 30 tablet 04/06/2020 Active apixaban (ELIQUIS) 5 MG tabletIndications:P aroxysmal atrial fibrillation (HCC),Type 2 diabetes mellitus without complication, with long-term current use of insulin ([facility]) Take 1 tablet (5 mg total) by mouth every 12 (twelve) hours around the clock. 60 tablet 04/06/2020 Active ALPRAZolam (XANAX) 2 MG tabletIndications:S uicidal behavior without attempted self-injury,Type 2 diabetes mellitus without complication, with long-term current use of insulin ([facility]) Take 1 tablet (2 mg total) by mouth nightly as needed for anxiety. 5 tablet 04/06/2020 Active lidocaine (LIDODERM) 5 % patchIndications:Ty pe 2 diabetes mellitus without complication, with long-term current use of insulin ([facility]) Place 1 patch on the skin daily. Apply patch and leave on for 12 hours then remove. Patch may remain on skin for 12 hours per day. 30 patch 04/06/2020 Active diclofenac (VOLTAREN) 1 % gelIndications:Type 2 diabetes mellitus without complication, with long-term current use of insulin ([facility]) Apply 2 g topically 2 (two) times a day as needed for pain or muscle/joint pain. 100 g 04/06/2020 Active FREESTYLE LITE stripIndications:Ty pe 2 diabetes mellitus without complication, with long-term current use of insulin ([facility]) 100 test strips by Other (specify) route 3 (three) times a day before meals. Use as instructed 100 test strip 04/06/2020 Active tamsulosin (FLOMAX) 0.4 MG capsuleIndications: Type 2 diabetes mellitus without complication, with long-term current use of insulin ([facility]) Take 1 capsule (0.4 mg total) by mouth daily. 30 capsule 04/06/2020 Active B-D ULTRAFINE III SHORT PEN 31G X 8 MM MiscIndications:Typ e 2 diabetes mellitus without complication, with long-term current use of insulin ([facility]) Check blood glucose at least 3 times daily and once in the morning fasting. For diabetes mellitus ICD E 11.9 50 pen needle 04/06/2020 Active Insulin Pen Needle 31G X 8 MM MiscIndications:Typ e 2 diabetes mellitus without complication, with long-term current use of insulin ([facility]) Check blood glucose at least 3 times daily and once in the morning fasting. For diabetes mellitus ICD E 11.9 50 pen needle 04/06/2020 Active Blood Glucose Monitoring Suppl (FreeStyle Lite) DeviceIndications:T ype 2 diabetes mellitus without complication, with long-term current use of insulin ([facility]) Check blood glucose at least 3 times daily and once in the morning fasting. For diabetes mellitus ICD E 11.9 1 Device 04/06/2020 Active FREESTYLE LITE stripIndications:Ty pe 2 diabetes mellitus without complication, with long-term current use of insulin ([facility]) Check blood glucose at least 3 times daily and once in the morning fasting. For diabetes mellitus ICD E 11.9 100 test strip 04/06/2020 Active FreeStyle Lancets lancetIndications:T ype 2 diabetes mellitus without complication, with long-term current use of insulin ([facility]) Check blood glucose at least 3 times [...] Child, Parent, Adult Sibling, Grandparent) Care Teams Prepress Supervisor Relationship Specialty Start Date End Date Julio Carter MD [address] [place] [address] [address] [place] [address] PCP - General Internal Medicine 04/02/20
--- OUTSIDE RECORDS SUMMARY | 2024-04-15 13:42 | XMS_ITS | Encounter Summary ---
Author Organization [employer] Address [address] [place] [address] Care Team Providers Care Bevel Gear Generator Operator Name Role Phone Unavailable Primary Care Provider Unavailabl e Reason for Visit * Reason Onset Date Comments medication 07/12/2022 Appointment 07/12/2022 Encounter Details Date Type Department Care Team ([facility] st Contact Info) Description 07/12/2022 Telephone [facility] ADULT DENTAL [address] [place] [address] Storm Maciel DDS [address] [place] [address] medication; Appointment Social History Tobacco Use Types [...]
--- OUTSIDE RECORDS SUMMARY | 2024-04-15 13:42 | XMS_ITS | Clinical Summary ---
Author Organization [employer] [facility] Address [address] [facility] [address] [place] [address] Care Team Providers Care Button Decorating Machine Operator Name Role Phone Unavailable Primary Care [...] 5 Years) and At-Risk Patients (6 to 49) Years) (1 of 2 - PCV) 1978 Alcohol/Substance Use Screening 1984 Family Planning (PISQ) 05/27/1987 Hepatitis C Screening 1990 DTaP/Tdap/Td Vaccines (1 - Tdap) 05/27/1991 Hepatitis B Vaccines (1 of 3 - 19+ 3-dose series) 05/27/1991 Pneumococcal Vaccine: 50+ Ye ars (1 of 2 - PCV) 05/27/1991 Zoster Vaccines (1 of 2) 2022 [...] patient's age to complete this topic Insurance Kerm[place] [id number] [place] * Guarantor: Herman Mcintosh Account Type Relation to Patient Date of Phone Billing Address Personal/[place] [address] * Guarantor: Herman Mcintosh Account Type Relation to Patient Date of Phone Billing Address Personal/[place] [address] * Guarantor: Herman Mcintosh Account Type Relation to Patient Date of Phone Billing Address Personal/[place] [address] * Guarantor: Herman Mcintosh Account Type Relation to Patient Date of Phone Billing Address Personal/[place] [address]
--- OUTSIDE RECORDS SUMMARY | 2024-04-15 13:42 | XMS_ITS | Clinical Summary ---
Author Organization [facility] Address [address] [place] [address] Care Team Providers Care Back Feeder Plywood Layup Line Name Role Phone Unavailable Primary Care Provider [...]
[2024-04-15 13:50] LABS: Glucose, Whole Blood 200 mg/dL (60-115)
== END 2024-04-15 14:26 | disposition home or self-care (01) ==
PROVIDERS: PCP Internal Medicine; Visit Provider Physician Assistant Medical
DX: E11.65 Type 2 diabetes mellitus with hyperglycemia (principal)

== ENCOUNTER → 2024-04-15 13:28 | Outpatient (BNVA) | payer OTHER, SELFPAY | PROVIDERS: PCP Internal Medicine; Visit Provider Physician Assistant Medical | DX: E11.65 Type 2 diabetes mellitus with hyperglycemia (principal); Z79.4 Long term (current) use of insulin | CPT/HCPCS: 82947; 99212 ==

== ENCOUNTER → 2024-04-21 12:14 | Outpatient (REF) | payer OTHER, SELFPAY | LOC: HO.CARD 12:14 | PROVIDERS: PCP Internal Medicine | DX: I48.0 Paroxysmal atrial fibrillation (principal) | CPT/HCPCS: 93242 ==

== ENCOUNTER → 2024-04-21 12:39 | Outpatient (BNV) | payer OTHER, SELFPAY | PROVIDERS: PCP Internal Medicine; Visit Provider Internal Medicine | DX: I47.10 Supraventricular tachycardia, unspecified (principal) | CPT/HCPCS: 93244 ==

== ENCOUNTER 2024-05-01 16:13 | Outpatient (REF) | payer OTHER, SELFPAY ==
--- OUTSIDE RECORDS SUMMARY | 2024-05-01 16:49 | XMS_ITS | Encounter Summary ---
Author Organization [employer] Address [address] [place] [address] Care Team Providers Care Mysql Developer Name Role Phone Unavailable Primary Care Provider Unavailabl e Reason for Visit * Reason Onset Date Comments medication 07/12/2022 Appointment 07/12/2022 Encounter Details Date Type Department Care Team ([facility] st Contact Info) Description 07/12/2022 Telephone [facility] ADULT D[facility]AL [address] [place] [address] Storm Maciel DDS [address] [place] [address] medication; Appointment Social History Tobacco Use Types [...]
--- OUTSIDE RECORDS SUMMARY | 2024-05-01 16:49 | XMS_ITS | Clinical Summary ---
Author Organization [facility] Address [address] [place] [address] Care Team Providers Care Shipping Weigher Name Role Phone Unavailable Primary Care Provider Unavailabl e Social History Tobacco Use Types Packs/Day Years Used Date Smoking Tobacco: Never Assessed Sex and Gender Information Value Date Recorded Sex Assigned at Not on file Legal Sex Male 5:41 AM EST Gender Identity Not on file Sexual Orientation Not on file Plan of Treatment Health Maintenance Due Date Last Done Comments DTaP,Tdap,and Td Vaccines (1 - Tdap) 05/27/1991 Hepatitis B Vaccines (1 of 3 - 19+ 3-dose series) 05/27/1991 Pneumococcal Vaccine: 50+ Ye ars (1 of 1 - PCV) 2022 Zoster Vaccines (1 of 2) 2022 COVID-19 [...] patient's age to complete this topic Meningococcal B Vacine Aged Out No lo nger eligible based on patient's age to complete [...]
--- OUTSIDE RECORDS SUMMARY | 2024-05-01 16:49 | XMS_ITS | Clinical Summary ---
Author Organization [facility] Address [address] [place] [address] Care Team Providers Care Church Communications Administrator Name Role Phone Unavailable Primary Care Provider [...] complete this topic Insurance [place] [id number] [place] * Guarantor: Herman Mcintosh Account Type Relation to Patient Date of Phone Billing Address Personal/[place] [address] * Guarantor: Herman Mcintosh Account Type Relation to Patient Date of Phone Billing Address Personal/[place] [address] * Guarantor: Herman Mcintosh Account Type Relation to Patient Date of Phone Billing Address Personal/[place] [address] * Guarantor: Herman Mcintosh Account Type Relation to Patient Date of Phone Billing Address Personal/[place] [address]
--- OUTSIDE RECORDS SUMMARY | 2024-05-01 16:49 | XMS_ITS | Clinical Summary ---
Author Organization [facility] Address [address] [place] [address] Care Team Providers Care Implementation Engineer Name Role Phone Julio Carter MD Primary Care Provider [phone]- [phone] Allergies No known active allergies Medications Medication Sig Dispensed Refills Start Date End Date Status insulin glargine, BASAGLAR KWIKPEN, 100 UNIT/ML pen injectionIndication s:Type 2 diabetes mellitus without complication, with long-term current use of insulin ([facility]) Inject 30 Units under the skin nightly. 15 mL 04/06/2020 Active metFORMIN (GLUCOPHAGE) 1000 MG tabletIndications:T ype 2 diabetes mellitus without complication, with long-term current use of insulin ([facility]) Take 1 tablet (1,000 mg total) by mouth 2 (two) times a day. 60 tablet 04/06/2020 Active Trulicity 0.75 MG/0.5ML subcutaneous injectionIndication s:Type 2 diabetes mellitus without complication, with long-term current use of insulin ([facility]) Inject 0.75 mg under the skin once a week. Every sunday 2 mL 04/06/2020 Active amLODIPine (NORVASC) 5 MG tabletIndications:T ype 2 diabetes mellitus without complication, with long-term current use of insulin ([facility]),Essential hypertension Take 1 tablet (5 mg total) by mouth daily. 30 tablet 04/06/2020 Active lisinopril (PRINIVIL,ZeSTRIL) 30 MG tabletIndications:T ype 2 diabetes mellitus without complication, with long-term current use of insulin ([facility]),Essential hypertension Take 1 tablet (30 mg total) by mouth daily. 30 tablet 04/06/2020 Active metoPROLOL TARTRATE (LOPRESSOR) 50 MG tabletIndications:P aroxysmal atrial fibrillation (HCC),Type 2 diabetes mellitus without complication, with long-term current use of insulin ([facility]),Essential hypertension Take 1 tablet (50 mg total) by mouth every 12 (twelve) hours around the clock. 60 tablet 04/06/2020 Active busPIRone (BUSPAR) 30 MG tabletIndications:S uicidal behavior without attempted self-injury,Type 2 diabetes mellitus without complication, with long-term current use of insulin ([facility]) Take 1 tablet (30 mg total) by mouth 3 (three) times a day. 90 tablet 04/06/2020 Active traMADol (ULTRAM) 50 MG tabletIndications:T ype 2 diabetes mellitus without complication, with long-term current use of insulin ([facility]) Take 1 tablet (50 mg total) by mouth 3 (three) times a day as needed for moderate pain or severe pain. For pain 15 tablet 04/06/2020 Active albuterol (PROVENTIL HFA; VENTOLIN HFA) 108 (90 Base) MCG/ACT inhalerIndications: Type 2 diabetes mellitus without complication, with long-term current use of insulin ([facility]) Inhale 2 puffs 4 times daily (every 6 hours) as needed for wheezing or shortness of breath. 1 Inhaler 04/06/2020 Active hydrOXYzine HCl (ATARAX) 25 MG tabletIndications:T ype 2 diabetes mellitus without complication, with long-term current use of insulin ([facility]) Take 1 tablet (25 mg total) by mouth 3 (three) times a day as needed for itching or anxiety. 30 tablet 04/06/2020 Active escitalopram (LEXAPRO) 20 MG tabletIndications:T ype 2 diabetes mellitus without complication, with long-term current use of insulin ([facility]) Take 1 tablet (20 mg total) by mouth daily. 30 tablet 04/06/2020 Active apixaban (ELIQUIS) 5 MG tabletIndications:P aroxysmal atrial fibrillation (HCC),Type 2 diabetes mellitus without complication, with long-term current use of insulin ([facility]) Take 1 tablet (5 mg total) by mouth every 12 (twelve) hours around the clock. 60 tablet 04/06/2020 Active ALPRAZolam (XANAX) 2 MG tabletIndications:S uicidal behavior without attempted self-injury,Type 2 diabetes mellitus without complication, with long-term current use of insulin ([facility]) Take 1 tablet (2 mg total) by mouth nightly as needed for anxiety. 5 tablet 04/06/2020 Active lidocaine (LIDODERM) 5 % patchIndications:Ty pe 2 diabetes mellitus without complication, with long-term current use of insulin ([facility]) Place 1 patch on the skin daily. Apply patch and leave on for 12 hours then remove. Patch may remain on skin for 12 hours per day. 30 patch 04/06/2020 Active diclofenac (VOLTAREN) 1 % gelIndications:Type 2 diabetes mellitus without complication, with long-term current use of insulin ([facility]) Apply 2 g topically 2 (two) times a day as needed for pain or muscle/joint pain. 100 g 04/06/2020 Active FREESTYLE LITE stripIndications:Ty pe 2 diabetes mellitus without complication, with long-term current use of insulin ([facility]) 100 test strips by Other (specify) route 3 (three) times a day before meals. Use as instructed 100 test strip 04/06/2020 Active tamsulosin (FLOMAX) 0.4 MG capsuleIndications: Type 2 diabetes mellitus without complication, with long-term current use of insulin ([facility]) Take 1 capsule (0.4 mg total) by mouth daily. 30 capsule 04/06/2020 Active B-D ULTRAFINE III SHORT PEN 31G X 8 MM MiscIndications:Typ e 2 diabetes mellitus without complication, with long-term current use of insulin ([facility]) Check blood glucose at least 3 times daily and once in the morning fasting. For diabetes mellitus ICD E 11.9 50 pen needle 04/06/2020 Active Insulin Pen Needle 31G X 8 MM MiscIndications:Typ e 2 diabetes mellitus without complication, with long-term current use of insulin ([facility]) Check blood glucose at least 3 times daily and once in the morning fasting. For diabetes mellitus ICD E 11.9 50 pen needle 04/06/2020 Active Blood Glucose Monitoring Suppl (FreeStyle Lite) DeviceIndications:T ype 2 diabetes mellitus without complication, with long-term current use of insulin ([facility]) Check blood glucose at least 3 times daily and once in the morning fasting. For diabetes mellitus ICD E 11.9 1 Device 04/06/2020 Active FREESTYLE LITE stripIndications:Ty pe 2 diabetes mellitus without complication, with long-term current use of insulin ([facility]) Check blood glucose at least 3 times daily and once in the morning fasting. For diabetes mellitus ICD E 11.9 100 test strip 04/06/2020 Active FreeStyle Lancets lancetIndications:T ype 2 diabetes mellitus without complication, with long-term current use of insulin ([facility]) Check blood glucose at least 3 times [...] Done Comments Hepatitis C Virus Screening 1972 Foot Exam 1982 Hemoglobin A1C 1982 Lipid [...] 2) 2022 Influenza Vaccine 10/11/2023 COVID-19 Vaccine (1 - 2023-2 5 season) 2023 Procedures Procedure [...] Child, Parent, Adult Sibling, Grandparent) Care Teams Implementation Engineer Relationship Specialty Start Date End Date Julio Carter MD [address] [place] [address] [address] [place] [address] PCP - General Internal Medicine 04/02/20
[2024-05-01 18:00] LABS: PSA,Total (Free>4and<10) 0.39 ng/mL (0.00-4.00); Prostate Specific Antigen 0.39 ng/mL (<0.05-4.0)
== END 2024-05-01 16:14 | disposition home or self-care (01) ==
LOC: HO.LAB 16:13
PROVIDERS: PCP Internal Medicine; Visit Provider Urology
DX: Z12.5 Encounter for screening for malignant neoplasm of prostate (principal)
CPT/HCPCS: 36415; 84153

== ENCOUNTER 2024-05-05 13:07 | Outpatient (AMB) | payer OTHER, SELFPAY ==
--- NOTE | 2024-05-05 13:30 | MHC.AMDMED ---
Intake Intake Visit Reasons: DM Paper And Prints Restorer Required: No Accompanied by: Self / Same As Patient Allergies Penicillins [PENICILLINS] Allergy (Unknown, Verified 04/15/24 13:45) RASH HPI Comprehensive Diabetes Asmnt Most Recent Diabetes Results: No Data to Display [facility] Medical History Uncontrolled type 2 diabetes mellitus with hyperglycemia Tachycardia Type 2 diabetes mellitus with hyperglycemia Paroxysmal atrial fibrillation Morbid obesity Substance abuse Essential hypertension Cocaine abuse Erectile dysfunction Polysubstance abuse Paroxysmal atrial fibrillation with rapid ventricular response Lumbar degenerative disc disease Substance abuse Diabetes Depression Overactive bladder Arthritis BPH (benign prostatic hyperplasia) Asthma Seizure Morbid obesity with BMI of 40.0-44.9, adult Benign essential hypertension Insomnia Primary osteoarthritis of both knees Anxiety Family history of thyroid disorder Surgical History No history of previous surgery Family History Father ETOH abuse Mother Diabetes Arthritis of knee Hypertension Other Mental health problem Substance abuse Social History Household Members: Friend(s) Household Members Other:: rents a room in a house Housing: House Housing Other:: rents a room Alcohol intake: current Alcohol intake frequency: does not drink Comment: patient refused Patient Tobacco Use Status: Never used Tobacco e-Cigarette/Vaping Use: Never Used Second Hand Smoke Exposure: No Substance Use Type: Marijuana and Opiates Advance Directives Date on File: 02/23/22 service: No Current occupational status: unemployed and disabled Sexual orientation: Straight/Heterosexual Cognitive needs: No Hearing needs: No Vision needs: No Assessment & Plan Assessment & Plan (1) Type 2 diabetes mellitus with hyperglycemia: Comment: Admitted for [facility] in July 2019 Code(s): E11.65 - Type 2 diabetes mellitus with hyperglycemia Qualifiers: Diabetes mellitus termite renewal inspector insulin use: without termite renewal inspector use Qualified Code(s): E11.65 - Type 2 diabetes mellitus with hyperglycemia Plan: Patient at visit for follow-up blood glucose check, and diabetes education Patient not currently wearing sensor, reports he can not find his Dexcom reader but he has sensors at home. We did download Dexcom G7 sonny on his phone. Instructed patient if he needs assistance setting up Dexcom G7 sensor with phone sonny to reschedule a point Patient reports blood sugars below: Date Breakfast/Fasting Pre-Lunch Pre-Supper Bedtime Notes 05/22 116 05/23 319 05/04 148 275 Patient not wearing sensor at today's visit. Very limited glucose data on 2 meters that patient brought in to download. Patient did report he is joined the [facility], he is using pool for physical activity. Asked if he could wear Dexcom G7 sensors in swimming pool. It is okay to wear sensor in pool although it should not be submerged more than 30 minutes at a time Patient instructed to set up Dexcom G7 sonny on smart phone with Dexcom G7 sensor Follow-up as needed Portions of this note were created using voice recognition software, please excuse any words or phrases that may have been misinterpreted. Patient Instructions: Call to set up appointment if you need assistance in setting up Dexcom G7 sonny Coding Level of Care Code Est Pt Level 1 (20472) Diagnoses Type 2 diabetes mellitus with hyperglycemia, without long-term current use of insulin E11.65 Diabetes mellitus custodial insulin use: without termite renewal inspector use
--- OUTSIDE RECORDS SUMMARY | 2024-05-05 14:57 | XMS_ITS | Clinical Summary ---
Author Organization [facility] ity Address [address] [place] [address] Care Team Providers Care Seaman Name Role Phone Unavailable Primary Care Provider [...]
--- OUTSIDE RECORDS SUMMARY | 2024-05-05 14:57 | XMS_ITS | Clinical Summary ---
Author Organization [facility] Address [address] [place] [address] Care Team Providers Care Special Events Driver Name Role Phone Unavailable Primary Care Provider [...] complete this topic Insurance Kermit KRIST[place] [id number] [place] AD[place] * Guarantor: Herman Mcintosh Account Type Relation to Patient Date of Phone Billing Address Personal/[place] [address] * Guarantor: Herman Mcintosh Account Type Relation to Patient Date of Phone Billing Address Personal/[place] [address] * Guarantor: Herman Mcintosh Account Type Relation to Patient Date of Phone Billing Address [place] [address] * Guarantor: Herman Mcintosh Account Type Relation to Patient Date of Phone Billing Address Personal/[place] [address]
--- OUTSIDE RECORDS SUMMARY | 2024-05-05 14:57 | XMS_ITS | Encounter Summary ---
Author Organization [facility] Address [address] [place] [address] Care Team Providers Care Dialysis Rn Name Role Phone Unavailable Primary Care Provider Unavailabl e Reason for Visit * Reason Onset Date Comments medication 07/12/2022 Appointment 07/12/2022 Encounter Details Date Type Department Care Team ([facility] st Contact Info) Description 07/12/2022 Telephone [facility] [address] [place] [address] Storm Maciel DDS [address] [place] [address] medication; Appointment Social History Tobacco Use Types [...]
--- OUTSIDE RECORDS SUMMARY | 2024-05-05 14:57 | XMS_ITS | Clinical Summary ---
Author Organization [facility] Address [address] [place] [address] Care Team Providers Care Cherry Sorter Name Role Phone Julio Carter MD Primary Care Provider +1- [phone] Allergies No known active allergies Medications Medication Sig Dispensed Refills Start Date End Date Status insulin glargine, BASAGLAR KWIKPEN, 100 UNIT/ML pen injectionIndication s:Type 2 diabetes mellitus without complication, with long-term current use of insulin ([facility]) Inject 30 Units under the skin nightly. 15 mL 04/06/2020 Active metFORMIN (GLUCOPHAGE) 1000 MG tabletIndications:T ype 2 diabetes mellitus without complication, with long-term current use of insulin ([facility]) Take 1 tablet (1,000 mg total) by mouth 2 (two) times a day. 60 tablet 04/06/2020 Active Trulicity 0.75 MG/0.5ML subcutaneous injectionIndication s:Type 2 diabetes mellitus without complication, with long-term current use of insulin ([facility]) Inject 0.75 mg under the skin once a week. Every sunday 2 mL 04/06/2020 Active amLODIPine (NORVASC) 5 MG tabletIndications:T ype 2 diabetes mellitus without complication, with long-term current use of insulin ([facility]),Essential hypertension Take 1 tablet (5 mg total) by mouth daily. 30 tablet 04/06/2020 Active lisinopril (PRINIVIL,ZeSTRIL) 30 MG tabletIndications:T ype 2 diabetes mellitus without complication, with long-term current use of insulin ([facility]),Essential hypertension Take 1 tablet (30 mg total) by mouth daily. 30 tablet 04/06/2020 Active metoPROLOL TARTRATE (LOPRESSOR) 50 MG tabletIndications:P aroxysmal atrial fibrillation (HCC),Type 2 diabetes mellitus without complication, with long-term current use of insulin ([facility]),Essential hypertension Take 1 tablet (50 mg total) by mouth every 12 (twelve) hours around the clock. 60 tablet 04/06/2020 Active busPIRone (BUSPAR) 30 MG tabletIndications:S uicidal behavior without attempted self-injury,Type 2 diabetes mellitus without complication, with long-term current use of insulin ([facility]) Take 1 tablet (30 mg total) by mouth 3 (three) times a day. 90 tablet 04/06/2020 Active traMADol (ULTRAM) 50 MG tabletIndications:T ype 2 diabetes mellitus without complication, with long-term current use of insulin ([facility]) Take 1 tablet (50 mg total) by mouth 3 (three) times a day as needed for moderate pain or severe pain. For pain 15 tablet 04/06/2020 Active albuterol (PROVENTIL HFA; VENTOLIN HFA) 108 (90 Base) MCG/ACT inhalerIndications: Type 2 diabetes mellitus without complication, with long-term current use of insulin ([facility]) Inhale 2 puffs 4 times daily (every 6 hours) as needed for wheezing or shortness of breath. 1 Inhaler 04/06/2020 Active hydrOXYzine HCl (ATARAX) 25 MG tabletIndications:T ype 2 diabetes mellitus without complication, with long-term current use of insulin ([facility]) Take 1 tablet (25 mg total) by mouth 3 (three) times a day as needed for itching or anxiety. 30 tablet 04/06/2020 Active escitalopram (LEXAPRO) 20 MG tabletIndications:T ype 2 diabetes mellitus without complication, with long-term current use of insulin ([facility]) Take 1 tablet (20 mg total) by mouth daily. 30 tablet 04/06/2020 Active apixaban (ELIQUIS) 5 MG tabletIndications:P aroxysmal atrial fibrillation (HCC),Type 2 diabetes mellitus without complication, with long-term current use of insulin ([facility]) Take 1 tablet (5 mg total) by mouth every 12 (twelve) hours around the clock. 60 tablet 04/06/2020 Active ALPRAZolam (XANAX) 2 MG tabletIndications:S uicidal behavior without attempted self-injury,Type 2 diabetes mellitus without complication, with long-term current use of insulin ([facility]) Take 1 tablet (2 mg total) by mouth nightly as needed for anxiety. 5 tablet 04/06/2020 Active lidocaine (LIDODERM) 5 % patchIndications:Ty pe 2 diabetes mellitus without complication, with long-term current use of insulin ([facility]) Place 1 patch on the skin daily. Apply patch and leave on for 12 hours then remove. Patch may remain on skin for 12 hours per day. 30 patch 04/06/2020 Active diclofenac (VOLTAREN) 1 % gelIndications:Type 2 diabetes mellitus without complication, with long-term current use of insulin ([facility]) Apply 2 g topically 2 (two) times a day as needed for pain or muscle/joint pain. 100 g 04/06/2020 Active FREESTYLE LITE stripIndications:Ty pe 2 diabetes mellitus without complication, with long-term current use of insulin ([facility]) 100 test strips by Other (specify) route 3 (three) times a day before meals. Use as instructed 100 test strip 04/06/2020 Active tamsulosin (FLOMAX) 0.4 MG capsuleIndications: Type 2 diabetes mellitus without complication, with long-term current use of insulin ([facility]) Take 1 capsule (0.4 mg total) by mouth daily. 30 capsule 04/06/2020 Active B-D ULTRAFINE III SHORT PEN 31G X 8 MM MiscIndications:Typ e 2 diabetes mellitus without complication, with long-term current use of insulin ([facility]) Check blood glucose at least 3 times daily and once in the morning fasting. For diabetes mellitus ICD E 11.9 50 pen needle 04/06/2020 Active Insulin Pen Needle 31G X 8 MM MiscIndications:Typ e 2 diabetes mellitus without complication, with long-term current use of insulin ([facility]) Check blood glucose at least 3 times daily and once in the morning fasting. For diabetes mellitus ICD E 11.9 50 pen needle 04/06/2020 Active Blood Glucose Monitoring Suppl (FreeStyle Lite) DeviceIndications:T ype 2 diabetes mellitus without complication, with long-term current use of insulin ([facility]) Check blood glucose at least 3 times daily and once in the morning fasting. For diabetes mellitus ICD E 11.9 1 Device 04/06/2020 Active FREESTYLE LITE stripIndications:Ty pe 2 diabetes mellitus without complication, with long-term current use of insulin ([facility]) Check blood glucose at least 3 times daily and once in the morning fasting. For diabetes mellitus ICD E 11.9 100 test strip 04/06/2020 Active FreeStyle Lancets lancetIndications:T ype 2 diabetes mellitus without complication, with long-term current use of insulin ([facility]) Check blood glucose at least [...] Child, Parent, Adult Sibling, Grandparent) Care Teams Cherry Sorter Relationship Specialty Start Date End Date Julio Carter MD [address] [place] [address] [address] [place] [address] PCP - General Internal Medicine 04/02/20
== END 2024-05-05 13:35 | disposition home or self-care (01) ==
PROVIDERS: PCP Internal Medicine; Visit Provider Registered Nurse Diabetes Educator
DX: E11.65 Type 2 diabetes mellitus with hyperglycemia (principal)

== ENCOUNTER → 2024-05-05 13:07 | Outpatient (BNVA) | payer OTHER, SELFPAY | PROVIDERS: PCP Internal Medicine; Visit Provider Registered Nurse Diabetes Educator | DX: E11.65 Type 2 diabetes mellitus with hyperglycemia (principal) | CPT/HCPCS: 99211 ==

== ENCOUNTER 2024-05-30 13:59 | Outpatient (AMB) | payer OTHER, SELFPAY ==
--- NOTE | 2024-05-30 14:12 | MHC.OFFVIS ---
Vital Signs 05/30/24 14:15 Height 5 ft 10 in Weight 314 lb 2.539 oz BMI 45.1 BP 126/70 Blood Pressure Location Rt brachial Position Sitting Pulse 81 Pulse Source Pulse Oximeter Pulse Oximetry (%) 98 Oxygen Delivery Method Room Air Intake Visit Reasons: T2DM Intake Note: Patient present today to follow up on Type 2 Diabetes Mellitus. Last Diabetic Eye exam: Due, pending appointment Last Podiatry Visit: Does not see a Healthcare Administrator Random Glucose: 250 mg/dl HgA1C: 13.9% 03/13/2024 Heavy Equipment Engine Mechanic Required: No Accompanied by: Self / Same As Patient Allergies Penicillins [PENICILLINS] Allergy (Unknown, Verified 05/30/24 14:16) RASH HPI Comments Details: This is a 54-year-old male with a past medical history of polysubstance abuse, uncontrolled type 2 diabetes, depression, atrial flutter with RVR, PTSD presenting for diabetic management. His diabetic management has been complicated by polysubstance abuse. Hemoglobin A1c 13.9% 03/13/2024. He forgot his meter today. He wasn't taking Ozempic for the past month. He just restarted it. He is not taking Metformin consistently. He is taking Tresiba 80 units nightly. Past medications: Januvia ineffective Lantus discontinued SGLT2 not prescribed-history of balanitis Endorses polyuria, polydipsia and dry lips with high sugars. Denies hypoglycemia. ROS: Constitutional: No fevers or chills. Eyes: No vision changes, blurry vision, double vision Respiratory: No shortness of breath, cough or sputum production. Cardiovascular: No chest pain, chest pressure, palpitations. Endocrine: See HPI Psychiatric: Endorses depression and anxiety. Denies SI/HI. Physical exam: Constitutional: Alert, in no distress. Respiratory: Clear to auscultation. Cardiovascular: S1 S2 regular. No murmurs. Extremities: Warm and well perfused. No clubbing, cyanosis or edema. 1+ lower extremity edema bilaterally. Psychiatric: Normal mood and affect [facility] Medical History Uncontrolled type 2 diabetes mellitus with hyperglycemia Tachycardia Type 2 diabetes mellitus with hyperglycemia Paroxysmal atrial fibrillation Morbid obesity Substance abuse Essential hypertension Cocaine abuse Erectile dysfunction Polysubstance abuse Paroxysmal atrial fibrillation with rapid ventricular response Lumbar degenerative disc disease Substance abuse Diabetes Depression Overactive bladder Arthritis BPH (benign prostatic hyperplasia) Asthma Seizure Morbid obesity with BMI of 40.0-44.9, adult Benign essential hypertension Insomnia Primary osteoarthritis of both knees Anxiety Family history of thyroid disorder Surgical History No history of previous surgery Family History Father ETOH abuse Mother Diabetes Arthritis of knee Hypertension Other Mental health problem Substance abuse Social History Household Members: Friend(s) Household Members Other:: rents a room in a house Housing: House Housing Other:: rents a room Alcohol intake: current Alcohol intake frequency: does not drink Comment: patient refused Patient Tobacco Use Status: Never used Tobacco e-Cigarette/Vaping Use: Never Used Second Hand Smoke Exposure: No Substance Use Type: Marijuana and Opiates Advance Directives Date on File: 02/23/22 service: No Current occupational status: unemployed and disabled Sexual orientation: Straight/Heterosexual Cognitive needs: No Hearing needs: No Vision needs: No Physical Exam Vital Signs: Last Vital Signs Pulse 81 05/30/24 14:15 BP 126/70 05/30/24 14:15 Pulse Ox 98 05/30/24 14:15 Oxygen Delivery Method Room Air 05/30/24 14:15 BMI result Body Mass Index 45.1 Results Reviewed Results Reviewed: Laboratory Tests 03/13/24 03/13/24 15:41 15:49 Creatinine 1.07 Estimated GFR > 60 Hemoglobin A1c % 13.9 H AST 24 ALT 35 Triglycerides 200 H Cholesterol 150 LDL Cholesterol, Calc 69 HDL Cholesterol 41 TSH 1.14 Urine Creatinine 103.05 Urine Microalbumin 27.0 Microalb/Creat Ratio 26.2 Assessment & Plan Assessment & Plan (1) Uncontrolled type 2 diabetes mellitus with hyperglycemia: Code(s): E11.65 - Type 2 diabetes mellitus with hyperglycemia Category: Medical Plan In summary this is a 54-year-old male with uncontrolled type 2 diabetes. Treatment complicated by polysubstance abuse and noncompliance. Continue Ozempic 2 mg once weekly. He just restarted this. Reviewed the importance of medication compliance with the patient. He agreed to take metformin extended release 2000 mg once daily. Continue Tresiba 80 units nightly. We discussed that he may need prandial insulin to get his diabetes under control, but he is resistant to the idea of taking multiple injections per day, and I do worry about his compliance with this. Re-evaluate at next visit. No data to review today so I reminded him to bring his sensor to the next appointment so we can make further decisions about his make medication regimen. If you experience low blood sugar, treat this by eating a chewable fruit candy like skittles or jelly beans (about 8 pieces), 4 ounces (1/2 cup) of fruit juice (not diet), 1 tablespoon of honey or 4 glucose tablets. If your blood sugar is under 55, take double the amount of one of the above. Recheck your blood sugar in 15 minutes. Patient followed by healthcare educator. Follow up in 2 weeks for type 2 diabetes. Coding Level of Care Code Est Pt Level 4 (65840) Complex EM visit Add On G2211 Diagnoses Uncontrolled type 2 diabetes mellitus with hyperglycemia E11.65
[2024-05-30 14:15] VITALS: BP 126/70; PULSE 81; O2SAT 98; BMI 45.1
[2024-05-30 14:47] LABS: Glucose, Whole Blood 250 mg/dL (60-115)
--- OUTSIDE RECORDS SUMMARY | 2024-05-30 16:17 | XMS_ITS | Encounter Summary ---
Author Organization [employer] Address [address] [place] [address] Care Team Providers Care Manager Internal Name Role Phone Unavailable Primary Care Provider Unavailabl e Reason for Visit * Reason Onset Date Comments medication 07/12/2022 Appointment 07/12/2022 Encounter Details Date Type Department Care Team ([facility] st Contact Info) Description 07/12/2022 Telephone [facility] ADULT [facility] [address] [place] [address] Storm Maciel DDS [address] [place] [address] medication; Appointment Social History Tobacco Use Types [...]
--- OUTSIDE RECORDS SUMMARY | 2024-05-30 16:17 | XMS_ITS | Clinical Summary ---
Author Organization [facility] ity Address [address] [place] [address] Care Team Providers Care Chief Safety Officer Name Role Phone Unavailable Primary Care Provider [...]
--- OUTSIDE RECORDS SUMMARY | 2024-05-30 16:17 | XMS_ITS | Clinical Summary ---
Author Organization [facility] Address [address] [place] [id number] Care Team Providers Care Experimental Preflight Mechanic Name Role Phone Julio Carter MD Primary Care Provider [phone] Allergies No known active allergies Medications Medication Sig Dispensed Refills Start Date End Date Status insulin glargine, BASAGLAR KWIKPEN, 100 UNIT/ML pen injectionIndication s:Type 2 diabetes mellitus without complication, with long-term current use of insulin ([facility]) Inject 30 Units under the skin nightly. 15 mL 04/06/2020 Active metFORMIN (GLUCOPHAGE) 1000 MG tabletIndications:T ype 2 diabetes mellitus without complication, with long-term current use of insulin ([facility]) Take 1 tablet (1,000 mg total) by mouth 2 (two) times a day. 60 tablet 04/06/2020 Active Trulicity 0.75 MG/0.5ML subcutaneous injectionIndication s:Type 2 diabetes mellitus without complication, with long-term current use of insulin ([facility]) Inject 0.75 mg under the skin once a week. Every sunday 2 mL 04/06/2020 Active amLODIPine (NORVASC) 5 MG tabletIndications:T ype 2 diabetes mellitus without complication, with long-term current use of insulin ([facility]),Essential hypertension Take 1 tablet (5 mg total) by mouth daily. 30 tablet 04/06/2020 Active lisinopril (PRINIVIL,ZeSTRIL) 30 MG tabletIndications:T ype 2 diabetes mellitus without complication, with long-term current use of insulin ([facility]),Essential hypertension Take 1 tablet (30 mg total) by mouth daily. 30 tablet 04/06/2020 Active metoPROLOL TARTRATE (LOPRESSOR) 50 MG tabletIndications:P aroxysmal atrial fibrillation (HCC),Type 2 diabetes mellitus without complication, with long-term current use of insulin ([facility]),Essential hypertension Take 1 tablet (50 mg total) by mouth every 12 (twelve) hours around the clock. 60 tablet 04/06/2020 Active busPIRone (BUSPAR) 30 MG tabletIndications:S uicidal behavior without attempted self-injury,Type 2 diabetes mellitus without complication, with long-term current use of insulin ([facility]) Take 1 tablet (30 mg total) by mouth 3 (three) times a day. 90 tablet 04/06/2020 Active traMADol (ULTRAM) 50 MG tabletIndications:T ype 2 diabetes mellitus without complication, with long-term current use of insulin ([facility]) Take 1 tablet (50 mg total) by mouth 3 (three) times a day as needed for moderate pain or severe pain. For pain 15 tablet 04/06/2020 Active albuterol (PROVENTIL HFA; VENTOLIN HFA) 108 (90 Base) MCG/ACT inhalerIndications: Type 2 diabetes mellitus without complication, with long-term current use of insulin ([facility]) Inhale 2 puffs 4 times daily (every 6 hours) as needed for wheezing or shortness of breath. 1 Inhaler 04/06/2020 Active hydrOXYzine HCl (ATARAX) 25 MG tabletIndications:T ype 2 diabetes mellitus without complication, with long-term current use of insulin ([facility]) Take 1 tablet (25 mg total) by mouth 3 (three) times a day as needed for itching or anxiety. 30 tablet 04/06/2020 Active escitalopram (LEXAPRO) 20 MG tabletIndications:T ype 2 diabetes mellitus without complication, with long-term current use of insulin ([facility]) Take 1 tablet (20 mg total) by mouth daily. 30 tablet 04/06/2020 Active apixaban (ELIQUIS) 5 MG tabletIndications:P aroxysmal atrial fibrillation (HCC),Type 2 diabetes mellitus without complication, with long-term current use of insulin ([facility]) Take 1 tablet (5 mg total) by mouth every 12 (twelve) hours around the clock. 60 tablet 04/06/2020 Active ALPRAZolam (XANAX) 2 MG tabletIndications:S uicidal behavior without attempted self-injury,Type 2 diabetes mellitus without complication, with long-term current use of insulin ([facility]) Take 1 tablet (2 mg total) by mouth nightly as needed for anxiety. 5 tablet 04/06/2020 Active lidocaine (LIDODERM) 5 % patchIndications:Ty pe 2 diabetes mellitus without complication, with long-term current use of insulin ([facility]) Place 1 patch on the skin daily. Apply patch and leave on for 12 hours then remove. Patch may remain on skin for 12 hours per day. 30 patch 04/06/2020 Active diclofenac (VOLTAREN) 1 % gelIndications:Type 2 diabetes mellitus without complication, with long-term current use of insulin ([facility]) Apply 2 g topically 2 (two) times a day as needed for pain or muscle/joint pain. 100 g 04/06/2020 Active FREESTYLE LITE stripIndications:Ty pe 2 diabetes mellitus without complication, with long-term current use of insulin ([facility]) 100 test strips by Other (specify) route 3 (three) times a day before meals. Use as instructed 100 test strip 04/06/2020 Active tamsulosin (FLOMAX) 0.4 MG capsuleIndications: Type 2 diabetes mellitus without complication, with long-term current use of insulin ([facility]) Take 1 capsule (0.4 mg total) by mouth daily. 30 capsule 04/06/2020 Active B-D ULTRAFINE III SHORT PEN 31G X 8 MM MiscIndications:Typ e 2 diabetes mellitus without complication, with long-term current use of insulin ([facility]) Check blood glucose at least 3 times daily and once in the morning fasting. For diabetes mellitus ICD E 11.9 50 pen needle 04/06/2020 Active Insulin Pen Needle 31G X 8 MM MiscIndications:Typ e 2 diabetes mellitus without complication, with long-term current use of insulin ([facility]) Check blood glucose at least 3 times daily and once in the morning fasting. For diabetes mellitus ICD E 11.9 50 pen needle 04/06/2020 Active Blood Glucose Monitoring Suppl (FreeStyle Lite) DeviceIndications:T ype 2 diabetes mellitus without complication, with long-term current use of insulin ([facility]) Check blood glucose at least 3 times daily and once in the morning fasting. For diabetes mellitus ICD E 11.9 1 Device 04/06/2020 Active FREESTYLE LITE stripIndications:Ty pe 2 diabetes mellitus without complication, with long-term current use of insulin ([facility]) Check blood glucose at least 3 times daily and once in the morning fasting. For diabetes mellitus ICD E 11.9 100 test strip 04/06/2020 Active FreeStyle Lancets lancetIndications:T ype 2 diabetes mellitus without complication, with long-term current use of insulin ([facility]) Check blood glucose at least 3 times [...] Child, Parent, Adult Sibling, Grandparent) Care Teams Experimental Preflight Mechanic Relationship Specialty Start Date End Date Julio Carter MD [address] [place] [address] [address] [place] [address] PCP - General Internal Medicine 04/02/20
--- OUTSIDE RECORDS SUMMARY | 2024-05-30 16:17 | XMS_ITS | Clinical Summary ---
Author Organization [facility] Address [address] [place] [address] Care Team Providers Care Private Wealth Advisor Name Role Phone Unavailable Primary Care Provider [...] Panel 1972 SDOH Screening 1972 Sigmoidoscopy 1972 Alcohol/Substance Use Screening 1984 Family Planning (PISQ) [...] Date of Phone Billing Address Personal/[place] [address] * Guarantor: Herman Mcintosh Account Type Relation to Patient Date of Phone Billing Address [place] [address] * Guarantor: Herman Mcintosh Account Type Relation to Patient Date of Phone Billing Address Personal/[place] [address]
== END 2024-05-30 14:43 | disposition home or self-care (01) ==
LOC: HO.ENCR 13:59
PROVIDERS: PCP Internal Medicine; Visit Provider Physician Assistant Medical
DX: E11.65 Type 2 diabetes mellitus with hyperglycemia (principal)

== ENCOUNTER → 2024-05-30 13:59 | Outpatient (BNVA) | payer OTHER, SELFPAY | PROVIDERS: PCP Internal Medicine; Visit Provider Physician Assistant Medical | DX: E11.65 Type 2 diabetes mellitus with hyperglycemia (principal); Z79.4 Long term (current) use of insulin | CPT/HCPCS: 82947; 99212 ==

== ENCOUNTER 2024-06-06 15:53 | Outpatient (AMB) | payer OTHER, SELFPAY ==
--- NOTE | 2024-06-06 14:38 | MHC.OFFVIS ---
Intake Visit Reasons: 9m/PSA Intake Note: Patient presents today for 9m/PSA Urology Medication:none Blood Thinner:Apixaban Antibiotic Allergies:none Allergies Penicillins [PENICILLINS] Allergy (Unknown, Verified 07/11/24 13:38) RASH Medication List - Last Reconciled 06/06/24 by Peyman Bhatti MD amiodarone 400 mg (2 x 200 mg) PO BID apixaban (Eliquis) 5 mg PO BID 30 days blood sugar diagnostic (FreeStyle Lite Strips) As directed blood-glucose meter (FreeStyle Lite Meter kit) Use as directed to check glucose twice daily. blood-glucose meter,continuous ([employer] G7 Alterations Workroom Clerk) As directed blood-glucose sensor ([employer] G7 Sensor device) As directed change every 10 days buspirone 30 mg PO BID clotrimazole-betamethasone 1-0.05 % 1 appl topical BID PRN diltiazem HCl CD (Cardizem CD) 240 mg PO DAILY escitalopram oxalate 20 mg PO DAILY insulin degludec (Tresiba FlexTouch U-200 insulin) 80 units (0.4 mL) subcut BEDTIME lidocaine 5% 2 patches topical DAILY PRN 30 days metformin ER 2,000 mg (4 x 500 mg) PO DAILY methadone (Methadose) 20 mg (2 mL) PO DAILY@0800 metoprolol tartrate 25 mg PO BID pen needle, diabetic (BD Ultra-Fine Mini Pen Needle) USE DIRECTED ONCE DAILY [ROLLATOR As directed] semaglutide (Ozempic) 2 mg (0.75 mL) subcut QWEEK sodium chloride 0.65% (Saline Nasal) 2 sprays intranasal QID PRN tramadol 50 mg PO TID PRN 30 days Ventolin HFA 90 mcg/actuation (albuterol sulfate) 2 puffs inhalation Q4-6H PRN NS zolpidem 10 mg PO BEDTIME PRN HPI Comments Details: 06/06/24--Herman is a 54 year old male h/o DM, Obesity, has been treated for balanitis; is being evaluated with telehealth to discuss PSA screening results. He denies obstructive voiding symptoms. Will monitor PSA annually. PSA -- 05/01/24--0.39 ng/mL 07/30/23--Herman is here for 6 month fu, he states the the cream is working well and he does not need a circumcision. He denies FH prostate cancer, discussed PSA screening, Cont Lotrisone cream prn for balanitis. 01/29/23--Herman is here with complaints of irritation of foreskin, CoMorbidities DM. Obesity He denies hematuria. H/o polysubstance abuse exam- c/w balanitis Plan- pt states he is not interested in circumcision at this time Lotrisone cream prescribed PFS Medical History Uncontrolled type 2 diabetes mellitus with hyperglycemia Tachycardia Type 2 diabetes mellitus with hyperglycemia Paroxysmal atrial fibrillation Morbid obesity Substance abuse Essential hypertension Cocaine abuse Erectile dysfunction Polysubstance abuse Paroxysmal atrial fibrillation with rapid ventricular response Lumbar degenerative disc disease Substance abuse Diabetes Depression Overactive bladder Arthritis BPH (benign prostatic hyperplasia) Asthma Seizure Morbid obesity with BMI of 40.0-44.9, adult Benign essential hypertension Insomnia Primary osteoarthritis of both knees Anxiety Family history of thyroid disorder Surgical History No history of previous surgery Family History Father ETOH abuse Mother Diabetes Arthritis of knee Hypertension Other Mental health problem Substance abuse Social History Household Members: Friend(s) Household Members Other:: rents a room in a house Housing: House Housing Other:: rents a room Alcohol intake: current Alcohol intake frequency: does not drink Comment: patient refused Patient Tobacco Use Status: Never used Tobacco e-Cigarette/Vaping Use: Never Used Second Hand Smoke Exposure: No Substance Use Type: Marijuana and Opiates Advance Directives Date on File: 02/23/22 service: No Current occupational status: unemployed and disabled Sexual orientation: Straight/Heterosexual Cognitive needs: No Hearing needs: No Vision needs: No Review of Systems Const All systems reviewed & are unremarkable except as noted in HPI and below Reports no additional complaints Eyes Reports no additional complaints ENT Reports no additional complaints Card Reports no additional complaints Resp Reports no additional complaints GI Reports no additional complaints Reports as per HPI Musc Reports no additional complaints Skin/Breast Reports system reviewed and no additional complaints, except as documented Neuro Reports no additional complaints Psych Reports no additional complaints Endo Reports no additional complaints Jose/Lymph Reports no additional complaints Aller/Immun Reports no additional complaints Telehealth Telehealth Telehealth Platform: Telephone Location of provider rendering services: practice address Location of patient: address on file Patient Identification confirmed using: Name, : Yes Telehealth method: voice only Patient verbally consented to treatment: Yes Patient verbally consented to billing insurance company: Yes Patient informed of any privacy concerns related to visit: Yes Minutes spent on Phone/Video with Pt.: 13 Assessment & Plan Assessment & Plan (1) Screening PSA (prostate specific antigen): Code(s): Z12.5 - Encounter for screening for malignant neoplasm of prostate Category: Medical (2) Balanitis: Code(s): N48.1 - Balanitis Category: Medical (3) Diabetes: Code(s): E11.9 - Type 2 diabetes mellitus without complications Category: Medical Plan Lotrisone cream prn. PSA screening annually. Orders: Orders PSA,Total (Free>4and<10) 05/01/24 Z12.5 - Encounter for screening for malignant neoplasm of prostate Medications: Refilled clotrimazole-betamethasone 1-0.05 % apply to affected area bid for 7 days then bid 1 appl topical BID PRN 45 grams 3RF balanitis Patient Instructions: The patient had an opportunity to ask questions regarding treatment plan. The patient expressed understanding and agreement with the above treatment plan. The patient is aware they should contact our office by phone for worsening of their current condition or the appearance of new symptoms. Compliance is encouraged with any medications and followup testing that is ordered. It is a privilege to be allowed the opportunity to participate in the urologic care of your patient. If you have any questions or concerns regarding treatment for the above conditions please do not hesitate to contact me. The office telephone contact is [phone]. This note is constructed in part using voice recognition software. While every effort has been made to ensure accuracy calibrator barometers errors may have been included. Yours sincerely, Peyman Bhatti MD Coding Level of Care Code Tele Est Pt Level 3 (93205) Diagnoses Screening PSA (prostate specific antigen) Z12.5 Balanitis N48.1 Diabetes E11.9
== END 2024-06-06 16:40 | disposition home or self-care (01) ==
LOC: HO.HUSH 15:53
PROVIDERS: PCP Internal Medicine; Visit Provider Urology
DX: N48.1 Balanitis (principal); E11.9 Type 2 diabetes mellitus without complications; Z12.5 Encounter for screening for malignant neoplasm of prostate
CPT/HCPCS: 99213

== ENCOUNTER 2024-06-10 14:09 | Outpatient (AMB) | payer OTHER, SELFPAY ==
--- NOTE | 2024-06-10 14:13 | A.OFFVIS_ITS ---
Vital Signs 06/10/24 14:16 Height 5 ft 10 in Weight 313 lb 7.957 oz BMI 45.0 BP 138/82 Blood Pressure Location Lt brachial Position Sitting Pulse 93 Pulse Source Monitor Intake Visit Reasons: r/s 05/16/24 followup Intake Note: r/s 05/16 Drafter Required: No Accompanied by: Self / Same As Patient Allergies Penicillins [PENICILLINS] Allergy (Unknown, Verified 06/06/24 15:53) RASH Medication List - Last Reconciled 06/10/24 by Duc Hays NP amiodarone 400 mg (2 x 200 mg) PO BID apixaban (Eliquis) 5 mg PO BID 30 days blood sugar diagnostic (FreeStyle Lite Strips) As directed blood-glucose meter (FreeStyle Lite Meter kit) Use as directed to check glucose twice daily. blood-glucose meter,continuous (Dexcom G7 Studio Operations Engineer In Charge) As directed blood-glucose sensor (Dexcom G7 Sensor device) As directed change every 10 days buspirone 30 mg PO BID clotrimazole-betamethasone 1-0.05 % 1 appl topical BID PRN diltiazem HCl CD (Cardizem CD) 240 mg PO DAILY escitalopram oxalate 20 mg PO DAILY insulin degludec (Tresiba FlexTouch U-200 insulin) 80 units (0.4 mL) subcut BEDTIME lidocaine 5% 2 patches topical DAILY PRN 30 days metformin ER 2,000 mg (4 x 500 mg) PO DAILY methadone (Methadose) 20 mg (2 mL) PO DAILY@0800 metoprolol tartrate 25 mg PO BID pen needle, diabetic (BD Ultra-Fine Mini Pen Needle) USE DIRECTED ONCE DAILY [ROLLATOR As directed] semaglutide (Ozempic) 2 mg (0.75 mL) subcut QWEEK sodium chloride 0.65% (Saline Nasal) 2 sprays intranasal QID PRN tramadol 50 mg PO TID PRN 30 days Ventolin HFA 90 mcg/actuation (albuterol sulfate) 2 puffs inhalation Q4-6H PRN NS zolpidem 10 mg PO BEDTIME PRN HPI Comments Details: This is a 53-year-old male patient with a history of diabetes, obesity, atrial flutter with RVR, and polysubstance abuse presenting for a follow-up visit. Patient was previously hospitalized for atrial flutter with RVR and underwent synchronized cardioversion in the ambulance without sedation, successfully converting back to sinus rhythm. During his hospital stay he was started on amiodarone therapy and during his follow-up visit in the office, he was referred to an EP for possible ablation. However, the EP recommended against ablation, suggesting early intervention if any more arrhythmias occur. Today, the patient denies any cardiac symptoms, including exertional chest pain, shortness of breath, palpitations, dizziness, orthopnea, PND, leg edema, presyncope, or syncope. Patient reports being compliant with all his medications and does note that there are times when he does miss 1 dose here and there. Patient's primary complaint today is knee pain from arthritis for which he plans to follow up with his PCP. Patient otherwise is denying any use of street drugs including cocaine or heroin. He does note that he is still smoking marijuana. [facility] Medical History Uncontrolled type 2 diabetes mellitus with hyperglycemia Tachycardia Type 2 diabetes mellitus with hyperglycemia Paroxysmal atrial fibrillation Morbid obesity Substance abuse Essential hypertension Cocaine abuse Erectile dysfunction Polysubstance abuse Paroxysmal atrial fibrillation with rapid ventricular response Lumbar degenerative disc disease Substance abuse Diabetes Depression Overactive bladder Arthritis BPH (benign prostatic hyperplasia) Asthma Seizure Morbid obesity with BMI of 40.0-44.9, adult Benign essential hypertension Insomnia Primary osteoarthritis of both knees Anxiety Family history of thyroid disorder Surgical History No history of previous surgery Family History Father ETOH abuse Mother Diabetes Arthritis of knee Hypertension Other Mental health problem Substance abuse Social History Household Members: Friend(s) Household Members Other:: rents a room in a house Housing: House Housing Other:: rents a room Alcohol intake: current Alcohol intake frequency: does not drink Comment: patient refused Patient Tobacco Use Status: Never used Tobacco e-Cigarette/Vaping Use: Never Used Second Hand Smoke Exposure: No Substance Use Type: Marijuana and Opiates Advance Directives Date on File: 02/23/22 service: No Current occupational status: unemployed and disabled Sexual orientation: Straight/Heterosexual Cognitive needs: No Hearing needs: No Vision needs: No Review of Systems Const Denies chills, Denies fatigue, Denies fever(s), Denies frequent falls, Denies weakness, Denies weight gain and Denies weight loss ENT Denies dizziness Card Denies chest pain, Denies leg edema, Denies lightheadedness, Denies palpitations, Denies dyspnea and Denies dyspnea on exertion Resp Denies cough, Denies dyspnea and Denies dyspnea on exertion GI Denies hematochezia Musc Denies abnormal gait, Denies muscle weakness, Denies numbness, Denies radiating pain into limb and Denies tingling Neuro Denies abnormal gait, Denies dizziness, Denies frequent falls, Denies numbness, Denies tingling and Denies weakness Endo Denies fatigue and Denies palpitations Physical Exam Vital Signs: Last Vital Signs Pulse 93 06/10/24 14:16 BP 140/72 H 06/10/24 14:16 BMI result Body Mass Index 45.0 Const General: cooperative, healthy appearing, comfortable and no acute distress Orientation/consciousness: patient oriented x3 HEENT Head: Yes normal to inspection Neck Neck: Yes normal visual inspection, Yes trachea midline and Yes supple Chest Chest palpation & inspection: normal inspection of the chest Resp Effort & Inspection: normal respiratory effort Auscultation: clear to auscultation bilaterally, no crackles, no rales, no rhonchi and no wheezes Cardio Jugular venous distension: no JVD Palpation: normal PMI Rate: regular rate Rhythm: regular rhythm Heart sounds: S1 normal heart sound present, S2 normal heart sound present, no click, no gallops, no murmurs and no rubs Peripheral pulses: Peripheral pulses 2+ throughout GI Inspection: Yes normal to inspection Palpation (GI): Soft to palpation Auscultation: normal bowel sounds Skin General skin exam: no rashes or lesions noted Neuro General: patient oriented x3 Extrem General: Yes normal to inspection, No no pedal edema and No calf tenderness Psych Appearance: grossly normal Mental Status: mental status grossly normal Speech and movement: Normal speech and movement present Office Procedures EKG Details: EKG today showed underlying normal sinus rhythm, rate 93 beats per minute, possible right ventricular hypertrophy, T-wave inversion inferiorly, [place], [place] [id number], Complete Assessment & Plan Assessment & Plan (1) Paroxysmal atrial fibrillation with rapid ventricular response: Code(s): I48.0 - Paroxysmal atrial fibrillation Category: Medical (2) Abnormal EKG: Code(s): R94.31 - Abnormal electrocardiogram [ECG] [EKG] Category: Medical Plan EKG today was normal sinus rhythm with some T inversions inferiorly. We will proceed with a myocardial perfusion study with Lexiscan to evaluate this. Patient is unable to walk on a treadmill due to his arthritis in his knees. 02/19/2024- echo showed normal EF 55-60% with mild LVH with pseudo normal filling pattern, mildly dilator RV, mildly dilated LA, normal RV systolic pressure with elevated right atrial pressures, normal cardiac valvular Dopplers. 02/21/2024- dobutamine stress ECHO, eventful. During the test patient chest pain, had bursts of AFib with RVR, then wide complex tachycardia rate of 180s then followed by AFib RVR in the 160s, had to be treated with IV metoprolol 5 mg x2 with no effect, required IV bolus amiodarone 150 mg. However, stress echo was negative for ischemia. Patient converted back to sinus rhythm but decided to leave against medical advice. 04/21/2024-patient underwent a Holter study that showed sinus rhythm with average rate of 89 beats per minute, rare supraventricular ectopy with brief runs, rare ventricular ectopy. Patient saw the EP at [facility] who at this point recommended against ablation. They do note that in case of any other arrhythmias occurring again, patient can be seen again. Discussed the importance of adhering to Amiodarone and Metoprolol therapy. Continue with Eliquis 5 mg b.i.d. Blood pressure today is mildly elevated initially however upon recheck blood pressure is within normal range. Advised monitoring his blood pressures at home and keeping a log of it. Ideally, blood pressure goal less than 130/80. Most recent LDL at 69 within goal. Ideally, LDL goal less than 70. Continue aggressive diabetes management with A1c goal less than 7. Recommended heart healthy diet, exercise, weight management, smoking cessation, and to absolutely avoid using any street drugs including cocaine or heroin. Verbalizes understanding. We will follow-up in 3 months. In the interim, patient will call us with any concerns. This note was generated using voice recognition software. While every effort has been made to ensure accuracy and proper marine electronics technician, there may be occasional errors that could affect the content or meaning of the described symptoms. Orders: Orders AMB EKG-In Office Today I48.3 - Typical atrial flutter CA lexiscan stress w kimber Today R94.31 - Abnormal electrocardiogram [ECG] [EKG] NM cardiolite stress test Today R94.31 - Abnormal electrocardiogram [ECG] [EKG] Coding Level of Care Code Est Pt Level 4 (90030) Complex EM visit Add On G2211 Diagnoses Paroxysmal atrial fibrillation with rapid ventricular response I48.0 Abnormal EKG R94.31 CPT Codes EKG - CPT: 14032-[id number], Complete ([id number]) Time Spent (min) 34 Comment Time spent in reviewing the chart, test results, assessment, counseling and documentation.
[2024-06-10 14:16] VITALS: BP 138/82; PULSE 93; BMI 45.0
--- OUTSIDE RECORDS SUMMARY | 2024-06-10 16:56 | XMS_ITS | Clinical Summary ---
Author Organization [employer] [facility] Address [address] [place] [address] Care Team Providers Care Billing Typist Name Role Phone Unavailable Primary Care Provider [...]
--- OUTSIDE RECORDS SUMMARY | 2024-06-10 16:56 | XMS_ITS | Encounter Summary ---
Author Organization [employer] Address [address] [place] [address] Care Team Providers Care Production Packager Name Role Phone Unavailable Primary Care Provider Unavailabl e Reason for Visit * Reason Onset Date Comments medication 07/12/2022 Appointment 07/12/2022 Encounter Details Date Type Department Care Team ([facility] st Contact Info) Description 07/12/2022 Telephone [facility] [address] [place] [address] Storm Maciel DDS [address] [place] [address] medication; Appointment Social History Tobacco Use Types [...]
--- OUTSIDE RECORDS SUMMARY | 2024-06-10 16:56 | XMS_ITS | Clinical Summary ---
Author Organization [facility] Address [address] [place] [address] Care Team Providers Care Bankruptcy Assistant Name Role Phone Julio Carter MD Primary Care Provider [phone] Allergies No known active allergies Medications Medication Sig Dispensed Refills Start Date End Date Status insulin glargine, BASAGLAR KWIKPEN, 100 UNIT/ML pen injectionIndication s:Type 2 diabetes mellitus without complication, with long-term current use of insulin ([facility]) Inject 30 Units under the skin nightly. 15 mL 04/06/2020 Active metFORMIN (GLUCOPHAGE) 1000 MG tabletIndications:T ype 2 diabetes mellitus without complication, with long-term current use of insulin ([facility]) Take 1 tablet (1,000 mg total) by mouth 2 (two) times a day. 60 tablet 04/06/2020 Active Trulicity 0.75 MG/0.5ML subcutaneous injectionIndication s:Type 2 diabetes mellitus without complication, with long-term current use of insulin ([facility]) Inject 0.75 mg under the skin once a week. Every sunday 2 mL 04/06/2020 Active amLODIPine (NORVASC) 5 MG tabletIndications:T ype 2 diabetes mellitus without complication, with long-term current use of insulin ([facility]),Essential hypertension Take 1 tablet (5 mg total) by mouth daily. 30 tablet 04/06/2020 Active lisinopril (PRINIVIL,ZeSTRIL) 30 MG tabletIndications:T ype 2 diabetes mellitus without complication, with long-term current use of insulin ([facility]),Essential hypertension Take 1 tablet (30 mg total) by mouth daily. 30 tablet 04/06/2020 Active metoPROLOL TARTRATE (LOPRESSOR) 50 MG tabletIndications:P aroxysmal atrial fibrillation (HCC),Type 2 diabetes mellitus without complication, with long-term current use of insulin ([facility]),Essential hypertension Take 1 tablet (50 mg total) by mouth every 12 (twelve) hours around the clock. 60 tablet 04/06/2020 Active busPIRone (BUSPAR) 30 MG tabletIndications:S uicidal behavior without attempted self-injury,Type 2 diabetes mellitus without complication, with long-term current use of insulin ([facility]) Take 1 tablet (30 mg total) by mouth 3 (three) times a day. 90 tablet 04/06/2020 Active traMADol (ULTRAM) 50 MG tabletIndications:T ype 2 diabetes mellitus without complication, with long-term current use of insulin ([facility]) Take 1 tablet (50 mg total) by mouth 3 (three) times a day as needed for moderate pain or severe pain. For pain 15 tablet 04/06/2020 Active albuterol (PROVENTIL HFA; VENTOLIN HFA) 108 (90 Base) MCG/ACT inhalerIndications: Type 2 diabetes mellitus without complication, with long-term current use of insulin ([facility]) Inhale 2 puffs 4 times daily (every 6 hours) as needed for wheezing or shortness of breath. 1 Inhaler 04/06/2020 Active hydrOXYzine HCl (ATARAX) 25 MG tabletIndications:T ype 2 diabetes mellitus without complication, with long-term current use of insulin ([facility]) Take 1 tablet (25 mg total) by mouth 3 (three) times a day as needed for itching or anxiety. 30 tablet 04/06/2020 Active escitalopram (LEXAPRO) 20 MG tabletIndications:T ype 2 diabetes mellitus without complication, with long-term current use of insulin ([facility]) Take 1 tablet (20 mg total) by mouth daily. 30 tablet 04/06/2020 Active apixaban (ELIQUIS) 5 MG tabletIndications:P aroxysmal atrial fibrillation (HCC),Type 2 diabetes mellitus without complication, with long-term current use of insulin ([facility]) Take 1 tablet (5 mg total) by mouth every 12 (twelve) hours around the clock. 60 tablet 04/06/2020 Active ALPRAZolam (XANAX) 2 MG tabletIndications:S uicidal behavior without attempted self-injury,Type 2 diabetes mellitus without complication, with long-term current use of insulin ([facility]) Take 1 tablet (2 mg total) by mouth nightly as needed for anxiety. 5 tablet 04/06/2020 Active lidocaine (LIDODERM) 5 % patchIndications:Ty pe 2 diabetes mellitus without complication, with long-term current use of insulin ([facility]) Place 1 patch on the skin daily. Apply patch and leave on for 12 hours then remove. Patch may remain on skin for 12 hours per day. 30 patch 04/06/2020 Active diclofenac (VOLTAREN) 1 % gelIndications:Type 2 diabetes mellitus without complication, with long-term current use of insulin ([facility]) Apply 2 g topically 2 (two) times a day as needed for pain or muscle/joint pain. 100 g 04/06/2020 Active FREESTYLE LITE stripIndications:Ty pe 2 diabetes mellitus without complication, with long-term current use of insulin ([facility]) 100 test strips by Other (specify) route 3 (three) times a day before meals. Use as instructed 100 test strip 04/06/2020 Active tamsulosin (FLOMAX) 0.4 MG capsuleIndications: Type 2 diabetes mellitus without complication, with long-term current use of insulin ([facility]) Take 1 capsule (0.4 mg total) by mouth daily. 30 capsule 04/06/2020 Active B-D ULTRAFINE III SHORT PEN 31G X 8 MM MiscIndications:Typ e 2 diabetes mellitus without complication, with long-term current use of insulin ([facility]) Check blood glucose at least 3 times daily and once in the morning fasting. For diabetes mellitus ICD E 11.9 50 pen needle 04/06/2020 Active Insulin Pen Needle 31G X 8 MM MiscIndications:Typ e 2 diabetes mellitus without complication, with long-term current use of insulin ([facility]) Check blood glucose at least 3 times daily and once in the morning fasting. For diabetes mellitus ICD E 11.9 50 pen needle 04/06/2020 Active Blood Glucose Monitoring Suppl (FreeStyle Lite) DeviceIndications:T ype 2 diabetes mellitus without complication, with long-term current use of insulin ([facility]) Check blood glucose at least 3 times daily and once in the morning fasting. For diabetes mellitus ICD E 11.9 1 Device 04/06/2020 Active FREESTYLE LITE stripIndications:Ty pe 2 diabetes mellitus without complication, with long-term current use of insulin ([facility]) Check blood glucose at least 3 times daily and once in the morning fasting. For diabetes mellitus ICD E 11.9 100 test strip 04/06/2020 Active FreeStyle Lancets lancetIndications:T ype 2 diabetes mellitus without complication, with long-term current use of insulin ([facility]) Check blood glucose at least 3 times [...] Child, Parent, Adult Sibling, Grandparent) Care Teams Bankruptcy Assistant Relationship Specialty Start Date End Date Julio Carter MD [address] [place] [address] [address] [place] [address] PCP - General Internal Medicine 04/02/20
--- OUTSIDE RECORDS SUMMARY | 2024-06-10 16:56 | XMS_ITS | Clinical Summary ---
Author Organization [facility] ity Address [address] [place] [address] Care Team Providers Care Weight Control Engineer Name Role Phone Unavailable Primary Care Provider [...]
== END 2024-06-10 14:46 | disposition home or self-care (01) ==
LOC: HO.HCS 14:10
PROVIDERS: PCP Internal Medicine
DX: I48.0 Paroxysmal atrial fibrillation (principal); R94.31 Abnormal electrocardiogram [ECG] [EKG]
CPT/HCPCS: 93010; 99214; G2211

== ENCOUNTER → 2024-06-10 14:09 | Outpatient (BNVA) | payer OTHER, SELFPAY | PROVIDERS: PCP Internal Medicine | DX: I48.0 Paroxysmal atrial fibrillation (principal); R94.31 Abnormal electrocardiogram [ECG] [EKG] | CPT/HCPCS: 93005; 99212 ==

== ENCOUNTER 2024-06-13 14:01 | Outpatient (AMB) | payer OTHER, SELFPAY ==
--- NOTE | 2024-06-13 14:10 | A.OFFVIS_ITS ---
Vital Signs 06/13/24 14:15 Height 5 ft 10 in Weight 313 lb BMI 44.9 BP 152/84 H Blood Pressure Location Rt brachial Position Sitting Pulse 88 Pulse Source Pulse Oximeter Pulse Oximetry (%) 98 Oxygen Delivery Method Room Air Intake Visit Reasons: Type II diabetes Intake Note: Patient present today to follow up on Type 2 Diabetes Mellitus. Last Diabetic Eye exam: DUE Last Podiatry Visit: Does not see a Electro Mechanical Solar Technician Random Glucose: 191 mg/dl HgA1C: DUE Real Estate Assessor Required: No Accompanied by: Self / Same As Patient Allergies Penicillins [PENICILLINS] Allergy (Unknown, Verified 06/13/24 14:16) RASH HPI Comments Details: This is a 54-year-old male with a past medical history of polysubstance abuse, uncontrolled type 2 diabetes, depression, atrial flutter with RVR, PTSD presenting for diabetic management. His diabetic management has been complicated by polysubstance abuse. Patient attempted to leave the office before he was roomed today. administrative office assistant brought him in and checked POC which is 191. Hemoglobin A1c 13.9% 03/13/2024. He does not have his glucometer today. Patient says he is taking Ozempic 2 mg weekly, Tresiba 80 units nightly and metformin ER 2000 mg daily. He has struggled with compliance. Past medications: Januvia ineffective Lantus discontinued SGLT2 not prescribed-history of balanitis Endorses polyuria, polydipsia and dry lips with high sugars. Denies any hypoglycemic events. Patient repeatedly states that he wants to leave today because his phone is broken and he needs to get over to the store to get it fixed. He feels extremely anxious about it. Patient says he wishes to leave immediately when I entered the room. ROS: Constitutional: No fevers or chills. Eyes: No vision changes, blurry vision, double vision Respiratory: No shortness of breath, cough or sputum production. Cardiovascular: No chest pain, chest pressure, palpitations. Endocrine: See HPI Psychiatric: Endorses depression and anxiety. Denies SI/HI. Patient declined to be examined today. Constitutional: Alert oriented. Neurologic: No focal neurological deficits. Ambulating normally. Answers questions appropriately. No slurred speech. Psychiatric: Agitated. Skin: Appears diaphoretic [facility] Medical History Uncontrolled type 2 diabetes mellitus with hyperglycemia Tachycardia Type 2 diabetes mellitus with hyperglycemia Paroxysmal atrial fibrillation Morbid obesity Substance abuse Essential hypertension Cocaine abuse Erectile dysfunction Polysubstance abuse Paroxysmal atrial fibrillation with rapid ventricular response Lumbar degenerative disc disease Substance abuse Diabetes Depression Overactive bladder Arthritis BPH (benign prostatic hyperplasia) Asthma Seizure Morbid obesity with BMI of 40.0-44.9, adult Benign essential hypertension Insomnia Primary osteoarthritis of both knees Anxiety Family history of thyroid disorder Surgical History No history of previous surgery Family History Father ETOH abuse Mother Diabetes Arthritis of knee Hypertension Other Mental health problem Substance abuse Social History Household Members: Friend(s) Household Members Other:: rents a room in a house Housing: House Housing Other:: rents a room Alcohol intake: current Alcohol intake frequency: does not drink Comment: patient refused Patient Tobacco Use Status: Never used Tobacco e-Cigarette/Vaping Use: Never Used Second Hand Smoke Exposure: No Substance Use Type: Marijuana and Opiates Advance Directives Date on File: 02/23/22 service: No Current occupational status: unemployed and disabled Sexual orientation: Straight/Heterosexual Cognitive needs: No Hearing needs: No Vision needs: No Results Reviewed Results Reviewed: Laboratory Tests 03/13/24 03/13/24 15:41 15:49 Creatinine 1.07 Estimated GFR > 60 Hemoglobin A1c % 13.9 H AST 24 ALT 35 Triglycerides 200 H Cholesterol 150 LDL Cholesterol, Calc 69 HDL Cholesterol 41 TSH 1.14 Urine Creatinine 103.05 Urine Microalbumin 27.0 Microalb/Creat Ratio 26.2 Assessment & Plan Assessment & Plan (1) Uncontrolled type 2 diabetes mellitus with hyperglycemia: Code(s): E11.65 - Type 2 diabetes mellitus with hyperglycemia Category: Medical Plan In summary this is a 54-year-old male with uncontrolled type 2 diabetes. Treatment complicated by polysubstance abuse and noncompliance. Patient takes the bus and walks to appointments. Advised him that he made it all the way here so we should do the appointment today, but he declined further examination and diabetic management today. I am concerned about recent substance abuse today given agitation. His blood pressure is moderately elevated which is likely secondary to anxiety and agitation. Continue Ozempic 2 mg once weekly. Continue metformin extended release 2000 mg once daily. Continue Tresiba 80 units nightly. Reminded him to bring his CGM or glucometer to the next appointment. Follow up in 1 week for type 2 diabetes. Coding Level of Care Code Est Pt Level 4 (32914) Complex EM visit Add On G2211 Diagnoses Uncontrolled type 2 diabetes mellitus with hyperglycemia E11.65
[2024-06-13 14:15] VITALS: BP 152/84; PULSE 88; O2SAT 98; BMI 44.9
[2024-06-13 14:24] LABS: Glucose, Whole Blood 191 mg/dL (60-115)
--- OUTSIDE RECORDS SUMMARY | 2024-06-13 15:48 | XMS_ITS | Clinical Summary ---
Author Organization [facility] ity Address [address] [place] [address] Care Team Providers Care Copy Writer Name Role Phone Unavailable Primary Care Provider [...]
--- OUTSIDE RECORDS SUMMARY | 2024-06-13 15:48 | XMS_ITS | Clinical Summary ---
Author Organization [facility] Address [address] [place] [address] Care Team Providers Care Explosive Ordnance Disposal Specialist Name Role Phone Unavailable Primary Care Provider [...]
--- OUTSIDE RECORDS SUMMARY | 2024-06-13 15:48 | XMS_ITS | Encounter Summary ---
Author Organization [employer] Address [address] [place] [address] Care Team Providers Care Supervisor Landscape Name Role Phone Unavailable Primary Care Provider Unavailabl e Reason for Visit * Reason Onset Date Comments medication 07/12/2022 Appointment 07/12/2022 Encounter Details Date Type Department Care Team ([facility] st Contact Info) Description 07/12/2022 Telephone [facility] [address] [place] [address] Storm Maciel DDS [address] [place] [address] medication; Appointment Social History Tobacco Use Types [...]
--- OUTSIDE RECORDS SUMMARY | 2024-06-13 15:48 | XMS_ITS | Clinical Summary ---
Author Organization [facility] Address [address] [place] [address] Care Team Providers Care Tooth Cutter Clutch Name Role Phone Julio Carter MD Primary Care Provider [phone]- [phone] Allergies No known active allergies Medications Medication Sig Dispensed Refills Start Date End Date Status insulin glargine, BASAGLAR KWIKPEN, 100 UNIT/ML pen injectionIndication s:Type 2 diabetes mellitus without complication, with long-term current use of insulin ([facility]) Inject 30 Units under the skin nightly. 15 mL 04/06/2020 Active metFORMIN (GLUCOPHAGE) 1000 MG tabletIndications:T ype 2 diabetes mellitus without complication, with long-term current use of insulin ([facility]) Take 1 tablet (1,000 mg total) by mouth 2 (two) times a day. 60 tablet 04/06/2020 Active Trulicity 0.75 MG/0.5ML subcutaneous injectionIndication s:Type 2 diabetes mellitus without complication, with long-term current use of insulin ([facility]) Inject 0.75 mg under the skin once a week. Every sunday 2 mL 04/06/2020 Active amLODIPine (NORVASC) 5 MG tabletIndications:T ype 2 diabetes mellitus without complication, with long-term current use of insulin ([facility]),Essential hypertension Take 1 tablet (5 mg total) by mouth daily. 30 tablet 04/06/2020 Active lisinopril (PRINIVIL,ZeSTRIL) 30 MG tabletIndications:T ype 2 diabetes mellitus without complication, with long-term current use of insulin ([facility]),Essential hypertension Take 1 tablet (30 mg total) by mouth daily. 30 tablet 04/06/2020 Active metoPROLOL TARTRATE (LOPRESSOR) 50 MG tabletIndications:P aroxysmal atrial fibrillation (HCC),Type 2 diabetes mellitus without complication, with long-term current use of insulin ([facility]),Essential hypertension Take 1 tablet (50 mg total) by mouth every 12 (twelve) hours around the clock. 60 tablet 04/06/2020 Active busPIRone (BUSPAR) 30 MG tabletIndications:S uicidal behavior without attempted self-injury,Type 2 diabetes mellitus without complication, with long-term current use of insulin ([facility]) Take 1 tablet (30 mg total) by mouth 3 (three) times a day. 90 tablet 04/06/2020 Active traMADol (ULTRAM) 50 MG tabletIndications:T ype 2 diabetes mellitus without complication, with long-term current use of insulin ([facility]) Take 1 tablet (50 mg total) by mouth 3 (three) times a day as needed for moderate pain or severe pain. For pain 15 tablet 04/06/2020 Active albuterol (PROVENTIL HFA; VENTOLIN HFA) 108 (90 Base) MCG/ACT inhalerIndications: Type 2 diabetes mellitus without complication, with long-term current use of insulin ([facility]) Inhale 2 puffs 4 times daily (every 6 hours) as needed for wheezing or shortness of breath. 1 Inhaler 04/06/2020 Active hydrOXYzine HCl (ATARAX) 25 MG tabletIndications:T ype 2 diabetes mellitus without complication, with long-term current use of insulin ([facility]) Take 1 tablet (25 mg total) by mouth 3 (three) times a day as needed for itching or anxiety. 30 tablet 04/06/2020 Active escitalopram (LEXAPRO) 20 MG tabletIndications:T ype 2 diabetes mellitus without complication, with long-term current use of insulin ([facility]) Take 1 tablet (20 mg total) by mouth daily. 30 tablet 04/06/2020 Active apixaban (ELIQUIS) 5 MG tabletIndications:P aroxysmal atrial fibrillation (HCC),Type 2 diabetes mellitus without complication, with long-term current use of insulin ([facility]) Take 1 tablet (5 mg total) by mouth every 12 (twelve) hours around the clock. 60 tablet 04/06/2020 Active ALPRAZolam (XANAX) 2 MG tabletIndications:S uicidal behavior without attempted self-injury,Type 2 diabetes mellitus without complication, with long-term current use of insulin ([facility]) Take 1 tablet (2 mg total) by mouth nightly as needed for anxiety. 5 tablet 04/06/2020 Active lidocaine (LIDODERM) 5 % patchIndications:Ty pe 2 diabetes mellitus without complication, with long-term current use of insulin ([facility]) Place 1 patch on the skin daily. Apply patch and leave on for 12 hours then remove. Patch may remain on skin for 12 hours per day. 30 patch 04/06/2020 Active diclofenac (VOLTAREN) 1 % gelIndications:Type 2 diabetes mellitus without complication, with long-term current use of insulin ([facility]) Apply 2 g topically 2 (two) times a day as needed for pain or muscle/joint pain. 100 g 04/06/2020 Active FREESTYLE LITE stripIndications:Ty pe 2 diabetes mellitus without complication, with long-term current use of insulin ([facility]) 100 test strips by Other (specify) route 3 (three) times a day before meals. Use as instructed 100 test strip 04/06/2020 Active tamsulosin (FLOMAX) 0.4 MG capsuleIndications: Type 2 diabetes mellitus without complication, with long-term current use of insulin ([facility]) Take 1 capsule (0.4 mg total) by mouth daily. 30 capsule 04/06/2020 Active B-D ULTRAFINE III SHORT PEN 31G X 8 MM MiscIndications:Typ e 2 diabetes mellitus without complication, with long-term current use of insulin ([facility]) Check blood glucose at least 3 times daily and once in the morning fasting. For diabetes mellitus ICD E 11.9 50 pen needle 04/06/2020 Active Insulin Pen Needle 31G X 8 MM MiscIndications:Typ e 2 diabetes mellitus without complication, with long-term current use of insulin ([facility]) Check blood glucose at least 3 times daily and once in the morning fasting. For diabetes mellitus ICD E 11.9 50 pen needle 04/06/2020 Active Blood Glucose Monitoring Suppl (FreeStyle Lite) DeviceIndications:T ype 2 diabetes mellitus without complication, with long-term current use of insulin ([facility]) Check blood glucose at least 3 times daily and once in the morning fasting. For diabetes mellitus ICD E 11.9 1 Device 04/06/2020 Active FREESTYLE LITE stripIndications:Ty pe 2 diabetes mellitus without complication, with long-term current use of insulin ([facility]) Check blood glucose at least 3 times daily and once in the morning fasting. For diabetes mellitus ICD E 11.9 100 test strip 04/06/2020 Active FreeStyle Lancets lancetIndications:T ype 2 diabetes mellitus without complication, with long-term current use of insulin ([facility]) Check blood glucose at least 3 times [...] Child, Parent, Adult Sibling, Grandparent) Care Teams Tooth Cutter Clutch Relationship Specialty Start Date End Date Julio Carter MD [address] [place] [address] [address] [place] [address] PCP - General Internal Medicine 04/02/20
== END 2024-06-13 14:36 | disposition home or self-care (01) ==
LOC: HO.ENCR 14:01
PROVIDERS: PCP Internal Medicine; Visit Provider Physician Assistant Medical
DX: E11.65 Type 2 diabetes mellitus with hyperglycemia (principal)

== ENCOUNTER → 2024-06-13 14:01 | Outpatient (BNVA) | payer OTHER, SELFPAY | PROVIDERS: PCP Internal Medicine; Visit Provider Physician Assistant Medical | DX: E11.65 Type 2 diabetes mellitus with hyperglycemia (principal) | CPT/HCPCS: 82947; 83036; 99212 ==

== ENCOUNTER 2024-06-20 13:01 | Outpatient (AMB) | payer OTHER, SELFPAY ==
--- NOTE | 2024-06-20 13:10 | A.OFFVIS_ITS ---
Vital Signs 06/20/24 13:15 Height 5 ft 10 in Weight 318 lb 5.56 oz BMI 45.7 BP 130/72 Blood Pressure Location Rt brachial Position Sitting Pulse 85 Pulse Source Pulse Oximeter Pulse Oximetry (%) 98 Oxygen Delivery Method Room Air Intake Visit Reasons: T2DM Intake Note: Patient present today to follow up on Type 2 Diabetes Mellitus. Last Diabetic Eye exam: Due Last Podiatry Visit: Does not see a Process Analyst Random Glucose: 235 mg/dl HgA1C: 10.3% 06/13/2024 District Wildlife Manager Required: No Accompanied by: Self / Same As Patient Allergies Penicillins [PENICILLINS] Allergy (Unknown, Verified 06/20/24 13:16) RASH HPI Comments Details: This is a 54-year-old male with a past medical history of polysubstance abuse, uncontrolled type 2 diabetes, depression, atrial flutter with RVR, PTSD presenting for diabetic management. His diabetic management has been complicated by polysubstance abuse. He is doing a lot better than last week. Hemoglobin A1c 13.9% 03/13/2024. He does not have his glucometer today. He has the Dexcom G7, but he lost the electronic components assembler. The sonny would not download to his phone today. I sent a new electronic components assembler to the pharmacy, but he is also going to make a follow up with the assistant golf coach next week to attempt the phone set up again if he is unable to get the electronic components assembler. The patient says he is using a glucometer, but he does not have with him today. He says his sugars have been in the 200s. Patient says he is taking Ozempic 2 mg weekly, Tresiba 80 units nightly and metformin ER 2000 mg daily. He was previously on Januvia, and he said he did not have side effects, and he wants to try to take it again. Patient says he was really not compliant with the in the past when it was ineffective. He has struggled with compliance. Past medications: Lantus discontinued SGLT2 not prescribed-history of balanitis Endorses polyuria, polydipsia Denies any hypoglycemic events. ROS: Constitutional: No fevers or chills. Eyes: No vision changes, blurry vision, double vision Respiratory: No shortness of breath, cough or sputum production. Cardiovascular: No chest pain, chest pressure, palpitations. Endocrine: See HPI Psychiatric: Endorses depression and anxiety. Denies SI/HI. Patient declined to be examined today. Constitutional: Alert oriented. Neck: No lymphadenopathy Cardiovascular: Regular rate and rhythm, normal S1-S2 Lungs: Clear to auscultation Neurologic: No focal neurological deficits. Ambulating normally. Answers questions appropriately. No slurred speech. Psychiatric: Calm and cooperative Skin: Warm and dry [facility] Medical History Uncontrolled type 2 diabetes mellitus with hyperglycemia Tachycardia Type 2 diabetes mellitus with hyperglycemia Paroxysmal atrial fibrillation Morbid obesity Substance abuse Essential hypertension Cocaine abuse Erectile dysfunction Polysubstance abuse Paroxysmal atrial fibrillation with rapid ventricular response Lumbar degenerative disc disease Substance abuse Diabetes Depression Overactive bladder Arthritis BPH (benign prostatic hyperplasia) Asthma Seizure Morbid obesity with BMI of 40.0-44.9, adult Benign essential hypertension Insomnia Primary osteoarthritis of both knees Anxiety Family history of thyroid disorder Surgical History No history of previous surgery Family History Father ETOH abuse Mother Diabetes Arthritis of knee Hypertension Other Mental health problem Substance abuse Social History Household Members: Friend(s) Household Members Other:: rents a room in a house Housing: House Housing Other:: rents a room Alcohol intake: current Alcohol intake frequency: does not drink Comment: patient refused Patient Tobacco Use Status: Never used Tobacco e-Cigarette/Vaping Use: Never Used Second Hand Smoke Exposure: No Substance Use Type: Marijuana and Opiates Advance Directives Date on File: 02/23/22 service: No Current occupational status: unemployed and disabled Sexual orientation: Straight/Heterosexual Cognitive needs: No Hearing needs: No Vision needs: No Physical Exam Vital Signs: Last Vital Signs Pulse 85 06/20/24 13:15 BP 130/72 06/20/24 13:15 Pulse Ox 98 06/20/24 13:15 Oxygen Delivery Method Room Air 06/20/24 13:15 BMI result Body Mass Index 45.7 Results Reviewed Results Reviewed: Laboratory Tests 03/13/24 03/13/24 15:41 15:49 Creatinine 1.07 Estimated GFR > 60 Hemoglobin A1c % 13.9 H AST 24 ALT 35 Triglycerides 200 H Cholesterol 150 LDL Cholesterol, Calc 69 HDL Cholesterol 41 TSH 1.14 Urine Creatinine 103.05 Urine Microalbumin 27.0 Microalb/Creat Ratio 26.2 Assessment & Plan Assessment & Plan (1) Uncontrolled type 2 diabetes mellitus with hyperglycemia: Code(s): E11.65 - Type 2 diabetes mellitus with hyperglycemia Category: Medical Plan In summary this is a 54-year-old male with uncontrolled type 2 diabetes. Treatment complicated by polysubstance abuse and noncompliance. Continue Ozempic 2 mg once weekly. Continue metformin extended release 2000 mg once daily. Increase Tresiba to 86 units nightly. Start Januvia 50 mg daily. He declines starting prandial insulin. Reviewed treatment of hypo and hyperglycemia. He has glucose tablets. G7 sonny would not download to the phone today. He is going to try to download it at home. He will make a follow up with the assistant golf coach in a week. I sent a new electronic components assembler to see if this will be covered by insurance. He has sensors. Reminded him to bring his CGM or glucometer to all appointments. Follow up in 3 weeks for type 2 diabetes. Medications: New blood-glucose,electronic components assembler,cont (Dexcom G7 Web Communications Specialist) As directed 1 ea 0RF sitagliptin phosphate (Januvia) 50 mg PO DAILY 90 tabs 0RF Changed From insulin degludec (Tresiba FlexTouch U-200 insulin) Replaces Lantus 70 units daily. 80 units (0.4 mL) subcut BEDTIME 9 mL 8RF To insulin degludec (Tresiba FlexTouch U-200 insulin) 86 units (0.43 mL) subcut BEDTIME 18 mL 5RF Patient Instructions: Increase Tresiba to 86 units daily. Start Januvia 50 mg daily Conitnue Ozempic 2 mg weekly Continue metformin extended release 2000 mg daily. If you experience low blood sugar, treat this by eating a chewable fruit candy like skittles or jelly beans (about 8 pieces), 4 ounces (1/2 cup) of fruit juice (not diet), 1 tablespoon of honey or 4 glucose tablets. If your blood sugar is under 50, take double the amount of one of the above. Recheck your blood sugar in 15 minutes. Coding Level of Care Code Est Pt Level 4 (03425) Complex EM visit Add On G2211 Diagnoses Uncontrolled type 2 diabetes mellitus with hyperglycemia E11.65
[2024-06-20 13:15] VITALS: BP 130/72; PULSE 85; O2SAT 98; BMI 45.7
[2024-06-20 13:25] LABS: Glucose, Whole Blood 235 mg/dL (60-115)
--- OUTSIDE RECORDS SUMMARY | 2024-06-20 13:32 | XMS_ITS | Clinical Summary ---
Author Organization [facility] Address [address] [place] [address] Care Team Providers Care Ordnance Artificer Helper Name Role Phone Julio Carter MD Primary Care Provider +1- [phone] Allergies No known active allergies Medications Medication Sig Dispensed Refills Start Date End Date Status insulin glargine, BASAGLAR KWIKPEN, 100 UNIT/ML pen injectionIndication s:Type 2 diabetes mellitus without complication, with long-term current use of insulin ([facility]) Inject 30 Units under the skin nightly. 15 mL 04/06/2020 Active metFORMIN (GLUCOPHAGE) 1000 MG tabletIndications:T ype 2 diabetes mellitus without complication, with long-term current use of insulin ([facility]) Take 1 tablet (1,000 mg total) by mouth 2 (two) times a day. 60 tablet 04/06/2020 Active Trulicity 0.75 MG/0.5ML subcutaneous injectionIndication s:Type 2 diabetes mellitus without complication, with long-term current use of insulin ([facility]) Inject 0.75 mg under the skin once a week. Every sunday 2 mL 04/06/2020 Active amLODIPine (NORVASC) 5 MG tabletIndications:T ype 2 diabetes mellitus without complication, with long-term current use of insulin ([facility]),Essential hypertension Take 1 tablet (5 mg total) by mouth daily. 30 tablet 04/06/2020 Active lisinopril (PRINIVIL,ZeSTRIL) 30 MG tabletIndications:T ype 2 diabetes mellitus without complication, with long-term current use of insulin ([facility]),Essential hypertension Take 1 tablet (30 mg total) by mouth daily. 30 tablet 04/06/2020 Active metoPROLOL TARTRATE (LOPRESSOR) 50 MG tabletIndications:P aroxysmal atrial fibrillation (HCC),Type 2 diabetes mellitus without complication, with long-term current use of insulin ([facility]),Essential hypertension Take 1 tablet (50 mg total) by mouth every 12 (twelve) hours around the clock. 60 tablet 04/06/2020 Active busPIRone (BUSPAR) 30 MG tabletIndications:S uicidal behavior without attempted self-injury,Type 2 diabetes mellitus without complication, with long-term current use of insulin ([facility]) Take 1 tablet (30 mg total) by mouth 3 (three) times a day. 90 tablet 04/06/2020 Active traMADol (ULTRAM) 50 MG tabletIndications:T ype 2 diabetes mellitus without complication, with long-term current use of insulin ([facility]) Take 1 tablet (50 mg total) by mouth 3 (three) times a day as needed for moderate pain or severe pain. For pain 15 tablet 04/06/2020 Active albuterol (PROVENTIL HFA; VENTOLIN HFA) 108 (90 Base) MCG/ACT inhalerIndications: Type 2 diabetes mellitus without complication, with long-term current use of insulin ([facility]) Inhale 2 puffs 4 times daily (every 6 hours) as needed for wheezing or shortness of breath. 1 Inhaler 04/06/2020 Active hydrOXYzine HCl (ATARAX) 25 MG tabletIndications:T ype 2 diabetes mellitus without complication, with long-term current use of insulin ([facility]) Take 1 tablet (25 mg total) by mouth 3 (three) times a day as needed for itching or anxiety. 30 tablet 04/06/2020 Active escitalopram (LEXAPRO) 20 MG tabletIndications:T ype 2 diabetes mellitus without complication, with long-term current use of insulin ([facility]) Take 1 tablet (20 mg total) by mouth daily. 30 tablet 04/06/2020 Active apixaban (ELIQUIS) 5 MG tabletIndications:P aroxysmal atrial fibrillation (HCC),Type 2 diabetes mellitus without complication, with long-term current use of insulin ([facility]) Take 1 tablet (5 mg total) by mouth every 12 (twelve) hours around the clock. 60 tablet 04/06/2020 Active ALPRAZolam (XANAX) 2 MG tabletIndications:S uicidal behavior without attempted self-injury,Type 2 diabetes mellitus without complication, with long-term current use of insulin ([facility]) Take 1 tablet (2 mg total) by mouth nightly as needed for anxiety. 5 tablet 04/06/2020 Active lidocaine (LIDODERM) 5 % patchIndications:Ty pe 2 diabetes mellitus without complication, with long-term current use of insulin ([facility]) Place 1 patch on the skin daily. Apply patch and leave on for 12 hours then remove. Patch may remain on skin for 12 hours per day. 30 patch 04/06/2020 Active diclofenac (VOLTAREN) 1 % gelIndications:Type 2 diabetes mellitus without complication, with long-term current use of insulin ([facility]) Apply 2 g topically 2 (two) times a day as needed for pain or muscle/joint pain. 100 g 04/06/2020 Active FREESTYLE LITE stripIndications:Ty pe 2 diabetes mellitus without complication, with long-term current use of insulin ([facility]) 100 test strips by Other (specify) route 3 (three) times a day before meals. Use as instructed 100 test strip 04/06/2020 Active tamsulosin (FLOMAX) 0.4 MG capsuleIndications: Type 2 diabetes mellitus without complication, with long-term current use of insulin ([facility]) Take 1 capsule (0.4 mg total) by mouth daily. 30 capsule 04/06/2020 Active B-D ULTRAFINE III SHORT PEN 31G X 8 MM MiscIndications:Typ e 2 diabetes mellitus without complication, with long-term current use of insulin ([facility]) Check blood glucose at least 3 times daily and once in the morning fasting. For diabetes mellitus ICD E 11.9 50 pen needle 04/06/2020 Active Insulin Pen Needle 31G X 8 MM MiscIndications:Typ e 2 diabetes mellitus without complication, with long-term current use of insulin ([facility]) Check blood glucose at least 3 times daily and once in the morning fasting. For diabetes mellitus ICD E 11.9 50 pen needle 04/06/2020 Active Blood Glucose Monitoring Suppl (FreeStyle Lite) DeviceIndications:T ype 2 diabetes mellitus without complication, with long-term current use of insulin ([facility]) Check blood glucose at least 3 times daily and once in the morning fasting. For diabetes mellitus ICD E 11.9 1 Device 04/06/2020 Active FREESTYLE LITE stripIndications:Ty pe 2 diabetes mellitus without complication, with long-term current use of insulin ([facility]) Check blood glucose at least 3 times daily and once in the morning fasting. For diabetes mellitus ICD E 11.9 100 test strip 04/06/2020 Active FreeStyle Lancets lancetIndications:T ype 2 diabetes mellitus without complication, with long-term current use of insulin ([facility]) Check blood glucose at least 3 [...] Child, Parent, Adult Sibling, Grandparent) Care Teams Ordnance Artificer Helper Relationship Specialty Start Date End Date Julio Carter MD [address] [place] [address] [address] [place] [address] PCP - General Internal Medicine 04/02/20
--- OUTSIDE RECORDS SUMMARY | 2024-06-20 13:32 | XMS_ITS | Clinical Summary ---
Author Organization [facility] Address [address] [place] [address] Care Team Providers Care Entomology Teacher Name Role Phone Unavailable Primary Care Provider [...] - 2023-2 5 season) 2023 Influenza Vaccine (Season Ended) 2024 HIB Vaccines Aged Out No longer eligi [...] age to complete this topic Meningococcal B Vaccine Aged Out No l onger eligible based on patient's age to complete [...]
== END 2024-06-20 13:46 | disposition home or self-care (01) ==
LOC: HO.ENCR 13:02
PROVIDERS: PCP Internal Medicine; Visit Provider Physician Assistant Medical
DX: E11.65 Type 2 diabetes mellitus with hyperglycemia (principal)

== ENCOUNTER → 2024-06-20 13:01 | Outpatient (BNVA) | payer OTHER, SELFPAY | PROVIDERS: PCP Internal Medicine; Visit Provider Physician Assistant Medical | DX: E11.65 Type 2 diabetes mellitus with hyperglycemia (principal); Z79.4 Long term (current) use of insulin; Z51.81 Encounter for therapeutic drug level monitoring | CPT/HCPCS: 82947; 99212 ==

== ENCOUNTER 2024-06-25 17:30 | Emergency (ER) | payer OTHER, SELFPAY ==
--- NOTE | ~2024-06-25 | CT_ITS ---
CLINICAL HISTORY: preseptal cellulitis right eye CT maxillofacial with contrast Comparison: None Findings: Right periorbital soft tissue swelling. No intraconal or extraconal fat stranding. Intact globes. The appropriately located lenses. Normal optic nerves and extraocular muscles No acute fracture or dislocation. No acute intracranial findings. Trace mucosal thickening at the frontoethmoidal outflow tracts and in the right maxillary sinus without fluid or foamy secretions. There are few right mastoid air cells which are opacified which could be secondary to an effusion. Mastoiditis is considered less likely. Otherwise clear paranasal sinuses and mastoid air cells. Clear middle ear cavities. Unremarkable soft tissues. Impression: Right preseptal cellulitis. No orbital cellulitis. This document has been electronically signed by: Alis Salazar MD on 06/25/2024 20:44:09
[2024-06-25 17:47] VITALS: BP 147/74; PULSE 85; RESP 18; TEMP 36.3; O2SAT 96; BMI 44.9
--- NOTE | 2024-06-25 17:48 | ED.EYEPROB ---
HPI - Eye Problem General Chief complaint: Eye Problems Stated complaint: Rash on R eye Time Seen by Provider: 06/25/24 18:13 Source: patient Limitations: no limitations History of Present Illness ED Provider: Renetta Martins PA-C HPI Narrative: 54-year-old male with a history of diabetes, hypertension, AFib on apixaban, morbid obesity, substance abuse, anxiety, depression who presents with right eye pain and swelling x3 days. Patient states he developed a tender lesion along the lower lid margin. He attempted to squeeze the lesion. He subsequently developed swelling of the lower lid, the has expanded over the upper cheek now with overlying erythema and ocular discharge. Denies fever. Denies pain with the extraocular eye movements. Related Data Home Medications ?Medication ?Instructions ?Recorded ?Confirmed buspirone 30 mg tablet 30 mg PO BID 06/12/23 06/10/24 escitalopram oxalate 20 mg tablet 20 mg PO DAILY 06/28/23 06/10/24 blood sugar diagnostic (FreeStyle #10 ea 02/15/24 06/10/24 Lite Strips) Previous Rx's ?Medication ?Instructions ?Recorded blood-glucose,repairer pump,cont #1 ea 08/27/23 (Dexcom G7 Veneer Glue Spreader) pen needle, diabetic 31 gauge x #100 ea 09/18/2305/25 (BD Ultra-Fine Mini Pen Needle) ROLLATOR #1 ea 12/11/23 sodium chloride 0.65 % nasal spray 2 spray intranasal QID PRN dry 12/11/23 aerosol (Saline Nasal) nasal passages #44 mL diltiazem HCl 240 mg 240 mg PO DAILY #30 caps 01/23/24 capsule,extended release 24 hr (Cardizem CD) amiodarone 200 mg tablet 400 mg (2 x 200 mg) PO BID #120 02/21/24 tabs methadone 10 mg/mL oral 20 mg (2 mL) PO DAILY@0800 #1 mL 02/21/24 concentrate (Methadose) metoprolol tartrate 25 mg tablet 25 mg PO BID #120 tabs 02/21/24 semaglutide 2 mg/dose (8 mg/3 mL) 2 mg (0.75 mL) subcut QWEEK #3 mL 02/29/24 subcutaneous pen injector (Ozempic) blood-glucose meter (FreeStyle #1 ea 03/25/24 Lite Meter kit) Ventolin HFA 90 mcg/actuation 2 puff inhalation Q4-6H PRN 03/31/24 aerosol inhaler (albuterol sulfate) wheezing and/or shortness of breath #18 grams apixaban 5 mg tablet (Eliquis) 5 mg PO BID 30 days #60 tabs 04/09/24 metformin 500 mg tablet,extended 2,000 mg (4 x 500 mg) PO DAILY 04/15/24 release 24 hr #360 tabs blood-glucose sensor (Dexcom G7 #3 ea 04/16/24 Sensor device) clotrimazole-betamethasone 1 1 appl topical BID PRN balanitis 06/06/24 %-0.05 % topical cream #45 grams lidocaine 5 % topical patch 2 patch topical DAILY PRN Pain 30 06/06/24 days #60 ea tramadol 50 mg tablet 50 mg PO TID PRN pain 30 days #90 06/13/24 tabs zolpidem 10 mg tablet 10 mg PO BEDTIME PRN insomnia #30 06/13/24 tabs blood-glucose,repairer pump,cont #1 ea 06/20/24 (Dexcom G7 Veneer Glue Spreader) insulin degludec 200 unit/mL (3 86 unit (0.43 mL) subcut BEDTIME 06/20/24 mL) subcutaneous pen (Tresiba #18 mL FlexTouch U-200 insulin) sitagliptin phosphate 50 mg tablet 50 mg PO DAILY #90 tabs 06/20/24 (Januvia) ciprofloxacin HCl 0.3 % eye See Rx Instructions ophthalmic 06/25/24 ointment (eye) .COMPLEX #3.5 grams clindamycin HCl 150 mg capsule 450 mg (3 x 150 mg) PO TID #90 caps 06/25/24 Allergies Allergy/AdvReac Type Severity Reaction Status Date / Time Penicillins [PENICILLINS] Allergy Unknown RASH Verified 06/25/24 17:47 Review of Systems Review of Systems: Yes all other systems are reviewed and are negative Constitutional: Constitutional: Denies fatigue and Denies fever(s) Eyes: Eyes: Denies change in vision and Reports eye pain Cardiovascular: Cardiovascular: Denies chest pain and Denies dyspnea Respiratory: Respiratory: Denies cough and Denies dyspnea Gastrointestinal: Gastrointestinal: Denies nausea and Denies vomiting Endocrine: Endocrine: Denies fatigue PMFSH Past Medical History Attestation statement: The following information was validated with the patient. Medical History Uncontrolled type 2 diabetes mellitus with hyperglycemia Tachycardia Type 2 diabetes mellitus with hyperglycemia Paroxysmal atrial fibrillation Morbid obesity Substance abuse Essential hypertension Cocaine abuse Erectile dysfunction Polysubstance abuse Paroxysmal atrial fibrillation with rapid ventricular response Lumbar degenerative disc disease Substance abuse Diabetes Depression Overactive bladder Arthritis BPH (benign prostatic hyperplasia) Asthma Seizure Morbid obesity with BMI of 40.0-44.9, adult Benign essential hypertension Insomnia Primary osteoarthritis of both knees Anxiety Family history of thyroid disorder Surgical History No history of previous surgery Family History Family History Father ETOH abuse Mother Diabetes Arthritis of knee Hypertension Other Mental health problem Substance abuse Social History Social History Household Members: Friend(s) Household Members Other:: rents a room in a house Housing: House Housing Other:: rents a room Alcohol intake: current Alcohol intake frequency: does not drink Comment: patient refused Patient Tobacco Use Status: Never used Tobacco e-Cigarette/Vaping Use: Never Used Second Hand Smoke Exposure: No Substance Use Type: Marijuana and Opiates Advance Directives: Yes Advance Directives on File: Yes Advance Directives Date on File: 02/23/22 service: No Current occupational status: unemployed and disabled Sexual orientation: Straight/Heterosexual Cognitive needs: No Hearing needs: No Vision needs: No Physical Exam Vital Signs: Vital Signs: Last Vital Signs Temp 97.3 F 06/25/24 17:47 Pulse 84 06/25/24 18:24 Resp 18 06/25/24 18:24 BP 151/75 H 06/25/24 18:24 Pulse Ox 96 06/25/24 18:24 O2 Del Method Room Air 06/25/24 18:24 BMI result Body Mass Index 44.9 Const: Other: Alert Orientation/consciousness: patient oriented x3 Eyes: Other: Presumed hordeolum noted along inferior right lid margin adjacent to the medial canthus, the lower lid is erythematous and edematous, the swelling and erythema spans over upper cheek, no pain of the eye with a extraocular eye movements and they are intact Resp: Effort & Inspection: normal respiratory effort Cardio: Other: Normal peripheral perfusion Skin: Other: Warm dry no rash Neuro: General: patient oriented x3, gait normal, no focal motor deficits and CN's II-XI intact bilaterally Psych: Other: Cooperative Course Course Course Narrative: This is an RME: Additional HPI, ROS, PE not included below will be deferred to primary provider. RME assessment and note performed by: Unique Hernández PA-C This is a 54-year-old male who presents to the ER with complaints of right eye irritation. Pt had a pimple on his lower lid and tried to pop it. Then got marijuana otf in his right eye. Reports some blurred vision. Plan: Needs visual acuity test, as well as fluorescein stain. Medications Administered Discontinued Medications Generic Name Dose Route Start Last Admin Trade Name Freq PRN Reason Stop Dose Admin Fluorescein Sodium 1 strip 06/25/24 17:59 06/25/24 18:08 Fluorescein Sodium Strip EYE-LEFT 06/25/24 18:00 1 strip ONCE ONE Administration Iohexol 100 ml 06/25/24 20:02 06/25/24 20:02 Iohexol 350 Mg/Ml 100 Ml Infus..Btl IV 06/25/24 20:03 85 ml ONCE ONE Administration Tetracaine HCl 1 drop 06/25/24 17:59 06/25/24 18:08 Tetracaine Hcl/Pf 0.5% Oph Alysia 4 Ml Drops EYE-LEFT 06/25/24 18:00 1 drop ONCE ONE Administration Medical Decision Making Medical Decision Making [facility] Narrative: 54-year-old male with a history of diabetes, hypertension, AFib on apixaban, morbid obesity, substance abuse, anxiety, depression who presents with right eye pain and swelling x3 days. Patient states he developed a tender lesion along the lower lid margin. He attempted to squeeze the lesion. He subsequently developed swelling of the lower lid, the has expanded over the upper cheek now with overlying erythema and ocular discharge. Denies fever. Denies pain with the extraocular eye movements. Problem: Diabetes, substance abuse History: Per patient I have considered the following differential diagnoses: She lays down, hordeolum, blepharitis, preseptal cellulitis, Plan: We will be scanning of the patient, my concern of course is for preseptal cellulitis, screening labs are in process, we will add blood cultures if need be. I have independently reviewed the following tests: Labs: No leukocytosis, not anemic, no electrolyte abnormality noted CT max face:indings: Right periorbital soft tissue swelling. No intraconal or extraconal fat stranding. Intact globes. The appropriately located lenses. Normal optic nerves and extraocular muscles No acute fracture or dislocation. No acute intracranial findings. Trace mucosal thickening at the frontoethmoidal outflow tracts and in the right maxillary sinus without fluid or foamy secretions. There are few right mastoid air cells which are opacified which could be secondary to an effusion. Mastoiditis is considered less likely. Otherwise clear paranasal sinuses and mastoid air cells. Clear middle ear cavities. Unremarkable soft tissues. Impression: Right preseptal cellulitis. No orbital cellulitis. Lab Data 06/25/24 19:04 06/25/24 19:04 Labs: Lab Results 06/25/24 Range/Units 19:04 WBC 8.1 (4.8-10.8) X10*3/uL RBC 4.96 (4.60-5.80) X10*6/uL Hgb 14.7 (14.0-18.0) g/dl Hct 43.6 (42.0-52.0) % MCV 87.9 (80.0-98.0) fL MCH 29.6 (27.0-33.0) pg MCHC 33.7 (31.0-36.0) g/dl RDW 12.7 (11.0-16.0) % Plt Count 253 (160-400) X10*3/uL MPV 9.8 (9.4-12.4) fL Immature Gran % (Auto) 0.4 (0.0-0.4) % Neut % (Auto) 66.4 (45-73) % Lymph % (Auto) 25.1 (20-40) % Casey % (Auto) 6.2 (2-11) % Eos % (Auto) 1.5 (0-4) % Baso % (Auto) 0.4 (0-2) % Lymph # (Auto) 2.0 (1.2-4.9) X10*3/uL Casey # (Auto) 0.5 (0.1-1.2) X10*3/uL Eos # (Auto) 0.1 (0.0-0.4) X10*3/uL Baso # (Auto) 0.0 (0.0-0.2) X10*3/uL Abs Immat Gran (auto) 0.03 (0.00-0.03) X10*3/uL Absolute Neuts (auto) 5.4 (2.0-8.3) x10*3/uL Absolute Nucleated RBC 0.000 (0.0-0.012) X10*3/uL Nucleated RBC % (auto) 0.0 (0.0-0.2) /100WBC Sodium 138 (135-145) mmol/L Potassium 4.2 (3.3-5.1) mmol/L Chloride 106 (96-108) mmol/L Carbon Dioxide 26 (22-29) mmol/L Anion Gap 10 L (12-20) BUN 16 (9-16) mg/dL Creatinine 1.00 (0.5-1.4) mg/dL Estim Creat Clear Calc 126.6 Estimated GFR > 60 Random Glucose 262 H (60-115) mg/dL Calcium 9.1 (8.4-10.2) mg/dL Magnesium 1.9 (1.6-2.6) mg/dL Total Bilirubin 0.2 (0.0-1.0) mg/dL AST 24 (5-37) U/L ALT 28 (0-40) U/L Alkaline Phosphatase 99 (39-117) U/L Total Protein 7.3 (6.5-8.0) g/dL Albumin 4.1 (3.5-5.0) g/dL Discharge Plan Discharge Clinical Impression: Hordeolum externum of right lower eyelid, Preseptal cellulitis of right eye Patient Disposition: Home, Self-Care Instructions: Stye (ED), Periorbital Cellulitis in Adults (ED) Additional Instructions: You were found to have cellulitis that is surrounding the tissues of your eye. See home care instructions. Leave the stye alone, do not try to pick at it or squeeze it. That is what caused your cellulitis. You can apply warm compresses to the site. Use the ciprofloxacin eye drops as directed. Take the clindamycin as directed. You need to use a probiotic with the antibiotic, to help prevent diarrhea. Be sure to follow up with your primary care provider in 1 week. Prescriptions: New ciprofloxacin HCl 0.3 % ointment See Rx Instructions .ROUTE .COMPLEX Qty: 3.5 0RF Rx Instructions: apply 1/2 inch ribbon into affected eye(s) 3 times daily for 2 days; then twice daily for 5 days clindamycin HCl 150 mg capsule 450 mg PO TID Qty: 90 0RF No Action (DME) Dexcom G7 Veneer Glue Spreader Misc See Rx Instructions .Route Qty: 1 0RF Rx Instructions: As directed (DME) pen needle, diabetic [BD Ultra-Fine Mini Pen Needle] 31 gauge x 3/16 needle See Rx Instructions .ROUTE .COMPLEX Qty: 100 3RF Dose Instruction: USE DIRECTED ONCE DAILY Rx Instructions: USE DIRECTED ONCE DAILY Eliquis 5 mg tablet 5 mg PO BID 30 Days Qty: 60 2RF Rx Instructions: x30 dats (DME) Dexcom G7 Sensor Device See Rx Instructions .Route Qty: 3 4RF Rx Instructions: As directed change every 10 days lidocaine 5 % adhesive patch,medicated 2 patch topical DAILY PRN (Reason: Pain) 30 Days Qty: 60 0RF tramadol 50 mg tablet 50 mg PO TID PRN (Reason: pain) 30 Days Qty: 90 0RF zolpidem 10 mg tablet 10 mg PO BEDTIME PRN (Reason: insomnia) Qty: 30 0RF buspirone 30 mg tablet 30 mg PO BID diltiazem HCl [Cardizem CD] 240 mg capsule,extended release 24hr 240 mg PO DAILY Qty: 30 0RF amiodarone 200 mg Tablet 400 mg PO BID Qty: 120 0RF Rx Instructions: take amiodarone 400 mg(2 tabs) po bid ( until 03/04/24) ,then switch to amiodarone 200mg (1 tab)daily on 03/05/24 . metoprolol tartrate 25 mg tablet 25 mg PO BID Qty: 120 0RF methadone [Methadose] 10 mg/mL Concentrate 20 mg PO DAILY@0800 Qty: 1 0RF Rx Instructions: Partial Fill upon patient request. escitalopram oxalate 20 mg tablet 20 mg PO DAILY clotrimazole-betamethasone 1-0.05 % cream 1 appl topical BID PRN (Reason: balanitis) Qty: 45 3RF Rx Instructions: apply to affected area bid for 7 days then bid (DME) ROLLATOR See Rx Instructions .Route .MEDSUPPLY Qty: 1 0RF Rx Instructions: As directed Saline Nasal 0.65 % aerosol,spray 2 spray intranasal QID PRN (Reason: dry nasal passages) Qty: 44 5RF (DME) blood-glucose meter [FreeStyle Lite Meter] Kit See Rx Instructions .ROUTE .MEDSUPPLY Qty: 1 0RF Rx Instructions: Use as directed to check glucose twice daily. metformin 500 mg tablet extended release 24 hr 2,000 mg PO DAILY Qty: 360 1RF Rx Instructions: Replaces Metformin 1000 mg twice daily. (DME) Dexcom G7 Veneer Glue Spreader Misc See Rx Instructions .ROUTE .MEDSUPPLY Qty: 1 0RF Rx Instructions: As directed insulin degludec [Tresiba FlexTouch U-200] 200 unit/mL (3 mL) insulin pen 86 unit subcut BEDTIME Qty: 18 5RF Januvia 50 mg tablet 50 mg PO DAILY Qty: 90 0RF (DME) FreeStyle Lite Strips Strip See Rx Instructions .ROUTE TID Qty: 10 Rx Instructions: As directed Ozempic 2 mg/dose (8 mg/3 mL) pen injector 2 mg subcut QWEEK Qty: 3 5RF albuterol sulfate [Ventolin HFA] 90 mcg/actuation HFA aerosol inhaler 2 puff inhalation Q4-6H PRN (Reason: wheezing and/or shortness of breath) Qty: 18 5RF Print Language: Guinean
[2024-06-25] MEDS: Tetracaine HCl/PF 0.5% Oph Sol 4 ML DROPS 1 DROP EYE-LEFT (18:08)
[2024-06-25] MEDS: Fluorescein Sodium STRIP 1 STRIP EYE-LEFT (18:08)
[2024-06-25 18:24] VITALS: BP 151/75; PULSE 84; RESP 18; O2SAT 96
--- OUTSIDE RECORDS SUMMARY | 2024-06-25 18:30 | XMS_ITS | Encounter Summary ---
Author Organization [employer] Address [address] [place] [address] Care Team Providers Care Antique Repairer Name Role Phone Unavailable Primary Care Provider Unavailabl e Reason for Visit * Reason Onset Date Comments medication 07/12/2022 Appointment 07/12/2022 Encounter Details Date Type Department Care Team ([facility] st Contact Info) Description 07/12/2022 Telephone [facility] [address] [place] [address] Stomr Maciel DDS [address] [place] [address] medication; Appointment Social History Tobacco Use Types [...]
--- OUTSIDE RECORDS SUMMARY | 2024-06-25 18:30 | XMS_ITS | Clinical Summary ---
Author Organization [facility] ity Address [address] [place] [address] Care Team Providers Care Liquid Fertilizer Servicer Name Role Phone Unavailable Primary Care Provider [...]
--- OUTSIDE RECORDS SUMMARY | 2024-06-25 18:30 | XMS_ITS | Clinical Summary ---
Author Organization [facility] Address [address] [place] [id number] Care Team Providers Care Psych Specialist Name Role Phone Julio Carter MD Primary Care Provider [phone] Allergies No known active allergies Medications insulin glargine, BASAGLAR KWIKPEN, 100 UNIT/ML pen injectionIndicati ons:Type 2 diabetes mellitus without complication, with long-term current use of insulin ([facility]) Inject 30 Units under the skin nightly. 15 mL 1 Active metFORMIN (GLUCOPHAGE) 1000 MG tabletIndications :Type 2 diabetes mellitus without complication, with long-term current use of insulin (HCC) Take 1 tablet (1,000 mg total) by mouth 2 (two) times a day. 60 tablet 1 Active Trulicity 0.75 MG/0.5ML subcutaneous injectionIndicati ons:Type 2 diabetes mellitus without complication, with long-term current use of insulin ([facility]) Inject 0.75 mg under the skin once a week. Every sunday 2 mL 1 Active amLODIPine (NORVASC) 5 MG tabletIndications :Type 2 diabetes mellitus without complication, with long-term current use of insulin ([facility]),Essential hypertension Take 1 tablet (5 mg total) by mouth daily. 30 tablet 1 Active lisinopril (PRINIVIL,ZeSTRIL ) 30 MG tabletIndications :Type 2 diabetes mellitus without complication, with long-term current use of insulin ([facility]),Essential hypertension Take 1 tablet (30 mg total) by mouth daily. 30 tablet 1 Active metoPROLOL TARTRATE (LOPRESSOR) 50 MG tabletIndications :Paroxysmal atrial fibrillation (HCC),Type 2 diabetes mellitus without complication, with long-term current use of insulin ([facility]),Essential hypertension Take 1 tablet (50 mg total) by mouth every 12 (twelve) hours around the clock. 60 tablet 1 Active busPIRone (BUSPAR) 30 MG tabletIndications :Suicidal behavior without attempted self-injury,Type 2 diabetes mellitus without complication, with long-term current use of insulin ([facility]) Take 1 tablet (30 mg total) by mouth 3 (three) times a day. 90 tablet 1 Active traMADol (ULTRAM) 50 MG tabletIndications :Type 2 diabetes mellitus without complication, with long-term current use of insulin ([facility]) Take 1 tablet (50 mg total) by mouth 3 (three) times a day as needed for moderate pain or severe pain. For pain 15 tablet 1 Active albuterol (PROVENTIL HFA; VENTOLIN HFA) 108 (90 Base) MCG/ACT inhalerIndication s:Type 2 diabetes mellitus without complication, with long-term current use of insulin ([facility]) Inhale 2 puffs 4 times daily (every 6 hours) as needed for wheezing or shortness of breath. 1 Inhaler 1 Active hydrOXYzine HCl (ATARAX) 25 MG tabletIndications :Type 2 diabetes mellitus without complication, with long-term current use of insulin ([facility]) Take 1 tablet (25 mg total) by mouth 3 (three) times a day as needed for itching or anxiety. 30 tablet 1 Active escitalopram (LEXAPRO) 20 MG tabletIndications :Type 2 diabetes mellitus without complication, with long-term current use of insulin ([facility]) Take 1 tablet (20 mg total) by mouth daily. 30 tablet 1 Active apixaban (ELIQUIS) 5 MG tabletIndications :Paroxysmal atrial fibrillation (HCC),Type 2 diabetes mellitus without complication, with long-term current use of insulin ([facility]) Take 1 tablet (5 mg total) by mouth every 12 (twelve) hours around the clock. 60 tablet 1 Active ALPRAZolam (XANAX) 2 MG tabletIndications :Suicidal behavior without attempted self-injury,Type 2 diabetes mellitus without complication, with long-term current use of insulin ([facility]) Take 1 tablet (2 mg total) by mouth nightly as needed for anxiety. 5 tablet 1 Active lidocaine (LIDODERM) 5 % patchIndications: Type 2 diabetes mellitus without complication, with long-term current use of insulin ([facility]) Place 1 patch on the skin daily. Apply patch and leave on for 12 hours then remove. Patch may remain on skin for 12 hours per day. 30 patch 1 Active diclofenac (VOLTAREN) 1 % gelIndications:Ty pe 2 diabetes mellitus without complication, with long-term current use of insulin ([facility]) Apply 2 g topically 2 (two) times a day as needed for pain or muscle/joint pain. 100 g 1 Active FREESTYLE LITE stripIndications: Type 2 diabetes mellitus without complication, with long-term current use of insulin ([facility]) 100 test strips by Other (specify) route 3 (three) times a day before meals. Use as instructed 100 test strip 1 Active tamsulosin (FLOMAX) 0.4 MG capsuleIndication s:Type 2 diabetes mellitus without complication, with long-term current use of insulin ([facility]) Take 1 capsule (0.4 mg total) by mouth daily. 30 capsule 1 Active B-D ULTRAFINE III SHORT PEN 31G X 8 MM MiscIndications:T ype 2 diabetes mellitus without complication, with long-term current use of insulin ([facility]) Check blood glucose at least 3 times daily and once in the morning fasting. For diabetes mellitus ICD E 11.9 50 pen needle 1 Active Insulin Pen Needle 31G X 8 MM MiscIndications:T ype 2 diabetes mellitus without complication, with long-term current use of insulin ([facility]) Check blood glucose at least 3 times daily and once in the morning fasting. For diabetes mellitus ICD E 11.9 50 pen needle 1 Active Blood Glucose Monitoring Suppl (FreeStyle Lite) DeviceIndications :Type 2 diabetes mellitus without complication, with long-term current use of insulin ([facility]) Check blood glucose at least 3 times daily and once in the morning fasting. For diabetes mellitus ICD E 11.9 1 Device 1 Active FREESTYLE LITE stripIndications: Type 2 diabetes mellitus without complication, with long-term current use of insulin ([facility]) Check blood glucose at least 3 times daily and once in the morning fasting. For diabetes mellitus ICD E 11.9 100 test strip 1 Active FreeStyle Lancets lancetIndications :Type 2 diabetes mellitus without complication, with long-term current use of insulin ([facility]) Check blood glucose at least 3 times daily and once in the morning fasting. For diabetes mellitus ICD E 11.9 100 lancet 1 Active QUEtiapine (SEROquel) 50 MG tabletIndications :Suicidal behavior without attempted self-injury,Depre ssion, unspecified depression type Take 1 tablet (50 mg total) by mouth nightly. 30 tablet 1 Active Active Problems Problem Noted Date Diagnosed [...] at Not on file Legal Sex Male 3:09 PM EST Gender Identity Not on file Sexual [...] 6:28 AM EST 04/07/2020 7:13 AM EST us Jc Ayers MD LAB BLOOD ORDERABLES Final Resul t HOSPITAL LAB from Last 3 Months or Most Recently Relevant to Health Maintenance Insurance MEDICAID OUT OF STATE [facility] Advance Directives * Full Code (Latest Code Status on File) Date Activated Date Inactivated Comments 04/02/2020 7:54 PM Healthcare Agents on File Name Relationship Healthcare Agent Relationshi p Communication Fang Shaan Parent 4. Next of Kin ( Spouse, Adult Child, Parent, Adult Sibling, Grandparent) Care Teams Psych Specialist Relationship Specialty Start Date End Date Julio Carter MD [address] [place] [address] [address] [place] [address] PCP - General Internal Medicine 04/02/20
--- OUTSIDE RECORDS SUMMARY | 2024-06-25 18:30 | XMS_ITS | Clinical Summary ---
Author Organization [facility] Address [address] [place] [address] Care Team Providers Care Executive Vice President And Chief Financial Officer Name Role Phone Unavailable Primary Care [...]
[2024-06-25 19:11] LABS: MANUAL DIFF FLAG NO
[2024-06-25 19:14] LABS: Basophils Percent Auto 0.4 % (0-2); Eosinophils Absolute Auto 0.1 X10*3/uL (0.0-0.4); Eosinophils Percent Auto 1.5 % (0-4); Hematocrit 43.6 % (42.0-52.0); Hemoglobin 14.7 g/dl (14.0-18.0); Imm Gran Abs Auto 0.03 X10*3/uL (0.00-0.03); Imm Gran Pct Auto 0.4 % (0.0-0.4); Lymphocytes Percent Auto 25.1 % (20-40); Mean Corpuscular HGB Conc 33.7 g/dl (31.0-36.0); Mean Corpuscular Hemoglobin 29.6 pg (27.0-33.0); Mean Corpuscular Volume 87.9 fL (80.0-98.0); Mean Platelet Volume 9.8 fL (9.4-12.4); Monocytes Absolute Auto 0.5 X10*3/uL (0.1-1.2); Monocytes Percent Auto 6.2 % (2-11); Neutrophils Absolute Auto 5.4 x10*3/uL (2.0-8.3); Neutrophils Percent Auto 66.4 % (45-73); Platelet Count 253 X10*3/uL (160-400); Red Blood Count 4.96 X10*6/uL (4.60-5.80); Red Cell Distribution Width 12.7 % (11.0-16.0); White Blood Count 8.1 X10*3/uL (4.8-10.8)
[2024-06-25 19:29] LABS: Alanine Aminotransferase 28 U/L (0-40); Albumin Level 4.1 g/dL (3.5-5.0); Alkaline Phosphatase 99 U/L (39-117); Anion Gap 10 (12-20); Aspartate Amino Transferase 24 U/L (5-37); Bilirubin Total 0.2 mg/dL (0.0-1.0); Blood Urea Nitrogen 16 mg/dL (9-16); Calcium 9.1 mg/dL (8.4-10.2); Carbon Dioxide 26 mmol/L (22-29); Chloride 106 mmol/L (96-108); Creatinine Clr Calc Pharmacy 126.6; Estimated Glomerular Filt Rate > 60; Glucose Random 262 mg/dL (60-115); Magnesium 1.9 mg/dL (1.6-2.6); Potassium 4.2 mmol/L (3.3-5.1); Sodium 138 mmol/L (135-145); Total Protein 7.3 g/dL (6.5-8.0)
[2024-06-25] MEDS: iohexoL 350 MG/ML 100 ML INFUS..BTL IV (20:02)
--- NOTE | 2024-06-25 21:28 | PC.NURSE ---
Pt a&ox4, no signs of distress. Pt ambulates with a steady gait Plan of care on going.
[2024-06-25 21:54] VITALS: BP 147/85; PULSE 73; RESP 16; TEMP 36.8; O2SAT 98
[2024-06-25] MEDS: Clindamycin HCL 150 MG CAPSULE 450 MG PO (21:54)
[2024-06-25 22:02] VITALS: BP 147/85; PULSE 73; RESP 16; TEMP 36.8; O2SAT 98
== END 2024-06-25 22:02 | disposition home or self-care (01) ==
PROVIDERS: Physician Assistant Medical; Emergency Provider Emergency Medicine; PCP Internal Medicine
DX: H00.012 Hordeolum externum right lower eyelid (principal); L03.213 Periorbital cellulitis; H57.11 Ocular pain, right eye; Z79.899 Other long term (current) drug therapy
CPT/HCPCS: 36415; 70487; 80053; 83735; 85025; 99283; 99284; Q9967

== ENCOUNTER → 2024-06-25 18:37 | Outpatient (BNV) | payer OTHER, SELFPAY | PROVIDERS: Emergency Provider Emergency Medicine; PCP Internal Medicine; Visit Provider Radiology Diagnostic Radiology | DX: L03.213 Periorbital cellulitis (principal) | CPT/HCPCS: 70487 ==

== ENCOUNTER 2024-07-02 11:20 | Outpatient (AMB) | payer OTHER, SELFPAY ==
[2024-07-02 12:33] VITALS: BP 128/62; PULSE 93; O2SAT 96; BMI 44.2
--- NOTE | 2024-07-02 12:33 | A.OFFPC_ITS ---
Vital Signs 07/02/24 12:33 Height 5 ft 11 in Weight 317 lb BMI 44.2 BP 128/62 Blood Pressure Location Lt brachial Position Sitting Pulse 93 Pulse Source Pulse Oximeter Pulse Oximetry (%) 96 Oxygen Delivery Method Room Air Intake Visit Reasons: 3 Month F/U Radio Message Router Required: No Accompanied by: Self / Same As Patient Allergies Penicillins [PENICILLINS] Allergy (Unknown, Verified 07/02/24 12:48) RASH Medication List - Last Reconciled 07/02/24 by Julio Carter MD amiodarone 400 mg (2 x 200 mg) PO BID apixaban (Eliquis) 5 mg PO BID 30 days blood sugar diagnostic (FreeStyle Lite Strips) As directed blood-glucose meter (FreeStyle Lite Meter kit) Use as directed to check glucose twice daily. blood-glucose sensor (Dexcom G7 Sensor device) As directed change every 10 days blood-glucose,public events facilities rental manager,cont (Dexcom G7 Flexible Babysitter) As directed blood-glucose,public events facilities rental manager,cont (Dexcom G7 Flexible Babysitter) As directed buspirone 30 mg PO BID ciprofloxacin HCl 0.3% apply 1/2 inch ribbon into affected eye(s) 3 times daily for 2 days; then twice daily for 5 days clindamycin HCl 450 mg (3 x 150 mg) PO TID clotrimazole-betamethasone 1-0.05 % 1 appl topical BID PRN diltiazem HCl CD (Cardizem CD) 240 mg PO DAILY escitalopram oxalate 20 mg PO DAILY insulin degludec (Tresiba FlexTouch U-200 insulin) 86 units (0.43 mL) subcut BEDTIME lidocaine 5% 2 patches topical DAILY PRN 30 days metformin ER 2,000 mg (4 x 500 mg) PO DAILY methadone (Methadose) 20 mg (2 mL) PO DAILY@0800 metoprolol tartrate 25 mg PO BID pen needle, diabetic (BD Ultra-Fine Mini Pen Needle) USE DIRECTED ONCE DAILY [ROLLATOR As directed] semaglutide (Ozempic) 2 mg (0.75 mL) subcut QWEEK sitagliptin phosphate (Januvia) 50 mg PO DAILY sodium chloride 0.65% (Saline Nasal) 2 sprays intranasal QID PRN tramadol 50 mg PO TID PRN 30 days Ventolin HFA 90 mcg/actuation (albuterol sulfate) 2 puffs inhalation Q4-6H PRN NS zolpidem 10 mg PO BEDTIME PRN Tobacco use date assessed: 07/02/24 Dental Screening Dental Screen Date: 07/02/24 Did you have a dental visit in the last 12 months?: Yes Did you have a dental problem in the last 6 months where you did not have access to dental care?: No Was dental information given to patient?: Patient has dentist HPI 3 Month F/U HPI Details Patient comes in today for his follow-up visit States that he feels okay He denies any headaches or dizziness Denies any chest pains, no increased shortness of breath No nausea/vomiting, no abdominal pain No change in bowel habits noted Needs his Sildenafil Rx refilled He had his follow-up labs done last week - to discuss his results [facility] Medical History Uncontrolled type 2 diabetes mellitus with hyperglycemia Tachycardia Type 2 diabetes mellitus with hyperglycemia Paroxysmal atrial fibrillation Morbid obesity Substance abuse Essential hypertension Cocaine abuse Erectile dysfunction Polysubstance abuse Paroxysmal atrial fibrillation with rapid ventricular response Lumbar degenerative disc disease Substance abuse Diabetes Depression Overactive bladder Arthritis BPH (benign prostatic hyperplasia) Asthma Seizure Morbid obesity with BMI of 40.0-44.9, adult Benign essential hypertension Insomnia Primary osteoarthritis of both knees Anxiety Family history of thyroid disorder Surgical History No history of previous surgery Family History Father ETOH abuse Mother Diabetes Arthritis of knee Hypertension Other Mental health problem Substance abuse Social History Household Members: Friend(s) Household Members Other:: rents a room in a house Housing: House Housing Other:: rents a room Alcohol intake: current Alcohol intake frequency: does not drink Comment: patient refused Patient Tobacco Use Status: Never used Tobacco e-Cigarette/Vaping Use: Never Used Second Hand Smoke Exposure: No Substance Use Type: Marijuana and Opiates Advance Directives Date on File: 02/23/22 service: No Current occupational status: unemployed and disabled Sexual orientation: Straight/Heterosexual Cognitive needs: No Hearing needs: No Vision needs: No Questionnaire PHQ-9 Over the last 2 weeks, how often have you been bothered by any of the following problems? 1. Little interest or pleasure in doing things: several days 2. Feeling down, depressed, or hopeless: several days 3. Trouble falling or staying asleep, or sleeping too much: several days 4. Feeling tired or having little energy: several days 5. Poor appetite or overeating: several days 6. Feeling bad about yourself - or that you are a failure or have let yourself or your family down: several days 7. Trouble concentrating on things, such as reading the newspaper or watching television: not at all 8. Moving or speaking so slowly that other people could have noticed. Or the opposite - being so fidgety or restless that you have been moving around a lot more than usual: not at all 9. Thoughts that you would be better off or of hurting yourself in some way: not at all Total score: 6 Depression Screening Interpretation: Positive Depression Screening Follow-up: Existing condition and In treatment Depression Screening Done: Yes 83784 - PHQ-9 Billing: Yes Source: Developed by Drs. Michael Mcmanus, Penelope Pope, Cornell Snyder and colleagues, with an educational natty from [employer]. Thrive Questionnaire Date Thrive assessed: 07/02/24 I am a: Patient What is your living situation today?: I have a steady place to live Within the past 12 months, did the food you bought not last and you didn't have the money to get more?: Never true Within the past 12 months, did you worry whether your food would run out before you got money to buy more?: Never true Do you have trouble paying for medicines?: No Do you have trouble getting transportation to medical appointments?: No Do you have trouble paying your heating and electricity bill?: No Do you have trouble taking care of your child, family member or friend?: No Do you have trouble with day-to-day activities such as bathing, preparing meals, shopping, managing finances, etc.?: No Are you currently unemployed and looking for a job?: No Are you interested in more education?: No Please select the resources that you would like help with: None Currently or been in a relationship where the following occur: No concerns reported THRIVE Score: 0 AUDIT C Alcohol Use Questionnaire (AUDIT-C) 1. How often do you have a drink containing alcohol?: Monthly or less 2. How many drinks containing alcohol do you have on a typical day when you are drinking?: 1 or 2 3. How often do you have six or more drinks on one occasion?: Never Total Score: 1 Score Reviewed/Action Taken: Yes TODD-7 AMB Questionnaire TODD-7 Date TODD - 7 assessed: 07/02/24 Feeling nervous, anxious, or on edge: 0 = Not at all Not being able to stop or control worryin = Not at all Worrying too much about different things: 0 = Not at all Trouble relaxin = Not at all Being so restless that it is hard to sit still: 0 = Not at all Becoming easily annoyed or irritable: 0 = Not at all Feeling afraid as if something awful might happen: 0 = Not at all Total TODD-7 score (0-4 normal; 5-9 mild; 10-14 moderate; 15-21 severe): 0 Source: Developed by Drs. Michael Mcmanus, Penelope Pope, Cornell Snyder and colleagues, with an educational natty from [employer]. Review of Systems Const Denies chills, Reports fatigue, Denies fever(s) and Denies headache(s) ENT Denies dysphagia, Denies dizziness, Denies otalgia, Denies headache(s), Denies neck pain, Denies odynophagia and Denies sore throat Card Denies chest pain, Reports pedal edema (bilateral, on and off), Reports leg edema (bilateral, on and off), Denies palpitations and Reports dyspnea on exertion (mild) Resp Denies cough, Reports dyspnea on exertion (mild) and Denies wheezing GI Denies abdominal pain, Denies constipation, Denies dysphagia, Denies heartburn, Denies diarrhea, Denies nausea, Denies odynophagia and Denies vomiting Denies difficulty urinating, Reports erectile dysfunction, Denies dysuria, Denies nocturia and Denies urinary frequency Musc Reports back pain and Denies neck pain Skin/Breast Denies rash Neuro Denies dizziness and Denies headache(s) Endo Reports fatigue and Denies palpitations Jose/Lymph Details: increasing swelling of both lower legs and feet Aller/Immun Denies wheezing Physical exam (Primary Care) Vital Signs: Last Vital Signs Pulse 93 07/02/24 12:33 BP 128/62 07/02/24 12:33 Pulse Ox 96 07/02/24 12:33 Oxygen Delivery Method Room Air 07/02/24 12:33 BMI result Body Mass Index 44.2 Tobacco/Smoking Status: Tobacco use Status Tobacco use date assessed 07/02/24 07/02/24 12:41 Patient Tobacco Use Status Never used Tobacco 07/02/24 12:41 e-Cigarette/Vaping Use Never Used 07/02/24 12:41 PHQ-9: PHQ-9 Score PHQ-9: Total score 6 07/02/24 12:48 Depression Screening Interpretation: Positive Depression Screening Follow-up: Existing condition and In treatment Thrive Assessment: Date of Thrive Assessment Date Thrive assessed 07/02/24 07/02/24 12:41 Currently or been in a relationship where the following occur: No concerns reported Const General: no acute distress and alert HENMT Ears: TM's normal bilaterally and EAC's normal Throat: Yes posterior oropharynx normal and Yes tonsils normal (no TP congestion) Neck Neck: Yes no lymphadenopathy and Yes supple Thyroid: Thyroid normal Resp Auscultation: clear to auscultation bilaterally, no rales and no wheezes Cardio Rate: regular rate Rhythm: regular rhythm Heart sounds: no murmurs GI Palpation (GI): Soft to palpation and nontender Auscultation: normal bowel sounds General: Yes no CVA tenderness Back/Spine/Pelvis Back: no CVA tenderness Thoracic/Lumbar Spine: lumbar spinal tenderness Skin Other: (+) mild erythema of the distal half of both lower legs Rashes: no rashes Extrem General: No clubbing and Yes edema (2+ bipedal edema) Results Reviewed Results Reviewed: Laboratory Tests 03/13/24 03/13/24 06/13/24 15:41 15:49 14:42 WBC Hgb Hct Plt Count Sodium Potassium Creatinine Estimated GFR Glucose (Clinic) Random Glucose Hgb A1c (Clinic) 10.3 H Calcium Magnesium AST ALT Triglycerides 200 H Cholesterol 150 LDL Cholesterol, Calc 69 HDL Cholesterol 41 Urine Protein Negative Microalb/Creat Ratio 26.2 06/20/24 06/25/24 13:20 19:04 WBC 8.1 Hgb 14.7 Hct 43.6 Plt Count 253 Sodium 138 Potassium 4.2 Creatinine 1.00 Estimated GFR > 60 Glucose (Clinic) 235 H Random Glucose 262 H Hgb A1c (Clinic) Calcium 9.1 Magnesium 1.9 AST 24 ALT 28 Triglycerides Cholesterol LDL Cholesterol, Calc HDL Cholesterol Urine Protein Microalb/Creat Ratio Coding Level of Care Code Est Pt Level 4 (16213) Complex EM visit Add On G2211 Diagnoses Type 2 diabetes mellitus with hyperglycemia, without long-term current use of insulin E11.65 Diabetes mellitus remote computer terminal operator insulin use: without remote computer terminal operator use Benign essential hypertension I10 Paroxysmal atrial fibrillation with rapid ventricular response I48.0 Lymphedema I89.0 Seizure R56.9 Mild intermittent asthma without complication J45.20 Asthma severity: mild Asthma persistence: intermittent Asthma complication type: uncomplicated Degeneration of intervertebral disc of lumbar region with discogenic back pain M51.360 Disc-related pain type: discogenic back pain only Primary osteoarthritis of both knees M17.0 Benign prostatic hyperplasia with urinary frequency N40.1; R35.0 Lower urinary tract symptom presence: symptoms present Lower urinary tract symptom detail: urinary frequency Polysubstance abuse F19.10 Erectile dysfunction, unspecified erectile dysfunction type N52.9 Erectile dysfunction type: unspecified Insomnia, unspecified type G47.00 Insomnia type: unspecified Anxiety F41.9 Episode of recurrent major depressive disorder, unspecified depression episode severity F33.9 Depression Type: major depressive disorder Major depression recurrence: recurrent Active/Remission status: currently active Major depression episode severity: unspecified Morbid obesity with BMI of 40.0-44.9, adult E66.01; Z68.41 Additional Codes PHQ-9 - 84057 - PHQ-9 Billing: Yes ([id number]) Assessment & Plan Assessment & Plan (1) Type 2 diabetes mellitus with hyperglycemia: Comment: Admitted for [facility] in July 2019 Code(s): E11.65 - Type 2 diabetes mellitus with hyperglycemia Category: Medical Qualifiers: Diabetes mellitus remote computer terminal operator insulin use: without mcfp use Qualified Code(s): E11.65 - Type 2 diabetes mellitus with hyperglycemia Plan: His HgbA1c was at 10.3% when checked by endocrinology in the office a couple of weeks ago (HgbA1c was previously at 13.9% a few months ago) - goal is at least <7.0% Reinforced diabetic diet Continue Tresiba 86 units QD, Metformin 1000 mg BID, Ozempic 2 mg SQ once a week and Januvia 50 mg QD He is now seeing the diabetes educators, stamp clerk and with endocrinology (Dr. Shaver) regularly - to follow up with them as scheduled (2) Benign essential hypertension: Code(s): I10 - Essential (primary) hypertension Category: Medical Plan: Reinforced low sodium diet - goal is systolic BP of at least 120 to 130 mm or less Continue Lisinopril 30 mg QD and Amlodipine 5 mg QD He is also on Metoprolol ER 100 mg QD and Diltiazem CD 180 mg QD for atrial fibrillation but these should also help/impact his blood pressure (3) Paroxysmal atrial fibrillation with rapid ventricular response: Code(s): I48.0 - Paroxysmal atrial fibrillation Category: Medical Plan: Patient currently remains in sinus rhythm - states that he's had no recurrence of his symptoms since his hospitalization in October 2021, which was most likely triggered by his multiple drug use at the time Continue Metoprolol 100 mg BID and Diltiazem CD 180 mg QD Continue Eliquis 5 mg BID for thromboembolism prophylaxis Follow up with cardiology as scheduled (4) Lymphedema: Code(s): I89.0 - Lymphedema, not elsewhere classified Category: Medical Plan: Patient is again reminded to try to keep his legs elevated as often as he can to help minimize his edema He was hospitalized for a period of time back in June 2023 for cellulitis of the lower extremities Losing weight should also help with his swelling although at this time, there appears to be no realistic expectation for this to happen (5) Seizure: Code(s): R56.9 - Unspecified convulsions Category: Medical Plan: No seizure recurrence since his hospitalization back in July 2019 - this was most likely brought on by his hyperosmolar coma EEG done at [facility] in July 2019 showed borderline abnormal results and recommended a 24 hour ambulatory EEG for further evaluation Follow up with neurology as scheduled/as needed - it also appears that he has not seen neurology at all in the past couple of years (6) Asthma: Code(s): J45.909 - Unspecified asthma, uncomplicated Category: Medical Qualifiers: Asthma severity: mild Asthma persistence: intermittent Asthma complication type: uncomplicated Qualified Code(s): J45.20 - Mild intermittent asthma, uncomplicated Plan: Stable - continue Albuterol HFA 2 inhalations every 6 hours as needed (7) Lumbar degenerative disc disease: Code(s): M51.36 - Other intervertebral disc degeneration, lumbar region Category: Medical Qualifiers: Disc-related pain type: discogenic back pain only Qualified Code(s): M51.360 - Other intervertebral disc degeneration, lumbar region with discogenic back pain only Plan: Reinforced activity and weight-lifting restrictions Continue Tramadol 50 mg TID and Lidocaine patches 5% apply 2 patches QD PRN for pain Have offered to refer him to pain management for his back pain and knee pain in the past but patient declined He has also been advised a few times in the past when he asked for Rx that we will not start him on anything other than what he is currently on for pain, especially any opioid Rx, due to his known history of polysubstance abuse (8) Primary osteoarthritis of both knees: Code(s): M17.0 - Bilateral primary osteoarthritis of knee Category: Medical Plan: Continue Tramadol 50 mg TID PRN, Voltaren gel 1% apply PRN and Lidocaine 5% patches 2 patches QD PRN He has received cortisone injections into his knees from [facility] in the past with only slight relief Has apparently not followed up with orthopedics or with rheumatology in a while now and he is encouraged to try to schedule his follow ups with them [facility] (9) BPH (benign prostatic hyperplasia): Code(s): N40.0 - Benign prostatic hyperplasia without lower urinary tract symptoms Category: Medical Qualifiers: Lower urinary tract symptom presence: symptoms present Lower urinary tract symptom detail: urinary frequency Qualified Code(s): N40.1 - Benign prostatic hyperplasia with lower urinary tract symptoms; R35.0 - Frequency of micturition Plan: Continue Tamsulosin 0.4 mg QD (10) Polysubstance abuse: Code(s): F19.10 - Other psychoactive substance abuse, uncomplicated Category: Medical Plan: He was admitted previously to using some heroin but his UDS tested positive for opiates, fentanyl, cocaine and marijuana multiple times last year, most recently in June 2023, when his UDS was again positive for opiates, fentanyl and marijuana He was referred to Addiction Medicine for further management at his last visit He has been advised again that we are not going to continue refilling his Tramadol Rx if he continues with his recreational drug use (11) Erectile dysfunction: Code(s): N52.9 - Male erectile dysfunction, unspecified Category: Medical Qualifiers: Erectile dysfunction type: unspecified Qualified Code(s): N52.9 - Male erectile dysfunction, unspecified Plan: Continue Sildenafil 50 mg QD PRN - Rx refilled (12) Insomnia: Code(s): G47.00 - Insomnia, unspecified Category: Medical Qualifiers: Insomnia type: unspecified Qualified Code(s): G47.00 - Insomnia, unspecified Plan: Sleep hygiene reinforced Continue Zolpidem 10 mg QD PRN (13) Anxiety: Code(s): F41.9 - Anxiety disorder, unspecified Category: Medical Plan: Continue Buspirone 30 mg BID and Escitalopram 20 mg QD Follow up with psychiatry as scheduled (14) Depression: Code(s): F32.9 - Major depressive disorder, single episode, unspecified Category: Medical Qualifiers: Depression Type: major depressive disorder Major depression recurrence: recurrent Active/Remission status: currently active Major depression episode severity: unspecified Qualified Code(s): F33.9 - Major depressive disorder, recurrent, unspecified Plan: Continue Escitalopram 20 mg QD Follow up with psychiatry as scheduled (15) Morbid obesity with BMI of 40.0-44.9, adult: Code(s): E66.01 - Morbid (severe) obesity due to excess calories; Z68.41 - Body mass index [BMI] 40.0-44.9, adult Category: Medical Plan: Reinforced diet; exercise and weight loss are unrealistic expectations with this patient given his overall situation and motivation Plan Follow up in 3 months Orders: Orders Complete Blood Count Auto Diff 3 Months D64.9 - Anemia, unspecified Lipid Panel 3 Months E78.00 - Pure hypercholesterolemia, unspecified Hemoglobin A1c 3 Months E11.9 - Type 2 diabetes mellitus without complications TSH reflex Free T4 3 Months E78.00 - Pure hypercholesterolemia, unspecified Vitamin B12 and Folate 3 Months E53.8 - Deficiency of other specified B group vitamins Comprehensive [place]. Panel Fast 3 Months E78.00 - Pure hypercholesterolemia, unspecified Microalbumin, Random (w Creat) 3 Months E11.9 - Type 2 diabetes mellitus without complications UA CC w/rflx Micro + Cult 3 Months R30.0 - Dysuria Vitamin D 25-OH Total 3 Months E55.9 - Vitamin D deficiency, unspecified Medications: Refilled sildenafil administer 30 minutes to 4 hours before activity 50 mg PO DAILY PRN 10 tabs 0RF sexual activity
--- OUTSIDE RECORDS SUMMARY | 2024-07-02 13:42 | XMS_ITS | Clinical Summary ---
Author Organization [facility] Address [address] [place] [address] Care Team Providers Care Manufactured Buildings Repairer Name Role Phone Julio Carter MD Primary Care Provider [phone] Allergies No known active allergies Medications insulin glargine, BASAGLAR KWIKPEN, 100 UNIT/ML pen injectionIndicati ons:Type 2 diabetes mellitus without complication, with long-term current use of insulin ([facility]) Inject 30 Units under the [...] long-term current use of insulin ([facility]) Inject 0.75 mg under the skin once a week. Every sunday 2 mL 1 Active amLODIPine (NORVASC) 5 MG tabletIndications :Type 2 diabetes mellitus without complication, with long-term current use of insulin ([facility]),Essential hypertension Take 1 tablet (5 mg total) by mouth daily. 30 tablet 1 Active lisinopril (PRINIVIL,ZeSTRIL ) 30 MG tabletIndications :Type 2 diabetes mellitus without complication, with long-term current use of insulin ([facility]),Essential hypertension Take 1 tablet (30 mg total) by mouth daily. 30 tablet 1 Active metoPROLOL TARTRATE (LOPRESSOR) 50 MG tabletIndications :Paroxysmal atrial fibrillation (HCC),Type 2 diabetes mellitus without complication, with long-term current use of insulin ([facility]),Essential hypertension Take 1 tablet (50 mg total) by mouth every 12 (twelve) hours around the clock. 60 tablet 1 Active busPIRone (BUSPAR) 30 MG tabletIndications :Suicidal behavior without attempted self-injury,Type 2 diabetes mellitus without complication, with long-term current use of insulin ([facility]) Take 1 tablet (30 mg total) by mouth 3 (three) times a day. 90 tablet 1 Active traMADol (ULTRAM) 50 MG tabletIndications :Type 2 diabetes mellitus without complication, with long-term current use of insulin ([facility]) Take 1 tablet (50 mg total) by mouth 3 (three) times a day as needed for moderate pain or severe pain. For pain 15 tablet 1 Active albuterol (PROVENTIL HFA; VENTOLIN HFA) 108 (90 Base) MCG/ACT inhalerIndication s:Type 2 diabetes mellitus without complication, with long-term current use of insulin ([facility]) Inhale 2 puffs 4 times daily (every 6 hours) as needed for wheezing or shortness of breath. 1 Inhaler 1 Active hydrOXYzine HCl (ATARAX) 25 MG tabletIndications :Type 2 diabetes mellitus without complication, with long-term current use of insulin ([facility]) Take 1 tablet (25 mg total) by mouth 3 (three) times a day as needed for itching or anxiety. 30 tablet 1 Active escitalopram (LEXAPRO) 20 MG tabletIndications :Type 2 diabetes mellitus without complication, with long-term current use of insulin ([facility]) Take 1 tablet (20 mg total) by mouth daily. 30 tablet 1 Active apixaban (ELIQUIS) 5 MG tabletIndications :Paroxysmal atrial fibrillation (HCC),Type 2 diabetes mellitus without complication, with long-term current use of insulin ([facility]) Take 1 tablet (5 mg total) by mouth every 12 (twelve) hours around the clock. 60 tablet 1 Active ALPRAZolam (XANAX) 2 MG tabletIndications :Suicidal behavior without attempted self-injury,Type 2 diabetes mellitus without complication, with long-term current use of insulin ([facility]) Take 1 tablet (2 mg total) by mouth nightly as needed for anxiety. 5 tablet 1 Active lidocaine (LIDODERM) 5 % patchIndications: Type 2 diabetes mellitus without complication, with long-term current use of insulin ([facility]) Place 1 patch on the skin daily. Apply patch and leave on for 12 hours then remove. Patch may remain on skin for 12 hours per day. 30 patch 1 Active diclofenac (VOLTAREN) 1 % gelIndications:Ty pe 2 diabetes mellitus without complication, with long-term current use of insulin ([facility]) Apply 2 g topically 2 (two) times a day as needed for pain or muscle/joint pain. 100 g 1 Active FREESTYLE LITE stripIndications: Type 2 diabetes mellitus without complication, with long-term current use of insulin ([facility]) 100 test strips by Other (specify) route 3 (three) times a day before meals. Use as instructed 100 test strip 1 Active tamsulosin (FLOMAX) 0.4 MG capsuleIndication s:Type 2 diabetes mellitus without complication, with long-term current use of insulin ([facility]) Take 1 capsule (0.4 mg total) by mouth daily. 30 capsule 1 Active B-D ULTRAFINE III SHORT PEN 31G X 8 MM MiscIndications:T ype 2 diabetes mellitus without complication, with long-term current use of insulin ([facility]) Check blood glucose at least 3 times daily and once in the morning fasting. For diabetes mellitus ICD E 11.9 50 pen needle 1 Active Insulin Pen Needle 31G X 8 MM MiscIndications:T ype 2 diabetes mellitus without complication, with long-term current use of insulin ([facility]) Check blood glucose at least 3 times daily and once in the morning fasting. For diabetes mellitus ICD E 11.9 50 pen needle 1 Active Blood Glucose Monitoring Suppl (FreeStyle Lite) DeviceIndications :Type 2 diabetes mellitus without complication, with long-term current use of insulin ([facility]) Check blood glucose at least 3 times daily and once in the morning fasting. For diabetes mellitus ICD E 11.9 1 Device 1 Active FREESTYLE LITE stripIndications: Type 2 diabetes mellitus without complication, with long-term current use of insulin ([facility]) Check blood glucose at least 3 times daily and once in the morning fasting. For diabetes mellitus ICD E 11.9 100 test strip 1 Active FreeStyle Lancets lancetIndications :Type 2 diabetes mellitus without complication, with long-term current use of insulin ([facility]) Check blood glucose at least [...] Health Maintenance Insurance MEDICAID OUT OF STATE [facility] Advance Directives * Full Code (Latest Code Status on File) Date Activated Date Inactivated Comments 04/02/2020 7:54 PM Healthcare Agents on File Name Relationship Healthcare Agent Relationshi p Communication Fang Shaan Parent 4. Next of Kin ( Spouse, Adult Child, Parent, Adult Sibling, Grandparent) Care Teams Manufactured Buildings Repairer Relationship Specialty Start Date End Date Julio Carter MD [address] [place] [address] [address] [place] [address] PCP - General Internal Medicine 04/02/20
--- OUTSIDE RECORDS SUMMARY | 2024-07-02 13:42 | XMS_ITS | Encounter Summary ---
Author Organization [employer] Address [address] [place] [address] Care Team Providers Care Supervisor Scrap Preparation Name Role Phone Unavailable Primary Care Provider Unavailabl e Reason for Visit * Reason Onset Date Comments medication 07/12/2022 Appointment 07/12/2022 Encounter Details Date Type Department Care Team ([facility] st Contact Info) Description 07/12/2022 Telephone [facility] [address] [place] [address] Storm Maciel DDS [address] [place] [address] medication; Appointment Social History Tobacco Use Types [...]
--- OUTSIDE RECORDS SUMMARY | 2024-07-02 13:42 | XMS_ITS | Clinical Summary ---
Author Organization [facility] Address [address] [place] [address] Care Team Providers Care Physicians Assistant Name Role Phone Unavailable Primary Care Provider [...]
--- OUTSIDE RECORDS SUMMARY | 2024-07-02 13:42 | XMS_ITS | Clinical Summary ---
Author Organization [facility] Address [address] [facility] [address] [place] [address] Care Team Providers Care Procurement Manager Name Role Phone Unavailable Primary Care Provider [...]
== END 2024-07-02 13:31 | disposition home or self-care (01) ==
LOC: HO.HMCH 11:21
PROVIDERS: PCP Internal Medicine; Visit Provider Internal Medicine
DX: E11.65 Type 2 diabetes mellitus with hyperglycemia (principal); I10 Essential (primary) hypertension; I48.0 Paroxysmal atrial fibrillation; I89.0 Lymphedema, not elsewhere classified; R56.9 Unspecified convulsions; J45.20 Mild intermittent asthma, uncomplicated; M51.360 Other intervertebral disc degeneration, lumbar region with discogenic back pain only; M17.0 Bilateral primary osteoarthritis of knee; F19.10 Other psychoactive substance abuse, uncomplicated; E66.01 Morbid (severe) obesity due to excess calories; F33.9 Major depressive disorder, recurrent, unspecified; Z68.41 Body mass index [BMI] 40.0-44.9, adult; N40.1 Benign prostatic hyperplasia with lower urinary tract symptoms; R35.0 Frequency of micturition; N52.9 Male erectile dysfunction, unspecified; G47.00 Insomnia, unspecified; F41.9 Anxiety disorder, unspecified

== ENCOUNTER → 2024-07-02 11:20 | Outpatient (BNVA) | payer OTHER, SELFPAY | PROVIDERS: PCP Internal Medicine; Visit Provider Internal Medicine | DX: E11.65 Type 2 diabetes mellitus with hyperglycemia (principal); I10 Essential (primary) hypertension; I48.0 Paroxysmal atrial fibrillation; I89.0 Lymphedema, not elsewhere classified; R56.9 Unspecified convulsions; J45.20 Mild intermittent asthma, uncomplicated; M51.360 Other intervertebral disc degeneration, lumbar region with discogenic back pain only; M17.0 Bilateral primary osteoarthritis of knee; N40.1 Benign prostatic hyperplasia with lower urinary tract symptoms; R35.0 Frequency of micturition; F19.10 Other psychoactive substance abuse, uncomplicated; N52.9 Male erectile dysfunction, unspecified; G47.00 Insomnia, unspecified; F41.9 Anxiety disorder, unspecified; F33.9 Major depressive disorder, recurrent, unspecified; E66.01 Morbid (severe) obesity due to excess calories; Z68.41 Body mass index [BMI] 40.0-44.9, adult; Z79.01 Long term (current) use of anticoagulants; Z79.4 Long term (current) use of insulin; Z79.84 Long term (current) use of oral hypoglycemic drugs; Z79.899 Other long term (current) drug therapy | CPT/HCPCS: 96127; 99212 ==

== ENCOUNTER 2024-07-11 13:31 | Outpatient (AMB) | payer OTHER, SELFPAY ==
--- NOTE | 2024-07-11 13:33 | A.OFFVIS_ITS ---
Vital Signs 07/11/24 13:38 Height 5 ft 11 in Weight 315 lb 11.231 oz BMI 44.0 BP 140/72 H Blood Pressure Location Rt brachial Position Sitting Pulse 103 H Pulse Source Pulse Oximeter Pulse Oximetry (%) 98 Oxygen Delivery Method Room Air Intake Visit Reasons: T2DM Intake Note: Patient present today to follow up on Type 2 Diabetes Mellitus. Last Diabetic Eye exam: Due Last Podiatry Visit: Does not see a Method Consultant Random Glucose: 336 mg/dl HgA1C: 10.3% 06/13/2024 Janitorial Cleaner Required: No Accompanied by: Self / Same As Patient Allergies Penicillins [PENICILLINS] Allergy (Unknown, Verified 07/11/24 13:38) RASH Medication List - Last Reconciled 07/11/24 by GHULAM Jean amiodarone 400 mg (2 x 200 mg) PO BID apixaban (Eliquis) 5 mg PO BID 30 days blood sugar diagnostic (FreeStyle Lite Strips) As directed blood-glucose meter (FreeStyle Lite Meter kit) Use as directed to check glucose twice daily. blood-glucose sensor (Dexcom G7 Sensor device) As directed change every 10 days blood-glucose,polishing wheel setter,cont (Dexcom G7 Veneer Taping Machine Offbearer) As directed blood-glucose,polishing wheel setter,cont (Dexcom G7 Veneer Taping Machine Offbearer) As directed buspirone 30 mg PO BID ciprofloxacin HCl 0.3% apply 1/2 inch ribbon into affected eye(s) 3 times daily for 2 days; then twice daily for 5 days clindamycin HCl 450 mg (3 x 150 mg) PO TID clotrimazole-betamethasone 1-0.05 % 1 appl topical BID PRN diltiazem HCl CD (Cardizem CD) 240 mg PO DAILY escitalopram oxalate 20 mg PO DAILY insulin degludec (Tresiba FlexTouch U-200 insulin) 90 units subcut BEDTIME insulin lispro (Humalog KwikPen (U-100) Insulin) 4 units (0.04 mL) subcut TID lidocaine 5% 2 patches topical DAILY PRN 30 days metformin ER 2,000 mg (4 x 500 mg) PO DAILY methadone (Methadose) 20 mg (2 mL) PO DAILY@0800 metoprolol tartrate 25 mg PO BID pen needle, diabetic (BD Ultra-Fine Mini Pen Needle) USE DIRECTED ONCE DAILY [ROLLATOR As directed] semaglutide (Ozempic) 2 mg (0.75 mL) subcut QWEEK sildenafil 50 mg PO DAILY PRN sitagliptin phosphate (Januvia) 100 mg PO DAILY sodium chloride 0.65% (Saline Nasal) 2 sprays intranasal QID PRN tramadol 50 mg PO TID PRN 30 days Ventolin HFA 90 mcg/actuation (albuterol sulfate) 2 puffs inhalation Q4-6H PRN NS zolpidem 10 mg PO BEDTIME PRN HPI Comments Details: This is a 54-year-old male with a past medical history of polysubstance abuse, uncontrolled type 2 diabetes, depression, atrial flutter with RVR, PTSD presenting for diabetic management. His diabetic management has been complicated by polysubstance abuse. Hemoglobin A1c 10.3% 06/13/2024. Hemoglobin A1c 13.9% 03/13/2024. Reviewed Dexcom download Average glucose 295 GMI 10.4% Coefficient variation 19.2% 78% very high 21% high 1% in range 0% hypoglycemia Patient has 24 hour hyperglycemia which worsens in the evening and overnight. Patient says he is taking Ozempic 2 mg weekly, Tresiba 86 units nightly and metformin ER 2000 mg daily and Januvia 50 mg. Past medications: Lantus discontinued SGLT2 not prescribed-history of balanitis Endorses polyuria, polydipsia Denies any hypoglycemic events. ROS: Constitutional: No fevers or chills. Eyes: No vision changes, blurry vision, double vision Respiratory: No shortness of breath, cough or sputum production. Cardiovascular: No chest pain, chest pressure, palpitations. Endocrine: See HPI Psychiatric: Endorses depression and anxiety. Denies SI/HI. Physical exam: Constitutional: Alert, in no distress. Neck: Supple, Full range of motion. No lymphadenopathy. No palpable thyroid masses. Respiratory: Clear to auscultation. Cardiovascular: S1 S2 regular. No murmurs. Psychiatric: Normal mood and affect [facility] Medical History Uncontrolled type 2 diabetes mellitus with hyperglycemia Tachycardia Type 2 diabetes mellitus with hyperglycemia Paroxysmal atrial fibrillation Morbid obesity Substance abuse Essential hypertension Cocaine abuse Erectile dysfunction Polysubstance abuse Paroxysmal atrial fibrillation with rapid ventricular response Lumbar degenerative disc disease Substance abuse Diabetes Depression Overactive bladder Arthritis BPH (benign prostatic hyperplasia) Asthma Seizure Morbid obesity with BMI of 40.0-44.9, adult Benign essential hypertension Insomnia Primary osteoarthritis of both knees Anxiety Family history of thyroid disorder Surgical History No history of previous surgery Family History Father ETOH abuse Mother Diabetes Arthritis of knee Hypertension Other Mental health problem Substance abuse Social History Household Members: Friend(s) Household Members Other:: rents a room in a house Housing: House Housing Other:: rents a room Alcohol intake: current Alcohol intake frequency: does not drink Comment: patient refused Patient Tobacco Use Status: Never used Tobacco e-Cigarette/Vaping Use: Never Used Second Hand Smoke Exposure: No Substance Use Type: Marijuana and Opiates Advance Directives Date on File: 02/23/22 service: No Current occupational status: unemployed and disabled Sexual orientation: Straight/Heterosexual Cognitive needs: No Hearing needs: No Vision needs: No Physical Exam Vital Signs: Last Vital Signs Pulse 103 H 07/11/24 13:38 BP 140/72 H 07/11/24 13:38 Pulse Ox 98 07/11/24 13:38 Oxygen Delivery Method Room Air 07/11/24 13:38 BMI result Body Mass Index 44.0 Office Procedures Glucose Monitoring Details Details: See HPI 36752 - Glucose monitoring, continuous-physician I&R Procedure code (CPT) selection complete Results Reviewed Results Reviewed: Laboratory Tests 08/16/23 03/13/24 03/13/24 15:23 15:41 15:49 Plt Count Creatinine Estimated GFR Hgb A1c (Clinic) AST ALT Triglycerides 200 H Cholesterol 150 LDL Cholesterol, Calc 69 HDL Cholesterol 41 Vitamin B12 626 TSH 1.14 Urine Creatinine 103.05 Urine Microalbumin 27.0 Microalb/Creat Ratio 26.2 06/13/24 06/25/24 14:42 19:04 Plt Count 253 Creatinine 1.00 Estimated GFR > 60 Hgb A1c (Clinic) 10.3 H AST 24 ALT 28 Triglycerides Cholesterol LDL Cholesterol, Calc HDL Cholesterol Vitamin B12 TSH Urine Creatinine Urine Microalbumin Microalb/Creat Ratio Assessment & Plan Assessment & Plan (1) Uncontrolled type 2 diabetes mellitus with hyperglycemia: Code(s): E11.65 - Type 2 diabetes mellitus with hyperglycemia Category: Medical Plan In summary this is a 54-year-old male with uncontrolled type 2 diabetes. Treatment complicated by polysubstance abuse and noncompliance. Increase Tresiba to 90 units daily Start Humalog (short acting insulin) 4 units three times daily 15 MINUTES before meals Increase Januvia to 100 mg daily Continue Ozempic 2 mg weekly Continue Metformin extended release 2000 mg daily If you experience low blood sugar, treat this by eating a chewable fruit candy like skittles or jelly beans (about 8 pieces), 4 ounces (1/2 cup) of fruit juice (not diet), 1 tablespoon of honey or 4 glucose tablets. If your blood sugar is under 55, take double the amount of one of the above. Recheck your blood sugar in 15 minutes. Reminded him to bring his CGM or glucometer to all appointments. Follow up in 4 weeks for Type II diabetes. Orders: Orders AMB Glucose Monitoring Today E11.9 - Type 2 diabetes mellitus without complications Medications: New sitagliptin phosphate (Januvia) 100 mg PO DAILY 90 tabs 3RF insulin lispro (Humalog KwikPen (U-100) Insulin) Administer three times daily 15 minutes before meals 4 units (0.04 mL) subcut TID 15 mL 3RF Changed From insulin degludec (Tresiba FlexTouch U-200 insulin) 86 units (0.43 mL) subcut BEDTIME 18 mL 5RF To insulin degludec (Tresiba FlexTouch U-200 insulin) 90 units subcut BEDTIME Discontinued sitagliptin phosphate (Januvia) Discontinued Reason: Doctor's Order 50 mg PO DAILY 90 tabs 0RF Patient Instructions: Increase Tresiba to 90 units daily Start Humalog (short acting insulin) 4 units three times daily 15 MINUTES before meals Increase Januvia to 100 mg daily Continue Ozempic 2 mg weekly Continue Metformin extended release 2000 mg daily If you experience low blood sugar, treat this by eating a chewable fruit candy like skittles or jelly beans (about 8 pieces), 4 ounces (1/2 cup) of fruit juice (not diet), 1 tablespoon of honey or 4 glucose tablets. If your blood sugar is under 55, take double the amount of one of the above. Recheck your blood sugar in 15 minutes. Coding Level of Care Code Est Pt Level 4 (76968) Diagnoses Uncontrolled type 2 diabetes mellitus with hyperglycemia E11.65 CPT Codes Details - CPT: 08343 - Glucose monitoring, continuous-physician I&R ([id number])
[2024-07-11 13:38] VITALS: BP 140/72; PULSE 103; O2SAT 98; BMI 44.0
--- OUTSIDE RECORDS SUMMARY | 2024-07-11 13:46 | XMS_ITS | Clinical Summary ---
Author Organization [facility] Address [address] [place] [address] Care Team Providers Care Practicing Urologist Name Role Phone Julio Carter MD Primary Care Provider [phone] Allergies No known active allergies Medications insulin glargine, BASAGLAR KWIKPEN, 100 UNIT/ML pen injectionIndicati ons:Type 2 diabetes mellitus without complication, with long-term current use of insulin ([facility]) Inject 30 Units under the skin nightly. 15 mL 1 Active metFORMIN (GLUCOPHAGE) 1000 MG tabletIndications :Type 2 diabetes mellitus without complication, with long-term current use of insulin (HCC) Take 1 tablet (1,000 mg total) by mouth 2 (two) times a day. 60 tablet 1 Active Trulicity 0.75 MG/0.5ML subcutaneous injectionIndicati ons:Type 2 diabetes mellitus without complication, with long-term current use of insulin ([facility]) Inject 0.75 mg under the skin once a week. Every sunday 2 mL 1 Active amLODIPine (NORVASC) 5 MG tabletIndications :Type 2 diabetes mellitus without complication, with long-term current use of insulin ([facility]),Essential hypertension Take 1 tablet (5 mg total) by mouth daily. 30 tablet 1 Active lisinopril (PRINIVIL,ZeSTRIL ) 30 MG tabletIndications :Type 2 diabetes mellitus without complication, with long-term current use of insulin ([facility]),Essential hypertension Take 1 tablet (30 mg total) by mouth daily. 30 tablet 1 Active metoPROLOL TARTRATE (LOPRESSOR) 50 MG tabletIndications :Paroxysmal atrial fibrillation (HCC),Type 2 diabetes mellitus without complication, with long-term current use of insulin ([facility]),Essential hypertension Take 1 tablet (50 mg total) by mouth every 12 (twelve) hours around the clock. 60 tablet 1 Active busPIRone (BUSPAR) 30 MG tabletIndications :Suicidal behavior without attempted self-injury,Type 2 diabetes mellitus without complication, with long-term current use of insulin ([facility]) Take 1 tablet (30 mg total) by mouth 3 (three) times a day. 90 tablet 1 Active traMADol (ULTRAM) 50 MG tabletIndications :Type 2 diabetes mellitus without complication, with long-term current use of insulin ([facility]) Take 1 tablet (50 mg total) by mouth 3 (three) times a day as needed for moderate pain or severe pain. For pain 15 tablet 1 Active albuterol (PROVENTIL HFA; VENTOLIN HFA) 108 (90 Base) MCG/ACT inhalerIndication s:Type 2 diabetes mellitus without complication, with long-term current use of insulin ([facility]) Inhale 2 puffs 4 times daily (every 6 hours) as needed for wheezing or shortness of breath. 1 Inhaler 1 Active hydrOXYzine HCl (ATARAX) 25 MG tabletIndications :Type 2 diabetes mellitus without complication, with long-term current use of insulin ([facility]) Take 1 tablet (25 mg total) by mouth 3 (three) times a day as needed for itching or anxiety. 30 tablet 1 Active escitalopram (LEXAPRO) 20 MG tabletIndications :Type 2 diabetes mellitus without complication, with long-term current use of insulin ([facility]) Take 1 tablet (20 mg total) by mouth daily. 30 tablet 1 Active apixaban (ELIQUIS) 5 MG tabletIndications :Paroxysmal atrial fibrillation (HCC),Type 2 diabetes mellitus without complication, with long-term current use of insulin ([facility]) Take 1 tablet (5 mg total) by mouth every 12 (twelve) hours around the clock. 60 tablet 1 Active ALPRAZolam (XANAX) 2 MG tabletIndications :Suicidal behavior without attempted self-injury,Type 2 diabetes mellitus without complication, with long-term current use of insulin ([facility]) Take 1 tablet (2 mg total) by mouth nightly as needed for anxiety. 5 tablet 1 Active lidocaine (LIDODERM) 5 % patchIndications: Type 2 diabetes mellitus without complication, with long-term current use of insulin ([facility]) Place 1 patch on the skin daily. Apply patch and leave on for 12 hours then remove. Patch may remain on skin for 12 hours per day. 30 patch 1 Active diclofenac (VOLTAREN) 1 % gelIndications:Ty pe 2 diabetes mellitus without complication, with long-term current use of insulin ([facility]) Apply 2 g topically 2 (two) times a day as needed for pain or muscle/joint pain. 100 g 1 Active FREESTYLE LITE stripIndications: Type 2 diabetes mellitus without complication, with long-term current use of insulin ([facility]) 100 test strips by Other (specify) route 3 (three) times a day before meals. Use as instructed 100 test strip 1 Active tamsulosin (FLOMAX) 0.4 MG capsuleIndication s:Type 2 diabetes mellitus without complication, with long-term current use of insulin ([facility]) Take 1 capsule (0.4 mg total) by mouth daily. 30 capsule 1 Active B-D ULTRAFINE III SHORT PEN 31G X 8 MM MiscIndications:T ype 2 diabetes mellitus without complication, with long-term current use of insulin ([facility]) Check blood glucose at least 3 times daily and once in the morning fasting. For diabetes mellitus ICD E 11.9 50 pen needle 1 Active Insulin Pen Needle 31G X 8 MM MiscIndications:T ype 2 diabetes mellitus without complication, with long-term current use of insulin ([facility]) Check blood glucose at least 3 times daily and once in the morning fasting. For diabetes mellitus ICD E 11.9 50 pen needle 1 Active Blood Glucose Monitoring Suppl (FreeStyle Lite) DeviceIndications :Type 2 diabetes mellitus without complication, with long-term current use of insulin ([facility]) Check blood glucose at least 3 times daily and once in the morning fasting. For diabetes mellitus ICD E 11.9 1 Device 1 Active FREESTYLE LITE stripIndications: Type 2 diabetes mellitus without complication, with long-term current use of insulin ([facility]) Check blood glucose at least 3 times daily and once in the morning fasting. For diabetes mellitus ICD E 11.9 100 test strip 1 Active FreeStyle Lancets lancetIndications :Type 2 diabetes mellitus without complication, with long-term current use of insulin ([facility]) Check blood glucose at least 3 times [...] Health Maintenance Insurance MEDICAID OUT OF STATE [facility] Advance Directives * Full Code (Latest Code Status on File) Date Activated Date Inactivated Comments 04/02/2020 7:54 PM Healthcare Agents on File Name Relationship Healthcare Agent Relationshi p Communication Fang Shaan Parent 4. Next of Kin ( Spouse, Adult Child, Parent, Adult Sibling, Grandparent) Care Teams Practicing Urologist Relationship Specialty Start Date End Date Julio Carter MD [address] [place] [address] [address] [place] [address] PCP - General Internal Medicine 04/02/20
--- OUTSIDE RECORDS SUMMARY | 2024-07-11 13:46 | XMS_ITS | Clinical Summary ---
Author Organization [facility] ity Address [address] [place] [address] Care Team Providers Care Software Quality Engineer Name Role Phone Unavailable Primary Care [...]
--- OUTSIDE RECORDS SUMMARY | 2024-07-11 13:46 | XMS_ITS | Clinical Summary ---
Author Organization [employer] [facility] Address [address] [place] [address] Care Team Providers Care Bullard Operator Name Role Phone Unavailable Primary Care [...]
--- OUTSIDE RECORDS SUMMARY | 2024-07-11 13:46 | XMS_ITS | Encounter Summary ---
Author Organization [employer] Address [address] [address] Care Team Providers Care Senior Svp Name Role Phone Unavailable Primary Care Provider Unavailabl e Reason for Visit * Reason Onset Date Comments medication 07/12/2022 Appointment 07/12/2022 Encounter Details Date Type Department Care Team ([facility] st Contact Info) Description 07/12/2022 Telephone [facility] [address] [place] [address] Storm Maciel DDS [address] [place] [address] medication; Appointment Social History Tobacco Use Types [...]
[2024-07-11 13:51] LABS: Glucose, Whole Blood 336 mg/dL (60-115)
== END 2024-07-11 14:13 | disposition home or self-care (01) ==
LOC: HO.ENCR 13:31
PROVIDERS: PCP Internal Medicine; Visit Provider Physician Assistant Medical
DX: E11.65 Type 2 diabetes mellitus with hyperglycemia (principal)

== ENCOUNTER → 2024-07-11 13:31 | Outpatient (BNVA) | payer OTHER, SELFPAY | PROVIDERS: PCP Internal Medicine; Visit Provider Physician Assistant Medical | DX: E11.65 Type 2 diabetes mellitus with hyperglycemia (principal) | CPT/HCPCS: 82947; 99212 ==

== ENCOUNTER 2024-08-05 11:04 | Outpatient (AMB) | payer OTHER, SELFPAY ==
--- OUTSIDE RECORDS SUMMARY | 2024-08-05 11:54 | XMS_ITS | Clinical Summary ---
Author Organization [facility] ity Address [address] [place] [address] Care Team Providers Care Nurse Informatics Educator Name Role Phone Unavailable Primary Care Provider [...]
--- NOTE | 2024-08-05 12:36 | A.OFFVIS_ITS ---
Intake Intake Visit Reasons: T2DM Allergies Penicillins [PENICILLINS] Allergy (Unknown, Verified 07/11/24 13:38) RASH HPI Comprehensive Diabetes Asmnt Most Recent Diabetes Results: Creatinine 1.00 mg/dL (0.5-1.4) 06/25/24 Blood Urea Nitrogen 16 mg/dL (9-16) 06/25/24 Sodium 138 mmol/L (135-145) 06/25/24 Potassium 4.2 mmol/L (3.3-5.1) 06/25/24 Chloride 106 mmol/L (96-108) 06/25/24 Carbon Dioxide 26 mmol/L (22-29) 06/25/24 Calcium 9.1 mg/dL (8.4-10.2) 06/25/24 AST 24 U/L (5-37) 06/25/24 ALT 28 U/L (0-40) 06/25/24 Total Protein 7.3 g/dL (6.5-8.0) 06/25/24 Albumin 4.1 g/dL (3.5-5.0) 06/25/24 [facility] Medical History Uncontrolled type 2 diabetes mellitus with hyperglycemia Tachycardia Type 2 diabetes mellitus with hyperglycemia Paroxysmal atrial fibrillation Morbid obesity Substance abuse Essential hypertension Cocaine abuse Erectile dysfunction Polysubstance abuse Paroxysmal atrial fibrillation with rapid ventricular response Lumbar degenerative disc disease Substance abuse Diabetes Depression Overactive bladder Arthritis BPH (benign prostatic hyperplasia) Asthma Seizure Morbid obesity with BMI of 40.0-44.9, adult Benign essential hypertension Insomnia Primary osteoarthritis of both knees Anxiety Family history of thyroid disorder Surgical History No history of previous surgery Family History Father ETOH abuse Mother Diabetes Arthritis of knee Hypertension Other Mental health problem Substance abuse Social History Household Members: Friend(s) Household Members Other:: rents a room in a house Housing: House Housing Other:: rents a room Alcohol intake: current Alcohol intake frequency: does not drink Comment: patient refused Patient Tobacco Use Status: Never used Tobacco e-Cigarette/Vaping Use: Never Used Second Hand Smoke Exposure: No Substance Use Type: Marijuana and Opiates Advance Directives Date on File: 02/23/22 service: No Current occupational status: unemployed and disabled Sexual orientation: Straight/Heterosexual Cognitive needs: No Hearing needs: No Vision needs: No Assessment & Plan Assessment & Plan (1) Type 2 diabetes mellitus with hyperglycemia: Comment: Admitted for [facility] in July 2019 Code(s): E11.65 - Type 2 diabetes mellitus with hyperglycemia Qualifiers: Diabetes mellitus ferry terminal agent insulin use: without usp use Qualified Code(s): E11.65 - Type 2 diabetes mellitus with hyperglycemia Plan: Patient could not stay for whole visit due to transportation. Started to download Dexcom G7 sonny on patient's cell phone Patient given Dexcom user name and Dexcom password to continue sonny set up at home At next visit we will connect patient is sonny to clinic's DexPiCloud software Coding Level of Care Code Est Pt Level 1 (61355) Diagnoses Type 2 diabetes mellitus with hyperglycemia, without long-term current use of insulin E11.65 Diabetes mellitus ferry terminal agent insulin use: without usp use
== END 2024-08-05 12:41 | disposition home or self-care (01) ==
LOC: HO.ENCR 11:05
PROVIDERS: PCP Internal Medicine; Visit Provider Registered Nurse Diabetes Educator
DX: E11.65 Type 2 diabetes mellitus with hyperglycemia (principal)

== ENCOUNTER → 2024-08-05 11:04 | Outpatient (BNVA) | payer OTHER, SELFPAY | PROVIDERS: PCP Internal Medicine; Visit Provider Registered Nurse Diabetes Educator | DX: E11.65 Type 2 diabetes mellitus with hyperglycemia (principal) | CPT/HCPCS: 99211 ==

== ENCOUNTER 2024-08-12 13:32 | Outpatient (AMB) | payer OTHER, SELFPAY ==
--- NOTE | 2024-08-12 13:33 | MHC.OFFVIS ---
Vital Signs 08/12/24 13:43 Height 5 ft 11 in Weight 325 lb 9.964 oz BMI 45.4 BP 138/70 Blood Pressure Location Rt brachial Position Sitting Pulse 84 Pulse Source Pulse Oximeter Pulse Oximetry (%) 98 Oxygen Delivery Method Room Air Intake Visit Reasons: Type II diabetes Intake Note: Patient present today to follow up on Type 2 Diabetes Mellitus. Last Diabetic Eye exam: Due Last Podiatry Visit: Does not see a Lands Resource Manager Random Glucose: 163 mg/dl HgA1C: 10.3% 06/13/2024 Hull Outfit Supervisor Required: No Accompanied by: Self / Same As Patient Allergies Penicillins [PENICILLINS] Allergy (Unknown, Verified 08/12/24 13:40) RASH HPI Comments Details: This is a 54-year-old male with a past medical history of polysubstance abuse, uncontrolled type 2 diabetes, depression, atrial flutter with RVR, PTSD presenting for diabetic management. Hemoglobin A1c 10.3% 06/13/2024. Hemoglobin A1c 13.9% 03/13/2024. Reviewed glucometer download In range 29% 0.5 readings per day Highest 348 Lowest 92 Average glucose 247 Patient reports he is not using CGM because he left the sensors in [place] at his daughter's house. This is a frequent problem for him. We have no samples available today. Current medications: Ozempic 2 mg weekly, Tresiba 90 units nightly, metformin ER 2000 mg daily, Januvia 100 mg and Humalog 4 units TID before meals. Past medications: Lantus discontinued SGLT2 not prescribed-history of balanitis Compliance issues: He did not start Humalog. He does not take medications consistently. He doesn't follow a diabetic diet. Patient receives meals on wheels. It's a lot of high carb meals. Food stamps always run out. Endorses polyuria, polydipsia Denies any hypoglycemic events. ROS: Constitutional: No fevers or chills. Eyes: No vision changes, blurry vision, double vision Respiratory: No shortness of breath, cough or sputum production. Cardiovascular: No chest pain, chest pressure, palpitations. Endocrine: See HPI Psychiatric: Endorses depression and anxiety. Denies SI/HI. Physical exam: Constitutional: Alert, in no distress. Neck: Supple, Full range of motion. No lymphadenopathy. No palpable thyroid masses. Respiratory: Clear to auscultation. Cardiovascular: S1 S2 regular. No murmurs. Psychiatric: Normal mood and affect [facility] Medical History (Updated 08/12/24 @ 14:22 by GHULAM Jean) Food insecurity Uncontrolled type 2 diabetes mellitus with hyperglycemia Tachycardia Type 2 diabetes mellitus with hyperglycemia Paroxysmal atrial fibrillation Morbid obesity Substance abuse Essential hypertension Cocaine abuse Erectile dysfunction Polysubstance abuse Paroxysmal atrial fibrillation with rapid ventricular response Lumbar degenerative disc disease Substance abuse Diabetes Depression Overactive bladder Arthritis BPH (benign prostatic hyperplasia) Asthma Seizure Morbid obesity with BMI of 40.0-44.9, adult Benign essential hypertension Insomnia Primary osteoarthritis of both knees Anxiety Family history of thyroid disorder Surgical History No history of previous surgery Family History Father ETOH abuse Mother Diabetes Arthritis of knee Hypertension Other Mental health problem Substance abuse Social History Household Members: Friend(s) Household Members Other:: rents a room in a house Housing: House Housing Other:: rents a room Alcohol intake: current Alcohol intake frequency: does not drink Comment: patient refused Patient Tobacco Use Status: Never used Tobacco e-Cigarette/Vaping Use: Never Used Second Hand Smoke Exposure: No Substance Use Type: Marijuana and Opiates Advance Directives Date on File: 02/23/22 service: No Current occupational status: unemployed and disabled Sexual orientation: Straight/Heterosexual Cognitive needs: No Hearing needs: No Vision needs: No Physical Exam Vital Signs: Last Vital Signs Pulse 84 08/12/24 13:43 BP 138/70 08/12/24 13:43 Pulse Ox 98 08/12/24 13:43 Oxygen Delivery Method Room Air 08/12/24 13:43 BMI result Body Mass Index 45.4 Results Reviewed Results Reviewed: Laboratory Last Values Glucose (Clinic) 163 mg/dL (60-115) H 08/12/24 13:45 Laboratory Tests 08/16/23 03/13/24 03/13/24 15:23 15:41 15:49 Plt Count Creatinine Estimated GFR Hgb A1c (Clinic) AST ALT Triglycerides 200 H Cholesterol 150 LDL Cholesterol, Calc 69 HDL Cholesterol 41 Vitamin B12 626 TSH 1.14 Urine Creatinine 103.05 Urine Microalbumin 27.0 Microalb/Creat Ratio 26.2 06/13/24 06/25/24 14:42 19:04 Plt Count 253 Creatinine 1.00 Estimated GFR > 60 Hgb A1c (Clinic) 10.3 H AST 24 ALT 28 Triglycerides Cholesterol LDL Cholesterol, Calc HDL Cholesterol Vitamin B12 TSH Urine Creatinine Urine Microalbumin Microalb/Creat Ratio Assessment & Plan Assessment & Plan (1) Uncontrolled type 2 diabetes mellitus with hyperglycemia: Code(s): E11.65 - Type 2 diabetes mellitus with hyperglycemia Category: Medical (2) Food insecurity: Code(s): Z59.41 - Food insecurity Category: Medical Plan In summary this is a 54-year-old male with uncontrolled type 2 diabetes. Treatment complicated by polysubstance abuse and noncompliance. Continue Tresiba to 90 units daily Start Humalog (short acting insulin) 4 units three times daily 15 MINUTES before meals Continue Januvia to 100 mg daily Continue Ozempic 2 mg weekly Continue Metformin extended release 2000 mg daily If you experience low blood sugar, treat this by eating a chewable fruit candy like skittles or jelly beans (about 8 pieces), 4 ounces (1/2 cup) of fruit juice (not diet), 1 tablespoon of honey or 4 glucose tablets. If your blood sugar is under 55, take double the amount of one of the above. Recheck your blood sugar in 15 minutes. Reminded him to bring his CGM or glucometer to all appointments. Advised patient he can check back with the office next week to see if we have samples and have him daughter send him his sensors he forgot at her house. Patient gave consent for [facility] referral. Placed. Follow up in 4 weeks for Type II diabetes. Medications: New insulin degludec (Tresiba FlexTouch U-200 insulin) 90 units (0.45 mL) subcut BEDTIME 12 mL 5RF Coding Level of Care Code Est Pt Level 4 (92446) Complex EM visit Add On G2211 Diagnoses Uncontrolled type 2 diabetes mellitus with hyperglycemia E11.65 Food insecurity Z59.41
[2024-08-12 13:43] VITALS: BP 138/70; PULSE 84; O2SAT 98; BMI 45.4
[2024-08-12 13:49] LABS: Glucose, Whole Blood 163 mg/dL (60-115)
--- OUTSIDE RECORDS SUMMARY | 2024-08-12 15:10 | XMS_ITS | Clinical Summary ---
Author Organization [facility] ity Address [address] [place] [address] Care Team Providers Care Prosthodontist/Educator Name Role Phone Unavailable Primary Care Provider [...]
== END 2024-08-12 14:11 | disposition home or self-care (01) ==
LOC: HO.ENCR 13:33
PROVIDERS: PCP Internal Medicine; Visit Provider Physician Assistant Medical
DX: E11.65 Type 2 diabetes mellitus with hyperglycemia (principal); Z59.41 Food insecurity

== ENCOUNTER → 2024-08-12 13:32 | Outpatient (BNVA) | payer OTHER, SELFPAY | PROVIDERS: PCP Internal Medicine; Visit Provider Physician Assistant Medical | DX: E11.65 Type 2 diabetes mellitus with hyperglycemia (principal); Z59.41 Food insecurity; Z79.4 Long term (current) use of insulin; Z79.84 Long term (current) use of oral hypoglycemic drugs | CPT/HCPCS: 82947; 99212 ==

== ENCOUNTER 2024-09-09 13:06 | Outpatient (AMB) | payer OTHER, SELFPAY ==
[2024-09-09 13:18] VITALS: BP 140/80; PULSE 78; O2SAT 98; BMI 43.4
--- NOTE | 2024-09-09 13:18 | A.OFFVIS_ITS ---
Vital Signs 09/09/24 13:18 Height 5 ft 11 in Weight 310 lb 13.628 oz BMI 43.4 BP 140/80 H Blood Pressure Location Rt brachial Position Sitting Pulse 78 Pulse Source Pulse Oximeter Pulse Oximetry (%) 98 Oxygen Delivery Method Room Air Intake Visit Reasons: Type II diabetes Intake Note: Patient present today to follow up on Type 2 Diabetes Mellitus. Last Diabetic Eye exam: Due Last Podiatry Visit: Does not see a Ballet Dancer Most Recent HgA1C: 9.5%, 09/09/2024 Random Glucose: 210 mg/dL Registered Veterinary Technician Required: No Accompanied by: Self / Same As Patient Allergies Penicillins (PENICILLINS) Allergy (Unknown, Verified 09/09/24 13:25) RASH HPI Comments Details: This is a 54-year-old male with a past medical history of polysubstance abuse, uncontrolled type 2 diabetes, depression, atrial flutter with RVR, PTSD present ing for diabetic management. Hemoglobin A1c 9.5% 09/09/2024 down from 13.9% 03/13/2024. He does not have a glucometer today. He forgot the reader. Current medications: Ozempic 2 mg weekly, Tresiba 90 units nightly, metformin ER 2000 mg daily, Januvia 100 mg and Humalog 4 units TID before meals. Past medications: Lantus discontinued SGLT2 not prescribed-history of balanitis Compliance issues: He did not start Humalog, but he says that he is taking his other medications more consistently. He doesn't follow a diabetic diet. Patient receives meals on wheels. Endorses polyuria, polydipsia Denies any hypoglycemic events. Complications: Neuropathy He has a callus under the left foot that is bothering him. He doesn't see podiatry. Overdue for diabetic eye exam. ROS: Constitutional: No fevers or chills. Eyes: No vision changes, blurry vision, double vision Respiratory: No shortness of breath, cough or sputum production. Cardiovascular: No chest pain, chest pressure, palpitations. Endocrine: See HPI Psychiatric: Endorses depression and anxiety. Denies SI/HI. Physical exam: Constitutional: Alert, in no distress. Neck: Supple, Full range of motion. No lymphadenopathy. No palpable thyroid masses. Respiratory: Clear to auscultation. Cardiovascular: S1 S2 regular. No murmurs. Psychiatric: Normal mood and affect Right foot: Warm and well perfused. No clubbing, cyanosis or edema. Intact DP pulse. Decreased vibratory sensation. Decreased sensation to monofilament. No open wounds. Left foot: Warm and well perfused. No clubbing, cyanosis or edema. Intact DP pulse. Decreased vibratory sensation. Decreased sensation to monofilament. No open wounds. Callus on the plantar surface of the toe and ball of the foot. [facility] Medical History (Updated 09/09/24 @ 14:05 by GHULAM Jean) Noncompliance Callus of foot Diabetic polyneuropathy Food insecurity Uncontrolled type 2 diabetes mellitus with hyperglycemia Tachycardia Type 2 diabetes mellitus with hyperglycemia Paroxysmal atrial fibrillation Morbid obesity Substance abuse Essential hypertension Cocaine abuse Erectile dysfunction Polysubstance abuse Paroxysmal atrial fibrillation with rapid ventricular response Lumbar degenerative disc disease Substance abuse Diabetes Depression Overactive bladder Arthritis BPH (benign prostatic hyperplasia) Asthma Seizure Morbid obesity with BMI of 40.0-44.9, adult Benign essential hypertension Insomnia Primary osteoarthritis of both knees Anxiety Family history of thyroid disorder Surgical History No history of previous surgery Family History Father ETOH abuse Mother Diabetes Arthritis of knee Hypertension Other Mental health problem Substance abuse Social History Household Members: Friend(s) Household Members Other:: rents a room in a house Housing: House Housing Other:: rents a room Alcohol intake: current Alcohol intake frequency: does not drink Comment: patient refused Patient Tobacco Use Status: Never used Tobacco e-Cigarette/Vaping Use: Never Used Second Hand Smoke Exposure: No Substance Use Type: Marijuana and Opiates Advance Directives Date on File: 02/23/22 service: No Current occupational status: unemployed and disabled Sexual orientation: Straight/Heterosexual Cognitive needs: No Hearing needs: No Vision needs: No Physical Exam Vital Signs: Last Vital Signs Pulse 78 09/09/24 13:18 BP 140/80 H 09/09/24 13:18 Pulse Ox 98 09/09/24 13:18 Oxygen Delivery Method Room Air 09/09/24 13:18 BMI result Body Mass Index 43.4 Results AMB Hemoglobin A1c AMB Hemoglobin A1c 9.5 % Last Edit by CHINA Woo on 09/09/24 13:32 Results Reviewed Results Reviewed: Laboratory Last Values Glucose (Clinic) 210 mg/dL (60-115) H 09/09/24 13:23 Hgb A1c (Clinic) 9.5 % (4.0-6.0) H 09/09/24 13:27 Laboratory Tests 08/16/23 03/13/24 03/13/24 15:23 15:41 15:49 Plt Count Creatinine Estimated GFR Hgb A1c (Clinic) AST ALT Triglycerides 200 H Cholesterol 150 LDL Cholesterol, Calc 69 HDL Cholesterol 41 Vitamin B12 626 TSH 1.14 Urine Creatinine 103.05 Urine Microalbumin 27.0 Microalb/Creat Ratio 26.2 06/13/24 06/25/24 14:42 19:04 Plt Count 253 Creatinine 1.00 Estimated GFR > 60 Hgb A1c (Clinic) 10.3 H AST 24 ALT 28 Triglycerides Cholesterol LDL Cholesterol, Calc HDL Cholesterol Vitamin B12 TSH Urine Creatinine Urine Microalbumin Microalb/Creat Ratio Assessment & Plan Assessment & Plan (1) Uncontrolled type 2 diabetes mellitus with hyperglycemia: Code(s): E11.65 - Type 2 diabetes mellitus with hyperglycemia Category: Medical (2) Diabetic polyneuropathy: Code(s): E11.42 - Type 2 diabetes mellitus with diabetic polyneuropathy Category: Medical Qualifiers: Diabetes mellitus type: type 2 Qualified Code(s): E11.42 - Type 2 diabetes mellitus with diabetic polyneuropathy (3) Polysubstance abuse: Code(s): F19.10 - Other psychoactive substance abuse, uncomplicated Category: Medical (4) Noncompliance: Code(s): Z91.199 - Patient's noncompliance with other medical treatment and regimen due to unspecified reason Category: Medical Plan In summary this is a 54-year-old male with uncontrolled type 2 diabetes. Treatment complicated by polysubstance abuse and noncompliance. Continue Tresiba to 90 units daily Start Humalog (short acting insulin) 4 units three times daily before meals Continue Januvia to 100 mg daily Continue Ozempic 2 mg weekly Continue Metformin extended release 2000 mg daily If you experience low blood sugar, treat this by eating a chewable fruit candy like skittles or jelly beans (about 8 pieces), 4 ounces (1/2 cup) of fruit juice (not diet), 1 tablespoon of honey or 4 glucose tablets. If your blood sugar is under 55, take double the amount of one of the above. Recheck your blood sugar in 15 minutes. Reminded him to bring his CGM or glucometer to all appointments. Referred to podiatry. Reminded to schedule diabetic eye exam. Follow up in 4 weeks for Type II diabetes. Orders: Orders AMB Hemoglobin A1c Today E11.65 - Type 2 diabetes mellitus with hyperglycemia Referrals Podiatry Referral E11.42 - Type 2 diabetes mellitus with diabetic polyneuropathy, L84 - Corns and callosities Medications: New lancets (FreeStyle Lancets) Use to monitor blood glucose 4 times daily. 200 ea 5RF Patient Instructions: Continue Tresiba to 90 units daily Start Humalog (short acting insulin) 4 units three times daily 15 MINUTES before meals Continue Januvia to 100 mg daily Continue Ozempic 2 mg weekly Continue Metformin extended release 2000 mg daily Coding Level of Care Code Est Pt Level 4 (83480) Complex EM visit Add On G2211 Diagnoses Uncontrolled type 2 diabetes mellitus with hyperglycemia E11.65 Diabetic polyneuropathy associated with type 2 diabetes mellitus E11.42 Diabetes mellitus type: type 2 Polysubstance abuse F19.10 Noncompliance Z91.199
[2024-09-09 13:27] LABS: Glucose, Whole Blood 210 mg/dL (60-115)
--- OUTSIDE RECORDS SUMMARY | 2024-09-09 14:07 | XMS_ITS | Clinical Summary ---
Author Organization [facility] ity Address [address] [place] [address] Care Team Providers Care Carpet Cleaning Technician Name Role Phone Unavailable Primary Care Provider [...] 2023-2 5 season) 2023 Influenza Vaccine (#1) 2024 HIB Vaccines Aged Out No longer [...]
--- OUTSIDE RECORDS SUMMARY | 2024-09-09 14:07 | XMS_ITS | Clinical Summary ---
Author Organization [facility] Address [address] [place] [address] Care Team Providers Care Yarn Dry Room Worker Name Role Phone Julio Carter MD Primary Care Provider [phone] Allergies No known active allergies Medications insulin glargine, BASAGLAR KWIKPEN, 100 UNIT/ML pen injectionIndicati ons:Type 2 diabetes mellitus without complication, with long-term current use of insulin ([facility]) Inject 30 Units under the skin [...] complication, with long-term current use of insulin ([facility]) Inject 0.75 mg under the skin once a week. Every sunday 2 mL 1 Active amLODIPine (NORVASC) 5 MG tabletIndications :Type 2 diabetes mellitus without complication, with long-term current use of insulin ([facility]),Essential hypertension Take 1 tablet (5 mg total) by mouth daily. 30 tablet 1 Active lisinopril (PRINIVIL,ZeSTRIL ) 30 MG tabletIndications :Type 2 diabetes mellitus without complication, with long-term current use of insulin ([facility]),Essential hypertension Take 1 tablet (30 mg total) by mouth daily. 30 tablet 1 Active metoPROLOL TARTRATE (LOPRESSOR) 50 MG tabletIndications :Paroxysmal atrial fibrillation (HCC),Type 2 diabetes mellitus without complication, with long-term current use of insulin ([facility]),Essential hypertension Take 1 tablet (50 mg total) by mouth every 12 (twelve) hours around the clock. 60 tablet 1 Active busPIRone (BUSPAR) 30 MG tabletIndications :Suicidal behavior without attempted self-injury,Type 2 diabetes mellitus without complication, with long-term current use of insulin ([facility]) Take 1 tablet (30 mg total) by mouth 3 (three) times a day. 90 tablet 1 Active traMADol (ULTRAM) 50 MG tabletIndications :Type 2 diabetes mellitus without complication, with long-term current use of insulin ([facility]) Take 1 tablet (50 mg total) by mouth 3 (three) times a day as needed for moderate pain or severe pain. For pain 15 tablet 1 Active albuterol (PROVENTIL HFA; VENTOLIN HFA) 108 (90 Base) MCG/ACT inhalerIndication s:Type 2 diabetes mellitus without complication, with long-term current use of insulin ([facility]) Inhale 2 puffs 4 times daily (every 6 hours) as needed for wheezing or shortness of breath. 1 Inhaler 1 Active hydrOXYzine HCl (ATARAX) 25 MG tabletIndications :Type 2 diabetes mellitus without complication, with long-term current use of insulin ([facility]) Take 1 tablet (25 mg total) by mouth 3 (three) times a day as needed for itching or anxiety. 30 tablet 1 Active escitalopram (LEXAPRO) 20 MG tabletIndications :Type 2 diabetes mellitus without complication, with long-term current use of insulin ([facility]) Take 1 tablet (20 mg total) by mouth daily. 30 tablet 1 Active apixaban (ELIQUIS) 5 MG tabletIndications :Paroxysmal atrial fibrillation (HCC),Type 2 diabetes mellitus without complication, with long-term current use of insulin ([facility]) Take 1 tablet (5 mg total) by mouth every 12 (twelve) hours around the clock. 60 tablet 1 Active ALPRAZolam (XANAX) 2 MG tabletIndications :Suicidal behavior without attempted self-injury,Type 2 diabetes mellitus without complication, with long-term current use of insulin ([facility]) Take 1 tablet (2 mg total) by mouth nightly as needed for anxiety. 5 tablet 1 Active lidocaine (LIDODERM) 5 % patchIndications: Type 2 diabetes mellitus without complication, with long-term current use of insulin ([facility]) Place 1 patch on the skin daily. Apply patch and leave on for 12 hours then remove. Patch may remain on skin for 12 hours per day. 30 patch 1 Active diclofenac (VOLTAREN) 1 % gelIndications:Ty pe 2 diabetes mellitus without complication, with long-term current use of insulin ([facility]) Apply 2 g topically 2 (two) times a day as needed for pain or muscle/joint pain. 100 g 1 Active FREESTYLE LITE stripIndications: Type 2 diabetes mellitus without complication, with long-term current use of insulin ([facility]) 100 test strips by Other (specify) route 3 (three) times a day before meals. Use as instructed 100 test strip 1 Active tamsulosin (FLOMAX) 0.4 MG capsuleIndication s:Type 2 diabetes mellitus without complication, with long-term current use of insulin ([facility]) Take 1 capsule (0.4 mg total) by mouth daily. 30 capsule 1 Active B-D ULTRAFINE III SHORT PEN 31G X 8 MM MiscIndications:T ype 2 diabetes mellitus without complication, with long-term current use of insulin ([facility]) Check blood glucose at least 3 times daily and once in the morning fasting. For diabetes mellitus ICD E 11.9 50 pen needle 1 Active Insulin Pen Needle 31G X 8 MM MiscIndications:T ype 2 diabetes mellitus without complication, with long-term current use of insulin ([facility]) Check blood glucose at least 3 times daily and once in the morning fasting. For diabetes mellitus ICD E 11.9 50 pen needle 1 Active Blood Glucose Monitoring Suppl (FreeStyle Lite) DeviceIndications :Type 2 diabetes mellitus without complication, with long-term current use of insulin ([facility]) Check blood glucose at least 3 times daily and once in the morning fasting. For diabetes mellitus ICD E 11.9 1 Device 1 Active FREESTYLE LITE stripIndications: Type 2 diabetes mellitus without complication, with long-term current use of insulin ([facility]) Check blood glucose at least 3 times daily and once in the morning fasting. For diabetes mellitus ICD E 11.9 100 test strip 1 Active FreeStyle Lancets lancetIndications :Type 2 diabetes mellitus without complication, with long-term current use of insulin ([facility]) Check blood glucose at least 3 [...] 73 04/07/2020 8:07 AM EST Temperature 36.3 C (97.3 F) 04/07/2020 2:30 AM EST Respiratory Rate 18 04/07/2020 2:30 AM EST [...] Zoster (Shingles) Vaccine (1 of 2) 2022 COVID-19 Vaccine ( - 2023-2 5 season) 2023 Influenza Vaccine 10/10/2024 Procedures Procedure Name Priority Date/Time Associated Diagnosis [...] Health Maintenance Insurance MEDICAID OUT OF STATE [facility] Advance Directives * Full Code (Latest Code Status on File) Date Activated Date Inactivated Comments 04/02/2020 7:54 PM Healthcare Agents on File Name Relationship Healthcare Agent Relationshi p Communication Fang Shaan Parent 4. Next of Kin ( Spouse, Adult Child, Parent, Adult Sibling, Grandparent) Care Teams Yarn Dry Room Worker Relationship Specialty Start Date End Date Julio Carter MD [address] [place] [address] [address] [place] [address] PCP - General Internal Medicine 04/02/20
--- OUTSIDE RECORDS SUMMARY | 2024-09-09 14:07 | XMS_ITS | Encounter Summary ---
Author Organization [facility] Address [address] [place] [address] Care Team Providers Care Networking Engineer Name Role Phone Unavailable Primary Care Provider Unavailabl e Reason for Visit * Reason Onset Date Comments medication 07/12/2022 Appointment 07/12/2022 Encounter Details Date Type Department Care Team (Late st Contact Info) Description 07/12/2022 Telephone [facility] [address] [place] [address] Storm Maciel DDS [address] [place] [address] medication; Appointment Social History Tobacco Use Types [...] anbesol and oragel are also not working. documented in this encounter Plan of Treatment Not on file documented as of this encounter Visit Diagnoses Not on filedocumented in this encounter
== END 2024-09-09 14:14 | disposition home or self-care (01) ==
LOC: HO.ENCR 13:07
PROVIDERS: PCP Internal Medicine; Visit Provider Physician Assistant Medical
DX: E11.65 Type 2 diabetes mellitus with hyperglycemia (principal); E11.42 Type 2 diabetes mellitus with diabetic polyneuropathy; F19.10 Other psychoactive substance abuse, uncomplicated; Z91.199 Patient's noncompliance with other medical treatment and regimen due to unspecified reason

== ENCOUNTER → 2024-09-09 13:06 | Outpatient (BNVA) | payer OTHER, SELFPAY | PROVIDERS: PCP Internal Medicine; Visit Provider Physician Assistant Medical | DX: E11.65 Type 2 diabetes mellitus with hyperglycemia (principal); E11.42 Type 2 diabetes mellitus with diabetic polyneuropathy; F19.10 Other psychoactive substance abuse, uncomplicated; Z91.199 Patient's noncompliance with other medical treatment and regimen due to unspecified reason; L84 Corns and callosities | CPT/HCPCS: 82947; 83036; 99212 ==

== ENCOUNTER 2024-10-23 23:33 | Emergency (ER) | payer OTHER, SELFPAY ==
[2024-10-24 00:09] VITALS: BP 130/60; PULSE 87; RESP 20; TEMP 37.1; O2SAT 97; BMI 43.9
--- OUTSIDE RECORDS SUMMARY | 2024-10-24 03:24 | XMS_ITS | Clinical Summary ---
Author Organization [facility] Address [address] [place] [id number] Care Team Providers Care [employer] Technology Teacher Name Role Phone Julio Carter MD Primary Care Provider [phone]- [phone] Allergies No known active allergies Medications insulin glargine, BASAGLAR KWIKPEN, 100 UNIT/ML pen injectionIndicati ons:Type 2 diabetes mellitus without complication, with long-term current use of insulin ([facility]) Inject 30 Units under the [...] long-term current use of insulin ([facility]) Inject 0.75 mg under the skin once a week. Every sunday 2 mL 1 Active amLODIPine (NORVASC) 5 MG tabletIndications :Type 2 diabetes mellitus without complication, with long-term current use of insulin ([facility]),Essential hypertension Take 1 tablet (5 mg total) by mouth daily. 30 tablet 1 Active lisinopril (PRINIVIL,ZeSTRIL ) 30 MG tabletIndications :Type 2 diabetes mellitus without complication, with long-term current use of insulin ([facility]),Essential hypertension Take 1 tablet (30 mg total) by mouth daily. 30 tablet 1 Active metoPROLOL TARTRATE (LOPRESSOR) 50 MG tabletIndications :Paroxysmal atrial fibrillation (HCC),Type 2 diabetes mellitus without complication, with long-term current use of insulin ([facility]),Essential hypertension Take 1 tablet (50 mg total) by mouth every 12 (twelve) hours around the clock. 60 tablet 1 Active busPIRone (BUSPAR) 30 MG tabletIndications :Suicidal behavior without attempted self-injury,Type 2 diabetes mellitus without complication, with long-term current use of insulin ([facility]) Take 1 tablet (30 mg total) by mouth 3 (three) times a day. 90 tablet 1 Active traMADol (ULTRAM) 50 MG tabletIndications :Type 2 diabetes mellitus without complication, with long-term current use of insulin ([facility]) Take 1 tablet (50 mg total) by mouth 3 (three) times a day as needed for moderate pain or severe pain. For pain 15 tablet 1 Active albuterol (PROVENTIL HFA; VENTOLIN HFA) 108 (90 Base) MCG/ACT inhalerIndication s:Type 2 diabetes mellitus without complication, with long-term current use of insulin ([facility]) Inhale 2 puffs 4 times daily (every 6 hours) as needed for wheezing or shortness of breath. 1 Inhaler 1 Active hydrOXYzine HCl (ATARAX) 25 MG tabletIndications :Type 2 diabetes mellitus without complication, with long-term current use of insulin ([facility]) Take 1 tablet (25 mg total) by mouth 3 (three) times a day as needed for itching or anxiety. 30 tablet 1 Active escitalopram (LEXAPRO) 20 MG tabletIndications :Type 2 diabetes mellitus without complication, with long-term current use of insulin ([facility]) Take 1 tablet (20 mg total) by mouth daily. 30 tablet 1 Active apixaban (ELIQUIS) 5 MG tabletIndications :Paroxysmal atrial fibrillation (HCC),Type 2 diabetes mellitus without complication, with long-term current use of insulin ([facility]) Take 1 tablet (5 mg total) by mouth every 12 (twelve) hours around the clock. 60 tablet 1 Active ALPRAZolam (XANAX) 2 MG tabletIndications :Suicidal behavior without attempted self-injury,Type 2 diabetes mellitus without complication, with long-term current use of insulin ([facility]) Take 1 tablet (2 mg total) by mouth nightly as needed for anxiety. 5 tablet 1 Active lidocaine (LIDODERM) 5 % patchIndications: Type 2 diabetes mellitus without complication, with long-term current use of insulin ([facility]) Place 1 patch on the skin daily. Apply patch and leave on for 12 hours then remove. Patch may remain on skin for 12 hours per day. 30 patch 1 Active diclofenac (VOLTAREN) 1 % gelIndications:Ty pe 2 diabetes mellitus without complication, with long-term current use of insulin ([facility]) Apply 2 g topically 2 (two) times a day as needed for pain or muscle/joint pain. 100 g 1 Active FREESTYLE LITE stripIndications: Type 2 diabetes mellitus without complication, with long-term current use of insulin ([facility]) 100 test strips by Other (specify) route 3 (three) times a day before meals. Use as instructed 100 test strip 1 Active tamsulosin (FLOMAX) 0.4 MG capsuleIndication s:Type 2 diabetes mellitus without complication, with long-term current use of insulin ([facility]) Take 1 capsule (0.4 mg total) by mouth daily. 30 capsule 1 Active B-D ULTRAFINE III SHORT PEN 31G X 8 MM MiscIndications:T ype 2 diabetes mellitus without complication, with long-term current use of insulin ([facility]) Check blood glucose at least 3 times daily and once in the morning fasting. For diabetes mellitus ICD E 11.9 50 pen needle 1 Active Insulin Pen Needle 31G X 8 MM MiscIndications:T ype 2 diabetes mellitus without complication, with long-term current use of insulin ([facility]) Check blood glucose at least 3 times daily and once in the morning fasting. For diabetes mellitus ICD E 11.9 50 pen needle 1 Active Blood Glucose Monitoring Suppl (FreeStyle Lite) DeviceIndications :Type 2 diabetes mellitus without complication, with long-term current use of insulin ([facility]) Check blood glucose at least 3 times daily and once in the morning fasting. For diabetes mellitus ICD E 11.9 1 Device 1 Active FREESTYLE LITE stripIndications: Type 2 diabetes mellitus without complication, with long-term current use of insulin ([facility]) Check blood glucose at least 3 times daily and once in the morning fasting. For diabetes mellitus ICD E 11.9 100 test strip 1 Active FreeStyle Lancets lancetIndications :Type 2 diabetes mellitus without complication, with long-term current use of insulin ([facility]) Check blood glucose at least [...] Health Maintenance Insurance MEDICAID OUT OF STATE [facility] Advance Directives * Full Code (Latest Code Status on File) Date Activated Date Inactivated Comments 04/02/2020 7:54 PM Healthcare Agents on File Name Relationship Healthcare Agent Relationshi p Communication Fang Shaan Parent 4. Next of Kin ( Spouse, Adult Child, Parent, Adult Sibling, Grandparent) Care Teams Middle [employer] Technology Teacher Relationship Specialty Start Date End Date Julio Carter MD [address] [place] [address] [address] [place] [address] PCP - General Internal Medicine 04/02/20
--- OUTSIDE RECORDS SUMMARY | 2024-10-24 03:24 | XMS_ITS | Clinical Summary ---
Author Organization [address] [facility] Address [address] [place] [address] Phone Care Team Providers Care Triage Nurse Name Role Phone Julio Carter MD Primary Care Provider [phone] Social History Tobacco Use Types Packs/Day Years Used Date Smoking Tobacco: Never Assessed Sex and Gender Information Value Date Recorded Sex Assigned at Not on file Legal Sex Male 5:41 AM EST Gender Identity Not on file Sexual Orientation Not on file Plan of Treatment Health Maintenance Due Date Last Done Comments Diabetes: Annual GFR (Glomer ular Filtration Rate) 1972 Diabetes: Annual Foot Exam 1982 Diabetes: Annual Retina Eye Exam 1982 DTaP,Tdap,and Td Vaccines (1 - Tdap) 05/27/1991 Hepatitis B Vaccines (1 of 3 - 19+ 3-dose series) 05/27/1991 Pneumococcal Vaccine: 50+ Ye ars (1 of 2 - PCV) 05/27/1991 Zoster Vaccines (1 of 2) 2022 COVID-19 Vaccine ( - 2023-2 5 season) 2023 Depression Screening 03/12/2024 Cholesterol Screening (Lipid Panel) 09/16/2024 Colorectal Cancer Screening: Colonoscopy 09/16/2024 Diabetes: Annual Urine Albumin-Creatinine Ratio (uACR) 09/16/2024 Diabetes: Blood Sugar Contro l Test (HGBA1C) 09/16/2024 HIV Screening 09/16/2024 Hepatitis C Screening 09/16/2024 Social Influencers of Health Screening 09/16/2024 Influenza Vaccine (#1) 2024 HIB Vaccines Aged [...] patient's age to complete this topic Insurance [facility] Care Teams Triage Nurse Relationship Specialty Start Date End Date Julio Carter MD [address] [place] [address] [address] [place], [place] PCP - General Internal Medicine 09/16/24
--- OUTSIDE RECORDS SUMMARY | 2024-10-24 03:24 | XMS_ITS | Encounter Summary ---
Author Organization [facility] Address [address] [place] [address] Care Team Providers Care Barrel Washer Machine Name Role Phone Unavailable Primary Care Provider Unavailabl e Reason for Visit * Reason Onset Date Comments medication 07/12/2022 Appointment 07/12/2022 Encounter Details Date Type Department Care Team (Late st Contact Info) Description 07/12/2022 Telephone [facility] [address] [place] [address] Storm Maciel DDS [address] [place] [address] medication; Appointment Social History Tobacco Use Types [...]
== END 2024-10-24 03:39 | disposition left against medical advice (07) ==
PROVIDERS: Emergency Provider Emergency Medicine
DX: L02.411 Cutaneous abscess of right axilla (principal)
CPT/HCPCS: 82947; 99212; 99281

== ENCOUNTER 2024-10-24 13:15 | Outpatient (AMB) | payer OTHER, SELFPAY ==
--- NOTE | 2024-10-24 13:18 | A.OFFVIS_ITS ---
Vital Signs 10/24/24 13:19 Height 5 ft 11 in Weight 311 lb 15.265 oz BMI 43.5 BP 142/82 H Blood Pressure Location Rt brachial Position Sitting Pulse 75 Pulse Source Pulse Oximeter Pulse Oximetry (%) 98 Oxygen Delivery Method Room Air Intake Visit Reasons: Type II diabetes Intake Note: Patient present today to follow up on Type 2 Diabetes Mellitus. Last Diabetic Eye exam: Due, has an appointment for next year 2025. 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 Hemoglobin A1c 9.5% 09/09/2024 down from 13.9% 03/13/2024. He does not have a glucometer today. Current medications: Ozempic 2 mg weekly, Tresiba 90 units nightly, metformin ER 2000 mg daily, Januvia 100 mg and Humalog 4 units TID before meals. Past medications: Lantus discontinued SGLT2 not prescribed-history of balanitis Compliance issues: He did not start Humalog, but he says that he is taking his other medications more consistently. Did not take Metformin or Januvia today. POC 338. He doesn't follow a diabetic diet. Patient receives meals on wheels. Endorses polyuria, polydipsia Denies any hypoglycemic events. Complications: Neuropathy ROS: Constitutional: No fevers or chills. Eyes: No vision changes, blurry vision, double vision Respiratory: No shortness of breath, cough or sputum production. Cardiovascular: No chest pain, chest pressure, palpitations. Endocrine: See HPI Psychiatric: Endorses depression and anxiety. Denies SI/HI. Physical exam: Constitutional: Alert, in no distress. Neck: Supple, Full range of motion. No lymphadenopathy. No palpable thyroid masses. Respiratory: Clear to auscultation. Cardiovascular: S1 S2 regular. No murmurs. Psychiatric: Normal mood and affect [facility] Medical History (Updated 09/09/24 @ 14:05 by GHULAM Jean) Noncompliance Callus of foot Diabetic polyneuropathy Food insecurity Uncontrolled type 2 diabetes mellitus with hyperglycemia Tachycardia Type 2 diabetes mellitus with hyperglycemia Paroxysmal atrial fibrillation Morbid obesity Substance abuse Essential hypertension Cocaine abuse Erectile dysfunction Polysubstance abuse Paroxysmal atrial fibrillation with rapid ventricular response Lumbar degenerative disc disease Substance abuse Diabetes Depression Overactive bladder Arthritis BPH (benign prostatic hyperplasia) Asthma Seizure Morbid obesity with BMI of 40.0-44.9, adult Benign essential hypertension Insomnia Primary osteoarthritis of both knees Anxiety Family history of thyroid disorder Surgical History No history of previous surgery Family History Father ETOH abuse Mother Diabetes Arthritis of knee Hypertension Other Mental health problem Substance abuse Social History Household Members: Friend(s) Household Members Other:: rents a room in a house Housing: House Housing Other:: rents a room Alcohol intake: current Alcohol intake frequency: does not drink Comment: patient refused Patient Tobacco Use Status: Never used Tobacco e-Cigarette/Vaping Use: Never Used Second Hand Smoke Exposure: No Substance Use Type: Marijuana and Opiates Advance Directives Date on File: 02/23/22 service: No Current occupational status: unemployed and disabled Sexual orientation: Straight/Heterosexual Cognitive needs: No Hearing needs: No Vision needs: No Physical Exam Vital Signs: Last Vital Signs Pulse 75 10/24/24 13:19 BP 142/82 H 10/24/24 13:19 Pulse Ox 98 10/24/24 13:19 Oxygen Delivery Method Room Air 10/24/24 13:19 BMI result Body Mass Index 43.5 Results Reviewed Results Reviewed: Laboratory Last Values Glucose (Clinic) 338 mg/dL (60-115) H 10/24/24 13:25 Laboratory Tests 08/16/23 03/13/24 03/13/24 15:23 15:41 15:49 Plt Count Creatinine Estimated GFR Hgb A1c (Clinic) AST ALT Triglycerides 200 H Cholesterol 150 LDL Cholesterol, Calc 69 HDL Cholesterol 41 Vitamin B12 626 TSH 1.14 Urine Creatinine 103.05 Urine Microalbumin 27.0 Microalb/Creat Ratio 26.2 06/13/24 06/25/24 14:42 19:04 Plt Count 253 Creatinine 1.00 Estimated GFR > 60 Hgb A1c (Clinic) 10.3 H AST 24 ALT 28 Triglycerides Cholesterol LDL Cholesterol, Calc HDL Cholesterol Vitamin B12 TSH Urine Creatinine Urine Microalbumin Microalb/Creat Ratio Assessment & Plan Assessment & Plan (1) Uncontrolled type 2 diabetes mellitus with hyperglycemia: Code(s): E11.65 - Type 2 diabetes mellitus with hyperglycemia Category: Medical (2) Diabetic polyneuropathy: Code(s): E11.42 - Type 2 diabetes mellitus with diabetic polyneuropathy Category: Medical Qualifiers: Diabetes mellitus type: type 2 Qualified Code(s): E11.42 - Type 2 diab etes mellitus with diabetic polyneuropathy (3) Polysubstance abuse: Code(s): F19.10 - Other psychoactive substance abuse, uncomplicated Category: Medical (4) Noncompliance: Code(s): Z91.199 - Patient's noncompliance with other medical treatment and regimen due to unspecified reason Category: Medical Plan In summary this is a 54-year-old male with uncontrolled type 2 diabetes. Treatment complicated by polysubstance abuse and noncompliance. Continue Tresiba to 90 units daily Start Humalog (short acting insulin) 4 units three times daily before meals Continue Januvia to 100 mg daily Continue Ozempic 2 mg weekly Continue Metformin extended release 2000 mg daily If you experience low blood sugar, treat this by eating a chewable fruit candy like skittles or jelly beans (about 8 pieces), 4 ounces (1/2 cup) of fruit juice (not diet), 1 tablespoon of honey or 4 glucose tablets. If your blood sugar is under 55, take double the amount of one of the above. Recheck your blood sugar in 15 minutes. Reminded him to bring his CGM or glucometer to all appointments. Reminded to schedule diabetic eye exam. Follow up in 6 weeks for Type II diabetes. I reminded him to have blood work done prior to his next visit. Orders: Orders Lipid Panel Today E11.65 - Type 2 diabetes mellitus with hyperglycemia, E78.5 - Hyperlipidemia, unspecified Creatinine Today E11.65 - Type 2 diabetes mellitus with hyperglycemia, E11.9 - Type 2 diabetes mellitus without complications Hemoglobin A1c Today E11.65 - Type 2 diabetes mellitus with hyperglycemia, R73.9 - Hyperglycemia, unspecified Aspartate Amino Transferase Today E11.65 - Type 2 diabetes mellitus with hyperglycemia Vitamin B12 Today E11.65 - Type 2 diabetes mellitus with hyperglycemia, Z91.89 - Other specified personal risk factors, not elsewhere classified Alanine Aminotransferase Today E11.65 - Type 2 diabetes mellitus with hyperglycemia Medications: Refilled insulin lispro (Humalog KwikPen (U-100) Insulin) Administer three times daily 15 minutes before meals 4 units (0.04 mL) subcut TID 15 mL 3RF insulin degludec (Tresiba FlexTouch U-200 insulin) 90 units (0.45 mL) subcut BEDTIME 12 mL 5RF semaglutide (Ozempic) 2 mg (0.75 mL) subcut QWEEK 3 mL 5RF Patient Instructions: Continue Tresiba to 90 units daily Take Humalog (short acting insulin) 4 units three times daily before meals Continue Januvia to 100 mg daily Continue Ozempic 2 mg weekly Continue Metformin extended release 2000 mg daily If you experience low blood sugar, treat this by eating a chewable fruit candy like skittles or jelly beans (about 8 pieces), 4 ounces (1/2 cup) of fruit juice (not diet), 1 tablespoon of honey or 4 glucose tablets. If your blood sugar is under 50, take double the amount of one of the above. Recheck your blood sugar in 15 minutes. Please have blood work done a week before our next visit. Coding Level of Care Code Est Pt Level 4 (90949) Complex EM visit Add On G2211 Diagnoses Uncontrolled type 2 diabetes mellitus with hyperglycemia E11.65 Diabetic polyneuropathy associated with type 2 diabetes mellitus E11.42 Diabetes mellitus type: type 2 Polysubstance abuse F19.10 Noncompliance Z91.199
--- OUTSIDE RECORDS SUMMARY | 2024-10-24 13:18 | XMS_ITS | Encounter Summary ---
Author Organization [facility] Address [address] [place] [address] Care Team Providers Care Mother Tester Name Role Phone Unavailable Primary Care Provider Unavailabl e Reason for Visit * Reason Onset Date Comments medication 07/12/2022 Appointment 07/12/2022 Encounter Details Date Type Department Care Team (Late st Contact Info) Description 07/12/2022 Telephone [facility] [address] [place] [address] Storm Maciel DDS [address] [place] [address] medication; Appointment Social History Tobacco Use Types [...]
--- OUTSIDE RECORDS SUMMARY | 2024-10-24 13:18 | XMS_ITS | Clinical Summary ---
Author Organization [facility] Address [address] [place] [id number] Care Team Providers Care Regulator Operator Name Role Phone Julio Carter MD Primary Care Provider [phone] Allergies No known active allergies Medications insulin glargine, BASAGLAR KWIKPEN, 100 UNIT/ML pen injectionIndicati ons:Type 2 diabetes mellitus without complication, with long-term current use of insulin ([facility]) Inject 30 Units under the skin nightly. 15 mL 1 Active metFORMIN (GLUCOPHAGE) 1000 MG tabletIndications :Type 2 diabetes mellitus without complication, with long-term current use of insulin (HCC) Take 1 tablet (1,000 mg total) by mouth 2 (two) times a day. 60 tablet 1 Active Trulicity 0.75 MG/0.5ML subcutaneous injectionIndicati ons:Type 2 diabetes mellitus without complication, with long-term current use of insulin ([facility]) Inject 0.75 mg under the skin once a week. Every sunday 2 mL 1 Active amLODIPine (NORVASC) 5 MG tabletIndications :Type 2 diabetes mellitus without complication, with long-term current use of insulin ([facility]),Essential hypertension Take 1 tablet (5 mg total) by mouth daily. 30 tablet 1 Active lisinopril (PRINIVIL,ZeSTRIL ) 30 MG tabletIndications :Type 2 diabetes mellitus without complication, with long-term current use of insulin ([facility]),Essential hypertension Take 1 tablet (30 mg total) by mouth daily. 30 tablet 1 Active metoPROLOL TARTRATE (LOPRESSOR) 50 MG tabletIndications :Paroxysmal atrial fibrillation (HCC),Type 2 diabetes mellitus without complication, with long-term current use of insulin ([facility]),Essential hypertension Take 1 tablet (50 mg total) by mouth every 12 (twelve) hours around the clock. 60 tablet 1 Active busPIRone (BUSPAR) 30 MG tabletIndications :Suicidal behavior without attempted self-injury,Type 2 diabetes mellitus without complication, with long-term current use of insulin ([facility]) Take 1 tablet (30 mg total) by mouth 3 (three) times a day. 90 tablet 1 Active traMADol (ULTRAM) 50 MG tabletIndications :Type 2 diabetes mellitus without complication, with long-term current use of insulin ([facility]) Take 1 tablet (50 mg total) by mouth 3 (three) times a day as needed for moderate pain or severe pain. For pain 15 tablet 1 Active albuterol (PROVENTIL HFA; VENTOLIN HFA) 108 (90 Base) MCG/ACT inhalerIndication s:Type 2 diabetes mellitus without complication, with long-term current use of insulin ([facility]) Inhale 2 puffs 4 times daily (every 6 hours) as needed for wheezing or shortness of breath. 1 Inhaler 1 Active hydrOXYzine HCl (ATARAX) 25 MG tabletIndications :Type 2 diabetes mellitus without complication, with long-term current use of insulin ([facility]) Take 1 tablet (25 mg total) by mouth 3 (three) times a day as needed for itching or anxiety. 30 tablet 1 Active escitalopram (LEXAPRO) 20 MG tabletIndications :Type 2 diabetes mellitus without complication, with long-term current use of insulin ([facility]) Take 1 tablet (20 mg total) by mouth daily. 30 tablet 1 Active apixaban (ELIQUIS) 5 MG tabletIndications :Paroxysmal atrial fibrillation (HCC),Type 2 diabetes mellitus without complication, with long-term current use of insulin ([facility]) Take 1 tablet (5 mg total) by mouth every 12 (twelve) hours around the clock. 60 tablet 1 Active ALPRAZolam (XANAX) 2 MG tabletIndications :Suicidal behavior without attempted self-injury,Type 2 diabetes mellitus without complication, with long-term current use of insulin ([facility]) Take 1 tablet (2 mg total) by mouth nightly as needed for anxiety. 5 tablet 1 Active lidocaine (LIDODERM) 5 % patchIndications: Type 2 diabetes mellitus without complication, with long-term current use of insulin ([facility]) Place 1 patch on the skin daily. Apply patch and leave on for 12 hours then remove. Patch may remain on skin for 12 hours per day. 30 patch 1 Active diclofenac (VOLTAREN) 1 % gelIndications:Ty pe 2 diabetes mellitus without complication, with long-term current use of insulin ([facility]) Apply 2 g topically 2 (two) times a day as needed for pain or muscle/joint pain. 100 g 1 Active FREESTYLE LITE stripIndications: Type 2 diabetes mellitus without complication, with long-term current use of insulin ([facility]) 100 test strips by Other (specify) route 3 (three) times a day before meals. Use as instructed 100 test strip 1 Active tamsulosin (FLOMAX) 0.4 MG capsuleIndication s:Type 2 diabetes mellitus without complication, with long-term current use of insulin ([facility]) Take 1 capsule (0.4 mg total) by mouth daily. 30 capsule 1 Active B-D ULTRAFINE III SHORT PEN 31G X 8 MM MiscIndications:T ype 2 diabetes mellitus without complication, with long-term current use of insulin ([facility]) Check blood glucose at least 3 times daily and once in the morning fasting. For diabetes mellitus ICD E 11.9 50 pen needle 1 Active Insulin Pen Needle 31G X 8 MM MiscIndications:T ype 2 diabetes mellitus without complication, with long-term current use of insulin ([facility]) Check blood glucose at least 3 times daily and once in the morning fasting. For diabetes mellitus ICD E 11.9 50 pen needle 1 Active Blood Glucose Monitoring Suppl (FreeStyle Lite) DeviceIndications :Type 2 diabetes mellitus without complication, with long-term current use of insulin ([facility]) Check blood glucose at least 3 times daily and once in the morning fasting. For diabetes mellitus ICD E 11.9 1 Device 1 Active FREESTYLE LITE stripIndications: Type 2 diabetes mellitus without complication, with long-term current use of insulin ([facility]) Check blood glucose at least 3 times daily and once in the morning fasting. For diabetes mellitus ICD E 11.9 100 test strip 1 Active FreeStyle Lancets lancetIndications :Type 2 diabetes mellitus without complication, with long-term current use of insulin ([facility]) Check blood glucose at least 3 times [...] Health Maintenance Insurance MEDICAID OUT OF STATE [facility] Advance Directives * Full Code (Latest Code Status on File) Date Activated Date Inactivated Comments 04/02/2020 7:54 PM Healthcare Agents on File Name Relationship Healthcare Agent Relationshi p Communication Fang Shaan Parent 4. Next of Kin ( Spouse, Adult Child, Parent, Adult Sibling, Grandparent) Care Teams Regulator Operator Relationship Specialty Start Date End Date Julio Carter MD [address] [place] [address] [address] [place] [address] PCP - General Internal Medicine 04/02/20
--- OUTSIDE RECORDS SUMMARY | 2024-10-24 13:18 | XMS_ITS | Clinical Summary ---
Author Organization [address] [facility] Address [address] [place] [address] Phone Care Team Providers Care Plastic Fabricator Name Role Phone Julio Carter MD Primary Care Provider Social History Tobacco Use Types Packs/Day Years [...] patient's age to complete this topic Insurance [facility] Care Teams Plastic Fabricator Relationship Specialty Start Date End Date Julio Carter MD [address] [place] [address] [address] [place], [place] PCP - General Internal Medicine 09/16/24
[2024-10-24 13:19] VITALS: BP 142/82; PULSE 75; O2SAT 98; BMI 43.5
[2024-10-24 13:30] LABS: Glucose, Whole Blood 338 mg/dL (60-115)
== END 2024-10-24 13:52 | disposition home or self-care (01) ==
LOC: HO.ENCR 13:16
PROVIDERS: PCP Internal Medicine; Visit Provider Physician Assistant Medical
DX: E11.65 Type 2 diabetes mellitus with hyperglycemia (principal); E11.42 Type 2 diabetes mellitus with diabetic polyneuropathy; F19.10 Other psychoactive substance abuse, uncomplicated; Z91.199 Patient's noncompliance with other medical treatment and regimen due to unspecified reason

== ENCOUNTER 2024-10-29 12:38 | Outpatient (AMB) | payer OTHER, SELFPAY ==
--- NOTE | 2024-10-29 12:42 | MHC.PC.OV ---
Vital Signs 10/29/24 12:44 Height 5 ft 11 in Weight 304 lb 4 oz BMI 42.4 BP 180/62 H Blood Pressure Location Lt brachial Position Sitting Respiration 18 Pulse 116 H Pulse Source Pulse Oximeter Temp 97 F Temp Source Temporal Artery Scan Pulse Oximetry (%) 96 Oxygen Delivery Method Room Air Intake Visit Reasons: uncontrolled DM Apprentice Painter Neckties Required: No Accompanied by: Self / Same As Patient Allergies Penicillins (PENICILLINS) Allergy (Unknown, Verified 12/26/24 14:49) RASH dulaglutide (From [facility]) Adverse Reaction (Intermediate, Verified 12/26/24 14:49) abdominal pain, diarrhea Medication List - Last Reconciled 10/29/24 by Juilo Carter MD amiodarone 400 mg (2 x 200 mg) PO BID apixaban (Eliquis) 5 mg PO BID 30 days blood sugar diagnostic (FreeStyle Lite Strips) use 4x daily As directed to monitor blood sugars blood-glucose meter (FreeStyle Lite Meter kit) Use as directed to check glucose twice daily. blood-glucose sensor (Dexcom G7 Sensor device) As directed change every 10 days blood-glucose,peoplesoft,cont (Dexcom G7 Glue Jointer Operator) As directed blood-glucose,peoplesoft,cont (Dexcom G7 Glue Jointer Operator) DIRECTED buspirone 30 mg PO BID clotrimazole-betamethasone 1-0.05 % 1 appl topical BID PRN diltiazem HCl CD (Cardizem CD) 240 mg PO DAILY escitalopram oxalate 20 mg PO DAILY insulin degludec (Tresiba FlexTouch U-200 insulin) 90 units (0.45 mL) subcut BEDTIME insulin lispro (Humalog KwikPen (U-100) Insulin) 4 units (0.04 mL) subcut TID lancets (FreeStyle Lancets) Use to monitor blood glucose 4 times daily. lidocaine 5% 2 patches topical DAILY PRN 30 days metformin ER 2,000 mg (4 x 500 mg) PO DAILY methadone (Methadose) 20 mg (2 mL) PO DAILY@0800 metoprolol tartrate 25 mg PO BID pen needle, diabetic (BD Ultra-Fine Mini Pen Needle) USE DIRECTED ONCE DAILY [ROLLATOR As directed] semaglutide (Ozempic) 2 mg (0.75 mL) subcut QWEEK sildenafil 50 mg PO DAILY PRN sitagliptin phosphate (Januvia) 100 mg PO DAILY sodium chloride 0.65% (Saline Nasal) 2 sprays intranasal QID PRN tramadol 50 mg PO TID PRN 30 days Ventolin HFA 90 mcg/actuation (albuterol sulfate) 2 puffs inhalation Q4-6H PRN NS zolpidem 10 mg PO BEDTIME PRN Tobacco use date assessed: 10/29/24 Dental Screening Dental Screen Date: 10/29/24 Did you have a dental visit in the last 12 months?: No Did you have a dental problem in the last 6 months where you did not have access to dental care?: No Was dental information given to patient?: No HPI uncontrolled DM HPI Details Patient comes in today for his follow-up visit States that he feels okay He denies any headaches or dizziness Denies any chest pains, no increased shortness of breath No nausea/vomiting, no abdominal pain No change in bowel habits noted He was not able to get his follow up labs done prior to his appointment today - states that he will try to get these done [facility] Medical History Noncompliance Callus of foot Diabetic polyneuropathy Food insecurity Uncontrolled type 2 diabetes mellitus with hyperglycemia Tachycardia Type 2 diabetes mellitus with hyperglycemia Paroxysmal atrial fibrillation Morbid obesity Substance abuse Essential hypertension Cocaine abuse Erectile dysfunction Polysubstance abuse Paroxysmal atrial fibrillation with rapid ventricular response Lumbar degenerative disc disease Substance abuse Diabetes Depression Overactive bladder Arthritis BPH (benign prostatic hyperplasia) Asthma Seizure Morbid obesity with BMI of 40.0-44.9, adult Benign essential hypertension Insomnia Primary osteoarthritis of both knees Anxiety Family history of thyroid disorder Surgical History No history of previous surgery Family History Father ETOH abuse Mother Diabetes Arthritis of knee Hypertension Other Mental health problem Substance abuse Social History Household Members: Friend(s) Household Members Other:: rents a room in a house Housing: House Housing Other:: rents a room Alcohol intake: current Alcohol intake frequency: does not drink Comment: patient refused Patient Tobacco Use Status: Never used Tobacco e-Cigarette/Vaping Use: Never Used Second Hand Smoke Exposure: No Substance Use Type: Marijuana Advance Directives Date on File: 02/23/22 service: No Current occupational status: unemployed and disabled Sexual orientation: Straight/Heterosexual Cognitive needs: No Hearing needs: No Vision needs: No Questionnaire PHQ-9 Over the last 2 weeks, how often have you been bothered by any of the following problems? 1. Little interest or pleasure in doing things: several days 2. Feeling down, depressed, or hopeless: several days 3. Trouble falling or staying asleep, or sleeping too much: several days 4. Feeling tired or having little energy: several days 5. Poor appetite or overeating: several days 6. Feeling bad about yourself - or that you are a failure or have let yourself or your family down: several days 7. Trouble concentrating on things, such as reading the newspaper or watching television: not at all 8. Moving or speaking so slowly that other people could have noticed. Or the opposite - being so fidgety or restless that you have been moving around a lot more than usual: not at all 9. Thoughts that you would be better off or of hurting yourself in some way: not at all Total score: 6 Depression Screening Interpretation: Positive Depression Screening Follow-up: Existing condition and In treatment Depression Screening Done: Yes 14599 - PHQ-9 Billing: Yes Source: Developed by Drs. Michael Mcmanus, Penelope Pope, Cornell Snyder and colleagues, with an educational natty from [employer]. Thrive Questionnaire Date Thrive assessed: 10/29/24 I am a: Patient What is your living situation today?: I have a steady place to live Within the past 12 months, did the food you bought not last and you didn't have the money to get more?: Never true Within the past 12 months, did you worry whether your food would run out before you got money to buy more?: Never true Do you have trouble paying for medicines?: No Do you have trouble getting transportation to medical appointments?: No Do you have trouble paying your heating and electricity bill?: No Do you have trouble taking care of your child, family member or friend?: No Do you have trouble with day-to-day activities such as bathing, preparing meals, shopping, managing finances, etc.?: No Are you currently unemployed and looking for a job?: No Are you interested in more education?: No Please select the resources that you would like help with: None Currently or been in a relationship where the following occur: No concerns reported THRIVE Score: 0 AUDIT C Alcohol Use Questionnaire (AUDIT-C) 1. How often do you have a drink containing alcohol?: Monthly or less 2. How many drinks containing alcohol do you have on a typical day when you are drinking?: 1 or 2 3. How often do you have six or more drinks on one occasion?: Never Total Score: 1 Score Reviewed/Action Taken: Yes TODD-7 AMB Questionnaire TODD-7 Date TODD - 7 assessed: 10/29/24 Feeling nervous, anxious, or on edge: 0 = Not at all Not being able to stop or control worryin = Not at all Worrying too much about different things: 0 = Not at all Trouble relaxin = Not at all Being so restless that it is hard to sit still: 0 = Not at all Becoming easily annoyed or irritable: 0 = Not at all Feeling afraid as if something awful might happen: 0 = Not at all Total TODD-7 score (0-4 normal; 5-9 mild; 10-14 moderate; 15-21 severe): 0 Source: Developed by Drs. Michael Mcmanus, Penelope Pope, Cornell Snyder and colleagues, with an educational natty from [employer]. Review of Systems Const Denies chills, Reports fatigue, Denies fever(s) and Denies headache(s) ENT Denies dysphagia, Denies dizziness, Denies otalgia, Denies headache(s), Denies neck pain, Denies odynophagia and Denies sore throat Card Denies chest pain, Reports pedal edema (bilateral, on and off), Reports leg edema (bilateral, on and off), Denies palpitations and Reports dyspnea on exertion (mild) Resp Denies cough, Reports dyspnea on exertion (mild) and Denies wheezing GI Denies abdominal pain, Denies constipation, Denies dysphagia, Denies heartburn, Denies diarrhea, Denies nausea, Denies odynophagia and Denies vomiting Denies difficulty urinating, Reports erectile dysfunction, Denies dysuria, Denies nocturia and Denies urinary frequency Musc Reports back pain and Denies neck pain Skin/Breast Denies rash Neuro Denies dizziness and Denies headache(s) Endo Reports fatigue and Denies palpitations Jose/Lymph Details: increasing swelling of both lower legs and feet Aller/Immun Denies wheezing Physical exam (Primary Care) Vital Signs: Last Vital Signs Temp 97 F 10/29/24 12:44 Pulse 116 H 10/29/24 12:44 Resp 18 10/29/24 12:44 BP 180/62 H 10/29/24 12:44 Pulse Ox 96 10/29/24 12:44 Oxygen Delivery Method Room Air 10/29/24 12:44 BMI result Body Mass Index 42.4 Tobacco/Smoking Status: Tobacco use Status Tobacco use date assessed 10/29/24 10/29/24 12:53 Patient Tobacco Use Status Never used Tobacco 10/29/24 12:53 e-Cigarette/Vaping Use Never Used 10/29/24 12:53 PHQ-9: PHQ-9 Score PHQ-9: Total score 6 10/29/24 13:02 Depression Screening Interpretation: Positive Depression Screening Follow-up: Existing condition and In treatment Thrive Assessment: Date of Thrive Assessment Date Thrive assessed 10/29/24 10/29/24 12:53 Currently or been in a relationship where the following occur: No concerns reported Const General: no acute distress and alert HENMT Ears: TM's normal bilaterally and EAC's normal Throat: Yes posterior oropharynx normal and Yes tonsils normal (no TP congestion) Neck Neck: Yes no lymphadenopathy and Yes supple Thyroid: Thyroid normal Resp Auscultation: clear to auscultation bilaterally, no rales and no wheezes Cardio Rate: regular rate Rhythm: regular rhythm Heart sounds: no murmurs GI Palpation (GI): Soft to palpation and nontender Auscultation: normal bowel sounds General: Yes no CVA tenderness Back/Spine/Pelvis Back: no CVA tenderness Thoracic/Lumbar Spine: lumbar spinal tenderness Skin Other: (+) increased erythema of the distal half of both lower legs Rashes: no rashes Extrem General: No clubbing and Yes edema (2+ bipedal edema) Coding Level of Care Code Est Pt Level 4 (06520) Complex EM visit Add On G2211 Diagnoses Type 2 diabetes mellitus with hyperglycemia, without long-term current use of insulin E11.65 Diabetes mellitus remote computer terminal operator insulin use: without remote computer terminal operator use Benign essential hypertension I10 Paroxysmal atrial fibrillation with rapid ventricular response I48.0 Lymphedema I89.0 Seizure R56.9 Mild intermittent asthma without complication J45.20 Asthma severity: mild Asthma persistence: intermittent Asthma complication type: uncomplicated Lumbar degenerative disc disease M51.36 Primary osteoarthritis of both knees M17.0 Benign prostatic hyperplasia with urinary frequency N40.1; R35.0 Lower urinary tract symptom presence: symptoms present Lower urinary tract symptom detail: urinary frequency Bilateral cellulitis of lower leg L03.116; L03.115 Polysubstance abuse F19.10 Erectile dysfunction, unspecified erectile dysfunction type N52.9 Erectile dysfunction type: unspecified Insomnia, unspecified type G47.00 Insomnia type: unspecified Anxiety F41.9 Episode of recurrent major depressive disorder, unspecified depression episode severity F33.9 Depression Type: major depressive disorder Major depression recurrence: recurrent Active/Remission status: currently active Major depression episode severity: unspecified Morbid obesity with BMI of 40.0-44.9, adult E66.01; Z68.41 Additional Codes PHQ-9 - 07111 - PHQ-9 Billing: Yes ([id number]) Assessment & Plan Assessment & Plan (1) Type 2 diabetes mellitus with hyperglycemia: Comment: Admitted for [facility] in July 2019 Code(s): E11.65 - Type 2 diabetes mellitus with hyperglycemia Category: Medical Qualifiers: Diabetes mellitus remote computer terminal operator insulin use: without alf use Qualified Code(s): E11.65 - Type 2 diabetes mellitus with hyperglycemia Plan: His in-office HgbA1c was at 9.5% when most recently checked by endocrinology back in September 2024 (HgbA1c was previously at 10.3% a few months ago in June 2024) - goal is at least <7.0% Reinforced diabetic diet Continue Tresiba 90 units QD, Humalog 4 units TID with meals, Metformin 1000 mg BID, Ozempic 2 mg SQ once a week and Januvia 100 mg QD Follow up with endocrinology, diabetes educators and cash reconciliation specialist as scheduled (2) Benign essential hypertension: Code(s): I10 - Essential (primary) hypertension Category: Medical Plan: Reinforced low sodium diet - goal is systolic BP of at least 120 to 130 mm or less He used to be on Lisinopril 30 mg QD and Amlodipine 5 mg QD but these were discontinued late last year (2023) when he was admitted to the hospital He is currently on Metoprolol ER 100 mg QD and Diltiazem CD 180 mg QD for atrial fibrillation but these also help/impact his blood pressure As his blood pressure has been elevated for a while now, will start him additionally on Losartan 25 mg QD (3) Paroxysmal atrial fibrillation with rapid ventricular response: Code(s): I48.0 - Paroxysmal atrial fibrillation Category: Medical Plan: Patient currently remains in sinus rhythm - states that he's had no recurrence of his symptoms since his hospitalization in October 2021, which was most likely triggered by his multiple drug use at the time Continue Metoprolol 25 mg BID and Diltiazem CD 240 mg QD Continue Eliquis 5 mg BID for thromboembolism prophylaxis Follow up with cardiology as scheduled (4) Lymphedema: Code(s): I89.0 - Lymphedema, not elsewhere classified Category: Medical Plan: Patient is again reminded to try to keep his legs elevated as often as he can to help minimize his edema He was hospitalized for a period of time back in June 2023 for cellulitis of the lower extremities Losing weight should also help with his swelling although at this time, there appears to be no realistic expectation for this to happen (5) Seizure: Code(s): R56.9 - Unspecified convulsions Category: Medical Plan: No seizure recurrence since his hospitalization back in July 2019 - this was most likely brought on by his hyperosmolar coma EEG done at [facility] in July 2019 showed borderline abnormal results and recommended a 24 hour ambulatory EEG for further evaluation It appears that he has not seen neurology at all for follow up in the past couple of years and is encouraged to reach out to neurology to schedule his follow up appointment BENITO (6) Asthma: Code(s): J45.909 - Unspecified asthma, uncomplicated Category: Medical Qualifiers: Asthma severity: mild Asthma persistence: intermittent Asthma complication type: uncomplicated Qualified Code(s): J45.20 - Mild intermittent asthma, uncomplicated Plan: Controlled - continue Albuterol HFA 2 inhalations every 6 hours as needed (7) Lumbar degenerative disc disease: Code(s): M51.36 - Other intervertebral disc degeneration, lumbar region Category: Medical Plan: Reinforced activity and weight-lifting restrictions Continue Tramadol 50 mg TID and Lidocaine patches 5% apply 2 patches QD PRN for pain Have offered to refer him to pain management for his back pain and knee pain in the past but patient declined He has also been advised a few times in the past when he asked for Rx that we will not start him on anything other than what he is currently on for pain, especially any opioid Rx, due to his known history of polysubstance abuse (8) Primary osteoarthritis of both knees: Code(s): M17.0 - Bilateral primary osteoarthritis of knee Category: Medical Plan: Continue Tramadol 50 mg TID PRN, Voltaren gel 1% apply PRN and Lidocaine 5% patches 2 patches QD PRN He has received cortisone injections into his knees from [facility] in the past with only slight relief Has apparently not followed up with orthopedics or with rheumatology in a while now and he is encouraged to try to schedule his follow up appointments with them BENITO (9) BPH (benign prostatic hyperplasia): Code(s): N40.0 - Benign prostatic hyperplasia without lower urinary tract symptoms Category: Medical Qualifiers: Lower urinary tract symptom presence: symptoms present Lower urinary tract symptom detail: urinary frequency Qualified Code(s): N40.1 - Benign prostatic hyperplasia with lower urinary tract symptoms; R35.0 - Frequency of micturition Plan: Continue Tamsulosin 0.4 mg QD (10) Bilateral cellulitis of lower leg: Code(s): L03.116 - Cellulitis of left lower limb; L03.115 - Cellulitis of right lower limb Category: Medical Plan: Will go ahead and start patient empirically on Doxycycline 100 mg BID x 7 days (11) Polysubstance abuse: Code(s): F19.10 - Other psychoactive substance abuse, uncomplicated Category: Medical Plan: He was admitted previously to using some heroin but his UDS tested positive for opiates, fentanyl, cocaine and marijuana multiple times last year, most recently in June 2023, when his UDS was again positive for opiates, fentanyl and marijuana He was referred to Addiction Medicine for further management at his last visit Continue Methadone 20 mg QD (12) Erectile dysfunction: Code(s): N52.9 - Male erectile dysfunction, unspecified Category: Medical Qualifiers: Erectile dysfunction type: unspecified Qualified Code(s): N52.9 - Male erectile dysfunction, unspecified Plan: Continue Sildenafil 50 mg QD PRN (13) Insomnia: Code(s): G47.00 - Insomnia, unspecified Category: Medical Qualifiers: Insomnia type: unspecified Qualified Code(s): G47.00 - Insomnia, unspecified Plan: Sleep hygiene reinforced Continue Zolpidem 10 mg QD PRN (14) Anxiety: Code(s): F41.9 - Anxiety disorder, unspecified Category: Medical Plan: Continue Buspirone 30 mg BID and Escitalopram 20 mg QD Follow up with psychiatry as scheduled (15) Depression: Code(s): F32.9 - Major depressive disorder, single episode, unspecified Category: Medical Qualifiers: Depression Type: major depressive disorder Major depression recurrence: recurrent Active/Remission status: currently active Major depression episode severity: unspecified Qualified Code(s): F33.9 - Major depressive disorder, recurrent, unspecified Plan: Continue Escitalopram 20 mg QD Follow up with psychiatry as scheduled (16) Morbid obesity with BMI of 40.0-44.9, adult: Code(s): E66.01 - Morbid (severe) obesity due to excess calories; Z68.41 - Body mass index [BMI] 40.0-44.9, adult Category: Medical Plan: Reinforced diet; exercise and weight loss are unrealistic expectations with this patient given his overall situation and motivation Plan Follow up in 3 months Orders: Orders Complete Blood Count Auto Diff 3 Months D64.9 - Anemia, unspecified Comprehensive [place]. Panel Fast 3 Months E78.00 - Pure hypercholesterolemia, unspecified Microalbumin, Random (w Creat) 3 Months E11.9 - Type 2 diabetes mellitus without complications Vitamin D 25-OH Total 3 Months E55.9 - Vitamin D deficiency, unspecified Hemoglobin A1c 3 Months E11.9 - Type 2 diabetes mellitus without complications Lipid Panel 3 Months E78.00 - Pure hypercholesterolemia, unspecified UA CC w/rflx Micro + Cult 3 Months R30.0 - Dysuria Vitamin B12 and Folate 3 Months E53.8 - Deficiency of other specified B group vitamins Medications: New losartan 25 mg PO DAILY 90 tabs 1RF 90 days doxycycline hyclate 100 mg PO BID 14 caps 0RF 7 days
[2024-10-29 12:44] VITALS: BP 180/62; PULSE 116; RESP 18; TEMP 36.1; O2SAT 96; BMI 42.4
--- OUTSIDE RECORDS SUMMARY | 2024-10-29 13:29 | XMS_ITS | Clinical Summary ---
Author Organization [facility] Address [address] [place] [address] Phone Care Team Providers Care Heavy Truck Mechanic Name Role Phone Julio Carter MD [...] patient's age to complete this topic Insurance [facility] Care Teams Heavy Truck Mechanic Relationship Specialty Start Date End Date Julio Carter MD [address] [place] [address] [address] [place], [place] PCP - General Internal Medicine 09/16/24
--- OUTSIDE RECORDS SUMMARY | 2024-10-29 13:30 | XMS_ITS | Clinical Summary ---
Author Organization [facility] Address [address] [place] [id number] Care Team Providers Care Carton Forming Machine Adjuster Name Role Phone Julio Carter MD Primary Care Provider [phone]- [phone] Allergies No known active allergies Medications insulin [...] Health Maintenance Insurance MEDICAID OUT OF STATE [facility] Advance Directives * Full Code (Latest Code Status on File) Date Activated Date Inactivated Comments 04/02/2020 7:54 PM Healthcare Agents on File Name Relationship Healthcare Agent Relationshi p Communication Fang Shaan Parent 4. Next of Kin ( Spouse, Adult Child, Parent, Adult Sibling, Grandparent) Care Teams Carton Forming Machine Adjuster Relationship Specialty Start Date End Date Julio Carter MD [address] [place] [address] [address] [place] [address] PCP - General Internal Medicine 04/02/20
== END 2024-10-29 13:11 | disposition home or self-care (01) ==
LOC: HO.HMCH 12:39
PROVIDERS: PCP Internal Medicine; Visit Provider Internal Medicine
DX: E11.65 Type 2 diabetes mellitus with hyperglycemia (principal); I48.0 Paroxysmal atrial fibrillation; R56.9 Unspecified convulsions; Z68.41 Body mass index [BMI] 40.0-44.9, adult; E66.01 Morbid (severe) obesity due to excess calories; F19.10 Other psychoactive substance abuse, uncomplicated; I10 Essential (primary) hypertension; I89.0 Lymphedema, not elsewhere classified; J45.20 Mild intermittent asthma, uncomplicated; M51.369 Other intervertebral disc degeneration, lumbar region without mention of lumbar back pain or lower extremity pain; M17.0 Bilateral primary osteoarthritis of knee; N40.1 Benign prostatic hyperplasia with lower urinary tract symptoms; R35.0 Frequency of micturition; L03.116 Cellulitis of left lower limb; L03.115 Cellulitis of right lower limb; N52.9 Male erectile dysfunction, unspecified; G47.00 Insomnia, unspecified; F41.9 Anxiety disorder, unspecified; F33.9 Major depressive disorder, recurrent, unspecified

== ENCOUNTER → 2024-10-29 12:38 | Outpatient (BNVA) | payer OTHER, SELFPAY | PROVIDERS: PCP Internal Medicine; Visit Provider Internal Medicine | DX: E11.65 Type 2 diabetes mellitus with hyperglycemia (principal); I10 Essential (primary) hypertension; I48.0 Paroxysmal atrial fibrillation; I89.0 Lymphedema, not elsewhere classified; R56.9 Unspecified convulsions; J45.20 Mild intermittent asthma, uncomplicated; M51.369 Other intervertebral disc degeneration, lumbar region without mention of lumbar back pain or lower extremity pain; M17.0 Bilateral primary osteoarthritis of knee; N40.1 Benign prostatic hyperplasia with lower urinary tract symptoms; R35.0 Frequency of micturition; L03.116 Cellulitis of left lower limb; L03.115 Cellulitis of right lower limb; F19.10 Other psychoactive substance abuse, uncomplicated; N52.9 Male erectile dysfunction, unspecified; G47.00 Insomnia, unspecified; F41.9 Anxiety disorder, unspecified; F33.9 Major depressive disorder, recurrent, unspecified; E66.01 Morbid (severe) obesity due to excess calories; Z68.41 Body mass index [BMI] 40.0-44.9, adult; Z13.31 Encounter for screening for depression; Z13.39 Encounter for screening examination for other mental health and behavioral disorders | CPT/HCPCS: 96127; 99212 ==

== ENCOUNTER 2024-10-31 21:43 | Emergency (ER) | payer OTHER, SELFPAY ==
[2024-10-31 21:49] VITALS: BP 164/75; PULSE 96; RESP 18; TEMP 37.6; O2SAT 94; BMI 42.8
== END 2024-10-31 23:43 | disposition left against medical advice (07) ==
PROVIDERS: Emergency Provider Emergency Medicine
DX: R23.8 Other skin changes (principal)
CPT/HCPCS: 99281

== ENCOUNTER 2024-11-08 23:04 | Emergency (ER) | payer OTHER, SELFPAY ==
[2024-11-08 23:12] VITALS: BP 140/67; PULSE 79; RESP 18; TEMP 36.9; O2SAT 94; BMI 43.5
[2024-11-08 23:35] LABS: Hematocrit 41.7 % (42.0-52.0); Hemoglobin 14.5 g/dl (14.0-18.0); Imm Gran Abs Auto 0.04 X10*3/uL (0.00-0.03); Imm Gran Pct Auto 0.4 % (0.0-0.4); Lymphocytes Absolute Auto 2.5 X10*3/uL (1.2-4.9); MANUAL DIFF FLAG NO; Mean Corpuscular HGB Conc 34.8 g/dl (31.0-36.0); Mean Corpuscular Hemoglobin 30.7 pg (27.0-33.0); Mean Corpuscular Volume 88.2 fL (80.0-98.0); NRBC Abs Auto 0.000 X10*3/uL (0.0-0.012); NRBC Pct Auto 0.0 /100WBC (0.0-0.2); Platelet Count 300 X10*3/uL (160-400); Red Blood Count 4.73 X10*6/uL (4.60-5.80); White Blood Count 9.8 X10*3/uL (4.8-10.8)
[2024-11-08 23:56] LABS: Alanine Aminotransferase 32 U/L (0-40); Albumin Level 4.4 g/dL (3.5-5.0); Alkaline Phosphatase 95 U/L (39-117); Anion Gap 11 (12-20); Aspartate Amino Transferase 23 U/L (5-37); Blood Urea Nitrogen 18 mg/dL (9-16); Calcium 9.3 mg/dL (8.4-10.2); Carbon Dioxide 32 mmol/L (22-29); Chloride 104 mmol/L (96-108); Creatinine Clr Calc Pharmacy 117.4; Estimated Glomerular Filt Rate > 60; Potassium 4.7 mmol/L (3.3-5.1); Sodium 142 mmol/L (135-145); Total Protein 7.5 g/dL (6.5-8.0)
--- OUTSIDE RECORDS SUMMARY | 2024-11-09 00:46 | XMS_ITS | Encounter Summary ---
Author Organization [employer] Address [address] [place] [address] Care Team Providers Care Live Truck Technician Name Role Phone Unavailable Primary Care Provider Unavailabl e Reason for Visit * Reason Onset Date Comments medication 07/12/2022 Appointment 07/12/2022 Encounter Details Date Type Department Care Team (Late st Contact Info) Description 07/12/2022 Telephone [facility] [address] [place] [address] Storm Maciel DDS [address] [place] [address] medication; Appointment Social History Tobacco Use Types [...]
--- OUTSIDE RECORDS SUMMARY | 2024-11-09 00:46 | XMS_ITS | Clinical Summary ---
Author Organization [facility] Address [address] [place] [address] Phone Care Team Providers Care Mushroom Press Operator Name Role Phone Julio Carter MD [...] patient's age to complete this topic Insurance [facility] Care Teams Mushroom Press Operator Relationship Specialty Start Date End Date Julio Carter MD [address] [place] [address] [address] [place], [place] PCP - General Internal Medicine 09/16/24
--- OUTSIDE RECORDS SUMMARY | 2024-11-09 00:47 | XMS_ITS | Clinical Summary ---
Author Organization [facility] Address [address] [place] [id number] Care Team Providers Care Voice Professor Name Role Phone Julio Carter MD Primary Care Provider [phone]- [phone] Allergies No known active allergies Medications insulin [...] Health Maintenance Insurance MEDICAID OUT OF STATE [facility] Advance Directives * Full Code (Latest Code Status on File) Date Activated Date Inactivated Comments 04/02/2020 7:54 PM Healthcare Agents on File Name Relationship Healthcare Agent Relationshi p Communication Fang Shaan Parent 4. Next of Kin ( Spouse, Adult Child, Parent, Adult Sibling, Grandparent) Care Teams Voice Professor Relationship Specialty Start Date End Date Julio Carter MD [address] [place] [address] [address] [place] [address] PCP - General Internal Medicine 04/02/20
--- OUTSIDE RECORDS SUMMARY | 2024-11-09 00:47 | XMS_ITS | Clinical Summary ---
Author Organization [employer] [facility] Address [address] [place] [address] Care Team Providers Care Trailer Chief Name Role Phone Unavailable Primary Care Provider [...] Panel 1972 SDOH Screening 1972 Sigmoidoscopy 1972 Disability Screening 1972 Alcohol/Substance Use Screening 1984 Family Planning (PISQ) 05/27/1987 Hepatitis C Screening 1990 DTaP/Tdap/Td Vaccines (1 - Tdap) 05/27/1991 Hepatitis B Vaccines (1 of 3 - 19+ 3-dose series) 05/27/1991 Pneumococcal Vaccine: 50+ Ye ars (1 of 2 - PCV) 05/27/1991 Zoster Vaccines (1 of 2) 2022 COVID-19 Vaccine (1 - 2023-2 5 season) 2023 Tobacco Screening 03/23/2024 03/23/2023 Influenza Vaccine (#1) 2024 RSV Patients and Pa tients Aged 60 [...] age to complete [place] [id number] [facility] MEDICAID STAND ADULT * Guarantor: Herman Mcintosh Account Type Relation to Patient Date of Phone Billing Address Personal/Family [place] [address] * Guarantor: Herman Mcintosh Account Type Relation to Patient Date of Phone Billing Address Personal/[place] [address] * Guarantor: Herman Mcintosh Account Type Relation to Patient Date of Phone Billing Address Personal/[place] [address] * Guarantor: Herman Mcintosh Account Type Relation to Patient Date of Phone Billing Address Personal/[place] [address]
[2024-11-09 01:00] VITALS: BP 149/68; PULSE 82; RESP 18; TEMP 36.7; O2SAT 98
--- NOTE | 2024-11-09 01:53 | ED_ITS ---
HPI - General Adult General Chief complaint: Skin/Abscess/Foreign Body Stated complaint: cyst, diabetic Time Seen by Provider: 11/09/24 01:18 Source: patient Limitations: no limitations History of Present Illness ED Provider: Renetta Martins PA-C HPI narrative: 54-year-old male with a history of obesity, diabetes amongst other numerous comorbidities presents with concern for infection of posterior left thigh. Patient states he developed a tender swelling 2 weeks ago, it independently open and drained on its own. Patient was seen by primary care, he was placed on antibiotics, however he neglected to take the antibiotics. Patient is here given concern for recurrent infection. Denies fever. Denies active drainage from the site. Patient also complains of nasal congestion he is asking for nasal spray. Related Data Home Medications ?Medication ?Instructions ?Recorded ?Confirmed buspirone 30 mg tablet 30 mg PO BID 06/12/23 escitalopram oxalate 20 mg tablet 20 mg PO DAILY 06/2710/29/24 Previous Rx's ?Medication ?Instructions ?Recorded blood-glucose,incising machine operator,cont #1 ea 08/27/23 (Dexcom G7 Agricultural Crop Farm Manager) ROLLATOR #1 ea 12/11/23 sodium chloride 0.65 % nasal spray 2 spray intranasal QID PRN dry 12/11/23 aerosol (Saline Nasal) nasal passages #44 mL diltiazem HCl 240 mg 240 mg PO DAILY #30 caps capsule,extended release 24 hr (Cardizem CD) amiodarone 200 mg tablet 400 mg (2 x 200 mg) PO BID # 120 02/21/24 tabs methadone 10 mg/mL oral 20 mg (2 mL) PO DAILY@0800 # 1 mL 02/21/24 concentrate (Methadose) metoprolol tartrate 25 mg tablet 25 mg PO BID #120 tab s 02/21/24 blood-glucose meter (FreeStyle #1 ea 03/25/24 Lite Meter kit) Ventolin HFA 90 mcg/actuation 2 puff inhalation Q4-6H PRN 03/31/24 aerosol inhaler (albuterol sulfate) wheezing and/or sh ortness of breath #18 grams clotrimazole-betamethasone 1 1 appl topical BID PRN ba lanitis 06/06/24 %-0.05 % topical cream #45 grams sildenafil 50 mg tablet 50 mg PO DAILY PRN sexual ac tivity 07/02/24 #10 tabs sitagliptin phosphate 100 mg 100 mg PO DAILY #90 tabs 07/11/24 tablet (Januvia) blood-glucose,incising machine operator,cont #1 ea 07/21/24 (Dexcom G7 Agricultural Crop Farm Manager) blood sugar diagnostic (FreeStyle #100 ea 08/01/24 Lite Strips) lancets 28 gauge (FreeStyle #200 ea 09/09/24 Lancets) apixaban 5 mg tablet (Eliquis) 5 mg PO BID 30 days #60 tabs 09/26/24 metformin 500 mg tablet,extended 2,000 mg (4 x 500 mg) PO DAILY 10/07/24 release 24 hr #360 tabs lidocaine 5 % topical patch 2 patch topical DAILY PRN Pain 30 10/18/24 days #60 ea insulin degludec 200 unit/mL (3 90 unit (0.45 mL) subc ut BEDTIME 10/24/24 mL) subcutaneous pen (Tresiba #12 mL FlexTouch U-200 insulin) insulin lispro 100 unit/mL 4 unit (0.04 mL) subcut TID #15 mL 10/24/24 subcutaneous pen (Humalog KwikPen (U-100) Insulin) semaglutide 2 mg/dose (8 mg/3 mL) 2 mg (0.75 mL) subcu t QWEEK #3 mL 10/24/24 subcutaneous pen injector (Ozempic) doxycycline hyclate 100 mg capsule 100 mg PO BID 7 day s #14 caps 10/29/24 losartan 25 mg tablet 25 mg PO DAILY 90 days #90 t abs 10/29/24 blood-glucose sensor (Dexcom G7 #3 ea 11/03/24 Sensor device) tramadol 50 mg tablet 50 mg PO TID PRN pain 30 day s #90 11/03/24 tabs zolpidem 10 mg tablet 10 mg PO BEDTIME PRN insomni a #30 11/03/24 tabs pen needle, diabetic 31 gauge x #100 ea 11/05/24 3/16 doxycycline hyclate 100 mg capsule 100 mg PO BID #13 c aps 11/09/24 fluticasone furoate 27.5 2 spray intranasal DAILY PRN nasal 11/09/24 mcg/actuation nasal congestion #5.9 mL spray,suspension Allergies Allergy/AdvReac Type Severity Reaction Status Date / Time Penicillins (PENICILLINS) Allergy Unknown RASH Verified 11/08/24 23:17 Review of Systems 2 Review of Systems: Yes all other systems are reviewed and are negative Constitutional: Constitutional: Denies fatigue and Denies fever(s) Musculoskeletal: Musculoskeletal: Denies arthralgias and Denies joint swelling Integumentary/Breasts: Skin/Breast: Reports erythema and Reports wounds Endocrine: Endocrine: Denies fatigue PMFSH Past Medical History Attestation statement: The following information was validated with the patient. Medical History Noncompliance Callus of foot Diabetic polyneuropathy Food insecurity Uncontrolled type 2 diabetes mellitus with hyperglycemia Tachycardia Type 2 diabetes mellitus with hyperglycemia Paroxysmal atrial fibrillation Morbid obesity Substance abuse Essential hypertension Cocaine abuse Erectile dysfunction Polysubstance abuse Paroxysmal atrial fibrillation with rapid ventricular response Lumbar degenerative disc disease Substance abuse Diabetes Depression Overactive bladder Arthritis BPH (benign prostatic hyperplasia) Asthma Seizure Morbid obesity with BMI of 40.0-44.9, adult Benign essential hypertension Insomnia Primary osteoarthritis of both knees Anxiety Family history of thyroid disorder Surgical History No history of previous surgery Family History Family History Father ETOH abuse Mother Diabetes Arthritis of knee Hypertension Other Mental health problem Substance abuse Social History Social History Household Members: Friend(s) Household Members Other:: rents a room in a house Housing: House Housing Other:: rents a room Alcohol intake: current Alcohol intake frequency: does not drink Comment: patient refused Patient Tobacco Use Status: Never used Tobacco Smoked in Last 30 Days: No e-Cigarette/Vaping Use: Never Used Second Hand Smoke Exposure: No Use of substances other than those prescribed or required for medical reasons: Yes Substance Use Type: Marijuana Advance Directives: Yes Advance Directives on File: Yes Advance Directives Date on File: 02/23/22 Do you have a plan to hurt others: No Plan service: No Current occupational status: unemployed and disabled Sexual orientation: Straight/Heterosexual Cognitive needs: No Hearing needs: No Vision needs: No Physical Exam ED Vital Signs: Vital Signs - 24 hr 11/08/24 23:12 11/09/24 01:00 11/09/24 02:08 Temperature 98.4 F 98.1 F 98.0 F Pulse Rate 79 82 81 Respiratory Rate 18 18 18 Blood Pressure 140/67 H 149/68 H 141/73 H Pulse Oximetry 94 98 97 Oxygen Delivery Method Room Air Room Air Room Air 11/09/24 02:11 Temperature 98.0 F Pulse Rate 81 Respiratory Rate 18 Blood Pressure 141/73 H Pulse Oximetry 97 Oxygen Delivery Method Room Air BMI result Body Mass Index 43.5 Const Other: Alert, well-appearing Orientation/consciousness: patient oriented x3 Resp Effort & Inspection: normal respiratory effort Cardio Other: Normal peripheral perfusion Skin Other: Warm dry no rash Neuro General: patient oriented x3, gait normal, no focal motor deficits and CN's II- XI intact bilaterally Extrem Other: There is a circular area of erythema with dry scab formation in the center, no fluctuance, the entire area itself is somewhat indurated no active purulence from the site Psych Other: Cooperative Medications Administered Discontinued Medications Generic Name Dose Route Start Last Admin Trade Name Freq PRN Reason Stop Dose Admin Doxycycline Monohydrate 100 mg 11/09/24 01:51 11/09/24 02:09 Doxycycline Monohydrate 100 Mg Capsule PO 11/09/24 01:52 100 mg ONCE ONE Administration Medical Decision Making Medical Decision Making [facility] Narrative: 54-year-old male with a history of obesity, diabetes amongst other numerous comorbidities presents with concern for infection of posterior left thigh. Patient states he developed a tender swelling 2 weeks ago, it independently open and drained on its own. Patient was seen by primary care, he was placed on antibiotics, however he neglected to take the antibiotics. Patient is here given concern for recurrent infection. Denies fever. Denies active drainage from the site. Patient also complains of nasal congestion he is asking for nasal spray. Problem: Diabetes, obesity History: Per patient I have considered the following differential diagnoses: Cellulitis, purulent cellulitis, folliculitis, abscess, cyst, infected cyst Plan: Viewed the site with bedside ultrasound, there was no fluid collection suggestive of an abscess, there was cobblestoning consistent with cellulitis. We will place on a course of doxycycline. In regard to his nasal congestion we will send with fluticasone. No indication for imaging or labs Differential Diagnosis Differential Diagnoses: The differential diagnosis associated with the presentation includes See [facility] Admission/Observation Consideration of admission/observation: Escalation of care including admission/observation considered Not applicable Lab Data [facility] Lab Attestation statement: I reviewed the patient's lab results. 11/08/24 23:30 11/08/24 23:30 Labs: Lab Results 11/08/24 Range/Units 23:30 WBC 9.8 (4.8-10.8) X10*3/uL RBC 4.73 (4.60-5.80) X10*6/uL Hgb 14.5 (14.0-18.0) g/dl Hct 41.7 L (42.0-52.0) % MCV 88.2 (80.0-98.0) fL MCH 30.7 (27.0-33.0) pg MCHC 34.8 (31.0-36.0) g/dl RDW 12.4 (11.0-16.0) % Plt Count 300 (160-400) X10*3/uL MPV 9.5 (9.4-12.4) fL Immature Gran % (Auto) 0.4 (0.0-0.4) % Neut % (Auto) 64.8 (45-73) % Lymph % (Auto) 25.6 (20-40) % [place] % (Auto) 6.8 (2-11) % Eos % (Auto) 2.0 (0-4) % Baso % (Auto) 0.4 (0-2) % Lymph # (Auto) 2.5 (1.2-4.9) X10*3/uL [place] # (Auto) 0.7 (0.1-1.2) X10*3/uL Eos # (Auto) 0.2 (0.0-0.4) X10*3/uL Baso # (Auto) 0.0 (0.0-0.2) X10*3/uL Abs Immat Gran (auto) 0.04 H (0.00-0.03) X10*3/uL Absolute Neuts (auto) 6.3 (2.0-8.3) x10*3/uL Absolute Nucleated RBC 0.000 (0.0-0.012) X10*3/uL Nucleated RBC % (auto) 0.0 (0.0-0.2) /100WBC Sodium 142 (135-145) mmol/L Potassium 4.7 (3.3-5.1) mmol/L Chloride 104 (96-108) mmol/L Carbon Dioxide 32 H (22-29) mmol/L Anion Gap 11 L (12-20) BUN 18 H (9-16) mg/dL Creatinine 1.06 (0.5-1.4) mg/dL Estim Creat Clear Calc 117.4 Estimated GFR > 60 Random Glucose 185 H (60-115) mg/dL Calcium 9.3 (8.4-10.2) mg/dL Total Bilirubin 0.2 (0.0-1.0) mg/dL AST 23 (5-37) U/L ALT 32 (0-40) U/L Alkaline Phosphatase 95 (39-117) U/L Total Protein 7.5 (6.5-8.0) g/dL Albumin 4.4 (3.5-5.0) g/dL Discharge Plan Discharge Clinical Impression: Cellulitis, Chronic nasal congestion Patient Disposition: Home, Self-Care Instructions: Cellulitis (ED), How to Use Nasal [place] (ED) Additional Instructions: You are being treated for cellulitis and for nasal congestion. See home care instructions. Use the fluticasone as needed for nasal congestion and as directed. Take the doxycycline as directed for the cellulitis. Follow up with your primary care provider as needed. Prescriptions: New doxycycline hyclate 100 mg capsule 100 mg PO BID Qty: 13 0RF fluticasone furoate 27.5 mcg/actuation spray,suspension 2 spray intranasal DAILY PRN (Reason: nasal congestion) Qty: 5.9 0RF Rx Instructions: into each nostril No Action (DME) Dexcom G7 Agricultural Crop Farm Manager Misc See Rx Instructions .Route Qty: 1 0RF Rx Instructions: As directed (DME) Dexcom G7 Agricultural Crop Farm Manager Misc See Rx Instructions .ROUTE .COMPLEX Qty: 1 0RF Dose Instruction: DIRECTED Rx Instructions: DIRECTED (DME) FreeStyle Lite Strips Strip See Rx Instructions .ROUTE TID Qty: 100 3RF Rx Instructions: use 4x daily As directed to monitor blood sugars Eliquis 5 mg tablet 5 mg PO BID 30 Days Qty: 60 2RF Rx Instructions: x30 dats metformin 500 mg tablet extended release 24 hr 2,000 mg PO DAILY Qty: 360 1RF lidocaine 5 % adhesive patch,medicated 2 patch topical DAILY PRN (Reason: Pain) 30 Days Qty: 60 0RF zolpidem 10 mg tablet 10 mg PO BEDTIME PRN (Reason: insomnia) Qty: 30 0RF tramadol 50 mg tablet 50 mg PO TID PRN (Reason: pain) 30 Days Qty: 90 0RF (DME) Dexcom G7 Sensor Device See Rx Instructions .Route Qty: 3 4RF Rx Instructions: As directed change every 10 days (DME) pen needle, diabetic 31 gauge x 3/16 needle See Rx Instructions .ROUTE .COMPLEX Qty: 100 3RF Dose Instruction: USE DIRECTED ONCE DAILY Rx Instructions: USE DIRECTED ONCE DAILY buspirone 30 mg tablet 30 mg PO BID diltiazem HCl [Cardizem CD] 240 mg capsule,extended release 24hr 240 mg PO DAILY Qty: 30 0RF amiodarone 200 mg Tablet 400 mg PO BID Qty: 120 0RF Rx Instructions: take amiodarone 400 mg(2 tabs) po bid ( until 03/04/24) ,then switch to amiodarone 200mg (1 tab)daily on 03/05/24 . metoprolol tartrate 25 mg tablet 25 mg PO BID Qty: 120 0RF methadone [Methadose] 10 mg/mL Concentrate 20 mg PO DAILY@0800 Qty: 1 0RF Rx Instructions: Partial Fill upon patient request. escitalopram oxalate 20 mg tablet 20 mg PO DAILY clotrimazole-betamethasone 1-0.05 % cream 1 appl topical BID PRN (Reason: balanitis) Qty: 45 3RF Rx Instructions: apply to affected area bid for 7 days then bid (DME) ROLLATOR See Rx Instructions .Route .MEDSUPPLY Qty: 1 0RF Rx Instructions: As directed Saline Nasal 0.65 % aerosol,spray 2 spray intranasal QID PRN (Reason: dry nasal passages) Qty: 44 5RF (DME) blood-glucose meter [FreeStyle Lite Meter] Kit See Rx Instructions .ROUTE .MEDSUPPLY Qty: 1 0RF Rx Instructions: Use as directed to check glucose twice daily. sildenafil 50 mg tablet 50 mg PO DAILY PRN (Reason: sexual activity) Qty: 10 0RF Rx Instructions: administer 30 minutes to 4 hours before activity Januvia 100 mg tablet 100 mg PO DAILY Qty: 90 3RF doxycycline hyclate 100 mg capsule 100 mg PO BID 7 Days Qty: 14 0RF losartan 25 mg tablet 25 mg PO DAILY 90 Days Qty: 90 1RF albuterol sulfate [Ventolin HFA] 90 mcg/actuation HFA aerosol inhaler 2 puff inhalation Q4-6H PRN (Reason: wheezing and/or shortness of breath) Qty: 18 5RF (DME) lancets [FreeStyle Lancets] 28 gauge misc See Rx Instructions .ROUTE .MEDSUPPLY Qty: 200 5RF Rx Instructions: Use to monitor blood glucose 4 times daily. insulin lispro [Humalog KwikPen Insulin] 100 unit/mL insulin pen 4 unit subcut TID Qty: 15 3RF Rx Instructions: Administer three times daily 15 minutes before meals insulin degludec [Tresiba FlexTouch U-200] 200 unit/mL (3 mL) insulin pen 90 unit subcut BEDTIME Qty: 12 5RF Ozempic 2 mg/dose (8 mg/3 mL) pen injector 2 mg subcut QWEEK Qty: 3 5RF Interventions: ED Discharge Assessment Last Done: 11/09/24 02:11 Discharge Date/Time: 11/09/24 02:12 Print Language: Mozambican
[2024-11-09 02:08] VITALS: BP 141/73; PULSE 81; RESP 18; TEMP 36.7; O2SAT 97
[2024-11-09 02:11] VITALS: BP 141/73; PULSE 81; RESP 18; TEMP 36.7; O2SAT 97
== END 2024-11-09 02:12 | disposition home or self-care (01) ==
PROVIDERS: Emergency Provider Emergency Medicine; PCP Internal Medicine
DX: L03.114 Cellulitis of left upper limb (principal); M79.652 Pain in left thigh; E11.9 Type 2 diabetes mellitus without complications; Z79.899 Other long term (current) drug therapy; Z79.4 Long term (current) use of insulin
CPT/HCPCS: 36415; 80053; 85025; 99283; 99284

== ENCOUNTER 2024-11-28 14:27 | Outpatient (AMB) | payer OTHER, SELFPAY ==
--- NOTE | 2024-11-28 14:33 | MHC.OFFVIS ---
Vital Signs 11/28/24 14:37 Height 5 ft 11 in Weight 314 lb 13.121 oz BMI 43.9 BP 132/68 Blood Pressure Location Rt brachial Position Sitting Pulse 87 Pulse Source Pulse Oximeter Pulse Oximetry (%) 97 Oxygen Delivery Method Room Air Intake Visit Reasons: Type II diabetes Intake Note: Patient present today to follow up on Type 2 Diabetes Mellitus. Last Diabetic Eye exam: Due, has an appointment for next year 2025. Last Podiatry Visit: Does not see a [facility] Representatives Random Glucose: 118 mg/dl HgA1C: 9.5% 09/09/2024 Dental Chairside Assistant Required: No Accompanied by: Self / Same As Patient Allergies Penicillins (PENICILLINS) Allergy (Unknown, Verified 11/28/24 14:37) RASH Medication List - Last Reconciled 11/28/24 by GHULAM Jean amiodarone 400 mg (2 x 200 mg) PO BID apixaban (Eliquis) 5 mg PO BID 30 days blood sugar diagnostic (FreeStyle Lite Strips) USE 4X DAILY DIRECTED TO MONITOR BLOOD SUGARS blood-glucose meter (FreeStyle Lite Meter kit) Use as directed to check glucose twice daily. blood-glucose sensor (Dexcom G7 Sensor device) As directed change every 10 days blood-glucose,director peoplesoft,cont (Dexcom G7 Pouncing Lathe Operator) As directed blood-glucose,director peoplesoft,cont (Dexcom G7 Pouncing Lathe Operator) DIRECTED buspirone 30 mg PO BID clotrimazole-betamethasone 1-0.05 % 1 appl topical BID PRN diltiazem HCl CD (Cardizem CD) 240 mg PO DAILY doxycycline hyclate 100 mg PO BID doxycycline hyclate 100 mg PO BID 7 days escitalopram oxalate 20 mg PO DAILY fluticasone furoate 27.5 mcg/actuation 2 sprays intranasal DAILY PRN insulin degludec (Tresiba FlexTouch U-200 insulin) 90 units (0.45 mL) subcut BEDTIME insulin lispro (Humalog KwikPen (U-100) Insulin) 7 units subcut TID lancets (FreeStyle Lancets) Use to monitor blood glucose 4 times daily. lidocaine 5% 2 patches topical DAILY PRN 30 days losartan 25 mg PO DAILY 90 days metformin ER 2,000 mg (4 x 500 mg) PO DAILY methadone (Methadose) 20 mg (2 mL) PO DAILY@0800 metoprolol tartrate 25 mg PO BID pen needle, diabetic USE DIRECTED ONCE DAILY [ROLLATOR As directed] semaglutide (Ozempic) 2 mg (0.75 mL) subcut QWEEK sildenafil 50 mg PO DAILY PRN sitagliptin phosphate (Januvia) 100 mg PO DAILY sodium chloride 0.65% (Saline Nasal) 2 sprays intranasal QID PRN tramadol 50 mg PO TID PRN 30 days Ventolin HFA 90 mcg/actuation (albuterol sulfate) 2 puffs inhalation Q4-6H PRN NS zolpidem 10 mg PO BEDTIME PRN HPI Comments Details: This is a 54-year-old male with a past medical history of polysubstance abuse, uncontrolled type 2 diabetes, depression, atrial flutter with RVR, PTSD presenting for diabetic management. Hemoglobin A1c 9.5% 09/09/2024 down from 13.9% 03/13/2024. Reviewed Dexcom data Average glucose 236 Very high 37% High 36% Target range 26% 0% low 1% very low Patient has hyperglycemia postprandially and overnight. I asked him about the low glucose event, and patient says this was because he didn't have the reader so it alerted to low and then lost the signal. He checked a fingerstick, and it was normal. No symptoms of hypoglycemia. Current medications: Ozempic 2 mg weekly, Tresiba 90 units nightly, metformin ER 2000 mg daily, Januvia 100 mg and Humalog 4 units TID before meals. He ran out of Ozempic a week ago. There is an insurance issue. They want him to try Trulicity, but today he states that he did try Trulicity in the past and it caused diarrhea and abdominal pain. Past medications: Lantus discontinued SGLT2 not prescribed-history of balanitis Trulicity caused diarrhea and abdominal pain Compliance issues: He has struggled with compliance, but he is doing better. Endorses polyuria, polydipsia Denies any hypoglycemic events. Complications: Neuropathy ROS: Constitutional: No fevers or chills. Eyes: No vision changes, blurry vision, double vision Respiratory: No shortness of breath, cough or sputum production. Cardiovascular: No chest pain, chest pressure, palpitations. Endocrine: See HPI Psychiatric: Endorses depression and anxiety. Denies SI/HI. Physical exam: Constitutional: Alert, in no distress. Neck: Supple, Full range of motion. No lymphadenopathy. No palpable thyroid masses. Respiratory: Clear to auscultation. Cardiovascular: S1 S2 regular. No murmurs. Psychiatric: Normal mood and affect [facility] Medical History Noncompliance Callus of foot Diabetic polyneuropathy Food insecurity Uncontrolled type 2 diabetes mellitus with hyperglycemia Tachycardia Type 2 diabetes mellitus with hyperglycemia Paroxysmal atrial fibrillation Morbid obesity Substance abuse Essential hypertension Cocaine abuse Erectile dysfunction Polysubstance abuse Paroxysmal atrial fibrillation with rapid ventricular response Lumbar degenerative disc disease Substance abuse Diabetes Depression Overactive bladder Arthritis BPH (benign prostatic hyperplasia) Asthma Seizure Morbid obesity with BMI of 40.0-44.9, adult Benign essential hypertension Insomnia Primary osteoarthritis of both knees Anxiety Family history of thyroid disorder Surgical History No history of previous surgery Family History Father ETOH abuse Mother Diabetes Arthritis of knee Hypertension Other Mental health problem Substance abuse Social History Household Members: Friend(s) Household Members Other:: rents a room in a house Housing: House Housing Other:: rents a room Alcohol intake: current Alcohol intake frequency: does not drink Comment: patient refused Patient Tobacco Use Status: Never used Tobacco e-Cigarette/Vaping Use: Never Used Second Hand Smoke Exposure: No Substance Use Type: Marijuana Advance Directives Date on File: 02/23/22 service: No Current occupational status: unemployed and disabled Sexual orientation: Straight/Heterosexual Cognitive needs: No Hearing needs: No Vision needs: No Physical Exam Vital Signs: Last Vital Signs Pulse 87 11/28/24 14:37 BP 132/68 11/28/24 14:37 Pulse Ox 97 11/28/24 14:37 Oxygen Delivery Method Room Air 11/28/24 14:37 BMI result Body Mass Index 43.9 Office Procedures Glucose Monitoring Details Details: See [facility] [id number] - Glucose monitoring, continuous-physician I&R Procedure code (CPT) selection complete Results Reviewed Results Reviewed: Laboratory Last Values Glucose (Clinic) 118 mg/dL (60-115) H 11/28/24 14:42 Laboratory Tests 08/16/23 03/13/24 03/13/24 15:23 15:41 15:49 Plt Count Creatinine Estimated GFR Hgb A1c (Clinic) AST ALT Triglycerides 200 H Cholesterol 150 LDL Cholesterol, Calc 69 HDL Cholesterol 41 Vitamin B12 626 TSH 1.14 Urine Creatinine 103.05 Urine Microalbumin 27.0 Microalb/Creat Ratio 26.2 06/13/24 06/25/24 14:42 19:04 Plt Count 253 Creatinine 1.00 Estimated GFR > 60 Hgb A1c (Clinic) 10.3 H AST 24 ALT 28 Triglycerides Cholesterol LDL Cholesterol, Calc HDL Cholesterol Vitamin B12 TSH Urine Creatinine Urine Microalbumin Microalb/Creat Ratio Assessment & Plan Assessment & Plan (1) Uncontrolled type 2 diabetes mellitus with hyperglycemia: Code(s): E11.65 - Type 2 diabetes mellitus with hyperglycemia Category: Medical (2) Diabetic polyneuropathy: Code(s): E11.42 - Type 2 diabetes mellitus with diabetic polyneuropathy Category: Medical Qualifiers: Diabetes mellitus type: type 2 Qualified Code(s): E11.42 - Type 2 diabetes mellitus with diabetic polyneuropathy (3) Polysubstance abuse: Code(s): F19.10 - Other psychoactive substance abuse, uncomplicated Category: Medical Plan In summary this is a 54-year-old male with uncontrolled type 2 diabetes. Treatment complicated by polysubstance abuse and noncompliance. He is doing better recently. Ozempic 2 mg weekly. Appeal will be submitted to the insurance. Tresiba 90 units nightly metformin ER 2000 mg daily Januvia 100 mg Increase Humalog to 7 units three times daily 10-15 minutes before meals. If your blood sugars after meals are still over 180, increase Humalog to 9 units before meals. If you experience low blood sugar, treat this by eating a chewable fruit candy like skittles or jelly beans (about 8 pieces), 4 ounces (1/2 cup) of fruit juice (not diet), 1 tablespoon of honey or 4 glucose tablets. If your blood sugar is under 50, take double the amount of one of the above. Recheck your blood sugar in 15 minutes. Reminded him to bring his CGM or glucometer to all appointments. Eye exam is scheduled in 2025. Follow up in 1 month for type 2 diabetes. Reminded to have lab work completed. Orders: Orders AMB Glucose Monitoring Today E11.9 - Type 2 diabetes mellitus without complications Medications: Changed From insulin lispro (Humalog KwikPen (U-100) Insulin) Administer three times daily 15 minutes before meals 4 units (0.04 mL) subcut TID 15 mL 3RF To insulin lispro (Humalog KwikPen (U-100) Insulin) Administer three times daily 15 minutes before meals 7 units subcut TID Patient Instructions: Ozempic 2 mg weekly Tresiba 90 units nightly metformin ER 2000 mg daily Januvia 100 mg Increase Humalog to 7 units three times daily 10-15 minutes before meals. If your blood sugars after meals are still over 180, increase Humalog to 9 units before meals. If you experience low blood sugar, treat this by eating a chewable fruit candy like skittles or jelly beans (about 8 pieces), 4 ounces (1/2 cup) of fruit juice (not diet), 1 tablespoon of honey or 4 glucose tablets. If your blood sugar is under 50, take double the amount of one of the above. Recheck your blood sugar in 15 minutes. Coding Level of Care Code Est Pt Level 4 (69841) Diagnoses Uncontrolled type 2 diabetes mellitus with hyperglycemia E11.65 Diabetic polyneuropathy associated with type 2 diabetes mellitus E11.42 Diabetes mellitus type: type 2 Polysubstance abuse F19.10 CPT Codes Details - CPT: 11996 - Glucose monitoring, continuous-physician I&R ([id number])
--- OUTSIDE RECORDS SUMMARY | 2024-11-28 14:33 | XMS_ITS | Encounter Summary ---
Author Organization [employer] Address [address] [place] [address] Care Team Providers Care Plater Supervisor Name Role Phone Unavailable Primary Care Provider Unavailabl e Reason for Visit * Reason Onset Date Comments medication 07/12/2022 Appointment 07/12/2022 Encounter Details Date Type Department Care Team (Late st Contact Info) Description 07/12/2022 Telephone [facility] [address] [place] [address] Storm Maciel DDS [address] [place] [address] medication; Appointment Social History Tobacco Use Types [...]
--- OUTSIDE RECORDS SUMMARY | 2024-11-28 14:33 | XMS_ITS | Clinical Summary ---
Author Organization [facility] Address [address] [place] [address] Care Team Providers Care Food Service Name Role Phone Unavailable Primary Care Provider [...] 05/27/1991 Zoster Vaccines (1 of 2) 2022 Tobacco Screening 03/23/2024 03/23/2023 COVID-19 Vaccine (1 - 2023-2 5 season) 2024 Influenza Vaccine (#1) 2024 RSV Patients and [...] to complete [place] [id number] [facility] MEDICAID STAND ADULT * Guarantor: Herman Mcintosh Account Type Relation to Patient Date of Phone Billing Address Personal/Family Self [facility] [place] [address] * Guarantor: Herman Mcintosh Account Type Relation to Patient Date of Phone Billing Address Personal/[place] [address] * Guarantor: Herman Mcintosh Account Type Relation to Patient Date of Phone Billing Address Personal/[place] [address] * Guarantor: Herman Mcintosh Account Type Relation to Patient Date of Phone Billing Address Personal/[place] [address]
--- OUTSIDE RECORDS SUMMARY | 2024-11-28 14:33 | XMS_ITS | Clinical Summary ---
Author Organization [address] [facility] Address [address] [place] [address] Phone Care Team Providers Care Rag Collector Name Role Phone Julio Carter MD Primary Care Provider [phone] Social History Tobacco Use Types Packs/Day Years [...] 05/27/1991 Zoster Vaccines (1 of 2) 2022 Depression Screening 03/12/2024 Cholesterol Screening (Lipid Panel) 09/16/2024 Colorectal Cancer Screening: Colonoscopy 09/16/2024 Diabetes: Annual Urine Albumin-Creatinine Ratio (uACR) 09/16/2024 Diabetes: Blood Sugar Contro l Test (HGBA1C) 09/16/2024 HIV Screening 09/16/2024 Hepatitis C Screening 09/16/2024 Social Influencers of Health Screening 09/16/2024 COVID-19 Vaccine ( - 2023-2 5 season) 2024 Influenza Vaccine (#1) 2024 HIB Vaccines Aged [...] patient's age to complete this topic Insurance [facility] Care Teams Rag Collector Relationship Specialty Start Date End Date Julio Carter MD [address] [place] [address] [address] [place], [place] PCP - General Internal Medicine 09/16/24
--- OUTSIDE RECORDS SUMMARY | 2024-11-28 14:34 | XMS_ITS | Clinical Summary ---
Author Organization [facility] Address [address] [place] [address] Care Team Providers Care Slaughterer Religious Ritual Name Role Phone Julio Carter MD Primary Care Provider [phone] Allergies No known active allergies Medications insulin glargine, BASAGLAR KWIKPEN, 100 UNIT/ML pen injectionIndicati ons:Type 2 diabetes mellitus without complication, with long-term current use of insulin ([facility]) Inject 30 Units under the skin [...] complication, with long-term current use of insulin ([facility]) Inject 0.75 mg under the skin once a week. Every sunday 2 mL 1 Active amLODIPine (NORVASC) 5 MG tabletIndications :Type 2 diabetes mellitus without complication, with long-term current use of insulin ([facility]),Essential hypertension Take 1 tablet (5 mg total) by mouth daily. 30 tablet 1 Active lisinopril (PRINIVIL,ZeSTRIL ) 30 MG tabletIndications :Type 2 diabetes mellitus without complication, with long-term current use of insulin ([facility]),Essential hypertension Take 1 tablet (30 mg total) by mouth daily. 30 tablet 1 Active metoPROLOL TARTRATE (LOPRESSOR) 50 MG tabletIndications :Paroxysmal atrial fibrillation (HCC),Type 2 diabetes mellitus without complication, with long-term current use of insulin ([facility]),Essential hypertension Take 1 tablet (50 mg total) by mouth every 12 (twelve) hours around the clock. 60 tablet 1 Active busPIRone (BUSPAR) 30 MG tabletIndications :Suicidal behavior without attempted self-injury,Type 2 diabetes mellitus without complication, with long-term current use of insulin ([facility]) Take 1 tablet (30 mg total) by mouth 3 (three) times a day. 90 tablet 1 Active traMADol (ULTRAM) 50 MG tabletIndications :Type 2 diabetes mellitus without complication, with long-term current use of insulin ([facility]) Take 1 tablet (50 mg total) by mouth 3 (three) times a day as needed for moderate pain or severe pain. For pain 15 tablet 1 Active albuterol (PROVENTIL HFA; VENTOLIN HFA) 108 (90 Base) MCG/ACT inhalerIndication s:Type 2 diabetes mellitus without complication, with long-term current use of insulin ([facility]) Inhale 2 puffs 4 times daily (every 6 hours) as needed for wheezing or shortness of breath. 1 Inhaler 1 Active hydrOXYzine HCl (ATARAX) 25 MG tabletIndications :Type 2 diabetes mellitus without complication, with long-term current use of insulin ([facility]) Take 1 tablet (25 mg total) by mouth 3 (three) times a day as needed for itching or anxiety. 30 tablet 1 Active escitalopram (LEXAPRO) 20 MG tabletIndications :Type 2 diabetes mellitus without complication, with long-term current use of insulin ([facility]) Take 1 tablet (20 mg total) by mouth daily. 30 tablet 1 Active apixaban (ELIQUIS) 5 MG tabletIndications :Paroxysmal atrial fibrillation (HCC),Type 2 diabetes mellitus without complication, with long-term current use of insulin ([facility]) Take 1 tablet (5 mg total) by mouth every 12 (twelve) hours around the clock. 60 tablet 1 Active ALPRAZolam (XANAX) 2 MG tabletIndications :Suicidal behavior without attempted self-injury,Type 2 diabetes mellitus without complication, with long-term current use of insulin ([facility]) Take 1 tablet (2 mg total) by mouth nightly as needed for anxiety. 5 tablet 1 Active lidocaine (LIDODERM) 5 % patchIndications: Type 2 diabetes mellitus without complication, with long-term current use of insulin ([facility]) Place 1 patch on the skin daily. Apply patch and leave on for 12 hours then remove. Patch may remain on skin for 12 hours per day. 30 patch 1 Active diclofenac (VOLTAREN) 1 % gelIndications:Ty pe 2 diabetes mellitus without complication, with long-term current use of insulin ([facility]) Apply 2 g topically 2 (two) times a day as needed for pain or muscle/joint pain. 100 g 1 Active FREESTYLE LITE stripIndications: Type 2 diabetes mellitus without complication, with long-term current use of insulin ([facility]) 100 test strips by Other (specify) route 3 (three) times a day before meals. Use as instructed 100 test strip 1 Active tamsulosin (FLOMAX) 0.4 MG capsuleIndication s:Type 2 diabetes mellitus without complication, with long-term current use of insulin ([facility]) Take 1 capsule (0.4 mg total) by mouth daily. 30 capsule 1 Active B-D ULTRAFINE III SHORT PEN 31G X 8 MM MiscIndications:T ype 2 diabetes mellitus without complication, with long-term current use of insulin ([facility]) Check blood glucose at least 3 times daily and once in the morning fasting. For diabetes mellitus ICD E 11.9 50 pen needle 1 Active Insulin Pen Needle 31G X 8 MM MiscIndications:T ype 2 diabetes mellitus without complication, with long-term current use of insulin ([facility]) Check blood glucose at least 3 times daily and once in the morning fasting. For diabetes mellitus ICD E 11.9 50 pen needle 1 Active Blood Glucose Monitoring Suppl (FreeStyle Lite) DeviceIndications :Type 2 diabetes mellitus without complication, with long-term current use of insulin ([facility]) Check blood glucose at least 3 times daily and once in the morning fasting. For diabetes mellitus ICD E 11.9 1 Device 1 Active FREESTYLE LITE stripIndications: Type 2 diabetes mellitus without complication, with long-term current use of insulin ([facility]) Check blood glucose at least 3 times daily and once in the morning fasting. For diabetes mellitus ICD E 11.9 100 test strip 1 Active FreeStyle Lancets lancetIndications :Type 2 diabetes mellitus without complication, with long-term current use of insulin ([facility]) Check blood glucose at least 3 [...] Vaccine (1 of 2) 2022 Influenza Vaccine 10/10/2024 COVID-19 Vaccine ( - 2023-2 5 season) 2024 Procedures Procedure Name Priority Date/Time Associated Diagnosis [...] Jc Ayers MD LAB BLOOD ORDERABLES Final Resu lt HOSPITAL LAB from Last 3 Months or Most Recently Relevant to Health Maintenance Insurance MEDICAID OUT OF STATE [facility] Advance Directives * Full Code (Latest Code Status on File) Date Activated Date Inactivated Comments 04/02/2020 7:54 PM Healthcare Agents on File Name Relationship Healthcare Agent Relationshi p Communication Fang Garduno Parent 4. Next of Kin ( Spouse, Adult Child, Parent, Adult Sibling, Grandparent) Care Teams Slaughterer Religious Ritual Relationship Specialty Start Date End Date Julio Carter MD [address] [place] [address] [address] [place] [address] PCP - General Internal Medicine 04/02/20
[2024-11-28 14:37] VITALS: BP 132/68; PULSE 87; O2SAT 97; BMI 43.9
[2024-11-28 14:46] LABS: Glucose, Whole Blood 118 mg/dL (60-115)
== END 2024-11-28 15:07 | disposition home or self-care (01) ==
LOC: HO.ENCR 14:27
PROVIDERS: Visit Provider Physician Assistant Medical
DX: E11.65 Type 2 diabetes mellitus with hyperglycemia (principal); E11.42 Type 2 diabetes mellitus with diabetic polyneuropathy; F19.10 Other psychoactive substance abuse, uncomplicated

== ENCOUNTER → 2024-11-28 14:27 | Outpatient (BNVA) | payer OTHER, SELFPAY | PROVIDERS: Visit Provider Physician Assistant Medical | DX: E11.65 Type 2 diabetes mellitus with hyperglycemia (principal); E11.42 Type 2 diabetes mellitus with diabetic polyneuropathy; F19.10 Other psychoactive substance abuse, uncomplicated | CPT/HCPCS: 82947; 99212 ==

== ENCOUNTER 2024-12-23 13:43 | Outpatient (AMB) | payer OTHER, SELFPAY ==
--- NOTE | 2024-12-23 13:46 | A.OFFVIS_ITS ---
Intake Intake Visit Reasons: 60 min Broadcast Program Director Required: No Accompanied by: Self / Same As Patient Allergies Penicillins (PENICILLINS) Allergy (Unknown, Verified 11/28/24 14:37) RASH dulaglutide (From Trulicity) Adverse Reaction (Intermediate, Verified 11/28/24 15:21) abdominal pain, diarrhea HPI Comprehensive Diabetes Asmnt Most Recent Diabetes Results: 2 Creatinine, (0.5-1.4) 1.06 mg/dL 11/08/24 BUN, (9-16) 18 mg/dL H 11/08/24 Sodium, (135-145) 142 mmol/L 11/08/24 Potassium, (3.3-5.1) 4.7 mmol/L 11/08/24 Chloride, (96-108) 104 mmol/L 11/08/24 Carbon Dioxide, (22-29) 32 mmol/L H 11/08/24 Calcium, (8.4-10.2) 9.3 mg/dL 11/08/24 AST, (5-37) 23 U/L 11/08/24 ALT, (0-40) 32 U/L 11/08/24 Total Protein, (6.5-8.0) 7.5 g/dL 11/08/24 Albumin, (3.5-5.0) 4.4 g/dL 11/08/24 [facility] Medical History Noncompliance Callus of foot Diabetic polyneuropathy Food insecurity Uncontrolled type 2 diabetes mellitus with hyperglycemia Tachycardia Type 2 diabetes mellitus with hyperglycemia Paroxysmal atrial fibrillation Morbid obesity Substance abuse Essential hypertension Cocaine abuse Erectile dysfunction Polysubstance abuse Paroxysmal atrial fibrillation with rapid ventricular response Lumbar degenerative disc disease Substance abuse Diabetes Depression Overactive bladder Arthritis BPH (benign prostatic hyperplasia) Asthma Seizure Morbid obesity with BMI of 40.0-44.9, adult Benign essential hypertension Insomnia Primary osteoarthritis of both knees Anxiety Family history of thyroid disorder Surgical History No history of previous surgery Family History Father ETOH abuse Mother Diabetes Arthritis of knee Hypertension Other Mental health problem Substance abuse Social History Household Members: Friend(s) Household Members Other:: rents a room in a house Housing: House Housing Other:: rents a room Alcohol intake: current Alcohol intake frequency: does not drink Comment: patient refused Patient Tobacco Use Status: Never used Tobacco e-Cigarette/Vaping Use: Never Used Second Hand Smoke Exposure: No Substance Use Type: Marijuana Advance Directives Date on File: 02/23/22 service: No Current occupational status: unemployed and disabled Sexual orientation: Straight/Heterosexual Cognitive needs: No Hearing needs: No Vision needs: No Assessment & Plan Assessment & Plan (1) Type 2 diabetes mellitus with hyperglycemia: Comment: Admitted for [facility] in July 2019 Code(s): E11.65 - Type 2 diabetes mellitus with hyperglycemia Qualifiers: Diabetes mellitus intermediate insulin use: without intermediate use Qualified Code(s): E11.65 - Type 2 diabetes mellitus with hyperglycemia Plan: Pt did not bring Dexcom G7 to todays visit Reports he if moving at this time and there is a lot of stress Pt has f/u appt with endocrine PA on 12/26/24 See instructions below Medications: Discontinued semaglutide (Ozempic) Discontinued Reason: Doctor's Order 2 mg (0.75 mL) subcut QWEEK 3 mL 5RF Patient Instructions: Get lab work done on December 25. Put the Dexcom on for your visit on December 26. follow up with Diabetes Education nurse in 4 month Coding Level of Care Code Est Pt Level 1 (07287) Diagnoses Type 2 diabetes mellitus with hyperglycemia, without long-term current use of insulin E11.65 Diabetes mellitus intermediate insulin use: without long term care administrator use
--- OUTSIDE RECORDS SUMMARY | 2024-12-23 16:39 | XMS_ITS | Clinical Summary ---
Author Organization [employer] [facility] Address [address] [place] [address] Care Team Providers Care Plasterer Helper Name Role Phone Unavailable Primary Care Provider [...] to complete [place] [address] [facility] MEDICAID STAND ADULT * Guarantor: Herman Mcintosh Account Type Relation to Patient Date of Phone Billing Address Personal/Family [place] [address] * Guarantor: Herman Mcintosh Account Type Relation to Patient Date of Phone Billing Address Personal/[place] [address] * Guarantor: Herman Mcintosh Account Type Relation to Patient Date of Phone Billing Address Personal/[place] [address] * Guarantor: Herman Mcintosh Account Type Relation to Patient Date of Phone Billing Address Personal/[place] [address]
--- OUTSIDE RECORDS SUMMARY | 2024-12-23 16:39 | XMS_ITS | Clinical Summary ---
Author Organization [facility] Address [address] [place] [address] Care Team Providers Care Sheriff'S Sergeant Name Role Phone Julio Carter MD Primary Care Provider [phone]- [phone] Allergies No known active allergies Medications insulin [...] Health Maintenance Insurance [place] OUT OF [place] [facility]ives * Full Code (Latest Code Status on File) Date Activated Date Inactivated Comments 04/02/2020 7:54 PM Healthcare Agents on File Name Relationship Healthcare Agent Relationshi p Communication Fang Garduno Parent 4. Next of Kin ( Spouse, Adult Child, Parent, Adult Sibling, Grandparent) Care Teams Sheriff'S Sergeant Relationship Specialty Start Date End Date Julio Carter MD [address] [place] [address] [address] [place] [address] PCP - General Internal Medicine 04/02/20
--- OUTSIDE RECORDS SUMMARY | 2024-12-23 16:39 | XMS_ITS | Clinical Summary ---
Author Organization [address] [facility] Address [address] [place] [address] Phone Care Team Providers Care Box Stamper Name Role Phone Julio Carter MD Primary Care Provider Social History Tobacco Use Types Packs/Day Years Used Date Smoking Tobacco: Never Assessed Sex and Gender Information Value Date Recorded Sex Assigned at Not on file Legal Sex Male 5:41 AM EST Gender Identity Not on file Sexual Orientation Not on file Plan of Treatment Health Maintenance Due Date Last Done Comments Colorectal Cancer Screening: Colonoscopy 1972 Diabetes: Annual GFR (Glomer ular Filtration Rate) 1972 Diabetes: Annual Foot Exam 1982 Diabetes: Annual Retina Eye Exam 1982 DTaP,Tdap,and Td Vaccines (1 - Tdap) 05/27/1991 Hepatitis B Vaccines (1 of 3 - 19+ 3-dose series) 05/27/1991 Pneumococcal Vaccine: 50+ Ye ars (1 of 2 - PCV) 05/27/1991 Zoster Vaccines (1 of 2) 2022 Depression Screening 03/12/2024 Cholesterol Screening (Lipid Panel) 09/16/2024 Diabetes: Annual Urine Albumin-Creatinine Ratio (uACR) 09/16/2024 Diabetes: Blood Sugar Contro l Test (HGBA1C) 09/16/2024 HIV Screening 09/16/2024 Hepatitis C Screening 09/16/2024 Social Influencers of Health Screening 09/16/2024 COVID-19 Vaccine (1 - 2023-2 5 season) 2024 Influenza Vaccine (#1) 2024 RSV Immunization Adult Patie nts (1 - 1-dose 75+ series) 05/27/2047 HIB [...] patient's age to complete this topic Insurance PLAN Care Teams Box Stamper Relationship Specialty Start Date End Date Julio Carter MD [address] [place] [address] [address] [place], [place] PCP - General Internal Medicine 09/16/24
--- OUTSIDE RECORDS SUMMARY | 2024-12-23 16:39 | XMS_ITS | Encounter Summary ---
Author Organization [employer] Address [address] [place] [address] Care Team Providers Care Nurse Charge Rn Name Role Phone Unavailable Primary Care Provider Unavailabl e Reason for Visit * Reason Onset Date Comments medication 07/12/2022 Appointment 07/12/2022 Encounter Details Date Type Department Care Team (Late st Contact Info) Description 07/12/2022 Telephone [facility] ADULT DENTAL [address] [place] [address] Storm Maciel DDS [address] [place] [address] medication; Appointment Social History Tobacco Use Types [...]
== END 2024-12-23 14:04 | disposition home or self-care (01) ==
PROVIDERS: PCP Internal Medicine; Visit Provider Registered Nurse Diabetes Educator
DX: E11.65 Type 2 diabetes mellitus with hyperglycemia (principal)

== ENCOUNTER → 2024-12-23 13:43 | Outpatient (BNVA) | payer OTHER, SELFPAY | PROVIDERS: PCP Internal Medicine; Visit Provider Registered Nurse Diabetes Educator | DX: E11.65 Type 2 diabetes mellitus with hyperglycemia (principal) | CPT/HCPCS: 99211 ==

== ENCOUNTER 2024-12-26 14:40 | Outpatient (AMB) | payer OTHER, SELFPAY ==
--- NOTE | 2024-12-26 14:42 | A.OFFVIS_ITS ---
Vital Signs 12/26/24 14:43 Height 5 ft 11 in Weight 317 lb 0.395 oz BMI 44.2 BP 134/72 Blood Pressure Location Lt brachial Position Sitting Pulse 100 Pulse Source Pulse Oximeter Pulse Oximetry (%) 97 Oxygen Delivery Method Room Air Intake Visit Reasons: type II dm Intake Note: Patient present today to follow up on Type 2 Diabetes Mellitus.? Last Diabetic Eye exam: Due, has an appointment for next year 2025. Last Podiatry Visit: Does not see a Manager Multimedia Random Glucose:? 392 mg/dl HgA1C: Metal Spinner Required: No Accompanied by: Self / Same As Patient Allergies Penicillins (PENICILLINS) Allergy (Unknown, Verified 12/26/24 14:49) RASH dulaglutide ([facility]) Adverse Reaction (Intermediate, Verified 12/26/24 14:49) abdominal pain, diarrhea Medication List - Last Reconciled 12/26/24 by GHULAM Jean amiodarone 400 mg (2 x 200 mg) PO BID apixaban (Eliquis) 5 mg PO BID 30 days blood sugar diagnostic (FreeStyle Lite Strips) USE 4X DAILY DIRECTED TO MONITOR BLOOD SUGARS blood-glucose meter (FreeStyle Lite Meter kit) Use as directed to check glucose twice daily. blood-glucose sensor (Dexcom G7 Sensor device) As directed change every 10 days blood-glucose,jewelry consultant,cont (Dexcom G7 Table Top Tile Setter) As directed blood-glucose,jewelry consultant,cont (Dexcom G7 Table Top Tile Setter) DIRECTED buspirone 30 mg PO BID clotrimazole-betamethasone 1-0.05 % 1 appl topical BID PRN diltiazem HCl CD (Cardizem CD) 240 mg PO DAILY escitalopram oxalate 20 mg PO DAILY fluticasone furoate 27.5 mcg/actuation 2 sprays intranasal DAILY PRN insulin degludec (Tresiba FlexTouch U-200 insulin) 90 units (0.45 mL) subcut BEDTIME insulin lispro (Humalog KwikPen (U-100) Insulin) 10 units subcut TID lancets (FreeStyle Lancets) Use to monitor blood glucose 4 times daily. lidocaine 5% 2 patches topical DAILY PRN 30 days losartan 25 mg PO DAILY 90 days metformin ER 2,000 mg (4 x 500 mg) PO DAILY methadone (Methadose) 20 mg (2 mL) PO DAILY@0800 metoprolol tartrate 25 mg PO BID pen needle, diabetic USE DIRECTED ONCE DAILY [ROLLATOR As directed] sildenafil 50 mg PO DAILY PRN sodium chloride 0.65% (Saline Nasal) 2 sprays intranasal QID PRN tirzepatide (Mounjaro) 2.5 mg (0.5 mL) subcut QWEEK tramadol 50 mg PO TID PRN 30 days Ventolin HFA 90 mcg/actuation (albuterol sulfate) 2 puffs inhalation Q4-6H PRN NS zolpidem 10 mg PO BEDTIME PRN HPI Comments Details: This is a 54-year-old male with a past medical history of polysubstance abuse, uncontrolled type 2 diabetes, depression, atrial flutter with RVR, PTSD presenting for diabetic management. Hemoglobin A1c today 8.5% down from 9.5% 09/09/2024 down from 13.9% 03/13/2024. No new sensor data. Patient says it was misplaced though he was given one at [facility] appointment within the past week. Current medications: Mounjaro 2.5 mg weekly, Tresiba 90 units nightly, metformin ER 2000 mg daily, Januvia 100 mg and Humalog 7 units TID before meals. He was taking 10 units of Humalog before meals, but he says he ran out of the medication or misplaced it so he has not been taking it. He forgot Tresiba yesterday, and he ate before he came here. POC 396. Denies symptoms of hyperglycemia. Past medications: Lantus discontinued SGLT2 not prescribed-history of balanitis Trulicity caused diarrhea and abdominal pain Ozempic switch to Mounjaro due to insurance Compliance issues: He has struggled with compliance, but he is doing better. Endorses polyuria, polydipsia Denies any hypoglycemic events. Complications: Neuropathy ROS: Constitutional: No fevers or chills. Eyes: No vision changes, blurry vision, double vision Respiratory: No shortness of breath, cough or sputum production. Cardiovascular: No chest pain, chest pressure, palpitations. Endocrine: See HPI Psychiatric: Endorses depression and anxiety. Denies SI/HI. Physical exam: Constitutional: Alert, in no distress. Neck: Supple, Full range of motion. No lymphadenopathy. No palpable thyroid masses. Respiratory: Clear to auscultation. Cardiovascular: S1 S2 regular. No murmurs. Psychiatric: Normal mood and affect Feet: There is some dry skin but no fissures or open wounds. Warm and well perfused. Intact DP pulses. No ulcerations. [facility] Medical History Noncompliance Callus of foot Diabetic polyneuropathy Food insecurity Uncontrolled type 2 diabetes mellitus with hyperglycemia Tachycardia Type 2 diabetes mellitus with hyperglycemia Paroxysmal atrial fibrillation Morbid obesity Substance abuse Essential hypertension Cocaine abuse Erectile dysfunction Polysubstance abuse Paroxysmal atrial fibrillation with rapid ventricular response Lumbar degenerative disc disease Substance abuse Diabetes Depression Overactive bladder Arthritis BPH (benign prostatic hyperplasia) Asthma Seizure Morbid obesity with BMI of 40.0-44.9, adult Benign essential hypertension Insomnia Primary osteoarthritis of both knees Anxiety Family history of thyroid disorder Surgical History No history of previous surgery Family History Father ETOH abuse Mother Diabetes Arthritis of knee Hypertension Other Mental health problem Substance abuse Social History Household Members: Friend(s) Household Members Other:: rents a room in a house Housing: House Housing Other:: rents a room Alcohol intake: current Alcohol intake frequency: does not drink Comment: patient refused Patient Tobacco Use Status: Never used Tobacco e-Cigarette/Vaping Use: Never Used Second Hand Smoke Exposure: No Substance Use Type: Marijuana Advance Directives Date on File: 02/23/22 service: No Current occupational status: unemployed and disabled Sexual orientation: Straight/Heterosexual Cognitive needs: No Hearing needs: No Vision needs: No Physical Exam Vital Signs: Last Vital Signs Pulse 100 12/26/24 14:43 BP 134/72 12/26/24 14:43 Pulse Ox 97 12/26/24 14:43 Oxygen Delivery Method Room Air 12/26/24 14:43 BMI result Body Mass Index 44.2 Results Reviewed Results Reviewed: Laboratory Last Values Glucose (Clinic) 392 mg/dL (60-115) H* 12/26/24 14:55 Laboratory Tests 08/16/23 03/13/24 03/13/24 15:23 15:41 15:49 Plt Count Creatinine Estimated GFR Hgb A1c (Clinic) AST ALT Triglycerides 200 H Cholesterol 150 LDL Cholesterol, Calc 69 HDL Cholesterol 41 Vitamin B12 626 TSH 1.14 Urine Creatinine 103.05 Urine Microalbumin 27.0 Microalb/Creat Ratio 26.2 06/13/24 06/25/24 14:42 19:04 Plt Count 253 Creatinine 1.00 Estimated GFR > 60 Hgb A1c (Clinic) 10.3 H AST 24 ALT 28 Triglycerides Cholesterol LDL Cholesterol, Calc HDL Cholesterol Vitamin B12 TSH Urine Creatinine Urine Microalbumin Microalb/Creat Ratio Laboratory Tests 11/08/24 23:30 Creatinine 1.06 Estimated GFR > 60 AST 23 ALT 32 Assessment & Plan Assessment & Plan (1) Uncontrolled type 2 diabetes mellitus with hyperglycemia: Code(s): E11.65 - Type 2 diabetes mellitus with hyperglycemia Category: Medical (2) Diabetic polyneuropathy: Code(s): E11.42 - Type 2 diabetes mellitus with diabetic polyneuropathy Category: Medical Qualifiers: Diabetes mellitus type: type 2 Qualified Code(s): E11.42 - Type 2 diabetes mellitus with diabetic polyneuropathy (3) Polysubstance abuse: Code(s): F19.10 - Other psychoactive substance abuse, uncomplicated Category: Medical Plan In summary this is a 54-year-old male with uncontrolled type 2 diabetes. Treatment complicated by polysubstance abuse and noncompliance. He is doing b erika recently. He started Mounjaro yesterday. Continue 2.5 mg weekly. Plan to increase to 5 mg at his next visit. Stop Januvia. Tresiba 90 units nightly metformin ER 2000 mg daily Take Humalog 10 units three times daily 10-15 minutes before meals. If you experience low blood sugar, treat this by eating a chewable fruit candy like skittles or jelly beans (about 8 pieces), 4 ounces (1/2 cup) of fruit juice (not diet), 1 tablespoon of honey or 4 glucose tablets. If your blood sugar is under 50, take double the amount of one of the above. Recheck your blood sugar in 15 minutes. Reminded him to bring his CGM or glucometer to all appointments. Eye exam is scheduled in 2025. Follow up in 3 weeks for type 2 diabetes. Reminded to have lab work completed. Orders: Orders AMB Hemoglobin A1c Today E11.65 - Type 2 diabetes mellitus with hyperglycemia Medications: New insulin lispro (Humalog KwikPen (U-100) Insulin) Administer three times daily 15 minutes before meals 7 units (0.07 mL) subcut TID 15 mL 5RF Changed From insulin lispro (Humalog KwikPen (U-100) Insulin) Administer three times daily 15 minutes before meals 7 units (0.07 mL) subcut TID 15 mL 5RF To insulin lispro (Humalog KwikPen (U-100) Insulin) Administer three times daily 15 minutes before meals 10 units subcut TID Discontinued sitagliptin phosphate (Januvia) Discontinued Reason: Doctor's Order 100 mg PO DAILY 90 tabs 3RF Patient Instructions: Continue Tresiba 90 units nightly Restart humalog (lispro) 10 units before meals Continue Mounjaro 2.5 mg weekly Continue Metformin ER 2000 mg daily Stop Januvia If you experience low blood sugar, treat this by eating a chewable fruit candy like skittles or jelly beans (about 8 pieces), 4 ounces (1/2 cup) of fruit juice (not diet), 1 tablespoon of honey or 4 glucose tablets. If your blood sugar is under 50, take double the amount of one of the above. Recheck your blood sugar in 15 minutes. Coding Level of Care Code Est Pt Level 4 (23022) Complex EM visit Add On G2211 Diagnoses Uncontrolled type 2 diabetes mellitus with hyperglycemia E11.65 Diabetic polyneuropathy associated with type 2 diabetes mellitus E11.42 Diabetes mellitus type: type 2 Polysubstance abuse F19.10
[2024-12-26 14:43] VITALS: BP 134/72; PULSE 100; O2SAT 97; BMI 44.2
[2024-12-26 14:59] LABS: Glucose, Whole Blood 392 mg/dL (60-115)
--- OUTSIDE RECORDS SUMMARY | 2024-12-26 17:09 | XMS_ITS | Encounter Summary ---
Author Organization [employer] Address [address] [place] [address] Care Team Providers Care Shop Mechanic Helper Name Role Phone Unavailable Primary Care Provider Unavailabl e Reason for Visit * Reason Onset Date Comments medication 07/12/2022 Appointment 07/12/2022 Encounter Details Date Type Department Care Team (Late st Contact Info) Description 07/12/2022 Telephone [facility] ADULT DENTAL [address] [place] [address] Storm Maciel DDS [address] [place] [address] medication; Appointment Social History Tobacco Use Types [...]
--- OUTSIDE RECORDS SUMMARY | 2024-12-26 17:09 | XMS_ITS | Clinical Summary ---
Author Organization [facility] Address [address] [place] [address] Phone Care Team Providers Care Air Press Operator Name Role Phone Julio Carter [...] ars (1 of 2 - PCV) 05/27/1991 RSV Immunization Adult Patie nts (1 - Risk 50-74 years 1-dose series) 2022 Zoster Vaccines (1 of 2) 2022 Depression [...] patient's age to complete this topic [place] [address] [address] [place] [address] Care Teams Air Press Operator Relationship Specialty Start Date End Date Julio Carter MD [address] [place] [address] [address] [place], [place] PCP - General Internal Medicine 09/16/24
--- OUTSIDE RECORDS SUMMARY | 2024-12-26 17:09 | XMS_ITS | Clinical Summary ---
Author Organization [facility] Address [address] [place] [id number] Care Team Providers Care Geotechnical Intern Name Role Phone Julio Carter MD Primary Care Provider [phone] Allergies No known active allergies Medications insulin glargine, BASAGLAR KWIKPEN, 100 UNIT/ML pen injectionIndicati ons:Type 2 diabetes mellitus without complication, with long-term current use of insulin ([facility]) Inject 30 Units under the skin nightly. 15 mL 1 Active metFORMIN (GLUCOPHAGE) 1000 MG tabletIndications :Type 2 diabetes mellitus without complication, with long-term current use of insulin (HCC) Take 1 tablet (1,000 mg total) by mouth 2 (two) times a day. 60 tablet 1 Active Trulicity 0.75 MG/0.5ML subcutaneous injectionIndicati ons:Type 2 diabetes mellitus without complication, with long-term current use of insulin ([facility]) Inject 0.75 mg under the skin once a week. Every sunday 2 mL 1 Active amLODIPine (NORVASC) 5 MG tabletIndications :Type 2 diabetes mellitus without complication, with long-term current use of insulin ([facility]),Essential hypertension Take 1 tablet (5 mg total) by mouth daily. 30 tablet 1 Active lisinopril (PRINIVIL,ZeSTRIL ) 30 MG tabletIndications :Type 2 diabetes mellitus without complication, with long-term current use of insulin ([facility]),Essential hypertension Take 1 tablet (30 mg total) by mouth daily. 30 tablet 1 Active metoPROLOL TARTRATE (LOPRESSOR) 50 MG tabletIndications :Paroxysmal atrial fibrillation (HCC),Type 2 diabetes mellitus without complication, with long-term current use of insulin ([facility]),Essential hypertension Take 1 tablet (50 mg total) by mouth every 12 (twelve) hours around the clock. 60 tablet 1 Active busPIRone (BUSPAR) 30 MG tabletIndications :Suicidal behavior without attempted self-injury,Type 2 diabetes mellitus without complication, with long-term current use of insulin ([facility]) Take 1 tablet (30 mg total) by mouth 3 (three) times a day. 90 tablet 1 Active traMADol (ULTRAM) 50 MG tabletIndications :Type 2 diabetes mellitus without complication, with long-term current use of insulin ([facility]) Take 1 tablet (50 mg total) by mouth 3 (three) times a day as needed for moderate pain or severe pain. For pain 15 tablet 1 Active albuterol (PROVENTIL HFA; VENTOLIN HFA) 108 (90 Base) MCG/ACT inhalerIndication s:Type 2 diabetes mellitus without complication, with long-term current use of insulin ([facility]) Inhale 2 puffs 4 times daily (every 6 hours) as needed for wheezing or shortness of breath. 1 Inhaler 1 Active hydrOXYzine HCl (ATARAX) 25 MG tabletIndications :Type 2 diabetes mellitus without complication, with long-term current use of insulin ([facility]) Take 1 tablet (25 mg total) by mouth 3 (three) times a day as needed for itching or anxiety. 30 tablet 1 Active escitalopram (LEXAPRO) 20 MG tabletIndications :Type 2 diabetes mellitus without complication, with long-term current use of insulin ([facility]) Take 1 tablet (20 mg total) by mouth daily. 30 tablet 1 Active apixaban (ELIQUIS) 5 MG tabletIndications :Paroxysmal atrial fibrillation (HCC),Type 2 diabetes mellitus without complication, with long-term current use of insulin ([facility]) Take 1 tablet (5 mg total) by mouth every 12 (twelve) hours around the clock. 60 tablet 1 Active ALPRAZolam (XANAX) 2 MG tabletIndications :Suicidal behavior without attempted self-injury,Type 2 diabetes mellitus without complication, with long-term current use of insulin ([facility]) Take 1 tablet (2 mg total) by mouth nightly as needed for anxiety. 5 tablet 1 Active lidocaine (LIDODERM) 5 % patchIndications: Type 2 diabetes mellitus without complication, with long-term current use of insulin ([facility]) Place 1 patch on the skin daily. Apply patch and leave on for 12 hours then remove. Patch may remain on skin for 12 hours per day. 30 patch 1 Active diclofenac (VOLTAREN) 1 % gelIndications:Ty pe 2 diabetes mellitus without complication, with long-term current use of insulin ([facility]) Apply 2 g topically 2 (two) times a day as needed for pain or muscle/joint pain. 100 g 1 Active FREESTYLE LITE stripIndications: Type 2 diabetes mellitus without complication, with long-term current use of insulin ([facility]) 100 test strips by Other (specify) route 3 (three) times a day before meals. Use as instructed 100 test strip 1 Active tamsulosin (FLOMAX) 0.4 MG capsuleIndication s:Type 2 diabetes mellitus without complication, with long-term current use of insulin ([facility]) Take 1 capsule (0.4 mg total) by mouth daily. 30 capsule 1 Active B-D ULTRAFINE III SHORT PEN 31G X 8 MM MiscIndications:T ype 2 diabetes mellitus without complication, with long-term current use of insulin ([facility]) Check blood glucose at least 3 times daily and once in the morning fasting. For diabetes mellitus ICD E 11.9 50 pen needle 1 Active Insulin Pen Needle 31G X 8 MM MiscIndications:T ype 2 diabetes mellitus without complication, with long-term current use of insulin ([facility]) Check blood glucose at least 3 times daily and once in the morning fasting. For diabetes mellitus ICD E 11.9 50 pen needle 1 Active Blood Glucose Monitoring Suppl (FreeStyle Lite) DeviceIndications :Type 2 diabetes mellitus without complication, with long-term current use of insulin ([facility]) Check blood glucose at least 3 times daily and once in the morning fasting. For diabetes mellitus ICD E 11.9 1 Device 1 Active FREESTYLE LITE stripIndications: Type 2 diabetes mellitus without complication, with long-term current use of insulin ([facility]) Check blood glucose at least 3 times daily and once in the morning fasting. For diabetes mellitus ICD E 11.9 100 test strip 1 Active FreeStyle Lancets lancetIndications :Type 2 diabetes mellitus without complication, with long-term current use of insulin ([facility]) Check blood glucose at least 3 times [...] Health Maintenance Insurance MEDICAID [facility] Advance Directives * Full Code (Latest Code Status on File) Date Activated Date Inactivated Comments 04/02/2020 7:54 PM Healthcare Agents on File Name Relationship Healthcare Agent Relationshi p Communication Fang Garduno Parent 4. Next of Kin ( Spouse, Adult Child, Parent, Adult Sibling, Grandparent) Care Teams Geotechnical Intern Relationship Specialty Start Date End Date Julio Carter MD [address] [place] [address] [address] [place] [address] PCP - General Internal Medicine 04/02/20
--- OUTSIDE RECORDS SUMMARY | 2024-12-26 17:09 | XMS_ITS | Clinical Summary ---
Author Organization [employer] [facility] Address [address] [address] [place] [address] Care Team Providers Care Software Sales Executive Name Role Phone Unavailable Primary Care Provider [...] to complete [place] [address] [facility] MEDICAID STAND ADULT * Guarantor: Herman Mcintosh Account Type Relation to Patient Date of Phone Billing Address Personal/Family [place] [address] * Guarantor: Herman Mcintosh Account Type Relation to Patient Date of Phone Billing Address Personal/[place] [address] * Guarantor: Herman Mcintosh Account Type Relation to Patient Date of Phone Billing Address Personal/[place] [address] * Guarantor: Herman Mcintosh Account Type Relation to Patient Date of Phone Billing Address Personal/[place] [address]
== END 2024-12-26 15:14 | disposition home or self-care (01) ==
LOC: HO.ENCR 14:41
PROVIDERS: Visit Provider Physician Assistant Medical
DX: E11.65 Type 2 diabetes mellitus with hyperglycemia (principal); E11.42 Type 2 diabetes mellitus with diabetic polyneuropathy; F19.10 Other psychoactive substance abuse, uncomplicated

== ENCOUNTER → 2024-12-26 14:40 | Outpatient (BNVA) | payer OTHER, SELFPAY | PROVIDERS: Visit Provider Physician Assistant Medical | DX: E11.65 Type 2 diabetes mellitus with hyperglycemia (principal); E11.42 Type 2 diabetes mellitus with diabetic polyneuropathy; F19.10 Other psychoactive substance abuse, uncomplicated | CPT/HCPCS: 82947; 83036; 99212 ==

== ENCOUNTER 2025-01-16 15:29 | Outpatient (AMB) | payer OTHER, SELFPAY ==
--- NOTE | 2025-01-16 15:31 | MHC.OFFVIS ---
Vital Signs 01/16/25 15:34 01/16/25 15:59 Height 5 ft 11 in Weight 310 lb 10.101 oz BMI 43.3 BP 148/88 H Blood Pressure Location Lt brachial Position Sitting Pulse 105 H 96 Pulse Source Pulse Oximeter Pulse Oximetry (%) 97 Oxygen Delivery Method Room Air Intake Visit Reasons: Type II diabetes Intake Note: Patient present today to follow up on Type 2 Diabetes Mellitus. Last Diabetic Eye exam: Due, has an appointment for next year 2025. Last Podiatry Visit: Does not see a Watch Engine Operator Random Glucose: 162 mg/dl HgA1C: 8.5% 12/26/2024 Barrel Straightener Required: No Accompanied by: Self / Same As Patient Allergies Penicillins (PENICILLINS) Allergy (Unknown, Verified 01/16/25 15:35) RASH dulaglutide (From Trulicity) Adverse Reaction (Intermediate, Verified 01/16/25 15:35) abdominal pain, diarrhea HPI Comments Details: This is a 54-year-old male with a past medical history of polysubstance abuse, uncontrolled type 2 diabetes, depression, atrial flutter with RVR, PTSD presenting for diabetic management. Hemoglobin A1c 8.5% down from 9.5% 09/09/2024 down from 13.9% 03/13/2024. Reviewed glucometer download In range 76% Average glucose 166 Readings per day 1.2 Highest 245 Lowest 125 Mostly checking blood sugars at night. Patient says he has CGM at home. He will work on locating it this weekend. Current medications: Mounjaro 2.5 mg weekly, Tresiba 90 units nightly, metformin ER 2000 mg daily, and Humalog 10 units TID before meals. Past medications: Lantus discontinued SGLT2 not prescribed-history of balanitis Trulicity caused diarrhea and abdominal pain Ozempic switched to Mounjaro due to insurance Januvia discontinued. Compliance issues: He has struggled with compliance, but he is doing much better. Sees Mariaelena VENTURA. Denies hypoglycemic events. Complications: Neuropathy ROS: Constitutional: No fevers or chills. Eyes: No vision changes, blurry vision, double vision Respiratory: No shortness of breath, cough or sputum production. Cardiovascular: No chest pain, chest pressure, palpitations. Endocrine: Denies polyuria and polydipsia Psychiatric: Endorses depression and anxiety. Denies SI/HI. Physical exam: Constitutional: Alert, in no distress. Neck: Supple, Full range of motion. No lymphadenopathy. No palpable thyroid masses. Respiratory: Clear to auscultation. Cardiovascular: S1 S2 regular. No murmurs. Psychiatric: Normal mood and affect [facility] Medical History (Updated 01/16/25 @ 16:17 by GHULAM Jean) Obesity Noncompliance Callus of foot Diabetic polyneuropathy Food insecurity Uncontrolled type 2 diabetes mellitus with hyperglycemia Tachycardia Type 2 diabetes mellitus with hyperglycemia Paroxysmal atrial fibrillation Morbid obesity Substance abuse Essential hypertension Cocaine abuse Erectile dysfunction Polysubstance abuse Paroxysmal atrial fibrillation with rapid ventricular response Lumbar degenerative disc disease Substance abuse Diabetes Depression Overactive bladder Arthritis BPH (benign prostatic hyperplasia) Asthma Seizure Morbid obesity with BMI of 40.0-44.9, adult Benign essential hypertension Insomnia Primary osteoarthritis of both knees Anxiety Family history of thyroid disorder Surgical History No history of previous surgery Family History Father ETOH abuse Mother Diabetes Arthritis of knee Hypertension Other Mental health problem Substance abuse Social History Household Members: Friend(s) Household Members Other:: rents a room in a house Housing: House Housing Other:: rents a room Alcohol intake: current Alcohol intake frequency: does not drink Comment: patient refused Patient Tobacco Use Status: Never used Tobacco e-Cigarette/Vaping Use: Never Used Second Hand Smoke Exposure: No Substance Use Type: Marijuana Advance Directives Date on File: 02/23/22 service: No Current occupational status: unemployed and disabled Sexual orientation: Straight/Heterosexual Cognitive needs: No Hearing needs: No Vision needs: No Physical Exam Vital Signs: Last Vital Signs Pulse 105 H 01/16/25 15:34 BP 148/88 H 01/16/25 15:34 Pulse Ox 97 01/16/25 15:34 Oxygen Delivery Method Room Air 01/16/25 15:34 BMI result Body Mass Index 43.3 Results Reviewed Results Reviewed: Laboratory Last Values Glucose (Clinic) 162 mg/dL (60-115) H 01/16/25 15:39 Laboratory Tests 08/16/23 03/13/2425 15:23 15:41 15:49 Plt Count Creatinine Estimated GFR Hgb A1c (Clinic) AST ALT Triglycerides 200 H Cholesterol 150 LDL Cholesterol, Calc 69 HDL Cholesterol 41 Vitamin B12 626 TSH 1.14 Urine Creatinine 103.05 Urine Microalbumin 27.0 Microalb/Creat Ratio 26.2 06/13/24 06/25/24 14:42 19:04 Plt Count 253 Creatinine 1.00 Estimated GFR > 60 Hgb A1c (Clinic) 10.3 H AST 24 ALT 28 Triglycerides Cholesterol LDL Cholesterol, Calc HDL Cholesterol Vitamin B12 TSH Urine Creatinine Urine Microalbumin Microalb/Creat Ratio Laboratory Tests 11/08/24 23:30 Creatinine 1.06 Estimated GFR > 60 AST 23 ALT 32 Assessment & Plan Assessment & Plan (1) Uncontrolled type 2 diabetes mellitus with hyperglycemia: Code(s): E11.65 - Type 2 diabetes mellitus with hyperglycemia Category: Medical (2) Obesity: Code(s): E66.9 - Obesity, unspecified Category: Medical Qualifiers: Obesity classification: adult class 3 (BMI >= 40) Serious obesity comorbidity presence: with serious comorbidity Body mass index: BMI 40.0-44.9 Obesity type: due to excess calories Qualified Code(s): E66.01 - Morbid (severe) obesity due to excess calories; Z68.41 - Body mass index [BMI] 40.0-44.9, adult; Z68.41 - Body mass index [BMI] 40.0-44.9, adult (3) Benign essential hypertension: Code(s): I10 - Essential (primary) hypertension Category: Medical Plan In summary this is a 54-year-old male with uncontrolled type 2 diabetes. He is doing better recently. Recommended increasing Mounjaro to 5 mg, but he would like to reevaluate this in a month. Continue 2.5 mg weekly at this time. Tresiba 90 units nightly Metformin ER 2000 mg daily Humalog 10 units three times daily 10-15 minutes before meals. If you experience low blood sugar, treat this by eating a chewable fruit candy like skittles or jelly beans (about 8 pieces), 4 ounces (1/2 cup) of fruit juice (not diet), 1 tablespoon of honey or 4 glucose tablets. If your blood sugar is under 50, take double the amount of one of the above. Recheck your blood sugar in 15 minutes. Reminded him to bring his CGM or glucometer to all appointments. Eye exam is scheduled in 2025. His blood pressure is elevated. Reports he smoked before the appointment. Recheck at next visit. Follow up in 4 weeks for type 2 diabetes. Reminded to have lab work completed. Patient Instructions: Continue Mounjaro 2.5 mg weekly Continue Tresiba 90 units nightly Continue metformin ER 2000 mg daily Continue Humalog 10 units three times daily before meals Coding Level of Care Code Est Pt Level 4 (74752) Complex EM visit Add On G2211 Diagnoses Uncontrolled type 2 diabetes mellitus with hyperglycemia E11.65 Class 3 severe obesity due to excess calories with serious comorbidity and body mass index (BMI) of 40.0 to 44.9 in adult E66.01; Z68.41; Z68.41 Obesity classification: adult class 3 (BMI >= 40) Serious obesity comorbidity presence: with serious comorbidity Body mass index: BMI 40.0-44.9 Obesity type: due to excess calories Benign essential hypertension I10
[2025-01-16 15:34] VITALS: BP 148/88; PULSE 105; O2SAT 97; BMI 43.3
[2025-01-16 15:45] LABS: Glucose, Whole Blood 162 mg/dL (60-115)
[2025-01-16 15:59] VITALS: PULSE 96
--- OUTSIDE RECORDS SUMMARY | 2025-01-16 16:35 | XMS_ITS | Clinical Summary ---
Author Organization [facility] Address [address] [place] [id number] Care Team Providers Care Drill Foreman Name Role Phone Julio Carter MD Primary Care Provider [phone] Allergies No known active allergies Medications insulin glargine, BASAGLAR KWIKPEN, 100 UNIT/ML pen injectionIndicati ons:Type 2 diabetes mellitus without complication, with long-term current use of insulin ([facility]) Inject 30 Units under the skin [...] with long-term current use of insulin ([facility]) Inject 0.75 mg under the skin once a week. Every sunday 2 mL 1 Active amLODIPine (NORVASC) 5 MG tabletIndications :Type 2 diabetes mellitus without complication, with long-term current use of insulin ([facility]),Essential hypertension Take 1 tablet (5 mg total) by mouth daily. 30 tablet 1 Active lisinopril (PRINIVIL,ZeSTRIL ) 30 MG tabletIndications :Type 2 diabetes mellitus without complication, with long-term current use of insulin ([facility]),Essential hypertension Take 1 tablet (30 mg total) by mouth daily. 30 tablet 1 Active metoPROLOL TARTRATE (LOPRESSOR) 50 MG tabletIndications :Paroxysmal atrial fibrillation (HCC),Type 2 diabetes mellitus without complication, with long-term current use of insulin ([facility]),Essential hypertension Take 1 tablet (50 mg total) by mouth every 12 (twelve) hours around the clock. 60 tablet 1 Active busPIRone (BUSPAR) 30 MG tabletIndications :Suicidal behavior without attempted self-injury,Type 2 diabetes mellitus without complication, with long-term current use of insulin ([facility]) Take 1 tablet (30 mg total) by mouth 3 (three) times a day. 90 tablet 1 Active traMADol (ULTRAM) 50 MG tabletIndications :Type 2 diabetes mellitus without complication, with long-term current use of insulin ([facility]) Take 1 tablet (50 mg total) by mouth 3 (three) times a day as needed for moderate pain or severe pain. For pain 15 tablet 1 Active albuterol (PROVENTIL HFA; VENTOLIN HFA) 108 (90 Base) MCG/ACT inhalerIndication s:Type 2 diabetes mellitus without complication, with long-term current use of insulin ([facility]) Inhale 2 puffs 4 times daily (every 6 hours) as needed for wheezing or shortness of breath. 1 Inhaler 1 Active hydrOXYzine HCl (ATARAX) 25 MG tabletIndications :Type 2 diabetes mellitus without complication, with long-term current use of insulin ([facility]) Take 1 tablet (25 mg total) by mouth 3 (three) times a day as needed for itching or anxiety. 30 tablet 1 Active escitalopram (LEXAPRO) 20 MG tabletIndications :Type 2 diabetes mellitus without complication, with long-term current use of insulin ([facility]) Take 1 tablet (20 mg total) by mouth daily. 30 tablet 1 Active apixaban (ELIQUIS) 5 MG tabletIndications :Paroxysmal atrial fibrillation (HCC),Type 2 diabetes mellitus without complication, with long-term current use of insulin ([facility]) Take 1 tablet (5 mg total) by mouth every 12 (twelve) hours around the clock. 60 tablet 1 Active ALPRAZolam (XANAX) 2 MG tabletIndications :Suicidal behavior without attempted self-injury,Type 2 diabetes mellitus without complication, with long-term current use of insulin ([facility]) Take 1 tablet (2 mg total) by mouth nightly as needed for anxiety. 5 tablet 1 Active lidocaine (LIDODERM) 5 % patchIndications: Type 2 diabetes mellitus without complication, with long-term current use of insulin ([facility]) Place 1 patch on the skin daily. Apply patch and leave on for 12 hours then remove. Patch may remain on skin for 12 hours per day. 30 patch 1 Active diclofenac (VOLTAREN) 1 % gelIndications:Ty pe 2 diabetes mellitus without complication, with long-term current use of insulin ([facility]) Apply 2 g topically 2 (two) times a day as needed for pain or muscle/joint pain. 100 g 1 Active FREESTYLE LITE stripIndications: Type 2 diabetes mellitus without complication, with long-term current use of insulin ([facility]) 100 test strips by Other (specify) route 3 (three) times a day before meals. Use as instructed 100 test strip 1 Active tamsulosin (FLOMAX) 0.4 MG capsuleIndication s:Type 2 diabetes mellitus without complication, with long-term current use of insulin ([facility]) Take 1 capsule (0.4 mg total) by mouth daily. 30 capsule 1 Active B-D ULTRAFINE III SHORT PEN 31G X 8 MM MiscIndications:T ype 2 diabetes mellitus without complication, with long-term current use of insulin ([facility]) Check blood glucose at least 3 times daily and once in the morning fasting. For diabetes mellitus ICD E 11.9 50 pen needle 1 Active Insulin Pen Needle 31G X 8 MM MiscIndications:T ype 2 diabetes mellitus without complication, with long-term current use of insulin ([facility]) Check blood glucose at least 3 times daily and once in the morning fasting. For diabetes mellitus ICD E 11.9 50 pen needle 1 Active Blood Glucose Monitoring Suppl (FreeStyle Lite) DeviceIndications :Type 2 diabetes mellitus without complication, with long-term current use of insulin ([facility]) Check blood glucose at least 3 times daily and once in the morning fasting. For diabetes mellitus ICD E 11.9 1 Device 1 Active FREESTYLE LITE stripIndications: Type 2 diabetes mellitus without complication, with long-term current use of insulin ([facility]) Check blood glucose at least 3 times daily and once in the morning fasting. For diabetes mellitus ICD E 11.9 100 test strip 1 Active FreeStyle Lancets lancetIndications :Type 2 diabetes mellitus without complication, with long-term current use of insulin ([facility]) Check blood glucose at least 3 [...] 04/07/2021 04/07/2020, 04/06/2020, 04/05/2020, Additional history exists RSV Vaccine 50 years and old er and Patients (1 - Risk 50-74 years 1-dose series) 2022 Zoster (Shingles) Vaccine (1 of 2) 2022 Influenza Vaccine 10/10/2024 COVID-19 Vaccine (1 - 2023-2 5 season) 2024 Procedures Procedure [...] EST Jc Ayers MD LAB BLOOD ORDERABLES Final Resu lt HOSPITAL LAB from Last 3 Months or Most Recently Relevant to Health Maintenance Insurance MEDICAID OUT OF STATE [facility] Advance Directives * Full Code (Latest Code Status on File) Date Activated Date Inactivated Comments 04/02/2020 7:54 PM Healthcare Agents on File Name Relationship Healthcare Agent Relationshi p Communication Fang Shaan Parent 4. Next of Kin ( Spouse, Adult Child, Parent, Adult Sibling, Grandparent) Care Teams Drill Foreman Relationship Specialty Start Date End Date Julio Carter MD [address] [place] [address] [address] [place] [id number] PCP - General Internal Medicine 04/02/20
--- OUTSIDE RECORDS SUMMARY | 2025-01-16 16:35 | XMS_ITS | Clinical Summary ---
Author Organization [facility] Address [address] [place] [address] Care Team Providers Care Splitting Machine Feeder Name Role Phone Unavailable Primary Care Provider [...] to complete [place] [id number] [facility] MEDICAID STAND ADULT * Guarantor: Herman Mcintosh Account Type Relation to Patient Date of Phone Billing Address Personal/Family [place] [id number] * Guarantor: Herman Mcintosh Account Type Relation to Patient Date of Phone Billing Address [place] [address] * Guarantor: Herman Mcintosh Account Type Relation to Patient Date of Phone Billing Address [place] [address] * Guarantor: Herman Mcintosh Account Type Relation to Patient Date of Phone Billing Address [place] [address]
--- OUTSIDE RECORDS SUMMARY | 2025-01-16 16:35 | XMS_ITS | Encounter Summary ---
Author Organization [employer] Address [address] [place] [address] Care Team Providers Care Control Panel Operator Name Role Phone Unavailable Primary Care Provider Unavailabl e Reason for Visit * Reason Onset Date Comments medication 07/12/2022 Appointment 07/12/2022 Encounter Details Date Type Department Care Team (Late st Contact Info) Description 07/12/2022 Telephone [facility] [address] [place] [address] Storm Maciel DDS [address] [place] [address] medication; Appointment Social History Tobacco Use Types [...]
== END 2025-01-16 16:12 | disposition home or self-care (01) ==
LOC: HO.ENCR 15:30
PROVIDERS: Visit Provider Physician Assistant Medical
DX: E11.65 Type 2 diabetes mellitus with hyperglycemia (principal); E66.01 Morbid (severe) obesity due to excess calories; Z68.41 Body mass index [BMI] 40.0-44.9, adult; I10 Essential (primary) hypertension

== ENCOUNTER → 2025-01-16 15:29 | Outpatient (BNVA) | payer OTHER, SELFPAY | PROVIDERS: Visit Provider Physician Assistant Medical | DX: E11.65 Type 2 diabetes mellitus with hyperglycemia (principal); E66.01 Morbid (severe) obesity due to excess calories; Z68.41 Body mass index [BMI] 40.0-44.9, adult; I10 Essential (primary) hypertension | CPT/HCPCS: 82947; 99212 ==

== ENCOUNTER 2025-02-13 11:02 | Outpatient (AMB) | payer OTHER, SELFPAY ==
--- NOTE | 2025-02-13 11:11 | MHC.OFFVIS ---
Vital Signs 02/13/25 11:18 Height 5 ft 11 in Weight 313 lb 11.485 oz BMI 43.7 BP 136/68 Blood Pressure Location Rt brachial Position Sitting Pulse 88 Pulse Source Pulse Oximeter Pulse Oximetry (%) 98 Oxygen Delivery Method Room Air Intake Visit Reasons: Type II Diabetes Intake Note: Patient present today to follow up on Type 2 Diabetes Mellitus. Last Diabetic Eye exam: Due, has an appointment for next year 2025. Last Podiatry Visit: Does not see a Home Appliance Tech Random Glucose: 158 mg/dl HgA1C: 8.5% 12/26/2024 Bricklayer Helper Required: No Accompanied by: Self / Same As Patient Allergies Penicillins (PENICILLINS) Allergy (Unknown, Verified 02/13/25 11:18) RASH dulaglutide (From Trulicity) Adverse Reaction (Intermediate, Verified 02/13/25 11:18) abdominal pain, diarrhea HPI Comments Details: This is a 54-year-old male with a past medical history of polysubstance abuse, uncontrolled type 2 diabetes, depression, atrial flutter with RVR, PTSD presenting for diabetic management. Hemoglobin A1c 8.5% 12/26/2024 down from 9.5% 09/09/2024 down from 13.9% 03/13/2024. CGM: 17% very high 43% high 40% right in range 0% hypoglycemia 23.3% coefficient of variation. Postprandial and nocturnal hyperglycemia noted. Current medications: Mounjaro 2.5 mg weekly, Tresiba 90 units nightly, metformin ER 2000 mg daily, and Humalog 10 units TID before meals. Past medications: Lantus discontinued SGLT2 not prescribed-history of balanitis Trulicity caused diarrhea and abdominal pain Ozempic switched to Mounjaro due to insurance Januvia discontinued Sees Mariaelena VENTURA. Denies hypoglycemic events. Complications: Neuropathy Patient makes note today of chronic discoloration of the lower legs and lower extremity edema. He says that it was worse during the past week with increased redness and swelling, but it is getting better today. He attributes this to walking everywhere because his car transmission broke. ROS: Constitutional: No fevers or chills. Eyes: No vision changes, blurry vision, double vision Respiratory: No shortness of breath, cough or sputum production. Cardiovascular: No chest pain, chest pressure, palpitations. Endocrine: Denies polyuria and polydipsia Psychiatric: Endorses depression and anxiety. Denies SI/HI. Physical exam: Constitutional: Alert, in no distress. Neck: Supple, Full range of motion. No lymphadenopathy. No palpable thyroid masses. Respiratory: Clear to auscultation. Cardiovascular: S1 S2 regular. No murmurs. Psychiatric: Normal mood and affect Extremities: Bilateral lower legs are swollen, chronic stasis discoloration with superimposed erythema which appears pinker proximally. Mildly warm to touch bilaterally. No papules, vesicles, weeping. Calves nontender. [facility] Medical History (Updated 02/13/25 @ 12:46 by GHULAM Jean) Bilateral lower extremity edema Obesity Noncompliance Callus of foot Diabetic polyneuropathy Food insecurity Uncontrolled type 2 diabetes mellitus with hyperglycemia Tachycardia Type 2 diabetes mellitus with hyperglycemia Paroxysmal atrial fibrillation Morbid obesity Substance abuse Essential hypertension Cocaine abuse Erectile dysfunction Polysubstance abuse Paroxysmal atrial fibrillation with rapid ventricular response Lumbar degenerative disc disease Substance abuse Diabetes Depression Overactive bladder Arthritis BPH (benign prostatic hyperplasia) Asthma Seizure Morbid obesity with BMI of 40.0-44.9, adult Benign essential hypertension Insomnia Primary osteoarthritis of both knees Anxiety Family history of thyroid disorder Surgical History No history of previous surgery Family History Father ETOH abuse Mother Diabetes Arthritis of knee Hypertension Other Mental health problem Substance abuse Social History Household Members: Friend(s) Household Members Other:: rents a room in a house Housing: House Housing Other:: rents a room Alcohol intake: current Alcohol intake frequency: does not drink Comment: patient refused Patient Tobacco Use Status: Never used Tobacco e-Cigarette/Vaping Use: Never Used Second Hand Smoke Exposure: No Substance Use Type: Marijuana Advance Directives Date on File: 02/23/22 service: No Current occupational status: unemployed and disabled Sexual orientation: Straight/Heterosexual Cognitive needs: No Hearing needs: No Vision needs: No Physical Exam Vital Signs: Last Vital Signs Pulse 88 02/13/25 11:18 BP 136/68 02/13/25 11:18 Pulse Ox 98 02/13/25 11:18 Oxygen Delivery Method Room Air 02/13/25 11:18 BMI result Body Mass Index 43.7 Office Procedures Glucose Monitoring Details Details: See HPI 88076 - Glucose monitoring, continuous-physician I&R Procedure code (CPT) selection complete Results Reviewed Results Reviewed: Laboratory Last Values Glucose (Clinic) 158 mg/dL (60-115) H 02/13/25 11:24 Assessment & Plan Assessment & Plan (1) Uncontrolled type 2 diabetes mellitus with hyperglycemia: Code(s): E11.65 - Type 2 diabetes mellitus with hyperglycemia Category: Medical (2) Obesity: Code(s): E66.9 - Obesity, unspecified Category: Medical Qualifiers: Obesity type: due to excess calories Obesity classification: adult class 3 (BMI >= 40) Serious obesity comorbidity presence: with serious comorbidity Body mass index: BMI 40.0-44.9 Qualified Code(s): E66.01 - Morbid (severe) obesity due to excess calories; Z68.41 - Body mass index [BMI] 40.0-44.9, adult; Z68.41 - Body mass index [BMI] 40.0-44.9, adult (3) Benign essential hypertension: Code(s): I10 - Essential (primary) hypertension Category: Medical (4) Bilateral lower extremity edema: Code(s): R60.0 - Localized edema Category: Medical Plan In summary this is a 54-year-old male with uncontrolled type 2 diabetes. He is doing better recently. Recommended increasing Mounjaro to 5 mg, but he would like to reevaluate this in a month. Continue 2.5 mg weekly at this time. Tresiba 90 units nightly Metformin ER 2000 mg daily Humalog 10 units three times daily 10-15 minutes before meals. If you experience low blood sugar, treat this by eating a chewable fruit candy like skittles or jelly beans (about 8 pieces), 4 ounces (1/2 cup) of fruit juice (not diet), 1 tablespoon of honey or 4 glucose tablets. If your blood sugar is under 50, take double the amount of one of the above. Recheck your blood sugar in 15 minutes. Reminded him to bring his CGM or glucometer to all appointments. Eye exam is scheduled in 2025. His blood pressure is elevated. Recheck at next appointment. Advised patient to go to the ED to evaluate increased lower extremity edema and erythema. Differential reviewed with the patient including cellulitis, DVT, CHF. He says he will call his primary care office. Follow up in 4 weeks for type 2 diabetes. Reminded to have lab work completed. Orders: Orders AMB Glucose Monitoring Today E11.9 - Type 2 diabetes mellitus without complications Medications: Refilled tirzepatide (Mounjaro) 2.5 mg (0.5 mL) subcut QWEEK 2 mL 1RF Coding Level of Care Code Est Pt Level 4 (42919) Diagnoses Uncontrolled type 2 diabetes mellitus with hyperglycemia E11.65 Class 3 severe obesity due to excess calories with serious comorbidity and body mass index (BMI) of 40.0 to 44.9 in adult E66.01; Z68.41; Z68.41 Obesity type: due to excess calories Obesity classification: adult class 3 (BMI >= 40) Serious obesity comorbidity presence: with serious comorbidity Body mass index: BMI 40.0-44.9 Benign essential hypertension I10 Bilateral lower extremity edema R60.0 CPT Codes Details - CPT: 66538 - Glucose monitoring, continuous-physician I&R ([id number])
[2025-02-13 11:18] VITALS: BP 136/68; PULSE 88; O2SAT 98; BMI 43.7
[2025-02-13 11:38] LABS: Glucose, Whole Blood 158 mg/dL (60-115)
== END 2025-02-13 11:57 | disposition home or self-care (01) ==
LOC: HO.ENCR 11:03
PROVIDERS: Visit Provider Physician Assistant Medical
DX: E11.65 Type 2 diabetes mellitus with hyperglycemia (principal); E66.01 Morbid (severe) obesity due to excess calories; Z68.41 Body mass index [BMI] 40.0-44.9, adult; I10 Essential (primary) hypertension; R60.0 Localized edema

== ENCOUNTER 2025-02-13 11:02 | Outpatient (REF) | payer OTHER, SELFPAY ==
[2025-02-13 14:03] LABS: Hematocrit 43.2 % (42.0-52.0); Hemoglobin 14.1 g/dl (14.0-18.0); Imm Gran Abs Auto 0.04 X10*3/uL (0.00-0.03); Imm Gran Pct Auto 0.5 % (0.0-0.4); Lymphocytes Absolute Auto 1.5 X10*3/uL (1.2-4.9); MANUAL DIFF FLAG NO; Mean Corpuscular HGB Conc 32.6 g/dl (31.0-36.0); Mean Corpuscular Hemoglobin 29.9 pg (27.0-33.0); Mean Corpuscular Volume 91.7 fL (80.0-98.0); NRBC Abs Auto 0.000 X10*3/uL (0.0-0.012); NRBC Pct Auto 0.0 /100WBC (0.0-0.2); Platelet Count 278 X10*3/uL (160-400); Red Blood Count 4.71 X10*6/uL (4.60-5.80); White Blood Count 8.5 X10*3/uL (4.8-10.8)
[2025-02-13 14:19] LABS: Appearance Urine Clear; Glucose Urine UA Negative (Negative); PH 7.0 (5.0-9.0); Specific Gravity - Urine 1.020 (1.005-1.025); UMIC TRIGGER UACC YES
[2025-02-13 17:23] LABS: Microalbum/Creatinine Ratio Ur 84.2 ug/mg cr (<30)
[2025-02-13 22:22] LABS: Alanine Aminotransferase 42 U/L (0-40); Albumin Level 4.2 g/dL (3.5-5.0); Alkaline Phosphatase 101 U/L (39-117); Anion Gap 10 (12-20); Aspartate Amino Transferase 31 U/L (5-37); Blood Urea Nitrogen 14 mg/dL (9-16); Calcium 9.1 mg/dL (8.4-10.2); Carbon Dioxide 28 mmol/L (22-29); Chloride 106 mmol/L (96-108); Cholesterol 121 mg/dL (<200); Estimated Glomerular Filt Rate > 60; HDL Cholesterol 41 mg/dL (>40); Potassium 4.4 mmol/L (3.3-5.1); Sodium 140 mmol/L (135-145); Total Protein 7.4 g/dL (6.5-8.0); Triglycerides 147 mg/dL (<150)
[2025-02-14 00:33] LABS: Folate 12.3 ng/mL (> or = 4.0); Vitamin B12 563 pg/mL (200-900)
== END 2025-02-13 11:03 | disposition home or self-care (01) ==
LOC: HO.LAB 11:02
PROVIDERS: Absent Provider Internal Medicine; PCP Internal Medicine; Visit Provider Physician Assistant Medical
DX: E11.65 Type 2 diabetes mellitus with hyperglycemia (principal); E66.01 Morbid (severe) obesity due to excess calories; I10 Essential (primary) hypertension; R60.0 Localized edema; L53.9 Erythematous condition, unspecified; D64.9 Anemia, unspecified; E55.9 Vitamin D deficiency, unspecified; E78.00 Pure hypercholesterolemia, unspecified; E53.8 Deficiency of other specified B group vitamins; Z79.84 Long term (current) use of oral hypoglycemic drugs; Z68.41 Body mass index [BMI] 40.0-44.9, adult; Z79.4 Long term (current) use of insulin
CPT/HCPCS: 36415; 80053; 80061; 81001; 81003; 82043; 82306; 82570; 82607; 82746; 82947; 83036; 85025; 99212

== ENCOUNTER 2025-02-25 12:36 | Outpatient (AMB) | payer OTHER, SELFPAY ==
--- NOTE | 2025-02-25 12:44 | A.OFFPC_ITS ---
Vital Signs 02/25/25 12:46 Height 5 ft 11 in Weight 316 lb 8 oz BMI 44.1 BP 148/62 H Blood Pressure Location Lt brachial Position Sitting Respiration 16 Pulse 95 Pulse Source Pulse Oximeter Temp 96.9 F Temp Source Temporal Artery Scan Pulse Oximetry (%) 95 Oxygen Delivery Method Room Air Intake Visit Reasons: DM, atrial flutter, neuropathy, hidradenitis Design Technology Teacher Required: No Accompanied by: Self / Same As Patient Allergies Penicillins (PENICILLINS) Allergy (Unknown, Verified 02/25/25 13:06) RASH dulaglutide (From Trulicity) Adverse Reaction (Intermediate, Verified 02/25/25 13:06) abdominal pain, diarrhea Medication List - Last Reconciled 02/25/25 by Julio Carter MD amiodarone 400 mg (2 x 200 mg) PO BID apixaban (Eliquis) 5 mg PO BID 30 days blood sugar diagnostic (FreeStyle Lite Strips) USE 4X DAILY DIRECTED TO MONITOR BLOOD SUGARS blood-glucose meter (FreeStyle Lite Meter kit) Use as directed to check glucose twice daily. blood-glucose sensor (Dexcom G7 Sensor device) As directed change every 10 days blood-glucose,client delivery manager,cont (Dexcom G7 Payroll Coordinator) As directed blood-glucose,client delivery manager,cont (Dexcom G7 Payroll Coordinator) DIRECTED buspirone 30 mg PO BID clotrimazole-betamethasone 1-0.05 % 1 appl topical BID PRN diltiazem HCl CD (Cardizem CD) 240 mg PO DAILY escitalopram oxalate 20 mg PO DAILY fluticasone furoate 27.5 mcg/actuation 2 sprays intranasal DAILY PRN insulin degludec (Tresiba FlexTouch U-200 insulin) 90 units (0.45 mL) subcut BEDTIME insulin lispro (Humalog KwikPen (U-100) Insulin) 10 units subcut TID lancets (FreeStyle Lancets) Use to monitor blood glucose 4 times daily. lidocaine 5% 2 patches topical DAILY PRN 30 days losartan 25 mg PO DAILY 90 days metformin ER 2,000 mg (4 x 500 mg) PO DAILY methadone (Methadose) 20 mg (2 mL) PO DAILY@0800 metoprolol tartrate 25 mg PO BID pen needle, diabetic USE DIRECTED ONCE DAILY [ROLLATOR As directed] sildenafil 50 mg PO DAILY PRN sodium chloride 0.65% (Saline Nasal) 2 sprays intranasal QID PRN tirzepatide (Mounjaro) 2.5 mg (0.5 mL) subcut QWEEK tramadol 50 mg PO TID PRN 30 days Ventolin HFA 90 mcg/actuation (albuterol sulfate) 2 puffs inhalation Q4-6H PRN NS zolpidem 10 mg PO BEDTIME PRN Tobacco use date assessed: 10/29/24 Dental Screening Dental Screen Date: 10/29/24 Did you have a dental visit in the last 12 months?: No Did you have a dental problem in the last 6 months where you did not have access to dental care?: No Was dental information given to patient?: No HPI DM, atrial flutter, neuropathy, hidradenitis HPI Details Patient comes in today for his follow-up visit States that he feels okay He denies any headaches or dizziness Denies any chest pains, no increased shortness of breath No nausea/vomiting, no abdominal pain No change in bowel habits noted Needs a few of his Rx refilled, including his Eliquis, which he states he ran out of about 2 to 3 weeks ago Adds that he has had a significant increased in the swelling and pain in both of his lower extremities (worse on the right side) lately He continues to experience increased pain over his lower back and in both knees and feels that his neuropathy in the lower extremities have also gotten worse lately He had his follow up labs done a couple of weeks ago - to discuss his results [facility] Medical History Bilateral lower extremity edema Obesity Noncompliance Callus of foot Diabetic polyneuropathy Food insecurity Uncontrolled type 2 diabetes mellitus with hyperglycemia Tachycardia Type 2 diabetes mellitus with hyperglycemia Paroxysmal atrial fibrillation Morbid obesity Substance abuse Essential hypertension Cocaine abuse Erectile dysfunction Polysubstance abuse Paroxysmal atrial fibrillation with rapid ventricular response Lumbar degenerative disc disease Substance abuse Diabetes Depression Overactive bladder Arthritis BPH (benign prostatic hyperplasia) Asthma Seizure Morbid obesity with BMI of 40.0-44.9, adult Benign essential hypertension Insomnia Primary osteoarthritis of both knees Anxiety Family history of thyroid disorder Surgical History No history of previous surgery Family History Father ETOH abuse Mother Diabetes Arthritis of knee Hypertension Other Mental health problem Substance abuse Social History Household Members: Friend(s) Household Members Other:: rents a room in a house Housing: House Housing Other:: rents a room Alcohol intake: current Alcohol intake frequency: does not drink Comment: patient refused Patient Tobacco Use Status: Never used Tobacco e-Cigarette/Vaping Use: Never Used Second Hand Smoke Exposure: No Substance Use Type: Marijuana Advance Directives Date on File: 02/23/22 service: No Current occupational status: unemployed and disabled Sexual orientation: Straight/Heterosexual Cognitive needs: No Hearing needs: No Vision needs: No Questionnaire PHQ-9 Over the last 2 weeks, how often have you been bothered by any of the following problems? 1. Little interest or pleasure in doing things: more than half the days 2. Feeling down, depressed, or hopeless: several days 3. Trouble falling or staying asleep, or sleeping too much: several days 4. Feeling tired or having little energy: several days 5. Poor appetite or overeating: several days 6. Feeling bad about yourself - or that you are a failure or have let yourself or your family down: several days 7. Trouble concentrating on things, such as reading the newspaper or watching television: not at all 8. Moving or speaking so slowly that other people could have noticed. Or the opposite - being so fidgety or restless that you have been moving around a lot more than usual: not at all 9. Thoughts that you would be better off or of hurting yourself in some way: not at all Total score: 7 Depression Screening Interpretation: Positive Depression Screening Follow-up: Existing condition and In treatment Depression Screening Done: Yes 88281 - PHQ-9 Billing: Yes Source: Developed by Drs. Michael Mcmanus, Penelope Pope, Cornell Snyder and colleagues, with an educational natty from [employer] Thrive Questionnaire Date Thrive assessed: 02/25/25 I am a: Patient What is your living situation today?: I have a steady place to live Within the past 12 months, did the food you bought not last and you didn't have the money to get more?: Never true Within the past 12 months, did you worry whether your food would run out before you got money to buy more?: Never true Do you have trouble paying for medicines?: No Do you have trouble getting transportation to medical appointments?: No Do you have trouble paying your heating and electricity bill?: No Do you have trouble taking care of your child, family member or friend?: No Do you have trouble with day-to-day activities such as bathing, preparing meals, shopping, managing finances, etc.?: No Are you currently unemployed and looking for a job?: No Are you interested in more education?: No Please select the resources that you would like help with: None Currently or been in a relationship where the following occur: No concerns reported THRIVE Score: 0 AUDIT C Alcohol Use Questionnaire (AUDIT-C) 1. How often do you have a drink containing alcohol?: Monthly or less 2. How many drinks containing alcohol do you have on a typical day when you are drinking?: 1 or 2 3. How often do you have six or more drinks on one occasion?: Never Total Score: 1 Score Reviewed/Action Taken: Yes TODD-7 AMB Questionnaire TODD-7 Date TODD - 7 assessed: 02/25/25 Feeling nervous, anxious, or on edge: 0 = Not at all Not being able to stop or control worryin = Not at all Worrying too much about different things: 0 = Not at all Trouble relaxin = Not at all Being so restless that it is hard to sit still: 0 = Not at all Becoming easily annoyed or irritable: 0 = Not at all Feeling afraid as if something awful might happen: 0 = Not at all Total TODD-7 score (0-4 normal; 5-9 mild; 10-14 moderate; 15-21 severe): 0 Source: Developed by Drs. Michael Mcmanus, Penelope Pope, Cornell Snyder and colleagues, with an educational natty from [employer] Review of Systems Const Denies chills, Reports fatigue, Denies fever(s) and Denies headache(s) ENT Denies dysphagia, Denies dizziness, Denies otalgia, Denies headache(s), Reports neck pain, Denies odynophagia and Denies sore throat Card Denies chest pain, Reports pedal edema (bilateral, increased currently), Reports leg edema (bilateral, increased at present, R>L), Denies palpitations and Reports dyspnea on exertion Resp Denies chest congestion, Denies cough and Reports dyspnea on exertion GI Denies abdominal pain, Denies constipation, Denies dysphagia, Denies heartburn, Denies diarrhea, Denies nausea, Denies odynophagia and Denies vomiting Denies difficulty urinating, Reports erectile dysfunction, Denies dysuria, Denies nocturia and Denies urinary frequency Musc Reports back pain (over the lower back - chronic), Reports arthralgias (increased in both knees), Reports neck pain and Reports numbness Skin/Breast Denies rash Neuro Reports burning sensations (in both lower extremities - legs and feet), Denies dizziness, Denies headache(s) and Reports numbness Endo Reports fatigue and Denies palpitations Jose/Lymph Details: increasing swelling of both lower legs and feet lately Physical exam (Primary Care) Vital Signs: Last Vital Signs Temp 96.9 F 02/25/25 12:46 Pulse 95 02/25/25 12:46 Resp 16 02/25/25 12:46 BP 148/62 H 02/25/25 12:46 Pulse Ox 95 02/25/25 12:46 Oxygen Delivery Method Room Air 02/25/25 12:46 BMI result Body Mass Index 44.1 Tobacco/Smoking Status: Tobacco use Status Tobacco use date assessed 10/29/24 02/25/25 12:45 Patient Tobacco Use Status Never used Tobacco 02/25/25 12:45 e-Cigarette/Vaping Use Never Used 02/25/25 12:45 PHQ-9: PHQ-9 Score PHQ-9: Total score 6 02/25/25 12:47 Depression Screening Interpretation: Positive Depression Screening Follow-up: Existing condition and In treatment Thrive Assessment: Date of Thrive Assessment Date Thrive assessed 02/25/25 02/25/25 12:47 Currently or been in a relationship where the following occur: No concerns reported Const General: no acute distress and alert HENMT Ears: TM's normal bilaterally and EAC's normal Throat: Yes posterior oropharynx normal and Yes tonsils normal (no TP congestion) Neck Neck: Yes supple and No lymphadenopathy Thyroid: Thyroid normal Resp Auscultation: clear to auscultation bilaterally, no rales and no wheezes Cardio Rate: regular rate Rhythm: regular rhythm Heart sounds: no murmurs GI Palpation (GI): Soft to palpation and nontender Auscultation: normal bowel sounds General: Yes no CVA tenderness Back/Spine/Pelvis Back: no CVA tenderness Thoracic/Lumbar Spine: lumbar spinal tenderness Skin Other: (+) increased erythema over both lower legs Extrem General: No clubbing and Yes edema (3+ edema of the right leg; 2+ edema of the left leg) Results Reviewed Results Reviewed: Laboratory Tests 02/13/25 02/13/25 02/13/25 12:46 12:49 Unknown WBC 8.5 Hgb 14.1 Hct 43.2 Plt Count 278 Sodium 140 Potassium 4.4 Creatinine 0.74 Estimated GFR > 60 Fasting Glucose 141 H Hemoglobin A1c % 8.2 H Calcium 9.1 AST 31 ALT 42 H Triglycerides 147 Cholesterol 121 LDL Cholesterol, Calc 51 HDL Cholesterol 41 Vitamin B12 563 25-OH Vitamin D Total 21.3 L Ur Specific Sasser 1.020 Urine Protein 30 (1+) H Urine Glucose (UA) Negative Urine Blood Negative Urine Nitrite Negative Ur Leukocyte Esterase Negative Microalb/Creat Ratio 84.2 H Coding Level of Care Code Est Pt Level 4 (15881) Add On Problem Visit Only Diagnoses Bilateral lower extremity edema R60.0 Lymphedema I89.0 Type 2 diabetes mellitus with hyperglycemia, without long-term current use of insulin E11.65 Diabetes mellitus terminal superintendent insulin use: without terminal superintendent use Benign essential hypertension I10 Paroxysmal atrial fibrillation with rapid ventricular response I48.0 Seizure R56.9 Mild intermittent asthma without complication J45.20 Asthma severity: mild Asthma persistence: intermittent Asthma complication type: uncomplicated Degeneration of intervertebral disc of lumbar region with discogenic back pain M51.360 Disc-related pain type: discogenic back pain only Primary osteoarthritis of both knees M17.0 Benign prostatic hyperplasia with urinary frequency N40.1; R35.0 Lower urinary tract symptom presence: symptoms present Lower urinary tract symptom detail: urinary frequency Polysubstance abuse F19.10 Erectile dysfunction, unspecified erectile dysfunction type N52.9 Erectile dysfunction type: unspecified Insomnia, unspecified type G47.00 Insomnia type: unspecified Anxiety F41.9 Episode of recurrent major depressive disorder, unspecified depression episode severity F33.9 Depression Type: major depressive disorder Major depression recurrence: recurrent Active/Remission status: currently active Major depression episode severity: unspecified Morbid obesity with BMI of 40.0-44.9, adult E66.01; Z68.41 Additional Codes PHQ-9 - 78201 - PHQ-9 Billing: Yes ([id number]) Assessment & Plan Assessment & Plan (1) Bilateral lower extremity edema: Code(s): R60.0 - Localized edema Category: Medical Plan: Will send patient for stat venous doppler of both lower extremities BENITO to r/o DVT He apparently ran out of his Eliquis a couple of weeks ago and for unclear reasons, could not get them refilled States that he also had reservations about going back on Eliquis as he recalls having nosebleeding for 5 straight days when he started Eliquis a while back I sent in a new Rx for him for Eliquis 5 mg BID and he is instructed to start back on them BENITO (2) Lymphedema: Code(s): I89.0 - Lymphedema, not elsewhere classified Category: Medical Plan: He does have chronic 'baseline' swelling of both his lwer extremities and patient is again reminded to try to keep his legs elevated as often as he can to help minimize his edema He was hospitalized for a period of time back in June 2023 for cellulitis of the lower extremities Have advised him that losing weight should also help with his swelling although at this time, there appears to be no realistic expectation for this to happen Due to his recent increased swelling, will start him on Furosemide 40 mg Q AM PRN x 10 days for now (3) Type 2 diabetes mellitus with hyperglycemia: Comment: Admitted for [facility] in July 2019 Code(s): E11.65 - Type 2 diabetes mellitus with hyperglycemia Category: Medical Qualifiers: Diabetes mellitus nursing home insulin use: without nursing home use Qualified Code(s): E11.65 - Type 2 diabetes mellitus with hyperglycemia Plan: His HgbA1c was at 8.2% on his labs done a couple of weeks ago (his in-office HgbA1c was at 8.5% a couple of months ago in December 2024) - goal is at least <7.0% Reinforced diabetic diet Continue Tresiba 90 units QD, Humalog 10 units TID with meals, Metformin ER 2000 mg QD and Mounjaro 2.5 mg SQ once a week Follow up with endocrinology, diabetes educators and dye room helper as scheduled (4) Benign essential hypertension: Code(s): I10 - Essential (primary) hypertension Category: Medical Plan: Reinforced low sodium diet - goal is systolic BP of at least 120 to 130 mm or less He used to be on Lisinopril 30 mg QD and Amlodipine 5 mg QD but these were discontinued late last year (2023) when he was admitted to the hospital Continue Losartan 25 mg QD He is currently also on Metoprolol 25 mg BID and Diltiazem CD 240 mg QD for atrial fibrillation but these also help/impact his blood pressure (5) Paroxysmal atrial fibrillation with rapid ventricular response: Code(s): I48.0 - Paroxysmal atrial fibrillation Category: Medical Plan: Patient currently remains in sinus rhythm - states that he's had no recurrence of his symptoms since his hospitalization in October 2021, which was most likely triggered by his multiple drug use at the time Continue Metoprolol 25 mg BID and Diltiazem CD 240 mg QD Continue Eliquis 5 mg BID for thromboembolism prophylaxis - he was off this for 2 to 3 weeks when his Rx ran out; will be started back on this BENITO Follow up with cardiology as scheduled (6) Seizure: Code(s): R56.9 - Unspecified convulsions Category: Medical Plan: No seizure recurrence since his hospitalization back in July 2019 - this was most likely brought on by his hyperosmolar coma EEG done at [facility] in July 2019 showed borderline abnormal results and recommended a 24 hour ambulatory EEG for further evaluation It appears that he has not seen neurology at all for follow up in the past couple of years and is encouraged to reach out to neurology to schedule his follow up appointment BENITO (7) Asthma: Code(s): J45.909 - Unspecified asthma, uncomplicated Category: Medical Qualifiers: Asthma severity: mild Asthma persistence: intermittent Asthma complication type: uncomplicated Qualified Code(s): J45.20 - Mild intermittent asthma, uncomplicated Plan: Controlled - continue Albuterol HFA 2 inhalations every 6 hours as needed (8) Lumbar degenerative disc disease: Code(s): M51.36 - Other intervertebral disc degeneration, lumbar region Category: Medical Qualifiers: Disc-related pain type: discogenic back pain only Qualified Code(s): M51.360 - Other intervertebral disc degeneration, lumbar region with discogenic back pain only Plan: Reinforced activity and weight-lifting restrictions Continue Tramadol 50 mg TID and Lidocaine patches 5% apply 2 patches QD PRN for pain Have offered to refer him to pain management for his back pain and knee pain in the past but patient declined He has also been advised a few times in the past when he asked for Rx that we will not start him on anything other than what he is currently on for pain, especially any opioid Rx, due to his known history of polysubstance abuse (9) Primary osteoarthritis of both knees: Code(s): M17.0 - Bilateral primary osteoarthritis of knee Category: Medical Plan: Continue Tramadol 50 mg TID PRN, Voltaren gel 1% apply PRN and Lidocaine 5% patches 2 patches QD PRN He has received cortisone injections into his knees from [facility] in the past with only slight relief Has apparently not followed up with orthopedics or with rheumatology in a while now and he is encouraged to try to schedule his follow up appointments with them BENITO (10) BPH (benign prostatic hyperplasia): Code(s): N40.0 - Benign prostatic hyperplasia without lower urinary tract symptoms Category: Medical Qualifiers: Lower urinary tract symptom presence: symptoms present Lower urinary tract symptom detail: urinary frequency Qualified Code(s): N40.1 - Benign prostatic hyperplasia with lower urinary tract symptoms; R35.0 - Frequency of micturition Plan: Continue Tamsulosin 0.4 mg QD (11) Polysubstance abuse: Code(s): F19.10 - Other psychoactive substance abuse, uncomplicated Category: Medical Plan: He was admitted previously to using some heroin but his UDS tested positive for opiates, fentanyl, cocaine and marijuana multiple times last year, most recently in June 2023, when his UDS was again positive for opiates, fentanyl and marijuana He was referred to Addiction Medicine for further management at his last visit Continue Methadone 20 mg QD (12) Erectile dysfunction: Code(s): N52.9 - Male erectile dysfunction, unspecified Category: Medical Qualifiers: Erectile dysfunction type: unspecified Qualified Code(s): N52.9 - Male erectile dysfunction, unspecified Plan: Continue Sildenafil 50 mg QD PRN (13) Insomnia: Code(s): G47.00 - Insomnia, unspecified Category: Medical Qualifiers: Insomnia type: unspecified Qualified Code(s): G47.00 - Insomnia, unspecified Plan: Sleep hygiene reinforced Continue Zolpidem 10 mg QD PRN - Rx refilled (14) Anxiety: Code(s): F41.9 - Anxiety disorder, unspecified Category: Medical Plan: Continue Buspirone 30 mg BID and Escitalopram 20 mg QD Follow up with psychiatry as scheduled (15) Depression: Code(s): F32.9 - Major depressive disorder, single episode, unspecified Category: Medical Qualifiers: Depression Type: major depressive disorder Major depression recurrence: recurrent Active/Remission status: currently active Major depression episode severity: unspecified Qualified Code(s): F33.9 - Major depressive disorder, recurrent, unspecified Plan: Continue Escitalopram 20 mg QD Follow up with psychiatry as scheduled (16) Morbid obesity with BMI of 40.0-44.9, adult: Code(s): E66.01 - Morbid (severe) obesity due to excess calories; Z68.41 - Body mass index [BMI] 40.0-44.9, adult Category: Medical Plan: Reinforced diet; exercise and weight loss are unrealistic expectations with this patient given his overall situation and motivation Plan Follow up in 3 months Orders: Orders Comprehensive [place]. Panel Fast 3 Months E78.00 - Pure hypercholesterolemia, unspecified UA CC w/rflx Micro + Cult 3 Months R30.0 - Dysuria Vitamin B12 and Folate 3 Months E53.8 - Deficiency of other specified B group vitamins Vitamin D 25-OH Total 3 Months E55.9 - Vitamin D deficiency, unspecified Complete Blood Count Auto Diff 3 Months D64.9 - Anemia, unspecified Lipid Panel 3 Months E78.00 - Pure hypercholesterolemia, unspecified Microalbumin, Random (w Creat) 3 Months E11.9 - Type 2 diabetes mellitus without complications Hemoglobin A1c 3 Months E11.9 - Type 2 diabetes mellitus without complications NT Pro B Type Natriuretic Pept 3 Months R06.09 - Other forms of dyspnea, R60.0 - Localized edema TSH reflex Free T4 3 Months E78.00 - Pure hypercholesterolemia, unspecified US venous duplex LE BI Today I48.0 - Paroxysmal atrial fibrillation, R60.0 - Localized edema Medications: New furosemide (Lasix) 40 mg PO QAM PRN 10 tabs 0RF edema/swelling of the legs cholecalciferol (vitamin D3) 50 mcg PO DAILY 90 caps 3RF 90 days E55.9 - Vitamin D deficiency, unspecified Refilled apixaban (Eliquis) x30 dats 5 mg PO BID 60 tabs 5RF 30 days tramadol 50 mg PO TID PRN 90 tabs 0RF pain 30 days zolpidem 10 mg PO BEDTIME PRN 30 tabs 0RF insomnia
[2025-02-25 12:46] VITALS: BP 148/62; PULSE 95; RESP 16; TEMP 36.1; O2SAT 95; BMI 44.1
--- OUTSIDE RECORDS SUMMARY | 2025-02-25 16:46 | XMS_ITS | Encounter Summary ---
Author Organization [employer] Address [address] [place] [address] Care Team Providers Care Hospital Social Worker Name Role Phone Unavailable Primary Care Provider Unavailabl e Reason for Visit * Reason Onset Date Comments medication 07/12/2022 Appointment 07/12/2022 Encounter Details Date Type Department Care Team (Late st Contact Info) Description 07/12/2022 Telephone [facility] [address] [place] [address] Storm Maciel DDS [address] [place] [address] medication; Appointment Social History Tobacco Use Types [...]
--- OUTSIDE RECORDS SUMMARY | 2025-02-25 16:46 | XMS_ITS | Clinical Summary ---
Author Organization [facility] Address [address] [place] [address] Care Team Providers Care Rackman Name Role Phone Julio Carter MD Primary Care Provider [phone] Allergies No known active allergies Medications insulin glargine, BASAGLAR KWIKPEN, 100 UNIT/ML pen injectionIndicati ons:Type 2 diabetes mellitus without complication, with long-term current use of insulin ([facility]) Inject 30 Units under the [...] long-term current use of insulin ([facility]) Inject 0.75 mg under the skin once a week. Every sunday 2 mL 1 Active amLODIPine (NORVASC) 5 MG tabletIndications :Type 2 diabetes mellitus without complication, with long-term current use of insulin ([facility]),Essential hypertension Take 1 tablet (5 mg total) by mouth daily. 30 tablet 1 Active lisinopril (PRINIVIL,ZeSTRIL ) 30 MG tabletIndications :Type 2 diabetes mellitus without complication, with long-term current use of insulin ([facility]),Essential hypertension Take 1 tablet (30 mg total) by mouth daily. 30 tablet 1 Active metoPROLOL TARTRATE (LOPRESSOR) 50 MG tabletIndications :Paroxysmal atrial fibrillation (HCC),Type 2 diabetes mellitus without complication, with long-term current use of insulin ([facility]),Essential hypertension Take 1 tablet (50 mg total) by mouth every 12 (twelve) hours around the clock. 60 tablet 1 Active busPIRone (BUSPAR) 30 MG tabletIndications :Suicidal behavior without attempted self-injury,Type 2 diabetes mellitus without complication, with long-term current use of insulin ([facility]) Take 1 tablet (30 mg total) by mouth 3 (three) times a day. 90 tablet 1 Active traMADol (ULTRAM) 50 MG tabletIndications :Type 2 diabetes mellitus without complication, with long-term current use of insulin ([facility]) Take 1 tablet (50 mg total) by mouth 3 (three) times a day as needed for moderate pain or severe pain. For pain 15 tablet 1 Active albuterol (PROVENTIL HFA; VENTOLIN HFA) 108 (90 Base) MCG/ACT inhalerIndication s:Type 2 diabetes mellitus without complication, with long-term current use of insulin ([facility]) Inhale 2 puffs 4 times daily (every 6 hours) as needed for wheezing or shortness of breath. 1 Inhaler 1 Active hydrOXYzine HCl (ATARAX) 25 MG tabletIndications :Type 2 diabetes mellitus without complication, with long-term current use of insulin ([facility]) Take 1 tablet (25 mg total) by mouth 3 (three) times a day as needed for itching or anxiety. 30 tablet 1 Active escitalopram (LEXAPRO) 20 MG tabletIndications :Type 2 diabetes mellitus without complication, with long-term current use of insulin ([facility]) Take 1 tablet (20 mg total) by mouth daily. 30 tablet 1 Active apixaban (ELIQUIS) 5 MG tabletIndications :Paroxysmal atrial fibrillation (HCC),Type 2 diabetes mellitus without complication, with long-term current use of insulin ([facility]) Take 1 tablet (5 mg total) by mouth every 12 (twelve) hours around the clock. 60 tablet 1 Active ALPRAZolam (XANAX) 2 MG tabletIndications :Suicidal behavior without attempted self-injury,Type 2 diabetes mellitus without complication, with long-term current use of insulin ([facility]) Take 1 tablet (2 mg total) by mouth nightly as needed for anxiety. 5 tablet 1 Active lidocaine (LIDODERM) 5 % patchIndications: Type 2 diabetes mellitus without complication, with long-term current use of insulin ([facility]) Place 1 patch on the skin daily. Apply patch and leave on for 12 hours then remove. Patch may remain on skin for 12 hours per day. 30 patch 1 Active diclofenac (VOLTAREN) 1 % gelIndications:Ty pe 2 diabetes mellitus without complication, with long-term current use of insulin ([facility]) Apply 2 g topically 2 (two) times a day as needed for pain or muscle/joint pain. 100 g 1 Active FREESTYLE LITE stripIndications: Type 2 diabetes mellitus without complication, with long-term current use of insulin ([facility]) 100 test strips by Other (specify) route 3 (three) times a day before meals. Use as instructed 100 test strip 1 Active tamsulosin (FLOMAX) 0.4 MG capsuleIndication s:Type 2 diabetes mellitus without complication, with long-term current use of insulin ([facility]) Take 1 capsule (0.4 mg total) by mouth daily. 30 capsule 1 Active B-D ULTRAFINE III SHORT PEN 31G X 8 MM MiscIndications:T ype 2 diabetes mellitus without complication, with long-term current use of insulin ([facility]) Check blood glucose at least 3 times daily and once in the morning fasting. For diabetes mellitus ICD E 11.9 50 pen needle 1 Active Insulin Pen Needle 31G X 8 MM MiscIndications:T ype 2 diabetes mellitus without complication, with long-term current use of insulin ([facility]) Check blood glucose at least 3 times daily and once in the morning fasting. For diabetes mellitus ICD E 11.9 50 pen needle 1 Active Blood Glucose Monitoring Suppl (FreeStyle Lite) DeviceIndications :Type 2 diabetes mellitus without complication, with long-term current use of insulin ([facility]) Check blood glucose at least 3 times daily and once in the morning fasting. For diabetes mellitus ICD E 11.9 1 Device 1 Active FREESTYLE LITE stripIndications: Type 2 diabetes mellitus without complication, with long-term current use of insulin ([facility]) Check blood glucose at least 3 times daily and once in the morning fasting. For diabetes mellitus ICD E 11.9 100 test strip 1 Active FreeStyle Lancets lancetIndications :Type 2 diabetes mellitus without complication, with long-term current use of insulin ([facility]) Check blood glucose at least [...] Influenza Vaccine 10/10/2024 COVID-19 Vaccine (1 - 2024-2 6 season) 2024 Procedures Procedure Name Priority Date/Time [...] Maintenance Insurance MEDICAID OUT OF STATE [facility] Advance Directives * Full Code (Latest Code Status on File) Date Activated Date Inactivated Comments 04/02/2020 7:54 PM Healthcare Agents on File Name Relationship Healthcare Agent Relationshi p Communication Fang Shaan Parent 4. Next of Kin ( Spouse, Adult Child, Parent, Adult Sibling, Grandparent) Care Teams Rackman Relationship Specialty Start Date End Date Julio Carter MD [address] [place] [address] [address] [place] [address] PCP - General Internal Medicine 04/02/20
--- OUTSIDE RECORDS SUMMARY | 2025-02-25 16:46 | XMS_ITS | Clinical Summary ---
Author Organization [employer] [facility] Address [address] [facility] [address] [place] [address] Care Team Providers Care Labor Contractor Name Role Phone Unavailable Primary Care Provider [...] (1 of 2 - PCV) 05/27/1991 RSV Patients and Pa tients Aged 60 years or older (1 - Risk 50-74 years 1-dose series) 2022 Zoster Vaccines (1 of 2) 2022 Tobacco Screening 03/23/2024 03/23/2023 COVID-19 Vaccine (1 - 2024-2 6 season) 2024 Influenza Vaccine (#1) 2024 HIB [...] patient's age to complete this topic Insurance Homeless [place] [id number] [place] * Guarantor: Herman Mcintosh Account Type Relation to Patient Date of Phone Billing Address Personal/Family Self [facility] [place] [id number] * Guarantor: Herman Mcintosh Account Type Relation to Patient Date of Phone Billing Address Personal/Family Self [facility] [place] [id number] * Guarantor: Herman Mcintosh Account Type Relation to Patient Date of Phone Billing Address Personal/[place] [address] * Guarantor: Herman Mcintosh Account Type Relation to Patient Date of Phone Billing Address Personal/Family Self [facility] [place] [phone]
== END 2025-02-25 13:36 | disposition home or self-care (01) ==
LOC: HO.HMCH 12:37
PROVIDERS: PCP Internal Medicine; Visit Provider Internal Medicine
DX: E11.65 Type 2 diabetes mellitus with hyperglycemia (principal); I48.0 Paroxysmal atrial fibrillation; R56.9 Unspecified convulsions; F19.10 Other psychoactive substance abuse, uncomplicated; E66.01 Morbid (severe) obesity due to excess calories; Z68.41 Body mass index [BMI] 40.0-44.9, adult; R60.0 Localized edema; I89.0 Lymphedema, not elsewhere classified; I10 Essential (primary) hypertension; J45.20 Mild intermittent asthma, uncomplicated; M51.360 Other intervertebral disc degeneration, lumbar region with discogenic back pain only; M17.0 Bilateral primary osteoarthritis of knee; N40.1 Benign prostatic hyperplasia with lower urinary tract symptoms; R35.0 Frequency of micturition; N52.9 Male erectile dysfunction, unspecified; G47.00 Insomnia, unspecified; F41.9 Anxiety disorder, unspecified; F33.9 Major depressive disorder, recurrent, unspecified

== ENCOUNTER 2025-02-25 12:36 | Outpatient (REF) | payer OTHER, SELFPAY ==
[2025-02-25 14:38] LABS: MANUAL DIFF FLAG NO
[2025-02-25 15:26] LABS: Hematocrit 44.8 % (42.0-52.0); Hemoglobin 14.8 g/dl (14.0-18.0); Imm Gran Abs Auto 0.05 X10*3/uL (0.00-0.03); Imm Gran Pct Auto 0.5 % (0.0-0.4); Lymphocytes Absolute Auto 1.5 X10*3/uL (1.2-4.9); Mean Corpuscular HGB Conc 33.0 g/dl (31.0-36.0); Mean Corpuscular Hemoglobin 29.2 pg (27.0-33.0); Mean Corpuscular Volume 88.4 fL (80.0-98.0); NRBC Abs Auto 0.000 X10*3/uL (0.0-0.012); NRBC Pct Auto 0.0 /100WBC (0.0-0.2); Platelet Count 321 X10*3/uL (160-400); Red Blood Count 5.07 X10*6/uL (4.60-5.80); White Blood Count 9.7 X10*3/uL (4.8-10.8)
[2025-02-25 15:43] LABS: Appearance Urine Clear; Glucose Urine UA >=1000 mg/dL (Negative); PH 5.5 (5.0-9.0); Specific Gravity - Urine >= 1.030 (1.005-1.025); UMIC TRIGGER UACC YES
[2025-02-25 16:06] LABS: Alanine Aminotransferase 38 U/L (0-40); Albumin Level 4.3 g/dL (3.5-5.0); Alkaline Phosphatase 120 U/L (39-117); Anion Gap 12 (12-20); Aspartate Amino Transferase 28 U/L (5-37); Blood Urea Nitrogen 20 mg/dL (9-16); Calcium 9.3 mg/dL (8.4-10.2); Carbon Dioxide 28 mmol/L (22-29); Chloride 102 mmol/L (96-108); Cholesterol 173 mg/dL (<200); Estimated Glomerular Filt Rate > 60; HDL Cholesterol 46 mg/dL (>40); Potassium 4.5 mmol/L (3.3-5.1); Sodium 137 mmol/L (135-145); Total Protein 7.6 g/dL (6.5-8.0); Triglycerides 152 mg/dL (<150)
[2025-02-25 16:29] LABS: Folate 10.8 ng/mL (> or = 4.0); Vitamin B12 627 pg/mL (200-900)
[2025-02-25 16:57] LABS: Microalbum/Creatinine Ratio Ur 123.9 ug/mg cr (<30)
--- OUTSIDE RECORDS SUMMARY | 2025-02-25 19:05 | XMS_ITS | Clinical Summary ---
Author Organization [address] [facility] Address [address] [place] [address] Phone Care Team Providers Care Firing Pin Gauger Name Role Phone Julio Carter MD Primary Care Provider [phone] Social History Tobacco Use Types Packs/Day Years Used Date Smoking Tobacco: Never Assessed Sex and Gender Information Value Date Recorded Sex Assigned at Not on file Legal Sex Male 5:41 AM EST Gender Identity Not on file Sexual Orientation Not on file Plan of Treatment Health Maintenance Due Date Last Done Comments Colorectal Cancer Screening: Colonoscopy 1972 DTaP,Tdap,and Td Vaccines (1 - Tdap) 05/27/1991 Hepatitis B Vaccines (1 of 3 - 19+ 3-dose series) 05/27/1991 Pneumococcal Vaccine: 50+ Ye ars (1 of 2 - PCV) 05/27/1991 RSV Immunization Adult Patie nts (1 - Risk 50-74 years 1-dose series) 2022 Zoster Vaccines (1 of 2) 2022 Depression Screening 03/12/2024 Cholesterol Screening (Lipid Panel) 09/16/2024 HIV Screening 09/16/2024 Hepatitis C Screening 09/16/2024 Social Influencers of Health Screening 09/16/2024 COVID-19 Vaccine (1 - 2024-2 6 season) [...] patient's age to complete this topic Insurance [facility] Care Teams Firing Pin Gauger Relationship Specialty Start Date End Date Julio Carter MD [address] [place] [address] [address] [place] PCP - General Internal Medicine 09/16/24
== END 2025-02-25 12:37 | disposition home or self-care (01) ==
LOC: HO.LAB 12:36
PROVIDERS: PCP Internal Medicine; Visit Provider Internal Medicine
DX: E11.65 Type 2 diabetes mellitus with hyperglycemia (principal); E53.8 Deficiency of other specified B group vitamins; D64.9 Anemia, unspecified; E78.00 Pure hypercholesterolemia, unspecified; E55.9 Vitamin D deficiency, unspecified; R30.0 Dysuria; R60.0 Localized edema; I89.0 Lymphedema, not elsewhere classified; I10 Essential (primary) hypertension; I48.0 Paroxysmal atrial fibrillation; R56.9 Unspecified convulsions; J45.20 Mild intermittent asthma, uncomplicated; M51.360 Other intervertebral disc degeneration, lumbar region with discogenic back pain only; M17.0 Bilateral primary osteoarthritis of knee; N40.1 Benign prostatic hyperplasia with lower urinary tract symptoms; R35.0 Frequency of micturition; F19.10 Other psychoactive substance abuse, uncomplicated; N52.9 Male erectile dysfunction, unspecified; G47.00 Insomnia, unspecified; F33.9 Major depressive disorder, recurrent, unspecified; F41.9 Anxiety disorder, unspecified; E66.01 Morbid (severe) obesity due to excess calories; Z68.41 Body mass index [BMI] 40.0-44.9, adult
CPT/HCPCS: 36415; 80053; 80061; 81001; 82043; 82306; 82570; 82607; 82746; 83036; 84443; 85025; 96127; 99212

== ENCOUNTER 2025-02-25 14:48 | Outpatient (REF) | payer OTHER, SELFPAY ==
--- NOTE | ~2025-02-25 | US_ITS ---
EXAMINATION: US TRIPLEX LOWER EXTREMITY, BILATERAL CLINICAL INFORMATION: Bilateral lower extremity edema. COMPARISON: 01/23/2023, 12/08/2021. TECHNIQUE: Color-flow triplex imaging with spectral analysis and compression Doppler were performed on the bilateral lower extremities. FINDINGS: Respiratory variation, normal compression and augmented flow are noted throughout the bilateral lower extremities. The visualized common femoral vein, superficial femoral vein, profunda femoral vein, popliteal vein and posterior tibial venous segments show no evidence of deep venous thrombosis bilaterally. The peroneal veins could not be well visualized due to edema. There is no Angel's cyst. There are reactive appearing lymph nodes in the bilateral groins. US/US venous duplex LE BI IMPRESSION: No evidence of deep venous thrombosis involving the bilateral lower extremities. Electronically signed by: Kalin Henry MD 02/25/2025 03:29 PM JEREMIAH
== END 2025-02-25 14:49 | disposition home or self-care (01) ==
LOC: HO.US 14:48
PROVIDERS: Visit Provider Internal Medicine
DX: R60.0 Localized edema (principal); I48.0 Paroxysmal atrial fibrillation
CPT/HCPCS: 93970

== ENCOUNTER → 2025-02-25 14:52 | Outpatient (BNV) | payer OTHER, SELFPAY | PROVIDERS: Visit Provider Radiology Diagnostic Radiology | DX: S81.802A Unspecified open wound, left lower leg, initial encounter (principal) | CPT/HCPCS: 93970 ==

== ENCOUNTER 2025-03-04 21:23 | Emergency (ER) | payer OTHER, SELFPAY ==
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
[2025-03-04 21:47] VITALS: BP 152/94; BP 169/80; PULSE 91; PULSE 98; RESP 17; TEMP 36.8; O2SAT 98; BMI 43.8
--- OUTSIDE RECORDS SUMMARY | 2025-03-04 22:20 | XMS_ITS | Clinical Summary ---
Author Organization [facility] Address [address] [place] [address] Care Team Providers Care Fish Tender Name Role Phone Julio Carter MD Primary Care Provider [phone] Allergies No known active allergies Medications insulin glargine, BASAGLAR KWIKPEN, 100 UNIT/ML pen injectionIndicati ons:Type 2 diabetes mellitus without complication, with long-term current use of insulin ([facility]) Inject 30 Units under the [...] long-term current use of insulin ([facility]) Inject 0.75 mg under the skin once a week. Every sunday 2 mL 1 Active amLODIPine (NORVASC) 5 MG tabletIndications :Type 2 diabetes mellitus without complication, with long-term current use of insulin ([facility]),Essential hypertension Take 1 tablet (5 mg total) by mouth daily. 30 tablet 1 Active lisinopril (PRINIVIL,ZeSTRIL ) 30 MG tabletIndications :Type 2 diabetes mellitus without complication, with long-term current use of insulin ([facility]),Essential hypertension Take 1 tablet (30 mg total) by mouth daily. 30 tablet 1 Active metoPROLOL TARTRATE (LOPRESSOR) 50 MG tabletIndications :Paroxysmal atrial fibrillation (HCC),Type 2 diabetes mellitus without complication, with long-term current use of insulin ([facility]),Essential hypertension Take 1 tablet (50 mg total) by mouth every 12 (twelve) hours around the clock. 60 tablet 1 Active busPIRone (BUSPAR) 30 MG tabletIndications :Suicidal behavior without attempted self-injury,Type 2 diabetes mellitus without complication, with long-term current use of insulin ([facility]) Take 1 tablet (30 mg total) by mouth 3 (three) times a day. 90 tablet 1 Active traMADol (ULTRAM) 50 MG tabletIndications :Type 2 diabetes mellitus without complication, with long-term current use of insulin ([facility]) Take 1 tablet (50 mg total) by mouth 3 (three) times a day as needed for moderate pain or severe pain. For pain 15 tablet 1 Active albuterol (PROVENTIL HFA; VENTOLIN HFA) 108 (90 Base) MCG/ACT inhalerIndication s:Type 2 diabetes mellitus without complication, with long-term current use of insulin ([facility]) Inhale 2 puffs 4 times daily (every 6 hours) as needed for wheezing or shortness of breath. 1 Inhaler 1 Active hydrOXYzine HCl (ATARAX) 25 MG tabletIndications :Type 2 diabetes mellitus without complication, with long-term current use of insulin ([facility]) Take 1 tablet (25 mg total) by mouth 3 (three) times a day as needed for itching or anxiety. 30 tablet 1 Active escitalopram (LEXAPRO) 20 MG tabletIndications :Type 2 diabetes mellitus without complication, with long-term current use of insulin ([facility]) Take 1 tablet (20 mg total) by mouth daily. 30 tablet 1 Active apixaban (ELIQUIS) 5 MG tabletIndications :Paroxysmal atrial fibrillation (HCC),Type 2 diabetes mellitus without complication, with long-term current use of insulin ([facility]) Take 1 tablet (5 mg total) by mouth every 12 (twelve) hours around the clock. 60 tablet 1 Active ALPRAZolam (XANAX) 2 MG tabletIndications :Suicidal behavior without attempted self-injury,Type 2 diabetes mellitus without complication, with long-term current use of insulin ([facility]) Take 1 tablet (2 mg total) by mouth nightly as needed for anxiety. 5 tablet 1 Active lidocaine (LIDODERM) 5 % patchIndications: Type 2 diabetes mellitus without complication, with long-term current use of insulin ([facility]) Place 1 patch on the skin daily. Apply patch and leave on for 12 hours then remove. Patch may remain on skin for 12 hours per day. 30 patch 1 Active diclofenac (VOLTAREN) 1 % gelIndications:Ty pe 2 diabetes mellitus without complication, with long-term current use of insulin ([facility]) Apply 2 g topically 2 (two) times a day as needed for pain or muscle/joint pain. 100 g 1 Active FREESTYLE LITE stripIndications: Type 2 diabetes mellitus without complication, with long-term current use of insulin ([facility]) 100 test strips by Other (specify) route 3 (three) times a day before meals. Use as instructed 100 test strip 1 Active tamsulosin (FLOMAX) 0.4 MG capsuleIndication s:Type 2 diabetes mellitus without complication, with long-term current use of insulin ([facility]) Take 1 capsule (0.4 mg total) by mouth daily. 30 capsule 1 Active B-D ULTRAFINE III SHORT PEN 31G X 8 MM MiscIndications:T ype 2 diabetes mellitus without complication, with long-term current use of insulin ([facility]) Check blood glucose at least 3 times daily and once in the morning fasting. For diabetes mellitus ICD E 11.9 50 pen needle 1 Active Insulin Pen Needle 31G X 8 MM MiscIndications:T ype 2 diabetes mellitus without complication, with long-term current use of insulin ([facility]) Check blood glucose at least 3 times daily and once in the morning fasting. For diabetes mellitus ICD E 11.9 50 pen needle 1 Active Blood Glucose Monitoring Suppl (FreeStyle Lite) DeviceIndications :Type 2 diabetes mellitus without complication, with long-term current use of insulin ([facility]) Check blood glucose at least 3 times daily and once in the morning fasting. For diabetes mellitus ICD E 11.9 1 Device 1 Active FREESTYLE LITE stripIndications: Type 2 diabetes mellitus without complication, with long-term current use of insulin ([facility]) Check blood glucose at least 3 times daily and once in the morning fasting. For diabetes mellitus ICD E 11.9 100 test strip 1 Active FreeStyle Lancets lancetIndications :Type 2 diabetes mellitus without complication, with long-term current use of insulin ([facility]) Check blood glucose at least [...] Health Maintenance Insurance [place] [facility] [place] * Full Code (Latest Code Status on File) Date Activated Date Inactivated Comments 04/02/2020 7:54 PM Healthcare Agents on File Name Relationship Healthcare Agent Relationshi p Communication Fang Shaan Parent 4. Next of Kin ( Spouse, Adult Child, Parent, Adult Sibling, Grandparent) Care Teams Fish Tender Relationship Specialty Start Date End Date Julio Carter MD [address] [place] [address] [address] [place] [address] PCP - General Internal Medicine 04/02/20
--- OUTSIDE RECORDS SUMMARY | 2025-03-04 22:20 | XMS_ITS | Encounter Summary ---
Author Organization [employer] Address [address] [place] [address] Care Team Providers Care Passenger Tire Builder Name Role Phone Unavailable Primary Care Provider Unavailabl e Reason for Visit * Reason Onset Date Comments medication 07/12/2022 Appointment 07/12/2022 Encounter Details Date Type Department Care Team (Late st Contact Info) Description 07/12/2022 Telephone [facility] [address] [place] [address] Storm Maciel DDS [address] [place] [address] medication; Appointment Social History Tobacco Use Types [...]
--- OUTSIDE RECORDS SUMMARY | 2025-03-04 22:20 | XMS_ITS | Clinical Summary ---
Author Organization [facility] Address [address] [place] [address] Phone Care Team Providers Care Schedule Supervisor Name Role Phone Julio Carter MD Primary Care Provider [phone] Social History Tobacco Use Types Packs/Day Years [...] patient's age to complete this topic Insurance [facility] Care Teams Schedule Supervisor Relationship Specialty Start Date End Date Julio Carter MD [address] [place] [address] [address] [place] PCP - General Internal Medicine 09/16/24
--- OUTSIDE RECORDS SUMMARY | 2025-03-04 22:20 | XMS_ITS | Clinical Summary ---
Author Organization [employer] [facility] Address [address] [facility] 7t [place] [address] Care Team Providers Care Patent Prosecution Paralegal Name Role Phone Unavailable Primary Care Provider [...] complete this topic Insurance Homeless [place] [id number] [place] * Guarantor: Herman Mcintosh Account Type Relation to Patient Date of Phone Billing Address Personal/Family Self [facility] [place] [id number] * Guarantor: Herman Mcintosh Account Type Relation to Patient Date of Phone Billing Address Personal/Family Self [facility] [place] [id number] * Guarantor: Herman Mcintosh Account Type Relation to Patient Date of Phone Billing Address Personal/[place] [id number] * Guarantor: Herman Mcintosh Account Type Relation to Patient Date of Phone Billing Address Personal/Family Self [facility] [place] [id number]
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
[2025-03-05 00:52] VITALS: BP 148/78; PULSE 88; RESP 19; TEMP 36.8; O2SAT 95
== END 2025-03-05 00:53 | disposition home or self-care (01) ==
PROVIDERS: Emergency Provider Emergency Medicine; PCP Internal Medicine
DX: S70.01XA Contusion of right hip, initial encounter (principal); V03.10XA Pedestrian on foot injured in collision with car, pick-up truck or van in traffic accident, initial encounter; M25.571 Pain in right ankle and joints of right foot; M25.562 Pain in left knee; M25.561 Pain in right knee; Y93.01 Activity, walking, marching and hiking; Y92.414 Local residential or business street as the place of occurrence of the external cause; Y99.9 Unspecified external cause status; E11.9 Type 2 diabetes mellitus without complications; I10 Essential (primary) hypertension; F19.10 Other psychoactive substance abuse, uncomplicated; Z79.4 Long term (current) use of insulin; Z79.84 Long term (current) use of oral hypoglycemic drugs; Z79.899 Other long term (current) drug therapy
CPT/HCPCS: 73502; 73560; 73610; 99283

== ENCOUNTER → 2025-03-04 21:39 | Outpatient (BNV) | payer OTHER, SELFPAY | PROVIDERS: Emergency Provider Emergency Medicine; PCP Internal Medicine; Visit Provider General Practice | DX: M79.604 Pain in right leg (principal); M25.571 Pain in right ankle and joints of right foot; M25.561 Pain in right knee; R22.43 Localized swelling, mass and lump, lower limb, bilateral; V03.10XA Pedestrian on foot injured in collision with car, pick-up truck or van in traffic accident, initial encounter | CPT/HCPCS: 73502; 73560; 73610 ==